=== PATIENT | male | born 1975 | race Caucasian/White ===

== ENCOUNTER 2017-11-02 11:14 | Outpatient (RCR) | payer MEDICAID, SELFPAY ==
[2017-11-02 12:16] VITALS: BP 155/108; PULSE 85; RESP 16; TEMP 35.7; BMI 72.1
--- NOTE | 2017-11-02 17:54 | PCM.WC.HP ---
(1) Super obesity Status: Acute Current Visit: Yes Code(s): E66.9 - Obesity, unspecified (2) Chronic acquired lymphedema Status: Acute Current Visit: Yes Code(s): I89.0 - Lymphedema, not elsewhere classified (3) CHF (congestive heart failure) Status: Acute Current Visit: Yes Code(s): I50.9 - Heart failure, unspecified (4) CAD (coronary artery disease) Status: Acute Current Visit: No Code(s): I25.10 - Atherosclerotic heart disease of [place] coronary artery without angina pectoris (5) Sleep apnea Status: Acute Current Visit: No Code(s): G47.30 - Sleep apnea, unspecified (6) Peripheral arterial disease Status: Acute Current Visit: Yes Code(s): I73.9 - Peripheral vascular disease, unspecified History of Present Illness Date of Service: 11/02/17 Chief Complaint: Chronic severe bilateral lower extremity swelling with ? ulcers. History of Wound: Mr. Bobby is a 42yo with Morbid Obesity and Chronic severe bilateral lymph edema who is here to establish care/transfer care. He previosuly followed up at the wound center in [facility] however, this was recently closed. He reports a history of lymphedema spanning several years and has tried 3m wraps and specialized compression stockings without much improvement. He states that attempts had been made in the past to get a lymphedema pump however, for unclear reasons, this has not been possible. During the course of his lymphedema, he has had several ulcers which have been managed at the wound center. Most recent per patient was a copule of weeks ago and it was managed with aquacel silver. He does not recollect any recent venous or vascular studies done. He denies prior follow up with a vascular or vein specialist. He denies any acute complaints at this time. Past Medical History Allergies/Adverse Reactions: Allergies Penicillins Allergy (Verified 11/02/17 12:45) Unknown Home Medications: Ambulatory Orders Medication Instructions Recorded ALPRAZolam [Xanax] 0.125 mg PO TID PRN PRN 11/02/17 Furosemide [Lasix] mg PO DAILY 11/02/17 Hydrocodone Bitart/Apap 5-325 1 tablet PO Q6H PRN PRN 11/02/17 [[place] 5MG-325MG] Meloxicam [Mobic] mg PO 11/02/17 Omeprazole [Prilosec] 20 mg PO DAILY 11/02/17 Sertraline HCl [Zoloft] mg PO DAILY 11/02/17 Smoking Status: Never smoker Review of Systems Constitutional: Denies: Anorexia, Chills, Fever Eyes: Denies: Blurred vision, Pain, Redness HEENT: Denies: Difficulty Hearing, Difficulty Swallowing Cardiovascular: Denies: Chest Pain, Chest Tightness Respiratory: Denies: Cough, Hemoptysis Gastrointestinal: Denies: Hematemesis, Vomiting Skin: Denies: Jaundice Neurological: Denies: Change in Speech, Difficulty swallowing, Tremor - Physical Exam Vital Signs Temp Pulse Resp BP 96.2 F L 85 16 155/108 H 11/02/17 12:16 11/02/17 12:16 11/02/17 12:16 11/02/17 12:16 General: Alert, Oriented x3, Cooperative HEENT: Atraumatic, Normocephalic Oral: Moist Mucosa Neck: Supple Lungs: Normal air movement Cardiovascular: Regular rate, Regular Rhythm, Normal S1, Normal S2 Abdomen: Non Tender, Obese, - - Umbilical hernia Extremities: No cyanosis, Edema Wound Measurements and Assessment WC - Nurse 1 - General Ulcer Measurement Start: 11/02/17 11:46 Freq: Status: Active Protocol: Activity Type Activity Date Activity User E-Sign Co-Sign Detail Recorded Client Recorded Date Recorded By Document 11/02/17 12:16 [facility] [id number] 11/02/17 12:34 [facility] 11/02/17 12:16 Wound Center Nurse 1 [Ulcer Assessment] #1- BLE LYMPHEDEMA -Combined with other wound No [Edema Assessment] -Lower Limb Edema Present Yes -Right Calf (cm) 80 -Right Ankle (cm) 54.5 -Left Calf (cm) 87 -Left Ankle (cm) 56 Neurological: Cranial nerves II-XII grossly intact Debridement Note No debridement was completed today Assessment/Plan Active Problems Chronic acquired lymphedema (Acute) CHF (congestive heart failure) (Acute) Peripheral arterial disease (Acute) Super obesity (Acute) Assessment: Chronic severe bilateral lymphedema. Supermorbid Obesity. Plan: Mr. Bobby has severe bilateral chronic lyphmedema complicated by his super obesity. He apparently has had recurrent lower extremity ulcers however none was obviously present at this time. Due to his lower extremity anatomy, he may as well have an ulcer however as stated earlier, none apparent. I will order vascular and venous studies as patient states that he has had none recently. Records requested from previous wound center. Will refer to a Vascular/vein specialist. I believe patient might benefit from a lymphedema pump. Bilteral standard 3M wraps for now. Follow up on monday for a nurse visit. Follow up in 1 week with me.
--- NOTE | 2017-11-02 18:05 | HP.PCM_ITS ---
(1) Super obesity Status: Acute Current Visit: Yes Code(s): E66.9 - Obesity, unspecified (2) Chronic acquired lymphedema Status: Acute Current Visit: Yes Code(s): I89.0 - Lymphedema, not elsewhere classified (3) CHF (congestive heart failure) Status: Acute Current Visit: Yes Code(s): I50.9 - Heart failure, unspecified (4) CAD (coronary artery disease) Status: Acute Current Visit: No Code(s): I25.10 - Atherosclerotic heart disease of [place] coronary artery without angina pectoris (5) Sleep apnea Status: Acute Current Visit: No Code(s): G47.30 - Sleep apnea, unspecified (6) Peripheral arterial disease Status: Acute Current Visit: Yes Code(s): I73.9 - Peripheral vascular disease, unspecified History of Present Illness Date of Service: 11/02/17 Chief Complaint: Chronic severe bilateral lower extremity swelling with ? ulcers. History of Wound: Mr. Bobby is a 42yo with Morbid Obesity and Chronic severe bilateral lymph edema who is here to establish care/transfer care. He previosuly followed up at the wound center in [facility] however, this was recently closed. He reports a history of lymphedema spanning several years and has tried 3m wraps and specialized compression stockings without much improvement. He states that attempts had been made in the past to get a lymphedema pump however, for unclear reasons, this has not been possible. During the course of his lymphedema, he has had several ulcers which have been managed at the wound center. Most recent per patient was a copule of weeks ago and it was managed with aquacel silver. He does not recollect any recent venous or vascular studies done. He denies prior follow up with a vascular or vein specialist. He denies any acute complaints at this time. Past Medical History Allergies/Adverse Reactions: Allergies Penicillins Allergy (Verified 11/02/17 12:45) Unknown Home Medications: Ambulatory Orders Medication Instructions Recorded ALPRAZolam [Xanax] 0.125 mg PO TID PRN PRN 11/02/17 Furosemide [Lasix] mg PO DAILY 11/02/17 Hydrocodone Bitart/Apap 5-325 1 tablet PO Q6H PRN PRN 11/02/17 [[place] 5MG-325MG] Meloxicam [Mobic] mg PO 11/02/17 Omeprazole [Prilosec] 20 mg PO DAILY 11/02/17 Sertraline HCl [Zoloft] mg PO DAILY 11/02/17 Smoking Status: Never smoker Review of Systems Constitutional: Denies: Anorexia, Chills, Fever Eyes: Denies: Blurred vision, Pain, Redness HEENT: Denies: Difficulty Hearing, Difficulty Swallowing Cardiovascular: Denies: Chest Pain, Chest Tightness Respiratory: Denies: Cough, Hemoptysis Gastrointestinal: Denies: Hematemesis, Vomiting Skin: Denies: Jaundice Neurological: Denies: Change in Speech, Difficulty swallowing, Tremor - Physical Exam Vital Signs Temp Pulse Resp BP 96.2 F L 85 16 155/108 H 11/02/17 12:16 11/02/17 12:16 11/02/17 12:16 11/02/17 12:16 General: Alert, Oriented x3, Cooperative HEENT: Atraumatic, Normocephalic Oral: Moist Mucosa Neck: Supple Lungs: Normal air movement Cardiovascular: Regular rate, Regular Rhythm, Normal S1, Normal S2 Abdomen: Non Tender, Obese, - - Umbilical hernia Extremities: No cyanosis, Edema Wound Measurements and Assessment WC - Nurse 1 - General Ulcer Measurement Start: 11/02/17 11:46 Freq: Status: Active Protocol: Activity Type Activity Date Activity User E-Sign Co-Sign Detail Recorded Client Recorded Date Recorded By Document 11/02/17 12:16 [facility] [id number] 11/02/17 12:34 [facility] 11/02/17 12:16 Wound Center Nurse 1 [Ulcer Assessment] #1- BLE LYMPHEDEMA -Combined with other wound No [Edema Assessment] -Lower Limb Edema Present Yes -Right Calf (cm) 80 -Right Ankle (cm) 54.5 -Left Calf (cm) 87 -Left Ankle (cm) 56 Neurological: Cranial nerves II-XII grossly intact Debridement Note No debridement was completed today Assessment/Plan Active Problems Chronic acquired lymphedema (Acute) CHF (congestive heart failure) (Acute) Peripheral arterial disease (Acute) Super obesity (Acute) Assessment: Chronic severe bilateral lymphedema. Supermorbid Obesity. Plan: Mr. Bobby has severe bilateral chronic lyphmedema complicated by his super obesity. He apparently has had recurrent lower extremity ulcers however none was obviously present at this time. Due to his lower extremity anatomy, he may as well have an ulcer however as stated earlier, none apparent. I will order vascular and venous studies as patient states that he has had none recently. Records requested from previous wound center. Will refer to a Vascular/vein specialist. I believe patient might benefit from a lymphedema pump. Bilteral standard 3M wraps for now. Follow up on monday for a nurse visit. Follow up in 1 week with me.
== END 2017-11-08 23:59 ==
LOC: WC 11:14
PROVIDERS: Visit Provider Internal Medicine
DX: I73.9 Peripheral vascular disease, unspecified (principal); I89.0 Lymphedema, not elsewhere classified; E66.01 Morbid (severe) obesity due to excess calories; Z68.45 Body mass index [BMI] 70 or greater, adult; Z71.3 Dietary counseling and surveillance; I50.9 Heart failure, unspecified; I25.10 Atherosclerotic heart disease of native coronary artery without angina pectoris; G47.30 Sleep apnea, unspecified; M79.89 Other specified soft tissue disorders; Z79.899 Other long term (current) drug therapy
CPT/HCPCS: 29581; 99204; G0463

== ENCOUNTER 2017-11-16 12:00 | Outpatient (RCR) | payer MEDICAID, SELFPAY ==
[2017-11-09 01:16] VITALS: PULSE 85; RESP 16; TEMP 35.7
[2017-11-09 08:41] VITALS: BP 140/82; PULSE 91; RESP 20; TEMP 36.4
--- NOTE | 2017-11-09 16:40 | PCM.WC.PN ---
(1) Ulcer of left lower extremity Status: Acute Current Visit: Yes Qualifiers: Non-pressure ulcer stage: limited to breakdown of skin Qualified Code(s): L97.921 - Non-pressure chronic ulcer of unspecified part of left lower leg limited to breakdown of skin Code(s): L97.929 - Non-pressure chronic ulcer of unspecified part of left lower leg with unspecified severity (2) Chronic acquired lymphedema Status: Acute Current Visit: No Code(s): I89.0 - Lymphedema, not elsewhere classified (3) Super obesity Status: Acute Current Visit: No Code(s): E66.9 - Obesity, unspecified Type of Wound Date of Service: 11/09/17 Chief Complaint: Chronic severe bilateral lower extremity swelling with ? ulcers. History of Wound: Mr. Bobby is a 42yo with Morbid Obesity and Chronic severe bilateral lymph edema who is here to establish care/transfer care. He previosuly followed up at the wound center in [facility] however, this was recently closed. He reports a history of lymphedema spanning several years and has tried 3m wraps and specialized compression stockings without much improvement. He states that attempts had been made in the past to get a lymphedema pump however, for unclear reasons, this has not been possible. During the course of his lymphedema, he has had several ulcers which have been managed at the wound center. Most recent per patient was a copule of weeks ago and it was managed with aquacel silver. He does not recollect any recent venous or vascular studies done. He denies prior follow up with a vascular or vein specialist. He denies any acute complaints at this time. Progress of Wound: New left lower extremity ulcer noted from previous scabbed area. - Physical Exam Vital Signs Temp Pulse Resp BP 97.5 F L 91 20 H 140/82 H 11/09/17 08:41 11/09/17 08:41 11/09/17 08:41 11/09/17 08:41 General: Alert, Oriented x3, Cooperative, No apparent distress HEENT: Atraumatic, Normocephalic Oral: Moist Mucosa Neck: Supple Lungs: Normal air movement Cardiovascular: Regular rate Abdomen: Obese Extremities: Edema Skin: Ulcer/ Wound Wound Measurements and Assessment WC - Nurse 1 - General Ulcer Measurement Start: 11/09/17 08:41 Freq: Status: Active Protocol: Activity Type Activity Date Activity User E-Sign Co-Sign Detail Recorded Client Recorded Date Recorded By Document 11/09/17 08:41 RB [id number] 11/09/17 08:52 RB 11/09/17 08:41 Wound Center Nurse 1 [Edema Assessment] -Lower Limb Edema Present Yes -Right Calf (cm) 70.5 -Right Ankle (cm) 43.5 -Left Calf (cm) 85.5 -Left Ankle (cm) 54.5 Neurological: Cranial nerves II-XII grossly intact Psych/Mental Status: Normal Affect Debridement Note Wound debrided: Left Lower extremity circumferental ulcer Wound Grade/Stage: Stage I Type of Debridement: Excisional debridement Anesthesia Used: 4% Lidocaine Solution Depth: Down to and including healthy tissue Percentage of wound debrided: 100 Instrument Used: 5mm curette Tissue Removed: Slough and biofilm Severity: Limited To Skin Breakdown Amount of bleeding with debridement: Mild Bleeding Controlled with: Pressure Patient tolerated procedure well Assessment/Plan Active Problems Ulcer of left lower extremity (Acute) Assessment: Chronic severe bilateral lymphedema. Supermorbid Obesity. Left lower extremity ulcer Plan: New opening of a previously scabbed left lower extremity ulcer. Significant foul smelling discharge noted between skin folds of left lower extremity. Cultures taken and debridement done as documented above. Awaiting vascular and venous studies. Also working on referral to a vein/vascular specailist. However, i believe patient also has a component of Lipedema. Aquacel with xeroform covering over ulcerated area. Continue 3M wraps for now. Will initiate process for a lymphedema pump and also referral to a lymphedema clinic. Hygeine discussed. High protein diet/ supplements. Elevate lower extremity when sitted. Follow up in 1 week.
[2017-11-16 12:50] VITALS: BP 162/77; PULSE 85; RESP 18; TEMP 37.2
--- NOTE | 2017-11-16 13:47 | WC ---
instructed per Josselin Henson Rn to help pt with socks and shoes and pt will come back monda y for nurse visit a nd will reschedule vasular studies per self,
--- NOTE | 2017-11-16 15:23 | PCM.WC.PN ---
(1) Ulcer of left lower extremity Status: Acute Current Visit: No Qualifiers: Non-pressure ulcer stage: limited to breakdown of skin Qualified Code(s): L97.921 - Non-pressure chronic ulcer of unspecified part of left lower leg limited to breakdown of skin Code(s): L97.929 - Non-pressure chronic ulcer of unspecified part of left lower leg with unspecified severity (2) Chronic acquired lymphedema Status: Acute Current Visit: Yes Code(s): I89.0 - Lymphedema, not elsewhere classified (3) Super obesity Status: Acute Current Visit: Yes Code(s): E66.9 - Obesity, unspecified Type of Wound Date of Service: 11/16/17 Chief Complaint: Chronic severe bilateral lower extremity swelling with ? ulcers. History of Wound: Mr. Bobby is a 42yo with Morbid Obesity and Chronic severe bilateral lymph edema who is here to establish care/transfer care. He previosuly followed up at the wound center in [facility] however, this was recently closed. He reports a history of lymphedema spanning several years and has tried 3m wraps and specialized compression stockings without much improvement. He states that attempts had been made in the past to get a lymphedema pump however, for unclear reasons, this has not been possible. During the course of his lymphedema, he has had several ulcers which have been managed at the wound center. Most recent per patient was a copule of weeks ago and it was managed with aquacel silver. He does not recollect any recent venous or vascular studies done. He denies prior follow up with a vascular or vein specialist. He denies any acute complaints at this time. Progress of Wound: No significant changes. - Physical Exam Vital Signs Temp Pulse Resp BP 98.9 F 85 18 162/77 H 11/16/17 12:50 11/16/17 12:50 11/16/17 12:50 11/16/17 12:50 General: Alert, Oriented x3, Cooperative, No apparent distress HEENT: Atraumatic, Normocephalic Oral: Moist Mucosa Neck: Supple Lungs: Normal air movement Cardiovascular: Regular rate Extremities: No cyanosis, Edema Wound Measurements and Assessment WC - Nurse 1 - General Ulcer Measurement Start: 11/09/17 08:41 Freq: Status: Active Protocol: Activity Type Activity Date Activity User E-Sign Co-Sign Detail Recorded Client Recorded Date Recorded By Document 11/16/17 12:50 [facility] [id number] 11/16/17 13:03 [facility] 11/16/17 12:50 Wound Center Nurse 1 [Edema Assessment] -Lower Limb Edema Present Yes -Right Calf (cm) 72.3 -Right Ankle (cm) 47.4 -Left Calf (cm) 85.5 -Left Ankle (cm) 52.2 Neurological: Cranial nerves II-XII grossly intact Psych/Mental Status: Normal Affect Debridement Note No debridement was completed today Assessment/Plan Active Problems Chronic acquired lymphedema (Acute) Super obesity (Acute) Assessment: Chronic severe bilateral lymphedema. Supermorbid Obesity. Left lower extremity ulcer Plan: No significant changes in the past week. No ulcers appreciated today however, again this can not be ruled out due to his anatomy. Some reduction in edema size. Most definitely a component of lipedema. Cultures taken at last visit, grew mixed organisms. Will start on ciprofloxacin and flagyl based on sensitivity. Due to his sinificant and chronic lymphedema, i believe patient will be better suited at a lymphedema clinic and a vein spcialist while the [facility] handles any open wounds. Xeroform to skin surface. No 3M wraps available today. Advised to come in for a nurse visit to have his lower extremities wrapped. High protein diet/ supplements. Elevate lower extremity when sitted. Follow up in 1 week.
--- NOTE | 2017-11-16 15:36 | PN.PCM_ITS ---
(1) Ulcer of left lower extremity Status: Acute Current Visit: No Qualifiers: Non-pressure ulcer stage: limited to breakdown of skin Qualified Code(s): L97.921 - Non-pressure chronic ulcer of unspecified part of left lower leg limited to breakdown of skin Code(s): L97.929 - Non-pressure chronic ulcer of unspecified part of left lower leg with unspecified severity (2) Chronic acquired lymphedema Status: Acute Current Visit: Yes Code(s): I89.0 - Lymphedema, not elsewhere classified (3) Super obesity Status: Acute Current Visit: Yes Code(s): E66.9 - Obesity, unspecified Type of Wound Date of Service: 11/16/17 Chief Complaint: Chronic severe bilateral lower extremity swelling with ? ulcers. History of Wound: Mr. Bobby is a 42yo with Morbid Obesity and Chronic severe bilateral lymph edema who is here to establish care/transfer care. He previosuly followed up at the wound center in [facility] however, this was recently closed. He reports a history of lymphedema spanning several years and has tried 3m wraps and specialized compression stockings without much improvement. He states that attempts had been made in the past to get a lymphedema pump however, for unclear reasons, this has not been possible. During the course of his lymphedema, he has had several ulcers which have been managed at the wound center. Most recent per patient was a copule of weeks ago and it was managed with aquacel silver. He does not recollect any recent venous or vascular studies done. He denies prior follow up with a vascular or vein specialist. He denies any acute complaints at this time. Progress of Wound: No significant changes. - Physical Exam Vital Signs Temp Pulse Resp BP 98.9 F 85 18 162/77 H 11/16/17 12:50 11/16/17 12:50 11/16/17 12:50 11/16/17 12:50 General: Alert, Oriented x3, Cooperative, No apparent distress HEENT: Atraumatic, Normocephalic Oral: Moist Mucosa Neck: Supple Lungs: Normal air movement Cardiovascular: Regular rate Extremities: No cyanosis, Edema Wound Measurements and Assessment WC - Nurse 1 - General Ulcer Measurement Start: 11/09/17 08:41 Freq: Status: Active Protocol: Activity Type Activity Date Activity User E-Sign Co-Sign Detail Recorded Client Recorded Date Recorded By Document 11/16/17 12:50 [facility] [id number] 11/16/17 13:03 [facility] 11/16/17 12:50 Wound Center Nurse 1 [Edema Assessment] -Lower Limb Edema Present Yes -Right Calf (cm) 72.3 -Right Ankle (cm) 47.4 -Left Calf (cm) 85.5 -Left Ankle (cm) 52.2 Neurological: Cranial nerves II-XII grossly intact Psych/Mental Status: Normal Affect Debridement Note No debridement was completed today Assessment/Plan Active Problems Chronic acquired lymphedema (Acute) Super obesity (Acute) Assessment: Chronic severe bilateral lymphedema. Supermorbid Obesity. Left lower extremity ulcer Plan: No significant changes in the past week. No ulcers appreciated today however, again this can not be ruled out due to his anatomy. Some reduction in edema size. Most definitely a component of lipedema. Cultures taken at last visit, grew mixed organisms. Will start on ciprofloxacin and flagyl based on sensitivity. Due to his sinificant and chronic lymphedema, i believe patient will be better suited at a lymphedema clinic and a vein spcialist while the [facility] handles any open wounds. Xeroform to skin surface. No 3M wraps available today. Advised to come in for a nurse visit to have his lower extremities wrapped. High protein diet/ supplements. Elevate lower extremity when sitted. Follow up in 1 week.
[2017-11-21 11:35] VITALS: BP 148/103; PULSE 96; RESP 22; TEMP 36.1
== END 2017-12-09 23:59 ==
LOC: WC 12:00
PROVIDERS: Visit Provider Internal Medicine
DX: L97.821 Non-pressure chronic ulcer of other part of left lower leg limited to breakdown of skin (principal); I89.0 Lymphedema, not elsewhere classified; E66.01 Morbid (severe) obesity due to excess calories; Z68.45 Body mass index [BMI] 70 or greater, adult
CPT/HCPCS: 11042; 29581; 87070; 87075; 87077; 87101; 87186; 87205; 99202; 99213; G0463

== ENCOUNTER 2017-12-12 10:22 | Outpatient (RCR) | payer MEDICAID, SELFPAY ==
--- NOTE | 2017-12-14 09:24 | HP.OTEVAL_ITS ---
Patient's Visit Information AYLA JACKSON is a 42 year old M, referred to Occupational Therapy by Brian Johnson MD,, with a diagnosis of LE lymphedema. Date of Evaluation: 12/12/17 Occupational Therapist: Haydee Starks, DEYVIR/Chelsea, CHT - Subjective Subjective: Pt states it has been awhile from when he has had a compression socks- pt states he was seen at the wound center for 3M wraps- pt states he was dx with CHF in his 30s and this is when he started with the lymphedema- pt states he was working with [employer] in the past- but has not had a new set of socks for over a year- pt states at this time he is working. pt states no hx of lymphedema in his family- Pt states his and daughter are RNs and can assist him with wraps to his LE. - Pain left LE 5 Pain Intensity Range: 3, 8 right LE 5 Pain Intensity Range: 1, 3, 8 - Objective Objective/Observation: pt amb with one crutch- demo with pendulum belly- hips externally rotated- with short shuffle steps- pt amb short distance and would stop for a break- - Lymphedema (Circumferential Measure) Ankle: right 50cm left 55cm Lower calf: right 47cm 60cm Largest calf: right 78cm 80cm Below knee: right 76 cm 73cm Above knee: right 100cm 91cm Mid-thigh: right 137 left 127cm - Lower Limb Functional Index Lower Extremity Functional Score: 11 - Rehabilitation General Assessment: Pt demo with multiple large skin folds and masses. Dry thickened skin with pebbly appearence -pitted and darkened- right LE without compression and left with 3M wrap- with appearence of LE size qustioning elephantitis/lymphedema. Pt demo a need for compression 40-50mmHg to assist in mtg of LE limb size- The 3M does not produce enough compression to be effective for pt at this time. pt will need increased compression by alternative compression garments- pt was given compression print out of alternative compression devices - advised to contact his insurance company to see where he needs to order DME from. Pt demo understanding. Pt was advised that it was possible insurance would not cover the garments and it was in his best interest in order to mtg his condition to purchase the garment alternative himself. Pt demo understanding. I expressed to pt that [facility] is not a DME supplier and are not able to bill his insurance or purchase the rec'd compression devices. pt demo understanding that he would need to contact his insurance company. Once pt is able to purchase the compression devices pt to return with family to ensure proper donning/doffing of garments. Due to pts condition he may need skilled facility that would work daily with his lymphedema and use of lymphadema pumps. Rehabilitation Potential: Questionable - Anticipated Interventions Anticipated Interventions: Education re assistive Equipment, Education re Diagnosis, Education re Life-long lymphedema Management, Education re Correct Donning Tech,Care&Wearing Sched Comp Garments, Caregiver Training - Visit Plan General Plan: Pt demo with multiple large skin folds and masses. Dry thickened skin with pebbly appearence -pitted and darkened- right LE without compression and left with 3M wrap- with appearence of LE size qustioning elephantitis/ lymphedema. Pt demo a need for compression 30-40/40-50mmHg to assist in mtg of LE limb size- The 3M does not produce enough compression to be effective for pt at this time. pt will need increased compression by alternative compression garments- pt was given compression print out of alternative compression devices - advised to contact his insurance company to see where he needs to order DME from. Pt demo understanding. Pt was advised that it was possible insurance would not cover the garments and it was in his best interest in order to mtg his condition to purchase the garment alternative himself. Pt demo understanding. I expressed to pt that [facility] is not a DME supplier and are not able to bill his insurance or purchase the rec'd compression devices. pt demo understanding that he would need to contact his insurance company. Once pt is able to purchase the compression devices pt to return with family to ensure proper donning/doffing of garments. TEXT: Thank you for the opportunity to evaluate your patient. For Medicare and Medicare HMO plans, please review the plan of care and approve it. It will need to be FAXED BACK to us at [phone] for Medicare purposes. Please let me know if there are questions or concerns regarding this plan of care. Physician Signature: Date:
--- NOTE | 2018-05-08 09:14 | HP.OT.NRP ---
HP - Discharge Summary - Patient Information AYLA JACKSON was seen in my office for initial evaluation on 12/12/17. The following Plan of Care was established for this patient: - Anticipated Interventions Anticipated Interventions: Education re assistive Equipment, Education re Diagnosis, Education re Life-long lymphedema Management, Education re Correct Donning Tech,Care&Wearing Sched Comp Garments, Caregiver Training This patient was last seen in our office 12/12/17. Pertinent comments regarding their Occupational therapy will appear below: Pt was seen for inital OT eval only- pt did not return for follow up visit and due to time laps in tx pt d/c at this time. At this point I will be discontinuing this patient from occupational therapy. I would be happy to see this patient again in the future if found appropriate by the physician. Thank you! Haydee Starks, OTR/L, CHT
== END 2017-12-12 19:00 | disposition home or self-care (01) ==
LOC: OT 10:22
PROVIDERS: Family Provider Internal Medicine; PCP Internal Medicine; Visit Provider Internal Medicine
DX: I89.0 Lymphedema, not elsewhere classified (principal)
CPT/HCPCS: 97166

== ENCOUNTER 2018-08-09 13:00 | Outpatient (RCR) | payer MEDICAID, SELFPAY ==
[2018-07-12 13:13] VITALS: BP 160/93; PULSE 80; RESP 18; TEMP 37.3; BMI 75.4
--- NOTE | 2018-07-12 17:05 | PCM.WC.HP ---
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 Status: Acute Current Visit: Yes Code(s): L97.922 - Non-pressure chronic ulcer of unspecified part of left lower leg with fat layer exposed (2) Chronic acquired lymphedema Status: Acute Current Visit: Yes Code(s): I89.0 - Lymphedema, not elsewhere classified (3) Chronic diastolic heart failure Status: Chronic Current Visit: No Code(s): I50.32 - Chronic diastolic (congestive) heart failure (4) Super obesity Status: Chronic Current Visit: Yes Code(s): E66.9 - Obesity, unspecified (5) Pulmonary embolism Status: Suspected Current Visit: No Code(s): I26.99 - Other pulmonary embolism without acute cor pulmonale (6) Essential (primary) hypertension Status: Chronic Current Visit: No Code(s): I10 - Essential (primary) hypertension History of Present Illness Date of Service: 07/12/18 Chief Complaint: Chronic severe bilateral lower extremity swelling with two nonhealing ulcers left lower extremity. History of Wound: Mr. Bobby is a 42yo with Morbid Obesity and Chronic severe bilateral lymph edema who who presents to the wound center again for wounds of the left lower extremity. He states that his wounds have been slowly opening on his left lower extremity over the last month or so. He has been using Aquacel silver that he had left over. He states that he was previously seen at the lymphedema clinic and they told him that they could do nothing for him until after he gets his bariatric surgery. Records are not available for review at this time. He is using Desmond wraps and compression wraps to his lower extremities from the knee down for his lymphedema, but due to his anatomy is unable to wrap his thigh lymphedema which is where the ulcers are on the left lower extremity. He does note that he had attempted to have vascular studies in the past, but they are unable to be performed due to his body habitus. He denies any systemic or localized signs of infection at this time. He does state that there is some serous drainage on his dressing changes. The patient otherwise denies any fever, chills, nausea, vomiting, shortness of breath, chest pain or pressure, palpitations, orthopnea, lower extremity edema, syncope or presyncopal episodes. Past Medical History Past Medical History: Chronic Problems (Last Updated 07/10/18 @ 14:27 by Ingrid Hanley) Chronic diastolic heart failure (Chronic) Super obesity (Chronic) Essential (primary) hypertension (Chronic) Allergies/Adverse Reactions: Allergies Penicillins Allergy (Verified 07/05/18 09:03) Unknown Home Medications: Ambulatory Orders Medication Instructions Recorded ALPRAZolam [Xanax] 0.125 mg PO TID PRN PRN 11/02/17 sertraline 100 mg tablet 150 mg PO QDAY #180 tab 02/28/18 furosemide 20 mg tablet 20 mg PO BID #90 tab 05/18/18 lisinopril 20 mg tablet 20 mg PO QDAY #30 tab 05/18/18 omeprazole 20 mg capsule,delayed 20 mg PO DAILY #90 cap 05/18/18 release rivaroxaban 20 mg tablet 20 mg PO DAILY #60 tab 05/18/18 aspirin 81 mg chewable tablet 81 mg PO DAILY 06/15/18 atorvastatin 40 mg tablet 40 mg PO DAILY #90 tab 06/15/18 isosorbide dinitrate 5 mg tablet 5 mg PO BID #60 tab 06/15/18 Smoking Status: Never smoker Review of Systems Constitutional: Denies: Chills, Fever, Weight Change Eyes: Denies: Pain, Vision Change HEENT: Denies: Difficulty Hearing, Difficulty Swallowing, Sinus Congestion Cardiovascular: Reports: Edema - See HPI chronic lymphedema severe. Denies: Chest Pain, Palpitations Respiratory: Denies: Cough, Shortness of Breath Gastrointestinal: Denies: Diarrhea, Nausea, Vomiting Genitourinary: Denies: Dysuria, Hematuria Skin: Reports: Wounds - See HPI Endocrine: Denies: Heat/ Cold Intolerance, Polydipsia, Polyuria Hematologic/ Lymphatic: Denies: Easy Bruising, Easy Bleeding - Physical Exam Vital Signs Temp Pulse Resp BP 99.1 F 80 18 160/93 H 07/12/18 13:13 07/12/18 13:13 07/12/18 13:13 07/12/18 13:13 General: Alert, Oriented x3, Cooperative, No apparent distress HEENT: PERRLA, EOMI Lungs: Clear to auscultation, Normal air movement Cardiovascular: Regular rate, Regular Rhythm Abdomen: Bowel Sounds Present, Soft, Non Tender, Non-Distended, Obese Extremities: Edema - Severe lymphedema present bilateral lower extremities, chronic vascular changes present bilateral Skin: Ulcer/ Wound - Thigh wounds with adherent slough present superimposed upon his severe chronic lymphedema, no signs of infection at this time, mild serous drainage, no purulent drainage or foul smell Wound Measurements and Assessment WC - Nurse 1 - General Ulcer Measurement Start: 07/12/18 13:13 Freq: Status: Active Protocol: Activity Type Activity Date Activity User E-Sign Co-Sign Detail Recorded Client Recorded Date Recorded By Document 07/12/18 13:13 [id number] 07/12/18 13:30 07/12/18 13:13 Wound Center Nurse 1 [Ulcer Assessment] #3 LEFT POST. THIGH -Combined with other wound No -Current Size (cm) - Length 3.5 -Current Size (cm) - Width 3.5 -Current Size (cm) - Depth 0.1 -Total Square Cm 12.25 -Date of Last Picture (Recall this 07/12/18 field) -Photo Taken Yes -Epithelialization None Present -Tunneling No -Undermining/Tunneling No -Circular Undermining No -Exudate Amt Medium (34-66%) -Exudate Type Yellow/Green -Wound Margin Distinct, Outline Attached -Granulation Amt None Present (0 %) -Slough/Fibrin Yes -Necrosis Amt Large (67-100%) -Necrotic Tissue Type Adherent Slough -Structure Exposed None/Limited to Skin Breakdown -Texture (Josephine-wound Skin Appearance) No Abnormality Assessed -Moisture (Josephine-wound Skin Appearance No Abnormality ) Assessed -Color (Josephine-wound Skin Appearance) No Abnormality Assessed -Temperature (Josephine-wound Skin No Abnormality Appearance) (Pt Warm) -Tenderness on Palpation (Josephine-wound No Skin Appearance) -Ulcer Cleansing Rinsed/ Irrigated with Saline -Foul Odor after Cleansing No -Anesthetic Used 4% Lidocaine Solution #2 LEFT MEDIAL THIGH CLUSTER -Combined with other wound No -Current Size (cm) - Length 1.9 -Current Size (cm) - Width 1.9 -Current Size (cm) - Depth 0.1 -Total Square Cm 3.61 -Date of Last Picture (Recall this 07/12/18 field) -Photo Taken Yes -Epithelialization None Present -Tunneling No -Undermining/Tunneling No -Circular Undermining No -Exudate Amt Medium (34-66%) -Exudate Type Serous -Wound Margin Thickened -Granulation Amt Medium (34-66%) -Slough/Fibrin Yes -Necrosis Amt None Present (0 %) -Necrotic Tissue Type Adherent Slough -Texture (Josephine-wound Skin Appearance) No Abnormality Assessed -Moisture (Josephine-wound Skin Appearance Assessed ) Weeping -Color (Josephine-wound Skin Appearance) No Abnormality Assessed -Temperature (Josephine-wound Skin No Abnormality Appearance) (Pt Warm) -Tenderness on Palpation (Josephine-wound No Skin Appearance) -Ulcer Cleansing Rinsed/ Irrigated with Saline -Foul Odor after Cleansing No -Anesthetic Used 4% Lidocaine Solution [Edema Assessment] -Lower Limb Edema Present Yes WC - Nurse 2 - General Ulcer CM Notes Start: 07/12/18 13:13 Freq: Status: Active Protocol: Activity Type Activity Date Activity User E-Sign Co-Sign Detail Recorded Client Recorded Date Recorded By Document 07/12/18 14:12 [id number] 07/12/18 14:38 07/12/18 14:12 Wound Center Nurse 2 [Procedure/Treatment] #3 LEFT POST. THIGH -Time 14:33 -Correct Patient Yes -Correct Side, Site, Position Yes -Correct Procedure Yes -Procedure Performed Yes -Type of Procedure Debridement -Clinical Debridement Subcutaneous -Post Debridement Size (cm) - Length 3.6 -Post Debridement Size (cm) - Width 3.6 -Post Debridement Size (cm) - Depth 0.1 -Total Square Cm 12.96 -Wound/Ulcer Outcome Not Healed -Ulcer Cleansing Rinsed/ Irrigated with Saline -Foul Odor after Cleansing No -Bioengineered Tissue No -Topical Lidocaine (%) 4 -Bleeding Controlled with Pressure -Treatment Response Procedure Tolerated Well #2 LEFT MEDIAL THIGH CLUSTER -Time 14:34 -Correct Patient Yes -Correct Side, Site, Position Yes -Correct Procedure Yes -Procedure Performed Yes -Type of Procedure Debridement -Clinical Debridement Subcutaneous -Post Debridement Size (cm) - Length 2.0 -Post Debridement Size (cm) - Width 2.0 -Post Debridement Size (cm) - Depth 0.1 -Total Square Cm 4.00 -Wound/Ulcer Outcome Not Healed -Ulcer Cleansing Rinsed/ Irrigated with Saline -Foul Odor after Cleansing No -Bioengineered Tissue No -Topical Lidocaine (%) 4 -Bleeding Controlled with Pressure -Treatment Response Procedure Tolerated Well [See Physician Procedure note for Specifics] Pain Scale: 0-10 Numeric [Pain] -Is Patient Pain Free? Yes Musculoskeletal: No Muscle Wasting Neurological: Neuro grossly intact Psych/Mental Status: Normal Affect, Appropriate, Alert and oriented to time, place, person, mood and affect Debridement Note Post-Debridement Measurements/Treatment WC - Nurse 2 - General Ulcer CM Notes Start: 07/12/18 13:13 Freq: Status: Active Protocol: Activity Type Activity Date Activity User E-Sign Co-Sign Detail Recorded Client Recorded Date Recorded By Document 07/12/18 14:12 [id number] 07/12/18 14:38 07/12/18 14:12 Wound Center Nurse 2 #3 LEFT POST. THIGH -Time 14:33 -Correct Patient Yes -Correct Side, Site, Position Yes -Correct Procedure Yes -Procedure Performed Yes -Type of Procedure Debridement -Clinical Debridement Subcutaneous -Post Debridement Size (cm) - Length 3.6 -Post Debridement Size (cm) - Width 3.6 -Post Debridement Size (cm) - Depth 0.1 -Total Square Cm 12.96 -Wound/Ulcer Outcome Not Healed -Ulcer Cleansing Rinsed/ Irrigated with Saline -Foul Odor after Cleansing No -Bioengineered Tissue No -Topical Lidocaine (%) 4 -Bleeding Controlled with Pressure -Treatment Response Procedure Tolerated Well #2 LEFT MEDIAL THIGH CLUSTER -Time 14:34 -Correct Patient Yes -Correct Side, Site, Position Yes -Correct Procedure Yes -Procedure Performed Yes -Type of Procedure Debridement -Clinical Debridement Subcutaneous -Post Debridement Size (cm) - Length 2.0 -Post Debridement Size (cm) - Width 2.0 -Post Debridement Size (cm) - Depth 0.1 -Total Square Cm 4.00 -Wound/Ulcer Outcome Not Healed -Ulcer Cleansing Rinsed/ Irrigated with Saline -Foul Odor after Cleansing No -Bioengineered Tissue No -Topical Lidocaine (%) 4 -Bleeding Controlled with Pressure -Treatment Response Procedure Tolerated Well Pain Scale: 0-10 Numeric Is Patient Pain Free? Yes Wound debrided: Left thigh lymphedema ulcerations Laterality: Left Type of Debridement: Excisional debridement Anesthesia Used: 5% Lidocaine Gel Depth: in the subcutaneous layer Percentage of wound debrided: 100 Instrument Used: 5mm curette Tissue Removed: Slough and devitalized tissue Severity: Fat Layer Exposed Amount of bleeding with debridement: Mild Bleeding Controlled with: Pressure Patient tolerated procedure well Assessment/Plan Active Problems (Last Updated 07/10/18 @ 14:27 by Ingrid Hanley) Nonhealing ulcer of left lower extremity with fat layer exposed (Acute) Chronic acquired lymphedema (Acute) Super obesity (Chronic) Assessment: Chronic severe bilateral lymphedema. Supermorbid Obesity. Left lower extremity ulcer Plan: The patient was seen and examined at the wound center today and was updated on the plan of care. A subcutaneous debridement was performed today. That debridement was very difficult to perform in the wound center due to the patient's body habitus and the limitations of our facility. Wounds were unable to be appropriately visualized and debrided due to this. The patient tolerated the procedure well. The patients wound care will consist of: Aquasol silver dressings daily and as needed. Wound cultures were collected. For compression patient is to continue with compression stockings and Desmond wraps. Baseline bloodwork ordered. Patient educated on the importance of diet on wound healing and instructed to increase protein and vitamin C intake. Patient verbalized understanding. Patient will follow up at wound healing center in one week or sooner if needed. This note was generated with [employer] dictation software. It may contain incorrect words, spelling, and punctuation that were not noted in checking the note before signing. Code Visit Office Visits / Consults: [id number] OV L4 Est [id number]: [id number] Margarita subq tissue 20 sq cm/<
[2018-07-26 13:17] VITALS: BP 157/91; PULSE 84; RESP 20; TEMP 36.6; BMI 75.4
--- NOTE | 2018-07-26 14:13 | PN.PCM_ITS ---
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 Status: Acute Current Visit: Yes Code(s): L97.922 - Non-pressure chronic ulcer of unspecified part of left lower leg with fat layer exposed (2) Chronic acquired lymphedema Status: Acute Current Visit: Yes Code(s): I89.0 - Lymphedema, not elsewhere classified (3) Chronic diastolic heart failure Status: Chronic Current Visit: No Code(s): I50.32 - Chronic diastolic (congestive) heart failure (4) Super obesity Status: Chronic Current Visit: Yes Code(s): E66.9 - Obesity, unspecified (5) Pulmonary embolism Status: Suspected Current Visit: No Code(s): I26.99 - Other pulmonary embolism without acute cor pulmonale (6) Essential (primary) hypertension Status: Chronic Current Visit: No Code(s): I10 - Essential (primary) hypertension Type of Wound Date of Service: 07/26/18 Chief Complaint: Chronic severe bilateral lower extremity swelling with two nonhealing ulcers left lower extremity. History of Wound: Mr. Bobby is a 42yo with Morbid Obesity and Chronic severe bilateral lymph edema who who presents to the wound center again for wounds of the left lower extremity. He states that his wounds have been slowly opening on his left lower extremity over the last month or so. He has been using Aquacel silver that he had left over. He states that he was previously seen at the lymphedema clinic and they told him that they could do nothing for him until after he gets his bariatric surgery. Records are not available for review at this time. He is using Desmond wraps and compression wraps to his lower extremities from the knee down for his lymphedema, but due to his anatomy is unable to wrap his thigh lymphedema which is where the ulcers are on the left lower extremity. He does note that he had attempted to have vascular studies in the past, but they are unable to be performed due to his body habitus. He denies any systemic or localized signs of infection at this time. He does state that there is some serous drainage on his dressing changes. The patient otherwise denies any fever, chills, nausea, vomiting, shortness of breath, chest pain or pressure, palpitations, orthopnea, lower extremity edema, syncope or presyncopal episodes. Progress of Wound: Stable, patient completed course of clindamycin for a wound culture that grew proteus mirabilis and strep algalactae. Pt denies any signs of infection at this time. No increase in pain or drainage. - Physical Exam Vital Signs Temp Pulse Resp BP 97.8 F 84 20 H 157/91 H 07/26/18 13:17 07/26/18 13:17 07/26/18 13:17 07/26/18 13:17 General: Alert, Oriented x3, Cooperative, No apparent distress HEENT: Atraumatic Oral: Moist Mucosa Cardiovascular: Regular rate Abdomen: Obese Extremities: No clubbing, No cyanosis, Diminished Peripheral Pulses, Edema - bilateral lymphedema Skin: Ulcer/ Wound - left medial and posterior thigh ulcerations with adherant slough present, no signs of infection at this time, chronic venous changes present BLLE Wound Measurements and Assessment WC - Nurse 1 - General Ulcer Measurement Start: 07/12/18 13:13 Freq: Status: Active Protocol: Activity Type Activity Date Activity User E-Sign Co-Sign Detail Recorded Client Recorded Date Recorded By Document 07/26/18 13:17 [id number] 07/26/18 13:19 07/26/18 13:17 Wound Center Nurse 1 [Ulcer Assessment] #3 LEFT POST. THIGH -Combined with other wound No -Current Size (cm) - Length 2.1 -Current Size (cm) - Width 1.4 -Current Size (cm) - Depth 0.1 -Total Square Cm 2.94 -Photo Taken No -Epithelialization Small 1-33% -Tunneling No -Undermining/Tunneling No -Circular Undermining No -Exudate Amt None Present (0 %) -Wound Margin Distinct, Outline Attached -Granulation Amt Medium (34-66%) -Granulation Quality Pale Silver Firs -Slough/Fibrin Yes -Necrosis Amt None Present (0 %) -Necrotic Tissue Type Adherent Slough -Structure Exposed None/Limited to Skin Breakdown -Texture (Josephine-wound Skin Appearance) Scarring -Moisture (Josephine-wound Skin Appearance Dry/Scaly ) -Color (Josephine-wound Skin Appearance) No Abnormality Assessed -Temperature (Josephine-wound Skin No Abnormality Appearance) (Pt Warm) -Tenderness on Palpation (Josephine-wound No Skin Appearance) -Ulcer Cleansing Rinsed/ Irrigated with Saline -Foul Odor after Cleansing No -Anesthetic Used 4% Lidocaine Solution #2 LEFT MEDIAL THIGH CLUSTER -Combined with other wound No -Current Size (cm) - Length 1.4 -Current Size (cm) - Width 0.7 -Current Size (cm) - Depth 0.1 -Total Square Cm 0.98 -Photo Taken No -Epithelialization None Present -Tunneling No -Undermining/Tunneling No -Circular Undermining No -Exudate Amt Small (1-33%) -Exudate Type Serosanguineous -Wound Margin Distinct, Outline Attached -Granulation Amt Small (1-33%) -Granulation Quality Pale -Slough/Fibrin No -Necrosis Amt None Present (0 %) -Necrotic Tissue Type Adherent Slough -Structure Exposed None/Limited to Skin Breakdown -Texture (Josephine-wound Skin Appearance) Assessed Scarring -Moisture (Josephine-wound Skin Appearance No Abnormality ) Assessed -Color (Josephine-wound Skin Appearance) No Abnormality Assessed -Temperature (Josephine-wound Skin No Abnormality Appearance) (Pt Warm) -Tenderness on Palpation (Josephine-wound No Skin Appearance) -Ulcer Cleansing Rinsed/ Irrigated with Saline -Foul Odor after Cleansing No -Anesthetic Used 4% Lidocaine Solution [Edema Assessment] -Lower Limb Edema Present Yes WC - Nurse 2 - General Ulcer CM Notes Start: 07/12/18 13:13 Freq: Status: Active Protocol: Activity Type Activity Date Activity User E-Sign Co-Sign Detail Recorded Client Recorded Date Recorded By Document 07/26/18 13:39 [id number] 07/26/18 13:40 07/26/18 13:39 Wound Center Nurse 2 [Procedure/Treatment] #3 LEFT POST. THIGH -Time 13:39 -Correct Patient Yes -Correct Side, Site, Position Yes -Correct Procedure Yes -Procedure Performed Yes -Type of Procedure Debridement -Clinical Debridement Subcutaneous -Post Debridement Size (cm) - Length 2.2 -Post Debridement Size (cm) - Width 1.8 -Post Debridement Size (cm) - Depth 0.7 -Total Square Cm 3.96 -Wound/Ulcer Outcome Not Healed -Ulcer Cleansing Rinsed/ Irrigated with Saline -Foul Odor after Cleansing No -Bioengineered Tissue No -Topical Lidocaine (%) 4 -Bleeding Controlled with Pressure -Treatment Response Procedure Tolerated Well #2 LEFT MEDIAL THIGH CLUSTER -Time 13:39 -Correct Patient Yes -Correct Side, Site, Position Yes -Correct Procedure Yes -Procedure Performed Yes -Type of Procedure Debridement -Clinical Debridement Subcutaneous -Post Debridement Size (cm) - Length 1.6 -Post Debridement Size (cm) - Width 1.0 -Post Debridement Size (cm) - Depth 0.1 -Total Square Cm 1.60 -Wound/Ulcer Outcome Not Healed -Ulcer Cleansing Rinsed/ Irrigated with Saline -Foul Odor after Cleansing No -Bioengineered Tissue No -Topical Lidocaine (%) 4 -Bleeding Controlled with Pressure -Treatment Response Procedure Tolerated Well [See Physician Procedure note for Specifics] Pain Scale: 0-10 Numeric [Pain] -Is Patient Pain Free? Yes Neurological: Neuro grossly intact Psych/Mental Status: Normal Affect, Appropriate, Alert and oriented to time, place, person, mood and affect Debridement Note Post-Debridement Measurements/Treatment WC - Nurse 2 - General Ulcer CM Notes Start: 07/12/18 13:13 Freq: Status: Active Protocol: Activity Type Activity Date Activity User E-Sign Co-Sign Detail Recorded Client Recorded Date Recorded By Document 07/12/18 14:12 [id number] 07/12/18 14:38 TM Document 07/26/18 13:39 [id number] 07/26/18 13:40 TM 07/12/18 07/26/18 14:12 13:39 Wound Center Nurse 2 #3 LEFT POST. THIGH -Time 14:33 13:39 -Correct Patient Yes Yes -Correct Side, Site, Position Yes Yes -Correct Procedure Yes Yes -Procedure Performed Yes Yes -Type of Procedure Debridement Debridement -Clinical Debridement Subcutaneous Subcutaneous -Post Debridement Size (cm) - Length 3.6 2.2 -Post Debridement Size (cm) - Width 3.6 1.8 -Post Debridement Size (cm) - Depth 0.1 0.7 -Total Square Cm 12.96 3.96 -Wound/Ulcer Outcome Not Healed Not Healed -Ulcer Cleansing Rinsed/ Rinsed/ Irrigated with Irrigated with Saline Saline -Foul Odor after Cleansing No No -Bioengineered Tissue No No -Topical Lidocaine (%) 4 4 -Bleeding Controlled with Pressure Pressure -Treatment Response Procedure Procedure Tolerated Well Tolerated Well #2 LEFT MEDIAL THIGH CLUSTER -Time 14:34 13:39 -Correct Patient Yes Yes -Correct Side, Site, Position Yes Yes -Correct Procedure Yes Yes -Procedure Performed Yes Yes -Type of Procedure Debridement Debridement -Clinical Debridement Subcutaneous Subcutaneous -Post Debridement Size (cm) - Length 2.0 1.6 -Post Debridement Size (cm) - Width 2.0 1.0 -Post Debridement Size (cm) - Depth 0.1 0.1 -Total Square Cm 4.00 1.60 -Wound/Ulcer Outcome Not Healed Not Healed -Ulcer Cleansing Rinsed/ Rinsed/ Irrigated with Irrigated with Saline Saline -Foul Odor after Cleansing No No -Bioengineered Tissue No No -Topical Lidocaine (%) 4 4 -Bleeding Controlled with Pressure Pressure -Treatment Response Procedure Procedure Tolerated Well Tolerated Well Pain Scale: 0-10 Numeric Is Patient Pain Free? Yes Yes Wound debrided: left medial and posterior ulcers Laterality: Left Type of Debridement: Excisional debridement Anesthesia Used: 5% Lidocaine Gel Depth: in the subcutaneous layer Percentage of wound debrided: 100 Instrument Used: 7mm curette Tissue Removed: slough and devitalized tissue Severity: Fat Layer Exposed Amount of bleeding with debridement: Mild Bleeding Controlled with: Pressure Patient tolerated procedure well Assessment/Plan Active Problems (Last Updated 07/10/18 @ 14:27 by Ingrid Hanley) Nonhealing ulcer of left lower extremity with fat layer exposed (Acute) Chronic acquired lymphedema (Acute) Super obesity (Chronic) Assessment: Chronic severe bilateral lymphedema. Supermorbid Obesity. Left lower extremity ulcer Plan: The patient was seen and examined at the wound center today and was updated on the plan of care. A subcutaneous debridement was performed today. The patient tolerated the procedure well. The patients wound care will consist of: Aquasol silver dressings daily and as needed, instructed to pack the dressing into the posterior ulcer as it has a depth of .7. Wound cultures were prior and showed proteus and strep and patient completed course of clindamycin, currently denies any signs of infection at this time. For compression patient is to continue with compression stockings and Desmond wraps. Baseline bloodwork ordered. Patient educated on the importance of diet on wound healing and instructed to increase protein and vitamin C intake. Patient verbalized understanding. Patient will follow up at wound healing center in one week or sooner if needed. This note was generated with [email or web address] software. It may contain incorrect words, spelling, and punctuation that were not noted in checking the note before signing. Code Visit 111xxx-113xx: [id number] Margarita subq tissue 20 sq cm/<
[2018-07-26 16:11] LABS: Absolute Lymphocyte Count 1.02 X10^3/ul (0.83-4.51); Absolute Neutrophil Count 5.4 X10^3/uL (2.0-7.7); Basophil# 0.02 X10^3/uL; Basophil% 0.3 % (0-1); Eosinophil# 0.18 X10^3/uL; Eosinophils% 2.6 % (0-5); Hematocrit 38.2 % (40-54); Hemoglobin 11.8 g/dl (13.0-16.5); Lymphocyte # 1.02 X10^3/ul (4.0); Lymphocyte % 14.5 % (19-41); Mean Corp Hgb Conc 30.9 g/gl (32-36); Mean Corpuscular Hgb 23.2 pg (27.0-32.0); Mean Corpuscular Volume 75.2 fL (80-94); Mean Platelet Vol. 9.7 fl (6.2-12.0); Monocyte% 5.7 % (0-10); Neutrophil % 76.6 % (47-70); Platelet Count 283 K/mm3 (150-450); RBC Distribution Width CV 18.7 % (11.6-14.6); RBC Distribution Width SD 50.7 fl (35.1-43.9); Red Blood Count 5.08 M/mm3 (4.6-6.2)
[2018-07-26 16:18] LABS: POSITIVE COUNT NO; POSITIVE DIFFERENTIAL NO; POSITIVE MORPHOLOGY NO
[2018-07-26 16:28] LABS: Erythrocyte Sedimentation Rate 70 mm/hr (0-15)
[2018-07-26 16:41] LABS: ALB/GLOB Ratio 0.6 RATIO (0.9-2.4); AST(SGOT) 25 U/L (15-37); Alanine Aminotransfer ALT/SGPT 40 U/L (16-61); Albumin, Serum 3.4 g/dL (3.2-5.0); Alkaline Phosphatase 127 U/L (45-117); Anion Gap 7 (5-15); BUN 21 mg/dL (7-18); BUN/Creat Ratio 22.9 RATIO (10-20); Calcium,Total 8.6 mg/dL (8.5-10.1); Chloride 103 mmol/L (98-107); Creatinine, Serum 0.92 mg/dL (0.70-1.30); EST Glomerular Filtration Rate 95 mL/min (>60); Est Glom Filt Rate - Afr Amer 115 mL/min (>60); Globulin 5.7 g/dL (2.2-4.2); Glucose 89 mg/dL (74-106); Potassium 4.5 mmol/L (3.5-5.1); Protein, Total 9.1 g/dL (6.4-8.2); Sodium Level 140 mmol/L (136-145)
[2018-07-26 16:44] LABS: Hemoglobin A1c 5.7 % (4.2-6.3)
[2018-07-27 01:47] LABS: Prealbumin 25.7 mg/dL (20.0-40.0)
[2018-08-09 13:15] VITALS: BP 182/107; PULSE 83; RESP 18; TEMP 36.2; BMI 75.4
--- NOTE | 2018-08-09 21:44 | PCM.WC.PN ---
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 Status: Acute Code(s): L97.922 - Non-pressure chronic ulcer of unspecified part of left lower leg with fat layer exposed (2) Chronic acquired lymphedema Status: Acute Code(s): I89.0 - Lymphedema, not elsewhere classified (3) Chronic diastolic heart failure Status: Chronic Code(s): I50.32 - Chronic diastolic (congestive) heart failure (4) Super obesity Status: Chronic Code(s): E66.9 - Obesity, unspecified (5) Pulmonary embolism Status: Suspected Code(s): I26.99 - Other pulmonary embolism without acute cor pulmonale (6) Essential (primary) hypertension Status: Chronic Code(s): I10 - Essential (primary) hypertension Type of Wound Date of Service: 08/09/18 Chief Complaint: Chronic severe bilateral lower extremity swelling with two nonhealing ulcers left lower extremity. History of Wound: Mr. Bobby is a 42yo with Morbid Obesity and Chronic severe bilateral lymph edema who who presents to the wound center again for wounds of the left lower extremity. He states that his wounds have been slowly opening on his left lower extremity over the last month or so. He has been using Aquacel silver that he had left over. He states that he was previously seen at the lymphedema clinic and they told him that they could do nothing for him until after he gets his bariatric surgery. Records are not available for review at this time. He is using Desmond wraps and compression wraps to his lower extremities from the knee down for his lymphedema, but due to his anatomy is unable to wrap his thigh lymphedema which is where the ulcers are on the left lower extremity. He does note that he had attempted to have vascular studies in the past, but they are unable to be performed due to his body habitus. He denies any systemic or localized signs of infection at this time. He does state that there is some serous drainage on his dressing changes. The patient otherwise denies any fever, chills, nausea, vomiting, shortness of breath, chest pain or pressure, palpitations, orthopnea, lower extremity edema, syncope or presyncopal episodes. Progress of Wound: improving, left medial thigh ulcer has almost entirely healed, posterior ulcer improving. Pt denies any signs of infection at this time. No increase in pain or drainage. - Physical Exam Vital Signs Temp Pulse Resp BP 97.1 F L 83 18 182/107 H 08/09/18 13:15 08/09/18 13:15 08/09/18 13:15 08/09/18 13:15 General: Alert, Oriented x3, Cooperative, No apparent distress HEENT: Atraumatic Cardiovascular: Regular rate Abdomen: Obese Extremities: Edema - chronic 2-3+ pitting lymphedema BLLE, DESMOND wraps currently in place Skin: Ulcer/ Wound - Ulceration present left thigh medial almost entirely healed, left posterior thigh ulcer with adherent slough, no signs of infection. Chronic lymphedema present bilateral thighs with chronic skin changes Musculoskeletal: No Tenderness to Palpation of Joints or Extremities, No Muscle Wasting Neurological: Neuro grossly intact Psych/Mental Status: Normal Affect, Appropriate, Alert and oriented to time, place, person, mood and affect Debridement Note Post-Debridement Measurements/Treatment WC - Nurse 2 - General Ulcer CM Notes Start: 07/12/18 13:13 Freq: Status: Active Protocol: Activity Type Activity Date Activity User E-Sign Co-Sign Detail Recorded Client Recorded Date Recorded By Document 07/12/18 14:12 [id number] 07/12/18 14:38 TM Document 07/26/18 13:39 [id number] 07/26/18 13:40 TM Document 08/09/18 13:42 [id number] 08/09/18 13:44 07/12/18 07/26/18 08/09/18 14:12 13:39 13:42 Wound Center Nurse 2 #3 LEFT POST. THIGH -Time 14:33 13:39 13:42 -Correct Patient Yes Yes Yes -Correct Side, Site, Position Yes Yes Yes -Correct Procedure Yes Yes Yes -Procedure Performed Yes Yes Yes -Type of Procedure Debridement Debridement Debridement -Clinical Debridement Subcutaneous Subcutaneous Subcutaneous -Post Debridement Size (cm) - Length 3.6 2.2 1.5 -Post Debridement Size (cm) - Width 3.6 1.8 0.7 -Post Debridement Size (cm) - Depth 0.1 0.7 0.4 -Total Square Cm 12.96 3.96 1.05 -Wound/Ulcer Outcome Not Healed Not Healed Not Healed -Ulcer Cleansing Rinsed/ Rinsed/ Not Cleansed Irrigated with Irrigated with Saline Saline -Foul Odor after Cleansing No No No -Bioengineered Tissue No No No -Topical Lidocaine (%) 4 4 -Bleeding Controlled with Pressure Pressure Pressure -Offloading No -Treatment Response Procedure Procedure Tolerated Well Tolerated Well #2 LEFT MEDIAL THIGH CLUSTER -Time 14:34 13:39 13:42 -Correct Patient Yes Yes No -Correct Side, Site, Position Yes Yes No -Correct Procedure Yes Yes No -Procedure Performed Yes Yes No -Type of Procedure Debridement Debridement -Clinical Debridement Subcutaneous Subcutaneous -Post Debridement Size (cm) - Length 2.0 1.6 0.1 -Post Debridement Size (cm) - Width 2.0 1.0 0.1 -Post Debridement Size (cm) - Depth 0.1 0.1 0.1 -Total Square Cm 4.00 1.60 0.01 -Wound/Ulcer Outcome Not Healed Not Healed Not Healed -Ulcer Cleansing Rinsed/ Rinsed/ Not Cleansed Irrigated with Irrigated with Saline Saline -Foul Odor after Cleansing No No No -Bioengineered Tissue No No -Topical Lidocaine (%) 4 4 -Bleeding Controlled with Pressure Pressure -Treatment Response Procedure Procedure Tolerated Well Tolerated Well Pain Scale: 0-10 Numeric Is Patient Pain Free? Yes Yes Yes Wound debrided: Left posterior thigh ulcer Laterality: Left Type of Debridement: Excisional debridement Anesthesia Used: 5% Lidocaine Gel Depth: in the subcutaneous layer Percentage of wound debrided: 100 Instrument Used: 7mm curette Tissue Removed: Slough and devitalized tissue Severity: Fat Layer Exposed Amount of bleeding with debridement: Mild Bleeding Controlled with: Pressure Patient tolerated procedure well Assessment/Plan Assessment: Chronic severe bilateral lymphedema. Supermorbid Obesity. Left lower extremity ulcer Plan: The patient was seen and examined at the wound center today and was updated on the plan of care. A subcutaneous debridement was performed today. The patient tolerated the procedure well. The patients wound care will consist of: Aquasol silver dressings daily and as needed. Wound cultures were prior and showed proteus and strep and patient completed course of clindamycin, currently denies any signs of infection at this time. For compression patient is to continue with compression stockings and Desmond wraps. Baseline bloodwork ordered. Patient educated on the importance of diet on wound healing and instructed to increase protein and vitamin C intake. Patient verbalized understanding. Patient will follow up at wound healing center in two week or sooner if needed. This note was generated with Dragon dictation software. It may contain incorrect words, spelling, and punctuation that were not noted in checking the note before signing. Code Visit 111xxx-113xx: [id number] Margarita subq tissue 20 sq cm/<
--- NOTE | 2018-08-14 08:49 | PN.PCM_ITS ---
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 Status: Acute Code(s): L97.922 - Non-pressure chronic ulcer of unspecified part of left lower leg with fat layer exposed (2) Chronic acquired lymphedema Status: Acute Code(s): I89.0 - Lymphedema, not elsewhere classified (3) Chronic diastolic heart failure Status: Chronic Code(s): I50.32 - Chronic diastolic (congestive) heart failure (4) Super obesity Status: Chronic Code(s): E66.9 - Obesity, unspecified (5) Pulmonary embolism Status: Suspected Code(s): I26.99 - Other pulmonary embolism without acute cor pulmonale (6) Essential (primary) hypertension Status: Chronic Code(s): I10 - Essential (primary) hypertension Type of Wound Date of Service: 08/09/18 Chief Complaint: Chronic severe bilateral lower extremity swelling with two nonhealing ulcers left lower extremity. History of Wound: Mr. Bobby is a 42yo with Morbid Obesity and Chronic severe bilateral lymph edema who who presents to the wound center again for wounds of the left lower extremity. He states that his wounds have been slowly opening on his left lower extremity over the last month or so. He has been using Aquacel silver that he had left over. He states that he was previously seen at the lymphedema clinic and they told him that they could do nothing for him until after he gets his bariatric surgery. Records are not available for review at this time. He is using Desmond wraps and compression wraps to his lower extremities from the knee down for his lymphedema, but due to his anatomy is unable to wrap his thigh lymphedema which is where the ulcers are on the left lower extremity. He does note that he had attempted to have vascular studies in the past, but they are unable to be performed due to his body habitus. He denies any systemic or localized signs of infection at this time. He does state that there is some serous drainage on his dressing changes. The patient otherwise denies any fever, chills, nausea, vomiting, shortness of breath, chest pain or pressure, palpitations, orthopnea, lower extremity edema, syncope or presyncopal episodes. Progress of Wound: improving, left medial thigh ulcer has almost entirely healed, posterior ulcer improving. Pt denies any signs of infection at this time. No increase in pain or drainage. - Physical Exam Vital Signs Temp Pulse Resp BP 97.1 F L 83 18 182/107 H 08/09/18 13:15 08/09/18 13:15 08/09/18 13:15 08/09/18 13:15 General: Alert, Oriented x3, Cooperative, No apparent distress HEENT: Atraumatic Cardiovascular: Regular rate Abdomen: Obese Extremities: Edema - chronic 2-3+ pitting lymphedema BLLE, DESMOND wraps currently in place Skin: Ulcer/ Wound - Ulceration present left thigh medial almost entirely healed, left posterior thigh ulcer with adherent slough, no signs of infection. Chronic lymphedema present bilateral thighs with chronic skin changes Musculoskeletal: No Tenderness to Palpation of Joints or Extremities, No Muscle Wasting Neurological: Neuro grossly intact Psych/Mental Status: Normal Affect, Appropriate, Alert and oriented to time, place, person, mood and affect Debridement Note Post-Debridement Measurements/Treatment WC - Nurse 2 - General Ulcer CM Notes Start: 07/12/18 13:13 Freq: Status: Active Protocol: Activity Type Activity Date Activity User E-Sign Co-Sign Detail Recorded Client Recorded Date Recorded By Document 07/12/18 14:12 [id number] 07/12/18 14:38 TM Document 07/26/18 13:39 [id number] 07/26/18 13:40 TM Document 08/09/18 13:42 [id number] 08/09/18 13:44 07/12/18 07/26/18 08/09/18 14:12 13:39 13:42 Wound Center Nurse 2 #3 LEFT POST. THIGH -Time 14:33 13:39 13:42 -Correct Patient Yes Yes Yes -Correct Side, Site, Position Yes Yes Yes -Correct Procedure Yes Yes Yes -Procedure Performed Yes Yes Yes -Type of Procedure Debridement Debridement Debridement -Clinical Debridement Subcutaneous Subcutaneous Subcutaneous -Post Debridement Size (cm) - Length 3.6 2.2 1.5 -Post Debridement Size (cm) - Width 3.6 1.8 0.7 -Post Debridement Size (cm) - Depth 0.1 0.7 0.4 -Total Square Cm 12.96 3.96 1.05 -Wound/Ulcer Outcome Not Healed Not Healed Not Healed -Ulcer Cleansing Rinsed/ Rinsed/ Not Cleansed Irrigated with Irrigated with Saline Saline -Foul Odor after Cleansing No No No -Bioengineered Tissue No No No -Topical Lidocaine (%) 4 4 -Bleeding Controlled with Pressure Pressure Pressure -Offloading No -Treatment Response Procedure Procedure Tolerated Well Tolerated Well #2 LEFT MEDIAL THIGH CLUSTER -Time 14:34 13:39 13:42 -Correct Patient Yes Yes No -Correct Side, Site, Position Yes Yes No -Correct Procedure Yes Yes No -Procedure Performed Yes Yes No -Type of Procedure Debridement Debridement -Clinical Debridement Subcutaneous Subcutaneous -Post Debridement Size (cm) - Length 2.0 1.6 0.1 -Post Debridement Size (cm) - Width 2.0 1.0 0.1 -Post Debridement Size (cm) - Depth 0.1 0.1 0.1 -Total Square Cm 4.00 1.60 0.01 -Wound/Ulcer Outcome Not Healed Not Healed Not Healed -Ulcer Cleansing Rinsed/ Rinsed/ Not Cleansed Irrigated with Irrigated with Saline Saline -Foul Odor after Cleansing No No No -Bioengineered Tissue No No -Topical Lidocaine (%) 4 4 -Bleeding Controlled with Pressure Pressure -Treatment Response Procedure Procedure Tolerated Well Tolerated Well Pain Scale: 0-10 Numeric Is Patient Pain Free? Yes Yes Yes Wound debrided: Left posterior thigh ulcer Laterality: Left Type of Debridement: Excisional debridement Anesthesia Used: 5% Lidocaine Gel Depth: in the subcutaneous layer Percentage of wound debrided: 100 Instrument Used: 7mm curette Tissue Removed: Slough and devitalized tissue Severity: Fat Layer Exposed Amount of bleeding with debridement: Mild Bleeding Controlled with: Pressure Patient tolerated procedure well Assessment/Plan Assessment: Chronic severe bilateral lymphedema. Supermorbid Obesity. Left lower extremity ulcer Plan: The patient was seen and examined at the wound center today and was updated on the plan of care. A subcutaneous debridement was performed today. The patient tolerated the procedure well. The patients wound care will consist of: Aquasol silver dressings daily and as needed. Wound cultures were prior and showed proteus and strep and patient completed course of clindamycin, currently denies any signs of infection at this time. For compression patient is to continue with compression stockings and Desmond wraps. Baseline bloodwork ordered. Patient educated on the importance of diet on wound healing and instructed to i ncrease protein and vitamin C intake. Patient verbalized understanding. Patient will follow up at wound healing center in two week or sooner if needed. This note was generated with [employer] software. It may contain incorrect words, spelling, and punctuation that were not noted in checking the note before signing. Code Visit [id number]: [id number] Margarita subq tissue 20 sq cm/<
== END 2018-08-10 23:59 ==
LOC: WC 13:00
PROVIDERS: Family Provider Internal Medicine; PCP Internal Medicine; Visit Provider Nurse Practitioner Family
DX: L97.122 Non-pressure chronic ulcer of left thigh with fat layer exposed (principal); I50.32 Chronic diastolic (congestive) heart failure; I26.99 Other pulmonary embolism without acute cor pulmonale; I11.0 Hypertensive heart disease with heart failure; I89.0 Lymphedema, not elsewhere classified; M79.89 Other specified soft tissue disorders; E66.01 Morbid (severe) obesity due to excess calories; Z71.3 Dietary counseling and surveillance
CPT/HCPCS: 11042; 80053; 83036; 84134; 85025; 85652; 87070; 87077; 87186; 87205; 99213; G0463

== ENCOUNTER 2018-09-06 13:00 | Outpatient (RCR) | payer MEDICAID, SELFPAY ==
[2018-08-11 00:18] VITALS: BP 182/107; PULSE 83; RESP 18; TEMP 36.2
[2018-08-15 15:12] VITALS: BMI 75.9
[2018-08-24 08:39] VITALS: BP 151/90; RESP 28; TEMP 36.1; BMI 75.9
--- NOTE | 2018-08-24 09:48 | PCM.WC.PN ---
(1) Ulcer of left thigh Status: Acute Current Visit: Yes Code(s): L97.129 - Non-pressure chronic ulcer of left thigh with unspecified severity (2) Nonhealing ulcer of left lower extremity with fat layer exposed Status: Acute Current Visit: Yes Code(s): L97.922 - Non-pressure chronic ulcer of unspecified part of left lower leg with fat layer exposed (3) Chronic acquired lymphedema Status: Chronic Current Visit: Yes Code(s): I89.0 - Lymphedema, not elsewhere classified (4) Super obesity Status: Chronic Current Visit: Yes Code(s): E66.9 - Obesity, unspecified (5) Chronic diastolic heart failure Status: Chronic Current Visit: No Code(s): I50.32 - Chronic diastolic (congestive) heart failure Type of Wound Date of Service: 08/24/18 Chief Complaint: Chronic severe bilateral lower extremity swelling with two nonhealing ulcers left lower extremity. History of Wound: Mr. Bobby is a 42yo with Morbid Obesity and Chronic severe bilateral lymph edema who who presents to the wound center again for wounds of the left lower extremity. He states that his wounds have been slowly opening on his left lower extremity over the last month or so. He has been using Aquacel silver that he had left over. He states that he was previously seen at the lymphedema clinic and they told him that they could do nothing for him until after he gets his bariatric surgery. Records are not available for review at this time. He is using Desmond wraps and compression wraps to his lower extremities from the knee down for his lymphedema, but due to his anatomy is unable to wrap his thigh lymphedema which is where the ulcers are on the left lower extremity. He does note that he had attempted to have vascular studies in the past, but they are unable to be performed due to his body habitus. He denies any systemic or localized signs of infection at this time. He does state that there is some serous drainage on his dressing changes. The patient otherwise denies any fever, chills, nausea, vomiting, shortness of breath, chest pain or pressure, palpitations, orthopnea, lower extremity edema, syncope or presyncopal episodes. Progress of Wound: Patient completed course of clindamycin for a wound culture that grew proteus mirabilis and strep algalactae. Patient has three new wounds today. The original wound is stable. - Physical Exam Vital Signs Temp Pulse Resp BP 96.9 F L 83 28 H 151/90 H 08/24/18 08:39 08/11/18 00:18 08/24/18 08:39 08/24/18 08:39 General: Alert, Oriented x3 HEENT: Atraumatic Oral: Moist Mucosa Lungs: Short of Breath - SOB with activity. Cardiovascular: Regular rate Extremities: No Calf Tenderness, Cool, Diminished Peripheral Pulses, Edema - Lower extremities with copious amounts of lymphedema. Skin: Ulcer/ Wound - Left posterior thigh is the original ulcer. New ulcers on left proximal abdomen, left distal abdomen and left lateral abdomen. Wound Measurements and Assessment WC - Nurse 1 - General Ulcer Measurement Start: 08/24/18 08:39 Freq: Status: Active Protocol: Activity Type Activity Date Activity User E-Sign Co-Sign Detail Recorded Client Recorded Date Recorded By Document 08/24/18 08:39 ROLAND [id number] 08/24/18 09:10 ROLAND 08/24/18 08:39 Wound Center Nurse 1 [Ulcer Assessment] #6 LEFT LATERAL ABDOMEN -Current Size (cm) - Length 0.4 -Current Size (cm) - Width 0.3 -Current Size (cm) - Depth 0.2 -Total Square Cm 0.12 -Date of Last Picture (Recall this 08/24/18 field) -Photo Taken Yes -Epithelialization None Present -Tunneling No -Undermining/Tunneling No -Circular Undermining No -Classification - Thickness Full Thickness with Exposed Support Structure -Exudate Amt Medium (34-66%) -Exudate Type Serous -Wound Margin Thickened -Granulation Amt Large (67-100%) -Granulation Quality Red -Slough/Fibrin Yes -Necrosis Amt Small (1-33%) -Necrotic Tissue Type Adherent Slough -Structure Exposed Fat Layer Exposed -Texture (Josephine-wound Skin Appearance) Assessed Localized Edema -Moisture (Josephine-wound Skin Appearance Assessed ) -Color (Josephine-wound Skin Appearance) Assessed -Temperature (Josephine-wound Skin Cool/Cold Appearance) -Tenderness on Palpation (Josephine-wound No Skin Appearance) -Ulcer Cleansing Rinsed/ Irrigated with Saline -Foul Odor after Cleansing Yes -Anesthetic Used 4% Lidocaine Solution #5 LEFT DISTAL ABDOMEN -Current Size (cm) - Length 2.1 -Current Size (cm) - Width 2.3 -Current Size (cm) - Depth 0.1 -Total Square Cm 4.83 -Date of Last Picture (Recall this 08/24/18 field) -Photo Taken Yes -Epithelialization None Present -Tunneling No -Undermining/Tunneling No -Circular Undermining No -Classification - Thickness Full Thickness with Exposed Support Structure -Exudate Amt Medium (34-66%) -Exudate Type Serous -Wound Margin Thickened -Granulation Amt Large (67-100%) -Granulation Quality Red -Slough/Fibrin Yes -Necrosis Amt Small (1-33%) -Necrotic Tissue Type Adherent Slough -Structure Exposed Fat Layer Exposed -Texture (Josephine-wound Skin Appearance) Assessed Localized Edema -Moisture (Josephine-wound Skin Appearance Assessed ) -Color (Josephine-wound Skin Appearance) Assessed -Temperature (Josephine-wound Skin Cool/Cold Appearance) -Tenderness on Palpation (Josephine-wound No Skin Appearance) -Ulcer Cleansing Rinsed/ Irrigated with Saline -Foul Odor after Cleansing Yes -Anesthetic Used 4% Lidocaine Solution #4 LEFT PROXIMAL ABDOMEN -Combined with other wound No -Current Size (cm) - Length 5.3 -Current Size (cm) - Width 2.7 -Current Size (cm) - Depth 1.4 -Total Square Cm 14.31 -Date of Last Picture (Recall this 08/24/18 field) -Photo Taken Yes -Epithelialization None Present -Tunneling No -Undermining/Tunneling No -Circular Undermining No -Classification - Thickness Full Thickness without Exposed Support Structure -Exudate Amt Medium (34-66%) -Exudate Type Serous -Wound Margin Thickened -Granulation Amt Large (67-100%) -Granulation Quality Red -Slough/Fibrin Yes -Necrosis Amt Small (1-33%) -Necrotic Tissue Type Adherent Slough -Structure Exposed Fat Layer Exposed -Texture (Josephine-wound Skin Appearance) Assessed Localized Edema -Moisture (Josephine-wound Skin Appearance Assessed ) -Color (Josephine-wound Skin Appearance) Assessed -Temperature (Josephine-wound Skin Cool/Cold Appearance) -Tenderness on Palpation (Josephine-wound No Skin Appearance) -Ulcer Cleansing Rinsed/ Irrigated with Saline -Foul Odor after Cleansing Yes -Anesthetic Used 4% Lidocaine Solution #3 LEFT POST. THIGH -Current Size (cm) - Length 0.1 -Current Size (cm) - Width 0.1 -Current Size (cm) - Depth 0.1 -Total Square Cm 0.01 -Epithelialization None Present -Classification - Thickness Full Thickness without Exposed Support Structure -Exudate Amt Small (1-33%) -Exudate Type Serous -Wound Margin Fibrotic Scar, Thickened Scar -Granulation Amt Large (67-100%) -Granulation Quality Red -Slough/Fibrin Yes -Necrosis Amt Small (1-33%) -Necrotic Tissue Type Adherent Slough -Structure Exposed N/A -Texture (Josephine-wound Skin Appearance) Localized Edema -Moisture (Josephine-wound Skin Appearance Assessed ) -Color (Josephine-wound Skin Appearance) Assessed -Temperature (Josephine-wound Skin Cool/Cold Appearance) -Tenderness on Palpation (Josephine-wound No Skin Appearance) -Ulcer Cleansing Rinsed/ Irrigated with Saline -Foul Odor after Cleansing No -Anesthetic Used 4% Lidocaine Solution WC - Nurse 2 - General Ulcer CM Notes Start: 08/24/18 08:39 Freq: Status: Active Protocol: Activity Type Activity Date Activity User E-Sign Co-Sign Detail Recorded Client Recorded Date Recorded By Document 08/24/18 09:14 ROLAND [id number] 08/24/18 09:31 ROLAND 08/24/18 09:14 Wound Center Nurse 2 [Procedure/Treatment] #6 LEFT LATERAL ABDOMEN -Time 09:15 -Correct Patient Yes -Correct Side, Site, Position Yes -Correct Procedure Yes -Procedure Performed Yes -Type of Procedure Debridement -Clinical Debridement Subcutaneous -Post Debridement Size (cm) - Length 1.0 -Post Debridement Size (cm) - Width 1.4 -Post Debridement Size (cm) - Depth 0.9 -Total Square Cm 1.40 -Wound/Ulcer Outcome Not Healed -Ulcer Cleansing Rinsed/ Irrigated with Saline -Foul Odor after Cleansing Yes -Bioengineered Tissue No -Topical Lidocaine (%) 4 -Bleeding Controlled with NA -Offloading No -Treatment Response Procedure Tolerated Well #5 LEFT DISTAL ABDOMEN -Time 09:15 -Correct Patient Yes -Correct Side, Site, Position Yes -Correct Procedure Yes -Procedure Performed Yes -Type of Procedure Debridement -Clinical Debridement Subcutaneous -Post Debridement Size (cm) - Length 2.0 -Post Debridement Size (cm) - Width 2.0 -Post Debridement Size (cm) - Depth 2.0 -Total Square Cm 4.00 -Wound/Ulcer Outcome Not Healed -Ulcer Cleansing Rinsed/ Irrigated with Saline -Foul Odor after Cleansing No -Bioengineered Tissue No -Injectable Lidocaine (%) 4 -Bleeding Controlled with Pressure Silver Nitrate -Offloading No -Treatment Response Procedure Tolerated Well #4 LEFT PROXIMAL ABDOMEN -Time 09:16 -Correct Patient Yes -Correct Side, Site, Position Yes -Correct Procedure Yes -Procedure Performed Yes -Type of Procedure Debridement -Clinical Debridement Subcutaneous -Post Debridement Size (cm) - Length 4.0 -Post Debridement Size (cm) - Width 2.5 -Post Debridement Size (cm) - Depth 1.1 -Total Square Cm 10.00 -Wound/Ulcer Outcome Not Healed -Ulcer Cleansing Rinsed/ Irrigated with Saline -Foul Odor after Cleansing Yes -Bioengineered Tissue No -Injectable Lidocaine (%) 4 -Bleeding Controlled with Pressure Silver Nitrate -Offloading No -Treatment Response Procedure Tolerated Well #3 LEFT POST. THIGH -Time 09:14 -Correct Patient Yes -Correct Side, Site, Position Yes -Correct Procedure Yes -Procedure Performed Yes -Type of Procedure Debridement -Clinical Debridement Subcutaneous -Post Debridement Size (cm) - Length 0.2 -Post Debridement Size (cm) - Width 0.2 -Post Debridement Size (cm) - Depth 1.2 -Total Square Cm 0.04 -Wound/Ulcer Outcome Not Healed -Ulcer Cleansing Rinsed/ Irrigated with Saline -Foul Odor after Cleansing No -Bioengineered Tissue No -Topical Lidocaine (%) 4 -Bleeding Controlled with NA -Offloading No -Treatment Response Procedure Tolerated Well [See Physician Procedure note for Specifics] Musculoskeletal: No Tenderness to Palpation of Joints or Extremities Neurological: Neuro grossly intact Psych/Mental Status: Normal Affect, Appropriate Debridement Note Post-Debridement Measurements/Treatment WC - Nurse 2 - General Ulcer CM Notes Start: 08/24/18 08:39 Freq: Status: Active Protocol: Activity Type Activity Date Activity User E-Sign Co-Sign Detail Recorded Client Recorded Date Recorded By Document 08/24/18 09:14 ROLAND [id number] 08/24/18 09:31 ROLAND 08/24/18 09:14 Wound Center Nurse 2 #6 LEFT LATERAL ABDOMEN -Time 09:15 -Correct Patient Yes -Correct Side, Site, Position Yes -Correct Procedure Yes -Procedure Performed Yes -Type of Procedure Debridement -Clinical Debridement Subcutaneous -Post Debridement Size (cm) - Length 1.0 -Post Debridement Size (cm) - Width 1.4 -Post Debridement Size (cm) - Depth 0.9 -Total Square Cm 1.40 -Wound/Ulcer Outcome Not Healed -Ulcer Cleansing Rinsed/ Irrigated with Saline -Foul Odor after Cleansing Yes -Bioengineered Tissue No -Topical Lidocaine (%) 4 -Bleeding Controlled with NA -Offloading No -Treatment Response Procedure Tolerated Well #5 LEFT DISTAL ABDOMEN -Time 09:15 -Correct Patient Yes -Correct Side, Site, Position Yes -Correct Procedure Yes -Procedure Performed Yes -Type of Procedure Debridement -Clinical Debridement Subcutaneous -Post Debridement Size (cm) - Length 2.0 -Post Debridement Size (cm) - Width 2.0 -Post Debridement Size (cm) - Depth 2.0 -Total Square Cm 4.00 -Wound/Ulcer Outcome Not Healed -Ulcer Cleansing Rinsed/ Irrigated with Saline -Foul Odor after Cleansing No -Bioengineered Tissue No -Injectable Lidocaine (%) 4 -Bleeding Controlled with Pressure Silver Nitrate -Offloading No -Treatment Response Procedure Tolerated Well #4 LEFT PROXIMAL ABDOMEN -Time 09:16 -Correct Patient Yes -Correct Side, Site, Position Yes -Correct Procedure Yes -Procedure Performed Yes -Type of Procedure Debridement -Clinical Debridement Subcutaneous -Post Debridement Size (cm) - Length 4.0 -Post Debridement Size (cm) - Width 2.5 -Post Debridement Size (cm) - Depth 1.1 -Total Square Cm 10.00 -Wound/Ulcer Outcome Not Healed -Ulcer Cleansing Rinsed/ Irrigated with Saline -Foul Odor after Cleansing Yes -Bioengineered Tissue No -Injectable Lidocaine (%) 4 -Bleeding Controlled with Pressure Silver Nitrate -Offloading No -Treatment Response Procedure Tolerated Well #3 LEFT POST. THIGH -Time 09:14 -Correct Patient Yes -Correct Side, Site, Position Yes -Correct Procedure Yes -Procedure Performed Yes -Type of Procedure Debridement -Clinical Debridement Subcutaneous -Post Debridement Size (cm) - Length 0.2 -Post Debridement Size (cm) - Width 0.2 -Post Debridement Size (cm) - Depth 1.2 -Total Square Cm 0.04 -Wound/Ulcer Outcome Not Healed -Ulcer Cleansing Rinsed/ Irrigated with Saline -Foul Odor after Cleansing No -Bioengineered Tissue No -Topical Lidocaine (%) 4 -Bleeding Controlled with NA -Offloading No -Treatment Response Procedure Tolerated Well Wound debrided: Left posterior thigh Laterality: Left Type of Debridement: Excisional debridement Anesthesia Used: 4% Lidocaine Solution Depth: Down to and including healthy tissue, in the subcutaneous layer Percentage of wound debrided: 100 Instrument Used: 3mm curette Tissue Removed: Subcutaneous tissue and slough Severity: Fat Layer Exposed Amount of bleeding with debridement: Mild Bleeding Controlled with: Pressure Patient tolerated procedure well - Additional Wound Wound debrided: Left proximal abdomen Laterality: Left Type of Debridement: Excisional debridement Anesthesia Used: 4% Lidocaine Solution Depth: Down to and including healthy tissue, in the subcutaneous layer Percentage of wound debrided: 100 Instrument Used: 3mm curette - Scissors used to remove non viable tissue that was covering the opening. Tissue Removed: Subcutaneous tissue, slough and non viable tissue Severity: Fat Layer Exposed Amount of bleeding with debridement: Moderate Bleeding Controlled with: Pressure, Compression and gauze, Silver Nitrate Patient tolerated procedure: Patient tolerated procedure well - Additional Wound Wound debrided: Left distal abdomen Laterality: Left Type of Debridement: Excisional debridement Anesthesia Used: 4% Lidocaine Solution Depth: Down to and including healthy tissue, in the subcutaneous layer Percentage of wound debrided: 100 Instrument Used: 3mm curette - Scissors were used to deroof the black, non viable tissue Tissue Removed: Subcutaneous tissue, slough and non viable tissue Severity: Fat Layer Exposed Amount of bleeding with debridement: Mild Bleeding Controlled with: Pressure, Compression and gauze Patient tolerated procedure: Patient tolerated procedure well - Additional Wound Wound debrided: Left lateral abdomen Laterality: Left Type of Debridement: Excisional debridement Anesthesia Used: 4% Lidocaine Solution Depth: Down to and including healthy tissue, in the subcutaneous layer Percentage of wound debrided: 100 Instrument Used: 3mm curette Tissue Removed: Subcutaneous tissue and slough Amount of bleeding with debridement: Moderate Bleeding Controlled with: Pressure, Compression and gauze, Silver Nitrate Patient tolerated procedure: Patient tolerated procedure well Assessment/Plan Active Problems (Last Reviewed 08/15/18 @ 15:52 by Selwyn Liu MD) Nonhealing ulcer of left lower extremity with fat layer exposed (Acute) Chronic acquired lymphedema (Chronic) Ulcer of left thigh (Acute) Super obesity (Chronic) Assessment: Chronic severe bilateral lymphedema. Supermorbid Obesity. Left lower extremity ulcer Plan: The patient was seen and examined at the wound center today and was updated on the plan of care. A subcutaneous debridement was performed today. The patient tolerated the procedure well. The patients wound care will consist of: Aquasol silver dressings daily and as needed, instructed to pack the dressing into all of his ulcers. Wound cultures were prior and showed proteus and strep and patient completed course of clindamycin, currently denies any signs of infection at this time. For compression patient is to continue with compression stockings and Desmond wraps. Patient educated on the importance of diet on wound healing and instructed to increase protein and vitamin C intake. Patient verbalized understanding. Patient requesting new custom compression stockings for his lower legs, he states he would like to to talk to who he had measure him for it in the past and then he would have them contact us for the order. Patient will follow up at wound healing center in one week or sooner if needed with Cale Magana DNP, this was a courtesy visit this week. Spoke with patient's after the patient left the wound center and she states he is concerned that he may have an infection. He denies any fevers or chills at this time. No foul smelling odor came from his wounds today. Will discuss this with Ashley Magana and he may want to culture his wounds next week. Instructed the patient's that if his symptoms worsen and he does develop fever, chills, n/v/d then he should notify the wound center or go to the ED for further evaluation. Also her to make sure that he is using DESMOND wraps on his thighs to help with some of his lymphedema and try to elevate his legs and pannis to help decrease some of the edema. Code Visit [id number]: [id number] Margarita subq tissue 20 sq cm/<
[2018-09-06 15:26] VITALS: BP 151/95; PULSE 87; RESP 20; TEMP 36.6; BMI 75.9
--- NOTE | 2018-09-06 15:27 | WC ---
pt states he is not feeling well Pt c/o mild SOB and chills. and will go to [facility] this evening Pt seen my Cale Magana and stated he is going per family to [facility] now.
--- NOTE | 2018-09-06 16:25 | WC ---
at 1530 found pt on floor in front waiting room while pt was exiting wound center. pt alert and denies complaints. 911 called and ambulance attendants came to assist pt off floor to their cot. pt then taken to [facility].
--- OUTSIDE RECORDS SUMMARY | 2018-10-09 19:58 | XMS RPT_ITS ---
:1975 Author Organization OHIP Support Name Relationship Address Phone D Unavailable Unavailable Unavailable KANU, GENNY Unavailable [address] + [place] [address] D Unavailable Unavailable Unavailable KANU, GENNY Unavailable [address] + [place] [address] D Unavailable Unavailable Unavailable KANU, GENNY Unavailable [address] + [place] [address] D Unavailable Unavailable Unavailable KANU, GENNY Unavailable [address] + [place] [address] D Unavailable Unavailable Unavailable KANU, GENNY Unavailable [address] + [place] [address] D Unavailable Unavailable Unavailable KANU, GENNY Unavailable [address] + [place] [address] D Unavailable Unavailable Unavailable KANU, GENNY Unavailable [address] + [place] [address] D Unavailable Unavailable Unavailable KANU, GENNY Unavailable [address] + [place] [address] D Unavailable Unavailable Unavailable KANU, GENNY Unavailable [address] + [place] [address] D Unavailable Unavailable Unavailable KANU, GENNY Unavailable [address] + [place] [address] D Unavailable Unavailable Unavailable KANU, GENNY Unavailable [address] + [place] [address] D Unavailable Unavailable Unavailable KANU, GENNY Unavailable [address] + [place] [address] D Unavailable Unavailable Unavailable KANU, GENNY Unavailable [address] + [place] [address] D Unavailable Unavailable Unavailable KANU, GENNY Unavailable [address] + [place] [address] D Unavailable Unavailable Unavailable KANU, GENNY Unavailable [address] + [place] [address] D Unavailable Unavailable Unavailable KANU, GNENY Unavailable [address] + [place] [address] D Unavailable Unavailable Unavailable KANU, GENNY Unavailable [address] + [place] [address] D Unavailable Unavailable Unavailable KANU, GENNY Unavailable [address] + [place] [address] Reno, Genny Unavailable Unavailable + Kanu Monica Unavailable Unavailable + Kanu, Genny Unavailable Unavailable + Kanu, Monica Unavailable Unavailable + KANU, GENNY Unavailable [address] + [address] [place] [address] KANU, GENNY Unavailable [address] + [address] [place] [address] Reno, Genny Unavailable Unavailable + Reno, Monica Unavailable Unavailable + Reno, Genny Unavailable Unavailable + Kanu, Monica Unavailable Unavailable + Reno, Genny Unavailable Unavailable + Kanu, Monica Unavailable Unavailable + Kanu, Genny Unavailable Unavailable + Reno, Monica Unavailable Unavailable + KANU, GENNY Unavailable [address] + [address] [place] [address] KANU, GENNY Unavailable [address] + [address] [place] [address] Reno, Genny Unavailable Unavailable + Reno, Monica Unavailable Unavailable + Kanu, Genny Unavailable Unavailable + Kanu, Monica Unavailable Unavailable + D Unavailable Unavailable Unavailable KANU, GENNY Unavailable [address] + [place] [address] Kanu, Genny Unavailable Unavailable + Reno, Monica Unavailable Unavailable + Kanu, Genny Unavailable Unavailable + Reno, Monica Unavailable Unavailable + Kanu, Genny Unavailable Unavailable + Kanu, Monica Unavailable Unavailable + Kanu, Genny Unavailable Unavailable + Reno, Monica Unavailable Unavailable + Kanu, Genny Unavailable Unavailable + Kanu, Monica Unavailable Unavailable + KANU, GENNY Unavailable [address] + [address] [place] [address] KANU, GENNY Unavailable [address] + [address] [place] [address] D Unavailable Unavailable Unavailable KANU, GENNY Unavailable [address] + [place] [address] Kanu, Genny Unavailable Unavailable + Reno, Monica Unavailable Unavailable + Kanu, Genny Unavailable Unavailable + Kanu, Monica Unavailable Unavailable + Reno, Genny Unavailable Unavailable + Kanu, Monica Unavailable Unavailable + Reno, Genny Unavailable Unavailable + Kanu, Monica Unavailable Unavailable + Reno, Genny Unavailable Unavailable + Kanu, Monica Unavailable Unavailable + D Unavailable Unavailable Unavailable KANU, GENNY Unavailable [address] + [place] [address] D Unavailable Unavailable Unavailable KANU, GENNY Unavailable [address] + [place] [address] Kanu, Genny Unavailable Unavailable + Kanu, Monica Unavailable Unavailable + D Unavailable Unavailable Unavailable KANU, GENNY Unavailable [address] + [place] [address] Reno, Genny Unavailable Unavailable + Reno, Monica Unavailable Unavailable + Reno, Genny Unavailable Unavailable + Reno, Monica Unavailable Unavailable + D Unavailable Unavailable Unavailable KANU, GENNY Unavailable Unavailable + D Unavailable Unavailable Unavailable KANU, GENNY Unavailable Unavailable + Reno, Genny Unavailable Unavailable + Reno, Monica Unavailable Unavailable + Kanu, Genny Unavailable Unavailable + Kanu, Monica Unavailable Unavailable + D Unavailable Unavailable Unavailable KANU, GENNY Unavailable Unavailable + Reno, Genny Unavailable Unavailable + Kanu, Monica Unavailable Unavailable + Reno, Genny Unavailable Unavailable + Kanu, Monica Unavailable Unavailable + Reno, Genny Unavailable Unavailable + Reno, Monica Unavailable Unavailable + D Unavailable Unavailable Unavailable KANU, GENNY Unavailable Unavailable + D Unavailable Unavailable Unavailable KANU, GENNY Unavailable Unavailable + Kanu, Genny Unavailable Unavailable + Kanu, Monica Unavailable Unavailable + Reno, Genny Unavailable Unavailable + Kanu, Monica Unavailable Unavailable + Kanu, Genny Unavailable Unavailable + Kanu, Monica Unavailable Unavailable + Care Team Providers Name Role Phone Kelsey Greene Attending Unavailable Oleghe, Efewongbe Primary Care Unavailable Cale Magana MAIL 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-C Consulting Unavailable Alicia Kinney Referring Unavailable Oleghe, Efewongbe Primary Care Unavailable Ashelfah, Ghasem Admitting Unavailable Cale Nur Attending Unavailable Oleghe, Efewongbe Attending Unavailable EMILE HINES Referring Unavailable Oleghe, Efewongbe Attending Unavailable EMILE HINES Referring Unavailable Oleghe, Efewongbe Attending Unavailable Oleghe, Efewongbe Referring Unavailable Oleghe, Efewongbe Attending Unavailable Oleghe, Efewongbe Referring Unavailable Oleghe, Efewongbe Attending Unavailable Oleghe, Efewongbe Referring Unavailable Oleghe, Efewongbe Attending Unavailable Oleghe, Efewongbe Referring Unavailable Oleghe, Efewongbe Primary Care Unavailable Oleghe, Efewongbe Attending Unavailable Oleghe, Efewongbe Referring Unavailable Oleghe, Efewongbe Attending Unavailable EMILE HINES Referring Unavailable Primay Care Physicia, No Primary Care Unavailable Oleghe, Efewongbe Attending Unavailable Oleghe, Efewongbe Referring Unavailable Oleghe, Efewongbe Primary Care Unavailable Oleghe, Efewongbe Attending Unavailable Oleghe, Efewongbe Referring Unavailable Oleghe, Efewongbe Primary Care Unavailable Keke Mcintosh Attending Unavailable Ashelfah, Ghasem Admitting Unavailable Ashelfah, Ghasem Attending Unavailable Oleghe, Efewongbe Primary Care Unavailable Ashelfah, Ghasem Consulting Unavailable Ashelfah, Ghasem Admitting Unavailable MaganaCale MAIL 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-C Attending Unavailable Oleghe, Efewongbe Primary Care Unavailable Tereletsky, Cale Consulting Unavailable Ashelfah, Ghasem Admitting Unavailable Tereletsky, Cale Attending Unavailable Oleghe, Efewongbe Primary Care Unavailable Terjoyce, Cale Consulting Unavailable Ashelfah, Ghasem Admitting Unavailable Tereletspete, Cale Attending Unavailable Oleghe, Efewongbe Primary Care Unavailable Terjoyce, Cale Consulting Unavailable MaganaCale MAIL 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-C Attending Unavailable Oleghe, Efewongbe Primary Care Unavailable Oleghe, Efewongbe Attending Unavailable Oleghe, Efewongbe Referring Unavailable Oleghe, Efewongbe Primary Care Unavailable Magana, Cale MAIL 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-C Attending Unavailable Oleghe, Efewongbe Referring Unavailable MaganaCale MAIL 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-C Attending Unavailable Oleghe, Efewongbe Referring Unavailable Ingrid Hanley Attending Unavailable MaganaCale MAIL 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-C Attending Unavailable Oleghe, Efewongbe Primary Care Unavailable MaganaCale MAIL 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-C Attending Unavailable Oleghe, Efewongbe Primary Care Unavailable Cale Magana MAIL 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-C Consulting Unavailable MaganaCale MAIL 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-C Attending Unavailable Oleghe, Efewongbe Primary Care Unavailable Cale Magana MAIL 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-C Consulting Unavailable Cale Magana MAIL 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-C Attending Unavailable Oleghe, Efewongbe Primary Care Unavailable Cale Magana MAIL 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-C Attending Unavailable Oleghe, Efewongbe Primary Care Unavailable MaganaCale MAIL 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-C Consulting Unavailable Selwyn Liu Attending Unavailable Oleghe, Efewongbe Referring Unavailable NONA JOHNSON MD Attending Unavailable NONA JOHNSON MD. Primary Care Unavailable MAITE ACEVEDO, ALICIA R. Attending Unavailable NONA JOHNSON MD. Primary Care Unavailable NONA JOHNSON MD. Primary Care Unavailable RASHEEDA MONTANEZ MD Admitting Unavailable EFREN ACEVEDO, NEHEMIAH Attending Unavailable NONA JOHNSON MD Consulting Unavailable PAMELA ZAMORA MD Consulting Unavailable MICHAEL BOWMAN MD Consulting Unavailable YANICK ANDREWS MD, BA. Consulting Unavailable CUATE ACEVEDO [place] Consulting Unavailable FERNANDA ACEVEDO, ROXANE Consulting Unavailable JACKIE HOLDEN, DR. FELICIANO Consulting Unavailable PROVIDER, UNKNOWN Referring Unavailable Sridhar, Baldo Primary Care Unavailable Moo Luciano Attending Unavailable Mustapha, Moo Attending Unavailable PROVIDER, UNKNOWN Referring Unavailable Sridhar, Baldo Primary Care Unavailable Mustapha, Moo Attending Unavailable PROVIDER, UNKNOWN Referring Unavailable Sridhar, Baldo Primary Care Unavailable Mustapha, Moo Attending Unavailable PROVIDER, UNKNOWN Referring Unavailable Sridhar, Baldo Primary Care Unavailable Mustapha, Moo Attending Unavailable PROVIDER, UNKNOWN Referring Unavailable Sridhar, Baldo Primary Care Unavailable Mustapha, Moo Attending Unavailable PROVIDER, UNKNOWN Referring Unavailable Sridhar, Baldo Primary Care Unavailable Mustapha, Moo Attending Unavailable PROVIDER, UNKNOWN Referring Unavailable Sridhar, Baldo Primary Care Unavailable PROVIDER, UNKNOWN Referring Unavailable Sridhar, Baldo Primary Care Unavailable Kathy Nunez Attending Unavailable Moo Luciano Attending Unavailable PROVIDER, UNKNOWN Referring Unavailable Sridhar, Baldo Primary Care Unavailable Moo Luciano Attending Unavailable PROVIDER, UNKNOWN Referring Unavailable Sridhar, Baldo Primary Care Unavailable PROVIDER, UNKNOWN Referring Unavailable Sridhar, Baldo Primary Care Unavailable Kathy Nunez Attending Unavailable Moo Luciano Attending Unavailable PROVIDER, UNKNOWN Referring Unavailable Sridhar, Baldo Primary Care Unavailable Michaelle Vann Attending Unavailable PROVIDER, UNKNOWN Referring Unavailable Sridhar, Baldo Primary Care Unavailable Michaelle Vann Attending Unavailable PROVIDER, UNKNOWN Referring Unavailable Sridhar, Baldo Primary Care Unavailable Benoit Taylor Attending Unavailable PROVIDER, UNKNOWN Referring Unavailable Sridhar, Baldo Primary Care Unavailable Michaelle Vann Attending Unavailable PROVIDER, UNKNOWN Referring Unavailable Sridhar, Baldo Primary Care Unavailable PROVIDER, UNKNOWN Referring Unavailable Sridhar, Baldo Primary Care Unavailable Benoit Taylor Attending Unavailable PROVIDER, UNKNOWN Referring Unavailable Sridhar, Baldo Primary Care Unavailable Moo Luciano Attending Unavailable PROVIDER, UNKNOWN Referring Unavailable Sridhar, Baldo Primary Care Unavailable Michaelle Vann Attending Unavailable PEDRO BOSTON Attending Unavailable PROVIDER, UNKNOWN Referring Unavailable Sridhar, Baldo Primary Care Unavailable DAVID PANIAGUA Attending Unavailable PROVIDER, UNKNOWN Referring Unavailable Sridhar, Baldo Primary Care Unavailable Benoit Taylor Attending Unavailable PROVIDER, UNKNOWN Referring Unavailable Sridhar, Baldo Primary Care Unavailable Zografakis, Benoit Attending Unavailable PROVIDER, UNKNOWN Referring Unavailable Sridhar, Baldo Primary Care Unavailable PROVIDER, UNKNOWN Referring Unavailable Sridhar, Baldo Primary Care Unavailable BRIDLE, DAVID R. Attending Unavailable PROVIDER, UNKNOWN Referring Unavailable Sridhar, Baldo Primary Care Unavailable BRIDLE, DAVID R. Attending Unavailable PROVIDER, UNKNOWN Referring Unavailable Srihdar, Baldo Primary Care Unavailable Kathy Nunez Attending Unavailable PROVIDER, UNKNOWN Referring Unavailable Sridhar, Baldo Primary Care Unavailable PROVIDER, UNKNOWN Referring Unavailable Sridhar, Baldo Primary Care Unavailable Kathy Nunez Attending Unavailable BRIDLE, DAVID R. Attending Unavailable PROVIDER, UNKNOWN Referring Unavailable Sridhar, Baldo Primary Care Unavailable Al Nemr, Yanick Attending Unavailable Al Nemr, Yanick Attending Unavailable Al Nemr, Yanick Attending Unavailable Al Nemr, Yanick Attending Unavailable PROBLEMS PROBLEMS DATE TYPE CONDITION / CODE ATTENDING STATUS SOURCE 08/15/2018 Unknown E66.9 - Obesity, Noe, [place] Active [facility] unspecified / Community E66.9(ICD-10) Hospital Repository 08/15/2018 Unknown I10 - Essential Noe, [place] Active [facility] (primary) Community hypertension / Hospital I10(ICD-10) Repository 08/15/2018 Unknown I26.99 - Other Noe, [place] Active [facility] pulmonary embolism Community without acute cor Hospital pulmonale / Repository I26.99(ICD-10) 08/15/2018 Unknown I50.32 - Chronic Noe, [place] Active [facility] diastolic Community (congestive) heart Hospital failure / Repository I50.32(ICD-10) 05/15/2018 Admitting Unknown / Al Yanick Monte Active [facility] Medical diagnosis UNK(Unknown) [facility] [place] Repository 04/09/2018 Admitting Essential (primary) Kathy Nunez [facility] Diagnosis hypertension / System I10(ICD-10) Repository 04/09/2018 Admitting Lymphedema, not Perri Nunezasha [facility] Diagnosis elsewhere classified System / I89.0(ICD-10) Repository 03/08/2018 Admitting Body mass index Kathy Nunez [facility] Diagnosis (BMI) 70 or greater, System adult / Repository Z68.45(ICD-10) 02/02/2018 Admitting Obstructive sleep Moo Luciano [facility] Diagnosis apnea (adult) System (pediatric) / Repository G47.33(ICD-10) 02/02/2018 Admitting Morbid (severe) Moo Luciano [facility] Diagnosis obesity due to System excess calories / Repository E66.01(ICD-10) 01/04/2018 Admitting Hyperlipidemia, DAVID PANIAGUA [facility] Diagnosis unspecified / R. System E78.5(ICD-10) Repository 01/04/2018 Admitting Somnolence / DAVID PANIAGUA Active [employer] Diagnosis R40.0(ICD-10) R. System Repository 01/04/2018 Admitting Generalized BRIDLEDAVID [facility] Diagnosis abdominal pain / R. System R10.84(ICD-10) Repository 12/27/2017 Admitting Shortness of breath PEDRO BOSTON [facility] Diagnosis / R06.02(ICD-10) System Repository 12/27/2017 Admitting Major depressv Edwar, [facility] Diagnosis disord, single epsd, [facility] System sev w/o psych Repository features / F32.2(ICD-10) 12/27/2017 Admitting Binge eating Vann [facility] Diagnosis disorder / [facility] System F50.81(ICD-10) Repository 05/08/2018 Unknown I89.0 - Lymphedema, Oleghe, Active [facility] not elsewhere [facility] classified / Hospital I89.0(ICD-10) Repository 12/05/2017 Unknown I73.9 - Peripheral Oleghe, Active [facility] vascular disease, [facility] unspecified / Hospital I73.9(ICD-10) Repository 12/05/2017 Unknown I25.10 - Oleghe, Active [facility] 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 / I25.10(ICD-10) 12/05/2017 Unknown I50.9 - Heart Oleghe, Active [facility] failure, unspecified [facility] / I50.9(ICD-10) Hospital Repository 12/04/2017 Admitting Other fatigue / Kathy Nunez Active [employer] [facility] Diagnosis R53.83(ICD-10) System Repository 11/23/2017 Unknown L97.921 - Oleghe, Active [facility] Non-pressure chronic [facility] ulcer of unspecified Hospital part of left lower Repository leg limited to breakdown of skin / L97.921(ICD-10) 11/09/2017 Admitting Eating disorder, Edwar, Active [facility] Diagnosis unspecified / Michaelle System F50.9(ICD-10) Repository 11/09/2017 Unknown R09.89 - Other Elizabeth Rupali [facility] specified symptoms [facility] and signs involving Hospital the circulatory and Repository respiratory systems / R09.89(ICD-10) PROCEDURES PROCEDURES No Procedure Records FoundRESULTS RESULTS DISCHARGE SUMMARY Observed: 09/09/2018 Status: F Source: [place] 6:56 PM [facility] REPOSITORY [facility] Medical Records Department [address] [place] [address] Discharge Summary 09/09/18 1851 MR#: [id number] Acct: [id number] Name: HOMERO BOBBY Rep #: [id number] : 1975 43 From: Cale Nur DO PCP: Nona Johnson MD Status: DIS IN Y Location: [facility] TN136-3 Discharge Date and Diagnosis Date of Admission: 09/06/18 Date of Discharge: 09/08/18 - Primary Discharge Diagnosis #1 cellulitis of the left leg-methicillin sensitive staph aureus and gram-negative em suspected to be Proteus #2 super morbid obesity #3 Severe lower extremity lymphedema #4 chronic diastolic congestive heart failure #5 essential hypertension #6 suspected recent pulmonary embolism-present on admission #7 suspected noncompliance - Secondary Discharge Diagnosis Chronic Problems (Last Updated 09/06/18 @ 19:32 by Dex Jose MD) Nonhealing ulcer of left lower extremity with fat layer exposed (Chronic) Chronic acquired lymphedema (Chronic) Ulcer of left thigh (Chronic) Chronic diastolic heart failure (Chronic) Super obesity (Chronic) Essential (primary) hypertension (Chronic) Hospital Course and Treatment Consultations 09/06/18 20:11 Consult: 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 Patient had been seen at the wound care center for ongoing care. Wound care center sent the patient to the ER for evaluation and possible admission. Examination in the emergency room included labs which showed a normal white blood cell count on his CBC, hemoglobin was 10.6, chemistry studies were normal. Lactic acid was normal. Blood cultures were obtained. Examination of the patient's legs revealed severe lymphedema bilaterally, there were some draining areas on the patient's left upper and left lower leg. Patient was admitted for left lower extremity cellulitis, he was treated with IV antibiotics, cultures were positive for methicillin sensitive staph aureus and a gram-negative em felt to be Proteus. Patient was seen by the wound care nurse. On 09/08/18, patient was seen and examined: On examination he appeared in good health and spirits. Vital signs as documented. Skin warm and dry and without overt rashes. Neck without JVD. Lungs clear. Heart exam notable for regular rhythm, normal sounds and absence of murmurs, rubs or gallops. Abdomen unremarkable and without evidence of organomegaly, masses, or abdominal aortic enlargement-patient is super obese. Extremities-severe lymphedematous changes are noted over patient's legs, there are 2 open areas on the patient's left thigh and left lower leg which are covered with dressing. Neuro: Cranial nerves II through XII are grossly intact, no focal motor deficits were noted. Psych: Patient was alert and oriented x3, he did not seem depressed or anxious. On 09/08/18, patient was seen and examined felt to be in stable condition for discharge home - Physical Exam Vital Signs Temp Pulse Resp BP Pulse Ox 97.9 F 74 16 152/93 H 95 09/08/18 09:40 09/08/18 09:40 09/08/18 09:40 09/08/18 09:40 09/08/18 09:40 Oxygen Flow Rate (L/min) 3 Oxygen Delivery Method Room Air Weight: 297.103 kg Body Mass Index (BMI) 75.6 Intake and Output for Last 24 Hours Intake Total 1440 / 1440 915 / 915 Output Total 3350 / 3350 1425 / 1425 Balance -1910 / -1910 -510 / -510 Microbiology Past 72 Hours 09/06/18 19:08 Gram Stain - Final Discharge Activity: Return to Normal Activity Weight Bearing Status: Full weight bearing Home Medications: Medications to take at Discharge ALPRAZolam [Xanax] 0.125 mg PO TID PRN PRN 11/02/17 Atorvastatin Calcium [Lipitor] 40 mg PO QHS 09/06/18 Furosemide 40 mg PO DAILY 09/06/18 Lisinopril 20 mg PO DAILY 09/06/18 Omeprazole 20 mg PO DAILY 09/06/18 Rivaroxaban [Xarelto] 20 mg PO DAILY 09/06/18 Sertraline HCl [Zoloft] 150 mg PO DAILY 09/06/18 Acetaminophen [Tylenol Tablet] 650 mg PO Q6H PRN PRN tablet 09/08/18 Cefdinir [Omnicef [equiv]] 300 mg PO BID #28 capsule 09/08/18 Furosemide [Lasix] 40 mg PO DAILY tablet 09/08/18 Nystatin Powder [Mycostatin Powder] 1 applic TOPICAL BID #1 bottle 09/08/18 Rivaroxaban [Xarelto] 20 mg PO DAILYCM tablet 09/08/18 Following Prescrptions Were Given to Patient: Cefdinir [Omnicef [equiv]] 300 mg PO BID #28 capsule Nystatin Powder [Mycostatin Powder] 1 applic TOPICAL BID #1 bottle Primary Care Physician: Nona Johnson MD [Primary Care Provider] - Please follow up with your Primary Care Physician in: in 1- 2 weeks Please Follow Up With: wound center When: within 7-10 days Disposition: Home Minutes spent on discharge:: 32 Patient Condition:: Stable Medical Necessity - Tobacco Use Smoking Status: Former smoker Tobacco Use: Cigarettes, Chew Meaningful Use Info Meaningful Use Diagnoses (Choose all that apply): None applicable Code Visit Inpatient E AND M: 52163 Disch Hosp 09/09/18 1856 <Electronically signed by Cale Nur DO> Date Cale Nur DO Cosigner Signature (if applicable): Date CC: Nona Johnson MD; Cale Nur DO Signed DISCHARGE INSTRUCTION Observed: 09/08/2018 Status: F Source: [facility] 11:48 AM [facility] Medical Records Department [address] [place] [address] Instructions for Home/Discharge Instructions 09/08/18 1146 MR#: [id number] Acct: [id number] Name: HOMERO BOBBY Rep #: [id number] : 1975 43 From: Cale Nur DO PCP: Nona Johnson MD Status: ADM IN - Discharge Diagnoses Current Active Problems: Current Active and Chronic Problems (Last Updated 09/06/18 @ 19:32 by Dex Jose MD) Nonhealing ulcer of left lower extremity with fat layer exposed (Chronic) Chronic acquired lymphedema (Chronic) Ulcer of left thigh (Chronic) Super obesity (Chronic) You will use the following diet at home:: No restrictions Your food should be the consistency of: Regular Your liquids should be the consistency of: Regular/Thin Discharge Activity: Return to Normal Activity Weight Bearing Status: Full weight bearing Additional Instructions: Continue present wound care to both leg wound areas Allergies/Adverse Reactions: Allergies Penicillins Allergy (Verified 08/15/18 15:12) Unknown Medications to take at Discharge ALPRAZolam [Xanax] 0.125 mg PO TID PRN PRN 11/02/17 Atorvastatin Calcium [Lipitor] 40 mg PO QHS 09/06/18 Furosemide 40 mg PO DAILY 09/06/18 Lisinopril 20 mg PO DAILY 09/06/18 Omeprazole 20 mg PO DAILY 09/06/18 Rivaroxaban [Xarelto] 20 mg PO DAILY 09/06/18 Sertraline HCl [Zoloft] 150 mg PO DAILY 09/06/18 Acetaminophen [Tylenol Tablet] 650 mg PO Q6H PRN PRN tablet 09/08/18 Cefdinir [Omnicef [equiv]] 300 mg PO BID #28 capsule 09/08/18 Furosemide [Lasix] 40 mg PO DAILY tablet 09/08/18 Nystatin Powder [Mycostatin Powder] 1 applic TOPICAL BID #1 bottle 09/08/18 Rivaroxaban [Xarelto] 20 mg PO DAILYCM tablet 09/08/18 The following prescriptions were given: Cefdinir [Omnicef [equiv]] 300 mg PO BID #28 capsule Nystatin Powder [Mycostatin Powder] 1 applic TOPICAL BID #1 bottle Primary Care Physician: Nona Johnson MD [Primary Care Provider] - Please follow up with your Primary Care Physician in: in 1- 2 weeks Test Results: Test results from this visit will be discussed in further detail at your follow-up appointment, if applicable. Please Follow Up With: wound center When: within 7-10 days 09/08/18 1148 <Electronically signed by Cale Nur DO> Date Cale Nur DO CC: Nona Johnson MD Signed CBC W/DIFF, AUTOMATED Collected: 09/07/2018 Status: F Source: [place] 5:34 AM [facility] TYPE CODE TESTS RESULT OUT OF RANGE REFERENCE UNITS LAB L100.1000 4.4-11.0 K/mm3 Normal WBC 6.1 LAB L100.1200 4.6-6.2 M/mm3 Low RBC 4.35 LAB L100.1300 13.0-16.5 g/dl Low HGB 10.1 LAB L100.1400 40-54 % Low HCT 32.9 LAB L100.1500 80-94 fL Low MCV 75.6 LAB L100.1600 27.0-32.0 pg Low MCH 23.2 LAB L100.1700 32-36 g/gl Low MCHC 30.7 LAB L100.1810 11.6-14.6 % High RDW CV 18.7 LAB L100.1820 35.1-43.9 fl High RDW SD 52.1 LAB L100.1900 150-450 K/mm3 Normal PLT 217 LAB L100.2000 6.2-12.0 fl Normal MPV 8.8 LAB L100.2100 47-70 % High NEUT% 73.4 LAB L100.2200 19-41 % Low LY% 16.2 LAB L100.2300 0-10 % Normal MONO% 7.2 LAB L100.2400 0-5 % Normal EO% 2.5 LAB L100.2500 0-1 % Normal BASO% 0.5 LAB L100.2550 0.0-0.9 % Normal IM GRAN % 0.200 Result Comment: IG% - Immature Granulocytes (promyelocytes, myelocytes and metamyelocytes) > 1% indicates that a LEFT SHIFT is Present. LAB L100.2620 2.0-7.7 X10 3/uL Normal Absolute Neut 4.5 LAB L100.2720 0.83-4.51 X10 3/ul Normal Absolute Lymph 0.99 Performed By: #### L100.0100 #### [facility] [address] [place], [address] BASIC METABOLIC Collected: 09/07/2018 Status: F Source: [place] PROFILE (BMP) 5:34 AM [facility] [place] TYPE CODE TESTS RESULT OUT OF RANGE REFERENCE UNITS LAB L501.0100 74-106 mg/dL High GLU 112 Result Comment: Fasting Glucose result from 100 to 125 mg/dL suggests IMPAIRED HOMEOSTASIS per A.D.A. criteria. Please note revised GLUCOSE reference range effective 2017. LAB L501.1000 7-18 mg/dL Normal BUN 11 LAB L501.1100 0.70-1.30 mg/dL Normal CREAT,SERUM 0.76 Result Comment: The validity of the calculated GFR AND GFRAA in patients over 70 years has not been determined. Clinical correlation is essential. LAB L501.1110 >60 mL/min Normal EST GFR 118 Result Comment: Non- GFR Calc LAB L501.1115 >60 mL/min Normal EST GFR - AA 143 Result Comment: GFR Calc LAB L501.1255 ml/min Normal Estimated CRCL 160.35 LAB L501.1300 10-20 RATIO BUN/CRE Normal 14.5 LAB L501.2200 8.5-10 mg/dL Low .1 CA 8.1 LAB L501.5300 136-14 mmol/L 5 NA Normal 141 LAB L501.5600 3.5-5. mmol/L 1 K Normal 4.0 LAB L501.5900 98-107 mmol/L CL Normal 105 LAB L501.6100 21.0-3 mmol/L 2.0 CO2 Normal 29.0 LAB L501.6200 5-15 GAP Normal 7 Performed By: #### L500.2500 #### [facility] [address] [place], [address] WRIST MIN 3 VIEWS Observed: 09/07/2018 Status: F Source: [place] 4:55 AM [facility] Imaging [place] [address] Wrist min 3 Views MR#: [id number] Acct: [id number] Name: HOMERO BOBBY Rep #: [id number] : 1975 M 43 From: Emmy Tate MD PCP: Nona Johnson MD Status: ADM MISHA Study: Wrist min 3 Views Date of Exam: 09/07/18 Exam# [id number] Ordering Dr: Reji Trinidad MD STUDY: X-RAY - RIGHT WRIST REASON FOR EXAM: Male, 43 years old. Right-sided wrist pain after falling yesterday. TECHNIQUE: 3 view(s) of the wrist were obtained. COMPARISON: Prior comparison studies are not available for review at this time. FINDINGS: Normal visualized distal radius and ulna. Normal radiocarpal articulation. There is degenerative arthrosis of the distal radioulnar articulation. Normal carpal bones. Normal carpal articulations. Normal carpometacarpal articulation of the thumb. Normal second through fifth carpometacarpal articulations. Normal visualized metacarpal bones. There is moderate soft tissue swelling. There is no demonstrated acute fracture. RAD/Wrist min 3 Views IMPRESSION: 1. Soft tissue swelling and degenerative arthropathy. 2. No definite evidence for acute fracture. If there is still clinical concern for acute fracture, follow-up radiographs in 7-10 days maybe helpful in evaluating a healing radiographically occult fracture. Electronically Signed: Emmy Tate MD at 5:51 EST , Service support , CC: Nona Johnson MD; Reji Trinidad MD Driver/Sales Workers: Signed EMERGENCY DEPARTMENT Observed: 09/06/2018 Status: F Source: [place] SUMMARY 11:36 PM [facility] Medical Records Department [address] [place] [address] Emergency Department Summary 09/06/18 1852 MR#: [id number] Acct: [id number] Name: HOMERO BOBBY Rep #: [id number] : 1975 43 From: Michaelle Garcia MD PCP: Nona Johnson MD Status: ADM MISHA - ER Visit Summary Date of Service: 09/06/18 Chief Complaint: Left thigh infection History of Present Illness: The patient is a 43 M with history of morbid obesity. He has chronic lower extremity wounds and lymphedema. He is been following with the wound center twice a week. He has had increased drainage from 2 separate areas on his left leg over the past couple of days along with generalized weakness and mild chills. He went to the wound center today and was sent to the ER for IV antibiotics. He does normally ambulate with the aid of crutches. When walking out to his car from the wound center he did fall. He denies injury from the fall, just states he feels achy. Physical Examination: Vital signs are unremarkable. He is afebrile at 98.1. Patient is lying in bed no acute distress. Head neck examination is unremarkable. Heart is regular rate and rhythm. Lungs sounds are clear. Abdomen is soft, obese, nontender. Lower extremity examination was chronic lymphedema to the bilateral legs. Skin is so edematous that he has fissures in his skin. There is an area on the left upper leg with erythema and warmth consistent with mild cellulitis along with a focal area of purulent drainage from between the skin fissures. There is purulent oozing from between the skin fissures on the anterior lower leg as well. Test Results: CBC was normal white count with 75% neutrophils. Hemoglobin is 10.6. Chemistry studies normal. Lactate is normal. Blood cultures were sent. Emergency Department Course and Treatment: Patient was given a dose of IV clindamycin here. He has a penicillin allergy. Patient did stand at bedside to urinate while here nursing staff did advise that he was extremely weak. At this point I think he would benefit from overnight hospitalization with IV antibiotics, wound care, and physical therapy evaluation due to his weakness. Treatment Plan: [] Disposition: Admit Impression: 1. Left lower extremely cellulitis 2. Lymphedema with acute on chronic wounds 3. Generalized weakness This note was generated with [employer] dictation software. It may contain incorrect words, spelling, and punctuation that were not noted in review of the chart prior to signing ED Disposition - Plan for ED Patient: Chief Complaint: Lower Extremity Injury Referrals: Nona Johnson MD [Primary Care Provider] - What to do if you have Problems For any increased pain, shortness of breath, bleeding, nausea or vomiting, chest pain, or any unexpected problems, contact your Primary Care Provider. Call [facility] ([phone]) or report to the closest Emergency Room. Call 911 if necessary. 09/06/18 2336 <Electronically signed by Michaelle Garcia MD> Date Michaelle Garcia MD Cosigner Signature (If Indicated): Date CC: Nona Johnson MD MRSA WOUND DNA BY Collected: 09/06/2018 Status: F Source: [place] PCR 8:45 PM [facility] Order Comment: Specimen Source? LLE TYPE CODE TESTS RESULT OUT OF RANGE REFERENCE UNITS LAB L8200.1100 Negative Normal MRSA Negative RESULT LAB L8200.1150 Negative High SA RESULT POSITIVE Performed By: #### L8200.1075 #### [facility] [address] 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 The patient is a 43 year old M with past medical history as mentioned above who had a history of chronic bilateral lower extremity lymphedema, chronic recurrent bilateral leg wounds was sent from the wound care center today to the emergency department for evaluation and probable admission. Patient has been following up with the wound care center for left thigh and left leg infected nonhealing wounds. His mentioned that over the last couple of days, he has been having increased drainage, swelling and erythema of the wound on the left thigh as well as left leg, associated with chills and weakness and without aggravating or relieving factors. Today, when he was walking out of the wound care center to his car, he had a mechanical fall. He denies any significant head or body injury. He denied prodromal symptoms such as dizziness, lightheadedness, syncope or presyncope. He did report that he is feeling weak and tired as well as generalized body aches. He had a history of chronic diastolic CHF and he has been on diuretics and GRACIA inhibitors and has been stable. Recently, he was started on Xarelto for suspected pulmonary embolism and apparently, this treatment started empirically because of high suspicion of PE although no CTA chest or VQ scan done. He had a history of hypertension which has been under control with lisinopril. In the emergency department, he was afebrile, blood pressure and heart rate are stable, pulse ox was maintained on room air. His routine blood work was remarkable for chronic anemia with hemoglobin of 10.6 g/dL, otherwise normal. Lactic acid was normal. He is being admitted for left thigh and left leg nonhealing infected ulcer/wounds with surrounding cellulitis. Past Medical History Past Medical History (Chronic Problems): Chronic Problems (Last Updated 09/06/18 @ 19:32 by Dex Jose MD) Nonhealing ulcer of left lower extremity with fat layer exposed (Chronic) Chronic acquired lymphedema (Chronic) Ulcer of left thigh (Chronic) Chronic diastolic heart failure (Chronic) Super obesity (Chronic) Essential (primary) hypertension (Chronic) Medical History: Medical History (Last Updated 09/06/18 @ 19:32 by Dex Jose MD) Pulmonary embolism (Suspected) I26.99 Chronic diastolic heart failure (Chronic) I50.32 Super obesity (Chronic) E66.9 Essential (primary) hypertension (Chronic) I10 Anxiety and depression F41.9, F32.9 Cellulitis L03.90 Emphysema of lung J43.9 Lymphedema I89.0 Obstructive sleep apnea G47.33 Osteoarthritis M19.90 Peripheral vascular disease I73.9 Allergies Penicillins Allergy (Verified 08/15/18 15:12) Unknown Home Medications: Ambulatory Orders Medication Instructions Recorded Surgical History: - - Surgery for cleft lip and cleft palate long time ago. Psychiatric History: Depression Lives: Spouse/ Significant Other Smoking Status: Former smoker Alcohol: None Drugs: None - *Family History Maternal Family History: Family History (Last Reviewed 08/15/18 @ 15:52 by Selwyn Liu MD) Father Myocardial infarction Hypertension Heart disease Arthritis Cancer History Items: No pertinent history Paternal Family History: Family History (Last Reviewed 08/15/18 @ 15:52 by Selwyn Liu MD) Father Myocardial infarction Hypertension Heart disease Arthritis Cancer History Items: No pertinent history Review of Systems Constitutional: Reports: Chills, Weakness, Fatigue. Denies: Anorexia, Fever Eyes: Denies: Blurred vision, Double vision, Drainage, Redness HEENT: Denies: Difficulty Hearing, Dysphasia, Ear Pain, Eye Pain, Nasal Congestion, Sore Throat Cardiovascular: Reports: Edema. Denies: Chest Pain, Chest Pressure, Chest Tightness, Light Headedness, Palpitations, Syncope Respiratory: Denies: Cough, Pleuritic Pain, Shortness of Breath, Sputum production, Wheezing Gastrointestinal: Denies: Abdominal Pain, Constipation, Diarrhea, Nausea, Vomiting Musculoskeletal: Denies: Arm Pain, Back Pain, Foot Pain Skin: Reports: Skin Changes, Wounds. Denies: Dryness, Rash Neurological: Denies: Balance problems, Blurred vision, Double vision, Change in Speech, Slurred speech, Confusion, Headaches, Incoordination, Numbness Psychiatric: Reports: Depression. Denies: Anxiety Endocrine: Denies: Change in Body Habitus, Polydipsia VTE Information - Inpt Only VTE Present on Admission: No VTE Mechan Device Prophylaxis: None VTE Pharm Prophylaxis ordered?: No - Physical Exam General: Alert, Oriented x3, Cooperative, No apparent distress HEENT: Atraumatic, PERRLA, EOMI, Normocephalic Oral: Moist Mucosa, No Gingival or Mucosal Lesions/ Ulcerations Neck: Supple, No JVD, Negative Carotid Bruits, Trachea Midline, Thyroid Normal Size and Texture Lungs: Clear to auscultation, No rhonchi, No wheeze, No rales, Diminished Cardiovascular: Regular rate, Regular Rhythm, Normal S1, Normal S2, PMI Normal Abdomen: Bowel Sounds Present, Soft, Non Tender, Non-Distended, No Hepato-splenomegaly, Obese Extremities: No clubbing, No cyanosis, Edema, - - He was extensive bilateral lower extremity lymphedema, skin changes. Area of induration surrounding and open wound on the left thigh with drainage. Open wound on the anterior aspect of the left leg with open wound and surrounding erythema. Skin: No rashes, Ulcer/ Wound, Excoriated Lymphatic: No Cervical, Supraclavicular, or Inguinal Adenopathy Neurological: Cranial nerves II-XII grossly intact, Motor Exam 5/5 strength throughout Psych/Mental Status: Normal Affect, Appropriate, Alert and oriented to time, place, person, mood and affect Vital Signs Temp Pulse Resp BP Pulse Ox 98.2 F 79 22 H 149/72 H 96 09/06/18 18:01 09/06/18 18:01 09/06/18 18:01 09/06/18 18:01 09/06/18 18:01 Oxygen Flow Rate (L/min) 4 Oxygen Delivery Method Nasal Cannula Weight: 657 lb Body Mass Index (BMI) 75.9 Laboratory Tests Past 24 Hrs Assessment/Plan This is a 43 years old male patient was referred to ED from the wound care center because of increasing drainage, erythema and swelling on an open wound on the left thigh and left leg and he is being admitted for infected nonhealing wounds on the left thigh and left leg with surrounding cellulitis. #1 infected nonhealing wounds of the left thigh/left leg/surrounding cellulitis: In context of history of extensive bilateral lower extremity lymphedema with history of recurrent nonhealing ulcers and wounds. At this time, no evidence of sepsis or severe sepsis. Vital signs are stable, afebrile, no leukocytosis. Lactic acid is normal. In the past, wound culture revealed Proteus mirabilis, Streptococcus agalactiae, MSSA and Morganella morganii. Plan: Admit to [facility] floor, wound culture, blood culture, start IV cefazolin and clindamycin, MRSA wound screen, wound care nurse consult, repeat CBC and BMP tomorrow morning, PT OT evaluation and treatment. #2 hypertension: Blood pressure stable, continue lisinopril and Lasix. #3 history of suspected pulmonary embolism: Respiratory status stable, pulse ox is maintained. Continue Xarelto. #4 chronic diastolic CHF: Clinically compensated, stable. Continue Lasix, lisinopril. #5 morbid obesity/extensive bilateral lower extremity lymphedema: Wound care nurse consult, PT OT evaluation and treatment. #6 depression: Continue Zoloft. #7 DVT prophylaxis: Continue Xarelto. This note was generated with [employer] dictation software. It may contain incorrect words, spelling, and punctuation that were not noted in checking the note before signing. Code Visit Inpatient E AND M: 08975 Init Hosp L3 09/06/18 193 <Electronically signed by Dex Jsoe MD> Date Dex Jose MD Cosigner Signature: Date (if applicable) CC: Nona Johnson MD; Dex Jose Signed Observed: 09/06/2018 Status: F Source: [place] CULTURE, DEEP WOUND 7:08 PM [facility] Order Date: 09/06/18 Gram Stain Gram Stain 4+ Gram positive cocci 4+ Gram negative rods No White Blood Cells 4+ Gram negative cocco bacillus Wound Culture ORGANISM 1: Staphylococcus aureus Amount Growth 3+ ORGANISM 2: Proteus mirabilis Amount Growth 3+ Staphylococcus aureus: REACTION Benzylpenicillin NF 0.12 R Cefoxitin *NF - Clindamycin $$ <=0.25 R Inducable Clindamycin Resistan + Erythromycin $ >=8 R Gentamicin $ <=0.5 S Levofloxacin $ 0.5 S Linezolid $$$$ 2 S Moxifloxicin *NF <=0.25 S Oxacillin NF <=0.25 S Tigecycline $$$$ <=0.12 S Rifampin $$ <=0.5 S Tetracycline NF <=1 S Trimethoprim/Sulfametho $ <=10 S Vancomycin $ 1 S (NF) indicates non-formulary drug at [facility]. Approval by Infectious Disease Specialist required before non-formulary drugs may be ordered and/or dispensed. * CLSI guidelines does not recommend testing of cephalosporins. This interpretation is deduced from Beta-lactam/penicillin results. Proteus mirabilis: REACTION Amoxacillin/Clavulanic Acid $ <=2 S Ampicillin $ <=2 S Ampicillin/Sulbactam $ <=2 S Cefazolin $ <=4 S Cefepime $ <=1 S Ceftriaxone $ <=1 S Ciprofloxacin $ <=0.25 S Ertapenim $$$ <=0.5 S Gentamicin $ <=1 S Levofloxacin $ <=0.12 S Piperacillin/Tazobactam $$ <=4 S Tobramycin $ <=1 S Trimethoprim/Sulfametho $ <=20 S (NF) indicates non-formulary drug at [facility]. Approval by Infectious Disease Specialist required before non-formulary drugs may be ordered and/or dispensed. Cult, Anaerobic #1 Studies have confirmed that Prevotella, Porphyromonas and Bacteroides species other than B. fragilis group are routinely susceptible to: Ampicillin/Sulbactam, Piperacillin/Tazobactam, Cefoxitin, Tigecycline, Ertapenem, Imipenem, Meropenem and Metronidazole and variable in resistance to: Penicillin/Ampicillin, Clindamycin and Moxifloxacin. #2 Studies have confirmed that Anaerobic Gram Positive Cocci are routinely susceptible to: Penicillin/Ampicillin, Ampicillin/Sulbactam, Piperacillin/Tazobactam, Cefoxatin, Ertapenem, Imipenem, Meropenem and Metronidazole and vary in resistance to: Clindamycin and Moxifloxacin. ORGANISM 1: Prevotella melaninogenica ORGANISM 2: Anaerobic cocci Performed By: #### M100.1500 #### [facility] [place], [address] CBC W/DIFF, AUTOMATED Collected: 09/06/2018 Status: F Source: [place] 4:45 PM [facility] TYPE CODE TESTS RESULT OUT OF RANGE REFERENCE UNITS LAB L100.1000 4.4-11.0 K/mm3 Normal WBC 6.2 LAB L100.1200 4.6-6.2 M/mm3 Low RBC 4.55 LAB L100.1300 13.0-16.5 g/dl Low HGB 10.6 LAB L100.1400 40-54 % Low HCT 33.8 LAB L100.1500 80-94 fL Low MCV 74.3 LAB L100.1600 27.0-32.0 pg Low MCH 23.3 LAB L100.1700 32-36 g/gl Low MCHC 31.4 LAB L100.1810 11.6-14.6 % High RDW CV 18.6 LAB L100.1820 35.1-43.9 fl High RDW SD 50.0 LAB L100.1900 150-450 K/mm3 Normal PLT 236 LAB L100.2000 6.2-12.0 fl Normal MPV 9.0 LAB L100.2100 47-70 % High NEUT% 74.7 LAB L100.2200 19-41 % Low LY% 12.7 LAB L100.2300 0-10 % Normal MONO% 9.6 LAB L100.2400 0-5 % Normal EO% 2.2 LAB L100.2500 0-1 % Normal BASO% 0.3 LAB L100.2550 0.0-0.9 % Normal IM GRAN % 0.500 Result Comment: IG% - Immature Granulocytes (promyelocytes, myelocytes and metamyelocytes) > 1% indicates that a LEFT SHIFT is Present. LAB L100.2620 2.0-7.7 X10 3/uL Normal Absolute Neut 4.7 LAB L100.2720 0.83-4.51 X10 3/ul Low Absolute Lymph 0.79 Performed By: #### L100.0100 #### [facility] [address] [place], [place], [id number] BASIC METABOLIC Collected: 09/06/2018 Status: F Source: [place] PROFILE (BMP) 4:45 PM [facility] TYPE CODE TESTS RESULT OUT OF RANGE REFERENCE UNITS LAB L501.0100 74-106 mg/dL Normal GLU 91 Result Comment: Please note revised GLUCOSE reference range effective 2017. LAB L501.1000 7-18 mg/dL Normal BUN 12 LAB L501.1100 0.70-1.30 mg/dL Normal CREAT,SERUM 0.88 Result Comment: The validity of the calculated GFR AND GFRAA in patients over 70 years has not been determined. Clinical correlation is essential. LAB L501.1110 >60 mL/min Normal EST GFR 100 Result Comment: Non- GFR Calc LAB L501.1115 >60 mL/min Normal EST GFR - AA 121 Result Comment: GFR Calc LAB L501.1255 ml/min Normal Estimated CRCL 138.48 LAB L501.1300 10-20 RATIO BUN/CRE Normal 13.6 LAB L501.2200 8.5-10 mg/dL Low .1 CA 8.3 LAB L501.5300 136-14 mmol/L 5 NA Normal 139 LAB L501.5600 3.5-5. mmol/L 1 K Normal 4.2 LAB L501.5900 98-107 mmol/L CL Normal 104 LAB L501.6100 21.0-3 mmol/L 2.0 CO2 Normal 31.0 LAB L501.6200 5-15 Low GAP 4 Performed By: #### L500.2500 #### [facility] [address] [place], [place], [id number] LACTIC ACID Collected: 09/06/2018 Status: F Source: [place] 4:45 PM [facility] Order Comment: Yes/No query for Sepsis Lactate Rule Y TYPE CODE TESTS RESULT OUT OF RANGE REFERENCE UNITS LAB L503.6005 0.4-2.0 mmol/L Normal LACTIC ACID 1.2 Performed By: #### L503.6005 #### [facility] [address] [place], [address] Observed: 09/06/2018 Status: F Source: [place] CULTURE, BLOOD (WB) 4:45 PM [facility] REPOSITORY BC No growth in 5 days. Performed By: #### M200.1000 #### [facility] [address] [place], [address] Observed: 09/06/2018 Status: F Source: [place] CULTURE, BLOOD (WB) 4:45 PM [facility] RIGHT ANTECUBITAL BC No growth in 5 days. Performed By: #### M200.1000 #### [facility] [address] [place], [address] CARDIOLOGY VISIT Observed: 08/15/2018 Status: F Source: [place] REPORT 3:56 PM [facility] REPOSITORY [facility] [address] [place] [address] OFFICE VISIT Date of Service: 08/15/18 MR#: [id number] Acct: [id number] Name: HOMERO BOBBY Rep #: [id number] : 1975 Provider: Selwyn Liu MD Age/Sex: 43/M Location: [facility] [place] Status: Signed HPI HPI Chief Complaint: Initial visit Details: HOMERO BOBBY, is a 43 M who presents to the office today for an initial visit. He is a gentleman with a history of bilateral lower extremity lymphedema and chronic diastolic heart failure, hypertension, morbid obesity. He was admitted to [facility] in April of this year with shortness of breath. He was started on intravenous Lasix and had an echocardiogram performed which demonstrated an ejection fraction which was noted to be normal. The right ventricle was also noted to be normal. The mitral valve was structurally normal. It was a technically difficult study. He had shortness of breath and was evaluated by the pulmonary team who started him on Xarelto with a high suspicion for pulmonary embolism though a CTA was not done and a VQ scan was not done either. He has had no dizziness or diaphoresis no near syncope or syncope. He still is short of breath with exertion. And still has chronic lymphedema. He has had no neck arm or jaw discomfort suggest angina. His physical exam today demonstrates clear lung machuca regular rate and rhythm. His electrocardiogram demonstrates normal sinus mechanism with a rate of approximately 80 bpm. Intake Vital Signs08/15/18 Height 6 ft 6 in 08/15/18 Weight: 657 lb Intake Visit Reasons: PCP ref'd for CHF at [facility] Allergies Penicillins Allergy (Verified 08/15/18 15:12) Unknown Medications ALPRAZolam [Xanax] 0.125 mg PO TID PRN PRN 11/02/17 [History Confirmed 08/15/18] sertraline 100 mg tablet 150 mg PO QDAY #180 tab 02/28/18 [Rx Confirmed 08/15/18] omeprazole 20 mg capsule,delayed release 20 mg PO DAILY #90 cap 05/18/18 [Rx Confirmed 08/15/18] rivaroxaban 20 mg tablet 20 mg PO DAILY #60 tab 05/18/18 [Rx Confirmed 08/15/18] atorvastatin 40 mg tablet 40 mg PO DAILY #90 tab 06/15/18 [Rx Confirmed 08/15/18] furosemide 40 mg tablet 40 mg PO DAILY #90 tab 08/15/18 [Rx Confirmed 08/15/18] lisinopril 20 mg tablet 20 mg PO QDAY #30 tab 08/15/18 [Rx] [facility] Medical History Pulmonary embolism (Suspected) Chronic diastolic heart failure (Chronic) Super obesity (Chronic) Essential (primary) hypertension (Chronic) Anxiety and depression (Chronic) Cellulitis (Chronic) Emphysema of lung (Chronic) Lymphedema (Chronic) Obstructive sleep apnea (Chronic) Osteoarthritis (Chronic) Peripheral vascular disease (Chronic) Family History Father Myocardial infarction Hypertension Heart disease Arthritis Cancer Leukemia Social History Smoking Status: Never smoker how long ago did patient quit smokin years ago 2006 ROS Const Const: Positive for fatigue and weakness; negative for difficulty sleeping, frequent falls, excessive sweating or headache(s) Eyes Eyes: Negative for loss of peripheral vision, transient loss of vision, blurry vision, tunnel vision or double vision ENT ENT: Negative for headache(s), dizziness, Nosebleed/epistaxis or balance problems Cardio Chest Pain: No Palpitations: No Edema: Bilateral (BLE edema wearing compression stockings) Muscle aches with walking: None Resp Respiratory: Positive for SOB with activity and other (Diminished bases bilatarally); negative for SOB at rest, SOB orthopnea\SOB lying down, paroxysmal nocturnal dyspnea or Cough GI GI: Negative nausea, heartburn, black,tarry stools or vomiting : Negative for hematuria Musc Musc: Negative for balance problems, muscle aches/ myalgia, muscle weakness or joint pain Skin Skin: Negative non-healing lesions, unusual bruising or rash Neuro Neuro: Positive for weakness; negative for frequent falls, headache(s), blurry vision, double vision, dizziness, lightheadedness, orthostatic symptoms, near syncope, syncope or lack of coordination Isacc Hematologic/Lymphatic: Negative for easy bruising or easy bleeding Endo Endo: Positive for fatigue; negative for excessive sweating or increased thirst/drinking Psych Psych: Negative for anxiety or depression Allergy Allergy/Immunology: Negative for hives, Negative for rash Cardiology Exam Const Appearance: cooperative, healthy appearing, well developed, well groomed and no acute distress Nutritional Appearance: well nourished and average body habitus Orientation: alert, awake and oriented x3 Head Head: normal to inspection, normocephalic and atraumatic Ears: hearing grossly normal bilaterally and external ears normal Nose: external nose normal, nasal mucous membranes and turbinates normal, nares normal, septum normal, no nasal discharge Face and Sinus: face symmetric Mouth: oral mucosae normal, tongue normal, oropharynx normal and moist mucous membranes Teeth and gingiva: dentition normal Throat: posterior oropharynx normal, tonsils normal and uvula midline Eyes General: appearance normal, both eyes and all related structures Eyelids: eyelids normal Conjunctivae: conjunctivae normal Pupils: PERRL, normal by confrontation and accommodation normal EOM: EOM intact bilaterally Neck Neck: normal visual inspection, trachea midline and no JVD JVD: +5 Carotids: normal carotid upstroke and bounding pulses Chest Chest inspection: normal inspection of the chest, symmetric chest movement and normal respiratory effort Auscultation: Bilateral: Clear to Auscultation Cardio Palpation: normal PMI Rate: regular rate Rhythm: regular rhythm Heart sounds: S1 normal, S2 normal and normal, physiologic split S2; negative rub, gallop or murmur GI GI: normal to inspection, soft, no hepatosplenomegaly and bowel sounds present Neuro General: alert, awake, oriented x3, no focal sensory deficit, gait normal and moves all extremities Skin Skin: no rashes or lesions noted Extremities Lower Extremity Edema: +3: Bilateral Musculoskel Musculoskeletal: No joint tenderness Psych Psychological: normal affect Assessment AND Plan 1. Essential (primary) hypertension I10 Plan He does have a history of hypertension. He will continue on his lisinopril for the above. In addition I am suggesting that we change his Lasix to 40 mg once a day. His echocardiogram was reassuring. Orders Orders: 2. Chronic diastolic heart failure I50.32 Plan He does have evidence of chronic diastolic heart failure. He was previously on Lasix 20 mg twice a day and I am suggesting that we change her to Lasix 40 mg once a day. Orders Orders: 3. Super obesity E66.9 Plan He does have a history of super morbid obesity. I would recommend that he continue with his current therapy and continue to follow-up with the bariatric surgeons up at [facility]. Orders Orders: 4. Pulmonary embolism I26.99 Plan He had evidence of presumed pulmonary embolism for which she remains on Xarelto. I am suggesting that we discontinue his aspirin to minimize chances for GI bleeding. In addition he has not had any worsening of his shortness of breath. Thank you for allowing me to participate in the care of your patient. Please don't hesitate to call if any issues arise Orders Orders: Plan Detail Other Medications New: Refilled: Discontinued: Follow Up 6 Months (jhr) Coding Level of Care Code Off vis,new,level 4 Diagnoses Essential (primary) hypertension I10 Chronic diastolic heart failure I50.32 Super obesity E66.9 Pulmonary embolism I26.99 Coding Level of Care Code Off vis,new,level 4 Diagnoses Essential (primary) hypertension I10 Chronic diastolic heart failure I50.32 Super obesity E66.9 Pulmonary embolism I26.99 08/15/18 1556 <Electronically signed by Selwyn Liu MD> Date Selwyn Liu MD Cosigner Signature: Date (if applicable) CC: Nona Johnson MD 12 LEAD EKG PERFORMED Observed: 08/15/2018 Status: F Source: [place] [facility] 3:29 PM [facility] [address] [place] [address] 12 Lead EKG performed by [facility] 08/15/18 1528 MR#: [id number] Acct: [id number] Name: HOMERO BOBBY Rep #: [id number] : 1975 43 From: Selwyn Liu MD Attending Dr: Selwyn Liu MD Status: DEP AMB Ordering Dr: Sewlyn Liu MD Date: 08/15/18 Location: [facility] [place] Sex: M C Admitted: [facility]/12 Lead EKG performed by [facility] ECG Report Interpretation Sinus Rhythm -Incomplete right bundle branch block. ABNORMAL Electronically signed on 08/23/2018 at 11:42 by Selwyn Liu [employer] Version [id number] 08/23/18 1145 Date Selwyn Liu MD CC: Nona Johnson MD Date Dictated: 08/15/18 1528 Date Transcribed: 08/15/18 152 Driver/Sales Workers: [place] Signed INTERNAL MEDICINE Observed: 08/08/2018 Status: F Source: [place] OFFICE VISIT 5:06 PM [facility] [address] [place] [address] [place] [address] OFFICE VISIT Date of Service: 05/18/18 MR#: [id number] Acct: [id number] Name: HOMERO BOBBY Rep #: [id number] : 1975 Provider: Nona Johnson MD Age/Sex: 43/M Location: [facility] Status: Signed Intake Vital Signs05/18/18 Height 6 ft 7 in 05/18/18 Blood Pressure 140/75 Intake Visit Reasons: [facility] F/U Chief Complaint: FU - [facility] Is patient in pain?: No Allergies Penicillins Allergy (Verified 05/18/18 10:49) Unknown Medications ALPRAZolam [Xanax] 0.125 mg PO TID PRN PRN 11/02/17 [History Confirmed 05/18/18] sertraline 100 mg tablet 150 mg PO QDAY #180 tab 02/28/18 [Rx Confirmed 05/18/18] furosemide 20 mg tablet 20 mg PO BID #90 tab 05/18/18 [Rx Confirmed 05/18/18] lisinopril 20 mg tablet 20 mg PO QDAY #30 tab 05/18/18 [Rx Confirmed 05/18/18] omeprazole 20 mg capsule,delayed release 20 mg PO DAILY #90 cap 05/18/18 [Rx Confirmed 05/18/18] rivaroxaban 15 mg tablet 15 mg PO BID #28 tab 05/18/18 [Rx Confirmed 05/18/18] rivaroxaban 20 mg tablet 20 mg PO DAILY #60 tab 05/18/18 [Rx Confirmed 05/18/18] PFSH Medical History Osteoarthritis (Chronic) emphysema (Chronic) Arthritis (Chronic) Family History Father Myocardial infarction Hypertension Heart disease Arthritis Cancer Leukemia Social History Smoking Status: Never smoker how long ago did patient quit smokin years ago 2007 HPI HPI Chief Complaint: - [facility] Details: HOMERO BOBBY, is a 43yo M who presents to the office today for follow-up status post recent hospital admission. He was managed as a case of suspected pulmonary embolism, acute on chronic heart failure and systemic infection secondary to lower extremity wounds/ulcers. Discharged on Xarelto and is currently on IV vancomycin. He is yet to follow-up with cardiology. He was referred to the [facility] during his last visit and also recommended to follow-up at his discharge however he is yet to schedule this. He also has not had an echo done. He feels well otherwise and denies shortness of breath or chest tightness. ROS Const Constitutional: No chills, fatigue, fever(s), frequent falls, malaise, weakness, sleep problems or change in appetite Eyes Eyes: No blurry vision, change in vision, double vision, discharge or visual disturbances ENT ENT: No abnormal hearing, ear pain, ear pressure, tinnitus or dizziness/vertigo Resp Respiratory: No cough, shortness of breath or wheezing Cardio Cardiology: No chest pain at rest, chest pain with exertion, shortness of breath, dyspnea on exertion, generalized swelling, irregular heart rhythm, lightheadedness, orthopnea, fast heart rate or palpitations Gastro GI: No abdominal pain, change in bowel habits, constipation, diarrhea, nausea/dyspepsia or vomiting Genitourinary Male: No difficulty urinating, burning urination, painful urination, urinary incontinence, urinary frequency, urinary urgency, urinary hesitancy, urinary retention, blood in urine, Frequent nighttime urination/ nocturia, sexual problems, testicle lump or testicle pain Musc Musculoskeletal: No joint pain, back pain, joint swelling, limited range of motion, numbness or tingling Skin Skin: No change in skin color, itching, rash or wounds Breast Breast: No breast lump or breast pain Neuro Neurology: No frequent falls, weakness, abnormal hearing, numbness, tingling, unsteady gait/balance, dizziness, loss of vision, memory loss or visual disturbances Psych Psychiatric: No memory loss, No anxiety, No change in appetite, No depression, No Thoughts of harming yourself/Others Endo Endocrine: No fatigue, heat intolerance, increased thirst/drinking, increased hunger or increased urination Aller/Imm Allergy/Immunologic: No wheezing, itchy eyes or seasonal allergy symptoms Isacc/Lymp Hematologic/Lymphatic: No easy bleeding, easy bruising or enlarged lymph nodes Exam Const General: no acute distress Nutritional Appearance: obese Orientation: alert, awake, oriented x3 HENMT Head: atraumatic, normocephalic Ears: hearing grossly normal bilaterally Resp Auscultation: Bilateral: Clear to Auscultation Cardio Rate: regular rate Rhythm: regular rhythm Heart Sounds: S1 normal, S2 normal GI Inspection: obesity Other: Non tender. Skin Other: approx 0.8 x 0.6 x 0.2cm Ulcer noted in the left posterior leg. No discharge appreciated. Neuro General: alert, awake, oriented x3, moves all extremities, CN's II-XI intact bilaterally Psych Appearance: grossly normal Affect: sad Speech and Movement: speech and movement normal Attitude: cooperative Thought Process: normal Assessment AND Plan 1. Pulmonary embolism I26.99 Carly Johnson MD Status post recent hospital admission. Currently on Xarelto at 15 mg twice daily. Continue for 2 more weeks and then start 20 mg daily. He is asymptomatic at this time. Follow-up in 1 month. 2. Hypertension I10 Carly - Nona Johnson MD Not optimally controlled. Also noted to be elevated during his hospital stay. Increase lisinopril to 20 mg daily. Lifestyle and dietary modifications encouraged. BMP in 2 weeks. Follow-up in 1 month. Orders Orders: 3. CHF (congestive heart failure) I50.9 Carly Johnson MD Chronic. Recent exacerbation during hospital stay. Advised to follow-up with cardiology as previously recommended. Echo also ordered at that visit, he was advised to get this done. Will get records from [facility]. Lasix 20 mg twice daily. Continue other medications. 4. Super obesity E66.9 Carly - Nona Johnson MD Plan is for bariatric surgery however, patient states that he has not followed up in some time. He was encouraged to. Continue lifestyle and dietary modifications. 5. Ulcer of left lower extremity, limited to breakdown of skin L97.921 Carly - Nona Johnson MD Chronic. Due to significant /severe lymphedema. He states that he was started on IV vancomycin due to ? Systemic infection. Advised to continue follow-up with infectious disease. Monitor BMP closely. This note was generated with [employer] dictation software. It may contain incorrect words, spelling, and punctuation that were not noted in checking the note before signing. Plan Detail Other Medications New: Changed: Refilled: Coding Level of Care Code Off vis,est,level 4 Diagnoses Pulmonary embolism I26.99 Hypertension I10 CHF (congestive heart failure) I50.9 Super obesity E66.9 Ulcer of left lower extremity, limited to breakdown of skin L97.921 Non-pressure ulcer stage: limited to breakdown of skin 05/22/18 1542 <Electronically signed by Nona Johnson MD> Date Nona Johnson MD 08/08/18 1706<Electronically signed by Pavel Mercer DO> Cosigner Signature: Date (if applicable) Pavel Mercer DO CC: CBC W/DIFF, AUTOMATED Collected: 07/26/2018 Status: F Source: [place] 1:51 PM [facility] TYPE CODE TESTS RESULT OUT OF RANGE REFERENCE UNITS LAB L100.1000 4.4-11.0 K/mm3 Normal WBC 7.0 LAB L100.1200 4.6-6.2 M/mm3 Normal RBC 5.08 LAB L100.1300 13.0-16.5 g/dl Low HGB 11.8 LAB L100.1400 40-54 % Low HCT 38.2 LAB L100.1500 80-94 fL Low MCV 75.2 LAB L100.1600 27.0-32.0 pg Low MCH 23.2 LAB L100.1700 32-36 g/gl Low MCHC 30.9 LAB L100.1810 11.6-14.6 % High RDW CV 18.7 LAB L100.1820 35.1-43.9 fl High RDW SD 50.7 LAB L100.1900 150-450 K/mm3 Normal PLT 283 LAB L100.2000 6.2-12.0 fl Normal MPV 9.7 LAB L100.2100 47-70 % High NEUT% 76.6 LAB L100.2200 19-41 % Low LY% 14.5 LAB L100.2300 0-10 % Normal MONO% 5.7 LAB L100.2400 0-5 % Normal EO% 2.6 LAB L100.2500 0-1 % Normal BASO% 0.3 LAB L100.2550 0.0-0.9 % Normal IM GRAN % 0.300 Result Comment: IG% - Immature Granulocytes (promyelocytes, myelocytes and metamyelocytes) > 1% indicates that a LEFT SHIFT is Present. LAB L100.2620 2.0-7.7 X10 3/uL Normal Absolute Neut 5.4 LAB L100.2720 0.83-4.51 X10 3/ul Normal Absolute Lymph 1.02 Performed By: #### L100.0100, L101.9900 #### [facility] [address] [place], [place], [address] ERYTHROCYTE SED RATE Collected: 07/26/2018 Status: F Source: [place] 1:51 PM [facility] TYPE CODE TESTS RESULT OUT OF RANGE REFERENCE UNITS LAB L102.0000 0-15 mm/hr High SED RATE 70 Performed By: #### L100.0100, L101.9900 #### [facility] [address] [place], [address] COMPREHENSIVE METABOLIC Collected: 07/26/2018 Status: F Source: [facility] 1:51 PM [facility] TYPE CODE TESTS RESULT OUT OF RANGE REFERENCE UNITS LAB L501.0100 74-106 mg/dL Normal GLU 89 Result Comment: Please note revised GLUCOSE reference range effective 2017. LAB L501.1000 7-18 mg/dL High BUN 21 LAB L501.1100 0.70-1.30 mg/dL Normal CREAT,SERUM 0.92 Result Comment: The validity of the calculated GFR AND GFRAA in patients over 70 years has not been determined. Clinical correlation is essential. LAB L501.1110 >60 mL/min Normal EST GFR 95 Result Comment: Non- GFR Calc LAB L501.1115 >60 mL/min Normal EST GFR - AA 115 Result Comment: GFR Calc LAB L501.1255 ml/min Normal Estimated CRCL 135.80 LAB L501.1300 10-20 RATIO High BUN/CRE 22.9 LAB L501.1500 6.4-8. g/dL High 2 T PROT 9.1 LAB L501.1800 3.2-5. g/dL 0 ALB Normal 3.4 LAB L501.1950 2.2-4. g/dL High 2 GLOB 5.7 LAB L501.2000 0.9-2. RATIO Low 4 A/G 0.6 LAB L501.2200 8.5-10 mg/dL .1 CA Normal 8.6 LAB L501.4100 15-37 U/L AST Normal 25 LAB L501.4305 45-117 U/L High ALK P 127 LAB L501.4405 16-61 U/L ALT Normal 40 LAB L501.4600 0.20-1 mg/dL .00 T BILI Normal 0.50 LAB L501.5300 136-14 mmol/L 5 NA Normal 140 LAB L501.5600 3.5-5. mmol/L 1 K Normal 4.5 LAB L501.5900 98-107 mmol/L CL Normal 103 LAB L501.6100 21.0-3 mmol/L 2.0 CO2 Normal 30.0 LAB L501.6200 5-15 GAP Normal 7 Performed By: #### L500.4050, L506.0500 #### [facility] [address] [place], [address] PREALBUMIN Collected: 07/26/2018 Status: F Source: [place] 1:51 PM [facility] TYPE CODE TESTS RESULT OUT OF RANGE REFERENCE UNITS LAB L506.0500 20.0-40.0 mg/dL Normal PREALBUMIN 25.7 Performed By: #### L500.4050, L506.0500 #### [facility] [address] HEMOGLOBIN A1C Collected: 07/26/2018 Status: F Source: [place] 1:51 PM [facility] TYPE CODE TESTS RESULT OUT OF RANGE REFERENCE UNITS LAB L501.9985 4.2-6.3 % Normal HGB A1C 5.7 Performed By: #### L501.9985 #### [facility] [address] [facility] [address] WOUND CTR HISTORY Observed: 07/12/2018 Status: F Source: [facility] 5:22 PM [facility] [address] [place] [address] Wound Ctr History AND Physical 07/12/18 1705 MR#: [id number] Acct: [id number] Name: HOMERO BOBBY Rep #: [id number] : 1975 43 From: Cale Magana MAIL 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RodolfoC PCP: Nona Johnson MD Status: REG RCR Y Location: WC 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 Status: Acute Current Visit: Yes Code(s): L97.922 - Non- pressure chronic ulcer of unspecified part of left lower leg with fat layer exposed (2) Chronic acquired lymphedema Status: Acute Current Visit: Yes Code(s): I89.0 - Lymphedema, not elsewhere classified (3) Chronic diastolic heart failure Status: Chronic Current Visit: No Code(s): I50.32 - Chronic diastolic (congestive) heart failure (4) Super obesity Status: Chronic Current Visit: Yes Code(s): E66.9 - Obesity, unspecified (5) Pulmonary embolism Status: Suspected Current Visit: No Code(s): I26.99 - Other pulmonary embolism without acute cor pulmonale (6) Essential (primary) hypertension Status: Chronic Current Visit: No Code(s): I10 - Essential (primary) hypertension History of Present Illness Date of Service: 07/12/18 Chief Complaint: Chronic severe bilateral lower extremity swelling with two nonhealing ulcers left lower extremity. History of Wound: Mr. Bobby is a 42yo with Morbid Obesity and Chronic severe bilateral lymph edema who who presents to the wound center again for wounds of the left lower extremity. He states that his wounds have been slowly opening on his left lower extremity over the last month or so. He has been using Aquacel silver that he had left over. He states that he was previously seen at the lymphedema clinic and they told him that they could do nothing for him until after he gets his bariatric surgery. Records are not available for review at this time. He is using Gracia wraps and compression wraps to his lower extremities from the knee down for his lymphedema, but due to his anatomy is unable to wrap his thigh lymphedema which is where the ulcers are on the left lower extremity. He does note that he had attempted to have vascular studies in the past, but they are unable to be performed due to his body habitus. He denies any systemic or localized signs of infection at this time. He does state that there is some serous drainage on his dressing changes. The patient otherwise denies any fever, chills, nausea, vomiting, shortness of breath, chest pain or pressure, palpitations, orthopnea, lower extremity edema, syncope or presyncopal episodes. Past Medical History Past Medical History: Chronic Problems (Last Updated 07/10/18 @ 14:27 by Ingrid Hanley) Chronic diastolic heart failure (Chronic) Super obesity (Chronic) Essential (primary) hypertension (Chronic) Allergies/Adverse Reactions: Allergies Penicillins Allergy (Verified 07/05/18 09:03) Unknown Home Medications: Ambulatory Orders Medication Instructions Recorded ALPRAZolam [Xanax] 0.125 mg PO TID PRN PRN 11/02/17 sertraline 100 mg tablet 150 mg PO QDAY #180 tab 02/28/18 furosemide 20 mg tablet 20 mg PO BID #90 tab 05/18/18 Smoking Status: Never smoker Review of Systems Constitutional: Denies: Chills, Fever, Weight Change Eyes: Denies: Pain, Vision Change HEENT: Denies: Difficulty Hearing, Difficulty Swallowing, Sinus Congestion Cardiovascular: Reports: Edema - See HPI chronic lymphedema severe. Denies: Chest Pain, Palpitations Respiratory: Denies: Cough, Shortness of Breath Gastrointestinal: Denies: Diarrhea, Nausea, Vomiting Genitourinary: Denies: Dysuria, Hematuria Skin: Reports: Wounds - See HPI Endocrine: Denies: Heat/ Cold Intolerance, Polydipsia, Polyuria Hematologic/ Lymphatic: Denies: Easy Bruising, Easy Bleeding - Physical Exam Vital Signs Temp Pulse Resp BP 99.1 F 80 18 160/93 H 07/12/18 13:13 07/12/18 13:13 07/12/18 13:13 07/12/18 13:13 General: Alert, Oriented x3, Cooperative, No apparent distress HEENT: PERRLA, EOMI Lungs: Clear to auscultation, Normal air movement Cardiovascular: Regular rate, Regular Rhythm Abdomen: Bowel Sounds Present, Soft, Non Tender, Non-Distended, Obese Extremities: Edema - Severe lymphedema present bilateral lower extremities, chronic vascular changes present bilateral Skin: Ulcer/ Wound - Thigh wounds with adherent slough present superimposed upon his severe chronic lymphedema, no signs of infection at this time, mild serous drainage, no purulent drainage or foul smell Wound Measurements and Assessment WC - Nurse 1 - General Ulcer Measurement Start: 07/12/18 13:13 Freq: Status: Active Protocol: Activity Type Activity Date Activity User E-Sign Co-Sign Detail Recorded Client Recorded Date Recorded By Document 07/12/18 13:13 [id number] 07/12/18 13:30 Wound Center Nurse 1 [Ulcer Assessment] #3 LEFT POST. THIGH -Combined with other wound No -Current Size (cm) - Length 3.5 -Current Size (cm) - Width 3.5 WC - Nurse 2 - General Ulcer CM Notes Start: 07/12/18 13:13 Freq: Status: Active Protocol: Activity Type Activity Date Activity User E-Sign Co-Sign Detail Recorded Client Recorded Date Recorded By Document 07/12/18 14:12 [id number] 07/12/18 14:38 TM Wound Center Nurse 2 [Procedure/Treatment] #3 LEFT POST. THIGH -Time 14:33 -Correct Patient Yes Musculoskeletal: No Muscle Wasting Neurological: Neuro grossly intact Psych/Mental Status: Normal Affect, Appropriate, Alert and oriented to time, place, person, mood and affect Debridement Note Post-Debridement Measurements/Treatment WC - Nurse 2 - General Ulcer CM Notes Start: 07/12/18 13:13 Freq: Status: Active Protocol: Activity Type Activity Date Activity User E-Sign Co-Sign Detail Recorded Client Recorded Date Recorded By Document 07/12/18 14:12 [id number] 07/12/18 14:38 TM Wound debrided: Left thigh lymphedema ulcerations Laterality: Left Type of Debridement: Excisional debridement Anesthesia Used: 5% Lidocaine Gel Depth: in the subcutaneous layer Percentage of wound debrided: 100 Instrument Used: 5mm curette Tissue Removed: Slough and devitalized tissue Severity: Fat Layer Exposed Amount of bleeding with debridement: Mild Bleeding Controlled with: Pressure Patient tolerated procedure well Assessment/Plan Active Problems (Last Updated 07/10/18 @ 14:27 by Ingrid Hanley) Nonhealing ulcer of left lower extremity with fat layer exposed (Acute) Chronic acquired lymphedema (Acute) Super obesity (Chronic) Assessment: Chronic severe bilateral lymphedema. Supermorbid Obesity. Left lower extremity ulcer Plan: The patient was seen and examined at the wound center today and was updated on the plan of care. A subcutaneous debridement was performed today. That debridement was very difficult to perform in the wound center due to the patient's body habitus and the limitations of our facility. Wounds were unable to be appropriately visualized and debrided due to this. The patient tolerated the procedure well. The patients wound care will consist of: Aquasol silver dressings daily and as needed. Wound cultures were collected. For compression patient is to continue with compression stockings and Gracia wraps. Baseline bloodwork ordered. Patient educated on the importance of diet on wound healing and instructed to increase protein and vitamin C intake. Patient verbalized understanding. Patient will follow up at wound healing center in one week or sooner if needed. This note was generated with Convertigoation software. It may contain incorrect words, spelling, and punctuation that were not noted in checking the note before signing. Code Visit Office Visits / Consults: 28511 OV L4 Est 111xxx-113xx: [id number] Margarita subq tissue 20 sq cm/< 07/12/18 1722 <Electronically signed by Cale BENNETT> Date Cale BENNETT CC: Signed Observed: 07/12/2018 Status: F Source: [place] CULTURE, WOUND 2:30 PM [facility] Comments: THIGH ULCER Gram Stain Gram Stain 1+ White Blood Cells 1+ Epithelial cells 4+ Gram negative rods Wound Culture ORGANISM 1: Proteus mirabilis Amount Growth 1+ ORGANISM 2: Streptococcus agalactiae (B) Amount Growth 3+ Proteus mirabilis: REACTION Amoxacillin/Clavulanic Acid $ <=2 S Ampicillin $ <=2 S Ampicillin/Sulbactam $ <=2 S Cefazolin $ <=4 S Cefepime $ <=1 S Ceftriaxone $ <=1 S Ciprofloxacin $ <=0.25 S Ertapenim $$$ <=0.5 S Gentamicin $ <=1 S Levofloxacin $ <=0.12 S Piperacillin/Tazobactam $$ <=4 S Tobramycin $ <=1 S Trimethoprim/Sulfametho $ <=20 S (NF) indicates non-formulary drug at [facility]. Approval by Infectious Disease Specialist required before non-formulary drugs may be ordered and/or dispensed. Streptococcus agalactiae (B): REACTION Ampicillin $ <=0.25 S Benzylpenicillin NF 0.12 S Ceftriaxone $ <=0.12 S Clindamycin $$ <=0.25 S Inducable Clindamycin Resistan - Linezolid $$$$ <=2 S Vancomycin $ 0.5 S (NF) indicates non-formulary drug at [facility]. Approval by Infectious Disease Specialist required before non-formulary drugs may be ordered and/or dispensed. * CLSI guidelines does not recommend testing of cephalosporins. This interpretation is deduced from Beta-lactam/penicillin results. Performed By: #### M100.1400 #### [facility] [address] [place], [address] INTERNAL MEDICINE Observed: 07/05/2018 Status: F Source: [place] OFFICE VISIT 11:20 AM [facility] [address] [place] [address] [place] [address] OFFICE VISIT Date of Service: 07/05/18 MR#: [id number] Acct: [id number] Name: HOMERO BOBBY Rep #: [id number] : 1975 Provider: Cale Magana NP Age/Sex: 43/M Location: [facility] Status: Signed Intake Vital Signs07/05/18 Blood Pressure 136/89 H Intake Visit Reasons: check wound Chief Complaint: Check Wound Lt leg Is patient in pain?: Yes (Leg) Pain scale (1-10): 5 Allergies Penicillins Allergy (Verified 07/05/18 09:03) Unknown Medications ALPRAZolam [Xanax] 0.125 mg PO TID PRN PRN 11/02/17 [History Confirmed 07/05/18] sertraline 100 mg tablet 150 mg PO QDAY #180 tab 02/28/18 [Rx Confirmed 07/05/18] furosemide 20 mg tablet 20 mg PO BID #90 tab 05/18/18 [Rx Confirmed 07/05/18] lisinopril 20 mg tablet 20 mg PO QDAY #30 tab 05/18/18 [Rx Confirmed 07/05/18] omeprazole 20 mg capsule,delayed release 20 mg PO DAILY #90 cap 05/18/18 [Rx Confirmed 07/05/18] rivaroxaban 20 mg tablet 20 mg PO DAILY #60 tab 05/18/18 [Rx Confirmed 07/05/18] aspirin 81 mg chewable tablet 81 mg PO DAILY 06/15/18 [History Confirmed 07/05/18] atorvastatin 40 mg tablet 40 mg PO DAILY #90 tab 06/15/18 [Rx Confirmed 07/05/18] isosorbide dinitrate 5 mg tablet 5 mg PO BID #60 tab 06/15/18 [Rx Confirmed 07/05/18] PFSH Medical History Osteoarthritis (Chronic) emphysema (Chronic) Arthritis (Chronic) Family History Father Myocardial infarction Hypertension Heart disease Arthritis Cancer Leukemia Social History Smoking Status: Never smoker how long ago did patient quit smokin years ago 2006 HPI HPI Chief Complaint: Check Wound Lt leg Details: HOMERO BOBBY, is a 43 M who presents to the office today for examination of wounds on left thigh. He has a PMH as listed above. Patient has a 3 cm diameter approximate wound on his left posterior thigh with adherant slough present. He has been applying Aquacell silver dressings to this area daily for over 2 weeks. He denies the area being warm, tender, or having any purulent drainage. This gentleman is super obese and has difficulty getting onto the bed for an accurate assessment of this wound at this time. Denies being any more short of breath than normal denies any fever chills or chest pain. Patient will seek treatment at the wound center for care for this problem. He does have chronic lymphedema, which he has been seen at lymphedema clinic for that complicates his overall plan of care. The patient otherwise denies any fever, chills, nausea, vomiting, shortness of breath, chest pain or pressure, palpitations, orthopnea, lower extremity edema, syncope or presyncopal episodes. ROS Const Constitutional: No chills, fatigue, fever(s), frequent falls, malaise, weakness, sleep problems or change in appetite Eyes Eyes: No blurry vision, change in vision, double vision, discharge or visual disturbances ENT ENT: No abnormal hearing, ear pain, ear pressure, tinnitus or dizziness/vertigo Resp Respiratory: No cough, shortness of breath or wheezing Cardio Cardiology: No chest pain at rest, chest pain with exertion, shortness of breath, dyspnea on exertion, generalized swelling, irregular heart rhythm, lightheadedness, orthopnea, fast heart rate or palpitations Gastro GI: No abdominal pain, change in bowel habits, constipation, diarrhea, nausea/dyspepsia or vomiting Genitourinary Male: No difficulty urinating, burning urination, painful urination, urinary incontinence, urinary frequency, urinary urgency, urinary hesitancy, urinary retention, blood in urine, Frequent nighttime urination/ nocturia, sexual problems, testicle lump or testicle pain Musc Musculoskeletal: No joint pain, back pain, joint swelling, limited range of motion, muscle weakness, numbness or tingling Skin Skin: Positive for wounds (left posterior thigh) and skin ulcer (Left leg); no change in skin color, itching or rash Breast Breast: No breast lump or breast pain Neuro Neurology: No frequent falls, weakness, abnormal hearing, numbness, tingling, unsteady gait/balance, dizziness, loss of vision, memory loss or visual disturbances Psych Psychiatric: No memory loss, No anxiety, No change in appetite, No depression, No Thoughts of harming yourself/Others Endo Endocrine: No fatigue, heat intolerance, increased thirst/drinking, increased hunger or increased urination Aller/Imm Allergy/Immunologic: No wheezing, itchy eyes or seasonal allergy symptoms Isacc/Lymp Hematologic/Lymphatic: No easy bleeding, easy bruising or enlarged lymph nodes Exam Const General: cooperative, comfortable, no acute distress Nutritional Appearance: average body habitus, well nourished Orientation: alert, oriented x3 Limitations: mental status not altered [facility] Head: normal to inspection Ears: hearing grossly normal bilaterally Nose: external nose normal Eyes General: appearance normal, both eyes and all related structures Resp Effort AND Inspection: normal respiratory effort, able to speak in complete sentences, normal respiratory pattern, symmetric chest movement, no audible wheezes, no cough Auscultation: Bilateral: Clear to Auscultation Cardio Palpation: normal PMI Rate: regular rate Heart Sounds: S1 normal, S2 normal, normal S1 and S2, no click, no gallops, no murmurs, no rubs GI Inspection: normal to inspection Auscultation: normal bowel sounds, no hyperactive bowel sounds, no hypoactive bowel sounds Palpation: soft, no hepatosplenomegaly Musc Musculoskeletal: No muscle weakness Skin Other: Chronic bilateral lymphedema with nonhealing wound to the left posterior thigh with adherent slough, wound edges are not erythematous and there are no signs of localized or systemic infection at this time. Neuro General: alert, awake, oriented x3, CN's II-XI intact bilaterally Speech: speech normal Gait: normal gait Motor: muscle tone normal throughout Extrem General: normal to inspection, normal gait, edema, pedal edema Other: Chronic bilateral lymph Psych Appearance: grossly normal Mental Status: mental status grossly normal Affect: normal affect Attitude: cooperative Thought Process: normal Assessment AND Plan Problems 1. Ulcer of left lower extremity, limited to breakdown of skin L97.921 Plan Patient has approximately 3 cm in diameter nonhealing ulcer to left posterior thigh. Site dressed with Faby and will refer to wound center for proper debridement. This patient is morbidly obese and has chronic bilateral lower extremity lymphedema which overall complicates his plan of care. Discussed signs and symptoms of infection that require urgent medical attention. Patient verbalized understanding. He will follow- up next week at wound center for proper assessment and debridement of this wound on his left posterior thigh. Plan Detail Follow Up As scheduled or sooner if needed Coding Level of Care Code Off vis,est,level 3 Diagnoses Ulcer of left lower extremity, limited to breakdown of skin L97.921 Non-pressure ulcer stage: limited to breakdown of skin 07/05/18 1120 <Electronically signed by Cale BENNETT> Date Cale BENNETT Cosigner Signature: Date (if applicable) CC: INTERNAL MEDICINE Observed: 06/15/2018 Status: F Source: [facility] OFFICE VISIT 4:55 PM [facility] [address] [place] [address] [address] [place] [address] OFFICE VISIT Date of Service: 06/15/18 MR#: [id number] Acct: [id number] Name: HOMERO BOBBY Rep #: [id number] : 1975 Provider: Cale Magana NP Age/Sex: 43/M Location: [facility] Status: Signed Intake Vital Signs06/15/18 Height 6 ft 7 in Intake Visit Reasons: 1 MO F/U Chief Complaint: FU of chronic medical conditions- Is patient in pain?: No Allergies Penicillins Allergy (Verified 05/18/18 10:49) Unknown Medications ALPRAZolam [Xanax] 0.125 mg PO TID PRN PRN 11/02/17 [History Confirmed 05/18/18] sertraline 100 mg tablet 150 mg PO QDAY #180 tab 02/28/18 [Rx Confirmed 05/18/18] furosemide 20 mg tablet 20 mg PO BID #90 tab 05/18/18 [Rx Confirmed 05/18/18] lisinopril 20 mg tablet 20 mg PO QDAY #30 tab 05/18/18 [Rx Confirmed 05/18/18] omeprazole 20 mg capsule,delayed release 20 mg PO DAILY #90 cap 05/18/18 [Rx Confirmed 05/18/18] rivaroxaban 15 mg tablet 15 mg PO BID #28 tab 05/18/18 [Rx Confirmed 05/18/18] rivaroxaban 20 mg tablet 20 mg PO DAILY #60 tab 05/18/18 [Rx Confirmed 05/18/18] aspirin 81 mg chewable tablet 81 mg PO DAILY 06/15/18 [History Confirmed 06/15/18] atorvastatin 40 mg tablet 40 mg PO DAILY #90 tab 06/15/18 [Rx Confirmed 06/15/18] isosorbide dinitrate 5 mg tablet 5 mg PO BID #60 tab 06/15/18 [Rx Confirmed 06/15/18] PFSH Medical History Osteoarthritis (Chronic) emphysema (Chronic) Arthritis (Chronic) Family History Father Myocardial infarction Hypertension Heart disease Arthritis Cancer Leukemia Social History Smoking Status: Never smoker how long ago did patient quit smokin years ago 2007 HPI HPI Chief Complaint: FU of chronic medical conditions- Details: HOMERO BOBBY, is a 43 M who presents to the office today for one-month follow-up for hypertension and his other chronic conditions. Patient has a past medical history as listed above. At last OV 1 month ago patient was seen in office for follow- up from a hospital stay at [facility] for acute on chronic CHF and PE. Patient's lisinopril was increased, echo was ordered, lab work was ordered and patient was referred to cardiology. Today patient presents with his and has no complaints or concerns. He did not see cardiology, obtain echo or lab work. He states he is taking Xarelto 20 mg twice a day as he misunderstood prior directions but denies blood in stool, blood in urine or epistaxis. He recently completed his IV antibiotics and had his PICC removed for his cellulitis. Per he still receiving home health that will complete next week and at home health visits patient's average blood pressure is 120/70. He denies signs or symptoms of cellulitis or current open wounds. The patient is concerned that he has a dull headache ever since starting on the isosorbide and wonders if this can be decreased. He does note that he has a follow-up appointment scheduled in the near future with his bariatric surgeon to discuss surgery. The patient otherwise denies any fever, chills, nausea, vomiting, shortness of breath, chest pain or pressure, palpitations, orthopnea, syncope or presyncopal episodes. ROS Const Constitutional: No weight change, body ache, chills, fatigue, sleep problems, fever(s), change in appetite, snoring, weakness, frequent falls, headache(s) or excessive sweating Eyes Eyes: No change in vision, eye pain, light sensitivity or blurry vision ENT ENT: No headache(s), abnormal hearing, ear pain, tinnitus, nasal congestion, sore throat or neck pain Resp Respiratory: No snoring, cough, shortness of breath or wheezing Cardio Cardiology: No excessive sweating, chest pain at rest, chest pain with exertion, shortness of breath, dyspnea on exertion, palpitations, orthopnea or lightheadedness Gastro GI: No abdominal pain, change in bowel habits, constipation, diarrhea, vomiting, nausea/dyspepsia or cramping Genitourinary Male: No painful urination, urinary incontinence, urinary frequency, urinary urgency, blood in urine, testicle pain or other Musc Musculoskeletal: Positive for joint pain, numbness (hands from arthritis) and tingling; no neck pain, abnormal walking, back pain, limited range of motion or muscle weakness Skin Skin: No redness, dry skin, itching, lesions, wounds or rash Neuro Neurology: Positive for numbness (hands from arthritis) and tingling; no weakness, frequent falls, headache(s), abnormal hearing, abnormal walking, abnormal speech, dizziness or memory loss Psych Psychiatric: No change in appetite, No memory loss, No anxiety, No depression, No Thoughts of harming yourself/Others Endo Endocrine: No fatigue, excessive sweating, cold intolerance, increased thirst/drinking, heat intolerance, flushing or increased hunger Aller/Imm Allergy/Immunologic: No wheezing, itchy eyes, hives or seasonal allergy symptoms Isacc/Lymp Hematologic/Lymphatic: No easy bleeding, easy bruising or enlarged lymph nodes Exam Const General: cooperative, comfortable, no acute distress Nutritional Appearance: well nourished, obese morbidly obese Orientation: alert, oriented x3 Limitations: mental status not altered Eyes General: appearance normal, both eyes and all related structures Resp Effort AND Inspection: normal respiratory effort, able to speak in complete sentences, normal respiratory pattern, symmetric chest movement, no audible wheezes, no cough Auscultation: Bilateral: Clear to Auscultation Cardio Palpation: normal PMI Rate: regular rate Heart Sounds: S1 normal, S2 normal, normal S1 and S2, no click, no gallops, no murmurs, no rubs Musc Musculoskeletal: No joint tenderness, decreased ROM or muscle weakness Skin General: no rashes or lesions noted, elasticity normal, turgor normal Lesions: no lesions Rashes: no rashes Neuro General: alert, awake, oriented x3, CN's II-XI intact bilaterally Speech: speech normal Gait: normal gait Motor: muscle tone normal throughout Extrem General: normal to inspection, normal gait, edema, other (Bilateral chronic lymphedema lower extremity) Other: compression stockings in place Psych Appearance: grossly normal Mental Status: mental status grossly normal Affect: normal affect Attitude: cooperative Thought Process: normal Assessment AND Plan 1. HTN (hypertension) I10 Plan Hypertension: Controlled on current medications, will not make any adjustments at this time. Will continue with current medication regimen, risk factor reduction, and lifestyle modifications. Discussed dietary changes that should be considered which include reducing the amount of sodium intake. Pending BMP. 2. CHF (congestive heart failure) I50.9 Plan At hospital stay patient started on isosorbide for chest pain. He complains of headache, isosorbide lowered to 5 mg twice daily. Patient denies any symptoms of CHF exacerbation at this time. Patient to make cardiology appointment as previously suggested, offered office to make appointment refused. Patient to continue with current dose of diuretics. 3. Super obesity E66.9 Plan Patient to follow-up with bariatric surgeon and continue with attempts for weight loss. 4. Pulmonary embolism I26.99 Plan Patient taking 20 mg of Xarelto twice a day inappropriately. Patient educated on correct dose 20 mg daily. Patient denies bleeding. Patient educated on side effects of medication. Patient also educated on signs and symptoms that would warrant emergency medical care. 5. Cellulitis L03.90 Plan Resolved. Patient recently finished IV antibiotics and had PICC removed. Patient has follow-up appointment with infectious disease in July. Patient denies any symptoms of cellulitis or systemic signs of infection at this time. Plan Detail Other Medications New: Follow Up 2 Months Coding Level of Care Code Off vis,est,level 3 Diagnoses HTN (hypertension) I10 CHF (congestive heart failure) I50.9 Super obesity E66.9 Pulmonary embolism I26.99 Cellulitis L03.90 06/15/18 1442 <Electronically signed by Cale BENNETT> Date Cale BENNETT Cosigner Signature: Date (if applicable) CC: CMP Collected: 06/04/2018 Status: F Source: [facility] 8:00 AM [facility] REPOSITORY TYPE CODE TESTS RESULT OUT OF RANGE REFERENCE UNITS LAB L500.91232 136-145 MMOL/L Normal NA 139 LAB L500.15406 3.5-5.1 MMOL/L Normal K 4.2 LAB L500.90165 98-107 MMOL/L Normal CL 101 LAB L500.04216 21-32 MMOL/L Normal CO2 30 LAB L500.04005 5-16 MMOL/L Normal AGAP 8 LAB L500.69756 70-100 MG/DL Normal GLU 96 Result Comment: 70-100- Normal Fasting; 100-125 Impaired Fasting; greater than 126 on more than one result- Diabetes. ADA guidelines. Results may be falsely elevated after the administration of Sulfapyridine. Results may be falsely depressed after the administration of Sulfasalazine. LAB L500.20729 7-26 MG/DL Normal BUN 14 LAB L500.95381 0.670-1.170 MG/DL Normal CREAT 0.793 Result Comment: Patients receiving either N-Acetylcysteine (NAC) or Metamizole prior to venipuncture, may have falsely depressed results. LAB L500.79826 15-24 Normal BUN/CREA 18 LAB L500.26513 6.0-8.5 GM/DL Normal TP 8.1 LAB L500.02392 3.2-5.0 GM/DL Normal ALBUMIN 3.4 LAB L500.38607 2.2-4.2 GM/DL High GLOBULIN 4.7 LAB L500.92114 0.8-2.0 Low A/G RATIO 0.7 LAB L500.03470 8.5-10.1 MG/DL Normal CALCIUM TOTAL 8.5 LAB L500.75791 0.2-1.0 MG/DL Normal BILI TOTAL 0.5 LAB L500.81536 8-34 U/L Normal SGOT (AST) 20 Result Comment: RESULTS MAY BE FALSELY DEPRESSED AFTER THE ADMINISTRATION OF SULFASALAZINE AND/OR SULFAPYRIDINE. LAB L500.73385 13-61 IU/L Normal SGPT (ALT) 38 Result Comment: RESULTS MAY BE FALSELY DEPRESSED AFTER THE ADMINISTRATION OF SULFASALAZINE AND/OR SULFAPYRIDINE. LAB L500.31396 45-117 U/L High ALK PHOS 129 Performed By: #### L500.94417, L500.36717, L520.33002 #### [facility] [place] [address] GFR EST Collected: 06/04/2018 Status: F Source: [facility] 8:00 AM [facility] REPOSITORY TYPE CODE TESTS RESULT OUT OF RANGE REFERENCE UNITS LAB L500.16772 ML/MIN Normal IF non-AFR Greater than AMER 60 LAB L500.12169 ML/MIN Normal IF Greater than AMER 60 Performed By: #### L500.12347, L500.37220, L520.76163 #### [facility] [address] [place] [address] VANC TROUGH Collected: 06/04/2018 Status: F Source: [facility] 8:00 AM [facility] REPOSITORY TYPE CODE TESTS RESULT OUT OF REFERENCE UNITS RANGE LAB L520.93064 15.0-20.0 MCG/ML Low VANC TROUGH 9.4 Performed By: #### L500.37703, L500.14090, L520.59234 #### [facility] [address] [place] [address] CBC W/DIFF Collected: 06/04/2018 Status: F Source: [facility] 8:00 AM [facility] REPOSITORY TYPE CODE TESTS RESULT OUT OF RANGE REFERENCE UNITS LAB L200.87174 4.5-11.0 K/CU MM WBC Normal 6.8 LAB L200.03659 4.50-6.00 M/CU MM RBC Normal 4.82 LAB L200.04726 13.5-17.5 G/DL Low HGB 11.9 LAB L200.35273 41.0-53.0 % Low HCT 36.0 LAB L200.41913 80.0-99.0 fl Low MCV 74.7 LAB L200.39680 32.0-36.0 GM/DL MCHC Normal 33.1 LAB L200.11638 11-14.5 High RDW 19.7 LAB L200.35738 9.4-12.4 MPV Normal 9.7 LAB L200.90090 150-450 K/CU MM PLT Normal 288 LAB L200.27407 45-75 % NEUTROPHILS Normal % 66.6 LAB L200.97543 Less than 2 % IMMATURE Normal GRAN % 0.6 LAB L200.95187 20-40 % Low LYMPH % 14.9 LAB L200.21348 2-10 % High MONOCYTE % 10.9 LAB L200.68644 0-5 % High EOSINOPHIL % 6.6 LAB L200.79940 0-2 % BASOPHIL % Normal 0.4 LAB L200.65920 2.0-8.3 K/CU MM NEUTROPHIL Normal ABS 4.50 LAB L200.68649 Less than 2 K/CU MM IMMATR GRAN Normal ABS 0.00 LAB L200.67167 0.9-4.4 K/CU MM LYMPH ABS Normal 1.00 LAB L200.63855 0.1-1.1 K/CU MM MONO ABS Normal 0.70 LAB L200.18215 0-0.5 K/CU MM EOS ABS Normal 0.50 LAB L200.32860 0-0.2 K/CU MM BASO ABS Normal 0.00 LAB L200.56640 Less than 1 % NRBC Normal 0.0 Performed By: #### L200.06913, L200.29156 #### [facility] [address] [place] [address] WSR/MOD Collected: 06/04/2018 Status: F Source: [facility] 8:00 AM [facility] REPOSITORY TYPE CODE TESTS RESULT OUT OF RANGE REFERENCE UNITS LAB L200.49435 0-15 MM/HR High WSR/MOD 61 Performed By: #### L200.58045, L200.69864 #### [facility] [address] [place], [place] [id number] CMP Collected: 05/28/2018 Status: F Source: [facility] 8:00 PM [facility] REPOSITORY TYPE CODE TESTS RESULT OUT OF RANGE REFERENCE UNITS LAB L500.40567 136-145 MMOL/L Normal NA 139 LAB L500.07268 3.5-5.1 MMOL/L Normal K 3.9 LAB L500.79094 98-107 MMOL/L Normal CL 102 LAB L500.44851 21-32 MMOL/L Normal CO2 32 LAB L500.01331 5-16 MMOL/L Normal AGAP 6 LAB L500.19072 70-100 MG/DL Normal GLU 91 Result Comment: 70-100- Normal Fasting; 100-125 Impaired Fasting; greater than 126 on more than one result- Diabetes. ADA guidelines. Results may be falsely elevated after the administration of Sulfapyridine. Results may be falsely depressed after the administration of Sulfasalazine. LAB L500.07819 7-26 MG/DL Normal BUN 12 LAB L500.94762 0.670-1.170 MG/DL Normal CREAT 0.802 Result Comment: Patients receiving either N-Acetylcysteine (NAC) or Metamizole prior to venipuncture, may have falsely depressed results. LAB L500.13571 15-24 Normal BUN/CREA 15 LAB L500.27339 6.0-8.5 GM/DL Normal TP 7.9 LAB L500.95150 3.2-5.0 GM/DL Normal ALBUMIN 3.4 LAB L500.41016 2.2-4.2 GM/DL High GLOBULIN 4.5 LAB L500.62759 0.8-2.0 Normal A/G RATIO 0.8 LAB L500.14007 8.5-10.1 MG/DL Low CALCIUM TOTAL 8.4 LAB L500.11810 0.2-1.0 MG/DL Normal BILI TOTAL 0.6 LAB L500.83861 8-34 U/L Normal SGOT (AST) 22 Result Comment: RESULTS MAY BE FALSELY DEPRESSED AFTER THE ADMINISTRATION OF SULFASALAZINE AND/OR SULFAPYRIDINE. LAB L500.41501 13-61 IU/L Normal SGPT (ALT) 39 Result Comment: RESULTS MAY BE FALSELY DEPRESSED AFTER THE ADMINISTRATION OF SULFASALAZINE AND/OR SULFAPYRIDINE. LAB L500.80546 45-117 U/L High ALK PHOS 118 Performed By: #### L500.05069, L500.14143, L520.29798 #### [facility] [place] [address] GFR EST Collected: 05/28/2018 Status: F Source: [facility] 8:00 PM [facility] REPOSITORY TYPE CODE TESTS RESULT OUT OF RANGE REFERENCE UNITS LAB L500.14124 ML/MIN Normal IF non-AFR Greater than AMER 60 LAB L500.77732 ML/MIN Normal IF Greater than AMER 60 Performed By: #### L500.66134, L500.19835, L520.69531 #### [facility] [address] [place] [address] VANC TROUGH Collected: 05/28/2018 Status: F Source: [facility] 8:00 PM [facility] REPOSITORY TYPE CODE TESTS RESULT OUT OF REFERENCE UNITS RANGE LAB L520.58814 15.0-20.0 MCG/ML Low VANC TROUGH 10.1 Performed By: #### L500.55065, L500.53740, L520.50147 #### [facility] [address]# [phone] CBC W/DIFF Collected: 05/28/2018 Status: F Source: [facility] 8:00 PM [facility] REPOSITORY TYPE CODE TESTS RESULT OUT OF RANGE REFERENCE UNITS LAB L200.32816 4.5-11.0 K/CU MM WBC Normal 5.4 LAB L200.67024 4.50-6.00 M/CU MM RBC Normal 4.99 LAB L200.52347 13.5-17.5 G/DL Low HGB 11.9 LAB L200.56701 41.0-53.0 % Low HCT 36.9 LAB L200.70411 80.0-99.0 fl Low MCV 73.9 LAB L200.77913 32.0-36.0 GM/DL MCHC Normal 32.2 LAB L200.91654 11-14.5 High RDW 19.5 LAB L200.25550 9.4-12.4 MPV Normal 9.8 LAB L200.07852 150-450 K/CU MM PLT Normal 232 LAB L200.13165 45-75 % NEUTROPHILS Normal % 68.2 LAB L200.11781 Less than 2 % IMMATURE Normal GRAN % 0.4 LAB L200.43292 20-40 % Low LYMPH % 15.5 LAB L200.13210 2-10 % MONOCYTE % Normal 9.8 LAB L200.21153 0-5 % High EOSINOPHIL % 5.7 LAB L200.41207 0-2 % BASOPHIL % Normal 0.4 LAB L200.54557 2.0-8.3 K/CU MM NEUTROPHIL Normal ABS 3.70 LAB L200.16982 Less than 2 K/CU MM IMMATR GRAN Normal ABS 0.00 LAB L200.34404 0.9-4.4 K/CU MM Low LYMPH ABS 0.80 LAB L200.63633 0.1-1.1 K/CU MM MONO ABS Normal 0.50 LAB L200.79655 0-0.5 K/CU MM EOS ABS Normal 0.30 LAB L200.38400 0-0.2 K/CU MM BASO ABS Normal 0.00 LAB L200.05035 Less than 1 % NRBC Normal 0.0 Performed By: #### L200.26327, L200.44849 #### [facility] [address] [place] [address] WSR/MOD Collected: 05/28/2018 Status: F Source: [facility] 8:00 PM [facility] REPOSITORY TYPE CODE TESTS RESULT OUT OF RANGE REFERENCE UNITS LAB L200.39177 0-15 MM/HR High WSR/MOD 45 Performed By: #### L200.93732, L200.07715 #### [facility] [address] [place] [address] CMP Collected: 05/21/2018 Status: F Source: [facility] 7:30 PM [facility] REPOSITORY TYPE CODE TESTS RESULT OUT OF RANGE REFERENCE UNITS LAB L500.88454 136-145 MMOL/L Normal NA 139 LAB L500.79673 3.5-5.1 MMOL/L Normal K 4.2 LAB L500.27282 98-107 MMOL/L Normal CL 101 LAB L500.94164 21-32 MMOL/L Normal CO2 28 LAB L500.09687 5-16 MMOL/L Normal AGAP 10 LAB L500.15822 70-100 MG/DL Low GLU 68 Result Comment: 70-100- Normal Fasting; 100-125 Impaired Fasting; greater than 126 on more than one result- Diabetes. ADA guidelines. Results may be falsely elevated after the administration of Sulfapyridine. Results may be falsely depressed after the administration of Sulfasalazine. LAB L500.38938 7-26 MG/DL Normal BUN 16 LAB L500.54180 0.670-1.170 MG/DL Normal CREAT 0.903 Result Comment: Patients receiving either N-Acetylcysteine (NAC) or Metamizole prior to venipuncture, may have falsely depressed results. LAB L500.58046 15-24 Normal BUN/CREA 18 LAB L500.94060 6.0-8.5 GM/DL Normal TP 8.0 LAB L500.45144 3.2-5.0 GM/DL Normal ALBUMIN 3.3 LAB L500.55088 2.2-4.2 GM/DL High GLOBULIN 4.7 LAB L500.62076 0.8-2.0 Low A/G RATIO 0.7 LAB L500.20110 8.5-10.1 MG/DL Low CALCIUM TOTAL 8.3 LAB L500.46908 0.2-1.0 MG/DL Normal BILI TOTAL 0.5 LAB L500.52992 8-34 U/L Normal SGOT (AST) 29 Result Comment: RESULTS MAY BE FALSELY DEPRESSED AFTER THE ADMINISTRATION OF SULFASALAZINE AND/OR SULFAPYRIDINE. LAB L500.09849 13-61 IU/L Normal SGPT (ALT) 49 Result Comment: RESULTS MAY BE FALSELY DEPRESSED AFTER THE ADMINISTRATION OF SULFASALAZINE AND/OR SULFAPYRIDINE. LAB L500.93800 45-117 U/L Normal ALK PHOS 113 Performed By: #### L500.55910, L500.08134, L520.06817 #### [facility] [address] [place] [address] GFR EST Collected: 05/21/2018 Status: F Source: [facility] 7:30 PM [facility] REPOSITORY TYPE CODE TESTS RESULT OUT OF RANGE REFERENCE UNITS LAB L500.08157 ML/MIN Normal IF non-AFR Greater than AMER 60 LAB L500.75203 ML/MIN Normal IF Greater than AMER 60 Performed By: #### L500.66199, L500.69456, L520.34204 #### [facility] [address] [place] [address] VANC TROUGH Collected: 05/21/2018 Status: F Source: [facility] 7:30 PM [facility] REPOSITORY TYPE CODE TESTS RESULT OUT OF REFERENCE UNITS RANGE LAB L520.57260 15.0-20.0 MCG/ML Low VANC TROUGH 9.6 Performed By: #### L500.29413, L500.55406, L520.17808 #### [facility] [address] [place] [address] CBC Collected: 05/21/2018 Status: F Source: [facility] 7:30 PM [facility] REPOSITORY TYPE CODE TESTS RESULT OUT OF RANGE REFERENCE UNITS LAB L200.32999 4.5-11.0 K/CU MM Normal WBC 5.5 LAB L200.61128 4.50-6.00 M/CU MM Low RBC 4.48 LAB L200.99172 13.5-17.5 G/DL Low HGB 10.6 LAB L200.76540 41.0-53.0 % Low HCT 33.7 LAB L200.68167 80.0-99.0 fl Low MCV 75.2 LAB L200.55821 32.0-36.0 GM/DL Low MCHC 31.5 LAB L200.52602 11-14.5 High RDW 19.6 LAB L200.82411 9.4-12.4 Normal MPV 9.7 LAB L200.58830 150-450 K/CU MM Normal PLT 223 LAB L200.10984 Less than 1 % Normal NRBC 0.0 Performed By: #### L200.15475, L200.89471 #### [facility] [address] [place] [address] WSR/MOD Collected: 05/21/2018 Status: F Source: [facility] 7:30 PM [facility] REPOSITORY TYPE CODE TESTS RESULT OUT OF RANGE REFERENCE UNITS LAB L200.81059 0-15 MM/HR High WSR/MOD 59 Performed By: #### L200.79240, L200.79753 #### [facility] [address] [place] [address] CMP Collected: 05/15/2018 Status: F Source: [facility] 7:45 PM [facility] REPOSITORY TYPE CODE TESTS RESULT OUT OF RANGE REFERENCE UNITS LAB L500.93562 136-145 MMOL/L Normal NA 138 LAB L500.03503 3.5-5.1 MMOL/L Normal K 4.3 LAB L500.85629 98-107 MMOL/L Normal CL 101 LAB L500.57982 21-32 MMOL/L Normal CO2 30 LAB L500.28517 5-16 MMOL/L Normal AGAP 8 LAB L500.21822 70-100 MG/DL Normal GLU 88 Result Comment: 70-100- Normal Fasting; 100-125 Impaired Fasting; greater than 126 on more than one result- Diabetes. ADA guidelines. Results may be falsely elevated after the administration of Sulfapyridine. Results may be falsely depressed after the administration of Sulfasalazine. LAB L500.40236 7-26 MG/DL Normal BUN 18 LAB L500.96098 0.670-1.170 MG/DL Normal CREAT 0.781 Result Comment: Patients receiving either N-Acetylcysteine (NAC) or Metamizole prior to venipuncture, may have falsely depressed results. LAB L500.59964 15-24 Normal BUN/CREA 23 LAB L500.25550 6.0-8.5 GM/DL Normal TP 8.0 LAB L500.61279 3.2-5.0 GM/DL Normal ALBUMIN 3.2 LAB L500.91519 2.2-4.2 GM/DL High GLOBULIN 4.8 LAB L500.95860 0.8-2.0 Low A/G RATIO 0.7 LAB L500.13743 8.5-10.1 MG/DL Low CALCIUM TOTAL 8.2 LAB L500.48095 0.2-1.0 MG/DL Normal BILI TOTAL 0.3 LAB L500.05158 8-34 U/L Normal SGOT (AST) 30 Result Comment: RESULTS MAY BE FALSELY DEPRESSED AFTER THE ADMINISTRATION OF SULFASALAZINE AND/OR SULFAPYRIDINE. LAB L500.08747 13-61 IU/L Normal SGPT (ALT) 56 Result Comment: RESULTS MAY BE FALSELY DEPRESSED AFTER THE ADMINISTRATION OF SULFASALAZINE AND/OR SULFAPYRIDINE. LAB L500.13169 45-117 U/L Normal ALK PHOS 110 Performed By: #### L500.09803, L500.51861, L520.97779 #### [facility] [address] [place] [address] GFR EST Collected: 05/15/2018 Status: F Source: [facility] 7:45 PM [facility] REPOSITORY TYPE CODE TESTS RESULT OUT OF RANGE REFERENCE UNITS LAB L500.27452 ML/MIN Normal IF non-AFR Greater than AMER 60 LAB L500.50878 ML/MIN Normal IF Greater than AMER 60 Performed By: #### L500.64212, L500.48670, L520.42329 #### [facility] [address] [place] [address] VANC TROUGH Collected: 05/15/2018 Status: F Source: [facility] 7:45 PM [facility] REPOSITORY TYPE CODE TESTS RESULT OUT OF REFERENCE UNITS RANGE LAB L520.96517 15.0-20.0 MCG/ML Low VANC TROUGH 10.1 Performed By: #### L500.36066, L500.57171, L520.98744 #### [facility] [place] [address] CBC Collected: 05/15/2018 Status: F Source: [facility] 7:45 PM [facility] REPOSITORY TYPE CODE TESTS RESULT OUT OF RANGE REFERENCE UNITS LAB L200.25009 4.5-11.0 K/CU MM Normal WBC 7.8 LAB L200.42167 4.50-6.00 M/CU MM Normal RBC 4.74 LAB L200.17421 13.5-17.5 G/DL Low HGB 11.3 LAB L200.76813 41.0-53.0 % Low HCT 36.0 LAB L200.52581 80.0-99.0 fl Low MCV 75.9 LAB L200.06112 32.0-36.0 GM/DL Low MCHC 31.4 LAB L200.76955 11-14.5 High RDW 19.2 LAB L200.10374 9.4-12.4 Normal MPV 10.1 LAB L200.58008 150-450 K/CU MM Normal PLT 229 LAB L200.17006 Less than 1 % Normal NRBC 0.0 Performed By: #### L200.31775, L200.03408 #### [facility] [address] [place] [address] WSR/MOD Collected: 05/15/2018 Status: F Source: [facility] 7:45 PM [facility] REPOSITORY TYPE CODE TESTS RESULT OUT OF RANGE REFERENCE UNITS LAB L200.48323 0-15 MM/HR High WSR/MOD 45 Performed By: #### L200.52124, L200.59024 #### [facility] [address] [place] [address] CBC Collected: 05/11/2018 Status: F Source: [facility] 5:10 AM [facility] REPOSITORY TYPE CODE TESTS RESULT OUT OF REFERENCE UNITS RANGE LAB WBC(LOINC) 4.50-10.80 10 3/mcL WBC 6.30 LAB RBCCT(LOINC 4.50-6.00 10 6/mcL ) RBC 4.55 LAB HGB(LOINC) 13.0-17.5 G/dL Low Hgb 10.8 LAB HCT(LOINC) 40.0-52.0 % Low Hct 32.8 LAB MCV(LOINC) 81.0-100.0 fL Low MCV 72.1 LAB MCH(LOINC) 27.0-33.0 pg Low MCH 23.7 LAB MCHC(LOINC) 32.0-36.0 G/dL MCHC 32.9 LAB RDW(LOINC) 11.5-15.5 % High RDW 19.1 LAB PLT(LOINC) 150-450 10 3/mcL Platelet 212 LAB MPV(LOINC) 6.4-10.5 fL MPV 7.6 Performed By: #### CBC, ADALTA, ANEU #### [address] [address] .AUTO DIFF Collected: 05/11/2018 Status: F Source: [facility] 5:10 AM [facility] REPOSITORY TYPE CODE TESTS RESULT OUT OF REFERENCE UNITS RANGE LAB HELDER(LOINC) 50.0-75.0 % Neutrophil % 70.8 LAB LYM(LOINC) 20.0-40.0 % Low Lymphocyte % 15.6 LAB MON(LOINC) 2.0-13.0 % Monocyte % 8.1 LAB EO(LOINC) 0.0-6.0 % Eosinophil % 4.4 LAB BAS(LOINC) 0.0-2.5 % Basophil % 1.1 LAB ABLYM(LOIN 0.90-4.32 10 3/mcL C) Lymphocyte, 1.00 Absolute LAB JONATHAN(LOINC 0.09-1.40 10 3/mcL ) Monocyte, 0.50 Absolute LAB AEOS(LOINC 0.00-0.65 10 3/mcL ) Eosinophil, 0.30 Absolute LAB ABAS(LOINC 0.00-0.27 10 3/mcL ) Basophil, 0.10 Absolute Performed By: #### CBC, ADIFF, ANEU #### [address] [address] .NEUABS Collected: 05/11/2018 Status: F Source: [facility] 5:10 AM [facility] REPOSITORY TYPE CODE TESTS RESULT OUT OF REFERENCE UNITS RANGE LAB ANEU(LOINC) 2.25-8.10 10 3/mcL Neutrophil, 4.50 Absolute Performed By: #### CBC, ADIFF, ANEU #### [place] [address] BMP Collected: 05/11/2018 Status: F Source: [facility] 5:10 AM [facility] REPOSITORY TYPE CODE TESTS RESULT OUT OF REFERENCE UNITS RANGE LAB GLU(LOINC) 70-110 mg/dL Glucose High Level 127 LAB NA(LOINC) 136-145 mEq/L Sodium Level 143 LAB K(LOINC) 3.5-5.0 mEq/L Potassium Level 4.1 LAB CL(LOINC) 98-110 mEq/L Chloride 102 LAB CO2(LOINC) 22-32 mEq/L CO2 High 35 LAB EBAL(LOINC 4.0-15.0 mEq/L ) Electrolyte Balance 6.0 LAB BUN(LOINC) 8.0-22.0 mg/dL BUN 16.0 LAB CRE(LOINC) 0.60-1.40 mg/dL Creatinine Lvl (s) 0.77 LAB BC(LOINC) 10.0-22.0 ratio BUN/Creatinine 20.8 Ratio LAB CA(LOINC) 8.4-10.1 mg/dL Calcium Lvl 8.6 Performed By: #### BMP, GFR #### [place] [address] .GFR Collected: 05/11/2018 Status: F Source: [facility] 5:10 AM [facility] REPOSITORY TYPE CODE TESTS RESULT OUT OF REFERENCE UNITS RANGE LAB GFRAA(LOINC ml/min/1.73 ) sqm GFR >60 Spanish Result Comment: GFR Population mean for , Non- Americans Ages 20-29 = 116 mL/min/1.73 sq.m. Ages 30-39 = 107 mL/min/1.73 sq.m. Ages 40-49 = 99 mL/min/1.73 sq.m. Ages 50-59 = 93 mL/min/1.73 sq.m. Ages 60-69 = 85 mL/min/1.73 sq.m. Ages 70+ = 75 mL/min/1.73 sq.m. Chronic Kidney Disease: Less than 60 mL/min/1.73 square meters End Stage Renal Disease: Less than 15 mL/min/1.73 square meters LAB GFRNO(LOINC) ml/min/1.73sqm GFR Non- >60 Result Comment: GFR Population mean for , Non- Americans Ages 20-29 = 116 mL/min/1.73 sq.m. Ages 30-39 = 107 mL/min/1.73 sq.m. Ages 40-49 = 99 mL/min/1.73 sq.m. Ages 50-59 = 93 mL/min/1.73 sq.m. Ages 60-69 = 85 mL/min/1.73 sq.m. Ages 70+ = 75 mL/min/1.73 sq.m. Chronic Kidney Disease: Less than 60 mL/min/1.73 square meters End Stage Renal Disease: Less than 15 mL/min/1.73 square meters Performed By: #### BMP, GFR #### [address] [address] CBC Collected: 05/10/2018 Status: F Source: [facility] 5:33 AM [facility] REPOSITORY TYPE CODE TESTS RESULT OUT OF REFERENCE UNITS RANGE LAB WBC(LOINC) 4.50-10.80 10 3/mcL WBC 7.10 LAB RBCCT(LOINC 4.50-6.00 10 6/mcL ) Low RBC 4.38 LAB HGB(LOINC) 13.0-17.5 G/dL Low Hgb 10.5 LAB HCT(LOINC) 40.0-52.0 % Low Hct 31.5 LAB MCV(LOINC) 81.0-100.0 fL Low MCV 71.8 LAB MCH(LOINC) 27.0-33.0 pg Low MCH 24.0 LAB MCHC(LOINC) 32.0-36.0 G/dL MCHC 33.5 LAB RDW(LOINC) 11.5-15.5 % High RDW 18.9 LAB PLT(LOINC) 150-450 10 3/mcL Platelet 224 LAB MPV(LOINC) 6.4-10.5 fL MPV 7.6 Performed By: #### CBC, ADIFF, ANEU, BMP, GFR #### [place] [address] .AUTO DIFF Collected: 05/10/2018 Status: F Source: [facility] 5:33 AM [facility] REPOSITORY TYPE CODE TESTS RESULT OUT OF REFERENCE UNITS RANGE LAB HELDER(LOINC) 50.0-75.0 % Neutrophil % 72.8 LAB LYM(LOINC) 20.0-40.0 % Low Lymphocyte % 14.9 LAB MON(LOINC) 2.0-13.0 % Monocyte % 7.8 LAB EO(LOINC) 0.0-6.0 % Eosinophil % 3.5 LAB BAS(LOINC) 0.0-2.5 % Basophil % 1.0 LAB ABLYM(LOIN 0.90-4.32 10 3/mcL C) Lymphocyte, 1.10 Absolute LAB JONATHAN(LOINC 0.09-1.40 10 3/mcL ) Monocyte, 0.60 Absolute LAB AEOS(LOINC 0.00-0.65 10 3/mcL ) Eosinophil, 0.30 Absolute LAB ABAS(LOINC 0.00-0.27 10 3/mcL ) Basophil, 0.10 Absolute Performed By: #### CBC, ADIFF, ANEU, BMP, GFR #### [place] [address] .NEUABS Collected: 05/10/2018 Status: F Source: [facility] 5:33 AM [facility] REPOSITORY TYPE CODE TESTS RESULT OUT OF REFERENCE UNITS RANGE LAB ANEU(LOINC) 2.25-8.10 10 3/mcL Neutrophil, 5.20 Absolute Performed By: #### CBC, ADIFF, ANEU, BMP, GFR #### [place] [address] BMP Collected: 05/10/2018 Status: F Source: [facility] 5:33 AM [facility] REPOSITORY TYPE CODE TESTS RESULT OUT OF REFERENCE UNITS RANGE LAB GLU(LOINC) 70-110 mg/dL Glucose Level 107 LAB NA(LOINC) 136-145 mEq/L Sodium Level 140 LAB K(LOINC) 3.5-5.0 mEq/L Potassium Level 4.3 LAB CL(LOINC) 98-110 mEq/L Chloride 103 LAB CO2(LOINC) 22-32 mEq/L CO2 30 LAB EBAL(LOINC 4.0-15.0 mEq/L ) Electrolyte Balance 7.0 LAB BUN(LOINC) 8.0-22.0 mg/dL BUN 15.0 LAB CRE(LOINC) 0.60-1.40 mg/dL Creatinine Lvl (s) 0.77 LAB BC(LOINC) 10.0-22.0 ratio BUN/Creatinine 19.5 Ratio LAB CA(LOINC) 8.4-10.1 mg/dL Calcium Lvl 8.7 Performed By: #### CBC, ADIFF, ANEU, BMP, GFR #### [place] [address] .GFR Collected: 05/10/2018 Status: F Source: [facility] 5:33 AM [facility] REPOSITORY TYPE CODE TESTS RESULT OUT OF REFERENCE UNITS RANGE LAB GFRAA(LOINC ml/min/1.73 ) sqm GFR >60 Spanish Result Comment: GFR Population mean for , Non- Americans Ages 20-29 = 116 mL/min/1.73 sq.m. Ages 30-39 = 107 mL/min/1.73 sq.m. Ages 40-49 = 99 mL/min/1.73 sq.m. Ages 50-59 = 93 mL/min/1.73 sq.m. Ages 60-69 = 85 mL/min/1.73 sq.m. Ages 70+ = 75 mL/min/1.73 sq.m. Chronic Kidney Disease: Less than 60 mL/min/1.73 square meters End Stage Renal Disease: Less than 15 mL/min/1.73 square meters LAB GFRNO(LOINC) ml/min/1.73sqm GFR Non- >60 Result Comment: GFR Population mean for , Non- Americans Ages 20-29 = 116 mL/min/1.73 sq.m. Ages 30-39 = 107 mL/min/1.73 sq.m. Ages 40-49 = 99 mL/min/1.73 sq.m. Ages 50-59 = 93 mL/min/1.73 sq.m. Ages 60-69 = 85 mL/min/1.73 sq.m. Ages 70+ = 75 mL/min/1.73 sq.m. Chronic Kidney Disease: Less than 60 mL/min/1.73 square meters End Stage Renal Disease: Less than 15 mL/min/1.73 square meters Performed By: #### CBC, ADIFF, ANEU, BMP, GFR #### [address] [address] CBC Collected: 05/09/2018 Status: F Source: [facility] 5:16 AM [facility] REPOSITORY TYPE CODE TESTS RESULT OUT OF REFERENCE UNITS RANGE LAB WBC(LOINC) 4.50-10.80 10 3/mcL WBC 6.90 LAB RBCCT(LOINC 4.50-6.00 10 6/mcL ) Low RBC 4.41 LAB HGB(LOINC) 13.0-17.5 G/dL Low Hgb 10.5 LAB HCT(LOINC) 40.0-52.0 % Low Hct 31.7 LAB MCV(LOINC) 81.0-100.0 fL Low MCV 71.9 LAB MCH(LOINC) 27.0-33.0 pg Low MCH 23.9 LAB MCHC(LOINC) 32.0-36.0 G/dL MCHC 33.2 LAB RDW(LOINC) 11.5-15.5 % High RDW 19.0 LAB PLT(LOINC) 150-450 10 3/mcL Platelet 209 LAB MPV(LOINC) 6.4-10.5 fL MPV 7.8 Performed By: #### CBC, ADALTA, ANEU #### [address] [address] .AUTO DIFF Collected: 05/09/2018 Status: F Source: [facility] 5:16 AM [facility] REPOSITORY TYPE CODE TESTS RESULT OUT OF REFERENCE UNITS RANGE LAB HELDER(LOINC) 50.0-75.0 % Neutrophil % 73.5 LAB LYM(LOINC) 20.0-40.0 % Low Lymphocyte % 14.4 LAB MON(LOINC) 2.0-13.0 % Monocyte % 7.4 LAB EO(LOINC) 0.0-6.0 % Eosinophil % 3.2 LAB BAS(LOINC) 0.0-2.5 % Basophil % 1.5 LAB ABLYM(LOIN 0.90-4.32 10 3/mcL C) Lymphocyte, 1.00 Absolute LAB JONATHAN(LOINC 0.09-1.40 10 3/mcL ) Monocyte, 0.50 Absolute LAB AEOS(LOINC 0.00-0.65 10 3/mcL ) Eosinophil, 0.20 Absolute LAB ABAS(LOINC 0.00-0.27 10 3/mcL ) Basophil, 0.10 Absolute Performed By: #### CBCYARED, ANEU #### [address] [address] .NEUABS Collected: 05/09/2018 Status: F Source: [facility] 5:16 AM [facility] REPOSITORY TYPE CODE TESTS RESULT OUT OF REFERENCE UNITS RANGE LAB ANEU(LOINC) 2.25-8.10 10 3/mcL Neutrophil, 5.00 Absolute Performed By: #### CBCYARED, ANEU #### [address] [address] BMP Collected: 05/09/2018 Status: F Source: [facility] 5:16 AM [facility] REPOSITORY TYPE CODE TESTS RESULT OUT OF REFERENCE UNITS RANGE LAB GLU(LOINC) 70-110 mg/dL Glucose Level 107 LAB NA(LOINC) 136-145 mEq/L Sodium Level 141 LAB K(LOINC) 3.5-5.0 mEq/L Potassium Level 4.1 LAB CL(LOINC) 98-110 mEq/L Chloride 102 LAB CO2(LOINC) 22-32 mEq/L CO2 32 LAB EBAL(LOINC 4.0-15.0 mEq/L ) Electrolyte Balance 7.0 LAB BUN(LOINC) 8.0-22.0 mg/dL BUN 12.0 LAB CRE(LOINC) 0.60-1.40 mg/dL Creatinine Lvl (s) 0.75 LAB BC(LOINC) 10.0-22.0 ratio BUN/Creatinine 16.0 Ratio LAB CA(LOINC) 8.4-10.1 mg/dL Calcium Lvl 8.6 Performed By: #### BMP, GFR #### [address] [address] .GFR Collected: 05/09/2018 Status: F Source: [facility] 5:16 AM [facility] REPOSITORY TYPE CODE TESTS RESULT OUT OF REFERENCE UNITS RANGE LAB GFRAA(LOINC ml/min/1.73 ) sqm GFR >60 Spanish Result Comment: GFR Population mean for , Non- Americans Ages 20-29 = 116 mL/min/1.73 sq.m. Ages 30-39 = 107 mL/min/1.73 sq.m. Ages 40-49 = 99 mL/min/1.73 sq.m. Ages 50-59 = 93 mL/min/1.73 sq.m. Ages 60-69 = 85 mL/min/1.73 sq.m. Ages 70+ = 75 mL/min/1.73 sq.m. Chronic Kidney Disease: Less than 60 mL/min/1.73 square meters End Stage Renal Disease: Less than 15 mL/min/1.73 square meters LAB GFRNO(LOINC) ml/min/1.73sqm GFR Non- >60 Result Comment: GFR Population mean for , Non- Americans Ages 20-29 = 116 mL/min/1.73 sq.m. Ages 30-39 = 107 mL/min/1.73 sq.m. Ages 40-49 = 99 mL/min/1.73 sq.m. Ages 50-59 = 93 mL/min/1.73 sq.m. Ages 60-69 = 85 mL/min/1.73 sq.m. Ages 70+ = 75 mL/min/1.73 sq.m. Chronic Kidney Disease: Less than 60 mL/min/1.73 square meters End Stage Renal Disease: Less than 15 mL/min/1.73 square meters Performed By: #### BMP, GFR #### [place] [address] OT D/C OF NON Observed: 05/08/2018 Status: F Source: [facility] PT 9:22 AM [facility] Occupational Therapy [address] [place], [place] [id number] Fax REHABILITATION SERVICES DISCHARGE SUMMARY MR#: [id number] Acct: [id number] Name: HOMERO BOBBY Rep #: [id number] : 1975 43 From: Haydee ASHRAF/[place], CHT Referring DrMeeta: Nona Johnson MD Status: REG RCR Eval Date: Discharge Date: HP - Discharge Summary - Patient Information HOMERO BOBBY was seen in my office for initial evaluation on 12/12/17. The following Plan of Care was established for this patient: - Anticipated Interventions Anticipated Interventions: Education re assistive Equipment, Education re Diagnosis, Education re Life-long lymphedema Management, Education re Correct Donning Tech,Care AND Wearing Sched Comp Garments, Caregiver Training This patient was last seen in our office 12/12/17. Pertinent comments regarding their Occupational therapy will appear below: Pt was seen for inital OT eval only- pt did not return for follow up visit and due to time laps in tx pt d/c at this time. At this point I will be discontinuing this patient from occupational therapy. I would be happy to see this patient again in the future if found appropriate by the physician. Thank you! Haydee Starks, OTR/L, CHT <Electronically signed by Haydee Starks OTR/L, CHT> 05/08/18 0922 CC: Nona Johnson MD Signed CBC Collected: 05/08/2018 Status: F Source: [facility] 5:54 AM [facility] REPOSITORY TYPE CODE TESTS RESULT OUT OF REFERENCE UNITS RANGE LAB WBC(LOINC) 4.50-10.80 10 3/mcL WBC 6.50 LAB RBCCT(LOINC 4.50-6.00 10 6/mcL ) Low RBC 4.48 LAB HGB(LOINC) 13.0-17.5 G/dL Low Hgb 10.4 LAB HCT(LOINC) 40.0-52.0 % Low Hct 32.0 LAB MCV(LOINC) 81.0-100.0 fL Low MCV 71.3 LAB MCH(LOINC) 27.0-33.0 pg Low MCH 23.3 LAB MCHC(LOINC) 32.0-36.0 G/dL MCHC 32.7 LAB RDW(LOINC) 11.5-15.5 % High RDW 18.8 LAB PLT(LOINC) 150-450 10 3/mcL Platelet 225 LAB MPV(LOINC) 6.4-10.5 fL MPV 7.6 Performed By: #### YARED CONNELLY ANEU #### [place] [address] .AUTO DIFF Collected: 05/08/2018 Status: F Source: [facility] 5:54 AM [facility] REPOSITORY TYPE CODE TESTS RESULT OUT OF REFERENCE UNITS RANGE LAB HELDER(LOINC) 50.0-75.0 % High Neutrophil % 76.5 LAB LYM(LOINC) 20.0-40.0 % Low Lymphocyte % 11.8 LAB MON(LOINC) 2.0-13.0 % Monocyte % 7.8 LAB EO(LOINC) 0.0-6.0 % Eosinophil % 3.1 LAB BAS(LOINC) 0.0-2.5 % Basophil % 0.8 LAB ABLYM(LOIN 0.90-4.32 10 3/mcL C) Low Lymphocyte, 0.80 Absolute LAB JONATHAN(LOINC 0.09-1.40 10 3/mcL ) Monocyte, 0.50 Absolute LAB AEOS(LOINC 0.00-0.65 10 3/mcL ) Eosinophil, 0.20 Absolute LAB ABAS(LOINC 0.00-0.27 10 3/mcL ) Basophil, 0.10 Absolute Performed By: #### CBCYARED, ANEU #### [address] [id number] .NEUABS Collected: 05/08/2018 Status: F Source: [facility] 5:54 AM [facility] REPOSITORY TYPE CODE TESTS RESULT OUT OF REFERENCE UNITS RANGE LAB ANEU(LOINC) 2.25-8.10 10 3/mcL Neutrophil, 5.00 Absolute Performed By: #### CBC, ADIFF, ANEU #### [place] [address] BMP Collected: 05/08/2018 Status: F Source: [facility] 5:54 AM [facility] REPOSITORY TYPE CODE TESTS RESULT OUT OF REFERENCE UNITS RANGE LAB GLU(LOINC) 70-110 mg/dL Glucose Level 105 LAB NA(LOINC) 136-145 mEq/L Sodium Level 142 LAB K(LOINC) 3.5-5.0 mEq/L Potassium Level 4.1 LAB CL(LOINC) 98-110 mEq/L Chloride 102 LAB CO2(LOINC) 22-32 mEq/L CO2 32 LAB EBAL(LOINC 4.0-15.0 mEq/L ) Electrolyte Balance 8.0 LAB BUN(LOINC) 8.0-22.0 mg/dL BUN 11.0 LAB CRE(LOINC) 0.60-1.40 mg/dL Creatinine Lvl (s) 0.73 LAB BC(LOINC) 10.0-22.0 ratio BUN/Creatinine 15.1 Ratio LAB CA(LOINC) 8.4-10.1 mg/dL Calcium Lvl 8.6 Performed By: #### KUNAL, GFR #### [address] [id number] .GFR Collected: 05/08/2018 Status: F Source: [facility] 5:54 AM [facility] REPOSITORY TYPE CODE TESTS RESULT OUT OF REFERENCE UNITS RANGE LAB GFRAA(LOINC ml/min/1.73 ) sqm GFR >60 Spanish Result Comment: GFR Population mean for , Non- Americans Ages 20-29 = 116 mL/min/1.73 sq.m. Ages 30-39 = 107 mL/min/1.73 sq.m. Ages 40-49 = 99 mL/min/1.73 sq.m. Ages 50-59 = 93 mL/min/1.73 sq.m. Ages 60-69 = 85 mL/min/1.73 sq.m. Ages 70+ = 75 mL/min/1.73 sq.m. Chronic Kidney Disease: Less than 60 mL/min/1.73 square meters End Stage Renal Disease: Less than 15 mL/min/1.73 square meters LAB GFRNO(LOINC) ml/min/1.73sqm GFR Non- >60 Result Comment: GFR Population mean for , Non- Americans Ages 20-29 = 116 mL/min/1.73 sq.m. Ages 30-39 = 107 mL/min/1.73 sq.m. Ages 40-49 = 99 mL/min/1.73 sq.m. Ages 50-59 = 93 mL/min/1.73 sq.m. Ages 60-69 = 85 mL/min/1.73 sq.m. Ages 70+ = 75 mL/min/1.73 sq.m. Chronic Kidney Disease: Less than 60 mL/min/1.73 square meters End Stage Renal Disease: Less than 15 mL/min/1.73 square meters Performed By: #### KUNAL, GFR #### [address] [address] CBC Collected: 05/07/2018 Status: F Source: [facility] 4:52 AM [facility] REPOSITORY TYPE CODE TESTS RESULT OUT OF REFERENCE UNITS RANGE LAB WBC(LOINC) 4.50-10.80 10 3/mcL WBC 5.40 LAB RBCCT(LOINC 4.50-6.00 10 6/mcL ) Low RBC 4.31 LAB HGB(LOINC) 13.0-17.5 G/dL Low Hgb 10.2 LAB HCT(LOINC) 40.0-52.0 % Low Hct 30.6 LAB MCV(LOINC) 81.0-100.0 fL Low MCV 70.8 LAB MCH(LOINC) 27.0-33.0 pg Low MCH 23.6 LAB MCHC(LOINC) 32.0-36.0 G/dL MCHC 33.4 LAB RDW(LOINC) 11.5-15.5 % High RDW 19.2 LAB PLT(LOINC) 150-450 10 3/mcL Platelet 212 LAB MPV(LOINC) 6.4-10.5 fL MPV 7.6 Performed By: #### CBC, ADIFF, ANEU, APTT #### [address] [address] .AUTO DIFF Collected: 05/07/2018 Status: F Source: [facility] 4:52 AM [facility] REPOSITORY TYPE CODE TESTS RESULT OUT OF REFERENCE UNITS RANGE LAB HELDER(LOINC) 50.0-75.0 % Neutrophil % 70.2 LAB LYM(LOINC) 20.0-40.0 % Low Lymphocyte % 17.2 LAB MON(LOINC) 2.0-13.0 % Monocyte % 7.6 LAB EO(LOINC) 0.0-6.0 % Eosinophil % 3.8 LAB BAS(LOINC) 0.0-2.5 % Basophil % 1.2 LAB ABLYM(LOIN 0.90-4.32 10 3/mcL C) Lymphocyte, 0.90 Absolute LAB JONATHAN(LOINC 0.09-1.40 10 3/mcL ) Monocyte, 0.40 Absolute LAB AEOS(LOINC 0.00-0.65 10 3/mcL ) Eosinophil, 0.20 Absolute LAB ABAS(LOINC 0.00-0.27 10 3/mcL ) Basophil, 0.10 Absolute Performed By: #### CBC, ADIFF, ANEU, APTT #### [address] [address] .NEUABS Collected: 05/07/2018 Status: F Source: [facility] 4:52 AM [facility] REPOSITORY TYPE CODE TESTS RESULT OUT OF REFERENCE UNITS RANGE LAB ANEU(LOINC) 2.25-8.10 10 3/mcL Neutrophil, 3.80 Absolute Performed By: #### CBC, ADIFF, ANEU, APTT #### [address] [address] APTT Collected: 05/07/2018 Status: F Source: [facility] 4:52 AM [facility] REPOSITORY TYPE CODE TESTS RESULT OUT OF REFERENCE UNITS RANGE LAB PDOSE(LOIN C) Heparin dose Heparin IV (APTT) LAB APTT0(LOIN 25.0-35.0 seconds C) High APTT 64.8 Result Comment: For Heparin anticoagulation therapy, the recommended therapeutic range is: 54-77 seconds (APTT Correlation with Anti-Xa therapeutic range of 0.3-0.7 units/ml). PLEASE REFERENCE THE PHARMACY PROTOCOL FOR DOSING. Performed By: #### CBC, ADIFF, ANEU, APTT #### [place] [address] BMP Collected: 05/07/2018 Status: F Source: [facility] 4:52 AM [facility] REPOSITORY TYPE CODE TESTS RESULT OUT OF REFERENCE UNITS RANGE LAB GLU(LOINC) 70-110 mg/dL Glucose Level 107 LAB NA(LOINC) 136-145 mEq/L Sodium Level 142 LAB K(LOINC) 3.5-5.0 mEq/L Potassium Level 4.0 LAB CL(LOINC) 98-110 mEq/L Chloride 102 LAB CO2(LOINC) 22-32 mEq/L CO2 32 LAB EBAL(LOINC 4.0-15.0 mEq/L ) Electrolyte Balance 8.0 LAB BUN(LOINC) 8.0-22.0 mg/dL BUN 11.0 LAB CRE(LOINC) 0.60-1.40 mg/dL Creatinine Lvl (s) 0.73 LAB BC(LOINC) 10.0-22.0 ratio BUN/Creatinine 15.1 Ratio LAB CA(LOINC) 8.4-10.1 mg/dL Calcium Lvl 8.6 Performed By: #### BMP, GFR #### [address] [address] .GFR Collected: 05/07/2018 Status: F Source: [place] [address]:52 AM [facility] REPOSITORY TYPE CODE TESTS RESULT OUT OF REFERENCE UNITS RANGE LAB GFRAA(LOINC ml/min/1.73 ) sqm GFR >60 Spanish Result Comment: GFR Population mean for , Non- Americans Ages 20-29 = 116 mL/min/1.73 sq.m. Ages 30-39 = 107 mL/min/1.73 sq.m. Ages 40-49 = 99 mL/min/1.73 sq.m. Ages 50-59 = 93 mL/min/1.73 sq.m. Ages 60-69 = 85 mL/min/1.73 sq.m. Ages 70+ = 75 mL/min/1.73 sq.m. Chronic Kidney Disease: Less than 60 mL/min/1.73 square meters End Stage Renal Disease: Less than 15 mL/min/1.73 square meters LAB GFRNO(LOINC) ml/min/1.73sqm GFR Non- >60 Result Comment: GFR Population mean for , Non- Americans Ages 20-29 = 116 mL/min/1.73 sq.m. Ages 30-39 = 107 mL/min/1.73 sq.m. Ages 40-49 = 99 mL/min/1.73 sq.m. Ages 50-59 = 93 mL/min/1.73 sq.m. Ages 60-69 = 85 mL/min/1.73 sq.m. Ages 70+ = 75 mL/min/1.73 sq.m. Chronic Kidney Disease: Less than 60 mL/min/1.73 square meters End Stage Renal Disease: Less than 15 mL/min/1.73 square meters Performed By: #### BMP, GFR #### [place] [address] APTT Collected: 05/06/2018 Status: F Source: [facility] 7:05 PM [facility] REPOSITORY TYPE CODE TESTS RESULT OUT OF REFERENCE UNITS RANGE LAB PDOSE(LOIN C) Heparin dose Heparin IV (APTT) LAB APTT0(LOIN 25.0-35.0 seconds C) High APTT 58.4 Result Comment: For Heparin anticoagulation therapy, the recommended therapeutic range is: 54-77 seconds (APTT Correlation with Anti-Xa therapeutic range of 0.3-0.7 units/ml). PLEASE REFERENCE THE PHARMACY PROTOCOL FOR DOSING. Performed By: #### APTT #### [place] [address] APTT Collected: 05/06/2018 Status: F Source: [facility] 12:18 PM [facility] REPOSITORY TYPE CODE TESTS RESULT OUT OF REFERENCE UNITS RANGE LAB PDOSE(LOIN C) Heparin dose Heparin IV (APTT) LAB APTT0(LOIN 25.0-35.0 seconds C) High APTT 60.2 Result Comment: For Heparin anticoagulation therapy, the recommended therapeutic range is: 54-77 seconds (APTT Correlation with Anti-Xa therapeutic range of 0.3-0.7 units/ml). PLEASE REFERENCE THE PHARMACY PROTOCOL FOR DOSING. Performed By: #### APTT #### [place] [address] BMP Collected: 05/06/2018 Status: F Source: [employer] 4:49 AM [facility] REPOSITORY TYPE CODE TESTS RESULT OUT OF REFERENCE UNITS RANGE LAB GLU(LOINC) 70-110 mg/dL Glucose High Level 119 LAB NA(LOINC) 136-145 mEq/L Sodium Level 140 LAB K(LOINC) 3.5-5.0 mEq/L Potassium Level 3.9 LAB CL(LOINC) 98-110 mEq/L Chloride 103 LAB CO2(LOINC) 22-32 mEq/L CO2 32 LAB EBAL(LOINC 4.0-15.0 mEq/L ) Electrolyte Balance 5.0 LAB BUN(LOINC) 8.0-22.0 mg/dL BUN 11.0 LAB CRE(LOINC) 0.60-1.40 mg/dL Creatinine Lvl (s) 0.82 LAB BC(LOINC) 10.0-22.0 ratio BUN/Creatinine 13.4 Ratio LAB CA(LOINC) 8.4-10.1 mg/dL Low Calcium Lvl 7.9 Performed By: #### BMP, GFR #### [address] [address] .GFR Collected: 05/06/2018 Status: F Source: [facility] 4:49 AM [facility] REPOSITORY TYPE CODE TESTS RESULT OUT OF REFERENCE UNITS RANGE LAB GFRAA(LOINC ml/min/1.73 ) sqm GFR >60 Spanish Result Comment: GFR Population mean for , Non- Americans Ages 20-29 = 116 mL/min/1.73 sq.m. Ages 30-39 = 107 mL/min/1.73 sq.m. Ages 40-49 = 99 mL/min/1.73 sq.m. Ages 50-59 = 93 mL/min/1.73 sq.m. Ages 60-69 = 85 mL/min/1.73 sq.m. Ages 70+ = 75 mL/min/1.73 sq.m. Chronic Kidney Disease: Less than 60 mL/min/1.73 square meters End Stage Renal Disease: Less than 15 mL/min/1.73 square meters LAB GFRNO(LOINC) ml/min/1.73sqm GFR Non- >60 Result Comment: GFR Population mean for , Non- Americans Ages 20-29 = 116 mL/min/1.73 sq.m. Ages 30-39 = 107 mL/min/1.73 sq.m. Ages 40-49 = 99 mL/min/1.73 sq.m. Ages 50-59 = 93 mL/min/1.73 sq.m. Ages 60-69 = 85 mL/min/1.73 sq.m. Ages 70+ = 75 mL/min/1.73 sq.m. Chronic Kidney Disease: Less than 60 mL/min/1.73 square meters End Stage Renal Disease: Less than 15 mL/min/1.73 square meters Performed By: #### BMP, GFR #### [facility] [address] [place] [address] CBC Collected: 05/06/2018 Status: F Source: [facility] 4:49 AM [facility]POSITORY TYPE CODE TESTS RESULT OUT OF REFERENCE UNITS RANGE LAB WBC(LOINC) 4.50-10.80 10 3/mcL WBC 6.90 LAB RBCCT(LOINC 4.50-6.00 10 6/mcL ) Low RBC 4.18 LAB HGB(LOINC) 13.0-17.5 G/dL Low Hgb 10.0 LAB HCT(LOINC) 40.0-52.0 % Low Hct 29.6 LAB MCV(LOINC) 81.0-100.0 fL Low MCV 70.9 LAB MCH(LOINC) 27.0-33.0 pg Low MCH 23.9 LAB MCHC(LOINC) 32.0-36.0 G/dL MCHC 33.8 LAB RDW(LOINC) 11.5-15.5 % High RDW 19.2 LAB PLT(LOINC) 150-450 10 3/mcL Platelet 224 LAB MPV(LOINC) 6.4-10.5 fL MPV 8.6 Performed By: #### YARED CONNELLY ANEU #### [place] [address] .AUTO DIFF Collected: 05/06/2018 Status: F Source: [facility] 4:49 AM [facility] REPOSITORY TYPE CODE TESTS RESULT OUT OF REFERENCE UNITS RANGE LAB HELDER(LOINC) 50.0-75.0 % High Neutrophil % 79.5 LAB LYM(LOINC) 20.0-40.0 % Low Lymphocyte % 11.2 LAB MON(LOINC) 2.0-13.0 % Monocyte % 6.4 LAB EO(LOINC) 0.0-6.0 % Eosinophil % 2.5 LAB BAS(LOINC) 0.0-2.5 % Basophil % 0.4 LAB ABLYM(LOIN 0.90-4.32 10 3/mcL C) Low Lymphocyte, 0.80 Absolute LAB JONATHAN(LOINC 0.09-1.40 10 3/mcL ) Monocyte, 0.40 Absolute LAB AEOS(LOINC 0.00-0.65 10 3/mcL ) Eosinophil, 0.20 Absolute LAB ABAS(LOINC 0.00-0.27 10 3/mcL ) Basophil, 0.00 Absolute Performed By: #### YARED CONNELLY, ANEU #### [place] [address] .NEUABS Collected: 05/06/2018 Status: F Source: [facility] 4:49 AM [facility] REPOSITORY TYPE CODE TESTS RESULT OUT OF REFERENCE UNITS RANGE LAB ANEU(LOINC) 2.25-8.10 10 3/mcL Neutrophil, 5.50 Absolute Performed By: #### YARED CONNELLY, ANEU #### [place] [address] APTT Collected: 05/06/2018 Status: F Source: [facility] 4:49 AM [facility] REPOSITORY TYPE CODE TESTS RESULT OUT OF REFERENCE UNITS RANGE LAB PDOSE(LOIN C) Heparin dose Heparin IV (APTT) LAB APTT0(LOIN 25.0-35.0 seconds C) High APTT 85.4 Result Comment: For Heparin anticoagulation therapy, the recommended therapeutic range is: 54-77 seconds (APTT Correlation with Anti-Xa therapeutic range of 0.3-0.7 units/ml). PLEASE REFERENCE THE PHARMACY PROTOCOL FOR DOSING. Performed By: #### APTT #### [place] [address] BG Collected: 05/05/2018 Status: F Source: [facility] 11:29 AM [facility] REPOSITORY TYPE CODE TESTS RESULT OUT OF REFERENCE UNITS RANGE LAB PH(LOINC) 7.380-7.460 pH 7.405 LAB PCO2(LOINC 32.0-46.0 mmHg ) pCO2 High 50.8 LAB PO2(LOINC) 74.0-108.0 mmHg Low pO2 72.0 LAB HCO3(LOINC 21.0-29.0 mmol/L ) HCO3 High 31.1 LAB TCO2(LOINC 22.0-30.0 mmol/L ) CO2 Totl High 32.7 LAB BE(LOINC) mmol/L Base Excess 5.1 LAB O2SAT(LOIN 92.0-96.0 % C) O2 Sat 94.4 LAB BPRES(LOIN mmHg C) Barometric 736 Pressure Performed By: #### BG #### [place] [address] VANCT Collected: 05/05/2018 Status: F Source: [facility] 10:48 AM [facility] REPOSITORY Order Comment: Timed study for 1130 TYPE CODE TESTS RESULT OUT OF REFERENCE UNITS RANGE LAB LD019(LOIN C) LDose Vancomycin:(trou See eMAR gh) LAB VANT(LOINC 5.0-20.0 mcg/mL ) Vancomycin Tr 13.9 Performed By: #### VANCT #### [place] [address] APTT Collected: 05/05/2018 Status: F Source: [facility] 9:42 AM [facility] REPOSITORY TYPE CODE TESTS RESULT OUT OF REFERENCE UNITS RANGE LAB PDOSE(LOIN C) Heparin dose Heparin IV (APTT) LAB APTT0(LOIN 25.0-35.0 seconds C) High APTT 66.0 Result Comment: For Heparin anticoagulation therapy, the recommended therapeutic range is: 54-77 seconds (APTT Correlation with Anti-Xa therapeutic range of 0.3-0.7 units/ml). PLEASE REFERENCE THE PHARMACY PROTOCOL FOR DOSING. Performed By: #### APTT #### [address] [address] BMP Collected: 05/05/2018 Status: F Source: [facility] 3:21 AM [facility] REPOSITORY TYPE CODE TESTS RESULT OUT OF REFERENCE UNITS RANGE LAB GLU(LOINC) 70-110 mg/dL Glucose High Level 121 LAB NA(LOINC) 136-145 mEq/L Sodium Level 140 LAB K(LOINC) 3.5-5.0 mEq/L Potassium Level 3.9 LAB CL(LOINC) 98-110 mEq/L Chloride 102 LAB CO2(LOINC) 22-32 mEq/L CO2 32 LAB EBAL(LOINC 4.0-15.0 mEq/L ) Electrolyte Balance 6.0 LAB BUN(LOINC) 8.0-22.0 mg/dL BUN 17.0 LAB CRE(LOINC) 0.60-1.40 mg/dL Creatinine Lvl (s) 0.87 LAB BC(LOINC) 10.0-22.0 ratio BUN/Creatinine 19.5 Ratio LAB CA(LOINC) 8.4-10.1 mg/dL Low Calcium Lvl 8.0 Performed By: #### BMP, GFR, APTT, CBC, ADIFF, ANEU, LIPID, A1C #### [address] [address] .GFR Collected: 05/05/2018 Status: F Source: [facility] 3:21 AM [facility] REPOSITORY TYPE CODE TESTS RESULT OUT OF REFERENCE UNITS RANGE LAB GFRAA(LOINC ml/min/1.73 ) sqm GFR >60 Spanish Result Comment: GFR Population mean for , Non- Americans Ages 20-29 = 116 mL/min/1.73 sq.m. Ages 30-39 = 107 mL/min/1.73 sq.m. Ages 40-49 = 99 mL/min/1.73 sq.m. Ages 50-59 = 93 mL/min/1.73 sq.m. Ages 60-69 = 85 mL/min/1.73 sq.m. Ages 70+ = 75 mL/min/1.73 sq.m. Chronic Kidney Disease: Less than 60 mL/min/1.73 square meters End Stage Renal Disease: Less than 15 mL/min/1.73 square meters LAB GFRNO(LOINC) ml/min/1.73sqm GFR Non- >60 Result Comment: GFR Population mean for , Non- Americans Ages 20-29 = 116 mL/min/1.73 sq.m. Ages 30-39 = 107 mL/min/1.73 sq.m. Ages 40-49 = 99 mL/min/1.73 sq.m. Ages 50-59 = 93 mL/min/1.73 sq.m. Ages 60-69 = 85 mL/min/1.73 sq.m. Ages 70+ = 75 mL/min/1.73 sq.m. Chronic Kidney Disease: Less than 60 mL/min/1.73 square meters End Stage Renal Disease: Less than 15 mL/min/1.73 square meters Performed By: #### BMP, GFR, APTT, CBC, ADIFF, ANEU, LIPID, A1C #### [address] [address] APTT Collected: 05/05/2018 Status: F Source: [facility] 3:21 AM [facility] REPOSITORY TYPE CODE TESTS RESULT OUT OF REFERENCE UNITS RANGE LAB PDOSE(LOIN C) Heparin dose Heparin IV (APTT) LAB APTT0(LOIN 25.0-35.0 seconds C) High APTT 55.4 Result Comment: For Heparin anticoagulation therapy, the recommended therapeutic range is: 54-77 seconds (APTT Correlation with Anti-Xa therapeutic range of 0.3-0.7 units/ml). PLEASE REFERENCE THE PHARMACY PROTOCOL FOR DOSING. Performed By: #### BMP, GFR, APTT, CBC, ADIFF, ANEU, LIPID, A1C #### [address] [address] CBC Collected: 05/05/2018 Status: F Source: [facility] 3:21 AM [facility] REPOSITORY TYPE CODE TESTS RESULT OUT OF REFERENCE UNITS RANGE LAB WBC(LOINC) 4.50-10.80 10 3/mcL WBC 10.20 LAB RBCCT(LOINC 4.50-6.00 10 6/mcL ) Low RBC 4.28 LAB HGB(LOINC) 13.0-17.5 G/dL Low Hgb 10.2 LAB HCT(LOINC) 40.0-52.0 % Low Hct 30.4 LAB MCV(LOINC) 81.0-100.0 fL Low MCV 71.0 LAB MCH(LOINC) 27.0-33.0 pg Low MCH 23.7 LAB MCHC(LOINC) 32.0-36.0 G/dL MCHC 33.4 LAB RDW(LOINC) 11.5-15.5 % High RDW 18.9 LAB PLT(LOINC) 150-450 10 3/mcL Platelet 219 LAB MPV(LOINC) 6.4-10.5 fL MPV 7.8 Performed By: #### BMP, GFR, APTT, CBC, ADIFF, ANEU, LIPID, A1C #### [address] [address] .AUTO DIFF Collected: 05/05/2018 Status: F Source: [facility] 3:21 AM [facility] REPOSITORY TYPE CODE TESTS RESULT OUT OF REFERENCE UNITS RANGE LAB HELDER(LOINC) 50.0-75.0 % High Neutrophil % 85.0 LAB LYM(LOINC) 20.0-40.0 % Low Lymphocyte % 6.6 LAB MON(LOINC) 2.0-13.0 % Monocyte % 6.6 LAB EO(LOINC) 0.0-6.0 % Eosinophil % 1.5 LAB BAS(LOINC) 0.0-2.5 % Basophil % 0.3 LAB ABLYM(LOIN 0.90-4.32 10 3/mcL C) Low Lymphocyte, 0.70 Absolute LAB JONATHAN(LOINC 0.09-1.40 10 3/mcL ) Monocyte, 0.70 Absolute LAB AEOS(LOINC 0.00-0.65 10 3/mcL ) Eosinophil, 0.20 Absolute LAB ABAS(LOINC 0.00-0.27 10 3/mcL ) Basophil, 0.00 Absolute Performed By: #### BMP, GFR, APTT, CBC, ADIFF, ANEU, LIPID, A1C #### [address] [address] .NEUABS Collected: 05/05/2018 Status: F Source: [facility] 3:21 AM [facility] REPOSITORY TYPE CODE TESTS RESULT OUT OF REFERENCE UNITS RANGE LAB ANEU(LOINC) 2.25-8.10 10 3/mcL High Neutrophil, 8.70 Absolute Performed By: #### BMP, GFR, APTT, CBC, ADIFF, ANEU, LIPID, A1C #### [facility] [address] [place] [id number] LIPID Collected: 05/05/2018 Status: F Source: [facility] 3:21 AM [facility] REPOSITORY TYPE CODE TESTS RESULT OUT OF REFERENCE UNITS RANGE LAB CHOL(LOINC 50-199 mg/dL ) Cholesterol 147 Result Comment: Cholesterol Reference Interval: Less than 200 Desirable 200-239 Borderline high risk 240 and above High risk LAB TRIG(LOINC) 3-149 mg/dL Triglycerides High 155 Result Comment: Triglyceride Reference Interval: Less than 150 Normal 150-199 Borderline high risk 200-499 High risk 500 or higher Very high risk LAB HD(LOINC) 40-59 mg/dL HDL Low Cholesterol 27 Result Comment: HDL Reference Interval: Less than 40 Low - high risk 60 or above Optimal/lowers risk LAB LDL(LOINC) 0-129 mg/dL LDL Cholesterol 89 Result Comment: LDL is a calculated result and requires a 12-hr fast. LDL Reference Interval: Less than 100 Optimal 100-129 Near or above optimal 130-159 Borderline high risk 160-189 High risk 190 and above Very high risk Performed By: #### BMP, GFR, APTT, CBC, ADIFF, ANEU, LIPID, A1C #### [address] [address] A1C Collected: 05/05/2018 Status: F Source: [employer] [facility] 3:21 AM [facility] REPOSITORY TYPE CODE TESTS RESULT OUT OF RANGE REFERENCE UNITS LAB A1C(LOINC) 4.0-6.0 % Hgb A1c 5.0 Performed By: #### BMP, GFR, APTT, CBC, ADIFF, ANEU, LIPID, A1C #### [place] [id number] [place] [id number] Observed: 05/05/2018 Status: F Source: [employer] [facility] 2:12 AM [facility] REPOSITORY . MICRO - Microbiology PROCEDURE: Clostridium difficile PCR [^1 *1] SOURCE: Stool BODY SITE: COLLECTED DATE/TIME: 05/05/2018 02:12 EDT RECEIVED DATE/TIME: 05/05/2018 07:17 EDT START DATE/TIME: 05/05/2018 07:18 EDT FREE TEXT SOURCE: FINAL REPORTS Final Report [] Verified Date/Time/Personnel: 05/05/2018 12:14 EDT NEGATIVE. No tcdB gene DNA detected. Negative test results may occur from improper collection, handling or storage of specimen, technical error, or number of organisms below the analytical sensitivity of the test. Interpretive Data ^1: Clostridium difficile PCR As with all in vitro diagnostic tests, positive and negative predictive values are highly dependent on prevalence. The Interface21 C. difficile PCR Assay performance may vary depending on the prevalence and population tested. Performing Locations *1: This test was performed at: [facility], [address] [place] [address], [address] [place] [address] Performed By: #### CDPCR #### [place] [address] APTT Collected: 05/04/2018 Status: F Source: [facility] 8:46 [facility] REPOSITORY TYPE CODE TESTS RESULT OUT OF REFERENCE UNITS RANGE LAB PDOSE(LOIN C) Heparin dose Heparin IV (APTT) LAB APTT0(LOIN 25.0-35.0 seconds C) High APTT 52.6 Result Comment: For Heparin anticoagulation therapy, the recommended therapeutic range is: 54-77 seconds (APTT Correlation with Anti-Xa therapeutic range of 0.3-0.7 units/ml). PLEASE REFERENCE THE PHARMACY PROTOCOL FOR DOSING. Performed By: #### APTT #### [place] [address] TROPI Collected: 05/04/2018 Status: F Source: [facility] 8:46 PM [facility] REPOSITORY TYPE CODE TESTS RESULT OUT OF REFERENCE UNITS RANGE LAB TROPI(LOINC 0.000-0.040 ng/mL ) Troponin I <0.015 Result Comment: Troponin I reference ranges (05/19/14): 0.00-0.040 ng/mL Negative and non-diagnostic. >0.040 ng/mL Consistent with cardiac damage, increased clinical risk and possibility of myocardial infarction. Serial measurements, a rise & fall in test results, clinical history, appropriate symptoms and/or ECG changes may help assess possibility of SD. *Other non-acute coronary syndrome conditions such as CHF, myocarditis, pulmonary emboli, sepsis and cardiac surgery could result in myocardial damage and increased troponin levels. Performed By: #### TROPI #### [place] [address] IR PICC LINE PLACEMENT Observed: 05/04/2018 Status: F Source: [facility] 3:00 PM [facility] REPOSITORY ORIGINAL PLACEMENT OF PERIPHERALLY INSERTED CENTRAL CATHETER WITH ULTRASOUND GUIDANCE AND OVERHEAD PORTABLE CHEST X-RAY GUIDANCE : 05/04/2018 Clinical Statement: Patient requires IV access for long-term antibiotic therapy. PROCEDURE: The patient was placed in the supine position. The LEFT upper arm was prepped and draped using maximal barrier sterile technique (cap and mask and sterile gown and sterile gloves and a large sterile sheet and hand hygiene and 2% Chlorhexidine). Using ultrasound guidance, the basilic vein was identified and the area was locally anesthetized with 2% Lidocaine. Using ultrasound guidance, a no ropuncture needle was used to access the basilic vein and a guide wire inserted. A peel-away sheath was advanced into the vein. A 5.0-[place] dual lumen CT PICC was trimmed to 55 cm and advanced to the S VC through the sheath. After successful placement, the catheter was sutured to the skin with 4-0 nylon. The catheter was flushed with heparinized saline. A sterile dry dressing was applied. The patient tolerated the procedure well. The final catheter position was documented with overhead portable chest x-ray. One image was saved. An ultrasound image was recorded to document the venous access site and the needle within the patent vessel lumen. IMPRESSION: Successful placement of a 5.0 citizen of [place] dual lumen CT PICC placed from the LEFT basilic vein into the SVC. The procedure was performed by Kate Velasquez, Physician Music Autographer. I concur with the contents of the report. Interpreted By: Alicia Hoskins MD Preliminary Report By: Kate Velasquez Electronically Signed By: Alicia Hoskins MD Dictated Date: 05/04/2018 5:13:36 PM Prelim Date: 05/04/2018 5:15:09 PM Sign Date: 05/05/2018 1:09:25 PM APTT Collected: 05/04/2018 Status: F Source: [facility] 11:30 AM [facility] REPOSITORY TYPE CODE TESTS RESULT OUT OF REFERENCE UNITS RANGE LAB PDOSE(LOIN C) Heparin dose Heparin IV (APTT) LAB APTT0(LOIN 25.0-35.0 seconds C) High APTT 49.9 Result Comment: For Heparin anticoagulation therapy, the recommended therapeutic range is: 54-77 seconds (APTT Correlation with Anti-Xa therapeutic range of 0.3-0.7 units/ml). PLEASE REFERENCE THE PHARMACY PROTOCOL FOR DOSING. Performed By: #### APTT #### [place] [address] TROPI Collected: 05/04/2018 Status: F Source: [facility] 11:30 AM [facility] REPOSITORY TYPE CODE TESTS RESULT OUT OF REFERENCE UNITS RANGE LAB TROPI(LOINC 0.000-0.040 ng/mL ) Troponin I <0.015 Result Comment: Troponin I reference ranges (05/19/14): 0.00-0.040 ng/mL Negative and non-diagnostic. >0.040 ng/mL Consistent with cardiac damage, increased clinical risk and possibility of myocardial infarction. Serial measurements, a rise & fall in test results, clinical history, appropriate symptoms and/or ECG changes may help assess possibility of SD. *Other non-acute coronary syndrome conditions such as CHF, myocarditis, pulmonary emboli, sepsis and cardiac surgery could result in myocardial damage and increased troponin levels. Performed By: #### TROPI #### [place] [address] TSH Collected: 05/04/2018 Status: F Source: [facility] 11:30 AM [facility] REPOSITORY TYPE CODE TESTS RESULT OUT OF RANGE REFERENCE UNITS LAB TSH(LOINC) 0.360-3.740 mcIU/mL TSH 0.930 Result Comment: Please note as of 03/25/17 new pediatric reference intervals were added for this test. Performed By: #### TSH #### [place] [id number] CBC Collected: 05/04/2018 Status: F Source: [facility] 3:17 AM [facility] REPOSITORY TYPE CODE TESTS RESULT OUT OF REFERENCE UNITS RANGE LAB WBC(LOINC) 4.50-10.80 10 3/mcL High WBC 15.70 LAB RBCCT(LOINC 4.50-6.00 10 6/mcL ) Low RBC 4.46 LAB HGB(LOINC) 13.0-17.5 G/dL Low Hgb 10.5 LAB HCT(LOINC) 40.0-52.0 % Low Hct 32.0 LAB MCV(LOINC) 81.0-100.0 fL Low MCV 71.8 LAB MCH(LOINC) 27.0-33.0 pg Low MCH 23.6 LAB MCHC(LOINC) 32.0-36.0 G/dL MCHC 32.9 LAB RDW(LOINC) 11.5-15.5 % High RDW 19.5 LAB PLT(LOINC) 150-450 10 3/mcL Platelet 222 LAB MPV(LOINC) 6.4-10.5 fL MPV 7.3 Performed By: #### CBCYARED ANEU #### [address] [address] .AUTO DIFF Collected: 05/04/2018 Status: F Source: [facility] [facility] 3:17 AM [facility] REPOSITORY TYPE CODE TESTS RESULT OUT OF REFERENCE UNITS RANGE LAB HELDER(LOINC) 50.0-75.0 % High Neutrophil % 90.1 LAB LYM(LOINC) 20.0-40.0 % Low Lymphocyte % 4.6 LAB MON(LOINC) 2.0-13.0 % Monocyte % 4.8 LAB EO(LOINC) 0.0-6.0 % Eosinophil % 0.1 LAB BAS(LOINC) 0.0-2.5 % Basophil % 0.4 LAB ABLYM(LOIN 0.90-4.32 10 3/mcL C) Low Lymphocyte, 0.70 Absolute LAB JONATHAN(LOINC 0.09-1.40 10 3/mcL ) Monocyte, 0.80 Absolute LAB AEOS(LOINC 0.00-0.65 10 3/mcL ) Eosinophil, 0.00 Absolute LAB ABAS(LOINC 0.00-0.27 10 3/mcL ) Basophil, 0.10 Absolute Performed By: #### CBCYARED, ANEU #### [address] [address] .NEUABS Collected: 05/04/2018 Status: F Source: [facility] 3:17 AM [facility] REPOSITORY TYPE CODE TESTS RESULT OUT OF REFERENCE UNITS RANGE LAB ANEU(LOINC) 2.25-8.10 10 3/mcL High Neutrophil, 14.10 Absolute Performed By: #### CBC, ADIFF, ANEU #### [address] [address] APTT Collected: 05/04/2018 Status: F Source: [facility] 3:17 AM [facility] REPOSITORY TYPE CODE TESTS RESULT OUT OF REFERENCE UNITS RANGE LAB PDOSE(LOIN C) Heparin dose Heparin IV (APTT) LAB APTT0(LOIN 25.0-35.0 seconds C) High APTT 40.8 Result Comment: For Heparin anticoagulation therapy, the recommended therapeutic range is: 54-77 seconds (APTT Correlation with Anti-Xa therapeutic range of 0.3-0.7 units/ml). PLEASE REFERENCE THE PHARMACY PROTOCOL FOR DOSING. Performed By: #### APTT #### [address] [address] DIMER Collected: 05/03/2018 Status: F [facility]10 PM [facility] REPOSITORY TYPE CODE TESTS RESULT OUT OF RANGE REFERENCE UNITS LAB DIMER(LOINC 0-230 ng/mL D-DU ) High D-Dimer 445 Result Comment: Results reported in D- DU ng/ml. Positive for D-dimer. A positive D-dimer may occur in the following: DVT, PE, DIC, Trauma, Cancer, Sepsis, , Rheumatoid arthritis, Myocardial infarction and Cirrhosis. Note: Not affected by Rheumatoid Factor <=1400 IU/mL The result of the D-Dimer test should be evaluated in the context of all the clinical and laboratory data available. In those instances where the laboratory result does not agree with the clinical evaluation, additional tests should be performed accordingly. Performed By: #### DIMER #### [address] [address] CBC Collected: 05/03/2018 Status: F [facility]: [facility] 8:09 PM [facility] REPOSITORY TYPE CODE TESTS RESULT OUT OF REFERENCE UNITS RANGE LAB WBC(LOINC) 4.50-10.80 10 3/mcL High WBC 21.70 LAB RBCCT(LOINC 4.50-6.00 10 6/mcL ) RBC 4.52 LAB HGB(LOINC) 13.0-17.5 G/dL Low Hgb 10.6 LAB HCT(LOINC) 40.0-52.0 % Low Hct 32.2 LAB MCV(LOINC) 81.0-100.0 fL Low MCV 71.1 LAB MCH(LOINC) 27.0-33.0 pg Low MCH 23.5 LAB MCHC(LOINC) 32.0-36.0 G/dL MCHC 33.0 LAB RDW(LOINC) 11.5-15.5 % High RDW 19.2 LAB PLT(LOINC) 150-450 10 3/mcL Platelet 248 LAB MPV(LOINC) 6.4-10.5 fL MPV 7.8 Performed By: #### CBC, APTT, DIFF, MORPH #### [address] [address] APTT Collected: 05/03/2018 Status: F Source: [facility] 8:09 [facility] REPOSITORY TYPE CODE TESTS RESULT OUT OF REFERENCE UNITS RANGE LAB PDOSE(LOIN C) Heparin dose Unknown (APTT) LAB APTT0(LOIN 25.0-35.0 seconds C) APTT 34.8 Result Comment: For Heparin anticoagulation therapy, the recommended therapeutic range is: 54-77 seconds (APTT Correlation with Anti-Xa therapeutic range of 0.3-0.7 units/ml). PLEASE REFERENCE THE PHARMACY PROTOCOL FOR DOSING. Performed By: #### CBC, APTT, DIFF, MORPH #### [address] [address] .MANUAL DIFF Collected: 05/03/2018 Status: F Source: [facility] 8:09 [facility] REPOSITORY TYPE CODE TESTS RESULT OUT OF REFERENCE UNITS RANGE LAB LIMIT(LOIN C) Cells Counted 100 LAB NEUM(LOINC 50.0-75.0 % ) High Neutrophil %, 94.0 Manual LAB LYMM(LOINC 20.0-40.0 % ) Low Lymphocyte %, 3.0 Manual LAB MONM(LOINC 2.0-13.0 % ) Monocyte %, Manual 3.0 LAB EOM(LOINC) 0.0-6.0 % Eosinophil %, 0.0 Manual LAB BASM(LOINC 0.0-2.5 % ) Basophil %, Manual 0.0 LAB ANEUM(LOIN 2.25-8.10 10 3/mcL C) High Neutrophil, Abs 20.40 Manual LAB ABLYMM(VINCE 0.90-4.32 10 3/mcL NC) Low Lymphocyte, Abs 0.65 Manual LAB AMONM(LOIN 0.09-1.40 10 3/mcL C) Monocyte, Abs 0.65 Manual LAB AEOSM(LOIN 0.00-0.65 10 3/mcL C) Eosinophil, Abs 0.00 Manual LAB ABASM(LOIN 0.00-0.27 10 3/mcL C) Basophil, Abs 0.00 Manual Performed By: #### CBC, APTT, DIFF, MORPH #### [place] [address] .MORPH Collected: 05/03/2018 Status: F Source: [facility] 8:09 PM [facility] REPOSITORY TYPE CODE TESTS RESULT OUT OF REFERENCE UNITS RANGE LAB PLTE(LOINC ) Platelet Estimate Normal LAB ANIS(LOINC ) Anisocytosis Slight LAB MICYT(LOIN C) Microcytosis Slight LAB HJB(LOINC) [place] Bodies Few Performed By: #### CBC, APTT, DIFF, MORPH #### [place] [address] LAC Collected: 05/03/2018 Status: F Source: [facility] 5:23 PM [facility] REPOSITORY TYPE CODE TESTS RESULT OUT OF REFERENCE UNITS RANGE LAB LAC(LOINC) 0.2-2.0 mmol/L Lactic Acid 1.4 Lvl Performed By: #### LAC #### [place] [address] CBC Collected: 05/03/2018 Status: C Source: [facility] 5:23 [facility] REPOSITORY TYPE CODE TESTS RESULT OUT OF REFERENCE UNITS RANGE LAB WBC(LOINC) 4.50-10.80 10 3/mcL High WBC 23.50 LAB RBCCT(LOINC 4.50-6.00 10 6/mcL ) RBC 4.67 LAB HGB(LOINC) 13.0-17.5 G/dL Low Hgb 11.0 LAB HCT(LOINC) 40.0-52.0 % Low Hct 33.4 LAB MCV(LOINC) 81.0-100.0 fL Low MCV 71.5 LAB MCH(LOINC) 27.0-33.0 pg Low MCH 23.5 LAB MCHC(LOINC) 32.0-36.0 G/dL MCHC 32.8 LAB RDW(LOINC) 11.5-15.5 % High RDW 19.4 LAB PLT(LOINC) 150-450 10 3/mcL Platelet 262 LAB MPV(LOINC) 6.4-10.5 fL MPV 7.3 Performed By: #### CBC, TROPI, CMP, PBNP, GFR, DIFF, MORPH #### [address] [address] TROPI Collected: 05/03/2018 Status: F Source: [facility] 5:23 [facility] REPOSITORY TYPE CODE TESTS RESULT OUT OF REFERENCE UNITS RANGE LAB TROPI(LOINC 0.000-0.040 ng/mL ) Troponin I 0.018 Result Comment: Troponin I reference ranges (05/19/14): 0.00-0.040 ng/mL Negative and non-diagnostic. >0.040 ng/mL Consistent with cardiac damage, increased clinical risk and possibility of myocardial infarction. Serial measurements, a rise & fall in test results, clinical history, appropriate symptoms and/or ECG changes may help assess possibility of SD. *Other non-acute coronary syndrome conditions such as CHF, myocarditis, pulmonary emboli, sepsis and cardiac surgery could result in myocardial damage and increased troponin levels. Performed By: #### CBC, TROPI, CMP, PBNP, GFR, DIFF, MORPH #### [address] [address] CMP Collected: 05/03/2018 Status: F Source: [facility] 5:23 [facility] REPOSITORY TYPE CODE TESTS RESULT OUT OF REFERENCE UNITS RANGE LAB GLU(LOINC) 70-110 mg/dL Glucose Level 97 LAB NA(LOINC) 136-145 mEq/L Sodium Level 138 LAB K(LOINC) 3.5-5.0 mEq/L Potassium Level 3.9 LAB CL(LOINC) 98-110 mEq/L Chloride 102 LAB CO2(LOINC) 22-32 mEq/L CO2 27 LAB EBAL(LOINC 4.0-15.0 mEq/L ) Electrolyte Balance 9.0 LAB BUN(LOINC) 8.0-22.0 mg/dL BUN 20.0 LAB CRE(LOINC) 0.60-1.40 mg/dL Creatinine Lvl (s) 1.20 LAB BC(LOINC) 10.0-22.0 ratio BUN/Creatinine 16.7 Ratio LAB CA(LOINC) 8.4-10.1 mg/dL Calcium Lvl 8.4 LAB PROT(LOINC 6.0-8.5 G/dL ) Total Protein 8.1 LAB ALB(LOINC) 3.2-4.8 G/dL Low Albumin Level 2.9 LAB GLB(LOINC) 1.5-3.8 G/dL Globulin High 5.2 LAB AG(LOINC) 0.9-1.6 ratio Low A/G Ratio 0.6 LAB BILT(LOINC 0.2-1.2 mg/dL ) Bili Total High 1.3 LAB AP(LOINC) 38-126 U/L Alk Phos 82 LAB AST(LOINC) 8-34 U/L AST/SGOT 15 LAB ALT(LOINC) 12-55 U/L ALT/SGPT 20 Performed By: #### CBC, TROPI, CMP, PBNP, GFR, DIFF, MORPH #### [address] [address] PBNP Collected: 05/03/2018 Status: F Source: [facility] 5:23 [facility] REPOSITORY TYPE CODE TESTS RESULT OUT OF REFERENCE UNITS RANGE LAB PBNP(LOINC) 0-450 pg/mL High N-Terminal 2936 proBNP Result Comment: NT-proBNP results of less than 300 pg/mL effectively rules out acute congestive heart failure with 99% negative predictive value. Performed By: #### CBC, TROPI, CMP, PBNP, GFR, DIFF, MORPH #### [address] [address] .GFR Collected: 05/03/2018 Status: F Source: [facility] 5:23 PM [facility] REPOSITORY TYPE CODE TESTS RESULT OUT OF REFERENCE UNITS RANGE LAB GFRAA(LOINC ml/min/1.73 ) sqm GFR >60 Spanish Result Comment: GFR Population mean for , Non- Americans Ages 20-29 = 116 mL/min/1.73 sq.m. Ages 30-39 = 107 mL/min/1.73 sq.m. Ages 40-49 = 99 mL/min/1.73 sq.m. Ages 50-59 = 93 mL/min/1.73 sq.m. Ages 60-69 = 85 mL/min/1.73 sq.m. Ages 70+ = 75 mL/min/1.73 sq.m. Chronic Kidney Disease: Less than 60 mL/min/1.73 square meters End Stage Renal Disease: Less than 15 mL/min/1.73 square meters LAB GFRNO(LOINC) ml/min/1.73sqm GFR Non- >60 Result Comment: GFR Population mean for , Non- Americans Ages 20-29 = 116 mL/min/1.73 sq.m. Ages 30-39 = 107 mL/min/1.73 sq.m. Ages 40-49 = 99 mL/min/1.73 sq.m. Ages 50-59 = 93 mL/min/1.73 sq.m. Ages 60-69 = 85 mL/min/1.73 sq.m. Ages 70+ = 75 mL/min/1.73 sq.m. Chronic Kidney Disease: Less than 60 mL/min/1.73 square meters End Stage Renal Disease: Less than 15 mL/min/1.73 square meters Performed By: #### CBC, TROPI, CMP, PBNP, GFR, DIFF, MORPH #### [place] [address] .MANUAL DIFF Collected: 05/03/2018 Status: F Source: [facility] 5:23 PM [facility] REPOSITORY TYPE CODE TESTS RESULT OUT OF REFERENCE UNITS RANGE LAB LIMIT(LOIN C) Cells Counted 100 LAB NEUM(LOINC 50.0-75.0 % ) High Neutrophil %, 91.0 Manual LAB LYMM(LOINC 20.0-40.0 % ) Low Lymphocyte %, 4.0 Manual LAB MONM(LOINC 2.0-13.0 % ) Monocyte %, Manual 4.0 LAB EOM(LOINC) 0.0-6.0 % Eosinophil %, 0.0 Manual LAB BASM(LOINC 0.0-2.5 % ) Basophil %, Manual 1.0 LAB ANEUM(LOIN 2.25-8.10 10 3/mcL C) High Neutrophil, Abs 21.57 Manual LAB ABLYMM(VINCE 0.90-4.32 10 3/mcL NC) Lymphocyte, Abs 0.94 Manual LAB AMONM(LOIN 0.09-1.40 10 3/mcL C) Monocyte, Abs 0.94 Manual LAB AEOSM(LOIN 0.00-0.65 10 3/mcL C) Eosinophil, Abs 0.00 Manual LAB ABASM(LOIN 0.00-0.27 10 3/mcL C) Basophil, Abs 0.23 Manual Performed By: #### CBC, TROPI, CMP, PBNP, GFR, DIFF, MORPH #### [address] [address] .MORPH Collected: 05/03/2018 Status: F Source: [facility] 5:23 PM [facility] REPOSITORY TYPE CODE TESTS RESULT OUT OF REFERENCE UNITS RANGE LAB PLTE(LOINC ) Platelet Estimate Normal LAB ANIS(LOINC ) Anisocytosis Slight LAB POIK(LOINC ) Poik Slight LAB MICYT(LOIN C) Microcytosis Moderate LAB OVAL(LOINC ) Ovalocytes Few Performed By: #### CBC, TROPI, CMP, PBNP, GFR, DIFF, MORPH #### [place] [address] Observed: 05/03/2018 Status: F Source: [facility] 5:23 PM [facility] REPOSITORY . MICRO - Microbiology PROCEDURE: Blood Culture (bacterial) [*1] SOURCE: Blood BODY SITE: COLLECTED DATE/TIME: 05/03/2018 17:23 EDT RECEIVED DATE/TIME: 05/03/2018 18:21 EDT START DATE/TIME: 05/03/2018 18:22 EDT FREE TEXT SOURCE: FINAL REPORTS Final Report [] Verified Date/Time/Personnel: 05/08/2018 18:59 EDT Blood Culture: No Growth at 5 days. PRELIMINARY REPORTS Preliminary Report [] Verified Date/Time/Personnel: 05/03/2018 18:59 EDT Culture has been received in lab and is no growth to date. Routine cultures are held for 5 days. Performing Locations *1: This test was performed at: [facility], [address] [place] [address], [facility]- , [facility] Performed By: #### CBL #### [place] [address] XR CHEST 1 VIEW Observed: 05/03/2018 Status: F Source: [facility] 5:15 PM [facility] REPOSITORY ORIGINAL XR CHEST 1 VIEW CLINICAL STATEMENT: chest pain. COMPARISON: None FINDINGS: The study is of suboptimal technical quality given lordotic positioning, low lung volumes, and patient motion. The heart is borderline in size. There is no significant pulmonary vascular congestion.. Th ere is no dense consolidation, large pleural effusion, or appreciable pneumothorax. No displaced fracture. IMPRESSION: Technically suboptimal examination showing no definite acute radiographic abnormality. Borderline cardiomegaly. I have personally reviewed the images of this examination and agree with the resident's findings and interpretation. Interpreted By: Zenaida Dawn MD Preliminary Report By: Neto Sharpe MD Electronically Signed By: Zenaida Dawn MD Dictated Date: 05/03/2018 5:53:20 PM Prelim Date: 05/03/2018 5:55:04 PM Sign Date: 05/03/2018 6:27:19 PM INTERNAL MEDICINE Observed: 02/28/2018 Status: F Source: [facility] [place] OFFICE VISIT 5:02 PM [facility] [address] [place] [address] OFFICE VISIT Date of Service: 02/28/18 MR#: [id number] Acct: [id number] Name: HOMERO BOBBY Rep #: [id number] : 1975 Provider: Nona Johnson MD Age/Sex: 42/M Location: [facility] Status: Signed Intake Vital Signs02/28/18 Height 6 ft 7 in 02/28/18 Blood Pressure 165/89 02/28/18 Blood Pressure Location Rt brachial Intake Visit Reasons: NEW WOUND, REQ YENIFER Chief Complaint: New wound Lower Left leg Is patient in pain?: Yes (legs) Pain scale (1-10): 7 Allergies Penicillins Allergy (Verified 02/28/18 14:20) Unknown Medications ALPRAZolam [Xanax] 0.125 mg PO TID PRN PRN 11/02/17 [History Confirmed 02/28/18] Furosemide [Lasix] mg PO DAILY 11/02/17 [History Confirmed 02/28/18] Hydrocodone Bitart/Apap 5-325 [[place] 5MG-325MG] 1 tab PO Q6H PRN PRN 11/02/17 [History Confirmed 02/28/18] Meloxicam [Mobic] mg PO 11/02/17 [History Confirmed 02/28/18] Omeprazole [Prilosec] 20 mg PO DAILY 11/02/17 [History Confirmed 02/28/18] cholecalciferol (vitamin D3) 50,000 unit capsule 50,000 unit PO QWEEK 02/28/18 [History Confirmed 02/28/18] lisinopril 10 mg tablet 10 mg PO QDAY #30 tab 02/28/18 [Rx Confirmed 02/28/18] sertraline 100 mg tablet 150 mg PO QDAY #180 tab 02/28/18 [Rx Confirmed 02/28/18] Nurse's Note: Would like to have some home care during the day, frequent falls PFSH Medical History Osteoarthritis (Chronic) emphysema (Chronic) Arthritis (Chronic) Family History Father Myocardial infarction Hypertension Heart disease Arthritis Cancer Leukemia Social History Smoking Status: Never smoker how long ago did patient quit smokin years ago 2007 HPI HPI Chief Complaint: New wound Lower Left leg Details: HOMERO BOBBY, is a 42yo M who presents to the office today for follow up and for new left lower extremity wound. He has a history of recurrent lower extremity wounds secondary to chronic venous insufficiency. ROS Const Constitutional: Positive for frequent falls; no chills, fatigue, fever(s), malaise, weakness, sleep problems or change in appetite Eyes Eyes: No blurry vision, change in vision, double vision, discharge or visual disturbances ENT ENT: No abnormal hearing, ear pain, ear pressure, tinnitus or dizziness/vertigo Resp Respiratory: No cough, shortness of breath or wheezing Cardio Cardiology: Positive for dyspnea on exertion; no chest pain at rest, chest pain with exertion, shortness of breath, generalized swelling, irregular heart rhythm, lightheadedness, orthopnea, fast heart rate or palpitations Gastro GI: No abdominal pain, change in bowel habits, constipation, diarrhea, nausea/dyspepsia or vomiting Genitourinary Male: No difficulty urinating, burning urination, painful urination, urinary incontinence, urinary frequency, urinary urgency, urinary hesitancy, urinary retention, blood in urine, Frequent nighttime urination/ nocturia, sexual problems, testicle lump or testicle pain Musc Musculoskeletal: No joint pain, back pain, joint swelling, limited range of motion, numbness or tingling Skin Skin: Positive for wounds (Lower left leg - open); no change in skin color, itching or rash Breast Breast: No breast lump or breast pain Neuro Neurology: Positive for frequent falls and unsteady gait/balance; no weakness, abnormal hearing, numbness, tingling, dizziness, loss of vision, memory loss or visual disturbances Psych Psychiatric: No memory loss, No anxiety, No change in appetite, No depression, No Thoughts of harming yourself/Others Endo Endocrine: No fatigue, heat intolerance, increased thirst/drinking, increased hunger or increased urination Aller/Imm Allergy/Immunologic: No wheezing, itchy eyes or seasonal allergy symptoms Isacc/Lymp Hematologic/Lymphatic: No easy bleeding, easy bruising or enlarged lymph nodes Exam Const General: no acute distress Nutritional Appearance: obese Orientation: alert, awake, oriented x3 HENMT Head: atraumatic, normocephalic Ears: hearing grossly normal bilaterally Resp Auscultation: Bilateral: Clear to Auscultation Cardio Rate: regular rate Rhythm: regular rhythm Heart Sounds: S1 normal, S2 normal GI Inspection: obesity Other: Non tender. Skin Other: approx 0.8 x 0.6 x 0.2cm Ulcer noted in the left posterior leg. No discharge appreciated. Neuro General: alert, awake, oriented x3, moves all extremities, CN's II-XI intact bilaterally Extrem Other: Bilateral lower extremity swelling extending up only to the thighs. Nonpitting. ` Psych Appearance: grossly normal Affect: sad Speech and Movement: speech and movement normal Attitude: cooperative Thought Process: normal Assessment AND Plan 1. Ulcer of left lower extremity, limited to breakdown of skin L97.921 Plan Secondary to chronic venous insufficiency. Following up with the Lymphedema clinic at [place] has his compression however, is awaiting fitting. Apply aquacel extra with adaptic over top. Change every third day. 3M wraps for now. is an PET[employer]GR[employer]HY TE[employer] and says she can do this. Follow up in 3 weeks. 2. Hypertension I10 Plan Poorly controlled. Not using diuretic as recommended. Will start Lisinopril 10mg daily. BMP in 3 weeks. 3. Depression with anxiety F41.8 Plan Still not optimal Increase Zoloft to 150mg daily. 4. Super obesity E66.9 Plan Possible Bariatric surgery in April. Due to significant obesity, patient is not able to carry out his activities of daily living and need home health. Referral given. Continue follow up with Bariatric program Plan Detail Other Orders Referrals: Other Medications New: Changed: Follow Up 3 Weeks Coding Level of Care Code Off vis,est,level 4 Diagnoses Ulcer of left lower extremity, limited to breakdown of skin L97.921 Non-pressure ulcer stage: limited to breakdown of skin Hypertension I10 Depression with anxiety F41.8 Super obesity E66.9 02/28/18 1702 <Electronically signed by Nona Johnson MD> Date Nona Johnson MD Cosigner Signature: Date (if applicable) CC: COMP METABOLIC PANEL Collected: 01/04/2018 Status: F Source: [facility] 1:18 PM SYSTEM REPOSITORY TYPE CODE TESTS RESULT OUT OF REFERENCE UNITS RANGE LAB CA3 8.4-10.2 mg/dL Calcium 9.2 LAB CO23 22-30 mmol/L Carbon Dioxide 26 LAB ANIN3 Anion Gap 15 LAB ALKP3 38-126 U/L Alkaline Phosphatase 119 LAB ALT3 13-69 U/L ALT (SGPT) 35 LAB AST3 15-46 U/L AST (SGOT) 26 LAB NA3 137-145 mmol/L Sodium 142 LAB K3 3.5-5.1 mmol/L Potassium 4.5 LAB CL3 98-107 mmol/L Chloride 101 LAB GLUC3 70-100 mg/dL Glucose 82 LAB BUN3 7-20 mg/dL Urea Nitrogen 14 LAB CRET3 0.52-1.25 mg/dL Creatinine 0.81 LAB GF3BR >60 mL/min eGFR >60.0 LAB GF3WR >60 mL/min eGFR OTHER >60.0 Result Comment: Source- MDRD equation with creatinine calibration to IDMS(NKDEP) eGFR not recommended for drug dose adjustment LAB ALB3 3.5-5.0 g/dL Albumin, Serum 4.2 LAB TP3 6.3-8.2 g/dL Total High Protein 8.6 LAB BILT3 0.2-1.3 mg/dL Bilirubin,Total 0.6 Performed By: #### CMP3, MG3, IRON3, TSH4, FERR3, B12, LIPD2, FOLT3 #### The performing lab is in the report. MAGNESIUM Collected: 01/04/2018 Status: F Source: [facility] 1:18 PM SYSTEM REPOSITORY TYPE CODE TESTS RESULT OUT OF REFERENCE UNITS RANGE LAB MG3 1.6-2.3 mg/dL Magnesium 2.0 Performed By: #### CMP3, MG3, IRON3, TSH4, FERR3, B12, LIPD2, FOLT3 #### The performing lab is in the report. IRON, TOTAL Collected: 01/04/2018 Status: F Source: [facility] 1:18 PM SYSTEM REPOSITORY TYPE CODE TESTS RESULT OUT OF RANGE REFERENCE UNITS LAB IRON3 49-181 ug/dL Iron, 50 Total Performed By: #### CMP3, MG3, IRON3, TSH4, FERR3, B12, LIPD2, FOLT3 #### The performing lab is in the report. THYROID STIM. Collected: 01/04/2018 Status: F Source: [facility] HORMONE 1:18 PM SYSTEM REPOSITORY TYPE CODE TESTS RESULT OUT OF REFERENCE UNITS RANGE LAB TSH4 0.465-4.680 uU/mL Thyroid Stim. 1.600 Hormone Performed By: #### CMP3, MG3, IRON3, TSH4, FERR3, B12, LIPD2, FOLT3 #### The performing lab is in the report. FERRITIN Collected: 01/04/2018 Status: F Source: [facility] 1:18 PM SYSTEM REPOSITORY TYPE CODE TESTS RESULT OUT OF REFERENCE UNITS RANGE LAB 3FERR 18-464 ng/mL Ferritin 98 Performed By: #### CMP3, MG3, IRON3, TSH4, FERR3, B12, LIPD2, FOLT3 #### The performing lab is in the report. VITAMIN B12 Collected: 01/04/2018 Status: F Source: [facility] 1:18 PM SYSTEM REPOSITORY TYPE CODE TESTS RESULT OUT OF REFERENCE UNITS RANGE LAB B12 239-931 pg/mL Vitamin B12 470 Performed By: #### CMP3, MG3, IRON3, TSH4, FERR3, B12, LIPD2, FOLT3 #### The performing lab is in the report. LIPID PANEL Collected: 01/04/2018 Status: F Source: [facility] 1:18 PM SYSTEM REPOSITORY TYPE CODE TESTS RESULT OUT OF RANGE REFERENCE UNITS LAB 3CHOL < 200 mg/dL Cholesterol Abnormal 200 LAB 3TRIG <150 mg/dL Triglyceride 112 LAB HDLC 40-60 mg/dL Low HDL Cholesterol 30 LAB LDL4 <100 mg/dL Low Density Abnormal Lipoprotein 148 LAB CHLHD Chol/HDL 7 Result Comment: Ref Range: < 3 Low Risk for CHD 3-6 Mod Risk for CHD > 6 High Risk for CHD Performed By: #### CMP3, MG3, IRON3, TSH4, FERR3, B12, LIPD2, FOLT3 #### The performing lab is in the report. FOLATE Collected: 01/04/2018 Status: F Source: [facility] 1:18 PM SYSTEM REPOSITORY TYPE CODE TESTS RESULT OUT OF REFERENCE UNITS RANGE LAB 3FOLT 2.8-20.0 ng/mL Folate 8.7 Performed By: #### CMP3, MG3, IRON3, TSH4, FERR3, B12, LIPD2, FOLT3 #### The performing lab is in the report. VITAMIN B1,WHOLE Collected: 01/04/2018 Status: F Source: [facility] BLOOD 1:18 PM SYSTEM REPOSITORY TYPE CODE TESTS RESULT OUT OF REFERENCE UNITS RANGE LAB WBB1R 70-180 nmol/L Vitamin 135 B1,Whole Blood Result Comment: INTERPRETIVE INFORMATION: Vitamin B1, Whole Blood This assay measures the concentration of thiamine diphosphate (TDP), the primary active form of vitamin B1. Approximately 90 percent of vitamin B1 present in whole blood is TDP. Thiamine and thiamine monophosphate, which comprise the remaining 10 percent, are not measured. Test developed and characteristics determined by [facility]. See Compliance Statement B: [facility] Performed by [facility], [address] [place] [id number] [email or web address], Ronald Diego MD - Lab. Director Performed By: #### [id number] #### The performing lab is in the report. PF FULL PFT STUDY Observed: 12/28/2017 Status: F Source: [facility] W/ PRE AND POST 4:25 PM SYSTEM REPOSITORY Patient Name: HOMERO BOBBY Pulmonary Function Exam Date/Time 12/27/2017 13:16:38 EDT Exam PF Full PFT Study w/ Pre and Post Ordering Physician ALEX BOSTON ANGEL M Accession Number [id number] Reason For Exam Shortness of breath Report Diffusion capacity 67 percent predicted. Total lung capacity 195 percent predicted, 18 L. There is evidence of severe air trapping. Vital capacity 3.9 L 58 percent predicted. FEV1 is 3.3 L, 62 percent predicted. FEV1 FVC ratio is 84 percent. Flow volume loop is normal. Impression no evidence of large airways obstruction. Borderline low diffusion capacity Report Dictated on Final Dictated: 12/28/2017 4:25 pm Dictating Physician: MD ULRICH PAUL Signed Date and Time: 12/28/2017 4:30 pm Signed by: MD ULRICH PAUL Transcribed Date and Time: 12/28/2017 4:25 OT GENERAL EVALUATION Observed: 12/15/2017 Status: F Source: [facility] 7:49 AM [facility] [address] [place] [address] Fax REHABILITATION SERVICES INITIAL EVALUATION MR#: [id number] Acct: [id number] Name: HOMERO BOBBY Rep #: [id number] : 1975 42 From: Haydee MONTAÑO [facility] Referring Dr.: Nona Johnson MD Status: REG RCR Insurance: [facility] Eval Date: SELF PAY INSURANCE Patient's Visit Information HOMERO BOBBY is a 42 year old M, referred to Occupational Therapy by Nona Johnson MD,, with a diagnosis of LE lymphedema. Date of Evaluation: 12/12/17 Occupational Therapist: PASCALE Broderick/Chelsea, CHT - Subjective Subjective: Pt states it has been awhile from when he has had a compression socks- pt states he was seen at the wound center for 3M wraps- pt states he was dx with CHF in his 30s and this is when he started with the lymphedema- pt states he was working with [facility] in the past- but has not had a new set of socks for over a year- pt states at this time he is working. pt states no hx of lymphedema in his family- Pt states his and daughter are RNs and can assist him with wraps to his LE. - Pain left LE 5 Pain Intensity Range: 3, 8 right LE 5 Pain Intensity Range: 1, 3, 8 - Objective Objective/Observation: pt amb with one crutch- demo with pendulum belly- hips externally rotated- with short shuffle steps- pt amb short distance and would stop for a break- - Lymphedema (Circumferential Measure) Ankle: right 50cm left 55cm Lower calf: right 47cm 60cm Largest calf: right 78cm 80cm Below knee: right 76 cm 73cm Above knee: right 100cm 91cm Mid-thigh: right 137 left 127cm - Lower Limb Functional Index Lower Extremity Functional Score: 11 - Rehabilitation General Assessment: Pt demo with multiple large skin folds and masses. Dry thickened skin with pebbly appearence -pitted and darkened- right LE without compression and left with 3M wrap- with appearence of LE size qustioning elephantitis/lymphedema. Pt demo a need for compression 40-50mmHg to assist in mtg of LE limb size- The 3M does not produce enough compression to be effective for pt at this time. pt will need increased compression by alternative compression garments- pt was given compression print out of alternative compression devices - advised to contact his insurance company to see where he needs to order DME from. Pt demo understanding. Pt was advised that it was possible insurance would not cover the garments and it was in his best interest in order to mtg his condition to purchase the garment alternative himself. Pt demo understanding. I expressed to pt that [facility] is not a DME supplier and are not able to bill his insurance or purchase the rec'd compression devices. pt demo understanding that he would need to contact his insurance company. Once pt is able to purchase the compression devices pt to return with family to ensure proper donning/doffing of garments. Due to pts condition he may need skilled facility that would work daily with his lymphedema and use of lymphadema pumps. Rehabilitation Potential: Questionable - Anticipated Interventions Anticipated Interventions: Education re assistive Equipment, Education re Diagnosis, Education re Life-long lymphedema Management, Education re Correct Donning Tech,Care AND Wearing Sched Comp Garments, Caregiver Training - Visit Plan General Plan: Pt demo with multiple large skin folds and masses. Dry thickened skin with pebbly appearence -pitted and darkened- right LE without compression and left with 3M wrap- with appearence of LE size qustioning elephantitis/lymphedema. Pt demo a need for compression 30-40/40-50mmHg to assist in mtg of LE limb size- The 3M does not produce enough compression to be effective for pt at this time. pt will need increased compression by alternative compression garments- pt was given compression print out of alternative compression devices - advised to contact his insurance company to see where he needs to order DME from. Pt demo understanding. Pt was advised that it was possible insurance would not cover the garments and it was in his best interest in order to mtg his condition to purchase the garment alternative himself. Pt demo understanding. I expressed to pt that [facility] is not a DME supplier and are not able to bill his insurance or purchase the rec'd compression devices. pt demo understanding that he would need to contact his insurance company. Once pt is able to purchase the compression devices pt to return with family to ensure proper donning/doffing of garments. TEXT: Thank you for the opportunity to evaluate your patient. For Medicare and Medicare HMO plans, please review the plan of care and approve it. It will need to be FAXED BACK to us at [phone] for Medicare purposes. Please let me know if there are questions or concerns regarding this plan of care. Physician Signature: Date: <Electronically signed by Haydee ASHRAF/CARLOS Tran> 12/15/17 0749 CC: Nona Johnson MD ASCENCION Signed For Medicare only, by signing this I certify the plan of care. Physicians Signature Date INTERNAL MEDICINE Observed: 12/06/2017 Status: F Source: [place] OFFICE VISIT 6:14 PM [facility] [address] [place] [address] [place] [address] OFFICE VISIT Date of Service: 12/05/17 MR#: [id number] Acct: [id number] Name: HOMERO BOBBY Rep #: [id number] : 1975 Provider: Nona Johnson MD Age/Sex: 42/M Location: [facility] Status: Signed Intake Vital Signs12/05/17 Height 6 ft 7 in 12/05/17 Weight: 640 lb 12/05/17 Body Mass Index (BMI) 72.1 12/05/17 Blood Pressure 152/79 Intake Visit Reasons: Establish care Chief Complaint: Establish Care Is patient in pain?: Yes (In legs) Pain scale (1-10): 1 Allergies Penicillins Allergy (Verified 12/05/17 15:45) Unknown Medications ALPRAZolam [Xanax] 0.125 mg PO TID PRN PRN 11/02/17 [History Confirmed 12/05/17] Furosemide [Lasix] mg PO DAILY 11/02/17 [History Confirmed 12/05/17] Hydrocodone Bitart/Apap 5-325 [[place] 5MG-325MG] 1 tab PO Q6H PRN PRN 11/02/17 [History Confirmed 12/05/17] Meloxicam [Mobic] mg PO 11/02/17 [History Confirmed 12/05/17] Omeprazole [Prilosec] 20 mg PO DAILY 11/02/17 [History Confirmed 12/05/17] sertraline 100 mg tablet 100 mg PO QDAY #90 tab 12/05/17 [Rx Confirmed 12/05/17] PFSH Medical History Osteoarthritis (Chronic) Heart failure (Chronic) Heart disease (Chronic) emphysema (Chronic) Emotional disorder (Chronic) Arthritis (Chronic) Family History Father Myocardial infarction Hypertension Heart disease Arthritis Cancer Leukemia Social History Smoking Status: Never smoker how long ago did patient quit smokin years ago 2006 HPI HPI Chief Complaint: Establish Care Details: HOMERO BOBBY, is a 42yo M who presents to the office today to establish care. He has a history of Congestive Heart Failure, Coronary artery disease, Peripheral neuropathy, Chronic Lymph edema and depression. He had previously followed up with Dr. Fierro of [facility] and has no acute complaints at this time. He follows up with me at the wound center for his chronic lymphedema. Patient now states that he has had evaluations by vein/vascular specialist in the past and per patient, no intervention was recommended until he has lost a significant amount of weight. He currently follows up with the bariatric program at the [facility]. He has done this for about 3 months and has 4 more months before surgery. Plan per patient this for a sleeve gastrectomy. He reports a history of congestive heart failure dating back several years. He cannot remember the last time he had an echo and believes it was several years ago. Due to his current body habitus, he is not very physically active. He has noted shortness of breath. He is also currently on sertraline 50 mg daily for depression. He however admits that his depression is not well controlled. Denies any suicidal ideations or attempts however he does admit to wanting to leave the house because he believes he is a burden to his family. ROS Const Constitutional: No anorexia, fever(s) or headache(s) Eyes Eyes: No eye pain or blurry vision ENT ENT: No abnormal hearing, dizziness/vertigo, nosebleed/epistaxis or headache(s) Resp Respiratory: No cough or chest congestion Cardio Cardiology: Positive for chest pain with exertion and shortness of breath Gastro GI: No abdominal pain or change in bowel habits Genitourinary Male: Positive for urinary frequency Musc Musculoskeletal: Positive for joint pain Neuro Neurology: No abnormal hearing, confusion or headache(s) Psych Psychiatric: No confusion, Positive for depression, Positive for anxiety Isacc/Lymp Hematologic/Lymphatic: No easy bleeding Exam Const General: no acute distress Nutritional Appearance: obese Orientation: alert, awake, oriented x3 HENMT Head: atraumatic, normocephalic Ears: hearing grossly normal bilaterally Resp Auscultation: Bilateral: Clear to Auscultation Cardio Rate: regular rate Rhythm: regular rhythm Heart Sounds: S1 normal, S2 normal GI Inspection: obesity Other: Non tender. Neuro General: alert, awake, oriented x3, moves all extremities, CN's II-XI intact bilaterally Extrem Other: Bilateral lower extremity swelling extending up only to the thighs. Nonpitting. ` Psych Appearance: grossly normal Affect: sad Speech and Movement: speech and movement normal Attitude: cooperative Thought Process: normal Assessment AND Plan 1. Super obesity E66.9 Plan Currently enrolled in the bariatric program at the [facility]. Patient states that he has lost about 30lbs so far. Plan per patient is for a sleeve gastrectomy in about 4-5 months. A1C ordered. Continue current management. Orders Orders: 2. CHF (congestive heart failure) I50.9 Plan Patient reports a long history of congestive heart failure. He cannot remember his last echo but believes it was several years ago. Currently on isosorbide and Lasix which he reports compliance with. Records requested from prior physician. 2D echo ordered. Referred to cardiology. Orders Orders: Referrals: 3. Depression with anxiety F41.8 Plan Chronic and not optimally controlled. Currently on Zoloft 50 mg daily, will increase to 100 mg daily. Follow-up in 6 weeks. 4. Chronic acquired lymphedema I89.0 Plan Follows up with the wound center. Also a complement of lipidemia. Has had a wrap on for over a week. He has missed his last appointments at the wound center. Patient encouraged to follow-up as recommended. Also encouraged to follow-up with the lymphedema clinic on 12 December. This note was generated with [employer] dictation software. It may contain incorrect words, spelling, and punctuation that were not noted in checking the note before signing. Plan Detail Other Orders Orders: Referrals: Other Medications New: Discontinued: Follow Up 1 Month Coding Level of Care Code Off vis,est,level 4 Diagnoses Super obesity E66.9 CHF (congestive heart failure) I50.9 Depression with anxiety F41.8 Chronic acquired lymphedema I89.0 12/06/174 <Electronically signed by Nona Johnson MD> Date Nona Johnson MD Cosigner Signature: Date (if applicable) CC: Observed: 11/09/2017 Status: F Source: [place] CULTURE, DEEP WOUND 9:30 AM [facility] REPOSITORY Comments: ULCER LLE Gram Stain Gram Stain 4+ Gram positive cocci 4+ Gram positive rods 4+ Gram negative rods No White Blood Cells Wound Culture #3 Gram positive em suggestive of a diptheroid. There are no CLSI standards for interpretation of this Drug/Organism combination. ORGANISM 1: Morganella morganii sp sibonii Amount Growth 3+ ORGANISM 2: Staphylococcus aureus ORGANISM 3: Gram positive em Amount Growth 3+ Morganella morganii sp sibonii: REACTION Amoxacillin/Clavulanic Acid $ >=32 R Ampicillin $ >=32 R Ampicillin/Sulbactam $ >=32 R Cefazolin $ >=64 R Cefepime $ <=1 S Ceftriaxone $ <=1 S Ciprofloxacin $ <=0.25 S Ertapenim $$$ <=0.5 S Gentamicin $ <=1 S Levofloxacin $ <=0.12 S Piperacillin/Tazobactam $$ <=4 S Tobramycin $ <=1 S Trimethoprim/Sulfametho $ <=20 S (NF) indicates non-formulary drug at [facility]. Approval by Infectious Disease Specialist required before non-formulary drugs may be ordered and/or dispensed. Staphylococcus aureus: REACTION Benzylpenicillin NF 0.12 R Cefoxitin *NF - Clindamycin $$ <=0.25 R Inducable Clindamycin Resistan + Erythromycin $ 4 R Gentamicin $ <=0.5 S Levofloxacin $ 0.25 S Linezolid $$$$ 2 S Moxifloxicin *NF <=0.25 S Oxacillin NF 0.5 S Tigecycline $$$$ <=0.12 S Rifampin $$ <=0.5 S Tetracycline NF <=1 S Trimethoprim/Sulfametho $ <=10 S Vancomycin $ 1 S (NF) indicates non-formulary drug at [facility]. Approval by Infectious Disease Specialist required before non-formulary drugs may be ordered and/or dispensed. * CLSI guidelines does not recommend testing of cephalosporins. This interpretation is deduced from Beta-lactam/penicillin results. Cult, Anaerobic Studies have confirmed that Anaerobic Gram Positive Cocci are routinely susceptible to: Penicillin/Ampicillin, Ampicillin/Sulbactam, Piperacillin/Tazobactam, Cefoxatin, Ertapenem, Imipenem, Meropenem and Metronidazole and vary in resistance to: Clindamycin and Moxifloxacin. ORGANISM 1: Anaerobic cocci Performed By: #### M100.1500 #### [facility] [place], [address] Observed: 11/09/2017 Status: F Source: [place] RENE, FUNGUS [id number] 9:30 AM [facility] ,[id number] TESTING PERFORMED AT [facility]. ORIGINAL REPORT ON FILE IN LAB CONTAINS ADDITIONAL TEST SITE INFORMATION. CUF No yeast or mold isolated after 4 weeks. Performed By: #### M600.2000 #### [facility] [address] [place] [address]. [place], [address] WOUND CTR HISTORY Observed: 11/06/2017 Status: F Source: [place] AND PHYSICAL 8:46 AM [facility] [address] [place] [id number] Wound Ctr History AND Physical 11/02/17 1754 MR#: [id number] Acct: [id number] Name: HOMERO BOBBY Rep #: [id number] : 1975 42 From: Nona Johnson MD PCP: NOT, DEFINED Status: REG RCR Y Location: WC (1) Super obesity Status: Acute Current Visit: Yes Code(s): E66.9 - Obesity, unspecified (2) Chronic acquired lymphedema Status: Acute Current Visit: Yes Code(s): I89.0 - Lymphedema, not elsewhere classified (3) CHF (congestive heart failure) Status: Acute Current Visit: Yes Code(s): I50.9 - Heart failure, unspecified (4) CAD (coronary artery disease) Status: Acute Current Visit: No Code(s): I25.10 - Atherosclerotic heart disease of [place] coronary artery without angina pectoris (5) Sleep apnea Status: Acute Current Visit: No Code(s): G47.30 - Sleep apnea, unspecified (6) Peripheral arterial disease Status: Acute Current Visit: Yes Code(s): I73.9 - Peripheral vascular disease, unspecified History of Present Illness Date of Service: 11/02/17 Chief Complaint: Chronic severe bilateral lower extremity swelling with ? ulcers. History of Wound: Mr. Bobby is a 42yo with Morbid Obesity and Chronic severe bilateral lymph edema who is here to establish care/transfer care. He previosuly followed up at the wound center in [facility] however, this was recently closed. He reports a history of lymphedema spanning several years and has tried 3m wraps and specialized compression stockings without much improvement. He states that attempts had been made in the past to get a lymphedema pump however, for unclear reasons, this has not been possible. During the course of his lymphedema, he has had several ulcers which have been managed at the wound center. Most recent per patient was a copule of weeks ago and it was managed with aquacel silver. He does not recollect any recent venous or vascular studies done. He denies prior follow up with a vascular or vein specialist. He denies any acute complaints at this time. Past Medical History Allergies/Adverse Reactions: Allergies Penicillins Allergy (Verified 11/02/17 12:45) Unknown Home Medications: Ambulatory Orders Medication Instructions Recorded ALPRAZolam [Xanax] 0.125 mg PO TID PRN PRN 11/02/17 Furosemide [Lasix] mg PO DAILY 11/02/17 Hydrocodone Bitart/Apap 5-325 1 tablet PO Q6H PRN PRN 11/02/17 Smoking Status: Never smoker Review of Systems Constitutional: Denies: Anorexia, Chills, Fever Eyes: Denies: Blurred vision, Pain, Redness HEENT: Denies: Difficulty Hearing, Difficulty Swallowing Cardiovascular: Denies: Chest Pain, Chest Tightness Respiratory: Denies: Cough, Hemoptysis Gastrointestinal: Denies: Hematemesis, Vomiting Skin: Denies: Jaundice Neurological: Denies: Change in Speech, Difficulty swallowing, Tremor - Physical Exam Vital Signs Temp Pulse Resp BP 96.2 F L 85 16 155/108 H 11/02/17 12:16 11/02/17 12:16 11/02/17 12:16 11/02/17 12:16 General: Alert, Oriented x3, Cooperative HEENT: Atraumatic, Normocephalic Oral: Moist Mucosa Neck: Supple Lungs: Normal air movement Cardiovascular: Regular rate, Regular Rhythm, Normal S1, Normal S2 Abdomen: Non Tender, Obese, - - Umbilical hernia Extremities: No cyanosis, Edema Wound Measurements and Assessment WC - Nurse 1 - General Ulcer Measurement Start: 11/02/17 11:46 Freq: Status: Active Protocol: Activity Type Activity Date Activity User E-Sign Co-Sign Detail Recorded Client Recorded Date Recorded By Document 11/02/17 12:16 [facility] [id number] 11/02/17 12:34 [facility] Wound Center Nurse 1 [Ulcer Assessment] #1- BLE LYMPHEDEMA Neurological: Cranial nerves II-XII grossly intact Debridement Note No debridement was completed today Assessment/Plan Active Problems Chronic acquired lymphedema (Acute) CHF (congestive heart failure) (Acute) Peripheral arterial disease (Acute) Super obesity (Acute) Assessment: Chronic severe bilateral lymphedema. Supermorbid Obesity. Plan: Mr. Bobby has severe bilateral chronic lyphmedema complicated by his super obesity. He apparently has had recurrent lower extremity ulcers however none was obviously present at this time. Due to his lower extremity anatomy, he may as well have an ulcer however as stated earlier, none apparent. I will order vascular and venous studies as patient states that he has had none recently. Records requested from previous wound center. Will refer to a Vascular/vein specialist. I believe patient might benefit from a lymphedema pump. Bilteral standard 3M wraps for now. Follow up on monday for a nurse visit. Follow up in 1 week with me. 11/06/17 0846 <Electronically signed by Nona Johnson MD> Date Nona Johnson MD CC: Signed ALLERGIES ALLERGIES DATE TYPE / CODE NAME / CODE REACTION SEVERITY SOURCE 08/15/2018 Drug Penicillins/ Unknown Unknown [facility] Allergy/4160 [id number]([facility] [address]157(SNOMED XNORM) Repository CT) ENCOUNTERS ENCOUNTERS ADMIT/DISCHARGE ACCOUNT NUMBER ADMITTING ENCOUNTER LOCATION SOURCE CLASS 09/20/2018 [id number] Ambulatory [facility] ding: Repository 09/06/2018/09/08/20 [id number] [facility], Inpatient [place] 18 G[place]em Encounter [facility] ding:[id number] Repository : KI434Dby: 1 09/06/2018 [id number] [facility], Ambulatory BMSBuilding: [place] BMS.[facility] Repository 09/06/2018 [id number] [facility], Ambulatory BMSBuilding: [place] BMS.CF.[facility] Repository 09/06/2018 [id number] [facility], Ambulatory BMSBuilding: [place] BMS.[facility] Repository 09/06/2018 [id number] [facility], Ambulatory BMSBuilding: [place] BMS.[facility] Repository 09/06/2018/09/10/20 [id number] Ambulatory [address] ding: Repository 08/24/2018 [id number] Ambulatory BMSBuilding: [place] BMS.CF.[facility] Repository 08/15/2018/08/15/20 [id number] Ambulatory BMSBuilding: [place] 18 BMS.[facility] Repository 08/09/2018 [id number] Ambulatory BMSBuilding: [place] BMS.CF.[facility] Repository 08/09/2018/08/10/20 [id number] Ambulatory [address] ding: Repository 07/26/2018 [id number] Ambulatory BMSBuilding: [place] BMS.CF.[facility] Repository 07/12/2018 [id number] Ambulatory BMSBuilding: [place] BMS.CF.[facility] Repository 07/10/2018 [id number] Ambulatory BMSBuilding: [place] BMS.[facility] Repository 07/05/2018/07/05/20 [id number] Ambulatory BMSBuilding: [place] 18 BMS.[facility] Repository 06/15/2018/06/15/20 [id number] Ambulatory BMSBuilding: [place] 18 BMS.[facility] Repository 06/04/2018 [id number] [facility] 05/28/2018 [id number] [facility] ng:H[facility] 05/21/2018 [id number] [facility] ng:H.[facility] 05/18/2018/05/18/20 [id number] Ambulatory BMSBuilding: [place] 18 BMS.[facility] Repository 05/15/2018 [id number] [facility] ng:H.[facility] 05/15/2018 [id number] Ambulatory BMSBuilding: [place] BMS.[facility] Repository 05/07/2018 [id number] Ambulatory [facility] Repository 05/04/2018 [id number] Ambulatory [facility] Repository 05/03/2018/05/11/20 [id number] TARIK ACEVEDO, Inpatient ABuilding:BIMAL VANESSA Encounter URoom: Health 0359Bed: A [facility] Repository 04/09/2018 [id number] Ambulatory [facility] Repository 2018 [id number] Ambulatory [facility] Repository 2018 [id number] [facility] Repository 2018 [id number] [facility] Repository 03/29/2018/03/29/20 [id number] Ambulatory [facility] [facility] ding:AZRA [facility] Repository 03/09/2018 [id number] Ambulatory [facility] Repository 03/08/2018 [id number] [facility]ulatory [facility] Repository 02/28/2018/02/29/20 [id number] Ambulatory BMSBuilding: [place] 18 BMS.[facility] Repository 02/26/2018 [id number] Ambulatory [facility] Repository 02/02/2018 [id number] Ambulatory [facility] Repository 01/23/2018 [id number] Ambulatory [facility] Repository 01/17/2018 [id number] Ambulatory [facility] Repository 01/17/2018 [id number] Ambulatory [facility] Repository 01/09/2018 [id number] Ambulatory ABuilding:LY [facility] Repository 01/05/2018 [id number] [facility] Rep[facility] 01/04/2018 [id number] Ambulatory [facility] Repository 01/04/2018 [id number] Ambulatory [facility] Repository 12/27/2017 [id number] Ambulatory [facility] Repository 12/27/2017 [id number] Ambulatory [facility] Repository 12/25/2017 [id number] Ambulatory [facility] Repository 12/20/2017 [id number] [facility] Repository 12/12/2017/12/13/19 [id number] Ambulatory [place] ding:OT Repository 12/07/2017 [id number] [facility] Repository 12/05/2017/12/06/19 [id number] Ambulatory BMSBuilding: [place] [address] [place] [address] Repository 12/04/2017 [id number] [facility] Repository 11/23/2017 [id number] [facility] Repository 11/16/2017/12/10/19 [id number] Ambulatory [place] ding:[place] Repository 11/16/2017 [id number] [facility] 11/10/2017 [id number] Ambulatory [facility] Repository 11/09/2017 [id number] Ambulatory [facility] Repository 11/09/2017 [id number] [facility] 11/08/2017 [id number] Ambulatory [facility] Repository 11/07/2017 [id number] Ambulatory [facility] Repository 11/03/2017 [id number] Ambulatory [facility] Repository 11/02/2017/11/08/19 [id number] Ambulatory Maria Eugenia [place] [facility] ding: Repository 11/02/2017 [id number] Ambulatory BMSBuilding: Maria Eugenia [facility] Repository 10/26/2017 [id number] Ambulatory [facility] Repository 10/12/2017 [id number] Ambulatory [facility] Repository 10/05/2017 [id number] Ambulatory [facility] Repository PAYERS PAYERS ENCOUNTER GUARANTOR PAYER SUBSCRIBER SOURCE 09/20/2018 HOMERO R Primary NOT GIVENUNK Maria Eugenia [id number] Insurance:SELF PAY [place], [place] Number: Effective Repository 935[address]Diu: (330) Date:2018-09-11 [phone] () 09/06/2018 HOMERO R Primary HOMERO Frida [place] [id number] Insurance:BUCKEYE MILLIKENDOB: [facility] [id number] PLANPolicy Number: Repository 76165Hfz: 330 [id number] [phone] (HP) Date:4206-05-42OJ [address] [place] [address] 76757NZ: 09/06/2018 Secondary NOT GIVENUNK Maria Eugenia Insurance:SELF PAY [facility] Number: Effective Repository Date:2018-09-06 09/06/2018 HOMERO R Primary HOMERO R Maria Eugenia [id number] Insurance:BUCKEYE MILLIKENDOB: [facility] [id number], [place] PLANPolicy Number: Repository 11385Mcg: 330 [id number] [phone] () Date:1810-46-97RU [address] [place] [address] 27234WK: 09/06/2018 Secondary NOT GIVENUNK Maria Eugenia Insurance:SELF PAY [facility] Number: Effective Repository Date:2018-09-06 09/06/2018 HOMERO R Primary HOMERO R [place] [id number] Insurance:BUCKEYE MILLIKENDOB: [facility] [id number], [place] PLANPolicy Number: Repository 79914Yog: 330 [id number] [phone] (HP) Date:2906-82-35JM [address] [place] [address] 95211XZ: 09/06/2018 Secondary NOT GIVENUNK Maria Eugenia Insurance:SELF PAY [facility] Hospital Number: Effective Repository Date:2018-09-06 09/06/2018 HOMERO R Primary HOMERO Galicia [place] [id number] Insurance:BUCKEYE MILLIKENDOB: [facility]LINECOMMUNITY HEALTH [id number], [place] PLANPolicy Number: Repository 77041Crq: 330 [id number] [phone] (HP) Date:0061-02-98XK [address] [place] [address] 76310RT: 09/06/2018 Secondary NOT GIVENUNK Maria Eugenia Insurance:SELF PAY [facility] Hospital Number: Effective Repository Date:2018-09-06 09/06/2018 HOMERO R Primary HOMERO R [place] [id number] Insurance:BUCKEYE MILLIKENDOB: [facility] [id number], [place] PLANPolicy Number: Repository 81915Xey: 330 [id number] [phone] (HP) Date:6763-63-57NW [address] [place] [address] 21814UB: 09/06/2018 Secondary NOT GIVENUNK [place] Insurance:SELF PAY [facility] Hospital Number: Effective Repository Date:2018-09-06 09/06/2018 HOMERO R Primary HOMERO R [place] [id number] Insurance:BUCKEYE MILLIKENDOB: [facility] [id number], [place] PLANPolicy Number: Repository 02458Dfi: 330 [id number] [phone] (HP) Date:4141-38-57YA [address] [place] [address] 50937YH: 09/06/2018 Secondary NOT GIVENUNK Maria Eugenia Insurance:SELF PAY [facility] Hospital Number: Effective Repository Date:2018-08-11 08/24/2018 HOMERO R Primary HOMERO Galicia [place] [id number] Insurance:BUCKEYE MILLIKENDOB: [facility] [id number], [place] PLANPolicy Number: Repository 00214Yqm: 330 [id number] [phone] (HP) Date:7312-28-97IX [address] [place] [address] 53929LY: 08/24/2018 Secondary NOT GIVENUNK Maria Eugenia Insurance:SELF PAY [facility] Number: Effective Repository Date:2018-08-24 08/15/2018 HOMERO R Primary HOMERO Galicia [place] [id number] Insurance:BUCKEYE MILLIKENDOB: [facility] [id number], [place] PLANPolicy Number: Repository 88953Bwj: 330 [id number] [phone] (HP) Date:5382-91-05SW [address] [place] [address] 20023ZO: 08/15/2018 Secondary NOT GIVENUNK [place] Insurance:SELF PAY [facility] Number: Effective Repository Date:2018-07-25 08/09/2018 HOMERO R Primary HOMERO [place]icia Maria Eugenia [id number] Insurance:BUCKEYE MILLIKENDOB: [facility] [id number], [place] PLANPolicy Number: Repository 40861Lja: 330 [id number] [phone] (HP) Date:5160-67-16GE [address] [place] [address] 69421BV: 08/09/2018 Secondary NOT GIVENUNK [place] Insurance:SELF PAY [facility] Number: Effective Repository Date:2018-08-09 08/09/2018 HOMERO R Primary HOMERO [place]icia Maria Eugenia [id number] Insurance:BUCKEYE MILLIKENDOB: [facility] [id number], [place] PLANPolicy Number: Repository 45391Enm: 330 [id number] [phone] (HP) Date:4169-73-41WQ [address] [place] [address] 04318QX: 08/09/2018 Secondary NOT GIVENUNK Maria Eugenia Insurance:SELF PAY [facility] Number: Effective Repository Date:2018-07-06 07/26/2018 HOMERO R Primary HOMERO [place]icia Maria Eugenia [id number] Insurance:BUCKEYE MILLIKENDOB: [facility] [id number] Memorial Hospital [facility] Number: Repository 47525Emv: 330 [id number] [phone] () Date:5955-30-17CG [address] [place] [address] 88235PM: 07/26/2018 Secondary NOT GIVENUNK Maria Eugenia Insurance:SELF PAY [facility] Number: Effective Repository Date:2018-07-26 07/12/2018 HOMERO R Primary HOMERO [place] Maria Eugenia [id number] Insurance:BUCKEYE MILLIKENDOB: [facility] [id number] Memorial Hospital and Clinics Number: Repository 82661Til: 330 [id number] [phone] () Date:1793-00-71AM [address] [place] [address] 18476RC: 07/12/2018 Secondary NOT GIVENUNK Maria Eugenia Insurance:SELF PAY [facility] Number: Effective Repository Date:2018-07-12 07/10/2018 HOMERO R Primary HOMERO R Maria Eugenia [id number] Insurance:BUCKEYE MILLIKENDOB: [facility] [id number] Memorial Hospital and Clinics Number: Repository 30935Pqk: 330 [id number] [phone] () Date:5182-91-21GU [address] [place] [address] 11237AS: 07/10/2018 Secondary NOT GIVENUNK Maria Eugenia Insurance:SELF PAY [facility] Hospital Number: Effective Repository Date:2018-07-10 07/05/2018 HOMERO R Primary HOMERO R [place] [id number] Insurance:BUCKEYE MILLIKENDOB: [facility] [id number] Affairs Medical Center-BirminghamPolicy Number: Repository 39650Htu: 330 [id number] [phone] (HP) Date:2496-74-48CY [address] [place] [address] 00166KQ: 07/05/2018 Secondary NOT GIVENUNK Maria Eugenia Insurance:SELF PAY [facility] Hospital Number: Effective Repository Date:2018-07-05 06/15/2018 HOMERO R Primary HOMERO R [place] [id number] Insurance:RASHEED ARAUJONDOB: [facility] [id number] Medical Centericy Number: Repository [id number]: (330 [id number] [phone] (HP) Date:8119-18-02BX [address] [place] [address] 11791HC: 06/15/2018 Secondary NOT GIVENUNK [place] Insurance:SELF PAY [facility] Number: Effective Repository Date:2018-06-15 06/04/2018 HOMERO II Primary HOMERO [facility] [id number] Insurance:[facility]HEED [facility]OBBYFranc[facility] PLANPolic Repository [place], [place] Number: [address]Gwh: 330 [id number] [phone] (HP) Date:2047-83-21FZ [address] [place] [address] 02821YT: 05/28/2018 HOMERO II Primary HOMERO [facility] [id number] Insurance:GENESEE GAYLERooks County Health CenterPolCoffe[place], [place] Number: [address]Mut: 330 [id number] [phone] (HP) Date:2895-03-79NR [address] [place] [address] 58973GX: 05/21/2018 HOMERO II Primary HOMERO [facility] [id number] Insurance:[facility] CENTERSUJEYOakla[facility] PLANPolicy Repository [place], [place] Number: [address]Bsa: 330 [id number] [phone] (HP) Date:1736-97-85TL [address] [place] [address] 88442LC: 05/18/2018 HOMERO R Primary HOMERO R Maria Eugenia [id number] Insurance:BUCKEYE MILLIKENDOB: [facility] [id number], [place] PLANPolicy Number: Repository 13139Vab: 330 [id number] [phone] (HP) Date:4077-39-06PU [address] [place] [address] 36554LH: 05/18/2018 Secondary NOT GIVENUNK Maria Eugenia Insurance:SELF PAY [facility] Number: Effective Repository Date:2018-05-18 05/15/2018 HOMERO II Primary [facility] [id number] Insurance:BUCKE GAYLENFranciscan Health Rensselaer [place]PolicBrune[place] Number: [address]Kvi: 330 [id number] [phone] (HP) Date:4408-25-72MU [address] [address]PP: 05/15/2018 HOMERO R Primary HOMERO R Maria Eugenia [id number] Insurance:BUCKEYE MILLIKENDOB: [facility] [id number], [place] PLANPolicy Number: Repository 66325Pfx: (330 [id number] [phone] (HP) Date:2622-40-03TE [address] [place] [address] 53876EH: 05/15/2018 Secondary NOT GIVENUNK [place] Insurance:SELF PAY [facility] Number: Effective Repository Date:2018-05-15 05/07/2018 Homero R Primary [facility] Insurance:BuckeyePoli MillikenDOB: System [id number] cy Number: Effective [id number] [facility] Date: [place], [place] [address]Btx: (HP) 05/04/2018 Homero Galicia Primary Homero Galicia [facility] MillikenDOB: Insurance:BuckeyePoli MillikenDOB: System cy Number: Effective [id number] Repository [address] Date: [place], [place] [address]Mjb: (HP) 05/03/2018 HOMERO R Primary HOMERO Gal[place] [facility] IIDOB: Insurance:[facility] IIDOB: [facility] HEALTH PLANPolvirginia gay hospital [id number] Number: [address] [place], [place] [id number] [place], [place] [address]Ems: 330) Date:2018-05-03 93107Ryo: (HP) 6623-60-04Nbuc [phone] (HP)Tel: Name:MAC Rahman [address], [place] () [address]HI: 04/09/2018 Homero Galicia Primary Homero [place]icia [facility]: Insurance:BuckeyePoli MillikenDOB: System cy Number: Effective [id number] Repository [address] Date: [place], [place] [address]Bxd: (HP) 2018 Homero R Primary Homero Galicia [facility] MillikenDOB: Insurance:BuckeyePoli MillikenDOB: System cy Number: Effective [id number] Repository [address] Date: [place], [place] [address]Mfa: (HP) 2018 Homero Galicia Primary Homero Galicia [facility] MillikenDOB: Insurance:BuckeyePoli MillikenDOB: System cy Number: Effective [id number] Repository [address] Date: [place], [place] [address]Ljk: (HP) 2018 Homero R Primary Homero Galicia [facility] MillikenDOB: Insurance:BuckeyePoli MillikenDOB: System cy Number: Effective [id number] Repository [address] Date: [place], [place] [address]Hme: (HP) 03/29/2018 HOMERO R Primary HOMERO Gal[place] [facility] IIDOB: Insurance:[facility] IIDOB: [facility]ANSuburban Community Hospital [id number] [address] Number: [address] [place], [place] [id number] [place], [place] [address]Apz: (330) Date:2018-03-29 25876Fpc: (HP) 3621-50-32Oqqr [phone] (HP)Tel: Name:MAC Lacey [address] [place] [address] (MW) [address]RY: 03/08/2018 Homero R Primary Homero Galicia [facility] MillikenDOB: Insurance:BuckeyePoli MillikenDOB: System cy Number: Effective [id number] Repository [address] Date: [place], [place] [address]Aci: (HP) 02/28/2018 HOMERO R Primary HOMERO [place] [id number] Insurance:BUCKEYE MILLIKENDOB: [facility] DARLINECOMMUNITY HEALTH 0725-04-18ZVBMoundview Memorial Hospital and Clinics Number: Repository [address]386Lhn: 330 [id number] [phone] (HP) Date:6838-24-87GB[address] [address]NG: 02/28/2018 Secondary NOT GIVENUNK [place] Insurance:SELF PAY [facility] Number: Effective Repository Date:2018-02-28 02/26/2018 Homero R Primary Homero Galicia [facility] MillikenDOB: Insurance:BuckeyePoli MillikenDOB: System cy Number: Effective [id number] Repository [address] Date: [place], [place] [address]Lln: (HP) 02/02/2018 Homero R Primary Homero [facility]:BuckeyePoli MillikenDOB: System cy Number: Effective [id number] Repository [address] Date: [place], [place] [address]Mzm: (HP) 01/23/2018 Homero R Primary Homero Galicia [facility] MillikenDOB: Insurance:BuckeyePoli MillikenDOB: System cy Number: Effective [id number] Repository [address] Date: [place], [place] [address]Uys: (HP) 01/17/2018 Homero R Primary Homero Galicia [facility] MillikenDOB: Insurance:BuckeyePoli MillikenDOB: System cy Number: Effective [id number] Repository [address] Date: [place], [place] [address]Ywh: (HP) 01/17/2018 Homero R Primary Homero Galicia [facility] MillikenDOB: Insurance:BuckeyePoli MillikenDOB: System cy Number: Effective [id number] Repository [address] Date: [place], [place] [address]Len: (HP) 01/09/2018 HOMERO R Primary HOMERO [place] [facility] IIDOB: Insurance:[facility] IIDOB: [facility] HEALTH PLANPolicy [id number] [address] Number: [address] [place], [place] [id number] [place], [place] [address]Gbk: (330) Date:2018-01-08 28692Fch: (HP) 0981-81-59Slkp [phone] (HP)Tel: Name:DARIANBhavik Rahman [address], [place] () [address]CG: 01/05/2018 HOMERO R Primary HOMERO [place] Maria Eugenia [id number] Insurance:BUCKEYE MILLIKENDOB: [address] [facility] [id number] Affairs Medical Center-BirminghamPolvirginia gay hospital Number: Repository [address]Eqi: (878) [id number] [phone] (HP) Date:5589-88-89CV [address] [place] [address]LI: 01/05/2018 Secondary NOT GIVENUNK [place] Insurance:SELF PAY [facility] Number: Effective Repository Date:2017-12-05 01/04/2018 Homero R Primary Homero Galicia [facility] MillikenDOB: Insurance:BuckeyePoli MillikenDOB: System cy Number: Effective [id number] Repository [address] Date: [place], [place] [address]Uqc: (HP) 01/04/2018 Homero R Primary Homero Galicia [facility] MillikenDOB: Insurance:BuckeyePoli MillikenDOB: System cy Number: Effective [id number] Repository [address] Date: [place], [place] [address]Exr: (HP) 12/27/2017 Homero R Primary Homero Galicia [facility] MillikenDOB: Insurance:BuckeyePoli MillikenDOB: System cy Number: Effective [id number] Repository [address] Date: [place], [place] [address]Wcp: (HP) 12/27/2017 Homero R Primary Homero Galicia [facility] MillikenDOB: Insurance:CenpaticoPo MillikenDOB: System licy Number: [id number] Repository [address] Effective Date: [place], [place] [address]Jcf: (HP) 12/25/2017 Homero R Primary Homero Galicia [facility] MillikenDOB: Insurance:BuckeyePoli MillikenDOB: System cy Number: Effective [id number] Repository [address] Date: [place], [place] [address]Zqc: (HP) 12/20/2017 HOMERO R Primary HOMERO [place] [id number] Insurance:BUCKEYE MILLIKENDOB: [facility] [id number], [place] PLANPolicy Number: Repository [address]Mqy: 330 [id number] [phone] (HP) Date:8876-99-23NQ [address] [place] [address] 59941ST: 12/20/2017 Secondary NOT GIVENUNK [place] Insurance:SELF PAY [facility] Hospital Number: Effective Repository Date:2017-12-10 12/12/2017 HOMERO R Primary HOMERO Galicia [place] [id number] Insurance:BUCKEYE MILLIKENDOB: [facility] [id number], [place] PLANPolicy Number: Repository [address]Ayw: 330 [id number] [phone] (HP) Date:5535-46-75NI [address] [place] [address] 859[address]AF: 12/12/2017 Secondary NOT GIVENUNK [place] Insurance:SELF PAY [facility] Hospital Number: Effective Repository Date:2017-11-23 12/07/2017 Homero R Primary Homero Galicia [facility] MillikenDOB: Insurance:Self MillikenDOB: System PayPolicy Number: [id number] General Hospital Effective Date: [place], [place] [address]Naw: (HP) 12/05/2017 HOMERO R Primary HOMERO [place] Maria Eugenia [id number] Insurance:BUCKEYE MILLIKENDOB: [facility] [id number], [place] PLANPolicy Number: Repository [address]Trq: 330 [id number] [phone] (HP) Date:3552-23-74KZ [address] [place] [address] 730[address]QI: 12/05/2017 Secondary NOT GIVENUNK [place] Insurance:SELF PAY [facility] Hospital Number: Effective Repository Date:2017-11-29 12/04/2017 Homero R Primary Homero [facility] MillikenDOB: Insurance:BuckeyePoli MillikenDOB: System cy Number: Effective [id number] [address] Date: [place], [place] [address]Dhu: (HP) 11/23/2017 Homero Galicia Primary Homero Galicia [facility] MillikenDOB: Insurance:BuckeyePoli MillikenDOB: System cy Number: Effective [id number] Repository [address] Date: [place], [place] [address]Rjx: (HP) 11/16/2017 HOMERO Galicia Primary HOMERO [place] Maria Eugenia [id number] Insurance:BUCKEYE MILLIKENDOB: [facility] [id number] Memorial Hospital and Clinics Number: Repository [address]Yzn: 330 [id number] [phone] (HP) Date:2617-26-23JB[address] [address]LV: 11/16/2017 Secondary NOT GIVENUNK [place] Insurance:SELF PAY [facility] Number: Effective Repository Date:2017-11-09 11/16/2017 HOMERO Galicia Primary HOMERO [place] Maria Eugenia [id number] Insurance:BUCKEYE MILLIKENDOB: [facility] [id number] Memorial Hospital and Clinics Number: Repository [address]Vbu: 330 [id number] [phone] (HP) Date:6249-12-13FK[address] [address]LG: 11/16/2017 Secondary NOT GIVENUNK Maria Eugenia Insurance:SELF PAY [facility] Number: Effective Repository Date:2017-11-16 11/10/2017 Homero Galicia Primary Homero Galicia [facility] MillikenDOB: Insurance:BuckeyePoli MillikenDOB: System cy Number: Effective [id number] [address]ository [address] Date: [place], [place] [address]Jlw: (HP) 11/09/2017 Homero R Primary Homero Galicia [facility] MillikenDOB: Insurance:[employer]atic[employer]Po MillikenDOB: System licy Number: [id number] Repository [address] Effective Date: [place], [place] [address]Zly: (HP) 11/09/2017 HOMERO R Primary HOMERO [place] [id number] Insurance:BUCKEYE MILLIKENDOB: [facility] DARLINECOMMUNITY HEALTH [id number], [place] PLANPolicy Number: Repository [address]Zzo: (264) [id number] [phone] (HP) Date:9875-11-34GE [address] [place] [address] 326[address]NO: 11/09/2017 Secondary NOT GIVENUNK Maria Eugenia Insurance:SELF PAY [facility] Number: Effective Repository Date:2017-11-09 11/08/2017 Homero Galicia Primary Homero Galicia [facility] MillikenDOB: Insurance:BuckeyePoli MillikenDOB: System cy Number: Effective [id number] [address]ository [address] Date: [place], [place] [address]Jut: (HP) 11/07/2017 Homero R Primary Homero Galicia [facility] MillikenDOB: Insurance:Self MillikenDOB: System PayPolicy Number: [id number] Repository [address] Effective Date: [place], [place] [address]Tpl: (HP) 11/03/2017 Homero R Primary Homero Galicia [facility] MillikenDOB: Insurance:[employer]paticoPo MillikenDOB: System licy Number: [id number] Repository [address] Effective Date: [place], [place] [address]Wrh: (HP) 11/02/2017 HOMERO R Primary HOMERO Gal[place] Maria Eugenia [id number] Insurance:BUCKEYE MILLIKENDOB: [facility] DARLINECOMMUNITY HEALTH [id number], [place] PLANPolicy Number: Repository [address]Now: (147) [id number] [phone] (HP) Date:0230-17-88HY [address] [address]ER: 11/02/2017 Secondary NOT GIVENUNK Maria Eugenia Insurance:SELF PAY [facility] Number: Effective Repository Date:2017-11-02 11/02/2017 HOMERO Galicia Primary HOMERO [place] [id number] Insurance:BUCKEYE MILLIKENDOB: [address] [facility] [id number] Memorial Hospital and Clin[facility] Number: Repository [address]Exl: 330 [id number] [phone] (HP) Date:3904-36-64Z[address] [place] [place] [address]QA: 11/02/2017 Secondary NOT GIVENUNK [place] Insurance:SELF PAY [facility] Number: Effective Repository Date:2017-11-02 10/26/2017 Homero R Primary Homero Galicia [facility] MillikenDOB: Insurance:BuckeyePoli MillikenDOB: System cy Number: Effective [id number] [address] Date: [place], [place] [address]Nsg: (HP) 10/12/2017 Homero Galicia Primary Homero Galicia [facility] MillikenDOB: Insurance:CenpaticoPo MillikenDOB: System licy Number: [id number] [address] Effective Date: [place], [place] [address]Kwp: (HP) 10/05/2017 Homero Galicia Primary Homero Galicia [facility] MillikenDOB: Insurance:BuckeyePoli MillikenDOB: System cy Number: Effective [id number] Repository [address] Date: [place], [place] [address]Aii: (HP)
== END 2018-09-10 23:59 ==
LOC: WC 13:00
PROVIDERS: Family Provider Internal Medicine; PCP Internal Medicine; Visit Provider Nurse Practitioner Family
DX: L97.122 Non-pressure chronic ulcer of left thigh with fat layer exposed (principal); I50.32 Chronic diastolic (congestive) heart failure; I89.0 Lymphedema, not elsewhere classified; E66.01 Morbid (severe) obesity due to excess calories; Z71.3 Dietary counseling and surveillance; L98.492 Non-pressure chronic ulcer of skin of other sites with fat layer exposed
CPT/HCPCS: 11042

== ENCOUNTER 2018-09-06 16:24 | Observation (INO) | payer MEDICAID, SELFPAY ==
[2018-09-06 15:26] VITALS: BMI 75.9
[2018-09-06 16:29] VITALS: BP 149/80; PULSE 77; RESP 23; TEMP 36.7; O2SAT 94; BMI 75.9
[2018-09-06 16:33] VITALS: BP 149/80; PULSE 77; RESP 24; O2SAT 92
[2018-09-06 16:39] VITALS: BP 149/80; PULSE 79; RESP 22; TEMP 36.7; O2SAT 94
[2018-09-06 17:07] LABS: Absolute Lymphocyte Count 0.79 X10^3/ul (0.83-4.51); Absolute Neutrophil Count 4.7 X10^3/uL (2.0-7.7); Basophil# 0.02 X10^3/uL; Basophil% 0.3 % (0-1); Eosinophil# 0.14 X10^3/uL; Eosinophils% 2.2 % (0-5); Hematocrit 33.8 % (40-54); Hemoglobin 10.6 g/dl (13.0-16.5); Lymphocyte # 0.79 X10^3/ul (4.0); Lymphocyte % 12.7 % (19-41); Mean Corp Hgb Conc 31.4 g/gl (32-36); Mean Corpuscular Hgb 23.3 pg (27.0-32.0); Mean Corpuscular Volume 74.3 fL (80-94); Monocyte% 9.6 % (0-10); Neutrophil # 4.65 X10^3/uL (2.7-7.7); Neutrophil % 74.7 % (47-70); Platelet Count 236 K/mm3 (150-450); RBC Distribution Width CV 18.6 % (11.6-14.6); Red Blood Count 4.55 M/mm3 (4.6-6.2); White Blood Count 6.2 K/mm3 (4.4-11.0)
[2018-09-06 17:17] LABS: POSITIVE COUNT NO; POSITIVE DIFFERENTIAL NO; POSITIVE MORPHOLOGY NO
[2018-09-06 17:26] LABS: Anion Gap 4 (5-15); BUN 12 mg/dL (7-18); BUN/Creat Ratio 13.6 RATIO (10-20); Calcium,Total 8.3 mg/dL (8.5-10.1); Chloride 104 mmol/L (98-107); Creatinine, Serum 0.88 mg/dL (0.70-1.30); EST Glomerular Filtration Rate 100 mL/min (>60); Est Glom Filt Rate - Afr Amer 121 mL/min (>60); Estimated Creatinine Clearance 138.48 ml/min; Glucose 91 mg/dL (74-106); Potassium 4.2 mmol/L (3.5-5.1); Sodium Level 139 mmol/L (136-145)
[2018-09-06] MEDS: 0.9% Normal Saline 1,000 ML 150 ML IV (17:26)
[2018-09-06 17:30] LABS: Lactic Acid 1.2 mmol/L (0.4-2.0)
[2018-09-06 18:01] VITALS: BP 149/72; PULSE 79; RESP 22; TEMP 36.8; O2SAT 96
--- NOTE | 2018-09-06 18:55 | ED.DCSUM_ITS ---
- ER Visit Summary Date of Service: 09/06/18 Chief Complaint: Left thigh infection History of Present Illness: The patient is a 43 M with history of morbid obesity. He has chronic lower extremity wounds and lymphedema. He is been following with the wound center twice a week. He has had increased drainage from 2 separate areas on his left leg over the past couple of days along with generalized weakness and mild chills. He went to the wound center today and was sent to the ER for IV antibiotics. He does normally ambulate with the aid of crutches. When walking out to his car from the wound center he did fall. He denies injury from the fall, just states he feels achy. Physical Examination: Vital signs are unremarkable. He is afebrile at 98.1. Patient is lying in bed no acute distress. Head neck examination is unremarkable. Heart is regular rate and rhythm. Lungs sounds are clear. Abdomen is soft, obese, nontender. Lower extremity examination was chronic lymphedema to the bilateral legs. Skin is so edematous that he has fissures in his skin. There is an area on the left upper leg with erythema and warmth consistent with mild cellulitis along with a focal area of purulent drainage from between the skin fissures. There is purulent oozing from between the skin fissures on the anterior lower leg as well. Test Results: CBC was normal white count with 75% neutrophils. Hemoglobin is 10.6. Chemistry studies normal. Lactate is normal. Blood cultures were sent. Emergency Department Course and Treatment: Patient was given a dose of IV clindamycin here. He has a penicillin allergy. Patient did stand at bedside to urinate while here nursing staff did advise that he was extremely weak. At this point I think he would benefit from overnight hospitalization with IV antibiotics, wound care, and physical therapy evaluation due to his weakness. Treatment Plan: [] Disposition: Admit Impression: 1. Left lower extremely cellulitis 2. Lymphedema with acute on chronic wounds 3. Generalized weakness This note was generated with [employer] dictation software. It may contain incorrect words, spelling, and punctuation that were not noted in review of the chart prior to signing ED Disposition - Plan for ED Patient: Chief Complaint: Lower Extremity Injury Referrals: Brian Johnson MD [Primary Care Provider] -
--- NOTE | 2018-09-06 19:25 | HP.PCM_ITS ---
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 The patient is a 43 year old M with past medical history as mentioned above who had a history of chronic bilateral lower extremity lymphedema, chronic recurrent bilateral leg wounds was sent from the wound care center today to the emergency department for evaluation and probable admission. Patient has been following up with the wound care center for left thigh and left leg infected nonhealing wounds. His mentioned that over the last couple of days, he has been having increased drainage, swelling and erythema of the wound on the left thigh as well as left leg, associated with chills and weakness and without aggravating or relieving factors. Today, when he was walking out of the wound care center to his car, he had a mechanical fall. He denies any significant head or body injury. He denied prodromal symptoms such as dizziness, lightheadedness, syncope or presyncope. He did report that he is feeling weak and tired as well as generalized body aches. He had a history of chronic diastolic CHF and he has been on diuretics and GRACIA inhibitors and has been stable. Recently, he was started on Xarelto for suspected pulmonary embolism and apparently, this treatment started empirically because of high suspicion of PE although no CTA chest or VQ scan done. He had a history of hypertension which has been under control with lisinopril. In the emergency department, he was afebrile, blood pressure and heart rate are stable, pulse ox was maintained on room air. His routine blood work was remarkable for chronic anemia with hemoglobin of 10.6 g/dL, otherwise normal. Lactic acid was normal. He is being admitted for left thigh and left leg nonhealing infected ulcer/wounds with surrounding cellulitis. Past Medical History Past Medical History (Chronic Problems): Chronic Problems (Last Updated 09/06/18 @ 19:32 by Dex Jose MD) Nonhealing ulcer of left lower extremity with fat layer exposed (Chronic) Chronic acquired lymphedema (Chronic) Ulcer of left thigh (Chronic) Chronic diastolic heart failure (Chronic) Super obesity (Chronic) Essential (primary) hypertension (Chronic) Medical History: Medical History (Last Updated 09/06/18 @ 19:32 by Dex Jose MD) Pulmonary embolism (Suspected) I26.99 Chronic diastolic heart failure (Chronic) I50.32 Super obesity (Chronic) E66.9 Essential (primary) hypertension (Chronic) I10 Anxiety and depression F41.9, F32.9 Cellulitis L03.90 Emphysema of lung J43.9 Lymphedema I89.0 Obstructive sleep apnea G47.33 Osteoarthritis M19.90 Peripheral vascular disease I73.9 Allergies Penicillins Allergy (Verified 08/15/18 15:12) Unknown Home Medications: Ambulatory Orders Medication Instructions Recorded ALPRAZolam [Xanax] 0.125 mg PO TID PRN PRN 11/02/17 omeprazole 20 mg capsule,delayed 20 mg PO DAILY #90 cap 05/18/18 release rivaroxaban 20 mg tablet 20 mg PO DAILY #60 tab 05/18/18 furosemide 40 mg tablet 40 mg PO DAILY #90 tab 08/15/18 Atorvastatin Calcium [Lipitor] 40 mg PO QHS 09/06/18 Lisinopril 20 mg PO DAILY 09/06/18 Sertraline HCl [Zoloft] 150 mg PO DAILY 09/06/18 Surgical History: - - Surgery for cleft lip and cleft palate long time ago. Psychiatric History: Depression Lives: Spouse/ Significant Other Smoking Status: Former smoker Alcohol: None Drugs: None - *Family History Maternal Family History: Family History (Last Reviewed 08/15/18 @ 15:52 by Selwyn Liu MD) Father Myocardial infarction Hypertension Heart disease Arthritis Cancer History Items: No pertinent history Paternal Family History: Family History (Last Reviewed 08/15/18 @ 15:52 by Selwyn Liu MD) Father Myocardial infarction Hypertension Heart disease Arthritis Cancer History Items: No pertinent history Review of Systems Constitutional: Reports: Chills, Weakness, Fatigue. Denies: Anorexia, Fever Eyes: Denies: Blurred vision, Double vision, Drainage, Redness HEENT: Denies: Difficulty Hearing, Dysphasia, Ear Pain, Eye Pain, Nasal Congestion, Sore Throat Cardiovascular: Reports: Edema. Denies: Chest Pain, Chest Pressure, Chest Tightness, Light Headedness, Palpitations, Syncope Respiratory: Denies: Cough, Pleuritic Pain, Shortness of Breath, Sputum production, Wheezing Gastrointestinal: Denies: Abdominal Pain, Constipation, Diarrhea, Nausea, Vomiting Musculoskeletal: Denies: Arm Pain, Back Pain, Foot Pain Skin: Reports: Skin Changes, Wounds. Denies: Dryness, Rash Neurological: Denies: Balance problems, Blurred vision, Double vision, Change in Speech, Slurred speech, Confusion, Headaches, Incoordination, Numbness Psychiatric: Reports: Depression. Denies: Anxiety Endocrine: Denies: Change in Body Habitus, Polydipsia VTE Information - Inpt Only VTE Present on Admission: No VTE Mechan Device Prophylaxis: None VTE Pharm Prophylaxis ordered?: No - Physical Exam General: Alert, Oriented x3, Cooperative, No apparent distress HEENT: Atraumatic, PERRLA, EOMI, Normocephalic Oral: Moist Mucosa, No Gingival or Mucosal Lesions/ Ulcerations Neck: Supple, No JVD, Negative Carotid Bruits, Trachea Midline, Thyroid Normal Size and Texture Lungs: Clear to auscultation, No rhonchi, No wheeze, No rales, Diminished Cardiovascular: Regular rate, Regular Rhythm, Normal S1, Normal S2, PMI Normal Abdomen: Bowel Sounds Present, Soft, Non Tender, Non-Distended, No Hepato- splenomegaly, Obese Extremities: No clubbing, No cyanosis, Edema, - - He was extensive bilateral lower extremity lymphedema, skin changes. Area of induration surrounding and open wound on the left thigh with drainage. Open wound on the anterior aspect of the left leg with open wound and surrounding erythema. Skin: No rashes, Ulcer/ Wound, Excoriated Lymphatic: No Cervical, Supraclavicular, or Inguinal Adenopathy Neurological: Cranial nerves II-XII grossly intact, Motor Exam 5/5 strength throughout Psych/Mental Status: Normal Affect, Appropriate, Alert and oriented to time, place, person, mood and affect Vital Signs Temp Pulse Resp BP Pulse Ox 98.2 F 79 22 H 149/72 H 96 09/06/18 18:01 09/06/18 18:01 09/06/18 18:01 09/06/18 18:01 09/06/18 18:01 Oxygen Flow Rate (L/min) 4 Oxygen Delivery Method Nasal Cannula Weight: 657 lb Body Mass Index (BMI) 75.9 Laboratory Tests Past 24 Hrs 09/06/18 09/06/18 09/06/18 16:45 16:45 16:45 WBC 6.2 RBC 4.55 L Hgb 10.6 L Hct 33.8 L MCV 74.3 L MCH 23.3 L MCHC 31.4 L RDW 18.6 H RDW Differential 50.0 H Plt Count 236 MPV 9.0 Immature Gran % (Auto) 0.500 Neut % (Auto) 74.7 H Lymph % (Auto) 12.7 L Major % (Auto) 9.6 Eos % (Auto) 2.2 Baso % (Auto) 0.3 Absolute Neuts (auto) 4.7 Absolute Lymphs (auto) 0.79 L Total Counted Not Reportable Sodium 139 Potassium 4.2 Chloride 104 Carbon Dioxide 31.0 Anion Gap 4 L BUN 12 Creatinine 0.88 Estim Creat Clear Calc 138.48 Est GFR (MDRD) Af Amer 121 Est GFR (MDRD) Non-Af 100 BUN/Creatinine Ratio 13.6 Glucose 91 Lactic Acid 1.2 Calcium 8.3 L Assessment/Plan This is a 43 years old male patient was referred to ED from the wound care center because of increasing drainage, erythema and swelling on an open wound on the left thigh and left leg and he is being admitted for infected nonhealing wounds on the left thigh and left leg with surrounding cellulitis. #1 infected nonhealing wounds of the left thigh/left leg/surrounding cellulitis: In context of history of extensive bilateral lower extremity lymphedema with history of recurrent nonhealing ulcers and wounds. At this time, no evidence of sepsis or severe sepsis. Vital signs are stable, afebrile, no leukocytosis. Lactic acid is normal. In the past, wound culture revealed Proteus mirabilis, Streptococcus agalactiae, MSSA and Morganella morganii. Plan: Admit to MedSurg floor, wound culture, blood culture, start IV cefazolin and clindamycin, MRSA wound screen, wound care nurse consult, repeat CBC and BMP tomorrow morning, PT OT evaluation and treatment. #2 hypertension: Blood pressure stable, continue lisinopril and Lasix. #3 history of suspected pulmonary embolism: Respiratory status stable, pulse ox is maintained. Continue Xarelto. #4 chronic diastolic CHF: Clinically compensated, stable. Continue Lasix, lisinopril. #5 morbid obesity/extensive bilateral lower extremity lymphedema: Wound care nurse consult, PT OT evaluation and treatment. #6 depression: Continue Zoloft. #7 DVT prophylaxis: Continue Xarelto. This note was generated with [employer] dictation software. It may contain incorrect words, spelling, and punctuation that were not noted in checking the note before signing. Code Visit Inpatient E&M: 62287 Init Hosp L3
[2018-09-06 19:50] VITALS: BMI 75.6; BMI 75.7
[2018-09-06 20:31] VITALS: BP 149/81; PULSE 77; RESP 18; TEMP 36.9; O2SAT 94
--- NOTE | 2018-09-06 22:00 | NURSING ---
Patient reports at home he sleeps on a couch with an ottoman to rest his legs. Please note BMI is over 75.
[2018-09-06 22:12] LABS: M R Staph aureus DNA By PCR Negative (Negative); Probe Check PASS; Specimen Processing Control PASS; Staph aureus DNA By PCR POSITIVE (Negative)
[2018-09-06] MEDS: Atorvastatin Calcium 40 MG Tablet PO (22:14)
[2018-09-06] MEDS: Lisinopril 20 MG Tablet PO (22:14)
[2018-09-06] MEDS: Sertraline 50 MG Tablet 150 MG PO (22:15)
[2018-09-06] MEDS: Pantoprazole Sodium 20 MG Tablet PO (22:15)
[2018-09-06] MEDS: Cefazolin 1 GM/50 ML BAG IV (22:15)
[2018-09-07 02:30] VITALS: BP 142/64; PULSE 81; RESP 18; TEMP 37; O2SAT 95
--- NOTE | 2018-09-07 02:30 | NUR.TO.PHY ---
2L O2 placed at this time. Pt observed to stop breathing while sleeping by this RN, mouth breather. O2 sats in mid 80s while sleeping. Pt reports at home he chooses not to wear a CPAP.
--- NOTE | 2018-09-07 04:53 | RAD_ITS ---
STUDY: X-RAY - RIGHT WRIST REASON FOR EXAM: Male, 43 years old. Right-sided wrist pain after falling yesterday. TECHNIQUE: 3 view(s) of the wrist were obtained. COMPARISON: Prior comparison studies are not available for review at this time. FINDINGS: Normal visualized distal radius and ulna. Normal radiocarpal articulation. There is degenerative arthrosis of the distal radioulnar articulation. Normal carpal bones. Normal carpal articulations. Normal carpometacarpal articulation of the thumb. Normal second through fifth carpometacarpal articulations. Normal visualized metacarpal bones. There is moderate soft tissue swelling. There is no demonstrated acute fracture. RAD/Wrist min 3 Views IMPRESSION: 1. Soft tissue swelling and degenerative arthropathy. 2. No definite evidence for acute fracture. If there is still clinical concern for acute fracture, follow-up radiographs in 7-10 days maybe helpful in evaluating a healing radiographically occult fracture. Electronically Signed: Emmy Tate MD at 5:51 EST , Service support ,
[2018-09-07] MEDS: Acetaminophen 325 MG Tablet 650 MG PO ×2 (05:15→23:07)
[2018-09-07] MEDS: Cefazolin 1 GM/50 ML BAG IV (05:15)
[2018-09-07 05:50] LABS: Absolute Lymphocyte Count 0.99 X10^3/ul (0.83-4.51); Absolute Neutrophil Count 4.5 X10^3/uL (2.0-7.7); Basophil# 0.03 X10^3/uL; Basophil% 0.5 % (0-1); Eosinophil# 0.15 X10^3/uL; Eosinophils% 2.5 % (0-5); Hematocrit 32.9 % (40-54); Hemoglobin 10.1 g/dl (13.0-16.5); Lymphocyte # 0.99 X10^3/ul (4.0); Lymphocyte % 16.2 % (19-41); Mean Corp Hgb Conc 30.7 g/gl (32-36); Mean Corpuscular Hgb 23.2 pg (27.0-32.0); Mean Corpuscular Volume 75.6 fL (80-94); Mean Platelet Vol. 8.8 fl (6.2-12.0); Monocyte# 0.44 X10^3/uL; Monocyte% 7.2 % (0-10); Neutrophil % 73.4 % (47-70); Platelet Count 217 K/mm3 (150-450); RBC Distribution Width CV 18.7 % (11.6-14.6); RBC Distribution Width SD 52.1 fl (35.1-43.9); Red Blood Count 4.35 M/mm3 (4.6-6.2); White Blood Count 6.1 K/mm3 (4.4-11.0)
[2018-09-07 05:51] LABS: POSITIVE COUNT NO; POSITIVE DIFFERENTIAL NO; POSITIVE MORPHOLOGY NO
[2018-09-07 06:08] LABS: Anion Gap 7 (5-15); BUN 11 mg/dL (7-18); BUN/Creat Ratio 14.5 RATIO (10-20); Calcium,Total 8.1 mg/dL (8.5-10.1); Chloride 105 mmol/L (98-107); Creatinine, Serum 0.76 mg/dL (0.70-1.30); EST Glomerular Filtration Rate 118 mL/min (>60); Est Glom Filt Rate - Afr Amer 143 mL/min (>60); Estimated Creatinine Clearance 160.35 ml/min; Glucose 112 mg/dL (74-106); Sodium Level 141 mmol/L (136-145)
--- NOTE | 2018-09-07 08:05 | PCM.WC.PN ---
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 Status: Chronic Current Visit: No Code(s): L97.922 - Non-pressure chronic ulcer of unspecified part of left lower leg with fat layer exposed (2) Chronic acquired lymphedema Status: Chronic Current Visit: No Code(s): I89.0 - Lymphedema, not elsewhere classified (3) Ulcer of left thigh Status: Chronic Current Visit: No Code(s): L97.129 - Non-pressure chronic ulcer of left thigh with unspecified severity (4) Pulmonary embolism Status: Suspected Current Visit: No Code(s): I26.99 - Other pulmonary embolism without acute cor pulmonale (5) Chronic diastolic heart failure Status: Chronic Current Visit: No Code(s): I50.32 - Chronic diastolic (congestive) heart failure (6) Super obesity Status: Chronic Current Visit: No Code(s): E66.9 - Obesity, unspecified (7) Essential (primary) hypertension Status: Chronic Current Visit: No Code(s): I10 - Essential (primary) hypertension Type of Wound Date of Service: 09/06/18 Chief Complaint: Chronic severe bilateral lower extremity swelling with two nonhealing ulcers left lower extremity. History of Wound: Mr. Bobby is a 42yo with Morbid Obesity and Chronic severe bilateral lymph edema who who presents to the wound center again for wounds of the left lower extremity. He states that his wounds have been slowly opening on his left lower extremity over the last month or so. He has been using Aquacel silver that he had left over. He states that he was previously seen at the lymphedema clinic and they told him that they could do nothing for him until after he gets his bariatric surgery. Records are not available for review at this time. He is using Desmond wraps and compression wraps to his lower extremities from the knee down for his lymphedema, but due to his anatomy is unable to wrap his thigh lymphedema which is where the ulcers are on the left lower extremity. He does note that he had attempted to have vascular studies in the past, but they are unable to be performed due to his body habitus. He denies any systemic or localized signs of infection at this time. He does state that there is some serous drainage on his dressing changes. The patient otherwise denies any fever, chills, nausea, vomiting, shortness of breath, chest pain or pressure, palpitations, orthopnea, lower extremity edema, syncope or presyncopal episodes. Progress of Wound: 09/06/18- Patient presents to the wound healing center today stating that he feels like he is going septic. He states that there has been a little bit more drainage from his wounds that are currently wrapped and that over the last couple days he has felt an increase in shortness of breath, subjective fevers, and an increase in weakness and fatigue. He states that he is going to leave and go home and call the squad to have him take him to [facility] ER. Advised patient that his vital signs are clinically stable, however if I were to call the squad he would most likely have to go to [facility] ER. Patient did walk out to the lobby and had a mechanical fall in the lobby of the wound center and the squad was called. Patient was sent to [facility] ER for further evaluation and treatment. - Physical Exam Vital Signs Temp Pulse Resp BP Pulse Ox 98.6 F 81 18 142/64 H 95 09/07/18 02:30 09/07/18 02:30 09/07/18 02:30 09/07/18 02:30 09/07/18 02:30 Assessment/Plan Clinical Impression(s) from Imaging Studies Wrist X-Ray 09/07/18 04:53 IMPRESSION: 1. Soft tissue swelling and degenerative arthropathy. 2. No definite evidence for acute fracture. If there is still clinical concern for acute fracture, follow-up radiographs in 7-10 days maybe helpful in evaluating a healing radiographically occult fracture. Electronically Signed: Emmy Tate MD at 5:51 EST , Service support , Active Problems (Last Updated 09/06/18 @ 19:32 by Dex Jose MD) Nonhealing ulcer of left lower extremity with fat layer exposed (Chronic) Chronic acquired lymphedema (Chronic) Ulcer of left thigh (Chronic) Super obesity (Chronic) Assessment: Chronic severe bilateral lymphedema. Supermorbid Obesity. Left lower extremity ulcer Plan: The patient was seen and examined at the wound center today and was updated on the plan of care.He was sent to ED due to a mechanical fall in the lobby of the wound center. Code Visit no charge, pt fell in lobby and sent to ED
--- NOTE | 2018-09-07 08:13 | PN.PCM_ITS ---
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 Status: Chronic Current Visit: No Code(s): L97.922 - Non-pressure chronic ulcer of unspecified part of left lower leg with fat layer exposed (2) Chronic acquired lymphedema Status: Chronic Current Visit: No Code(s): I89.0 - Lymphedema, not elsewhere classified (3) Ulcer of left thigh Status: Chronic Current Visit: No Code(s): L97.129 - Non-pressure chronic ulcer of left thigh with unspecified severity (4) Pulmonary embolism Status: Suspected Current Visit: No Code(s): I26.99 - Other pulmonary embolism without acute cor pulmonale (5) Chronic diastolic heart failure Status: Chronic Current Visit: No Code(s): I50.32 - Chronic diastolic (c ongestive) heart failure (6) Super obesity Status: Chronic Current Visit: No Code(s): E66.9 - Obesity, unspecified (7) Essential (primary) hypertension Status: Chronic Current Visit: No Code(s): I10 - Essential (primary) hypertension Type of Wound Date of Service: 09/06/18 Chief Complaint: Chronic severe bilateral lower extremity swelling with two nonhealing ulcers left lower extremity. History of Wound: Mr. Bobby is a 42yo with Morbid Obesity and Chronic severe bilateral lymph edema who who presents to the wound center again for wounds of the left lower extremity. He states that his wounds have been slowly opening on his left lower extremity over the last month or so. He has been using Aquacel silver that he had left over. He states that he was previously seen at the lymphedema clinic and they told him that they could do nothing for him until after he gets his bariatric surgery. Records are not available for review at this time. He is using Desmond wraps and compression wraps to his lower extremities from the knee down for his lymphedema, but due to his anatomy is unable to wrap his thigh lymphedema which is where the ulcers are on the left lower extremity. He does note that he had attempted to have vascular studies in the past, but they are unable to be performed due to his body habitus. He denies any systemic or localized signs of infection at this time. He does state that there is some serous drainage on his dressing changes. The patient otherwise denies any fever, chills, nausea, vomiting, shortness of breath, chest pain or pressure, palpitations, orthopnea, lower extremity edema, syncope or presyncopal episodes. Progress of Wound: 09/06/18- Patient presents to the wound healing center today stating that he feels like he is going septic. He states that there has been a little bit more drainage from his wounds that are currently wrapped and that over the last couple days he has felt an increase in shortness of breath, subjective fevers, and an increase in weakness and fatigue. He states that he is going to leave and go home and call the squad to have him take him to [facility] ER. Advised patient that his vital signs are clinically stable, however if I were to call the squad he would most likely have to go to [facility] ER. Patient did walk out to the lobby and had a mechanical fall in the lobby of the wound center and the squad was called. Patient was sent to [facility] ER for further evaluation and treatment. - Physical Exam Vital Signs Temp Pulse Resp BP Pulse Ox 98.6 F 81 18 142/64 H 95 09/07/18 02:30 09/07/18 02:30 09/07/18 02:30 09/07/18 02:30 09/07/18 02:30 Assessment/Plan Clinical Impression(s) from Imaging Studies Wrist X-Ray 09/07/18 04:53 IMPRESSION: 1. Soft tissue swelling and degenerative arthropathy. 2. No definite evidence for acute fracture. If there is still clinical concern for acute fracture, follow-up radiographs in 7-10 days maybe helpful in evaluating a healing radiographically occult fracture. Electronically Signed: Emmy Tate MD at 5:51 EST , Service support , Active Problems (Last Updated 09/06/18 @ 19:32 by Dex Jose MD) Nonhealing ulcer of left lower extremity with fat layer exposed (Chronic) Chronic acquired lymphedema (Chronic) Ulcer of left thigh (Chronic) Super obesity (Chronic) Assessment: Chronic severe bilateral lymphedema. Supermorbid Obesity. Left lower extremity ulcer Plan: The patient was seen and examined at the wound center today and was updated on the plan of care.He was sent to ED due to a mechanical fall in the lobby of the wound center. Code Visit no charge, pt fell in lobby and sent to ED
[2018-09-07 09:23] VITALS: BP 138/83; PULSE 71; RESP 18; TEMP 36.9; O2SAT 93
[2018-09-07 09:27] VITALS: PULSE 80
[2018-09-07] MEDS: Nystatin Powder 15gm Bottle 1 APPLIC TOPICAL ×2 (09:37→22:44)
[2018-09-07] MEDS: Furosemide 40 MG Tablet PO (09:38)
[2018-09-07] MEDS: Lisinopril 20 MG Tablet PO (09:38)
[2018-09-07] MEDS: Pantoprazole Sodium 20 MG Tablet PO (09:38)
--- NOTE | 2018-09-07 09:39 | NURSING ---
wound photo: left ruggiero
[2018-09-07] MEDS: Rivaroxaban 20 MG Tablet PO (09:40)
--- NOTE | 2018-09-07 09:40 | NURSING ---
wound photo: left medial thigh
--- NOTE | 2018-09-07 13:45 | CASEMGMT ---
LASHONDA ALVARADO Face to Face with patient for initial transition planning/care coordination assessment. LASHONDA ALVARADO introduced self and role at [facility]. Patient lying in bed, alert and oriented, family at bedside. Patient willing to participate in assessment and is able to answer all questions appropriately. Care providers, pharmacy, and demographics verified. Patient wishes to discharge home, denies need for home health at this time, inquired if patient would need HHC after discharge and RN CM instructed patient to follow-up with PCP and can assist with HHC. Patient states he has no further needs or concerns at this time. CM to follow for discharge planning needs that may arise. PCP: Elizabeth Specialists: None Preferred Pharmacy: [facility] Insurance: [employer] Prescription Benefit: [employer] Living Will/HPOA: none LNOK: Living Arrangements: Patient lives in 1 story home with no steps to enter home. Patient requires assistance from for bathing and some self care. Transportation: DME/HHC: Patient has bariatric crutches that he uses but need new rubber stoppers. RN CM called [employer] and they have extra rubber stoppers and for to bring crutches over to assist. Disposition Plan: Patient to discharge home with family support and follow-up plans in place. Pao POON, RN, CM
[2018-09-07] MEDS: Cefazolin 2 GM in 0.9% Normal Saline 100 ML IV ×2 (14:16→22:43)
[2018-09-07 15:54] VITALS: BP 137/74; PULSE 75; RESP 18; TEMP 37; O2SAT 96
[2018-09-07 16:00] VITALS: PULSE 60
--- NOTE | 2018-09-07 17:08 | PCM.PROGNOTE ---
Subjective: Patient was seen and examined today, had a in his daughter and who are in the room today. Patient has had a weight problem for quite some time, he states that he is following with a bariatric surgeon in [place] but because of recent illness is not been able to make appointments. Patient has open areas on his left leg, the wound nurse address these wounds today, the drainage grew out staph and gram-negative em. I feel at this time the patient could be managed on Ancef alone, he is afebrile, his white count has been normal. - Physical Exam General: Alert, Oriented x3, Cooperative, No apparent distress, Well developed, - - Massive obesity HEENT: Atraumatic, PERRLA, EOMI, Normocephalic Oral: Moist Mucosa Neck: Supple, Trachea Midline, Thyroid Normal Size and Texture Lungs: Clear to auscultation, Normal air movement, No rhonchi, No wheeze, No rales Cardiovascular: Regular rate, Regular Rhythm, Normal S1, Normal S2, No murmurs, No Ectopic Activity Abdomen: Bowel Sounds Present, Soft, Non Tender, Non-Distended, Obese Extremities: Capillary Refill Less than 3 Seconds, - - Severe lymphedema of both legs, there are open wound areas on the patient's left leg as described by the wound care nurse, this examiner did not unwrap the patient's left leg to examine the infected areas. Skin: Ulcer/ Wound - Open areas over the patient's left leg including left upper and lower legs Neurological: Cranial nerves II-XII grossly intact, Neuro grossly intact, Sensory exam intact to light touch and pain, Coordination normal Psych/Mental Status: Normal Affect, Appropriate, Alert and oriented to time, place, person, mood and affect Vital Signs Temp Pulse Resp BP Pulse Ox 98.6 F 60 18 137/74 H 96 09/07/18 15:54 09/07/18 16:00 09/07/18 15:54 09/07/18 15:54 09/07/18 15:54 Oxygen Flow Rate (L/min) 3 Oxygen Delivery Method Room Air Weight: 297.103 kg Body Mass Index (BMI) 75.6 Intake and Output for Last 24 Hours 09/05/18 09/06/18 09/07/18 23:59 23:59 23:59 Intake Total 1440 / 1440 Output Total 3350 / 3350 Balance -1910 / -1910 Microbiology Past 72 Hours 09/06/18 19:08 Gram Stain - Final Wound Drainage - Leg Wound Culture - Preliminary Gram negative em Staphylococcus aureus Laboratory Tests Past 24 Hrs 09/06/18 09/06/18 09/06/18 16:45 16:45 16:45 WBC 6.2 RBC 4.55 L Hgb 10.6 L Hct 33.8 L MCV 74.3 L MCH 23.3 L MCHC 31.4 L RDW 18.6 H RDW Differential 50.0 H Plt Count 236 MPV 9.0 Immature Gran % (Auto) 0.500 Neut % (Auto) 74.7 H Lymph % (Auto) 12.7 L [place] % (Auto) 9.6 Eos % (Auto) 2.2 Baso % (Auto) 0.3 Absolute Neuts (auto) 4.7 Absolute Lymphs (auto) 0.79 L Total Counted Not Reportable Sodium 139 Potassium 4.2 Chloride 104 Carbon Dioxide 31.0 Anion Gap 4 L BUN 12 Creatinine 0.88 Estim Creat Clear Calc 138.48 Est GFR (MDRD) Af Amer 121 Est GFR (MDRD) Non-Af 100 BUN/Creatinine Ratio 13.6 Glucose 91 Lactic Acid 1.2 Calcium 8.3 L S.aureus Protein A PCR MRSA (PCR) 09/06/18 09/07/18 09/07/18 20:45 05:34 05:34 WBC 6.1 RBC 4.35 L Hgb 10.1 L Hct 32.9 L MCV 75.6 L MCH 23.2 L MCHC 30.7 L RDW 18.7 H RDW Differential 52.1 H Plt Count 217 MPV 8.8 Immature Gran % (Auto) 0.200 Neut % (Auto) 73.4 H Lymph % (Auto) 16.2 L [place] % (Auto) 7.2 Eos % (Auto) 2.5 Baso % (Auto) 0.5 Absolute Neuts (auto) 4.5 Absolute Lymphs (auto) 0.99 Total Counted Not Reportable Sodium 141 Potassium 4.0 Chloride 105 Carbon Dioxide 29.0 Anion Gap 7 BUN 11 Creatinine 0.76 Estim Creat Clear Calc 160.35 Est GFR (MDRD) Af Amer 143 Est GFR (MDRD) Non-Af 118 BUN/Creatinine Ratio 14.5 Glucose 112 H Lactic Acid Calcium 8.1 L S.aureus Protein A PCR POSITIVE H MRSA (PCR) Negative Medical Necessity - Tobacco Use Smoking Status: Former smoker Tobacco Use: Cigarettes, Chew Assessment/Plan #1 cellulitis of the left leg-methicillin sensitive staph aureus and unidentified gram-negative em-I talked to the patient today about his allergy to penicillin, he states this was told to him when he was very young and he does not know any details about this and does not believe he ever had a serious reaction from penicillin. I asked him to talk with his mother about whether he can take penicillin or not. #2 super morbid obesity #3 serious lower extremity lymphedema #4 chronic diastolic congestive heart failure #5 essential hypertension #6 suspected pulmonary embolism-it appears that recently patient was started on Xarelto, because of his body habitus, he could not undergo any testing for pulmonary embolism. Patient will remain on Xarelto for now #7 suspected noncompliance with bariatric surgery [id number] states that he has seen the patient in [place] concerning bariatric surgery but every time he gets ready for an appointment he has a medical problem. I am skeptical that the patient is not following through with his appointments. Code Visit Inpatient E&M: 15308 Subs Hosp L2
[2018-09-07] MEDS: Atorvastatin Calcium 40 MG Tablet PO (22:43)
[2018-09-07 22:50] VITALS: BP 139/59; PULSE 81; RESP 18; TEMP 36.9; O2SAT 94
[2018-09-07] MEDS: oxyCODONE 5 MG Tablet PO (23:07)
[2018-09-08 03:54] VITALS: BP 144/81; PULSE 72; RESP 18; TEMP 36.6; O2SAT 95
[2018-09-08] MEDS: Cefazolin 2 GM in 0.9% Normal Saline 100 ML IV (06:21)
[2018-09-08] MEDS: Rivaroxaban 20 MG Tablet PO (08:15)
[2018-09-08 09:40] VITALS: BP 152/93; PULSE 74; RESP 16; TEMP 36.6; O2SAT 95
[2018-09-08] MEDS: Nystatin Powder 15gm Bottle 1 APPLIC TOPICAL (09:44)
[2018-09-08] MEDS: Lisinopril 20 MG Tablet PO (09:45)
[2018-09-08] MEDS: Sertraline 50 MG Tablet 150 MG PO (09:45)
[2018-09-08] MEDS: Pantoprazole Sodium 20 MG Tablet PO (09:45)
--- NOTE | 2018-09-08 11:48 | DCINST_ITS ---
- Discharge Diagnoses Current Active Problems: Current Active and Chronic Problems (Last Updated 09/06/18 @ 19:32 by Dex Jose MD) Nonhealing ulcer of left lower extremity with fat layer exposed (Chronic) Chronic acquired lymphedema (Chronic) Ulcer of left thigh (Chronic) Super obesity (Chronic) You will use the following diet at home:: No restrictions Your food should be the consistency of: Regular Your liquids should be the consistency of: Regular/Thin Discharge Activity: Return to Normal Activity Weight Bearing Status: Full weight bearing Additional Instructions: Continue present wound care to both leg wound areas Allergies/Adverse Reactions: Allergies Penicillins Allergy (Verified 08/15/18 15:12) Unknown Medications to take at Discharge ALPRAZolam [Xanax] 0.125 mg PO TID PRN PRN 11/02/17 Atorvastatin Calcium [Lipitor] 40 mg PO QHS 09/06/18 Furosemide 40 mg PO DAILY 09/06/18 Lisinopril 20 mg PO DAILY 09/06/18 Omeprazole 20 mg PO DAILY 09/06/18 Rivaroxaban [Xarelto] 20 mg PO DAILY 09/06/18 Sertraline HCl [Zoloft] 150 mg PO DAILY 09/06/18 Acetaminophen [Tylenol Tablet] 650 mg PO Q6H PRN PRN tablet 09/08/18 Cefdinir [Omnicef [equiv]] 300 mg PO BID #28 capsule 09/08/18 Furosemide [Lasix] 40 mg PO DAILY tablet 09/08/18 Nystatin Powder [Mycostatin Powder] 1 applic TOPICAL BID #1 bottle 09/08/18 Rivaroxaban [Xarelto] 20 mg PO DAILYCM tablet 09/08/18 The following prescriptions were given: Cefdinir [Omnicef [equiv]] 300 mg PO BID #28 capsule Nystatin Powder [Mycostatin Powder] 1 applic TOPICAL BID #1 bottle Primary Care Physician: Brian Johnson MD [Primary Care Provider] - Please follow up with your Primary Care Physician in: in 1-2 weeks Test Results: Test results from this visit will be discussed in further detail at your follow- up appointment, if applicable. Please Follow Up With: wound center When: within 7-10 days
--- NOTE | 2018-09-09 18:51 | PCM.DC.SUM ---
Discharge Date and Diagnosis Date of Admission: 09/06/18 Date of Discharge: 09/08/18 - Primary Discharge Diagnosis #1 cellulitis of the left leg-methicillin sensitive staph aureus and gram-negative em suspected to be Proteus #2 super morbid obesity #3 Severe lower extremity lymphedema #4 chronic diastolic congestive heart failure #5 essential hypertension #6 suspected recent pulmonary embolism-present on admission #7 suspected noncompliance - Secondary Discharge Diagnosis Chronic Problems (Last Updated 09/06/18 @ 19:32 by Dex Jose MD) Nonhealing ulcer of left lower extremity with fat layer exposed (Chronic) Chronic acquired lymphedema (Chronic) Ulcer of left thigh (Chronic) Chronic diastolic heart failure (Chronic) Super obesity (Chronic) Essential (primary) hypertension (Chronic) Hospital Course and Treatment Consultations 09/06/18 20:11 Consult: Onc/Wound/[place] seamer Routine Comment: Operations: None Procedures: None Summary of Care Provided: The patient is a 43 year old M who was seen in the emergency room at [facility] with complaints of increased drainage from wound areas on his left leg. Patient had been seen at the wound care center for ongoing care. Wound care center sent the patient to the ER for evaluation and possible admission. Examination in the emergency room included labs which showed a normal white blood cell count on his CBC, hemoglobin was 10.6, chemistry studies were normal. Lactic acid was normal. Blood cultures were obtained. Examination of the patient's legs revealed severe lymphedema bilaterally, there were some draining areas on the patient's left upper and left lower leg. Patient was admitted for left lower extremity cellulitis, he was treated with IV antibiotics, cultures were positive for methicillin sensitive staph aureus and a gram-negative em felt to be Proteus. Patient was seen by the wound care nurse. On 09/08/18, patient was seen and examined: On examination he appeared in good health and spirits. Vital signs as documented. Skin warm and dry and without overt rashes. Neck without JVD. Lungs clear. Heart exam notable for regular rhythm, normal sounds and absence of murmurs, rubs or gallops. Abdomen unremarkable and without evidence of organomegaly, masses, or abdominal aortic enlargement-patient is super obese. Extremities-severe lymphedematous changes are noted over patient's legs, there are 2 open areas on the patient's left thigh and left lower leg which are covered with dressing. Neuro: Cranial nerves II through XII are grossly intact, no focal motor deficits were noted. Psych: Patient was alert and oriented x3, he did not seem depressed or anxious. On 09/08/18, patient was seen and examined felt to be in stable condition for discharge home - Physical Exam Vital Signs Temp Pulse Resp BP Pulse Ox 97.9 F 74 16 152/93 H 95 09/08/18 09:40 09/08/18 09:40 09/08/18 09:40 09/08/18 09:40 09/08/18 09:40 Oxygen Flow Rate (L/min) 3 Oxygen Delivery Method Room Air Weight: 297.103 kg Body Mass Index (BMI) 75.6 Intake and Output for Last 24 Hours 09/07/18 09/08/18 09/09/18 23:59 23:59 23:59 Intake Total 1440 / 1440 915 / 915 Output Total 3350 / 3350 1425 / 1425 Balance -1910 / -1910 -510 / -510 Microbiology Past 72 Hours 09/06/18 19:08 Gram Stain - Final Wound Drainage - Leg Wound Culture - Preliminary Staphylococcus aureus Gram negative em Gram negative em#2 Anaerobic Culture - Preliminary Checking for anaerobes, further studies to follow. 09/06/18 16:45 Blood Culture - Preliminary Blood Culture (Wb) - Left Hand No growth in 48 hours. 09/06/18 16:45 Blood Culture - Preliminary Blood Culture (Wb) - Venous Discharge Activity: Return to Normal Activity Weight Bearing Status: Full weight bearing Home Medications: Medications to take at Discharge ALPRAZolam [Xanax] 0.125 mg PO TID PRN PRN 11/02/17 Atorvastatin Calcium [Lipitor] 40 mg PO QHS 09/06/18 Furosemide 40 mg PO DAILY 09/06/18 Lisinopril 20 mg PO DAILY 09/06/18 Omeprazole 20 mg PO DAILY 09/06/18 Rivaroxaban [Xarelto] 20 mg PO DAILY 09/06/18 Sertraline HCl [Zoloft] 150 mg PO DAILY 09/06/18 Acetaminophen [Tylenol Tablet] 650 mg PO Q6H PRN PRN tablet 09/08/18 Cefdinir [Omnicef [equiv]] 300 mg PO BID #28 capsule 09/08/18 Furosemide [Lasix] 40 mg PO DAILY tablet 09/08/18 Nystatin Powder [Mycostatin Powder] 1 applic TOPICAL BID #1 bottle 09/08/18 Rivaroxaban [Xarelto] 20 mg PO DAILYCM tablet 09/08/18 Following Prescrptions Were Given to Patient: Cefdinir [Omnicef [equiv]] 300 mg PO BID #28 capsule Nystatin Powder [Mycostatin Powder] 1 applic TOPICAL BID #1 bottle Primary Care Physician: Brian Johnson MD [Primary Care Provider] - Please follow up with your Primary Care Physician in: in 1-2 weeks Please Follow Up With: wound center When: within 7-10 days Disposition: Home Minutes spent on discharge:: 32 Patient Condition:: Stable Medical Necessity - Tobacco Use Smoking Status: Former smoker Tobacco Use: Cigarettes, Chew Meaningful Use Info Meaningful Use Diagnoses (Choose all that apply): None applicable Code Visit Inpatient E&M: 75985 Disch Hosp
--- NOTE | 2018-09-09 18:56 | DS.PCM_ITS ---
Discharge Date and Diagnosis Date of Admission: 09/06/18 Date of Discharge: 09/08/18 - Primary Discharge Diagnosis #1 cellulitis of the left leg-methicillin sensitive staph aureus and gram- negative em suspected to be Proteus #2 super morbid obesity #3 Severe lower extremity lymphedema #4 chronic diastolic congestive heart failure #5 essential hypertension #6 suspected recent pulmonary embolism-present on admission #7 suspected noncompliance - Secondary Discharge Diagnosis Chronic Problems (Last Updated 09/06/18 @ 19:32 by Dex Jose MD) Nonhealing ulcer of left lower extremity with fat layer exposed (Chronic) Chronic acquired lymphedema (Chronic) Ulcer of left thigh (Chronic) Chronic diastolic heart failure (Chronic) Super obesity (Chronic) Essential (primary) hypertension (Chronic) Hospital Course and Treatment Consultations 09/06/18 20:11 Consult: Onc/Wound/boat tester Routine Comment: Operations: None Procedures: None Summary of Care Provided: The patient is a 43 year old M who was seen in the emergency room at [facility] with complaints of increased drainage from wound areas on his left leg. Patient had been seen at the wound care center for ongoing care. Wound care center sent the patient to the ER for evaluation and possible admission. Examination in the emergency room included labs which showed a normal white blood cell count on his CBC, hemoglobin was 10.6, chemistry studies were normal. Lactic acid was normal. Blood cultures were obtained. Examinati on of the patient's legs revealed severe lymphedema bilaterally, there were some draining areas on the patient's left upper and left lower leg. Patient was admitted for left lower extremity cellulitis, he was treated with IV antibiotics, cultures were positive for methicillin sensitive staph aureus and a gram-negative em felt to be Proteus. Patient was seen by the wound care nurse. On 09/08/18, patient was seen and examined: On examination he appeared in good health and spirits. Vital signs as documented. Skin warm and dry and without overt rashes. Neck without JVD. Lungs clear. Heart exam notable for regular rhythm, normal sounds and absence of murmurs, rubs or gallops. Abdomen unremarkable and without evidence of organomegaly, masses, or abdominal aortic enlargement-patient is super obese. Extremities-severe lymphedematous changes are noted over patient's legs, there are 2 open areas on the patient's left thigh and left lower leg which are covered with dressing. Neuro: Cranial nerves II through XII are grossly intact, no focal motor deficits were noted. Psych: Patient was alert and oriented x3, he did not seem depressed or anxious. On 09/08/18, patient was seen and examined felt to be in stable condition for discharge home - Physical Exam Vital Signs Temp Pulse Resp BP Pulse Ox 97.9 F 74 16 152/93 H 95 09/08/18 09:40 09/08/18 09:40 09/08/18 09:40 09/08/18 09:40 09/08/18 09:40 Oxygen Flow Rate (L/min) 3 Oxygen Delivery Method Room Air Weight: 297.103 kg Body Mass Index (BMI) 75.6 Intake and Output for Last 24 Hours 09/07/18 09/08/18 09/09/18 23:59 23:59 23:59 Intake Total 1440 / 1440 915 / 915 Output Total 3350 / 3350 1425 / 1425 Balance -1910 / -1910 -510 / -510 Microbiology Past 72 Hours 09/06/18 19:08 Gram Stain - Final Wound Drainage - Leg Wound Culture - Preliminary Staphylococcus aureus Gram negative em Gram negative em#2 Anaerobic Culture - Preliminary Checking for anaerobes, further studies to follow. 09/06/18 16:45 Blood Culture - Preliminary Blood Culture (Wb) - Left Hand No growth in 48 hours. 09/06/18 16:45 Blood Culture - Preliminary Blood Culture (Wb) - Venous Discharge Activity: Return to Normal Activity Weight Bearing Status: Full weight bearing Home Medications: Medications to take at Discharge ALPRAZolam [Xanax] 0.125 mg PO TID PRN PRN 11/02/17 Atorvastatin Calcium [Lipitor] 40 mg PO QHS 09/06/18 Furosemide 40 mg PO DAILY 09/06/18 Lisinopril 20 mg PO DAILY 09/06/18 Omeprazole 20 mg PO DAILY 09/06/18 Rivaroxaban [Xarelto] 20 mg PO DAILY 09/06/18 Sertraline HCl [Zoloft] 150 mg PO DAILY 09/06/18 Acetaminophen [Tylenol Tablet] 650 mg PO Q6H PRN PRN tablet 09/08/18 Cefdinir [Omnicef [equiv]] 300 mg PO BID #28 capsule 09/08/18 Furosemide [Lasix] 40 mg PO DAILY tablet 09/08/18 Nystatin Powder [Mycostatin Powder] 1 applic TOPICAL BID #1 bottle 09/08/18 Rivaroxaban [Xarelto] 20 mg PO DAILYCM tablet 09/08/18 Following Prescrptions Were Given to Patient: Cefdinir [Omnicef [equiv]] 300 mg PO BID #28 capsule Nystatin Powder [Mycostatin Powder] 1 applic TOPICAL BID #1 bottle Primary Care Physician: Brian Johnson MD [Primary Care Provider] - Please follow up with your Primary Care Physician in: in 1-2 weeks Please Follow Up With: wound center When: within 7-10 days Disposition: Home Minutes spent on discharge:: 32 Patient Condition:: Stable Medical Necessity - Tobacco Use Smoking Status: Former smoker Tobacco Use: Cigarettes, Chew Meaningful Use Info Meaningful Use Diagnoses (Choose all that apply): None applicable Code Visit Inpatient E&M: 72433 Disch Hosp
== END 2018-09-08 16:36 | disposition home or self-care (01) | DRG 383 ==
LOC: ED 17:36 → MS3 19:25
PROVIDERS: Admitting Provider Hospitalist; Emergency Provider Emergency Medicine; Family Provider Internal Medicine; PCP Internal Medicine; Visit Provider Internal Medicine
DX: L03.116 Cellulitis of left lower limb (principal); E66.01 Morbid (severe) obesity due to excess calories; Z68.45 Body mass index [BMI] 70 or greater, adult; I89.0 Lymphedema, not elsewhere classified; I50.32 Chronic diastolic (congestive) heart failure; D64.9 Anemia, unspecified; I11.0 Hypertensive heart disease with heart failure; F32.9 Major depressive disorder, single episode, unspecified; B95.61 Methicillin susceptible Staphylococcus aureus infection as the cause of diseases classified elsewhere; B96.4 Proteus (mirabilis) (morganii) as the cause of diseases classified elsewhere; L97.922 Non-pressure chronic ulcer of unspecified part of left lower leg with fat layer exposed; L97.129 Non-pressure chronic ulcer of left thigh with unspecified severity; Z79.01 Long term (current) use of anticoagulants; Z79.899 Other long term (current) drug therapy; Z86.711 Personal history of pulmonary embolism; Z72.0 Tobacco use
CPT/HCPCS: 36415; 73110; 80048; 83605; 85025; 87040; 87070; 87075; 87077; 87186; 87205; 87640; 97162; 97165; 97530; 99218; 99283; J7030; A4216; G0378

== ENCOUNTER 2018-10-04 13:30 | Outpatient (RCR) | payer MEDICAID, SELFPAY ==
[2018-09-11 00:26] VITALS: BP 151/95; PULSE 87; RESP 20; TEMP 36.6; BMI 75.9
[2018-10-04 13:57] VITALS: BP 135/75; PULSE 87; RESP 18; TEMP 36.5; BMI 75.9
--- NOTE | 2018-10-05 16:25 | PN.PCM_ITS ---
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 Status: Chronic Current Visit: Yes Code(s): L97.922 - Non-pressure chronic ulcer of unspecified part of left lower leg with fat layer exposed Comment: left anterior lower leg (3) Chronic acquired lymphedema Status: Chronic Current Visit: Yes Code(s): I89.0 - Lymphedema, not elsewhere classified (4) Chronic diastolic heart failure Status: Chronic Current Visit: Yes Code(s): I50.32 - Chronic diastolic (congestive) heart failure (5) Super obesity Status: Chronic Current Visit: Yes Code(s): E66.9 - Obesity, unspecified Type of Wound Date of Service: 10/04/18 Chief Complaint: Chronic severe bilateral lower extremity swelling with two nonhealing ulcers left lower extremity. History of Wound: Mr. Bobby is a 42yo with Morbid Obesity and Chronic severe bilateral lymph edema who who presents to the wound center again for wounds of the left lower extremity. He states that his wounds have been slowly opening on his left lower extremity over the last month or so. He has been using Aquacel silver that he had left over. He states that he was previously seen at the lymphedema clinic and they told him that they could do nothing for him until after he gets his bariatric surgery. Records are not available for review at this time. He is using Desmond wraps and compression wraps to his lower extremities from the knee down for his lymphedema, but due to his anatomy is unable to wrap his thigh lymphedema which is where the ulcers are on the left lower extremity. He does note that he had attempted to have vascular studies in the past, but they are unable to be performed due to his body habitus. He denies any systemic or localized signs of infection at this time. He does state that there is some serous drainage on his dressing changes. The patient otherwise denies any fever, chills, nausea, vomiting, shortness of breath, chest pain or pressure, palpitations, orthopnea, lower extremity edema, syncope or presyncopal episodes. Progress of Wound: Patient no showed to the last couple of appointments, was recently in the hospital for cellulitus of the left lower extremity from 09/06/18-09/08/18. States he completed his course of antibiotics he was on and denies any signs of infection at this time. Does have superficial wounds to his left anterior and posterior thigh and left anterior lower extremity. - Physical Exam Vital Signs Temp Pulse Resp BP 97.7 F L 87 18 135/75 H 10/04/18 13:57 10/04/18 13:57 10/04/18 13:57 10/04/18 13:57 General: Alert, Oriented x3, Cooperative, No apparent distress HEENT: Atraumatic Lungs: Normal air movement Cardiovascular: Regular rate Abdomen: Soft, Non Tender, Non-Distended, Obese Extremities: No clubbing, No cyanosis, Edema - severe bilateral lymphedema Skin: Ulcer/ Wound - ulcers to left posterior and anterior thigh and anterior lower leg with adherant slough, no signs of infection Wound Measurements and Assessment WC - Nurse 1 - General Ulcer Measurement Start: 10/04/18 13:57 Freq: Status: Active Protocol: Activity Type Activity Date Activity User E-Sign Co-Sign Detail Recorded Client Recorded Date Recorded By Document 10/04/18 13:57 DV [id number] 10/04/18 14:32 DV 10/04/18 13:57 Wound Center Nurse 1 [Ulcer Assessment] #7 Left Lucio Cluster -Combined with other wound No -Current Size (cm) - Length 9.4 -Current Size (cm) - Width 3.2 -Current Size (cm) - Depth 0.1 -Total Square Cm 30.08 -Photo Taken Yes -Epithelialization None Present -Tunneling No -Undermining/Tunneling No -Circular Undermining No -Classification - Thickness Full Thickness without Exposed Support Structure -Exudate Amt Small -Exudate Type Yellow/Green -Wound Margin Indistinct, Non -Visible -Texture (Josephine-wound Skin Appearance) Assessed Localized Edema Scarring Rash -Moisture (Josephine-wound Skin Appearance Assessed ) Weeping -Color (Josephine-wound Skin Appearance) Assessed Erythema Mottled -Temperature (Josephine-wound Skin No Abnormality Appearance) (Pt Warm) -Tenderness on Palpation (Josephine-wound No Skin Appearance) -Ulcer Cleansing Rinsed/ Irrigated with Saline -Foul Odor after Cleansing No -Anesthetic Used 4% Lidocaine Solution #6 LEFT ANT. THIGH -Combined with other wound No -Current Size (cm) - Length 2.4 -Current Size (cm) - Width 2.4 -Current Size (cm) - Depth 0.1 -Total Square Cm 5.76 -Photo Taken No -Epithelialization None Present -Tunneling No -Undermining/Tunneling No -Circular Undermining No -Classification - Thickness Full Thickness without Exposed Support Structure -Exudate Amt None Present -Wound Margin Indistinct, Non -Visible -Granulation Amt None Present (0 %) -Granulation Quality N/A -Slough/Fibrin No -Necrosis Amt Large (67-100%) -Necrotic Tissue Type Adherent Slough -Structure Exposed None/Limited to Skin Breakdown -Texture (Josephine-wound Skin Appearance) Assessed Localized Edema Scarring Rash -Moisture (Josephine-wound Skin Appearance Assessed ) Weeping Dry/Scaly -Color (Josephine-wound Skin Appearance) Assessed Erythema Mottled -Temperature (Josephine-wound Skin No Abnormality Appearance) (Pt Warm) -Tenderness on Palpation (Josephine-wound No Skin Appearance) -Ulcer Cleansing Rinsed/ Irrigated with Saline -Foul Odor after Cleansing No -Anesthetic Used 4% Lidocaine Solution #4 LEFT POST. THIGH -Combined with other wound No -Current Size (cm) - Length 2.8 -Current Size (cm) - Width 0.4 -Current Size (cm) - Depth 0.5 -Total Square Cm 1.12 -Photo Taken No -Epithelialization None Present -Tunneling No -Undermining/Tunneling No -Circular Undermining No -Classification - Thickness Full Thickness without Exposed Support Structure -Exudate Amt Small -Wound Margin Indistinct, Non -Visible -Granulation Amt None Present (0 %) -Granulation Quality N/A -Slough/Fibrin Yes -Necrosis Amt Large (67-100%) -Necrotic Tissue Type Adherent Slough -Structure Exposed None/Limited to Skin Breakdown -Texture (Josephine-wound Skin Appearance) Assessed Scarring -Moisture (Josephine-wound Skin Appearance Assessed ) Weeping Dry/Scaly -Color (Josephine-wound Skin Appearance) No Abnormality Assessed -Temperature (Josephine-wound Skin No Abnormality Appearance) (Pt Warm) -Ulcer Cleansing Rinsed/ Irrigated with Saline -Foul Odor after Cleansing Yes -Anesthetic Used 4% Lidocaine Solution [Edema Assessment] -Lower Limb Edema Present Yes -Left Calf (cm) 84.4 -Left Ankle (cm) 55.7 WC - Nurse 2 - General Ulcer CM Notes Start: 10/04/18 13:57 Freq: Status: Active Protocol: Activity Type Activity Date Activity User E-Sign Co-Sign Detail Recorded Client Recorded Date Recorded By Document 10/04/18 14:38 [id number] 10/04/18 14:48 10/04/18 14:38 Wound Center Nurse 2 [Procedure/Treatment] #7 Left Lucio Cluster -Time 14:39 -Correct Patient Yes -Correct Side, Site, Position Yes -Correct Procedure Yes -Procedure Performed Yes -Type of Procedure Debridement -Clinical Debridement Subcutaneous -Post Debridement Size (cm) - Length 9.4 -Post Debridement Size (cm) - Width 3.2 -Post Debridement Size (cm) - Depth 0.1 -Total Square Cm 30.08 -Wound/Ulcer Outcome Not Healed -Ulcer Cleansing Not Cleansed -Foul Odor after Cleansing No -Bioengineered Tissue No -Bleeding Controlled with NA -Offloading No -Treatment Response Procedure Tolerated Well #6 LEFT ANT. THIGH -Time 14:40 -Correct Patient Yes -Correct Side, Site, Position Yes -Correct Procedure Yes -Procedure Performed Yes -Type of Procedure Debridement -Clinical Debridement Subcutaneous -Post Debridement Size (cm) - Length 2.4 -Post Debridement Size (cm) - Width 2.4 -Post Debridement Size (cm) - Depth 0.1 -Total Square Cm 5.76 -Wound/Ulcer Outcome Not Healed -Ulcer Cleansing Not Cleansed -Foul Odor after Cleansing No -Bioengineered Tissue No -Bleeding Controlled with NA -Offloading No -Treatment Response Procedure Tolerated Well #5 LEFT POST. THIGH -Ulcer Cleansing Not Cleansed -Foul Odor after Cleansing No -Bioengineered Tissue No -Bleeding Controlled with NA -Offloading No -Treatment Response Procedure Tolerated Well [See Physician Procedure note for Specifics] Pain Scale: 0-10 Numeric [Pain] -Is Patient Pain Free? Yes Neurological: Neuro grossly intact Psych/Mental Status: Normal Affect, Appropriate, Alert and oriented to time, pl desmond, person, mood and affect Debridement Note Post-Debridement Measurements/Treatment WC - Nurse 2 - General Ulcer CM Notes Start: 10/04/18 13:57 Freq: Status: Active Protocol: Activity Type Activity Date Activity User E-Sign Co-Sign Detail Recorded Client Recorded Date Recorded By Document 10/04/18 14:38 [id number] 10/04/18 14:48 10/04/18 14:38 Wound Center Nurse 2 #7 Left Lucio Cluster -Time 14:39 -Correct Patient Yes -Correct Side, Site, Position Yes -Correct Procedure Yes -Procedure Performed Yes -Type of Procedure Debridement -Clinical Debridement Subcutaneous -Post Debridement Size (cm) - Length 9.4 -Post Debridement Size (cm) - Width 3.2 -Post Debridement Size (cm) - Depth 0.1 -Total Square Cm 30.08 -Wound/Ulcer Outcome Not Healed -Ulcer Cleansing Not Cleansed -Foul Odor after Cleansing No -Bioengineered Tissue No -Bleeding Controlled with NA -Offloading No -Treatment Response Procedure Tolerated Well #6 LEFT ANT. THIGH -Time 14:40 -Correct Patient Yes -Correct Side, Site, Position Yes -Correct Procedure Yes -Procedure Performed Yes -Type of Procedure Debridement -Clinical Debridement Subcutaneous -Post Debridement Size (cm) - Length 2.4 -Post Debridement Size (cm) - Width 2.4 -Post Debridement Size (cm) - Depth 0.1 -Total Square Cm 5.76 -Wound/Ulcer Outcome Not Healed -Ulcer Cleansing Not Cleansed -Foul Odor after Cleansing No -Bioengineered Tissue No -Bleeding Controlled with NA -Offloading No -Treatment Response Procedure Tolerated Well #5 LEFT POST. THIGH -Ulcer Cleansing Not Cleansed -Foul Odor after Cleansing No -Bioengineered Tissue No -Bleeding Controlled with NA -Offloading No -Treatment Response Procedure Tolerated Well Pain Scale: 0-10 Numeric Is Patient Pain Free? Yes Wound debrided: left anterior and posterior thigh Laterality: Left Type of Debridement: Excisional debridement Anesthesia Used: 5% Lidocaine Gel Depth: in the subcutaneous layer Percentage of wound debrided: 100 Instrument Used: 7mm curette Tissue Removed: slough and devitalized tissue Severity: Fat Layer Exposed Amount of bleeding with debridement: Mild Bleeding Controlled with: Pressure Patient tolerated procedure well - Additional Wound Wound debrided: left anterior lower extremity Laterality: Left Type of Debridement: Excisional debridement Anesthesia Used: 5% Lidocaine Gel Depth: in the subcutaneous layer Percentage of wound debrided: 100 Instrument Used: 7mm curette Tissue Removed: slough and devitalized tissue Severity: Fat Layer Exposed Amount of bleeding with debridement: Mild Bleeding Controlled with: Pressure Patient tolerated procedure: Patient tolerated procedure well Assessment/Plan Active Problems (Last Updated 09/06/18 @ 19:32 by Dex Jose MD) Nonhealing ulcer of left lower extremity with fat layer exposed (Chronic) left anterior lower leg Chronic acquired lymphedema (Chronic) Ulcer of left thigh (Chronic) anterior and posterior thigh Chronic diastolic heart failure (Chronic) Super obesity (Chronic) Assessment: Chronic severe bilateral lymphedema. Supermorbid Obesity. Left lower extremity ulcer Plan: The patient was seen and examined at the wound center today and was updated on the plan of care. A subcutaneous debridement was performed today. The patient tolerated the procedure well. The patients wound care will consist of: Aquacel silver dressings daily left anterior thigh and left anterior lower extremity (will apply for purraply given delayed wound healing), and santyl to the left posterior thigh given the amount of adherant slough. Patient currently denies any signs of infection at this time. For compression patient is to continue with compression stockings and Desmond wraps. Patient educated on the importance of diet on wound healing and instructed to increase protein and vitamin C intake. Patient verbalized understanding. Patient requesting new custom compression stockings for his lower legs, he states he would like to to talk to who he had measure him for it in the past and then he would have them contact us for the order. Discussed the improtance of following up with his bariatric surgeon and the lymphedema clincic. Patient will follow up at wound healing center in one week or sooner if needed. Code Visit [id number]: [id number] Margarita subq tissue 20 sq cm/<
== END 2018-10-11 23:59 ==
LOC: WC 13:30
PROVIDERS: Family Provider Internal Medicine; PCP Internal Medicine; Visit Provider Nurse Practitioner Family
DX: L97.122 Non-pressure chronic ulcer of left thigh with fat layer exposed (principal); I50.32 Chronic diastolic (congestive) heart failure; I89.0 Lymphedema, not elsewhere classified; E66.01 Morbid (severe) obesity due to excess calories; Z71.3 Dietary counseling and surveillance; L98.492 Non-pressure chronic ulcer of skin of other sites with fat layer exposed
CPT/HCPCS: 11042; 11045

== ENCOUNTER 2018-10-25 10:54 | Outpatient (RCR) | payer MEDICAID, SELFPAY ==
[2018-10-12 00:55] VITALS: BP 135/75; PULSE 87; RESP 18; TEMP 36.5
[2018-10-25 13:44] VITALS: BP 148/98; PULSE 89; RESP 18; TEMP 35; BMI 75.9
--- NOTE | 2018-10-30 10:24 | PN.PCM_ITS ---
(1) Ulcer of left thigh Status: Chronic Qualifiers: Non-pressure ulcer stage: with fat layer exposed Qualified Code(s): L97.122 - Non-pressure chronic ulcer of left thigh with fat layer exposed Code(s): L97.129 - Non-pressure chronic ulcer of left thigh with unspecified severity Comment: anterior and posterior thigh (2) Nonhealing ulcer of left lower extremity with fat layer exposed Status: Chronic Code(s): L97.922 - Non-pressure chronic ulcer of unspecified part of left lower leg with fat layer exposed Comment: left anterior lower leg (3) Chronic acquired lymphedema Status: Chronic Code(s): I89.0 - Lymphedema, not elsewhere classified (4) Chronic diastolic heart failure Status: Chronic Code(s): I50.32 - Chronic diastolic (congestive) heart failure (5) Essential (primary) hypertension Status: Chronic Code(s): I10 - Essential (primary) hypertension (6) Super obesity Status: Chronic Code(s): E66.9 - Obesity, unspecified Type of Wound Date of Service: 10/25/18 Chief Complaint: Chronic severe bilateral lower extremity swelling with two nonhealing ulcers left lower extremity. History of Wound: Mr. Bobby is a 42yo with Morbid Obesity and Chronic severe bilateral lymph edema who who presents to the wound center again for wounds of the left lower extremity. He states that his wounds have been slowly opening on his left lower extremity over the last month or so. He has been using Aquacel silver that he had left over. He states that he was previously seen at the lymphedema clinic and they told him that they could do nothing for him until after he gets his bariatric surgery. Records are not available for review at this time. He is using Desmond wraps and compression wraps to his lower extremities from the knee down for his lymphedema, but due to his anatomy is unable to wrap his thigh lymphedema which is where the ulcers are on the left lower extremity. He does note that he had attempted to have vascular studies in the past, but they are unable to be performed due to his body habitus. He denies any systemic or localized signs of infection at this time. He does state that there is some serous drainage on his dressing changes. The patient otherwise denies any fever, chills, nausea, vomiting, shortness of breath, chest pain or pressure, palpitations, orthopnea, lower extremity edema, syncope or presyncopal episodes. Progress of Wound: Does continue to have superficial ulcerations to his left anterior and posterior thigh due to his chronic lymphedema and his left anterior lower extremity ulceration has now healed. Refuses to follow up at lymphedema clinic and states that he has not followed up with his bariatric specialst yet as well. - Physical Exam Vital Signs Temp Pulse Resp BP 95 F L 89 18 148/98 H 10/25/18 13:44 10/25/18 13:44 10/25/18 13:44 10/25/18 13:44 General: Alert, Oriented x3, Cooperative, No apparent distress HEENT: Atraumatic Lungs: Clear to auscultation Cardiovascular: Regular rate Abdomen: Soft, Non Tender, Obese Extremities: No clubbing, No cyanosis, Edema - severe lower extremity lymphedema Skin: Ulcer/ Wound - ulcerations to left anterior and posterior thigh with adherant slough, draining serosanguinous discharge. No signs of infection at this time Neurological: Neuro grossly intact Psych/Mental Status: Normal Affect, Appropriate, Alert and oriented to time, place, person, mood and affect Debridement Note Post-Debridement Measurements/Treatment WC - Nurse 2 - General Ulcer CM Notes Start: 10/25/18 13:44 Freq: Status: Active Protocol: Activity Type Activity Date Activity User E-Sign Co-Sign Detail Recorded Client Recorded Date Recorded By Document 10/25/18 14:36 DV [id number] 10/25/18 14:43 DV 10/25/18 14:36 Wound Center Nurse 2 #7 Left Lucio Cluster -Time 14:37 -Correct Patient Yes -Correct Side, Site, Position Yes -Correct Procedure No -Type of Procedure Debridement -Clinical Debridement Subcutaneous -Post Debridement Size (cm) - Length 0 -Post Debridement Size (cm) - Width 0 -Post Debridement Size (cm) - Depth 0 -Total Square Cm 0 -Wound/Ulcer Outcome Healed- Epithelialized #6 LEFT ANT. THIGH -Time 14:40 -Correct Patient Yes -Correct Side, Site, Position Yes -Correct Procedure Yes -Procedure Performed Yes -Type of Procedure Debridement -Clinical Debridement Subcutaneous -Post Debridement Size (cm) - Length 0.2 -Post Debridement Size (cm) - Width 0.2 -Post Debridement Size (cm) - Depth 0.1 -Total Square Cm 0.04 -Wound/Ulcer Outcome Not Healed -Ulcer Cleansing Rinsed/ Irrigated with Saline -Foul Odor after Cleansing No -Bioengineered Tissue No -Bleeding Controlled with Pressure -Treatment Response Procedure Tolerated Well #4 LEFT POST. THIGH -Time 14:41 -Correct Patient Yes -Correct Side, Site, Position Yes -Correct Procedure Yes -Procedure Performed Yes -Type of Procedure Debridement -Clinical Debridement Subcutaneous -Post Debridement Size (cm) - Length 0.5 -Post Debridement Size (cm) - Width 1.0 -Post Debridement Size (cm) - Depth 0.1 -Total Square Cm 0.50 -Wound/Ulcer Outcome Not Healed -Ulcer Cleansing Rinsed/ Irrigated with Saline -Foul Odor after Cleansing No -Bioengineered Tissue No -Bleeding Controlled with Pressure -Offloading No -Treatment Response Procedure Tolerated Well Pain Scale: 0-10 Numeric Is Patient Pain Free? Yes Wound debrided: left anterior and posterior thigh Laterality: Left Type of Debridement: Excisional debridement Anesthesia Used: 5% Lidocaine Gel Depth: in the subcutaneous layer Percentage of wound debrided: 100 Instrument Used: 5mm curette Tissue Removed: slough and devitalized tissue Severity: Fat Layer Exposed Amount of bleeding with debridement: Mild Bleeding Controlled with: Pressure Patient tolerated procedure well Assessment/Plan Assessment: Chronic severe bilateral lymphedema. Supermorbid Obesity. Left low er extremity ulcer Plan: The patient was seen and examined at the wound center today and was updated on the plan of care. A subcutaneous debridement was performed today. The patient tolerated the procedure well. The patients wound care will consist of: Aquacel silver dressings daily left anterior and posterior thigh and left anterior lower extremity ulcer is now healed.Patient currently denies any signs of infection at this time but does state that he feels fluid overloaded and needs IV lasix, also has some complaints of orthopnea. He is currently in stable condition, but given his complaints referred to ED. For compression patient is to continue with compression stockings and Desmond wraps, discussed again following up with lymphedema clinic and bariatric surgeon. Patient educated on the importance of diet on wound healing and instructed to increase protein and vitamin C intake. Patient verbalized understanding. Patient requesting new custom compression stockings for his lower legs, he states he would like to to talk to who he had measure him for it in the past and then he would have them contact us for the order. Discussed the improtance of following up with his bariatric surgeon and the lymphedema clinic. Patient will follow up at wound healing center in two week or sooner if needed. Code Visit [id number]: [id number] Margarita subq tissue 20 sq cm/<
== END 2018-11-08 23:59 ==
LOC: WC 10:54
PROVIDERS: Family Provider Internal Medicine; PCP Internal Medicine; Visit Provider Nurse Practitioner Family
DX: L97.122 Non-pressure chronic ulcer of left thigh with fat layer exposed (principal); I89.0 Lymphedema, not elsewhere classified; I50.32 Chronic diastolic (congestive) heart failure; E66.01 Morbid (severe) obesity due to excess calories; Z68.45 Body mass index [BMI] 70 or greater, adult; Z71.3 Dietary counseling and surveillance; I11.0 Hypertensive heart disease with heart failure
CPT/HCPCS: 11042

== ENCOUNTER → 2018-11-12 10:36 | Outpatient (CLI) | payer MEDICAID, SELFPAY ==
[2018-11-12 10:10] VITALS: BMI 75.9
[2018-11-12 13:16] LABS: Anion Gap 4 (5-15); BUN 18 mg/dL (7-18); BUN/Creat Ratio 19.1 RATIO (10-20); Calcium,Total 8.6 mg/dL (8.5-10.1); Chloride 105 mmol/L (98-107); Creatinine, Serum 0.94 mg/dL (0.70-1.30); EST Glomerular Filtration Rate 92 mL/min (>60); Est Glom Filt Rate - Afr Amer 112 mL/min (>60); Glucose 107 mg/dL (74-106); Potassium 4.5 mmol/L (3.5-5.1); Sodium Level 137 mmol/L (136-145)
== END ==
PROVIDERS: Family Provider Internal Medicine; PCP Internal Medicine; Visit Provider Internal Medicine
DX: I50.9 Heart failure, unspecified (principal)
CPT/HCPCS: 36415; 80048

== ENCOUNTER 2018-11-29 14:00 | Outpatient (RCR) | payer MEDICAID, SELFPAY ==
[2018-11-09 00:46] VITALS: BP 148/98; PULSE 89; RESP 18; TEMP 35
[2018-11-29 14:13] VITALS: BP 149/84; PULSE 85; RESP 16; TEMP 36.9; BMI 75.9
--- NOTE | 2018-12-05 11:26 | PCM.WC.PN ---
(1) Ulcer of left thigh Status: Chronic Qualifiers: Code(s): L97.129 - Non-pressure chronic ulcer of left thigh with unspecified severity Comment: anterior and posterior thigh (2) Nonhealing ulcer of left lower extremity with fat layer exposed Status: Chronic Code(s): L97.922 - Non-pressure chronic ulcer of unspecified part of left lower leg with fat layer exposed Comment: left anterior lower leg (3) Chronic acquired lymphedema Status: Chronic Code(s): I89.0 - Lymphedema, not elsewhere classified (4) Chronic diastolic heart failure Status: Chronic Code(s): I50.32 - Chronic diastolic (congestive) heart failure (5) Essential (primary) hypertension Status: Chronic Code(s): I10 - Essential (primary) hypertension (6) Super obesity Status: Chronic Code(s): E66.9 - Obesity, unspecified Type of Wound Date of Service: 11/29/18 Chief Complaint: Chronic severe bilateral lower extremity swelling with two nonhealing ulcers left lower extremity. History of Wound: Mr. Bobby is a 42yo with Morbid Obesity and Chronic severe bilateral lymph edema who who presents to the wound center again for wounds of the left lower extremity. He states that his wounds have been slowly opening on his left lower extremity over the last month or so. He has been using Aquacel silver that he had left over. He states that he was previously seen at the lymphedema clinic and they told him that they could do nothing for him until after he gets his bariatric surgery. Records are not available for review at this time. He is using Desmond wraps and compression wraps to his lower extremities from the knee down for his lymphedema, but due to his anatomy is unable to wrap his thigh lymphedema which is where the ulcers are on the left lower extremity. He does note that he had attempted to have vascular studies in the past, but they are unable to be performed due to his body habitus. He denies any systemic or localized signs of infection at this time. He does state that there is some serous drainage on his dressing changes. The patient otherwise denies any fever, chills, nausea, vomiting, shortness of breath, chest pain or pressure, palpitations, orthopnea, lower extremity edema, syncope or presyncopal episodes. Progress of Wound: Patient's ulcerations are very superficial at this time and he has missed the last 4 weeks of appointments at the wound center. Patient states he has difficulty making his appointments. Refuses to follow up at lymphedema clinic and states that he has not followed up with his bariatric specialst yet as well. Denies any signs and symptoms of infection at this time. The patient otherwise denies any fever, chills, nausea, vomiting, shortness of breath, chest pain or pressure, palpitations, orthopnea, lower extremity edema, syncope or presyncopal episodes. - Physical Exam Vital Signs Temp Pulse Resp BP 98.4 F 85 16 149/84 H 11/29/18 14:13 11/29/18 14:13 11/29/18 14:13 11/29/18 14:13 General: Alert, Oriented x3, Cooperative, No apparent distress HEENT: Atraumatic Lungs: Clear to auscultation Cardiovascular: Regular rate Abdomen: Soft, Obese Extremities: Edema - Severe bilateral lower extremity lymphedema Skin: Ulcer/ Wound - Superficial ulcerations to left anterior and posterior thigh, depth only 0.1 no signs of infection at this time Neurological: Neuro grossly intact Psych/Mental Status: Normal Affect, Appropriate Debridement Note Post-Debridement Measurements/Treatment WC - Nurse 2 - General Ulcer CM Notes Start: 11/29/18 14:13 Freq: Status: Active Protocol: Activity Type Activity Date Activity User E-Sign Co-Sign Detail Recorded Client Recorded Date Recorded By Document 11/29/18 15:01 AN [id number] 11/29/18 15:09 AN 11/29/18 15:01 Wound Center Nurse 2 #6 LEFT ANT. THIGH -Time 15:03 -Correct Patient Yes -Correct Side, Site, Position Yes -Correct Procedure Yes -Procedure Performed Yes -Type of Procedure Debridement -Clinical Debridement Subcutaneous -Post Debridement Size (cm) - Length 1.0 -Post Debridement Size (cm) - Width 0.9 -Post Debridement Size (cm) - Depth 0.1 -Total Square Cm 0.90 -Wound/Ulcer Outcome Not Healed -Ulcer Cleansing Rinsed/ Irrigated with Saline -Foul Odor after Cleansing No -Bioengineered Tissue No -Bleeding Controlled with Pressure -Offloading No -Treatment Response Procedure Tolerated Well #4 LEFT POST. THIGH -Time 15:03 -Correct Patient Yes -Correct Side, Site, Position Yes -Correct Procedure Yes -Procedure Performed Yes -Type of Procedure Debridement -Clinical Debridement Subcutaneous -Post Debridement Size (cm) - Length 0.8 -Post Debridement Size (cm) - Width 0.7 -Post Debridement Size (cm) - Depth 0.1 -Total Square Cm 0.56 -Wound/Ulcer Outcome Not Healed -Ulcer Cleansing Rinsed/ Irrigated with Saline -Foul Odor after Cleansing No -Bioengineered Tissue No -Bleeding Controlled with Pressure -Offloading No -Treatment Response Procedure Tolerated Well Pain Scale: 0-10 Numeric Is Patient Pain Free? Yes Wound debrided: Left anterior and posterior superficial thigh ulcerations Laterality: Left Type of Debridement: Excisional debridement Anesthesia Used: 5% Lidocaine Gel Depth: in the subcutaneous layer Percentage of wound debrided: 100 Instrument Used: 5mm curette Tissue Removed: Slough and devitalized tissue Severity: Fat Layer Exposed Amount of bleeding with debridement: Mild Bleeding Controlled with: Pressure Patient tolerated procedure well Assessment/Plan Assessment: Chronic severe bilateral lymphedema. Supermorbid Obesity. Left lower extremity ulcer Plan: The patient was seen and examined at the wound center today and was updated on the plan of care. A subcutaneous debridement was performed today. The patient tolerated the procedure well. The patients wound care will consist of: Aquacel silver dressings daily left anterior and posterior thigh . The patient states that he has had difficulty making his appointments and has missed the last 4 weeks of appointments. His ulcerations are now very superficial and patient will more than likely continue to get new superficial ulcerations given his degree of lymphedema in his super obesity. Patient will be discharged from the wound healing center and will follow up with primary care for his wound care supply orders. Did discuss again the importance of following up with the lymphedema clinic and with his bariatric specialist. Follow-up with the wound center as needed if his superficial ulcerations worsen. Code Visit [id number]: [id number] Margarita subq tissue 20 sq cm/<
== END 2018-12-09 23:59 ==
LOC: WC 14:00
PROVIDERS: Family Provider Internal Medicine; PCP Internal Medicine; Visit Provider Nurse Practitioner Family
DX: L97.122 Non-pressure chronic ulcer of left thigh with fat layer exposed (principal); I89.0 Lymphedema, not elsewhere classified; I11.0 Hypertensive heart disease with heart failure; I50.32 Chronic diastolic (congestive) heart failure; E66.01 Morbid (severe) obesity due to excess calories; Z68.45 Body mass index [BMI] 70 or greater, adult; Z71.3 Dietary counseling and surveillance
CPT/HCPCS: 11042

== ENCOUNTER → 2018-12-12 16:47 | Outpatient (CLI) | payer MEDICAID, SELFPAY ==
[2018-12-12 15:53] VITALS: BMI 76.9
[2018-12-12 17:27] LABS: Absolute Lymphocyte Count 1.16 X10^3/ul (0.83-4.51); Absolute Neutrophil Count 6.9 X10^3/uL (2.0-7.7); Basophil# 0.02 X10^3/uL; Basophil% 0.2 % (0-1); Eosinophils% 2.2 % (0-5); Hematocrit 37.3 % (40-54); Hemoglobin 11.9 g/dl (13.0-16.5); Lymphocyte # 1.16 X10^3/ul (4.0); Mean Corp Hgb Conc 31.9 g/gl (32-36); Mean Corpuscular Hgb 22.8 pg (27.0-32.0); Mean Corpuscular Volume 71.3 fL (80-94); Mean Platelet Vol. 9.6 fl (6.2-12.0); Monocyte% 6.7 % (0-10); Neutrophil % 77.7 % (47-70); Platelet Count 408 K/mm3 (150-450); RBC Distribution Width CV 19.7 % (11.6-14.6); RBC Distribution Width SD 48.8 fl (35.1-43.9); Red Blood Count 5.23 M/mm3 (4.6-6.2); White Blood Count 8.9 K/mm3 (4.4-11.0)
[2018-12-12 17:59] LABS: POSITIVE COUNT NO; POSITIVE DIFFERENTIAL NO; POSITIVE MORPHOLOGY NO
[2018-12-12 18:00] LABS: Anion Gap 7 (5-15); BUN 14 mg/dL (7-18); BUN/Creat Ratio 13.6 RATIO (10-20); Calcium,Total 8.8 mg/dL (8.5-10.1); Chloride 104 mmol/L (98-107); Creatinine, Serum 1.03 mg/dL (0.70-1.30); EST Glomerular Filtration Rate 83 mL/min (>60); Est Glom Filt Rate - Afr Amer 101 mL/min (>60); Glucose 94 mg/dL (74-106); Potassium 4.3 mmol/L (3.5-5.1); Sodium Level 136 mmol/L (136-145)
[2018-12-12 18:05] LABS: BNP,B-Type NATRIURETIC PEPTIDE 62.7 pg/mL (0-100)
== END ==
PROVIDERS: Family Provider Internal Medicine; PCP Internal Medicine; Referring Provider Nurse Practitioner Family; Visit Provider Nurse Practitioner Family
DX: R06.09 Other forms of dyspnea (principal); I11.0 Hypertensive heart disease with heart failure; I50.32 Chronic diastolic (congestive) heart failure
CPT/HCPCS: 36415; 80048; 83880; 85025

== ENCOUNTER 2019-03-19 09:56 | Observation (INO) | payer MEDICAID, SELFPAY ==
[2019-03-05 09:45] VITALS: BMI 76.9
[2019-03-19] VITALS (17 sets, daily range): BP systolic 121–139; BP diastolic 44–66; PULSE 72–79; RESP 16–24; TEMP 36.8–37.1; O2SAT 92–97; BMI 75.9; BMI 76.0
--- NOTE | 2019-03-19 10:00 | NURSING ---
NO OLD EKGS
--- NOTE | 2019-03-19 10:46 | EKG12_ITS ---
Test Reason : CP ADM Blood Pressure : / mmHG Vent. Rate : 076 BPM Atrial Rate : 076 BPM P-R Int : 218 ms QRS Dur : 122 ms QT Int : 426 ms P-R-T Axes : 045 033 029 degrees QTc Int : 479 ms Sinus rhythm with 1st degree A-V block RSR' or QR pattern in V1 suggests right ventricular conduction delay Borderline ECG No previous ECGs available Confirmed by KAVON VASQUEZ ([id number]), legal editor MANJINDER FRANCOIS ([id number]) on 03/21/2019 2:04:24 PM Referred By: ANAHI Confirmed By:KAVON VASQUEZ
--- NOTE | 2019-03-19 11:00 | RAD_ITS ---
STUDY: X-RAY CHEST REASON FOR EXAM: Male, 43 years old. Chest pain and shortness of breath. TECHNIQUE: Single AP portable view of the chest. COMPARISON: None. FINDINGS: EKG electrodes are seen. There is evidence of vascular congestion and mild CHF. There is no demonstrated pleural abnormality. There is borderline cardiomegaly. Normal mediastinum and david. Normal visualized pulmonary arteries. Normal visualized aortic arch and descending thoracic aorta. Normal visualized thoracic spine. Normal visualized ribs, clavicles, and shoulders. There is no demonstrated abnormality of the visualized soft tissue structures of the upper abdomen. RAD/Chest 1 View (Portable) IMPRESSION: Findings in keeping with vascular congestion and mild CHF. Electronically Signed: Louis Carpenter, at 11:22 EDT , Service support ,
[2019-03-19] MEDS: Aspirin 81 MG TAB.CHEW 324 MG PO (11:15)
[2019-03-19 11:16] LABS: Absolute Lymphocyte Count 0.76 X10^3/ul (0.83-4.51); Absolute Neutrophil Count 5.9 X10^3/uL (2.0-7.7); Basophil# 0.02 X10^3/uL; Basophil% 0.3 % (0-1); Eosinophils% 2.7 % (0-5); Hematocrit 31.4 % (40-54); Hemoglobin 9.4 g/dl (13.0-16.5); Lymphocyte # 0.76 X10^3/ul (4.0); Lymphocyte % 10.2 % (19-41); Mean Corp Hgb Conc 29.9 g/gl (32-36); Mean Corpuscular Hgb 21.4 pg (27.0-32.0); Mean Corpuscular Volume 71.4 fL (80-94); Mean Platelet Vol. 9.1 fl (6.2-12.0); Monocyte# 0.58 X10^3/uL; Monocyte% 7.8 % (0-10); Neutrophil # 5.85 X10^3/uL (2.7-7.7); Neutrophil % 78.6 % (47-70); Platelet Count 296 K/mm3 (150-450); RBC Distribution Width CV 20.1 % (11.6-14.6); RBC Distribution Width SD 50.5 fl (35.1-43.9); White Blood Count 7.4 K/mm3 (4.4-11.0)
[2019-03-19] MEDS: Nitroglycerin SL (ED/IMG/CATH) 0.4 MG TABLET SUBLINGUAL ×3 (11:16→11:57)
[2019-03-19 11:17] LABS: Differential Indicated SCAN CRITERIA MET; POSITIVE COUNT NO; POSITIVE DIFFERENTIAL NO; POSITIVE MORPHOLOGY YES
[2019-03-19 11:23] LABS: Anion Gap 3 (5-15); BUN 15 mg/dL (7-18); BUN/Creat Ratio 15.1 RATIO (10-20); Calcium,Total 8.7 mg/dL (8.5-10.1); Chloride 101 mmol/L (98-107); EST Glomerular Filtration Rate 86 mL/min (>60); Est Glom Filt Rate - Afr Amer 105 mL/min (>60); Estimated Creatinine Clearance 121.87 ml/min; Glucose 105 mg/dL (74-106); Potassium 4.2 mmol/L (3.5-5.1); Sodium Level 135 mmol/L (136-145)
[2019-03-19 11:42] LABS: Anisocytosis 2+; Differential Comment SCANNED; Microcytosis 2+
[2019-03-19 11:48] LABS: BNP,B-Type NATRIURETIC PEPTIDE 72.1 pg/mL (0-100)
--- NOTE | 2019-03-19 11:48 | ED.VISSUMM ---
- ER Visit Summary Date of Service: 03/19/19 Chief Complaint: [Chest pain and shortness of breath] History of Present Illness: The patient is a 43 M [presents to the emergency department with complaint of chest discomfort for a week. Patient planes of exertional dyspnea. Patient's been having intermittent chest discomfort with activity and exertion. He denies any nausea or vomiting. Patient is morbidly obese and currently awaiting surgery for gastric bypass. Patient has a history of hypertension, CHF, lymphedema, and morbid obesity. Patient currently being treated with Xarelto for history of DVT.] Physical Examination: [HEENT-PERRLA, EOMI. Cranial nerves II through XII grossly intact. TMs clear. Mucous membranes moist. No adenopathy. Cardiovascular-regular rate and rhythm without murmur or ectopy Lungs-clear to auscultation, chest wall stable without crepitus or subcu emphysema Abdomen-normoactive bowel sounds, soft, nontender, no rebound or rigidity, no peritoneal signs. Patient is morbidly obese. Extremities-intact ?4, normal range of motion, normal pulses, atraumatic. Patient has severe lymphedema both lower extremities.] Test Results: [EKG obtained on arrival shows sinus rhythm with ventricular rate 78 bpm with first-degree AV block and nonspecific intraventricular conduction delay. CBC with differential 7.4, hemoglobin 9.4, hematocrit 31, platelets 296. Chemistries unremarkable. Troponin is less than 0.015. Chest x-ray showed cardiomegaly and mild CHF.] Emergency Department Course and Treatment: [Patient was given nitro glycerin sublingual. Patient had some relief of his symptoms with that. Patient was given Lasix 80 mg's IV.] Treatment Plan: [Admit for further work-up and evaluation of his chest pain and dyspnea] Disposition: [Admit] Impression: [Chest pain CHF] This note was generated with [employer] dictation software. It may contain incorrect words, spelling, and punctuation that were not noted in review of the chart prior to signing ED Disposition - Plan for ED Patient: Referrals: Brian Johnson MD [Primary Care Provider] -
--- NOTE | 2019-03-19 12:03 | NURSING ---
DR CHRISTIAN FOR DR HANNA
[2019-03-19] MEDS: Furosemide 100 MG/10 ML Vial 80 MG IV (12:35)
[2019-03-19] MEDS: Furosemide 40 MG/4 ML Vial IV ×2 (15:45→22:13)
--- NOTE | 2019-03-19 15:55 | EKG12_ITS ---
Test Reason : CP Blood Pressure : / mmHG Vent. Rate : 124 BPM Atrial Rate : 117 BPM P-R Int : 000 ms QRS Dur : 116 ms QT Int : 394 ms P-R-T Axes : 000 090 -01 degrees QTc Int : 566 ms Baseline Artifact Probable Sinus Tavhycardia Right bundle branch block T wave abnormality, consider inferior ischemia Abnormal ECG When compared with ECG of 19-MAR-2019 10:05, MANUAL COMPARISON REQUIRED, DATA IS UNCONFIRMED Confirmed by SHIRLEY ACEVEDO, ZULAY ([id number]), make up editor TRISTIN BATEMAN ([id number]) on 04/01/2019 1:39:20 PM Referred By: JACQUES
--- NOTE | 2019-03-19 16:06 | NURSING ---
wound photo: left anterior ankle
--- NOTE | 2019-03-19 16:07 | NURSING ---
wound photo: left heel
[2019-03-19] MEDS: Pantoprazole Sodium 20 MG Tablet PO (18:31)
[2019-03-19] MEDS: Sertraline 100 MG Tablet PO (18:31)
[2019-03-19] MEDS: Rivaroxaban 20 MG Tablet PO (20:28)
--- NOTE | 2019-03-19 20:36 | HP.PCM_ITS ---
Problem List (1) Shortness of breath Status: Acute (2) Chest pain Status: Acute Qualifiers: Chest pain type: precordial pain Qualified Code(s): R07.2 - Precordial pain History of Present Illness Date of Admission: 03/19/19 Chief Complaint: Shortness of breath, chest pain The patient is a 43 year old M who was seen in the emergency room at [facility] with a chief complaint of increased shortness of breath over the last several days along with intermittent chest pains in the precordial area with some radiation into the left arm. He describes the discomfort as being dull in nature, he denied any diaphoresis or nausea or vomiting. This is been going on for approximately the past week. Patient is morbidly obese, he weighs 655 pounds. Patient has chronic lymphedematous changes of her both legs and uses crutches to ambulate. In examining the patient's medical record, he was at [facility] in December 2018 for similar complaints of chest pain shortness of breath, according to cardiology notes (Dr. Liu) who sees the patient in his office, work-up included an echocardiogram which showed a normal EF but this was a poor study due to the patient's size. Work-up in the emergency room included chest x-ray which was read out as showing vascular congestion and mild CHF, patient's pulse ox at rest was 93% on room air, CBC showed a normal white blood cell count and a low hemoglobin at 9.4, chemistry panel was unremarkable, troponin was normal, beta natruretic peptide was normal at 72.1. EKG showed normal sinus rhythm without evidence of ischemia. Patient was given IV Lasix in the emergency room and 1 sublingual nitroglycerin, he was admitted to PCU for acute diastolic CHF and chest pain. Cardiac enzymes will be cycled, he will be given IV Lasix and monitor. 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 (Chronic) 7 cm vascular cluster lesions x6 left proximal posterior thigh by the gluteal crease Dyspnea on exertion (Chronic) Hyperlipidemia (Chronic) Incomplete right bundle branch block (Chronic) Nonhealing ulcer of left lower extremity with fat layer exposed (Chronic) left anterior lower leg Chronic acquired lymphedema (Chronic) Ulcer of left thigh (Chronic) anterior and posterior thigh Chronic diastolic heart failure (Chronic) Super obesity (Chronic) Essential (primary) hypertension (Chronic) Medical History: Medical History (Last Reviewed 03/05/19 @ 09:44 by Keke Mcinotsh) Hyperlipidemia (Chronic) E78.5 Incomplete right bundle branch block (Chronic) I45.10 Chronic acquired lymphedema (Chronic) I89.0 Pulmonary embolism (Suspected) I26.99 Chronic diastolic heart failure (Chronic) I50.32 Super obesity (Chronic) E66.9 Essential (primary) hypertension (Chronic) I10 Anxiety and depression F41.9, F32.9 Cellulitis L03.90 Emphysema of lung J43.9 Lymphedema I89.0 Obstructive sleep apnea G47.33 Osteoarthritis M19.90 Peripheral vascular disease I73.9 Allergies Penicillins Allergy (Verified 03/05/19 09:44) Unknown Home Medications: Ambulatory Orders Medication Instructions Recorded Atorvastatin Calcium [Lipitor] 40 mg PO QHS 09/06/18 Lisinopril 20 mg PO DAILY 09/06/18 Acetaminophen [Tylenol Tablet] 650 mg PO Q6H PRN PRN tab 09/08/18 furosemide 40 mg tablet 40 mg PO DAILY tab 11/13/18 aspirin 81 mg tablet,delayed 81 mg PO DAILY 12/12/18 release metolazone 5 mg tablet 5 mg PO .once a week #30 tab 12/12/18 nitroglycerin 0.4 mg sublingual 0.4 mg SUBLINGUAL Q5-15M PRN 12/12/18 tablet sertraline 100 mg tablet 100 mg PO DAILY #90 tab 12/12/18 rivaroxaban 20 mg tablet 20 mg PO DAILY #90 tab 01/01/19 alprazolam 0.25 mg tablet 0.125 mg PO DAILY PRN #30 tab 02/05/19 amlodipine 10 mg tablet 10 mg PO DAILY #90 tab 03/05/19 isosorbide mononitrate 10 mg tablet 10 mg PO QDAY #90 tab 03/05/19 metoprolol tartrate 25 mg tablet 25 mg PO BID #180 tab 03/05/19 miconazole nitrate 2 % topical 1 applic TOPICAL BID #71 g 03/05/19 powder omeprazole 20 mg capsule,delayed 20 mg PO DAILY #90 cap 03/05/19 release Surgical History: - - Surgery for cleft lip and cleft palate long time ago. Psychiatric History: Depression Lives: With Family Smoking Status: Former smoker Tobacco Use: Non-smoker Alcohol: None Drugs: None - *Family History Maternal Family History: Family History (Last Reviewed 03/05/19 @ 09:44 by Keke Mcintosh) Father Myocardial infarction Hypertension Heart disease Arthritis Cancer History Items: No pertinent history Paternal Family History: Family History (Last Reviewed 03/05/19 @ 09:44 by Keke Mcintosh) Father Myocardial infarction Hypertension Heart disease Arthritis Cancer History Items: No pertinent history Review of Systems Constitutional: Reports: Fatigue. Denies: Anorexia, Chills, Fever, Night Sweats, Malaise, Weakness, Weight Change Eyes: Denies: Cataracts, Conjunctivae Inflammation, Double vision, Drainage HEENT: Denies: Difficulty Swallowing, Dysphasia, Ear Pain, Eye Pain, Hearing Changes, Nasal bleeding, Nasal Congestion, Post Nasal Drip Cardiovascular: Reports: Chest Pain, Chest Pressure, Heaviness. Denies: Claudication, Chest Tightness, Edema, Light Headedness, Orthopnea, Palpitations, Paroxysmal Noc. Dyspnea Respiratory: Reports: Shortness of Breath, Shortness of breath at rest, Shortness of breath upon exertion. Denies: Cough, Hemoptysis, Pleuritic Pain, Sputum production, Wheezing Gastrointestinal: Denies: Abdominal Pain, Constipation, Diarrhea, Hematemesis, Hematochezia, Nausea, Melena, Vomiting Genitourinary: Denies: Dysuria, Frequency, Hematuria, Hesitancy, Nocturia, Retention, Urgency Musculoskeletal: Denies: Back Pain, Foot Pain, Hand Pain, Joint Pain, Joint stiffness, Joint swelling, Joint Tenderness, Leg Pain Skin: Reports: Skin Changes - History of extensive lymphedema changes over both legs, Wounds - Patient has chronic leg wounds,left anterior ankle,left heel and is seen at the wound care center. Denies: Dryness, Jaundice, Pruritis, Rash Neurological: Denies: Blurred vision, Double vision, Slurred speech, Difficulty swallowing, Focal weakness, Headaches, Numbness, Tingling Psychiatric: Denies: Anxiety, Depression, Homicidal Ideations, Suicidal Ideations Endocrine: Denies: Change in Body Habitus, Heat/ Cold Intolerance, Polydipsia, Polyuria Hematologic/ Lymphatic: Denies: Adenopathy, Anemia, Easy Bruising, Easy Bleeding, Petechiae, Purpura VTE Information - Inpt Only VTE Present on Admission: No VTE Mechan Device Prophylaxis: None VTE Pharm Prophylaxis ordered?: No Reason prophylaxis not ordered:: Treatment Not Indicated - Patient on Xarelto for DVT history Patient Problems: Active and Suspected Problems (Last Reviewed 03/05/19 @ 09:44 by Keke Mcintosh) Shortness of breath (Acute) Chest pain (Acute) - Physical Exam General: Alert, Oriented x3, Cooperative, No apparent distress, Well developed, - - Morbid obesity with poor hygiene HEENT: Atraumatic, PERRLA, EOMI, Normocephalic Oral: Moist Mucosa Neck: Supple, No JVD, Negative Carotid Bruits, No Nuchal Rigidity, Trachea Midline, Thyroid Normal Size and Texture Lungs: Clear to auscultation, No rhonchi, No wheeze, Diminished Cardiovascular: Regular rate, Regular Rhythm, Normal S1, Normal S2, No murmurs, No Ectopic Activity, PMI Normal, No rub noted Abdomen: Bowel Sounds Present, Soft, Non Tender, Non-Distended, Obese Extremities: No clubbing, No cyanosis, Capillary Refill Less than 3 Seconds, - - Severe chronic lymphedematous changes are noted over both legs, there is superficial open areas over both legs, there is thickened skin with superficial open areas over the patient's anterior left ankle area and an eschar over the patient's left heel Skin: Ulcer/ Wound - There are superficial wounds over the patient's lower legs over his areas of lymphedema, there is a superficial wound to the patient's anterior left ankle area, there is a eschar over the patient's left heel Neurological: Cranial nerves II-XII grossly intact, Neuro grossly intact, Sensory exam intact to light touch and pain, Coordination normal Psych/Mental Status: Normal Affect, Appropriate, Alert and oriented to time, place, person, mood and affect Vital Signs Temp Pulse Resp BP Pulse Ox 98.3 F 76 18 135/50 H 94 03/19/19 17:30 03/19/19 18:55 03/19/19 17:30 03/19/19 17:30 03/19/19 17:30 Oxygen Flow Rate (L/min) 2 Oxygen Delivery Method Room Air Weight: 298.1 kg Body Mass Index (BMI) 76.0 Intake and Output for Last 24 Hours 03/17/19 03/18/19 03/19/19 23:59 23:59 23:59 Intake Total 900 / 900 Output Total 86612 / 25848 Balance -65763 / -87411 Laboratory Tests Past 24 Hrs 03/19/19 03/19/19 03/19/19 10:24 10:24 10:24 WBC 7.4 RBC 4.40 L Hgb 9.4 L Hct 31.4 L MCV 71.4 L MCH 21.4 L MCHC 29.9 L RDW 20.1 H RDW Differential 50.5 H Plt Count 296 MPV 9.1 Immature Gran % (Auto) 0.400 Neut % (Auto) 78.6 H Lymph % (Auto) 10.2 L [place] % (Auto) 7.8 Eos % (Auto) 2.7 Baso % (Auto) 0.3 Absolute Neuts (auto) 5.9 Absolute Lymphs (auto) 0.76 L Total Counted Not Reportable Differential Comment SCANNED Anisocytosis 2+ Microcytosis 2+ Sodium 135 L Potassium 4.2 Chloride 101 Carbon Dioxide 31.0 Anion Gap 3 L BUN 15 Creatinine 1.00 Estim Creat Clear Calc 121.87 Est GFR (MDRD) Af Amer 105 Est GFR (MDRD) Non-Af 86 BUN/Creatinine Ratio 15.1 Glucose 105 Calcium 8.7 Troponin I < 0.015 B-Natriuretic Peptide 72.1 03/19/19 03/19/19 14:10 16:55 WBC RBC Hgb Hct MCV MCH MCHC RDW RDW Differential Plt Count MPV Immature Gran % (Auto) Neut % (Auto) Lymph % (Auto) [place] % (Auto) Eos % (Auto) Baso % (Auto) Absolute Neuts (auto) Absolute Lymphs (auto) Total Counted Differential Comment Anisocytosis Microcytosis Sodium Potassium Chloride Carbon Dioxide Anion Gap BUN Creatinine Estim Creat Clear Calc Est GFR (MDRD) Af Amer Est GFR (MDRD) Non-Af BUN/Creatinine Ratio Glucose Calcium Troponin I < 0.015 < 0.015 B-Natriuretic Peptide Assessment/Plan All Active Problems (Last Reviewed 03/05/19 @ 09:44 by Keke Mcintosh) Shortness of breath (Acute) Chest pain (Acute) #1 acute on chronic diastolic congestive heart failure-patient will be admitted to PCU, IV Lasix will be administered, patient will be monitored #2 chest pain-etiology unclear, patient states that his main complaint is shortness of breath and not chest pain. In a patient with his body habitus, confirming that he had coronary artery disease would be impossible, patient will have cardiac enzymes cycled #3 morbid obesity-complicates care and recovery as well as outcome. Patient appears noncompliant with any effort to lose weight #4 chronic lymphedema #5 superficial wounds to the legs secondary to lymphedema-wound care seeing the patient #6 chronic anticoagulation due to past history of DVT-patient is on Xarelto #7 obstructive sleep apnea with noncompliance by patient to BiPAP #8 hypertension #9 generalized debility secondary to morbid obesity-patient will be seen by PT and OT Code Visit Inpatient E&M: 02103 Init Hosp L3
[2019-03-19] MEDS: Metoprolol Tartrate 25 MG Tablet PO (21:19)
[2019-03-19] MEDS: Atorvastatin Calcium 40 MG Tablet PO (21:19)
[2019-03-19] MEDS: Acetaminophen 325 MG Tablet 650 MG PO (21:24)
[2019-03-19] MEDS: 0.9% NaCl Peripheral Flush Adult/Peds IV (22:13)
[2019-03-20] VITALS (17 sets, daily range): BP systolic 76–126; BP diastolic 38–66; PULSE 59–77; RESP 16–24; TEMP 36.4–36.8; O2SAT 92–95
[2019-03-20] MEDS: Acetaminophen 325 MG Tablet 650 MG PO ×2 (03:46→20:51)
[2019-03-20] MEDS: Nystatin Powder 15gm Bottle 1 APPLIC TOPICAL ×3 (06:02→21:44)
[2019-03-20 06:06] LABS: Anion Gap 6 (5-15); BUN 15 mg/dL (7-18); Calcium,Total 8.5 mg/dL (8.5-10.1); Chloride 101 mmol/L (98-107); Creatinine, Serum 0.94 mg/dL (0.70-1.30); EST Glomerular Filtration Rate 92 mL/min (>60); Est Glom Filt Rate - Afr Amer 112 mL/min (>60); Estimated Creatinine Clearance 129.65 ml/min; Glucose 104 mg/dL (74-106); Potassium 4.1 mmol/L (3.5-5.1); Sodium Level 140 mmol/L (136-145)
[2019-03-20] MEDS: 0.9% NaCl Peripheral Flush Adult/Peds IV (06:24)
[2019-03-20] MEDS: Furosemide 40 MG/4 ML Vial IV (06:24)
[2019-03-20] MEDS: Aspirin E.C. 81 MG Tablet PO (09:21)
[2019-03-20] MEDS: Isosorbide Mononitrate 20 MG Tablet 10 MG PO (09:22)
[2019-03-20] MEDS: amLODIPine 10 MG Tablet PO (09:22)
[2019-03-20] MEDS: Lisinopril 20 MG Tablet PO (09:22)
[2019-03-20] MEDS: Metoprolol Tartrate 25 MG Tablet PO ×2 (09:26→21:44)
[2019-03-20] MEDS: Pantoprazole Sodium 20 MG Tablet PO (09:27)
--- NOTE | 2019-03-20 10:45 | NURSING ---
Pt was assisted to the BSC to have BM and tolerated well. Pt pulled tele off saying it was too heavy and he was fine. Encouraged pt to allow us to keep tele on, but pt refused. While on BSC after BM, pt became very diaphoretic and pale. stated he did not feel well. BP checked and was 76/39, HR 77. Additional staff obtained and pt helped back to bed.
--- NOTE | 2019-03-20 11:23 | CASEMGMT ---
LASHONDA ALVARADO assessment: Face to Face with patient for initial transition planning/care coordination assessment. LASHONDA ALVARADO introduced self and role at [facility], pt voices understanding and consents to assessment at this time. Pt is sitting up in bed in no distress at this time. Pt is A/Ox4 at this time and answers all questions appropriately at this time. Care providers, pharmacy, and demographics verified at this time. PCP: Elizabeth Specialists: Pt states no current specialists. Preferred Pharmacy: [facility] Insurance: [employer] Prescription Benefit: [employer] Living Will/HPOA: Pt states has LW/HPOA and is aware that they are not on file at [facility] at this time. Pt states that his , Genny Bobby, is HPOA. LNOK: Genny Bobby, Living Arrangements: Pt states lives with in 1 story home with no stairs and states no concerns at home at this time. Pt states that helps him with all ADL's. Transportation: Pt states drives and states no transportation concerns at this time. DME/HHC: Pt has bariatric crutches and a cpap and states no need for any further DME at this time. Pt states has had [facility] in the past but states that he was told by them that they do not take his insurance any longer. Pt states that he had therapy. Call to [facility] to verify as pt would be interested in having [facility] set up at discharge but according to Mora at [facility], pt was a 'non-admit' and never seen by them. She states nothing is charted about whether they referred to another agency at that time. Pt to be updated. Pt states no hx of SNF in the past. CM will follow for HHC at discharge. Pt states no concerns with going home at time of discharge. Pt states is disabled. Pt states does not smoke and rarely drinks ETOH. CM to follow PT/OT notes and for any further discharge planning/needs. Advised pt to ask for CM if any further questions/concerns/needs arise, voices understanding. Pt Goal: Home Plan: Home w/ HHC, pending PT/OT evlilia. Freedom GALLEGO CM
[2019-03-20] MEDS: Sertraline 100 MG Tablet PO (11:25)
[2019-03-20] MEDS: Rivaroxaban 20 MG Tablet PO (17:10)
--- NOTE | 2019-03-20 17:15 | PN_ITS ---
Patient Problems: Active and Suspected Problems (Last Reviewed 03/05/19 @ 09:44 by Keke Mcintosh) Shortness of breath (Acute) Chest pain (Acute) Subjective: Was seen and examined today, he became hypotensive today and I held his Lasix, I restarted the Lasix at a lower dosage and stopped his Norvasc. Patient has no complaints to this examiner today of shortness of breath or chest pain, patient is currently on room air. - Physical Exam General: Alert, Oriented x3, Cooperative, No apparent distress, Well developed HEENT: Atraumatic, PERRLA, EOMI, Normocephalic Oral: Moist Mucosa Neck: Supple, Trachea Midline, Thyroid Normal Size and Texture Lungs: Clear to auscultation, Normal air movement, No rhonchi, No wheeze, No rales Cardiovascular: Regular rate, Regular Rhythm, Normal S1, Normal S2, No murmurs Abdomen: Bowel Sounds Present, Soft, Non Tender, Non-Distended, Obese Extremities: No clubbing, No cyanosis, Capillary Refill Less than 3 Seconds, - - Severe diffuse lymphedematous changes are noted of the patient's legs Skin: - - Severe lymphedematous changes are noted over both legs, there are scattered superficial abrasions to both legs Musculoskeletal: No Tenderness to Palpation of Joints or Extremities Neurological: Cranial nerves II-XII grossly intact, Neuro grossly intact, Sensory exam intact to light touch and pain Psych/Mental Status: Normal Affect, Appropriate, Alert and oriented to time, p lace, person, mood and affect Vital Signs Temp Pulse Resp BP Pulse Ox 97.7 F L 66 18 108/66 95 03/20/19 16:00 03/20/19 16:00 03/20/19 16:00 03/20/19 16:00 03/20/19 16:00 Oxygen Flow Rate (L/min) 2 Oxygen Delivery Method Room Air Weight: 292.8 kg Body Mass Index (BMI) 76.0 Intake and Output for Last 24 Hours 03/18/19 03/19/19 03/20/19 23:59 23:59 23:59 Intake Total 1257 / 1257 1437 / 1437 Output Total 69128 / 76929 9350 / 9350 Balance -69031 / -91998 -7913 / -7913 Laboratory Tests Past 24 Hrs 03/19/19 03/20/19 16:55 05:15 Sodium 140 Potassium 4.1 Chloride 101 Carbon Dioxide 33.0 H Anion Gap 6 BUN 15 Creatinine 0.94 Estim Creat Clear Calc 129.65 Est GFR (MDRD) Af Amer 112 Est GFR (MDRD) Non-Af 92 BUN/Creatinine Ratio 16.0 Glucose 104 Calcium 8.5 Troponin I < 0.015 Medical Necessity - Tobacco Use Smoking Status: Former smoker Tobacco Use: Non-smoker Assessment/Plan All Active Problems (Last Reviewed 03/05/19 @ 09:44 by Keke Mcintosh) Shortness of breath (Acute) Chest pain (Acute) #1 acute on chronic diastolic congestive heart failure-continue IV Lasix at a lower dose, reassess the patient tomorrow #2 chest pain-etiology unclear, patient's cardiac enzymes were negative #3 morbid obesity-complicates care and recovery as well as outcome. Patient appears noncompliant with any effort to lose weight #4 chronic lymphedema #5 superficial wounds to the legs secondary to lymphedema-wound care seeing the patient #6 chronic anticoagulation due to past history of DVT-patient is on Xarelto #7 obstructive sleep apnea with noncompliance by patient to BiPAP #8 hypertension #9 generalized debility secondary to morbid obesity-patient is being seen by PT and OT Code Visit Inpatient E&M: 02993 Subs Hosp L2
[2019-03-20] MEDS: Furosemide 20 MG/2 ML VIAL IV (21:44)
[2019-03-20] MEDS: Atorvastatin Calcium 40 MG Tablet PO (21:44)
[2019-03-21] VITALS (7 sets, daily range): BP systolic 114–135; BP diastolic 60–69; PULSE 66–81; RESP 18; TEMP 36.4–36.9; O2SAT 92–93
[2019-03-21] MEDS: Furosemide 20 MG/2 ML VIAL IV (05:44)
[2019-03-21] MEDS: Nystatin Powder 15gm Bottle 1 APPLIC TOPICAL ×2 (05:44→14:27)
[2019-03-21] MEDS: 0.9% NaCl Peripheral Flush Adult/Peds IV (05:44)
[2019-03-21] MEDS: Metoprolol Tartrate 25 MG Tablet PO (09:50)
[2019-03-21] MEDS: Isosorbide Mononitrate 20 MG Tablet 10 MG PO (09:50)
[2019-03-21] MEDS: Lisinopril 20 MG Tablet PO (09:51)
[2019-03-21] MEDS: Sertraline 100 MG Tablet PO (09:51)
[2019-03-21] MEDS: Aspirin E.C. 81 MG Tablet PO (09:51)
[2019-03-21] MEDS: Pantoprazole Sodium 20 MG Tablet PO (09:54)
--- NOTE | 2019-03-21 12:41 | CASEMGMT ---
Pt is updated on [facility] info from previous note at this time, voice understanding. Pt's is on the phone with pt at this time and is able to hear this RN CHRISTIANO as well per pt request. Pt states that he does not want any other HHC at this time and is ok with going home later today. SStaten LASHONDA CM
--- NOTE | 2019-03-21 13:45 | CASEMGMT ---
This LASHONDA ALVARADO had received a message from Bridget Morfin, pt's Vic ALVARADO, requesting a call back in regards to discharge plan for pt. Call to Bridget Morfin at this time without success but message left for her at this time and this RN CHRISTIANO's direct call back number left at this time. Contact info: Bridget Morfin [phone]. SStaten LASHONDA ALVARADO
--- NOTE | 2019-03-21 14:46 | PCM.DC ---
- Discharge Diagnoses Current Active Problems: Current Active and Chronic Problems (Last Reviewed 03/05/19 @ 09:44 by Keke Mcintosh) Shortness of breath (Acute) Chest pain (Acute) You will use the following diet at home:: No restrictions Your food should be the consistency of: Regular Your liquids should be the consistency of: Regular/Thin Discharge Activity: Return to Normal Activity Weight Bearing Status: Full weight bearing Allergies/Adverse Reactions: Allergies Penicillins Allergy (Verified 03/05/19 09:44) Unknown Medications to take at Discharge Atorvastatin Calcium [Lipitor] 40 mg PO QHS 09/06/18 Lisinopril 20 mg PO DAILY 09/06/18 Acetaminophen [Tylenol Tablet] 650 mg PO Q6H PRN PRN tab 09/08/18 aspirin 81 mg tablet,delayed release 81 mg PO DAILY 12/12/18 sertraline 100 mg tablet 100 mg PO DAILY #90 tab 12/12/18 rivaroxaban 20 mg tablet 20 mg PO DAILY #90 tab 01/01/19 alprazolam 0.25 mg tablet 0.125 mg PO DAILY PRN #30 tab 02/05/19 isosorbide mononitrate 10 mg tablet 10 mg PO QDAY #90 tab 03/05/19 metoprolol tartrate 25 mg tablet 25 mg PO BID #180 tab 03/05/19 miconazole nitrate 2 % topical powder 1 applic TOPICAL BID #71 g 03/05/19 omeprazole 20 mg capsule,delayed release 20 mg PO DAILY #90 cap 03/05/19 Furosemide 40 mg PO BID #60 tab 03/21/19 Nystatin Powder [Mycostatin Powder] 1 applic TOPICAL TID bottle 03/21/19 The following prescriptions were given: Furosemide 40 mg PO BID #60 tab Transmission Status: Pending to [address] Primary Care Physician: Brian Johnson MD [Primary Care Provider] - Please follow up with your Primary Care Physician in: in 2 weeks Test Results: Test results from this visit will be discussed in further detail at your follow-up appointment, if applicable.
--- NOTE | 2019-03-22 08:23 | PCM.DC.SUM ---
Discharge Date and Diagnosis Date of Admission: 03/19/19 Date of Discharge: 03/21/19 - Primary Discharge Diagnosis #1 acute on chronic diastolic congestive heart failure #2 dyspnea secondary #1 #3 chest pain-etiology unclear #4 morbid obesity #5 severe lymphedema #6 noncompliance with medical regimen #7 obstructive sleep apnea-noncompliant with CPAP/BiPAP #8 superficial wounds to both legs secondary to lymphedema #9 hypertension #10 generalized debility secondary to morbid obesity - Secondary Discharge Diagnosis Chronic Problems (Last Reviewed 03/05/19 @ 09:44 by Keke Mcintosh) Hemangioma of skin and subcutaneous tissue (Chronic) 7 cm vascular cluster lesions x6 left proximal posterior thigh by the gluteal crease 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 (Chronic) 7 cm vascular cluster lesions x6 left proximal posterior thigh by the gluteal crease Dyspnea on exertion (Chronic) Hyperlipidemia (Chronic) Incomplete right bundle branch block (Chronic) Nonhealing ulcer of left lower extremity with fat layer exposed (Chronic) left anterior lower leg Chronic acquired lymphedema (Chronic) Ulcer of left thigh (Chronic) anterior and posterior thigh Chronic diastolic heart failure (Chronic) Super obesity (Chronic) Essential (primary) hypertension (Chronic) Hospital Course and Treatment Operations: None Procedures: None Summary of Care Provided: The patient is a 43 year old M who was seen in the emergency room at [facility] with a chief complaint of shortness of breath, he had been noncompliant with taking medications at home (Lasix and Zaroxolyn), patient has morbid obesity with a body weight of over 655 pounds. Work-up in the emergency room included chest x-ray which showed evidence of vascular congestion, EKG showed no evidence of ischemic changes, patient was admitted to PCU for acute on chronic diastolic congestive heart failure-echocardiogram was not repeated, review of the patient's last cardiology visit in December 2018 indicated the patient had a normal ejection fraction on previous echocardiogram. Patient's cardiac enzymes are cycled and these were normal, patient was seen by PT and OT and placed on IV Lasix with very good results. On 03/21/2019, patient was seen and examined: On examination he appeared in good health and spirits. Vital signs as documented. Skin warm and dry and without overt rashes, chronic lymphedematous changes which are severe are noted over both legs. Neck without JVD. Lungs clear. Heart exam notable for regular rhythm, normal sounds and absence of murmurs, rubs or gallops. Abdomen unremarkable and without evidence of organomegaly, masses, or abdominal aortic enlargement. Patient is morbidly obese. Extremities-chronic severe lymphedematous changes are noted over both legs, there are scattered superficial ulcerations over the patient's legs that do not appear to be infected.. Neuro: Cranial nerves II through XII are grossly intact, no focal motor deficits were noted, sensation to light touch and pinprick intact. Psych: Patient is alert and oriented x3, he does not appear anxious or depressed. On 03/21/2019, patient was seen and examined and felt to be in stable condition for discharge home. It is this examiner's opinion that the patient has a very poor prognosis, he has delayed seeking treatment for gastric bypass. I have encouraged the patient to follow through with this and he said he would. - Physical Exam Vital Signs Temp Pulse Resp BP Pulse Ox 97.9 F 66 18 114/60 93 03/21/19 12:27 03/21/19 12:27 03/21/19 12:27 03/21/19 12:27 03/21/19 12:27 Oxygen Flow Rate (L/min) 2 Oxygen Delivery Method Room Air Weight: 275.2 kg Body Mass Index (BMI) 76.0 Intake and Output for Last 24 Hours 03/20/19 03/21/19 03/22/19 23:59 23:59 23:59 Intake Total 2154 / 2154 1237 / 1237 Output Total 55018 / 34793 7375 / 7375 Balance -18294 / -26814 -6138 / -6138 Discharge Activity: Return to Normal Activity Weight Bearing Status: Full weight bearing Home Medications: Medications to take at Discharge Atorvastatin Calcium [Lipitor] 40 mg PO QHS 09/06/18 Lisinopril 20 mg PO DAILY 09/06/18 Acetaminophen [Tylenol Tablet] 650 mg PO Q6H PRN PRN tab 09/08/18 aspirin 81 mg tablet,delayed release 81 mg PO DAILY 12/12/18 sertraline 100 mg tablet 100 mg PO DAILY #90 tab 12/12/18 rivaroxaban 20 mg tablet 20 mg PO DAILY #90 tab 01/01/19 alprazolam 0.25 mg tablet 0.125 mg PO DAILY PRN #30 tab 02/05/19 isosorbide mononitrate 10 mg tablet 10 mg PO QDAY #90 tab 03/05/19 metoprolol tartrate 25 mg tablet 25 mg PO BID #180 tab 03/05/19 miconazole nitrate 2 % topical powder 1 applic TOPICAL BID #71 g 03/05/19 omeprazole 20 mg capsule,delayed release 20 mg PO DAILY #90 cap 03/05/19 Furosemide 40 mg PO BID #60 tab 03/21/19 Nystatin Powder [Mycostatin Powder] 1 applic TOPICAL TID bottle 03/21/19 Following Prescrptions Were Given to Patient: Furosemide 40 mg PO BID #60 tab Transmission Status: Received by ROMARIO FLAQUITO[address] Primary Care Physician: Brian Johnson MD [Primary Care Provider] - Please follow up with your Primary Care Physician in: in 2 weeks Please Follow Up With: Brian Johnson MD When: soonest available Disposition: Home Minutes spent on discharge:: 32 Patient Condition:: Stable Medical Necessity - Tobacco Use Smoking Status: Former smoker Tobacco Use: Non-smoker Meaningful Use Info Meaningful Use Diagnoses (Choose all that apply): CHF - CHF GRACIA/ARB ordered at discharge?: No Reason GRACIA/ARB not ordered?: Allergy - Not indicated, patient has a normal EF Documented LVEF (%): 50
--- NOTE | 2019-03-22 11:31 | CASEMGMT ---
LASHONDA ALVARADO Discharge F/U Phone Call LACE: 10 Strata: 3 Discharge date: 03/21/19 Call date: 03/22/19 Call time: 1131 Duration: 8 minutes Admission dx: CHF Pt states is doing 'pretty good' and 'not too bad' since discharge. Pt states no questions regarding discharge instructions/medications at this time. Pt states has f/u appt's scheduled. Pt states that he wanted to have some OP lab work drawn after d/c that he has been trying to get done for upcoming bariatric surgery and pt states that his ride did not get here till too late and he missed the OP lab. Pt states that he is going to [facility] today to have bloodwork drawn. Pt states that 'All nurses need to be commended and I appreciate them so much.' Pt voices no further questions/concerns/needs at this time. SStaten LASHONDA ALVARADO
== END 2019-03-21 18:48 | disposition home or self-care (01) ==
LOC: ED 10:52 → PCU 12:52
PROVIDERS: Admitting Provider Internal Medicine; Emergency Provider Emergency Medicine; Family Provider Internal Medicine; PCP Internal Medicine; Visit Provider Internal Medicine
DX: I11.0 Hypertensive heart disease with heart failure (principal); I50.33 Acute on chronic diastolic (congestive) heart failure; E66.01 Morbid (severe) obesity due to excess calories; I89.0 Lymphedema, not elsewhere classified; E78.5 Hyperlipidemia, unspecified; G47.33 Obstructive sleep apnea (adult) (pediatric); I73.9 Peripheral vascular disease, unspecified; M19.90 Unspecified osteoarthritis, unspecified site; F41.9 Anxiety disorder, unspecified; F32.9 Major depressive disorder, single episode, unspecified; Z86.718 Personal history of other venous thrombosis and embolism; Z79.01 Long term (current) use of anticoagulants; Z79.899 Other long term (current) drug therapy; Z79.82 Long term (current) use of aspirin; Z68.45 Body mass index [BMI] 70 or greater, adult; Z71.3 Dietary counseling and surveillance; Z91.19 Patient's noncompliance with other medical treatment and regimen; Z87.891 Personal history of nicotine dependence
CPT/HCPCS: 36415; 71045; 80048; 83880; 84484; 85025; 93005; 96374; 96376; 97162; 97166; 97802; 99218; 99285; 99406; J7050; A4216; G0378; J1940

== ENCOUNTER 2019-06-02 16:39 | Inpatient (IN) | payer MEDICAID, SELFPAY ==
[2019-03-19 13:15] VITALS: BMI 76.0
[2019-06-02] VITALS (10 sets, daily range): BP systolic 108–130; BP diastolic 59–72; PULSE 52–62; RESP 16–18; TEMP 36.4–36.8; O2SAT 93–98; BMI 59.6; BMI 56.9
--- NOTE | 2019-06-02 16:52 | RAD_ITS ---
STUDY: X-RAY CHEST REASON FOR EXAM: Male, 44 years old. Weakness, dizziness and near syncope. One week postop bariatric surgery. TECHNIQUE: Single AP portable view of the chest. COMPARISON: Prior chest exam of March 19, 2019 FINDINGS: The lungs are clear and expanded. There is no demonstrated pleural abnormality. Normal size heart. Normal mediastinum and david. Normal visualized pulmonary arteries. Normal visualized aortic arch and descending thoracic aorta. Normal visualized thoracic spine. Normal visualized ribs, clavicles, and shoulders. There is no demonstrated abnormality of the visualized soft tissue structures of the upper abdomen. RAD/Chest 1 View (Portable) IMPRESSION: Normal x-ray examination of the chest. Electronically Signed: Prudence Sales MD at 17:26 EDT , Service support ,
--- NOTE | 2019-06-02 16:53 | EKG12_ITS ---
Test Reason : Blood Pressure : / mmHG Vent. Rate : 052 BPM Atrial Rate : 052 BPM P-R Int : 292 ms QRS Dur : 118 ms QT Int : 468 ms P-R-T Axes : 035 026 008 degrees QTc Int : 435 ms Sinus bradycardia with 1st degree A-V block Incomplete right bundle branch block Borderline ECG Confirmed by CARSON ACEVEDO, GABINO ([id number]), scientific publications editor ALEX AGUILLON ([id number]) on 06/03/2019 9:12:22 AM Referred By: Ena Amaya Confirmed By:GABINO BYRD MD
[2019-06-02 17:03] LABS: Absolute Lymphocyte Count 1.03 X10^3/uL (0.83-4.51); Absolute Neutrophil Count 7.2 X10^3/uL (2.0-7.7); Basophil# 0.03 X10^3/uL; Basophil% 0.3 % (0-1); Eosinophil# 0.13 X10^3/uL; Eosinophils% 1.4 % (0-5); Hematocrit 41.3 % (40-54); Hemoglobin 12.4 g/dL (13.0-16.5); Lymphocyte # 1.03 X10^3/ul (4.0); Lymphocyte % 11.4 % (19-41); Mean Corpuscular Volume 73.2 fL (80-94); Mean Platelet Vol. 9.9 fl (6.2-12.0); Monocyte# 0.62 X10^3/uL; Monocyte% 6.9 % (0-10); NRBC Flagged by Analyzer 0 % (0-5); Neutrophil # 7.22 X10^3/uL (2.7-7.7); Neutrophil % 79.8 % (47-70); Platelet Count 344 K/mm3 (150-450); RBC Distribution Width SD 50.5 fl (35.1-43.9); Red Blood Count 5.64 M/mm3 (4.6-6.2); White Blood Count 9.1 K/mm3 (4.4-11.0)
[2019-06-02 17:17] LABS: Anion Gap 6 (5-15); BUN 33 mg/dL (7-18); BUN/Creat Ratio 24.3 RATIO (10-20); Calcium,Total 9.2 mg/dL (8.5-10.1); Chloride 101 mmol/L (98-107); Creatinine, Serum 1.36 mg/dL (0.70-1.30); EST Glomerular Filtration Rate 60 mL/min (>60); Est Glom Filt Rate - Afr Amer 73 mL/min (>60); Estimated Creatinine Clearance 88.67 ml/min; Glucose 94 mg/dL (74-106); Potassium 4.3 mmol/L (3.5-5.1); Sodium Level 134 mmol/L (136-145)
[2019-06-02] MEDS: 0.9% Normal Saline 1,000 ML 15 ML IV (17:23)
[2019-06-02 17:33] LABS: BNP,B-Type NATRIURETIC PEPTIDE 11.6 pg/mL (0-100)
--- NOTE | 2019-06-02 18:18 | ED.RN ---
PT WITH INDWELLING VAZQUEZ CATHETER ON ARRIVAL TO ED. HE REPORTS HE HAS HAD IT FOR AWHILE, PRE SURGERY.
--- NOTE | 2019-06-02 18:28 | PCM.HP.STD ---
Problem List (1) Near syncope Status: Acute (2) UTI (urinary tract infection) Status: Acute Qualifiers: Urinary tract infection type: acute cystitis (3) NURYS (acute kidney injury) Status: Acute (4) CRISTINO (obstructive sleep apnea) Status: Chronic (5) COPD (chronic obstructive pulmonary disease) Status: Chronic Qualifiers: COPD type: unspecified COPD Qualified Code(s): J44.9 - Chronic obstructive pulmonary disease, unspecified (6) Former tobacco use Status: Chronic (7) Morbid obesity Status: Chronic (8) Hyperlipidemia Status: Chronic Qualifiers: Hyperlipidemia type: unspecified Qualified Code(s): E78.5 - Hyperlipidemia, unspecified (9) Chronic acquired lymphedema Status: Chronic (10) Pulmonary embolism Status: Chronic Qualifiers: Pulmonary embolism type: unspecified Chronicity: unspecified Acute cor pulmonale presence: without acute cor pulmonale Qualified Code(s): I26.99 - Other pulmonary embolism without acute cor pulmonale (11) Chronic diastolic heart failure Status: Chronic (12) Essential (primary) hypertension Status: Chronic History of Present Illness Date of Admission: 06/02/19 Chief Complaint: Lightheadedness, dizziness, near syncope The patient is a 44 y/o M w/ PMHx: Hx prior PE, Morbid Obesity, Chronic Diastolic CHF, HTN, HLD, Chronic COPD, Anxiety and Depression, CRISTINO, Chronic BL LE Lymphedema who presents to the [facility] ED on 06/02/19 with history of recent gastric bypasson 05/27/19 with onset over the last several days worsening weakness, fatigue, malaise with near syncopal event the evening prior, noted he fell back into the couch upon attempting standing with sensation that he may pass out. He was recently also administered notable diuretics while at his hospitalization. He has an indwelling chronic pena catheter with noted increased sediment but no fevers, chills or turbid appearance per ED report which is new onset per discussion with spouse and she noted at 1 AM when emptying the catheter, denied any foul smell of the urine output. She does state that prior to his recent gastric bypass on the 16 of this month he did have notable weight loss secondary to aggressive diuresis for his chronic lymphedema prior to operative intervention with initial weight 658 pounds and prior to OR 517 pounds over a 2-week period. His recent oral intake has been very specific per discharge bariatric gastric bypass parameters. Work-up in the ED included T 98.2, heart rate 55, BP 108/63, respiratory rate 18, 98% on room air, difficulty with obtaining orthostatic vital signs, CBC with WBC 9.1, heme globin 12.4, MCV 73.2, platelet 344 with minimal left shift, BMP with sodium 134, BUN/creatinine 33/1.36, troponin less than 0.015, BNP 11.6, chest x-ray with no acute cardiopulmonary findings, EKG SB with 1 AVB, UA and UCx requested and pending. In the ED patient administered normal saline. Past Medical History Past Medical History (Chronic Problems): Chronic Problems (Last Reviewed 03/05/19 @ 09:44 by Keke Mcintosh) CRISTINO (obstructive sleep apnea) (Chronic) COPD (chronic obstructive pulmonary disease) (Chronic) Former tobacco use (Chronic) Morbid obesity (Chronic) Hemangioma of skin and subcutaneous tissue (Chronic) 7 cm vascular cluster lesions x6 left proximal posterior thigh by the gluteal crease 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 (Chronic) 7 cm vascular cluster lesions x6 left proximal posterior thigh by the gluteal crease Dyspnea on exertion (Chronic) Hyperlipidemia (Chronic) Incomplete right bundle branch block (Chronic) Nonhealing ulcer of left lower extremity with fat layer exposed (Chronic) left anterior lower leg Chronic acquired lymphedema (Chronic) Ulcer of left thigh (Chronic) anterior and posterior thigh Pulmonary embolism (Chronic) Chronic diastolic heart failure (Chronic) Super obesity (Chronic) Essential (primary) hypertension (Chronic) Medical History: Medical History (Last Reviewed 03/05/19 @ 09:44 by Keke Mcintosh) Hyperlipidemia (Chronic) E78.5 Incomplete right bundle branch block (Chronic) I45.10 Chronic acquired lymphedema (Chronic) I89.0 Pulmonary embolism (Suspected) I26.99 Chronic diastolic heart failure (Chronic) I50.32 Super obesity (Chronic) E66.9 Essential (primary) hypertension (Chronic) I10 Anxiety and depression F41.9, F32.9 Cellulitis L03.90 Emphysema of lung J43.9 Lymphedema I89.0 Obstructive sleep apnea G47.33 Osteoarthritis M19.90 Peripheral vascular disease I73.9 Allergies Penicillins Allergy (Verified 06/02/19 16:50) Unknown Home Medications: Ambulatory Orders Medication Instructions Recorded Atorvastatin Calcium [Lipitor] 40 mg PO QHS 09/06/18 Lisinopril 20 mg PO DAILY 09/06/18 aspirin 81 mg tablet,delayed 81 mg PO DAILY 12/12/18 release sertraline 100 mg tablet 100 mg PO DAILY #90 tab 12/12/18 rivaroxaban 20 mg tablet 20 mg PO DAILY #90 tab 01/01/19 isosorbide mononitrate 10 mg tablet 10 mg PO QDAY #90 tab 03/05/19 metoprolol tartrate 25 mg tablet 25 mg PO BID #180 tab 03/05/19 omeprazole 20 mg capsule,delayed 20 mg PO DAILY #90 cap 03/05/19 release Furosemide 40 mg PO BID #60 tab 03/21/19 Bariatric Crutches #2 ea 05/17/19 Enoxaparin [Lovenox] 60 mg SUBCUT Q12@0600,1800 06/02/19 Ondansetron [Zofran Odt] 4 mg PO Q8H PRN PRN 06/02/19 Oxycodone HCl/Acetaminophen 1 ea PO Q4H PRN 06/02/19 [Oxycodone-Acetaminophen 5-325] Surgical History: - - Surgery for cleft lip and cleft palate, tonsillectomy, bilateral hand and finger surgery, pilonidal cyst surgery, recent gastric bypass with gastric sleeve with umbilical hernia repair. Psychiatric History: Depression Lives: Spouse/ Significant Other Smoking Status: Former smoker - Patient quit cigarette tobacco usage approximately 13 to 14 years prior and notes that following this he did have 2 tobacco usage but quit a proximally 1.5 years prior to current presentation. Tobacco Use: Cigarettes - Prior cigarette tobacco usage., Chew - Prior to chew tobacco usage. Alcohol: None Drugs: None - *Family History Maternal Family History: Family History (Last Reviewed 03/05/19 @ 09:44 by Keke Mcintosh) Father Myocardial infarction Hypertension Heart disease Arthritis Cancer History Items: Hypertension Paternal Family History: Family History (Last Reviewed 03/05/19 @ 09:44 by Keke Mcintosh) Father Myocardial infarction Hypertension Heart disease Arthritis Cancer History Items: Cancer, High Cholesterol, Heart Disease, Hypertension Review of Systems Constitutional: Reports: Malaise, Weakness, Fatigue. Denies: Chills, Fever, Weight Change HEENT: Denies: Head Aches, Sinus Congestion, Sinus Drainage Cardiovascular: Reports: Light Headedness, Syncope. Denies: Chest Pain, Chest Pressure, Chest Tightness, Orthopnea, Palpitations Respiratory: Denies: Cough, Shortness of Breath, Shortness of breath at rest, Shortness of breath upon exertion, Sputum production Gastrointestinal: Denies: Abdominal Pain, Nausea, Vomiting Genitourinary: Denies: Dysuria Musculoskeletal: Reports: Back Pain, Joint Pain. Denies: Joint Tenderness Skin: Reports: Skin Changes. Denies: Rash, Wounds Neurological: Denies: Numbness, Tingling, Focal weakness Psychiatric: Reports: Depression. Denies: Anxiety, Homicidal Ideations, Suicidal Ideations Hematologic/ Lymphatic: Reports: Anemia. Denies: Easy Bruising, Easy Bleeding VTE Information - Inpt Only VTE Present on Admission: No VTE Mechan Device Prophylaxis: SCD's VTE Pharm Prophylaxis ordered?: Yes Patient Problems: Active and Suspected Problems (Last Reviewed 03/05/19 @ 09:44 by Keke Mcintosh) Near syncope (Acute) UTI (urinary tract infection) (Acute) NURYS (acute kidney injury) (Acute) Subjective: Seated upright in the ED bed, fatigued appearance, no acute distress. Objective: Physical Examination: General: awake, alert, oriented x 3 and cooperative, seated upright in the ED bed, no acute distress. Skin: normal color, turgor, no icterus, cyanosis, recent gastric bypass surgery as well as umbilical hernia repair with incisions with Steri-Strips as well as recent umbilical region with specific dressing to remain until follow-up this coming week, no drainage from any of these regions, chronic bilateral lower extremity venous stasis changes and chronic lymphedema. HEENT: AT/NC, EOMI, PERRLA, dry MM, no carotid bruits or JVD noted. Lungs: Distant breath sounds bilaterally, moderate effort, moderate decreased bilateral bases, no rales, ronchi or wheezing. Heart: Mildly bradycardic with regular rhythm; no gallop, rub audible. Abdomen: soft, morbidly obese, status post recent gastric bypass surgery with gastric sleeve with incisions with Steri-Strips and dressings in place, no drainage, no notable NTTP, difficult to assess distention, mildly hypoactive BS, unable to assess HSM secondary to notably morbidly obese status. Extremities: no cyanosis, clubbing, chronic bilateral lower extremity lymphedema, most improved it has been in a while per spouse. Neurological: patient awake, alert, oriented x 3; cognitive function intact; pupils equally reactive to light and accomodation; cranial nerves II-XII grossly normal, moving all 4 extremities, no focal deficits, strength severely global decrease secondary to acute presentation. Psychiatric: affect appears fatigued, no acute evidence of depressive or anxiety feelings. - Physical Exam Vital Signs Temp Pulse Resp BP Pulse Ox 98.2 F 56 L 16 120/67 97 06/02/19 18:01 06/02/19 18:01 06/02/19 18:01 06/02/19 18:01 06/02/19 18:01 Oxygen Delivery Method Room Air Weight: 516 lb 5.161 oz Body Mass Index (BMI) 59.6 Laboratory Tests Past 24 Hrs 06/02/19 06/02/19 06/02/19 16:46 16:46 16:46 WBC 9.1 RBC 5.64 Hgb 12.4 L Hct 41.3 MCV 73.2 L MCH 22.0 L MCHC 30.0 L RDW Std Deviation 50.5 H RDW Coeff of Alee 20.0 H Plt Count 344 MPV 9.9 Immature Gran % (Auto) 0.200 Neut % (Auto) 79.8 H Lymph % (Auto) 11.4 L [place] % (Auto) 6.9 Eos % (Auto) 1.4 Baso % (Auto) 0.3 Absolute Neuts (auto) 7.2 Absolute Lymphs (auto) 1.03 Nucleated RBC % 0 Sodium 134 L Potassium 4.3 Chloride 101 Carbon Dioxide 27.0 Anion Gap 6 BUN 33 H Creatinine 1.36 H Estim Creat Clear Calc 88.67 Est GFR (MDRD) Af Amer 73 Est GFR (MDRD) Non-Af 60 BUN/Creatinine Ratio 24.3 H Glucose 94 Calcium 9.2 Troponin I < 0.015 B-Natriuretic Peptide 11.6 Assessment/Plan All Active Problems (Last Reviewed 03/05/19 @ 09:44 by Keke Mcintosh) Shortness of breath (Acute) Chest pain (Acute) Near syncope (Acute) UTI (urinary tract infection) (Acute) NURYS (acute kidney injury) (Acute) The patient is a 44 y/o M w/ PMHx: Hx prior PE, Morbid Obesity, Chronic Diastolic CHF, HTN, HLD, Chronic COPD, Anxiety and Depression, CRISTINO, Chronic BL LE Lymphedema who presents to the [facility] ED on 06/02/19 with history of recent gastric bypasson 05/27/19 with onset over the last several days worsening weakness, fatigue, malaise with near syncopal event the evening prior, noted he fell back into the couch upon attempting standing with sensation that he may pass out. (1) Lightheadedness, Dizziness, Near Syncopal Event suspected Secondary to Acute Complicated UTI with Indwelling Pena Catheter as well as #2: EKG in ED w/ sinus bradycardia without evidence of acute ischemia, CXR w/ no acute cardiopulmonary findings, initial trop normal, unable to perform appropriate orthostatic vital signs, UA finally obtained and notable appearing with pending UCx, will change pena. To be cautious in case additional etiology, will admit to PCU, place on a monitored bed to assure no acute myocardial infarction with serial cardiac enzymes and EKGs, maintain on fall precautions, continue judicious IVFs, obtain ECHO, PT/OT consultation to ascertain stability and discharge needs, initiate and continue IV Rocephinw/ transition as able pending sensitivities and speciation. (2) Acute kidney injury w/ Hyponatremia, Hypovolemic: Secondary to recent operative intervention, likely poor oral intake and possibly medications. Admission BUN/Cr 33/1.36, prior baseline creatinine noted to be 0.9. Will hydrate, hold nephrotoxic medications and repeat chemistry in AM. If no improvement would plan FeNa and renal ultrasound assessment. (3) Chronic Microcytic anemia: Admission hemoglobin 12.4, MCV 73.2, prior baseline noted 9-10 range, not on supplementations, given recent bariatric surgery will benefit from supplementation, fe panel, ferritin, vitamin B12 and folic acid pending.. (4) Hypertension: Given admission complaints, NURYS will hold lisinopril as well as Lasix, restart once appropriate, continue metoprolol, PRN hydralazine. (5) Hyperlipidemia: Continue home statin regimen. (6) Chronic diastolic CHF: Appears compensated, chest x-ray unremarkable, BMP normal, continue home aspirin, statin, metoprolol regimen, holding lisinopril and Lasix secondary to NURYS with resumption once appropriate. (7) Morbid Obesity w/ Recent Gastric Bypass: Weight loss and lifestyle changes encouraged, nutrition consulted. (8) Chronic bilateral lower extremity lymphedema: Desmond wraps, elevation. (9) History of prior PE: We will continue patient overlapping Lovenox 60 mg twice daily in addition to Xarelto which he was discharged on per his surgeon secondary to history of prior PE and recent gastric bypass. (10) Chronic COPD: ATC duonebs, PRN albuterol, HOB, IS parameters. (11) CRISTINO: Patient is noncompliant with CPAP therapy and declined to trial here. (12) Anxiety and depression: Continue home sertraline regimen. (13) DVT Prophylaxis: SCDS, continue home Lovenox 60 mg twice daily in addition to Xarelto which she was discharged upon per his surgeon. Code Visit Inpatient E&M: 95291 Init Hosp L3
--- NOTE | 2019-06-02 18:39 | ED.VISSUMM ---
- ER Visit Summary Date of Service: 06/02/19 Chief Complaint: [Weakness] History of Present Illness: The patient is a 44 M [presents to the emergency department generalized weakness. Patient states that over the last 2 days he is noticed that he is having a hard time walking and he gets weak with minimal activity. Patient states that he is lost 150 pounds in water weight in the last several weeks as about a week ago he had surgery for gastric sleeve at [facility]. Patient denies any chest pain or shortness of breath. Patient apparently was diuresed prior to his surgery and has had an indwelling Carroll catheter. Patient noticed increased sediment in the catheter for the last 2 days. Yesterday he had an episode where he stood up to try to walk and kind of fell back into the couch and passed out for short time. did not notice any seizure activity. Patient denies any chest pain or shortness of breath. Patient has been eating and drinking. Patient is passing gas and having stools. He denies any abdominal pain.] Physical Examination: [HEENT-PERRLA, EOMI. Cranial nerves II through XII grossly intact. TMs clear. Mucous membranes moist. No adenopathy. Cardiovascular-regular rate and rhythm without murmur or ectopy Lungs-clear to auscultation, chest wall stable without crepitus or subcu emphysema Abdomen-normoactive bowel sounds, soft, nontender, no rebound or rigidity, no peritoneal signs. Extremities-intact ?4, normal range of motion, normal pulses, atraumatic] Test Results: [EKG obtained on arrival showed sinus rhythm with a ventricular rate of 52 bpm with a first-degree AV block and incomplete right bundle branch block. CBC with differential showed a white count 9.1, hemoglobin 12, hematocrit 41, placed 344. Chemistries unremarkable. Troponin is less 0.15. BNP was 11.6. Chest x-ray showed nothing acute. Analysis ordered and pending. Urine culture sent.] Emergency Department Course and Treatment: [Patient was given normal saline.] We attempted to do orthostatic vital signs on the patient but he stated that he felt too weak to stand. Treatment Plan: [Admit] Disposition: [Admit] Impression: [Generalized weakness] This note was generated with [employer] software. It may contain incorrect words, spelling, and punctuation that were not noted in review of the chart prior to signing ED Disposition - Plan for ED Patient: Referrals: Brian Johnson MD [Primary Care Provider] -
[2019-06-02 19:03] LABS: Mucous, Urine 0 SEEN /hpf (<or=2+)
[2019-06-02 19:14] LABS: Color, Urine Yellow (Yellow); Glucose, Dipstick Normal (Normal); Ketone-Dipstick 5 mg/dl (Negative); Leukocyte Esterase-Dipstick 500 /ul (Negative); Nitrite-Dipstick Positive (Negative); Occult Blood-Urine 150 /ul (Negative); Protein-Dipstick 100 mg/dl (Negative); Urine Clarity Sl. Cloudy (Clear); Urine Urobilinogen 4 mg/dl (Normal)
[2019-06-02 19:27] LABS: Urine Bilirubin Dipstick 1 mg/dL (Negative)
[2019-06-02 19:29] LABS: Bacteria 1+ /hpf (None Seen); Red Blood Cells-Urine 0-5 SEEN /hpf (0-5); Squamous Epithelial Cells - UA 0-5 SEEN /hpf (0-5); White Blood Cells 50-100 SEEN /hpf (0-5)
[2019-06-02 20:56] LABS: Ferritin 118 ng/mL (26-388); Iron 44 ug/dL (65-175); Iron Binding Capacity,Total 341 ug/dL (250-450); Magnesium 2.1 mg/dL (1.6-2.6); PERCENT IRON SATURATION 12.9 % (15.0-55.0)
[2019-06-02] MEDS: Enoxaparin 60 MG/0.6 ML Syringe SC (21:06)
[2019-06-02] MEDS: Ceftriaxone 1 GM/50 ML BAG IV (21:06)
[2019-06-02] MEDS: 0.9% Normal Saline 1,000 ML 100 ML IV (21:06)
[2019-06-02] MEDS: Atorvastatin Calcium 40 MG Tablet PO (21:06)
[2019-06-02] MEDS: 0.9% NaCl Peripheral Flush Adult/Peds IV (21:07)
[2019-06-02] MEDS: Metoprolol Tartrate 25 MG Tablet PO (21:08)
[2019-06-02] MEDS: Ipratropium/Albuterol Sulfate 3 ML AMPUL.NEB INHALATION (22:31)
[2019-06-03] VITALS (14 sets, daily range): BP systolic 118–131; BP diastolic 53–75; PULSE 53–75; RESP 16–18; TEMP 36.4–36.7; O2SAT 93–97
--- NOTE | 2019-06-03 01:21 | NURSING ---
Old pena catheter removed and new pena catheter placed per MD orders. Per patient and , catheter to remain in until patient follows up with his surgeon that completed his bariatric sleeve surgery.
[2019-06-03] MEDS: oxyCODONE 5 MG Tablet PO ×3 (02:34→23:43)
[2019-06-03 03:11] LABS: Absolute Lymphocyte Count 1.08 X10^3/uL (0.83-4.51); Absolute Neutrophil Count 4.2 X10^3/uL (2.0-7.7); Basophil# 0.03 X10^3/uL; Basophil% 0.5 % (0-1); Eosinophil# 0.15 X10^3/uL; Eosinophils% 2.5 % (0-5); Hematocrit 35.5 % (40-54); Hemoglobin 10.7 g/dL (13.0-16.5); Lymphocyte # 1.08 X10^3/ul (4.0); Lymphocyte % 17.9 % (19-41); Mean Corp Hgb Conc 30.1 g/dL (32-36); Mean Corpuscular Hgb 21.6 pg (27.0-32.0); Mean Corpuscular Volume 71.6 fL (80-94); Monocyte% 8.3 % (0-10); NRBC Flagged by Analyzer 0 % (0-5); Neutrophil # 4.24 X10^3/uL (2.7-7.7); Neutrophil % 70.5 % (47-70); Platelet Count 228 K/mm3 (150-450); RBC Distribution Width CV 19.8 % (11.6-14.6); RBC Distribution Width SD 49.4 fl (35.1-43.9); Red Blood Count 4.96 M/mm3 (4.6-6.2)
[2019-06-03 05:24] LABS: ALB/GLOB Ratio 0.6 RATIO (0.9-2.4); AST(SGOT) 63 U/L (15-37); Alanine Aminotransfer ALT/SGPT 109 U/L (16-61); Alkaline Phosphatase 152 U/L (45-117); Anion Gap 9 (5-15); BUN 31 mg/dL (7-18); BUN/Creat Ratio 31.3 RATIO (10-20); Calcium,Total 8.7 mg/dL (8.5-10.1); Chloride 104 mmol/L (98-107); Creatinine, Serum 0.99 mg/dL (0.70-1.30); EST Glomerular Filtration Rate 87 mL/min (>60); Est Glom Filt Rate - Afr Amer 105 mL/min (>60); Estimated Creatinine Clearance 121.82 ml/min; Globulin 4.7 g/dL (2.2-4.2); Glucose 91 mg/dL (74-106); Potassium 3.8 mmol/L (3.5-5.1); Protein, Total 7.7 g/dL (6.4-8.2); Sodium Level 138 mmol/L (136-145)
--- NOTE | 2019-06-03 05:55 | ECHOCS_ITS ---
Reason For Study: SYNCOPE/NEAR SYNCOPE Procedure This was a 2D Doppler, Color Flow transthoracic echocardiogram. The study was technically difficult. Due to body habitus. Contrast injection was performed. Exam performed portable in patient room. Left Ventricle Normal LV size. Mild concentric left ventricular hypertrophy. Left ventricular systolic function is normal. The estimated ejection fraction is 55 %. No regional wall motion abnormalities noted. Right Ventricle Normal RV size. Normal systolic function. Tricuspid Valve The tricuspid valve is not well visualized. Aortic Valve The aortic valve is not well visualized. Great Vessels Normal aortic root. The pulmonary artery is normal size. Normal inferior vena cava. Pericardium/Pleural No pericardial effusion. Medication Diluted definity 5.0ml given slow IV push to enhance endocardial definition. MMode/2D Measurements & Calculations LVIDd: 7.5 cm IVSd: 1.3 cm Ao root diam: 3.7 cm LVIDs: 5.2 cm LVPWd: 1.3 cm RVDd: 5.0 cm FS: 31.1 % LAV(MOD-bp): 97.0 ml LA dimension(2D): 5.3 cm LA A4 area: 27.4 cm2 LAV(MOD-bp) Indexed: 29.2 ml/m2 LAV(MOD-sp2): 100.5 ml LAV(MOD-sp4): 90.6 ml RA A4 area: 20.5 cm2 Time Measurements MV dec time: 0.22 sec Doppler Measurements & Calculations MV E max pepito: 62.5 cm/sec Lat Peak E' Pepito: 8.5 cm/sec Med Peak E' Pepito: 9.8 cm/sec MV A max pepito: 46.2 cm/sec E/E' lat: 7.4 E/E' med: 6.4 MV E/A: 1.4 Ao V2 max: 179.6 cm/sec LV V1 max: 92.5 cm/sec PA V2 max: 105.0 cm/sec Ao max P.9 mmHg LV V1 max P.4 mmHg Interpretation Summary Normal LV size. Left ventricular systolic function is normal. The estimated ejection fraction is 55 %. Mild concentric left ventricular hypertrophy. Contrast injection was performed. Ordering Physician: Ena Amaya Referring Physician: Brian Johnson Performed By: Alberta Bateman, KATHY, RVT
[2019-06-03] MEDS: Enoxaparin 60 MG/0.6 ML Syringe SC ×2 (06:05→17:54)
[2019-06-03] MEDS: Ipratropium/Albuterol Sulfate 3 ML AMPUL.NEB INHALATION ×2 (06:40→18:40)
[2019-06-03] MEDS: 0.9% Normal Saline 1,000 ML 100 ML IV ×2 (08:05→20:45)
[2019-06-03] MEDS: Pantoprazole Sodium 20 MG Tablet PO (08:06)
[2019-06-03] MEDS: Aspirin E.C. 81 MG Tablet PO (08:06)
[2019-06-03] MEDS: Metoprolol Tartrate 25 MG Tablet PO ×2 (09:56→21:04)
[2019-06-03] MEDS: Isosorbide Mononitrate 20 MG Tablet 10 MG PO (09:56)
[2019-06-03] MEDS: Sertraline 100 MG Tablet PO (09:56)
[2019-06-03] MEDS: Rivaroxaban 20 MG Tablet PO (11:27)
[2019-06-03 12:27] LABS: Vitamin B12 950 pg/mL (211-911)
--- NOTE | 2019-06-03 13:01 | PN_ITS ---
<Cal Narvaez - Last Filed: 06/03/19 14:27> Patient Problems: Active and Suspected Problems (Last Reviewed 03/05/19 @ 09:44 by Keke Mcintosh) Near syncope (Acute) UTI (urinary tract infection) (Acute) NURYS (acute kidney injury) (Acute) - Physical Exam Vital Signs Temp Pulse Resp BP Pulse Ox 97.7 F L 59 L 16 120/54 L 93 06/03/19 09:53 06/03/19 09:56 06/03/19 09:53 06/03/19 09:53 06/03/19 09:53 Oxygen Delivery Method Room Air Weight: 495 lb 9.586 oz Body Mass Index (BMI) 56.9 Intake and Output for Last 24 Hours 06/01/19 06/02/19 06/03/19 23:59 23:59 23:59 Intake Total 317.58 / 317.58 1611.67 / 1611.67 Output Total 3350 / 3350 Balance 317.58 / 317.58 -1738.33 / -1738.33 Microbiology Past 72 Hours 06/02/19 18:55 Urine Culture - Preliminary Urine Catheter - Catheter Gram negative em Laboratory Tests Past 24 Hrs 06/02/19 06/02/19 06/02/19 16:46 16:46 16:46 WBC 9.1 RBC 5.64 Hgb 12.4 L Hct 41.3 MCV 73.2 L MCH 22.0 L MCHC 30.0 L RDW Std Deviation 50.5 H RDW Coeff of Alee 20.0 H Plt Count 344 MPV 9.9 Immature Gran % (Auto) 0.200 Neut % (Auto) 79.8 H Lymph % (Auto) 11.4 L [place] % (Auto) 6.9 Eos % (Auto) 1.4 Baso % (Auto) 0.3 Absolute Neuts (auto) 7.2 Absolute Lymphs (auto) 1.03 Nucleated RBC % 0 Sodium 134 L Potassium 4.3 Chloride 101 Carbon Dioxide 27.0 Anion Gap 6 BUN 33 H Creatinine 1.36 H Estim Creat Clear Calc 88.67 Est GFR (MDRD) Af Amer 73 Est GFR (MDRD) Non-Af 60 BUN/Creatinine Ratio 24.3 H Glucose 94 Calcium 9.2 Magnesium Iron TIBC Iron Saturation Ferritin Total Bilirubin AST ALT Alkaline Phosphatase Troponin I < 0.015 B-Natriuretic Peptide 11.6 Total Protein Albumin Globulin Albumin/Globulin Ratio Vitamin B12 Folate Urine Color Urine Clarity Urine pH Ur Specific [place] Urine Protein Urine Glucose (UA) Urine Ketones Urine Occult Blood Urine Nitrite Urine Bilirubin Urine Urobilinogen Ur Leukocyte Esterase Urine RBC Urine WBC Ur Squamous Epith Cells Urine Bacteria Urine Mucus 06/02/19 06/02/19 06/02/19 16:46 18:55 19:50 WBC RBC Hgb Hct MCV MCH MCHC RDW Std Deviation RDW Coeff of Alee Plt Count MPV Immature Gran % (Auto) Neut % (Auto) Lymph % (Auto) [place] % (Auto) Eos % (Auto) Baso % (Auto) Absolute Neuts (auto) Absolute Lymphs (auto) Nucleated RBC % Sodium Potassium Chloride Carbon Dioxide Anion Gap BUN Creatinine Estim Creat Clear Calc Est GFR (MDRD) Af Amer Est GFR (MDRD) Non-Af BUN/Creatinine Ratio Glucose Calcium Magnesium 2.1 Iron 44 L TIBC 341 Iron Saturation 12.9 L Ferritin 118 Total Bilirubin AST ALT Alkaline Phosphatase Troponin I B-Natriuretic Peptide Total Protein Albumin Globulin Albumin/Globulin Ratio Vitamin B12 950 H Folate 12.10 Urine Color Yellow Urine Clarity Sl. Cloudy Urine pH 6.0 Ur Specific [place] 1.030 Urine Protein 100 H Urine Glucose (UA) Normal Urine Ketones 5 H Urine Occult Blood 150 H Urine Nitrite Positive H Urine Bilirubin 1 H Urine Urobilinogen 4 H Ur Leukocyte Esterase 500 H Urine RBC 0-5 SEEN Urine WBC 50-100 SEEN Ur Squamous Epith Cells 0-5 SEEN Urine Bacteria 1+ Urine Mucus 0 SEEN 06/02/19 06/02/19 06/03/19 20:40 23:43 02:20 WBC 6.0 RBC 4.96 Hgb 10.7 L Hct 35.5 L MCV 71.6 L MCH 21.6 L MCHC 30.1 L RDW Std Deviation 49.4 H RDW Coeff of Alee 19.8 H Plt Count 228 MPV 10.0 Immature Gran % (Auto) 0.300 Neut % (Auto) 70.5 H Lymph % (Auto) 17.9 L [place] % (Auto) 8.3 Eos % (Auto) 2.5 Baso % (Auto) 0.5 Absolute Neuts (auto) 4.2 Absolute Lymphs (auto) 1.08 Nucleated RBC % 0 Sodium Potassium Chloride Carbon Dioxide Anion Gap BUN Creatinine Estim Creat Clear Calc Est GFR (MDRD) Af Amer Est GFR (MDRD) Non-Af BUN/Creatinine Ratio Glucose Calcium Magnesium Iron TIBC Iron Saturation Ferritin Total Bilirubin AST ALT Alkaline Phosphatase Troponin I < 0.015 < 0.015 B-Natriuretic Peptide Total Protein Albumin Globulin Albumin/Globulin Ratio Vitamin B12 Folate Urine Color Urine Clarity Urine pH Ur Specific [place] Urine Protein Urine Glucose (UA) Urine Ketones Urine Occult Blood Urine Nitrite Urine Bilirubin Urine Urobilinogen Ur Leukocyte Esterase Urine RBC Urine WBC Ur Squamous Epith Cells Urine Bacteria Urine Mucus 06/03/19 06/03/19 02:20 02:20 WBC RBC Hgb Hct MCV MCH MCHC RDW Std Deviation RDW Coeff of Alee Plt Count MPV Immature Gran % (Auto) Neut % (Auto) Lymph % (Auto) [place] % (Auto) Eos % (Auto) Baso % (Auto) Absolute Neuts (auto) Absolute Lymphs (auto) Nucleated RBC % Sodium 138 Potassium 3.8 Chloride 104 Carbon Dioxide 25.0 Anion Gap 9 BUN 31 H Creatinine 0.99 Estim Creat Clear Calc 121.82 Est GFR (MDRD) Af Amer 105 Est GFR (MDRD) Non-Af 87 BUN/Creatinine Ratio 31.3 H Glucose 91 Calcium 8.7 Magnesium Iron TIBC Iron Saturation Ferritin Total Bilirubin 1.00 AST 63 H ALT 109 H Alkaline Phosphatase 152 H Troponin I < 0.015 B-Natriuretic Peptide Total Protein 7.7 Albumin 3.0 L Globulin 4.7 H Albumin/Globulin Ratio 0.6 L Vitamin B12 Folate Urine Color Urine Clarity Urine pH Ur Specific [place] Urine Protein Urine Glucose (UA) Urine Ketones Urine Occult Blood Urine Nitrite Urine Bilirubin Urine Urobilinogen Ur Leukocyte Esterase Urine RBC Urine WBC Ur Squamous Epith Cells Urine Bacteria Urine Mucus Assessment/Plan All Active Problems (Last Reviewed 03/05/19 @ 09:44 by Keke Mcintosh) Shortness of breath (Acute) Chest pain (Acute) Near syncope (Acute) UTI (urinary tract infection) (Acute) NURYS (acute kidney injury) (Acute) Code Visit Addendum: S: Pt seen and examined this AM. No further dizziness/LH. This was occurring with standing at home over the past two days. One episode he stood up, his eyes rolled back and he felt back into a chair, and immediately came to (per ). He has had a pena in place since prior to his gastric bypass ([place]) so that they could have accurate tracking of I/O while they diuresed him. He states prior to this he had no issues urinating on his own, and had no urinary retention. He has no fevers/chills. No abdominal pain. Pena was changed in the ER. He also states his edema is much better. He uses gracia wraps at home daily and follows [facility]. Overall he states that he feels much better today. O: VSS, afebrile. No leukcoytosis. Some microcytic anemia. General: Resting comfortably NAD Psych: A/Ox3 normal affect HEENT: [place] AT OK Neck: Supple NT CV: RRR no m/t/r/g/h Resp: CTA Abd: [id number] Soft NT no guarding or rigidity morbidly obese, surgical sites nonac agdaagux. Ext: lymphedema severe prox and distal LE BL. No open sores or drainage. Skin: W/D normal turgor Lymph/Heme: No active bleeding or adenopathy Neuro: CN2-12 intact A/P: 1. Near syncope 2/2 UTI, catheter associated - cath changed in ER. 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 Orthos are negative and he has no further dizziness. Plan to DC pena tomorrow and check post void. Echo unremarkable. Tele unremarkable. Trop neg x 3. BNP neg, 2. Lymphedema - currently below baseline due to recent heavy diureses for pre surgical optimization. GRACIA wrap daily, follow up with [place] [facility]. 3. Iron def anemia - suspect iron def. 2/2 malapsorption from gastric bipass. Venofer x1. 4. NURYS - resolved. 5. Hx PE - continue xarelto. 6. Morbid obesity - s/p recent gastric bypass at [facility]. 7. Chronic diastolic CHF - no exacberation 8. HTN/HLD - home meds 9. COPD and CRISTINO - breathing stable. Does not use CPAP. PRN aerosols. DVT ppx: xarelto DC planning: likely home 24-48 hours await final cx and voiding trial in AM. This patient was seen by Cal Narvaez PA-C under the supervision of Doctor Celia. <Leslie Yang - Last Filed: 06/03/19 18:17> Subjective: Ceftriaxone day #2 44-year-old male admitted with near syncope. Recently underwent gastric Bypass surgery. Has a chronic Pena. UTI present at admission. Culture is growing a gram-negative em. All events of the past 24 hours of been reviewed. Afebrile since admission Vital signs are stable. Fluid balance since admission is -1738. weight-195 pounds All lab was personally reviewed. White blood cell count is 6.0 with 70% neutrophils. Hemoglobin is 10.7 with an MCV of 71.6 and an elevated RDW standard deviation at 49.4. Platelets are within normal limits. Sodium today is 138, up from 134 to admission. BUN is 31 with a creatinine of 0.99, down from 1.36 at admission. Baseline creatinine ranges from 0.94-1.03 over the past year. Serial cardiac enzymes were negative. LFTs did show an elevated AST at 63, elevated ALT at 109 and a mildly increased alkaline phosphatase at 152. Mild elevations in LFTs are new since July 2018. B12 and folate are within normal limits. Serum iron is low at 44 and the iron saturation is low at 12.9. Ferritin is normal at 118 however the patient recently had surgery and has considerable inflammation so I suspect he is iron deficient. No blood cultures were sent The patient was seen independently and in conjunction with EDNA Bejarano. I have reviewed his progress note and agree with his assessment. Orders have been written. - Physical Exam General: Alert, Oriented x3, Cooperative, No apparent distress HEENT: Atraumatic, PERRLA, EOMI, Normocephalic Oral: Moist Mucosa Neck: Supple, No Nuchal Rigidity, Trachea Midline Lungs: Clear to auscultation, Diminished Cardiovascular: Regular rate, Regular Rhythm, Normal S1, Normal S2, No murmurs, No rub noted, No Gallop, - - Telemetry shows normal sinus rhythm with no ectopy Abdomen: Bowel Sounds Present, Soft, Non Tender, Non-Distended, Obese - with a very large pannus Extremities: - - severe edema of the LE's and the scrotum. Skin: - - stasis dermatitis and stasis hyperpigmentation of the the LE's Neurological: Cranial nerves II-XII grossly intact, Neuro grossly intact Psych/Mental Status: Normal Affect, Appropriate Vital Signs Temp Pulse Resp BP Pulse Ox 97.7 F L 59 L 16 120/54 L 93 06/03/19 09:53 06/03/19 09:56 06/03/19 09:53 06/03/19 09:53 06/03/19 09:53 Oxygen Delivery Method Room Air Weight: 495 lb 9.586 oz Body Mass Index (BMI) 56.9 Intake and Output for Last 24 Hours 06/01/19 06/02/19 06/03/19 23:59 23:59 23:59 Intake Total 317.58 / 317.58 1611.67 / 1611.67 Output Total 3350 / 3350 Balance 317.58 / 317.58 -1738.33 / -1738.33 Microbiology Past 72 Hours 06/02/19 18:55 Urine Culture - Preliminary Urine Catheter - Catheter Gram negative em Laboratory Tests Past 24 Hrs 06/02/19 06/02/19 06/02/19 16:46 16:46 16:46 WBC 9.1 RBC 5.64 Hgb 12.4 L Hct 41.3 MCV 73.2 L MCH 22.0 L MCHC 30.0 L RDW Std Deviation 50.5 H RDW Coeff of Alee 20.0 H Plt Count 344 MPV 9.9 Immature Gran % (Auto) 0.200 Neut % (Auto) 79.8 H Lymph % (Auto) 11.4 L [place] % (Auto) 6.9 Eos % (Auto) 1.4 Baso % (Auto) 0.3 Absolute Neuts (auto) 7.2 Absolute Lymphs (auto) 1.03 Nucleated RBC % 0 Sodium 134 L Potassium 4.3 Chloride 101 Carbon Dioxide 27.0 Anion Gap 6 BUN 33 H Creatinine 1.36 H Estim Creat Clear Calc 88.67 Est GFR (MDRD) Af Amer 73 Est GFR (MDRD) Non-Af 60 BUN/Creatinine Ratio 24.3 H Glucose 94 Calcium 9.2 Magnesium Iron TIBC Iron Saturation Ferritin Total Bilirubin AST ALT Alkaline Phosphatase Troponin I < 0.015 B-Natriuretic Peptide 11.6 Total Protein Albumin Globulin Albumin/Globulin Ratio Vitamin B12 Folate Urine Color Urine Clarity Urine pH Ur Specific [place] Urine Protein Urine Glucose (UA) Urine Ketones Urine Occult Blood Urine Nitrite Urine Bilirubin Urine Urobilinogen Ur Leukocyte Esterase Urine RBC Urine WBC Ur Squamous Epith Cells Urine Bacteria Urine Mucus 06/02/19 06/02/19 06/02/19 16:46 18:55 19:50 WBC RBC Hgb Hct MCV MCH MCHC RDW Std Deviation RDW Coeff of [place]lee Plt Count MPV Immature Gran % (Auto) Neut % (Auto) Lymph % (Auto) [place] % (Auto) Eos % (Auto) Baso % (Auto) Absolute Neuts (auto) Absolute Lymphs (auto) Nucleated RBC % Sodium Potassium Chloride Carbon Dioxide Anion Gap BUN Creatinine Estim Creat Clear Calc Est GFR (MDRD) Af Amer Est GFR (MDRD) Non-Af BUN/Creatinine Ratio Glucose Calcium Magnesium 2.1 Iron 44 L TIBC 341 Iron Saturation 12.9 L Ferritin 118 Total Bilirubin AST ALT Alkaline Phosphatase Troponin I B-Natriuretic Peptide Total Protein Albumin Globulin Albumin/Globulin Ratio Vitamin B12 950 H Folate 12.10 Urine Color Yellow Urine Clarity Sl. Cloudy Urine pH 6.0 Ur Specific [place] 1.030 Urine Protein 100 H Urine Glucose (UA) Normal Urine Ketones 5 H Urine Occult Blood 150 H Urine Nitrite Positive H Urine Bilirubin 1 H Urine Urobilinogen 4 H Ur Leukocyte Esterase 500 H Urine RBC 0-5 SEEN Urine WBC 50-100 SEEN Ur Squamous Epith Cells 0-5 SEEN Urine Bacteria 1+ Urine Mucus 0 SEEN 06/02/19 06/02/19 06/03/19 20:40 23:43 02:20 WBC 6.0 RBC 4.96 Hgb 10.7 L Hct 35.5 L MCV 71.6 L MCH 21.6 L MCHC 30.1 L RDW Std Deviation 49.4 H RDW Coeff of Alee 19.8 H Plt Count 228 MPV 10.0 Immature Gran % (Auto) 0.300 Neut % (Auto) 70.5 H Lymph % (Auto) 17.9 L [place] % (Auto) 8.3 Eos % (Auto) 2.5 Baso % (Auto) 0.5 Absolute Neuts (auto) 4.2 Absolute Lymphs (auto) 1.08 Nucleated RBC % 0 Sodium Potassium Chloride Carbon Dioxide Anion Gap BUN Creatinine Estim Creat Clear Calc Est GFR (MDRD) Af Amer Est GFR (MDRD) Non-Af BUN/Creatinine Ratio Glucose Calcium Magnesium Iron TIBC Iron Saturation Ferritin Total Bilirubin AST ALT Alkaline Phosphatase Troponin I < 0.015 < 0.015 B-Natriuretic Peptide Total Protein Albumin Globulin Albumin/Globulin Ratio Vitamin B12 Folate Urine Color Urine Clarity Urine pH Ur Specific [place] Urine Protein Urine Glucose (UA) Urine Ketones Urine Occult Blood Urine Nitrite Urine Bilirubin Urine Urobilinogen Ur Leukocyte Esterase Urine RBC Urine WBC Ur Squamous Epith Cells Urine Bacteria Urine Mucus 06/03/19 06/03/19 02:20 02:20 WBC RBC Hgb Hct MCV MCH MCHC RDW Std Deviation RDW Coeff of [place]lee Plt Count MPV Immature Gran % (Auto) Neut % (Auto) Lymph % (Auto) [place] % (Auto) Eos % (Auto) Baso % (Auto) Absolute Neuts (auto) Absolute Lymphs (auto) Nucleated RBC % Sodium 138 Potassium 3.8 Chloride 104 Carbon Dioxide 25.0 Anion Gap 9 BUN 31 H Creatinine 0.99 Estim Creat Clear Calc 121.82 Est GFR (MDRD) Af Amer 105 Est GFR (MDRD) Non-Af 87 BUN/Creatinine Ratio 31.3 H Glucose 91 Calcium 8.7 Magnesium Iron TIBC Iron Saturation Ferritin Total Bilirubin 1.00 AST 63 H ALT 109 H Alkaline Phosphatase 152 H Troponin I < 0.015 B-Natriuretic Peptide Total Protein 7.7 Albumin 3.0 L Globulin 4.7 H Albumin/Globulin Ratio 0.6 L Vitamin B12 Folate Urine Color Urine Clarity Urine pH Ur Specific [place] Urine Protein Urine Glucose (UA) Urine Ketones Urine Occult Blood Urine Nitrite Urine Bilirubin Urine Urobilinogen Ur Leukocyte Esterase Urine RBC Urine WBC Ur Squamous Epith Cells Urine Bacteria Urine Mucus Medical Necessity - Tobacco Use Smoking Status: Former smoker Tobacco Use: Cigarettes, Chew Assessment/Plan Impressions 1. Near syncope more likely than not due to IV volume depletion with orthostatic Hypotension. Furosemide is on hold and the patient is currently being hydrated with normal saline at 100 cc/h. 2. Complicated UTI related to pena catheter, present at admission, in a pt with a pena catheter placed for recent Gastric bypass therapy for the purpose of accurate I&O to optimize diuresis prior to surgery 3. Microcytic iron deficiency anemia - iron sucrose given today....will likely need OP IV iron because of Gastric bypass and chronic PPI both of which decrease the absorption of iron. He is also on Xarelto. Check a hemoccult stool 4. Abnormal LFTs of unclear etiology. 5. NURYS - resolved with hydration 6. HX of PE on chronic anticoagulation with Xarelto 7. Chronic diastolic congestive heart failure 8. Mild left ventricular hypertrophy 9. CRISTINO - does not use CPAP 10. HTN/HLD - continue to hold lisinopril in light of orthostatic hypotension. Continue the Metoprolol 11. chronic stasis dermatitis and hyperpigmentation of the LE's due to long standing venous insufficiency 12. suspected pulmonary HTN due to untreated CRISTINO Would need a right heart cath to prove this because ECHO is poor quality due to the patient's body habitus Denies any hx of Cardiac disease and had clearance from Cardiology prior to bypass surgery Await the results of the urine culture prior to discharging home on appropriate antibiotic. Recheck orthostatic vital signs in the a.m. Why is he on both Enoxaparin and Xarelto? Code Visit Inpatient E&M: 63278 Subs Hosp L2
--- NOTE | 2019-06-03 13:25 | CASEMGMT ---
RN CM Assessment Presentation: near Syncope. Acute Cystitis. Recent Bariatric surgery on 05/27/19 Intro role of CM and purpose of RN CM assessment. Demographics, PCP and Pharmacy verified. Pt is awake, alert and able to participate in assessment. Pt states he was in [facility] unit prior to his surgery on 05/27/19. Pt was then dc'd home 05/28/19 with order for [facility]OT. Pt states he only uses crutches for ambulation. PCP: Dr. Johnson Specialists: Surgeon @ [facility] for Bariatric Surgery Preferred Pharmacy: [facility] Insurance: [facility] Prescription Benefit: yes LNOK: Genny Bobby Living Arrangements: Lives in one story home with , no steps into home. 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 Transportation: or mother drive. Pt states his mother would provide transportation as her car was able to accommodate him. With weight loss, pt hopes to be able to travel in regular vehicles soon. DME: crutches, Cpap HHC: [facility]. Call to [facility]. Notified pt is @ [facility]. Per rep, pt had PT/OT orders and they request resumption of care order for PT/OT on dc. PH: FX: [phone] Patient DC goals: Home DC PLAN: Anticipate return home on discharge. PT/OT evaluations are pending. Renuka POON RN AC
--- NOTE | 2019-06-03 13:55 | PT ---
Discussed and demonstrated allowing increased time from supine>sit>stand. Completed at bedside, then after pt went to the bathroom, pt c/o slight light headedness--he then stood to allow symptoms to resolve before amb to recliner.
[2019-06-03] MEDS: Atorvastatin Calcium 40 MG Tablet PO (21:03)
[2019-06-03] MEDS: Ceftriaxone 1 GM/50 ML BAG IV (21:04)
[2019-06-03] MEDS: ALPRAZolam 0.25 MG Tablet PO (22:27)
[2019-06-03] MEDS: 0.9% NaCl Peripheral Flush Adult/Peds IV (23:27)
[2019-06-04] VITALS (9 sets, daily range): BP systolic 121–143; BP diastolic 60–86; PULSE 53–75; RESP 16–18; TEMP 36.4–36.7; O2SAT 94–96
[2019-06-04] MEDS: HYDROcodone Bitartrate/Apap 5/325 Tablet PO (02:58)
[2019-06-04] MEDS: Enoxaparin 60 MG/0.6 ML Syringe SC (05:47)
[2019-06-04] MEDS: oxyCODONE 5 MG Tablet PO (06:03)
[2019-06-04] MEDS: Ipratropium/Albuterol Sulfate 3 ML AMPUL.NEB INHALATION ×2 (06:41→13:01)
[2019-06-04 07:09] LABS: Hematocrit 36.6 % (40-54); Red Blood Count 5.07 M/mm3 (4.6-6.2); White Blood Count 4.7 K/mm3 (4.4-11.0)
[2019-06-04 07:10] LABS: Mean Corp Hgb Conc 30.1 g/dL (32-36); Mean Corpuscular Hgb 21.7 pg (27.0-32.0); Mean Corpuscular Volume 72.2 fL (80-94); Mean Platelet Vol. 10.1 fl (6.2-12.0); Platelet Count 213 K/mm3 (150-450); RBC Distribution Width CV 19.9 % (11.6-14.6); RBC Distribution Width SD 49.7 fl (35.1-43.9)
[2019-06-04] MEDS: Ondansetron 4 MG/2 ML Vial IV (09:06)
[2019-06-04] MEDS: 0.9% Normal Saline 1,000 ML 100 ML IV (09:31)
[2019-06-04 09:41] LABS: Bedside Glucose 108 mg/dL (70-110)
[2019-06-04] MEDS: Pantoprazole Sodium 20 MG Tablet PO (10:02)
[2019-06-04] MEDS: Aspirin E.C. 81 MG Tablet PO (10:02)
[2019-06-04] MEDS: Sertraline 100 MG Tablet PO (10:03)
[2019-06-04] MEDS: 0.9% Normal Saline 1,000 ML 999 ML IV (10:08)
[2019-06-04] MEDS: Isosorbide Mononitrate 20 MG Tablet 10 MG PO (11:19)
[2019-06-04] MEDS: Metoprolol Tartrate 25 MG Tablet PO (11:19)
[2019-06-04] MEDS: Rivaroxaban 20 MG Tablet PO (11:19)
--- NOTE | 2019-06-04 12:23 | PCM.DC ---
- Discharge Diagnoses Current Active Problems: Current Active and Chronic Problems (Last Reviewed 03/05/19 @ 09:44 by Keke Mcintosh) Near syncope (Acute) UTI (urinary tract infection) (Acute) NURYS (acute kidney injury) (Acute) CRISTINO (obstructive sleep apnea) (Chronic) COPD (chronic obstructive pulmonary disease) (Chronic) Former tobacco use (Chronic) Morbid obesity (Chronic) You will use the following diet at home:: Cardiac Your food should be the consistency of: Regular Your liquids should be the consistency of: Regular/Thin Discharge Activity: Return to Normal Activity Allergies/Adverse Reactions: Allergies Penicillins Allergy (Verified 06/02/19 16:50) Unknown Medications to take at Discharge Atorvastatin Calcium [Lipitor] 40 mg PO QHS 09/06/18 Lisinopril 20 mg PO DAILY 09/06/18 aspirin 81 mg tablet,delayed release 81 mg PO DAILY 12/12/18 sertraline 100 mg tablet 100 mg PO DAILY #90 tab 12/12/18 rivaroxaban 20 mg tablet 20 mg PO DAILY #90 tab 01/01/19 isosorbide mononitrate 10 mg tablet 10 mg PO QDAY #90 tab 03/05/19 metoprolol tartrate 25 mg tablet 25 mg PO BID #180 tab 03/05/19 omeprazole 20 mg capsule,delayed release 20 mg PO DAILY #90 cap 03/05/19 Furosemide 40 mg PO BID #60 tab 03/21/19 Bariatric Crutches #2 ea 05/17/19 Enoxaparin [Lovenox] 60 mg SUBCUT Q12H PRN PRN 06/02/19 Ondansetron [Zofran Odt] 4 mg PO Q8H PRN PRN 06/02/19 Oxycodone HCl/Acetaminophen [Oxycodone-Acetaminophen 5-325] 1 ea PO Q4H PRN 06/02/19 ALPRAZolam [Xanax] 0.25 mg PO QHS 06/03/19 Acetaminophen [Tylenol Tablet] 650 mg PO Q6H PRN PRN tablet 06/04/19 Cefadroxil Hydrate [Duricef] 1,000 mg PO DAILY #16 cap 06/04/19 The following prescriptions were given: Cefadroxil Hydrate [Duricef] 1,000 mg PO DAILY #16 cap Transmission Status: Pending to [facility] Primary Care Physician: Brian Johnson MD [Primary Care Provider] - Please follow up with your Primary Care Physician in: 1-2 weeks Test Results: Test results from this visit will be discussed in further detail at your follow-up appointment, if applicable. Please Follow Up With: Bariatric surgeon When: As directed Please Follow Up With: [facility] When: 1-2 weeks Proposed Discharge Date: 06/04/19
--- NOTE | 2019-06-04 12:45 | CASEMGMT ---
Call to [facility] to notify of pt discharge, Galileo voices understanding. SAEED order, H&P, d/c instructions faxed to [facility] at this time. Freedom GALLEGO CM
--- NOTE | 2019-06-04 13:21 | PHA.DC.COU ---
Pharmacy Services has performed discharge medication counseling for this patient. The patient was counseled on the following discharge medications and changes in medications for homegoing review. 1. DURICEF: 1000MG PO DAILY The Reason for Use, instructions for use, and potential side effects were reviewed for all new medications. The patient's questions regarding all of their medications were answered. The patient was able to verbally demonstrate an understanding of their discharge medications.
--- NOTE | 2019-06-04 14:20 | CASEMGMT ---
SW spoke with patient per his request. He asked if he would be able to get transport home. He has no steps to get into his home. [place] [facility] [place] [facility] works with that can do bariatric transport. They did not have any availability. JOHN let patient know and he said he will manage. Tamia ORR
--- NOTE | 2019-06-04 15:03 | DS.PCM_ITS ---
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 Morbid obesity s/p gastric bypass Lymphedema Hx PE Chronic diastolic CHF HTN HLD COPD CRISTINO - Secondary Discharge Diagnosis Chronic Problems (Last Reviewed 03/05/19 @ 09:44 by Keke Mcintosh) CRISTINO (obstructive sleep apnea) (Chronic) COPD (chronic obstructive pulmonary disease) (Chronic) Former tobacco use (Chronic) Morbid obesity (Chronic) Hemangioma of skin and subcutaneous tissue (Chronic) 7 cm vascular cluster lesions x6 left proximal posterior thigh by the gluteal crease 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 (Chronic) 7 cm vascular cluster lesions x6 left proximal posterior thigh by the gluteal crease Dyspnea on exertion (Chronic) Hyperlipidemia (Chronic) Incomplete right bundle branch block (Chronic) Nonhealing ulcer of left lower extremity with fat layer exposed (Chronic) left anterior lower leg Chronic acquired lymphedema (Chronic) Ulcer of left thigh (Chronic) anterior and posterior thigh Pulmonary embolism (Chronic) Chronic diastolic heart failure (Chronic) Super obesity (Chronic) Essential (primary) hypertension (Chronic) Hospital Course and Treatment Imaging Results: RAD/Chest 1 View (Portable) IMPRESSION: Normal x-ray examination of the chest. Echo: Interpretation Summary Normal LV size. Left ventricular systolic function is normal. The estimated ejection fraction is 55 %. Mild concentric left ventricular hypertrophy. Contrast injection was performed. Operations: None Procedures: 2-D Echocardiogram Summary of Care Provided: Hospital Course: The patient is a 44 year old M with past medical history of morbid obesity status post recent gastric bypass surgery, hypertension, hyperlipidemia, who presented to the emergency room with complaints of near syncope. The patient was getting lightheaded and dizzy when he would stand, he had one episode where he had his eyes rolled back as had and he fell into a chair immediately coming to his senses. He was brought to the ER and found to have a urinary tract infection as well as acute kidney injury. The patient had had a Pena catheter in place since prior to his surgery. This was put in place so that he could be adequately diuresed to optimize him for surgery. It was not discontinued after surgery. We replaced his Pena catheter in the emergency room. He was placed on IV Rocephin, and IV fluids for hydration, and admitted to the PCU. He had negative orthostatic vital signs. Urine cultures were sent and demonstrated Proteus mirabilis. He was also found to have mild anemia with significant microcytosis, follow-up iron studies were confirmatory for iron deficiency. The patient does take a PPI and just had gastric bypass surgery so it suspected that he has malabsorption issues leading to his iron deficiency. We gave him 2 doses of IV Venofer while he is here and he will likely need further iron replacement as an outpatient. We also maintained him on telemetry and he had no acute issues. An echocardiogram was obtained with results as above, no acute findings. Patient was discharged home in stable condition and will complete a total of 10 days of antibiotic therapy. We discontinued his Pena catheter and performed a post void residual study prior to discharge. Before his surgery he had no issues emptying his bladder, no history of urinary retention. He was advised to follow-up with his PCP in 1 to 2 weeks, and follow-up with his bariatric surgeon as previously directed. He needs to continue daily GRACIA wraps for his lymphedema and follow up with the [facility] where he was previously seen. This patient was seen by Cal Narvaez PA-C under the supervision of Doctor Celia. [] - Physical Exam Vital Signs Temp Pulse Resp BP Pulse Ox 97.5 F L 75 18 128/82 H 96 06/04/19 14:02 06/04/19 14:02 06/04/19 14:02 06/04/19 14:02 06/04/19 14:02 Oxygen Delivery Method Room Air Weight: 492 lb 15.257 oz Body Mass Index (BMI) 56.9 Orthostatic Vital Signs Start: 06/03/19 14:33 Freq: q24h Status: Active Protocol: Activity Type Activity Date Activity User E-Sign Co-Sign Detail Recorded Client Recorded Date Recorded By Document 06/04/19 14:00 [facility] [id number] 06/04/19 14:02 [facility] 06/04/19 14:00 Orthostatic Vitals Standing -Blood Pressure (90/60-120/80) 128/82 H -Extremity Use Right Arm -Pulse Rate (60-100) 75 Sitting -Blood Pressure (90/60-120/80) 143/86 H -Extremity Use Right Arm -Pulse Rate (60-100) 58 L Lying -Blood Pressure (90/60-120/80) 139/60 H -Extremity Use Right Arm -Pulse Rate (60-100) 55 L Intake and Output for Last 24 Hours 06/02/19 06/03/19 06/04/19 23:59 23:59 23:59 Intake Total 317.58 / 317.58 3370.01 / 3370.01 2208.33 / 2208.33 Output Total 5700 / 5700 1500 / 1500 Balance 317.58 / 317.58 -2329.99 / -2329.99 708.33 / 708.33 Microbiology Past 72 Hours 06/02/19 18:55 Urine Culture - Final Urine Catheter - Catheter Proteus mirabilis Laboratory Tests Past 24 Hrs 06/03/19 06/04/19 06/04/19 02:20 05:39 09:36 WBC 4.7 RBC 5.07 Hgb 11.0 L Hct 36.6 L MCV 72.2 L MCH 21.7 L MCHC 30.1 L RDW Std Deviation 49.7 H RDW Coeff of Alee 19.9 H Plt Count 213 MPV 10.1 Iron Cancelled TIBC Cancelled Iron Saturation Cancelled Ferritin Cancelled Miscellaneous Test Pending POC Glucose 06/04/19 09:21 POC Glucose 108 Discharge Activity: Return to Normal Activity Home Medications: Medications to take at Discharge aspirin 81 mg tablet,delayed release 81 mg PO DAILY 12/12/18 sertraline 100 mg tablet 100 mg PO DAILY #90 tab 12/12/18 rivaroxaban 20 mg tablet 20 mg PO DAILY #90 tab 01/01/19 omeprazole 20 mg capsule,delayed release 20 mg PO DAILY #90 cap 03/05/19 Bariatric Crutches #2 ea 05/17/19 Ondansetron [Zofran Odt] 4 mg PO Q8H PRN PRN 06/02/19 Oxycodone HCl/Acetaminophen [Oxycodone-Acetaminophen 5-325] 1 ea PO Q4H PRN 06/02/19 ALPRAZolam [Xanax] 0.25 mg PO QHS 06/03/19 Acetaminophen [Tylenol Tablet] 650 mg PO Q6H PRN PRN tab 06/04/19 atorvastatin 40 mg tablet 40 mg PO QHS #90 tab 06/12/19 fluticasone propionate 50 mcg/actuation nasal spray,suspension 2 spray INTRANASAL DAILY #15.8 g 06/12/19 lisinopril 10 mg tablet 10 mg PO DAILY #90 tab 06/12/19 metoprolol tartrate 25 mg tablet 12.5 mg PO BID #180 tab 06/12/19 furosemide 40 mg tablet 40 mg PO DAILY #60 tab 06/21/19 Primary Care Physician: Brian Johnson MD [Primary Care Provider] - Please follow up with your Primary Care Physician in: 1-2 weeks Please Follow Up With: Bariatric surgeon When: As directed Please Follow Up With: [facility] When: 1-2 weeks Please Follow Up With: Brian Johnson MD Disposition: Home Minutes spent on discharge:: 35 Patient Condition:: Stable Medical Necessity - Tobacco Use Smoking Status: Former smoker Tobacco Use: Cigarettes, Chew Meaningful Use Info Meaningful Use Diagnoses (Choose all that apply): None applicable <TylernatividadLeslie - Last Filed: 06/25/19 08:31> Discharge Date and Diagnosis - Secondary Discharge Diagnosis Chronic Problems (Last Reviewed 06/21/19 @ 11:40 by EDNA Bell) CRISTINO (obstructive sleep apnea) (Chronic) COPD (chronic obstructive pulmonary disease) (Chronic) Former tobacco use (Chronic) Morbid obesity (Chronic) Hemangioma of skin and subcutaneous tissue (Chronic) 7 cm vascular cluster lesions x6 left proximal posterior thigh by the gluteal crease 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 (Chronic) 7 cm vascular cluster lesions x6 left proximal posterior thigh by the gluteal crease Dyspnea on exertion (Chronic) Hyperlipidemia (Chronic) Incomplete right bundle branch block (Chronic) Nonhealing ulcer of left lower extremity with fat layer exposed (Chronic) left anterior lower leg Chronic acquired lymphedema (Chronic) Ulcer of left thigh (Chronic) anterior and posterior thigh Pulmonary embolism (Chronic) Chronic diastolic heart failure (Chronic) Super obesity (Chronic) Essential (primary) hypertension (Chronic) Hospital Course and Treatment Summary of Care Provided: The patient is a 44 year old M who recently underwent gastric bypass surgery. He was discharged with a pena catheter. He presented to the ED after having a syncopal episode at home. He fell back into a chair and did not injure himself. He was found to have a UTI. Cultures were + for Proteus Mirabilis andhe was treated with appropriate antibiotics. Orthostatics were negative but the BUN and CREAT were elevated and he was hydrated with good improvement.He was found to have iron deficiency and he was treated with Iron sucorse infusions X 2 at DC. He may need to have additional IV iron due to malabsorption in a pt who has had gastric bypass and takes a PPI. Voiding trial prior to /dc had no significant residual and the pena was discontinued.] I agree with he PE as documented by Cal with no exceptions. Impressions 1. UTI due to Proteus Mirablilis - present at admission 2. Clinical dehydration with syncope 3. iron deficiency 4. NURYS due to dehydration and infection - Physical Exam Vital Signs Temp Pulse Resp BP Pulse Ox 97.5 F L 58 L 18 128/82 H 96 06/04/19 14:02 06/04/19 15:00 06/04/19 14:02 06/04/19 14:02 06/04/19 14:02 Oxygen Delivery Method Room Air Weight: 492 lb 15.257 oz Body Mass Index (BMI) 56.9 Code Visit Inpatient E&M: 86969 Disch Hosp
--- NOTE | 2019-06-05 14:02 | CASEMGMT ---
Case Management DC F/u call: DC Date: 06/04/19 DC Diagnosis: Near syncope (Acute), UTI (urinary tract infection) (Acute), NURYS (acute kidney injury) (Acute) DC Disposition: Home with resumption of [facility]/STRATA: 06/13 Called patient cell phone on listed demographics, answered, states that he is doing fine and has his f/u appointments scheduled. Denies any issues, questions or concerns with aftercare, medications, or f/u. States that care at [facility] was very good and that all staff explained everything and were very thorough. Violeta Coburn RNCM
== END 2019-06-04 18:36 | disposition home or self-care (01) | DRG 466 ==
LOC: ED 17:19 → PCU 06-03 06:15
PROVIDERS: Physician Assistant; Admitting Provider Family Medicine; Emergency Provider Emergency Medicine; Family Provider Internal Medicine; PCP Internal Medicine; Referring Provider Family Medicine; Visit Provider Internal Medicine
DX: T83.511A Infection and inflammatory reaction due to indwelling urethral catheter, initial encounter (principal); R55 Syncope and collapse; N17.9 Acute kidney failure, unspecified; N39.0 Urinary tract infection, site not specified; B96.4 Proteus (mirabilis) (morganii) as the cause of diseases classified elsewhere; D50.8 Other iron deficiency anemias; K91.2 Postsurgical malabsorption, not elsewhere classified; I89.0 Lymphedema, not elsewhere classified; I11.0 Hypertensive heart disease with heart failure; I50.32 Chronic diastolic (congestive) heart failure; E78.5 Hyperlipidemia, unspecified; J44.9 Chronic obstructive pulmonary disease, unspecified; G47.33 Obstructive sleep apnea (adult) (pediatric); D18.01 Hemangioma of skin and subcutaneous tissue; I83.92 Asymptomatic varicose veins of left lower extremity; I45.10 Unspecified right bundle-branch block; L97.922 Non-pressure chronic ulcer of unspecified part of left lower leg with fat layer exposed; L97.129 Non-pressure chronic ulcer of left thigh with unspecified severity; F32.9 Major depressive disorder, single episode, unspecified; F41.9 Anxiety disorder, unspecified; E66.01 Morbid (severe) obesity due to excess calories; Y84.6 Urinary catheterization as the cause of abnormal reaction of the patient, or of later complication, without mention of misadventure at the time of the procedure; Z98.84 Bariatric surgery status; Z68.43 Body mass index [BMI] 50.0-59.9, adult; Z86.711 Personal history of pulmonary embolism; Z87.891 Personal history of nicotine dependence; Z91.19 Patient's noncompliance with other medical treatment and regimen; Z79.01 Long term (current) use of anticoagulants; Z79.82 Long term (current) use of aspirin; Z79.899 Other long term (current) drug therapy
CPT/HCPCS: 36415; 71045; 80048; 80053; 81001; 82607; 82728; 82746; 82962; 83540; 83550; 83735; 83880; 84484; 85025; 85027; 87077; 87086; 87088; 87186; 93005; 93306; 94640; 97116; 97162; 97166; 97530; 97802; 99285; J1756; J7030; Q9957; A4216; C8929; J2405

== ENCOUNTER 2019-07-23 20:11 | Emergency (ER) | payer MEDICAID, SELFPAY ==
[2019-06-21 10:59] VITALS: BMI 57.9
[2019-07-23 20:12] VITALS: BP 110/54; PULSE 86; RESP 20; TEMP 36.2; O2SAT 96; BMI 53.6
--- NOTE | 2019-07-23 20:41 | CT_ITS ---
HISTORY: RUQ AND RLQ PAIN. Gastric sleeve and hernia surgery 05/27/2019. ADDITIONAL HISTORY: None provided. TECHNIQUE: CT images were obtained of the abdomen and pelvis with 100 ml of Isovue 300 IV contrast. A radiation dose optimization technique was used for this scan. Number of images including paperwork: [id number] COMPARISON: None FINDINGS: LOWER THORAX: Dependent atelectasis. Cardiomegaly. LIVER: No concerning focal lesion. Enlarged, right lobe 21 cm. Prominent lateral segment left lobe and caudate lobe, a morphology which can be seen with chronic liver disease. Main portal vein appears prominent measuring 21.5 mm. GALLBLADDER: No radiopaque calculi. BILE DUCTS: No significant biliary dilatation. SPLEEN: Enlarged, 15.7 cm craniocaudal. PANCREAS: Unremarkable. ADRENAL GLANDS: Unremarkable. KIDNEYS/URETERS: 5 mm fat density left renal lesion indicative of angiomyolipoma. BOWEL: Sleeve gastrectomy. Colon is located in the left abdomen and duodenum does not cross the midline compatible with congenital intestinal malrotation. No evidence of obstruction at this time. No bowel obstruction. No significant bowel wall thickening. No localized inflammation. APPENDIX: No evidence of appendicitis. FREE FLUID: No significant free fluid. FREE AIR: None. LYMPH NODES: No pathologic appearing adenopathy. PERITONEUM, RETROPERITONEUM AND MESENTERY: Otherwise unremarkable. VASCULATURE: Unremarkable as imaged. PELVIS: Unremarkable bladder. ABDOMINAL WALL: Soft tissue edema/stranding is present in the periumbilical region without soft tissue gas or localized fluid collection. Patulous inguinal canals. OSSEOUS AND SOFT TISSUE STRUCTURES: No acute skeletal findings. Degenerative changes. CT/Abdomen/Pelvis WITH Contrast IMPRESSION: 1. Edema and stranding about the umbilicus without distinct drainable fluid collection. Findings a postoperative in nature. Correlate with clinical findings. 2. Hepatosplenomegaly. Hepatic morphology concerning for possible chronic liver disease. 3. Congenital intestinal malrotation without evidence of obstruction at this time. 4. Additional findings above. Individualized dose optimization techniques were used for this CT. at 2277 Reported and signed by: Rayna Em MD Electronically Signed: Rayna Em MD at 22:57 EST Tel , Service support ,
--- NOTE | 2019-07-23 20:43 | ED.VIS.GI ---
History of Present Illness Chief Complaint: Abd Pain Informant: Patient - Abdominal Pain/Flank Pain Onset: Days - 3 Context: Gradual Onset Timing: Intermittent Quality: Aching Location: RUQ Current Severity: Moderate Maximum Severity: Severe Worsened by: Movement Relieved by: Nothing Narrative: Patient is a 44-year-old male with history of PE, on Xarelto, chronic lymphedema and recent gastric sleeve surgery presenting with abdominal pain. Patient had a laparoscopic gastric sleeve surgery as well as umbilical hernia repair on 05/27/[address] Estrada. He notes that when he woke up around 3 or 4 in the morning to use the bathroom he knows that he is on pain in his right side. Since then he has had waxing and waning abdominal pain. Every once in a while is very sharp and takes breath away. It does seem to be worse by deep inspiration. Patient also notes movement makes it worse. He denies associated nausea, vomiting change in bowel habits. He denies any fever or chills, chest pain or shortness of breath. He denies any other complaints at this time. He denies any changes into his leg swelling. He is missed a dose of Xarelto today and yesterday but is otherwise been compliant with his medication. Past Medical History - Allergies and Home Meds Allergies/Adverse Reactions: Allergies Penicillins Allergy (Verified 06/21/19 11:04) Unknown Primary Care Physician: Brian Johnson MD [Primary Care Provider] - Past Medical History: - - Hypertension, hyperlipidemia, peripheral vascular disease, PE, diastolic heart failure Surgical History: - - Surgery for cleft lip and cleft palate, tonsillectomy, bilateral hand and finger surgery, pilonidal cyst surgery, recent gastric bypass with gastric sleeve with umbilical hernia repair. Lives: With Family Smoking Status: Former smoker - Family History Maternal Family History: Family History (Last Reviewed 06/21/19 @ 11:40 by EDNA Bell) Father Myocardial infarction Hypertension Heart disease Arthritis Cancer Family History: Reports: Hypertension Paternal Family History: Family History (Last Reviewed 06/21/19 @ 11:40 by DENA Bell) Father Myocardial infarction Hypertension Heart disease Arthritis Cancer Family History: Reports: Cancer, High Cholesterol, Heart Disease, Hypertension Review of Systems General: Denies: Chills, Fever, Sweats Eyes: Denies: Visual changes - bilaterally, Diplopia ENT: Denies: Rhinorrhea, Sore throat Cardiovascular: Denies: Chest pain, Palpitations Respiratory: Reports: Dyspnea - Secondary to abdominal pain. Denies: Cough, Dyspnea on exertion Gastrointestinal: Reports: Abdominal pain - Right upper quadrant. Denies: Nausea, Vomiting, Diarrhea, Melena, Hematochezia Genitourinary: Denies: Dysuria, Hematuria, Frequency Musculoskeletal: Reports: Swelling - Chronic lower extremities, unchanged. Denies: Back pain, Extremity Pain Skin: Denies: Rash, Wounds Neurological: Denies: Headache, Weakness, Numbness Physical Exam Vital Signs/Narrative: Vital Signs Temp Pulse Resp BP Pulse Ox 07/23/19 20:12 97.2 F L 86 20 H 110/54 L 96 Inital Vital Signs reviewed: Yes General: Well nourished, Well developed, Obese, No Acute Distress Head: Normocephalic, Atraumatic Eyes: Perrl, EOMI ENT: Moist mucous membranes, No rhinorrhea Neck: Supple, Nontender Cardiovascular: Regular rate, Regular rhythm, No murmurs Respiratory: No distress, CTA bilaterally, Chest nontender Abdomen: Soft, Nondistended, Normal bowel sounds, Tender - Right upper/lateral abdomen is, Hernia reducible - Ventral, - - Healing laparoscopic surgical incisions on abdomen. Negative for: Guarding, Rebound tenderness, Pulsatile mass, Landeros's sign Back: Nontender, Normal Inspection Extremities: Nontender, Edema - Chronic lymphedema of the lower extremities with chronic skin changes Skin: Normal color, No rash Neurological: Alert, Oriented x3, Cranial nerves II-XII grossly intact, Normal Strength, Normal Sensation Psychological: Normal affect, Normal Mood Diagnostic/Tx/Re-eval Clinical Impression(s) from Imaging Studies Abdomen/Pelvis CT 07/23/19 20:41 IMPRESSION: 1. Edema and stranding about the umbilicus without distinct drainable fluid collection. Findings a postoperative in nature. Correlate with clinical findings. 2. Hepatosplenomegaly. Hepatic morphology concerning for possible chronic liver disease. 3. Congenital intestinal malrotation without evidence of obstruction at this time. 4. Additional findings above. Individualized dose optimization techniques were used for this CT. at 2257 Reported and signed by: Rayna Em MD Electronically Signed: Rayna Em MD at 22:57 EST Tel , Service support , Laboratory Data 07/23/19 07/23/19 07/23/19 20:52 20:52 23:15 WBC 8.6 RBC 4.86 Hgb 11.2 L Hct 35.8 L MCV 73.7 L MCH 23.0 L MCHC 31.3 L RDW Std Deviation 56.4 H RDW Coeff of Alee 21.7 H Plt Count 277 MPV 9.4 Immature Gran % (Auto) 0.200 Neut % (Auto) 82.8 H Lymph % (Auto) 9.9 L [place] % (Auto) 6.0 Eos % (Auto) 0.8 Baso % (Auto) 0.3 Absolute Neuts (auto) 7.1 Absolute Lymphs (auto) 0.85 Nucleated RBC % 0 Platelet Estimate ADEQUATE RBC Morphology N CHROM Anisocytosis 1+ Microcytosis 1+ Ovalocytes RARE Sodium 140 Potassium 3.8 Chloride 104 Carbon Dioxide 30.0 Anion Gap 6 BUN 20 H Creatinine 1.01 Estim Creat Clear Calc 119.40 Est GFR (MDRD) Af Amer 103 Est GFR (MDRD) Non-Af 85 BUN/Creatinine Ratio 19.8 Glucose 94 Calcium 8.9 Total Bilirubin 0.70 AST 24 ALT 52 Alkaline Phosphatase 152 H Total Protein 8.2 Albumin 3.3 Globulin 4.9 H Albumin/Globulin Ratio 0.7 L Lipase 126 Urine Color Yellow Urine Clarity Clear Urine pH 6.0 Ur Specific [place] 1.010 Urine Protein 30 H Urine Glucose (UA) Normal Urine Ketones Negative Urine Occult Blood Negative Urine Nitrite Negative Urine Bilirubin Negative Urine Urobilinogen 4 H Ur Leukocyte Esterase Negative - Medical Decision Making Evaluate for 2 to 3 days of worsening right abdominal pain. Is more in his right upper quadrant/flank area. He appears nontoxic and in no acute distress. His vital signs are normal. Patient's pain is not significantly reproducible on exam. He does not have pain over his gallbladder and has a negative Landeros sign. Patient did have a recent intra-abdominal surgery including a gastric sleeve. CT abdomen and pelvis with contrast obtained which does not show any acute intra-abdominal process. Urinalysis does not show signs of infection or stone. CBC largely normal. CMP does show mildly elevated alkaline phosphatase but is otherwise normal. Discussed the case with surgery on-call, Dr. Sanchez, who is comfortable with outpatient follow-up. Patient is well-appearing and tolerating p.o. He is not having any vomiting and is having normal bowel movements. Exact cause of his pain is not clear, could be muscle skeletal but I cannot rule out a more subtle intra-abdominal process. Patient will follow-up outpatient with his surgeon. Patient is counseled on signs and symptoms requiring return to the emergency room. Patient verbalizes agreement and understand this plan. Patient discharged home in stable and improved condition. ED Disposition - Plan for ED Patient: Disposition: Home or Assisted Living Diagnosis: Abdominal pain Instructions: ABDOMINAL PAIN, Unkown Cause, (Male) Referrals: Brian Johnson MD [Primary Care Provider] - Additional Instructions: Please follow-up with Dr. Pena for repeat abdominal exam. The exact cause of your pain was not found today however I feel that you are safe to follow-up with your surgeon. Return to emergency room with worsening symptoms. Take Tylenol as needed for pain. Drink plenty of fluids.
[2019-07-23] MEDS: 0.9% Normal Saline 1,000 ML 1000 ML IV (20:54)
[2019-07-23 21:03] LABS: Absolute Lymphocyte Count 0.85 X10^3/uL (0.83-4.51); Absolute Neutrophil Count 7.1 X10^3/uL (2.0-7.7); Basophil# 0.03 X10^3/uL; Basophil% 0.3 % (0-1); Eosinophil# 0.07 X10^3/uL; Eosinophils% 0.8 % (0-5); Hematocrit 35.8 % (40-54); Hemoglobin 11.2 g/dL (13.0-16.5); Lymphocyte # 0.85 X10^3/ul (4.0); Lymphocyte % 9.9 % (19-41); Mean Corp Hgb Conc 31.3 g/dL (32-36); Mean Corpuscular Volume 73.7 fL (80-94); Mean Platelet Vol. 9.4 fl (6.2-12.0); Monocyte# 0.52 X10^3/uL; NRBC Flagged by Analyzer 0 % (0-5); Neutrophil # 7.11 X10^3/uL (2.7-7.7); Neutrophil % 82.8 % (47-70); POSITIVE MORPHOLOGY YES; Platelet Count 277 K/mm3 (150-450); RBC Distribution Width CV 21.7 % (11.6-14.6); RBC Distribution Width SD 56.4 fl (35.1-43.9); Red Blood Count 4.86 M/mm3 (4.6-6.2); White Blood Count 8.6 K/mm3 (4.4-11.0)
[2019-07-23 21:13] LABS: Differential Indicated SCAN CRITERIA MET
[2019-07-23 21:27] LABS: Platelet Estimate ADEQUATE (ADEQ)
[2019-07-23 21:28] LABS: Anisocytosis 1+; Microcytosis 1+; Ovalocyte RARE; Red Cell Morphology N CHROM NORMAL (NORM C&C)
[2019-07-23 21:44] LABS: ALB/GLOB Ratio 0.7 RATIO (0.9-2.4); AST(SGOT) 24 U/L (15-37); Alanine Aminotransfer ALT/SGPT 52 U/L (16-61); Albumin, Serum 3.3 g/dL (3.2-5.0); Alkaline Phosphatase 152 U/L (45-117); Anion Gap 6 (5-15); BUN 20 mg/dL (7-18); BUN/Creat Ratio 19.8 RATIO (10-20); Calcium,Total 8.9 mg/dL (8.5-10.1); Chloride 104 mmol/L (98-107); Creatinine, Serum 1.01 mg/dL (0.70-1.30); EST Glomerular Filtration Rate 85 mL/min (>60); Est Glom Filt Rate - Afr Amer 103 mL/min (>60); Globulin 4.9 g/dL (2.2-4.2); Glucose 94 mg/dL (74-106); Lipase 126 U/L (73-393); Potassium 3.8 mmol/L (3.5-5.1); Protein, Total 8.2 g/dL (6.4-8.2); Sodium Level 140 mmol/L (136-145)
[2019-07-23 23:23] LABS: Bacteria 0 SEEN /hpf (None Seen); Red Blood Cells-Urine 0 SEEN /hpf (0-5)
[2019-07-23 23:24] LABS: Color, Urine Yellow (Yellow); Glucose, Dipstick Normal (Normal); Ketone-Dipstick Negative (Negative); Leukocyte Esterase-Dipstick Negative /ul (Negative); Nitrite-Dipstick Negative (Negative); Occult Blood-Urine Negative /ul (Negative); Protein-Dipstick 30 mg/dl (Negative); Urine Bilirubin Dipstick Negative (Negative); Urine Clarity Clear (Clear); Urine Urobilinogen 4 mg/dl (Normal)
[2019-07-23 23:30] LABS: Mucous, Urine 1+ /hpf (<or=2+); Squamous Epithelial Cells - UA 0-5 SEEN /hpf (0-5)
[2019-07-23 23:32] LABS: Hyaline Cast 5-10 SEEN /lpf (0-5); White Blood Cells 0-5 SEEN /hpf (0-5)
[2019-07-23 23:33] LABS: Renal Epithelial Cells 0-5 SEEN /hpf (0-5)
[2019-07-23 23:44] VITALS: BP 121/71; PULSE 72; RESP 18; TEMP 37.1; O2SAT 97
== END 2019-07-23 23:45 | disposition home or self-care (01) ==
PROVIDERS: Emergency Provider Emergency Medicine; Family Provider Internal Medicine; PCP Internal Medicine
DX: R10.11 Right upper quadrant pain (principal); I11.0 Hypertensive heart disease with heart failure; I50.30 Unspecified diastolic (congestive) heart failure; I73.9 Peripheral vascular disease, unspecified; I89.0 Lymphedema, not elsewhere classified; E78.5 Hyperlipidemia, unspecified; E66.9 Obesity, unspecified; Z68.43 Body mass index [BMI] 50.0-59.9, adult; Z86.711 Personal history of pulmonary embolism; Z79.01 Long term (current) use of anticoagulants; Z98.84 Bariatric surgery status; Z79.899 Other long term (current) drug therapy; Z87.891 Personal history of nicotine dependence
CPT/HCPCS: 74177; 80053; 81001; 83690; 85025; 96360; 99283; J7030; Q9967; A4216

== ENCOUNTER → 2019-10-02 13:41 | Outpatient (CLI) | payer MEDICAID, SELFPAY ==
[2019-10-02 13:41] VITALS: BMI 50.9
--- NOTE | 2019-10-02 13:42 | RAD_ITS ---
STUDY: X-RAY - RIGHT KNEE REASON FOR EXAM: Pain, no recent injury. TECHNIQUE: 4 view(s) of the knee. COMPARISON: None. FINDINGS: Normal visualized distal femur. Normal visualized proximal tibia and fibula. Normal proximal tibiofibular articulation. There are marginal osteophytes with moderate to severe joint space narrowing of the medial femorotibial compartment. There is a marginal osteophyte of the lateral femoral condyle without joint space narrowing of the lateral femorotibial compartment. There are small marginal osteophytes without joint space narrowing of the patellofemoral articulation. The soft tissue structures are unremarkable. RAD/Knee 4 or More Views IMPRESSION: Arthrosis of the medial femorotibial compartment. Electronically Signed: Hugo Delgado MD at 14:52 EST Tel , Service support ,
--- NOTE | 2019-10-02 13:42 | RAD_ITS ---
STUDY: X-RAY - LEFT KNEE REASON FOR EXAM: Pain, no recent injury. TECHNIQUE: 4 view(s) of the knee. COMPARISON: None. FINDINGS: Normal visualized distal femur. Normal visualized proximal tibia and fibula. Normal proximal tibiofibular articulation. There are marginal osteophytes with moderately severe joint space narrowing of the medial femorotibial compartment. There is a small marginal osteophyte of the lateral tibial plateau without joint space narrowing of the lateral femorotibial compartment. There are small marginal osteophytes without joint space narrowing of the patellofemoral articulation. The soft tissue structures are unremarkable. RAD/Knee 4 or More Views IMPRESSION: Arthrosis of the medial femorotibial compartment. Electronically Signed: Hugo Delgado MD at 14:52 EST Tel , Service support ,
== END ==
PROVIDERS: PCP Internal Medicine; Referring Provider Orthopaedic Surgery; Visit Provider Orthopaedic Surgery
DX: M17.0 Bilateral primary osteoarthritis of knee (principal)
CPT/HCPCS: 73564

== ENCOUNTER → 2019-11-19 14:24 | Outpatient (CLI) | payer MEDICAID, SELFPAY ==
[2019-11-18 08:10] VITALS: BMI 48.7
[2019-11-19 15:28] LABS: Hematocrit 37.7 % (40-54); Hemoglobin 12.4 g/dL (13.0-16.5); Mean Corp Hgb Conc 32.9 g/dL (32-36); Mean Platelet Vol. 9.9 fl (6.2-12.0); Platelet Count 272 K/mm3 (150-450); RBC Distribution Width CV 16.7 % (11.6-14.6); RBC Distribution Width SD 47.5 fl (35.1-43.9); Red Blood Count 4.77 M/mm3 (4.6-6.2)
[2019-11-19 15:54] LABS: ALB/GLOB Ratio 0.8 RATIO (0.9-2.4); AST(SGOT) 25 U/L (15-37); Alanine Aminotransfer ALT/SGPT 45 U/L (16-61); Albumin, Serum 3.5 g/dL (3.2-5.0); Alkaline Phosphatase 111 U/L (45-117); Anion Gap 5 (5-15); BUN 19 mg/dL (7-18); BUN/Creat Ratio 23.9 RATIO (10-20); Calcium,Total 8.6 mg/dL (8.5-10.1); Chloride 104 mmol/L (98-107); Cholesterol 169 mg/dL (200); EST Glomerular Filtration Rate 111 mL/min (>60); Est Glom Filt Rate - Afr Amer 135 mL/min (>60); Globulin 4.4 g/dL (2.2-4.2); Glucose 95 mg/dL (74-106); High Density Lipoprotein 32 mg/dL; Potassium 3.9 mmol/L (3.5-5.1); Protein, Total 7.9 g/dL (6.4-8.2); Sodium Level 138 mmol/L (136-145); Thyroid Stim Hormone (TSH) 0.54 uIU/mL (0.358-3.74); Triglycerides 92 mg/dL; Very Low Density Lipoprotein 18 mg/dL (5-40)
== END ==
PROVIDERS: PCP Internal Medicine; Referring Provider Nurse Practitioner Family; Visit Provider Nurse Practitioner Family
DX: I10 Essential (primary) hypertension (principal); E78.5 Hyperlipidemia, unspecified
CPT/HCPCS: 36415; 80053; 80061; 84443; 85027

== ENCOUNTER → 2020-07-09 09:35 | Outpatient (CLI) | payer MEDICAID, SELFPAY ==
[2020-07-08 13:27] VITALS: BMI 51.2
[2020-07-09 13:04] LABS: ALB/GLOB Ratio 0.9 RATIO (0.9-2.4); AST(SGOT) 26 U/L (15-37); Alanine Aminotransfer ALT/SGPT 50 U/L (16-61); Albumin, Serum 3.5 g/dL (3.2-5.0); Alkaline Phosphatase 79 U/L (45-117); Anion Gap 5 (5-15); BUN 20 mg/dL (7-18); Calcium,Total 8.4 mg/dL (8.5-10.1); Chloride 107 mmol/L (98-107); Cholesterol 103 mg/dL (200); Creatinine, Serum 0.95 mg/dL (0.70-1.30); EST Glomerular Filtration Rate 90 mL/min (>60); Est Glom Filt Rate - Afr Amer 109 mL/min (>60); Globulin 3.8 g/dL (2.2-4.2); Glucose 149 mg/dL (74-106); High Density Lipoprotein 36 mg/dL; PSA,Total - Annual Screen 1.65 ng/mL (0.00-4.00); Potassium 3.9 mmol/L (3.5-5.1); Protein, Total 7.3 g/dL (6.4-8.2); Sodium Level 142 mmol/L (136-145); Triglycerides 105 mg/dL; Very Low Density Lipoprotein 21 mg/dL (5-40)
[2020-07-15 09:07] LABS: Testosterone, Free 7.23 ng/dL (5.00-21.00)
[2020-07-15 09:24] LABS: Testosterone, % Free 2.62 % (1.50-4.20); Testosterone, Total 276 ng/dL (264-916)
== END ==
PROVIDERS: PCP Internal Medicine; Referring Provider Nurse Practitioner Family; Visit Provider Nurse Practitioner Family
DX: R39.11 Hesitancy of micturition (principal); R68.82 Decreased libido; R45.86 Emotional lability
CPT/HCPCS: 36415; 80053; 80061; 84153; 84402; 84403; 84443; G0103

== ENCOUNTER → 2020-08-19 11:11 | Outpatient (CLI) | payer MEDICAID, SELFPAY ==
[2020-08-19 12:23] LABS: Hematocrit 41.2 % (40-54); Mean Corpuscular Volume 82.4 fL (80-94); Mean Platelet Vol. 9.7 fl (6.2-12.0); Platelet Count 227 K/mm3 (150-450); RBC Distribution Width CV 16.4 % (11.6-14.6); RBC Distribution Width SD 48.5 fl (35.1-43.9); White Blood Count 6.6 K/mm3 (4.4-11.0)
[2020-08-19 12:25] LABS: International Normalized Ratio 1.1; Prothrombin Time (Protime)PT. 13.2 SECONDS (11.7-14.9)
[2020-08-19 12:26] LABS: Partial Thromboplast Time 36.4 Seconds (24.1-36.2)
[2020-08-19 12:57] LABS: Vitamin B12 666 pg/mL (211-911); Vitamin D,25 Hydroxy 31.2 ng/mL
[2020-08-19 13:13] LABS: AST(SGOT) 21 U/L (15-37); Alanine Aminotransfer ALT/SGPT 46 U/L (16-61); Albumin, Serum 3.9 g/dL (3.2-5.0); Alkaline Phosphatase 98 U/L (45-117); Anion Gap 7 (5-15); BUN 24 mg/dL (7-18); BUN/Creat Ratio 23.8 RATIO (10-20); Calcium,Total 8.9 mg/dL (8.5-10.1); Chloride 108 mmol/L (98-107); Creatinine, Serum 1.01 mg/dL (0.70-1.30); EST Glomerular Filtration Rate 84 mL/min (>60); Est Glom Filt Rate - Afr Amer 102 mL/min (>60); Ferritin 115 ng/mL (26-388); Globulin 4.1 g/dL (2.2-4.2); Glucose 89 mg/dL (74-106); Potassium 4.2 mmol/L (3.5-5.1); Sodium Level 141 mmol/L (136-145); Uric Acid 6.9 mg/dL (3.5-7.2)
[2020-08-24 07:33] LABS: Vitamin A, Retinol 68.1 ug/dL (20.1-62.0)
== END ==
PROVIDERS: PCP Internal Medicine; Referring Provider Surgery; Visit Provider Surgery
DX: R63.4 Abnormal weight loss (principal); Z98.84 Bariatric surgery status
CPT/HCPCS: 36415; 80053; 82306; 82607; 82728; 82746; 84134; 84550; 84590; 85027; 85610; 85730

== ENCOUNTER 2020-09-22 10:39 | Inpatient (IN) | payer MEDICAID, SELFPAY ==
[2020-07-29 09:58] VITALS: BMI 52.2
[2020-08-28 06:28] VITALS: BP 141/49; PULSE 87; RESP 18; TEMP 38.6; O2SAT 94; BMI 52.8
[2020-08-28] MEDS: Lactated Ringers 1,000 ML 100 ML IV (06:42)
[2020-08-28 07:26] LABS: Absolute Lymphocyte Count 0.76 X10^3/uL (0.83-4.51); Absolute Neutrophil Count 10.6 X10^3/uL (2.0-7.7); Basophil# 0.02 X10^3/uL; Basophil% 0.2 % (0-1); Eosinophil# 0.04 X10^3/uL; Eosinophils% 0.3 % (0-5); Hematocrit 37.8 % (40-54); Hemoglobin 12.6 g/dL (13.0-16.5); Lymphocyte # 0.76 X10^3/ul (4.0); Lymphocyte % 6.1 % (19-41); Mean Corp Hgb Conc 33.3 g/dL (32-36); Mean Corpuscular Hgb 27.6 pg (27.0-32.0); Mean Corpuscular Volume 82.9 fL (80-94); Mean Platelet Vol. 9.7 fl (6.2-12.0); Monocyte# 0.94 X10^3/uL; Monocyte% 7.6 % (0-10); NRBC Flagged by Analyzer 0 % (0-5); Neutrophil # 10.56 X10^3/uL (2.7-7.7); Neutrophil % 85.2 % (47-70); Platelet Count 186 K/mm3 (150-450); RBC Distribution Width CV 15.8 % (11.6-14.6); RBC Distribution Width SD 47.4 fl (35.1-43.9); Red Blood Count 4.56 M/mm3 (4.6-6.2); White Blood Count 12.4 K/mm3 (4.4-11.0)
[2020-08-28 07:50] LABS: ALB/GLOB Ratio 0.9 RATIO (0.9-2.4); AST(SGOT) 16 U/L (15-37); Alanine Aminotransfer ALT/SGPT 33 U/L (16-61); Albumin, Serum 3.6 g/dL (3.2-5.0); Alkaline Phosphatase 97 U/L (45-117); Anion Gap 3 (5-15); BUN 18 mg/dL (7-18); Calcium,Total 8.5 mg/dL (8.5-10.1); Chloride 105 mmol/L (98-107); Creatinine, Serum 1.06 mg/dL (0.70-1.30); EST Glomerular Filtration Rate 80 mL/min (>60); Est Glom Filt Rate - Afr Amer 97 mL/min (>60); Estimated Creatinine Clearance 112.57 ml/min; Globulin 3.9 g/dL (2.2-4.2); Glucose 109 mg/dL (74-106); Potassium 4.2 mmol/L (3.5-5.1); Protein, Total 7.5 g/dL (6.4-8.2); Sodium Level 138 mmol/L (136-145)
[2020-08-28 07:59] LABS: Mucous, Urine 0 SEEN /hpf (<or=2+)
[2020-08-28 08:01] LABS: Color, Urine Yellow (Yellow); Glucose, Dipstick Normal (Normal); Ketone-Dipstick Negative (Negative); Leukocyte Esterase-Dipstick 100 /ul (Negative); Nitrite-Dipstick Positive (Negative); Occult Blood-Urine 25 /ul (Negative); Protein-Dipstick 15 mg/dl (Negative); Specific Gravity, Urine 1.015 (1.002-1.030); Urine Bilirubin Dipstick Negative (Negative); Urine Clarity Sl. Cloudy (Clear); Urine Urobilinogen Normal (Normal)
[2020-08-28 08:14] LABS: Bacteria 4+ /hpf (None Seen); Red Blood Cells-Urine 0-5 SEEN /hpf (0-5); Squamous Epithelial Cells - UA 0-5 SEEN /hpf (0-5); White Blood Cells 10-25 SEEN /hpf (0-5)
--- NOTE | 2020-08-28 08:26 | PCM.PN.BLA ---
Progress Note Patient was scheduled for surgery today for dermolipectomy left medial thigh. He had a temp of 101.5 that has improved to 100.1. WBC was 12.4. He complains of urgency. Urinalysis was done which is positive for UTI, (Nitrite positive, Leukocyte Esterase 100, WBC 10-25, Bacteria 4+). The surgery is elective and will be cancelled today. He will call his PCP and followup. Because of his urinary symptoms and UTI, will write a script for Levaquin. When he is stable medically, will reschedule his surgery. STROKE Vital Signs/Narrative: Vital Signs Temp Pulse Resp BP Pulse Ox 08/28/20 06:28 101.5 F H 87 18 141/49 H 94
--- NOTE | 2020-09-21 21:13 | PCM.HP.BLA ---
History and Physical Date of Admission: 09/22/20 History and Physical Date of Admission: 08/28/20 HISTORY OF PRESENT ILLNESS 45 year old man presents with areas of redundant skin and subcutaneous tissue in his bilateral medial thighs and abdominal panniculus with associated panniculitis. There is abdominal wall skin crease intertrigo and bilateral medial thigh intertrigo for which he uses powders for relief. This excess skin and subcutaneous tissue was the result of bariatric surgery done in [place] in May,. He lost about 250 lbs and his current weight is about 440 lbs. He has a history of lower extremity lymphedema resulting from the extreme body weight and has persistent dependent edema in his medial thighs which aggravates his symptomatology. He denies trauma. He denies fever. Both areas bother him but the medial thighs are his initial priority as he has trouble with ambulating. We have received medical approval from his insurance company for his thigh surgery. He is scheduled for 08/28/20. His left medial thigh is more bothersome than his right medial thigh at this time. Comes in today to discuss his upcoming surgery and to answer any preop questions and to sign the office consent. He will have preop labs drawn today (CBC, CMP, Uric acid, glucose, calcium, ferritin, total protein, albumin/prealbumin, vitamin B12/folate, PT/PTT, fat soluble vitamins). PAST MEDICAL HISTORY Excessive body weight loss Excessive and redundant skin and subcutaneous tissue Intertrigo Panniculitis Abdominal panniculus Chronic diastolic heart failure Essential (primary) hypertension Hyperlipidemia Incomplete right bundle branch block Pulmonary embolism COPD (chronic obstructive pulmonary disease) Morbid obesity Anxiety and depression 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 Cellulitis Emphysema of lung Former tobacco use Hemangioma of skin and subcutaneous tissue Lymphedema Obstructive sleep apnea Osteoarthritis Peripheral vascular disease Nonhealing ulcer of left lower extremity with fat layer exposed PAST SURGICAL HISTORY bariatric surgery corrected cleft lip and palate open reduction and internal fixation (ORIF) procedure tonsillectomy ALLERGIES Penicillins MEDICATIONS Acetaminophen [Tylenol Tablet] Calcium Carbonate [Tums] Cholecalciferol (Vitamin D3) [Vitamin D3] atorvastatin fluticasone propionate 50 nasal spray omeprazole lisinopril miconazole nitrate 2 % topical powder multivitamin,[id number]-[id number]-[id number] hydrocortisone 1 % lotion tacrolimus betamethasone dipropionate sertraline furosemide quetiapine FAMILY HISTORY Father - Myocardial infarction, Hypertension, Heart disease, Arthritis, Leukemia SOCIAL HISTORY Smoking Status: Former smoker how long ago did patient quit smokin years ago alcohol intake: never substance use type: does not use REVIEW OF SYSTEMS General - Denies fever, fatigue. Has weight loss of 250 lbs from bariatric surgery in May,. Eyes - Denies cataracts and glaucoma. ENT - Denies nasal congestion and sore throat. Endocrine - Denies excessive thirst and urination. Skin - Denies suspicious lesions and skin cancer. Has redundant skin and subcutaneous tissue bilateral medial thighs and abdominal panniculus. Has intertrigo. Musculoskeletal - Denies joint pain, joint stiffness, weakness of muscles and joints, back pain, and arthritis. Neuro - Denies headaches. Cardiovascular - Denies chest pain, fatigue, and shortness of breath with exertion. Psych - Denies anxiety and depression. Respiratory - Denies chronic cough and shortness of breath. Gastrointestinal - Denies nausea, vomiting, diarrhea, and constipation. Hematologic - Denies abnormal bruising and bleeding. Genitourinary - Denies hematuria and urinary frequency. PHYSICAL EXAMINATION General - Alert and Oriented. HEENT - PERRL. EOMI. Throat is clear. Neck - Supple and nontender. No cervical adenopathy. Lungs - Clear to auscultation. Heart - Regular rate and rhythm. Abdomen - Soft and nondistended. Has large abdominal panniculus. Has history of abdominal wall skin crease intertrigo. Extremities - Lymphedema in lower extremities. Has redundant skin and subcutaneous tissue bilateral medial thighs with some extension posteriorly. Has history of intertrigo and panniculitis with dependent edema causing discomfort and difficulty with ambulation. No evidence of infection. No evidence of bleeding at this time. Neuro - CN II-XII grossly intact. Psych - Normal mood and affect. ASSESSMENT 1. Redundant skin and subcutaneous tissue bilateral medial thighs. 2. Abdominal panniculus. 3. Panniculitis. 4. Abdominal wall skin crease intertrigo and bilateral medial thigh intertrigo. 5. Excessive body weight loss from bariatric surgery (250 lbs). 6. History of bariatric surgery. 7. Obesity. 8. Lymphedema. 9. Former smoker. PLAN Recommend excision of these areas of redundant skin and subcutaneous tissue bilateral medial thighs and abdominal panniculus. Will address the thighs first as his ambulation and balance are affected. We have received medical approval from his insurance [employer] for his thigh surgery. After the thighs have healed, can then address the abdominal panniculus at that time. Due to the large size of the redundant skin and subcutaneous tissue areas of his bilateral medial thighs with extension posteriorly, will address one thigh at a time. Are also dealing lymphedema history. Will be reluctant to close the wounds initially because of the risk of suboptimal healing. Will leave the wound open and proceed with wound care with the VAC. He states his left medial thigh is more symptomatic at this time and will be done first. After discharge would [facility]up [facility]. If he reaches a plateau in the healing process, will proceed with delayed closure with skin grafting. The skin grafting can be done at the same time as the excision of the other thigh tissue. The other thigh can then be skin grafted at the same time as the abdominal panniculectomy. Surgery would be done under general anesthesia with a surgical observation overnight stay in the hospital. Tissue would be sent to Pathology for analysis. He had some preop questions that were answered personally and to his satisfaction. He signed his office consent. His surgery is scheduled for 08/28/20. He had preoperative labs done today because of nutritional deficiencies that can develop after bariatric surgery. These include CBC, CMP, Uric acid, glucose, calcium, ferritin, total protein, albumin/prealbumin, vitamin B12/folate, PT/PTT, fat soluble vitamins. The lab results were reviewed. The results were ok. The Vitamin A is still pending. Patient was informed of the risks and complications of the procedure including alternatives to surgery. These were discussed with the patient personally. Patient voices understanding and wishes to proceed. Some of the risks and complications were included in a form from the [employer]. He voices understanding that the wounds would be left open initially. We discussed the current risks associated with COVID-19. While it is understood that there is a community spread of COVID-19, the risk of deonte COVID-19 while at [facility] ([facility]) is very low; however, the risk cannot be completely mitigated because of the community spread of the disease. We discussed in detail the risk of exposure to and/or potential harm posed by the COVID-19 virus with having a surgery/procedure at this time versus the risk of delaying the surgery/procedure. It is not possible to know either the risk of delaying the surgery or procedure or chance of getting an infection with perfect accuracy, but a joint decision was made to proceed at this time with the scheduled surgery/procedure as indicated on the consent form. Patient was notified that we will need to comply with any screening or testing [facility] wishes to perform or that surgery may be delayed for any positive results. Discussed with the patient that I was tested for COVID-19 on 03/12/20 which was negative and on 03/26/20 which was negative and on 04/09/20 which was negative and on 04/23/20 which was negative and on 05/07/20 which was negative and on 05/28/20 which was negative and on 06/18/20 which was negative and on 07/23/20 which was negative and on 08/13/20 which was negative. My testing regimen at this time is to be COVID-19 tested every 2 weeks or so. Procedure Criteria Procedure Type: Elective COVID Risk Discussion: The surgeon/proceduralist and patient have discussed in detail the risk of exposure to and/or potential harm posed by the COVID-19 virus with having a surgery/procedure at this time versus the risk of delaying the surgery/procedure. It is not possible to know either the risk of delaying the surgery or procedure or chance of getting an infection with perfect accuracy, but a joint decision was made between the patient and the surgeon/proceduralist to proceed at this time with the scheduled surgery/procedure as indicated on the consent form.
[2020-09-22] VITALS (14 sets, daily range): BP systolic 81–122; BP diastolic 50–92; PULSE 57–98; RESP 14–18; TEMP 36.2–36.9; O2SAT 92–100; BMI 23.3; BMI 51.5
--- NOTE | 2020-09-22 | IMM_PTH ---
PATIENT: AYLA JACKSON II LOC: MS3 U#:[id number] AGE/SX: 45/M ROOM: DC323 RE09/23/[address]: Dr. Xavi Kinney MD : 1975 BED: 1 DIS: 09/24/2020 SPEC #: [id number] RECD: 09/23/20 12:13 STATUS: SOUT REQ #: [id number] WILL: 09/22/20 00:[address]: Xavi Kinney DEPT: IMMUNOHISTOCHEMISTRY RECD BY: Alana Osuna ENTERED: 09/23/20 12:15 SP TYPE: IMMUNO OTHR DR: Dr. Brian Johnson MD Tissues: Thigh, NOS Procedures: CD138 (add) CD20 (add) CD3 (add) CD45 (add) CD5 (add) CD79A (add) KI-67 (add) MACRO (add) Pankeratin (initial) [facility] [address] [address] SPECIMEN INFORMATION: Tissue Source: Skin and soft tissue, left thigh, extensive resection Clinical Info: Redundant skin and subcutaneous tissue, left thigh Specimen Number: [id number] #4 CPT code: 70821, 19675 x8 METHODOLOGY: Deparaffinized sections of prefer/formalin-fixed tissue or PAP/DQ stained slides are incubated with monoclonal/polyclonal antibodies/oligonucleotide probes. Localization is made via biotin free immunoperoxidase method. Appropriate controls are performed and reacted as expected. Results on target cell population are indicated in the following table: RESULTS: ANTIBODY / CLONE RESULT Block 4 AE1-3 (AE1/AE3/PCK26) negative CD3 (PS1) positive CD5 (SP10) positive CD20 (L26) positive CD45 (RP2/18) positive CD79a (11E3) positive CD138 (B-A38) negative Macro (HAM-56) positive Ki-67 (30-9) negative These tests were developed and their performance characteristics determined by [facility]. They may not have been cleared or approved by the U.S. Food and Drug Administration. The FDA has determined that such clearance or approval is not necessary. The above immunohistochemical/dualISH markers are ordered and reviewed by the Pathologist. INTERPRETATION: Skin and soft tissue, left thigh, extensive resection: Benign lymphoid tissue. See comment. AM:yvonne 09/24/2020 Comment: A polytypic staining pattern is seen.
--- NOTE | 2020-09-22 | MISC_PTH ---
PATIENT: AYLA JACKSON II LOC: MS3 U#:[id number] AGE/SX: 45/M [facility] RE09/23/[address]: Dr. Xavi Kinney MD : 1975 BED: 1 DIS: 09/24/2020 SPEC #: [id number] RECD: 09/22/20 11:22 STATUS: GELACIO REBerto #: [id number] WILL: 09/22/20 00:[address]: Xavi Kinney DEPT: SURGICAL PATHOLOGY RECD BY: Aleksey Stiles ENTERED: 09/22/20 11:22 SP TYPE: MISC OTHR DR: Dr. Brian Johnson MD Tissues: Thigh, NOS Procedures: Surgery Specimen Level IV HEADER OPERATION: Surgical preparation medial and posterior thigh PRE-OP DIAGNOSIS: Redundant skin and subcutaneous tissue, bilateral medial thighs TISSUE SUBMITTED: Redundant skin and subcutaneous tissue, left thigh MICROSCOPIC DIAGNOSIS Skin and soft tissue, left thigh, extensive resection: Skin and superficial dermis with changes of hidradenitis. Markedly enlarged lymph nodes with reactive change and banal calcifications. No evidence of malignancy. See comment. AM:yvonne 09/23/2020 COMMENT Immunohistochemistry ([id number]) supports the above diagnosis and reveals a polytypic staining pattern in the lymph node tissue. Clinical correlation is suggested. Case has been reviewed in consultation with Dr. Saldaña who concurs with the above diagnosis. IDC:[email or web address] MICROSCOPIC DESCRIPTION Slides are reviewed. GROSS DESCRIPTION Received fresh labeled with the patient's name is a specimen designated redundant skin and subcutaneous tissue, left thigh. The largest fragment measures 44 x 25 x 8 cm and weighs 3.9 kg. The second largest fragment measures 38 x 30 x 8 cm and weighs 2.9 kg. The two larger fragments contain skin that contain cystic skin lesions ranging in size from 0.5 to 1.2 cm and one exophytic cutaneous lesion measuring 8 mm in greatest dimension. Dissection of the fibrofatty portion of the tissue reveals multiple nodules ranging in size from 1.5 to 12 cm and grossly resembling lymph nodes. Audiology Technician sections are submitted in six cassettes as follows: 1 - exophytic skin lesion, cystic lesion and blood vessel, 2??cystic lesions of skin, 3 - largest nodule resembling lymph node, 4 - second largest nodule resembling lymph node, 5 - third largest nodule resembling lymph node, 6 - smallest largest nodule resembling lymph node. / WILL:yvonne 09/22/20 TC:1 CPT: 48337
[2020-09-22] MEDS: Lactated Ringers 1,000 ML 100 ML IV ×3 (07:02→09:30)
--- NOTE | 2020-09-22 09:59 | PCM.OPRPT ---
Report of Operation Date of Procedure: 09/22/20 Pre-Operative Diagnosis: 1. Redundant skin and subcutaneous tissue bilateral medial and posterior thighs, worse on the left. 2. Bilateral medial thigh intertrigo, worse on the left. 3. Excessive body weight loss from bariatric surgery (250 lbs). 4. History of bariatric surgery. 5. Obesity. 6. Lymphedema. 7. Former smoker. Post-Operative Diagnosis: Same. Surgery/Procedure Performed:: Excision redundant skin and subcutaneous tissue left medial and posterior thigh with dermolipectomy. Description of Surgical Findings:: 45 year old man presents with areas of redundant skin and subcutaneous tissue in his bilateral medial thighs and abdominal panniculus with associated panniculitis. There is abdominal wall skin crease intertrigo and bilateral medial thigh intertrigo for which he uses powders for relief. This excess skin and subcutaneous tissue was the result of bariatric surgery done in [place] in May,. He lost about 250 lbs and his current weight is about 440 lbs. He has a history of lower extremity lymphedema resulting from the extreme body weight and has persistent dependent edema in his medial thighs which aggravates his symptomatology. He denies trauma. He denies fever. Both areas bother him but the medial thighs are his initial priority as he has trouble with ambulating. We have received medical approval from his insurance company for his thigh surgery. His left medial thigh is more bothersome than his right medial thigh at this time. Patient was informed of the risks and complications of the procedure including alternatives to surgery. These were discussed with the patient personally. Patient voices understanding and wishes to proceed. Some of the risks and complications were included in a form from the [employer]. He is aware the wound will be left open and wound care started with the VAC. He voiced understanding. IV Fluids - 2400 ml. Urine Output - 250 ml. Size of wound left medial and posterior thigh - 37 x 42 x 1.5 cm. corporate lawyer: Salvador Mckenzie. Type of Anesthesia:: General Specimen's removed: Redundant skin and subcutaneous tissue left medial and posterior thigh to Pathology. Drains: None. Estimated Blood Loss (mL): 750 ml. Fluids Replaced: 2650 ml (IV Fluids 2400 ml, Urine Output 250 ml). Description of Procedure: Patient was taken to OR in supine position and was placed under general anesthesia. The left thigh was prepped and draped in the usual fashion. SCD's were placed for DVT prophylaxis. Perioperative antibiotics were given intravenously. A pena catheter was placed. For the procedure, I wore an N95 mask and wore proper eyewear protection. I marked out the extent of the dermolipectomy from the left medial thigh extending onto the posterior thigh. Incisions were made on the anteromedial edge of the thigh down to the deep subcutaneous tissue. Several large venous perforators were encountered and ligated with 2-0 Silk tie sutures. I extended the incision down to the distal thigh and then onto the posterior thigh and then up to the crural crease to complete the incision. Extensive lymphedema was present during the dermolipectomy. Some localized inflamed folliculitis was seen and excised with the specimen. Some of the deeper subcutaneous tissue was not excised because of the extent of the bleeding from the large venous perforators. I usually stop when the blood loss gets to around 500 ml since additional excision can be done safely at a later day. Because of the large venous perforators that needed suture ligation, the blood loss got to around 750 ml. So no further deeper subcutaneous excision was done at this time. Remaining hemostasis was obtained with electrocautery. The wound was irrigated with saline. The size of the left medial and posterior thigh wound after the dermolipectomy was 37 x 42 x 1.5 cm or 1554 cm2. The wound was dressed with Mepitel nonadherent dressing followed by Kerlix gauze and Betadine followed by dry Kerlix gauze and ABD pads and a compression jules wrap. Tissue that was removed was sent to Pathology for analysis to rule out carcinoma. Patient tolerated the procedure well and was sent to PACU in satisfactory condition. Patient will be sent upstairs for continued postop care. Tomorrow will try to place the VAC. If there is difficulty with the VAC placement, then can proceed with Kristan's dressing changes. He will be discharged when he is tolerating po analgesia and is steady on his feet with ambulation. Will discuss with him postop whether he wants to go home with the pena or if he wants it removed prior to discharge. Grafts/Implants Used: None. - Complications None. - Admit VTE Documentation VTE Present on Admission: No VTE Mechan Device Prophylaxis: SCD's VTE Pharm Prophylaxis ordered?: Yes Surgery Charges CPT - 50908 ICD-10 - L98.7, L30.4, R63.4, Z98.84, E66.01, I89.0, Z87.891
[2020-09-22] MEDS: Lactated Ringers 1,000 ML 125 ML IV ×2 (12:36→17:23)
[2020-09-22] MEDS: HYDROmorphone 1 MG/ML Syringe IV ×2 (12:40→22:01)
[2020-09-22 13:15] LABS: Absolute Lymphocyte Count 0.75 X10^3/uL (0.83-4.51); Absolute Neutrophil Count 7.8 X10^3/uL (2.0-7.7); Basophil# 0.02 X10^3/uL; Basophil% 0.2 % (0-1); Eosinophil# 0.02 X10^3/uL; Eosinophils% 0.2 % (0-5); Hematocrit 33.7 % (40-54); Hemoglobin 11.3 g/dL (13.0-16.5); Lymphocyte # 0.75 X10^3/ul (4.0); Lymphocyte % 8.4 % (19-41); Mean Corp Hgb Conc 33.5 g/dL (32-36); Mean Corpuscular Hgb 27.6 pg (27.0-32.0); Mean Corpuscular Volume 82.2 fL (80-94); Mean Platelet Vol. 9.3 fl (6.2-12.0); Monocyte# 0.37 X10^3/uL; Monocyte% 4.1 % (0-10); NRBC Flagged by Analyzer 0 % (0-5); Neutrophil # 7.77 X10^3/uL (2.7-7.7); Neutrophil % 86.8 % (47-70); Platelet Count 222 K/mm3 (150-450); RBC Distribution Width CV 16.7 % (11.6-14.6); RBC Distribution Width SD 49.2 fl (35.1-43.9)
--- NOTE | 2020-09-22 14:50 | CASEMGMT ---
LASHONDA ALVARADO NOTE: Plan is for pt to have wound vac placed tomorrow 09/23. LASHONDA ALVARADO to room to talk with pt. He is agreeable to [facility] for wound vac care/dressing changes. Provided w/list of local [facility] agencies w/quality performance measures listed. Pt states he has no preference. Calls place to [facility]/. They are not able to accept pt. Call placed to [facility] and spoke w/[place]. She states they do not service [facility] any longer. LASHONDA ALVARADO to work on fingding accepting [facility] for pt tomorrow. Michelle POON RN CM
[2020-09-22] MEDS: QUEtiapine 25 MG Tablet PO (22:01)
[2020-09-22] MEDS: Atorvastatin Calcium 40 MG Tablet PO (22:01)
[2020-09-23] MEDS: Lactated Ringers 1,000 ML 125 ML IV (02:05)
[2020-09-23 02:30] VITALS: BP 108/65; PULSE 80; RESP 16; TEMP 36.8; O2SAT 96
[2020-09-23] MEDS: oxyCODONE 5 MG Tablet 10 MG PO ×2 (04:59→11:40)
[2020-09-23] MEDS: Enoxaparin 40 MG/0.4 ML Syringe SC (05:01)
[2020-09-23 05:42] LABS: Mean Corp Hgb Conc 33.3 g/dL (32-36); Mean Corpuscular Hgb 27.4 pg (27.0-32.0); Mean Corpuscular Volume 82.2 fL (80-94); Platelet Count 186 K/mm3 (150-450); RBC Distribution Width CV 16.7 % (11.6-14.6); RBC Distribution Width SD 50.6 fl (35.1-43.9); Red Blood Count 3.65 M/mm3 (4.6-6.2); White Blood Count 8.8 K/mm3 (4.4-11.0)
[2020-09-23 06:08] LABS: Anion Gap 5 (5-15); BUN 24 mg/dL (7-18); BUN/Creat Ratio 19.8 RATIO (10-20); Calcium,Total 7.7 mg/dL (8.5-10.1); Chloride 103 mmol/L (98-107); Creatinine, Serum 1.21 mg/dL (0.70-1.30); EST Glomerular Filtration Rate 69 mL/min (>60); Est Glom Filt Rate - Afr Amer 83 mL/min (>60); Estimated Creatinine Clearance 98.62 ml/min; Glucose 141 mg/dL (74-106); Potassium 3.8 mmol/L (3.5-5.1); Prealbumin 22.8 mg/dL (20.0-40.0); Sodium Level 135 mmol/L (136-145)
[2020-09-23 08:30] VITALS: BP 109/65; PULSE 79; RESP 18; TEMP 36.9; O2SAT 98
[2020-09-23] MEDS: HYDROmorphone 1 MG/ML Syringe IV ×2 (09:20→20:41)
[2020-09-23] MEDS: Calcium Carbonate 500 MG Tablet PO (09:23)
[2020-09-23] MEDS: Multivitamins,Therapeutic Tablet 1 TABLET PO (09:23)
[2020-09-23] MEDS: QUEtiapine 25 MG Tablet 12.5 MG PO (09:24)
[2020-09-23] MEDS: Pantoprazole Sodium 20 MG Tablet PO (09:24)
[2020-09-23] MEDS: Furosemide 40 MG Tablet PO (09:24)
[2020-09-23] MEDS: Sertraline 50 MG Tablet PO (09:25)
[2020-09-23] MEDS: Lisinopril 10 MG Tablet PO (09:25)
--- NOTE | 2020-09-23 10:53 | NURSING ---
wound photo: left upper medial/posterior thigh
[2020-09-23 12:00] VITALS: PULSE 65
--- NOTE | 2020-09-23 13:30 | CASEMGMT ---
LASHONDA ALVARADO updated that patient will need [facility] for wound care teaching. Patient was provided with list and has no preferences. RN CHRISTIANO sent referral to [facility] and they are able to accept the patient. LASHONDA ALVARADO to send discharge information when available. LASHONDA ALVARADO updated Dr. Kinney.
[2020-09-23 14:30] VITALS: BP 110/58; PULSE 73; RESP 18; TEMP 36.6; O2SAT 95
--- NOTE | 2020-09-23 17:01 | PCM.PN.SRG ---
Subjective: Postop #1 Resting in bed. States pain is well controlled. - Physical Exam Vitals/I&O's: Vital Signs Temp Pulse Resp BP Pulse Ox 97.9 F 73 18 110/58 L 95 09/23/20 14:30 09/23/20 14:30 09/23/20 14:30 09/23/20 14:30 09/23/20 14:30 Oxygen Delivery Method Room Air Weight: 446 lb 8 oz Body Mass Index (BMI) 51.5 Intake and Output for Last 24 Hours 09/21/20 09/22/20 09/23/20 23:59 23:59 23:59 Intake Total 3521.92 / 3521.92 2608 / 2608 Output Total 450 / 450 1800 / 1800 Balance 3071.92 / 3071.92 808 / 808 General: Alert, Oriented x3, Cooperative HEENT: Atraumatic Oral: Moist Mucosa Lungs: Normal air movement Cardiovascular: Regular rate Abdomen: Obese Extremities: Capillary Refill Less than 3 Seconds, Edema Skin: Ulcer/ Wound - Left thigh wound is stable. No active bleeding. Saline wet to dry dressing reapplied due to the dressing coming off. GRACIA wrap applied for compressiong. Musculoskeletal: No Tenderness to Palpation of Joints or Extremities Neurological: Cranial nerves II-XII grossly intact Psych/Mental Status: Normal Affect, Appropriate Microbiology Past 72 Hours 09/21/20 10:30 Interface Orders SARS-CoV-2 Antigen (Rapid) - Final Laboratory Results 09/23/20 05:30: WBC 8.8, RBC 3.65 L, Hgb 10.0 L, Hct 30.0 L, MCV 82.2, MCH 27.4, MCHC 33.3, RDW Std Deviation 50.6 H, RDW Coeff of Alee 16.7 H, Plt Count 186, MPV 9.0 09/23/20 05:30: Sodium 135 L, Potassium 3.8, Chloride 103, Carbon Dioxide 27.0, Anion Gap 5, BUN 24 H, Creatinine 1.21, Estim Creat Clear Calc 98.62, Est GFR (MDRD) Af Amer 83, Est GFR (MDRD) Non-Af 69, BUN/Creatinine Ratio 19.8, Glucose 141 H, Calcium 7.7 L, Prealbumin 22.8 Current Medications Acetaminophen (Acetaminophen 325 Mg Tablet) 650 mg PO Q6H PRN PRN PRN Reason: PAIN 1-10 Atorvastatin Calcium (Atorvastatin Calcium 40 Mg Tablet) 40 mg PO QHS [facility] Last Admin: 09/22/20 22:01 Dose: 40 mg Documented by: Calcium Carbonate (Calcium Carbonate 500 Mg Tablet) 500 mg PO DAILY@0800 [facility] Last Admin: 09/23/20 09:23 Dose: 500 mg Documented by: Cholecalciferol (Cholecalciferol (Vit D3) 1,000 Unit (25mcg)) 2,000 unit PO DAILY [facility] Last Admin: 09/23/20 09:25 Dose: 2,000 unit Documented by: Diazepam (Diazepam 5 Mg Tablet) 5 mg PO 4X/DAY PRN PRN PRN Reason: SPASMS Docusate Sodium (Docusate Sodium 100 Mg Capsule) 100 mg PO BID [facility] Last Admin: 09/23/20 09:24 Dose: Not Given Documented by: Enoxaparin Sodium (Enoxaparin 40 Mg/0.4 Ml Syringe) 40 mg SC DAILY@0600 [facility] Last Admin: 09/23/20 05:01 Dose: 40 mg Documented by: Fluticasone Propionate (Fluticasone 0.05% 1 [place] Nasal.Sry) 2 spray NASAL DAILY PRN PRN Reason: ALLERGIES Furosemide (Furosemide 40 Mg Tablet) 40 mg PO DAILY [facility] Last Admin: 09/23/20 09:24 Dose: 40 mg Documented by: Hydromorphone HCl (Hydromorphone 1 Mg/Ml Syringe) 1 mg IV Q3H PRN PRN PRN Reason: Pain Score 6-10 Last Admin: 09/23/20 09:20 Dose: 1 mg Documented by: Clindamycin Phosphate 600 mg/ (Dextrose) 54 mls @ 100 mls/hr IV Q8 [facility] Last Infusion: 09/23/20 15:34 Dose: Infused Documented by: Lisinopril (Lisinopril 10 Mg Tablet) 10 mg PO DAILY [facility] Last Admin: 09/23/20 09:25 Dose: 10 mg Documented by: Multivitamins (Multivitamins,Therapeutic Tablet) 1 tablet PO DAILY@0800 [facility] Last Admin: 09/23/20 09:23 Dose: 1 tablet Documented by: Nutritional Formula (Nutritional Supplement (David) Packet) 1 packet PO BIDCM [facility] Last Admin: 09/23/20 09:23 Dose: 1 packet Documented by: Ondansetron HCl (Ondansetron 4 Mg/2 Ml Vial) 4 mg IV Q6H PRN PRN PRN Reason: NAUSEA Oxycodone HCl (Oxycodone 5 Mg Tablet) 10 mg PO Q3H PRN PRN PRN Reason: Pain Score 4-5 Last Admin: 09/23/20 11:40 Dose: 10 mg Documented by: Pantoprazole Sodium (Pantoprazole Sodium 20 Mg Tablet) 20 mg PO DAILY [facility] Last Admin: 09/23/20 09:24 Dose: 20 mg Documented by: Polysaccharide Iron Complex (Iron Polysaccharide Complex 150 Mg Capsule) [facility] Promethazine HCl (Promethazine 25 Mg Tablet) 25 mg PO Q4H PRN PRN PRN Reason: NAUSEA/VOMITING Quetiapine Fumarate (Quetiapine 25 Mg Tablet) 25 mg PO QHS [facility] Last Admin: 09/22/20 22:01 Dose: 25 mg Documented by: Quetiapine Fumarate (Quetiapine 25 Mg Tablet) 12.5 mg PO DAILY [facility] Last Admin: 09/23/20 09:24 Dose: 12.5 mg Documented by: Sertraline HCl (Sertraline 50 Mg Tablet) 50 mg PO DAILY [facility] Last Admin: 09/23/20 09:25 Dose: 50 mg Documented by: Sodium Chloride (0.9% Saline Lock 10 Ml Syringe) 10 - 40 ml IV UD PRN PRN Reason: SALINE FLUSH Sodium Hypochlorite (Dakin's [place] Half Strength (=0.25%)) 1 applic TOPICAL DAILY [facility]; Protocol Medical Necessity - Tobacco Use Smoking Status: Former smoker Tobacco Use: Non-smoker Assessment/Plan All Active Problems (Last Reviewed 08/21/20 @ 20:[address] Xavi Kinney MD) NURYS (acute kidney injury) (Resolved) Chest pain (Resolved) Near syncope (Resolved) Nonhealing ulcer of left lower extremity with fat layer exposed (Resolved) Shortness of breath (Resolved) UTI (urinary tract infection) (Resolved) Ulcer of left thigh (Resolved) 1. Redundant skin and subcutaneous tissue bilateral medial and posterior thighs, worse on the left. 2. Bilateral medial thigh intertrigo, worse on the left. 3. Excessive body weight loss from bariatric surgery (250 lbs). 4. History of bariatric surgery. 5. Obesity. 6. Lymphedema. 7. Former smoker. Left thigh wound is stable. There is no active bleeding. Will plan on doing Dakin's moistened gauze dressing changes 1-2 times per day. Double GRACIA wrap for compression. Encourage ambulation so we can determine if his pain is controlled when he is moving. Will discontinue the Carroll catheter in the morning. Prealbumin 22.8. Encouraged protein supplementation due to the size of the wound.. Hgb 10.0. Will recheck CBC in the morning. Discussed with patient that with a wound this size and his lymphedema, there will be a large amount of drainage. It may required dressing changes a couple times per day. 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 He will have home health to assist with him a couple times per week with the dressing change. He will follow up Monday09/28/20 at [facility] center. Will plan on discharging him tomorrow.
--- NOTE | 2020-09-23 17:33 | NURSING ---
pt assisted up to chair, linen changed on bed,
[2020-09-23 17:34] VITALS: PULSE 60
[2020-09-23 20:32] VITALS: BP 131/63; PULSE 85; RESP 18; TEMP 36.9; O2SAT 100
[2020-09-23] MEDS: 0.9% Saline Lock 10 ML Syringe IV (20:44)
[2020-09-23] MEDS: Docusate Sodium 100 MG Capsule PO (20:57)
[2020-09-23] MEDS: Atorvastatin Calcium 40 MG Tablet PO (20:57)
[2020-09-23] MEDS: QUEtiapine 25 MG Tablet PO (20:57)
--- NOTE | 2020-09-23 23:50 | PCS.PANDOC ---
PANDEMIC DOCUMENTATION INITIATED: Date: 09/23/20 Time: 1919
[2020-09-24 02:45] VITALS: BP 128/65; PULSE 81; RESP 18; TEMP 37.1; O2SAT 95
[2020-09-24] MEDS: HYDROmorphone 1 MG/ML Syringe IV (02:52)
[2020-09-24] MEDS: oxyCODONE 5 MG Tablet 10 MG PO ×2 (04:34→14:01)
[2020-09-24 05:34] LABS: Hematocrit 28.3 % (40-54); Hemoglobin 9.4 g/dL (13.0-16.5); Mean Corp Hgb Conc 33.2 g/dL (32-36); Mean Corpuscular Hgb 27.5 pg (27.0-32.0); Mean Corpuscular Volume 82.7 fL (80-94); Mean Platelet Vol. 9.1 fl (6.2-12.0); Platelet Count 148 K/mm3 (150-450); RBC Distribution Width CV 16.9 % (11.6-14.6); RBC Distribution Width SD 51.3 fl (35.1-43.9); Red Blood Count 3.42 M/mm3 (4.6-6.2); White Blood Count 8.2 K/mm3 (4.4-11.0)
[2020-09-24 05:52] LABS: Anion Gap 2 (5-15); BUN 22 mg/dL (7-18); Chloride 107 mmol/L (98-107); Creatinine, Serum 1.05 mg/dL (0.70-1.30); EST Glomerular Filtration Rate 81 mL/min (>60); Est Glom Filt Rate - Afr Amer 98 mL/min (>60); Estimated Creatinine Clearance 113.65 ml/min; Glucose 133 mg/dL (74-106); Potassium 3.9 mmol/L (3.5-5.1); Sodium Level 138 mmol/L (136-145)
[2020-09-24] MEDS: Enoxaparin 40 MG/0.4 ML Syringe SC (05:58)
[2020-09-24] MEDS: Calcium Carbonate 500 MG Tablet PO (07:47)
[2020-09-24] MEDS: Multivitamins,Therapeutic Tablet 1 TABLET PO (07:47)
[2020-09-24] MEDS: Iron Polysaccharide Complex 150 MG CAPSULE PO (07:55)
[2020-09-24] MEDS: DAKIN'S SOL HALF STRENGTH (=0.25%) 1 APPLIC TOPICAL (07:56)
[2020-09-24] MEDS: Docusate Sodium 100 MG Capsule PO (08:00)
[2020-09-24] MEDS: Sertraline 50 MG Tablet PO (08:01)
[2020-09-24] MEDS: Lisinopril 10 MG Tablet PO (08:01)
[2020-09-24] MEDS: Pantoprazole Sodium 20 MG Tablet PO (08:02)
[2020-09-24] MEDS: Furosemide 40 MG Tablet PO (08:02)
[2020-09-24] MEDS: QUEtiapine 25 MG Tablet 12.5 MG PO (08:02)
[2020-09-24 08:45] VITALS: BP 123/76; PULSE 73; RESP 18; TEMP 36.7; O2SAT 97
--- NOTE | 2020-09-24 09:31 | CASEMGMT ---
Social Work Note SW updated that pt is agreeable to SNF now. SW in to speak with pt. SW introduced self and role at [facility]. Pt is alert and orientated x3. Pt states I am not going to a prison, I am going to a rehab center. SW informed pt that options are limited due to pt's weight. SW explained that most places weight limit is 350. SW explained that [facility] weight's limit is 500 so that could be an option for pt. Pt states I am not going to [facility]. SW again explained options are limited, will be difficult to place pt. Pt asked about [facility] in [place]. SW explained that referral process and that this worker will need to check on beds and insurance. Pt states I know they take my insurance. SW informed pt that this worker still needs to check on rehab side if they take pt's insurance. SW asked pt what his other option are in the event [facility] is not able to accept. Pt states I don't know. SW provided pt with list of SNF that accept pt's insurance with Medicare ratings. JOHN placed a call to [facility] and spoke with Haydee in admissions. Haydee states to fax referral to [phone]. No PT/OT has been ordered. JOHN placed a call to physician, got ok to order PT/OT for pre-cert. PT/OT ordered. JOHN faxed referral to [facility], wrote on fax cover sheet that PT/OT will be faxed when available. Plan: [facility] pending acceptance and pre-cert Pao Gómez LARGE SHEETFED PRESS OPERATOR, PHYSICIST [employer] EARTH
--- NOTE | 2020-09-24 10:43 | CASEMGMT ---
Addendum entered by Pao Gómez 09/24/20 14:14: JOHN received call from Gretel at [facility] stating they are not able to accept pt as pt is too functional. Gretel states per PT/OT pt was stand by/min assist with PT/OT, pt doesn't meet requirement/need of RU level of care. SW in to speak with pt. SW updated pt that per [facility], pt is too functional. SW informed pt that there may be a SNF in [place] that would be able to accommodate pt. Pt states he will need to speak with his . SW informed pt that to let staff know or let this worker know what he decides. Pt states understanding. Addendum entered by Pao Gómez 09/24/20 12:57: JOHN faxed PT/OT to [facility]. Addendum entered by Pao Gómez 09/24/20 11:52: SW spoke with physician. Pt's IV pain medications will be discontinued. Physician also states pt will not need to follow up at wound center while he is at [facility], pt will just need follow up appointments once he is discharged from rehab. JOHN placed a call to Gretel at [facility] and updated her. Gretel asked for updated labs and vitals and PT/OT. SW updated pt that this worker is still waiting for answer from [facility]. Pt confirms [facility] is at the hospital in [place], where pt was before for surgery. Original Note: Social Work Note JOHN received message from Gretel at [facility] requesting call back ([phone]). JOHN placed a call to Gretel. Gretel states pt would need to be IV pain medication free for 24 hours before they would be able to accept pt. Pt does have IV dilaudid ordered, received it this morning at 2:52am. Pt won't be able to admit to [facility] until pt is 24 hours free if IV pain medication. Pt also needs to be 24 hours free of blood pressure medication. Gretel also asked about follow up appointments. JOHN explained that per the PTA notes yesterday, pt has a follow up appointment Monday [facility]. Gretel states they prefer to not ship pt out, asked if follow up appointment could be changed. Gretel states they have wound nurse and wound doctor to see pt while pt is at rehab. Gretel also states she will need PT/OT to be faxed once available. SW to speak with physician regarding IV pain medication and follow up appointments. SW will fax PT/OT once available. Pao Gómez ENGINEERING TECHNOLOGY INSTRUCTOR, GUIDANCE AND CONTROL SYSTEM ENGINEER
--- NOTE | 2020-09-24 14:44 | CASEMGMT ---
Social Work Note Pt requested to speak to this worker. Pt states he will be discharging home now. Pt states he will need to go to [facility] as many days as he can. Pt states he will need HHC to come out as many days as they can, and two nurses will need to be available as it takes two nurses to do dressing changes. Pt states I will also need my wound supplies. Pt states he will need to have all of this arranged before he can discharge home. Pt states he understands why [facility] was not able to accept him. SW informed pt that this worker will update RN CHRISTIANO who will arrange home going needs now. JOHN informed pt that this worker cannot guarantee how many days he will be able to get into [facility] or how many days HHC will be available, it just depends on schedule and insurance. Pt states understanding. JOHN updated RN CHRISTIANO. Pao Gómez DATA MIGRATION CONSULTANT, NETWORK ARCHITECT MANAGER
[2020-09-24 14:45] VITALS: BP 131/59; PULSE 86; RESP 18; TEMP 37.1; O2SAT 95
--- NOTE | 2020-09-24 14:48 | CASEMGMT ---
Addendum entered by Lianna Masters 09/24/20 15:50: Script for dsg supplies obtained from Dr Kinney and given to pt at this time. He was made aware he can get these from drug store. He states he also uses [facility] and has supplies shipped. He was made aware [facility] can assist with getting supplies as well. Pt was made aware if he is d/c'd this PM, [facility] will do start of care tomorrow. He was provided w/their contact info. Pt denies having any other discharge needs/concerns/questions and voices appreciation for assistance. Addendum entered by Lianna Masters 09/24/20 14:55: Pt would like therapy w/[facility] now. Order placed for same and faxed to [facility]. Call placed to [facility] and message left re: same Original Note: LASHONDA ALVARADO: Discharge plan is now for pt to go home w/C. Dr Kinney made aware. Call placed to [facility]. She was made aware plan is for pt to discharge home today. She states start of care will be tomorrow. Discharge instructions and summary to be faxed to [facility] when they are available. Green sheet on chart w/instructions. Pt will need script for dressing change supplies. Awaiting script from Dr Kinney. Michelle POON RN, CM
--- NOTE | 2020-09-24 16:18 | PCM.PN.SRG ---
Subjective: Post op #2. Sitting up in chair. - Physical Exam Vitals/I&O's: Vital Signs Temp Pulse Resp BP Pulse Ox 98.7 F 86 18 131/59 H 95 09/24/20 14:45 09/24/20 14:45 09/24/20 14:45 09/24/20 14:45 09/24/20 14:45 Oxygen Delivery Method Room Air Weight: 446 lb 8 oz Body Mass Index (BMI) 51.5 Intake and Output for Last 24 Hours 09/22/20 09/23/20 09/24/20 23:59 23:59 23:59 Intake Total 3521.92 / 3521.92 5262 / 5262 458 / 458 Output Total 450 / 450 2800 / 2800 1500 / 1500 Balance 3071.92 / 3071.92 2462 / 2462 -1042 / -1042 General: Alert, Oriented x3 HEENT: Atraumatic Oral: Moist Mucosa Lungs: Normal air movement Cardiovascular: Regular rate Abdomen: Obese Extremities: Capillary Refill Less than 3 Seconds, Edema Skin: Ulcer/ Wound - Left medial thigh wound is stable. No active bleeding. Dakins moistened gauze dressing covered by ABDs is in place with GRACIA wrap for compression. Musculoskeletal: No Tenderness to Palpation of Joints or Extremities Neurological: Cranial nerves II-XII grossly intact Psych/Mental Status: Normal Affect, Appropriate Microbiology Past 72 Hours 09/21/20 10:30 Interface Orders SARS-CoV-2 Antigen (Rapid) - Final Laboratory Results 09/24/20 05:20: WBC 8.2, RBC 3.42 L, Hgb 9.4 L, Hct 28.3 L, MCV 82.7, MCH 27.5, MCHC 33.2, RDW Std Deviation 51.3 H, RDW Coeff of Alee 16.9 H, Plt Count 148 L, MPV 9.1 09/24/20 05:20: Sodium 138, Potassium 3.9, Chloride 107, Carbon Dioxide 29.0, Anion Gap 2 L, BUN 22 H, Creatinine 1.05, Estim Creat Clear Calc 113.65, Est GFR (MDRD) Af Amer 98, Est GFR (MDRD) Non-Af 81, BUN/Creatinine Ratio 21.0 H, Glucose 133 H, Calcium 8.0 L Current Medications Acetaminophen (Acetaminophen 325 Mg Tablet) 650 mg PO Q6H PRN PRN PRN Reason: PAIN 1-10 Atorvastatin Calcium (Atorvastatin Calcium 40 Mg Tablet) 40 mg PO QHS [facility] Last Admin: 09/23/20 20:57 Dose: 40 mg Documented by: Calcium Carbonate (Calcium Carbonate 500 Mg Tablet) 500 mg PO DAILY@0800 [facility] Last Admin: 09/24/20 07:47 Dose: 500 mg Documented by: Cholecalciferol (Cholecalciferol (Vit D3) 1,000 Unit (25mcg)) 2,000 unit PO DAILY [facility] Last Admin: 09/24/20 08:01 Dose: 2,000 unit Documented by: Diazepam (Diazepam 5 Mg Tablet) 5 mg PO 4X/DAY PRN PRN PRN Reason: SPASMS Docusate Sodium (Docusate Sodium 100 Mg Capsule) 100 mg PO BID [facility] Last Admin: 09/24/20 08:00 Dose: 100 mg Documented by: Enoxaparin Sodium (Enoxaparin 40 Mg/0.4 Ml Syringe) 40 mg SC DAILY@0600 [facility] Last Admin: 09/24/20 05:58 Dose: 40 mg Documented by: Fluticasone Propionate (Fluticasone 0.05% 1 [place] Nasal.Sry) 2 spray NASAL DAILY PRN PRN Reason: ALLERGIES Furosemide (Furosemide 40 Mg Tablet) 40 mg PO DAILY [facility] Last Admin: 09/24/20 08:02 Dose: 40 mg Documented by: Clindamycin Phosphate 600 mg/ (Dextrose) 54 mls @ 100 mls/hr IV Q8 [facility] Last Infusion: 09/24/20 14:32 Dose: Infused Documented by: Lisinopril (Lisinopril 10 Mg Tablet) 10 mg PO DAILY [facility] Last Admin: 09/24/20 08:01 Dose: 10 mg Documented by: Multivitamins (Multivitamins,Therapeutic Tablet) 1 tablet PO DAILY@0800 [facility] Last Admin: 09/24/20 07:47 Dose: 1 tablet Documented by: Nutritional Formula (Nutritional Supplement (David) Packet) 1 packet PO BIDCM [facility] Last Admin: 09/24/20 07:46 Dose: 1 packet Documented by: Ondansetron HCl (Ondansetron 4 Mg/2 Ml Vial) 4 mg IV Q6H PRN PRN PRN Reason: NAUSEA Oxycodone HCl (Oxycodone 5 Mg Tablet) 10 mg PO Q3H PRN PRN PRN Reason: Pain Score 4-5 Last Admin: 09/24/20 14:01 Dose: 10 mg Documented by: Pantoprazole Sodium (Pantoprazole Sodium 20 Mg Tablet) 20 mg PO DAILY [facility] Last Admin: 09/24/20 08:02 Dose: 20 mg Documented by: Polysaccharide Iron Complex (Iron Polysaccharide Complex 150 Mg Capsule) 150 mg PO DAILYCM [facility] Last Admin: 09/24/20 07:55 Dose: 150 mg Documented by: Promethazine HCl (Promethazine 25 Mg Tablet) 25 mg PO Q4H PRN PRN PRN Reason: NAUSEA/VOMITING Quetiapine Fumarate (Quetiapine 25 Mg Tablet) 25 mg PO QHS [facility] Last Admin: 09/23/20 20:57 Dose: 25 mg Documented by: Quetiapine Fumarate (Quetiapine 25 Mg Tablet) 12.5 mg PO DAILY [facility] Last Admin: 09/24/20 08:02 Dose: 12.5 mg Documented by: Sertraline HCl (Sertraline 50 Mg Tablet) 50 mg PO DAILY [facility] Last Admin: 09/24/20 08:01 Dose: 50 mg Documented by: Sodium Chloride (0.9% Saline Lock 10 Ml Syringe) 10 - 40 ml IV UD PRN PRN Reason: SALINE FLUSH Last Admin: 09/23/20 20:44 Dose: 10 ml Documented by: Sodium Hypochlorite ([place]akin's [place] Half Strength (=0.25%)) 1 applic TOPICAL DAILY [facility]; Protocol Last Admin: 09/24/20 07:56 Dose: 1 applic Documented by: Medical Necessity - Tobacco Use Smoking Status: Former smoker Tobacco Use: Non-smoker Assessment/Plan All Active Problems (Last Reviewed 08/21/20 @ 20:[address] Xavi Kinney MD) Acute postoperative anemia due to expected blood loss (Acute) NURYS (acute kidney injury) (Resolved) Chest pain (Resolved) Near syncope (Resolved) Nonhealing ulcer of left lower extremity with fat layer exposed (Resolved) Shortness of breath (Resolved) UTI (urinary tract infection) (Resolved) Ulcer of left thigh (Resolved) 1. Redundant skin and subcutaneous tissue bilateral medial and posterior thighs, worse on the left. 2. Bilateral medial thigh intertrigo, worse on the left. 3. Excessive body weight loss from bariatric surgery (250 lbs). 4. History of bariatric surgery. 5. Obesity. 6. Lymphedema. 7. Former smoker. Left thigh wound is stable. There is no active bleeding. Will plan on doing Dakin's moistened gauze dressing changes 1-2 times per day. Double GRACIA wrap for compression. He will be discharged on Clindamycin x 10 days, orally upon discharge. Carroll will be discontinued today. Prealbumin 22.8. Encouraged protein supplementation due to the size of the wound. Hgb 9.3 today, down from 10.0. Will start him on iron. He has acute postoperative anemia from expected blood loss. Will recheck his hemoglobin as an outpatient at the wound center. Discussed with patient that with a wound this size and his lymphedema, there will be a large amount of drainage. It may required dressing changes a couple times per day. 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 He will have home health to assist with him a couple times per week with the dressing change. He will follow up Monday09/28/20 at the wound center. He was denied to go to a rehab so he will be going home today. Percocet (40 tabs) have been ordered for pain. Valium (30 tabs) has been ordered for muscle spasms.
--- NOTE | 2020-09-24 17:21 | PCM.DC ---
You will use the following diet at home:: No restrictions, Other - encourage nutritional supplementation with protein to help the healing process Discharge Activity: May Not Drive, May Shower - at the time of the dressing change., - - elevate left leg when sitting. May shower in (days): 1 May resume sexual activity in: 10-14 days Weight Bearing Status: Weight bearing as tolerated Keep extremity elevated above heart level: Left Leg Call your doctor if your incision/area has: Continuous Slow Oozing, Sudden Increased Bleeding, Increased Pain/ Swelling, Increased Redness, Foul Smelling Discharge, Swelling at the incision site Call your doctor if you observe: Fever of 101 or Higher, Coldness, Increased Pain, Shortness of breath, Chest pain, Calf discomfort, Uncontrolled pain Suture Line Care: - - daily dressing changes with Dakin's dampened kerlix gauze followed by dry kerlix gauze and abd pads and compression jules wrap. Cleanse incision/area with: Soap & Water - cleanse the wound with soap and water at the time of the Dakin's dressing change., - - may shower at the time of the dressing change. Additional Dressing/Incision Instructions:: Home Health to assist with wound dressing changes to left thigh 3 times per week with Dakin's and dampened kerlix gauze followed by dry kerlix gauze and abd pads and a compression jules wrap. Allergies/Adverse Reactions: Allergies Penicillins Allergy (Verified 08/21/20 08:36) Unknown dx as a child and does not know what his reaction was Medications to take at Discharge Acetaminophen [Tylenol Tablet] 650 mg PO Q6H PRN PRN tab 06/04/19 Calcium Carbonate [Tums] 500 mg PO DAILY@0800 07/23/19 Cholecalciferol (Vitamin D3) [Vitamin D3] 2,000 unit PO DAILY 07/23/19 atorvastatin 40 mg tablet 40 mg PO QHS #90 tab 11/19/19 fluticasone propionate 50 mcg/actuation nasal spray,suspension 2 spray INTRANASAL DAILY PRN #54.6 ml 01/29/20 omeprazole 20 mg capsule,delayed release See Rx Instructions .ROUTE .COMPLEX #90 cap 01/30/20 lisinopril 10 mg tablet 10 mg PO DAILY #90 tab 04/29/20 miconazole nitrate 2 % topical powder 1 applic TOPICAL BID #4 unit 04/29/20 multivitamin,[id number]-[id number]-[id number] 1 tab PO DAILY 04/29/20 hydrocortisone 1 % lotion 1 applic TOPICAL BID PRN #120 ml 05/01/20 tacrolimus 0.03 % topical ointment 1 applic TOPICAL BID #30 g 05/19/20 betamethasone dipropionate 0.05 % topical cream 1 applic TOPICAL DAILY PRN #45 g 05/22/20 sertraline 50 mg tablet See Rx Instructions .ROUTE .COMPLEX #90 tab 07/08/20 quetiapine 25 mg tablet 25 mg PO QHS #180 tab 07/29/20 levoFLOXacin tablet [Levaquin tablet] 500 mg PO DAILY #7 tab 08/28/20 furosemide 40 mg tablet See Rx Instructions .ROUTE .COMPLEX #60 tab 09/08/20 Clindamycin HCl [Cleocin] 300 mg PO TID #30 cap 09/24/20 Diazepam [Valium] 5 mg PO 4X/DAY PRN PRN #30 tablet 09/24/20 Iron Polysaccharide Complex [Ferrex 150] 150 mg PO DAILYCM #30 cap 09/24/20 Oxycodone HCl/Acetaminophen [Percocet 5/325] 1 tablet PO Q4H PRN PRN 7 Days #40 tablet 09/24/20 Sodium Hypochlorite [Dakins Solution 0.25% (1/2 Strength)] 1 applic TOPICAL DAILY #3 bottle 09/24/20 The following prescriptions were given: Clindamycin HCl [Cleocin] 300 mg PO TID #30 cap Transmission Status: Pending to [address] Sodium Hypochlorite [Dakins Solution 0.25% (1/2 Strength)] 1 applic TOPICAL DAILY #3 bottle Transmission Status: Pending to [address] Iron Polysaccharide Complex [Ferrex 150] 150 mg PO DAILYCM #30 cap Transmission Status: Pending to [address] levoFLOXacin tablet [Levaquin tablet] 500 mg PO DAILY #7 tab Transmission Status: Received by [address] Oxycodone HCl/Acetaminophen [Percocet 5/325] 1 tablet PO Q4H PRN PRN 7 Days #40 tablet PRN Reason: Pain Score 6-10 Transmission Status: Received by [address] Diazepam [Valium] 5 mg PO 4X/DAY PRN PRN #30 tablet PRN Reason: Spasms Transmission Status: Received by [id number] Orders to be completed after discharge: CBC-Complete Blood Cnt No Diff Time Frame: 1 Week, Facility: [facility], [facility] Primary Care Physician: Brian Johnson MD [Primary Care Provider] - Test Results: Test results from this visit will be discussed in further detail at your follow-up appointment, if applicable. Please Follow Up With: Xavi Kinney MD - call [phone] for appt. When: monday09/28/20 at wound center. Proposed Discharge Date: 09/24/20
[2020-09-24 19:43] VITALS: BP 106/58; PULSE 97; RESP 18; TEMP 37.8; O2SAT 98
[2020-09-24] MEDS: Acetaminophen 325 MG Tablet 650 MG PO (19:47)
== END 2020-09-24 20:33 | disposition home or self-care (01) | DRG 364 ==
LOC: SDC 13:06 → MS3 13:06
PROVIDERS: Anesthesiology; Nurse Practitioner Family; Admitting Provider Surgery; PCP Internal Medicine; Referring Provider Surgery; Visit Provider Surgery
PROC: 0JB80ZZ Excision of Abdomen Subcutaneous Tissue and Fascia, Open Approach (ICD-10-PCS; CPT 15830; principal; 2020-09-22 07:15)
DX: L98.7 Excessive and redundant skin and subcutaneous tissue (principal); L30.4 Erythema intertrigo; L73.2 Hidradenitis suppurativa; R63.4 Abnormal weight loss; E66.01 Morbid (severe) obesity due to excess calories; Z68.23 Body mass index [BMI] 23.0-23.9, adult; I89.0 Lymphedema, not elsewhere classified; E78.5 Hyperlipidemia, unspecified; J43.9 Emphysema, unspecified; I11.0 Hypertensive heart disease with heart failure; I50.32 Chronic diastolic (congestive) heart failure; I73.9 Peripheral vascular disease, unspecified; M79.3 Panniculitis, unspecified; M19.90 Unspecified osteoarthritis, unspecified site; D62 Acute posthemorrhagic anemia; Z98.84 Bariatric surgery status; Z86.711 Personal history of pulmonary embolism; Z79.899 Other long term (current) drug therapy; Z87.891 Personal history of nicotine dependence; Z20.822 Contact with and (suspected) exposure to COVID-19
CPT/HCPCS: 36415; 80048; 80053; 81001; 84134; 85025; 85027; 87426; 88305; 88341; 88342; 97162; 97166; 99251; C9803; J7120; A4216; G0463; J2405

== ENCOUNTER 2020-09-27 20:17 | Emergency (ER) | payer MEDICAID, SELFPAY ==
[2020-09-22 12:16] VITALS: BMI 51.5
[2020-09-27 20:18] VITALS: BP 124/88; PULSE 87; RESP 15; TEMP 37.3; O2SAT 98; BMI 52.0
--- NOTE | 2020-09-27 20:44 | ED.VISSUMM ---
- ER Visit Summary Date of Service: 09/27/20 Chief Complaint: Possible wound infection History of Present Illness: The patient is a 45 M who presents with possible wound infection to his left inguinal area. Patient states he had recent surgery to his left inguinal area by Dr. Kinney. Patient states he had a fluid pocket opened and drained. Patient states that today he noted some foul-smelling drainage. Patient states it appeared to be purulent. Patient states nothing makes it better or worse. Patient admits to chills but denies any fevers. Patient states he was having some intermittent shortness of breath and chest pain prior to arrival but states this has resolved. Patient denies any cough. Physical Examination: Vital signs are stable. Patient is afebrile. Patient is in no acute distress. Skin is warm dry. There is an open wound in the left inguinal and left thigh area. There is some mild erythema over the proximal part of the wound. The dressing is in place. Pedal pulses are equal bilaterally. There is no calf tenderness. Sensation was intact to light touch bilaterally lower extremities. Test Results: CBC shows a mild anemia with a hemoglobin of 8.9 and hematocrit 26.6. These are consistent with prior results. White blood cell count is normal. Basic metabolic profile is within normal limits. Wound culture was obtained and is pending. Emergency Department Course and Treatment: Patient was given a dose of clindamycin here. Patient was given a prescription for clindamycin. Patient was instructed to follow-up with his surgeon in 3 to 5 days. Patient was instructed return if worse in any way. Patient understood and was agreeable with the plan. All questions were answered. Disposition: Discharge home Impression: Cellulitis left thigh This note was generated with [employer] dictation software. It may contain incorrect words, spelling, and punctuation that were not noted in review of the chart prior to signing ED Disposition - Plan for ED Patient: Disposition: Home or Assisted Living Diagnosis: Cellulitis of left thigh Instructions: ED Cellulitis Prescriptions: Clindamycin HCl [Cleocin] 300 mg PO Q6H #40 cap Transmission Status: Pending to [facility] Referrals: Brian Johnson MD [Primary Care Provider] - 5-7 Days Xaiv Kinney MD [STAFF PHYSICIAN] - 3-5 Days
[2020-09-27 21:23] LABS: Absolute Lymphocyte Count 0.86 X10^3/uL (0.83-4.51); Absolute Neutrophil Count 4.9 X10^3/uL (2.0-7.7); Basophil# 0.02 X10^3/uL; Basophil% 0.3 % (0-1); Eosinophil# 0.25 X10^3/uL; Eosinophils% 3.6 % (0-5); Hematocrit 26.6 % (40-54); Hemoglobin 8.9 g/dL (13.0-16.5); Lymphocyte # 0.86 X10^3/ul (4.0); Lymphocyte % 12.2 % (19-41); Mean Corp Hgb Conc 33.5 g/dL (32-36); Mean Corpuscular Hgb 27.5 pg (27.0-32.0); Mean Corpuscular Volume 82.1 fL (80-94); Mean Platelet Vol. 9.5 fl (6.2-12.0); Monocyte# 0.99 X10^3/uL; Monocyte% 14.1 % (0-10); NRBC Flagged by Analyzer 0 % (0-5); Neutrophil # 4.88 X10^3/uL (2.7-7.7); Neutrophil % 69.4 % (47-70); Platelet Count 228 K/mm3 (150-450); RBC Distribution Width CV 16.1 % (11.6-14.6); RBC Distribution Width SD 48.8 fl (35.1-43.9); Red Blood Count 3.24 M/mm3 (4.6-6.2)
[2020-09-27 21:25] VITALS: BP 117/97; PULSE 82; RESP 20; TEMP 36.8
[2020-09-27 21:42] LABS: Anion Gap 5 (5-15); BUN 20 mg/dL (7-18); BUN/Creat Ratio 20.9 RATIO (10-20); Calcium,Total 7.7 mg/dL (8.5-10.1); Chloride 107 mmol/L (98-107); Creatinine, Serum 0.96 mg/dL (0.70-1.30); EST Glomerular Filtration Rate 90 mL/min (>60); Est Glom Filt Rate - Afr Amer 109 mL/min (>60); Glucose 110 mg/dL (74-106); Sodium Level 138 mmol/L (136-145)
[2020-09-27] MEDS: Clindamycin HCl 150 MG Capsule 300 MG PO (22:05)
== END 2020-09-27 22:16 | disposition home or self-care (01) ==
PROVIDERS: Emergency Provider Emergency Medicine; PCP Internal Medicine
DX: L03.116 Cellulitis of left lower limb (principal); E66.9 Obesity, unspecified; Z68.43 Body mass index [BMI] 50.0-59.9, adult
CPT/HCPCS: 80048; 85025; 87070; 87077; 87186; 87205; 99283; A4216

== ENCOUNTER 2020-09-28 13:11 | Outpatient (RCR) | payer MEDICAID, SELFPAY ==
[2020-09-22 12:16] VITALS: BMI 51.5
[2020-09-27 20:18] VITALS: BMI 52.0
[2020-09-28 13:27] VITALS: BP 128/76; PULSE 78; TEMP 36.1; BMI 52.0
--- NOTE | 2020-09-28 16:46 | PCM.WC.HP ---
(1) Open wound of left thigh Status: Acute Code(s): S71.102A - Unspecified open wound, left thigh, initial encounter (2) Acute postoperative anemia due to expected blood loss Status: Acute Code(s): D62 - Acute posthemorrhagic anemia (3) Excessive and redundant skin and subcutaneous tissue Status: Chronic Code(s): L98.7 - Excessive and redundant skin and subcutaneous tissue Comment: bilateral medial thighs (4) Intertrigo Status: Chronic Code(s): L30.4 - Erythema intertrigo Comment: abdominal wall skin crease intertrigo and bilateral thigh intertrigo (5) Excessive body weight loss Status: Chronic Code(s): R63.4 - Abnormal weight loss Comment: from weight loss surgery (about 250 lbs) (6) Panniculitis Status: Chronic Code(s): M79.3 - Panniculitis, unspecified (7) Abdominal panniculus Status: Chronic Code(s): E65 - Localized adiposity (8) Chronic acquired lymphedema Status: Chronic Code(s): I89.0 - Lymphedema, not elsewhere classified (9) Morbid obesity Status: Chronic Code(s): E66.01 - Morbid (severe) obesity due to excess calories History of Present Illness Date of Service: 09/28/20 Chief Complaint: Left medial thigh wound after surgery on 09/22/20 for Excision redundant skin and subcutaneous tissue left medial and posterior thigh with dermolipectomy. History of Wound: 45 year old man presents with areas of redundant skin and subcutaneous tissue in his bilateral medial thighs and abdominal panniculus with associated panniculitis. There is abdominal wall skin crease intertrigo and bilateral medial thigh intertrigo for which he uses powders for relief. This excess skin and subcutaneous tissue was the result of bariatric surgery done in [place] in May,. He lost about 250 lbs and his current weight is about 440 lbs. He has a history of lower extremity lymphedema resulting from the extreme body weight and has persistent dependent edema in his medial thighs which aggravates his symptomatology. He denies trauma. He denies fever. Both areas bother him but the medial thighs are his initial priority as he has trouble with ambulating. We have received medical approval from his insurance company for his thigh surgery. Surgery 09/22/20 - Excision redundant skin and subcutaneous tissue left medial and posterior thigh with dermolipectomy. After surgery attmepted to use a wound VAC but the size of the wound is too large and would not be able to keep a seal in the left groin by the scrotum. Wound care - Dakin's moistened gauze twice daily topped by ABDs and a double GRACIA wrap for compression. Encouraged patient to go to an ECF while he was hospitalized for wound management but he refused because he did not want to go to the facility that case management found to accept him. He stated his is a nurse and she will be able to help with his dressing changes. Patient discharged home with home health. He comes in today stating that they are going through a lot of wound supplies. They still have not received any dressings that home health said they ordered. His clothes are soaked after 4-5 hours after the dressing change due to the amount of drainage he is having. He states his is overwhelmed by caring for him and this large wound. His has found [facility] in [place] to accept him when they have a bed available in a few days if we will order a referral to them. Today he denies fever and chills and states his appetite is good and he is drinking a lot of fluids. Past Medical History Past Medical History: Chronic Problems (Last Reviewed 08/21/20 @ 20:[address] Xavi iKnney MD) Former smoker (Chronic) History of bariatric surgery (Chronic) gastric sleeve in May, in [place] Excessive body weight loss (Chronic) from weight loss surgery (about 250 lbs) Excessive and redundant skin and subcutaneous tissue (Chronic) bilateral medial thighs Intertrigo (Chronic) abdominal wall skin crease intertrigo and bilateral thigh intertrigo Panniculitis (Chronic) Abdominal panniculus (Chronic) Dyspnea on exertion (Chronic) Chronic diastolic heart failure (Chronic) Essential (primary) hypertension (Chronic) Hyperlipidemia (Chronic) Incomplete right bundle branch block (Chronic) CRISTINO (obstructive sleep apnea) (Chronic) Pulmonary embolism (Chronic) COPD (chronic obstructive pulmonary disease) (Chronic) Chronic acquired lymphedema (Chronic) Morbid obesity (Chronic) Surgical History: - Allergies/Adverse Reactions: Allergies Penicillins Allergy (Verified 09/27/20 20:26) Unknown dx as a child and does not know what his reaction was Home Medications: Ambulatory Orders Medication Instructions Recorded Acetaminophen [Tylenol Tablet] 650 mg PO Q6H PRN PRN tab 06/04/19 Calcium Carbonate [Tums] 500 mg PO DAILY@0800 07/23/19 Cholecalciferol (Vitamin D3) 2,000 unit PO DAILY 07/23/19 [Vitamin D3] atorvastatin 40 mg tablet 40 mg PO QHS #90 tab 11/19/19 fluticasone propionate 50 2 spray INTRANASAL DAILY PRN #54.6 01/29/20 mcg/actuation nasal ml spray,suspension omeprazole 20 mg capsule,delayed See Rx Instructions .ROUTE 01/30/20 release .COMPLEX #90 cap lisinopril 10 mg tablet 10 mg PO DAILY #90 tab 04/29/20 miconazole nitrate 2 % topical 1 applic TOPICAL BID #4 unit 04/29/20 powder multivitamin,[id number]-pjrt-[id number] 1 tab PO DAILY 04/29/20 hydrocortisone 1 % lotion 1 applic TOPICAL BID PRN #120 ml 05/01/20 tacrolimus 0.03 % topical ointment 1 applic TOPICAL BID #30 g 05/19/20 betamethasone dipropionate 0.05 % 1 applic TOPICAL DAILY PRN #45 g 05/22/20 topical cream sertraline 50 mg tablet See Rx Instructions .ROUTE 07/08/20 .COMPLEX #90 tab quetiapine 25 mg tablet 25 mg PO QHS #180 tab 07/29/20 furosemide 40 mg tablet See Rx Instructions .ROUTE 09/08/20 .COMPLEX #60 tab Clindamycin HCl [Cleocin] 300 mg PO TID #30 cap 09/24/20 Diazepam [Valium] 5 mg PO 4X/DAY PRN PRN #30 tab 09/24/20 Iron Polysaccharide Complex 150 mg PO DAILYCM #30 cap 09/24/20 [Ferrex 150] Oxycodone HCl/Acetaminophen 1 tab PO Q4H PRN PRN 7 Days #40 tab 09/24/20 [Percocet 5/325] Sodium Hypochlorite [Dakins 1 applic TOPICAL DAILY #3 bottle 09/24/20 Solution 0.25% (1/2 Strength)] Clindamycin HCl [Cleocin] 300 mg PO Q6H #40 cap 09/27/20 - Family History Maternal Family History: Family History (Last Reviewed 08/21/20 @ 20:[address] Xavi Kinney MD) Father Myocardial infarction Hypertension Heart disease Arthritis Cancer Hypertension Paternal Family History: Family History (Last Reviewed 08/21/20 @ 20:[address] Xavi Kinney MD) Father Myocardial infarction Hypertension Heart disease Arthritis Cancer Cancer, High Cholesterol, Heart Disease, Hypertension Review of Systems Constitutional: Denies: Chills, Fever Eyes: Denies: Pain, Vision Change HEENT: Denies: Difficulty Hearing, Difficulty Swallowing, Sinus Congestion Cardiovascular: Denies: Chest Pain, Chest Pressure Respiratory: Denies: Cough, Shortness of Breath Gastrointestinal: Denies: Abdominal Pain, Diarrhea Genitourinary: Denies: Incontinence Musculoskeletal: Reports: Leg Pain - Left thigh pain from his recent surgery. Skin: Reports: Wounds - Left medial and posterior thigh wound. Neurological: Denies: Balance problems Psychiatric: Denies: Anxiety Hematologic/ Lymphatic: Denies: Adenopathy - Physical Exam Vital Signs Temp Pulse BP 97.0 F L 78 128/76 H 09/28/20 13:27 09/28/20 13:27 09/28/20 13:27 General: Alert, Oriented x3, Cooperative HEENT: Atraumatic Oral: Moist Mucosa Lungs: Normal air movement Cardiovascular: Regular rate Abdomen: Obese Extremities: Capillary Refill Less than 3 Seconds Skin: Ulcer/ Wound - Left medial and posterior thigh wound is beefy pink, draining a large amount of clear/serosanguineous drainage. Josephine wound is stable. Wound Measurements and Assessment WC - Nurse 1 - General Ulcer Measurement Start: 09/28/20 13:26 Freq: Status: Active Protocol: Activity Type Activity Date Activity User E-Sign Co-Sign Detail Recorded Client Recorded Date Recorded By Document 09/28/20 13:27 DL [id number] 09/28/20 13:51 DL 09/28/20 13:27 Wound Center Nurse 1 [Ulcer Assessment] #8 Left Medial Thigh/Groin -Current Size (cm) - Length 41.3 -Current Size (cm) - Width 24 -Current Size (cm) - Depth 3.8 -Total Square Cm 991.2 -Exudate Amt Large -Exudate Type Serosanguineous -Wound Margin Distinct, Outline Attached -Granulation Amt Large (67-100%) -Granulation Quality Red -Necrosis Amt Large (67-100%) -Necrotic Tissue Type Adherent Slough -Structure Exposed Fat Layer Exposed -Texture (Josephine-wound Skin Appearance) Assessed, Scarring -Moisture (Josephine-wound Skin Appearance No Abnormality, ) Assessed -Color (Josephine-wound Skin Appearance) No Abnormality, Assessed -Temperature (Josephine-wound Skin No Abnormality Appearance) (Pt Warm) -Tenderness on Palpation (Josephine-wound No Skin Appearance) -Ulcer Cleansing soap and water -Foul Odor after Cleansing No -Anesthetic Used 4% Lidocaine Solution WC - Nurse 2 - General Ulcer CM Notes Start: 09/28/20 13:26 Freq: Status: Active Protocol: Activity Type Activity Date Activity User E-Sign Co-Sign Detail Recorded Client Recorded Date Recorded By Document 09/28/20 14:14 [id number] 09/28/20 14:29 09/28/20 14:14 Wound Center Nurse 2 [Procedure/Treatment] -Correct Patient No -Correct Side, Site, Position No -Correct Procedure No -Procedure Performed No -Wound/Ulcer Outcome Not Healed [See Physician Procedure note for Specifics] Pain Scale: 0-10 Numeric [Pain] -Is Patient Pain Free? Yes - Nurse 3 - General Ulcer D/C NN Start: 09/28/20 13:26 Freq: Status: Active Protocol: Activity Type Activity Date Activity User E-Sign Co-Sign Detail Recorded Client Recorded Date Recorded By Document 09/28/20 14:31 [id number] 09/28/20 14:31 09/28/20 14:31 Wound Care Nurse 3 [Wound Dressing] #8 Left Medial Thigh/Groin -Ulcer Cleansing Rinsed/ Irrigated with Saline -Negative Pressure Wound Therapy N/A -Primary Dressing Covered/Secured Dry Gauze & with Roll Gauze, Secured with Tape Pain Scale: 0-10 Numeric [Pain] -Is Patient Pain Free? Yes - Visit Discharge [Visit Discharge Information] -Discharge Condition Stable -Ambulatory Status Ambulatory -Transportation Private Auto -Medication Reconcilliation completed Yes & provided to patient/care provider -Clinical Summary of Care Provided Yes Musculoskeletal: Tenderness Neurological: Cranial nerves II-XII grossly intact Psych/Mental Status: Normal Affect, Appropriate Debridement Note Post-Debridement Measurements/Treatment ACOSTA - Nurse 2 - General Ulcer CM Notes Start: 09/28/20 13:26 Freq: Status: Active Protocol: Activity Type Activity Date Activity User E-Sign Co-Sign Detail Recorded Client Recorded Date Recorded By Document 09/28/20 14:14 [id number] 09/28/20 14:29 09/28/20 14:14 Wound Center Nurse 2 #8 Left Medial Thigh/Groin -Correct Patient No -Correct Side, Site, Position No -Correct Procedure No -Procedure Performed No -Wound/Ulcer Outcome Not Healed Pain Scale: 0-10 Numeric Is Patient Pain Free? Yes - Nurse 3 - General Ulcer D/C NN Start: 09/28/20 13:26 Freq: Status: Active Protocol: Activity Type Activity Date Activity User E-Sign Co-Sign Detail Recorded Client Recorded Date Recorded By Document 09/28/20 14:31 [id number] 09/28/20 14:31 09/28/20 14:31 Wound Care Nurse 3 #8 Left Medial Thigh/Groin -Ulcer Cleansing Rinsed/ Irrigated with Saline -Negative Pressure Wound Therapy N/A -Primary Dressing Covered/Secured with Dry Gauze & Roll Gauze, Secured with Tape Pain Scale: 0-10 Numeric Is Patient Pain Free? Yes WC - Visit Discharge Discharge Condition Stable Ambulatory Status Ambulatory Transportation Private Auto Medication Reconcilliation completed & Yes provided to patient/care provider Clinical Summary of Care Provided Yes Wound debrided: medial and posterior thigh wound Laterality: Left No debridement was completed today Assessment/Plan Active Problems (Last Reviewed 08/21/20 @ 20:[address] Xavi Kinney MD) Open wound of left thigh (Acute) Acute postoperative anemia due to expected blood loss (Acute) Excessive body weight loss (Chronic) from weight loss surgery (about 250 lbs) Excessive and redundant skin and subcutaneous tissue (Chronic) bilateral medial thighs Intertrigo (Chronic) abdominal wall skin crease intertrigo and bilateral thigh intertrigo Panniculitis (Chronic) Abdominal panniculus (Chronic) Chronic acquired lymphedema (Chronic) Morbid obesity (Chronic) Assessment: 1. Redundant skin and subcutaneous tissue bilateral medial and posterior thighs, worse on the left. 2. Bilateral medial thigh intertrigo, worse on the left. 3. Excessive body weight loss from bariatric surgery (250 lbs). 4. History of bariatric surgery. 5. Obesity. 6. Lymphedema. 7. Former smoker. Plan: Patient was seen and evaluated in the wound healing center today. A wound debridement was not performed today due to him just having had surgery last week. Wound is beefy pink and stable. He is have a large amount of drainage. Wound care - Dakin's moistened gauze covered by ABDs BID and prn and double GRACIA wrap for compression. Patient's has spoken to someone at [facility] in [place] who states they think he would be an appropriate patient, once they get insurance approval and an available bed. Will fax a referral to them with appropriate notes. If he does not get placed before next week, he will follow up in one week here. Encouraged increase protein and fluid intake due to the size and the amount of drainage from his wound. [id number]: [id number] Global Visit
== END 2020-10-11 23:59 ==
LOC: WC 13:11
PROVIDERS: PCP Internal Medicine; Referring Provider Internal Medicine; Visit Provider Surgery
DX: L98.7 Excessive and redundant skin and subcutaneous tissue (principal); L30.4 Erythema intertrigo; Z98.84 Bariatric surgery status; Z87.891 Personal history of nicotine dependence; I89.0 Lymphedema, not elsewhere classified; E66.01 Morbid (severe) obesity due to excess calories; Z79.899 Other long term (current) drug therapy; J44.9 Chronic obstructive pulmonary disease, unspecified; G47.33 Obstructive sleep apnea (adult) (pediatric); I50.32 Chronic diastolic (congestive) heart failure; I11.0 Hypertensive heart disease with heart failure; E78.5 Hyperlipidemia, unspecified
CPT/HCPCS: 99214; G0463

== ENCOUNTER 2020-11-02 13:20 | Outpatient (RCR) | payer MEDICAID, SELFPAY ==
[2020-10-12 00:39] VITALS: BP 128/76; PULSE 78; TEMP 36.1
[2020-10-28 11:26] VITALS: BMI 52.0
[2020-11-02 13:27] VITALS: BP 135/82; PULSE 61; RESP 20; TEMP 36.4; BMI 52.0
--- NOTE | 2020-11-02 15:11 | PCM.WC.PN ---
(1) Chronic ulcer of left thigh with fat layer exposed Status: Chronic Code(s): L97.122 - Non-pressure chronic ulcer of left thigh with fat layer exposed (2) Excessive and redundant skin and subcutaneous tissue Status: Chronic Code(s): L98.7 - Excessive and redundant skin and subcutaneous tissue Comment: bilateral medial thighs (3) History of bariatric surgery Status: Chronic Code(s): Z98.84 - Bariatric surgery status Comment: gastric sleeve in May, in [place] (4) Excessive body weight loss Status: Chronic Code(s): R63.4 - Abnormal weight loss Comment: from weight loss surgery (about 250 lbs) (5) Intertrigo Status: Chronic Code(s): L30.4 - Erythema intertrigo Comment: abdominal wall skin crease intertrigo and bilateral thigh intertrigo (6) Panniculitis Status: Chronic Code(s): M79.3 - Panniculitis, unspecified Type of Wound Date of Service: 11/02/20 Chief Complaint: Left medial thigh wound after surgery on 09/22/20 for Excision redundant skin and subcutaneous tissue left medial and posterior thigh with dermolipectomy. History of Wound: 45 year old man presents with areas of redundant skin and subcutaneous tissue in his bilateral medial thighs and abdominal panniculus with associated panniculitis. There is abdominal wall skin crease intertrigo and bilateral medial thigh intertrigo for which he uses powders for relief. This excess skin and subcutaneous tissue was the result of bariatric surgery done in [place] in May,. He lost about 250 lbs and his current weight is about 440 lbs. He has a history of lower extremity lymphedema resulting from the extreme body weight and has persistent dependent edema in his medial thighs which aggravates his symptomatology. He denies trauma. He denies fever. Both areas bother him but the medial thighs are his initial priority as he has trouble with ambulating. We have received medical approval from his insurance company for his thigh surgery. Surgery 09/22/20 - Excision redundant skin and subcutaneous tissue left medial and posterior thigh with dermolipectomy. After surgery attempted to use a wound VAC but the size of the wound is too large and would not be able to keep a seal in the left groin by the scrotum. Wound care - Dakin's moistened gauze twice daily topped by ABDs and a double GRACIA wrap for compression. He was using saline moistened gauze while at [facility]. He came home from [facility] last week. Today he denies fever and chills and states his appetite is good. Progress of Wound: Stable. - Physical Exam Vital Signs Temp Pulse Resp BP 97.5 F L 61 20 H 135/82 H 11/02/20 13:27 11/02/20 13:27 11/02/20 13:27 11/02/20 13:27 General: Alert, Oriented x3, Cooperative HEENT: Atraumatic Oral: Moist Mucosa Lungs: Normal air movement Cardiovascular: Regular rate Abdomen: Obese Extremities: Edema - bilateral leg edema/lymphadema Skin: Ulcer/ Wound - Left medial thigh ulcer. Sutures that were placed intermittently were removed without difficulty. Has increased slough due to not being debrided recently. Wound Measurements and Assessment WC - Nurse 1 - General Ulcer Measurement Start: 11/02/20 13:27 Freq: Status: Active Protocol: Activity Type Activity Date Activity User E-Sign Co-Sign Detail Recorded Client Recorded Date Recorded By Document 11/02/20 13:27 [facility] [id number] 11/02/20 13:38 [facility] 11/02/20 13:27 Wound Center Nurse 1 [Ulcer Assessment] #8 Left Medial Thigh/Groin -Combined with other wound No -Current Size (cm) - Length 28.3 -Current Size (cm) - Width 24 -Current Size (cm) - Depth 0.1 -Total Square Cm 679.2 -Photo Taken No -Epithelialization Small 1-33% -Tunneling No -Undermining/Tunneling No -Circular Undermining No -Exudate Amt Large -Exudate Type Serosanguineous -Wound Margin Distinct, Outline Attached -Granulation Amt Medium (34-66%) -Granulation Quality [place] -Slough/Fibrin Yes -Necrosis Amt Large (67-100%) -Necrotic Tissue Type Adherent Slough -Texture (Josephine-wound Skin Appearance) Assessed, Scarring -Moisture (Josephine-wound Skin Appearance Assessed ) -Color (Josephine-wound Skin Appearance) Assessed -Temperature (Josephine-wound Skin No Abnormality Appearance) (Pt Warm) -Tenderness on Palpation (Josephine-wound No Skin Appearance) -Ulcer Cleansing soapy water -Foul Odor after Cleansing No -Anesthetic Used Cetacaine WC - Nurse 2 - General Ulcer CM Notes Start: 11/02/20 13:27 Freq: Status: Active Protocol: Activity Type Activity Date Activity User E-Sign Co-Sign Detail Recorded Client Recorded Date Recorded By Document 11/02/20 13:49 JOHN [id number] 11/02/20 14:04 JOHN 11/02/20 13:49 Wound Center Nurse 2 [Procedure/Treatment] -Time 13:50 -Correct Patient Yes -Correct Side, Site, Position Yes -Correct Procedure Yes -Procedure Performed Yes -Type of Procedure Debridement -Clinical Debridement Subcutaneous -Tissue Removed Subcutaneous -Post Debridement (cm) - Length 30 -Post Debridement (cm) - Width 23 -Post Debridement (cm) - Depth 0.3 -Total Square (Post) (cm) 690 -Area of Debridement (cm) - Length 30 -Area of Debridement (cm) - Width 23 -Total Square (Area) (cm) 690 -Tunneling No -Undermining/Tunneling No -Circular Undermining No -Wound/Ulcer Outcome Not Healed -Ulcer Cleansing Rinsed/ Irrigated with Saline -Foul Odor after Cleansing No -Bioengineered Tissue No -Bleeding Controlled with Pressure -Offloading No -Treatment Response Procedure Tolerated Well -Debridement - Subq, 1st 20sq cm Yes -Debridement, SubQ, ea addt'l 20sq cm 11 or part thereof [See Physician Procedure note for Specifics] Pain Scale: 0-10 Numeric [Pain] -Is Patient Pain Free? Yes - Nurse 3 - General Ulcer D/C NN Start: 11/02/20 13:27 Freq: Status: Active Protocol: Activity Type Activity Date Activity User E-Sign Co-Sign Detail Recorded Client Recorded Date Recorded By Document 11/02/20 14:10 CHAVEZ [id number] 11/02/20 14:11 DL 11/02/20 14:10 Wound Care Nurse 3 [Wound Dressing] #8 Left Medial Thigh/Groin -Ulcer Cleansing Wound Cleanser -Foul Odor after Cleansing No -Other Dressing moist gauze -Primary Dressing Covered/Secured Dry Gauze, with Secured with Tape [Post Procedure Tolerated] -Treatment Response Procedure Tolerated Well Pain Scale: 0-10 Numeric [Pain] -Is Patient Pain Free? Yes - Visit Discharge [Visit Discharge Information] -Discharge Condition Stable -Ambulatory Status Ambulatory -Transportation Private Auto -Notes: Pt to resume Dakins at home. Musculoskeletal: No Tenderness to Palpation of Joints or Extremities Neurological: Cranial nerves II-XII grossly intact Psych/Mental Status: Normal Affect, Appropriate Debridement Note Post-Debridement Measurements/Treatment WC - Nurse 2 - General Ulcer CM Notes Start: 11/02/20 13:27 Freq: Status: Active Protocol: Activity Type Activity Date Activity User E-Sign Co-Sign Detail Recorded Client Recorded Date Recorded By Document 11/02/20 13:49 [id number] 11/02/20 14:04 11/02/20 13:49 Wound Center Nurse 2 #8 Left Medial Thigh/Groin -Time 13:50 -Correct Patient Yes -Correct Side, Site, Position Yes -Correct Procedure Yes -Procedure Performed Yes -Type of Procedure Debridement -Clinical Debridement Subcutaneous -Tissue Removed Subcutaneous -Post Debridement (cm) - Length 30 -Post Debridement (cm) - Width 23 -Post Debridement (cm) - Depth 0.3 -Total Square (Post) (cm) 690 -Area of Debridement (cm) - Length 30 -Area of Debridement (cm) - Width 23 -Total Square (Area) (cm) 690 -Tunneling No -Undermining/Tunneling No -Circular Undermining No -Wound/Ulcer Outcome Not Healed -Ulcer Cleansing Rinsed/ Irrigated with Saline -Foul Odor after Cleansing No -Bioengineered Tissue No -Bleeding Controlled with Pressure -Offloading No -Treatment Response Procedure Tolerated Well -Debridement - Subq, 1st 20sq cm Yes -Debridement, SubQ, ea addt'l 20sq cm 11 or part thereof Pain Scale: 0-10 Numeric Is Patient Pain Free? Yes - Nurse 3 - General Ulcer D/C NN Start: 11/02/20 13:27 Freq: Status: Active Protocol: Activity Type Activity Date Activity User E-Sign Co-Sign Detail Recorded Client Recorded Date Recorded By Document 11/02/20 14:10 DL [id number] 11/02/20 14:11 DL 11/02/20 14:10 Wound Care Nurse 3 #8 Left Medial Thigh/Groin -Ulcer Cleansing Wound Cleanser -Foul Odor after Cleansing No -Other Dressing moist gauze -Primary Dressing Covered/Secured with Dry Gauze, Secured with Tape Treatment Response Procedure Tolerated Well Pain Scale: 0-10 Numeric Is Patient Pain Free? Yes WC - Visit Discharge Discharge Condition Stable Ambulatory Status Ambulatory Transportation Private Auto Notes: Pt to resume Dakins at home. Wound debrided: medial thigh ulcer Laterality: Left Type of Debridement: Excisional debridement Anesthesia Used: 4% Lidocaine Solution Depth: Down to and including healthy tissue, in the subcutaneous layer Percentage of wound debrided: 100 Instrument Used: 7mm curette Tissue Removed: Subcutaneous tissue and slough Severity: Fat Layer Exposed Amount of bleeding with debridement: Moderate Bleeding Controlled with: Pressure, Compression and gauze Patient tolerated procedure well Assessment/Plan Assessment: 1. Redundant skin and subcutaneous tissue bilateral medial and posterior thighs, worse on the left. 2. Bilateral medial thigh intertrigo, worse on the left. 3. Excessive body weight loss from bariatric surgery (250 lbs). 4. History of bariatric surgery. 5. Obesity. 6. Lymphedema. 7. Former smoker. Plan: Wound care - Dakin's moistened Kerlix covered by ABDs daily. GRACIA wrap for compression. Stop the moistened saline dressing changes that he was doing at the SNF. Sutures removed without difficulty. Encouraged increase protein and fluid intake due to the size and the amount of drainage from his wound. Follow up in one week. [id number]: [id number] Global Visit
== END 2020-11-08 23:59 ==
LOC: WC 13:20
PROVIDERS: PCP Internal Medicine; Referring Provider Internal Medicine; Visit Provider Surgery
DX: L97.122 Non-pressure chronic ulcer of left thigh with fat layer exposed (principal); L98.7 Excessive and redundant skin and subcutaneous tissue; Z98.84 Bariatric surgery status; L30.4 Erythema intertrigo; M79.3 Panniculitis, unspecified; I89.0 Lymphedema, not elsewhere classified; Z87.891 Personal history of nicotine dependence; E66.9 Obesity, unspecified
CPT/HCPCS: 11042; 11045; 99213; G0463

== ENCOUNTER 2020-12-07 13:30 | Outpatient (RCR) | payer MEDICAID, SELFPAY ==
[2020-11-09 00:33] VITALS: BP 135/82; PULSE 61; RESP 20; TEMP 36.4
[2020-11-09 13:28] VITALS: BP 145/83; PULSE 67; RESP 18; TEMP 36.5; BMI 52.0
--- NOTE | 2020-11-09 14:47 | PN.PCM_ITS ---
(1) Chronic ulcer of left thigh with fat layer exposed Status: Chronic Code(s): L97.122 - Non-pressure chronic ulcer of left thigh with fat layer exposed (2) Acute postoperative anemia due to expected blood loss Status: Acute Code(s): D62 - Acute posthemorrhagic anemia (3) Excessive and redundant skin and subcutaneous tissue Status: Chronic Code(s): L98.7 - Excessive and redundant skin and subcutaneous tissue Comment: bilateral medial thighs (4) Chronic acquired lymphedema Status: Chronic Code(s): I89.0 - Lymphedema, not elsewhere classified (5) Morbid obesity Status: Chronic Code(s): E66.01 - Morbid (severe) obesity due to excess calories (6) History of bariatric surgery Status: Chronic Code(s): Z98.84 - Bariatric surgery status Comment: gastric sleeve in May, in [place] (7) Former smoker Status: Chronic Code(s): Z87.891 - Personal history of nicotine dependence Type of Wound Date of Service: 11/09/20 Chief Complaint: Left medial thigh wound after surgery on 09/22/20 for Excision redundant skin and subcutaneous tissue left medial and posterior thigh with dermolipectomy. History of Wound: 45 year old man presents with areas of redundant skin and subcutaneous tissue in his bilateral medial thighs and abdominal panniculus with associated panniculitis. There is abdominal wall skin crease intertrigo and bilateral medial thigh intertrigo for which he uses powders for relief. This excess skin and subcutaneous tissue was the result of bariatric surgery done in [place] in May,. He lost about 250 lbs and his current weight is about 440 lbs. He has a history of lower extremity lymphedema resulting from the extreme body weight and has persistent dependent edema in his medial thighs which aggravates his symptomatology. He denies trauma. He denies fever. Both areas bother him but the medial thighs are his initial priority as he has trouble with ambulating. We have received medical approval from his insurance company for his thigh surgery. Surgery 09/22/20 - Excision redundant skin and subcutaneous tissue left medial and posterior thigh with dermolipectomy. After surgery attempted to use a wound VAC but the size of the wound is too large and would not be able to keep a seal in the left groin by the scrotum. Wound care - Dakin's moistened gauze twice daily topped by ABDs and a double GRACIA wrap for compression. He was using saline moistened gauze while at [facility]. He came home from [facility] last week. Today he denies fever and chills and states his appetite is good. Progress of Wound: Improved. - Physical Exam Vital Signs Temp Pulse Resp BP 97.7 F L 67 18 145/83 H 11/09/20 13:28 11/09/20 13:28 11/09/20 13:28 11/09/20 13:28 General: Alert, Oriented x3, Cooperative HEENT: Atraumatic Oral: Moist Mucosa Lungs: Normal air movement Cardiovascular: Regular rate Abdomen: Obese Extremities: Capillary Refill Less than 3 Seconds, Edema Skin: Ulcer/ Wound - Left medial leg ulcer is beefy pink. Wound Measurements and Assessment WC - Nurse 1 - General Ulcer Measurement Start: 11/09/20 13:28 Freq: Status: Active Protocol: Activity Type Activity Date Activity User E-Sign Co-Sign Detail Recorded Client Recorded Date Recorded By Document 11/09/20 13:28 [facility] [id number] 11/09/20 13:37 [facility] 11/09/20 13:28 Wound Center Nurse 1 [Ulcer Assessment] #9 left medial groin/thigh -Combined with other wound No -Current Size (cm) - Length 27.5 -Current Size (cm) - Width 16.5 -Current Size (cm) - Depth 0.1 -Total Square Cm 453.75 -Photo Taken No -Epithelialization Small 1-33% -Tunneling No -Undermining/Tunneling No -Circular Undermining No -Exudate Amt Large -Exudate Type Serosanguineous -Wound Margin Distinct, Outline Attached -Granulation Amt Medium (34-66%) -Granulation Quality Red -Slough/Fibrin Yes -Necrosis Amt Medium (34-66%) -Necrotic Tissue Type Adherent Slough -Texture (Josephine-wound Skin Appearance) Assessed, Scarring -Moisture (Josephine-wound Skin Appearance Assessed ) -Color (Josephine-wound Skin Appearance) Assessed -Temperature (Josephine-wound Skin No Abnormality Appearance) (Pt Warm) -Tenderness on Palpation (Josephine-wound No Skin Appearance) -Ulcer Cleansing soapy water -Foul Odor after Cleansing No -Anesthetic Used 4% Lidocaine Solution WC - Nurse 2 - General Ulcer CM Notes Start: 11/09/20 13:28 Freq: Status: Active Protocol: Activity Type Activity Date Activity User E-Sign Co-Sign Detail Recorded Client Recorded Date Recorded By Document 11/09/20 13:50 [id number] 11/09/20 14:01 JF 11/09/20 13:50 Wound Center Nurse 2 [Procedure/Treatment] -Time 13:50 -Correct Patient Yes -Correct Side, Site, Position Yes -Correct Procedure Yes -Procedure Performed Yes -Type of Procedure Debridement -Clinical Debridement Subcutaneous -Tissue Removed Subcutaneous -Post Debridement (cm) - Length 29 -Post Debridement (cm) - Width 20 -Post Debridement (cm) - Depth 0.3 -Total Square (Post) (cm) 580 -Area of Debridement (cm) - Length 29 -Area of Debridement (cm) - Width 20 -Total Square (Area) (cm) 580 -Tunneling No -Undermining/Tunneling No -Circular Undermining No -Wound/Ulcer Outcome Not Healed -Ulcer Cleansing Rinsed/ Irrigated with Saline -Foul Odor after Cleansing No -Bioengineered Tissue No -Bleeding Controlled with Pressure -Offloading No -Treatment Response Procedure Tolerated Well -Debridement - Subq, 1st 20sq cm Yes -Debridement, SubQ, ea addt'l 20sq cm 28 or part thereof [See Physician Procedure note for Specifics] Pain Scale: 0-10 Numeric [Pain] -Is Patient Pain Free? Yes - Nurse 3 - General Ulcer D/C NN Start: 11/09/20 13:28 Freq: Status: Active Protocol: Activity Type Activity Date Activity User E-Sign Co-Sign Detail Recorded Client Recorded Date Recorded By Document 11/09/20 14:05 OK [id number] 11/09/20 14:06 MS 11/09/20 14:05 Wound Care Nurse 3 [Wound Dressing] #9 left medial groin/thigh -Ulcer Cleansing soap and water -Foul Odor after Cleansing No -Other Dressing wet to dry,abd -Primary Dressing Covered/Secured Dry Gauze, with Secured with Tape WC - Visit Discharge [Visit Discharge Information] -Discharge Condition Stable -Ambulatory Status Ambulatory -Medication Reconcilliation completed No & provided to patient/care provider -Clinical Summary of Care Provided Yes Musculoskeletal: No Tenderness to Palpation of Joints or Extremities Neurological: Cranial nerves II-XII grossly intact Psych/Mental Status: Normal Affect, Appropriate Debridement Note Post-Debridement Measurements/Treatment - Nurse 2 - General Ulcer CM Notes Start: 11/09/20 13:28 Freq: Status: Active Protocol: Activity Type Activity Date Activity User E-Sign Co-Sign Detail Recorded Client Recorded Date Recorded By Document 11/09/20 13:50 [id number] 11/09/20 14:01 JOHN 11/09/20 13:50 Wound Center Nurse 2 #9 left medial groin/thigh -Time 13:50 -Correct Patient Yes -Correct Side, Site, Position Yes -Correct Procedure Yes -Procedure Performed Yes -Type of Procedure Debridement -Clinical Debridement Subcutaneous -Tissue Removed Subcutaneous -Post Debridement (cm) - Length 29 -Post Debridement (cm) - Width 20 -Post Debridement (cm) - Depth 0.3 -Total Square (Post) (cm) 580 -Area of Debridement (cm) - Length 29 -Area of Debridement (cm) - Width 20 -Total Square (Area) (cm) 580 -Tunneling No -Undermining/Tunneling No -Circular Undermining No -Wound/Ulcer Outcome Not Healed -Ulcer Cleansing Rinsed/ Irrigated with Saline -Foul Odor after Cleansing No -Bioengineered Tissue No -Bleeding Controlled with Pressure -Offloading No -Treatment Response Procedure Tolerated Well -Debridement - Subq, 1st 20sq cm Yes -Debridement, SubQ, ea addt'l 20sq cm 28 or part thereof Pain Scale: 0-10 Numeric Is Patient Pain Free? Yes - Nurse 3 - General Ulcer D/C NN Start: 11/09/20 13:28 Freq: Status: Active Protocol: Activity Type Activity Date Activity User E-Sign Co-Sign Detail Recorded Client Recorded Date Recorded By Document 11/09/20 14:05 OK [id number] 11/09/20 14:06 MS 11/09/20 14:05 Wound Care Nurse 3 #9 left medial groin/thigh -Ulcer Cleansing soap and water -Foul Odor after Cleansing No -Other Dressing wet to dry,abd -Primary Dressing Covered/Secured with Dry Gauze, Secured with Tape WC - Visit Discharge Discharge Condition Stable Ambulatory Status Ambulatory Medication Reconcilliation completed & No provided to patient/care provider Clinical Summary of Care Provided Yes Wound debrided: medial leg ulcer Laterality: Left Type of Debridement: Excisional debridement Anesthesia Used: 5% Lidocaine Gel Depth: Down to and including healthy tissue, in the subcutaneous layer Percentage of wound debrided: 100 Instrument Used: 7mm curette Tissue Removed: Subcutaneous tissue and slough Severity: Fat Layer Exposed Amount of bleeding with debridement: Moderate Bleeding Controlled with: Pressure, Compression and gauze Patient tolerated procedure well Assessment/Plan Active Problems (Last Reviewed 08/21/20 @ 20:[address] Xavi Kinney MD) Chronic ulcer of left thigh with fat layer exposed (Chronic) Acute postoperative anemia due to expected blood loss (Acute) Former smoker (Chronic) History of bariatric surgery (Chronic) gastric sleeve in May, in [place] Excessive and redundant skin and subcutaneous tissue (Chronic) bilateral medial thighs Chronic acquired lymphedema (Chronic) Morbid obesity (Chronic) Assessment: 1. Redundant skin and subcutaneous tissue bilateral medial and posterior thighs, worse on the left. 2. Bilateral medial thigh intertrigo, worse on the left. 3. Excessive body weight loss from bariatric surgery (250 lbs). 4. History of bariatric surgery. 5. Obesity. 6. Lymphedema. 7. Former smoker. Plan: Wound care - Dakin's moistened Kerlix covered by ABDs daily. GRACIA wrap for compression. Encouraged increase protein and fluid intake due to the size and the amount of drainage from his wound. Follow up in one week. [id number]: [id number] Global Visit
[2020-11-16 13:44] VITALS: BP 158/75; PULSE 59; RESP 18; TEMP 36.4; BMI 52.0
--- NOTE | 2020-11-16 15:25 | PN.PCM_ITS ---
(1) Chronic ulcer of left thigh with fat layer exposed Status: Chronic Code(s): L97.122 - Non-pressure chronic ulcer of left thigh with fat layer exposed (2) Acute postoperative anemia due to expected blood loss Status: Acute Code(s): D62 - Acute posthemorrhagic anemia (3) Excessive and redundant skin and subcutaneous tissue Status: Chronic Code(s): L98.7 - Excessive and redundant skin and subcutaneous tissue Comment: bilateral medial thighs (4) Chronic acquired lymphedema Status: Chronic Code(s): I89.0 - Lymphedema, not elsewhere classified (5) Morbid obesity Status: Chronic Code(s): E66.01 - Morbid (severe) obesity due to excess calories (6) History of bariatric surgery Status: Chronic Code(s): Z98.84 - Bariatric surgery status Comment: gastric sleeve in May, in [place] (7) Former smoker Status: Chronic Code(s): Z87.891 - Personal history of nicotine dependence Type of Wound Date of Service: 11/16/20 Chief Complaint: Left medial thigh wound after surgery on 09/22/20 for Excision redundant skin and subcutaneous tissue left medial and posterior thigh with dermolipectomy. History of Wound: 45 year old man presents with areas of redundant skin and subcutaneous tissue in his bilateral medial thighs and abdominal panniculus with associated panniculitis. There is abdominal wall skin crease intertrigo and bilateral medial thigh intertrigo for which he uses powders for relief. This excess skin and subcutaneous tissue was the result of bariatric surgery done in [place] in May,. He lost about 250 lbs and his current weight is about 440 lbs. He has a history of lower extremity lymphedema resulting from the extreme body weight and has persistent dependent edema in his medial thighs which aggravates his symptomatology. He denies trauma. He denies fever. Both areas bother him but the medial thighs are his initial priority as he has trouble with ambulating. We have received medical approval from his insurance company for his thigh surgery. Surgery 09/22/20 - Excision redundant skin and subcutaneous tissue left medial and posterior thigh with dermolipectomy. After surgery attempted to use a wound VAC but the size of the wound is too large and would not be able to keep a seal in the left groin by the scrotum. Wound care - Dakin's moistened gauze twice daily topped by ABDs and a double DESMOND wrap for compression. He was using saline moistened gauze while at [facility]. He came home from [facility] a few weeks ago. Today he denies fever and chills and states his appetite is good. Progress of Wound: Improved. - Physical Exam Vital Signs Temp Pulse Resp BP 97.6 F L 59 L 18 158/75 H 11/16/20 13:44 11/16/20 13:44 11/16/20 13:44 11/16/20 13:44 General: Alert, Oriented x3, Cooperative HEENT: Atraumatic Oral: Moist Mucosa Lungs: Normal air movement Cardiovascular: Regular rate Abdomen: Obese Extremities: Capillary Refill Less than 3 Seconds, Edema Skin: Ulcer/ Wound - Left medial thigh ulcer is beefy pink. There is much less biofilm present this week. Wound Measurements and Assessment WC - Nurse 1 - General Ulcer Measurement Start: 11/09/20 13:28 Freq: Status: Active Protocol: Activity Type Activity Date Activity User E-Sign Co-Sign Detail Recorded Client Recorded Date Recorded By Document 11/16/20 13:44 [facility] [id number] 11/16/20 13:53 [facility] 11/16/20 13:44 Wound Center Nurse 1 [Ulcer Assessment] #9 left medial groin/thigh -Combined with other wound No -Current Size (cm) - Length 28.5 -Current Size (cm) - Width 15.3 -Current Size (cm) - Depth 0.1 -Total Square Cm 436.05 -Photo Taken No -Epithelialization Small 1-33% -Tunneling No -Undermining/Tunneling No -Circular Undermining No -Exudate Amt Large -Exudate Type Serosanguineous -Wound Margin Distinct, Outline Attached -Granulation Amt Medium (34-66%) -Granulation Quality Red -Slough/Fibrin Yes -Necrosis Amt Medium (34-66%) -Necrotic Tissue Type Adherent Slough -Texture (Josephine-wound Skin Appearance) Assessed, Scarring -Moisture (Josephine-wound Skin Appearance Assessed ) -Color (Josephine-wound Skin Appearance) Assessed -Temperature (Josehpine-wound Skin No Abnormality Appearance) (Pt Warm) -Tenderness on Palpation (Josephine-wound No Skin Appearance) -Ulcer Cleansing soapy water -Foul Odor after Cleansing No -Anesthetic Used 4% Lidocaine Solution WC - Nurse 2 - General Ulcer CM Notes Start: 11/09/20 13:28 Freq: Status: Active Protocol: Activity Type Activity Date Activity User E-Sign Co-Sign Detail Recorded Client Recorded Date Recorded By Document 11/16/20 14:05 [id number] 11/16/20 14:26 JOHN 11/16/20 14:05 Wound Center Nurse 2 [Procedure/Treatment] -Time 14:05 -Correct Patient Yes -Correct Side, Site, Position Yes -Correct Procedure Yes -Procedure Performed Yes -Type of Procedure Debridement -Clinical Debridement Subcutaneous -Tissue Removed Subcutaneous -Post Debridement (cm) - Length 30 -Post Debridement (cm) - Width 20 -Post Debridement (cm) - Depth 0.1 -Total Square (Post) (cm) 600 -Area of Debridement (cm) - Length 30 -Area of Debridement (cm) - Width 20 -Total Square (Area) (cm) 600 -Tunneling No -Undermining/Tunneling No -Circular Undermining No -Wound/Ulcer Outcome Not Healed -Ulcer Cleansing Rinsed/ Irrigated with Saline -Foul Odor after Cleansing No -Bioengineered Tissue No -Bleeding Controlled with Pressure -Offloading No -Treatment Response Procedure Tolerated Well -Debridement - Subq, 1st 20sq cm Yes -Debridement, SubQ, ea addt'l 20sq cm 11 or part thereof [See Physician Procedure note for Specifics] Pain Scale: 0-10 Numeric [Pain] -Is Patient Pain Free? Yes - Nurse 3 - General Ulcer D/C NN Start: 11/09/20 13:28 Freq: Status: Active Protocol: Activity Type Activity Date Activity User E-Sign Co-Sign Detail Recorded Client Recorded Date Recorded By Document 11/16/20 14:33 [facility] [id number] 11/16/20 14:34 [facility] 11/16/20 14:33 Wound Care Nurse 3 [Wound Dressing] #9 left medial groin/thigh -Ulcer Cleansing water -Foul Odor after Cleansing No -Other Dressing moist to dry drsg -Primary Dressing Covered/Secured Secured with with Tape,Other -Other Covering abd [Compression Applied] Left -Compression Wrap Desmond Wrap [Post Procedure Tolerated] -Treatment Response Procedure Tolerated Well Pain Scale: 0-10 Numeric [Pain] -Is Patient Pain Free? Yes - Visit Discharge [Visit Discharge Information] -Discharge Condition Stable -Ambulatory Status Ambulatory -Transportation Private Auto Musculoskeletal: No Tenderness to Palpation of Joints or Extremities Neurological: Cranial nerves II-XII grossly intact Psych/Mental Status: Normal Affect, Appropriate Debridement Note Post-Debridement Measurements/Treatment - Nurse 2 - General Ulcer CM Notes Start: 11/09/20 13:28 Freq: Status: Active Protocol: Activity Type Activity Date Activity User E-Sign Co-Sign Detail Recorded Client Recorded Date Recorded By Document 11/09/20 13:50 [id number] 11/09/20 14:01 Document 11/16/20 14:05 [id number] 11/16/20 14:26 11/09/20 11/16/20 13:50 14:05 Wound Center Nurse 2 #9 left medial groin/thigh -Time 13:50 14:05 -Correct Patient Yes Yes -Correct Side, Site, Position Yes Yes -Correct Procedure Yes Yes -Procedure Performed Yes Yes -Type of Procedure Debridement Debridement -Clinical Debridement Subcutaneous Subcutaneous -Tissue Removed Subcutaneous Subcutaneous -Post Debridement (cm) - Length 29 30 -Post Debridement (cm) - Width 20 20 -Post Debridement (cm) - Depth 0.3 0.1 -Total Square (Post) (cm) 580 600 -Area of Debridement (cm) - Length 29 30 -Area of Debridement (cm) - Width 20 20 -Total Square (Area) (cm) 580 600 -Tunneling No No -Undermining/Tunneling No No -Circular Undermining No No -Wound/Ulcer Outcome Not Healed Not Healed -Ulcer Cleansing Rinsed/ Rinsed/ Irrigated with Irrigated with Saline Saline -Foul Odor after Cleansing No No -Bioengineered Tissue No No -Bleeding Controlled with Pressure Pressure -Offloading No No -Treatment Response Procedure Procedure Tolerated Well Tolerated Well -Debridement - Subq, 1st 20sq cm Yes Yes -Debridement, SubQ, ea addt'l 20sq cm 28 11 or part thereof Pain Scale: 0-10 Numeric Is Patient Pain Free? Yes Yes - Nurse 3 - General Ulcer D/C NN Start: 11/09/20 13:28 Freq: Status: Active Protocol: Activity Type Activity Date Activity User E-Sign Co-Sign Detail Recorded Client Recorded Date Recorded By Document 11/09/20 14:05 SC [id number] 11/09/20 14:06 MS Document 11/16/20 14:33 [facility] [id number] 11/16/20 14:34 BMF 11/09/20 11/16/20 14:05 14:33 Wound Care Nurse 3 #9 left medial groin/thigh -Ulcer Cleansing soap and water water -Foul Odor after Cleansing No No -Other Dressing wet to dry,abd moist to dry drsg -Primary Dressing Covered/Secured with Dry Gauze, Secured with Secured with Tape,Other Tape -Other Covering abd Left -Compression Wrap Desmond Wrap Treatment Response Procedure Tolerated Well Pain Scale: 0-10 Numeric Is Patient Pain Free? Yes WC - Visit Discharge Discharge Condition Stable Stable Ambulatory Status Ambulatory Ambulatory Transportation Private Auto Medication Reconcilliation completed & No provided to patient/care provider Clinical Summary of Care Provided Yes Wound debrided: Medial thigh ulcer Laterality: Left Type of Debridement: Excisional debridement Anesthesia Used: 4% Lidocaine Solution, 5% Lidocaine Gel, Cetacaine Depth: Down to and including healthy tissue, in the subcutaneous layer Percentage of wound debrided: 100 Instrument Used: 7mm curette Tissue Removed: Subcutaneous tissue and slough Severity: Fat Layer Exposed Amount of bleeding with debridement: Moderate Bleeding Controlled with: Pressure, Compression and gauze Patient tolerated procedure well Assessment/Plan Active Problems (Last Reviewed 08/21/20 @ 20:[address] Xavi Kinney MD) Chronic ulcer of left thigh with fat layer exposed (Chronic) Acute postoperative anemia due to expected blood loss (Acute) Former smoker (Chronic) History of bariatric surgery (Chronic) gastric sleeve in May, in [place] Excessive and redundant skin and subcutaneous tissue (Chronic) bilateral medial thighs Chronic acquired lymphedema (Chronic) Morbid obesity (Chronic) Assessment: 1. Redundant skin and subcutaneous tissue bilateral medial and p osterior thighs, worse on the left. 2. Bilateral medial thigh intertrigo, worse on the left. 3. Excessive body weight loss from bariatric surgery (250 lbs). 4. History of bariatric surgery. 5. Obesity. 6. Lymphedema. 7. Former smoker. Plan: Wound care - Dakin's moistened Kerlix covered by ABDs daily. DESMOND wrap for compression. Encouraged increase protein and fluid intake due to the size and the amount of drainage from his wound. Patient requesting that we cancel home health. He states he is able to change his dressing himself. Follow up in one week. [id number]: [id number] Global Visit
[2020-11-23 13:38] VITALS: BP 138/72; PULSE 66; RESP 18; TEMP 36.1; BMI 52.0
--- NOTE | 2020-11-23 14:46 | PCM.WC.PN ---
(1) Chronic ulcer of left thigh with fat layer exposed Status: Chronic Code(s): L97.122 - Non-pressure chronic ulcer of left thigh with fat layer exposed (2) Acute postoperative anemia due to expected blood loss Status: Acute Code(s): D62 - Acute posthemorrhagic anemia (3) Excessive and redundant skin and subcutaneous tissue Status: Chronic Code(s): L98.7 - Excessive and redundant skin and subcutaneous tissue Comment: bilateral medial thighs (4) Chronic acquired lymphedema Status: Chronic Code(s): I89.0 - Lymphedema, not elsewhere classified (5) Morbid obesity Status: Chronic Code(s): E66.01 - Morbid (severe) obesity due to excess calories (6) History of bariatric surgery Status: Chronic Code(s): Z98.84 - Bariatric surgery status Comment: gastric sleeve in May, in [place] (7) Former smoker Status: Chronic Code(s): Z87.891 - Personal history of nicotine dependence Type of Wound Date of Service: 11/23/20 Chief Complaint: Left medial thigh wound after surgery on 09/22/20 for Excision redundant skin and subcutaneous tissue left medial and posterior thigh with dermolipectomy. History of Wound: 45 year old man presents with areas of redundant skin and subcutaneous tissue in his bilateral medial thighs and abdominal panniculus with associated panniculitis. There is abdominal wall skin crease intertrigo and bilateral medial thigh intertrigo for which he uses powders for relief. This excess skin and subcutaneous tissue was the result of bariatric surgery done in [place] in May,. He lost about 250 lbs and his current weight is about 440 lbs. He has a history of lower extremity lymphedema resulting from the extreme body weight and has persistent dependent edema in his medial thighs which aggravates his symptomatology. He denies trauma. He denies fever. Both areas bother him but the medial thighs are his initial priority as he has trouble with ambulating. We have received medical approval from his insurance company for his thigh surgery. Surgery 09/22/20 - Excision redundant skin and subcutaneous tissue left medial and posterior thigh with dermolipectomy. After surgery attempted to use a wound VAC but the size of the wound is too large and would not be able to keep a seal in the left groin by the scrotum. Wound care - Dakin's moistened gauze twice daily topped by ABDs and a double DESMOND wrap for compression. He came home from [facility] a few weeks ago. Today he denies fever and chills and states his appetite is good. Progress of Wound: Improved. - Physical Exam Vital Signs Temp Pulse Resp BP 96.9 F L 66 18 138/72 H 11/23/20 13:38 11/23/20 13:38 11/23/20 13:38 11/23/20 13:38 General: Alert, Oriented x3, Cooperative HEENT: Atraumatic Oral: Moist Mucosa Lungs: Normal air movement Cardiovascular: Regular rate Extremities: Capillary Refill Less than 3 Seconds, Edema - Bilateral lower extremity edema with lymphadema which is worse on the left than the right lower extremity. Skin: Ulcer/ Wound - Left medial thigh ulcer is beefy pink. He is a decrease in biofilm since using the Dakin's on a daily basis. Wound Measurements and Assessment WC - Nurse 1 - General Ulcer Measurement Start: 11/09/20 13:28 Freq: Status: Active Protocol: Activity Type Activity Date Activity User E-Sign Co-Sign Detail Recorded Client Recorded Date Recorded By Document 11/23/20 13:38 RB [id number] 11/23/20 13:49 RB 11/23/20 13:38 Wound Center Nurse 1 [Ulcer Assessment] #9 left medial groin/thigh -Combined with other wound No -Current Size (cm) - Length 30.2 -Current Size (cm) - Width 20.5 -Current Size (cm) - Depth 0.1 -Total Square Cm 619.10 -Tunneling No -Undermining/Tunneling No -Circular Undermining No -Exudate Amt Large -Exudate Type Serosanguineous -Wound Margin Distinct, Outline Attached -Granulation Amt Large (67-100%) -Granulation Quality Hyper- granulation, [place],Red -Slough/Fibrin Yes -Necrosis Amt Small (1-33%) -Necrotic Tissue Type Adherent Slough -Structure Exposed N/A -Texture (Josephine-wound Skin Appearance) Assessed, Scarring -Moisture (Josephine-wound Skin Appearance Assessed ) -Color (Josephine-wound Skin Appearance) Assessed -Temperature (Joesphine-wound Skin No Abnormality Appearance) (Pt Warm) -Tenderness on Palpation (Josephine-wound No Skin Appearance) -Ulcer Cleansing Wound Cleanser -Foul Odor after Cleansing No -Anesthetic Used 4% Lidocaine Solution - Nurse 2 - General Ulcer CM Notes Start: 11/09/20 13:28 Freq: Status: Active Protocol: Activity Type Activity Date Activity User E-Sign Co-Sign Detail Recorded Client Recorded Date Recorded By Document 11/23/20 13:57 JOHN [id number] 11/23/20 14:04 JOHN 11/23/20 13:57 Wound Center Nurse 2 [Procedure/Treatment] -Time 13:58 -Correct Patient Yes -Correct Side, Site, Position Yes -Correct Procedure Yes -Procedure Performed Yes -Type of Procedure Debridement -Clinical Debridement Subcutaneous -Tissue Removed Subcutaneous -Post Debridement (cm) - Length 28.7 -Post Debridement (cm) - Width 16 -Post Debridement (cm) - Depth 0.1 -Total Square (Post) (cm) 459.2 -Area of Debridement (cm) - Length 28.7 -Area of Debridement (cm) - Width 16 -Total Square (Area) (cm) 459.2 -Tunneling No -Undermining/Tunneling No -Circular Undermining No -Wound/Ulcer Outcome Not Healed -Ulcer Cleansing Rinsed/ Irrigated with Saline -Foul Odor after Cleansing No -Bioengineered Tissue No -Bleeding Controlled with Pressure -Offloading No -Treatment Response Procedure Tolerated Well -Debridement - Subq, 1st 20sq cm Yes -Debridement, SubQ, ea addt'l 20sq cm 11 or part thereof [See Physician Procedure note for Specifics] Pain Scale: 0-10 Numeric [Pain] -Is Patient Pain Free? Yes - Nurse 3 - General Ulcer D/C NN Start: 11/09/20 13:28 Freq: Status: Active Protocol: Activity Type Activity Date Activity User E-Sign Co-Sign Detail Recorded Client Recorded Date Recorded By Document 11/23/20 14:17 RB [id number] 11/23/20 14:18 RB 11/23/20 14:17 Wound Care Nurse 3 [Wound Dressing] #9 left medial groin/thigh -Other Dressing DAKINS MOISTENED GAUZE , ABD'S SECURED WITH DESMOND Pain Scale: 0-10 Numeric [Pain] -Is Patient Pain Free? Yes - Visit Discharge [Visit Discharge Information] -Discharge Condition Stable -Ambulatory Status Ambulatory -Transportation Private Auto -Medication Reconcilliation completed No & provided to patient/care provider -Clinical Summary of Care Provided Yes Musculoskeletal: No Tenderness to Palpation of Joints or Extremities Neurological: Cranial nerves II-XII grossly intact Psych/Mental Status: Normal Affect, Appropriate Debridement Note Post-Debridement Measurements/Treatment - Nurse 2 - General Ulcer CM Notes Start: 11/09/20 13:28 Freq: Status: Active Protocol: Activity Type Activity Date Activity User E-Sign Co-Sign Detail Recorded Client Recorded Date Recorded By Document 11/09/20 13:50 [id number] 11/09/20 14:01 Document 11/16/20 14:05 [id number] 11/16/20 14:26 Document 11/23/20 13:57 [id number] 11/23/20 14:04 11/09/20 11/16/20 11/23/20 13:50 14:05 13:57 Wound Center Nurse 2 #9 left medial groin/thigh -Time 13:50 14:05 13:58 -Correct Patient Yes Yes Yes -Correct Side, Site, Position Yes Yes Yes -Correct Procedure Yes Yes Yes -Procedure Performed Yes Yes Yes -Type of Procedure Debridement Debridement Debridement -Clinical Debridement Subcutaneous Subcutaneous Subcutaneous -Tissue Removed Subcutaneous Subcutaneous Subcutaneous -Post Debridement (cm) - Length 29 30 28.7 -Post Debridement (cm) - Width 20 20 16 -Post Debridement (cm) - Depth 0.3 0.1 0.1 -Total Square (Post) (cm) 580 600 459.2 -Area of Debridement (cm) - Length 29 30 28.7 -Area of Debridement (cm) - Width 20 20 16 -Total Square (Area) (cm) 580 600 459.2 -Tunneling No No No -Undermining/Tunneling No No No -Circular Undermining No No No -Wound/Ulcer Outcome Not Healed Not Healed Not Healed -Ulcer Cleansing Rinsed/ Rinsed/ Rinsed/ Irrigated with Irrigated with Irrigated with Saline Saline Saline -Foul Odor after Cleansing No No No -Bioengineered Tissue No No No -Bleeding Controlled with Pressure Pressure Pressure -Offloading No No No -Treatment Response Procedure Procedure Procedure Tolerated Well Tolerated Well Tolerated Well -Debridement - Subq, 1st 20sq cm Yes Yes Yes -Debridement, SubQ, ea addt'l 20sq cm 28 11 11 or part thereof Pain Scale: 0-10 Numeric Is Patient Pain Free? Yes Yes Yes ACOSTA - Nurse 3 - General Ulcer D/C NN Start: 11/09/20 13:28 Freq: Status: Active Protocol: Activity Type Activity Date Activity User E-Sign Co-Sign Detail Recorded Client Recorded Date Recorded By Document 11/09/20 14:05 MS [id number] 11/09/20 14:06 MS Document 11/16/20 14:33 [facility] [id number] 11/16/20 14:34 BM Document 11/23/20 14:17 RB [id number] 11/23/20 14:18 RB 11/09/20 11/16/20 11/23/20 14:05 14:33 14:17 Wound Care Nurse 3 #9 left medial groin/thigh -Ulcer Cleansing soap and water water -Foul Odor after Cleansing No No -Other Dressing wet to dry,abd moist to dry DAKINS drsg MOISTENED GAUZE , ABD'S SECURED WITH DESMOND -Primary Dressing Covered/Secured with Dry Gauze, Secured with Secured with Tape,Other Tape -Other Covering abd Left -Compression Wrap Desmond Wrap Treatment Response Procedure Tolerated Well Pain Scale: 0-10 Numeric Is Patient Pain Free? Yes Yes WC - Visit Discharge Discharge Condition Stable Stable Stable Ambulatory Status Ambulatory Ambulatory Ambulatory Transportation Private Auto Private Auto Medication Reconcilliation completed & No No provided to patient/care provider Clinical Summary of Care Provided Yes Yes Wound debrided: Medial thigh ulcer Laterality: Left Type of Debridement: Excisional debridement Anesthesia Used: 5% Lidocaine Gel Depth: in the subcutaneous layer Percentage of wound debrided: 100 Instrument Used: 7mm curette Tissue Removed: Subcutaneous tissue and slough Severity: Fat Layer Exposed Amount of bleeding with debridement: Moderate Bleeding Controlled with: Pressure, Compression and gauze Patient tolerated procedure well Assessment/Plan Active Problems (Last Reviewed 08/21/20 @ 20:[address] Xavi Kinney MD) Chronic ulcer of left thigh with fat layer exposed (Chronic) Acute postoperative anemia due to expected blood loss (Acute) Former smoker (Chronic) History of bariatric surgery (Chronic) gastric sleeve in May, in [place] Excessive and redundant skin and subcutaneous tissue (Chronic) bilateral medial thighs Chronic acquired lymphedema (Chronic) Morbid obesity (Chronic) Assessment: 1. Redundant skin and subcutaneous tissue bilateral medial and posterior thighs, worse on the left. 2. Bilateral medial thigh intertrigo, worse on the left. 3. Excessive body weight loss from bariatric surgery (250 lbs). 4. History of bariatric surgery. 5. Obesity. 6. Lymphedema. 7. Former smoker. Plan: Wound care - Dakin's moistened Kerlix covered by ABDs daily. DESMOND wrap for compression. Encouraged increase protein and fluid intake due to the size and the amount of drainage from his wound. Patient requesting that we cancel home health. He states he is able to change his dressing himself. Follow up in one week. [id number]: [id number] Global Visit
[2020-11-30 13:57] VITALS: RESP 16; TEMP 36.4; BMI 52.0
--- NOTE | 2020-11-30 15:42 | PN.PCM_ITS ---
(1) Chronic ulcer of left thigh with fat layer exposed Status: Chronic Code(s): L97.122 - Non-pressure chronic ulcer of left thigh with fat layer exposed (2) Acute postoperative anemia due to expected blood loss Status: Acute Code(s): D62 - Acute posthemorrhagic anemia (3) Excessive and redundant skin and subcutaneous tissue Status: Chronic Code(s): L98.7 - Excessive and redundant skin and subcutaneous tissue Comment: bilateral medial thighs (4) Chronic acquired lymphedema Status: Chronic Code(s): I89.0 - Lymphedema, not elsewhere classified (5) Morbid obesity Status: Chronic Code(s): E66.01 - Morbid (severe) obesity due to excess calories (6) History of bariatric surgery Status: Chronic Code(s): Z98.84 - Bariatric surgery status Comment: gastric sleeve in May, in [place] (7) Former smoker Status: Chronic Code(s): Z87.891 - Personal history of nicotine dependence Type of Wound Date of Service: 11/30/20 Chief Complaint: Left medial thigh wound after surgery on 09/22/20 for Excision redundant skin and subcutaneous tissue left medial and posterior thigh with dermolipectomy. History of Wound: 45 year old man presents with areas of redundant skin and subcutaneous tissue in his bilateral medial thighs and abdominal panniculus with associated panniculitis. There is abdominal wall skin crease intertrigo and bilateral medial thigh intertrigo for which he uses powders for relief. This excess skin and subcutaneous tissue was the result of bariatric surgery done in [place] in May,. He lost about 250 lbs and his current weight is about 440 lbs. He has a history of lower extremity lymphedema resulting from the extreme body weight and has persistent dependent edema in his medial thighs which aggravates his symptomatology. He denies trauma. He denies fever. Both areas bother him but the medial thighs are his initial priority as he has trouble with ambulating. We have received medical approval from his insurance company for his thigh surgery. Surgery 09/22/20 - Excision redundant skin and subcutaneous tissue left medial and posterior thigh with dermolipectomy. After surgery attempted to use a wound VAC but the size of the wound is too large and would not be able to keep a seal in the left groin by the scrotum. Wound care - Dakin's moistened gauze twice daily topped by ABDs and a double DESMOND wrap for compression. He came home from [facility] a few weeks ago. Today he denies fever and chills and states his appetite is good. Progress of Wound: Improved. - Physical Exam Vital Signs Temp Pulse Resp BP 97.5 F L 66 16 138/72 H 11/30/20 13:57 11/23/20 13:38 11/30/20 13:57 11/23/20 13:38 General: Alert, Oriented x3, Cooperative HEENT: Atraumatic, Normocephalic Oral: Moist Mucosa Lungs: Normal air movement Cardiovascular: Regular rate Abdomen: Obese Extremities: Capillary Refill Less than 3 Seconds, Edema - Bilateral leg edema/lymphedema worse on the left leg than the right Skin: Ulcer/ Wound - Left medial thigh ulcer beefy pink. Decreasing in size. Wound Measurements and Assessment WC - Nurse 1 - General Ulcer Measurement Start: 11/09/20 13:28 Freq: Status: Active Protocol: Activity Type Activity Date Activity User E-Sign Co-Sign Detail Recorded Client Recorded Date Recorded By Document 11/30/20 13:57 [facility] [id number] 11/30/20 14:01 [facility] 11/30/20 13:57 Wound Center Nurse 1 [Ulcer Assessment] #9 left medial groin/thigh -Combined with other wound No -Current Size (cm) - Length 27.5 -Current Size (cm) - Width 18.5 -Current Size (cm) - Depth 0.1 -Total Square Cm 508.75 -Photo Taken No -Epithelialization Small 1-33% -Tunneling No -Undermining/Tunneling No -Circular Undermining No -Exudate Amt Large -Exudate Type Serosanguineous -Wound Margin Distinct, Outline Attached -Granulation Amt Large (67-100%) -Granulation Quality Red -Slough/Fibrin Yes -Necrosis Amt Small (1-33%) -Necrotic Tissue Type Adherent Slough -Texture (Josephine-wound Skin Appearance) Assessed, Scarring -Moisture (Josephine-wound Skin Appearance Assessed ) -Color (Josephine-wound Skin Appearance) Assessed -Temperature (Josephine-wound Skin No Abnormality Appearance) (Pt Warm) -Tenderness on Palpation (Josephine-wound No Skin Appearance) -Ulcer Cleansing soapy water -Foul Odor after Cleansing No -Anesthetic Used 4% Lidocaine Solution WC - Nurse 2 - General Ulcer CM Notes Start: 11/09/20 13:28 Freq: Status: Active Protocol: Activity Type Activity Date Activity User E-Sign Co-Sign Detail Recorded Client Recorded Date Recorded By Document 11/30/20 14:26 [id number] 11/30/20 14:33 11/30/20 14:26 Wound Center Nurse 2 [Procedure/Treatment] -Time 14:27 -Correct Patient Yes -Correct Side, Site, Position Yes -Correct Procedure Yes -Procedure Performed Yes -Type of Procedure Debridement -Clinical Debridement Subcutaneous -Tissue Removed Subcutaneous -Post Debridement (cm) - Length 27 -Post Debridement (cm) - Width 15 -Post Debridement (cm) - Depth 0.1 -Total Square (Post) (cm) 405 -Area of Debridement (cm) - Length 27 -Area of Debridement (cm) - Width 15 -Total Square (Area) (cm) 405 -Tunneling No -Undermining/Tunneling No -Circular Undermining No -Wound/Ulcer Outcome Not Healed -Ulcer Cleansing Rinsed/ Irrigated with Saline -Foul Odor after Cleansing No -Bioengineered Tissue No -Bleeding Controlled with Pressure -Offloading No -Treatment Response Procedure Tolerated Well -Debridement - Subq, 1st 20sq cm Yes -Debridement, SubQ, ea addt'l 20sq cm 11 or part thereof [See Physician Procedure note for Specifics] Pain Scale: 0-10 Numeric [Pain] -Is Patient Pain Free? Yes - Nurse 3 - General Ulcer D/C NN Start: 11/09/20 13:28 Freq: Status: Active Protocol: Activity Type Activity Date Activity User E-Sign Co-Sign Detail Recorded Client Recorded Date Recorded By Document 11/30/20 14:50 [facility] [id number] 11/30/20 14:51 [facility] 11/30/20 14:50 Wound Care Nurse 3 [Wound Dressing] #9 left medial groin/thigh -Ulcer Cleansing Rinsed/ Irrigated with Saline -Foul Odor after Cleansing No -Primary Dressing Applied Other -Other Dressing moist to dry -Primary Dressing Covered/Secured Secured with with Tape,Other -Other Covering abd [Compression Applied] Left -Compression Wrap Desmond Wrap [Post Procedure Tolerated] -Treatment Response Procedure Tolerated Well Pain Scale: 0-10 Numeric [Pain] -Is Patient Pain Free? Yes - Visit Discharge [Visit Discharge Information] -Discharge Condition Stable -Ambulatory Status Ambulatory -Transportation Private Auto Musculoskeletal: No Tenderness to Palpation of Joints or Extremities Neurological: Cranial nerves II-XII grossly intact Psych/Mental Status: Normal Affect, Appropriate Debridement Note Post-Debridement Measurements/Treatment WC - Nurse 2 - General Ulcer CM Notes Start: 11/09/20 13:28 Freq: Status: Active Protocol: Activity Type Activity Date Activity User E-Sign Co-Sign Detail Recorded Client Recorded Date Recorded By Document 11/09/20 13:50 [id number] 11/09/20 14:01 Document 11/16/20 14:05 [id number] 11/16/20 14:26 Document 11/23/20 13:57 [id number] 11/23/20 14:04 Document 11/30/20 14:26 [id number] 11/30/20 14:33 11/09/20 11/16/20 11/23/20 13:50 14:05 13:57 Wound Center Nurse 2 #9 left medial groin/thigh -Time 13:50 14:05 13:58 -Correct Patient Yes Yes Yes -Correct Side, Site, Position Yes Yes Yes -Correct Procedure Yes Yes Yes -Procedure Performed Yes Yes Yes -Type of Procedure Debridement Debridement Debridement -Clinical Debridement Subcutaneous Subcutaneous Subcutaneous -Tissue Removed Subcutaneous Subcutaneous Subcutaneous -Post Debridement (cm) - Length 29 30 28.7 -Post Debridement (cm) - Width 20 20 16 -Post Debridement (cm) - Depth 0.3 0.1 0.1 -Total Square (Post) (cm) 580 600 459.2 -Area of Debridement (cm) - Length 29 30 28.7 -Area of Debridement (cm) - Width 20 20 16 -Total Square (Area) (cm) 580 600 459.2 -Tunneling No No No -Undermining/Tunneling No No No -Circular Undermining No No No -Wound/Ulcer Outcome Not Healed Not Healed Not Healed -Ulcer Cleansing Rinsed/ Rinsed/ Rinsed/ Irrigated with Irrigated with Irrigated with Saline Saline Saline -Foul Odor after Cleansing No No No -Bioengineered Tissue No No No -Bleeding Controlled with Pressure Pressure Pressure -Offloading No No No -Treatment Response Procedure Procedure Procedure Tolerated Well Tolerated Well Tolerated Well -Debridement - Subq, 1st 20sq cm Yes Yes Yes -Debridement, SubQ, ea addt'l 20sq cm 28 11 11 or part thereof Pain Scale: 0-10 Numeric Is Patient Pain Free? Yes Yes Yes 11/30/20 14:26 Wound Center Nurse 2 #9 left medial groin/thigh -Time 14:27 -Correct Patient Yes -Correct Side, Site, Position Yes -Correct Procedure Yes -Procedure Performed Yes -Type of Procedure Debridement -Clinical Debridement Subcutaneous -Tissue Removed Subcutaneous -Post Debridement (cm) - Length 27 -Post Debridement (cm) - Width 15 -Post Debridement (cm) - Depth 0.1 -Total Square (Post) (cm) 405 -Area of Debridement (cm) - Length 27 -Area of Debridement (cm) - Width 15 -Total Square (Area) (cm) 405 -Tunneling No -Undermining/Tunneling No -Circular Undermining No -Wound/Ulcer Outcome Not Healed -Ulcer Cleansing Rinsed/ Irrigated with Saline -Foul Odor after Cleansing No -Bioengineered Tissue No -Bleeding Controlled with Pressure -Offloading No -Treatment Response Procedure Tolerated Well -Debridement - Subq, 1st 20sq cm Yes -Debridement, SubQ, ea addt'l 20sq cm 11 or part thereof Pain Scale: 0-10 Numeric Is Patient Pain Free? Yes WC - Nurse 3 - General Ulcer D/C NN Start: 11/09/20 13:28 Freq: Status: Active Protocol: Activity Type Activity Date Activity User E-Sign Co-Sign Detail Recorded Client Recorded Date Recorded By Document 11/09/20 14:05 PA [id number] 11/09/20 14:06 MS Document 11/16/20 14:33 [facility] [id number] 11/16/20 14:34 [facility] Document 11/23/20 14:17 RB [id number] 11/23/20 14:18 RB Document 11/30/20 14:50 [facility] [id number] 11/30/20 14:51 [facility] 11/09/20 11/16/20 11/23/20 14:05 14:33 14:17 Wound Care Nurse 3 #9 left medial groin/thigh -Ulcer Cleansing soap and water water -Foul Odor after Cleansing No No -Primary Dressing Applied -Other Dressing wet to dry,abd moist to dry DAKINS drsg MOISTENED GAUZE , ABD'S SECURED WITH DESMOND -Primary Dressing Covered/Secured with Dry Gauze, Secured with Secured with Tape,Other Tape -Other Covering abd Left -Compression Wrap Desmond Wrap Treatment Response Procedure Tolerated Well Pain Scale: 0-10 Numeric Is Patient Pain Free? Yes Yes WC - Visit Discharge Discharge Condition Stable Stable Stable Ambulatory Status Ambulatory Ambulatory Ambulatory Transportation Private Auto Private Auto Medication Reconcilliation completed & No No provided to patient/care provider Clinical Summary of Care Provided Yes Yes 11/30/20 14:50 Wound Care Nurse 3 #9 left medial groin/thigh -Ulcer Cleansing Rinsed/ Irrigated with Saline -Foul Odor after Cleansing No -Primary Dressing Applied Other -Other Dressing moist to dry -Primary Dressing Covered/Secured with Secured with Tape,Other -Other Covering abd Left -Compression Wrap Desmond Wrap Treatment Response Procedure Tolerated Well Pain Scale: 0-10 Numeric Is Patient Pain Free? Yes WC - Visit Discharge Discharge Condition Stable Ambulatory Status Ambulatory Transportation Private Auto Medication Reconcilliation completed & provided to patient/care provider Clinical Summary of Care Provided Wound debrided: Medial thigh ulcer Laterality: Left Type of Debridement: Excisional debridement Anesthesia Used: 4% Lidocaine Solution, 5% Lidocaine Gel Depth: Down to and including healthy tissue, in the subcutaneous layer Percentage of wound debrided: 100 Instrument Used: 7mm curette Tissue Removed: Subcutaneous tissue and slough Severity: Fat Layer Exposed Amount of bleeding with debridement: Moderate Bleeding Controlled with: Pressure, Compression and gauze Patient tolerated procedure well Assessment/Plan Active Problems (Last Reviewed 08/21/20 @ 20:[address] Xavi Kinney MD) Chronic ulcer of left thigh with fat layer exposed (Chronic) Acute postoperative anemia due to expected blood loss (Acute) Former smoker (Chronic) History of bariatric surgery (Chronic) gastric sleeve in May, in [place] Excessive and redundant skin and subcutaneous tissue (Chronic) bilateral medial thighs Chronic acquired lymphedema (Chronic) Morbid obesity (Chronic) Assessment: 1. Redundant skin and subcutaneous tissue bilateral medial and posterior thighs, worse on the left. 2. Bilateral medial thigh intertrigo, worse on the left. 3. Excessive body weight loss from bariatric surgery (250 lbs). 4. History of bariatric surgery. 5. Obesity. 6. Lymphedema. 7. Former smoker. Plan: Wound care - Dakin's moistened Kerlix covered by ABDs daily. DESMOND wrap for compression. Will order a CBC to see about his postoperative anemia. He states he is taking iron still. Encouraged increase protein and fluid intake due to the size and the amount of drainage from his wound. Patient requesting that we cancel home health. He states he is able to change his dressing himself. Follow up in one week. [id number]: [id number] Global Visit
[2020-12-07 13:31] VITALS: BP 142/82; PULSE 67; RESP 16; TEMP 37.1; BMI 52.0
--- NOTE | 2020-12-07 14:04 | PN.PCM_ITS ---
(1) Chronic ulcer of left thigh with fat layer exposed Status: Chronic Code(s): L97.122 - Non-pressure chronic ulcer of left thigh with fat layer exposed (2) Acute postoperative anemia due to expected blood loss Status: Chronic Code(s): D62 - Acute posthemorrhagic anemia (3) Excessive and redundant skin and subcutaneous tissue Status: Chronic Code(s): L98.7 - Excessive and redundant skin and subcutaneous tissue Comment: bilateral medial thighs (4) Chronic acquired lymphedema Status: Chronic Code(s): I89.0 - Lymphedema, not elsewhere classified (5) Morbid obesity Status: Chronic Code(s): E66.01 - Morbid (severe) obesity due to excess calories (6) History of bariatric surgery Status: Chronic Code(s): Z98.84 - Bariatric surgery status Comment: gastric sleeve in May, in [place] [employer] (7) Former smoker Status: Chronic Code(s): Z87.891 - Personal history of nicotine dependence Type of Wound Date of Service: 12/07/20 Chief Complaint: Left medial thigh wound after surgery on 09/22/20 for Excision redundant skin and subcutaneous tissue left medial and posterior thigh with dermolipectomy. History of Wound: 45 year old man presents with areas of redundant skin and subcutaneous tissue in his bilateral medial thighs and abdominal panniculus with associated panniculitis. There is abdominal wall skin crease intertrigo and bilateral medial thigh intertrigo for which he uses powders for relief. This excess skin and subcutaneous tissue was the result of bariatric surgery done in [place] in May,. He lost about 250 lbs and his current weight is about 440 lbs. He has a history of lower extremity lymphedema resulting from the extreme body weight and has persistent dependent edema in his medial thighs which aggravates his symptomatology. He denies trauma. He denies fever. Both areas bother him but the medial thighs are his initial priority as he has trouble with ambulating. We have received medical approval from his insurance company for his thigh surgery. Surgery 09/22/20 - Excision redundant skin and subcutaneous tissue left medial and posterior thigh with dermolipectomy. After surgery attempted to use a wound VAC but the size of the wound is too large and would not be able to keep a seal in the left groin by the scrotum. Wound care - Dakin's moistened gauze daily topped by Roxane and a double DESMOND wrap for compression. He came home from SNF and is doing well at home. Today he denies fever and chills and states his appetite is good. Progress of Wound: Improved. - Physical Exam Vital Signs Temp Pulse Resp BP 98.7 F 67 16 142/82 H 12/07/20 13:31 12/07/20 13:31 12/07/20 13:31 12/07/20 13:31 General: Alert, Oriented x3, Cooperative HEENT: Atraumatic Oral: Moist Mucosa Lungs: Normal air movement Cardiovascular: Regular rate Abdomen: Obese Extremities: No edema, Capillary Refill Less than 3 Seconds Skin: Ulcer/ Wound - Left medial thigh ulcer. Beefy pink in color. Wound Measurements and Assessment WC - Nurse 1 - General Ulcer Measurement Start: 11/09/20 13:28 Freq: Status: Active Protocol: Activity Type Activity Date Activity User E-Sign Co-Sign Detail Recorded Client Recorded Date Recorded By Document 12/07/20 13:31 [facility] [id number] 12/07/20 13:37 [facility] 12/07/20 13:31 Wound Center Nurse 1 [Ulcer Assessment] #9 left medial groin/thigh -Combined with other wound No -Current Size (cm) - Length 26.8 -Current Size (cm) - Width 11.9 -Current Size (cm) - Depth 0.1 -Total Square Cm 318.92 -Photo Taken No -Epithelialization Small 1-33% -Tunneling No -Undermining/Tunneling No -Circular Undermining No -Exudate Amt Large -Exudate Type Serosanguineous -Wound Margin Distinct, Outline Attached -Granulation Amt Large (67-100%) -Granulation Quality Pale,Red -Slough/Fibrin Yes -Necrosis Amt Small (1-33%) -Necrotic Tissue Type Adherent Slough -Texture (Josephine-wound Skin Appearance) Assessed, Scarring -Moisture (Josephine-wound Skin Appearance Assessed ) -Color (Josephine-wound Skin Appearance) Assessed -Temperature (Josephine-wound Skin No Abnormality Appearance) (Pt Warm) -Tenderness on Palpation (Josephine-wound No Skin Appearance) -Ulcer Cleansing soapy water -Foul Odor after Cleansing No -Anesthetic Used 4% Lidocaine Solution WC - Nurse 2 - General Ulcer CM Notes Start: 11/09/20 13:28 Freq: Status: Active Protocol: Activity Type Activity Date Activity User E-Sign Co-Sign Detail Recorded Client Recorded Date Recorded By Document 12/07/20 13:47 JOHN [id number] 12/07/20 13:53 JOHN 12/07/20 13:47 Wound Center Nurse 2 [Procedure/Treatment] -Time 13:50 -Correct Patient Yes -Correct Side, Site, Position Yes -Correct Procedure Yes -Procedure Performed Yes -Type of Procedure Debridement -Clinical Debridement Subcutaneous -Tissue Removed Subcutaneous -Post Debridement (cm) - Length 25.7 -Post Debridement (cm) - Width 15 -Post Debridement (cm) - Depth 0.1 -Total Square (Post) (cm) 385.5 -Area of Debridement (cm) - Length 25.7 -Area of Debridement (cm) - Width 15 -Total Square (Area) (cm) 385.5 -Tunneling No -Undermining/Tunneling No -Circular Undermining No -Wound/Ulcer Outcome Not Healed -Ulcer Cleansing Rinsed/ Irrigated with Saline -Foul Odor after Cleansing No -Bioengineered Tissue No -Bleeding Controlled with Pressure -Offloading No -Treatment Response Procedure Tolerated Well -Debridement - Subq, 1st 20sq cm Yes -Debridement, SubQ, ea addt'l 20sq cm 11 or part thereof [See Physician Procedure note for Specifics] Pain Scale: 0-10 Numeric [Pain] -Is Patient Pain Free? Yes - Nurse 3 - General Ulcer D/C NN Start: 11/09/20 13:28 Freq: Status: Active Protocol: Activity Type Activity Date Activity User E-Sign Co-Sign Detail Recorded Client Recorded Date Recorded By Document 12/07/20 14:00 CHAVEZ [id number] 12/07/20 14:02 DL 12/07/20 14:00 Wound Care Nurse 3 [Wound Dressing] #9 left medial groin/thigh -Ulcer Cleansing Wound Cleanser -Foul Odor after Cleansing No -Other Dressing moist gauze -Primary Dressing Covered/Secured Dry Gauze, with Secured with Tape [Compression Applied] Left -Other desmond [Post Procedure Tolerated] -Treatment Response Procedure Tolerated Well Pain Scale: 0-10 Numeric [Pain] -Is Patient Pain Free? Yes - Visit Discharge [Visit Discharge Information] -Discharge Condition Stable -Ambulatory Status Ambulatory -Transportation Private Auto Musculoskeletal: No Tenderness to Palpation of Joints or Extremities Neurological: Cranial nerves II-XII grossly intact Psych/Mental Status: Normal Affect, Appropriate Debridement Note Post-Debridement Measurements/Treatment WC - Nurse 2 - General Ulcer CM Notes Start: 11/09/20 13:28 Freq: Status: Active Protocol: Activity Type Activity Date Activity User E-Sign Co-Sign Detail Recorded Client Recorded Date Recorded By Document 11/09/20 13:50 [id number] 11/09/20 14:01 Document 11/16/20 14:05 [id number] 11/16/20 14:26 Document 11/23/20 13:57 [id number] 11/23/20 14:04 Document 11/30/20 14:26 [id number] 11/30/20 14:33 Document 12/07/20 13:47 [id number] 12/07/20 13:53 11/09/20 11/16/20 11/23/20 13:50 14:05 13:57 Wound Center Nurse 2 #9 left medial groin/thigh -Time 13:50 14:05 13:58 -Correct Patient Yes Yes Yes -Correct Side, Site, Position Yes Yes Yes -Correct Procedure Yes Yes Yes -Procedure Performed Yes Yes Yes -Type of Procedure Debridement Debridement Debridement -Clinical Debridement Subcutaneous Subcutaneous Subcutaneous -Tissue Removed Subcutaneous Subcutaneous Subcutaneous -Post Debridement (cm) - Length 29 30 28.7 -Post Debridement (cm) - Width 20 20 16 -Post Debridement (cm) - Depth 0.3 0.1 0.1 -Total Square (Post) (cm) 580 600 459.2 -Area of Debridement (cm) - Length 29 30 28.7 -Area of Debridement (cm) - Width 20 20 16 -Total Square (Area) (cm) 580 600 459.2 -Tunneling No No No -Undermining/Tunneling No No No -Circular Undermining No No No -Wound/Ulcer Outcome Not Healed Not Healed Not Healed -Ulcer Cleansing Rinsed/ Rinsed/ Rinsed/ Irrigated with Irrigated with Irrigated with Saline Saline Saline -Foul Odor after Cleansing No No No -Bioengineered Tissue No No No -Bleeding Controlled with Pressure Pressure Pressure -Offloading No No No -Treatment Response Procedure Procedure Procedure Tolerated Well Tolerated Well Tolerated Well -Debridement - Subq, 1st 20sq cm Yes Yes Yes -Debridement, SubQ, ea addt'l 20sq cm 28 11 11 or part thereof Pain Scale: 0-10 Numeric Is Patient Pain Free? Yes Yes Yes 11/30/20 12/07/20 14:26 13:47 Wound Center Nurse 2 #9 left medial groin/thigh -Time 14:27 13:50 -Correct Patient Yes Yes -Correct Side, Site, Position Yes Yes -Correct Procedure Yes Yes -Procedure Performed Yes Yes -Type of Procedure Debridement Debridement -Clinical Debridement Subcutaneous Subcutaneous -Tissue Removed Subcutaneous Subcutaneous -Post Debridement (cm) - Length 27 25.7 -Post Debridement (cm) - Width 15 15 -Post Debridement (cm) - Depth 0.1 0.1 -Total Square (Post) (cm) 405 385.5 -Area of Debridement (cm) - Length 27 25.7 -Area of Debridement (cm) - Width 15 15 -Total Square (Area) (cm) 405 385.5 -Tunneling No No -Undermining/Tunneling No No -Circular Undermining No No -Wound/Ulcer Outcome Not Healed Not Healed -Ulcer Cleansing Rinsed/ Rinsed/ Irrigated with Irrigated with Saline Saline -Foul Odor after Cleansing No No -Bioengineered Tissue No No -Bleeding Controlled with Pressure Pressure -Offloading No No -Treatment Response Procedure Procedure Tolerated Well Tolerated Well -Debridement - Subq, 1st 20sq cm Yes Yes -Debridement, SubQ, ea addt'l 20sq cm 11 11 or part thereof Pain Scale: 0-10 Numeric Is Patient Pain Free? Yes Yes - Nurse 3 - General Ulcer D/C NN Start: 11/09/20 13:28 Freq: Status: Active Protocol: Activity Type Activity Date Activity User E-Sign Co-Sign Detail Recorded Client Recorded Date Recorded By Document 11/09/20 14:05 MS [id number] 11/09/20 14:06 MS Document 11/16/20 14:33 BMF [id number] 11/16/20 14:34 BMF Document 11/23/20 14:17 RB [id number] 11/23/20 14:18 RB Document 11/30/20 14:50 BMF [id number] 11/30/20 14:51 BMF Document 12/07/20 14:00 DL [id number] 12/07/20 14:02 DL 11/09/20 11/16/20 11/23/20 14:05 14:33 14:17 Wound Care Nurse 3 #9 left medial groin/thigh -Ulcer Cleansing soap and water water -Foul Odor after Cleansing No No -Primary Dressing Applied -Other Dressing wet to dry,abd moist to dry DAKINS drsg MOISTENED GAUZE , ABD'S SECURED WITH DESMOND -Primary Dressing Covered/Secured with Dry Gauze, Secured with Secured with Tape,Other Tape -Other Covering abd Left -Compression Wrap Desmond Wrap -Other Treatment Response Procedure Tolerated Well Pain Scale: 0-10 Numeric Is Patient Pain Free? Yes Yes WC - Visit Discharge Discharge Condition Stable Stable Stable Ambulatory Status Ambulatory Ambulatory Ambulatory Transportation Private [email or web address] Medication Reconcilliation completed & No No provided to patient/care provider Clinical Summary of Care Provided Yes Yes 11/30/20 12/07/20 14:50 14:00 Wound Care Nurse 3 #9 left medial groin/thigh -Ulcer Cleansing Rinsed/ Wound Cleanser Irrigated with Saline -Foul Odor after Cleansing No No -Primary Dressing Applied Other -Other Dressing moist to dry moist gauze -Primary Dressing Covered/Secured with Secured with Dry Gauze, Tape,Other Secured with Tape -Other Covering abd Left -Compression Wrap Desmond Wrap -Other desmond Treatment Response Procedure Procedure Tolerated Well Tolerated Well Pain Scale: 0-10 Numeric Is Patient Pain Free? Yes Yes WC - Visit Discharge Discharge Condition Stable Stable Ambulatory Status Ambulatory Ambulatory Transportation Private [email or web address] Medication Reconcilliation completed & provided to patient/care provider Clinical Summary of Care Provided Wound debrided: Medial thigh ulcer Laterality: Left Type of Debridement: Excisional debridement Anesthesia Used: 5% Lidocaine Gel Depth: Down to and including healthy tissue, in the subcutaneous layer Percentage of wound debrided: 100 Instrument Used: 7mm curette Tissue Removed: Subcutaneous tissue and slough Severity: Fat Layer Exposed Amount of bleeding with debridement: Moderate Bleeding Controlled with: Pressure, Compression and gauze Patient tolerated procedure well Assessment/Plan Active Problems (Last Reviewed 08/21/20 @ 20:[address] Xavi Kinney MD) Chronic ulcer of left thigh with fat layer exposed (Chronic) Acute postoperative anemia due to expected blood loss (Chronic) Former smoker (Chronic) History of bariatric surgery (Chronic) gastric sleeve in May, in [place] Excessive and redundant skin and subcutaneous tissue (Chronic) bilateral medial thighs Chronic acquired lymphedema (Chronic) Morbid obesity (Chronic) Assessment: 1. Redundant skin and subcutaneous tissue bilateral medial and posterior thighs, worse on the left. 2. Bilateral medial thigh intertrigo, worse on the left. 3. Excessive body weight loss from bariatric surgery (250 lbs). 4. History of bariatric surgery. 5. Obesity. 6. Lymphedema. 7. Former smoker. Plan: Wound care - Dakin's moistened Kerlix covered by ABDs daily. DESMOND wrap for compression. Ordered a CBC to recheck his hemoglobin due to his postoperative anemia. He states he is taking iron still. He is not going to get his lab work done. Encouraged increase protein and fluid intake due to the size and the amount of drainage from his wound. Follow up in one week. [id number]: [id number] Global Visit
[2020-12-07 16:29] LABS: Hematocrit 37.3 % (40-54); Hemoglobin 11.6 g/dL (13.0-16.5); Mean Corp Hgb Conc 31.1 g/dL (32-36); Mean Corpuscular Hgb 23.9 pg (27.0-32.0); Mean Corpuscular Volume 76.7 fL (80-94); Mean Platelet Vol. 9.8 fl (6.2-12.0); Platelet Count 314 K/mm3 (150-450); RBC Distribution Width CV 15.9 % (11.6-14.6); RBC Distribution Width SD 44.6 fl (35.1-43.9); Red Blood Count 4.86 M/mm3 (4.6-6.2); White Blood Count 7.5 K/mm3 (4.4-11.0)
== END 2020-12-09 23:59 ==
LOC: WC 13:30
PROVIDERS: PCP Internal Medicine; Referring Provider Internal Medicine; Visit Provider Surgery
DX: L97.122 Non-pressure chronic ulcer of left thigh with fat layer exposed (principal); L98.7 Excessive and redundant skin and subcutaneous tissue; I89.0 Lymphedema, not elsewhere classified; E66.01 Morbid (severe) obesity due to excess calories; Z98.84 Bariatric surgery status; Z87.891 Personal history of nicotine dependence; M79.3 Panniculitis, unspecified; L30.4 Erythema intertrigo
CPT/HCPCS: 11042; 11045; 36415; 85027

== ENCOUNTER 2020-12-28 13:15 | Outpatient (RCR) | payer MEDICAID, SELFPAY ==
[2020-12-10 00:41] VITALS: BP 142/82; PULSE 67; RESP 16; TEMP 37.1
[2020-12-14 13:20] VITALS: RESP 22; TEMP 36.4; BMI 52.0
--- NOTE | 2020-12-14 14:24 | PCM.WC.PN ---
(1) Chronic ulcer of left thigh with fat layer exposed Status: Chronic Code(s): L97.122 - Non-pressure chronic ulcer of left thigh with fat layer exposed (2) Acute postoperative anemia due to expected blood loss Status: Chronic Code(s): D62 - Acute posthemorrhagic anemia (3) History of bariatric surgery Status: Chronic Code(s): Z98.84 - Bariatric surgery status Comment: gastric sleeve in May, in [place] (4) Excessive body weight loss Status: Chronic Code(s): R63.4 - Abnormal weight loss Comment: from weight loss surgery (about 250 lbs) (5) Excessive and redundant skin and subcutaneous tissue Status: Chronic Code(s): L98.7 - Excessive and redundant skin and subcutaneous tissue Comment: bilateral medial thighs (6) Intertrigo Status: Chronic Code(s): L30.4 - Erythema intertrigo Comment: abdominal wall skin crease intertrigo and bilateral thigh intertrigo Type of Wound Date of Service: 12/14/20 Chief Complaint: Left medial thigh wound after surgery on 09/22/20 for Excision redundant skin and subcutaneous tissue left medial and posterior thigh with dermolipectomy. History of Wound: 45 year old man presents with areas of redundant skin and subcutaneous tissue in his bilateral medial thighs and abdominal panniculus with associated panniculitis. There is abdominal wall skin crease intertrigo and bilateral medial thigh intertrigo for which he uses powders for relief. This excess skin and subcutaneous tissue was the result of bariatric surgery done in [place] in May,. He lost about 250 lbs and his current weight is about 440 lbs. He has a history of lower extremity lymphedema resulting from the extreme body weight and has persistent dependent edema in his medial thighs which aggravates his symptomatology. He denies trauma. He denies fever. Both areas bother him but the medial thighs are his initial priority as he has trouble with ambulating. We have received medical approval from his insurance company for his thigh surgery. Surgery 09/22/20 - Excision redundant skin and subcutaneous tissue left medial and posterior thigh with dermolipectomy. After surgery attempted to use a wound VAC but the size of the wound is too large and would not be able to keep a seal in the left groin by the scrotum. Wound care - Dakin's moistened gauze daily topped by ABDs and a double GRACIA wrap for compression. He came home from [facility] and is doing well at home. Today he denies fever and chills and states his appetite is good. Progress of Wound: Improved. - Physical Exam Vital Signs Temp Pulse Resp BP 97.5 F L 67 22 H 142/82 H 12/14/20 13:20 12/10/20 00:41 12/14/20 13:20 12/10/20 00:41 General: Alert, Oriented x3, Cooperative HEENT: Atraumatic Oral: Moist Mucosa Lungs: Normal air movement Cardiovascular: Regular rate Abdomen: Obese Extremities: Capillary Refill Less than 3 Seconds, Edema - Bilateral lower extremity edema. The edema is chronic and may be lymphedema. Skin: Ulcer/ Wound - Left medial thigh ulcer that is beefy pink. Is decreasing in size. Wound Measurements and Assessment WC - Nurse 1 - General Ulcer Measurement Start: 12/14/20 13:19 Freq: Status: Active Protocol: Activity Type Activity Date Activity User E-Sign Co-Sign Detail Recorded Client Recorded Date Recorded By Document 12/14/20 13:20 DL [id number] 12/14/20 13:28 DL 12/14/20 13:20 Wound Center Nurse 1 [Ulcer Assessment] #9 left medial groin/thigh -Current Size (cm) - Length 24 -Current Size (cm) - Width 16 -Current Size (cm) - Depth 0.1 -Total Square Cm 384 -Photo Taken No -Exudate Amt Large -Exudate Type Serosanguineous -Wound Margin Distinct, Outline Attached -Granulation Amt Medium (34-66%) -Granulation Quality Red -Necrosis Amt Medium (34-66%) -Necrotic Tissue Type Adherent Slough -Structure Exposed N/A -Texture (Josephine-wound Skin Appearance) Scarring -Moisture (Josephine-wound Skin Appearance No Abnormality ) -Color (Josephine-wound Skin Appearance) No Abnormality -Temperature (Josephine-wound Skin No Abnormality Appearance) (Pt Warm) -Tenderness on Palpation (Josephine-wound No Skin Appearance) -Ulcer Cleansing Wound Cleanser -Foul Odor after Cleansing No -Anesthetic Used 4% Lidocaine Solution [Edema Assessment] -Left Ankle (cm) 70.5 -Left Foot (cm) 43.6 WC - Nurse 2 - General Ulcer CM Notes Start: 12/14/20 13:19 Freq: Status: Active Protocol: Activity Type Activity Date Activity User E-Sign Co-Sign Detail Recorded Client Recorded Date Recorded By Document 12/14/20 13:40 JOHN [id number] 12/14/20 13:48 JOHN 12/14/20 13:40 Wound Center Nurse 2 [Procedure/Treatment] #9 left medial groin/thigh -Time 13:41 -Correct Patient Yes -Correct Side, Site, Position Yes -Correct Procedure Yes -Procedure Performed Yes -Type of Procedure Debridement -Clinical Debridement Subcutaneous -Tissue Removed Subcutaneous -Post Debridement (cm) - Length 13 -Post Debridement (cm) - Width 25 -Post Debridement (cm) - Depth 0.1 -Total Square (Post) (cm) 325 -Area of Debridement (cm) - Length 13 -Area of Debridement (cm) - Width 25 -Total Square (Area) (cm) 325 -Tunneling No -Undermining/Tunneling No -Circular Undermining No -Wound/Ulcer Outcome Not Healed -Ulcer Cleansing Rinsed/ Irrigated with Saline -Foul Odor after Cleansing No -Bioengineered Tissue No -Bleeding Controlled with Pressure -Offloading No -Treatment Response Procedure Tolerated Well -Debridement - Subq, 1st 20sq cm Yes -Debridement, SubQ, ea addt'l 20sq cm 11 or part thereof [See Physician Procedure note for Specifics] Pain Scale: 0-10 Numeric [Pain] -Is Patient Pain Free? Yes - Nurse 3 - General Ulcer D/C NN Start: 12/14/20 13:19 Freq: Status: Active Protocol: Activity Type Activity Date Activity User E-Sign Co-Sign Detail Recorded Client Recorded Date Recorded By Document 12/14/20 14:02 CHAVEZ [id number] 12/14/20 14:03 DL 12/14/20 14:02 Wound Care Nurse 3 [Wound Dressing] #9 left medial groin/thigh -Ulcer Cleansing Wound Cleanser -Foul Odor after Cleansing No -Other Dressing Moist gauze today -Primary Dressing Covered/Secured Dry Gauze,Dry with Gauze & Roll Gauze,Secured with Tape [Post Procedure Tolerated] -Treatment Response Procedure Tolerated Well Pain Scale: 0-10 Numeric [Pain] -Is Patient Pain Free? Yes - Visit Discharge [Visit Discharge Information] -Discharge Condition Stable -Ambulatory Status Ambulatory -Transportation Private Auto -Notes: Pt to resume Dakins at home. Musculoskeletal: No Tenderness to Palpation of Joints or Extremities Neurological: Cranial nerves II-XII grossly intact Psych/Mental Status: Normal Affect, Appropriate Debridement Note Post-Debridement Measurements/Treatment - Nurse 2 - General Ulcer CM Notes Start: 12/14/20 13:19 Freq: Status: Active Protocol: Activity Type Activity Date Activity User E-Sign Co-Sign Detail Recorded Client Recorded Date Recorded By Document 12/14/20 13:40 JOHN [id number] 12/14/20 13:48 JOHN 12/14/20 13:40 Wound Center Nurse 2 #9 left medial groin/thigh -Time 13:41 -Correct Patient Yes -Correct Side, Site, Position Yes -Correct Procedure Yes -Procedure Performed Yes -Type of Procedure Debridement -Clinical Debridement Subcutaneous -Tissue Removed Subcutaneous -Post Debridement (cm) - Length 13 -Post Debridement (cm) - Width 25 -Post Debridement (cm) - Depth 0.1 -Total Square (Post) (cm) 325 -Area of Debridement (cm) - Length 13 -Area of Debridement (cm) - Width 25 -Total Square (Area) (cm) 325 -Tunneling No -Undermining/Tunneling No -Circular Undermining No -Wound/Ulcer Outcome Not Healed -Ulcer Cleansing Rinsed/ Irrigated with Saline -Foul Odor after Cleansing No -Bioengineered Tissue No -Bleeding Controlled with Pressure -Offloading No -Treatment Response Procedure Tolerated Well -Debridement - Subq, 1st 20sq cm Yes -Debridement, SubQ, ea addt'l 20sq cm 11 or part thereof Pain Scale: 0-10 Numeric Is Patient Pain Free? Yes - Nurse 3 - General Ulcer D/C NN Start: 12/14/20 13:19 Freq: Status: Active Protocol: Activity Type Activity Date Activity User E-Sign Co-Sign Detail Recorded Client Recorded Date Recorded By Document 12/14/20 14:02 CHAVEZ [id number] 12/14/20 14:03 DL 12/14/20 14:02 Wound Care Nurse 3 #9 left medial groin/thigh -Ulcer Cleansing Wound Cleanser -Foul Odor after Cleansing No -Other Dressing Moist gauze today -Primary Dressing Covered/Secured with Dry Gauze,Dry Gauze & Roll Gauze,Secured with Tape Treatment Response Procedure Tolerated Well Pain Scale: 0-10 Numeric Is Patient Pain Free? Yes WC - Visit Discharge Discharge Condition Stable Ambulatory Status Ambulatory Transportation Private Auto Notes: Pt to resume Dakins at home. Wound debrided: Medial thigh ulcer Laterality: Left Type of Debridement: Excisional debridement Anesthesia Used: 5% Lidocaine Gel Depth: Down to and including healthy tissue, in the subcutaneous layer Percentage of wound debrided: 100 Instrument Used: 7mm curette Tissue Removed: Subcutaneous tissue and slough Severity: Fat Layer Exposed Amount of bleeding with debridement: Moderate Bleeding Controlled with: Pressure, Compression and gauze Patient tolerated procedure well Assessment/Plan Assessment: 1. Redundant skin and subcutaneous tissue bilateral medial and posterior thighs, worse on the left. 2. Bilateral medial thigh intertrigo, worse on the left. 3. Excessive body weight loss from bariatric surgery (250 lbs). 4. History of bariatric surgery. 5. Obesity. 6. Lymphedema. 7. Former smoker. Plan: Wound care - Dakin's moistened Kerlix covered by ABDs daily. GRACIA wrap for compression. We will do arterial and venous studies so we can obtain the appropriate amount of compression. He is also interested in lymphedema pumps after he is done with the surgery on both thighs. In the past he has never been able to have pumps that would fit him due to the redundant skin. Hemaglobin 11.6/HCT 37.3 from 12/07/20. He states he is taking iron still. Encouraged increase protein and fluid intake due to the size and the amount of drainage from his wound. Follow up in one week. [id number]: [id number] Global Visit
[2020-12-21 13:06] VITALS: BP 145/56; PULSE 63; TEMP 36.4; BMI 52.0
--- NOTE | 2020-12-21 13:45 | PCM.WC.PN ---
(1) Chronic ulcer of left thigh with fat layer exposed Status: Chronic Code(s): L97.122 - Non-pressure chronic ulcer of left thigh with fat layer exposed (2) Acute postoperative anemia due to expected blood loss Status: Chronic Code(s): D62 - Acute posthemorrhagic anemia (3) History of bariatric surgery Status: Chronic Code(s): Z98.84 - Bariatric surgery status Comment: gastric sleeve in May, in [place] (4) Excessive body weight loss Status: Chronic Code(s): R63.4 - Abnormal weight loss Comment: from weight loss surgery (about 250 lbs) (5) Excessive and redundant skin and subcutaneous tissue Status: Chronic Code(s): L98.7 - Excessive and redundant skin and subcutaneous tissue Comment: bilateral medial thighs (6) Intertrigo Status: Chronic Code(s): L30.4 - Erythema intertrigo Comment: abdominal wall skin crease intertrigo and bilateral thigh intertrigo Type of Wound Date of Service: 12/21/20 Chief Complaint: Left medial thigh wound after surgery on 09/22/20 for Excision redundant skin and subcutaneous tissue left medial and posterior thigh with dermolipectomy. History of Wound: 45 year old man presents with areas of redundant skin and subcutaneous tissue in his bilateral medial thighs and abdominal panniculus with associated panniculitis. There is abdominal wall skin crease intertrigo and bilateral medial thigh intertrigo for which he uses powders for relief. This excess skin and subcutaneous tissue was the result of bariatric surgery done in [place] in May,. He lost about 250 lbs and his current weight is about 440 lbs. He has a history of lower extremity lymphedema resulting from the extreme body weight and has persistent dependent edema in his medial thighs which aggravates his symptomatology. He denies trauma. He denies fever. Both areas bother him but the medial thighs are his initial priority as he has trouble with ambulating. We have received medical approval from his insurance company for his thigh surgery. Surgery 09/22/20 - Excision redundant skin and subcutaneous tissue left medial and posterior thigh with dermolipectomy. After surgery attempted to use a wound VAC but the size of the wound is too large and would not be able to keep a seal in the left groin by the scrotum. Wound care - Dakin's moistened gauze daily topped by ABDs and a double DESMOND wrap for compression. He came home from SNF and is doing well at home. Today he denies fever and chills and states his appetite is good. Progress of Wound: Improved. - Physical Exam Vital Signs Temp Pulse Resp BP 97.6 F L 63 22 H 145/56 H 12/21/20 13:06 12/21/20 13:06 12/14/20 13:20 12/21/20 13:06 General: Alert, Oriented x3, Cooperative HEENT: Atraumatic Oral: Moist Mucosa Cardiovascular: Regular rate Abdomen: Obese Extremities: Capillary Refill Less than 3 Seconds, Edema - Bilateral lower extremity edema/lymphadema. Skin: Ulcer/ Wound - Left medial thigh ulcer is beefy pink and decreasing in size Wound Measurements and Assessment WC - Nurse 1 - General Ulcer Measurement Start: 12/14/20 13:19 Freq: Status: Active Protocol: Activity Type Activity Date Activity User E-Sign Co-Sign Detail Recorded Client Recorded Date Recorded By Document 12/21/20 13:06 DREAD [id number] 12/21/20 13:14 DREAD 12/21/20 13:06 Wound Center Nurse 1 [Ulcer Assessment] #9 left medial groin/thigh -Current Size (cm) - Length 22.3 -Current Size (cm) - Width 11 -Current Size (cm) - Depth 0.1 -Total Square Cm 245.3 -Exudate Amt Large -Exudate Type Serosanguineous -Wound Margin Distinct, Outline Attached -Granulation Amt Large (67-100%) -Granulation Quality Red -Necrosis Amt None Present (0 %) -Texture (Josephine-wound Skin Appearance) Assessed, Scarring -Moisture (Josephine-wound Skin Appearance Assessed ) -Color (Josephine-wound Skin Appearance) No Abnormality, Assessed -Temperature (Josephine-wound Skin No Abnormality Appearance) (Pt Warm) -Tenderness on Palpation (Josephine-wound No Skin Appearance) -Ulcer Cleansing soap and water -Foul Odor after Cleansing No -Anesthetic Used 4% Lidocaine Solution WC - Nurse 2 - General Ulcer CM Notes Start: 12/14/20 13:19 Freq: Status: Active Protocol: Activity Type Activity Date Activity User E-Sign Co-Sign Detail Recorded Client Recorded Date Recorded By Document 12/21/20 13:26 JOHN [id number] 12/21/20 13:29 JF 12/21/20 13:26 Wound Center Nurse 2 [Procedure/Treatment] -Time 13:26 -Correct Patient Yes -Correct Side, Site, Position Yes -Correct Procedure Yes -Procedure Performed Yes -Type of Procedure Debridement -Clinical Debridement Subcutaneous -Tissue Removed Subcutaneous -Post Debridement (cm) - Length 13.8 -Post Debridement (cm) - Width 22.3 -Post Debridement (cm) - Depth 0.1 -Total Square (Post) (cm) 307.74 -Area of Debridement (cm) - Length 13.8 -Area of Debridement (cm) - Width 22.3 -Total Square (Area) (cm) 307.74 -Tunneling No -Undermining/Tunneling No -Circular Undermining No -Wound/Ulcer Outcome Not Healed -Ulcer Cleansing Rinsed/ Irrigated with Saline -Foul Odor after Cleansing No -Bioengineered Tissue No -Bleeding Controlled with Pressure -Offloading No -Treatment Response Procedure Tolerated Well -Debridement - Subq, 1st 20sq cm Yes -Debridement, SubQ, ea addt'l 20sq cm 11 or part thereof [See Physician Procedure note for Specifics] Pain Scale: 0-10 Numeric [Pain] -Is Patient Pain Free? Yes - Nurse 3 - General Ulcer D/C NN Start: 12/14/20 13:19 Freq: Status: Active Protocol: Activity Type Activity Date Activity User E-Sign Co-Sign Detail Recorded Client Recorded Date Recorded By Document 12/21/20 13:35 [facility] [id number] 12/21/20 13:38 [facility] 12/21/20 13:35 Wound Care Nurse 3 [Wound Dressing] #9 left medial groin/thigh -Ulcer Cleansing Rinsed/ Irrigated with Saline -Foul Odor after Cleansing No -Primary Dressing Applied Other -Other Dressing moist to dry -Primary Dressing Covered/Secured Secured with with Tape,Other -Other Covering abd, super absorber drsg, desmond to secure [Compression Applied] Left -Compression Wrap Desmond Wrap [Post Procedure Tolerated] -Treatment Response Procedure Tolerated Well - Visit Discharge [Visit Discharge Information] -Discharge Condition Stable -Ambulatory Status Ambulatory -Transportation Private Auto Musculoskeletal: No Tenderness to Palpation of Joints or Extremities Neurological: Cranial nerves II-XII grossly intact Psych/Mental Status: Normal Affect, Appropriate Debridement Note Post-Debridement Measurements/Treatment - Nurse 2 - General Ulcer CM Notes Start: 12/14/20 13:19 Freq: Status: Active Protocol: Activity Type Activity Date Activity User E-Sign Co-Sign Detail Recorded Client Recorded Date Recorded By Document 12/14/20 13:40 [id number] 12/14/20 13:48 JF Document 12/21/20 13:26 [id number] 12/21/20 13:29 JF 12/14/20 12/21/20 13:40 13:26 Wound Center Nurse 2 #9 left medial groin/thigh -Time 13:41 13:26 -Correct Patient Yes Yes -Correct Side, Site, Position Yes Yes -Correct Procedure Yes Yes -Procedure Performed Yes Yes -Type of Procedure Debridement Debridement -Clinical Debridement Subcutaneous Subcutaneous -Tissue Removed Subcutaneous Subcutaneous -Post Debridement (cm) - Length 13 13.8 -Post Debridement (cm) - Width 25 22.3 -Post Debridement (cm) - Depth 0.1 0.1 -Total Square (Post) (cm) 325 307.74 -Area of Debridement (cm) - Length 13 13.8 -Area of Debridement (cm) - Width 25 22.3 -Total Square (Area) (cm) 325 307.74 -Tunneling No No -Undermining/Tunneling No No -Circular Undermining No No -Wound/Ulcer Outcome Not Healed Not Healed -Ulcer Cleansing Rinsed/ Rinsed/ Irrigated with Irrigated with Saline Saline -Foul Odor after Cleansing No No -Bioengineered Tissue No No -Bleeding Controlled with Pressure Pressure -Offloading No No -Treatment Response Procedure Procedure Tolerated Well Tolerated Well -Debridement - Subq, 1st 20sq cm Yes Yes -Debridement, SubQ, ea addt'l 20sq cm 11 11 or part thereof Pain Scale: 0-10 Numeric Is Patient Pain Free? Yes Yes WC - Nurse 3 - General Ulcer D/C NN Start: 12/14/20 13:19 Freq: Status: Active Protocol: Activity Type Activity Date Activity User E-Sign Co-Sign Detail Recorded Client Recorded Date Recorded By Document 12/14/20 14:02 DL [id number] 12/14/20 14:03 DL Document 12/21/20 13:35 [facility] [id number] 12/21/20 13:38 [facility] 12/14/20 12/21/20 14:02 13:35 Wound Care Nurse 3 #9 left medial groin/thigh -Ulcer Cleansing Wound Cleanser Rinsed/ Irrigated with Saline -Foul Odor after Cleansing No No -Primary Dressing Applied Other -Other Dressing Moist gauze moist to dry today -Primary Dressing Covered/Secured with Dry Gauze,Dry Secured with Gauze & Roll Tape,Other Gauze,Secured with Tape -Other Covering abd, super absorber drsg, desmond to secure Left -Compression Wrap Desmond Wrap Treatment Response Procedure Procedure Tolerated Well Tolerated Well Pain Scale: 0-10 Numeric Is Patient Pain Free? Yes WC - Visit Discharge Discharge Condition Stable Stable Ambulatory Status Ambulatory Ambulatory Transportation Private Auto Private Auto Notes: Pt to resume Dakins at home. Wound debrided: Medial leg ulcer Laterality: Left Type of Debridement: Excisional debridement Depth: Down to and including healthy tissue, in the subcutaneous layer Percentage of wound debrided: 100 Instrument Used: 7mm curette Tissue Removed: Subcutaneous tissue and slough Severity: Fat Layer Exposed Amount of bleeding with debridement: Moderate Bleeding Controlled with: Pressure, Compression and gauze Patient tolerated procedure well Assessment/Plan Active Problems (Last Reviewed 08/21/20 @ 20:[address] Xavi Kinney MD) Chronic ulcer of left thigh with fat layer exposed (Chronic) Acute postoperative anemia due to expected blood loss (Chronic) History of bariatric surgery (Chronic) gastric sleeve in May, in [place] Excessive body weight loss (Chronic) from weight loss surgery (about 250 lbs) Excessive and redundant skin and subcutaneous tissue (Chronic) bilateral medial thighs Intertrigo (Chronic) abdominal wall skin crease intertrigo and bilateral thigh intertrigo Assessment: 1. Redundant skin and subcutaneous tissue bilateral medial and posterior thighs, worse on the left. 2. Bilateral medial thigh intertrigo, worse on the left. 3. Excessive body weight loss from bariatric surgery (250 lbs). 4. History of bariatric surgery. 5. Obesity. 6. Lymphedema. 7. Former smoker. Plan: Wound care - Dakin's moistened Kerlix covered by ABDs daily. DESMOND wrap for compression. We will do arterial and venous studies so we can obtain the appropriate amount of compression. They are scheduled for this week. He is also interested in lymphedema pumps after he is done with the surgery on both thighs. In the past he has never been able to have pumps that would fit him due to the redundant skin. Hemaglobin 11.6/HCT 37.3 from 12/07/20. He states he is taking iron still. Encouraged increase protein and fluid intake due to the size and the amount of drainage from his wound. Follow up in one week. [id number]: [id number] Global Visit
[2020-12-28 13:19] VITALS: BP 149/85; PULSE 75; RESP 20; TEMP 36.6; BMI 52.0
--- NOTE | 2020-12-28 23:46 | PCM.WC.PN ---
Type of Wound Date of Service: 12/28/20 Chief Complaint: Nonhealing ulcer left medial thigh. History of Wound: 45 year old man presents with areas of redundant skin and subcutaneous tissue in his bilateral medial thighs and abdominal panniculus with associated panniculitis. There is abdominal wall skin crease intertrigo and bilateral medial thigh intertrigo for which he uses powders for relief. This excess skin and subcutaneous tissue was the result of bariatric surgery done in [place] in May,. He lost about 250 lbs and his current weight is about 440 lbs. He has a history of lower extremity lymphedema resulting from the extreme body weight and has persistent dependent edema in his medial thighs which aggravates his symptomatology. He denies trauma. He denies fever. Both areas bother him but the medial thighs are his initial priority as he has trouble with ambulating. We have received medical approval from his insurance company for his thigh surgery. Surgery 09/22/20 - Excision redundant skin and subcutaneous tissue left medial and posterior thigh with dermolipectomy. Wound care - Dakin's moistened gauze daily topped by ABDs and a double DESMOND wrap for compression. Today he denies fever and chills and states his appetite is good. Progress of Wound: Improved. - Physical Exam Vital Signs Temp Pulse Resp BP 98 F 75 20 H 149/85 H 12/28/20 13:19 12/28/20 13:19 12/28/20 13:19 12/28/20 13:19 Wound Measurements and Assessment WC - Nurse 1 - General Ulcer Measurement Start: 12/14/20 13:19 Freq: Status: Active Protocol: Activity Type Activity Date Activity User E-Sign Co-Sign Detail Recorded Client Recorded Date Recorded By Document 12/28/20 13:19 [facility] [id number] 12/28/20 13:28 [facility] 12/28/20 13:19 Wound Center Nurse 1 [Ulcer Assessment] #9 left medial groin/thigh -Current Size (cm) - Length 20.1 -Current Size (cm) - Width 11.5 -Current Size (cm) - Depth 0.1 -Total Square Cm 231.15 -Photo Taken No -Exudate Amt Medium -Exudate Type Serosanguineous -Wound Margin Distinct, Outline Attached -Granulation Amt Medium (34-66%) -Granulation Quality Red -Necrosis Amt Medium (34-66%) -Necrotic Tissue Type Adherent Slough -Structure Exposed N/A -Texture (Josephine-wound Skin Appearance) Scarring -Moisture (Josephine-wound Skin Appearance No Abnormality ) -Color (Josephine-wound Skin Appearance) Rubor -Temperature (Josephine-wound Skin No Abnormality Appearance) (Pt Warm) -Tenderness on Palpation (Josephine-wound No Skin Appearance) -Ulcer Cleansing Wound Cleanser -Foul Odor after Cleansing No -Anesthetic Used 4% Lidocaine Solution ACOSTA - Nurse 2 - General Ulcer CM Notes Start: 12/14/20 13:19 Freq: Status: Active Protocol: Activity Type Activity Date Activity User E-Sign Co-Sign Detail Recorded Client Recorded Date Recorded By Document 12/28/20 13:40 [id number] 12/28/20 13:46 12/28/20 13:40 Wound Center Nurse 2 [Procedure/Treatment] -Time 13:40 -Correct Patient Yes -Correct Side, Site, Position Yes -Correct Procedure Yes -Procedure Performed Yes -Type of Procedure Debridement -Clinical Debridement Subcutaneous -Tissue Removed Subcutaneous -Post Debridement (cm) - Length 8.8 -Post Debridement (cm) - Width 19.5 -Post Debridement (cm) - Depth 0.1 -Total Square (Post) (cm) 171.60 -Area of Debridement (cm) - Length 8.8 -Area of Debridement (cm) - Width 19.5 -Total Square (Area) (cm) 171.60 -Tunneling No -Undermining/Tunneling No -Circular Undermining No -Wound/Ulcer Outcome Not Healed -Ulcer Cleansing Rinsed/ Irrigated with Saline -Foul Odor after Cleansing No -Bioengineered Tissue No -Bleeding Controlled with Pressure -Offloading No -Treatment Response Procedure Tolerated Well -Debridement - Subq, 1st 20sq cm Yes -Debridement, SubQ, ea addt'l 20sq cm 8 or part thereof [See Physician Procedure note for Specifics] Pain Scale: 0-10 Numeric [Pain] -Is Patient Pain Free? Yes ACOSTA - Nurse 3 - General Ulcer D/C NN Start: 12/14/20 13:19 Freq: Status: Active Protocol: Activity Type Activity Date Activity User E-Sign Co-Sign Detail Recorded Client Recorded Date Recorded By Document 12/28/20 13:55 [facility] [id number] 12/28/20 13:56 [facility] 12/28/20 13:55 Wound Care Nurse 3 [Wound Dressing] #9 left medial groin/thigh -Ulcer Cleansing Rinsed/ Irrigated with Saline -Foul Odor after Cleansing No -Primary Dressing Applied Other -Other Dressing saline moistened gauze -Primary Dressing Covered/Secured Secured with with Tape,Other -Other Covering abd, drsg per d paulino plaster form maker [Compression Applied] Left -Compression Wrap Desmond Wrap -Other desmond to secure wound and x2 to LE [Post Procedure Tolerated] -Treatment Response Procedure Tolerated Well Pain Scale: 0-10 Numeric [Pain] -Is Patient Pain Free? Yes WC - Visit Discharge [Visit Discharge Information] -Discharge Condition Stable -Ambulatory Status Ambulatory -Transportation Private Auto Debridement Note Post-Debridement Measurements/Treatment WC - Nurse 2 - General Ulcer CM Notes Start: 12/14/20 13:19 Freq: Status: Active Protocol: Activity Type Activity Date Activity User E-Sign Co-Sign Detail Recorded Client Recorded Date Recorded By Document 12/14/20 13:40 [id number] 12/14/20 13:48 Document 12/21/20 13:26 [id number] 12/21/20 13:29 Document 12/28/20 13:40 [id number] 12/28/20 13:46 12/14/20 12/21/20 12/28/20 13:40 13:26 13:40 Wound Center Nurse 2 #9 left medial groin/thigh -Time 13:41 13:26 13:40 -Correct Patient Yes Yes Yes -Correct Side, Site, Position Yes Yes Yes -Correct Procedure Yes Yes Yes -Procedure Performed Yes Yes Yes -Type of Procedure Debridement Debridement Debridement -Clinical Debridement Subcutaneous Subcutaneous Subcutaneous -Tissue Removed Subcutaneous Subcutaneous Subcutaneous -Post Debridement (cm) - Length 13 13.8 8.8 -Post Debridement (cm) - Width 25 22.3 19.5 -Post Debridement (cm) - Depth 0.1 0.1 0.1 -Total Square (Post) (cm) 325 307.74 171.60 -Area of Debridement (cm) - Length 13 13.8 8.8 -Area of Debridement (cm) - Width 25 22.3 19.5 -Total Square (Area) (cm) 325 307.74 171.60 -Tunneling No No No -Undermining/Tunneling No No No -Circular Undermining No No No -Wound/Ulcer Outcome Not Healed Not Healed Not Healed -Ulcer Cleansing Rinsed/ Rinsed/ Rinsed/ Irrigated with Irrigated with Irrigated with Saline Saline Saline -Foul Odor after Cleansing No No No -Bioengineered Tissue No No No -Bleeding Controlled with Pressure Pressure Pressure -Offloading No No No -Treatment Response Procedure Procedure Procedure Tolerated Well Tolerated Well Tolerated Well -Debridement - Subq, 1st 20sq cm Yes Yes Yes -Debridement, SubQ, ea addt'l 20sq cm 11 11 8 or part thereof Pain Scale: 0-10 Numeric Is Patient Pain Free? Yes Yes Yes - Nurse 3 - General Ulcer D/C NN Start: 12/14/20 13:19 Freq: Status: Active Protocol: Activity Type Activity Date Activity User E-Sign Co-Sign Detail Recorded Client Recorded Date Recorded By Document 12/14/20 14:02 DL [id number] 12/14/20 14:03 DL Document 12/21/20 13:35 [facility] [id number] 12/21/20 13:38 [facility] Document 12/28/20 13:55 [facility] [id number] 12/28/20 13:56 [facility] 12/14/20 12/21/20 12/28/20 14:02 13:35 13:55 Wound Care Nurse 3 #9 left medial groin/thigh -Ulcer Cleansing Wound Cleanser Rinsed/ Rinsed/ Irrigated with Irrigated with Saline Saline -Foul Odor after Cleansing No No No -Primary Dressing Applied Other Other -Other Dressing Moist gauze moist to dry saline today moistened gauze -Primary Dressing Covered/Secured with Dry Gauze,Dry Secured with Secured with Gauze & Roll Tape,Other Tape,Other Gauze,Secured with Tape -Other Covering abd, super abd, drsg per d absorber drsg, paulino plaster form maker desmond to secure Left -Compression Wrap Desmond Wrap Desmond Wrap -Other desmond to secure wound and x2 to LE Treatment Response Procedure Procedure Procedure Tolerated Well Tolerated Well Tolerated Well Pain Scale: 0-10 Numeric Is Patient Pain Free? Yes Yes - Visit Discharge Discharge Condition Stable Stable Stable Ambulatory Status Ambulatory Ambulatory Ambulatory Transportation Private Auto Private Auto Private Auto Notes: Pt to resume Dakins at home. Wound debrided: #9 Left medial thigh. Laterality: Left Wound Grade/Stage: 2. Type of Debridement: Excisional debridement Anesthesia Used: 4% Lidocaine Solution Depth: Down to and including healthy tissue, in the subcutaneous layer Percentage of wound debrided: 100 Instrument Used: 7mm curette Tissue Removed: subcutaneous tissue. Severity: Fat Layer Exposed Amount of bleeding with debridement: Mild Bleeding Controlled with: Pressure Patient tolerated procedure well Assessment/Plan Active Problems (Last Reviewed 08/21/20 @ 20:[address] Xavi Kinney MD) Chronic ulcer of left thigh with fat layer exposed (Chronic) Acute postoperative anemia due to expected blood loss (Chronic) History of bariatric surgery (Chronic) gastric sleeve in May, in [place] Excessive body weight loss (Chronic) from weight loss surgery (about 250 lbs) Excessive and redundant skin and subcutaneous tissue (Chronic) bilateral medial thighs Intertrigo (Chronic) abdominal wall skin crease intertrigo and bilateral thigh intertrigo Assessment: 1. Nonhealing ulcer left medial thigh. 2. Redundant skin and subcutaneous tissue bilateral medial and posterior thighs, worse on the left. 3. Bilateral medial thigh intertrigo, worse on the left. 4. Excessive body weight loss from bariatric surgery (250 lbs). 5. History of bariatric surgery. 6. Obesity. 7. Lymphedema. 8. Former smoker. Plan: Continue Dakin's moistened Kerlix covered by ABDs daily. DESMOND wrap for compression. We will do arterial and venous studies so we can obtain the appropriate amount of compression. Awaiting results. He is also interested in lymphedema pumps after he is done with the surgery on both thighs. In the past he has never been able to have pumps that would fit him due to the redundant skin. Encouraged increase protein and fluid intake due to the size and the amount of drainage from his wound. Follow up in one week. The left medial thigh ulcer is stable. He is ready to proceed with the dermolipectomy right medial thigh at this time. Will schedule the surgery under general anesthesia with a surgical observation overnight stay. The left medial thigh ulcer is ready for operative debridement and skin grafting. At the time of the dermolipectomy on the right, will obtain wound culture on the left and treat with antibiotics if positive. After the right medial thigh wound has stabilized postop, can then discuss. delayed closure with skin grafting for bilateral thigh ulcers. Patient was in agreement. Patient was informed of the risks and complications of the procedure including alternatives to surgery. These were discussed with him personally. He voices understanding and wishes to proceed. [id number]: [id number] Margarita subq tissue 20 sq cm/< - ICD-10 - L97.122, L98.7, R63.4, L30.4, Z98.84, E66.01, I89.0, Z87.891 Add On Codes: [id number] Margarita subq tissue add-on - X 8 Units ICD-10 - L97.122, L98.7, R63.4, L30.4, Z98.84, E66.01, I89.0, Z87.891
== END 2021-01-08 23:59 ==
LOC: WC 13:15
PROVIDERS: PCP Internal Medicine; Referring Provider Internal Medicine; Visit Provider Surgery
DX: L97.122 Non-pressure chronic ulcer of left thigh with fat layer exposed (principal); Z98.84 Bariatric surgery status; L30.4 Erythema intertrigo; M79.3 Panniculitis, unspecified; I89.0 Lymphedema, not elsewhere classified; Z87.891 Personal history of nicotine dependence; E66.9 Obesity, unspecified; L98.7 Excessive and redundant skin and subcutaneous tissue
CPT/HCPCS: 11042; 11045

== ENCOUNTER → 2021-01-05 09:32 | Outpatient (CLI) | payer MEDICAID, SELFPAY ==
[2020-12-28 13:19] VITALS: BMI 52.0
[2021-01-05 13:10] LABS: Anion Gap 5 (5-15); BUN 24 mg/dL (7-18); BUN/Creat Ratio 27.1 RATIO (10-20); Calcium,Total 8.5 mg/dL (8.5-10.1); Chloride 103 mmol/L (98-107); Creatinine, Serum 0.89 mg/dL (0.70-1.30); EST Glomerular Filtration Rate 98 mL/min (>60); Est Glom Filt Rate - Afr Amer 118 mL/min (>60); Glucose 100 mg/dL (74-106); Potassium 4.3 mmol/L (3.5-5.1); Sodium Level 139 mmol/L (136-145)
== END ==
PROVIDERS: PCP Internal Medicine; Referring Provider Internal Medicine; Visit Provider Internal Medicine
DX: I50.32 Chronic diastolic (congestive) heart failure (principal)
CPT/HCPCS: 36415; 80048

== ENCOUNTER 2021-02-01 13:15 | Outpatient (RCR) | payer MEDICAID, SELFPAY ==
[2021-01-09 00:40] VITALS: BP 149/85; PULSE 75; RESP 20; TEMP 36.6
[2021-01-11 14:27] VITALS: BP 165/96; PULSE 56; TEMP 37.2; BMI 52.0
--- NOTE | 2021-01-11 15:36 | PCM.WC.PN ---
History of Present Illness Date of Service: 01/11/21 Chief Complaint: Nonhealing ulcer left medial thigh. History of Wound: 45 year old man presents with areas of redundant skin and subcutaneous tissue in his bilateral medial thighs and abdominal panniculus with associated panniculitis. There is abdominal wall skin crease intertrigo and bilateral medial thigh intertrigo for which he uses powders for relief. This excess skin and subcutaneous tissue was the result of bariatric surgery done in [place] in May,. He lost about 250 lbs and his current weight is about 440 lbs. He has a history of lower extremity lymphedema resulting from the extreme body weight and has persistent dependent edema in his medial thighs which aggravates his symptomatology. He denies trauma. He denies fever. Both areas bother him but the medial thighs are his initial priority as he has trouble with ambulating. We have received medical approval from his insurance company for his thigh surgery. Surgery 09/22/20 - Excision redundant skin and subcutaneous tissue left medial and posterior thigh with dermolipectomy. Wound care - Dakin's moistened gauze daily topped by ABDs and a double GRACIA wrap for compression. Today he denies fever and chills and states his appetite is good. Progress of Wound: Improved. 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: Status: Chronic Code(s): L97.122 - Non-pressure chronic ulcer of left thigh with fat layer exposed (3) Edema of both lower extremities: Status: Acute Code(s): R60.0 - Localized edema (4) History of bariatric surgery: Status: Chronic Code(s): Z98.84 - Bariatric surgery status (5) Excessive body weight loss: Status: Chronic Code(s): R63.4 - Abnormal weight loss (6) Excessive and redundant skin and subcutaneous tissue: Status: Chronic Code(s): L98.7 - Excessive and redundant skin and subcutaneous tissue (7) Intertrigo: Status: Chronic Code(s): L30.4 - Erythema intertrigo (8) Former smoker: Status: Chronic Code(s): Z87.891 - Personal history of nicotine dependence Plan: Continue Dakin's moistened Kerlix covered by ABDs daily. GRACIA wrap for compression.? We will do arterial and venous studies so we can obtain the appropriate amount of compression. Awaiting results. ? He is also interested in lymphedema pumps after he is done with the surgery on both thighs.? In the past he has never been able to have pumps that would fit him due to the redundant skin.? Encouraged increase protein and fluid intake due to the size and the amount of drainage from his wound.? Follow up in one week.? The left medial thigh ulcer is stable.? He is ready to proceed with the dermolipectomy right medial thigh at this time.? Will schedule the surgery under general anesthesia with a surgical observation overnight stay.? The left medial thigh ulcer is ready for operative debridement and skin grafting.? At the time of the dermolipectomy on the right, will obtain wound culture on the left and treat with antibiotics if positive.? After the right medial thigh wound has stabilized postop, can then discuss delayed closure with skin grafting for bilateral thigh ulcers.? Patient was in agreement.? Patient was informed of the risks and complications of the procedure including alternatives to surgery.? These were discussed with him personally.? He voices understanding and wishes to proceed. Charges/Coding Procedures Integumentary [id number]: [id number] Margarita subq tissue 20 sq cm/< Add On Codes: [id number] Margarita subq tissue add-on (x6) Physical Exam Const alert and oriented x3 General Appearance: cooperative HEENT normocephalic Head and Scalp: atraumatic Eyes PERRL Resp normal respiratory effort Effort and Inspection: able to speak in complete sentences Cardio regular rate GI GI Narrative: Obese Extremity Extremity Narrative: Bilateral lower extremity edema and lymphedema. Skin Wound Narrative: Left medial thigh ulcer is beefy pink. Bleeds well. Decreasing in size. Showing improvement. Neuro CN's II-XII intact bilaterally Psych Appearance: grossly normal Debridement Note Debridement Note Post-Debridement Measurements and Additional Note: Post-Debridement Measurements/Treatment WC - Nurse 2 - General Ulcer CM Notes Start: 01/11/21 14:27 Freq: Status: Active Protocol: Activity Type Activity Date Activity User E-Sign Co-Sign Detail Recorded Client Recorded Date Recorded By Document 01/11/21 14:38 JOHN [id number] 01/11/21 14:40 JOHN 01/11/21 14:38 Wound Center Nurse 2 #9 left medial groin/thigh -Time 14:38 -Correct Patient Yes -Correct Side, Site, Position Yes -Correct Procedure Yes -Procedure Performed Yes -Type of Procedure Debridement -Clinical Debridement Subcutaneous -Tissue Removed Subcutaneous -Post Debridement (cm) - Length 8 -Post Debridement (cm) - Width 17 -Post Debridement (cm) - Depth 0.1 -Total Square (Post) (cm) 136 -Area of Debridement (cm) - Length 8 -Area of Debridement (cm) - Width 17 -Total Square (Area) (cm) 136 -Tunneling No -Undermining/Tunneling No -Circular Undermining No -Wound/Ulcer Outcome Not Healed -Ulcer Cleansing Rinsed/ Irrigated with Saline -Foul Odor after Cleansing No -Bioengineered Tissue No -Bleeding Controlled with Pressure -Offloading No -Treatment Response Procedure Tolerated Well -Debridement - Subq, 1st 20sq cm Yes -Debridement, SubQ, ea addt'l 20sq cm 6 or part thereof Pain Scale: 0-10 Numeric Is Patient Pain Free? Yes - Nurse 3 - General Ulcer D/C NN Start: 01/11/21 14:27 Freq: Status: Active Protocol: Activity Type Activity Date Activity User E-Sign Co-Sign Detail Recorded Client Recorded Date Recorded By Document 01/11/21 14:45 DREAD [id number] 01/11/21 14:45 DREAD 01/11/21 14:45 Wound Care Nurse 3 #9 left medial groin/thigh -Ulcer Cleansing Rinsed/ Irrigated with Saline -Primary Dressing Covered/Secured with Dry Gauze, Secured with Tape Pain Scale: 0-10 Numeric Is Patient Pain Free? Yes - Visit Discharge Discharge Condition Stable Ambulatory Status Ambulatory Transportation Private Auto Wound debrided: Left medial thigh ulcer Laterality: Left Type of Debridement: Excisional debridement Anesthesia Used: 5% Lidocaine Gel Depth: Down to and including healthy tissue and in the subcutaneous layer Percentage of wound debrided: 100 Instrument Used: 7mm curette Tissue Removed: Subcutaneous tissue and slough Severity: Fat Layer Exposed Amount of bleeding with debridement: Moderate Bleeding Controlled with: Pressure and Compression and gauze Patient tolerated procedure: Patient tolerated procedure well
[2021-01-26 14:31] VITALS: BP 142/71; PULSE 62; RESP 20; TEMP 36.9; BMI 52.0
--- NOTE | 2021-01-26 17:00 | PN.PCM_ITS ---
History of Present Illness Date of Service: 01/26/21 Chief Complaint: Nonhealing ulcer left medial thigh. History of Wound: 45 year old man presents with areas of redundant skin and subcutaneous tissue in his bilateral medial thighs and abdominal panniculus with associated panniculitis. There is abdominal wall skin crease intertrigo and bilateral medial thigh intertrigo for which he uses powders for relief. This excess skin and subcutaneous tissue was the result of bariatric surgery done in [place] in May,. He lost about 250 lbs and his current weight is about 440 lbs. He has a history of lower extremity lymphedema resulting from the extreme body weight and has persistent dependent edema in his medial thighs which aggravates his symptomatology. He denies trauma. He denies fever. Both areas bother him but the medial thighs are his initial priority as he has trouble with ambulating. We have received medical approval from his insurance company for his thigh surgery. Surgery 09/22/20 - Excision redundant skin and subcutaneous tissue left medial and posterior thigh with dermolipectomy. Wound care - Dakin's moistened gauze daily topped by ABDs and a double JULES wrap for compression. Today he denies fever and chills and states his appetite is good. Progress of Wound: Improved. Objective Data Objective Data Vital Signs: Vital Signs Temp Pulse Resp BP 98.4 F 62 20 H 142/71 H 01/26/21 14:31 01/26/21 14:31 01/26/21 14:31 01/26/21 14:31 Oxygen Delivery Method Room Air Body Mass Index (BMI) 52.0 Physical Exam Const alert and oriented x3 HEENT normocephalic Head and Scalp: atraumatic Eyes PERRL Resp normal respiratory effort Cardio regular rate GI GI Narrative: Obese abdomen Extremity Extremity Narrative: Wearing walking boot on right foot General Extremity: edema bilateral lower extremity Details: moderate Skin Wound Narrative: Left medial thigh ulcer is beefy pink, decreased in size. Neuro CN's II-XII intact bilaterally Psych Appearance: grossly normal Debridement Note Debridement Note Post-Debridement Measurements and Additional Note: Post-Debridement Measurements/Treatment WC - Nurse 1 - General Ulcer Assessment Start: 01/11/21 14:27 Freq: Status: Active Protocol: WILLIAM Activity Type Activity Date Activity User E-Sign Co-Sign Detail Recorded Client Recorded Date Recorded By Document 01/11/21 14:27 KR [id number] 01/11/21 14:30 KR Document 01/26/21 14:31 MW [id number] 01/26/21 14:36 MW 01/11/21 01/26/21 14:27 14:31 - Today's Visit Information Type of service Follow-up Visit 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/FISH HATCHERY SPECIALIST (Physician/FISH HATCHERY SPECIALIST ) ) Arrival Mode Ambulatory Ambulatory Transfer Assistance None Accompanied by son Patient Identification Verified (Name & Yes Yes ) Patient Requires Transmission-Based No Precautions Height and Weight Body Mass Index (BMI) 52.0 52.0 BMI Classification Obese Obese Vital Signs Temperature (97.8 F-99.1 F) 99.0 F 98.4 F Temperature Source Temporal Temporal Pulse Rate (60-100) 56 L 62 Pulse Location Monitor Monitor Respiratory Rate (12-18) 20 H Respiratory rate source Observation Oxygen Delivery Method Room Air Blood Pressure (90/60-120/80) 165/96 H 142/71 H Blood Pressure Mean (mm Hg) 119 94 Source Monitor Monitor Position Sitting Sitting Blood Pressure Location Right Arm Right Arm History Since Last Visit- (Skip if this is Patient's initial visit) Have you changed medications since your No No last visit? Any new allergies or adverse reactions No No Had a fall/change in ADL's that may No No increase risk of falls Signs or symptoms of abuse and/or No No neglect since last visit Have you been in the hospital since your No No last visit? Has dressing in place as prescribed Yes Yes Has compression in place as prescribed Yes Yes Has offloadiing in place as prescribed N/A N/A Experienced any changes in pain level or No No management Left Footwear Regular Shoe Regular Shoe Right Footwear Regular Shoe Regular Shoe Pain Scale: 0-10 Numeric Is Patient Pain Free? Yes Yes - Nurse 1 - General Ulcer Measurement Start: 01/11/21 14:27 Freq: Status: Active Protocol: Activity Type Activity Date Activity User E-Sign Co-Sign Detail Recorded Client Recorded Date Recorded By Document 01/11/21 14:27 KR [id number] 01/11/21 14:30 KR Document 01/26/21 14:31 MW [id number] 01/26/21 14:36 MW 01/11/21 01/26/21 14:27 14:31 Wound Center Nurse 1 #9 left medial groin/thigh -Combined with other wound No -Current Size (cm) - Length 17.8 13.8 -Current Size (cm) - Width 7.5 7.0 -Current Size (cm) - Depth 0.1 0.1 -Total Square Cm 133.50 96.60 -Photo Taken No -Epithelialization None Present -Tunneling No -Undermining/Tunneling No -Circular Undermining No -Exudate Amt Large Large -Exudate Type Serosanguineous Serosanguineous -Wound Margin Distinct, Flat & Intact Outline Attached -Granulation Amt Large (67-100%) Medium (34-66%) -Granulation Quality Red Red -Slough/Fibrin Yes -Necrosis Amt None Present (0 Medium (34-66%) %) -Necrotic Tissue Type Eschar -Structure Exposed N/A -Texture (Josephine-wound Skin Appearance) Assessed, Assessed, Scarring Localized Edema ,Scarring -Moisture (Josephine-wound Skin Appearance) No Abnormality, Assessed,Dry/ Assessed Scaly -Color (Josephine-wound Skin Appearance) No Abnormality, No Abnormality, Assessed Assessed -Temperature (Josephine-wound Skin No Abnormality No Abnormality Appearance) (Pt Warm) (Pt Warm) -Tenderness on Palpation (Josephine-wound No Yes Skin Appearance) -Ulcer Cleansing soap and water Rinsed/ Irrigated with Saline -Foul Odor after Cleansing No No -Anesthetic Used 4% Lidocaine 4% Lidocaine Solution Solution Lower Limb Edema Present No WC - Nurse 2 - General Ulcer CM Notes Start: 01/11/21 14:27 Freq: Status: Active Protocol: Activity Type Activity Date Activity User E-Sign Co-Sign Detail Recorded Client Recorded Date Recorded By Document 01/11/21 14:38 [id number] 01/11/21 14:40 Document 01/26/21 14:42 [id number] 01/26/21 14:47 01/11/21 01/26/21 14:38 14:42 Wound Center Nurse 2 #9 left medial groin/thigh -Time 14:38 14:43 -Correct Patient Yes Yes -Correct Side, Site, Position Yes Yes -Correct Procedure Yes Yes -Procedure Performed Yes Yes -Type of Procedure Debridement Debridement -Clinical Debridement Subcutaneous Subcutaneous -Tissue Removed Subcutaneous Subcutaneous -Post Debridement (cm) - Length 8 15 -Post Debridement (cm) - Width 17 8 -Post Debridement (cm) - Depth 0.1 0.1 -Total Square (Post) (cm) 136 120 -Area of Debridement (cm) - Length 8 15 -Area of Debridement (cm) - Width 17 8 -Total Square (Area) (cm) 136 120 -Tunneling No No -Undermining/Tunneling No No -Circular Undermining No No -Wound/Ulcer Outcome Not Healed Not Healed -Ulcer Cleansing Rinsed/ Rinsed/ Irrigated with Irrigated with Saline Saline -Foul Odor after Cleansing No No -Bioengineered Tissue No No -Bleeding Controlled with Pressure Pressure -Offloading No No -Treatment Response Procedure Procedure Tolerated Well Tolerated Well -Debridement - Subq, 1st 20sq cm Yes Yes -Debridement, SubQ, ea addt'l 20sq cm 6 5 or part thereof Pain Scale: 0-10 Numeric Is Patient Pain Free? Yes Yes - Nurse 3 - General Ulcer D/C NN Start: 01/11/21 14:27 Freq: Status: Active Protocol: Activity Type Activity Date Activity User E-Sign Co-Sign Detail Recorded Client Recorded Date Recorded By Document 01/11/21 14:45 KR [id number] 01/11/21 14:45 KR Document 01/26/21 15:02 DL [id number] 01/26/21 15:04 DL 01/11/21 01/26/21 14:45 15:02 Wound Care Nurse 3 #9 left medial groin/thigh -Ulcer Cleansing Rinsed/ Wound Cleanser Irrigated with Saline -Negative Pressure Wound Therapy Discontinue -Other Dressing moist gauze -Primary Dressing Covered/Secured with Dry Gauze, Dry Gauze, Secured with Secured with Tape Tape -Other Covering jules Treatment Response Procedure Tolerated Well Pain Scale: 0-10 Numeric Is Patient Pain Free? Yes Yes - Visit Discharge Discharge Condition Stable Stable Ambulatory Status Ambulatory Ambulatory Transportation Private Auto Private Auto Wound debrided: Medial thigh Laterality: Left Type of Debridement: Excisional debridement Anesthesia Used: 5% Lidocaine Gel Depth: Down to and including healthy tissue and in the subcutaneous layer Percentage of wound debrided: 100 Instrument Used: 7mm curette Tissue Removed: Subcutaneous tissue and slough Severity: Fat Layer Exposed Amount of bleeding with debridement: Moderate Bleeding Controlled with: Pressure and Compression and gauze Patient tolerated procedure: Patient tolerated procedure well
[2021-02-01 13:24] VITALS: BP 145/69; PULSE 59; RESP 18; TEMP 37.3; BMI 52.0
--- NOTE | 2021-02-01 14:33 | PN.PCM_ITS ---
History of Present Illness Date of Service: 02/01/21 Chief Complaint: Nonhealing ulcer left medial thigh. History of Wound: 45 year old man presents with areas of redundant skin and subcutaneous tissue in his bilateral medial thighs and abdominal panniculus with associated panniculitis. There is abdominal wall skin crease intertrigo and bilateral medial thigh intertrigo for which he uses powders for relief. This excess skin and subcutaneous tissue was the result of bariatric surgery done in [place] in May,. He lost about 250 lbs and his current weight is about 440 lbs. He has a history of lower extremity lymphedema resulting from the extreme body weight and has persistent dependent edema in his medial thighs which aggravates his symptomatology. He denies trauma. He denies fever. Both areas bother him but the medial thighs are his initial priority as he has trouble with ambulating. We have received medical approval from his insurance company for his thigh surgery. Surgery 09/22/20 - Excision redundant skin and subcutaneous tissue left medial and posterior thigh with dermolipectomy. Wound care - Dakin's moistened gauze daily topped by ABDs and a double DESMOND wrap for compression. He has recently broken his right foot and is in a boot. Today he denies fever and chills and states his appetite is good. Progress of Wound: Improved. Objective Data Objective Data Vital Signs: Vital Signs Temp Pulse Resp BP 99.1 F 59 L 18 145/69 H 02/01/21 13:24 02/01/21 13:24 02/01/21 13:24 02/01/21 13:24 Oxygen Delivery Method Room Air Body Mass Index (BMI) 52.0 Charges/Coding Procedures Integumentary 111xxx-113xx: 99994 Margarita subq tissue 20 sq cm/< Add On Codes: 08566 Margarita subq tissue add-on (x4) Physical Exam Const alert and oriented x3 General Appearance: cooperative HEENT normocephalic Head and Scalp: atraumatic Eyes PERRL Lymph Lymphatic: Negative for no lymphedema noted Resp normal respiratory effort Cardio regular rate GI GI Narrative: Obese abdomen Extremity normal capillary refill Skin Wound Narrative: Left medial thigh ulcer is beefy pink and decreasing in size. Neuro CN's II-XII intact bilaterally Psych Thought Process: normal thought process Debridement Note Debridement Note Post-Debridement Measurements and Additional Note: Post-Debridement Measurements/Treatment WC - Nurse 1 - General Ulcer Assessment Start: 01/11/21 14:27 Freq: Status: Active Protocol: WILLIAM Activity Type Activity Date Activity User E-Sign Co-Sign Detail Recorded Client Recorded Date Recorded By Document 01/11/21 14:27 KR [id number] 01/11/21 14:30 KR Document 01/26/21 14:31 MW [id number] 01/26/21 14:36 MW Document 02/01/21 13:24 BMF [id number] 02/01/21 13:27 BMF 01/11/21 01/26/21 02/01/21 14:27 14:31 13:24 WC - Today's Visit Information Type of service Follow-up Visit Follow-up Visit 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/INSOLE ROUNDER (Physician/INSOLE ROUNDER (Physician/INSOLE ROUNDER ) ) ) Arrival Mode Ambulatory Ambulatory Ambulatory Transfer Assistance None Accompanied by son Patient Identification Verified (Name & Yes Yes Yes ) Patient Requires Transmission-Based No No Precautions Height and Weight Body Mass Index (BMI) 52.0 52.0 52.0 BMI Classification Obese Obese Obese Vital Signs Temperature (97.8 F-99.1 F) 99.0 F 98.4 F 99.1 F Temperature Source Temporal Temporal Temporal Pulse Rate (60-100) 56 L 62 59 L Pulse Location Monitor Monitor Monitor Respiratory Rate (12-18) 20 H 18 Respiratory rate source Observation Observation Oxygen Delivery Method Room Air Room Air Blood Pressure (90/60-120/80) 165/96 H 142/71 H 145/69 H Blood Pressure Mean (mm Hg) 119 94 94 Source Monitor Monitor Monitor Position Sitting Sitting Sitting Blood Pressure Location Right Arm Right Arm Left Arm History Since Last Visit- (Skip if this is Patient's initial visit) Have you changed medications since your No No No last visit? Any new allergies or adverse reactions No No No Had a fall/change in ADL's that may No No No increase risk of falls Signs or symptoms of abuse and/or No No No neglect since last visit Have you been in the hospital since your No No No last visit? Has dressing in place as prescribed Yes Yes Yes Has compression in place as prescribed Yes Yes N/A Has offloadiing in place as prescribed N/A N/A N/A Experienced any changes in pain level or No No No management Left Footwear Regular Shoe Regular Shoe Regular Shoe Right Footwear Regular Shoe Regular Shoe Regular Shoe Pain Scale: 0-10 Numeric Is Patient Pain Free? Yes Yes Yes WC - Nurse 1 - General Ulcer Measurement Start: 01/11/21 14:27 Freq: Status: Active Protocol: Activity Type Activity Date Activity User E-Sign Co-Sign Detail Recorded Client Recorded Date Recorded By Document 01/11/21 14:27 KR [id number] 01/11/21 14:30 KR Document 01/26/21 14:31 MW [id number] 01/26/21 14:36 MW Document 02/01/21 13:24 BMF [id number] 02/01/21 13:27 BMF 01/11/21 01/26/21 02/01/21 14:27 14:31 13:24 Wound Center Nurse 1 #9 left medial groin/thigh -Combined with other wound No No -Current Size (cm) - Length 17.8 13.8 12.7 -Current Size (cm) - Width 7.5 7.0 6.1 -Current Size (cm) - Depth 0.1 0.1 0.1 -Total Square Cm 133.50 96.60 77.47 -Photo Taken No No -Epithelialization None Present Small 1-33% -Tunneling No No -Undermining/Tunneling No No -Circular Undermining No No -Exudate Amt Large Large Large -Exudate Type Serosanguineous Serosanguineous Serosanguineous -Wound Margin Distinct, Flat & Intact Distinct, Outline Outline Attached Attached -Granulation Amt Large (67-100%) Medium (34-66%) Large (67-100%) -Granulation Quality Red Red Red -Slough/Fibrin Yes Yes -Necrosis Amt None Present (0 Medium (34-66%) Small (1-33%) %) -Necrotic Tissue Type Eschar Adherent Slough -Structure Exposed N/A -Texture (Josephine-wound Skin Appearance) Assessed, Assessed, Assessed, Scarring Localized Edema Scarring ,Scarring -Moisture (Josephine-wound Skin Appearance) No Abnormality, Assessed,Dry/ Assessed Assessed Scaly -Color (Josephine-wound Skin Appearance) No Abnormality, No Abnormality, Assessed Assessed Assessed -Temperature (Josephine-wound Skin No Abnormality No Abnormality No Abnormality Appearance) (Pt Warm) (Pt Warm) (Pt Warm) -Tenderness on Palpation (Josephine-wound No Yes No Skin Appearance) -Ulcer Cleansing soap and water Rinsed/ soapy water Irrigated with Saline -Foul Odor after Cleansing No No No -Anesthetic Used 4% Lidocaine 4% Lidocaine 4% Lidocaine Solution Solution Solution Lower Limb Edema Present No - Nurse 2 - General Ulcer CM Notes Start: 01/11/21 14:27 Freq: Status: Active Protocol: Activity Type Activity Date Activity User E-Sign Co-Sign Detail Recorded Client Recorded Date Recorded By Document 01/11/21 14:38 [id number] 01/11/21 14:40 Document 01/26/21 14:42 [id number] 01/26/21 14:47 Document 02/01/21 13:45 [id number] 02/01/21 13:49 01/11/21 01/26/21 02/01/21 14:38 14:42 13:45 Wound Center Nurse 2 #9 left medial groin/thigh -Time 14:38 14:43 13:45 -Correct Patient Yes Yes Yes -Correct Side, Site, Position Yes Yes Yes -Correct Procedure Yes Yes Yes -Procedure Performed Yes Yes Yes -Type of Procedure Debridement Debridement Debridement -Clinical Debridement Subcutaneous Subcutaneous Subcutaneous -Tissue Removed Subcutaneous Subcutaneous Subcutaneous -Post Debridement (cm) - Length 8 15 6 -Post Debridement (cm) - Width 17 8 13.8 -Post Debridement (cm) - Depth 0.1 0.1 0.1 -Total Square (Post) (cm) 136 120 82.8 -Area of Debridement (cm) - Length 8 15 6 -Area of Debridement (cm) - Width 17 8 13.8 -Total Square (Area) (cm) 136 120 82.8 -Tunneling No No No -Undermining/Tunneling No No No -Circular Undermining No No No -Wound/Ulcer Outcome Not Healed Not Healed Not Healed -Ulcer Cleansing Rinsed/ Rinsed/ Irrigated with Irrigated with Saline Saline -Foul Odor after Cleansing No No -Bioengineered Tissue No No No -Bleeding Controlled with Pressure Pressure Pressure -Offloading No No No -Treatment Response Procedure Procedure Procedure Tolerated Well Tolerated Well Tolerated Well -Debridement - Subq, 1st 20sq cm Yes Yes Yes -Debridement, SubQ, ea addt'l 20sq cm 6 5 4 or part thereof Pain Scale: 0-10 Numeric Is Patient Pain Free? Yes Yes Yes WC - Nurse 3 - General Ulcer D/C NN Start: 01/11/21 14:27 Freq: Status: Active Protocol: Activity Type Activity Date Activity User E-Sign Co-Sign Detail Recorded Client Recorded Date Recorded By Document 01/11/21 14:45 KR [id number] 01/11/21 14:45 KR Document 01/26/21 15:02 DL [id number] 01/26/21 15:04 DL Document 02/01/21 14:11 [facility] [id number] 02/01/21 14:13 [facility] 01/11/21 01/26/21 02/01/21 14:45 15:02 14:11 Wound Care Nurse 3 #9 left medial groin/thigh -Ulcer Cleansing Rinsed/ Wound Cleanser Rinsed/ Irrigated with Irrigated with Saline Saline -Foul Odor after Cleansing No -Negative Pressure Wound Therapy Discontinue -Primary Dressing Applied Other -Other Dressing moist gauze moist to dry -Primary Dressing Covered/Secured with Dry Gauze, Dry Gauze, Secured with Secured with Secured with Tape,Other Tape Tape -Other Covering desmond abd Left -Compression Wrap Desmond Wrap Treatment Response Procedure Procedure Tolerated Well Tolerated Well Pain Scale: 0-10 Numeric Is Patient Pain Free? Yes Yes Yes WC - Visit Discharge Discharge Condition Stable Stable Stable Ambulatory Status Ambulatory Ambulatory Ambulatory Transportation Private Auto Private Auto Private Auto Wound debrided: Left medial thigh ulcer Laterality: Left Type of Debridement: Excisional debridement Anesthesia Used: 5% Lidocaine Gel Depth: Down to and including healthy tissue and in the subcutaneous layer Percentage of wound debrided: 100 Instrument Used: 7mm curette Tissue Removed: Subcutaneous tissue and slough Severity: Fat Layer Exposed Amount of bleeding with debridement: Moderate Bleeding Controlled with: Pressure Patient tolerated procedure: Patient tolerated procedure well Assessment/Plan Assessment/Plan (1) Chronic ulcer of left thigh with fat layer exposed: CODE(S): L97.122 - Non-pressure chronic ulcer of left thigh with fat layer exposed (2) Edema of both lower extremities: CODE(S): R60.0 - Localized edema (3) Lymphedema: CODE(S): I89.0 - Lymphedema, not elsewhere classified (4) History of bariatric surgery: CODE(S): Z98.84 - Bariatric surgery status (5) Excessive body weight loss: CODE(S): R63.4 - Abnormal weight loss (6) Excessive and redundant skin and subcutaneous tissue: CODE(S): L98.7 - Excessive and redundant skin and subcutaneous tissue (7) Intertrigo: CODE(S): L30.4 - Erythema intertrigo (8) Former smoker: CODE(S): Z87.891 - Personal history of nicotine dependence (9) Panniculitis: CODE(S): M79.3 - Panniculitis, unspecified PLAN: Continue 0.25% Dakin's moistened Kerlix covered by ABDs daily. DESMOND wrap for compression.? Ordered arterial and venous studies so we can obtain the appropriate amount of compression, but he has not had them done, now that he has broken his right foot, we may need to wait to have them done.? ?He is also interested in lymphedema pumps after he is done with the surgery on both thighs.? In the past he has never been able to have pumps that would fit him due to the redundant skin.? Encouraged increase protein and fluid intake due to the size and the amount of drainage from his wound.? Follow up in one week.? The left medial thigh ulcer is stable.? He is ready to proceed with the dermolipectomy right medial thigh at this time.? Will schedule the surgery under general anesthesia with a surgical observation overnight stay.? The left medial thigh ulcer is ready for operative debridement and skin grafting.? At the time of the dermolipectomy on the right, will obtain wound culture on the left and treat with antibiotics if positive.? After the right medial thigh wound has stabilized postop, can then discuss delayed closure with skin grafting for bilateral thigh ulcers.? Patient was in agreement.? Patient was informed of the risks and complications of the procedure including alternatives to surgery.? These were discussed with him personally.? He voices understanding and wishes to proceed.? Due to his fractured right foot, we will wait until his foot is better before proceeding with surgery. Follow up in 2 weeks, due to holiday next week.
== END 2021-02-08 23:59 ==
LOC: WC 13:15
PROVIDERS: PCP Internal Medicine; Referring Provider Internal Medicine; Visit Provider Surgery
DX: L97.122 Non-pressure chronic ulcer of left thigh with fat layer exposed (principal); L98.7 Excessive and redundant skin and subcutaneous tissue; Z98.84 Bariatric surgery status; M79.3 Panniculitis, unspecified; L30.4 Erythema intertrigo; I89.0 Lymphedema, not elsewhere classified; Z68.43 Body mass index [BMI] 50.0-59.9, adult; E66.01 Morbid (severe) obesity due to excess calories; R60.0 Localized edema; Z87.891 Personal history of nicotine dependence
CPT/HCPCS: 11042; 11045

== ENCOUNTER 2021-03-01 14:00 | Outpatient (RCR) | payer MEDICAID, SELFPAY ==
[2021-02-09 00:26] VITALS: BP 145/69; PULSE 59; RESP 18; TEMP 37.3
[2021-02-22 13:23] VITALS: BP 159/99; PULSE 73; TEMP 36.9; BMI 52.0
--- NOTE | 2021-02-22 15:53 | PN.PCM_ITS ---
History of Present Illness Date of Service: 02/22/21 Chief Complaint: Nonhealing ulcer left medial thigh. History of Wound: 45 year old man presents with areas of redundant skin and subcutaneous tissue in his bilateral medial thighs and abdominal panniculus with associated panniculitis. There is abdominal wall skin crease intertrigo and bilateral medial thigh intertrigo for which he uses powders for relief. This excess skin and subcutaneous tissue was the result of bariatric surgery done in [place] in May,. He lost about 250 lbs and his current weight is about 440 lbs. He has a history of lower extremity lymphedema resulting from the extreme body weight and has persistent dependent edema in his medial thighs which aggravates his symptomatology. He denies trauma. He denies fever. Both areas bother him but the medial thighs are his initial priority as he has trouble with ambulating. We have received medical approval from his insurance company for his thigh surgery. Surgery 09/22/20 - Excision redundant skin and subcutaneous tissue left medial and posterior thigh with dermolipectomy. Wound care - Dakin's moistened gauze daily topped by ABDs and a double DESMOND wrap for compression. He has recently broken his right foot and is in a boot. Today he denies fever and chills and states his appetite is good. Progress of Wound: Improved. Objective Data Objective Data Vital Signs: Vital Signs Temp Pulse Resp BP 98.5 F 73 18 159/99 H 02/22/21 13:23 02/22/21 13:23 02/09/21 00:26 02/22/21 13:23 Body Mass Index (BMI) 52.0 Charges/Coding Procedures Integumentary 111xxx-113xx: 85167 Margarita subq tissue 20 sq cm/< Add On Codes: [id number] Margarita subq tissue add-on (x4) Physical Exam Const alert and oriented x3 General Appearance: cooperative HEENT normocephalic Head and Scalp: atraumatic Eyes PERRL Lymph Lymphatic: Negative for no lymphedema noted Lymphatic Narrative: Bilateral lower extremity edema and lymphedema. Resp normal respiratory effort Cardio regular rate GI GI Narrative: Obese abdomen Extremity normal capillary refill General Extremity: edema Skin Wound Narrative: Left medial thigh ulcer is beefy pink. Overall size is decreasing. Neuro CN's II-XII intact bilaterally Psych Appearance: grossly normal Debridement Note Debridement Note Post-Debridement Measurements and Additional Note: Post-Debridement Measurements/Treatment [facility] - Nurse 1 - General Ulcer Assessment Start: 02/22/21 13:23 Freq: Status: Active Protocol: WILLIAM Activity Type Activity Date Activity User E-Sign Co-Sign Detail Recorded Client Recorded Date Recorded By Document 02/22/21 13:23 [facility] [id number] 02/22/21 13:25 [facility] 02/22/21 13:23 WC - Today's Visit Information Type of service 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/BINDER STRIPPER HAND ) Arrival Mode Ambulatory Patient Identification Verified (Name & Yes ) Height and Weight Body Mass Index (BMI) 52.0 BMI Classification Obese Vital Signs Temperature (97.8 F-99.1 F) 98.5 F Temperature Source Temporal Pulse Rate (60-100) 73 Pulse Location Monitor Blood Pressure (90/60-120/80) 159/99 H Blood Pressure Mean (mm Hg) 119 Source Monitor Position Sitting Blood Pressure Location Right Arm History Since Last Visit- (Skip if this is Patient's initial visit) Have you changed medications since your No last visit? Any new allergies or adverse reactions No Had a fall/change in ADL's that may No increase risk of falls Signs or symptoms of abuse and/or No neglect since last visit Have you been in the hospital since your No last visit? Has dressing in place as prescribed Yes Has compression in place as prescribed N/A Has offloadiing in place as prescribed N/A Experienced any changes in pain level or No management Left Footwear Regular Shoe Right Footwear Regular Shoe Pain Scale: 0-10 Numeric Is Patient Pain Free? Yes [facility] - Nurse 1 - General Ulcer Measurement Start: 02/22/21 13:23 Freq: Status: Active Protocol: Activity Type Activity Date Activity User E-Sign Co-Sign Detail Recorded Client Recorded Date Recorded By Document 02/22/21 13:23 [facility] [id number] 02/22/21 13:25 [facility] 02/22/21 13:23 Wound Center Nurse 1 #9 left medial groin/thigh -Current Size (cm) - Length 14.3 -Current Size (cm) - Width 6.6 -Current Size (cm) - Depth 0.1 -Total Square Cm 94.38 -Exudate Amt Medium -Exudate Type Serosanguineous -Wound Margin Distinct, Outline Attached -Granulation Amt Large (67-100%) -Granulation Quality Red -Necrosis Amt None Present (0 %) -Texture (Josephine-wound Skin Appearance) Assessed, Scarring -Moisture (Josephine-wound Skin Appearance) No Abnormality, Assessed -Color (Josephine-wound Skin Appearance) No Abnormality, Assessed -Temperature (Josephine-wound Skin No Abnormality Appearance) (Pt Warm) -Tenderness on Palpation (Josephine-wound No Skin Appearance) -Ulcer Cleansing Rinsed/ Irrigated with Saline -Foul Odor after Cleansing No -Anesthetic Used 4% Lidocaine Solution WC - Nurse 2 - General Ulcer CM Notes Start: 02/22/21 13:23 Freq: Status: Active Protocol: Activity Type Activity Date Activity User E-Sign Co-Sign Detail Recorded Client Recorded Date Recorded By Document 02/22/21 14:20 PL [id number] 02/22/21 14:22 PL 02/22/21 14:20 Wound Center Nurse 2 -Time 13:45 -Correct Patient Yes -Correct Side, Site, Position Yes -Correct Procedure Yes -Procedure Performed Yes -Type of Procedure Debridement -Clinical Debridement Subcutaneous -Tissue Removed Subcutaneous -Post Debridement (cm) - Length 7 -Post Debridement (cm) - Width 14.3 -Post Debridement (cm) - Depth 0.1 -Total Square (Post) (cm) 100.1 -Area of Debridement (cm) - Length 7 -Area of Debridement (cm) - Width 14.3 -Total Square (Area) (cm) 100.1 -Tunneling No -Undermining/Tunneling No -Circular Undermining No -Wound/Ulcer Outcome Not Healed -Ulcer Cleansing Rinsed/ Irrigated with Saline -Foul Odor after Cleansing No -Bioengineered Tissue No -Bleeding Controlled with Pressure -Treatment Response Procedure Tolerated Well -Debridement - Subq, 1st 20sq cm Yes -Debridement, SubQ, ea addt'l 20sq cm 5 or part thereof Pain Scale: 0-10 Numeric Is Patient Pain Free? Yes [facility] - Nurse 3 - General Ulcer D/C NN Start: 02/22/21 13:23 Freq: Status: Active Protocol: Activity Type Activity Date Activity User E-Sign Co-Sign Detail Recorded Client Recorded Date Recorded By Document 02/22/21 13:57 [facility] [id number] 02/22/21 13:58 [facility] 02/22/21 13:57 Wound Care Nurse 3 #9 left medial groin/thigh -Ulcer Cleansing Rinsed/ Irrigated with Saline -Foul Odor after Cleansing No -Primary Dressing Applied Other -Other Dressing moist to dry drsg per d paulino auto camp attendant -Primary Dressing Covered/Secured with Secured with Tape Left -Compression Wrap Desmond Wrap Treatment Response Procedure Tolerated Well Pain Scale: 0-10 Numeric Is Patient Pain Free? Yes WC - Visit Discharge Discharge Condition Stable Ambulatory Status Ambulatory Transportation Private Auto Wound debrided: Left medial thigh ulcer Type of Debridement: Excisional debridement Anesthesia Used: 5% Lidocaine Gel Depth: Down to and including healthy tissue and in the subcutaneous layer Percentage of wound debrided: 100 Instrument Used: 7mm curette Tissue Removed: Subcutaneous tissue and slough Severity: Fat Layer Exposed Amount of bleeding with debridement: Moderate Bleeding Controlled with: Pressure and Compression and gauze Patient tolerated procedure: Patient tolerated procedure well Assessment/Plan Assessment/Plan (1) Chronic ulcer of left thigh with fat layer exposed: CODE(S): L97.122 - Non-pressure chronic ulcer of left thigh with fat layer exposed (2) Edema of both lower extremities: CODE(S): R60.0 - Localized edema (3) Lymphedema: CODE(S): I89.0 - Lymphedema, not elsewhere classified (4) History of bariatric surgery: CODE(S): Z98.84 - Bariatric surgery status (5) Excessive body weight loss: CODE(S): R63.4 - Abnormal weight loss (6) Excessive and redundant skin and subcutaneous tissue: CODE(S): L98.7 - Excessive and redundant skin and subcutaneous tissue (7) Intertrigo: CODE(S): L30.4 - Erythema intertrigo (8) Former smoker: CODE(S): Z87.891 - Personal history of nicotine dependence (9) Panniculitis: CODE(S): M79.3 - Panniculitis, unspecified PLAN: Continue 0.25% Dakin's moistened Kerlix covered by ABDs daily. DESMOND wrap for compression. Ordered arterial and venous studies so we can obtain the appropriate amount of compression, but he has not had them done, now that he has broken his right foot, we may need to wait to have them done. He is also interested in lymphedema pumps after he is done with the surgery on both thighs. In the past he has never been able to have pumps that would fit him due to the redundant skin. Encouraged increase protein and fluid intake due to the size and the amount of drainage from his wound. Follow up in one week. The left medial thigh ulcer is stable. He is ready to proceed with the dermolipectomy right medial thigh at this time. Will schedule the surgery under general anesthesia with a surgical observation overnight stay. The left medial thigh ulcer is ready for operative debridement and skin grafting. At the time of the dermolipectomy on the right, will obtain wound culture on the left and treat with antibiotics if positive. After the right medial thigh wound has stabilized postop, can then discuss delayed closure with skin grafting for bilateral thigh ulcers. Patient was in agreement. Patient was informed of the risks and complications of the procedure including alternatives to surgery. These were discussed with him personally. He voices understanding and wishes to proceed. Due to his fractured right foot, we will wait until his foot is better before proceeding with surgery. Follow up in 1 weeks.
[2021-03-01 13:47] VITALS: BP 127/77; PULSE 63; RESP 20; TEMP 36.6; BMI 52.0
--- NOTE | 2021-03-01 14:44 | PN.PCM_ITS ---
History of Present Illness Date of Service: 03/01/21 Chief Complaint: Nonhealing ulcer left medial thigh. History of Wound: 45 year old man presents with areas of redundant skin and subcutaneous tissue in his bilateral medial thighs and abdominal panniculus with associated panniculitis. There is abdominal wall skin crease intertrigo and bilateral medial thigh intertrigo for which he uses powders for relief. This excess skin and subcutaneous tissue was the result of bariatric surgery done in [place] in May,. He lost about 250 lbs and his current weight is about 440 lbs. He has a history of lower extremity lymphedema resulting from the extreme body weight and has persistent dependent edema in his medial thighs which aggravates his symptomatology. He denies trauma. He denies fever. Both areas bother him but the medial thighs are his initial priority as he has trouble with ambulating. We have received medical approval from his insurance company for his thigh surgery. Surgery 09/22/20 - Excision redundant skin and subcutaneous tissue left medial and posterior thigh with dermolipectomy. Wound care - Dakin's moistened gauze daily topped by ABDs and a double DESMOND wrap for compression. He has recently broken his right foot and is in a boot. Today he denies fever and chills and states his appetite is good. Progress of Wound: Improved. Objective Data Objective Data Vital Signs: Vital Signs Temp Pulse Resp BP 98 F 63 20 H 127/77 H 03/01/21 13:47 03/01/21 13:47 03/01/21 13:47 03/01/21 13:47 Body Mass Index (BMI) 52.0 Charges/Coding Procedures Integumentary 111xxx-113xx: 03998 Margarita subq tissue 20 sq cm/< Add On Codes: 07009 Margarita subq tissue add-on (x4) Physical Exam Const alert and oriented x3 General Appearance: cooperative HEENT normocephalic Head and Scalp: atraumatic Eyes PERRL Lymph Lymphatic: no lymphedema noted Resp normal respiratory effort Cardio regular rate GI Palpation: soft Extremity normal capillary refill General Extremity: edema Skin Wound Narrative: Left medial thigh ulcer is beefy pink. Decreasing in size. Neuro CN's II-XII intact bilaterally Psych Appearance: grossly normal Debridement Note Debridement Note Post-Debridement Measurements and Additional Note: Post-Debridement Measurements/Treatment WC - Nurse 1 - General Ulcer Assessment Start: 02/22/21 13:23 Freq: Status: Active Protocol: WILLIAM Activity Type Activity Date Activity User E-Sign Co-Sign Detail Recorded Client Recorded Date Recorded By Document 02/22/21 13:23 BM [id number] 02/22/21 13:25 BM Document 03/01/21 13:47 DL [id number] 03/01/21 13:55 DL 02/22/21 03/01/21 13:23 13:47 - Today's Visit Information Type of service Follow-up Visit 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/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 (Physician/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 REPAIRER ) ) Arrival Mode Ambulatory Ambulatory Transfer Assistance None Patient Identification Verified (Name & Yes Yes ) Patient Requires Transmission-Based No Precautions Height and Weight Body Mass Index (BMI) 52.0 52.0 BMI Classification Obese Obese Vital Signs Temperature (97.8 F-99.1 F) 98.5 F 98 F Temperature Source Temporal Temporal Pulse Rate (60-100) 73 63 Pulse Location Monitor Monitor Respiratory Rate (12-18) 20 H Respiratory rate source Observation Blood Pressure (90/60-120/80) 159/99 H 127/77 H Blood Pressure Mean (mm Hg) 119 93 Source Monitor Monitor Position Sitting Blood Pressure Location Right Arm History Since Last Visit- (Skip if this is Patient's initial visit) Have you changed medications since your No No last visit? Any new allergies or adverse reactions No No Had a fall/change in ADL's that may No No increase risk of falls Signs or symptoms of abuse and/or No No neglect since last visit Have you been in the hospital since your No No last visit? Has dressing in place as prescribed Yes Yes Has compression in place as prescribed N/A N/A Has offloadiing in place as prescribed N/A Yes Experienced any changes in pain level or No No management Left Footwear Regular Shoe Right Footwear Regular Shoe Pain Scale: 0-10 Numeric Is Patient Pain Free? Yes Yes - Nurse 1 - General Ulcer Measurement Start: 02/22/21 13:23 Freq: Status: Active Protocol: Activity Type Activity Date Activity User E-Sign Co-Sign Detail Recorded Client Recorded Date Recorded By Document 02/22/21 13:23 BM [id number] 02/22/21 13:25 [facility] Document 03/01/21 13:47 DL [id number] 03/01/21 13:55 DL 02/22/21 03/01/21 13:23 13:47 Wound Center Nurse 1 #9 left medial groin/thigh -Current Size (cm) - Length 14.3 13.5 -Current Size (cm) - Width 6.6 6.1 -Current Size (cm) - Depth 0.1 0.1 -Total Square Cm 94.38 82.35 -Photo Taken No -Exudate Amt Medium Medium -Exudate Type Serosanguineous Serosanguineous -Wound Margin Distinct, Distinct, Outline Outline Attached Attached -Granulation Amt Large (67-100%) Large (67-100%) -Granulation Quality Red Red -Necrosis Amt None Present (0 Medium (34-66%) %) -Necrotic Tissue Type Adherent Slough -Structure Exposed N/A -Texture (Josephine-wound Skin Appearance) Assessed, Scarring Scarring -Moisture (Josephine-wound Skin Appearance) No Abnormality, No Abnormality Assessed -Color (Josephine-wound Skin Appearance) No Abnormality, No Abnormality Assessed -Temperature (Josephine-wound Skin No Abnormality No Abnormality Appearance) (Pt Warm) (Pt Warm) -Tenderness on Palpation (Josephine-wound No No Skin Appearance) -Ulcer Cleansing Rinsed/ Wound Cleanser Irrigated with Saline -Foul Odor after Cleansing No No -Anesthetic Used 4% Lidocaine 4% Lidocaine Solution Solution WC - Nurse 2 - General Ulcer CM Notes Start: 02/22/21 13:23 Freq: Status: Active Protocol: Activity Type Activity Date Activity User E-Sign Co-Sign Detail Recorded Client Recorded Date Recorded By Document 02/22/21 14:20 REJI [id number] 02/22/21 14:22 PL Document 03/01/21 14:08 [id number] 03/01/21 14:17 02/22/21 03/01/21 14:20 14:08 Wound Center Nurse 2 #9 left medial groin/thigh -Time 13:45 14:09 -Correct Patient Yes Yes -Correct Side, Site, Position Yes Yes -Correct Procedure Yes Yes -Procedure Performed Yes Yes -Type of Procedure Debridement Debridement -Clinical Debridement Subcutaneous Subcutaneous -Tissue Removed Subcutaneous Subcutaneous -Post Debridement (cm) - Length 7 14 -Post Debridement (cm) - Width 14.3 6 -Post Debridement (cm) - Depth 0.1 0.1 -Total Square (Post) (cm) 100.1 84 -Area of Debridement (cm) - Length 7 14 -Area of Debridement (cm) - Width 14.3 6 -Total Square (Area) (cm) 100.1 84 -Tunneling No No -Undermining/Tunneling No No -Circular Undermining No No -Wound/Ulcer Outcome Not Healed Not Healed -Ulcer Cleansing Rinsed/ Rinsed/ Irrigated with Irrigated with Saline Saline -Foul Odor after Cleansing No No -Bioengineered Tissue No No -Bleeding Controlled with Pressure Pressure -Offloading No -Treatment Response Procedure Procedure Tolerated Well Tolerated Well -Debridement - Subq, 1st 20sq cm Yes Yes -Debridement, SubQ, ea addt'l 20sq cm 5 4 or part thereof Pain Scale: 0-10 Numeric Is Patient Pain Free? Yes Yes - Nurse 3 - General Ulcer D/C NN Start: 02/22/21 13:23 Freq: Status: Active Protocol: Activity Type Activity Date Activity User E-Sign Co-Sign Detail Recorded Client Recorded Date Recorded By Document 02/22/21 13:57 [facility] [id number] 02/22/21 13:58 [facility] Document 03/01/21 14:24 [id number] 03/01/21 14:26 DL 02/22/21 03/01/21 13:57 14:24 Wound Care Nurse 3 #9 left medial groin/thigh -Ulcer Cleansing Rinsed/ Rinsed/ Irrigated with Irrigated with Saline Saline -Foul Odor after Cleansing No No -Primary Dressing Applied Other -Other Dressing moist to dry moist gauze drsg 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 Yes Yes - Visit Discharge Discharge Condition Stable Stable Ambulatory Status Ambulatory Ambulatory Transportation Private Auto Private Auto Notes: Pt to resume Dakins at home Wound debrided: medial thigh ulcer Laterality: Left Type of Debridement: Excisional debridement Anesthesia Used: 5% Lidocaine Gel Depth: Down to and including healthy tissue and in the subcutaneous layer Percentage of wound debrided: 100 Instrument Used: 7mm curette Tissue Removed: Subcutaneous tissue and slough Severity: Fat Layer Exposed Amount of bleeding with debridement: Moderate Bleeding Controlled with: Pressure and Compression and gauze Patient tolerated procedure: Patient tolerated procedure well Assessment/Plan Assessment/Plan (1) Chronic ulcer of left thigh with fat layer exposed: CODE(S): L97.122 - Non-pressure chronic ulcer of left thigh with fat layer exposed (2) Edema of both lower extremities: CODE(S): R60.0 - Localized edema (3) Lymphedema: CODE(S): I89.0 - Lymphedema, not elsewhere classified (4) History of bariatric surgery: CODE(S): Z98.84 - Bariatric surgery status (5) Excessive body weight loss: CODE(S): R63.4 - Abnormal weight loss (6) Excessive and redundant skin and subcutaneous tissue: CODE(S): L98.7 - Excessive and redundant skin and subcutaneous tissue (7) Intertrigo: CODE(S): L30.4 - Erythema intertrigo (8) Former smoker: CODE(S): Z87.891 - Personal history of nicotine dependence (9) Panniculitis: CODE(S): M79.3 - Panniculitis, unspecified PLAN: Continue 0.25% Dakin's moistened Kerlix covered by ABDs daily. DESMOND wrap for compression. Ordered arterial and venous studies so we can obtain the appropriate amount of compression, but he has not had them done, now that he has broken his right foot, we may need to wait to have them done. He is also interested in lymphedema pumps after he is done with the surgery on both thighs. In the past he has never been able to have pumps that would fit him due to the redundant skin. Encouraged increase protein and fluid intake due to the size and the amount of drainage from his wound. Follow up in one week. The left medial thigh ulcer is stable. He is ready to proceed with the dermolipectomy right medial thigh at this time. Will schedule the surgery under general anesthesia with a surgical observation overnight stay. The left medial thigh ulcer is ready for operative debridement and skin grafting. At the time of the dermolipectomy on the right, will obtain wound culture on the left and treat with antibiotics if positive. After the right medial thigh wound has stabilized postop, can then discuss delayed closure with skin grafting for bilateral thigh ulcers. Patient was in agreement. Patient was informed of the risks and complications of the procedure including alternatives to surgery. These were discussed with him personally. He voices understanding and wishes to proceed. Due to his fractured right foot, we will wait until his foot is better before proceeding with surgery. Follow up in 3 weeks due to my vacation day next week and the March 14 holiday the following week.
== END 2021-03-10 23:59 ==
LOC: WC 14:00
PROVIDERS: PCP Internal Medicine; Referring Provider Internal Medicine; Visit Provider Surgery
DX: L97.122 Non-pressure chronic ulcer of left thigh with fat layer exposed (principal); L98.7 Excessive and redundant skin and subcutaneous tissue; L30.4 Erythema intertrigo; Z98.84 Bariatric surgery status; I89.0 Lymphedema, not elsewhere classified; R60.0 Localized edema; Z87.891 Personal history of nicotine dependence; M79.3 Panniculitis, unspecified
CPT/HCPCS: 11042; 11045

== ENCOUNTER 2021-03-29 13:04 | Outpatient (RCR) | payer MEDICAID, SELFPAY ==
[2021-03-11 00:21] VITALS: BP 127/77; PULSE 63; RESP 20; TEMP 36.6
[2021-03-25 11:24] VITALS: BMI 54.5
[2021-03-29 13:15] VITALS: BP 155/91; PULSE 58; TEMP 36.8; BMI 54.5
--- NOTE | 2021-03-29 14:18 | PCM.WC.PN ---
History of Present Illness Date of Service: 03/29/21 Chief Complaint: Nonhealing ulcer left medial thigh. History of Wound: 45 year old man presents with areas of redundant skin and subcutaneous tissue in his bilateral medial thighs and abdominal panniculus with associated panniculitis. There is abdominal wall skin crease intertrigo and bilateral medial thigh intertrigo for which he uses powders for relief. This excess skin and subcutaneous tissue was the result of bariatric surgery done in [place] in May,. He lost about 250 lbs and his current weight is about 440 lbs. He has a history of lower extremity lymphedema resulting from the extreme body weight and has persistent dependent edema in his medial thighs which aggravates his symptomatology. He denies trauma. He denies fever. Both areas bother him but the medial thighs are his initial priority as he has trouble with ambulating. We have received medical approval from his insurance company for his thigh surgery. Surgery 09/22/20 - Excision redundant skin and subcutaneous tissue left medial and posterior thigh with dermolipectomy. Wound care - Stop Dakin's moistened gauze and start Fibracol plus daily topped by ABD and a GRACIA wrap for compression. He has recently broken his right foot and is in a boot. Today he denies fever and chills and states his appetite is good. Progress of Wound: Improved Objective Data Objective Data Vital Signs: Vital Signs Temp Pulse Resp BP 98.2 F 58 L 20 H 155/91 H 03/29/21 13:15 03/29/21 13:15 03/11/21 00:21 03/29/21 13:15 Body Mass Index (BMI) 54.5 Charges/Coding Procedures Integumentary 111xxx-113xx: 70631 Margarita subq tissue 20 sq cm/< Add On Codes: 88356 Margarita subq tissue add-on (x4) Physical Exam Const alert and oriented x3 General Appearance: cooperative HEENT normocephalic Eyes PERRL Lymph Lymphatic: no lymphedema noted Lymphatic Narrative: Bilateral lower extremity lymphedema Resp normal respiratory effort Cardio regular rate GI non-tender Palpation: soft Extremity normal capillary refill General Extremity: edema Skin Wound Narrative: Left medial thigh ulcer with increased slough around the edges. Wound bed with granulation tissue present. 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 Any new allergies or adverse reactions No Had a fall/change in ADL's that may No increase risk of falls Signs or symptoms of abuse and/or No neglect since last visit Have you been in the hospital since your No last visit? Has dressing in place as prescribed Yes Has compression in place as prescribed N/A Has offloadiing in place as prescribed N/A Experienced any changes in pain level or No management Left Footwear Regular Shoe Right Footwear Regular Shoe Pain Scale: 0-10 Numeric Is Patient Pain Free? Yes - Nurse 1 - General Ulcer Measurement Start: 03/29/21 13:14 Freq: Status: Active Protocol: Activity Type Activity Date Activity User E-Sign Co-Sign Detail Recorded Client Recorded Date Recorded By Document 03/29/21 13:15 KR [id number] 03/29/21 13:21 DREAD 03/29/21 13:15 Wound Center Nurse 1 #9 left medial groin/thigh -Current Size (cm) - Length 13.8 -Current Size (cm) - Width 4.3 -Current Size (cm) - Depth 0.1 -Total Square Cm 59.34 -Exudate Amt Small -Exudate Type Serosanguineous -Wound Margin Distinct, Outline Attached -Granulation Amt Large (67-100%) -Granulation Quality Red -Necrosis Amt None Present (0 %) -Texture (Josephine-wound Skin Appearance) Assessed, Scarring -Moisture (Josephine-wound Skin Appearance) No Abnormality, Assessed -Color (Josephine-wound Skin Appearance) No Abnormality, Assessed -Temperature (Josephine-wound Skin No Abnormality Appearance) (Pt Warm) -Tenderness on Palpation (Josephine-wound No Skin Appearance) -Ulcer Cleansing Rinsed/ Irrigated with Saline -Foul Odor after Cleansing No -Anesthetic Used 4% Lidocaine Solution WC - Nurse 2 - General Ulcer CM Notes Start: 03/29/21 13:14 Freq: Status: Active Protocol: Activity Type Activity Date Activity User E-Sign Co-Sign Detail Recorded Client Recorded Date Recorded By Document 03/29/21 13:28 JOHN [id number] 03/29/21 13:34 JOHN 03/29/21 13:28 Wound Center Nurse 2 -Time 13:29 -Correct Patient Yes -Correct Side, Site, Position Yes -Correct Procedure Yes -Procedure Performed Yes -Type of Procedure Debridement -Clinical Debridement Subcutaneous -Tissue Removed Subcutaneous -Post Debridement (cm) - Length 12.8 -Post Debridement (cm) - Width 6.8 -Post Debridement (cm) - Depth 0.2 -Total Square (Post) (cm) 87.04 -Area of Debridement (cm) - Length 12.8 -Area of Debridement (cm) - Width 6.8 -Total Square (Area) (cm) 87.04 -Tunneling No -Undermining/Tunneling No -Circular Undermining No -Wound/Ulcer Outcome Not Healed -Ulcer Cleansing Rinsed/ Irrigated with Saline -Foul Odor after Cleansing No -Bioengineered Tissue No -Bleeding Controlled with Pressure -Offloading No -Treatment Response Procedure Tolerated Well -Debridement - Subq, 1st 20sq cm Yes -Debridement, SubQ, ea addt'l 20sq cm 4 or part thereof Pain Scale: 0-10 Numeric Is Patient Pain Free? Yes ACOSTA - Nurse 3 - General Ulcer D/C NN Start: 03/29/21 13:14 Freq: Status: Active Protocol: Activity Type Activity Date Activity User E-Sign Co-Sign Detail Recorded Client Recorded Date Recorded By Document 03/29/21 13:40 DREAD [id number] 03/29/21 13:41 DREAD 03/29/21 13:40 Wound Care Nurse 3 #9 left medial groin/thigh -Ulcer Cleansing Rinsed/ Irrigated with Saline -Primary Dressing Applied Fibracol Plus 4x4 -Primary Dressing Covered/Secured with Dry Gauze, Secured with Tape -Fibracol Plus 4x4 1 Pain Scale: 0-10 Numeric Is Patient Pain Free? Yes WC - Visit Discharge Discharge Condition Stable Ambulatory Status Ambulatory Transportation Private Auto Accompanied by self Wound debrided: Medial thigh ulcer Laterality: Left Type of Debridement: Excisional debridement Anesthesia Used: 5% Lidocaine Gel Depth: Down to and including healthy tissue and in the subcutaneous layer Percentage of wound debrided: 100 Instrument Used: 7mm curette Tissue Removed: Subcutaneous tissue and slough Severity: Fat Layer Exposed Amount of bleeding with debridement: Moderate Bleeding Controlled with: Pressure and Compression and gauze Patient tolerated procedure: Patient tolerated procedure well Assessment/Plan Assessment/Plan (1) Chronic ulcer of left thigh with fat layer exposed: CODE(S): L97.122 - Non-pressure chronic ulcer of left thigh with fat layer exposed (2) Excessive body weight loss: CODE(S): R63.4 - Abnormal weight loss (3) Edema of both lower extremities: CODE(S): R60.0 - Localized edema (4) Excessive and redundant skin and subcutaneous tissue: CODE(S): L98.7 - Excessive and redundant skin and subcutaneous tissue (5) Intertrigo: CODE(S): L30.4 - Erythema intertrigo (6) Panniculitis: CODE(S): M79.3 - Panniculitis, unspecified (7) Abdominal panniculus: CODE(S): E65 - Localized adiposity (8) Former smoker: CODE(S): Z87.891 - Personal history of nicotine dependence PLAN: Stop 0.25% Dakin's moistened Kerlix and start Fibracol plus covered by ABDs daily. GRACIA wrap for compression. Ordered arterial and venous studies so we can obtain the appropriate amount of compression, but he has not had them done, now that he has broken his right foot, we may need to wait to have them done. He is also interested in lymphedema pumps after he is done with the surgery on both thighs. In the past he has never been able to have pumps that would fit him due to the redundant skin. Encouraged increase protein and fluid intake due to the size and the amount of drainage from his wound. The left medial thigh ulcer is stable. He is ready to proceed with the dermolipectomy right medial thigh at this time. Will schedule the surgery under general anesthesia with a surgical observation overnight stay. The left medial thigh ulcer is ready for operative debridement and skin grafting. At the time of the dermolipectomy on the right, will obtain wound culture on the left and treat with antibiotics if positive. After the right medial thigh wound has stabilized postop, can then discuss delayed closure with skin grafting for bilateral thigh ulcers. Patient was in agreement. Patient was informed of the risks and complications of the procedure including alternatives to surgery. These were discussed with him personally. He voices understanding and wishes to proceed. Due to his fractured right foot, we will wait until his foot is better before proceeding with surgery. Follow up in 2 weeks.
== END 2021-04-10 23:59 ==
LOC: WC 13:04
PROVIDERS: PCP Internal Medicine; Referring Provider Internal Medicine; Visit Provider Nurse Practitioner Family
DX: L97.122 Non-pressure chronic ulcer of left thigh with fat layer exposed (principal); R60.0 Localized edema; L98.7 Excessive and redundant skin and subcutaneous tissue; L30.4 Erythema intertrigo; M79.3 Panniculitis, unspecified; E65 Localized adiposity; Z87.891 Personal history of nicotine dependence
CPT/HCPCS: 11042; 11045

== ENCOUNTER → 2021-04-21 11:46 | Outpatient (CLI) | payer MEDICAID, SELFPAY ==
[2021-04-21 11:15] VITALS: BMI 54.5
[2021-04-21 15:19] LABS: Absolute Neutrophil Count 4.5 X10^3/uL (2.0-7.7); Basophil# 0.03 X10^3/uL; Basophil% 0.5 % (0-1); Eosinophil# 0.11 X10^3/uL; Eosinophils% 1.8 % (0-5); Hematocrit 39.7 % (40-54); Hemoglobin 12.7 g/dL (13.0-16.5); Lymphocyte % 17.7 % (19-41); Mean Corpuscular Hgb 24.2 pg (27.0-32.0); Mean Corpuscular Volume 75.6 fL (80-94); Mean Platelet Vol. 10.4 fl (6.2-12.0); Monocyte# 0.49 X10^3/uL; Monocyte% 7.9 % (0-10); NRBC Flagged by Analyzer 0 % (0-5); Neutrophil # 4.47 X10^3/uL (2.7-7.7); Neutrophil % 71.6 % (47-70); Platelet Count 250 K/mm3 (150-450); RBC Distribution Width CV 18.2 % (11.6-14.6); RBC Distribution Width SD 48.3 fl (35.1-43.9); Red Blood Count 5.25 M/mm3 (4.6-6.2); White Blood Count 6.2 K/mm3 (4.4-11.0)
[2021-04-21 15:47] LABS: ALB/GLOB Ratio 0.9 RATIO (0.9-2.4); AST(SGOT) 17 U/L (15-37); Alanine Aminotransfer ALT/SGPT 26 U/L (16-61); Albumin, Serum 3.7 g/dL (3.2-5.0); Alkaline Phosphatase 90 U/L (45-117); Anion Gap 6 (5-15); BUN 18 mg/dL (7-18); BUN/Creat Ratio 18.3 RATIO (10-20); Chloride 104 mmol/L (98-107); Cholesterol 156 mg/dL (200); Creatinine, Serum 0.98 mg/dL (0.70-1.30); EST Glomerular Filtration Rate 87 mL/min (>60); Est Glom Filt Rate - Afr Amer 105 mL/min (>60); Globulin 4.3 g/dL (2.2-4.2); Glucose 93 mg/dL (74-106); High Density Lipoprotein 39 mg/dL; Potassium 4.4 mmol/L (3.5-5.1); Sodium Level 138 mmol/L (136-145); Triglycerides 94 mg/dL; Very Low Density Lipoprotein 19 mg/dL (5-40)
== END ==
PROVIDERS: PCP Internal Medicine; Referring Provider Nurse Practitioner Family; Visit Provider Nurse Practitioner Family
DX: E78.5 Hyperlipidemia, unspecified (principal); E65 Localized adiposity; E66.01 Morbid (severe) obesity due to excess calories; I10 Essential (primary) hypertension
CPT/HCPCS: 36415; 80053; 80061; 84443; 85025

== ENCOUNTER 2021-04-26 13:15 | Outpatient (RCR) | payer MEDICAID, SELFPAY ==
[2021-04-11 00:25] VITALS: BP 155/91; PULSE 58; RESP 20; TEMP 36.8
[2021-04-12 13:21] VITALS: BP 126/84; PULSE 62; RESP 22; TEMP 37; BMI 54.5
--- NOTE | 2021-04-12 15:09 | PN.PCM_ITS ---
History of Present Illness Date of Service: 04/12/21 Chief Complaint: Nonhealing ulcer left medial thigh. History of Wound: 45 year old man presents with areas of redundant skin and subcutaneous tissue in his bilateral medial thighs and abdominal panniculus with associated panniculitis. There is abdominal wall skin crease intertrigo and bilateral medial thigh intertrigo for which he uses powders for relief. This excess skin and subcutaneous tissue was the result of bariatric surgery done in [place] in May,. He lost about 250 lbs and his current weight is about 440 lbs. He has a history of lower extremity lymphedema resulting from the extreme body weight and has persistent dependent edema in his medial thighs which aggravates his symptomatology. He denies trauma. He denies fever. Both areas bother him but the medial thighs are his initial priority as he has trouble with ambulating. We have received medical approval from his insurance company for his thigh surgery. Surgery 09/22/20 - Excision redundant skin and subcutaneous tissue left medial and posterior thigh with dermolipectomy. Wound care - Fibracol plus is on back order. We will start Aquacel?AG daily topped by ABD and a GRACIA wrap for compression. He has recently broken his right foot and is in a boot. Today he denies fever and chills and states his appetite is good. Progress of Wound: Improved Objective Data Objective Data Vital Signs: Vital Signs Temp Pulse Resp BP 98.6 F 62 22 H 126/84 H 04/12/21 13:21 04/12/21 13:21 04/12/21 13:21 04/12/21 13:21 Body Mass Index (BMI) 54.5 Charges/Coding Procedures Integumentary 111xxx-113xx: 27384 Margarita subq tissue 20 sq cm/< Add On Codes: [id number] Margarita subq tissue add-on (x4) Physical Exam Const alert and oriented x3 General Appearance: cooperative HEENT normocephalic Head and Scalp: atraumatic Eyes PERRL Lymph Lymphatic: Negative for no lymphedema noted Lymphatic Narrative: Bilateral lower extremity lymphedema Resp normal respiratory effort Cardio regular rate GI non-tender Extremity normal capillary refill Skin Wound Narrative: Left medial thigh ulcer is beefy pink, decreasing in size. 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 Any new allergies or adverse reactions No Had a fall/change in ADL's that may No increase risk of falls Signs or symptoms of abuse and/or No neglect since last visit Have you been in the hospital since your No last visit? Has dressing in place as prescribed Yes Has compression in place as prescribed Yes Has offloadiing in place as prescribed N/A Experienced any changes in pain level or No management Pain Scale: 0-10 Numeric Is Patient Pain Free? Yes - Nurse 1 - General Ulcer Measurement Start: 04/12/21 13:21 Freq: Status: Active Protocol: Activity Type Activity Date Activity User E-Sign Co-Sign Detail Recorded Client Recorded Date Recorded By Document 04/12/21 13:21 DL [id number] 04/12/21 13:24 DL 04/12/21 13:21 Wound Center Nurse 1 #9 left medial groin/thigh -Current Size (cm) - Length 11.3 -Current Size (cm) - Width 6.8 -Current Size (cm) - Depth 0.1 -Total Square Cm 76.84 -Photo Taken No -Exudate Amt Medium -Exudate Type Serosanguineous -Wound Margin Distinct, Outline Attached -Granulation Amt Large (67-100%) -Necrosis Amt Medium (34-66%) -Necrotic Tissue Type Adherent Slough -Structure Exposed N/A -Texture (Josephine-wound Skin Appearance) Scarring -Moisture (Josephine-wound Skin Appearance) Dry/Scaly -Color (Josephine-wound Skin Appearance) No Abnormality -Temperature (Josephine-wound Skin No Abnormality Appearance) (Pt Warm) -Tenderness on Palpation (Josephine-wound No Skin Appearance) -Foul Odor after Cleansing No -Anesthetic Used 4% Lidocaine Solution WC - Nurse 2 - General Ulcer CM Notes Start: 04/12/21 13:21 Freq: Status: Active Protocol: Activity Type Activity Date Activity User E-Sign Co-Sign Detail Recorded Client Recorded Date Recorded By Document 04/12/21 13:38 JOHN [id number] 04/12/21 13:42 JOHN 04/12/21 13:38 Wound Center Nurse 2 -Time 13:39 -Correct Patient Yes -Correct Side, Site, Position Yes -Correct Procedure Yes -Procedure Performed Yes -Type of Procedure Debridement -Clinical Debridement Subcutaneous -Tissue Removed Subcutaneous -Post Debridement (cm) - Length 7 -Post Debridement (cm) - Width 12 -Post Debridement (cm) - Depth 0.2 -Total Square (Post) (cm) 84 -Area of Debridement (cm) - Length 7 -Area of Debridement (cm) - Width 12 -Total Square (Area) (cm) 84 -Tunneling No -Undermining/Tunneling No -Circular Undermining No -Wound/Ulcer Outcome Not Healed -Ulcer Cleansing Rinsed/ Irrigated with Saline -Foul Odor after Cleansing No -Bioengineered Tissue No -Bleeding Controlled with Pressure -Offloading No -Treatment Response Procedure Tolerated Well -Debridement - Subq, 1st 20sq cm Yes -Debridement, SubQ, ea addt'l 20sq cm 4 or part thereof Pain Scale: 0-10 Numeric Is Patient Pain Free? Yes - Nurse 3 - General Ulcer D/C NN Start: 04/12/21 13:21 Freq: Status: Active Protocol: Activity Type Activity Date Activity User E-Sign Co-Sign Detail Recorded Client Recorded Date Recorded By Document 04/12/21 13:48 DL [id number] 04/12/21 13:57 DL 04/12/21 13:48 Wound Care Nurse 3 #9 left medial groin/thigh -Ulcer Cleansing Wound Cleanser -Foul Odor after Cleansing No -Primary Dressing Applied Silvercel -Primary Dressing Covered/Secured with Dry Gauze, Secured with Tape -Silvercel 1 Treatment Response Procedure Tolerated Well Pain Scale: 0-10 Numeric Is Patient Pain Free? Yes WC - Visit Discharge Discharge Condition Stable Ambulatory Status Ambulatory Transportation Private Auto Wound debrided: Medial thigh Laterality: Left Type of Debridement: Excisional debridement Anesthesia Used: 5% Lidocaine Gel Depth: Down to and including healthy tissue and in the subcutaneous layer Percentage of wound debrided: 100 Instrument Used: 7mm curette Tissue Removed: Subcutaneous tissue and slough Severity: Fat Layer Exposed Amount of bleeding with debridement: Mild Bleeding Controlled with: Pressure and Compression and gauze Patient tolerated procedure: Patient tolerated procedure well Assessment/Plan Assessment/Plan (1) Chronic ulcer of left thigh with fat layer exposed: CODE(S): L97.122 - Non-pressure chronic ulcer of left thigh with fat layer exposed (2) Excessive body weight loss: CODE(S): R63.4 - Abnormal weight loss (3) Edema of both lower extremities: CODE(S): R60.0 - Localized edema (4) Excessive and redundant skin and subcutaneous tissue: CODE(S): L98.7 - Excessive and redundant skin and subcutaneous tissue (5) Intertrigo: CODE(S): L30.4 - Erythema intertrigo (6) Panniculitis: CODE(S): M79.3 - Panniculitis, unspecified (7) Abdominal panniculus: CODE(S): E65 - Localized adiposity (8) Former smoker: CODE(S): Z87.891 - Personal history of nicotine dependence PLAN: Wound care - Fibracol plus is on back order. We will start Aquacel?AG daily topped by ABD and a GRACIA wrap for compression. GRACIA wrap for compression. Ordered arterial and venous studies so we can obtain the appropriate amount of compression, but he has not had them done, now that he has broken his right foot, we may need to wait to have them done. He is also interested in lymphedema pumps after he is done with the surgery on both thighs. In the past he has never been able to have pumps that would fit him due to the redundant skin. Encouraged increase protein and fluid intake due to the size and the amount of drainage from his wound. The left medial thigh ulcer is stable. He is ready to proceed with the dermolipectomy right medial thigh at this time. Will schedule the surgery under general anesthesia with a surgical observation overnight stay. The left medial thigh ulcer is ready for operative debridement and skin grafting. At the time of the dermolipectomy on the right, will obtain wound culture on the left and treat with antibiotics if positive. After the right medial thigh wound has stabilized postop, can then discuss delayed closure with skin grafting for bilateral thigh ulcers. Patient was in agreement. Patient was informed of the risks and complications of the procedure including alternatives to surgery. These were discussed with him personally. He voices understanding and wishes to proceed. Due to his fractured right foot, we will wait until his foot is better before proceeding with surgery. Follow up in 2 weeks.
[2021-04-26 13:17] VITALS: BP 139/81; PULSE 65; RESP 22; TEMP 36.2; BMI 54.5
--- NOTE | 2021-04-26 13:59 | PN.PCM_ITS ---
History of Present Illness Date of Service: 04/26/21 Chief Complaint: Nonhealing ulcer left medial thigh. History of Wound: 45 year old man presents with areas of redundant skin and subcutaneous tissue in his bilateral medial thighs and abdominal panniculus with associated panniculitis. There is abdominal wall skin crease intertrigo and bilateral medial thigh intertrigo for which he uses powders for relief. This excess skin and subcutaneous tissue was the result of bariatric surgery done in [place] in May,. He lost about 250 lbs and his current weight is about 440 lbs. He has a history of lower extremity lymphedema resulting from the extreme body weight and has persistent dependent edema in his medial thighs which aggravates his symptomatology. He denies trauma. He denies fever. Both areas bother him but the medial thighs are his initial priority as he has trouble with ambulating. We have received medical approval from his insurance company for his thigh surgery. Surgery 09/22/20 - Excision redundant skin and subcutaneous tissue left medial and posterior thigh with dermolipectomy. Wound care - Fibracol plus daily covered by gauze/ABD. DESMOND wrap for compression. He has recently broken his right foot and is in a boot. Today he denies fever and chills and states his appetite is good. Progress of Wound: Improved Objective Data Objective Data Vital Signs: Vital Signs Temp Pulse Resp BP 97.2 F L 65 22 H 139/81 H 04/26/21 13:17 04/26/21 13:17 04/26/21 13:17 04/26/21 13:17 Body Mass Index (BMI) 54.5 Charges/Coding Procedures Integumentary 111xxx-113xx: 50260 Margarita subq tissue 20 sq cm/< Add On Codes: [id number] Margarita subq tissue add-on (x3) Physical Exam Const alert and oriented x3 HEENT normocephalic Head and Scalp: atraumatic Eyes PERRL Lymph Lymphatic: Negative for no lymphedema noted Resp normal respiratory effort Cardio regular rate GI normal to inspection, nondistended, normoactive bowel sounds Extremity no calf tenderness General Extremity: edema Skin Wound Narrative: Left medial thigh ulcer is pink, and becoming smaller in size. Neuro CN's II-XII intact bilaterally Psych Appearance: grossly normal Debridement Note Debridement Note Post-Debridement Measurements and Additional Note: Post-Debridement Measurements/Treatment WC - Nurse 1 - General Ulcer Assessment Start: 04/12/21 13:21 Freq: Status: Active Protocol: WILLIAM Activity Type Activity Date Activity User E-Sign Co-Sign Detail Recorded Client Recorded Date Recorded By Document 04/12/21 13:21 DL [id number] 04/12/21 13:24 DL Document 04/26/21 13:17 KR [id number] 04/26/21 13:19 KR 04/12/21 04/26/21 13:21 13:17 WC - Today's Visit Information Type of service Follow-up Visit 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/INSPECTOR EYEGLASS FRAMES (Physician/INSPECTOR EYEGLASS FRAMES ) ) Arrival Mode Ambulatory Ambulatory Transfer Assistance None None Patient Identification Verified (Name & Yes ) Patient Requires Transmission-Based No No Precautions Height and Weight Body Mass Index (BMI) 54.5 54.5 BMI Classification Obese Obese Vital Signs Temperature (97.8 F-99.1 F) 98.6 F 97.2 F L Temperature Source Temporal Temporal Pulse Rate (60-100) 62 65 Pulse Location Monitor Monitor Respiratory Rate (12-18) 22 H 22 H Respiratory rate source Observation Observation Blood Pressure (90/60-120/80) 126/84 H 139/81 H Blood Pressure Mean (mm Hg) 98 100 Source Monitor Monitor History Since Last Visit- (Skip if this is Patient's initial visit) Have you changed medications since your No No last visit? Any new allergies or adverse reactions No No Had a fall/change in ADL's that may No No increase risk of falls Signs or symptoms of abuse and/or No No neglect since last visit Have you been in the hospital since your No No last visit? Has dressing in place as prescribed Yes Yes Has compression in place as prescribed Yes Yes Has offloadiing in place as prescribed N/A N/A Experienced any changes in pain level or No No management Pain Scale: 0-10 Numeric Is Patient Pain Free? Yes - Nurse 1 - General Ulcer Measurement Start: 04/12/21 13:21 Freq: Status: Active Protocol: Activity Type Activity Date Activity User E-Sign Co-Sign Detail Recorded Client Recorded Date Recorded By Document 04/12/21 13:21 DL [id number] 04/12/21 13:24 DL Document 04/26/21 13:17 KR [id number] 04/26/21 13:19 KR 04/12/21 04/26/21 13:21 13:17 Wound Center Nurse 1 #9 left medial groin/thigh -Current Size (cm) - Length 11.3 10.4 -Current Size (cm) - Width 6.8 7.1 -Current Size (cm) - Depth 0.1 0.1 -Total Square Cm 76.84 73.84 -Photo Taken No Yes -Exudate Amt Medium Medium -Exudate Type Serosanguineous Serosanguineous -Wound Margin Distinct, Distinct, Outline Outline Attached Attached -Granulation Amt Large (67-100%) Medium (34-66%) -Necrosis Amt Medium (34-66%) Medium (34-66%) -Necrotic Tissue Type Adherent Slough Adherent Slough -Structure Exposed N/A None/Limited to Skin Breakdown -Texture (Josephine-wound Skin Appearance) Scarring Scarring -Moisture (Josephine-wound Skin Appearance) Dry/Scaly No Abnormality -Color (Josephine-wound Skin Appearance) No Abnormality No Abnormality -Temperature (Josephine-wound Skin No Abnormality No Abnormality Appearance) (Pt Warm) (Pt Warm) -Tenderness on Palpation (Josephine-wound No No Skin Appearance) -Ulcer Cleansing Wound Cleanser -Foul Odor after Cleansing No No -Anesthetic Used 4% Lidocaine 4% Lidocaine Solution Solution WC - Nurse 2 - General Ulcer CM Notes Start: 04/12/21 13:21 Freq: Status: Active Protocol: Activity Type Activity Date Activity User E-Sign Co-Sign Detail Recorded Client Recorded Date Recorded By Document 04/12/21 13:38 JF [id number] 04/12/21 13:42 Document 04/26/21 13:34 [id number] 04/26/21 13:39 04/12/21 04/26/21 13:38 13:34 Wound Center Nurse 2 #9 left medial groin/thigh -Time 13:39 13:35 -Correct Patient Yes Yes -Correct Side, Site, Position Yes Yes -Correct Procedure Yes Yes -Procedure Performed Yes Yes -Type of Procedure Debridement Debridement -Clinical Debridement Subcutaneous Subcutaneous -Tissue Removed Subcutaneous Subcutaneous -Post Debridement (cm) - Length 7 6.8 -Post Debridement (cm) - Width 12 11.2 -Post Debridement (cm) - Depth 0.2 0.2 -Total Square (Post) (cm) 84 76.16 -Area of Debridement (cm) - Length 7 6.8 -Area of Debridement (cm) - Width 12 11.2 -Total Square (Area) (cm) 84 76.16 -Tunneling No No -Undermining/Tunneling No No -Circular Undermining No No -Wound/Ulcer Outcome Not Healed Not Healed -Ulcer Cleansing Rinsed/ Rinsed/ Irrigated with Irrigated with Saline Saline -Foul Odor after Cleansing No No -Bioengineered Tissue No No -Bleeding Controlled with Pressure Pressure -Offloading No No -Treatment Response Procedure Procedure Tolerated Well Tolerated Well -Debridement - Subq, 1st 20sq cm Yes Yes -Debridement, SubQ, ea addt'l 20sq cm 4 3 or part thereof Pain Scale: 0-10 Numeric Is Patient Pain Free? Yes Yes - Nurse 3 - General Ulcer D/C NN Start: 04/12/21 13:21 Freq: Status: Active Protocol: Activity Type Activity Date Activity User E-Sign Co-Sign Detail Recorded Client Recorded Date Recorded By Document 04/12/21 13:48 DL [id number] 04/12/21 13:57 DL Document 04/26/21 13:47 AK [id number] 04/26/21 13:49 AK Document 04/26/21 13:53 AK [id number] 04/26/21 13:54 AK 04/12/21 04/26/21 04/26/21 13:48 13:47 13:53 Wound Care Nurse 3 #9 left medial groin/thigh -Ulcer Cleansing Wound Cleanser Rinsed/ Irrigated with Saline -Foul Odor after Cleansing No -Primary Dressing Applied Silvercel Fibracol Plus 4x4 -Primary Dressing Covered/Secured with Dry Gauze, Secured with Secured with Tape Tape -Other Covering ABD pad -Fibracol Plus 4x4 1 -Silvercel 1 Left -Lotion applied to leg before No compression wrap -Compression Wrap Desmond Wrap -Other desmond wrap x3 lg Treatment Response Procedure Tolerated Well Pain Scale: 0-10 Numeric Is Patient Pain Free? Yes - Visit Discharge Discharge Condition Stable Stable Ambulatory Status Ambulatory Transportation Private Auto Private Auto Clinical Summary of Care Provided Yes Wound debrided: medial thigh ulcer Laterality: Left Type of Debridement: Excisional debridement Anesthesia Used: 5% Lidocaine Gel Depth: Down to and including healthy tissue and in the subcutaneous layer Percentage of wound debrided: 100 Instrument Used: 7mm curette Tissue Removed: Subcutaneous tissue and slough Severity: Fat Layer Exposed Amount of bleeding with debridement: Moderate Bleeding Controlled with: Pressure and Compression and gauze Patient tolerated procedure: Patient tolerated procedure well Assessment/Plan Assessment/Plan (1) Chronic ulcer of left thigh with fat layer exposed: CODE(S): L97.122 - Non-pressure chronic ulcer of left thigh with fat layer exposed (2) Edema of both lower extremities: CODE(S): R60.0 - Localized edema (3) Excessive body weight loss: CODE(S): R63.4 - Abnormal weight loss (4) Excessive and redundant skin and subcutaneous tissue: CODE(S): L98.7 - Excessive and redundant skin and subcutaneous tissue (5) Intertrigo: CODE(S): L30.4 - Erythema intertrigo (6) Former smoker: CODE(S): Z87.891 - Personal history of nicotine dependence PLAN: Wound care - Fibracol plus daily topped by ABD and a DESMOND wrap for compression. Ordered arterial and venous studies so we can obtain the appropriate amount of compression, but he has not had them done, now that he has broken his right foot, we may need to wait to have them done. He is also inter ested in lymphedema pumps after he is done with the surgery on both thighs. In the past he has never been able to have pumps that would fit him due to the redundant skin. Encouraged increase protein and fluid intake due to the size and the amount of drainage from his wound. The left medial thigh ulcer is stable. 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 Will schedule the surgery under general anesthesia with a surgical observation overnight stay. The left medial thigh ulcer is ready for operative debridement and skin grafting. At the time of the dermolipectomy on the right, will obtain wound culture on the left and treat with antibiotics if positive. After the right medial thigh wound has stabilized postop, can then discuss delayed closure with skin grafting for bilateral thigh ulcers. Patient was in agreement. Patient was informed of the risks and complications of the procedure including alternatives to surgery. These were discussed with him personally. He voices understanding and wishes to proceed. Patient is having issues with his knees and would like to have steroid injections. If it is ok with the physician giving the injections, it is ok for him to receive them from my viewpoint. His ulcer is stable at this time. Follow up in 2 weeks.
== END 2021-05-11 23:59 ==
LOC: WC 13:15
PROVIDERS: PCP Internal Medicine; Referring Provider Internal Medicine; Visit Provider Nurse Practitioner Family
DX: L98.7 Excessive and redundant skin and subcutaneous tissue (principal); M79.3 Panniculitis, unspecified; L30.4 Erythema intertrigo; Z98.84 Bariatric surgery status; L97.122 Non-pressure chronic ulcer of left thigh with fat layer exposed; R60.0 Localized edema; Z87.891 Personal history of nicotine dependence; E65 Localized adiposity; E66.9 Obesity, unspecified; Z68.43 Body mass index [BMI] 50.0-59.9, adult
CPT/HCPCS: 11042; 11045

== ENCOUNTER → 2021-06-11 14:09 | Outpatient (CLI) | payer MEDICAID, SELFPAY ==
--- NOTE | 2021-06-11 14:11 | CT_ITS ---
STUDY: CT ABDOMEN AND PELVIS WITH CONTRAST REASON FOR EXAM: Male, 46 years old. Abdominal pain. History of prior gastric sleeve surgery with weight loss. RADIATION DOSAGE (If Supplied By Facility): CTDIvol = ( 24.56 ) mGy, DLP = ( 1441.16 ) mGycm TECHNIQUE: Transaxial images were obtained from the dome of the diaphragm to the symphysis pubis with oral contrast. Oral and amp; IV Readi-CAT and amp; 100mL Isovue-370 was administered. Sagittal and coronal images were reconstructed. Individualized dose optimization techniques were used for this CT. COMPARISON: None. FINDINGS: The visualized lung bases are unremarkable. Coronary calcification. Mild hepatic enlargement. Normal gallbladder and extrahepatic biliary system. There is mild splenomegaly. Normal pancreas. Normal bilateral adrenal glands. Normal right kidney. Normal left kidney. Evidence of prior subtotal gastrectomy. Normal small intestine. Normal colon. Once again, the colon is located in the left-sided abdomen and of the duodenum does not cross the midline suggestive of congenital intestinal malrotation. The appendix is visualized and appears normal. Normal abdominal aorta. Normal inferior vena cava. Normal retroperitoneum. Small capacity urinary bladder. The previously seen fluid collection in the umbilical region has cleared. 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 CT/Abdomen/Pelvis WITH Contrast IMPRESSION: Prior subtotal gastrectomy. 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 Prior umbilical hernia repair. Postoperative changes are seen. Electronically Signed: Louis Carpenter MD at 15:14 EDT , Service support ,
[2021-06-11 14:25] LABS: CREATININE FINGERSTICK 0.9 mg/dL (0.70-1.30); EGFR FINGERSTICK > 60.0000 mL/min (>60)
== END ==
PROVIDERS: PCP Internal Medicine; Referring Provider Surgery; Visit Provider Surgery
DX: K43.9 Ventral hernia without obstruction or gangrene (principal); R10.9 Unspecified abdominal pain; R11.10 Vomiting, unspecified
CPT/HCPCS: 74177; Q9967

== ENCOUNTER 2021-06-28 13:15 | Outpatient (RCR) | payer MEDICAID, SELFPAY ==
[2021-05-12 00:30] VITALS: BP 139/81; PULSE 65; RESP 22; TEMP 36.2; BMI 54.5
[2021-06-14 10:58] VITALS: BP 164/109; PULSE 60; TEMP 36.3; BMI 54.5
--- NOTE | 2021-06-14 12:58 | PCM.WC.PN ---
History of Present Illness Date of Service: 06/14/21 Chief Complaint: Nonhealing ulcer left medial thigh. History of Wound: 46 year old man presents with areas of redundant skin and subcutaneous tissue in his bilateral medial thighs and abdominal panniculus with associated panniculitis. There is abdominal wall skin crease intertrigo and bilateral medial thigh intertrigo for which he uses powders for relief. This excess skin and subcutaneous tissue was the result of bariatric surgery done in [place] in May,. He lost about 250 lbs and his current weight is about 440 lbs. He has a history of lower extremity lymphedema resulting from the extreme body weight and has persistent dependent edema in his medial thighs which aggravates his symptomatology. He denies trauma. He denies fever. Both areas bother him but the medial thighs are his initial priority as he has trouble with ambulating. We have received medical approval from his insurance company for his thigh surgery. Surgery 09/22/20 - Excision redundant skin and subcutaneous tissue left medial and posterior thigh with dermolipectomy. Wound care - Fibracol plus daily covered by gauze/ABD. DESMOND wrap for compression. He has recently broken his right foot and is in a boot. Today he denies fever and chills and states his appetite is good. Progress of Wound: Improved. Objective Data Objective Data Vital Signs: Vital Signs Temp Pulse Resp BP 97.3 F L 60 22 H 164/109 H 06/14/21 10:58 06/14/21 10:58 05/12/21 00:30 06/14/21 10:58 Body Mass Index (BMI) 54.5 Charges/Coding Procedures Integumentary 111xxx-113xx: 59293 Margarita subq tissue 20 sq cm/< Add On Codes: [id number] Margarita subq tissue add-on (x3) Physical Exam Const alert and oriented x3 General Appearance: cooperative HEENT normocephalic Resp normal respiratory effort Cardio regular rate GI non-tender Extremity normal capillary refill General Extremity: edema Skin Wound Narrative: Left medial thigh ulcer is beefy pink and improving. Neuro CN's II-XII intact bilaterally Psych Appearance: grossly normal Debridement Note Debridement Note Wound debrided: Medial thigh ulcer Laterality: Left Type of Debridement: Excisional debridement Anesthesia Used: 5% Lidocaine Gel Depth: Down to and including healthy tissue and in the subcutaneous layer Percentage of wound debrided: 100 Instrument Used: 7mm curette Tissue Removed: Subcutaneous tissue and slough Severity: Fat Layer Exposed Amount of bleeding with debridement: Mild Bleeding Controlled with: Pressure and Compression and gauze Patient tolerated procedure: Patient tolerated procedure well Post-Debridement Measurements and Additional Note: Post-Debridement Measurements/Treatment - Nurse 1 - General Ulcer Assessment Start: 06/14/21 10:57 Freq: Status: Active Protocol: WILLIAM Activity Type Activity Date Activity User E-Sign Co-Sign Detail Recorded Client Recorded Date Recorded By Document 06/14/21 10:58 [facility] [id number] 06/14/21 11:02 [facility] 06/14/21 10:58 - Today's Visit Information Type of service 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/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 Any new allergies or adverse reactions No Had a fall/change in ADL's that may No increase risk of falls Signs or symptoms of abuse and/or No neglect since last visit Have you been in the hospital since your No last visit? Has dressing in place as prescribed Yes Has compression in place as prescribed N/A Has offloadiing in place as prescribed N/A Experienced any changes in pain level or No management Left Footwear Regular Shoe Right Footwear Regular Shoe Pain Scale: 0-10 Numeric Is Patient Pain Free? Yes - Nurse 1 - General Ulcer Measurement Start: 06/14/21 10:57 Freq: Status: Active Protocol: Activity Type Activity Date Activity User E-Sign Co-Sign Detail Recorded Client Recorded Date Recorded By Document 06/14/21 10:58 [facility] [id number] 06/14/21 11:02 [facility] 06/14/21 10:58 Wound Center Nurse 1 #9 left medial groin/thigh -Current Size (cm) - Length 13.5 -Current Size (cm) - Width 7.1 -Current Size (cm) - Depth 0.2 -Total Square Cm 95.85 -Exudate Amt Medium -Exudate Type Serosanguineous -Wound Margin Distinct, Outline Attached -Granulation Amt Medium (34-66%) -Granulation Quality Red -Necrosis Amt Medium (34-66%) -Necrotic Tissue Type Adherent Slough -Texture (Josephine-wound Skin Appearance) Assessed, Scarring -Moisture (Josephine-wound Skin Appearance) No Abnormality, Assessed -Color (Josephine-wound Skin Appearance) No Abnormality, Assessed -Temperature (Josephine-wound Skin No Abnormality Appearance) (Pt Warm) -Tenderness on Palpation (Josephine-wound No Skin Appearance) -Ulcer Cleansing Soap and Water -Foul Odor after Cleansing No -Anesthetic Used 4% Lidocaine Solution ACOSTA - Nurse 2 - General Ulcer CM Notes Start: 06/14/21 10:57 Freq: Status: Active Protocol: Activity Type Activity Date Activity User E-Sign Co-Sign Detail Recorded Client Recorded Date Recorded By Document 06/14/21 11:21 JOHN [id number] 06/14/21 11:26 JOHN 06/14/21 11:21 Wound Center Nurse 2 -Time 11:22 -Correct Patient Yes -Correct Side, Site, Position Yes -Correct Procedure Yes -Procedure Performed Yes -Type of Procedure Debridement -Clinical Debridement Subcutaneous -Tissue Removed Subcutaneous -Post Debridement (cm) - Length 9.8 -Post Debridement (cm) - Width 7 -Post Debridement (cm) - Depth 0.2 -Total Square (Post) (cm) 68.6 -Area of Debridement (cm) - Length 9.8 -Area of Debridement (cm) - Width 7 -Total Square (Area) (cm) 68.6 -Tunneling No -Undermining/Tunneling No -Circular Undermining No -Wound/Ulcer Outcome Not Healed -Ulcer Cleansing Rinsed/ Irrigated with Saline -Foul Odor after Cleansing No -Bioengineered Tissue No -Bleeding Controlled with Pressure -Offloading No -Treatment Response Procedure Tolerated Well -Debridement - Subq, 1st 20sq cm Yes -Debridement, SubQ, ea addt'l 20sq cm 3 or part thereof Pain Scale: 0-10 Numeric Is Patient Pain Free? Yes ACOSTA - Nurse 3 - General Ulcer D/C NN Start: 06/14/21 10:57 Freq: Status: Active Protocol: Activity Type Activity Date Activity User E-Sign Co-Sign Detail Recorded Client Recorded Date Recorded By Document 06/14/21 11:36 GAGANDEEP [id number] 06/14/21 11:38 GAGANDEEP 06/14/21 11:36 Wound Care Nurse 3 #9 left medial groin/thigh -Ulcer Cleansing Rinsed/ Irrigated with Saline -Foul Odor after Cleansing No -Negative Pressure Wound Therapy N/A -Primary Dressing Applied Fibracol Plus 4x4 -Other Dressing ABD -Primary Dressing Covered/Secured with Secured with Tape -Fibracol Plus 4x4 1 Left -Compression Wrap Desmond Wrap -Other 3 large desmond wraps WC - Visit Discharge Discharge Condition Stable Ambulatory Status Ambulatory Transportation Private Auto Medication Reconcilliation completed & No provided to patient/care provider Clinical Summary of Care Provided Yes Assessment/Plan Assessment/Plan (1) Chronic ulcer of left thigh with fat layer exposed: CODE(S): L97.122 - Non-pressure chronic ulcer of left thigh with fat layer exposed (2) Edema of both lower extremities: CODE(S): R60.0 - Localized edema (3) Excessive and redundant skin and subcutaneous tissue: CODE(S): L98.7 - Excessive and redundant skin and subcutaneous tissue (4) Excessive body weight loss: CODE(S): R63.4 - Abnormal weight loss (5) Intertrigo: CODE(S): L30.4 - Erythema intertrigo (6) Former smoker: CODE(S): Z87.891 - Personal history of nicotine dependence (7) Chronic acquired lymphedema: CODE(S): I89.0 - Lymphedema, not elsewhere classified (8) Morbid obesity: CODE(S): E66.01 - Morbid (severe) obesity due to excess calories PLAN: Wound care - Fibracol plus daily topped by ABD and a DESMOND wrap for compression. Ordered arterial and venous studies so we can obtain the appropriate amount of compression, but he has not had them done, now that he has broken his right foot, we may need to wait to have them done. He is also interested in lymphedema pumps after he is done with the surgery on both thighs. In the past he has never been able to have pumps that would fit him due to the redundant skin. Encouraged increase protein and fluid intake due to the size and the amount of drainage from his wound. The left medial thigh ulcer is stable. 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 Will schedule the surgery under general anesthesia with a surgical observation overnight stay. The left medial thigh ulcer is ready for operative debridement and skin grafting. At the time of the dermolipectomy on the right, will obtain wound culture on the left and treat with antibiotics if positive. After the right medial thigh wound has stabilized postop, can then discuss delayed closure with skin grafting for bilateral thigh ulcers. Patient was in agreement. Patient was informed of the risks and complications of the procedure including alternatives to surgery. These were discussed with him personally. He voices understanding and wishes to proceed. Patient is having issues with his knees and would like to have steroid injections. If it is ok with the physician giving the injections, it is ok for him to receive them from my viewpoint. His ulcer is stable at this time. Follow up in 2 weeks
[2021-06-28 13:25] VITALS: BP 155/74; PULSE 61; RESP 20; TEMP 36; BMI 54.5
--- NOTE | 2021-06-28 16:25 | PCM.WC.PN ---
History of Present Illness Date of Service: 06/28/21 Chief Complaint: Nonhealing ulcer left medial thigh. History of Wound: 46 year old man presents with areas of redundant skin and subcutaneous tissue in his bilateral medial thighs and abdominal panniculus with associated panniculitis. There is abdominal wall skin crease intertrigo and bilateral medial thigh intertrigo for which he uses powders for relief. This excess skin and subcutaneous tissue was the result of bariatric surgery done in [place] in May,. He lost about 250 lbs and his current weight is about 440 lbs. He has a history of lower extremity lymphedema resulting from the extreme body weight and has persistent dependent edema in his medial thighs which aggravates his symptomatology. He denies trauma. He denies fever. Both areas bother him but the medial thighs are his initial priority as he has trouble with ambulating. We have received medical approval from his insurance company for his thigh surgery. Surgery 09/22/20 - Excision redundant skin and subcutaneous tissue left medial and posterior thigh with dermolipectomy. Wound care - Fibracol plus daily covered by gauze/ABD. DESMOND wrap for compression. He has recently broken his right foot and is in a boot. Today he denies fever and chills and states his appetite is good. Progress of Wound: Improved. Objective Data Objective Data Vital Signs: Vital Signs Temp Pulse Resp BP 96.8 F L 61 20 H 155/74 H 06/28/21 13:25 06/28/21 13:25 06/28/21 13:25 06/28/21 13:25 Body Mass Index (BMI) 54.5 Charges/Coding Procedures Integumentary 111xxx-113xx: 23198 Margarita subq tissue 20 sq cm/< Add On Codes: [id number] Margarita subq tissue add-on (x2) Physical Exam Const alert and oriented x3 General Appearance: cooperative HEENT normocephalic Resp normal respiratory effort Cardio regular rate GI Palpation: soft Extremity normal capillary refill Skin Wound Narrative: Left medial thigh ulcer is smaller in size with granulation tissue present. Neuro CN's II-XII intact bilaterally Psych Appearance: grossly normal Debridement Note Debridement Note Wound debrided: medial thigh ulcer Laterality: Left Type of Debridement: Excisional debridement Anesthesia Used: 4% Lidocaine Solution Depth: Down to and including healthy tissue and in the subcutaneous layer Percentage of wound debrided: 100 Instrument Used: 5mm curette Tissue Removed: Subcutaneous tissue and slough Severity: Fat Layer Exposed Bleeding Controlled with: Pressure and Compression and gauze Patient tolerated procedure: Patient tolerated procedure well Post-Debridement Measurements and Additional Note: Post-Debridement Measurements/Treatment - Nurse 1 - General Ulcer Assessment Start: 06/14/21 10:57 Freq: Status: Active Protocol: WILLIAM Activity Type Activity Date Activity User E-Sign Co-Sign Detail Recorded Client Recorded Date Recorded By Document 06/14/21 10:58 BM [id number] 06/14/21 11:02 BMF Document 06/28/21 13:25 DL [id number] 06/28/21 13:29 DL 06/14/21 06/28/21 10:58 13:25 WC - Today's Visit Information Type of service Follow-up Visit 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/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 TEACHER (Physician/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 EDUCATION TEACHER ) ) Arrival Mode Ambulatory Ambulatory Transfer Assistance None Patient Identification Verified (Name & Yes Yes ) Patient Requires Transmission-Based No Precautions Height and Weight Body Mass Index (BMI) 54.5 54.5 BMI Classification Obese Obese Vital Signs Temperature (97.8 F-99.1 F) 97.3 F L 96.8 F L Temperature Source Temporal Temporal Pulse Rate (60-100) 60 61 Pulse Location Monitor Monitor Respiratory Rate (12-18) 20 H Respiratory rate source Observation Blood Pressure (90/60-120/80) 164/109 H 155/74 H Blood Pressure Mean (mm Hg) 127 101 Source Monitor Monitor Position Sitting Blood Pressure Location Right Arm History Since Last Visit- (Skip if this is Patient's initial visit) Have you changed medications since your No No last visit? Any new allergies or adverse reactions No No Had a fall/change in ADL's that may No No increase risk of falls Signs or symptoms of abuse and/or No No neglect since last visit Have you been in the hospital since your No No last visit? Has dressing in place as prescribed Yes Yes Has compression in place as prescribed N/A N/A Has offloadiing in place as prescribed N/A Yes Experienced any changes in pain level or No No management Left Footwear Regular Shoe Right Footwear Regular Shoe Pain Scale: 0-10 Numeric Is Patient Pain Free? Yes Yes ACOSTA Reynolds Nurse 1 - General Ulcer Measurement Start: 06/14/21 10:57 Freq: Status: Active Protocol: Activity Type Activity Date Activity User E-Sign Co-Sign Detail Recorded Client Recorded Date Recorded By Document 06/14/21 10:58 [facility] [id number] 06/14/21 11:02 [facility] Document 06/28/21 13:25 DL [id number] 06/28/21 13:29 DL 06/14/21 06/28/21 10:58 13:25 Wound Center Nurse 1 #9 left medial groin/thigh -Current Size (cm) - Length 13.5 8.8 -Current Size (cm) - Width 7.1 2 -Current Size (cm) - Depth 0.2 0.1 -Total Square Cm 95.85 17.6 -Photo Taken No -Exudate Amt Medium Medium -Exudate Type Serosanguineous Serosanguineous -Wound Margin Distinct, Distinct, Outline Outline Attached Attached -Granulation Amt Medium (34-66%) Medium (34-66%) -Granulation Quality Red Draper,Red -Necrosis Amt Medium (34-66%) Medium (34-66%) -Necrotic Tissue Type Adherent Slough Adherent Slough -Structure Exposed N/A -Texture (Josephine-wound Skin Appearance) Assessed, Scarring Scarring -Moisture (Josephine-wound Skin Appearance) No Abnormality, No Abnormality Assessed -Color (Josephine-wound Skin Appearance) No Abnormality, No Abnormality Assessed -Temperature (Josephine-wound Skin No Abnormality No Abnormality Appearance) (Pt Warm) (Pt Warm) -Tenderness on Palpation (Josephine-wound No No Skin Appearance) -Ulcer Cleansing Soap and Water Wound Cleanser -Foul Odor after Cleansing No Yes, Due to Product Use -Anesthetic Used 4% Lidocaine 4% Lidocaine Solution Solution WC - Nurse 2 - General Ulcer CM Notes Start: 06/14/21 10:57 Freq: Status: Active Protocol: Activity Type Activity Date Activity User E-Sign Co-Sign Detail Recorded Client Recorded Date Recorded By Document 06/14/21 11:21 [id number] 06/14/21 11:26 Document 06/28/21 13:41 [id number] 06/28/21 13:46 JF 06/14/21 06/28/21 11:21 13:41 Wound Center Nurse 2 #9 left medial groin/thigh -Time 11:22 13:42 -Correct Patient Yes Yes -Correct Side, Site, Position Yes Yes -Correct Procedure Yes Yes -Procedure Performed Yes Yes -Type of Procedure Debridement Debridement -Clinical Debridement Subcutaneous Subcutaneous -Tissue Removed Subcutaneous Subcutaneous -Post Debridement (cm) - Length 9.8 9.7 -Post Debridement (cm) - Width 7 5 -Post Debridement (cm) - Depth 0.2 0.2 -Total Square (Post) (cm) 68.6 48.5 -Area of Debridement (cm) - Length 9.8 9.7 -Area of Debridement (cm) - Width 7 5 -Total Square (Area) (cm) 68.6 48.5 -Tunneling No No -Undermining/Tunneling No No -Circular Undermining No No -Wound/Ulcer Outcome Not Healed Not Healed -Ulcer Cleansing Rinsed/ Rinsed/ Irrigated with Irrigated with Saline Saline -Foul Odor after Cleansing No No -Bioengineered Tissue No No -Bleeding Controlled with Pressure Pressure -Offloading No No -Treatment Response Procedure Procedure Tolerated Well Tolerated Well -Debridement - Subq, 1st 20sq cm Yes Yes -Debridement, SubQ, ea addt'l 20sq cm 3 2 or part thereof Pain Scale: 0-10 Numeric Is Patient Pain Free? Yes Yes - Nurse 3 - General Ulcer D/C NN Start: 06/14/21 10:57 Freq: Status: Active Protocol: Activity Type Activity Date Activity User E-Sign Co-Sign Detail Recorded Client Recorded Date Recorded By Document 06/14/21 11:36 AK [id number] 06/14/21 11:38 AK Document 06/28/21 13:52 ML [id number] 06/28/21 13:53 ML 06/14/21 06/28/21 11:36 13:52 Wound Care Nurse 3 #9 left medial groin/thigh -Ulcer Cleansing Rinsed/ Rinsed/ Irrigated with Irrigated with Saline Saline -Foul Odor after Cleansing No No -Negative Pressure Wound Therapy N/A -Primary Dressing Applied Fibracol Plus Fibracol Plus 4x4 4x4 -Other Dressing ABD abd -Primary Dressing Covered/Secured with Secured with Dry Gauze, Tape Secured with Tape -Fibracol Plus 4x4 1 1 Left -Compression Wrap Desmond Wrap -Other 3 large desmond wraps Pain Scale: 0-10 Numeric Is Patient Pain Free? Yes WC - Visit Discharge Discharge Condition Stable Stable Ambulatory Status Ambulatory Ambulatory Transportation Private Auto Private Auto Medication Reconcilliation completed & No No provided to patient/care provider Clinical Summary of Care Provided Yes Yes Assessment/Plan Assessment/Plan (1) Chronic ulcer of left thigh with fat layer exposed: CODE(S): L97.122 - Non-pressure chronic ulcer of left thigh with fat layer exposed (2) Edema of both lower extremities: CODE(S): R60.0 - Localized edema (3) Excessive and redundant skin and subcutaneous tissue: CODE(S): L98.7 - Excessive and redundant skin and subcutaneous tissue (4) Excessive body weight loss: CODE(S): R63.4 - Abnormal weight loss (5) Intertrigo: CODE(S): L30.4 - Erythema intertrigo (6) Chronic acquired lymphedema: CODE(S): I89.0 - Lymphedema, not elsewhere classified (7) Morbid obesity: CODE(S): E66.01 - Morbid (severe) obesity due to excess calories PLAN: Wound care - Fibracol plus daily topped by ABD and a DESMOND wrap for compression. Ordered arterial and venous studies so we can obtain the appropriate amount of compression, but he has not had them done, now that he has broken his right foot, we may need to wait to have them done. He is also interested in lymphedema pumps after he is done with the surgery on both thighs. In the past he has never been able to have pumps that would fit him due to the redundant skin. Encouraged increase protein and fluid intake due to the size and the amount of drainage from his wound. The left medial thigh ulcer is stable. 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 Will schedule the surgery under general anesthesia with a surgical observation overnight stay. The left medial thigh ulcer is ready for operative debridement and skin grafting. At the time of the dermolipectomy on the right, will obtain wound culture on the left and treat with antibiotics if positive. After the right medial thigh wound has stabilized postop, can then discuss delayed closure with skin grafting for bilateral thigh ulcers. Patient was in agreement. Patient was informed of the risks and complications of the procedure including alternatives to surgery. These were discussed with him personally. He voices understanding and wishes to proceed. Patient is having issues with his knees and would like to have steroid injections. If it is ok with the physician giving the injections, it is ok for him to receive them from my viewpoint. His ulcer is stable at this time. Follow up in 2 weeks
== END 2021-07-11 23:59 ==
LOC: WC 13:15
PROVIDERS: PCP Internal Medicine; Referring Provider Internal Medicine; Visit Provider Nurse Practitioner Family
DX: L98.7 Excessive and redundant skin and subcutaneous tissue (principal); M79.3 Panniculitis, unspecified; L30.4 Erythema intertrigo; L97.122 Non-pressure chronic ulcer of left thigh with fat layer exposed; Z98.84 Bariatric surgery status; E66.01 Morbid (severe) obesity due to excess calories; Z68.43 Body mass index [BMI] 50.0-59.9, adult; I89.0 Lymphedema, not elsewhere classified; Z87.891 Personal history of nicotine dependence; R60.0 Localized edema
CPT/HCPCS: 11042; 11045

== ENCOUNTER 2021-08-02 13:15 | Outpatient (RCR) | payer MEDICAID, SELFPAY ==
[2021-07-12 00:04] VITALS: BP 155/74; PULSE 61; RESP 20; TEMP 36; BMI 54.5
[2021-07-19 13:09] VITALS: BP 155/81; PULSE 61; RESP 18; TEMP 36.4; BMI 54.5
--- NOTE | 2021-07-19 14:39 | PCM.WC.PN ---
History of Present Illness Date of Service: 07/19/21 Chief Complaint: Nonhealing ulcer left medial thigh. History of Wound: 46 year old man presents with areas of redundant skin and subcutaneous tissue in his bilateral medial thighs and abdominal panniculus with associated panniculitis. There is abdominal wall skin crease intertrigo and bilateral medial thigh intertrigo for which he uses powders for relief. This excess skin and subcutaneous tissue was the result of bariatric surgery done in [place] in May,. He lost about 250 lbs and his current weight is about 440 lbs. He has a history of lower extremity lymphedema resulting from the extreme body weight and has persistent dependent edema in his medial thighs which aggravates his symptomatology. He denies trauma. He denies fever. Both areas bother him but the medial thighs are his initial priority as he has trouble with ambulating. We have received medical approval from his insurance company for his thigh surgery. Surgery 09/22/20 - Excision redundant skin and subcutaneous tissue left medial and posterior thigh with dermolipectomy. Wound care - Fibracol plus daily covered by gauze/ABD. GRACIA wrap for compression. He has recently broken his right foot and is in a boot. Today he denies fever and chills and states his appetite is good. Progress of Wound: Ulcer is improving in size, although the measurements do not appear to be changing, but the ulcer is shaped strangely so the measurements are showing the improvement in the ulcer. Objective Data Objective Data Vital Signs: Vital Signs Temp Pulse Resp BP 97.5 F L 61 18 155/81 H 07/19/21 13:09 07/19/21 13:09 07/19/21 13:09 07/19/21 13:09 Oxygen Delivery Method Room Air Body Mass Index (BMI) 54.5 Charges/Coding Procedures Integumentary 111xxx-113xx: 47500 Margarita subq tissue 20 sq cm/< Add On Codes: 77114 Margarita subq tissue add-on (x2) Physical Exam Const alert and oriented x3 General Appearance: cooperative HEENT normocephalic Eyes PERRL Lymph Lymphatic Narrative: Lower leg edema Resp normal respiratory effort Cardio regular rate GI non-tender Extremity normal capillary refill Skin Wound Narrative: Left medial thigh ulcer is showing improvement and is thinner, it is beefy pink. The shape of it causes the measurements not to show improvement, although there is. Neuro CN's II-XII intact bilaterally Psych Appearance: grossly normal Debridement Note Debridement Note Wound debrided: medial thigh ulcer Laterality: Left Type of Debridement: Excisional debridement Anesthesia Used: 5% Lidocaine Gel Depth: Down to and including healthy tissue and in the subcutaneous layer Percentage of wound debrided: 100 Instrument Used: 5mm curette Tissue Removed: Subcutaneous tissue and slough with increased scabbing surrounding the ulde Severity: Fat Layer Exposed Amount of bleeding with debridement: Mild Bleeding Controlled with: Pressure and Compression and gauze Patient tolerated procedure: Patient tolerated procedure well Post-Debridement Measurements and Additional Note: Post-Debridement Measurements/Treatment - Nurse 1 - General Ulcer Assessment Start: 07/19/21 13:08 Freq: Status: Active Protocol: WILLIAM Activity Type Activity Date Activity User E-Sign Co-Sign Detail Recorded Client Recorded Date Recorded By Document 07/19/21 13:09 [facility] [id number] 07/19/21 13:16 [facility] 07/19/21 13:09 - Today's Visit Information Type of service 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/APPLICATION DEVELOPMENT DIRECTOR ) Arrival Mode Ambulatory Transfer Assistance None Patient Identification Verified (Name & Yes ) Patient Requires Transmission-Based No Precautions Height and Weight Body Mass Index (BMI) 54.5 BMI Classification Obese Vital Signs Temperature (97.8 F-99.1 F) 97.5 F L Temperature Source Temporal Pulse Rate (60-100) 61 Pulse Location Monitor Respiratory Rate (12-18) 18 Respiratory rate source Observation Oxygen Delivery Method Room Air Blood Pressure (90/60-120/80) 155/81 H Blood Pressure Mean (mm Hg) 105 Source Monitor Position Sitting Blood Pressure Location Left Arm History Since Last Visit- (Skip if this is Patient's initial visit) Have you changed medications since your No last visit? Any new allergies or adverse reactions No Had a fall/change in ADL's that may No increase risk of falls Signs or symptoms of abuse and/or No neglect since last visit Have you been in the hospital since your No last visit? Has dressing in place as prescribed Yes Has compression in place as prescribed Yes Has offloadiing in place as prescribed N/A Experienced any changes in pain level or No management Left Footwear Regular Shoe Right Footwear Regular Shoe Pain Scale: 0-10 Numeric Is Patient Pain Free? Yes - Nurse 1 - General Ulcer Measurement Start: 07/19/21 13:08 Freq: Status: Active Protocol: Activity Type Activity Date Activity User E-Sign Co-Sign Detail Recorded Client Recorded Date Recorded By Document 07/19/21 13:09 [facility] [id number] 07/19/21 13:16 [facility] 07/19/21 13:09 Wound Center Nurse 1 #9 left medial groin/thigh -Combined with other wound No -Current Size (cm) - Length 7.5 -Current Size (cm) - Width 4 -Current Size (cm) - Depth 0.1 -Total Square Cm 30.0 -Photo Taken No -Epithelialization Small 1-33% -Tunneling No -Undermining/Tunneling No -Circular Undermining No -Exudate Amt Medium -Exudate Type Serosanguineous -Wound Margin Distinct, Outline Attached -Granulation Amt Medium (34-66%) -Granulation Quality [place] -Slough/Fibrin Yes -Necrosis Amt Medium (34-66%) -Necrotic Tissue Type Adherent Slough -Texture (Josephine-wound Skin Appearance) Assessed, Scarring -Moisture (Josephine-wound Skin Appearance) Assessed,Dry/ Scaly -Color (Josephine-wound Skin Appearance) Assessed -Temperature (Josephine-wound Skin No Abnormality Appearance) (Pt Warm) -Tenderness on Palpation (Josephine-wound No Skin Appearance) -Ulcer Cleansing Rinsed/ Irrigated with Saline -Foul Odor after Cleansing No -Anesthetic Used 4% Lidocaine Solution WC - Nurse 2 - General Ulcer CM Notes Start: 07/19/21 13:08 Freq: Status: Active Protocol: Activity Type Activity Date Activity User E-Sign Co-Sign Detail Recorded Client Recorded Date Recorded By Document 07/19/21 13:49 [id number] 07/19/21 13:55 07/19/21 13:49 Wound Center Nurse 2 -Time 13:50 -Correct Patient Yes -Correct Side, Site, Position Yes -Correct Procedure Yes -Procedure Performed Yes -Type of Procedure Debridement -Clinical Debridement Subcutaneous -Tissue Removed Subcutaneous -Post Debridement (cm) - Length 9 -Post Debridement (cm) - Width 5 -Post Debridement (cm) - Depth 0.1 -Total Square (Post) (cm) 45 -Area of Debridement (cm) - Length 9 -Area of Debridement (cm) - Width 5 -Total Square (Area) (cm) 45 -Tunneling No -Undermining/Tunneling No -Circular Undermining No -Wound/Ulcer Outcome Not Healed -Ulcer Cleansing Rinsed/ Irrigated with Saline -Foul Odor after Cleansing No -Bioengineered Tissue No -Bleeding Controlled with Pressure -Offloading No -Treatment Response Procedure Tolerated Well -Debridement - Subq, 1st 20sq cm Yes -Debridement, SubQ, ea addt'l 20sq cm 2 or part thereof Pain Scale: 0-10 Numeric Is Patient Pain Free? Yes WC - Nurse 3 - General Ulcer D/C NN Start: 07/19/21 13:08 Freq: Status: Active Protocol: Activity Type Activity Date Activity User E-Sign Co-Sign Detail Recorded Client Recorded Date Recorded By Document 07/19/21 14:09 DL [id number] 07/19/21 14:10 DL 07/19/21 14:09 Wound Care Nurse 3 #9 left medial groin/thigh -Ulcer Cleansing Rinsed/ Irrigated with Saline -Foul Odor after Cleansing No -Primary Dressing Applied Fibracol Plus 4x4 -Primary Dressing Covered/Secured with Dry Gauze, Secured with Tape -Other Covering gracia -Fibracol Plus 4x4 1 Treatment Response Procedure Tolerated Well Pain Scale: 0-10 Numeric Is Patient Pain Free? Yes WC - Visit Discharge Discharge Condition Stable Ambulatory Status Ambulatory Transportation Private Auto Assessment/Plan Assessment/Plan (1) Chronic ulcer of left thigh with fat layer exposed: CODE(S): L97.122 - Non-pressure chronic ulcer of left thigh with fat layer exposed (2) Edema of both lower extremities: CODE(S): R60.0 - Localized edema (3) Excessive and redundant skin and subcutaneous tissue: CODE(S): L98.7 - Excessive and redundant skin and subcutaneous tissue (4) Excessive body weight loss: CODE(S): R63.4 - Abnormal weight loss (5) Intertrigo: CODE(S): L30.4 - Erythema intertrigo (6) Chronic acquired lymphedema: CODE(S): I89.0 - Lymphedema, not elsewhere classified (7) Morbid obesity: CODE(S): E66.01 - Morbid (severe) obesity due to excess calories (8) Abdominal panniculus: CODE(S): E65 - Localized adiposity (9) Former smoker: CODE(S): Z87.891 - Personal history of nicotine dependence PLAN: Wound care - Fibracol plus daily topped by ABD and a GRACIA wrap for compression. Ordered arterial and venous studies so we can obtain the appropriate amount of compression, but he has not had them done. He is also interested in lymphedema pumps after he is done with the surgery on both thighs. In the past he has never been able to have pumps that would fit him due to the redundant skin. Encouraged increase protein and fluid intake due to the size and the amount of drainage from his wound. The left medial thigh ulcer is improving, although the measurements are not showing that because of the shape of the ulcer. 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 Will schedule the surgery under general anesthesia with a surgical observation overnight stay. The left medial thigh ulcer is ready for operative debridement and skin grafting. At the time of the dermolipectomy on the right, will obtain wound culture on the left and treat with antibiotics if positive. After the right medial thigh wound has stabilized postop, can then discuss delayed closure with skin grafting for bilateral thigh ulcers. Patient was in agreement. Patient was informed of the risks and complications of the procedure including alternatives to surgery. These were discussed with him personally. He voices understanding and wishes to proceed. Follow up in 2 weeks
[2021-08-02 13:18] VITALS: BP 126/90; PULSE 79; RESP 16; TEMP 35.8; BMI 54.5
--- NOTE | 2021-08-02 14:21 | PN.PCM_ITS ---
History of Present Illness Date of Service: 08/02/21 Chief Complaint: Nonhealing ulcer left medial thigh. History of Wound: 46 year old man presents with areas of redundant skin and subcutaneous tissue in his bilateral medial thighs and abdominal panniculus with associated panniculitis. There is abdominal wall skin crease intertrigo and bilateral medial thigh intertrigo for which he uses powders for relief. This excess skin and subcutaneous tissue was the result of bariatric surgery done in [place] in May,. He lost about 250 lbs and his current weight is about 440 lbs. He has a history of lower extremity lymphedema resulting from the extreme body weight and has persistent dependent edema in his medial thighs which aggravates his symptomatology. He denies trauma. He denies fever. Both areas bother him but the medial thighs are his initial priority as he has trouble with ambulating. We have received medical approval from his insurance company for his thigh surgery. Surgery 09/22/20 - Excision redundant skin and subcutaneous tissue left medial and posterior thigh with dermolipectomy. Wound care - Start collagen hydrogel covered with adpatic, covered with ABD. GRACIA wrap for compression. He has recently broken his right foot and is in a boot. Today he denies fever and chills and states his appetite is good. Progress of Wound: Ulcer is very dry around the edges. The size is stable. Objective Data Objective Data Vital Signs: Vital Signs Temp Pulse Resp BP 96.5 F L 79 16 126/90 H 08/02/21 13:18 08/02/21 13:18 08/02/21 13:18 08/02/21 13:18 Oxygen Delivery Method Room Air Body Mass Index (BMI) 54.5 Charges/Coding Procedures Integumentary 111xxx-113xx: 86923 Margarita subq tissue 20 sq cm/< Add On Codes: 22793 Margarita subq tissue add-on (x2) Physical Exam Const alert and oriented x3 General Appearance: cooperative HEENT normocephalic Lymph Lymphatic Narrative: Bilateral lower leg lymphedema Resp normal respiratory effort Cardio regular rate GI non-tender Extremity normal capillary refill Skin Wound Narrative: Left medial thigh ulcer is very dry with increased scabbing. Neuro CN's II-XII intact bilaterally Psych Appearance: grossly normal Debridement Note Debridement Note Wound debrided: medial thigh ulcer Laterality: Left Type of Debridement: Excisional debridement Anesthesia Used: 4% Lidocaine Solution Depth: Down to and including healthy tissue and in the subcutaneous layer Percentage of wound debrided: 100 Instrument Used: 5mm curette Tissue Removed: Subcutaneous tissue and slough with increased dry scabbing around ulcer Severity: Fat Layer Exposed Amount of bleeding with debridement: Moderate Bleeding Controlled with: Pressure and Compression and gauze Patient tolerated procedure: Patient tolerated procedure well Debridement Free Text: Ulcer bleeds well with the debridement. Removed the dry, scabby non viable tissue surrounding the ulcer. The edges are very dry. Post-Debridement Measurements and Additional Note: Post-Debridement Measurements/Treatment - Nurse 1 - General Ulcer Assessment Start: 07/19/21 13:08 Freq: Status: Active Protocol: .MARILUZ Activity Type Activity Date Activity User E-Sign Co-Sign Detail Recorded Client Recorded Date Recorded By Document 07/19/21 13:09 [facility] [id number] 07/19/21 13:16 [facility] Document 08/02/21 13:18 [facility] [id number] 08/02/21 13:23 [facility] 07/19/21 08/02/21 13:09 13:18 - Today's Visit Information Type of service Follow-up Visit 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/BEATER ROOM SUPERVISOR (Physician/BEATER ROOM SUPERVISOR ) ) Arrival Mode Ambulatory Ambulatory Transfer Assistance None None Patient Identification Verified (Name & Yes Yes ) Patient Requires Transmission-Based No No Precautions Height and Weight Body Mass Index (BMI) 54.5 54.5 BMI Classification Obese Obese Vital Signs Temperature (97.8 F-99.1 F) 97.5 F L 96.5 F L Temperature Source Temporal Temporal Pulse Rate (60-100) 61 79 Pulse Location Monitor Monitor Respiratory Rate (12-18) 18 16 Respiratory rate source Observation Observation Oxygen Delivery Method Room Air Room Air Blood Pressure (90/60-120/80) 155/81 H 126/90 H Blood Pressure Mean (mm Hg) 105 102 Source Monitor Monitor Position Sitting Sitting Blood Pressure Location Left Arm Left Arm History Since Last Visit- (Skip if this is Patient's initial visit) Have you changed medications since your No No last visit? Any new allergies or adverse reactions No No Had a fall/change in ADL's that may No No increase risk of falls Signs or symptoms of abuse and/or No No neglect since last visit Have you been in the hospital since your No No last visit? Has dressing in place as prescribed Yes Yes Has compression in place as prescribed Yes N/A Has offloadiing in place as prescribed N/A N/A Experienced any changes in pain level or No No management Left Footwear Regular Shoe Regular Shoe Right Footwear Regular Shoe Regular Shoe Pain Scale: 0-10 Numeric Is Patient Pain Free? Yes Yes WC - Nurse 1 - General Ulcer Measurement Start: 07/19/21 13:08 Freq: Status: Active Protocol: Activity Type Activity Date Activity User E-Sign Co-Sign Detail Recorded Client Recorded Date Recorded By Document 07/19/21 13:09 [facility] [id number] 07/19/21 13:16 [facility] Document 08/02/21 13:18 [facility] [id number] 08/02/21 13:23 BM 07/19/21 08/02/21 13:09 13:18 Wound Center Nurse 1 #9 left medial groin/thigh -Combined with other wound No No -Current Size (cm) - Length 7.5 7.5 -Current Size (cm) - Width 4 4.5 -Current Size (cm) - Depth 0.1 0.2 -Total Square Cm 30.0 33.75 -Photo Taken No No -Epithelialization Small 1-33% Small 1-33% -Tunneling No No -Undermining/Tunneling No No -Circular Undermining No No -Exudate Amt Medium Medium -Exudate Type Serosanguineous Serosanguineous -Wound Margin Distinct, Distinct, Outline Outline Attached Attached -Granulation Amt Medium (34-66%) Medium (34-66%) -Granulation Quality [place] Red -Slough/Fibrin Yes Yes -Necrosis Amt Medium (34-66%) Medium (34-66%) -Necrotic Tissue Type Adherent Slough Adherent Slough -Texture (Josephine-wound Skin Appearance) Assessed, Assessed, Scarring Scarring -Moisture (Josephine-wound Skin Appearance) Assessed,Dry/ Assessed,Dry/ Scaly Scaly -Color (Josephine-wound Skin Appearance) Assessed Assessed -Temperature (Josephine-wound Skin No Abnormality No Abnormality Appearance) (Pt Warm) (Pt Warm) -Tenderness on Palpation (Josephine-wound No No Skin Appearance) -Ulcer Cleansing Rinsed/ Rinsed/ Irrigated with Irrigated with Saline Saline -Foul Odor after Cleansing No No -Anesthetic Used 4% Lidocaine 4% Lidocaine Solution Solution WC - Nurse 2 - General Ulcer CM Notes Start: 07/19/21 13:08 Freq: Status: Active Protocol: Activity Type Activity Date Activity User E-Sign Co-Sign Detail Recorded Client Recorded Date Recorded By Document 07/19/21 13:49 JF [id number] 07/19/21 13:55 JF Document 08/02/21 13:27 [id number] 08/02/21 13:32 JF 07/19/21 08/02/21 13:49 13:27 Wound Center Nurse 2 #9 left medial groin/thigh -Time 13:50 13:28 -Correct Patient Yes Yes -Correct Side, Site, Position Yes Yes -Correct Procedure Yes Yes -Procedure Performed Yes Yes -Type of Procedure Debridement Debridement -Clinical Debridement Subcutaneous Subcutaneous -Tissue Removed Subcutaneous Subcutaneous -Post Debridement (cm) - Length 9 8.7 -Post Debridement (cm) - Width 5 5.3 -Post Debridement (cm) - Depth 0.1 0.2 -Total Square (Post) (cm) 45 46.11 -Area of Debridement (cm) - Length 9 8.7 -Area of Debridement (cm) - Width 5 5.3 -Total Square (Area) (cm) 45 46.11 -Tunneling No No -Undermining/Tunneling No No -Circular Undermining No No -Wound/Ulcer Outcome Not Healed Not Healed -Ulcer Cleansing Rinsed/ Rinsed/ Irrigated with Irrigated with Saline Saline -Foul Odor after Cleansing No No -Bioengineered Tissue No No -Bleeding Controlled with Pressure Pressure -Offloading No No -Treatment Response Procedure Procedure Tolerated Well Tolerated Well -Debridement - Subq, 1st 20sq cm Yes Yes -Debridement, SubQ, ea addt'l 20sq cm 2 2 or part thereof Pain Scale: 0-10 Numeric Is Patient Pain Free? Yes Yes WC - Nurse 3 - General Ulcer D/C NN Start: 07/19/21 13:08 Freq: Status: Active Protocol: Activity Type Activity Date Activity User E-Sign Co-Sign Detail Recorded Client Recorded Date Recorded By Document 07/19/21 14:09 DL [id number] 07/19/21 14:10 DL Document 08/02/21 13:49 AK [id number] 08/02/21 13:50 AK 07/19/21 08/02/21 14:09 13:49 Wound Care Nurse 3 #9 left medial groin/thigh -Ulcer Cleansing Rinsed/ Rinsed/ Irrigated with Irrigated with Saline Saline -Foul Odor after Cleansing No No -Negative Pressure Wound Therapy N/A -Primary Dressing Applied Fibracol Plus NonAdherent 4x4 Contact Layer -Other Dressing ABD and hydrogel -Primary Dressing Covered/Secured with Dry Gauze, Secured with Secured with Tape Tape -Other Covering gracia -Fibracol Plus 4x4 1 Treatment Response Procedure Tolerated Well Pain Scale: 0-10 Numeric Is Patient Pain Free? Yes WC - Visit Discharge Discharge Condition Stable Stable Ambulatory Status Ambulatory Transportation Private Auto Private Auto Medication Reconcilliation completed & No provided to patient/care provider Clinical Summary of Care Provided Yes Assessment/Plan Assessment/Plan (1) Chronic ulcer of left thigh with fat layer exposed: CODE(S): L97.122 - Non-pressure chronic ulcer of left thigh with fat layer exposed (2) Excessive body weight loss: CODE(S): R63.4 - Abnormal weight loss (3) Excessive and redundant skin and subcutaneous tissue: CODE(S): L98.7 - Excessive and redundant skin and subcutaneous tissue (4) Intertrigo: CODE(S): L30.4 - Erythema intertrigo (5) Edema of both lower extremities: CODE(S): R60.0 - Localized edema (6) Former smoker: CODE(S): Z87.891 - Personal history of nicotine dependence (7) Morbid obesity: CODE(S): E66.01 - Morbid (severe) obesity due to excess calories (8) Chronic acquired lymphedema: CODE(S): I89.0 - Lymphedema, not elsewhere classified PLAN: Wound care - Stop Fibracol plus and start Collagen hydrogel covered with adaptic daily topped by ABD and a GRACIA wrap for compression. Ordered arterial and venous studies so we can obtain the appropriate amount of compression, but he has not had them done. He is also interested in lymphedema pumps after he is done with the surgery on both thighs. In the past he has never been able to have pumps that would fit him due to the redundant skin. Encouraged increase protein and fluid intake due to the size and the amount of drainage from his wound. The left medial thigh ulcer is improving, although the measurements are not showing that because of the shape of the ulcer. He is ready to proceed with the dermolipectomy right medial thigh after the first of the year. Will schedule the surgery under general anesthesia with a surgical observation overnight stay. The left medial thigh ulcer is ready for operative debridement and skin grafting. At the time of the dermolipectomy on the right, will obtain wound culture on the left and treat with antibiotics if positive. After the right medial thigh wound has stabilized postop, can then discuss delayed closure with skin grafting for bilateral thigh ulcers. Patient was in agreement. Patient was informed of the risks and complications of the procedure including alternatives to surgery. These were discussed with him personally. He voices understanding and wishes to proceed. Follow up in 2 weeks
== END 2021-08-10 23:59 ==
LOC: WC 13:15
PROVIDERS: PCP Internal Medicine; Referring Provider Internal Medicine; Visit Provider Nurse Practitioner Family
DX: L98.7 Excessive and redundant skin and subcutaneous tissue (principal); L30.4 Erythema intertrigo; M79.3 Panniculitis, unspecified; I89.0 Lymphedema, not elsewhere classified; Z98.84 Bariatric surgery status; L97.122 Non-pressure chronic ulcer of left thigh with fat layer exposed; E66.01 Morbid (severe) obesity due to excess calories; R60.0 Localized edema; Z87.891 Personal history of nicotine dependence; Z68.43 Body mass index [BMI] 50.0-59.9, adult
CPT/HCPCS: 11042; 11045

== ENCOUNTER 2021-08-23 13:00 | Outpatient (RCR) | payer MEDICAID, SELFPAY ==
[2021-08-11 00:12] VITALS: BP 126/90; PULSE 79; RESP 16; TEMP 35.8; BMI 54.5
[2021-08-23 13:04] VITALS: BP 156/103; RESP 18; TEMP 29.4; BMI 54.5
--- NOTE | 2021-08-23 15:26 | PN.PCM_ITS ---
History of Present Illness Date of Service: 08/23/21 Chief Complaint: Nonhealing ulcer left medial thigh. History of Wound: 46 year old man presents with areas of redundant skin and subcutaneous tissue in his bilateral medial thighs and abdominal panniculus with associated panniculitis. There is abdominal wall skin crease intertrigo and bilateral medial thigh intertrigo for which he uses powders for relief. This excess skin and subcutaneous tissue was the result of bariatric surgery done in [place] in May,. He lost about 250 lbs and his current weight is about 440 lbs. He has a history of lower extremity lymphedema resulting from the extreme body weight and has persistent dependent edema in his medial thighs which aggravates his symptomatology. He denies trauma. He denies fever. Both areas bother him but the medial thighs are his initial priority as he has trouble with ambulating. We have received medical approval from his insurance company for his thigh surgery. Surgery 09/22/20 - Excision redundant skin and subcutaneous tissue left medial and posterior thigh with dermolipectomy. Wound care - Collagen hydrogel covered with adpatic, covered with ABD. GRACIA wrap for compression. Will reorder vascular studies. Today he denies fever and chills and states his appetite is good. Progress of Wound: Left medial thigh ulcer is improved. Objective Data Objective Data Vital Signs: Vital Signs Temp Pulse Resp BP 85 F L 79 18 156/103 H 08/23/21 13:04 08/11/21 00:12 08/23/21 13:04 08/23/21 13:04 Oxygen Delivery Method Room Air Body Mass Index (BMI) 54.5 Charges/Coding Procedures Integumentary 111xxx-113xx: 44847 Margarita subq tissue 20 sq cm/< Physical Exam Const alert and oriented x3 General Appearance: cooperative HEENT normocephalic Head and Scalp: atraumatic Resp normal respiratory effort Cardio regular rate GI non-tender Palpation: soft Extremity normal capillary refill Skin Wound Narrative: Left medial leg ulcer is pink, decreasing in size, there is some dry scabbing present on the superior aspect of the scarring that has healed. Neuro CN's II-XII intact bilaterally Psych Appearance: grossly normal Debridement Note Debridement Note Wound debrided: medial thigh ulcer Laterality: Left Type of Debridement: Excisional debridement Anesthesia Used: 4% Lidocaine Solution Depth: Down to and including healthy tissue and in the subcutaneous layer Percentage of wound debrided: 100 Instrument Used: 5mm curette Tissue Removed: Subcutaneous tissue and slough Severity: Fat Layer Exposed Amount of bleeding with debridement: Mild Bleeding Controlled with: Pressure, Compression and gauze and Silver Nitrate (At 2 o'clock) Patient tolerated procedure: Patient tolerated procedure well Post-Debridement Measurements and Additional Note: Post-Debridement Measure ments/Treatment - Nurse 1 - General Ulcer Assessment Start: 08/23/21 13:03 Freq: Status: Active Protocol: WILLIAM Activity Type Activity Date Activity User E-Sign Co-Sign Detail Recorded Client Recorded Date Recorded By Document 08/23/21 13:04 [facility] [id number] 08/23/21 13:10 [facility] 08/23/21 13:04 WC - Today's Visit Information Type of service 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 ) Arrival Mode Ambulatory Transfer Assistance None Patient Identification Verified (Name & Yes ) Patient Requires Transmission-Based No Precautions Height and Weight Body Mass Index (BMI) 54.5 BMI Classification Obese Vital Signs Temperature (97.8 F-99.1 F) 85 F L Temperature Source Temporal Pulse Location Monitor Respiratory Rate (12-18) 18 Respiratory rate source Observation Oxygen Delivery Method Room Air Blood Pressure (90/60-120/80) 156/103 H Blood Pressure Mean (mm Hg) 120 Source Monitor Position Sitting Blood Pressure Location Left Forearm History Since Last Visit- (Skip if this is Patient's initial visit) Have you changed medications since your No last visit? Any new allergies or adverse reactions No Had a fall/change in ADL's that may No increase risk of falls Signs or symptoms of abuse and/or No neglect since last visit Have you been in the hospital since your No last visit? Has dressing in place as prescribed Yes Has compression in place as prescribed Yes Has offloadiing in place as prescribed N/A Experienced any changes in pain level or No management Left Footwear Regular Shoe Right Footwear Regular Shoe Pain Scale: 0-10 Numeric Is Patient Pain Free? Yes - Nurse 1 - General Ulcer Measurement Start: 08/23/21 13:03 Freq: Status: Active Protocol: Activity Type Activity Date Activity User E-Sign Co-Sign Detail Recorded Client Recorded Date Recorded By Document 08/23/21 13:04 [facility] [id number] 08/23/21 13:10 [facility] 08/23/21 13:04 Wound Center Nurse 1 #9 left medial groin/thigh -Combined with other wound No -Current Size (cm) - Length 9.9 -Current Size (cm) - Width 7 -Current Size (cm) - Depth 0.1 -Total Square Cm 69.3 -Photo Taken No -Epithelialization None Present -Tunneling No -Undermining/Tunneling No -Circular Undermining No -Exudate Amt Medium -Exudate Type Serosanguineous -Wound Margin Distinct, Outline Attached -Granulation Amt Small (1-33%) -Granulation Quality Red -Slough/Fibrin Yes -Necrosis Amt Large (67-100%) -Necrotic Tissue Type Adherent Slough -Texture (Josephine-wound Skin Appearance) Assessed, Scarring -Moisture (Josephine-wound Skin Appearance) Assessed,Dry/ Scaly -Color (Josephine-wound Skin Appearance) Assessed -Temperature (Josephine-wound Skin No Abnormality Appearance) (Pt Warm) -Tenderness on Palpation (Josephine-wound No Skin Appearance) -Ulcer Cleansing Rinsed/ Irrigated with Saline -Foul Odor after Cleansing No -Anesthetic Used 4% Lidocaine Solution WC - Nurse 2 - General Ulcer CM Notes Start: 08/23/21 13:03 Freq: Status: Active Protocol: Activity Type Activity Date Activity User E-Sign Co-Sign Detail Recorded Client Recorded Date Recorded By Document 08/23/21 13:28 MW [id number] 08/23/21 13:40 MW 08/23/21 13:28 Wound Center Nurse 2 -Time 13:28 -Correct Patient Yes -Correct Side, Site, Position Yes -Correct Procedure Yes -Procedure Performed Yes -Type of Procedure Debridement -Clinical Debridement Subcutaneous -Tissue Removed Subcutaneous -Post Debridement (cm) - Length 4.3 -Post Debridement (cm) - Width 8.0 -Post Debridement (cm) - Depth 0.2 -Total Square (Post) (cm) 34.40 -Area of Debridement (cm) - Length 4.3 -Area of Debridement (cm) - Width 8.0 -Total Square (Area) (cm) 34.40 -Tunneling No -Undermining/Tunneling No -Circular Undermining No -Wound/Ulcer Outcome Not Healed -Ulcer Cleansing Rinsed/ Irrigated with Saline -Foul Odor after Cleansing No -Bioengineered Tissue No -Bleeding Controlled with Pressure -Offloading No -Treatment Response Procedure Tolerated Well -Debridement - Subq, 1st 20sq cm Yes -Debridement, SubQ, ea addt'l 20sq cm 1 or part thereof Pain Scale: 0-10 Numeric Is Patient Pain Free? Yes - Nurse 3 - General Ulcer D/C NN Start: 08/23/21 13:03 Freq: Status: Active Protocol: Activity Type Activity Date Activity User E-Sign Co-Sign Detail Recorded Client Recorded Date Recorded By Document 08/23/21 13:57 DL [id number] 08/23/21 13:58 DL 08/23/21 13:57 Wound Care Nurse 3 #9 left medial groin/thigh -Ulcer Cleansing Soap and Water -Foul Odor after Cleansing No -Primary Dressing Applied C Hydrogel ($), NonAdherent Contact Layer -Primary Dressing Covered/Secured with Dry Gauze, Secured with Tape -Other Covering ABD Treatment Response Procedure Tolerated Well Pain Scale: 0-10 Numeric Is Patient Pain Free? Yes - Visit Discharge Discharge Condition Stable Ambulatory Status Ambulatory Transportation Private Auto Assessment/Plan Assessment/Plan (1) Chronic ulcer of left thigh with fat layer exposed: CODE(S): L97.122 - Non-pressure chronic ulcer of left thigh with fat layer exposed (2) Excessive body weight loss: CODE(S): R63.4 - Abnormal weight loss (3) Edema of both lower extremities: CODE(S): R60.0 - Localized edema (4) Excessive and redundant skin and subcutaneous tissue: CODE(S): L98.7 - Excessive and redundant skin and subcutaneous tissue (5) Intertrigo: CODE(S): L30.4 - Erythema intertrigo (6) Former smoker: CODE(S): Z87.891 - Personal history of nicotine dependence (7) Chronic acquired lymphedema: CODE(S): I89.0 - Lymphedema, not elsewhere classified PLAN: Wound care - Collagen hydrogel covered with adaptic daily topped by ABD and a GRACIA wrap for compression. Re-ordered arterial and venous studies so we can obtain the appropriate amount of compression. He is also interested in lymphedema pumps after he is done with the surgery on both thighs. In the past he has never been able to have pumps that would fit him due to the redundant skin. Encouraged increase protein and fluid intake to help with wound healing. He is ready to proceed with the dermolipectomy right medial thigh after the first of the year. Dr. Kinney came in and discussed surgery with him. Will schedule the surgery under general anesthesia with a surgical observation overnight stay. The left medial thigh ulcer is ready for operative debridement and skin grafting. At the time of the dermolipectomy on the right, will obtain wound culture on the left and treat with antibiotics if positive. After the right medial thigh wound has stabilized postop, can then discuss delayed closure with skin grafting for bilateral thigh ulcers. Patient was in agreement. Patient was informed of the risks and complications of the procedure including alternatives to surgery. These were discussed with him personally. He voices understanding and wishes to proceed. Follow up in 2 weeks
== END 2021-09-10 23:59 ==
LOC: WC 13:00
PROVIDERS: PCP Internal Medicine; Referring Provider Internal Medicine; Visit Provider Nurse Practitioner Family
DX: L98.7 Excessive and redundant skin and subcutaneous tissue (principal); L30.4 Erythema intertrigo; M79.3 Panniculitis, unspecified; R60.0 Localized edema; I89.0 Lymphedema, not elsewhere classified; L97.122 Non-pressure chronic ulcer of left thigh with fat layer exposed; Z87.891 Personal history of nicotine dependence; Z98.84 Bariatric surgery status
CPT/HCPCS: 11042; 11045

== ENCOUNTER 2021-09-28 14:08 | Outpatient (CLI) | payer MEDICAID, SELFPAY | END 2021-09-28 23:59 | disposition short-term general hospital (02) | LOC: LABSPEC 14:10 | PROVIDERS: PCP Internal Medicine; Referring Provider Physician Assistant Surgical; Visit Provider Physician Assistant Surgical | DX: Z11.52 Encounter for screening for COVID-19 (principal) | CPT/HCPCS: 87635; U0003; U0005 ==

== ENCOUNTER 2021-10-11 13:45 | Outpatient (RCR) | payer MEDICAID, SELFPAY ==
[2021-09-11 00:13] VITALS: BP 156/103; PULSE 79; RESP 18; TEMP 29.4; BMI 54.5
[2021-09-20 12:59] VITALS: BP 155/88; PULSE 53; RESP 18; BMI 54.5
--- NOTE | 2021-09-20 14:00 | PN.PCM_ITS ---
History of Present Illness Date of Service: 09/20/21 Chief Complaint: Nonhealing ulcer left medial thigh. History of Wound: 46 year old man presents with areas of redundant skin and subcutaneous tissue in his bilateral medial thighs and abdominal panniculus with associated panniculitis. There is abdominal wall skin crease intertrigo and bilateral medial thigh intertrigo for which he uses powders for relief. This excess skin and subcutaneous tissue was the result of bariatric surgery done in [place] in May,. He lost about 250 lbs and his current weight is about 440 lbs. He has a history of lower extremity lymphedema resulting from the extreme body weight and has persistent dependent edema in his medial thighs which aggravates his symptomatology. He denies trauma. He denies fever. Both areas bother him but the medial thighs are his initial priority as he has trouble with ambulating. We have received medical approval from his insurance company for his thigh surgery. Surgery 09/22/20 - Excision redundant skin and subcutaneous tissue left medial and posterior thigh with dermolipectomy. Wound care - Collagen hydrogel covered with adpatic, covered with ABD. GRACIA wrap for compression. Will reorder vascular studies. Today he denies fever and chills and states his appetite is good. Progress of Wound: Improved. Objective Data Objective Data Vital Signs: Vital Signs Temp Pulse Resp BP 85 F L 53 L 18 155/88 H 09/11/21 00:13 09/20/21 12:59 09/20/21 12:59 09/20/21 12:59 Oxygen Delivery Method Room Air Body Mass Index (BMI) 54.5 Charges/Coding Procedures Integumentary 111xxx-113xx: 78163 Margarita subq tissue 20 sq cm/< Add On Codes: 15322 Margarita subq tissue add-on Physical Exam Const alert and oriented x3 General Appearance: cooperative HEENT normocephalic Head and Scalp: atraumatic Resp normal respiratory effort Cardio regular rate GI non-tender Palpation: soft Extremity normal capillary refill General Extremity: edema Skin Wound Narrative: Left medial leg ulcer is improved, beefy pink. Neuro CN's II-XII intact bilaterally Psych Appearance: grossly normal Thought Process: normal thought process Debridement Note Debridement Note Wound debrided: medial leg ulcer. Laterality: Left Type of Debridement: Excisional debridement Anesthesia Used: 4% Lidocaine Solution Depth: Down to and including healthy tissue and in the subcutaneous layer Percentage of wound debrided: 100 Instrument Used: 5mm curette Tissue Removed: Subcutaneous tissue and slough Severity: Limited To Skin Breakdown Amount of bleeding with debridement: Mild Bleeding Controlled with: Compression and gauze Patient tolerated procedure: Patient tolerated procedure well Post-Debridement Measurements and Additional Note: Post-Debridement Measurements/Treatment - Nurse 1 - General Ulcer Assessment Start: 09/20/21 12:59 Freq: Status: Active Protocol: WILLIAM Activity Type Activity Date Activity User E-Sign Co-Sign Detail Recorded Client Recorded Date Recorded By Document 09/20/21 12:59 [facility] [id number] 09/20/21 13:05 [facility] 09/20/21 12:59 WC - Today's Visit Information Type of service 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/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 ) Arrival Mode Ambulatory Transfer Assistance None Patient Identification Verified (Name & Yes ) Patient Requires Transmission-Based No Precautions Height and Weight Body Mass Index (BMI) 54.5 BMI Classification Obese Vital Signs Pulse Rate (60-100) 53 L Pulse Location Monitor Respiratory Rate (12-18) 18 Respiratory rate source Observation Oxygen Delivery Method Room Air Blood Pressure (90/60-120/80) 155/88 H Blood Pressure Mean (mm Hg) 110 Source Monitor Position Sitting Blood Pressure Location Right Arm History Since Last Visit- (Skip if this is Patient's initial visit) Have you changed medications since your No last visit? Any new allergies or adverse reactions No Had a fall/change in ADL's that may No increase risk of falls Signs or symptoms of abuse and/or No neglect since last visit Have you been in the hospital since your No last visit? Has dressing in place as prescribed Yes Has compression in place as prescribed Yes Has offloadiing in place as prescribed N/A Experienced any changes in pain level or No management Left Footwear Regular Shoe Right Footwear Regular Shoe Pain Scale: 0-10 Numeric Is Patient Pain Free? Yes [facility] Nurse 1 - General Ulcer Measurement Start: 09/20/21 12:59 Freq: Status: Active Protocol: Activity Type Activity Date Activity User E-Sign Co-Sign Detail Recorded Client Recorded Date Recorded By Document 09/20/21 12:59 [facility] [id number] 09/20/21 13:05 [facility] 09/20/21 12:59 Wound Center Nurse 1 #9 left medial groin/thigh -Combined with other wound No -Current Size (cm) - Length 8 -Current Size (cm) - Width 4.6 -Current Size (cm) - Depth 0.1 -Total Square Cm 36.8 -Photo Taken No -Epithelialization Small 1-33% -Tunneling No -Undermining/Tunneling No -Circular Undermining No -Exudate Amt Medium -Exudate Type Serosanguineous -Wound Margin Distinct, Outline Attached -Granulation Amt Medium (34-66%) -Granulation Quality Red -Slough/Fibrin Yes -Necrosis Amt Medium (34-66%) -Necrotic Tissue Type Adherent Slough -Texture (Josephine-wound Skin Appearance) Assessed, Scarring -Moisture (Josephine-wound Skin Appearance) Assessed,Dry/ Scaly -Color (Josephine-wound Skin Appearance) Assessed -Temperature (Josephine-wound Skin No Abnormality Appearance) (Pt Warm) -Tenderness on Palpation (Josephine-wound No Skin Appearance) -Ulcer Cleansing Rinsed/ Irrigated with Saline -Foul Odor after Cleansing No -Anesthetic Used 4% Lidocaine Solution WC - Nurse 2 - General Ulcer CM Notes Start: 09/20/21 12:59 Freq: Status: Active Protocol: Activity Type Activity Date Activity User E-Sign Co-Sign Detail Recorded Client Recorded Date Recorded By Document 09/20/21 13:15 JOHN [id number] 09/20/21 13:18 JOHN 09/20/21 13:15 Wound Center Nurse 2 -Time 13:15 -Correct Patient Yes -Correct Side, Site, Position Yes -Correct Procedure Yes -Procedure Performed Yes -Type of Procedure Debridement -Clinical Debridement Subcutaneous -Tissue Removed Subcutaneous -Post Debridement (cm) - Length 4.0 -Post Debridement (cm) - Width 7.0 -Post Debridement (cm) - Depth 0.1 -Total Square (Post) (cm) 28.00 -Area of Debridement (cm) - Length 4 -Area of Debridement (cm) - Width 7 -Total Square (Area) (cm) 28 -Tunneling No -Undermining/Tunneling No -Circular Undermining No -Wound/Ulcer Outcome Not Healed -Ulcer Cleansing Rinsed/ Irrigated with Saline -Foul Odor after Cleansing No -Bioengineered Tissue No -Bleeding Controlled with Pressure -Offloading No -Treatment Response Procedure Tolerated Well -Debridement - Subq, 1st 20sq cm Yes -Debridement, SubQ, ea addt'l 20sq cm 1 or part thereof Pain Scale: 0-10 Numeric Is Patient Pain Free? Yes - Nurse 3 - General Ulcer D/C NN Start: 09/20/21 12:59 Freq: Status: Active Protocol: Activity Type Activity Date Activity User E-Sign Co-Sign Detail Recorded Client Recorded Date Recorded By Document 09/20/21 13:26 DL [id number] 09/20/21 13:28 DL 09/20/21 13:26 Wound Care Nurse 3 #9 left medial groin/thigh -Ulcer Cleansing Rinsed/ Irrigated with Saline -Foul Odor after Cleansing No -Primary Dressing Applied C Hydrogel ($), NonAdherent Contact Layer -Primary Dressing Covered/Secured with Dry Gauze, Secured with Tape Treatment Response Procedure Tolerated Well Pain Scale: 0-10 Numeric Is Patient Pain Free? Yes WC - Visit Discharge Discharge Condition Stable Ambulatory Status Ambulatory Transportation Private Auto Assessment/Plan Assessment/Plan (1) Chronic ulcer of left thigh with fat layer exposed: CODE(S): L97.122 - Non-pressure chronic ulcer of left thigh with fat layer exposed (2) Excessive body weight loss: CODE(S): R63.4 - Abnormal weight loss (3) Edema of both lower extremities: CODE(S): R60.0 - Localized edema (4) Excessive and redundant skin and subcutaneous tissue: CODE(S): L98.7 - Excessive and redundant skin and subcutaneous tissue (5) Intertrigo: CODE(S): L30.4 - Erythema intertrigo (6) Former smoker: CODE(S): Z87.891 - Personal history of nicotine dependence (7) Chronic acquired lymphedema: CODE(S): I89.0 - Lymphedema, not elsewhere classified PLAN: Wound care - Collagen hydrogel covered with adaptic daily topped by ABD and a GRACIA wrap for compression. Re-ordered arterial and venous studies so we can obtain the appropriate amount of compression. He is also interested in lymphedema pumps after he is done with the surgery on both thighs. In the past he has never been able to have pumps that would fit him due to the redundant skin. Encouraged increase protein and fluid intake to help with wound healing. He is ready to proceed with the dermolipectomy right medial thigh after the first of the year. Dr. Kinney came in and discussed surgery with him. Will schedule the surgery under general anesthesia with a surgical observation overnight stay. The left medial thigh ulcer is ready for operative debridement and skin grafting. At the time of the dermolipectomy on the right, will obtain wound culture on the left and treat with antibiotics if positive. After the right medial thigh wound has stabilized postop, can then discuss delayed closure with skin grafting for bilateral thigh ulcers. Patient was in agreement. Patient was informed of the risks and complications of the procedure including alternatives to surgery. These were discussed with him personally. He voices understanding and wishes to proceed. Follow up in 2 weeks
[2021-10-11 13:55] VITALS: BP 143/73; PULSE 77; TEMP 36.1; BMI 54.5
--- NOTE | 2021-10-11 18:19 | PCM.WC.PN ---
History of Present Illness Date of Service: 10/11/21 Chief Complaint: Nonhealing ulcer left medial thigh. History of Wound: 46 year old man presents with areas of redundant skin and subcutaneous tissue in his bilateral medial thighs and abdominal panniculus with associated panniculitis. There is abdominal wall skin crease intertrigo and bilateral medial thigh intertrigo for which he uses powders for relief. This excess skin and subcutaneous tissue was the result of bariatric surgery done in [place] in May,. He lost about 250 lbs and his current weight is about 440 lbs. He has a history of lower extremity lymphedema resulting from the extreme body weight and has persistent dependent edema in his medial thighs which aggravates his symptomatology. He denies trauma. He denies fever. Both areas bother him but the medial thighs are his initial priority as he has trouble with ambulating. We have received medical approval from his insurance company for his thigh surgery. Surgery 09/22/20 - Excision redundant skin and subcutaneous tissue left medial and posterior thigh with dermolipectomy. Wound care - Collagen hydrogel covered with adpatic, covered with ABD. DESMOND wrap for compression. Will reorder vascular studies. Today he denies fever and chills and states his appetite is good. Progress of Wound: Left thigh ulcer is smaller in size. Melony is some thick, dried, scabbing on the edges of the ulcer that is difficult to remove without removing the new, fragile epithelial tissue. Objective Data Objective Data Vital Signs: Vital Signs Temp Pulse Resp BP 96.9 F L 77 18 143/73 H 10/11/21 13:55 10/11/21 13:55 09/20/21 12:59 10/11/21 13:55 Oxygen Delivery Method Room Air Body Mass Index (BMI) 54.5 Charges/Coding Procedures Integumentary 111xxx-113xx: 87322 Margarita subq tissue 20 sq cm/< Physical Exam Const alert and oriented x3 General Appearance: cooperative HEENT normocephalic Resp normal respiratory effort Cardio regular rate Extremity normal capillary refill General Extremity: edema Skin Wound Narrative: Left medial leg ulcer is pink in the center with thick, dry scabby tissue surrounding the ulcer. Neuro CN's II-XII intact bilaterally Psych Appearance: grossly normal Debridement Note Debridement Note Wound debrided: medial leg ulcer Laterality: Left Type of Debridement: Excisional debridement Anesthesia Used: 5% Lidocaine Gel Depth: Down to and including healthy tissue and in the subcutaneous layer Percentage of wound debrided: 100 Instrument Used: 5mm curette Tissue Removed: Subcutaneous tissue and slough Severity: Fat Layer Exposed Amount of bleeding with debridement: Mild Bleeding Controlled with: Pressure and Compression and gauze Patient tolerated procedure: Patient tolerated procedure well Post-Debridement Measurements and Additional Note: Post-Debridement Measurements/Treatment [facility]COSTA - Nurse 1 - General Ulcer Assessment Start: 09/20/21 12:59 Freq: Status: Active Protocol: WILLIAM Activity Type Activity Date Activity User E-Sign Co-Sign Detail Recorded Client Recorded Date Recorded By Document 09/20/21 12:59 [facility] [id number] 09/20/21 13:05 [facility] Document 10/11/21 13:55 [place] [id number] 10/11/21 13:58 [place] 09/20/21 10/11/21 12:59 13:55 - Today's Visit Information Type of service Follow-up Visit 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/FOOD SERVICE UTILITY 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 (Physician/FOOD SERVICE UTILITY WORKER ) ) Arrival Mode Ambulatory Ambulatory Transfer Assistance None Patient Identification Verified (Name & Yes Yes ) Patient Requires Transmission-Based No No Precautions Safety Precautions NA Height and Weight Body Mass Index (BMI) 54.5 54.5 BMI Classification Obese Obese Temperature (97.8 F-99.1 F) 96.9 F L Temperature Source Temporal Vital Signs Pulse Rate (60-100) 53 L 77 Pulse Location Monitor Monitor Respiratory Rate (12-18) 18 Respiratory rate source Observation Oxygen Delivery Method Room Air Blood Pressure (90/60-120/80) 155/88 H 143/73 H Blood Pressure Mean (mm Hg) 110 96 Source Monitor Monitor Position Sitting Blood Pressure Location Right Arm History Since Last Visit- (Skip if this is Patient's initial visit) Have you changed medications since your No No last visit? Any new allergies or adverse reactions No No Had a fall/change in ADL's that may No No increase risk of falls Signs or symptoms of abuse and/or No No neglect since last visit Have you been in the hospital since your No No last visit? Has dressing in place as prescribed Yes Yes Has compression in place as prescribed Yes N/A Has offloadiing in place as prescribed N/A N/A Experienced any changes in pain level or No No management Left Footwear Regular Shoe Regular Shoe Right Footwear Regular Shoe Regular Shoe Pain Scale: 0-10 Numeric Is Patient Pain Free? Yes Yes - Nurse 1 - General Ulcer Measurement Start: 09/20/21 12:59 Freq: Status: Active Protocol: Activity Type Activity Date Activity User E-Sign Co-Sign Detail Recorded Client Recorded Date Recorded By Document 09/20/21 12:59 [facility] [id number] 09/20/21 13:05 [facility] Document 10/11/21 13:55 [place] [id number] 10/11/21 13:58 [place] 09/20/21 10/11/21 12:59 13:55 Wound Center Nurse 1 #9 left medial groin/thigh -Combined with other wound No No -Current Size (cm) - Length 8 8.6 -Current Size (cm) - Width 4.6 2 -Current Size (cm) - Depth 0.1 0.1 -Total Square Cm 36.8 17.2 -Photo Taken No No -Epithelialization Small 1-33% -Tunneling No No -Undermining/Tunneling No No -Circular Undermining No No -Change in Wound Grade/Stage No -Exudate Amt Medium Small -Exudate Type Serosanguineous Serosanguineous -Wound Margin Distinct, Distinct, Outline Outline Attached Attached -Granulation Amt Medium (34-66%) Medium (34-66%) -Granulation Quality Red Arial -Slough/Fibrin Yes Yes -Necrosis Amt Medium (34-66%) Medium (34-66%) -Necrotic Tissue Type Adherent Slough Adherent Slough -Structure Exposed N/A -Texture (Josephine-wound Skin Appearance) Assessed, Assessed, Scarring Scarring -Moisture (Josephine-wound Skin Appearance) Assessed,Dry/ No Abnormality, Scaly Assessed -Color (Josephine-wound Skin Appearance) Assessed No Abnormality, Assessed -Temperature (Josephine-wound Skin No Abnormality No Abnormality Appearance) (Pt Warm) (Pt Warm) -Tenderness on Palpation (Josephine-wound No No Skin Appearance) -Ulcer Cleansing Rinsed/ Soap and Water Irrigated with Saline -Foul Odor after Cleansing No No -Anesthetic Used 4% Lidocaine 4% Lidocaine Solution Solution [facility]STA - Nurse 2 - General Ulcer CM Notes Start: 09/20/21 12:59 Freq: Status: Active Protocol: Activity Type Activity Date Activity User E-Sign Co-Sign Detail Recorded Client Recorded Date Recorded By Document 09/20/21 13:15 [id number] 09/20/21 13:18 Document 10/11/21 14:09 [id number] 10/11/21 14:11 09/20/21 10/11/21 13:15 14:09 Wound Center Nurse 2 #9 left medial groin/thigh -Time 13:15 14:11 -Correct Patient Yes Yes -Correct Side, Site, Position Yes Yes -Correct Procedure Yes Yes -Procedure Performed Yes Yes -Type of Procedure Debridement Debridement -Clinical Debridement Subcutaneous Subcutaneous -Tissue Removed Subcutaneous Subcutaneous -Post Debridement (cm) - Length 4.0 2.5 -Post Debridement (cm) - Width 7.0 6.5 -Post Debridement (cm) - Depth 0.1 0.1 -Total Square (Post) (cm) 28.00 16.25 -Area of Debridement (cm) - Length 4 2.5 -Area of Debridement (cm) - Width 7 6.5 -Total Square (Area) (cm) 28 16.25 -Tunneling No No -Undermining/Tunneling No No -Circular Undermining No No -Wound/Ulcer Outcome Not Healed Not Healed -Ulcer Cleansing Rinsed/ Rinsed/ Irrigated with Irrigated with Saline Saline -Foul Odor after Cleansing No No -Bioengineered Tissue No No -Bleeding Controlled with Pressure Pressure -Offloading No No -Treatment Response Procedure Procedure Tolerated Well Tolerated Well -Debridement - Subq, 1st 20sq cm Yes Yes -Debridement, SubQ, ea addt'l 20sq cm 1 or part thereof Pain Scale: 0-10 Numeric Is Patient Pain Free? Yes Yes - Nurse 3 - General Ulcer D/C NN Start: 09/20/21 12:59 Freq: Status: Active Protocol: Activity Type Activity Date Activity User E-Sign Co-Sign Detail Recorded Client Recorded Date Recorded By Document 09/20/21 13:26 [id number] 09/20/21 13:28 Document 10/11/21 14:29 [facility] [id number] 10/11/21 14:30 [facility] 09/20/21 10/11/21 13:26 14:29 Wound Care Nurse 3 #9 left medial groin/thigh -Ulcer Cleansing Rinsed/ Rinsed/ Irrigated with Irrigated with Saline Saline -Foul Odor after Cleansing No No -Primary Dressing Applied C Hydrogel ($), Mepilex Border, NonAdherent NonAdherent Contact Layer Contact Layer, Other -Other Dressing hydrogel -Primary Dressing Covered/Secured with Dry Gauze, Secured with Tape -Mepilex Border 2 Left -Compression Wrap Desmond Wrap Treatment Response Procedure Procedure Tolerated Well Tolerated Well Pain Scale: 0-10 Numeric Is Patient Pain Free? Yes Yes WC - Visit Discharge Discharge Condition Stable Stable Ambulatory Status Ambulatory Ambulatory Transportation Private Auto Private Auto Assessment/Plan Assessment/Plan (1) Chronic ulcer of left thigh with fat layer exposed: CODE(S): L97.122 - Non-pressure chronic ulcer of left thigh with fat layer exposed (2) Excessive body weight loss: CODE(S): R63.4 - Abnormal weight loss (3) Excessive and redundant skin and subcutaneous tissue: CODE(S): L98.7 - Excessive and redundant skin and subcutaneous tissue (4) Intertrigo: CODE(S): L30.4 - Erythema intertrigo (5) Edema of both lower extremities: CODE(S): R60.0 - Localized edema (6) Chronic acquired lymphedema: CODE(S): I89.0 - Lymphedema, not elsewhere classified (7) Former smoker: CODE(S): Z87.891 - Personal history of nicotine dependence PLAN: Wound care - Collagen hydrogel covered with adaptic daily topped by Keramax super absorber or ABD and a DESMOND wrap for compression. Re-ordered arterial and venous studies so we can obtain the appropriate amount of compression. He is also interested in lymphedema pumps after he is done with the surgery on both thighs. In the past he has never been able to have pumps that would fit him due to the redundant skin. Encouraged increase protein and fluid intake to help with wound healing. He is ready to proceed with the dermolipectomy right medial thigh after the first of the year. Dr. Kinney came in and discussed surgery with him. Will schedule the surgery under general anesthesia with a surgical observation overnight stay. The left medial thigh ulcer is ready for operative debridement and skin grafting. At the time of the dermolipectomy on the right, will obtain wound culture on the left and treat with antibiotics if positive. After the right medial thigh wound has stabilized postop, can then discuss delayed closure with skin grafting for bilateral thigh ulcers. Patient was in agreement. Patient was informed of the risks and complications of the procedure including alternatives to surgery. These were discussed with him personally. He voices understanding and wishes to proceed. Follow up in 2 weeks
== END 2021-10-11 23:59 ==
LOC: WC 13:45
PROVIDERS: PCP Internal Medicine; Referring Provider Internal Medicine; Visit Provider Nurse Practitioner Family
DX: L97.122 Non-pressure chronic ulcer of left thigh with fat layer exposed (principal); L98.7 Excessive and redundant skin and subcutaneous tissue; R60.0 Localized edema; I89.0 Lymphedema, not elsewhere classified; Z87.891 Personal history of nicotine dependence; L30.4 Erythema intertrigo; Z98.84 Bariatric surgery status; M79.3 Panniculitis, unspecified
CPT/HCPCS: 11042; 11045

== ENCOUNTER 2021-10-20 14:55 | Outpatient (CLI) | payer MEDICAID, SELFPAY ==
[2021-10-20 16:55] LABS: Absolute Lymphocyte Count 1.45 X10^3/uL (0.83-4.51); Absolute Neutrophil Count 7.1 X10^3/uL (2.0-7.7); Basophil# 0.04 X10^3/uL; Basophil% 0.4 % (0-1); Eosinophil# 0.13 X10^3/uL; Eosinophils% 1.4 % (0-5); Hematocrit 39.7 % (40-54); Hemoglobin 13.8 g/dL (13.0-16.5); Lymphocyte # 1.45 X10^3/ul (0.83-4.51); Lymphocyte % 15.3 % (19-41); Mean Corp Hgb Conc 34.8 g/dL (32-36); Mean Corpuscular Hgb 27.3 pg (27.0-32.0); Mean Corpuscular Volume 78.6 fL (80-94); Mean Platelet Vol. 9.9 fl (6.2-12.0); Monocyte% 7.4 % (0-10); NRBC Flagged by Analyzer 0 % (0-5); Neutrophil # 7.11 X10^3/uL (2.7-7.7); Neutrophil % 75.1 % (47-70); Platelet Count 282 K/mm3 (150-450); RBC Distribution Width SD 47.5 fl (35.1-43.9); Red Blood Count 5.05 M/mm3 (4.6-6.2); White Blood Count 9.5 K/mm3 (4.4-11.0)
[2021-10-20 17:19] LABS: ALB/GLOB Ratio 0.8 RATIO (0.9-2.4); AST(SGOT) 16 U/L (15-37); Alanine Aminotransfer ALT/SGPT 31 U/L (16-61); Albumin, Serum 3.8 g/dL (3.2-5.0); Alkaline Phosphatase 110 U/L (45-117); Anion Gap 7 (5-15); BUN 22 mg/dL (7-18); BUN/Creat Ratio 20.4 RATIO (10-20); Calcium,Total 8.9 mg/dL (8.5-10.1); Chloride 105 mmol/L (98-107); Cholesterol 138 mg/dL (200); Creatinine, Serum 1.08 mg/dL (0.70-1.30); EST Glomerular Filtration Rate 78 mL/min (>60); Est Glom Filt Rate - Afr Amer 94 mL/min (>60); Globulin 4.6 g/dL (2.2-4.2); Glucose 95 mg/dL (74-106); High Density Lipoprotein 39 mg/dL; Potassium 3.9 mmol/L (3.5-5.1); Protein, Total 8.4 g/dL (6.4-8.2); Sodium Level 138 mmol/L (136-145); Thyroid Stim Hormone (TSH) 0.76 uIU/mL (0.358-3.74); Triglycerides 116 mg/dL; Very Low Density Lipoprotein 23 mg/dL (5-40)
== END 2021-10-20 23:59 | disposition home or self-care (01) ==
LOC: BIMLAB 14:56
PROVIDERS: PCP Internal Medicine; Referring Provider Nurse Practitioner Family; Visit Provider Nurse Practitioner Family
DX: I10 Essential (primary) hypertension (principal); E66.01 Morbid (severe) obesity due to excess calories; E78.5 Hyperlipidemia, unspecified
CPT/HCPCS: 36415; 80053; 80061; 84443; 85025

== ENCOUNTER 2021-11-08 13:15 | Outpatient (RCR) | payer MEDICAID, SELFPAY ==
[2021-10-12 00:19] VITALS: BP 143/73; PULSE 77; RESP 18; TEMP 36.1; BMI 54.5
[2021-10-25 13:46] VITALS: BP 152/83; PULSE 70; RESP 18; TEMP 36; BMI 54.5
--- NOTE | 2021-10-25 15:08 | PN.PCM_ITS ---
History of Present Illness Date of Service: 10/25/21 Chief Complaint: Nonhealing ulcer left medial thigh. History of Wound: 46 year old man presents with areas of redundant skin and subcutaneous tissue in his bilateral medial thighs and abdominal panniculus with associated panniculitis. There is abdominal wall skin crease intertrigo and bilateral medial thigh intertrigo for which he uses powders for relief. This excess skin and subcutaneous tissue was the result of bariatric surgery done in [place] in May,. He lost about 250 lbs and his current weight is about 440 lbs. He has a history of lower extremity lymphedema resulting from the extreme body weight and has persistent dependent edema in his medial thighs which aggravates his symptomatology. He denies trauma. He denies fever. Both areas bother him but the medial thighs are his initial priority as he has trouble with ambulating. We have received medical approval from his insurance company for his thigh surgery. Surgery 09/22/20 - Excision redundant skin and subcutaneous tissue left medial and posterior thigh with dermolipectomy. Wound care - Collagen hydrogel covered with adpatic, covered with ABD. DESMOND wrap for compression. Today he denies fever and chills and states his appetite is good. Progress of Wound: Left medial leg ulcer is a cluster and is much improved. There is dry scabbing surrounding the ulcer. The ulcer is now pink and superficial. Objective Data Objective Data Vital Signs: Vital Signs Temp Pulse Resp BP 96.8 F L 70 18 152/83 H 10/25/21 13:46 10/25/21 13:46 10/25/21 13:46 10/25/21 13:46 Oxygen Delivery Method Room Air Body Mass Index (BMI) 54.5 Charges/Coding Procedures Integumentary 111xxx-113xx: 76363 Margarita subq tissue 20 sq cm/< Physical Exam Const alert and oriented x3 General Appearance: cooperative HEENT normocephalic Head and Scalp: atraumatic Lymph Lymphatic Narrative: Bilateral lower extremity lymphedema. He is wearing compression Desmond wraps. Resp normal respiratory effort Cardio regular rate Extremity normal capillary refill General Extremity: edema Skin Wound Narrative: Left medial leg ulcer is a cluster and is much improved. There is dry scabbing surrounding the ulcer. The ulcer is now pink and superficial Neuro CN's II-XII intact bilaterally Psych Appearance: grossly normal Debridement Note Debridement Note Wound debrided: Medial leg ulcer cluster Laterality: Left Type of Debridement: Excisional debridement Anesthesia Used: 5% Lidocaine Gel Depth: Down to and including healthy tissue and in the subcutaneous layer Percentage of wound debrided: 100 Instrument Used: 3mm curette Tissue Removed: Slough and nonviable tissue Severity: Fat Layer Exposed Amount of bleeding with debridement: Mild Bleeding Controlled with: Pressure Patient tolerated procedure: Patient tolerated procedure well Post-Debridement Measurements and Additional Note: Post-Debridement Measurements/Treatment - Nurse 1 - General Ulcer Assessment Start: 10/25/21 13:45 Freq: Status: Active Protocol: WILLIAM Activity Type Activity Date Activity User E-Sign Co-Sign Detail Recorded Client Recorded Date Recorded By Document 10/25/21 13:46 [facility] [id number] 10/25/21 13:53 [facility] 10/25/21 13:46 WC - Today's Visit Information Type of service 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/TABLE MAKER ) Arrival Mode Ambulatory Transfer Assistance None Patient Identification Verified (Name & Yes ) Patient Requires Transmission-Based No Precautions Height and Weight Body Mass Index (BMI) 54.5 BMI Classification Obese Vital Signs Temperature (97.8 F-99.1 F) 96.8 F L Temperature Source Temporal Pulse Rate (60-100) 70 Pulse Location Monitor Respiratory Rate (12-18) 18 Respiratory rate source Observation Oxygen Delivery Method Room Air Blood Pressure (90/60-120/80) 152/83 H Blood Pressure Mean (mm Hg) 106 Source Monitor Position Sitting Blood Pressure Location Left Arm History Since Last Visit- (Skip if this is Patient's initial visit) Have you changed medications since your No last visit? Any new allergies or adverse reactions No Had a fall/change in ADL's that may No increase risk of falls Signs or symptoms of abuse and/or No neglect since last visit Have you been in the hospital since your No last visit? Has dressing in place as prescribed Yes Has compression in place as prescribed N/A Has offloadiing in place as prescribed N/A Experienced any changes in pain level or No management Left Footwear Regular Shoe Right Footwear Regular Shoe Pain Scale: 0-10 Numeric Is Patient Pain Free? Yes [facility] - Nurse 1 - General Ulcer Measurement Start: 10/25/21 13:45 Freq: Status: Active Protocol: Activity Type Activity Date Activity User E-Sign Co-Sign Detail Recorded Client Recorded Date Recorded By Document 10/25/21 13:46 [facility] [id number] 10/25/21 13:53 [facility] 10/25/21 13:46 Wound Center Nurse 1 #9 left medial groin/thigh -Combined with other wound No -Current Size (cm) - Length 6 -Current Size (cm) - Width 2 -Current Size (cm) - Depth 0.1 -Total Square Cm 12 -Date of Last Picture (Recall this 10/25/21 field) -Photo Taken Yes -Epithelialization Small 1-33% -Tunneling No -Undermining/Tunneling No -Circular Undermining No -Exudate Amt Medium -Exudate Type Serosanguineous -Wound Margin Distinct, Outline Attached -Granulation Amt Small (1-33%) -Granulation Quality [place] -Slough/Fibrin Yes -Necrosis Amt Large (67-100%) -Necrotic Tissue Type Adherent Slough -Texture (Josephine-wound Skin Appearance) Assessed, Scarring -Moisture (Josephine-wound Skin Appearance) Assessed,Dry/ Scaly -Color (Josephine-wound Skin Appearance) Assessed -Temperature (Josephine-wound Skin No Abnormality Appearance) (Pt Warm) -Tenderness on Palpation (Josephine-wound No Skin Appearance) -Ulcer Cleansing Rinsed/ Irrigated with Saline -Foul Odor after Cleansing No -Anesthetic Used 5% Lidocaine Gel WC - Nurse 2 - General Ulcer CM Notes Start: 10/25/21 13:45 Freq: Status: Active Protocol: Activity Type Activity Date Activity User E-Sign Co-Sign Detail Recorded Client Recorded Date Recorded By Document 10/25/21 14:10 [id number] 10/25/21 14:12 10/25/21 14:10 Wound Center Nurse 2 -Time 14:10 -Correct Patient Yes -Correct Side, Site, Position Yes -Correct Procedure Yes -Procedure Performed Yes -Type of Procedure Debridement -Clinical Debridement Subcutaneous -Tissue Removed Subcutaneous -Post Debridement (cm) - Length 5.0 -Post Debridement (cm) - Width 1.0 -Post Debridement (cm) - Depth 0.1 -Total Square (Post) (cm) 5.00 -Area of Debridement (cm) - Length 5.0 -Area of Debridement (cm) - Width 1.0 -Total Square (Area) (cm) 5.00 -Tunneling No -Undermining/Tunneling No -Circular Undermining No -Wound/Ulcer Outcome Not Healed -Ulcer Cleansing Rinsed/ Irrigated with Saline -Foul Odor after Cleansing No -Bioengineered Tissue No -Bleeding Controlled with Pressure -Offloading No -Treatment Response Procedure Tolerated Well -Debridement - Subq, 1st 20sq cm Yes Pain Scale: 0-10 Numeric Is Patient Pain Free? Yes - Nurse 3 - General Ulcer D/C NN Start: 10/25/21 13:45 Freq: Status: Active Protocol: Activity Type Activity Date Activity User E-Sign Co-Sign Detail Recorded Client Recorded Date Recorded By Document 10/25/21 14:26 [facility] [id number] 10/25/21 14:27 [facility] 10/25/21 14:26 Wound Care Nurse 3 #9 left medial groin/thigh -Ulcer Cleansing Rinsed/ Irrigated with Saline -Foul Odor after Cleansing No -Primary Dressing Applied Mepilex Border, NonAdherent Contact Layer, Other -Other Dressing hydrogel -Mepilex Border 1 Treatment Response Procedure Tolerated Well Pain Scale: 0-10 Numeric Is Patient Pain Free? Yes - Visit Discharge Discharge Condition Stable Ambulatory Status Ambulatory Transportation Private Auto Assessment/Plan Assessment/Plan (1) Chronic ulcer of left thigh with fat layer exposed: CODE(S): L97.122 - Non-pressure chronic ulcer of left thigh with fat layer exposed (2) Excessive body weight loss: CODE(S): R63.4 - Abnormal weight loss (3) Edema of both lower extremities: CODE(S): R60.0 - Localized edema (4) Excessive and redundant skin and subcutaneous tissue: CODE(S): L98.7 - Excessive and redundant skin and subcutaneous tissue (5) Intertrigo: CODE(S): L30.4 - Erythema intertrigo (6) Panniculitis: CODE(S): M79.3 - Panniculitis, unspecified (7) Abdominal panniculus: CODE(S): E65 - Localized adiposity (8) Former smoker: CODE(S): Z87.891 - Personal history of nicotine dependence (9) Chronic acquired lymphedema: CODE(S): I89.0 - Lymphedema, not elsewhere classified PLAN: Wound care - Collagen hydrogel covered with adaptic daily topped by Keramax super absorber or ABD and a DESMOND wrap for compression. Re-ordered arterial and venous studies so we can obtain the appropriate amount of compression. He is also interested in lymphedema pumps after he is done with the surgery on both thighs. In the past he has never been able to have pumps that would fit him due to the redundant skin. He is ready to proceed with the dermolipectomy right medial thigh after the first of the year. Dr. Kinney came in and discussed surgery with him. Will schedule the surgery under general anesthesia with a surgical observation overnight stay. The left medial thigh ulcer is ready for operative debridement and skin grafting. At the time of the dermolipectomy on the right, will obtain wound culture on the left and treat with antibiotics if positive. After the right medial thigh wound has stabilized postop, can then discuss delayed closure with skin grafting for bilateral thigh ulcers. Patient was in agreement. Patient was informed of the risks and complications of the procedure including alternatives to surgery. These were discussed with him personally. He voices understanding and wishes to proceed. Follow up in 2 weeks
[2021-11-08 13:15] VITALS: BP 172/85; PULSE 61; RESP 20; TEMP 36.1; BMI 54.5
--- NOTE | 2021-11-08 13:43 | PN.PCM_ITS ---
History of Present Illness Date of Service: 11/08/21 Chief Complaint: Nonhealing ulcer left medial thigh. History of Wound: 46 year old man presents with areas of redundant skin and subcutaneous tissue in his bilateral medial thighs and abdominal panniculus with associated panniculitis. There is abdominal wall skin crease intertrigo and bilateral medial thigh intertrigo for which he uses powders for relief. This excess skin and subcutaneous tissue was the result of bariatric surgery done in [place] in May,. He lost about 250 lbs and his current weight is about 440 lbs. He has a history of lower extremity lymphedema resulting from the extreme body weight and has persistent dependent edema in his medial thighs which aggravates his symptomatology. He denies trauma. He denies fever. Both areas bother him but the medial thighs are his initial priority as he has trouble with ambulating. We have received medical approval from his insurance company for his thigh surgery. Surgery 09/22/20 - Excision redundant skin and subcutaneous tissue left medial and posterior thigh with dermolipectomy. Wound care - Collagen hydrogel covered with adpatic, covered with ABD. GRACIA wrap for compression. Today he denies fever and chills and states his appetite is good. Progress of Wound: Left medial leg ulcer has improved. There is dry scabbing surrounding the ulcer. The ulcer is now pink and superficial. Objective Data Objective Data Vital Signs: Vital Signs Temp Pulse Resp BP 97 F L 61 20 H 172/85 H 11/08/21 13:15 11/08/21 13:15 11/08/21 13:15 11/08/21 13:15 Oxygen Delivery Method Room Air Body Mass Index (BMI) 54.5 Charges/Coding Procedures Integumentary 111xxx-113xx: 64238 Margarita subq tissue 20 sq cm/< Physical Exam Const alert and oriented x3 General Appearance: cooperative HEENT normocephalic Head and Scalp: atraumatic Resp normal respiratory effort Cardio regular rate Extremity normal capillary refill General Extremity: edema Skin Wound Narrative: Left medial leg ulcer is pink with healed scar tissue surrounding the ulcer Neuro CN's II-XII intact bilaterally Psych Appearance: grossly normal Debridement Note Debridement Note Laterality: Left Type of Debridement: Excisional debridement Anesthesia Used: 5% Lidocaine Gel Depth: Down to and including healthy tissue and in the subcutaneous layer Percentage of wound debrided: 100 Instrument Used: 3mm curette Tissue Removed: Subcutaneous tissue and slough Severity: Fat Layer Exposed Amount of bleeding with debridement: Mild Bleeding Controlled with: Pressure Patient tolerated procedure: Patient tolerated procedure well Post-Debridement Measurements and Additional Note: Post-Debridement Measurements/Treatment - Nurse 1 - General Ulcer Assessment Start: 10/25/21 13:45 Freq: Status: Active Protocol: WILLIAM Activity Type Activity Date Activity User E-Sign Co-Sign Detail Recorded Client Recorded Date Recorded By Document 10/25/21 13:46 BMF [id number] 10/25/21 13:53 BMF Document 11/08/21 13:15 DL [id number] 11/08/21 13:21 DL 10/25/21 11/08/21 13:46 13:15 WC - Today's Visit Information Type of service 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 ) Arrival Mode Ambulatory Transfer Assistance None Patient Identification Verified (Name & Yes ) Patient Requires Transmission-Based No Precautions Height and Weight Body Mass Index (BMI) 54.5 54.5 BMI Classification Obese Obese Vital Signs Temperature (97.8 F-99.1 F) 96.8 F L 97 F L Temperature Source Temporal Temporal Pulse Rate (60-100) 70 61 Pulse Location Monitor Monitor Respiratory Rate (12-18) 18 20 H Respiratory rate source Observation Observation Oxygen Delivery Method Room Air Blood Pressure (90/60-120/80) 152/83 H 172/85 H Blood Pressure Mean (mm Hg) 106 114 Source Monitor Monitor Position Sitting Blood Pressure Location Left Arm History Since Last Visit- (Skip if this is Patient's initial visit) Have you changed medications since your No last visit? Any new allergies or adverse reactions No Had a fall/change in ADL's that may No increase risk of falls Signs or symptoms of abuse and/or No neglect since last visit Have you been in the hospital since your No last visit? Has dressing in place as prescribed Yes Has compression in place as prescribed N/A Has offloadiing in place as prescribed N/A Experienced any changes in pain level or No management Left Footwear Regular Shoe Right Footwear Regular Shoe Pain Scale: 0-10 Numeric Is Patient Pain Free? Yes Yes ACOSTA - Nurse 1 - General Ulcer Measurement Start: 10/25/21 13:45 Freq: Status: Active Protocol: Activity Type Activity Date Activity User E-Sign Co-Sign Detail Recorded Client Recorded Date Recorded By Document 10/25/21 13:46 [facility] [id number] 10/25/21 13:53 [facility] Document 11/08/21 13:15 DL [id number] 11/08/21 13:21 DL 10/25/21 11/08/21 13:46 13:15 Wound Center Nurse 1 #9 left medial groin/thigh -Combined with other wound No -Current Size (cm) - Length 6 0.7 -Current Size (cm) - Width 2 0.5 -Current Size (cm) - Depth 0.1 0.1 -Total Square Cm 12 0.35 -Date of Last Picture (Recall this 10/25/21 field) -Photo Taken Yes No -Epithelialization Small 1-33% -Tunneling No No -Undermining/Tunneling No -Circular Undermining No -Exudate Amt Medium Small -Exudate Type Serosanguineous Serosanguineous -Wound Margin Distinct, Thickened Outline Attached -Granulation Amt Small (1-33%) Small (1-33%) -Granulation Quality [place] -Slough/Fibrin Yes -Necrosis Amt Large (67-100%) None Present (0 %) -Necrotic Tissue Type Adherent Slough -Structure Exposed N/A -Texture (Josephine-wound Skin Appearance) Assessed, Scarring Scarring -Moisture (Josephine-wound Skin Appearance) Assessed,Dry/ No Abnormality Scaly -Color (Josephine-wound Skin Appearance) Assessed Not Assessed -Temperature (Josephine-wound Skin No Abnormality No Abnormality Appearance) (Pt Warm) (Pt Warm) -Tenderness on Palpation (Josephine-wound No Skin Appearance) -Ulcer Cleansing Rinsed/ Soap and Water Irrigated with Saline -Foul Odor after Cleansing No No -Anesthetic Used 5% Lidocaine 4% Lidocaine Gel Solution WC - Nurse 2 - General Ulcer CM Notes Start: 10/25/21 13:45 Freq: Status: Active Protocol: Activity Type Activity Date Activity User E-Sign Co-Sign Detail Recorded Client Recorded Date Recorded By Document 10/25/21 14:10 [id number] 10/25/21 14:12 Document 11/08/21 13:29 [id number] 11/08/21 13:33 10/25/21 11/08/21 14:10 13:29 Wound Center Nurse 2 #9 left medial groin/thigh -Time 14:10 13:30 -Correct Patient Yes Yes -Correct Side, Site, Position Yes Yes -Correct Procedure Yes Yes -Procedure Performed Yes Yes -Type of Procedure Debridement Debridement -Clinical Debridement Subcutaneous Subcutaneous -Tissue Removed Subcutaneous Subcutaneous -Post Debridement (cm) - Length 5.0 5.0 -Post Debridement (cm) - Width 1.0 1.7 -Post Debridement (cm) - Depth 0.1 0.2 -Total Square (Post) (cm) 5.00 8.50 -Area of Debridement (cm) - Length 5.0 5.0 -Area of Debridement (cm) - Width 1.0 1.7 -Total Square (Area) (cm) 5.00 8.50 -Tunneling No No -Undermining/Tunneling No No -Circular Undermining No No -Wound/Ulcer Outcome Not Healed Not Healed -Ulcer Cleansing Rinsed/ Rinsed/ Irrigated with Irrigated with Saline Saline -Foul Odor after Cleansing No No -Bioengineered Tissue No No -Bleeding Controlled with Pressure Pressure -Offloading No No -Treatment Response Procedure Procedure Tolerated Well Tolerated Well -Debridement - Subq, 1st 20sq cm Yes Yes Pain Scale: 0-10 Numeric Is Patient Pain Free? Yes Yes - Nurse 3 - General Ulcer D/C NN Start: 10/25/21 13:45 Freq: Status: Active Protocol: Activity Type Activity Date Activity User E-Sign Co-Sign Detail Recorded Client Recorded Date Recorded By Document 10/25/21 14:26 [facility] [id number] 10/25/21 14:27 [facility] 10/25/21 14:26 Wound Care Nurse 3 #9 left medial groin/thigh -Ulcer Cleansing Rinsed/ Irrigated with Saline -Foul Odor after Cleansing No -Primary Dressing Applied Mepilex Border, NonAdherent Contact Layer, Other -Other Dressing hydrogel -Mepilex Border 1 Treatment Response Procedure Tolerated Well Pain Scale: 0-10 Numeric Is Patient Pain Free? Yes - Visit Discharge Discharge Condition Stable Ambulatory Status Ambulatory Transportation Private Auto Assessment/Plan Assessment/Plan (1) Chronic ulcer of left thigh with fat layer exposed: CODE(S): L97.122 - Non-pressure chronic ulcer of left thigh with fat layer exposed (2) Excessive body weight loss: CODE(S): R63.4 - Abnormal weight loss (3) Excessive and redundant skin and subcutaneous tissue: CODE(S): L98.7 - Excessive and redundant skin and subcutaneous tissue (4) Intertrigo: CODE(S): L30.4 - Erythema intertrigo (5) Edema of both lower extremities: CODE(S): R60.0 - Localized edema (6) Former smoker: CODE(S): Z87.891 - Personal history of nicotine dependence (7) Abdominal panniculus: CODE(S): E65 - Localized adiposity (8) Chronic acquired lymphedema: CODE(S): I89.0 - Lymphedema, not elsewhere classified PLAN: Wound care - Collagen hydrogel covered with adaptic every other day topped by an adhesive border dressing. He wears GRACIA wraps for compression. He is ready to proceed with the dermolipectomy right medial thigh after the first of the year. Dr. Kinney came in and discussed surgery with him. Will schedule the surgery under general anesthesia with a surgical observation overnight stay. The left medial thigh ulcer is ready for operative debridement and skin grafting. At the time of the dermolipectomy on the right, will obtain wound culture on the left and treat with antibiotics if positive. After the right medial thigh wound has stabilized postop, can then discuss delayed closure with skin grafting for bilateral thigh ulcers. Patient was in agreement. Patient was informed of the risks and complications of the procedure including alternatives to surgery. These were discussed with him personally. He voices understanding and wishes to proceed. Follow up in 2 weeks
== END 2021-11-08 23:59 ==
LOC: WC 13:15
PROVIDERS: PCP Internal Medicine; Referring Provider Internal Medicine; Visit Provider Nurse Practitioner Family
DX: L97.122 Non-pressure chronic ulcer of left thigh with fat layer exposed (principal); R60.0 Localized edema; Z87.891 Personal history of nicotine dependence; I89.0 Lymphedema, not elsewhere classified; L98.7 Excessive and redundant skin and subcutaneous tissue; M79.3 Panniculitis, unspecified; E65 Localized adiposity; L30.4 Erythema intertrigo; Z98.84 Bariatric surgery status
CPT/HCPCS: 11042

== ENCOUNTER 2021-12-06 13:45 | Outpatient (RCR) | payer MEDICAID, SELFPAY ==
[2021-11-09 00:21] VITALS: BP 172/85; PULSE 61; RESP 20; TEMP 36.1; BMI 54.5
[2021-11-22 13:22] VITALS: BP 144/93; PULSE 65; RESP 22; TEMP 36.6; BMI 54.5
--- NOTE | 2021-11-22 14:03 | PCM.WC.PN ---
History of Present Illness Date of Service: 11/22/21 Chief Complaint: Nonhealing ulcer left medial thigh. History of Wound: 46 year old man presents with areas of redundant skin and subcutaneous tissue in his bilateral medial thighs and abdominal panniculus with associated panniculitis. There is abdominal wall skin crease intertrigo and bilateral medial thigh intertrigo for which he uses powders for relief. This excess skin and subcutaneous tissue was the result of bariatric surgery done in [place] in May,. He lost about 250 lbs and his current weight is about 440 lbs. He has a history of lower extremity lymphedema resulting from the extreme body weight and has persistent dependent edema in his medial thighs which aggravates his symptomatology. He denies trauma. He denies fever. Both areas bother him but the medial thighs are his initial priority as he has trouble with ambulating. We have received medical approval from his insurance company for his thigh surgery. Surgery 09/22/20 - Excision redundant skin and subcutaneous tissue left medial and posterior thigh with dermolipectomy. Wound care - Collagen hydrogel covered with adpatic, covered with ABD. GRACIA wrap for compression. Today he denies fever and chills and states his appetite is good. Progress of Wound: Left medial leg ulcer is smaller in size. Objective Data Objective Data Vital Signs: Vital Signs Temp Pulse Resp BP 97.8 F 65 22 H 144/93 H 11/22/21 13:22 11/22/21 13:22 11/22/21 13:22 11/22/21 13:22 Body Mass Index (BMI) 54.5 Charges/Coding Procedures Integumentary 111xxx-113xx: 65712 Margarita subq tissue 20 sq cm/< Physical Exam Const alert and oriented x3 General Appearance: cooperative HEENT normocephalic Head and Scalp: atraumatic Resp normal respiratory effort Cardio regular rate Extremity normal capillary refill General Extremity: edema Skin Wound Narrative: Left medial thigh ulcer base is pink. Increase scabbing surrounding the ulcer that was removed with debridement. Neuro CN's II-XII intact bilaterally Psych Appearance: grossly normal Debridement Note Debridement Note Wound debrided: Medial thigh ulcer Laterality: Left Type of Debridement: Excisional debridement Depth: Down to and including healthy tissue and in the subcutaneous layer Percentage of wound debrided: 100 Instrument Used: 3mm curette Tissue Removed: Subcutaneous tissue and slough Severity: Fat Layer Exposed Amount of bleeding with debridement: Mild Bleeding Controlled with: Pressure Patient tolerated procedure: Patient tolerated procedure well Post-Debridement Measurements and Additional Note: Post-Debridement Measurements/Treatment - Nurse 1 - General Ulcer Assessment Start: 11/22/21 13:22 Freq: Status: Active Protocol: WILLIAM Activity Type Activity Date Activity User E-Sign Co-Sign Detail Recorded Client Recorded Date Recorded By Document 11/22/21 13:22 DL [id number] 11/22/21 13:30 DL 11/22/21 13:22 WC - Today's Visit Information 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 of service 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 ) Arrival Mode Ambulatory Transfer Assistance None Patient Identification Verified (Name & Yes ) Patient Requires Transmission-Based No Precautions Height and Weight Body Mass Index (BMI) 54.5 BMI Classification Obese Vital Signs Temperature (97.8 F-99.1 F) 97.8 F Temperature Source Temporal Pulse Rate (60-100) 65 Pulse Location Monitor Respiratory Rate (12-18) 22 H Respiratory rate source Observation Blood Pressure (90/60-120/80) 144/93 H Blood Pressure Mean (mm Hg) 110 Source Monitor History Since Last Visit- (Skip if this is Patient's initial visit) Have you changed medications since your No last visit? Any new allergies or adverse reactions No Had a fall/change in ADL's that may No increase risk of falls Signs or symptoms of abuse and/or No neglect since last visit Have you been in the hospital since your No last visit? Has dressing in place as prescribed Yes Has compression in place as prescribed Yes Has offloadiing in place as prescribed Yes Experienced any changes in pain level or No management Pain Scale: 0-10 Numeric Is Patient Pain Free? Yes - Nurse 1 - General Ulcer Measurement Start: 11/22/21 13:22 Freq: Status: Active Protocol: Activity Type Activity Date Activity User E-Sign Co-Sign Detail Recorded Client Recorded Date Recorded By Document 11/22/21 13:22 DL [id number] 11/22/21 13:30 DL 11/22/21 13:22 Wound Center Nurse 1 #9 left medial groin/thigh -Current Size (cm) - Length 5 -Current Size (cm) - Width 1.7 -Current Size (cm) - Depth 0.2 -Total Square Cm 8.5 -Photo Taken No -Exudate Amt Small -Exudate Type Serosanguineous -Wound Margin Thickened -Granulation Amt Small (1-33%) -Granulation Quality [place] -Necrosis Amt Large (67-100%) -Necrotic Tissue Type Adherent Slough -Structure Exposed N/A -Texture (Josephine-wound Skin Appearance) Scarring -Moisture (Josephine-wound Skin Appearance) No Abnormality -Color (Josephine-wound Skin Appearance) No Abnormality -Temperature (Josephine-wound Skin No Abnormality Appearance) (Pt Warm) -Tenderness on Palpation (Josephine-wound No Skin Appearance) -Ulcer Cleansing Soap and Water -Foul Odor after Cleansing No -Anesthetic Used 5% Lidocaine Gel WC - Nurse 3 - General Ulcer D/C NN Start: 11/22/21 13:22 Freq: Status: Active Protocol: Activity Type Activity Date Activity User E-Sign Co-Sign Detail Recorded Client Recorded Date Recorded By Document 11/22/21 14:01 DL [id number] 11/22/21 14:02 DL 11/22/21 14:01 Wound Care Nurse 3 -Ulcer Cleansing Rinsed/ Irrigated with Saline -Foul Odor after Cleansing No -Primary Dressing Applied Mepilex Border, NonAdherent Contact Layer -Other Dressing hydrogel -Mepilex Border 1 Treatment Response Procedure Tolerated Well Pain Scale: 0-10 Numeric Is Patient Pain Free? Yes WC - Visit Discharge Discharge Condition Stable Ambulatory Status Ambulatory Transportation Private Auto Assessment/Plan Assessment/Plan (1) Chronic ulcer of left thigh with fat layer exposed: CODE(S): L97.122 - Non-pressure chronic ulcer of left thigh with fat layer exposed (2) Chronic acquired lymphedema: CODE(S): I89.0 - Lymphedema, not elsewhere classified (3) Edema of both lower extremities: CODE(S): R60.0 - Localized edema (4) Excessive body weight loss: CODE(S): R63.4 - Abnormal weight loss (5) Excessive and redundant skin and subcutaneous tissue: CODE(S): L98.7 - Excessive and redundant skin and subcutaneous tissue (6) Intertrigo: CODE(S): L30.4 - Erythema intertrigo (7) Former smoker: CODE(S): Z87.891 - Personal history of nicotine dependence (8) Abdominal panniculus: CODE(S): E65 - Localized adiposity PLAN: Wound care - Collagen hydrogel covered with adaptic every other day topped by an adhesive border dressing. He wears GRACIA wraps for compression. He is ready to proceed with the dermolipectomy right medial thigh after the first of the year. Dr. Kinney came in and discussed surgery with him. Will schedule the surgery under general anesthesia with a surgical observation overnight stay. The left medial thigh ulcer is ready for operative debridement and skin grafting. At the time of the dermolipectomy on the right, will obtain wound culture on the left and treat with antibiotics if positive. After the right medial thigh wound has stabilized postop, can then discuss delayed closure with skin grafting for bilateral thigh ulcers. Patient was in agreement. Patient was informed of the risks and complications of the procedure including alternatives to surgery. These were discussed with him personally. He voices understanding and wishes to proceed. Follow up in 2 weeks
[2021-12-06 13:49] VITALS: BP 167/89; PULSE 54; RESP 22; TEMP 37; BMI 54.5
--- NOTE | 2021-12-06 15:21 | PCM.WC.PN ---
History of Present Illness Date of Service: 12/06/21 Chief Complaint: Nonhealing ulcer left medial thigh. History of Wound: 46 year old man presents with areas of redundant skin and subcutaneous tissue in his bilateral medial thighs and abdominal panniculus with associated panniculitis. There is abdominal wall skin crease intertrigo and bilateral medial thigh intertrigo for which he uses powders for relief. This excess skin and subcutaneous tissue was the result of bariatric surgery done in [place] in May,. He lost about 250 lbs and his current weight is about 440 lbs. He has a history of lower extremity lymphedema resulting from the extreme body weight and has persistent dependent edema in his medial thighs which aggravates his symptomatology. He denies trauma. He denies fever. Both areas bother him but the medial thighs are his initial priority as he has trouble with ambulating. We have received medical approval from his insurance company for his thigh surgery. Surgery 09/22/20 - Excision redundant skin and subcutaneous tissue left medial and posterior thigh with dermolipectomy. Wound care - Collagen hydrogel covered with adpatic, covered with ABD. GRACIA wrap for compression. Today he denies fever and chills and states his appetite is good. Progress of Wound: Left medial leg ulcer is smaller in size. The base does have some fibrous scar tissue but it is pink and does bleed well with debridement. Objective Data Objective Data Vital Signs: Vital Signs Temp Pulse Resp BP 98.6 F 54 L 22 H 167/89 H 12/06/21 13:49 12/06/21 13:49 12/06/21 13:49 12/06/21 13:49 Body Mass Index (BMI) 54.5 Charges/Coding Procedures Integumentary 111xxx-113xx: 41740 Margarita subq tissue 20 sq cm/< Physical Exam Const alert and oriented x3 General Appearance: cooperative HEENT normocephalic Resp normal respiratory effort Cardio regular rate Extremity Extremity Narrative: Bilateral lower extremity and lymphedema. Skin Wound Narrative: Left medial thigh ulcer is smaller in size, with a fibrous base but is pink and bleeds well with debridement. Neuro CN's II-XII intact bilaterally Psych Appearance: grossly normal Debridement Note Debridement Note Wound debrided: medial thigh ulcer Laterality: Left Type of Debridement: Excisional debridement Anesthesia Used: 5% Lidocaine Gel Depth: Down to and including healthy tissue and in the subcutaneous layer Percentage of wound debrided: 100 Instrument Used: 5mm curette Tissue Removed: Subcutaneous tissue and slough Severity: Fat Layer Exposed Amount of bleeding with debridement: Mild Bleeding Controlled with: Pressure Patient tolerated procedure: Patient tolerated procedure well Post-Debridement Measurements and Additional Note: Post-Debridement Measurements/Treatment - Nurse 1 - General Ulcer Assessment Start: 11/22/21 13:22 Freq: Status: Active Protocol: WILLIAM Activity Type Activity Date Activity User E-Sign Co-Sign Detail Recorded Client Recorded Date Recorded By Document 11/22/21 13:22 DL [id number] 11/22/21 13:30 DL Document 12/06/21 13:49 DL [id number] 12/06/21 13:54 DL 11/22/21 12/06/21 13:22 13:49 WC - Today's Visit Information Type of service Follow-up Visit 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/WIRE 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 (Physician/WIRE WRAPPER 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 ) ) Arrival Mode Ambulatory Ambulatory Transfer Assistance None None Patient Identification Verified (Name & Yes Yes ) Patient Requires Transmission-Based No No Precautions Height and Weight Body Mass Index (BMI) 54.5 54.5 BMI Classification Obese Obese Vital Signs Temperature (97.8 F-99.1 F) 97.8 F 98.6 F Temperature Source Temporal Temporal Pulse Rate (60-100) 65 54 L Pulse Location Monitor Monitor Respiratory Rate (12-18) 22 H 22 H Respiratory rate source Observation Observation Blood Pressure (90/60-120/80) 144/93 H 167/89 H Blood Pressure Mean (mm Hg) 110 115 Source Monitor Monitor History Since Last Visit- (Skip if this is Patient's initial visit) Have you changed medications since your No No last visit? Any new allergies or adverse reactions No No Had a fall/change in ADL's that may No No increase risk of falls Signs or symptoms of abuse and/or No No neglect since last visit Have you been in the hospital since your No No last visit? Has dressing in place as prescribed Yes Yes Has compression in place as prescribed Yes Yes Has offloadiing in place as prescribed Yes N/A Experienced any changes in pain level or No No management Pain Scale: 0-10 Numeric Is Patient Pain Free? Yes Yes - Nurse 1 - General Ulcer Measurement Start: 11/22/21 13:22 Freq: Status: Active Protocol: Activity Type Activity Date Activity User E-Sign Co-Sign Detail Recorded Client Recorded Date Recorded By Document 11/22/21 13:22 DL [id number] 11/22/21 13:30 DL Document 12/06/21 13:49 DL [id number] 12/06/21 13:54 DL 11/22/21 12/06/21 13:22 13:49 Wound Center Nurse 1 #9 left medial groin/thigh -Current Size (cm) - Length 5 1.5 -Current Size (cm) - Width 1.7 1.6 -Current Size (cm) - Depth 0.2 0.2 -Total Square Cm 8.5 2.40 -Photo Taken No No -Exudate Amt Small Small -Exudate Type Serosanguineous Serosanguineous -Wound Margin Thickened Distinct, Outline Attached -Granulation Amt Small (1-33%) Large (67-100%) -Granulation Quality [place] -Necrosis Amt Large (67-100%) Small (1-33%) -Necrotic Tissue Type Adherent Slough Adherent Slough -Structure Exposed N/A -Texture (Josephine-wound Skin Appearance) Scarring Crepitus, Scarring -Moisture (Josephine-wound Skin Appearance) No Abnormality No Abnormality -Color (Josephine-wound Skin Appearance) No Abnormality No Abnormality -Temperature (Josephine-wound Skin No Abnormality No Abnormality Appearance) (Pt Warm) (Pt Warm) -Tenderness on Palpation (Josephine-wound No No Skin Appearance) -Ulcer Cleansing Soap and Water Wound Cleanser -Foul Odor after Cleansing No No -Anesthetic Used 5% Lidocaine 4% Lidocaine Gel Solution WC - Nurse 2 - General Ulcer CM Notes Start: 11/22/21 13:22 Freq: Status: Active Protocol: Activity Type Activity Date Activity User E-Sign Co-Sign Detail Recorded Client Recorded Date Recorded By Document 11/22/21 14:12 PL [id number] 11/22/21 14:22 PL Document 12/06/21 14:14 [id number] 12/06/21 14:17 JF 11/22/21 12/06/21 14:12 14:14 Wound Center Nurse 2 #9 left medial groin/thigh -Time 13:47 14:15 -Correct Patient Yes Yes -Correct Side, Site, Position Yes Yes -Correct Procedure Yes Yes -Procedure Performed Yes Yes -Type of Procedure Debridement Debridement -Clinical Debridement Subcutaneous Subcutaneous -Tissue Removed Subcutaneous Subcutaneous -Post Debridement (cm) - Length 2.0 2.0 -Post Debridement (cm) - Width 2.0 1.9 -Post Debridement (cm) - Depth 0.2 0.2 -Total Square (Post) (cm) 4.00 3.80 -Area of Debridement (cm) - Length 2.0 2.0 -Area of Debridement (cm) - Width 2.0 1.9 -Total Square (Area) (cm) 4.00 3.80 -Tunneling No No -Undermining/Tunneling No No -Circular Undermining No No -Wound/Ulcer Outcome Not Healed Not Healed -Ulcer Cleansing Rinsed/ Irrigated with Saline -Foul Odor after Cleansing No -Bioengineered Tissue No No -Bleeding Controlled with Pressure Pressure -Treatment Response Procedure Procedure Tolerated Well Tolerated Well -Offloading No -Debridement - Subq, 1st 20sq cm Yes Yes Pain Scale: 0-10 Numeric Is Patient Pain Free? Yes Yes - Nurse 3 - General Ulcer D/C NN Start: 11/22/21 13:22 Freq: Status: Active Protocol: Activity Type Activity Date Activity User E-Sign Co-Sign Detail Recorded Client Recorded Date Recorded By Document 11/22/21 14:01 [id number] 11/22/21 14:02 Document 12/06/21 14:20 [id number] 12/06/21 14:21 11/22/21 12/06/21 14:01 14:20 Wound Care Nurse 3 #9 left medial groin/thigh -Ulcer Cleansing Rinsed/ Rinsed/ Irrigated with Irrigated with Saline Saline -Foul Odor after Cleansing No No -Primary Dressing Applied Mepilex Border, C Hydrogel ($), NonAdherent Mepilex Border, Contact Layer NonAdherent Contact Layer -Other Dressing hydrogel -Mepilex Border 1 1 Treatment Response Procedure Tolerated Well Pain Scale: 0-10 Numeric Is Patient Pain Free? Yes Yes - Visit Discharge Discharge Condition Stable Stable Ambulatory Status Ambulatory Ambulatory Transportation Private Auto Private Auto Medication Reconcilliation completed & Yes provided to patient/care provider Clinical Summary of Care Provided Yes Assessment/Plan Assessment/Plan (1) Chronic ulcer of left thigh with fat layer exposed: CODE(S): L97.122 - Non-pressure chronic ulcer of left thigh with fat layer exposed (2) Edema of both lower extremities: CODE(S): R60.0 - Localized edema (3) Excessive body weight loss: CODE(S): R63.4 - Abnormal weight loss (4) Excessive and redundant skin and subcutaneous tissue: CODE(S): L98.7 - Excessive and redundant skin and subcutaneous tissue (5) Intertrigo: CODE(S): L30.4 - Erythema intertrigo (6) Former smoker: CODE(S): Z87.891 - Personal history of nicotine dependence (7) Chronic acquired lymphedema: CODE(S): I89.0 - Lymphedema, not elsewhere classified PLAN: Wound care - Collagen hydrogel covered with adaptic and topped with gauze daily. He wears GRACIA wraps for compression. He is ready to proceed with the dermolipectomy right medial thigh after the first of the year. Dr. Kinney came in and discussed surgery with him. Will schedule the surgery under general anesthesia with a surgical observation overnight stay. The left medial thigh ulcer is ready for operative debridement and skin grafting. At the time of the dermolipectomy on the right, will obtain wound culture on the left and treat with antibiotics if positive. After the right medial thigh wound has stabilized postop, can then discuss delayed closure with skin grafting for bilateral thigh ulcers. Patient was in agreement. Patient was informed of the risks and complications of the procedure including alternatives to surgery. These were discussed with him personally. He voices understanding and wishes to proceed. Follow up in 2 weeks
== END 2021-12-09 23:59 | disposition home or self-care (01) ==
LOC: WC 13:45
PROVIDERS: PCP Internal Medicine; Referring Provider Internal Medicine; Visit Provider Nurse Practitioner Family
DX: L97.122 Non-pressure chronic ulcer of left thigh with fat layer exposed (principal); R60.0 Localized edema; R63.4 Abnormal weight loss; L90.5 Scar conditions and fibrosis of skin; I89.0 Lymphedema, not elsewhere classified; Z87.891 Personal history of nicotine dependence; L30.4 Erythema intertrigo; E65 Localized adiposity; Z98.84 Bariatric surgery status
CPT/HCPCS: 11042

== ENCOUNTER 2022-01-03 13:30 | Outpatient (RCR) | payer MEDICAID, SELFPAY ==
[2021-12-10 00:22] VITALS: BP 167/89; PULSE 54; RESP 22; TEMP 37; BMI 54.5
[2021-12-20 13:05] VITALS: BP 163/95; PULSE 62; RESP 16; TEMP 35.8; BMI 54.5
--- NOTE | 2021-12-20 14:36 | PCM.WC.PN ---
History of Present Illness Date of Service: 12/20/21 Chief Complaint: Nonhealing ulcer left medial thigh. History of Wound: 46 year old man presents with areas of redundant skin and subcutaneous tissue in his bilateral medial thighs and abdominal panniculus with associated panniculitis. There is abdominal wall skin crease intertrigo and bilateral medial thigh intertrigo for which he uses powders for relief. This excess skin and subcutaneous tissue was the result of bariatric surgery done in [place] in May,. He lost about 250 lbs and his current weight is about 440 lbs. He has a history of lower extremity lymphedema resulting from the extreme body weight and has persistent dependent edema in his medial thighs which aggravates his symptomatology. He denies trauma. He denies fever. Both areas bother him but the medial thighs are his initial priority as he has trouble with ambulating. We have received medical approval from his insurance company for his thigh surgery. Surgery 09/22/20 - Excision redundant skin and subcutaneous tissue left medial and posterior thigh with dermolipectomy. Wound care - Collagen hydrogel covered with adpatic, covered with mepilex every other day. DESMOND wrap for compression. Today he denies fever and chills and states his appetite is good. Progress of Wound: Left medial thigh ulcer is stable. There is fibrous scar tissue in the base of the ulcer. Objective Data Objective Data Vital Signs: Vital Signs Temp Pulse Resp BP 96.5 F L 62 16 163/95 H 12/20/21 13:05 12/20/21 13:05 12/20/21 13:05 12/20/21 13:05 Oxygen Delivery Method Room Air Body Mass Index (BMI) 54.5 Charges/Coding Procedures Integumentary 111xxx-113xx: 06236 Margarita subq tissue 20 sq cm/< Physical Exam Const alert and oriented x3 General Appearance: cooperative HEENT normocephalic Resp normal respiratory effort Cardio regular rate Extremity normal capillary refill Extremity Narrative: Bilateral lower extremity edema with lymphedema Skin Skin Narrative: Right medial thigh with redundant skin and subcutaneous tissue from his significant weight loss. He does have areas of intertrigo. With his edema and lymphedema it makes it difficult for him to ambulate. Wound Narrative: Left medial leg ulcer is beefy pink, bleeds well with debridement. The base is fibrous from the scar tissue Neuro CN's II-XII intact bilaterally Psych Appearance: grossly normal Debridement Note Debridement Note Wound debrided: Medial thigh ulcer Laterality: Left Type of Debridement: Excisional debridement Anesthesia Used: 5% Lidocaine Gel Depth: Down to and including healthy tissue and in the subcutaneous layer Percentage of wound debrided: 100 Instrument Used: 3mm curette Tissue Removed: Nonviable tissue and slough Severity: Fat Layer Exposed Amount of bleeding with debridement: Mild Bleeding Controlled with: Pressure and Compression and gauze Patient tolerated procedure: Patient tolerated procedure well Post-Debridement Measurements and Additional Note: Post-Debridement Measurements/Treatment WC - Nurse 1 - General Ulcer Assessment Start: 12/20/21 13:05 Freq: Status: Active Protocol: WILLIAM Activity Type Activity Date Activity User E-Sign Co-Sign Detail Recorded Client Recorded Date Recorded By Document 12/20/21 13:05 [facility] [id number] 12/20/21 13:14 [facility] 12/20/21 13:05 WC - Today's Visit Information Type of service 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/SUPERVISOR REFINING ) Arrival Mode Ambulatory Transfer Assistance None Patient Identification Verified (Name & Yes ) Patient Requires Transmission-Based No Precautions Height and Weight Body Mass Index (BMI) 54.5 BMI Classification Obese Vital Signs Temperature (97.8 F-99.1 F) 96.5 F L Temperature Source Temporal Pulse Rate (60-100) 62 Pulse Location Monitor Respiratory Rate (12-18) 16 Respiratory rate source Observation Oxygen Delivery Method Room Air Blood Pressure (90/60-120/80) 163/95 H Blood Pressure Mean (mm Hg) 117 Source Monitor Position Sitting Blood Pressure Location Left Arm History Since Last Visit- (Skip if this is Patient's initial visit) Have you changed medications since your No last visit? Any new allergies or adverse reactions No Had a fall/change in ADL's that may No increase risk of falls Signs or symptoms of abuse and/or No neglect since last visit Have you been in the hospital since your No last visit? Has dressing in place as prescribed Yes Has compression in place as prescribed Yes Has offloadiing in place as prescribed N/A Experienced any changes in pain level or No management Left Footwear Regular Shoe Right Footwear Regular Shoe Pain Scale: 0-10 Numeric Is Patient Pain Free? No WC - Nurse 1 - General Ulcer Measurement Start: 12/20/21 13:05 Freq: Status: Active Protocol: Activity Type Activity Date Activity User E-Sign Co-Sign Detail Recorded Client Recorded Date Recorded By Document 12/20/21 13:05 [facility] [id number] 12/20/21 13:14 [facility] 12/20/21 13:05 Wound Center Nurse 1 #9 left medial groin/thigh -Combined with other wound No -Current Size (cm) - Length 3 -Current Size (cm) - Width 2 -Current Size (cm) - Depth 0.1 -Total Square Cm 6 -Date of Last Picture (Recall this 12/20/21 field) -Photo Taken Yes -Epithelialization Small 1-33% -Tunneling No -Undermining/Tunneling No -Circular Undermining No -Exudate Amt Small -Exudate Type Serous -Wound Margin Distinct, Outline Attached -Granulation Amt Small (1-33%) -Granulation Quality [place] -Slough/Fibrin Yes -Necrosis Amt Large (67-100%) -Necrotic Tissue Type Adherent Slough -Texture (Josephine-wound Skin Appearance) Assessed, Scarring -Moisture (Josephine-wound Skin Appearance) Assessed -Color (Josephine-wound Skin Appearance) Assessed,Palor -Temperature (Josephine-wound Skin No Abnormality Appearance) (Pt Warm) -Tenderness on Palpation (Josephine-wound No Skin Appearance) -Ulcer Cleansing Soap and Water -Foul Odor after Cleansing No -Anesthetic Used 4% Lidocaine Solution WC - Nurse 2 - General Ulcer CM Notes Start: 12/20/21 13:05 Freq: Status: Active Protocol: Activity Type Activity Date Activity User E-Sign Co-Sign Detail Recorded Client Recorded Date Recorded By Document 12/20/21 13:20 [id number] 12/20/21 13:25 12/20/21 13:20 Wound Center Nurse 2 -Time 13:21 -Correct Patient Yes -Correct Side, Site, Position Yes -Correct Procedure Yes -Procedure Performed Yes -Type of Procedure Debridement -Clinical Debridement Subcutaneous -Tissue Removed Subcutaneous -Post Debridement (cm) - Length 2.3 -Post Debridement (cm) - Width 2.2 -Post Debridement (cm) - Depth 0.2 -Total Square (Post) (cm) 5.06 -Area of Debridement (cm) - Length 2.3 -Area of Debridement (cm) - Width 2.2 -Total Square (Area) (cm) 5.06 -Tunneling No -Undermining/Tunneling No -Circular Undermining No -Wound/Ulcer Outcome Not Healed -Ulcer Cleansing Rinsed/ Irrigated with Saline -Foul Odor after Cleansing No -Bioengineered Tissue No -Bleeding Controlled with Pressure -Treatment Response Procedure Tolerated Well -Debridement - Subq, 1st 20sq cm Yes Pain Scale: 0-10 Numeric Is Patient Pain Free? Yes WC - Nurse 3 - General Ulcer D/C NN Start: 12/20/21 13:05 Freq: Status: Active Protocol: Activity Type Activity Date Activity User E-Sign Co-Sign Detail Recorded Client Recorded Date Recorded By Document 12/20/21 13:40 JOHN [id number] 12/20/21 13:41 JOHN 12/20/21 13:40 Wound Care Nurse 3 #9 left medial groin/thigh -Ulcer Cleansing Rinsed/ Irrigated with Saline -Foul Odor after Cleansing No -Primary Dressing Applied C Hydrogel ($), Mepilex Border, NonAdherent Contact Layer -Mepilex Border 1 Left -Compression Wrap [place] Wrap Pain Scale: 0-10 Numeric Is Patient Pain Free? Yes WC - Visit Discharge Discharge Condition Stable Ambulatory Status Ambulatory Transportation Private Auto Medication Reconcilliation completed & Yes provided to patient/care provider Clinical Summary of Care Provided Yes Assessment/Plan Assessment/Plan (1) Chronic ulcer of left thigh with fat layer exposed: CODE(S): L97.122 - Non-pressure chronic ulcer of left thigh with fat layer exposed (2) Edema of both lower extremities: CODE(S): R60.0 - Localized edema (3) Chronic acquired lymphedema: CODE(S): I89.0 - Lymphedema, not elsewhere classified (4) Excessive body weight loss: CODE(S): R63.4 - Abnormal weight loss (5) Excessive and redundant skin and subcutaneous tissue: CODE(S): L98.7 - Excessive and redundant skin and subcutaneous tissue (6) History of bariatric surgery: CODE(S): Z98.84 - Bariatric surgery status PLAN: Patient was evaluated of the wound center today. He tolerated the subcutaneous debridement well. Wound care - Collagen hydrogel covered with adaptic and topped with Mepilex dressing changed every other day. If he uses gauze he can change it daily. He wears DESMOND wraps for compression. He is ready to proceed with the dermolipectomy right medial thigh. This unfortunately is not able to be done at [facility] at this time. The patient does not want to wait any longer. We will refer him to a plastic surgeon to be evaluated to have his right medial thigh dermolipectomy. Due to his insurance, we will try to refer him to [place] [facility]. I discussed with the patient about seeing if they would be able to skin graft or secondarily close his left medial thigh ulcer when his next surgery is completed. If they have any questions or concerns, they may call the [facility] or [facility] for more information. He will follow up in two weeks to see me at the wound center.
[2022-01-03 13:29] VITALS: BMI 54.5
--- NOTE | 2022-01-03 14:19 | PCM.WC.PN ---
History of Present Illness Date of Service: 01/03/22 Chief Complaint: Nonhealing ulcer left medial thigh. History of Wound: 46 year old man presents with areas of redundant skin and subcutaneous tissue in his bilateral medial thighs and abdominal panniculus with associated panniculitis. There is abdominal wall skin crease intertrigo and bilateral medial thigh intertrigo for which he uses powders for relief. This excess skin and subcutaneous tissue was the result of bariatric surgery done in [place] in May,. He lost about 250 lbs and his current weight is about 440 lbs. He has a history of lower extremity lymphedema resulting from the extreme body weight and has persistent dependent edema in his medial thighs which aggravates his symptomatology. He denies trauma. He denies fever. Both areas bother him but the medial thighs are his initial priority as he has trouble with ambulating. We have received medical approval from his insurance company for his thigh surgery. Surgery 09/22/20 - Excision redundant skin and subcutaneous tissue left medial and posterior thigh with dermolipectomy. Wound care - Collagen hydrogel covered with adpatic, covered with mepilex every other day. DESMOND wrap for compression. Today he denies fever and chills and states his appetite is good. Progress of Wound: Left medial thigh ulcer is stable. There is fibrous scar tissue in the base of the ulcer. Objective Data Objective Data Vital Signs: Vital Signs Temp Pulse Resp BP 96.5 F L 62 16 163/95 H 12/20/21 13:05 12/20/21 13:05 12/20/21 13:05 12/20/21 13:05 Oxygen Delivery Method Room Air Body Mass Index (BMI) 54.5 Charges/Coding Procedures Integumentary 111xxx-113xx: 53816 Margarita subq tissue 20 sq cm/< Physical Exam Const alert and oriented x3 General Appearance: cooperative HEENT normocephalic Resp normal respiratory effort Cardio regular rate Extremity Extremity Narrative: Bilateral lower extremity edema and lymphedema. Skin Wound Narrative: Left medial thigh ulcer is beefy pink, there is some fibrous scar tissue in the base of the ulcer, but it bleeds well with debridement Neuro CN's II-XII intact bilaterally Psych Appearance: grossly normal Debridement Note Debridement Note Wound debrided: medial thigh ulcer Laterality: Left Type of Debridement: Excisional debridement Anesthesia Used: 5% Lidocaine Gel Depth: Down to and including healthy tissue and in the subcutaneous layer Percentage of wound debrided: 100 Instrument Used: 5mm curette Tissue Removed: Non viable tissue and slough Severity: Fat Layer Exposed Amount of bleeding with debridement: Mild Bleeding Controlled with: Pressure Patient tolerated procedure: Patient tolerated procedure well Debridement Free Text: Ulcer bleeds well after debridement Post-Debridement Measurements and Additional Note: Post-Debridement Measurements/Treatment WC - Nurse 1 - General Ulcer Assessment Start: 12/20/21 13:05 Freq: Status: Active Protocol: WILLIAM Activity Type Activity Date Activity User E-Sign Co-Sign Detail Recorded Client Recorded Date Recorded By Document 12/20/21 13:05 [facility] [id number] 12/20/21 13:14 BM Document 01/03/22 13:29 KR [id number] 01/03/22 13:35 KR 12/20/21 01/03/22 13:05 13:29 - Today's Visit Information Type of service Follow-up Visit 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/PROGRAM PROPOSALS COORDINATOR (Physician/PROGRAM PROPOSALS COORDINATOR ) ) Arrival Mode Ambulatory Ambulatory Transfer Assistance None Patient Identification Verified (Name & Yes Yes ) Patient Requires Transmission-Based No Precautions Height and Weight Body Mass Index (BMI) 54.5 54.5 BMI Classification Obese Obese Vital Signs Temperature (97.8 F-99.1 F) 96.5 F L Temperature Source Temporal Temporal Pulse Rate (60-100) 62 Pulse Location Monitor Monitor Respiratory Rate (12-18) 16 Respiratory rate source Observation Oxygen Delivery Method Room Air Blood Pressure (90/60-120/80) 163/95 H Blood Pressure Mean (mm Hg) 117 Source Monitor Monitor Position Sitting Semi-Fowlers Blood Pressure Location Left Arm Left Arm History Since Last Visit- (Skip if this is Patient's initial visit) Have you changed medications since your No No last visit? Any new allergies or adverse reactions No No Had a fall/change in ADL's that may No No increase risk of falls Signs or symptoms of abuse and/or No No neglect since last visit Have you been in the hospital since your No No last visit? Has dressing in place as prescribed Yes Yes Has compression in place as prescribed Yes N/A Has offloadiing in place as prescribed N/A N/A Experienced any changes in pain level or No No management Left Footwear Regular Shoe Regular Shoe Right Footwear Regular Shoe Regular Shoe Pain Scale: 0-10 Numeric Is Patient Pain Free? No Yes WC - Nurse 1 - General Ulcer Measurement Start: 12/20/21 13:05 Freq: Status: Active Protocol: Activity Type Activity Date Activity User E-Sign Co-Sign Detail Recorded Client Recorded Date Recorded By Document 12/20/21 13:05 [facility] [id number] 12/20/21 13:14 BM Document 01/03/22 13:29 KR [id number] 01/03/22 13:35 KR 12/20/21 01/03/22 13:05 13:29 Wound Center Nurse 1 #9 left medial groin/thigh -Combined with other wound No -Current Size (cm) - Length 3 1 -Current Size (cm) - Width 2 1.5 -Current Size (cm) - Depth 0.1 0.1 -Total Square Cm 6 1.5 -Date of Last Picture (Recall this 12/20/21 field) -Photo Taken Yes -Epithelialization Small 1-33% -Tunneling No -Undermining/Tunneling No -Circular Undermining No -Exudate Amt Small Small -Exudate Type Serous Serosanguineous -Wound Margin Distinct, Distinct, Outline Outline Attached Attached -Granulation Amt Small (1-33%) Small (1-33%) -Granulation Quality [place] -Slough/Fibrin Yes -Necrosis Amt Large (67-100%) None Present (0 %) -Necrotic Tissue Type Adherent Slough -Texture (Josephine-wound Skin Appearance) Assessed, Assessed, Scarring Scarring -Moisture (Josephine-wound Skin Appearance) Assessed No Abnormality, Assessed -Color (Josephine-wound Skin Appearance) Assessed,Palor No Abnormality, Assessed -Temperature (Josephine-wound Skin No Abnormality No Abnormality Appearance) (Pt Warm) (Pt Warm) -Tenderness on Palpation (Josephine-wound No No Skin Appearance) -Ulcer Cleansing Soap and Water Rinsed/ Irrigated with Saline -Foul Odor after Cleansing No No -Anesthetic Used 4% Lidocaine 4% Lidocaine Solution Solution WC - Nurse 2 - General Ulcer CM Notes Start: 12/20/21 13:05 Freq: Status: Active Protocol: Activity Type Activity Date Activity User E-Sign Co-Sign Detail Recorded Client Recorded Date Recorded By Document 12/20/21 13:20 [id number] 12/20/21 13:25 Document 01/03/22 14:01 [id number] 01/03/22 14:02 12/20/21 01/03/22 13:20 14:01 Wound Center Nurse 2 #9 left medial groin/thigh -Time 13:21 14:01 -Correct Patient Yes Yes -Correct Side, Site, Position Yes Yes -Correct Procedure Yes Yes -Procedure Performed Yes Yes -Type of Procedure Debridement Debridement -Clinical Debridement Subcutaneous Subcutaneous -Tissue Removed Subcutaneous Subcutaneous -Post Debridement (cm) - Length 2.3 1.5 -Post Debridement (cm) - Width 2.2 1.6 -Post Debridement (cm) - Depth 0.2 0.2 -Total Square (Post) (cm) 5.06 2.40 -Area of Debridement (cm) - Length 2.3 1.5 -Area of Debridement (cm) - Width 2.2 1.6 -Total Square (Area) (cm) 5.06 2.40 -Tunneling No No -Undermining/Tunneling No No -Circular Undermining No No -Wound/Ulcer Outcome Not Healed Not Healed -Ulcer Cleansing Rinsed/ Rinsed/ Irrigated with Irrigated with Saline Saline -Foul Odor after Cleansing No No -Bioengineered Tissue No No -Bleeding Controlled with Pressure Pressure -Treatment Response Procedure Procedure Not Tolerated Well Tolerated Well -Offloading No -Debridement - Subq, 1st 20sq cm Yes Yes Pain Scale: 0-10 Numeric Is Patient Pain Free? Yes Yes WC - Nurse 3 - General Ulcer D/C NN Start: 12/20/21 13:05 Freq: Status: Active Protocol: Activity Type Activity Date Activity User E-Sign Co-Sign Detail Recorded Client Recorded Date Recorded By Document 12/20/21 13:40 [id number] 12/20/21 13:41 Document 01/03/22 14:11 [facility] [id number] 01/03/22 14:12 [facility] 12/20/21 01/03/22 13:40 14:11 Wound Care Nurse 3 #9 left medial groin/thigh -Ulcer Cleansing Rinsed/ Rinsed/ Irrigated with Irrigated with Saline Saline -Foul Odor after Cleansing No No -Primary Dressing Applied C Hydrogel ($), Mepilex Border, Mepilex Border, NonAdherent NonAdherent Contact Layer, Contact Layer Other -Other Dressing hydrogel -Mepilex Border 1 1 Left -Compression Wrap Desmond Wrap -Other pt already had desmond wraps on lle Treatment Response Procedure Tolerated Well Pain Scale: 0-10 Numeric Is Patient Pain Free? Yes Yes WC - Visit Discharge Discharge Condition Stable Stable Ambulatory Status Ambulatory Ambulatory Transportation Private Auto Private Auto Medication Reconcilliation completed & Yes provided to patient/care provider Clinical Summary of Care Provided Yes Assessment/Plan Assessment/Plan (1) Chronic ulcer of left thigh with fat layer exposed: CODE(S): L97.122 - Non-pressure chronic ulcer of left thigh with fat layer exposed (2) Edema of both lower extremities: CODE(S): R60.0 - Localized edema (3) Chronic acquired lymphedema: CODE(S): I89.0 - Lymphedema, not elsewhere classified (4) Excessive and redundant skin and subcutaneous tissue: CODE(S): L98.7 - Excessive and redundant skin and subcutaneous tissue (5) Excessive body weight loss: CODE(S): R63.4 - Abnormal weight loss (6) History of bariatric surgery: CODE(S): Z98.84 - Bariatric surgery status (7) Former smoker: CODE(S): Z87.891 - Personal history of nicotine dependence PLAN: Patient was evaluated of the wound center today. He tolerated the subcutaneous debridement well. Wound care - Collagen hydrogel covered with adaptic and topped with adaptic and covered with gauze daily. If he covers it with Mepilex then he will change it every other day. He wears DESMOND wraps for compression. He can massage the healed scar with an emollient lotion or an ointment to help soften the scarring. He is ready to proceed with the dermolipectomy right medial thigh. This unfortunately is not able to be done at [facility] at this time. The patient does not want to wait any longer. We will refer him to a plastic surgeon to be evaluated to have his right medial thigh dermolipectomy. Due to his insurance, we will try to refer him to [facility], Dr. Blakely. He has not set up his appointment to see them yet. He states he needs to return their call. I discussed with the patient about seeing if they would be able to skin graft or secondarily close his left medial thigh ulcer when his next surgery is completed. If they have any questions or concerns, they may call the [facility] or [facility] for more information. He will follow up in two weeks to see me at the wound center.
== END 2022-01-08 23:59 | disposition home or self-care (01) ==
LOC: WC 13:30
PROVIDERS: PCP Internal Medicine; Referring Provider Internal Medicine; Visit Provider Nurse Practitioner Family
DX: L97.122 Non-pressure chronic ulcer of left thigh with fat layer exposed (principal); R60.0 Localized edema; Z87.891 Personal history of nicotine dependence; L90.5 Scar conditions and fibrosis of skin; R63.4 Abnormal weight loss; I89.0 Lymphedema, not elsewhere classified; L98.7 Excessive and redundant skin and subcutaneous tissue; M79.3 Panniculitis, unspecified; Z98.84 Bariatric surgery status
CPT/HCPCS: 11042

== ENCOUNTER 2022-01-31 14:00 | Outpatient (RCR) | payer MEDICAID, SELFPAY ==
[2022-01-09 00:22] VITALS: BP 163/95; PULSE 62; RESP 16; TEMP 35.8; BMI 54.5
[2022-01-31 13:55] VITALS: BP 151/89; PULSE 64; TEMP 36.1; BMI 54.5
--- NOTE | 2022-01-31 15:11 | PCM.WC.PN ---
History of Present Illness Date of Service: 01/31/22 Chief Complaint: Nonhealing ulcer left medial thigh. History of Wound: 46 year old man presents with areas of redundant skin and subcutaneous tissue in his bilateral medial thighs and abdominal panniculus with associated panniculitis. There is abdominal wall skin crease intertrigo and bilateral medial thigh intertrigo for which he uses powders for relief. This excess skin and subcutaneous tissue was the result of bariatric surgery done in [place] in May,. He lost about 250 lbs and his current weight is about 440 lbs. He has a history of lower extremity lymphedema resulting from the extreme body weight and has persistent dependent edema in his medial thighs which aggravates his symptomatology. He denies trauma. He denies fever. Both areas bother him but the medial thighs are his initial priority as he has trouble with ambulating. We have received medical approval from his insurance company for his thigh surgery. Surgery 09/22/20 - Excision redundant skin and subcutaneous tissue left medial and posterior thigh with dermolipectomy. Wound care - Collagen hydrogel covered with adpatic, covered with mepilex every other day. DESMOND wrap for compression. Today he denies fever and chills and states his appetite is good. Progress of Wound: Left medial thigh ulcer is stable, there is some dryness on the healed scarring. Objective Data Objective Data Vital Signs: Vital Signs Temp Pulse Resp BP 96.9 F L 64 16 151/89 H 01/31/22 13:55 01/31/22 13:55 01/09/22 00:22 01/31/22 13:55 Body Mass Index (BMI) 54.5 Charges/Coding Procedures Integumentary 111xxx-113xx: 23788 Margarita subq tissue 20 sq cm/< Physical Exam Const alert and oriented x3 General Appearance: cooperative HEENT normocephalic Resp normal respiratory effort Cardio regular rate Extremity Extremity Narrative: Bilateral lower extremity edema and lymphedema. Skin Wound Narrative: Left medial thigh ulcer is stable, there is some dryness on the healed scarring Neuro CN's II-XII intact bilaterally Psych Appearance: grossly normal Debridement Note Debridement Note Wound debrided: medial thigh ulcer Laterality: Left Type of Debridement: Excisional debridement Anesthesia Used: 5% Lidocaine Gel Depth: Down to and including healthy tissue and in the subcutaneous layer Percentage of wound debrided: 100 Instrument Used: 3mm curette Tissue Removed: Non viable tissue and slough Severity: Fat Layer Exposed Amount of bleeding with debridement: Mild Bleeding Controlled with: Pressure Patient tolerated procedure: Patient tolerated procedure well Post-Debridement Measurements and Additional Note: Post-Debridement Measurements/Treatment - Nurse 1 - General Ulcer Assessment Start: 01/31/22 13:55 Freq: Status: Active Protocol: WILLIAM Activity Type Activity Date Activity User E-Sign Co-Sign Detail Recorded Client Recorded Date Recorded By Document 01/31/22 13:55 GAGANDEEP [id number] 01/31/22 14:00 CT 01/31/22 13:55 - Today's Visit Information Type of service 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/DISTRIBUTOR ADVERTISING MATERIAL ) Arrival Mode Ambulatory Patient Identification Verified (Name & No ) Patient Requires Transmission-Based No Precautions Safety Precautions NA Height and Weight Body Mass Index (BMI) 54.5 BMI Classification Obese Vital Signs Temperature (97.8 F-99.1 F) 96.9 F L Temperature Source Temporal Pulse Rate (60-100) 64 Pulse Location Monitor Blood Pressure (90/60-120/80) 151/89 H Blood Pressure Mean (mm Hg) 109 Source Monitor History Since Last Visit- (Skip if this is Patient's initial visit) Have you changed medications since your No last visit? Any new allergies or adverse reactions No Had a fall/change in ADL's that may No increase risk of falls Signs or symptoms of abuse and/or No neglect since last visit Have you been in the hospital since your No last visit? Has dressing in place as prescribed Yes Has compression in place as prescribed Yes Has offloadiing in place as prescribed N/A Experienced any changes in pain level or No management Left Footwear Regular Shoe Right Footwear Regular Shoe Pain Scale: 0-10 Numeric Is Patient Pain Free? Yes - Nurse 1 - General Ulcer Measurement Start: 01/31/22 13:55 Freq: Status: Active Protocol: Activity Type Activity Date Activity User E-Sign Co-Sign Detail Recorded Client Recorded Date Recorded By Document 01/31/22 13:55 GAGNADEEP [id number] 01/31/22 14:00 CT 01/31/22 13:55 Wound Center Nurse 1 #9 left medial groin/thigh -Combined with other wound No -Current Size (cm) - Length 1.9 -Current Size (cm) - Width 1.9 -Current Size (cm) - Depth 0.1 -Total Square Cm 3.61 -Date of Last Picture (Recall this 01/31/22 field) -Photo Taken Yes -Epithelialization None Present -Tunneling No -Undermining/Tunneling No -Circular Undermining No -Change in Wound Grade/Stage No -Exudate Amt Small -Exudate Type Serosanguineous -Wound Margin Distinct, Outline Attached -Granulation Amt Small (1-33%) -Granulation Quality N/A -Slough/Fibrin No -Necrosis Amt Medium (34-66%) -Necrotic Tissue Type Adherent Slough -Structure Exposed N/A -Texture (Josephine-wound Skin Appearance) Assessed, Scarring -Moisture (Josephine-wound Skin Appearance) Assessed -Color (Josephine-wound Skin Appearance) No Abnormality, Assessed -Temperature (Josephine-wound Skin No Abnormality Appearance) (Pt Warm) -Tenderness on Palpation (Josephine-wound No Skin Appearance) -Ulcer Cleansing Rinsed/ Irrigated with Saline -Foul Odor after Cleansing No -Anesthetic Used 4% Lidocaine Solution WC - Nurse 2 - General Ulcer CM Notes Start: 01/31/22 13:55 Freq: Status: Active Protocol: Activity Type Activity Date Activity User E-Sign Co-Sign Detail Recorded Client Recorded Date Recorded By Document 01/31/22 14:37 [id number] 01/31/22 14:38 JOHN 01/31/22 14:37 Wound Center Nurse 2 -Time 14:37 -Correct Patient Yes -Correct Side, Site, Position Yes -Correct Procedure Yes -Procedure Performed Yes -Type of Procedure Debridement -Clinical Debridement Subcutaneous -Tissue Removed Subcutaneous -Post Debridement (cm) - Length 1.2 -Post Debridement (cm) - Width 1.2 -Post Debridement (cm) - Depth 0.1 -Total Square (Post) (cm) 1.44 -Area of Debridement (cm) - Length 1.2 -Area of Debridement (cm) - Width 1.2 -Total Square (Area) (cm) 1.44 -Tunneling No -Undermining/Tunneling No -Circular Undermining No -Wound/Ulcer Outcome Not Healed -Ulcer Cleansing Rinsed/ Irrigated with Saline -Foul Odor after Cleansing No -Bioengineered Tissue No -Bleeding Controlled with Pressure -Treatment Response Procedure Tolerated Well -Offloading No -Debridement - Subq, 1st 20sq cm Yes Pain Scale: 0-10 Numeric Is Patient Pain Free? Yes WC - Nurse 3 - General Ulcer D/C NN Start: 01/31/22 13:55 Freq: Status: Active Protocol: Activity Type Activity Date Activity User E-Sign Co-Sign Detail Recorded Client Recorded Date Recorded By Document 01/31/22 14:49 GAGANDEEP [id number] 01/31/22 14:51 GAGANDEEP 01/31/22 14:49 Wound Care Nurse 3 #9 left medial groin/thigh -Ulcer Cleansing Rinsed/ Irrigated with Saline -Foul Odor after Cleansing No -Negative Pressure Wound Therapy N/A -Primary Dressing Applied C Hydrogel ($), Mepilex Border -Mepilex Border 1 Left -Compression Wrap Desmond Wrap Pain Scale: 0-10 Numeric Is Patient Pain Free? Yes WC - Visit Discharge Discharge Condition Stable Ambulatory Status Ambulatory Transportation Private Auto Medication Reconcilliation completed & Yes provided to patient/care provider Clinical Summary of Care Provided Yes Assessment/Plan Assessment/Plan (1) Chronic ulcer of left thigh with fat layer exposed: CODE(S): L97.122 - Non-pressure chronic ulcer of left thigh with fat layer exposed (2) Edema of both lower extremities: CODE(S): R60.0 - Localized edema (3) Chronic acquired lymphedema: CODE(S): I89.0 - Lymphedema, not elsewhere classified (4) Excessive and redundant skin and subcutaneous tissue: CODE(S): L98.7 - Excessive and redundant skin and subcutaneous tissue (5) Excessive body weight loss: CODE(S): R63.4 - Abnormal weight loss (6) History of bariatric surgery: CODE(S): Z98.84 - Bariatric surgery status (7) Former smoker: CODE(S): Z87.891 - Personal history of nicotine dependence PLAN: Patient was evaluated of the wound center today. He tolerated the subcutaneous debridement well. Wound care - Collagen hydrogel covered with adaptic and topped with adaptic and covered with gauze daily. If he covers it with Mepilex then he will change it every other day. He wears DESMOND wraps for compression. Will order [place] wraps for compression. He can massage the healed scar with an emollient lotion or an ointment to help soften the scarring. He is ready to proceed with the dermolipectomy right medial thigh. This unfortunately is not able to be done at [facility] at this time. The patient does not want to wait any longer. He is going to see Dr. Mederos at [place] for further evaluation. He will follow up in 4 weeks due to the holiday and vacation.
== END 2022-02-08 23:59 | disposition home or self-care (01) ==
LOC: WC 14:00
PROVIDERS: PCP Internal Medicine; Referring Provider Internal Medicine; Visit Provider Nurse Practitioner Family
DX: L97.122 Non-pressure chronic ulcer of left thigh with fat layer exposed (principal); R60.0 Localized edema; I89.0 Lymphedema, not elsewhere classified; Z87.891 Personal history of nicotine dependence; R63.4 Abnormal weight loss; L90.5 Scar conditions and fibrosis of skin; Z98.84 Bariatric surgery status; M79.3 Panniculitis, unspecified
CPT/HCPCS: 11042

== ENCOUNTER 2022-02-28 13:15 | Outpatient (RCR) | payer MEDICAID, SELFPAY ==
[2022-02-09 00:37] VITALS: BP 151/89; PULSE 64; RESP 16; TEMP 36.1; BMI 54.5
[2022-02-28 13:16] VITALS: BP 148/94; PULSE 73; RESP 20; TEMP 36.2; BMI 54.5
--- NOTE | 2022-02-28 16:33 | PN.PCM_ITS ---
History of Present Illness Date of Service: 02/28/22 Chief Complaint: Nonhealing ulcer left medial thigh. History of Wound: 46 year old man presents with areas of redundant skin and subcutaneous tissue in his bilateral medial thighs and abdominal panniculus with associated panniculitis. There is abdominal wall skin crease intertrigo and bilateral medial thigh intertrigo for which he uses powders for relief. This excess skin and subcutaneous tissue was the result of bariatric surgery done in [place] in May,. He lost about 250 lbs and his current weight is about 440 lbs. He has a history of lower extremity lymphedema resulting from the extreme body weight and has persistent dependent edema in his medial thighs which aggravates his symptomatology. He denies trauma. He denies fever. Both areas bother him but the medial thighs are his initial priority as he has trouble with ambulating. We received medical approval from his insurance company for his thigh surgery. Surgery 09/22/20 - Excision redundant skin and subcutaneous tissue left medial and posterior thigh with dermolipectomy. Wound care - Collagen hydrogel covered with adpatic, covered with mepilex every other day. DESMOND wrap for compression. Today he denies fever and chills and states his appetite is good. Progress of Wound: Left medial thigh ulcer is stable, there is some dryness on the healed scarring. Objective Data Objective Data Vital Signs: Vital Signs Temp Pulse Resp BP 97.2 F L 73 20 H 148/94 H 02/28/22 13:16 02/28/22 13:16 02/28/22 13:16 02/28/22 13:16 Body Mass Index (BMI) 54.5 Charges/Coding Procedures Integumentary 111xxx-113xx: 40953 Margarita subq tissue 20 sq cm/< Physical Exam Const alert and oriented x3 General Appearance: cooperative HEENT normocephalic Resp normal respiratory effort Cardio regular rate Extremity Extremity Narrative: Bilateral lower extremity edema and lymphedema. Skin Wound Narrative: Left medial thigh ulcer is stable, there is some dryness on the healed scarring Neuro CN's II-XII intact bilaterally Psych Appearance: grossly normal Debridement Note Debridement Note Wound debrided: medial thigh ulcer Laterality: Left Type of Debridement: Excisional debridement Anesthesia Used: 5% Lidocaine Gel Depth: Down to and including healthy tissue and in the subcutaneous layer Percentage of wound debrided: 100 Instrument Used: 3mm curette Tissue Removed: Non viable tissue and slough, especially on the edges of the ulcer Severity: Fat Layer Exposed Amount of bleeding with debridement: Mild Bleeding Controlled with: Pressure Patient tolerated procedure: Patient tolerated procedure well Post-Debridement Measurements and Additional Note: Post-Debridement Measurements/Treatment - Nurse 1 - General Ulcer Assessment Start: 02/28/22 13:16 Freq: Status: Active Protocol: WILLIAM Activity Type Activity Date Activity User E-sign Co-sign Detail Recorded Client Recorded Date Recorded By Document 02/28/22 13:16 DL [id number] 02/28/22 13:22 DL 02/28/22 13:16 WC - Today's Visit Information Type of service 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/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 Any new allergies or adverse reactions No Had a fall/change in ADL's that may No increase risk of falls Signs or symptoms of abuse and/or No neglect since last visit Have you been in the hospital since your No last visit? Has dressing in place as prescribed Yes Has compression in place as prescribed Yes Has offloadiing in place as prescribed N/A Experienced any changes in pain level or Yes management Pain Scale: 0-10 Numeric Is Patient Pain Free? Yes - Nurse 1 - General Ulcer Measurement Start: 02/28/22 13:16 Freq: Status: Active Protocol: Activity Type Activity Date Activity User E-sign Co-sign Detail Recorded Client Recorded Date Recorded By Document 02/28/22 13:16 DL [id number] 02/28/22 13:22 DL 02/28/22 13:16 Wound Center Nurse 1 #9 left medial groin/thigh -Current Size (cm) - Length 0.1 -Current Size (cm) - Width 0.1 -Current Size (cm) - Depth 0.1 -Total Square Cm 0.01 -Photo Taken Yes -Exudate Amt None Present -Wound Margin Thickened -Granulation Amt Large (67-100%) -Granulation Quality Pale -Necrosis Amt None Present (0 %) -Structure Exposed N/A -Texture (Josephine-wound Skin Appearance) Scarring -Moisture (Josephine-wound Skin Appearance) No Abnormality -Color (Josephine-wound Skin Appearance) No Abnormality -Temperature (Josephine-wound Skin No Abnormality Appearance) (Pt Warm) -Tenderness on Palpation (Josephine-wound No Skin Appearance) -Ulcer Cleansing Rinsed/ Irrigated with Saline -Foul Odor after Cleansing No -Anesthetic Used 5% Lidocaine Gel WC - Nurse 2 - General Ulcer CM Notes Start: 02/28/22 13:16 Freq: Status: Active Protocol: Activity Type Activity Date Activity User E-sign Co-sign Detail Recorded Client Recorded Date Recorded By Document 02/28/22 13:43 JOHN [id number] 02/28/22 13:46 JOHN 02/28/22 13:43 Wound Center Nurse 2 -Time 13:43 -Correct Patient Yes -Correct Side, Site, Position Yes -Correct Procedure Yes -Procedure Performed Yes -Type of Procedure Debridement -Clinical Debridement Subcutaneous -Tissue Removed Subcutaneous -Post Debridement (cm) - Length 1.3 -Post Debridement (cm) - Width 1.8 -Post Debridement (cm) - Depth 0.2 -Total Square (Post) (cm) 2.34 -Area of Debridement (cm) - Length 1.3 -Area of Debridement (cm) - Width 1.8 -Total Square (Area) (cm) 2.34 -Tunneling No -Undermining/Tunneling No -Circular Undermining No -Wound/Ulcer Outcome Not Healed -Ulcer Cleansing Rinsed/ Irrigated with Saline -Foul Odor after Cleansing No -Bioengineered Tissue No -Bleeding Controlled with Pressure -Treatment Response Procedure Tolerated Well -Offloading No -Debridement - Subq, 1st 20sq cm Yes Pain Scale: 0-10 Numeric Is Patient Pain Free? Yes WC - Nurse 3 - General Ulcer D/C NN Start: 02/28/22 13:16 Freq: Status: Active Protocol: Activity Type Activity Date Activity User E-sign Co-sign Detail Recorded Client Recorded Date Recorded By Document 02/28/22 13:54 DREAD [id number] 02/28/22 13:54 KR 02/28/22 13:54 Wound Care Nurse 3 #9 left medial groin/thigh -Primary Dressing Applied C Hydrogel ($) -Primary Dressing Covered/Secured with Dry Gauze, Secured with Tape Left -Compression Wrap [place] Wrap Pain Scale: 0-10 Numeric Is Patient Pain Free? Yes WC - Visit Discharge Discharge Condition Stable Ambulatory Status Ambulatory Transportation Private Auto Assessment/Plan Assessment/Plan (1) Chronic ulcer of left thigh with fat layer exposed: CODE(S): L97.122 - Non-pressure chronic ulcer of left thigh with fat layer exposed (2) Edema of both lower extremities: CODE(S): R60.0 - Localized edema (3) Chronic acquired lymphedema: CODE(S): I89.0 - Lymphedema, not elsewhere classified (4) Excessive and redundant skin and subcutaneous tissue: CODE(S): L98.7 - Excessive and redundant skin and subcutaneous tissue (5) Excessive body weight loss: CODE(S): R63.4 - Abnormal weight loss (6) History of bariatric surgery: CODE(S): Z98.84 - Bariatric surgery status (7) Former smoker: CODE(S): Z87.891 - Personal history of nicotine dependence PLAN: Plan Patient was evaluated of the wound center today. He tolerated the subcutaneous debridement well. Wound care - Collagen hydrogel covered with adaptic and topped with adaptic and covered with gauze or excel SAP dressing daily. He wears DESMOND wraps for compression. Will order [place] wraps for compression. He can massage the healed scar with an emollient lotion or an ointment to help soften the scarring. He is ready to proceed with the dermolipectomy right medial thigh. This unfortunately is not able to be done at [facility] at this time. The patient does not want to wait any longer. He saw someone at [facility] but they stated he is too heavy for their OR table, so we will refer him [facility] plastic surgery. He changed his mind about going to [facility]. He will follow up in 4 weeks due to the holiday and vacation.
== END 2022-03-10 23:59 | disposition home or self-care (01) ==
LOC: WC 13:15
PROVIDERS: PCP Internal Medicine; Referring Provider Internal Medicine; Visit Provider Nurse Practitioner Family
DX: L97.122 Non-pressure chronic ulcer of left thigh with fat layer exposed (principal); R60.0 Localized edema; I89.0 Lymphedema, not elsewhere classified; R63.4 Abnormal weight loss; L90.5 Scar conditions and fibrosis of skin; Z87.891 Personal history of nicotine dependence; Z98.84 Bariatric surgery status
CPT/HCPCS: 11042

== ENCOUNTER → 2022-03-04 | Outpatient (CLI) | payer MEDICAID, SELFPAY ==
[2022-03-04 12:35] LABS: Absolute Lymphocyte Count 1.26 X10^3/uL (0.83-4.51); Absolute Neutrophil Count 5.2 X10^3/uL (2.0-7.7); Basophil# 0.04 X10^3/uL; Basophil% 0.6 % (0-1); Eosinophil# 0.12 X10^3/uL; Eosinophils% 1.7 % (0-5); Hematocrit 39.6 % (40-54); Hemoglobin 12.6 g/dL (13.0-16.5); Lymphocyte # 1.26 X10^3/ul (0.83-4.51); Lymphocyte % 17.5 % (19-41); Mean Corp Hgb Conc 31.8 g/dL (32-36); Mean Corpuscular Hgb 25.9 pg (27.0-32.0); Mean Corpuscular Volume 81.5 fL (80-94); Mean Platelet Vol. 9.7 fl (6.2-12.0); Monocyte# 0.55 X10^3/uL; Monocyte% 7.6 % (0-10); NRBC Flagged by Analyzer 0 % (0-5); Neutrophil # 5.19 X10^3/uL (2.7-7.7); Neutrophil % 72.2 % (47-70); Platelet Count 235 K/mm3 (150-450); RBC Distribution Width CV 16.6 % (11.6-14.6); RBC Distribution Width SD 49.1 fl (35.1-43.9); Red Blood Count 4.86 M/mm3 (4.6-6.2); White Blood Count 7.2 K/mm3 (4.4-11.0)
[2022-03-04 12:43] LABS: Vitamin D,25 Hydroxy 34.4 ng/mL
[2022-03-04 12:47] LABS: Anion Gap 2 (5-15); BUN 21 mg/dL (7-18); BUN/Creat Ratio 21.2 RATIO (10-20); Calcium,Total 8.7 mg/dL (8.5-10.1); Chloride 106 mmol/L (98-107); Creatinine, Serum 0.99 mg/dL (0.70-1.30); EST Glomerular Filtration Rate 86 mL/min (>60); Est Glom Filt Rate - Afr Amer 104 mL/min (>60); Glucose 99 mg/dL (74-106); Potassium 3.9 mmol/L (3.5-5.1); Sodium Level 140 mmol/L (136-145); Thyroid Stim Hormone (TSH) 0.73 uIU/mL (0.358-3.74)
== END | disposition home or self-care (01) ==
LOC: BIMLAB 08:01
PROVIDERS: PCP Internal Medicine; Referring Provider Nurse Practitioner Family; Visit Provider Nurse Practitioner Family
DX: R41.89 Other symptoms and signs involving cognitive functions and awareness (principal); J44.9 Chronic obstructive pulmonary disease, unspecified; G47.33 Obstructive sleep apnea (adult) (pediatric); E55.9 Vitamin D deficiency, unspecified
CPT/HCPCS: 36415; 80048; 82306; 84443; 85025

== ENCOUNTER 2022-03-28 13:16 | Outpatient (RCR) | payer MEDICAID, SELFPAY ==
[2022-03-11 00:24] VITALS: BP 148/94; PULSE 73; RESP 20; TEMP 36.2; BMI 54.5
[2022-03-28 13:26] VITALS: BP 152/97; PULSE 62; RESP 20; TEMP 36.8; BMI 54.5
--- NOTE | 2022-03-28 14:35 | PN.PCM_ITS ---
History of Present Illness Date of Service: 03/28/22 Chief Complaint: Nonhealing ulcer left medial thigh. History of Wound: 46 year old man presents with areas of redundant skin and subcutaneous tissue in his bilateral medial thighs and abdominal panniculus with associated panniculitis. There is abdominal wall skin crease intertrigo and bilateral medial thigh intertrigo for which he uses powders for relief. This excess skin and subcutaneous tissue was the result of bariatric surgery done in [place] in May,. He lost about 250 lbs and his current weight is about 440 lbs. He has a history of lower extremity lymphedema resulting from the extreme body weight and has persistent dependent edema in his medial thighs which aggravates his symptomatology. He denies trauma. He denies fever. Both areas bother him but the medial thighs are his initial priority as he has trouble with ambulating. We received medical approval from his insurance company for his thigh surgery. Surgery 09/22/20 - Excision redundant skin and subcutaneous tissue left medial and posterior thigh with dermolipectomy. Wound care - Collagen hydrogel covered with adpatic, covered with [place] SAP daily or every other day. GRACIA wrap for compression. Today he denies fever and chills and states his appetite is good. Progress of Wound: Left medial thigh ulcer is smaller. There is dried, thick scabbing that was removed. Once removed, the ulcer is beefy pink and bleeds well. He states that he is having pulling on the upper portion of the healed scar. Objective Data Objective Data Vital Signs: Vital Signs Temp Pulse Resp BP 98.3 F 62 20 H 152/97 H 03/28/22 13:26 03/28/22 13:26 03/28/22 13:26 03/28/22 13:26 Body Mass Index (BMI) 54.5 Charges/Coding Procedures Integumentary 111xxx-113xx: 22047 Margarita subq tissue 20 sq cm/< Physical Exam Const alert and oriented x3 General Appearance: cooperative HEENT normocephalic Resp normal respiratory effort Cardio regular rate Extremity Extremity Narrative: Bilateral lower extremity edema and lymphedema. Skin Wound Narrative: Left medial thigh ulcer had some dried scabbing on the ulcer. The ulcer bed is beefy pink. The upper portion of the healed scarring has some skin pulling. The scar is stable. No signs of infection, no redness or erythema. Neuro Speech: speech normal Psych affect normal Appearance: grossly normal Debridement Note Debridement Note Wound debrided: medial thigh ulcer Laterality: Left Type of Debridement: Excisional debridement Anesthesia Used: 5% Lidocaine Gel Depth: Down to and including healthy tissue and in the subcutaneous layer Percentage of wound debrided: 100 Instrument Used: 3mm curette Tissue Removed: Non viable tissue and slough, especially on the edges of the ulcer Severity: Fat Layer Exposed Amount of bleeding with debridement: Mild Bleeding Controlled with: Pressure and Compression and gauze Patient tolerated procedure: Patient tolerated procedure well Post-Debridement Measurements and Additional Note: Post-Debridement Measurements/Treatment - Nurse 1 - General Ulcer Assessment Start: 03/28/22 13:25 Freq: Status: Active Protocol: WILLIAM Activity Type Activity Date Activity User E-sign Co-sign Detail Recorded Client Recorded Date Recorded By Document 03/28/22 13:26 DL [id number] 03/28/22 13:32 DL 03/28/22 13:26 WC - Today's Visit Information Type of service 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/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 ) Arrival Mode Ambulatory Transfer Assistance None Patient Identification Verified (Name & Yes ) Patient Requires Transmission-Based No Precautions Height and Weight Body Mass Index (BMI) 54.5 BMI Classification Obese Vital Signs Temperature (97.8 F-99.1 F) 98.3 F Temperature Source Temporal Pulse Rate (60-100) 62 Pulse Location Monitor Respiratory Rate (12-18) 20 H Respiratory rate source Observation Blood Pressure (90/60-120/80) 152/97 H Blood Pressure Mean (mm Hg) 115 Source Monitor Position Semi-Fowlers Blood Pressure Location Right Arm History Since Last Visit- (Skip if this is Patient's initial visit) Have you changed medications since your No last visit? Any new allergies or adverse reactions No Had a fall/change in ADL's that may No increase risk of falls Signs or symptoms of abuse and/or No neglect since last visit Have you been in the hospital since your No last visit? Has dressing in place as prescribed Yes Has compression in place as prescribed N/A Has offloadiing in place as prescribed N/A Experienced any changes in pain level or No management Left Footwear Regular Shoe Right Footwear Regular Shoe Pain Scale: 0-10 Numeric Is Patient Pain Free? Yes - Nurse 1 - General Ulcer Measurement Start: 03/28/22 13:25 Freq: Status: Active Protocol: Activity Type Activity Date Activity User E-sign Co-sign Detail Recorded Client Recorded Date Recorded By Document 03/28/22 13:26 DL [id number] 03/28/22 13:32 DL 03/28/22 13:26 Wound Center Nurse 1 #9 left medial groin/thigh -Current Size (cm) - Length 0.6 -Current Size (cm) - Width 1 -Current Size (cm) - Depth 0.1 -Total Square Cm 0.6 -Photo Taken No -Exudate Amt Small -Exudate Type Serosanguineous -Wound Margin Distinct, Outline Attached -Granulation Amt Large (67-100%) -Granulation Quality [place] -Necrosis Amt Small (1-33%) -Necrotic Tissue Type Adherent Slough -Texture (Josephine-wound Skin Appearance) Assessed, Scarring -Moisture (Josephine-wound Skin Appearance) Assessed -Color (Josephine-wound Skin Appearance) No Abnormality, Assessed -Temperature (Josephine-wound Skin No Abnormality Appearance) (Pt Warm) -Tenderness on Palpation (Josephine-wound No Skin Appearance) -Ulcer Cleansing Rinsed/ Irrigated with Saline -Foul Odor after Cleansing No -Anesthetic Used 5% Lidocaine Gel WC - Nurse 2 - General Ulcer CM Notes Start: 03/28/22 13:25 Freq: Status: Active Protocol: Activity Type Activity Date Activity User E-sign Co-sign Detail Recorded Client Recorded Date Recorded By Document 03/28/22 13:53 [id number] 03/28/22 13:55 03/28/22 13:53 Wound Center Nurse 2 -Time 13:53 -Correct Patient Yes -Correct Side, Site, Position Yes -Correct Procedure Yes -Procedure Performed Yes -Type of Procedure Debridement -Clinical Debridement Subcutaneous -Tissue Removed Subcutaneous -Post Debridement (cm) - Length 1.4 -Post Debridement (cm) - Width 1.5 -Post Debridement (cm) - Depth 0.2 -Total Square (Post) (cm) 2.10 -Area of Debridement (cm) - Length 1.4 -Area of Debridement (cm) - Width 1.5 -Total Square (Area) (cm) 2.10 -Tunneling No -Undermining/Tunneling No -Circular Undermining No -Wound/Ulcer Outcome Not Healed -Ulcer Cleansing Rinsed/ Irrigated with Saline -Foul Odor after Cleansing No -Bioengineered Tissue No -Bleeding Controlled with Pressure -Treatment Response Procedure Tolerated Well -Offloading No -Debridement - Subq, 1st 20sq cm Yes Pain Scale: 0-10 Numeric Is Patient Pain Free? Yes - Nurse 3 - General Ulcer D/C NN Start: 03/28/22 13:25 Freq: Status: Active Protocol: Activity Type Activity Date Activity User E-sign Co-sign Detail Recorded Client Recorded Date Recorded By Document 03/28/22 14:03 GAGANDEEP [id number] 03/28/22 14:03 GAGANDEEP 03/28/22 14:03 Wound Care Nurse 3 #9 left medial groin/thigh -Ulcer Cleansing Rinsed/ Irrigated with Saline -Foul Odor after Cleansing No -Negative Pressure Wound Therapy N/A -Primary Dressing Applied C Hydrogel ($), Mepilex Border -Mepilex Border 1 Pain Scale: 0-10 Numeric Is Patient Pain Free? Yes WC - Visit Discharge Discharge Condition Stable Ambulatory Status Ambulatory Transportation Private Auto Medication Reconcilliation completed & Yes provided to patient/care provider Clinical Summary of Care Provided Yes Assessment/Plan Assessment/Plan (1) Chronic ulcer of left thigh with fat layer exposed: CODE(S): L97.122 - Non-pressure chronic ulcer of left thigh with fat layer exposed (2) Edema of both lower extremities: CODE(S): R60.0 - Localized edema (3) Chronic acquired lymphedema: CODE(S): I89.0 - Lymphedema, not elsewhere classified (4) Excessive and redundant skin and subcutaneous tissue: CODE(S): L98.7 - Excessive and redundant skin and subcutaneous tissue (5) Excessive body weight loss: CODE(S): R63.4 - Abnormal weight loss (6) History of bariatric surgery: CODE(S): Z98.84 - Bariatric surgery status (7) Former smoker: CODE(S): Z87.891 - Personal history of nicotine dependence PLAN: Plan Patient was evaluated of the wound center today. He tolerated the subcutaneous debridement well. Wound care - Collagen hydrogel covered with adaptic and topped with adaptic and covered with gauze or excel SAP dressing daily. He wears GRACIA wraps for compression. Will order [place] wraps for compression. He can massage the healed scar with an emollient lotion or an ointment to help soften the scarring. Instructed to focus on massaging the proximal portion of the scarring where the pulling is occuring to help soften the scarring and help with the pulling. He is ready to proceed with the dermolipectomy right medial thigh. The patient has decided to wait until the surgery can be done in [place]. He will follow up in 3 weeks.
== END 2022-04-10 23:59 | disposition home or self-care (01) ==
LOC: WC 13:16
PROVIDERS: PCP Internal Medicine; Referring Provider Internal Medicine; Visit Provider Nurse Practitioner Family
DX: L97.122 Non-pressure chronic ulcer of left thigh with fat layer exposed (principal); Z87.891 Personal history of nicotine dependence; L90.5 Scar conditions and fibrosis of skin; R60.0 Localized edema; R63.4 Abnormal weight loss; I89.0 Lymphedema, not elsewhere classified
CPT/HCPCS: 11042

== ENCOUNTER 2022-05-09 13:15 | Outpatient (RCR) | payer MEDICAID, SELFPAY ==
[2022-04-11 00:20] VITALS: BP 152/97; PULSE 62; RESP 20; TEMP 36.8; BMI 54.5
[2022-04-18 13:17] VITALS: BP 132/74; PULSE 78; TEMP 36.6; BMI 54.5
--- NOTE | 2022-04-18 14:27 | PCM.WC.PN ---
History of Present Illness Date of Service: 04/18/22 Chief Complaint: Nonhealing ulcer left medial thigh. History of Wound: 46 year old man presents with areas of redundant skin and subcutaneous tissue in his bilateral medial thighs and abdominal panniculus with associated panniculitis. There is abdominal wall skin crease intertrigo and bilateral medial thigh intertrigo for which he uses powders for relief. This excess skin and subcutaneous tissue was the result of bariatric surgery done in [place] in May,. He lost about 250 lbs and his current weight is about 440 lbs. He has a history of lower extremity lymphedema resulting from the extreme body weight and has persistent dependent edema in his medial thighs which aggravates his symptomatology. He denies trauma. He denies fever. Both areas bother him but the medial thighs are his initial priority as he has trouble with ambulating. We received medical approval from his insurance company for his thigh surgery. Surgery 09/22/20 - Excision redundant skin and subcutaneous tissue left medial and posterior thigh with dermolipectomy. Wound care - Collagen hydrogel covered with adpatic, covered with [place] SAP daily or every other day. GRACIA wrap for compression. Today he denies fever and chills and states his appetite is good. Progress of Wound: Left medial thigh ulcer is smaller in size. He continues to get thick, scab like tissue, surrounding the edges of the ulcer. Objective Data Objective Data Vital Signs: Vital Signs Temp Pulse Resp BP 97.8 F 78 20 H 132/74 H 04/18/22 13:17 04/18/22 13:17 04/11/22 00:20 04/18/22 13:17 Body Mass Index (BMI) 54.5 Charges/Coding Procedures Integumentary 111xxx-113xx: 14303 Margarita subq tissue 20 sq cm/< Physical Exam Const alert and oriented x3 General Appearance: cooperative HEENT normocephalic Resp normal respiratory effort Cardio regular rate Extremity Extremity Narrative: Bilateral lower extremity edema and lymphedema. Skin Wound Narrative: Left medial thigh ulcer had some dried scabbing on the ulcer. The ulcer bed is beefy pink. The upper portion of the healed scarring has some skin pulling. The scar is stable. No signs of infection, no redness or erythema. Neuro oriented x3 and moves all extremities Psych affect normal Appearance: grossly normal Debridement Note Debridement Note Wound debrided: medial thigh ulcer Laterality: Left Type of Debridement: Excisional debridement Anesthesia Used: 5% Lidocaine Gel Depth: Down to and including healthy tissue and in the subcutaneous layer Percentage of wound debrided: 100 Instrument Used: 3mm curette Tissue Removed: Non viable tissue and slough, especially on the edges of the ulcer Severity: Fat Layer Exposed Amount of bleeding with debridement: Mild Bleeding Controlled with: Pressure and Compression and gauze Patient tolerated procedure: Patient tolerated procedure well Post-Debridement Measurements and Additional Note: Post-Debridement Measurements/Treatment - Nurse 1 - General Ulcer Assessment Start: 04/18/22 13:17 Freq: Status: Active Protocol: WILLIAM Activity Type Activity Date Activity User E-sign Co-sign Detail Recorded Client Recorded Date Recorded By Document 04/18/22 13:17 DREAD [id number] 04/18/22 13:18 DREAD 04/18/22 13:17 ACOSTA - Today's Visit Information Type of service 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/[employer]ET[employer] ) Arrival Mode Ambulatory Patient Identification Verified (Name & Yes ) Height and Weight Body Mass Index (BMI) 54.5 BMI Classification Obese Vital Signs Temperature (97.8 F-99.1 F) 97.8 F Temperature Source Temporal Pulse Rate (60-100) 78 Pulse Location Monitor Blood Pressure (90/60-120/80) 132/74 H Blood Pressure Mean (mm Hg) 93 Source Monitor Position Sitting Blood Pressure Location Left Arm History Since Last Visit- (Skip if this is Patient's initial visit) Have you changed medications since your No last visit? Any new allergies or adverse reactions No Had a fall/change in ADL's that may No increase risk of falls Signs or symptoms of abuse and/or No neglect since last visit Have you been in the hospital since your No last visit? Has dressing in place as prescribed Yes Has compression in place as prescribed N/A Has offloadiing in place as prescribed N/A Experienced any changes in pain level or No management Left Footwear Regular Shoe Right Footwear Regular Shoe Pain Scale: 0-10 Numeric Is Patient Pain Free? Yes Rodolfo Nurse 1 - General Ulcer Measurement Start: 04/18/22 13:17 Freq: Status: Active Protocol: Activity Type Activity Date Activity User E-sign Co-sign Detail Recorded Client Recorded Date Recorded By Document 04/18/22 13:17 DREAD [id number] 04/18/22 13:18 KR 04/18/22 13:17 Wound Center Nurse 1 #9 left medial groin/thigh -Current Size (cm) - Length 1.3 -Current Size (cm) - Width 1.4 -Current Size (cm) - Depth 0.2 -Total Square Cm 1.82 -Exudate Amt Small -Exudate Type Serosanguineous -Wound Margin Distinct, Outline Attached -Granulation Amt Small (1-33%) -Granulation Quality [place] -Necrosis Amt Medium (34-66%) -Necrotic Tissue Type Adherent Slough -Texture (Josephine-wound Skin Appearance) Assessed, Scarring -Moisture (Josephine-wound Skin Appearance) No Abnormality, Assessed -Color (Josephine-wound Skin Appearance) No Abnormality, Assessed -Temperature (Josephine-wound Skin No Abnormality Appearance) (Pt Warm) -Tenderness on Palpation (Josephine-wound No Skin Appearance) -Ulcer Cleansing Rinsed/ Irrigated with Saline -Foul Odor after Cleansing No -Anesthetic Used 5% Lidocaine Gel WC - Nurse 2 - General Ulcer CM Notes Start: 04/18/22 13:17 Freq: Status: Active Protocol: Activity Type Activity Date Activity User E-sign Co-sign Detail Recorded Client Recorded Date Recorded By Document 04/18/22 13:42 [id number] 04/18/22 13:43 JOHN 04/18/22 13:42 Wound Center Nurse 2 -Time 13:42 -Correct Patient Yes -Correct Side, Site, Position Yes -Correct Procedure Yes -Procedure Performed Yes -Type of Procedure Debridement -Clinical Debridement Subcutaneous -Tissue Removed Subcutaneous -Post Debridement (cm) - Length 1.0 -Post Debridement (cm) - Width 0.5 -Post Debridement (cm) - Depth 0.2 -Total Square (Post) (cm) 0.50 -Area of Debridement (cm) - Length 1.0 -Area of Debridement (cm) - Width 0.5 -Total Square (Area) (cm) 0.50 -Tunneling No -Undermining/Tunneling No -Circular Undermining No -Wound/Ulcer Outcome Not Healed -Ulcer Cleansing Rinsed/ Irrigated with Saline -Foul Odor after Cleansing No -Bioengineered Tissue No -Bleeding Controlled with Pressure -Treatment Response Procedure Tolerated Well -Offloading No -Debridement - Subq, 1st 20sq cm Yes Pain Scale: 0-10 Numeric Is Patient Pain Free? Yes WC - Nurse 3 - General Ulcer D/C NN Start: 04/18/22 13:17 Freq: Status: Active Protocol: Activity Type Activity Date Activity User E-sign Co-sign Detail Recorded Client Recorded Date Recorded By Document 04/18/22 13:53 DL [id number] 04/18/22 13:55 DL 04/18/22 13:53 Wound Care Nurse 3 #9 left medial groin/thigh -Ulcer Cleansing Rinsed/ Irrigated with Saline -Foul Odor after Cleansing No -Primary Dressing Applied Mepilex Border, NonAdherent Contact Layer -Other Dressing hydrogel/ mepilex -Mepilex Border 1 Treatment Response Procedure Tolerated Well Pain Scale: 0-10 Numeric Is Patient Pain Free? Yes WC - Visit Discharge Discharge Condition Stable Ambulatory Status Ambulatory Transportation Private [facility] Facility Type Home Health Orders Sent Yes Assessment/Plan Assessment/Plan (1) Chronic ulcer of left thigh with fat layer exposed: CODE(S): L97.122 - Non-pressure chronic ulcer of left thigh with fat layer exposed (2) Edema of both lower extremities: CODE(S): R60.0 - Localized edema (3) Chronic acquired lymphedema: CODE(S): I89.0 - Lymphedema, not elsewhere classified (4) Excessive and redundant skin and subcutaneous tissue: CODE(S): L98.7 - Excessive and redundant skin and subcutaneous tissue (5) Excessive body weight loss: CODE(S): R63.4 - Abnormal weight loss (6) History of bariatric surgery: CODE(S): Z98.84 - Bariatric surgery status (7) Former smoker: CODE(S): Z87.891 - Personal history of nicotine dependence PLAN: Plan Patient was evaluated of the wound center today. He tolerated the subcutaneous debridement well. Wound care - Collagen hydrogel covered with adaptic and topped with adaptic and covered with gauze or excel SAP dressing daily. He wears GRACIA wraps for compression. Will order [place] wraps for compression. He can massage the healed scar with an emollient lotion or an ointment to help soften the scarring. Instructed to focus on massaging the proximal portion of the scarring where the pulling is occuring to help soften the scarring and help with the pulling. He is ready to proceed with the dermolipectomy right medial thigh. The patient has decided to wait until the surgery can be done in [place]. He will follow up in 3 weeks.
[2022-05-09 13:17] VITALS: BP 152/101; PULSE 80; RESP 18; TEMP 36.2; BMI 54.5
--- NOTE | 2022-05-09 14:04 | PCM.WC.PN ---
History of Present Illness Date of Service: 05/09/22 Chief Complaint: Nonhealing ulcer left medial thigh. History of Wound: 46 year old man presents with areas of redundant skin and subcutaneous tissue in his bilateral medial thighs and abdominal panniculus with associated panniculitis. There is abdominal wall skin crease intertrigo and bilateral medial thigh intertrigo for which he uses powders for relief. This excess skin and subcutaneous tissue was the result of bariatric surgery done in [place] in May,. He lost about 250 lbs and his current weight is about 440 lbs. He has a history of lower extremity lymphedema resulting from the extreme body weight and has persistent dependent edema in his medial thighs which aggravates his symptomatology. He denies trauma. He denies fever. Both areas bother him but the medial thighs are his initial priority as he has trouble with ambulating. We received medical approval from his insurance company for his thigh surgery. Surgery 09/22/20 - Excision redundant skin and subcutaneous tissue left medial and posterior thigh with dermolipectomy. Wound care - Collagen hydrogel covered with adpatic, covered with [place] SAP daily or every other day. GRACIA wrap for compression. Today he denies fever and chills and states his appetite is good. Progress of Wound: Left medial thigh ulcer is smaller in size. He continues to get thick, scab like tissue, surrounding the edges of the ulcer. Objective Data Objective Data Vital Signs: Vital Signs Temp Pulse Resp BP 97.2 F L 80 18 152/101 H 05/09/22 13:17 05/09/22 13:17 05/09/22 13:17 05/09/22 13:17 Body Mass Index (BMI) 54.5 Charges/Coding Procedures Integumentary 111xxx-113xx: 98735 Margarita subq tissue 20 sq cm/< Physical Exam Const alert and oriented x3 General Appearance: cooperative HEENT normocephalic Resp normal respiratory effort Cardio regular rate Extremity Extremity Narrative: Bilateral lower extremity edema and lymphedema. He is good about wearing compression bilaterally. Skin Wound Narrative: Left medial thigh ulcer had some dried scabbing on the ulcer. The ulcer is smaller and the ulcer bed is beefy pink. The upper portion of the healed scarring has some skin pulling. The scar is stable. No signs of infection, no redness or erythema. Neuro oriented x3 and moves all extremities Psych affect normal Appearance: grossly normal Debridement Note Debridement Note Wound debrided: medial thigh ulcer Laterality: Left Type of Debridement: Excisional debridement Anesthesia Used: 5% Lidocaine Gel Depth: Down to and including healthy tissue and in the subcutaneous layer Percentage of wound debrided: 100 Instrument Used: 3mm curette Tissue Removed: Non viable tissue and slough, especially on the edges of the ulcer Severity: Fat Layer Exposed Amount of bleeding with debridement: Mild Bleeding Controlled with: Pressure and Compression and gauze Patient tolerated procedure: Patient tolerated procedure well Post-Debridement Measurements and Additional Note: Post-Debridement Measurements/Treatment - Nurse 1 - General Ulcer Assessment Start: 04/18/22 13:17 Freq: Status: Active Protocol: WILLIAM Activity Type Activity Date Activity User E-sign Co-sign Detail Recorded Client Recorded Date Recorded By Document 04/18/22 13:17 KR [id number] 04/18/22 13:18 KR Document 05/09/22 13:17 PL [id number] 05/09/22 13:24 PL 04/18/22 05/09/22 13:17 13:17 - Today's Visit Information Type of service Follow-up Visit 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/[employer] MANAGER (Physician/[employer] MANAGER ) ) Arrival Mode Ambulatory Ambulatory Transfer Assistance None Patient Identification Verified (Name & Yes Yes ) Patient Requires Transmission-Based No Precautions Safety Precautions NA Height and Weight Body Mass Index (BMI) 54.5 54.5 BMI Classification Obese Obese Vital Signs Temperature (97.8 F-99.1 F) 97.8 F 97.2 F L Temperature Source Temporal Temporal Pulse Rate (60-100) 78 80 Pulse Location Monitor Respiratory Rate (12-18) 18 Blood Pressure (90/60-120/80) 132/74 H 152/101 H Blood Pressure Mean (mm Hg) 93 118 Source Monitor Position Sitting Blood Pressure Location Left Arm History Since Last Visit- (Skip if this is Patient's initial visit) Have you changed medications since your No No last visit? Any new allergies or adverse reactions No No Had a fall/change in ADL's that may No No increase risk of falls Signs or symptoms of abuse and/or No No neglect since last visit Have you been in the hospital since your No No last visit? Has dressing in place as prescribed Yes Yes Has compression in place as prescribed N/A Yes Has offloadiing in place as prescribed N/A N/A Experienced any changes in pain level or No No management Left Footwear Regular Shoe Right Footwear Regular Shoe Pain Scale: 0-10 Numeric Is Patient Pain Free? Yes Yes WC - Nurse 1 - General Ulcer Measurement Start: 04/18/22 13:17 Freq: Status: Active Protocol: Activity Type Activity Date Activity User E-sign Co-sign Detail Recorded Client Recorded Date Recorded By Document 04/18/22 13:17 KR [id number] 04/18/22 13:18 KR Document 05/09/22 13:17 PL [id number] 05/09/22 13:24 PL 04/18/22 05/09/22 13:17 13:17 Wound Center Nurse 1 #9 left medial groin/thigh -Combined with other wound No -Current Size (cm) - Length 1.3 0.5 -Current Size (cm) - Width 1.4 0.5 -Current Size (cm) - Depth 0.2 0.5 -Total Square Cm 1.82 0.25 -Tunneling No -Undermining/Tunneling No -Circular Undermining No -Classification - Thickness Partial Thickness -Exudate Amt Small Medium -Exudate Type Serosanguineous Serosanguineous -Wound Margin Distinct, Outline Attached -Granulation Amt Small (1-33%) Large (67-100%) -Granulation Quality [place] -Slough/Fibrin Yes -Necrosis Amt Medium (34-66%) Small (1-33%) -Necrotic Tissue Type Adherent Slough Adherent Slough -Texture (Josephine-wound Skin Appearance) Assessed, Scarring -Moisture (Josephine-wound Skin Appearance) No Abnormality, Assessed -Color (Josephine-wound Skin Appearance) No Abnormality, Assessed -Temperature (Josephine-wound Skin No Abnormality Appearance) (Pt Warm) -Tenderness on Palpation (Josephine-wound No Skin Appearance) -Ulcer Cleansing Rinsed/ Irrigated with Saline -Foul Odor after Cleansing No -Anesthetic Used 5% Lidocaine Gel WC - Nurse 2 - General Ulcer CM Notes Start: 04/18/22 13:17 Freq: Status: Active Protocol: Activity Type Activity Date Activity User E-sign Co-sign Detail Recorded Client Recorded Date Recorded By Document 04/18/22 13:42 [id number] 04/18/22 13:43 Document 05/09/22 13:44 [id number] 05/09/22 13:48 04/18/22 05/09/22 13:42 13:44 Wound Center Nurse 2 #9 left medial groin/thigh -Time 13:42 13:45 -Correct Patient Yes Yes -Correct Side, Site, Position Yes Yes -Correct Procedure Yes Yes -Procedure Performed Yes Yes -Type of Procedure Debridement Debridement -Clinical Debridement Subcutaneous Subcutaneous -Tissue Removed Subcutaneous Subcutaneous -Post Debridement (cm) - Length 1.0 0.2 -Post Debridement (cm) - Width 0.5 0.2 -Post Debridement (cm) - Depth 0.2 0.1 -Total Square (Post) (cm) 0.50 0.04 -Area of Debridement (cm) - Length 1.0 0.2 -Area of Debridement (cm) - Width 0.5 0.2 -Total Square (Area) (cm) 0.50 0.04 -Tunneling No No -Undermining/Tunneling No No -Circular Undermining No No -Wound/Ulcer Outcome Not Healed Not Healed -Ulcer Cleansing Rinsed/ Rinsed/ Irrigated with Irrigated with Saline Saline -Foul Odor after Cleansing No No -Bioengineered Tissue No No -Bleeding Controlled with Pressure Pressure -Treatment Response Procedure Procedure Not Tolerated Well Tolerated Well -Offloading No No -Debridement - Subq, 1st 20sq cm Yes Yes Pain Scale: 0-10 Numeric Is Patient Pain Free? Yes Yes WC - Nurse 3 - General Ulcer D/C NN Start: 04/18/22 13:17 Freq: Status: Active Protocol: Activity Type Activity Date Activity User E-sign Co-sign Detail Recorded Client Recorded Date Recorded By Document 04/18/22 13:53 DL [id number] 04/18/22 13:55 DL Document 05/09/22 13:57 PL [id number] 05/09/22 13:58 PL 04/18/22 05/09/22 13:53 13:57 Wound Care Nurse 3 #9 left medial groin/thigh -Ulcer Cleansing Rinsed/ Rinsed/ Irrigated with Irrigated with Saline Saline -Foul Odor after Cleansing No No -Primary Dressing Applied Mepilex Border, Mepilex Border NonAdherent Contact Layer -Other Dressing hydrogel/ Hydrogel, mepilex Adaptec, Mepilex boader -Mepilex Border 1 1 Treatment Response Procedure Tolerated Well Pain Scale: 0-10 Numeric Is Patient Pain Free? Yes Yes WC - Visit Discharge Discharge Condition Stable Stable Ambulatory Status Ambulatory Ambulatory Transportation Private Auto Private Auto Facility Type Home Health Orders Sent Yes Assessment/Plan Assessment/Plan (1) Chronic ulcer of left thigh with fat layer exposed: CODE(S): L97.122 - Non-pressure chronic ulcer of left thigh with fat layer exposed (2) Edema of both lower extremities: CODE(S): R60.0 - Localized edema (3) Chronic acquired lymphedema: CODE(S): I89.0 - Lymphedema, not elsewhere classified (4) Excessive and redundant skin and subcutaneous tissue: CODE(S): L98.7 - Excessive and redundant skin and subcutaneous tissue (5) Excessive body weight loss: CODE(S): R63.4 - Abnormal weight loss (6) History of bariatric surgery: CODE(S): Z98.84 - Bariatric surgery status (7) Former smoker: CODE(S): Z87.891 - Personal history of nicotine dependence PLAN: Plan Patient was evaluated of the wound center today. He tolerated the subcutaneous debridement well. Wound care - Collagen hydrogel covered with adaptic and topped [place] SAP dressing daily. He wears GRACIA wraps for compression. Will order [place] wraps for compression. He can massage the healed scar with an emollient lotion or an ointment to help soften the scarring. Instructed to focus on massaging the proximal portion of the scarring where the pulling is occuring to help soften the scarring and help with the pulling. He is ready to proceed with the dermolipectomy right medial thigh. The patient has decided to wait until the surgery can be done in [place]. He will follow up in 3 weeks.
== END 2022-05-11 23:59 | disposition home or self-care (01) ==
LOC: WC 13:15
PROVIDERS: PCP Internal Medicine; Referring Provider Internal Medicine; Visit Provider Nurse Practitioner Family
DX: L97.122 Non-pressure chronic ulcer of left thigh with fat layer exposed (principal); I89.0 Lymphedema, not elsewhere classified; R60.0 Localized edema; Z87.891 Personal history of nicotine dependence; L30.4 Erythema intertrigo; L98.7 Excessive and redundant skin and subcutaneous tissue; Z98.84 Bariatric surgery status
CPT/HCPCS: 11042

== ENCOUNTER 2022-05-23 13:58 | Outpatient (RCR) | payer MEDICAID, SELFPAY ==
[2022-05-12 00:24] VITALS: BP 152/101; PULSE 80; RESP 18; TEMP 36.2; BMI 54.5
[2022-05-23 14:00] VITALS: BP 132/78; PULSE 81; TEMP 36.1; BMI 54.5
--- NOTE | 2022-05-23 14:27 | PCM.WC.PN ---
History of Present Illness Date of Service: 05/23/22 Chief Complaint: Nonhealing ulcer left medial thigh. History of Wound: 46 year old man presents with areas of redundant skin and subcutaneous tissue in his bilateral medial thighs and abdominal panniculus with associated panniculitis. There is abdominal wall skin crease intertrigo and bilateral medial thigh intertrigo for which he uses powders for relief. This excess skin and subcutaneous tissue was the result of bariatric surgery done in [place] in May,. He lost about 250 lbs and his current weight is about 440 lbs. He has a history of lower extremity lymphedema resulting from the extreme body weight and has persistent dependent edema in his medial thighs which aggravates his symptomatology. He denies trauma. He denies fever. Both areas bother him but the medial thighs are his initial priority as he has trouble with ambulating. We received medical approval from his insurance company for his thigh surgery. Surgery 09/22/20 - Excision redundant skin and subcutaneous tissue left medial and posterior thigh with dermolipectomy. Wound care - Collagen hydrogel covered with adpatic, covered with [place] SAP daily or every other day. GRACIA wrap for compression. Today he denies fever and chills and states his appetite is good. Progress of Wound: Left medial thigh ulcer is smaller in size and overall is improving. Objective Data Objective Data Vital Signs: Vital Signs Temp Pulse Resp BP 97.0 F L 81 18 132/78 H 05/23/22 14:00 05/23/22 14:00 05/12/22 00:24 05/23/22 14:00 Body Mass Index (BMI) 54.5 Charges/Coding Procedures Integumentary 111xxx-113xx: 50978 Margarita subq tissue 20 sq cm/< Physical Exam Const alert and oriented x3 General Appearance: cooperative HEENT normocephalic Resp normal respiratory effort Cardio regular rate Extremity Extremity Narrative: Bilateral lower extremity edema and lymphedema. He is good about wearing compression bilaterally. Skin Wound Narrative: Left medial thigh ulcer had some dried scabbing on the ulcer. The ulcer is smaller and the ulcer bed is beefy pink. The scar is stable. No signs of infection, no redness or erythema. Neuro oriented x3 and moves all extremities Psych affect normal Appearance: grossly normal Debridement Note Debridement Note Wound debrided: medial thigh ulcer Laterality: Left Type of Debridement: Excisional debridement Anesthesia Used: 5% Lidocaine Gel Depth: Down to and including healthy tissue and in the subcutaneous layer Percentage of wound debrided: 100 Instrument Used: 3mm curette Tissue Removed: Non viable tissue and slough, especially on the edges of the ulcer Severity: Fat Layer Exposed Amount of bleeding with debridement: Mild Bleeding Controlled with: Pressure and Compression and gauze Patient tolerated procedure: Patient tolerated procedure well Post-Debridement Measurements and Additional Note: Post-Debridement Measurements/Treatment ACOSTA - Nurse 1 - General Ulcer Assessment Start: 05/23/22 14:00 Freq: Status: Active Protocol: WILLIAM Activity Type Activity Date Activity User E-sign Co-sign Detail Recorded Client Recorded Date Recorded By Document 05/23/22 14:00 DREAD [id number] 05/23/22 14:02 DREAD 05/23/22 14:00 ACOSTA - Today's Visit Information Type of service 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 Any new allergies or adverse reactions No Had a fall/change in ADL's that may No increase risk of falls Signs or symptoms of abuse and/or No neglect since last visit Have you been in the hospital since your No last visit? Has dressing in place as prescribed Yes Has compression in place as prescribed N/A Has offloadiing in place as prescribed N/A Experienced any changes in pain level or No management Left Footwear Regular Shoe Right Footwear Regular Shoe Pain Scale: 0-10 Numeric Is Patient Pain Free? Yes - Nurse 1 - General Ulcer Measurement Start: 05/23/22 14:00 Freq: Status: Active Protocol: Activity Type Activity Date Activity User E-sign Co-sign Detail Recorded Client Recorded Date Recorded By Document 05/23/22 14:00 DREAD [id number] 05/23/22 14:02 DREAD 05/23/22 14:00 Wound Center Nurse 1 #9 left medial groin/thigh -Current Size (cm) - Length 1.6 -Current Size (cm) - Width 0.6 -Current Size (cm) - Depth 0.1 -Total Square Cm 0.96 -Exudate Amt None Present -Wound Margin Distinct, Outline Attached -Granulation Amt None Present (0 %) -Necrosis Amt Small (1-33%) -Necrotic Tissue Type Adherent Slough -Texture (Josephine-wound Skin Appearance) Assessed, Scarring -Moisture (Josephine-wound Skin Appearance) No Abnormality, Assessed -Color (Josephine-wound Skin Appearance) No Abnormality, Assessed -Temperature (Josephine-wound Skin No Abnormality Appearance) (Pt Warm) -Tenderness on Palpation (Josephine-wound No Skin Appearance) -Ulcer Cleansing Rinsed/ Irrigated with Saline -Foul Odor after Cleansing No -Anesthetic Used 5% Lidocaine Gel WC - Nurse 2 - General Ulcer CM Notes Start: 05/23/22 14:00 Freq: Status: Active Protocol: Activity Type Activity Date Activity User E-sign Co-sign Detail Recorded Client Recorded Date Recorded By Document 05/23/22 14:17 [id number] 05/23/22 14:21 05/23/22 14:17 Wound Center Nurse 2 -Time 14:17 -Correct Patient Yes -Correct Side, Site, Position Yes -Correct Procedure Yes -Procedure Performed Yes -Type of Procedure Debridement -Clinical Debridement Subcutaneous -Tissue Removed Subcutaneous -Post Debridement (cm) - Length 1.5 -Post Debridement (cm) - Width 0.6 -Post Debridement (cm) - Depth 0.2 -Total Square (Post) (cm) 0.90 -Area of Debridement (cm) - Length 1.5 -Area of Debridement (cm) - Width 0.6 -Total Square (Area) (cm) 0.90 -Tunneling No -Undermining/Tunneling No -Circular Undermining No -Wound/Ulcer Outcome Not Healed -Ulcer Cleansing Rinsed/ Irrigated with Saline -Foul Odor after Cleansing No -Bioengineered Tissue No -Bleeding Controlled with Pressure -Treatment Response Procedure Tolerated Well -Offloading No -Debridement - Subq, 1st 20sq cm Yes Pain Scale: 0-10 Numeric Is Patient Pain Free? Yes ACOSTA - Nurse 3 - General Ulcer D/C NN Start: 05/23/22 14:00 Freq: Status: Active Protocol: Activity Type Activity Date Activity User E-sign Co-sign Detail Recorded Client Recorded Date Recorded By Document 05/23/22 14:21 JOHN [id number] 05/23/22 14:22 JOHN 05/23/22 14:21 Wound Care Nurse 3 #9 left medial groin/thigh -Ulcer Cleansing Rinsed/ Irrigated with Saline -Foul Odor after Cleansing No -Primary Dressing Applied Mepilex Border -Other Covering adaptic -Mepilex Border 1 Pain Scale: 0-10 Numeric Is Patient Pain Free? Yes WC - Visit Discharge Discharge Condition Stable Ambulatory Status Ambulatory Transportation Private Auto Medication Reconcilliation completed & Yes provided to patient/care provider Clinical Summary of Care Provided Yes Assessment/Plan Assessment/Plan (1) Chronic ulcer of left thigh with fat layer exposed: CODE(S): L97.122 - Non-pressure chronic ulcer of left thigh with fat layer exposed (2) Edema of both lower extremities: CODE(S): R60.0 - Localized edema (3) Chronic acquired lymphedema: CODE(S): I89.0 - Lymphedema, not elsewhere classified (4) Excessive and redundant skin and subcutaneous tissue: CODE(S): L98.7 - Excessive and redundant skin and subcutaneous tissue (5) Excessive body weight loss: CODE(S): R63.4 - Abnormal weight loss (6) History of bariatric surgery: CODE(S): Z98.84 - Bariatric surgery status (7) Former smoker: CODE(S): Z87.891 - Personal history of nicotine dependence PLAN: Plan Patient was evaluated of the wound center today. He tolerated the subcutaneous debridement well. Wound care - Collagen hydrogel covered with adaptic and topped [place] SAP dressing daily. He wears GRACIA wraps for compression. He can massage the healed scar with an emollient lotion or an ointment to help soften the scarring. Instructed to focus on massaging the proximal portion of the scarring where the pulling is occurring to help soften the scarring and help with the pulling. He is ready to proceed with the dermolipectomy right medial thigh. The patient has decided to wait until the surgery can be done in [place]. He will follow up in 3 weeks.
== END 2022-06-10 23:59 | disposition home or self-care (01) ==
LOC: WC 13:58
PROVIDERS: PCP Internal Medicine; Referring Provider Internal Medicine; Visit Provider Nurse Practitioner Family
DX: L97.122 Non-pressure chronic ulcer of left thigh with fat layer exposed (principal); Z87.891 Personal history of nicotine dependence; I89.0 Lymphedema, not elsewhere classified; R60.0 Localized edema; Z98.84 Bariatric surgery status; L98.7 Excessive and redundant skin and subcutaneous tissue
CPT/HCPCS: 11042

== ENCOUNTER 2022-07-04 13:30 | Outpatient (RCR) | payer MEDICAID, SELFPAY ==
[2022-06-11 01:03] VITALS: BP 132/78; PULSE 81; RESP 18; TEMP 36.1; BMI 54.5
[2022-06-13 13:38] VITALS: BP 158/84; PULSE 72; TEMP 35.7; BMI 54.5
--- NOTE | 2022-06-13 15:25 | PCM.WC.PN ---
History of Present Illness Date of Service: 06/13/22 Chief Complaint: Nonhealing ulcer left medial thigh. History of Wound: 47 year old man presents with areas of redundant skin and subcutaneous tissue in his bilateral medial thighs and abdominal panniculus with associated panniculitis. There is abdominal wall skin crease intertrigo and bilateral medial thigh intertrigo for which he uses powders for relief. This excess skin and subcutaneous tissue was the result of bariatric surgery done in [place] in May,. He lost about 250 lbs and his current weight is about 440 lbs. He has a history of lower extremity lymphedema resulting from the extreme body weight and has persistent dependent edema in his medial thighs which aggravates his symptomatology. He denies trauma. He denies fever. Both areas bother him but the medial thighs are his initial priority as he has trouble with ambulating. We received medical approval from his insurance company for his thigh surgery. Surgery 09/22/20 - Excision redundant skin and subcutaneous tissue left medial and posterior thigh with dermolipectomy. Wound care - Collagen hydrogel covered with adpatic, covered with [place] SAP daily or every other day. GRACIA wrap for compression. Today he denies fever and chills and states his appetite is good. Progress of Wound: Left medial thigh ulcer is much smaller and almost healed. There is thickened scar tissue present that is making it difficult for the ulcer to completely heal. Objective Data Objective Data Vital Signs: Vital Signs Temp Pulse Resp BP 96.2 F L 72 18 158/84 H 06/13/22 13:38 06/13/22 13:38 06/11/22 01:03 06/13/22 13:38 Body Mass Index (BMI) 54.5 Charges/Coding Procedures Integumentary 111xxx-113xx: 29106 Margarita subq tissue 20 sq cm/< Physical Exam Const alert and oriented x3 General Appearance: cooperative HEENT normocephalic Resp normal respiratory effort Cardio regular rate Extremity Extremity Narrative: Bilateral lower extremity edema and lymphedema. He is good about wearing compression bilaterally. Skin Wound Narrative: Left medial thigh ulcer is smaller with thickened scar tissue present that is very dry and scabbing. 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 Any new allergies or adverse reactions No Had a fall/change in ADL's that may No increase risk of falls Signs or symptoms of abuse and/or No neglect since last visit Have you been in the hospital since your No last visit? Has dressing in place as prescribed Yes Has compression in place as prescribed N/A Has offloadiing in place as prescribed N/A Experienced any changes in pain level or No management Left Footwear Regular Shoe Right Footwear Regular Shoe Pain Scale: 0-10 Numeric Is Patient Pain Free? Yes - Nurse 1 - General Ulcer Measurement Start: 06/13/22 13:38 Freq: Status: Active Protocol: Activity Type Activity Date Activity User E-sign Co-sign Detail Recorded Client Recorded Date Recorded By Document 06/13/22 13:38 NV [id number] 06/13/22 13:40 NV 06/13/22 13:38 Wound Center Nurse 1 #9 left medial groin/thigh -Combined with other wound No -Current Size (cm) - Length 0.1 -Current Size (cm) - Width 0.1 -Current Size (cm) - Depth 0.1 -Total Square Cm 0.01 -Photo Taken No -Tunneling No -Undermining/Tunneling No -Circular Undermining No -Change in Wound Grade/Stage No -Exudate Amt None Present -Wound Margin Distinct, Outline Attached -Granulation Amt None Present (0 %) -Granulation Quality N/A -Slough/Fibrin No -Necrosis Amt None Present (0 %) -Structure Exposed N/A -Texture (Josephine-wound Skin Appearance) Assessed, Scarring -Moisture (Josephine-wound Skin Appearance) No Abnormality, Assessed -Color (Josephine-wound Skin Appearance) No Abnormality, Assessed -Temperature (Josephine-wound Skin No Abnormality Appearance) (Pt Warm) -Tenderness on Palpation (Josephine-wound No Skin Appearance) -Ulcer Cleansing Rinsed/ Irrigated with Saline -Foul Odor after Cleansing No -Anesthetic Used 5% Lidocaine Gel WC - Nurse 2 - General Ulcer CM Notes Start: 06/13/22 13:38 Freq: Status: Active Protocol: Activity Type Activity Date Activity User E-sign Co-sign Detail Recorded Client Recorded Date Recorded By Document 06/13/22 13:40 JOHN [id number] 06/13/22 13:44 JOHN 06/13/22 13:40 Wound Center Nurse 2 -Time 13:41 -Correct Patient Yes -Correct Side, Site, Position Yes -Correct Procedure Yes -Procedure Performed Yes -Type of Procedure Debridement -Clinical Debridement Subcutaneous -Tissue Removed Subcutaneous -Post Debridement (cm) - Length 0.4 -Post Debridement (cm) - Width 0.5 -Post Debridement (cm) - Depth 0.1 -Total Square (Post) (cm) 0.20 -Area of Debridement (cm) - Length 0.4 -Area of Debridement (cm) - Width 0.5 -Total Square (Area) (cm) 0.20 -Tunneling No -Undermining/Tunneling No -Circular Undermining No -Wound/Ulcer Outcome Not Healed -Ulcer Cleansing Rinsed/ Irrigated with Saline -Foul Odor after Cleansing No -Bioengineered Tissue No -Bleeding Controlled with Pressure -Treatment Response Procedure Tolerated Well -Offloading No -Debridement - Subq, 1st 20sq cm Yes Pain Scale: 0-10 Numeric Is Patient Pain Free? Yes Assessment/Plan Assessment/Plan (1) Chronic ulcer of left thigh with fat layer exposed: CODE(S): L97.122 - Non-pressure chronic ulcer of left thigh with fat layer exposed (2) Edema of both lower extremities: CODE(S): R60.0 - Localized edema (3) Chronic acquired lymphedema: CODE(S): I89.0 - Lymphedema, not elsewhere classified (4) Excessive and redundant skin and subcutaneous tissue: CODE(S): L98.7 - Excessive and redundant skin and subcutaneous tissue (5) Excessive body weight loss: CODE(S): R63.4 - Abnormal weight loss (6) History of bariatric surgery: CODE(S): Z98.84 - Bariatric surgery status (7) Former smoker: CODE(S): Z87.891 - Personal history of nicotine dependence PLAN: Plan Patient was evaluated of the wound center today. He tolerated the subcutaneous debridement well. Wound care - Collagen hydrogel covered with adaptic and topped [place] SAP dressing daily. He wears GRACIA wraps for compression. He can massage the healed scar with an emollient lotion or an ointment to help soften the scarring. Instructed to focus on massaging the proximal portion of the scarring where the pulling is occurring to help soften the scarring and help with the pulling. He is ready to proceed with the dermolipectomy right medial thigh. The patient has decided to wait until the surgery can be done in [place]. He will follow up in 3 weeks.
[2022-07-04 13:35] VITALS: BP 148/105; PULSE 74; RESP 24; TEMP 35.9; BMI 54.5
--- NOTE | 2022-07-04 14:34 | PCM.WC.PN ---
History of Present Illness Date of Service: 07/04/22 Chief Complaint: Nonhealing ulcer left medial thigh. History of Wound: 47 year old man presents with areas of redundant skin and subcutaneous tissue in his bilateral medial thighs and abdominal panniculus with associated panniculitis. There is abdominal wall skin crease intertrigo and bilateral medial thigh intertrigo for which he uses powders for relief. This excess skin and subcutaneous tissue was the result of bariatric surgery done in [place] in May,. He lost about 250 lbs and his current weight is about 440 lbs. He has a history of lower extremity lymphedema resulting from the extreme body weight and has persistent dependent edema in his medial thighs which aggravates his symptomatology. He denies trauma. He denies fever. Both areas bother him but the medial thighs are his initial priority as he has trouble with ambulating. We received medical approval from his insurance company for his thigh surgery. Surgery 09/22/20 - Excision redundant skin and subcutaneous tissue left medial and posterior thigh with dermolipectomy. Wound care - Collagen hydrogel covered with adpatic, covered with [place] SAP daily or every other day. GRACIA wrap for compression. Today he denies fever and chills and states his appetite is good. Progress of Wound: Left medial thigh ulcer is healed today. There is thickened dry scabbing present that was removed. Objective Data Objective Data Vital Signs: Vital Signs Temp Pulse Resp BP 96.6 F L 74 24 H 148/105 H 07/04/22 13:35 07/04/22 13:35 07/04/22 13:35 07/04/22 13:35 Body Mass Index (BMI) 54.5 Charges/Coding Visit Charges Office Visits / Consults: 61181 OV L3 Est Physical Exam Const alert and oriented x3 General Appearance: cooperative HEENT normocephalic Resp normal respiratory effort and clear to auscultation bilaterally Cardio regular rate and regular rhythm Extremity Extremity Narrative: Bilateral lower extremity edema and lymphedema. He is good about wearing compression bilaterally. Skin Wound Narrative: Left medial thigh ulcer is healed, there is very dry and scabbing that was removed. Neuro oriented x3 and moves all extremities Psych affect normal Appearance: grossly normal Debridement Note Debridement Note No debridement was completed: No debridement was completed today Post-Debridement Measurements and Additional Note: Post-Debridement Measurements/Treatment WC - Nurse 1 - General Ulcer Assessment Start: 06/13/22 13:38 Freq: Status: Active Protocol: WILLIAM Activity Type Activity Date Activity User E-sign Co-sign Detail Recorded Client Recorded Date Recorded By Document 06/13/22 13:38 AK [id number] 06/13/22 13:40 AK Document 07/04/22 13:35 DL [id number] 07/04/22 13:38 DL 06/13/22 07/04/22 13:38 13:35 - Today's Visit Information Type of service Follow-up Visit 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/DIRECTOR OF ARCHITECTURE (Physician/DIRECTOR OF ARCHITECTURE ) ) Arrival Mode Ambulatory Ambulatory Transfer Assistance None Patient Identification Verified (Name & Yes Yes ) Patient Requires Transmission-Based No No Precautions Safety Precautions NA Height and Weight Body Mass Index (BMI) 54.5 54.5 BMI Classification Obese Obese Vital Signs Temperature (97.8 F-99.1 F) 96.2 F L 96.6 F L Temperature Source Temporal Temporal Pulse Rate (60-100) 72 74 Pulse Location Monitor Monitor Respiratory Rate (12-18) 24 H Respiratory rate source Observation Blood Pressure (90/60-120/80) 158/84 H 148/105 H Blood Pressure Mean (mm Hg) 108 119 Source Monitor Monitor History Since Last Visit- (Skip if this is Patient's initial visit) Have you changed medications since your No No last visit? Any new allergies or adverse reactions No No Had a fall/change in ADL's that may No No increase risk of falls Signs or symptoms of abuse and/or No No neglect since last visit Have you been in the hospital since your No No last visit? Has dressing in place as prescribed Yes Yes Has compression in place as prescribed N/A Yes Has offloadiing in place as prescribed N/A N/A Experienced any changes in pain level or No No management Left Footwear Regular Shoe Right Footwear Regular Shoe Pain Scale: 0-10 Numeric Is Patient Pain Free? Yes Yes - Nurse 1 - General Ulcer Measurement Start: 06/13/22 13:38 Freq: Status: Active Protocol: Activity Type Activity Date Activity User E-sign Co-sign Detail Recorded Client Recorded Date Recorded By Document 06/13/22 13:38 AK [id number] 06/13/22 13:40 AK Document 07/04/22 13:35 DL [id number] 07/04/22 13:38 DL 06/13/22 07/04/22 13:38 13:35 Wound Center Nurse 1 #9 left medial groin/thigh -Combined with other wound No -Current Size (cm) - Length 0.1 0.1 -Current Size (cm) - Width 0.1 0.1 -Current Size (cm) - Depth 0.1 0.1 -Total Square Cm 0.01 0.01 -Photo Taken No Yes -Tunneling No -Undermining/Tunneling No -Circular Undermining No -Change in Wound Grade/Stage No -Exudate Amt None Present None Present -Wound Margin Distinct, Thickened Outline Attached -Granulation Amt None Present (0 Large (67-100%) %) -Granulation Quality N/A [place] -Slough/Fibrin No -Necrosis Amt None Present (0 Small (1-33%) %) -Necrotic Tissue Type Adherent Slough -Structure Exposed N/A N/A -Texture (Josephine-wound Skin Appearance) Assessed, Scarring Scarring -Moisture (Josephine-wound Skin Appearance) No Abnormality, No Abnormality Assessed -Color (Josephine-wound Skin Appearance) No Abnormality, No Abnormality Assessed -Temperature (Josephine-wound Skin No Abnormality No Abnormality Appearance) (Pt Warm) (Pt Warm) -Tenderness on Palpation (Josephine-wound No No Skin Appearance) -Ulcer Cleansing Rinsed/ Rinsed/ Irrigated with Irrigated with Saline Saline -Foul Odor after Cleansing No No -Anesthetic Used 5% Lidocaine 5% Lidocaine Gel Gel WC - Nurse 2 - General Ulcer CM Notes Start: 06/13/22 13:38 Freq: Status: Active Protocol: Activity Type Activity Date Activity User E-sign Co-sign Detail Recorded Client Recorded Date Recorded By Document 06/13/22 13:40 [id number] 06/13/22 13:44 Document 07/04/22 14:04 [id number] 07/04/22 14:08 06/13/22 07/04/22 13:40 14:04 Wound Center Nurse 2 #9 left medial groin/thigh -Time 13:41 14:06 -Correct Patient Yes No -Correct Side, Site, Position Yes No -Correct Procedure Yes No -Procedure Performed Yes No -Type of Procedure Debridement -Clinical Debridement Subcutaneous -Tissue Removed Subcutaneous -Post Debridement (cm) - Length 0.4 0 -Post Debridement (cm) - Width 0.5 0 -Post Debridement (cm) - Depth 0.1 0 -Total Square (Post) (cm) 0.20 0 -Area of Debridement (cm) - Length 0.4 0 -Area of Debridement (cm) - Width 0.5 0 -Total Square (Area) (cm) 0.20 0 -Tunneling No No -Undermining/Tunneling No No -Circular Undermining No No -Wound/Ulcer Outcome Not Healed Healed- Epithelialized -Ulcer Cleansing Rinsed/ Rinsed/ Irrigated with Irrigated with Saline Saline -Foul Odor after Cleansing No No -Bioengineered Tissue No No -Bleeding Controlled with Pressure Pressure -Treatment Response Procedure Procedure Tolerated Well Tolerated Well -Offloading No No -Debridement - Subq, 1st 20sq cm Yes No Pain Scale: 0-10 Numeric Is Patient Pain Free? Yes Yes - Nurse 3 - General Ulcer D/C NN Start: 06/13/22 13:38 Freq: Status: Active Protocol: Activity Type Activity Date Activity User E-sign Co-sign Detail Recorded Client Recorded Date Recorded By Document 07/04/22 14:08 [id number] 07/04/22 14:09 07/04/22 14:08 Is Patient Pain Free? Yes - Visit Discharge Discharge Condition Stable Ambulatory Status Ambulatory Transportation Private Auto Medication Reconcilliation completed & Yes provided to patient/care provider Clinical Summary of Care Provided Yes Assessment/Plan Assessment/Plan (1) Chronic ulcer of left thigh with fat layer exposed: CODE(S): L97.122 - Non-pressure chronic ulcer of left thigh with fat layer exposed (2) Edema of both lower extremities: CODE(S): R60.0 - Localized edema (3) Chronic acquired lymphedema: CODE(S): I89.0 - Lymphedema, not elsewhere classified (4) Excessive and redundant skin and subcutaneous tissue: CODE(S): L98.7 - Excessive and redundant skin and subcutaneous tissue (5) Excessive body weight loss: CODE(S): R63.4 - Abnormal weight loss (6) History of bariatric surgery: CODE(S): Z98.84 - Bariatric surgery status (7) Former smoker: CODE(S): Z87.891 - Personal history of nicotine dependence PLAN: Plan Patient was evaluated of the wound center today. His left thigh ulcer is healed. Able to remove some dry scabbing. Encourage him to moisturize the area with a thick emollient lotion or Aquaphor or Vaseline. Instructed to focus on massaging the proximal portion of the scarring where the pulling is occurring to help soften the scarring and help with the pulling. He is ready to proceed with the dermolipectomy right medial thigh. Will have him follow up at [facility] for further evaluation. He will follow up as needed.
== END 2022-07-11 23:59 | disposition home or self-care (01) ==
LOC: WC 13:30
PROVIDERS: PCP Internal Medicine; Referring Provider Internal Medicine; Visit Provider Nurse Practitioner Family
DX: L97.122 Non-pressure chronic ulcer of left thigh with fat layer exposed (principal); R60.0 Localized edema; I89.0 Lymphedema, not elsewhere classified; Z87.891 Personal history of nicotine dependence; Z98.84 Bariatric surgery status
CPT/HCPCS: 11042; 99213; G0463

== ENCOUNTER → 2022-09-29 | Outpatient (CLI) | payer MEDICAID, SELFPAY ==
[2022-09-29 17:07] LABS: Hematocrit 39.6 % (40-54); Hemoglobin 12.9 g/dL (13.0-16.5); Mean Corp Hgb Conc 32.6 g/dL (32-36); Mean Corpuscular Hgb 26.1 pg (27.0-32.0); Mean Platelet Vol. 9.7 fl (6.2-12.0); Platelet Count 252 K/mm3 (150-450); RBC Distribution Width CV 16.7 % (11.6-14.6); Red Blood Count 4.95 M/mm3 (4.6-6.2); White Blood Count 6.9 K/mm3 (4.4-11.0)
[2022-09-29 17:20] LABS: Vitamin B12 572 pg/mL (211-911); Vitamin D,25 Hydroxy 16.4 ng/mL
[2022-09-29 17:25] LABS: International Normalized Ratio 1.1; Prothrombin Time (Protime)PT. 13.4 SECONDS (11.7-14.9)
[2022-09-29 17:26] LABS: Partial Thromboplast Time 36.3 Seconds (24.1-36.2)
[2022-09-29 17:39] LABS: ALB/GLOB Ratio 0.8 RATIO (0.9-2.4); AST(SGOT) 13 U/L (15-37); Alanine Aminotransfer ALT/SGPT 28 U/L (16-61); Albumin, Serum 3.4 g/dL (3.2-5.0); Alkaline Phosphatase 81 U/L (45-117); Anion Gap 7 (5-15); BUN 18 mg/dL (7-18); BUN/Creat Ratio 19.2 RATIO (10-20); Calcium,Total 8.7 mg/dL (8.5-10.1); Chloride 106 mmol/L (98-107); Creatinine, Serum 0.94 mg/dL (0.70-1.30); EST Glomerular Filtration Rate 91 mL/min (>60); Est Glom Filt Rate - Afr Amer 110 mL/min (>60); Ferritin 48 ng/mL (26-388); Glucose 104 mg/dL (74-106); Prealbumin 26.1 mg/dL (20.0-40.0); Protein, Total 7.4 g/dL (6.4-8.2); Sodium Level 140 mmol/L (136-145); Thyroid Stim Hormone (TSH) 0.59 uIU/mL (0.358-3.74); Uric Acid 6.4 mg/dL (3.5-7.2)
[2022-09-29 18:40] LABS: Hemoglobin A1c 4.8 % (3.8-5.6)
== END | disposition home or self-care (01) ==
LOC: BIMLAB 16:01
PROVIDERS: PCP Internal Medicine; Visit Provider Surgery
DX: E66.01 Morbid (severe) obesity due to excess calories (principal); L98.7 Excessive and redundant skin and subcutaneous tissue; L30.4 Erythema intertrigo; I89.0 Lymphedema, not elsewhere classified; Z98.84 Bariatric surgery status
CPT/HCPCS: 36415; 80053; 82306; 82607; 82728; 82746; 83036; 84134; 84156; 84443; 84550; 84590; 85027; 85610; 85730

== ENCOUNTER 2022-10-05 11:24 | Observation (INO) | payer MEDICAID, SELFPAY ==
--- NOTE | 2022-10-04 20:16 | HP.PCM_ITS ---
History and Physical Date of Admission: 10/05/22 HISTORY OF PRESENT ILLNESS 47 year old man presented in August, with areas of redundant skin and subcutaneous tissue in his bilateral medial thighs and abdominal panniculus with associated panniculitis.? There is abdominal wall skin crease intertrigo and bilateral medial thigh intertrigo for which he uses powders for relief.? This excess skin and subcutaneous tissue was the result of bariatric surgery done in [place] in May,.? He lost about 250 lbs and his current weight is about 440 lbs.? He has a history of lower extremity lymphedema resulting from the extreme body weight and has persistent dependent edema in his medial thighs which aggravates his symptomatology.? ? He denies trauma.? He denies fever. Both areas bother him but the medial thighs are his initial priority as he has trouble with ambulating.? We have received medical approval from his insurance company for his thigh surgery.? On September 22, he underwent excision redundant skin and subcutaneous tissue left medial and posterior thigh with dermolipectomy.? The left thigh wound healed slowly. ? He comes in today to discuss surgery on his right thigh and to answer any preop questions and to sign the office consent.? He had preop labs drawn on 09/29/22. Hgb was 12.9. Potassium was 4.0. BUN/Creatinine was 18/0.94. Total Bilirubin was 0.7. AST was 13. ALT was 28. Alkaline Phosphatase was 81. Uric Acid was 6.4. Glucose was 104. HgbA1c was 4.8. Calcium was 8.7. Ferritin was 4.8. Total protein was 7.4. Albumin was 3.4. Prealbumin was 26.1. Vitamin B12 was 572. Folate was7.60. PT was 13.4 (INR was 1.1). PTT was 36.3. Vitamin A is pending. Vitamin D was 16.4. PAST MEDICAL HISTORY Abdominal panniculus Acute postoperative anemia due to expected blood loss Allergic rhinitis Anxiety and depression 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 Brain fog Cellulitis Chronic acquired lymphedema Chronic diastolic heart failure COPD (chronic obstructive pulmonary disease) Edema of both lower extremities Emphysema of lung Essential (primary) hypertension Excessive and redundant skin and subcutaneous tissue Excessive body weight loss Former tobacco use Hemangioma of skin and subcutaneous tissue Hyperlipidemia Incomplete right bundle branch block Intertrigo Morbid obesity Nonhealing ulcer of left lower extremity with fat layer exposed CRISTINO (obstructive sleep apnea) Osteoarthritis Panniculitis Peripheral vascular disease Pulmonary embolism Ventral hernia PAST SURGICAL HISTORY History of bariatric surgery History of bariatric surgery History of corrected cleft lip and palate History of excision of mass History of open reduction and internal fixation (ORIF) procedure History of tonsillectomy ALLERGIES Penicillins MEDICATIONS acetaminophen calcium carbonate cholecalciferol (vitamin D3) multivitamin,[id number] (Complete Multivitamin tablet) polysaccharide iron complex betamethasone dipropionate topical cream lisinopril atorvastatin fluticasone propionate/actuation nasal spray levocetirizine (Xyzal) omeprazole sertraline miconazole nitrate topical powder (Miconazorb AF) furosemide quetiapine (Seroquel) FAMILY HISTORY Father - Myocardial infarction, Hypertension, Heart disease, Arthritis, Leukemia SOCIAL HISTORY how long ago did patient quit smoking:? 12 years ago alcohol intake:? never REVIEW OF SYSTEMS General - Denies fever, fatigue.? Has weight loss of 250 lbs from bariatric surgery in May,. Eyes - Denies cataracts and glaucoma. ENT - Denies nasal congestion and sore throat. Endocrine - Denies excessive thirst and urination. Skin - Denies suspicious lesions and skin cancer.? Has redundant skin and subcutaneous tissue right medial thigh and abdominal panniculus.? Had dermolipectomy left medial and posterior thigh in September,.? Has intertrigo. Musculoskeletal - Denies joint pain, joint stiffness, weakness of muscles and joints, back pain, and arthritis. Neuro - Denies headaches. Cardiovascular - Denies chest pain, fatigue, and shortness of breath with exertion. Psych - Denies anxiety and depression. Respiratory - Denies chronic cough and shortness of breath. Gastrointestinal - Denies nausea, vomiting, diarrhea, and constipation. Hematologic - Denies abnormal bruising and bleeding. Genitourinary - Denies hematuria and urinary frequency. PHYSICAL EXAMINATION General - Alert and Oriented. HEENT - PERRL. EOMI.? Throat is clear. Neck - Supple and nontender.? No cervical adenopathy. Lungs - Clear to auscultation. Heart - Regular rate and rhythm. Abdomen - Soft and nondistended.? Has large abdominal panniculus.? Has history of abdominal wall skin crease intertrigo. Extremities - Lymphedema in lower extremities.? Has redundant skin and subcutaneous tissue right medial thigh.? He has scar left medial thigh that is healed from dermolipectomy on 09/22/20.? Has history of intertrigo and panniculitis with dependent edema causing discomfort and difficulty with ambulation. No evidence of infection.? No evidence of bleeding at this time. Neuro - CN II-XII grossly intact. Psych - Normal mood and affect. ASSESSMENT 1.? Redundant skin and subcutaneous tissue right medial thigh. 2.? Abdominal panniculus. 3.? Panniculitis. 4.? Abdominal wall skin crease intertrigo and bilateral medial thigh intertrigo. 5.? Excessive body weight loss from bariatric surgery (250 lbs). 6.? History of bariatric surgery. 7.? Obesity. 8.? Lymphedema. 9.? Former smoker. 10.? Status dermolipectomy left medial and posterior thigh. PLAN Recommend excision of these areas of redundant skin and subcutaneous tissue bilateral medial thighs and abdominal panniculus.? Will address the thighs first as his ambulation and balance are affected.? We have received medical approval from his insurance company for his thigh surgery.? After the thighs have healed, can then address the abdominal panniculus at that time. Due to the large size of the redundant skin and subcutaneous tissue areas of his bilateral medial thighs with extension posteriorly, will address one thigh at a time.? Are also dealing lymphedema history.? Will be reluctant to close the wounds initially because of the risk of suboptimal healing.? Will leave the wou nd open and proceed with wound care with the VAC.? He states his left medial thigh was more symptomatic and that side was done first on 09/22/20 where he underwent excision redundant skin and subcutaneous tissue left medial and posterior thigh with dermolipectomy.? His left thigh wound healed slowly.? He is now ready to proceed with the right thigh. Surgery will be done under general anesthesia with a surgical observation overnight stay in the hospital.? Tissue that is removed will be sent to Pathology for analysis to rule out carcinoma.? Will leave the wound open again just like the left side and proceed with wound care with the VAC. ? After discharge would followup at the Wound Center.? If he reaches a plateau in the healing process, will proceed with delayed closure with skin grafting.? The skin grafting can be done at the same time as the abdominal panniculectomy. He had some preop questions that were answered personally and to his satisfaction.? He signed his office consent.? He wants to wait on the surgery until after the holidays in September.? He had preoperative labs done before the surgery on 09/29/22 because of nutritional deficiencies that can develop after bariatric surgery. Hgb was 12.9. Potassium was 4.0. BUN/Creatinine was 18/0.94. Total Bilirubin was 0.7. AST was 13. ALT was 28. Alkaline Phosphatase was 81. Uric Acid was 6.4. Glucose was 104. HgbA1c was 4.8. Calcium was 8.7. Ferritin was 4.8. Total protein was 7.4. Albumin was 3.4. Prealbumin was 26.1. Vitamin B12 was 572. Folate was7.60. PT was 13.4 (INR was 1.1). PTT was 36.3. Vitamin A is pending. Vitamin D was 16.4. Patient was informed of the risks and complications of the procedure including alternatives to surgery.? These were discussed with the patient personally.? Patient voices understanding and wishes to proceed. Some of the risks and complications were included in a form from the [employer]. Potential risks and complications included but not inclusive of bleeding, infection, hematoma, bruising, swelling, loss of sensation to skin, delayed wound healing, poor scarring, poor aesthetic outcome, intra operative cardiac or neurologic events, DVT, PE, and reaction to anesthesia. He voices understanding that the wounds would be left open initially.
[2022-10-05] VITALS (13 sets, daily range): BP systolic 105–140; BP diastolic 59–87; PULSE 61–78; RESP 16–20; TEMP 36–36.9; O2SAT 93–100; BMI 59.1
--- NOTE | 2022-10-05 | IMM_PTH ---
PATIENT: AYLA JACKSON II LOC: MS3 U#:[id number] AGE/SX: 47/M ROOM: TX316 RE10/05/[address]: Dr. Xavi Kinney MD : 1975 BED: 1 DIS: 10/10/2022 SPEC #: [id number] RECD: 10/06/22 12:18 STATUS: SOUT REQ #: [id number] WILL: 10/05/22 00:[address]: Xavi Kinney DEPT: IMMUNOHISTOCHEMISTRY RECD BY: Alana Osuna ENTERED: 10/06/22 12:20 SP TYPE: IMMUNO OTHR DR: Dr. Brian Johnson MD Tissues: Right thigh Procedures: BCL-2 (add) BCL-6 (add) CD10 (add) CD138 (add) CD15 (add) CD20 (add) CD3 (add) CD30 (add) CD43 (add) CD45 (add) CD5 (add) CD79A (add) KI-67 (add) Pankeratin (initial) PHYSICIAN & [address] [address] SPECIMEN INFORMATION: Tissue Source: Right medial thigh tissue Clinical Info: Redundant skin and subcutaneous tissue right medial thigh Specimen Number: [id number] #3 CPT code: 02558, 72906 x13 METHODOLOGY: Deparaffinized sections of prefer/formalin-fixed tissue or PAP/DQ stained slides are incubated with monoclonal/polyclonal antibodies/oligonucleotide probes. Localization is made via biotin free immunoperoxidase method. Appropriate controls are performed and reacted as expected. Results on target cell population are indicated in the following table: RESULTS: ANTIBODY / CLONE RESULT Block 3 AE1-3 (AE1/AE3/PCK26) negative CD3 (PS1) positive CD5 (SP10) positive CD10 (56C6) negative CD15 (MMA) negative CD20 (L26) positive CD30 (Dhaval-H2) negative CD43 (L60) positive CD45 (RP2/18) positive CD79a (11E3) positive CD138 (B-A38) negative BCL-2 (bcl-2/100/D5) negative BCL-6 (KI547E/A8) negative Ki-67 (30-9) negative These tests were developed and their performance characteristics determined by [facility]. They may not have been cleared or approved by the U.S. Food and Drug Administration. The FDA has determined that such clearance or approval is not necessary. The above immunohistochemical/dualISH markers are ordered and reviewed by the Pathologist. INTERPRETATION: Skin and tissue of right medial thigh region, excision: Benign lymphoid tissue. AM:yvonne 10/07/2022
[2022-10-05] MEDS: Lactated Ringers 1,000 ML 15 ML IV ×2 (06:41→11:33)
--- NOTE | 2022-10-05 07:30 | TISS_PTH ---
PATIENT: AYLA JACKSON II LOC: MS3 U#:[id number] AGE/SX: 47/M ROOM: WV316 RE10/05/[address]: Dr. Xavi Kinney MD : 1975 BED: 1 DIS: 10/10/2022 SPEC #: [id number] RECD: 10/05/22 12:09 STATUS: GELACIO EMELI #: [id number] WILL: 10/05/22 07:[address]: Xavi Kinney DEPT: SURGICAL PATHOLOGY RECD BY: Kirsty Rubio ENTERED: 10/05/22 12:11 SP TYPE: Tissue Bx YAJAIRA DR: Dr. Brian Johnson MD Tissues: TISSUE SURGICALLY REMOVED Procedures: Surgery Specimen Level IV HEADER OPERATION: Dermolipectomy medial thigh PRE-OP DIAGNOSIS: Redundant skin and subcutaneous tissue right medial thigh TISSUE SUBMITTED: Right medial thigh tissue MICROSCOPIC DIAGNOSIS Skin and tissue of right medial thigh region, excision: Skin with benign fibroepithelial polyp. Mature adipose tissue with no significant pathologic change. Benign lymphoid tissue with dystrophic microcalcifications. See comment. AM:yvonne 10/06/2022 COMMENT Immunohistochemistry ([id number]) supports the above diagnosis. MICROSCOPIC DESCRIPTION Slides are reviewed. GROSS DESCRIPTION Received without fixative is one container labeled with the patient's name and designated right medial thigh tissue. The specimen consists of three large pieces of skin with underlying tissue and two pieces of soft tissue weighing in aggregate 6000 gm and measuring in aggregate 43 x 45 x 11 cm. A small lesion (skin tag) is noted measuring 1.5 x 1 x 0.5 cm. No mass lesion is identified. Deeper area shows focal area of skeletal muscle tissue. Sections reveal edematous cut surfaces. [place] sections are submitted in six cassettes. Cassette 1 contains the skin tag and cassette 5 contains the possible skeletal muscle tissue. / SJ:yvonne 10/05/2022 TC: 5 CPT: 39168
[2022-10-05] MEDS: Clindamycin 900 MG/50 ML BAG 75 MG IV (07:37)
[2022-10-05] MEDS: Lidocaine 1% /Epi 1:100 (20ml) 20 ML Vial (10:30)
--- NOTE | 2022-10-05 10:52 | OP.PCM_ITS ---
Problems Associated Problem List Diagnoses (1) Excessive and redundant skin and subcutaneous tissue: (2) Intertrigo: (3) Excessive body weight loss: (4) History of bariatric surgery: (5) Morbid obesity: (6) Chronic acquired lymphedema: (7) Former smoker: Report of Operation Date of Procedure: 10/05/22 Pre-Operative Diagnosis: 1. Redundant skin and subcutaneous tissue right medial thigh. 2. Bilateral medial thigh intertrigo. 3. Excessive body weight loss from bariatric surgery (250 lbs). 4. History of bariatric surgery. 5. Obesity. 6. Lymphedema. 7. Former smoker. 8. Status dermolipectomy left medial and posterior thigh. Post-Operative Diagnosis: 1. Redundant skin and subcutaneous tissue right medial and posterior thigh. 2. Bilateral medial thigh intertrigo. 3. Excessive body weight loss from bariatric surgery (250 lbs). 4. History of bariatric surgery. 5. Obesity. 6. Lymphedema. 7. Former smoker. 8. Status dermolipectomy left medial and posterior thigh. Surgery/Procedure Performed:: Surgical preparation right medial and posterior thigh with excision redundant skin and subcutaneous tissue with radical dermolipectomy. Description of Surgical Findings:: 47 year old man presented in August, with areas of redundant skin and subcutaneous tissue in his bilateral medial thighs and abdominal panniculus with associated panniculitis.? There is abdominal wall skin crease intertrigo and bilateral medial thigh intertrigo for which he uses powders for relief.? This excess skin and subcutaneous tissue was the result of bariatric surgery done in [place] in May,.? He lost about 250 lbs and his current weight is about 500 lbs.? He has a history of lower extremity lymphedema resulting from the extreme body weight and has persistent dependent edema in his medial thighs which aggravates his symptomatology.? ? He denies trauma.? He denies fever. Both areas bother him but the medial thighs are his initial priority as he has trouble with ambulating.? We have received medical approval from his insurance company for his thigh surgery.? On September 22, he underwent excision redundant skin and subcutaneous tissue left medial and posterior thigh with dermolipectomy.? The left thigh wound healed slowly. ? He comes in today to discuss surgery on his right thigh and to answer any preop questions and to sign the office consent.? He had preop labs drawn on 09/29/22.? Hgb was 12.9.? Potassium was 4.0.? BUN/Creatinine was 18/0.94. Total Bilirubin was 0.7.? AST was 13.? ALT was 28.? Alkaline Phosphatase was 81.? Uric Acid was 6.4.? Glucose was 104.? HgbA1c was 4.8.? Calcium was 8.7.? Ferritin was 4.8.? Total protein was 7.4.? Albumin was 3.4.? Prealbumin was 26.1.? Vitamin B12 was 572.? Folate was7.60.? PT was? 13.4 (INR was 1.1).? PTT was 36.3.? Vitamin A is pending.? Vitamin D was 16.4. Patient was informed of the risks and complications of the procedure including alternatives to surgery. These were discussed with the patient personally. Patient voices understanding and wishes to proceed. Some of the risks and complications were included in a form from the [place] [employer]. Potential risks and complications included but not inclusive of bleeding, infection, hematoma, bruising, swelling, loss of sensation to skin, poor scarring, poor aesthetic outcome, intra operative cardiac or neurologic events, DVT, PE, and reaction to anesthesia. IV Fluids - 2500 ml. Urine Output - 300 ml. Size of wound right medial thigh - 31 x 24 x 3 cm. Surgeon: Xavi Kinney MD etl developer: Sumi Hairston MD Type of Anesthesia: General Anesthesiologist: Boo Bradley MD and Singh Fernandez MD and Layne Ortiz CRNA Specimen's removed: Excessive and redundant skin and subcutaneous tissue right medial and posterior thigh to Pathology. Drains: None. Estimated Blood Loss (mL): 850. Fluids Replaced: 2800 ml (IV Fluids 2500 ml, Urine Output 300 ml). Description of Procedure: Patient was taken to OR in supine position and was placed under general anesthesia.? The right thigh was prepped and draped in the usual fashion.? SCD was placed on left leg for DVT prophylaxis.? Perioperative antibiotics were given intravenously.? A pena catheter was placed.?? I brought the scrotum out of the surgical field and sutured it to the opposite lower abdominal area with 2-0 Silk. This made it easier to summer out the medial crural aspect of the thigh for the incision. I marked out the extent of the dermolipectomy from the right medial thigh extending onto the posterior thigh.? Incisions were made on the anteromedial edge of the thigh down to the deep subcutaneous tissue.? Several large venous perforators were encountered and ligated with 2-0 Silk tie payan tures.? I extended the incision down to the distal thigh and then onto the posterior thigh and then up to the crural crease to complete the incision.? Extensive lymphedema was present during the dermolipectomy.? Some localized inflamed folliculitis was seen and excised with the specimen.? Some of the deeper subcutaneous tissue was not excised because of the extent of the bleeding from the large venous perforators. I usually stop when the blood loss gets to around 500 ml since additional excision can be done safely at a later day.? Because of the large venous perforators that needed suture ligation, the blood loss got to around 850 ml.? So no further deeper subcutaneous excision was done at this time.? Remaining hemostasis was obtained with electrocautery.? The wound was irrigated with saline.? The size of the right medial and posterior thigh wound after the radical dermolipectomy was 31 x 24 x 3 cm or 744 cm2.? The wound was dressed with Mepitel nonadherent dressing followed by Kerlix gauze soaked in Betadine followed by dry Kerlix gauze and ABD pads and a compression jules wrap.? Tissue that was removed was sent to Pathology for analysis to rule out carcinoma. Patient tolerated the procedure well and was sent to PACU in satisfactory condition.? Patient will be sent upstairs for continued postop care. Tomorrow will try to place the VAC.? If there is difficulty with the VAC placem ent, then can proceed with Stevein's dressing changes.? He will be evaluated for a short term stay at an ECF or LTAC. Will check a Hgb postoperatively because of the operative blood loss. Will Type and Screen in case PRBC needs to be given during his hospital stay. Grafts/Implants Used: None. Procedure Start Time: 08:16 Procedure Stop Time: 10:35 Complications None. Admit VTE Documentation VTE Present on Admission: No VTE Mechan Device Prophylaxis: SCD's VTE Pharm Prophylaxis ordered?: Yes Addendum Addendum: Surgery Charges CPT - 45157 ICD-10 - L98.7, L30.4, R63.4, Z98.84, E66.01, I89.0, Z87.891
[2022-10-05 12:05] LABS: Hematocrit 34.4 % (40-54); Hemoglobin 11.6 g/dL (13.0-16.5); Mean Corp Hgb Conc 33.7 g/dL (32-36); Mean Corpuscular Volume 80.2 fL (80-94); Mean Platelet Vol. 9.2 fl (6.2-12.0); Platelet Count 270 K/mm3 (150-450); RBC Distribution Width CV 17.2 % (11.6-14.6); RBC Distribution Width SD 49.8 fl (35.1-43.9); Red Blood Count 4.29 M/mm3 (4.6-6.2); White Blood Count 11.7 K/mm3 (4.4-11.0)
--- NOTE | 2022-10-05 18:33 | NURSING ---
scd's applied in ac/or maintained
[2022-10-05] MEDS: Clindamycin 600 MG/50 ML BAG 100 MG IV (21:01)
[2022-10-05] MEDS: Enoxaparin 40 MG/0.4 ML Syringe SC (21:01)
[2022-10-05] MEDS: Atorvastatin Calcium 40 MG Tablet PO (21:01)
[2022-10-05] MEDS: QUEtiapine 25 MG Tablet PO (21:01)
[2022-10-06 02:15] VITALS: BP 143/79; PULSE 72; RESP 16; TEMP 36.8; O2SAT 96
[2022-10-06] MEDS: oxyCODONE 5 MG Tablet 10 MG PO ×4 (02:30→21:37)
[2022-10-06] MEDS: Clindamycin 600 MG/50 ML BAG 100 MG IV ×3 (05:32→21:37)
[2022-10-06 06:12] VITALS: BP 139/73; PULSE 62; RESP 16; TEMP 36.8; O2SAT 97
[2022-10-06 06:55] LABS: Hematocrit 31.3 % (40-54); Mean Corp Hgb Conc 31.9 g/dL (32-36); Mean Corpuscular Hgb 26.3 pg (27.0-32.0); Mean Corpuscular Volume 82.4 fL (80-94); Mean Platelet Vol. 9.3 fl (6.2-12.0); Platelet Count 202 K/mm3 (150-450); RBC Distribution Width CV 17.3 % (11.6-14.6); RBC Distribution Width SD 51.4 fl (35.1-43.9); White Blood Count 9.9 K/mm3 (4.4-11.0)
[2022-10-06 07:29] LABS: Anion Gap 6 (5-15); BUN 18 mg/dL (7-18); Calcium,Total 8.1 mg/dL (8.5-10.1); Chloride 106 mmol/L (98-107); Creatinine, Serum 1.06 mg/dL (0.70-1.30); EST Glomerular Filtration Rate 79 mL/min (>60); Est Glom Filt Rate - Afr Amer 96 mL/min (>60); Estimated Creatinine Clearance 110.18 ml/min; Glucose 123 mg/dL (74-106); Potassium 4.1 mmol/L (3.5-5.1); Prealbumin 21.9 mg/dL (20.0-40.0); Sodium Level 142 mmol/L (136-145)
[2022-10-06 08:38] VITALS: BP 136/80; PULSE 67; RESP 18; TEMP 36.4; O2SAT 97
[2022-10-06] MEDS: Multivitamins,Ther W-Minerals Tablet 1 TABLET PO (08:41)
[2022-10-06] MEDS: Juven (unflavored) Packet 1 PACKET PO ×2 (08:41→18:30)
[2022-10-06] MEDS: Iron Polysaccharide Complex 150 MG CAPSULE PO (08:42)
[2022-10-06] MEDS: Calcium Carbonate 500 MG Tablet PO (08:42)
--- NOTE | 2022-10-06 09:10 | CASEMGMT ---
LASHONDA ALVARADO Assessment: Face to Face with pt for initial transition planning/care coordination assessment. RN CM introduced self and role at [facility], pt voices understanding and consents to assessment. Pt is A/O x4 and answers all questions appropriately at this time. Wound nurse and aide present in room, pt agreeable to complete assessment. Care providers, pharmacy, and demographics verified/updated. Admitting Dx: dermalipectomy R medial thigh PCP:Elizabeth Specialists:Gregoria, surgeon; joey Srinivasan [facility]erred Pharmacy: [facility] Insurance: [employer] [facility] Prescription Benefit: yes LNOK: Genny Bobby, Living Arrangements: Pt lives with , dtr and son in a single story home with no steps to enter. Pt reports he is I in ADL's and denies concerns at home. Transportation: Pt drives self and denies concerns with transportation. DME/HHC/SNF: Pt has a cane and bariatric crutches but does not use. Pt reports he has had N HHC in the past and denies SNF stays. Pt reports last time the surgery was completed on his left side, he went home with [facility]. He states he was not able to manage the wound at home and he was admitted to [facility] in [place]. Pt states he wants to skip the [facility] and go directly to [facility]. Pt denies need for a list of other options. Pt states no further concerns/needs. CM to follow. Advised pt to ask CM if any further question/concerns/needs arise, voices understanding. Pt Goal: [facility] Plan: Referral to [facility] TC to Genny at [facility], explained situation to her and that pt was there in the past for the same surgery. Referral completed in [facility] and sent.
--- NOTE | 2022-10-06 09:28 | WOUNDNOTE ---
wound photo: right medial thigh
[2022-10-06] MEDS: Sertraline 50 MG Tablet PO (10:39)
[2022-10-06] MEDS: Pantoprazole Sodium 20 MG Tablet PO (10:40)
[2022-10-06] MEDS: Cholecalciferol (VIT D3) 25 MCG TABLET (1,000 UNITS) 50 MCG PO (10:40)
[2022-10-06] MEDS: Furosemide 40 MG Tablet PO (10:40)
[2022-10-06] MEDS: Enoxaparin 40 MG/0.4 ML Syringe SC ×2 (10:40→21:38)
[2022-10-06] MEDS: Lisinopril 10 MG Tablet PO (10:40)
[2022-10-06] MEDS: 0.9% Saline Lock 10 ML Syringe IV (10:46)
--- NOTE | 2022-10-06 11:27 | PCM.PN.SRG ---
Subjective Subjective Postop #1 Patient states his pain is controlled. Objective Data Objective Data Vital Signs: Vital Signs Temp Pulse Resp BP Pulse Ox O2 Del Method O2 Flow Rate 97.6 F L 67 18 136/80 H 97 Room Air 2 10/06/22 08:38 10/06/22 08:38 10/06/22 08:38 10/06/22 08:38 10/06/22 08:38 10/06/22 08:38 10/05/22 12:40 Oxygen Flow Rate (L/min) 2 Oxygen Delivery Method Room Air Weight: 511 lb 7.559 oz Body Mass Index (BMI) 59.1 Intake & Output: Intake and Output for Last 24 Hours 10/04/22 10/05/22 10/06/22 23:59 23:59 23:59 Intake Total 3084.25 / 3084.25 50 / 50 Output Total 835 / 1585 1200 / 1200 Balance 2249.25 / 1499.25 -1150 / -1150 Lab / Micro Data Result Diagrams: 10/06/22 06:25 10/06/22 06:25 Labs: Laboratory Results - last 24 hr 10/05/22 11:52: Blood Type O POSITIVE, Antibody Screen NEGATIVE 10/05/22 11:52: WBC 11.7 H, RBC 4.29 L, Hgb 11.6 L, Hct 34.4 L, MCV 80.2, MCH 27.0, MCHC 33.7, RDW Std Deviation 49.8 H, RDW Coeff of Alee 17.2 H, Plt Count 270, MPV 9.2 10/06/22 06:25: WBC 9.9, RBC 3.80 L, Hgb 10.0 L, Hct 31.3 L, MCV 82.4, MCH 26.3 L, MCHC 31.9 L D, RDW Std Deviation 51.4 H, RDW Coeff of Alee 17.3 H, Plt Count 202, MPV 9.3 10/06/22 06:25: Sodium 142, Potassium 4.1, Chloride 106, Carbon Dioxide 30.0, Anion Gap 6, BUN 18, Creatinine 1.06, Estim Creat Clear Calc 110.18, Est GFR (MDRD) Af Amer 96, Est GFR (MDRD) Non-Af 79, BUN/Creatinine Ratio 17.0, Glucose 123 H, Calcium 8.1 L, Prealbumin 21.9 Physical Exam Const alert and oriented x3 General Appearance: cooperative HEENT normocephalic Eyes General Eye: normal appearance of both eyes Resp normal respiratory effort and normal air movement Back/Spine normal ROM Extremity normal capillary refill Skin Wound Narrative: Right medial thigh wound is stable with no active bleeding. Wound bed is pink. Having serous drainage from wound. Neuro oriented x3 Psych mental status grossly normal and thought process normal Assessment & Plan Assessment/Plan (1) Excessive and redundant skin and subcutaneous tissue: (2) Intertrigo: (3) Excessive body weight loss: (4) History of bariatric surgery: (5) Morbid obesity: (6) Chronic acquired lymphedema: (7) Former smoker: (8) Acute postoperative anemia due to expected blood loss: PLAN: Plan Pain is well controlled on oral pain medication. Wound is stable with no active bleeding. Will do Dakins 0.25% moistened gauze dressing changes daily and as needed. Eventually would like to place a wound VAC at 150 mmHg but due to the location of the wound it may be difficult to keep a good seal at this time. Keep GRACIA wrap for compression. Continue Clindamycin IV antibiotic. Hgb 10.0 today which was down from 11.6 yesterday due to 850 ml blood loss from surgery along with IV fluid dilution. He is currently on iron supplementation and will recheck CBC tomorrow. BUN 18/creatinine 1.06 today. He has concerns about going home and managing this ulcer and the large amount of drainage. He states he experienced large amount of drainage from his last ulcer and it was too much to manage at home. Case management is looking into placement solutions to help with his wound care. Charges/Coding Procedures Integumentary 111xxx-113xx: 83124 Global Visit
--- NOTE | 2022-10-06 14:17 | CASEMGMT ---
Addendum entered by Garima Kyle 10/06/22 15:19: Uploaded surgery progress note and sent via careport. TC to Genny at [facility], she states precert will be started today. Pt aware. Original Note: Received tc from Tamiko at [facility] requesting op note and progress note from today. Once submitted, precert will be started. Uploaded op report and will await progress note to be signed and will send as well.
[2022-10-06 14:39] VITALS: BP 143/75; PULSE 77; RESP 18; TEMP 36.5; O2SAT 99
[2022-10-06 18:38] VITALS: BP 136/74; PULSE 74; RESP 18; TEMP 36.8; O2SAT 97
[2022-10-06 21:00] VITALS: BP 140/97; PULSE 78; RESP 16; TEMP 37.1; O2SAT 99
[2022-10-06] MEDS: QUEtiapine 25 MG Tablet PO (21:38)
[2022-10-06] MEDS: Atorvastatin Calcium 40 MG Tablet PO (21:38)
[2022-10-07 02:41] VITALS: BP 124/65; PULSE 83; RESP 18; TEMP 37.2; O2SAT 94
[2022-10-07] MEDS: Clindamycin 600 MG/50 ML BAG 100 MG IV ×3 (05:52→21:55)
[2022-10-07] MEDS: oxyCODONE 5 MG Tablet 10 MG PO ×3 (05:52→20:34)
[2022-10-07 08:00] VITALS: BP 128/63; PULSE 84; RESP 16; TEMP 36.6; O2SAT 99
[2022-10-07] MEDS: Multivitamins,Ther W-Minerals Tablet 1 TABLET PO (08:04)
[2022-10-07] MEDS: Iron Polysaccharide Complex 150 MG CAPSULE PO (08:04)
[2022-10-07] MEDS: Juven (unflavored) Packet 1 PACKET PO ×2 (08:04→17:21)
[2022-10-07] MEDS: Calcium Carbonate 500 MG Tablet PO (08:05)
[2022-10-07] MEDS: HYDROmorphone 1 MG/ML Syringe IV (08:10)
[2022-10-07] MEDS: 0.9% Saline Lock 10 ML Syringe IV (08:11)
[2022-10-07 10:00] VITALS: BP 128/63; PULSE 84; RESP 18; TEMP 36.6; O2SAT 99
[2022-10-07] MEDS: Enoxaparin 40 MG/0.4 ML Syringe SC ×2 (10:56→20:35)
[2022-10-07] MEDS: Docusate Sodium 100 MG Capsule PO (10:56)
[2022-10-07] MEDS: Cholecalciferol (VIT D3) 25 MCG TABLET (1,000 UNITS) 50 MCG PO (10:56)
[2022-10-07] MEDS: Furosemide 40 MG Tablet PO (10:56)
[2022-10-07] MEDS: Pantoprazole Sodium 20 MG Tablet PO (10:56)
[2022-10-07] MEDS: Lisinopril 10 MG Tablet PO (10:57)
[2022-10-07] MEDS: Sertraline 50 MG Tablet PO (10:57)
[2022-10-07] MEDS: DAKIN'S SOL HALF STRENGTH (=0.25%) 1 APPLIC TOPICAL (11:59)
[2022-10-07] MEDS: diazePAM 5 MG Tablet PO ×2 (12:08→20:34)
--- NOTE | 2022-10-07 13:02 | PCM.PN.SRG ---
Subjective Subjective Postop #2 Patient states he his experiencing more pain today than yesterday. He states his appetite has been good. He is complaining of itchiness under his pannus and states it is red. Objective Data Objective Data Vital Signs: Vital Signs Temp Pulse Resp BP Pulse Ox O2 Del Method O2 Flow Rate 97.9 F 84 16 128/63 H 99 Room Air 2 10/07/22 08:00 10/07/22 08:00 10/07/22 08:00 10/07/22 08:00 10/07/22 08:00 10/07/22 08:00 10/05/22 12:40 Oxygen Flow Rate (L/min) 2 Oxygen Delivery Method Room Air Weight: 511 lb 7.559 oz Body Mass Index (BMI) 59.1 Intake & Output: Intake and Output for Last 24 Hours 10/05/22 10/06/22 10/07/22 23:59 23:59 23:59 Intake Total 3084.25 / 3084.25 1750 / 1750 50 / 50 Output Total 835 / 1585 2500 / 2500 350 / 350 Balance 2249.25 / 1499.25 -750 / -750 -300 / -300 Lab / Micro Data Result Diagrams: 10/06/22 06:25 10/06/22 06:25 Physical Exam Const alert and oriented x3 General Appearance: cooperative HEENT normocephalic Eyes General Eye: normal appearance of both eyes Lymph Lymphatic: lymphedema moderate and non-pitting Resp normal respiratory effort and normal air movement Cardio regular rate Back/Spine normal ROM Extremity normal capillary refill General Extremity: edema bilateral lower extremity Details: moderate Skin Skin Narrative: He has a slight erythema under his pannus that he is complaining about being itchy. Wound Narrative: Right medial thigh wound is stable with no active bleeding. Wound bed is pink. Having large amounts of serous drainage. Dressing changed placing Dakins 0.25% moistene kerlix, topped with kerlix and ABD pads. Neuro oriented x3 Psych mental status grossly normal and thought process normal Assessment & Plan Assessment/Plan (1) Excessive and redundant skin and subcutaneous tissue: (2) Intertrigo: (3) Excessive body weight loss: (4) History of bariatric surgery: (5) Morbid obesity: (6) Chronic acquired lymphedema: (7) Former smoker: (8) Acute postoperative anemia due to expected blood loss: PLAN: Plan Pain is not as controlled today, he is receiving IV Dilaudid. Wound is stable with no active bleeding. Having significant amount of serosanguineous drainage. Dakins 0.25% moistened gauze dressing changes daily and as needed. He did well with his dressing change today. Eventually would like to place a wound VAC at 150 mmHg but due to the location of the wound it may be difficult to keep a good seal at this time. Keep GRACIA wrap for compression. Continue Clindamycin IV antibiotic. Hgb 10.0 yesterday which was down from 11.6 on 10/05/22 due to 850 ml blood loss from surgery along with IV fluid dilution. He is currently on iron supplementation. Will recheck CBC today. Prealbumin 21.9. Encourage increase in protein intake and fluid intake. He is complaining of itching under his pannus. He has a little erythema in the area. Will order Nystatin powder twice daily to the area. He has concerns about going home and managing this ulcer and the large amount of drainage. He has been approved to go to [facility] in [place]. Waiting for a bed. Charges/Coding Procedures Integumentary 111xxx-113xx: [id number] Global Visit
[2022-10-07 13:58] LABS: Hemoglobin 9.4 g/dL (13.0-16.5); Mean Corp Hgb Conc 32.4 g/dL (32-36); Mean Corpuscular Hgb 26.6 pg (27.0-32.0); Mean Corpuscular Volume 82.2 fL (80-94); Mean Platelet Vol. 9.5 fl (6.2-12.0); Platelet Count 212 K/mm3 (150-450); RBC Distribution Width CV 17.5 % (11.6-14.6); Red Blood Count 3.53 M/mm3 (4.6-6.2); White Blood Count 12.1 K/mm3 (4.4-11.0)
--- NOTE | 2022-10-07 14:11 | CASEMGMT ---
Progress note and updated clinicals sent via [facility]port to [facility].
[2022-10-07 16:00] VITALS: BP 138/78; PULSE 88; RESP 18; TEMP 36.4; O2SAT 97
[2022-10-07 17:33] VITALS: BP 138/78; PULSE 88; RESP 18; TEMP 37.2; O2SAT 98
[2022-10-07 20:21] VITALS: BP 142/75; PULSE 80; RESP 18; TEMP 37.6; O2SAT 97
[2022-10-07] MEDS: Atorvastatin Calcium 40 MG Tablet PO (20:35)
[2022-10-07] MEDS: QUEtiapine 25 MG Tablet PO (20:35)
[2022-10-07] MEDS: Nystatin Powder 15gm Bottle 1 APPLIC TOPICAL (21:56)
[2022-10-08 03:01] VITALS: BP 137/68; PULSE 84; RESP 18; TEMP 37.1; O2SAT 95
[2022-10-08] MEDS: Clindamycin 600 MG/50 ML BAG 100 MG IV ×3 (05:53→21:27)
[2022-10-08] MEDS: Cholecalciferol (VIT D3) 25 MCG TABLET (1,000 UNITS) 50 MCG PO (07:46)
[2022-10-08] MEDS: Furosemide 40 MG Tablet PO (07:46)
[2022-10-08] MEDS: Enoxaparin 40 MG/0.4 ML Syringe SC ×2 (07:47→21:25)
[2022-10-08] MEDS: Calcium Carbonate 500 MG Tablet PO (07:47)
[2022-10-08] MEDS: Juven (unflavored) Packet 1 PACKET PO ×2 (07:47→16:58)
[2022-10-08] MEDS: Docusate Sodium 100 MG Capsule PO ×2 (07:47→21:25)
[2022-10-08] MEDS: Multivitamins,Ther W-Minerals Tablet 1 TABLET PO (07:47)
[2022-10-08] MEDS: Lisinopril 10 MG Tablet PO (07:47)
[2022-10-08] MEDS: Sertraline 50 MG Tablet PO (07:47)
[2022-10-08] MEDS: Pantoprazole Sodium 20 MG Tablet PO (07:48)
[2022-10-08] MEDS: Iron Polysaccharide Complex 150 MG CAPSULE PO (07:48)
[2022-10-08] MEDS: oxyCODONE 5 MG Tablet 10 MG PO ×3 (07:52→21:26)
[2022-10-08 08:23] VITALS: BP 131/74; PULSE 89; RESP 16; TEMP 37.1; O2SAT 96
[2022-10-08 12:38] VITALS: BP 116/68; PULSE 88; RESP 16; TEMP 36.9; O2SAT 95
[2022-10-08] MEDS: Nystatin Powder 15gm Bottle 1 APPLIC TOPICAL ×2 (13:36→21:25)
[2022-10-08] MEDS: DAKIN'S SOL HALF STRENGTH (=0.25%) 1 APPLIC TOPICAL (13:38)
[2022-10-08] MEDS: diazePAM 5 MG Tablet PO ×2 (13:41→21:26)
[2022-10-08 16:27] VITALS: BP 134/73; PULSE 78; RESP 16; TEMP 36.8; O2SAT 96
--- NOTE | 2022-10-08 20:31 | PN.SURG_ITS ---
Subjective Subjective Postop #3 Patient is resting comfortably. Tolerating the Dakin's dressing changes. Objective Data Objective Data Vital Signs: Vital Signs Temp Pulse Resp BP Pulse Ox O2 Del Method O2 Flow Rate 98.2 F 78 16 134/73 H 96 Room Air 2 10/08/22 16:27 10/08/22 16:27 10/08/22 16:27 10/08/22 16:27 10/08/22 16:27 10/08/22 16:27 10/05/22 12:40 Oxygen Flow Rate (L/min) 2 Oxygen Delivery Method Room Air Weight: 511 lb 7.559 oz Body Mass Index (BMI) 59.1 Intake & Output: Intake and Output for Last 24 Hours 10/06/22 10/07/22 10/08/22 23:59 23:59 23:59 Intake Total 1750 / 1750 2200 / 2700 2250 / 2250 Output Total 2500 / 2500 1700 / 2300 2024 / 2024 Balance -750 / -750 500 / 400 225 / 225 Lab / Micro Data Attestation: I reviewed the patient's lab results. Result Diagrams: 10/07/22 13:42 10/06/22 06:25 Physical Exam Narrative General - Alert and Oriented HEENT - PERRL. EOMI. Neck - Supple and nontender. Abdomen - Soft and nondistended. Extremities - Right thigh wound stable. No active bleeding. Tolerated Dakin's dressing change. Neuro - CN II-XII grossly intact. Psych - Normal mood and affect. Assessment & Plan Assessment/Plan (1) Excessive and redundant skin and subcutaneous tissue: (2) Intertrigo: (3) Excessive body weight loss: (4) History of bariatric surgery: (5) Acute postoperative anemia due to expected blood loss: (6) Morbid obesity: (7) Chronic acquired lymphedema: (8) Former smoker: PLAN: Plan Wound is stable. No active bleeding. Tolerating Dakin's dressing changes. Continue Clindamycin. Hgb 9.4. Has anemia due to expected blood loss. Had operative blood loss of 850 ml. Also has IV fluid dilution with I's/O's positive 2 liters. Will recheck Hgb. On Iron supplementation. Prealbumin 21.9. Encourage nutritional supplementation with protein to help the healing process. Has been approved to go to [facility] in [place]. Awaiting final disposition. Anticipate Monday.
[2022-10-08 21:12] VITALS: BP 153/75; PULSE 89; RESP 16; TEMP 37.4; O2SAT 96
[2022-10-08] MEDS: QUEtiapine 25 MG Tablet PO (21:25)
[2022-10-08] MEDS: Atorvastatin Calcium 40 MG Tablet PO (21:25)
[2022-10-09 03:18] VITALS: BP 127/70; PULSE 75; RESP 18; TEMP 36.8; O2SAT 99
[2022-10-09] MEDS: Clindamycin 600 MG/50 ML BAG 100 MG IV ×3 (06:10→20:00)
[2022-10-09] MEDS: Multivitamins,Ther W-Minerals Tablet 1 TABLET PO (07:39)
[2022-10-09] MEDS: Lisinopril 10 MG Tablet PO (07:39)
[2022-10-09] MEDS: Cholecalciferol (VIT D3) 25 MCG TABLET (1,000 UNITS) 50 MCG PO (07:40)
[2022-10-09] MEDS: Pantoprazole Sodium 20 MG Tablet PO (07:40)
[2022-10-09] MEDS: Docusate Sodium 100 MG Capsule PO ×2 (07:40→21:55)
[2022-10-09] MEDS: Furosemide 40 MG Tablet PO (07:41)
[2022-10-09] MEDS: Calcium Carbonate 500 MG Tablet PO (07:41)
[2022-10-09] MEDS: Enoxaparin 40 MG/0.4 ML Syringe SC ×2 (07:41→21:56)
[2022-10-09] MEDS: Iron Polysaccharide Complex 150 MG CAPSULE PO (07:41)
[2022-10-09] MEDS: Juven (unflavored) Packet 1 PACKET PO ×2 (07:41→16:21)
[2022-10-09] MEDS: Sertraline 50 MG Tablet PO (07:42)
[2022-10-09 09:00] VITALS: BP 131/71; PULSE 73; RESP 16; TEMP 36.8; O2SAT 97
[2022-10-09 11:19] VITALS: BP 142/82; PULSE 74; RESP 16; TEMP 37.1; O2SAT 95
[2022-10-09] MEDS: HYDROmorphone 1 MG/ML Syringe IV (12:10)
[2022-10-09] MEDS: 0.9% Saline Lock 10 ML Syringe IV ×2 (12:10→13:41)
[2022-10-09] MEDS: Nystatin Powder 15gm Bottle 1 APPLIC TOPICAL ×2 (12:41→21:56)
[2022-10-09] MEDS: DAKIN'S SOL HALF STRENGTH (=0.25%) 1 APPLIC TOPICAL (12:41)
[2022-10-09] MEDS: oxyCODONE 5 MG Tablet 10 MG PO ×2 (15:10→21:55)
[2022-10-09] MEDS: diazePAM 5 MG Tablet PO (15:15)
[2022-10-09] MEDS: Acetaminophen 325 MG Tablet 650 MG PO (15:17)
[2022-10-09 15:48] VITALS: BP 126/67; PULSE 74; RESP 16; TEMP 37.4; O2SAT 99
--- NOTE | 2022-10-09 20:59 | PCM.PN.SRG ---
Subjective Subjective Postop #4 Patient is resting comfortably. Tolerating the Dakin's dressing changes. Objective Data Objective Data Vital Signs: Vital Signs Temp Pulse Resp BP Pulse Ox O2 Del Method O2 Flow Rate 99.3 F H 74 16 126/67 H 99 Room Air 2 10/09/22 15:48 10/09/22 15:48 10/09/22 15:48 10/09/22 15:48 10/09/22 15:48 10/09/22 15:48 10/05/22 12:40 Oxygen Flow Rate (L/min) 2 Oxygen Delivery Method Room Air Weight: 511 lb 7.559 oz Body Mass Index (BMI) 59.1 Intake & Output: Intake and Output for Last 24 Hours 10/07/22 10/08/22 10/09/22 23:59 23:59 23:59 Intake Total 2200 / 2700 2300 / 2300 2350 / 2350 Output Total 1700 / 2300 2025 / 2025 2525 / 2525 Balance 500 / 400 275 / 275 -175 / -175 Lab / Micro Data Attestation: I reviewed the patient's lab results. Result Diagrams: 10/10/22 07:08 10/10/22 07:08 Physical Exam Narrative General - Alert and Oriented HEENT - PERRL. EOMI. Neck - Supple and nontender. Abdomen - Soft and nondistended. Extremities - Right thigh wound stable. No active bleeding. Tolerated Dakin's dressing change. Neuro - CN II-XII grossly intact. Psych - Normal mood and affect. Assessment & Plan Assessment/Plan (1) Excessive and redundant skin and subcutaneous tissue: (2) Intertrigo: (3) Excessive body weight loss: (4) History of bariatric surgery: (5) Acute postoperative anemia due to expected blood loss: (6) Morbid obesity: (7) Chronic acquired lymphedema: (8) Former smoker: PLAN: Plan Wound is stable.? No active bleeding.? Tolerating Dakin's dressing changes. Continue Clindamycin. Hgb 9.4.? Has anemia due to expected blood loss.? Had operative blood loss of 850 ml.? Also has IV fluid dilution with I's/O's positive 2.1 liters. On Iron supplementation. Will recheck Hgb in the morning. Prealbumin 21.9.? Encourage nutritional supplementation with protein to help the healing process. Has been approved to go to [facility] in [place].? Awaiting final disposition.? Anticipate Monday.
[2022-10-09 21:40] VITALS: BP 114/53; PULSE 79; RESP 18; TEMP 37.1; O2SAT 95
[2022-10-09] MEDS: QUEtiapine 25 MG Tablet PO (21:56)
[2022-10-09] MEDS: Atorvastatin Calcium 40 MG Tablet PO (21:56)
[2022-10-10 03:40] VITALS: BP 134/73; PULSE 74; RESP 16; TEMP 36.7; O2SAT 96
[2022-10-10] MEDS: Clindamycin 600 MG/50 ML BAG 100 MG IV ×2 (05:14→13:50)
[2022-10-10 07:28] LABS: Hematocrit 26.6 % (40-54); Hemoglobin 8.7 g/dL (13.0-16.5); Mean Corp Hgb Conc 32.7 g/dL (32-36); Mean Corpuscular Hgb 26.3 pg (27.0-32.0); Mean Corpuscular Volume 80.4 fL (80-94); Mean Platelet Vol. 9.6 fl (6.2-12.0); Platelet Count 255 K/mm3 (150-450); RBC Distribution Width CV 17.1 % (11.6-14.6); RBC Distribution Width SD 49.8 fl (35.1-43.9); Red Blood Count 3.31 M/mm3 (4.6-6.2); White Blood Count 10.4 K/mm3 (4.4-11.0)
[2022-10-10] MEDS: Juven (unflavored) Packet 1 PACKET PO (07:40)
[2022-10-10] MEDS: Multivitamins,Ther W-Minerals Tablet 1 TABLET PO (07:40)
[2022-10-10] MEDS: Iron Polysaccharide Complex 150 MG CAPSULE PO (07:40)
[2022-10-10] MEDS: Calcium Carbonate 500 MG Tablet PO (07:41)
[2022-10-10 07:52] LABS: Anion Gap 8 (5-15); BUN 18 mg/dL (7-18); BUN/Creat Ratio 18.8 RATIO (10-20); Calcium,Total 8.2 mg/dL (8.5-10.1); Chloride 102 mmol/L (98-107); Creatinine, Serum 0.96 mg/dL (0.70-1.30); EST Glomerular Filtration Rate 89 mL/min (>60); Est Glom Filt Rate - Afr Amer 108 mL/min (>60); Estimated Creatinine Clearance 121.66 ml/min; Glucose 118 mg/dL (74-106); Potassium 3.7 mmol/L (3.5-5.1); Sodium Level 138 mmol/L (136-145)
[2022-10-10 09:31] VITALS: BP 112/59; PULSE 76; RESP 16; TEMP 36.6; O2SAT 97
[2022-10-10] MEDS: oxyCODONE 5 MG Tablet 10 MG PO (09:46)
[2022-10-10] MEDS: Docusate Sodium 100 MG Capsule PO (09:48)
[2022-10-10] MEDS: Furosemide 40 MG Tablet PO (09:48)
[2022-10-10] MEDS: Nystatin Powder 15gm Bottle 1 APPLIC TOPICAL (09:48)
[2022-10-10] MEDS: Enoxaparin 40 MG/0.4 ML Syringe SC (09:48)
[2022-10-10] MEDS: Sertraline 50 MG Tablet PO (09:49)
[2022-10-10] MEDS: Lisinopril 10 MG Tablet PO (09:49)
[2022-10-10] MEDS: Pantoprazole Sodium 20 MG Tablet PO (09:49)
[2022-10-10] MEDS: Cholecalciferol (VIT D3) 25 MCG TABLET (1,000 UNITS) 50 MCG PO (09:49)
[2022-10-10] MEDS: HYDROmorphone 1 MG/ML Syringe IV (10:13)
[2022-10-10] MEDS: 0.9% Saline Lock 10 ML Syringe IV (10:14)
[2022-10-10] MEDS: DAKIN'S SOL HALF STRENGTH (=0.25%) 1 APPLIC TOPICAL (10:14)
--- NOTE | 2022-10-10 10:47 | WOUNDNOTE ---
wound photo: right medial thigh
--- NOTE | 2022-10-10 10:49 | WOUNDNOTE ---
wound photo: right medial thigh
--- NOTE | 2022-10-10 11:10 | CASEMGMT ---
Addendum entered by Garima Kyle 10/10/22 13:25: Faxed signed med list, narcotic rx and transfer summary to [facility] at this time, copies placed in chart. Addendum entered by Garima Kyle 10/10/22 11:26: Transportation set up for 3pm. Notified Genny at [facility]. LASHONDA ALVARADO in to pt room, pt is aware of transportation time and acceptance. Updated pt nurse to give report approx 2 hours ahead of time. Original Note: LASHONDA ALVARADO received confirmation that precert was obtained for pt. Genny liaison request transportation at 2pm. LASHONDA ALVARADO completed ambulance transport form and gave to press secretary with request for 2pm. Received phone and fax for report and dc instructions. , . Updated and SUKUMAR Cole that pt was approved and forms needed.
--- NOTE | 2022-10-10 11:13 | PCA ---
[facility] to transport patient, to [facility]. Scheduled milk pickup driver for 1500 via cot
--- NOTE | 2022-10-10 12:53 | PCM.TXEXTCAR ---
Diet Diet Order/Speech Therapy: 10/05/22 11:27 Diet: Regular - General Routine Orders/Code Status Carroll Catheter Size: 16 Change Carroll Catheter: Discontinue as needed Routine Lab Work: CBC and BMP Code Status: Full Code Wound(s) right medial thigh: Wound Type: Open Surgical Wound Dressing Change: Dakins moistened gauze Therapies Weight Bearing: Full weight bearing Extremity Affected:: Right Lower Problem/Diagnosis (1) Excessive and redundant skin and subcutaneous tissue: Status: Chronic Code(s): L98.7 - Excessive and redundant skin and subcutaneous tissue Comment: bilateral medial thighs (2) Intertrigo: Status: Chronic Code(s): L30.4 - Erythema intertrigo Comment: abdominal wall skin crease intertrigo and bilateral thigh intertrigo (3) Excessive body weight loss: Status: Chronic Code(s): R63.4 - Abnormal weight loss Comment: from weight loss surgery (about 250 lbs) (4) History of bariatric surgery: Status: Resolved Code(s): Z98.84 - Bariatric surgery status Comment: Bariatric Sleeve 05/27/19 (5) Acute postoperative anemia due to expected blood loss: Status: Acute Code(s): D62 - Acute posthemorrhagic anemia (6) Morbid obesity: Status: Chronic Code(s): E66.01 - Morbid (severe) obesity due to excess calories (7) Chronic acquired lymphedema: Status: Chronic Code(s): I89.0 - Lymphedema, not elsewhere classified (8) Former smoker: Status: Chronic Code(s): Z87.891 - Personal history of nicotine dependence Plan Pain is controlled. Wound is stable with no active bleeding. Having significant amount of serosanguineous drainage. Dakins 0.25% moistened gauze dressing changes daily and as needed. He did well with his dressing change today. Keep GRACIA wrap for compression. Will stop IV Clindamycin. Hgb 8.7 today. It initially was 11.6 on 10/05/22 but due to 850 ml blood loss from surgery along with IV fluid dilution. He is currently on iron supplementation. Continue to monitor labs. Prealbumin 21.9. Encourage increase in protein intake and fluid intake. He is complaining of itching under his pannus. He has a little erythema in the area. Will order Nystatin powder twice daily to the area. He is being transferred to [facility] today for management of his right thigh wound. He will [facility] up at [facility] after he is discharged from [facility]. Allergies/Procedures Done in Hospital Allergies Penicillins Allergy (Verified 10/05/22 06:25) Rxn as child, unknown dx as a child and does not know what his reaction was Type of Care/Length of Stay Estimated LOS: More Than 30 Days Type of Care Needed: LTAC Rehab Potential: Good Prognosis: Good Additional Orders/Day of Discharge Day of Discharge: 10/10/22 Follow Up Care Please Follow Up With: Kelsey Greene ELECTRICAL MECHANIC, ELECTRICAL MECHANIC-C When: at the wound healing center after discharge from [facility] Discharge Plan Admission Admit Date/Time: 10/05/22 11:24 Attending Provider: Xavi Kinney Primary Care Provider: Brian Johnson Discharge Orders/Prescriptions Prescriptions: New docusate sodium 100 mg Capsule 100 mg PO BID 30 Days Qty: 60 0RF David (with collagen) 7-7-1.5 gram Powder In Packet 1 packet PO BIDCM 30 Days Qty: 60 0RF HySept 0.25 % Solution 1 applic topical DAILY 30 Days Qty: 473 0RF Protocol: *Topical Application Instructions APPLICATION INSTRUCTIONS: to right medial thigh wound nystatin 100,000 unit/gram powder 1 applic topical BID Qty: 1 0RF oxycodone-acetaminophen [Percocet] 5-325 mg tablet 1 tab PO Q6H PRN (Reason: pain (scale score 7-10)) 7 Days Qty: 28 0RF Continued multivitamin,ep-iwgo-xfwbkwbq tablet 1 tab PO DAILY betamethasone dipropionate 0.05 % cream 1 applic TOPICAL DAILY PRN (Reason: skin irritation) Qty: 45 1RF hydrocortisone 2.5 % cream 1 applic topical BID PRN (Reason: rash) Qty: 454 1RF fluticasone propionate 50 mcg/actuation spray,suspension 2 spray INTRANASAL DAILY PRN (Reason: Allergies) Qty: 54.6 2RF Rx Instructions: administer into each nostril sertraline 50 mg tablet 50 mg PO DAILY Qty: 90 3RF acetaminophen 325 MG tablet 650 mg PO Q6H PRN PRN (Reason: Non-cardiac pain (mod-severe)) 0RF calcium carbonate 500 MG tablet 500 mg PO DAILY@0800 cholecalciferol (vitamin D3) 2,000 UNIT capsule 2,000 unit PO DAILY polysaccharide iron complex 150 MG capsule 150 mg PO DAILYCM Qty: 30 6RF hydrocortisone [Cortisone (hydrocortisone)] 1 % lotion 1 applic TOPICAL BID PRN (Reason: skin irritation) Qty: 120 1RF lisinopril 10 mg tablet 10 mg PO DAILY Qty: 90 3RF atorvastatin 40 mg tablet 40 mg PO QHS Qty: 90 1RF omeprazole 20 mg capsule,delayed release(DR/EC) See Rx Instructions .ROUTE .COMPLEX Qty: 90 3RF Dose Instruction: take 1 capsule by mouth once daily Rx Instructions: take 1 capsule by mouth once daily furosemide 40 mg tablet 40 mg PO DAILY Qty: 90 0RF quetiapine [Seroquel] 25 mg tablet 25 mg PO QHS Qty: 90 1RF Discontinued miconazole nitrate [Miconazorb AF] 2 % powder See Rx Instructions .ROUTE .COMPLEX Qty: 71 0RF Dose Instruction: apply topically to affected area twice a day Rx Instructions: apply topically to affected area twice a day Referrals / Follow Up: Brian Johnson MD [Primary Care Provider] -
[2022-10-10 13:54] VITALS: BP 124/63; PULSE 76; RESP 16; TEMP 36.8; O2SAT 96
--- NOTE | 2022-10-10 16:49 | DS.PCM_ITS ---
Providers Date of Admission: 10/05/22 Date of Discharge: 10/10/22 Primary Care Physician: Dr. 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: Chronic Code(s): L98.7 - Excessive and redundant skin and subcutaneous tissue (2) Intertrigo: Status: Chronic Code(s): L30.4 - Erythema intertrigo (3) Excessive body weight loss: Status: Chronic Code(s): R63.4 - Abnormal weight loss (4) History of bariatric surgery: Status: Resolved Code(s): Z98.84 - Bariatric surgery status (5) Acute postoperative anemia due to expected blood loss: Status: Acute Code(s): D62 - Acute posthemorrhagic anemia (6) Morbid obesity: Status: Chronic Code(s): E66.01 - Morbid (severe) obesity due to excess calories (7) Chronic acquired lymphedema: Status: Chronic Code(s): I89.0 - Lymphedema, not elsewhere classified (8) Former smoker: Status: Chronic Code(s): Z87.891 - Personal history of nicotine dependence Medications at Discharge Home Medications acetaminophen 325 mg tablet 650 mg PO Q6H PRN PRN Non-cardiac pain (mod-severe) 06/04/19 calcium carbonate 200 mg calcium (500 mg) chewable tablet 500 mg PO DAILY@0800 07/23/19 cholecalciferol (vitamin D3) 50 mcg (2,000 unit) capsule 2,000 unit PO DAILY 07/23/19 multivitamin,yk-ghpi-ivyfooge (Complete Multivitamin tablet) 1 tab PO DAILY 04/29/20 polysaccharide iron complex 150 mg iron capsule 150 mg PO DAILYCM #30 caps 09/24/20 betamethasone dipropionate 0.05 % topical cream 1 applic topical DAILY PRN skin irritation #45 grams 04/21/21 hydrocortisone 1 % lotion (Cortisone (hydrocortisone)) 1 applic topical BID PRN skin irritation #120 mL 04/23/21 hydrocortisone 2.5 % topical cream 1 applic topical BID PRN rash #454 grams 05/27/21 lisinopril 10 mg tablet 10 mg PO DAILY blood pressure #90 tabs 08/23/21 atorvastatin 40 mg tablet 40 mg PO QHS cholesterol lowering #90 tabs 11/17/21 fluticasone propionate 50 mcg/actuation nasal spray,suspension 2 spray intranasal DAILY PRN Allergies #54.6 mL 02/16/22 omeprazole 20 mg capsule,delayed release See Rx Instructions .Route .COMPLEX #90 caps 02/24/22 sertraline 50 mg tablet 50 mg PO DAILY #90 tabs 03/04/22 furosemide 40 mg tablet 40 mg PO DAILY #90 tabs 07/04/22 quetiapine 25 mg tablet (Seroquel) 25 mg PO QHS #90 tabs 08/18/22 arginine 7 gram-glutam 7 gram-CaHMB 1.5 yudb-vkxpe-lz-min oral pwd pkt (David (with collagen)) 1 packet PO BIDCM 30 days #60 ea 10/10/22 docusate sodium 100 mg capsule 100 mg PO BID 30 days #60 caps 10/10/22 nystatin 100,000 unit/gram topical powder 1 applic topical BID #1 BOTTLE 10/10/22 oxycodone-acetaminophen 5 mg-325 mg tablet (Percocet) 1 tab PO Q6H PRN pain (scale score 7-10) 7 days #28 tabs 10/10/22 sodium hypochlorite 0.25 % solution (HySept) 1 applic topical DAILY 30 days #473 mL 10/10/22 Hospital Course Operations - (10/05/22 - ) Procedures None Summary of Care Provided Minutes Spent on Discharge: 35 Hospital Course: 47 year old man presented in August, with areas of redundant skin and subcutaneous tissue in his bilateral medial thighs and abdominal panniculus with associated panniculitis.? There is abdominal wall skin crease intertrigo and bilateral medial thigh intertrigo for which he uses powders for relief.? This excess skin and subcutaneous tissue was the result of bariatric surgery done in [place] in May,.? He lost about 250 lbs and his current weight is about 440 lbs.? He has a history of lower extremity lymphedema resulting from the extreme body weight and has persistent dependent edema in his medial thighs which aggravates his symptomatology.? ? He denies trauma.? He denies fever. Both areas bother him but the medial thighs are his initial priority as he has trouble with ambulating.? We have received medical approval from his insurance company for his thigh surgery.? On September 22, he underwent excision redundant skin and subcutaneous tissue left medial and posterior thigh with dermolipectomy.? The left thigh wound healed slowly. ? He comes in today to dis cuss surgery on his right thigh and to answer any preop questions and to sign the office consent.? He had preop labs drawn on 09/29/22.? Hgb was 12.9.? Potassium was 4.0.? BUN/Creatinine was 18/0.94. Total Bilirubin was 0.7.? AST was 13.? ALT was 28.? Alkaline Phosphatase was 81.? Uric Acid was 6.4.? Glucose was 104.? HgbA1c was 4.8.? Calcium was 8.7.? Ferritin was 4.8.? Total protein was 7.4.? Albumin was 3.4.? Prealbumin was 26.1.? Vitamin B12 was 572.? Folate was7.60.? PT was? 13.4 (INR was 1.1).? PTT was 36.3.? Vitamin A is pending.? Vitamin D was 16.4. He was taken to the operating room on 10/05/22 where he underwent surgical preparation right medial and posterior thigh with excision redundant skin and subcutaneous tissue with radical dermolipectomy. He tolerated the procedure well. He tolerated Dakin's dressing changes daily. After some healing has occurred, then we can try to use the VAC. Initially there is too much drainage for the canisters as they would need to be changed several times per day. He was afebrile during his hospital stay. He was treated perioperatively with Clindamycin. His Hgb started at 11.6 and drifted down to 8.7 at discharge. He had anemia due to expected blood loss. There was 850 ml operative blood loss. There was also IV fluid dilution as the I's/O's were positive about 2.1 liters. He was started on Iron supplementation. Will recheck a Hgb after discharge in a week. Anticipate increased metabolic demands from the size of the wound. Prealbumin was 21.9. Encouraged nutritional supplementation with protein to help the healing process. He was evaluated for placement after discharge. He was approved to go to [facility] in [place]. On the 5th postoperative day, the logistics were in order and the patient was discharged to the LTAC in satisfactory condition. He will also followup at the Wound Center. Physical Exam Narrative General - Alert and Oriented HEENT - PERRL. EOMI. Neck - Supple and nontender. Abdomen - Soft and nondistended. Extremities - Right thigh wound is stable. No active bleeding noted. Tolerated Dakin's dressing change. Neuro - CN II-XII grossly intact. Psych - Normal mood and affect. Weight / BMI Weight Weight: 511 lb 7.559 oz Body Mass Index (BMI) 59.1 ABG / Lab / Microbiology Data Attestation: I reviewed the patient's lab results. Results Narrative: Hgb is 8.7. Combination of operative blood loss (850 ml) and IV fluid dilution. He is taking Iron supplementation. Will repeat a Hgb after discharge in a we ek. Result Diagrams: 10/10/22 07:08 10/10/22 07:08 Laboratory: Laboratory Results - last 24 hr 10/10/22 07:08: WBC 10.4, RBC 3.31 L, Hgb 8.7 L, Hct 26.6 L, MCV 80.4, MCH 26.3 L, MCHC 32.7, RDW Std Deviation 49.8 H, RDW Coeff of Alee 17.1 H, Plt Count 255, MPV 9.6 10/10/22 07:08: Sodium 138, Potassium 3.7, Chloride 102, Carbon Dioxide 28.0, Anion Gap 8, BUN 18, Creatinine 0.96, Estim Creat Clear Calc 121.66, Est GFR (MDRD) Af Amer 108, Est GFR (MDRD) Non-Af 89, BUN/Creatinine Ratio 18.8, Glucose 118 H, Calcium 8.2 L Microbiology: Microbiology 10/10/22 13:00 Nasal Secretion SARS-CoV-2 Antigen (Rapid) - Final D/C Instructions Discharge Diet: No restrictions and - (encourage nutritional supplementation with protein to help the healing process.) Discharge Activity: Return to Normal Activity and May Shower (at the time of the Dakin's dressing change.) May shower in (days): 1 (may shower at the time of the Dakin's dressing change.) May resume sexual activity in: No Restrictions Weight Bearing Status: Weight bearing as tolerated Keep extremity elevated above heart level: Right Leg Call your doctor if your incision/area has: Continuous Slow Oozing, Sudden Incr eased Bleeding, Increased Pain/ Swelling, Increased Redness, Foul Smelling Discharge and Swelling at the incision site Call your doctor if you observe: Fever of 101 or Higher, Coldness, Increased Pain, Shortness of breath, Chest pain, Calf discomfort and Uncontrolled pain Change Dressing in: 1 day (Dakin's dressing changes daily.) Cleanse incision/area with: Soap & Water (may cleanse the wound with soap and water at the time of the Dakin's dressing change.) Catheter: Carroll to leg bag (may discontinue at discharge from [facility].) Pending Tests Upon Discharge: Will recheck a CBC after discharge in a week. Please Follow Up With: Kelsey Greene BENDING ROLL OPERATOR, BENDING ROLL OPERATOR-C When: Wound Center in one week. Call [phone] for appt. Meaningful Use Info Meaningful Use Diagnoses (Choose all that apply): None applicable Discharge Plan Admission Admit Date/Time: 10/05/22 11:24 Primary Reason for Your Visit: radical dermolipectomy right medial thigh Attending Provider: Xavi Kinney Primary Care Provider: Brian Johnson Discharge Orders/Prescriptions Prescriptions: New docusate sodium 100 mg Capsule 100 mg PO BID 30 Days Qty: 60 0RF David (with collagen) 7-7-1.5 gram Powder In Packet 1 packet PO BIDCM 30 Days Qty: 60 0RF HySept 0.25 % Solution 1 applic topical DAILY 30 Days Qty: 473 0RF Protocol: *Topical Application Instructions APPLICATION INSTRUCTIONS: to right medial thigh wound nystatin 100,000 unit/gram powder 1 applic topical BID Qty: 1 0RF oxycodone-acetaminophen [Percocet] 5-325 mg tablet 1 tab PO Q6H PRN (Reason: pain (scale score 7-10)) 7 Days Qty: 28 0RF Continued multivitamin,jw-nwld-qpovsmid tablet 1 tab PO DAILY betamethasone dipropionate 0.05 % cream 1 applic TOPICAL DAILY PRN (Reason: skin irritation) Qty: 45 1RF hydrocortisone 2.5 % cream 1 applic topical BID PRN (Reason: rash) Qty: 454 1RF fluticasone propionate 50 mcg/actuation spray,suspension 2 spray INTRANASAL DAILY PRN (Reason: Allergies) Qty: 54.6 2RF Rx Instructions: administer into each nostril sertraline 50 mg tablet 50 mg PO DAILY Qty: 90 3RF acetaminophen 325 MG tablet 650 mg PO Q6H PRN PRN (Reason: Non-cardiac pain (mod-severe)) 0RF calcium carbonate 500 MG tablet 500 mg PO DAILY@0800 cholecalciferol (vitamin D3) 2,000 UNIT capsule 2,000 unit PO DAILY polysaccharide iron complex 150 MG capsule 150 mg PO DAILYCM Qty: 30 6RF hydrocortisone [Cortisone (hydrocortisone)] 1 % lotion 1 applic TOPICAL BID PRN (Reason: skin irritation) Qty: 120 1RF lisinopril 10 mg tablet 10 mg PO DAILY Qty: 90 3RF atorvastatin 40 mg tablet 40 mg PO QHS Qty: 90 1RF omeprazole 20 mg capsule,delayed release(DR/EC) See Rx Instructions .ROUTE .COMPLEX Qty: 90 3RF Dose Instruction: take 1 capsule by mouth once daily Rx Instructions: take 1 capsule by mouth once daily furosemide 40 mg tablet 40 mg PO DAILY Qty: 90 0RF quetiapine [Seroquel] 25 mg tablet 25 mg PO QHS Qty: 90 1RF Discontinued miconazole nitrate [Miconazorb AF] 2 % powder See Rx Instructions .ROUTE .COMPLEX Qty: 71 0RF Dose Instruction: apply topically to affected area twice a day Rx Instructions: apply topically to affected area twice a day Referrals / Follow Up: Brian Johnson MD [Primary Care Provider] - Xavi Kinney MD [Med Staff - Active Staff] - (followup at wound center in one week to see DONALD Yeboah. Call [phone] for appt.) Disposition Disposition (needs filled in before D/C Order can be placed): [facility]
== END 2022-10-10 16:45 | disposition short-term general hospital (02) ==
LOC: SDC 17:02 → MS3 17:02
PROVIDERS: Nurse Practitioner Family; Admitting Provider Surgery; PCP Internal Medicine; Referring Provider Surgery; Visit Provider Surgery
PROC: (CPT 15832; principal; 2022-10-05 07:15)
DX: L98.7 Excessive and redundant skin and subcutaneous tissue (principal); J43.9 Emphysema, unspecified; I50.32 Chronic diastolic (congestive) heart failure; I11.0 Hypertensive heart disease with heart failure; I73.9 Peripheral vascular disease, unspecified; E66.01 Morbid (severe) obesity due to excess calories; Z68.43 Body mass index [BMI] 50.0-59.9, adult; Z87.891 Personal history of nicotine dependence; I89.0 Lymphedema, not elsewhere classified; E78.5 Hyperlipidemia, unspecified; Z98.84 Bariatric surgery status; Z79.899 Other long term (current) drug therapy; F41.8 Other specified anxiety disorders; Z86.711 Personal history of pulmonary embolism; E65 Localized adiposity; L30.4 Erythema intertrigo; G47.33 Obstructive sleep apnea (adult) (pediatric)
CPT/HCPCS: 15832; 00400; J7120; 36415; 80048; 84134; 85027; 86850; 86900; 86901; 87426; 88305; 88341; 88342; 94668; 96365; 96366; 96372; 96375; 96376; 99221; J7040; A4216; G0378; J2405

== ENCOUNTER 2022-11-07 10:30 | Outpatient (RCR) | payer MEDICAID, SELFPAY ==
[2022-07-12 00:22] VITALS: BP 148/105; PULSE 74; RESP 24; TEMP 35.9; BMI 54.5
[2022-11-02 09:53] VITALS: BP 143/87; PULSE 104; RESP 18; TEMP 36.6; BMI 57.7
--- NOTE | 2022-11-02 11:22 | PN.PCM_ITS ---
History of Present Illness Date of Service: 11/02/22 Chief Complaint: Nonhealing ulcer left medial thigh. History of Wound: 47 year old man presents with areas of redundant skin and subcutaneous tissue in his bilateral medial thighs and abdominal panniculus with associated panniculitis. There is abdominal wall skin crease intertrigo and bilateral medial thigh intertrigo for which he uses powders for relief. This excess skin and subcutaneous tissue was the result of bariatric surgery done in [place] in May,. He lost about 250 lbs and his current weight is about 440 lbs. He has a history of lower extremity lymphedema resulting from the extreme body weight and has persistent dependent edema in his medial thighs which aggravates his symptomatology. He denies trauma. He denies fever. Both areas bother him but the medial thighs are his initial priority as he has trouble with ambulating. We received medical approval from his insurance company for his thigh surgery. Surgery 09/22/20 - Excision redundant skin and subcutaneous tissue left medial and posterior thigh with dermolipectomy. Surgery 10/05/22 - Surgical preparation right medial and posterior thigh with excision redundant skin and subcutaneous tissue with radical dermolipectomy. He went to [facility] for almost a month, he had a wound VAC while he was at [facility]. Hgb 8.7 on . Repeat Hgb 8.8 on 10/25/22 at [facility]. On iron supplementation but with his history of gastric bypass, that may impact his abso rption of the iron. Will continue to monitor. Wound care - Silver alginate covered with ABDs daily and as needed. Today he denies fever and chills and states his appetite is good. Progress of Wound: Right medial leg ulcer is pink. Increased slough since there has not been any debridement since his surgery. Pain is controlled with pain meds. He is glad to be home from [facility], he was discharged 2 days ago. Objective Data Objective Data Vital Signs: Vital Signs Temp Pulse Resp BP 97.8 F 104 H 18 143/87 H 11/02/22 09:53 11/02/22 09:53 11/02/22 09:53 11/02/22 09:53 Weight: 500 lb Body Mass Index (BMI) 57.7 Charges/Coding Procedures Integumentary 111xxx-113xx: 20583 Global Visit Debridement Note Debridement Note Wound debrided: Right medial thigh ulcer Laterality: Right Type of Debridement: Excisional debridement Anesthesia Used: 5% Lidocaine Gel Depth: Down to and including healthy tissue and in the subcutaneous layer Percentage of wound debrided: 100 Instrument Used: 7mm curette Tissue Removed: Devitalized tissue and slough Severity: Fat Layer Exposed Amount of bleeding with debridement: Moderate Bleeding Controlled with: Pressure and Compression and gauze Patient tolerated procedure: Patient tolerated procedure well Post-Debridement Measurements and Additional Note: Post-Debridement Measurements/Treatment - Nurse 1 - General Ulcer Assessment Start: 11/02/22 09:53 Freq: Status: Active Protocol: ACOSTA.NomikuRYANT Activity Type Activity Date Activity User E-sign Co-sign Detail Recorded Client Recorded Date Recorded By Document 11/02/22 09:53 RB [id number] 11/02/22 10:05 RB Edit Result 11/02/22 09:53 RB (1) [id number] 11/02/22 10:06 RB (1) Pulse Rate (60-100) => 104 H Blood Pressure (90/60-120/80) => 143/87 H Blood Pressure Mean (mm Hg) => 105 11/02/22 09:53 - Today's Visit Information Type of service Initial Visit Arrival Mode Ambulatory Transfer Assistance None Patient Identification Verified (Name & Yes ) Patient Requires Transmission-Based No Precautions Height and Weight Height 6 ft 6 in Weight 500 lb Weight in Pounds 500.0 lbs Body Mass Index (BMI) 57.7 BMI Classification Obese BSA - Varghese 3.33 Vital Signs Temperature (97.8 F-99.1 F) 97.8 F Temperature Source Temporal Pulse Rate (60-100) 104 H Pulse Location Monitor Respiratory Rate (12-18) 18 Respiratory rate source Observation Blood Pressure (90/60-120/80) 143/87 H Blood Pressure Mean (mm Hg) 105 Source Monitor Position Sitting Blood Pressure Location Left Arm History Since Last Visit- (Skip if this is Patient's initial visit) Have you changed medications since your No last visit? Any new allergies or adverse reactions No Had a fall/change in ADL's that may No increase risk of falls Signs or symptoms of abuse and/or No neglect since last visit Have you been in the hospital since your No last visit? Has dressing in place as prescribed Yes Has compression in place as prescribed No Has offloadiing in place as prescribed No Experienced any changes in pain level or No management Pain Scale: 0-10 Numeric Is Patient Pain Free? Yes R leg -Description Sharp -Intensity 7 -Duration (hours) Acute -Pain Behavior Guarding -Pain Aggravating Factors ADL's,Exercise/ Activity -Alleviating Factors/Interventions Medication -Effectiveness of Alleviating Factor/ Moderately Intervention effective WC - Nurse 1 - General Ulcer Measurement Start: 11/02/22 09:53 Freq: Status: Active Protocol: Activity Type Activity Date Activity User E-sign Co-sign Detail Recorded Client Recorded Date Recorded By Document 11/02/22 09:53 RB [id number] 11/02/22 10:05 RB 11/02/22 09:53 Wound Center Nurse 1 10. R medial thigh -Combined with other wound No -Current Size (cm) - Length 28 -Current Size (cm) - Width 21.5 -Current Size (cm) - Depth 1 -Total Square Cm 602.0 -Photo Taken Yes -Tunneling No -Undermining/Tunneling No -Circular Undermining No -Exudate Amt Large -Exudate Type Serosanguineous -Wound Margin Thickened & Rolled Under -Granulation Amt Medium (34-66%) -Granulation Quality [place],Red -Slough/Fibrin Yes -Necrosis Amt Medium (34-66%) -Necrotic Tissue Type Adherent Slough -Structure Exposed N/A -Texture (Josephine-wound Skin Appearance) Assessed, Scarring -Moisture (Josephine-wound Skin Appearance) Assessed -Color (Josephine-wound Skin Appearance) Assessed -Temperature (Josephine-wound Skin No Abnormality Appearance) (Pt Warm) -Tenderness on Palpation (Josephine-wound No Skin Appearance) -Ulcer Cleansing Wound Cleanser -Foul Odor after Cleansing No -Anesthetic Used 4% Lidocaine Solution WC - Nurse 2 - General Ulcer CM Notes Start: 11/02/22 09:53 Freq: Status: Active Protocol: Activity Type Activity Date Activity User E-sign Co-sign Detail Recorded Client Recorded Date Recorded By Document 11/02/22 10:23 JOHN [id number] 11/02/22 10:30 JOHN 11/02/22 10:23 Wound Center Nurse 2 -Time 10:28 -Correct Patient Yes -Correct Side, Site, Position Yes -Correct Procedure Yes -Procedure Performed Yes -Type of Procedure Debridement -Clinical Debridement Muscle / Fascia -Tissue Removed Muscle,Fascia -Post Debridement (cm) - Length 21.0 -Post Debridement (cm) - Width 25.5 -Post Debridement (cm) - Depth 1.0 -Total Square (Post) (cm) 535.50 -Area of Debridement (cm) - Length 21.0 -Area of Debridement (cm) - Width 25.5 -Total Square (Area) (cm) 535.50 -Tunneling No -Undermining/Tunneling No -Circular Undermining No -Wound/Ulcer Outcome Not Healed -Foul Odor after Cleansing No -Bioengineered Tissue No -Bleeding Controlled with Pressure -Treatment Response Procedure Tolerated Well -Offloading No -Debridement - Muscle / Fascia, 1st Yes 20sq cm -Debridement, Muscle/Fascia, ea addt'l 26 20sq cm or part thereof Pain Scale: 0-10 Numeric Is Patient Pain Free? Yes Assessment/Plan Assessment/Plan (1) Nonhealing ulcer of right lower extremity with fat layer exposed: CODE(S): L97.912 - Non-pressure chronic ulcer of unspecified part of right lower leg with fat layer exposed (2) Acute postoperative anemia due to expected blood loss: CODE(S): D62 - Acute posthemorrhagic anemia (3) Edema of both lower extremities: CODE(S): R60.0 - Localized edema (4) Chronic acquired lymphedema: CODE(S): I89.0 - Lymphedema, not elsewhere classified (5) Excessive and redundant skin and subcutaneous tissue: CODE(S): L98.7 - Excessive and redundant skin and subcutaneous tissue (6) Intertrigo: CODE(S): L30.4 - Erythema intertrigo (7) Morbid obesity: CODE(S): E66.01 - Morbid (severe) obesity due to excess calories (8) Excessive body weight loss: CODE(S): R63.4 - Abnormal weight loss (9) History of bariatric surgery: CODE(S): Z98.84 - Bariatric surgery status (10) History of excision of mass: CODE(S): Z98.890 - Other specified postprocedural states (11) Former smoker: CODE(S): Z87.891 - Personal history of nicotine dependence (12) Other acute postprocedural pain: CODE(S): G89.18 - Other acute postprocedural pain PLAN: Plan Patient evaluated at the wound healing center today. Wound care - Right medial leg ulcer sliver alginate topped with ABDs daily and as needed after washing ulcer and josephine wound with soap and water. He wears an GRACIA wrap or abdominal binder around his right thigh for compression. Hgb 8.8 on 10/25/22 Will recheck in 1-2 weeks. He is on iron supplementation. Encouraged increase in protein intake to help with wound healing. Follow up 1 week.
[2022-11-07 10:26] VITALS: BP 156/108; PULSE 108; RESP 22; TEMP 35.8; BMI 57.7
--- NOTE | 2022-11-07 14:28 | PCM.WC.PN ---
History of Present Illness Date of Service: 11/07/22 Chief Complaint: Nonhealing ulcer left medial thigh. History of Wound: 47 year old man presents with areas of redundant skin and subcutaneous tissue in his bilateral medial thighs and abdominal panniculus with associated panniculitis. There is abdominal wall skin crease intertrigo and bilateral medial thigh intertrigo for which he uses powders for relief. This excess skin and subcutaneous tissue was the result of bariatric surgery done in [place] in May,. He lost about 250 lbs and his current weight is about 440 lbs. He has a history of lower extremity lymphedema resulting from the extreme body weight and has persistent dependent edema in his medial thighs which aggravates his symptomatology. He denies trauma. He denies fever. Both areas bother him but the medial thighs are his initial priority as he has trouble with ambulating. We received medical approval from his insurance company for his thigh surgery. Surgery 09/22/20 - Excision redundant skin and subcutaneous tissue left medial and posterior thigh with dermolipectomy. Surgery 10/05/22 - Surgical preparation right medial and posterior thigh with excision redundant skin and subcutaneous tissue with radical dermolipectomy. He went to [facility] for almost a month, he had a wound VAC while he was at [facility]. He came home 10/31/22. Hgb 8.7 on . Repeat Hgb 8.8 on 10/25/22 at [facility]. On iron supplementation but with his history of gastric bypass, that may impact his absorption of the iron. Will continue to monitor. Wound care - Silver alginate covered with ABDs daily and as needed. Today he denies fever and chills and states his appetite is good. Progress of Wound: Right medial leg ulcer is pink. Pain is controlled with pain meds. Patient is frustrated because he has increased swelling of his right leg, knee and distal thigh. He has a history of lymphedema and it is much worse over the past several days. Objective Data Objective Data Vital Signs: Vital Signs Temp Pulse Resp BP 96.4 F L 108 H 22 H 156/108 H 11/07/22 10:26 11/07/22 10:26 11/07/22 10:26 11/07/22 10:26 Weight: 500 lb Body Mass Index (BMI) 57.7 Charges/Coding Procedures Integumentary 111xxx-113xx: 84977 Global Visit Debridement Note Debridement Note Wound debrided: Right medial thigh ulcer Laterality: Right Type of Debridement: Excisional debridement Anesthesia Used: 5% Lidocaine Gel Depth: Down to and including healthy tissue and in the subcutaneous layer Percentage of wound debrided: 100 Instrument Used: 7mm curette Tissue Removed: Devitalized tissue and slough Severity: Fat Layer Exposed Amount of bleeding with debridement: Moderate Bleeding Controlled with: Pressure and Compression and gauze Patient tolerated procedure: Patient tolerated procedure well Post-Debridement Measurements and Additional Note: Post-Debridement Measurements/Treatment - Nurse 1 - General Ulcer Assessment Start: 11/02/22 09:53 Freq: Status: Active Protocol: ACOSTA.[facility] News[facility]ISCILLA Activity Type Activity Date Activity User E-sign Co-sign Detail Recorded Client Recorded Date Recorded By Document 11/02/22 09:53 RB [id number] 11/02/22 10:05 RB Edit Result 11/02/22 09:53 RB (1) [id number] 11/02/22 10:06 RB Document 11/07/22 10:26 DL [id number] 11/07/22 10:41 DL (1) Pulse Rate (60-100) => 104 H Blood Pressure (90/60-120/80) => 143/87 H Blood Pressure Mean (mm Hg) => 105 11/02/22 11/07/22 09:53 10:26 - Today's Visit Information Type of service Initial Visit 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/LEAD SCIENTIST ) Arrival Mode Ambulatory Ambulatory Transfer Assistance None None Patient Identification Verified (Name & Yes Yes ) Patient Requires Transmission-Based No Precautions Height and Weight Height 6 ft 6 in Weight 500 lb Weight in Pounds 500.0 lbs Body Mass Index (BMI) 57.7 57.7 BMI Classification Obese Obese BSA - Varghese 3.33 Vital Signs Temperature (97.8 F-99.1 F) 97.8 F 96.4 F L Temperature Source Temporal Temporal Pulse Rate (60-100) 104 H 108 H Pulse Location Monitor Monitor Respiratory Rate (12-18) 18 22 H Respiratory rate source Observation Observation Blood Pressure (90/60-120/80) 143/87 H 156/108 H Blood Pressure Mean (mm Hg) 105 124 Source Monitor Monitor Position Sitting Blood Pressure Location Left Arm History Since Last Visit- (Skip if this is Patient's initial visit) Have you changed medications since your No No last visit? Any new allergies or adverse reactions No No Had a fall/change in ADL's that may No No increase risk of falls Signs or symptoms of abuse and/or No No neglect since last visit Have you been in the hospital since your No No last visit? Has dressing in place as prescribed Yes Yes Has compression in place as prescribed No Yes Has offloadiing in place as prescribed No N/A Experienced any changes in pain level or No No management Pain Scale: 0-10 Numeric Is Patient Pain Free? Yes Yes R leg -Description Sharp -Intensity 7 -Duration (hours) Acute -Pain Behavior Guarding -Pain Aggravating Factors ADL's,Exercise/ Activity -Alleviating Factors/Interventions Medication -Effectiveness of Alleviating Factor/ Moderately Intervention effective WC - Nurse 1 - General Ulcer Measurement Start: 11/02/22 09:53 Freq: Status: Active Protocol: Activity Type Activity Date Activity User E-sign Co-sign Detail Recorded Client Recorded Date Recorded By Document 11/02/22 09:53 RB [id number] 11/02/22 10:05 RB Document 11/07/22 10:26 DL [id number] 11/07/22 10:41 DL 11/02/22 11/07/22 09:53 10:26 Wound Center Nurse 1 10. R medial thigh -Combined with other wound No -Current Size (cm) - Length 28 20.5 -Current Size (cm) - Width 21.5 25 -Current Size (cm) - Depth 1 1 -Total Square Cm 602.0 512.5 -Photo Taken Yes Yes -Tunneling No -Undermining/Tunneling No -Circular Undermining No -Exudate Amt Large Large -Exudate Type Serosanguineous Serosanguineous -Wound Margin Thickened & Distinct, Rolled Under Outline Attached -Granulation Amt Medium (34-66%) Small (1-33%) -Granulation Quality [place],Red [place] -Slough/Fibrin Yes -Necrosis Amt Medium (34-66%) Large (67-100%) -Necrotic Tissue Type Adherent Slough Adherent Slough -Structure Exposed N/A N/A -Texture (Josephine-wound Skin Appearance) Assessed, Scarring Scarring -Moisture (Josephine-wound Skin Appearance) Assessed No Abnormality -Color (Josephine-wound Skin Appearance) Assessed No Abnormality -Temperature (Josephine-wound Skin No Abnormality No Abnormality Appearance) (Pt Warm) (Pt Warm) -Tenderness on Palpation (Josephine-wound No Yes Skin Appearance) -Ulcer Cleansing Wound Cleanser Not Cleansed -Foul Odor after Cleansing No No -Anesthetic Used 4% Lidocaine 4% Lidocaine Solution Solution ACOSTA - Nurse 2 - General Ulcer CM Notes Start: 11/02/22 09:53 Freq: Status: Active Protocol: Activity Type Activity Date Activity User E-sign Co-sign Detail Recorded Client Recorded Date Recorded By Document 11/02/22 10:23 [id number] 11/02/22 10:30 Document 11/07/22 11:25 [id number] 11/07/22 11:29 11/02/22 11/07/22 10:23 11:25 Wound Center Nurse 2 10. R medial thigh -Time 10:28 11:25 -Correct Patient Yes Yes -Correct Side, Site, Position Yes Yes -Correct Procedure Yes Yes -Procedure Performed Yes Yes -Type of Procedure Debridement Debridement -Clinical Debridement Muscle / Fascia Muscle / Fascia -Tissue Removed Muscle,Fascia Muscle,Fascia -Post Debridement (cm) - Length 21.0 19 -Post Debridement (cm) - Width 25.5 23.5 -Post Debridement (cm) - Depth 1.0 1.0 -Total Square (Post) (cm) 535.50 446.5 -Area of Debridement (cm) - Length 21.0 19 -Area of Debridement (cm) - Width 25.5 23.5 -Total Square (Area) (cm) 535.50 446.5 -Tunneling No No -Undermining/Tunneling No No -Circular Undermining No No -Wound/Ulcer Outcome Not Healed Not Healed -Ulcer Cleansing Rinsed/ Irrigated with Saline -Foul Odor after Cleansing No No -Bioengineered Tissue No No -Bleeding Controlled with Pressure Pressure -Treatment Response Procedure Procedure Tolerated Well Tolerated Well -Offloading No No -Debridement - Muscle / Fascia, 1st Yes Yes 20sq cm -Debridement, Muscle/Fascia, ea addt'l 26 22 20sq cm or part thereof Pain Scale: 0-10 Numeric Is Patient Pain Free? Yes Yes ACOSTA - Nurse 3 - General Ulcer D/C NN Start: 02/22/23 09:53 Freq: Status: Active Protocol: Activity Type Activity Date Activity User E-sign Co-sign Detail Recorded Client Recorded Date Recorded By Document 11/02/22 12:16 DL [id number] 11/02/22 12:17 DL Document 11/07/22 11:[address] [facility] [id number] 11/07/22 11:[address] [facility] 11/02/22 11/07/22 12:16 11:39 Wound Care Center Nurse 3 10. R medial thigh -Ulcer Cleansing Soap and Water Rinsed/ Irrigated with Saline -Foul Odor after Cleansing No No -Primary Dressing Applied Silvercel Silvercel -Other Dressing kerlix, abd -Primary Dressing Covered/Secured with Dry Gauze & Secured with Roll Gauze, Tape Secured with Tape -Other Covering gracia drsg per ak non destructive evaluation manager -Silvercel 3 3 Treatment Response Procedure Procedure Tolerated Well Tolerated Well Pain Scale: 0-10 Numeric Is Patient Pain Free? Yes Yes WC - Visit Discharge Discharge Condition Stable Stable Ambulatory Status Ambulatory Ambulatory Transportation Private Auto Private Auto Assessment/Plan Assessment/Plan (1) Nonhealing ulcer of right lower extremity with fat layer exposed: CODE(S): L97.912 - Non-pressure chronic ulcer of unspecified part of right lower leg with fat layer exposed (2) Acute postoperative anemia due to expected blood loss: CODE(S): D62 - Acute posthemorrhagic anemia (3) Edema of both lower extremities: CODE(S): R60.0 - Localized edema (4) Chronic acquired lymphedema: CODE(S): I89.0 - Lymphedema, not elsewhere classified (5) Excessive and redundant skin and subcutaneous tissue: CODE(S): L98.7 - Excessive and redundant skin and subcutaneous tissue (6) Intertrigo: CODE(S): L30.4 - Erythema intertrigo (7) Morbid obesity: CODE(S): E66.01 - Morbid (severe) obesity due to excess calories (8) Excessive body weight loss: CODE(S): R63.4 - Abnormal weight loss (9) History of bariatric surgery: CODE(S): Z98.84 - Bariatric surgery status (10) History of excision of mass: CODE(S): Z98.890 - Other specified postprocedural states (11) Former smoker: CODE(S): Z87.891 - Personal history of nicotine dependence (12) Other acute postprocedural pain: CODE(S): G89.18 - Other acute postprocedural pain PLAN: Plan Patient evaluated at the wound healing center today. Wound care - Right medial leg ulcer sliver alginate topped with ABDs daily and as needed after washing ulcer and josephine wound with soap and water. He wears an GRACIA wrap or abdominal binder around his right thigh for compression. Will place new GRACIA wraps on right lower leg and thigh for better compression. He would benefit from home compression pumps for his lymphedema but he needs to have vascular studies which have been ordered in the past but he has never obtained. Hgb 8.8 on 10/25/22 Will recheck in 1-2 weeks. He is on iron supplementation. Prealbumin 21.9 on 10/06/22. Encouraged increase in protein intake to help with wound healing. Renewed his Percocet 7.5 mg (28 tabs). Follow up 1 week.
== END 2022-11-08 23:59 | disposition home or self-care (01) ==
LOC: WC 10:30
PROVIDERS: PCP Internal Medicine; Referring Provider Internal Medicine; Visit Provider Nurse Practitioner Family
DX: L97.112 Non-pressure chronic ulcer of right thigh with fat layer exposed (principal); E66.01 Morbid (severe) obesity due to excess calories; Z68.43 Body mass index [BMI] 50.0-59.9, adult; D62 Acute posthemorrhagic anemia; G89.18 Other acute postprocedural pain; R63.4 Abnormal weight loss; I89.0 Lymphedema, not elsewhere classified; R60.0 Localized edema; L98.7 Excessive and redundant skin and subcutaneous tissue; L30.4 Erythema intertrigo; Z98.84 Bariatric surgery status; Z98.890 Other specified postprocedural states; Z87.891 Personal history of nicotine dependence
CPT/HCPCS: 11043; 11046; 99214; G0463

== ENCOUNTER → 2022-11-11 | Outpatient (CLI) | payer MEDICAID, SELFPAY ==
[2022-11-11 10:18] LABS: Bacteria 0 SEEN /hpf (None Seen); Mucous, Urine 0 SEEN /hpf (<or=2+); Squamous Epithelial Cells - UA 0 SEEN /hpf (0-5)
[2022-11-11 10:22] LABS: Color, Urine Yellow (Yellow); Glucose, Dipstick Normal (Normal); Ketone-Dipstick Negative (Negative); Leukocyte Esterase-Dipstick 500 /ul (Negative); Nitrite-Dipstick Negative (Negative); Occult Blood-Urine 25 /ul (Negative); Protein-Dipstick 15 mg/dl (Negative); Specific Gravity, Urine 1.005 (1.002-1.030); Urine Bilirubin Dipstick Negative (Negative); Urine Clarity Clear (Clear); Urine Urobilinogen Normal (Normal)
[2022-11-11 10:41] LABS: Red Blood Cells-Urine 0-5 SEEN /hpf (0-5); White Blood Cells 25-50 SEEN /hpf (0-5)
== END | disposition home or self-care (01) ==
LOC: LABSPEC 10:06
PROVIDERS: PCP Internal Medicine; Visit Provider Physician Assistant
DX: R30.0 Dysuria (principal)
CPT/HCPCS: 81001; 87077; 87086; 87088; 87186

== ENCOUNTER 2022-11-28 09:30 | Outpatient (RCR) | payer MEDICAID, SELFPAY ==
[2022-11-09 00:05] VITALS: BP 156/108; PULSE 108; RESP 22; TEMP 35.8; BMI 57.7
[2022-11-14 10:42] VITALS: BP 159/71; PULSE 91; RESP 22; TEMP 36.1; BMI 57.7
--- NOTE | 2022-11-14 11:27 | PCM.WC.PN ---
History of Present Illness Date of Service: 11/14/22 Chief Complaint: Nonhealing ulcer left medial thigh. History of Wound: 47 year old man presents with areas of redundant skin and subcutaneous tissue in his bilateral medial thighs and abdominal panniculus with associated panniculitis. There is abdominal wall skin crease intertrigo and bilateral medial thigh intertrigo for which he uses powders for relief. This excess skin and subcutaneous tissue was the result of bariatric surgery done in [place] in May,. He lost about 250 lbs and his current weight is about 440 lbs. He has a history of lower extremity lymphedema resulting from the extreme body weight and has persistent dependent edema in his medial thighs which aggravates his symptomatology. He denies trauma. He denies fever. Both areas bother him but the medial thighs are his initial priority as he has trouble with ambulating. We received medical approval from his insurance company for his thigh surgery. Surgery 09/22/20 - Excision redundant skin and subcutaneous tissue left medial and posterior thigh with dermolipectomy. Surgery 10/05/22 - Surgical preparation right medial and posterior thigh with excision redundant skin and subcutaneous tissue with radical dermolipectomy. He went to [facility] for almost a month, he had a wound VAC while he was at [facility]. Hgb 8.7 on . Repeat Hgb 8.8 on 10/25/22 at [facility]. On iron supplementation but with his history of gastric bypass, that may impact his absorption of the iron. Will continue to monitor. Wound care - Silver alginate covered with ABDs daily and as needed. Today he denies fever and chills and states his appetite is good. Progress of Wound: Right medial leg ulcer is pink. Pain is controlled with pain meds. He continues to have increased swelling of his right leg, knee and distal thigh. He has a history of lymphedema and it is much worse over the past couple weeks. Objective Data Objective Data Vital Signs: Vital Signs Temp Pulse Resp BP 96.9 F L 91 22 H 159/71 H 11/14/22 10:42 11/14/22 10:42 11/14/22 10:42 11/14/22 10:42 Weight: 500 lb Body Mass Index (BMI) 57.7 Charges/Coding Procedures Integumentary 111xxx-113xx: 96156 Global Visit Debridement Note Debridement Note Wound debrided: Right medial thigh ulcer Laterality: Right Wound Grade/Stage: Stage IV Type of Debridement: Excisional debridement Anesthesia Used: 5% Lidocaine Gel Depth: Down to and including healthy tissue, in the subcutaneous layer and to muscle Percentage of wound debrided: 100 Instrument Used: 7mm curette Tissue Removed: Devitalized tissue and slough into muscle. Severity: Fat Layer Exposed Amount of bleeding with debridement: Moderate Bleeding Controlled with: Pressure and Compression and gauze Patient tolerated procedure: Patient tolerated procedure well Post-Debridement Measurements and Additional Note: Post-Debridement Measurements/Treatment - Nurse 1 - General Ulcer Assessment Start: 11/14/22 10:41 Freq: Status: Active Protocol: WILLIAM Activity Type Activity Date Activity User E-sign Co-sign Detail Recorded Client Recorded Date Recorded By Document 11/14/22 10:42 DL [id number] 11/14/22 10:55 DL 11/14/22 10:42 WC - Today's Visit Information Type of service 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/[employer] ) Arrival Mode Ambulatory Transfer Assistance None Patient Identification Verified (Name & Yes ) Patient Requires Transmission-Based No Precautions Height and Weight Body Mass Index (BMI) 57.7 BMI Classification Obese Vital Signs Temperature (97.8 F-99.1 F) 96.9 F L Temperature Source Temporal Pulse Rate (60-100) 91 Pulse Location Monitor Respiratory Rate (12-18) 22 H Respiratory rate source Observation Blood Pressure (90/60-120/80) 159/71 H Blood Pressure Mean (mm Hg) 100 Source Monitor History Since Last Visit- (Skip if this is Patient's initial visit) Have you changed medications since your No last visit? Any new allergies or adverse reactions No Had a fall/change in ADL's that may No increase risk of falls Signs or symptoms of abuse and/or No neglect since last visit Have you been in the hospital since your No last visit? Has dressing in place as prescribed Yes Has compression in place as prescribed Yes Has offloadiing in place as prescribed N/A Experienced any changes in pain level or No management Pain Scale: 0-10 Numeric Is Patient Pain Free? Yes ACOSTA Reynolds Nurse 1 - General Ulcer Measurement Start: 11/14/22 10:41 Freq: Status: Active Protocol: Activity Type Activity Date Activity User E-sign Co-sign Detail Recorded Client Recorded Date Recorded By Document 11/14/22 10:42 DL [id number] 11/14/22 10:55 DL 11/14/22 10:42 Wound Center Nurse 1 10. R medial thigh -Current Size (cm) - Length 24.5 -Current Size (cm) - Width 19 -Current Size (cm) - Depth 1 -Total Square Cm 465.5 -Photo Taken Yes -Exudate Amt Large -Exudate Type Serosanguineous -Wound Margin Distinct, Outline Attached -Granulation Amt Medium (34-66%) -Granulation Quality Pale,[place] -Necrosis Amt Medium (34-66%) -Necrotic Tissue Type Adherent Slough -Structure Exposed N/A -Texture (Josephine-wound Skin Appearance) Scarring -Moisture (Josephine-wound Skin Appearance) No Abnormality -Color (Josephine-wound Skin Appearance) No Abnormality -Temperature (Josephine-wound Skin No Abnormality Appearance) (Pt Warm) -Tenderness on Palpation (Josephine-wound Yes Skin Appearance) -Ulcer Cleansing Soap and Water -Foul Odor after Cleansing No -Anesthetic Used 4% Lidocaine Solution WC - Nurse 2 - General Ulcer CM Notes Start: 11/14/22 10:41 Freq: Status: Active Protocol: Activity Type Activity Date Activity User E-sign Co-sign Detail Recorded Client Recorded Date Recorded By Document 11/14/22 11:12 JOHN [id number] 11/14/22 11:20 JF Edit Result 11/14/22 11:12 JOHN (1) [id number] 11/14/22 11:20 JOHN (1) 10. R medial thigh - Debridement, Muscle/Fascia, ea addt'l => 18 20sq cm or part thereof 11/14/22 11:12 Wound Center Nurse 2 -Time 11:12 -Correct Patient Yes -Correct Side, Site, Position Yes -Correct Procedure Yes -Procedure Performed Yes -Type of Procedure Debridement -Clinical Debridement Muscle / Fascia -Tissue Removed Muscle,Fascia -Post Debridement (cm) - Length 19 -Post Debridement (cm) - Width 19 -Post Debridement (cm) - Depth 1.0 -Total Square (Post) (cm) 361 -Area of Debridement (cm) - Length 19 -Area of Debridement (cm) - Width 19 -Total Square (Area) (cm) 361 -Tunneling No -Undermining/Tunneling No -Circular Undermining No -Wound/Ulcer Outcome Not Healed -Ulcer Cleansing Rinsed/ Irrigated with Saline -Foul Odor after Cleansing No -Bioengineered Tissue No -Bleeding Controlled with Pressure -Treatment Response Procedure Tolerated Well -Offloading No -Debridement - Muscle / Fascia, 1st Yes 20sq cm -Debridement, Muscle/Fascia, ea addt'l 18 20sq cm or part thereof Pain Scale: 0-10 Numeric Is Patient Pain Free? Yes Assessment/Plan Assessment/Plan (1) Nonhealing ulcer of right lower extremity with fat layer exposed: CODE(S): L97.912 - Non-pressure chronic ulcer of unspecified part of right lower leg with fat layer exposed (2) Acute postoperative anemia due to expected blood loss: CODE(S): D62 - Acute posthemorrhagic anemia (3) Edema of both lower extremities: CODE(S): R60.0 - Localized edema (4) Chronic acquired lymphedema: CODE(S): I89.0 - Lymphedema, not elsewhere classified (5) Excessive and redundant skin and subcutaneous tissue: CODE(S): L98.7 - Excessive and redundant skin and subcutaneous tissue (6) Intertrigo: CODE(S): L30.4 - Erythema intertrigo (7) Morbid obesity: CODE(S): E66.01 - Morbid (severe) obesity due to excess calories (8) Excessive body weight loss: CODE(S): R63.4 - Abnormal weight loss (9) History of bariatric surgery: CODE(S): Z98.84 - Bariatric surgery status (10) History of excision of mass: CODE(S): Z98.890 - Other specified postprocedural states (11) Former smoker: CODE(S): Z87.891 - Personal history of nicotine dependence (12) Other acute postprocedural pain: CODE(S): G89.18 - Other acute postprocedural pain PLAN: Plan Patient evaluated at the wound healing center today. Wound care - Right medial leg ulcer sliver alginate topped with ABDs daily and as needed after washing ulcer and josephine wound with soap and water. He wears an GRACIA wrap or abdominal binder around his right thigh for compression. Will place Sure press wraps on right lower leg and thigh for better compression to see if this will help his lymphedema. He would benefit from home compression pumps for his lymphedema but he needs to have vascular studies which have been ordered in the past but he has never obtained. Hgb 8.8 on 10/25/22 Ordered a recheck CBC. He is on iron supplementation. Prealbumin 21.9 on 10/06/22. Encouraged increase in protein intake to help with wound healing. Follow up 1 week.
[2022-11-21 10:45] VITALS: BP 140/82; PULSE 64; RESP 16; TEMP 36.2; BMI 57.7
--- NOTE | 2022-11-21 13:01 | PN.PCM_ITS ---
History of Present Illness Date of Service: 11/21/22 Chief Complaint: Nonhealing ulcer left medial thigh. History of Wound: 47 year old man presents with areas of redundant skin and subcutaneous tissue in his bilateral medial thighs and abdominal panniculus with associated panniculitis. There is abdominal wall skin crease intertrigo and bilateral medial thigh intertrigo for which he uses powders for relief. This excess skin and subcutaneous tissue was the result of bariatric surgery done in [place] in May,. He lost about 250 lbs and his current weight is about 440 lbs. He has a history of lower extremity lymphedema resulting from the extreme body weight and has persistent dependent edema in his medial thighs which aggravates his symptomatology. He denies trauma. He denies fever. Both areas bother him but the medial thighs are his initial priority as he has trouble with ambulating. We received medical approval from his insurance company for his thigh surgery. Surgery 09/22/20 - Excision redundant skin and subcutaneous tissue left medial and posterior thigh with dermolipectomy. Surgery 10/05/22 - Surgical preparation right medial and posterior thigh with excision redundant skin and subcutaneous tissue with radical dermolipectomy. He went to [facility] for almost a month, he had a wound VAC while he was at [facility]. Hgb 8.7 on . Repeat Hgb 8.8 on 10/25/22 at [facility]. On iron supplementation but with his history of gastric bypass, that may impact his abso rption of the iron. Will continue to monitor. Wound care - Silver alginate covered with ABDs daily and as needed. Today he denies fever and chills and states his appetite is good. Progress of Wound: Right medial leg ulcer is pink, it is getting smaller. He continues to have increased swelling of his right leg around the proximal lower leg and knee area. Objective Data Objective Data Vital Signs: Vital Signs Temp Pulse Resp BP O2 Del Method 97.2 F L 64 16 140/82 H Room Air 11/21/22 10:45 11/21/22 10:45 11/21/22 10:45 11/21/22 10:45 11/21/22 10:45 Oxygen Delivery Method Room Air Weight: 500 lb Body Mass Index (BMI) 57.7 Charges/Coding Procedures Integumentary 111xxx-113xx: 16431 Global Visit Debridement Note Debridement Note Wound debrided: Right medial thigh ulcer Laterality: Right Wound Grade/Stage: Stage IV Type of Debridement: Excisional debridement Anesthesia Used: 5% Lidocaine Gel Depth: Down to and including healthy tissue, in the subcutaneous layer and to muscle Percentage of wound debrided: 100 Instrument Used: 7mm curette Tissue Removed: Devitalized tissue and slough into muscle. Severity: Fat Layer Exposed Amount of bleeding with debridement: Moderate Bleeding Controlled with: Pressure and Compression and gauze Patient tolerated procedure: Patient tolerated procedure well Post-Debridement Measurements and Additional Note: Post-Debridement Measurements/Treatment - Nurse 1 - General Ulcer Assessment Start: 11/14/22 10:41 Freq: Status: Active Protocol: ACOSTA.AptelaCristina Activity Type Activity Date Activity User E-sign Co-sign Detail Recorded Client Recorded Date Recorded By Document 11/14/22 10:42 DL [id number] 11/14/22 10:55 DL Document 11/21/22 10:45 [facility] [id number] 11/21/22 10:51 [facility] 11/14/22 11/21/22 10:42 10:45 - Today's Visit Information Type of service Follow-up Visit 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/[employer] (Physician/[employer] ) ) Arrival Mode Ambulatory Ambulatory Transfer Assistance None None Patient Identification Verified (Name & Yes Yes ) Patient Requires Transmission-Based No No Precautions Height and Weight Body Mass Index (BMI) 57.7 57.7 BMI Classification Obese Obese Vital Signs Temperature (97.8 F-99.1 F) 96.9 F L 97.2 F L Temperature Source Temporal Temporal Pulse Rate (60-100) 91 64 Pulse Location Monitor Monitor Respiratory Rate (12-18) 22 H 16 Respiratory rate source Observation Observation Oxygen Delivery Method Room Air Blood Pressure (90/60-120/80) 159/71 H 140/82 H Blood Pressure Mean (mm Hg) 100 101 Source Monitor Monitor Position Sitting Blood Pressure Location Left Arm History Since Last Visit- (Skip if this is Patient's initial visit) Have you changed medications since your No No last visit? Any new allergies or adverse reactions No No Had a fall/change in ADL's that may No No increase risk of falls Signs or symptoms of abuse and/or No No neglect since last visit Have you been in the hospital since your No No last visit? Has dressing in place as prescribed Yes Yes Has compression in place as prescribed Yes N/A Has offloadiing in place as prescribed N/A N/A Experienced any changes in pain level or No No management Left Footwear Regular Shoe Right Footwear Regular Shoe Pain Scale: 0-10 Numeric Is Patient Pain Free? Yes Yes - Nurse 1 - General Ulcer Measurement Start: 11/14/22 10:41 Freq: Status: Active Protocol: Activity Type Activity Date Activity User E-sign Co-sign Detail Recorded Client Recorded Date Recorded By Document 11/14/22 10:42 DL [id number] 11/14/22 10:55 DL Document 11/21/22 10:45 BM [id number] 11/21/22 10:51 BMF 11/14/22 11/21/22 10:42 10:45 Wound Center Nurse 1 10. R medial thigh -Combined with other wound No -Current Size (cm) - Length 24.5 20 -Current Size (cm) - Width 19 22 -Current Size (cm) - Depth 1 0.1 -Total Square Cm 465.5 440 -Date of Last Picture (Recall this 11/21/22 field) -Photo Taken Yes Yes -Epithelialization Small 1-33% -Tunneling No -Undermining/Tunneling No -Circular Undermining No -Exudate Amt Large Large -Exudate Type Serosanguineous Serosanguineous -Wound Margin Distinct, Distinct, Outline Outline Attached Attached -Granulation Amt Medium (34-66%) Medium (34-66%) -Granulation Quality Pale,[place] -Slough/Fibrin Yes -Necrosis Amt Medium (34-66%) Medium (34-66%) -Necrotic Tissue Type Adherent Slough Adherent Slough -Structure Exposed N/A -Texture (Josephine-wound Skin Appearance) Scarring Assessed, Scarring -Moisture (Josephine-wound Skin Appearance) No Abnormality Assessed,Dry/ Scaly -Color (Josephine-wound Skin Appearance) No Abnormality Assessed -Temperature (Josephine-wound Skin No Abnormality No Abnormality Appearance) (Pt Warm) (Pt Warm) -Tenderness on Palpation (Josephine-wound Yes No Skin Appearance) -Ulcer Cleansing Soap and Water Soap and Water -Foul Odor after Cleansing No No -Anesthetic Used 4% Lidocaine 4% Lidocaine Solution Solution ACOSTA - Nurse 2 - General Ulcer CM Notes Start: 11/14/22 10:41 Freq: Status: Active Protocol: Activity Type Activity Date Activity User E-sign Co-sign Detail Recorded Client Recorded Date Recorded By Document 11/14/22 11:12 [id number] 11/14/22 11:20 Edit Result 11/14/22 11:12 (1) [id number] 11/14/22 11:20 JF Document 11/21/22 11:22 [id number] 11/21/22 11:27 (1) 10. R medial thigh - Debridement, Muscle/Fascia, ea addt'l => 18 20sq cm or part thereof 11/14/22 11/21/22 11:12 11:22 Wound Center Nurse 2 10. R medial thigh -Time 11:12 11:23 -Correct Patient Yes Yes -Correct Side, Site, Position Yes Yes -Correct Procedure Yes Yes -Procedure Performed Yes Yes -Type of Procedure Debridement Debridement -Clinical Debridement Muscle / Fascia Subcutaneous -Tissue Removed Muscle,Fascia Subcutaneous -Post Debridement (cm) - Length 19 18 -Post Debridement (cm) - Width 19 20 -Post Debridement (cm) - Depth 1.0 1.0 -Total Square (Post) (cm) 361 360 -Area of Debridement (cm) - Length 19 18 -Area of Debridement (cm) - Width 19 20 -Total Square (Area) (cm) 361 360 -Tunneling No No -Undermining/Tunneling No No -Circular Undermining No No -Wound/Ulcer Outcome Not Healed Not Healed -Ulcer Cleansing Rinsed/ Rinsed/ Irrigated with Irrigated with Saline Saline -Foul Odor after Cleansing No No -Bioengineered Tissue No No -Bleeding Controlled with Pressure Pressure -Treatment Response Procedure Procedure Tolerated Well Tolerated Well -Offloading No No -Debridement - Subq, 1st 20sq cm Yes -Debridement, SubQ, ea addt'l 20sq cm 17 or part thereof -Debridement - Muscle / Fascia, 1st Yes 20sq cm -Debridement, Muscle/Fascia, ea addt'l 18 20sq cm or part thereof Pain Scale: 0-10 Numeric Is Patient Pain Free? Yes Yes WC - Nurse 3 - General Ulcer D/C NN Start: 11/14/22 10:41 Freq: Status: Active Protocol: Activity Type Activity Date Activity User E-sign Co-sign Detail Recorded Client Recorded Date Recorded By Document 11/14/22 11:27 DL [id number] 11/14/22 11:29 DL Document 11/21/22 11:34 [facility] [id number] 11/21/22 11:35 [facility] 11/14/22 11/21/22 11:27 11:34 Wound Care Center Nurse 3 10. R medial thigh -Ulcer Cleansing Soap and Water Soap and Water -Foul Odor after Cleansing No No -Primary Dressing Applied Aquacel AG 4x4, Silvercel Silvercel -Other Dressing silver Alginate abd -Primary Dressing Covered/Secured with Dry Gauze, Dry Gauze & Secured with Roll Gauze, Tape Secured with Tape -Other Covering ABDs drsg per dl solution consultant -Aquacel AG 4x4 2 -Silvercel 1 3 Right -Compression Wrap Surepress ($) [place]mond Wrap Treatment Response Procedure Procedure Tolerated Well Tolerated Well Pain Scale: 0-10 Numeric Is Patient Pain Free? Yes Yes WC - Visit Discharge Discharge Condition Stable Stable Ambulatory Status Ambulatory Ambulatory Transportation Private Auto Private Auto Assessment/Plan Assessment/Plan (1) Nonhealing ulcer of right lower extremity with fat layer exposed: CODE(S): L97.912 - Non-pressure chronic ulcer of unspecified part of right lower leg with fat layer exposed (2) Acute postoperative anemia due to expected blood loss: CODE(S): D62 - Acute posthemorrhagic anemia (3) Edema of both lower extremities: CODE(S): R60.0 - Localized edema (4) Chronic acquired lymphedema: CODE(S): I89.0 - Lymphedema, not elsewhere classified (5) Excessive and redundant skin and subcutaneous tissue: CODE(S): L98.7 - Excessive and redundant skin and subcutaneous tissue (6) Intertrigo: CODE(S): L30.4 - Erythema intertrigo (7) Morbid obesity: CODE(S): E66.01 - Morbid (severe) obesity due to excess calories (8) Excessive body weight loss: CODE(S): R63.4 - Abnormal weight loss (9) History of bariatric surgery: CODE(S): Z98.84 - Bariatric surgery status (10) History of excision of mass: CODE(S): Z98.890 - Other specified postprocedural states (11) Former smoker: CODE(S): Z87.891 - Personal history of nicotine dependence (12) Other acute postprocedural pain: CODE(S): G89.18 - Other acute postprocedural pain PLAN: Plan Patient evaluated at the wound healing center today. Wound care - Right medial leg ulcer sliver alginate topped with ABDs daily and as needed after washing ulcer and josephine wound with soap and water. He wears an DESMOND wrap or abdominal binder around his right thigh for compression. Will place Sure press wraps on right lower leg and thigh for better compression to see if this will help his lymphedema. He would benefit from home compression pumps for his lymphedema but he needs to have vascular studies which have been ordered in the past but he has never obtained. Hgb 8.8 on 10/25/22 Ordered a recheck CBC. He is on iron supplementation. Stressed to him that he needs to get this done this week. Prealbumin 21.9 on 10/06/22. Encouraged increase in protein intake to help with wound healing. Renewed Percocet 7.5 mg TID PRN pain (21 tabs). PDMP reviewed. Follow up 1 week.
[2022-11-28 09:32] VITALS: BP 173/85; PULSE 65; TEMP 36.3; BMI 57.7
--- NOTE | 2022-11-28 12:27 | PN.PCM_ITS ---
History of Present Illness Date of Service: 11/28/22 Chief Complaint: Nonhealing ulcer left medial thigh. History of Wound: 47 year old man presents with areas of redundant skin and subcutaneous tissue in his bilateral medial thighs and abdominal panniculus with associated panniculitis. There is abdominal wall skin crease intertrigo and bilateral medial thigh intertrigo for which he uses powders for relief. This excess skin and subcutaneous tissue was the result of bariatric surgery done in [place] in May,. He lost about 250 lbs and his current weight is about 440 lbs. He has a history of lower extremity lymphedema resulting from the extreme body weight and has persistent dependent edema in his medial thighs which aggravates his symptomatology. He denies trauma. He denies fever. Both areas bother him but the medial thighs are his initial priority as he has trouble with ambulating. We received medical approval from his insurance company for his thigh surgery. Surgery 09/22/20 - Excision redundant skin and subcutaneous tissue left medial and posterior thigh with dermolipectomy. Surgery 10/05/22 - Surgical preparation right medial and posterior thigh with excision redundant skin and subcutaneous tissue with radical dermolipectomy. He went to [facility] for almost a month, he had a wound VAC while he was at [facility]. Hgb 8.7 on . Repeat Hgb 8.8 on 10/25/22 at [facility]. On iron supplementation but with his history of gastric bypass, that may impact his abso rption of the iron. Will continue to monitor. Wound care - Silver alginate covered with ABDs daily and as needed. Today he denies fever and chills and states his appetite is good. Progress of Wound: Right medial leg ulcer is pink, it is getting smaller. He continues to have swelling of his right leg around the proximal lower leg and knee area. Objective Data Objective Data Vital Signs: Vital Signs Temp Pulse Resp BP O2 Del Method 97.3 F L 65 16 173/85 H Room Air 11/28/22 09:32 11/28/22 09:32 11/21/22 10:45 11/28/22 09:32 11/21/22 10:45 Oxygen Delivery Method Room Air Weight: 500 lb Body Mass Index (BMI) 57.7 Charges/Coding Procedures Integumentary 111xxx-113xx: 95021 Global Visit Debridement Note Debridement Note Wound debrided: Right medial thigh ulcer Laterality: Right Wound Grade/Stage: Stage IV Type of Debridement: Excisional debridement Anesthesia Used: 5% Lidocaine Gel Depth: Down to and including healthy tissue and in the subcutaneous layer Percentage of wound debrided: 100 Instrument Used: 7mm curette Tissue Removed: Devitalized tissue and slough Severity: Fat Layer Exposed Amount of bleeding with debridement: Moderate Bleeding Controlled with: Pressure and Compression and gauze Patient tolerated procedure: Patient tolerated procedure well Post-Debridement Measurements and Additional Note: Post-Debridement Measurements/Treatment - Nurse 1 - General Ulcer Assessment Start: 11/14/22 10:41 Freq: Status: Active Protocol: ACOSTAiCADCristina Activity Type Activity Date Activity User E-sign Co-sign Detail Recorded Client Recorded Date Recorded By Document 11/14/22 10:42 DL [id number] 11/14/22 10:55 DL Document 11/21/22 10:[address] [facility] [id number] 11/21/22 10:[address] [facility] Document 11/28/22 09:32 AK [id number] 11/28/22 09:41 AK 11/14/22 11/21/22 11/28/22 10:42 10:45 09:32 - Today's Visit Information Type of service Follow-up Visit Follow-up Visit 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/CUSTOMER TRAINING SPECIALIST (Physician/CUSTOMER TRAINING SPECIALIST (Physician/CUSTOMER TRAINING SPECIALIST ) ) ) Arrival Mode Ambulatory Ambulatory Ambulatory Transfer Assistance None None Patient Identification Verified (Name & Yes Yes Yes ) Patient Requires Transmission-Based No No No Precautions Height and Weight Body Mass Index (BMI) 57.7 57.7 57.7 BMI Classification Obese Obese Obese Vital Signs Temperature (97.8 F-99.1 F) 96.9 F L 97.2 F L 97.3 F L Temperature Source Temporal Temporal Temporal Pulse Rate (60-100) 91 64 65 Pulse Location Monitor Monitor Monitor Respiratory Rate (12-18) 22 H 16 Respiratory rate source Observation Observation Oxygen Delivery Method Room Air Blood Pressure (90/60-120/80) 159/71 H 140/82 H 173/85 H Blood Pressure Mean (mm Hg) 100 101 114 Source Monitor Monitor Monitor Position Sitting Blood Pressure Location Left Arm History Since Last Visit- (Skip if this is Patient's initial visit) Have you changed medications since your No No No last visit? Any new allergies or adverse reactions No No No Had a fall/change in ADL's that may No No No increase risk of falls Signs or symptoms of abuse and/or No No No neglect since last visit Have you been in the hospital since your No No No last visit? Has dressing in place as prescribed Yes Yes Yes Has compression in place as prescribed Yes N/A N/A Has offloadiing in place as prescribed N/A N/A N/A Experienced any changes in pain level or No No No management Left Footwear Regular Shoe Regular Shoe Right Footwear Regular Shoe Regular Shoe Pain Scale: 0-10 Numeric Is Patient Pain Free? Yes Yes No WC - Nurse 1 - General Ulcer Measurement Start: 11/14/22 10:41 Freq: Status: Active Protocol: Activity Type Activity Date Activity User E-sign Co-sign Detail Recorded Client Recorded Date Recorded By Document 11/14/22 10:42 DL [id number] 11/14/22 10:55 DL Document 11/21/22 10:[address] [facility] [id number] 11/21/22 10:51 [facility] Document 11/28/22 09:32 AK [id number] 11/28/22 09:41 AK 11/14/22 11/21/22 11/28/22 10:42 10:45 09:32 Wound Center Nurse 1 10. R medial thigh -Combined with other wound No No -Current Size (cm) - Length 24.5 20 21 -Current Size (cm) - Width 19 22 17 -Current Size (cm) - Depth 1 0.1 0.1 -Total Square Cm 465.5 440 357 -Date of Last Picture (Recall this 11/21/22 field) -Photo Taken Yes Yes No -Epithelialization Small 1-33% -Tunneling No No -Undermining/Tunneling No No -Circular Undermining No No -Change in Wound Grade/Stage No -Exudate Amt Large Large Large -Exudate Type Serosanguineous Serosanguineous Serosanguineous -Wound Margin Distinct, Distinct, Distinct, Outline Outline Outline Attached Attached Attached -Granulation Amt Medium (34-66%) Medium (34-66%) Large (67-100%) -Granulation Quality Pale,[place] Red Red -Slough/Fibrin Yes Yes -Necrosis Amt Medium (34-66%) Medium (34-66%) Small (1-33%) -Necrotic Tissue Type Adherent Slough Adherent Slough Adherent Slough -Structure Exposed N/A N/A -Texture (Josephine-wound Skin Appearance) Scarring Assessed, Assessed, Scarring Scarring -Moisture (Josephine-wound Skin Appearance) No Abnormality Assessed,Dry/ No Abnormality, Scaly Assessed -Color (Josephine-wound Skin Appearance) No Abnormality Assessed No Abnormality, Assessed -Temperature (Josephine-wound Skin No Abnormality No Abnormality No Abnormality Appearance) (Pt Warm) (Pt Warm) (Pt Warm) -Tenderness on Palpation (Josephine-wound Yes No No Skin Appearance) -Ulcer Cleansing Soap and Water Soap and Water Soap and Water -Foul Odor after Cleansing No No No -Anesthetic Used 4% Lidocaine 4% Lidocaine 4% Lidocaine Solution Solution Solution WC - Nurse 2 - General Ulcer CM Notes Start: 11/14/22 10:41 Freq: Status: Active Protocol: Activity Type Activity Date Activity User E-sign Co-sign Detail Recorded Client Recorded Date Recorded By Document 11/14/22 11:12 [id number] 11/14/22 11:20 Edit Result 11/14/22 11:12 (1) [id number] 11/14/22 11:20 Document 11/21/22 11:22 [id number] 11/21/22 11:27 Document 11/28/22 10:12 [id number] 11/28/22 10:20 (1) 10. R medial thigh - Debridement, Muscle/Fascia, ea addt'l => 18 20sq cm or part thereof 11/14/22 11/21/22 11/28/22 11:12 11:22 10:12 Wound Center Nurse 2 10. R medial thigh -Time 11:12 11:23 10:12 -Correct Patient Yes Yes Yes -Correct Side, Site, Position Yes Yes Yes -Correct Procedure Yes Yes Yes -Procedure Performed Yes Yes Yes -Type of Procedure Debridement Debridement Debridement -Clinical Debridement Muscle / Fascia Subcutaneous Subcutaneous -Tissue Removed Muscle,Fascia Subcutaneous Subcutaneous -Post Debridement (cm) - Length 19 18 18.2 -Post Debridement (cm) - Width 19 20 22 -Post Debridement (cm) - Depth 1.0 1.0 0.4 -Total Square (Post) (cm) 361 360 400.4 -Area of Debridement (cm) - Length 19 18 18.2 -Area of Debridement (cm) - Width 19 20 22 -Total Square (Area) (cm) 361 360 400.4 -Tunneling No No No -Undermining/Tunneling No No No -Circular Undermining No No No -Wound/Ulcer Outcome Not Healed Not Healed Not Healed -Ulcer Cleansing Rinsed/ Rinsed/ Rinsed/ Irrigated with Irrigated with Irrigated with Saline Saline Saline -Foul Odor after Cleansing No No No -Bioengineered Tissue No No No -Bleeding Controlled with Pressure Pressure Pressure -Treatment Response Procedure Procedure Tolerated Well Tolerated Well -Offloading No No No -Debridement - Subq, 1st 20sq cm Yes Yes -Debridement, SubQ, ea addt'l 20sq cm 17 20 or part thereof -Debridement - Muscle / Fascia, 1st Yes 20sq cm -Debridement, Muscle/Fascia, ea addt'l 18 20sq cm or part thereof Pain Scale: 0-10 Numeric Is Patient Pain Free? Yes Yes Yes - Nurse 3 - General Ulcer D/C NN Start: 11/14/22 10:41 Freq: Status: Active Protocol: Activity Type Activity Date Activity User E-sign Co-sign Detail Recorded Client Recorded Date Recorded By Document 11/14/22 11:27 [id number] 11/14/22 11:29 DL Document 11/21/22 11:[address] [facility] [id number] 11/21/22 11:[address] [facility] Document 11/28/22 10:27 [place] [id number] 11/28/22 10:28 AK 11/14/22 11/21/22 11/28/22 11:27 11:34 10:27 Wound Care Center Nurse 3 10. R medial thigh -Ulcer Cleansing Soap and Water Soap and Water Soap and Water -Foul Odor after Cleansing No No No -Negative Pressure Wound Therapy N/A -Primary Dressing Applied Aquacel AG 4x4, Silvercel Silvercel Silvercel -Other Dressing silver Alginate abd -Primary Dressing Covered/Secured with Dry Gauze, Dry Gauze & Dry Gauze & Secured with Roll Gauze, Roll Gauze, Tape Secured with Secured with Tape Tape -Other Covering ABDs drsg per dl sonography technologist -Aquacel AG 4x4 2 -Silvercel 1 3 2 Right -Lotion applied to leg before No compression wrap -Compression Wrap Surepress ($) Desmond Wrap Desmond Wrap Treatment Response Procedure Procedure Tolerated Well Tolerated Well Pain Scale: 0-10 Numeric Is Patient Pain Free? Yes Yes No WC - Visit Discharge Discharge Condition Stable Stable Stable Ambulatory Status Ambulatory Ambulatory Ambulatory Transportation Private Auto Private Auto Private Auto Medication Reconcilliation completed & Yes provided to patient/care provider Clinical Summary of Care Provided Yes Assessment/Plan Assessment/Plan (1) Nonhealing ulcer of right lower extremity with fat layer exposed: CODE(S): L97.912 - Non-pressure chronic ulcer of unspecified part of right lower leg with fat layer exposed (2) Acute postoperative anemia due to expected blood loss: CODE(S): D62 - Acute posthemorrhagic anemia (3) Edema of both lower extremities: CODE(S): R60.0 - Localized edema (4) Chronic acquired lymphedema: CODE(S): I89.0 - Lymphedema, not elsewhere classified (5) Excessive and redundant skin and subcutaneous tissue: CODE(S): L98.7 - Excessive and redundant skin and subcutaneous tissue (6) Intertrigo: CODE(S): L30.4 - Erythema intertrigo (7) Morbid obesity: CODE(S): E66.01 - Morbid (severe) obesity due to excess calories (8) Excessive body weight loss: CODE(S): R63.4 - Abnormal weight loss (9) History of bariatric surgery: CODE(S): Z98.84 - Bariatric surgery status (10) History of excision of mass: CODE(S): Z98.890 - Other specified postprocedural states (11) Former smoker: CODE(S): Z87.891 - Personal history of nicotine dependence (12) Other acute postprocedural pain: CODE(S): G89.18 - Other acute postprocedural pain PLAN: Plan Patient evaluated at the wound healing center today. Wound care - Right medial leg ulcer sliver alginate topped with ABDs daily and as needed after washing ulcer and josephine wound with soap and water. He wears an DESMOND wrap or abdominal binder around his right thigh for compression. The Sure press wraps on right lower leg and thigh did not help with his edema. He would benefit from home compression pumps for his lymphedema but he needs to have vascular studies which have been ordered in the past but he has never obtained. Hgb 8.8 on 10/25/22 Ordered a recheck CBC. He is on iron supplementation. Stressed to him that he needs to get this done this week. Prealbumin 21.9 on 10/06/22. Encouraged increase in protein intake to help with wound healing. Renewed Percocet 5 mg (decreased from 7.5 mg) TID PRN pain (21 tabs). PDMP reviewed. Follow up 2 weeks, I am out of town next week.
== END 2022-12-09 23:59 | disposition home or self-care (01) ==
LOC: WC 09:30
PROVIDERS: PCP Internal Medicine; Referring Provider Internal Medicine; Visit Provider Nurse Practitioner Family
DX: L97.112 Non-pressure chronic ulcer of right thigh with fat layer exposed (principal); E66.01 Morbid (severe) obesity due to excess calories; Z68.43 Body mass index [BMI] 50.0-59.9, adult; Z87.891 Personal history of nicotine dependence; I89.0 Lymphedema, not elsewhere classified; R60.0 Localized edema; L30.4 Erythema intertrigo; L98.7 Excessive and redundant skin and subcutaneous tissue; Z98.84 Bariatric surgery status
CPT/HCPCS: 11042; 11043; 11045; 11046

== ENCOUNTER 2023-01-02 11:15 | Outpatient (RCR) | payer MEDICAID, SELFPAY ==
[2022-12-10 00:49] VITALS: BP 173/85; PULSE 65; RESP 16; TEMP 36.3; BMI 57.7
[2022-12-12 10:29] VITALS: BP 171/97; PULSE 79; RESP 22; TEMP 36.3; BMI 57.7
[2022-12-12 12:13] LABS: Hematocrit 35.3 % (40-54); Hemoglobin 10.5 g/dL (13.0-16.5); Mean Corp Hgb Conc 29.7 g/dL (32-36); Mean Corpuscular Hgb 22.5 pg (27.0-32.0); Mean Corpuscular Volume 75.6 fL (80-94); Mean Platelet Vol. 9.2 fl (6.2-12.0); Platelet Count 330 K/mm3 (150-450); RBC Distribution Width SD 43.7 fl (35.1-43.9); Red Blood Count 4.67 M/mm3 (4.6-6.2); White Blood Count 7.9 K/mm3 (4.4-11.0)
--- NOTE | 2022-12-12 12:30 | PN.PCM_ITS ---
History of Present Illness Date of Service: 12/12/22 Chief Complaint: Nonhealing ulcer left medial thigh. History of Wound: 47 year old man presents with areas of redundant skin and subcutaneous tissue in his bilateral medial thighs and abdominal panniculus with associated panniculitis. There is abdominal wall skin crease intertrigo and bilateral medial thigh intertrigo for which he uses powders for relief. This excess skin and subcutaneous tissue was the result of bariatric surgery done in [place] in May,. He lost about 250 lbs and his current weight is about 440 lbs. He has a history of lower extremity lymphedema resulting from the extreme body weight and has persistent dependent edema in his medial thighs which aggravates his symptomatology. He denies trauma. He denies fever. Both areas bother him but the medial thighs are his initial priority as he has trouble with ambulating. We received medical approval from his insurance company for his thigh surgery. Surgery 09/22/20 - Excision redundant skin and subcutaneous tissue left medial and posterior thigh with dermolipectomy. Surgery 10/05/22 - Surgical preparation right medial and posterior thigh with excision redundant skin and subcutaneous tissue with radical dermolipectomy. He went to [facility] for almost a month, he had a wound VAC while he was at [facility]. Hgb 8.7 on . Repeat Hgb 8.8 on 10/25/22 at [facility]. On iron supplementation but with his history of gastric bypass, that may impact his abso rption of the iron. Will continue to monitor. Wound care - Silver alginate covered with ABDs daily and as needed. Today he denies fever and chills and states his appetite is good. Progress of Wound: Right medial leg ulcer is pink, it is getting smaller. He continues to have swelling of his right leg around the proximal lower leg and knee area. Objective Data Objective Data Vital Signs: Vital Signs Temp Pulse Resp BP 97.4 F L 79 22 H 171/97 H 12/12/22 10:29 12/12/22 10:29 12/12/22 10:29 12/12/22 10:29 Weight: 500 lb Body Mass Index (BMI) 57.7 Lab / Micro Data Result Diagrams: 12/12/22 11:35 Labs: Laboratory Results - last 24 hr 12/12/22 11:35: WBC 7.9, RBC 4.67, Hgb 10.5 L, Hct 35.3 L, MCV 75.6 L, MCH 22.5 L, MCHC 29.7 L, RDW Std Deviation 43.7, RDW Coeff of Alee 16.0 H, Plt Count 330, MPV 9.2 Charges/Coding Procedures Integumentary 111xxx-113xx: 46969 Global Visit Debridement Note Debridement Note Wound debrided: Right medial thigh ulcer Laterality: Right Wound Grade/Stage: Stage IV Type of Debridement: Excisional debridement Anesthesia Used: 5% Lidocaine Gel Depth: Down to and including healthy tissue and in the subcutaneous layer Percentage of wound debrided: 100 Instrument Used: 7mm curette Tissue Removed: Devitalized tissue and slough Severity: Fat Layer Exposed Amount of bleeding with debridement: Mild Bleeding Controlled with: Pressure and Compression and gauze Patient tolerated procedure: Patient tolerated procedure well Post-Debridement Measurements and Additional Note: Post-Debridement Measurements/Treatment - Nurse 1 - General Ulcer Assessment Start: 12/12/22 10:28 Freq: Status: Active Protocol: WILLIAM Activity Type Activity Date Activity User E-sign Co-sign Detail Recorded Client Recorded Date Recorded By Document 12/12/22 10:29 DL [id number] 12/12/22 10:40 DL 12/12/22 10:29 - Today's Visit Information Type of service 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/SAFETY COMPANION ) Arrival Mode Ambulatory Transfer Assistance None Patient Identification Verified (Name & Yes ) Patient Requires Transmission-Based No Precautions Height and Weight Body Mass Index (BMI) 57.7 BMI Classification Obese Vital Signs Temperature (97.8 F-99.1 F) 97.4 F L Temperature Source Temporal Pulse Rate (60-100) 79 Pulse Location Monitor Respiratory Rate (12-18) 22 H Respiratory rate source Observation Blood Pressure (90/60-120/80) 171/97 H Blood Pressure Mean (mm Hg) 121 Source Monitor History Since Last Visit- (Skip if this is Patient's initial visit) Have you changed medications since your No last visit? Any new allergies or adverse reactions No Had a fall/change in ADL's that may No increase risk of falls Signs or symptoms of abuse and/or No neglect since last visit Have you been in the hospital since your No last visit? Has dressing in place as prescribed Yes Has compression in place as prescribed N/A Experienced any changes in pain level or No management Pain Scale: 0-10 Numeric Is Patient Pain Free? Yes WC - Nurse 1 - General Ulcer Measurement Start: 12/12/22 10:28 Freq: Status: Active Protocol: Activity Type Activity Date Activity User E-sign Co-sign Detail Recorded Client Recorded Date Recorded By Document 12/12/22 10:29 DL [id number] 12/12/22 10:40 DL 12/12/22 10:29 Wound Center Nurse 1 10. R medial thigh -Current Size (cm) - Length 19.2 -Current Size (cm) - Width 14 -Current Size (cm) - Depth 0.1 -Total Square Cm 268.8 -Photo Taken Yes -Exudate Amt Large -Exudate Type Yellow/Green -Wound Margin Distinct, Outline Attached -Granulation Amt Large (67-100%) -Granulation Quality Red -Necrosis Amt Small (1-33%) -Necrotic Tissue Type Adherent Slough -Structure Exposed N/A -Texture (Josephine-wound Skin Appearance) Scarring -Moisture (Josephine-wound Skin Appearance) No Abnormality -Color (Josephine-wound Skin Appearance) No Abnormality -Temperature (Josephine-wound Skin No Abnormality Appearance) (Pt Warm) -Tenderness on Palpation (Josephine-wound No Skin Appearance) -Ulcer Cleansing Soap and Water -Foul Odor after Cleansing No -Anesthetic Used 4% Lidocaine Solution - Nurse 2 - General Ulcer CM Notes Start: 12/12/22 10:28 Freq: Status: Active Protocol: Activity Type Activity Date Activity User E-sign Co-sign Detail Recorded Client Recorded Date Recorded By Document 12/12/22 10:58 JOHN [id number] 12/12/22 11:04 JOHN 12/12/22 10:58 Wound Center Nurse 2 -Time 10:58 -Correct Patient Yes -Correct Side, Site, Position Yes -Correct Procedure Yes -Procedure Performed Yes -Type of Procedure Debridement -Clinical Debridement Subcutaneous -Tissue Removed Subcutaneous -Post Debridement (cm) - Length 15.5 -Post Debridement (cm) - Width 15.2 -Post Debridement (cm) - Depth 0.3 -Total Square (Post) (cm) 235.60 -Area of Debridement (cm) - Length 15.5 -Area of Debridement (cm) - Width 15.2 -Total Square (Area) (cm) 235.60 -Tunneling No -Undermining/Tunneling No -Circular Undermining No -Wound/Ulcer Outcome Not Healed -Ulcer Cleansing Rinsed/ Irrigated with Saline -Foul Odor after Cleansing No -Bioengineered Tissue No -Bleeding Controlled with Pressure -Treatment Response Procedure Tolerated Well -Offloading No -Debridement - Subq, 1st 20sq cm Yes -Debridement, SubQ, ea addt'l 20sq cm 11 or part thereof Pain Scale: 0-10 Numeric Is Patient Pain Free? Yes WC - Nurse 3 - General Ulcer D/C NN Start: 12/12/22 10:28 Freq: Status: Active Protocol: Activity Type Activity Date Activity User E-sign Co-sign Detail Recorded Client Recorded Date Recorded By Document 12/12/22 11:14 DL [id number] 12/12/22 11:16 DL 12/12/22 11:14 Wound Care Center Nurse 3 10. R medial thigh -Ulcer Cleansing Soap and Water -Foul Odor after Cleansing No -Primary Dressing Applied Silvercel -Primary Dressing Covered/Secured with Dry Gauze, Secured with Tape -Silvercel 1 Treatment Response Procedure Tolerated Well Pain Scale: 0-10 Numeric Is Patient Pain Free? Yes WC - Visit Discharge Discharge Condition Stable Transportation Private Auto Medication Reconcilliation completed & Yes provided to patient/care provider Assessment/Plan Assessment/Plan (1) Nonhealing ulcer of right lower extremity with fat layer exposed: CODE(S): L97.912 - Non-pressure chronic ulcer of unspecified part of right lower leg with fat layer exposed (2) Acute postoperative anemia due to expected blood loss: CODE(S): D62 - Acute posthemorrhagic anemia (3) Edema of both lower extremities: CODE(S): R60.0 - Localized edema (4) Chronic acquired lymphedema: CODE(S): I89.0 - Lymphedema, not elsewhere classified (5) Excessive and redundant skin and subcutaneous tissue: CODE(S): L98.7 - Excessive and redundant skin and subcutaneous tissue (6) Intertrigo: CODE(S): L30.4 - Erythema intertrigo (7) Morbid obesity: CODE(S): E66.01 - Morbid (severe) obesity due to excess calories (8) Excessive body weight loss: CODE(S): R63.4 - Abnormal weight loss (9) History of bariatric surgery: CODE(S): Z98.84 - Bariatric surgery status (10) History of excision of mass: CODE(S): Z98.890 - Other specified postprocedural states (11) Former smoker: CODE(S): Z87.891 - Personal history of nicotine dependence (12) Other acute postprocedural pain: CODE(S): G89.18 - Other acute postprocedural pain PLAN: Plan Patient evaluated at the wound healing center today. Wound care - Right medial leg ulcer sliver alginate topped with ABD or silicone boarder foam dressing daily and as needed after washing ulcer and josephine wound with soap and water. He wears an GRACIA wrap or abdominal binder around his right thigh for compression. He would benefit from home compression pumps for his lymphedema but he needs to have vascular studies which have been ordered in the past but he has never obtained. Hgb 8.8 on 10/25/22 He finally obtained the CBC recheck today, 12/12/22, Hgb 10.5. He is to continue the iron supplementation. Prealbumin 21.9 on 10/06/22. Encouraged increase in protein intake to help with wound healing. Follow up 1 week.
[2022-12-19 10:54] VITALS: BP 156/100; PULSE 70; RESP 16; TEMP 35.9; BMI 57.7
--- NOTE | 2022-12-19 11:34 | PCM.WC.PN ---
History of Present Illness Date of Service: 12/19/22 Chief Complaint: Nonhealing ulcer left medial thigh. History of Wound: 47 year old man presents with areas of redundant skin and subcutaneous tissue in his bilateral medial thighs and abdominal panniculus with associated panniculitis. There is abdominal wall skin crease intertrigo and bilateral medial thigh intertrigo for which he uses powders for relief. This excess skin and subcutaneous tissue was the result of bariatric surgery done in [place] in May,. He lost about 250 lbs and his current weight is about 440 lbs. He has a history of lower extremity lymphedema resulting from the extreme body weight and has persistent dependent edema in his medial thighs which aggravates his symptomatology. He denies trauma. He denies fever. Both areas bother him but the medial thighs are his initial priority as he has trouble with ambulating. We received medical approval from his insurance company for his thigh surgery. Surgery 09/22/20 - Excision redundant skin and subcutaneous tissue left medial and posterior thigh with dermolipectomy. Surgery 10/05/22 - Surgical preparation right medial and posterior thigh with excision redundant skin and subcutaneous tissue with radical dermolipectomy. He went to [facility] for almost a month, he had a wound VAC while he was at [facility]. Hgb 8.7 on . Repeat Hgb 8.8 on 10/25/22 at [facility]. On iron supplementation but with his history of gastric bypass, that may impact his absorption of the iron. Will continue to monitor. Wound care - Silver alginate covered with ABDs daily and as needed. Today he denies fever and chills and states his appetite is good. Progress of Wound: Right medial leg ulcer is beefy pink, it is getting smaller. He continues to have swelling of his right leg around the proximal lower leg and knee area. He is having discomfort with hemorrhoids today and is very uncomfortable. Objective Data Objective Data Vital Signs: Vital Signs Temp Pulse Resp BP O2 Del Method 96.7 F L 70 16 156/100 H Room Air 12/19/22 10:54 12/19/22 10:54 12/19/22 10:54 12/19/22 10:54 12/19/22 10:54 Oxygen Delivery Method Room Air Weight: 500 lb Body Mass Index (BMI) 57.7 Lab / Micro Data Result Diagrams: 12/12/22 11:35 Charges/Coding Procedures Integumentary 111xxx-113xx: 45331 Global Visit Debridement Note Debridement Note Wound debrided: Right medial thigh ulcer Laterality: Right Wound Grade/Stage: Stage IV Type of Debridement: Excisional debridement Anesthesia Used: 5% Lidocaine Gel Depth: Down to and including healthy tissue and in the subcutaneous layer Percentage of wound debrided: 100 Instrument Used: 7mm curette Tissue Removed: Devitalized tissue and slough Severity: Fat Layer Exposed Amount of bleeding with debridement: Moderate Bleeding Controlled with: Pressure and Compression and gauze Patient tolerated procedure: Patient tolerated procedure well Post-Debridement Measurements and Additional Note: Post-Debridement Measurements/Treatment - Nurse 1 - General Ulcer Assessment Start: 12/12/22 10:28 Freq: Status: Active Protocol: WILLIAM Activity Type Activity Date Activity User E-sign Co-sign Detail Recorded Client Recorded Date Recorded By Document 12/12/22 10:29 DL [id number] 12/12/22 10:40 DL Document 12/19/22 10:54 [facility] [id number] 12/19/22 11:03 [facility] 12/12/22 12/19/22 10:29 10:54 - Today's Visit Information Type of service Follow-up Visit 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/OUTBOARD MOTOR INSPECTOR (Physician/OUTBOARD MOTOR INSPECTOR ) ) Arrival Mode Ambulatory Ambulatory Transfer Assistance None None Patient Identification Verified (Name & Yes Yes ) Patient Requires Transmission-Based No No Precautions Height and Weight Body Mass Index (BMI) 57.7 57.7 BMI Classification Obese Obese Vital Signs Temperature (97.8 F-99.1 F) 97.4 F L 96.7 F L Temperature Source Temporal Temporal Pulse Rate (60-100) 79 70 Pulse Location Monitor Monitor Respiratory Rate (12-18) 22 H 16 Respiratory rate source Observation Observation Oxygen Delivery Method Room Air Blood Pressure (90/60-120/80) 171/97 H 156/100 H Blood Pressure Mean (mm Hg) 121 118 Source Monitor Monitor Position Sitting Blood Pressure Location Left Arm History Since Last Visit- (Skip if this is Patient's initial visit) Have you changed medications since your No No last visit? Any new allergies or adverse reactions No No Had a fall/change in ADL's that may No No increase risk of falls Signs or symptoms of abuse and/or No No neglect since last visit Have you been in the hospital since your No No last visit? Has dressing in place as prescribed Yes Yes Has compression in place as prescribed N/A Yes Has offloadiing in place as prescribed N/A Experienced any changes in pain level or No No management Left Footwear Regular Shoe Right Footwear Regular Shoe Pain Scale: 0-10 Numeric Is Patient Pain Free? Yes No hemorrhoid -Description Throbbing, Burning -Intensity 10 -Duration (hours) Acute -Pain Behavior Facial Grimacing -Pain Aggravating Factors Sitting -Alleviating Factors/Interventions Turning/ Repositioning, Distraction, Will continue to monitor, Patient denies need for intervention, Emotional Support WC - Nurse 1 - General Ulcer Measurement Start: 12/12/22 10:28 Freq: Status: Active Protocol: Activity Type Activity Date Activity User E-sign Co-sign Detail Recorded Client Recorded Date Recorded By Document 12/12/22 10:29 DL [id number] 12/12/22 10:40 DL Document 12/19/22 10:54 [facility] [id number] 12/19/22 11:03 BMF 12/12/22 12/19/22 10:29 10:54 Wound Center Nurse 1 10. R medial thigh -Combined with other wound No -Current Size (cm) - Length 19.2 22.4 -Current Size (cm) - Width 14 12.5 -Current Size (cm) - Depth 0.1 0.1 -Total Square Cm 268.8 280.00 -Date of Last Picture (Recall this 12/19/22 field) -Photo Taken Yes Yes -Epithelialization Small 1-33% -Tunneling No -Undermining/Tunneling No -Circular Undermining No -Exudate Amt Large Large -Exudate Type Yellow/Green Serosanguineous -Wound Margin Distinct, Distinct, Outline Outline Attached Attached -Granulation Amt Large (67-100%) Large (67-100%) -Granulation Quality Red Red -Slough/Fibrin Yes -Necrosis Amt Small (1-33%) Small (1-33%) -Necrotic Tissue Type Adherent Slough Adherent Slough -Structure Exposed N/A -Texture (Josephine-wound Skin Appearance) Scarring Assessed, Scarring -Moisture (Josephine-wound Skin Appearance) No Abnormality Assessed -Color (Josephine-wound Skin Appearance) No Abnormality Assessed -Temperature (Josephine-wound Skin No Abnormality No Abnormality Appearance) (Pt Warm) (Pt Warm) -Tenderness on Palpation (Josephine-wound No No Skin Appearance) -Ulcer Cleansing Soap and Water Soap and Water -Foul Odor after Cleansing No No -Anesthetic Used 4% Lidocaine 4% Lidocaine Solution Solution ACOSTA - Nurse 2 - General Ulcer CM Notes Start: 12/12/22 10:28 Freq: Status: Active Protocol: Activity Type Activity Date Activity User E-sign Co-sign Detail Recorded Client Recorded Date Recorded By Document 12/12/22 10:58 [id number] 12/12/22 11:04 Document 12/19/22 11:12 [id number] 12/19/22 11:28 12/12/22 12/19/22 10:58 11:12 Wound Center Nurse 2 10. R medial thigh -Time 10:58 11:12 -Correct Patient Yes Yes -Correct Side, Site, Position Yes Yes -Correct Procedure Yes Yes -Procedure Performed Yes Yes -Type of Procedure Debridement Debridement -Clinical Debridement Subcutaneous Subcutaneous -Tissue Removed Subcutaneous Subcutaneous -Post Debridement (cm) - Length 15.5 13.5 -Post Debridement (cm) - Width 15.2 18.5 -Post Debridement (cm) - Depth 0.3 0.1 -Total Square (Post) (cm) 235.60 249.75 -Area of Debridement (cm) - Length 15.5 13.5 -Area of Debridement (cm) - Width 15.2 18.5 -Total Square (Area) (cm) 235.60 249.75 -Tunneling No Yes -Undermining/Tunneling No Yes -Circular Undermining No No -Wound/Ulcer Outcome Not Healed Not Healed -Ulcer Cleansing Rinsed/ Rinsed/ Irrigated with Irrigated with Saline Saline -Foul Odor after Cleansing No No -Bioengineered Tissue No No -Bleeding Controlled with Pressure Pressure -Treatment Response Procedure Procedure Tolerated Well Tolerated Well -Offloading No No -Debridement - Subq, 1st 20sq cm Yes Yes -Debridement, SubQ, ea addt'l 20sq cm 11 12 or part thereof Pain Scale: 0-10 Numeric Is Patient Pain Free? Yes Yes ACOSTA - Nurse 3 - General Ulcer D/C NN Start: 12/12/22 10:28 Freq: Status: Active Protocol: Activity Type Activity Date Activity User E-sign Co-sign Detail Recorded Client Recorded Date Recorded By Document 12/12/22 11:14 DL [id number] 12/12/22 11:16 DL 12/12/22 11:14 Wound Care Center Nurse 3 10. R medial thigh -Ulcer Cleansing Soap and Water -Foul Odor after Cleansing No -Primary Dressing Applied Silvercel -Primary Dressing Covered/Secured with Dry Gauze, Secured with Tape -Silvercel 1 Treatment Response Procedure Tolerated Well Pain Scale: 0-10 Numeric Is Patient Pain Free? Yes WC - Visit Discharge Discharge Condition Stable Transportation Private Auto Medication Reconcilliation completed & Yes provided to patient/care provider Assessment/Plan Assessment/Plan (1) Nonhealing ulcer of right lower extremity with fat layer exposed: CODE(S): L97.912 - Non-pressure chronic ulcer of unspecified part of right lower leg with fat layer exposed (2) Acute postoperative anemia due to expected blood loss: CODE(S): D62 - Acute posthemorrhagic anemia (3) Edema of both lower extremities: CODE(S): R60.0 - Localized edema (4) Chronic acquired lymphedema: CODE(S): I89.0 - Lymphedema, not elsewhere classified (5) Excessive and redundant skin and subcutaneous tissue: CODE(S): L98.7 - Excessive and redundant skin and subcutaneous tissue (6) Intertrigo: CODE(S): L30.4 - Erythema intertrigo (7) Morbid obesity: CODE(S): E66.01 - Morbid (severe) obesity due to excess calories (8) Excessive body weight loss: CODE(S): R63.4 - Abnormal weight loss (9) History of bariatric surgery: CODE(S): Z98.84 - Bariatric surgery status (10) History of excision of mass: CODE(S): Z98.890 - Other specified postprocedural states (11) Former smoker: CODE(S): Z87.891 - Personal history of nicotine dependence (12) Other acute postprocedural pain: CODE(S): G89.18 - Other acute postprocedural pain PLAN: Plan Patient evaluated at the wound healing center today. Wound care - Right medial leg ulcer sliver alginate topped with ABD or silicone boarder foam dressing daily and as needed after washing ulcer and josephine wound with soap and water. He wears an GRACIA wrap or abdominal binder around his right thigh for compression. He would benefit from home compression pumps for his lymphedema but he needs to have vascular studies which have been ordered in the past but he has never obtained. Hgb 8.8 on 10/25/22 He finally obtained the CBC recheck on 12/12/22, Hgb 10.5. He is to continue the iron supplementation. Prealbumin 21.9 on 10/06/22. Encouraged increase in protein intake to help with wound healing. For his discomfort from his hemorrhoids, encouraged increase water and fiber intake. Sitz bath with a portable one that sits on the Toilet, may use wipes or witch segundo pads. If symptoms do not improve, follow up with PCP for further evaluation. Follow up 1 week.
[2022-12-26 10:52] VITALS: BP 136/87; PULSE 75; RESP 22; TEMP 35.7; BMI 57.7
--- NOTE | 2022-12-26 12:08 | PN.PCM_ITS ---
History of Present Illness Date of Service: 12/26/22 Chief Complaint: Nonhealing ulcer left medial thigh. History of Wound: 47 year old man presents with areas of redundant skin and subcutaneous tissue in his bilateral medial thighs and abdominal panniculus with associated panniculitis. There is abdominal wall skin crease intertrigo and bilateral medial thigh intertrigo for which he uses powders for relief. This excess skin and subcutaneous tissue was the result of bariatric surgery done in [place] in May,. He lost about 250 lbs and his current weight is about 440 lbs. He has a history of lower extremity lymphedema resulting from the extreme body weight and has persistent dependent edema in his medial thighs which aggravates his symptomatology. He denies trauma. He denies fever. Both areas bother him but the medial thighs are his initial priority as he has trouble with ambulating. We received medical approval from his insurance company for his thigh surgery. Surgery 09/22/20 - Excision redundant skin and subcutaneous tissue left medial and posterior thigh with dermolipectomy. Surgery 10/05/22 - Surgical preparation right medial and posterior thigh with excision redundant skin and subcutaneous tissue with radical dermolipectomy. He went to [facility] for almost a month, he had a wound VAC while he was at [facility]. Hgb 8.7 on . Repeat Hgb 8.8 on 10/25/22 at [facility]. On iron supplementation but with his history of gastric bypass, that may impact his abso rption of the iron. Rechecked on 12/12/22 Hgb 10.5. Wound care - Silver alginate covered with ABDs daily and as needed. Today he denies fever and chills and states his appetite is good. Progress of Wound: Right medial leg ulcer is beefy pink, it is getting smaller. He continues to have swelling of his right leg around the proximal lower leg and knee area. He discomfort he was experiencing last week from hemorrhoids has resolved. Objective Data Objective Data Vital Signs: Vital Signs Temp Pulse Resp BP O2 Del Method 96.3 F L 75 22 H 136/87 H Room Air 12/26/22 10:52 12/26/22 10:52 12/26/22 10:52 12/26/22 10:52 12/19/22 10:54 Oxygen Delivery Method Room Air Weight: 500 lb Body Mass Index (BMI) 57.7 Lab / Micro Data Result Diagrams: 12/12/22 11:35 Charges/Coding Procedures Integumentary 111xxx-113xx: 99855 Global Visit Debridement Note Debridement Note Wound debrided: Right medial thigh ulcer Laterality: Right Wound Grade/Stage: Stage IV Type of Debridement: Excisional debridement Anesthesia Used: 5% Lidocaine Gel Depth: Down to and including healthy tissue and in the subcutaneous layer Percentage of wound debrided: 100 Instrument Used: 7mm curette Tissue Removed: Devitalized tissue and slough Severity: Fat Layer Exposed Amount of bleeding with debridement: Moderate Bleeding Controlled with: Pressure and Compression and gauze Patient tolerated procedure: Patient tolerated procedure well Post-Debridement Measurements and Additional Note: Post-Debridement Measurements/Treatment - Nurse 1 - General Ulcer Assessment Start: 12/12/22 10:28 Freq: Status: Active Protocol: WILLIAM Activity Type Activity Date Activity User E-sign Co-sign Detail Recorded Client Recorded Date Recorded By Document 12/12/22 10:29 DL [id number] 12/12/22 10:40 DL Document 12/19/22 10:54 [facility] [id number] 12/19/22 11:03 BMF Document 12/26/22 10:52 DL [id number] 12/26/22 11:04 DL 12/12/22 12/19/22 12/26/22 10:29 10:54 10:52 - Today's Visit Information Type of service Follow-up Visit Follow-up Visit 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/CERTIFIED MASSAGE THERAPIST (Physician/CERTIFIED MASSAGE THERAPIST (Physician/CERTIFIED MASSAGE THERAPIST ) ) ) Arrival Mode Ambulatory Ambulatory Ambulatory Transfer Assistance None None None Patient Identification Verified (Name & Yes Yes Yes ) Patient Requires Transmission-Based No No No Precautions Height and Weight Body Mass Index (BMI) 57.7 57.7 57.7 BMI Classification Obese Obese Obese Vital Signs Temperature (97.8 F-99.1 F) 97.4 F L 96.7 F L 96.3 F L Temperature Source Temporal Temporal Temporal Pulse Rate (60-100) 79 70 75 Pulse Location Monitor Monitor Monitor Respiratory Rate (12-18) 22 H 16 22 H Respiratory rate source Observation Observation Observation Oxygen Delivery Method Room Air Blood Pressure (90/60-120/80) 171/97 H 156/100 H 136/87 H Blood Pressure Mean (mm Hg) 121 118 103 Source Monitor Monitor Monitor Position Sitting Blood Pressure Location Left Arm History Since Last Visit- (Skip if this is Patient's initial visit) Have you changed medications since your No No No last visit? Any new allergies or adverse reactions No No No Had a fall/change in ADL's that may No No No increase risk of falls Signs or symptoms of abuse and/or No No No neglect since last visit Have you been in the hospital since your No No No last visit? Has dressing in place as prescribed Yes Yes Yes Has compression in place as prescribed N/A Yes Yes Has offloadiing in place as prescribed N/A N/A Experienced any changes in pain level or No No No management Left Footwear Regular Shoe Right Footwear Regular Shoe Pain Scale: 0-10 Numeric Is Patient Pain Free? Yes No Yes hemorrhoid -Description Throbbing, Burning -Intensity 10 -Duration (hours) Acute -Pain Behavior Facial Grimacing -Pain Aggravating Factors Sitting -Alleviating Factors/Interventions Turning/ Repositioning, Distraction, Will continue to monitor, Patient denies need for intervention, Emotional Support WC - Nurse 1 - General Ulcer Measurement Start: 12/12/22 10:28 Freq: Status: Active Protocol: Activity Type Activity Date Activity User E-sign Co-sign Detail Recorded Client Recorded Date Recorded By Document 12/12/22 10:29 [id number] 12/12/22 10:40 Document 12/19/22 10:54 [facility] [id number] 12/19/22 11:03 [facility] Document 12/26/22 10:52 DL [id number] 12/26/22 11:04 DL 12/12/22 12/19/22 12/26/22 10:29 10:54 10:52 Wound Center Nurse 1 10. R medial thigh -Combined with other wound No -Current Size (cm) - Length 19.2 22.4 18.4 -Current Size (cm) - Width 14 12.5 11 -Current Size (cm) - Depth 0.1 0.1 0.1 -Total Square Cm 268.8 280.00 202.4 -Date of Last Picture (Recall this 12/19/22 field) -Photo Taken Yes Yes Yes -Epithelialization Small 1-33% -Tunneling No -Undermining/Tunneling No -Circular Undermining No -Exudate Amt Large Large Medium -Exudate Type Yellow/Green Serosanguineous Serosanguineous -Wound Margin Distinct, Distinct, Thickened & Outline Outline Rolled Under Attached Attached -Granulation Amt Large (67-100%) Large (67-100%) Large (67-100%) -Granulation Quality Red Red Red -Slough/Fibrin Yes -Necrosis Amt Small (1-33%) Small (1-33%) Small (1-33%) -Necrotic Tissue Type Adherent Slough Adherent Slough Adherent Slough -Structure Exposed N/A N/A -Texture (Josephine-wound Skin Appearance) Scarring Assessed, Scarring Scarring -Moisture (Josephine-wound Skin Appearance) No Abnormality Assessed No Abnormality -Color (Josephine-wound Skin Appearance) No Abnormality Assessed No Abnormality -Temperature (Josephine-wound Skin No Abnormality No Abnormality No Abnormality Appearance) (Pt Warm) (Pt Warm) (Pt Warm) -Tenderness on Palpation (Josephine-wound No No No Skin Appearance) -Ulcer Cleansing Soap and Water Soap and Water Soap and Water -Foul Odor after Cleansing No No No -Anesthetic Used 4% Lidocaine 4% Lidocaine 5% Lidocaine Solution Solution Gel WC - Nurse 2 - General Ulcer CM Notes Start: 12/12/22 10:28 Freq: Status: Active Protocol: Activity Type Activity Date Activity User E-sign Co-sign Detail Recorded Client Recorded Date Recorded By Document 12/12/22 10:58 [id number] 12/12/22 11:04 Document 12/19/22 11:12 [id number] 12/19/22 11:28 Document 12/26/22 11:20 [id number] 12/26/22 11:24 12/12/22 12/19/22 12/26/22 10:58 11:12 11:20 Wound Center Nurse 2 10. R medial thigh -Time 10:58 11:12 11:21 -Correct Patient Yes Yes Yes -Correct Side, Site, Position Yes Yes Yes -Correct Procedure Yes Yes Yes -Procedure Performed Yes Yes Yes -Type of Procedure Debridement Debridement Debridement -Clinical Debridement Subcutaneous Subcutaneous Subcutaneous -Tissue Removed Subcutaneous Subcutaneous Subcutaneous -Post Debridement (cm) - Length 15.5 13.5 14.2 -Post Debridement (cm) - Width 15.2 18.5 14.7 -Post Debridement (cm) - Depth 0.3 0.1 0.2 -Total Square (Post) (cm) 235.60 249.75 208.74 -Area of Debridement (cm) - Length 15.5 13.5 14.2 -Area of Debridement (cm) - Width 15.2 18.5 14.7 -Total Square (Area) (cm) 235.60 249.75 208.74 -Tunneling No Yes No -Undermining/Tunneling No Yes No -Circular Undermining No No No -Wound/Ulcer Outcome Not Healed Not Healed Not Healed -Ulcer Cleansing Rinsed/ Rinsed/ Rinsed/ Irrigated with Irrigated with Irrigated with Saline Saline Saline -Foul Odor after Cleansing No No No -Bioengineered Tissue No No No -Bleeding Controlled with Pressure Pressure Pressure -Treatment Response Procedure Procedure Procedure Tolerated Well Tolerated Well Tolerated Well -Offloading No No No -Debridement - Subq, 1st 20sq cm Yes Yes Yes -Debridement, SubQ, ea addt'l 20sq cm 11 12 10 or part thereof Pain Scale: 0-10 Numeric Is Patient Pain Free? Yes Yes Yes - Nurse 3 - General Ulcer D/C NN Start: 12/12/22 10:28 Freq: Status: Active Protocol: Activity Type Activity Date Activity User E-sign Co-sign Detail Recorded Client Recorded Date Recorded By Document 12/12/22 11:14 DL [id number] 12/12/22 11:16 DL Document 12/19/22 11:35 RB [id number] 12/19/22 11:36 RB Document 12/26/22 11:41 [facility] [id number] 12/26/22 11:43 [facility] 12/12/22 12/19/22 12/26/22 11:14 11:35 11:41 Wound Care Center Nurse 3 10. R medial thigh -Ulcer Cleansing Soap and Water Rinsed/ Rinsed/ Irrigated with Irrigated with Saline Saline -Foul Odor after Cleansing No No -Primary Dressing Applied Silvercel Silvercel, Aquacel AG 4x4, Mepilex Border Mepilex Border -Other Dressing abd and desmond ABD X2 -Primary Dressing Covered/Secured with Dry Gauze, Dry Gauze, Secured with Secured with Secured with Tape Tape Tape -Aquacel AG 4x4 1 -Mepilex Border 1 1 -Silvercel 1 2 Right -Compression Wrap Desmond Wrap Treatment Response Procedure Procedure Tolerated Well Tolerated Well Pain Scale: 0-10 Numeric Is Patient Pain Free? Yes Yes Yes WC - Visit Discharge Discharge Condition Stable Stable Stable Ambulatory Status Ambulatory Ambulatory Transportation Private Auto Private Auto Private Auto Medication Reconcilliation completed & Yes No provided to patient/care provider Clinical Summary of Care Provided Yes Assessment/Plan Assessment/Plan (1) Nonhealing ulcer of right lower extremity with fat layer exposed: CODE(S): L97.912 - Non-pressure chronic ulcer of unspecified part of right lower leg with fat layer exposed (2) Acute postoperative anemia due to expected blood loss: CODE(S): D62 - Acute posthemorrhagic anemia (3) Edema of both lower extremities: CODE(S): R60.0 - Localized edema (4) Chronic acquired lymphedema: CODE(S): I89.0 - Lymphedema, not elsewhere classified (5) Excessive and redundant skin and subcutaneous tissue: CODE(S): L98.7 - Excessive and redundant skin and subcutaneous tissue (6) Intertrigo: CODE(S): L30.4 - Erythema intertrigo (7) Morbid obesity: CODE(S): E66.01 - Morbid (severe) obesity due to excess calories (8) Excessive body weight loss: CODE(S): R63.4 - Abnormal weight loss (9) History of bariatric surgery: CODE(S): Z98.84 - Bariatric surgery status (10) History of excision of mass: CODE(S): Z98.890 - Other specified postprocedural states (11) Former smoker: CODE(S): Z87.891 - Personal history of nicotine dependence (12) Other acute postprocedural pain: CODE(S): G89.18 - Other acute postprocedural pain PLAN: Plan Patient evaluated at the wound healing center today. Wound care - Right medial leg ulcer sliver alginate topped with ABD or silicone boarder foam dressing daily and as needed after washing ulcer and josephine wound with soap and water. He wears an DESMOND wrap or abdominal binder around his right thigh for compression. He would benefit from home compression pumps for his lymphedema but he needs to have vascular studies which have been ordered in the past but he has never obtained. Encouraged him to have the studies done and he states he will think about it. Hgb 8.8 on 10/25/22 He finally obtained the CBC recheck on 12/12/22, Hgb 10.5. He is to continue the iron supplementation. Prealbumin 21.9 on 10/06/22. Encouraged increase in protein intake to help with wound healing. Follow up 1 week.
[2023-01-02 11:34] VITALS: BP 144/96; PULSE 75; RESP 18; TEMP 36.2; BMI 57.7
--- NOTE | 2023-01-02 12:27 | PCM.WC.PN ---
History of Present Illness Date of Service: 01/02/23 Chief Complaint: Nonhealing ulcer left medial thigh. History of Wound: 47 year old man presents with areas of redundant skin and subcutaneous tissue in his bilateral medial thighs and abdominal panniculus with associated panniculitis. There is abdominal wall skin crease intertrigo and bilateral medial thigh intertrigo for which he uses powders for relief. This excess skin and subcutaneous tissue was the result of bariatric surgery done in [place] in May,. He lost about 250 lbs and his current weight is about 440 lbs. He has a history of lower extremity lymphedema resulting from the extreme body weight and has persistent dependent edema in his medial thighs which aggravates his symptomatology. He denies trauma. He denies fever. Both areas bother him but the medial thighs are his initial priority as he has trouble with ambulating. We received medical approval from his insurance company for his thigh surgery. Surgery 09/22/20 - Excision redundant skin and subcutaneous tissue left medial and posterior thigh with dermolipectomy. Surgery 10/05/22 - Surgical preparation right medial and posterior thigh with excision redundant skin and subcutaneous tissue with radical dermolipectomy. He went to [facility] for almost a month, he had a wound VAC while he was at [facility]. Hgb 8.7 on . Repeat Hgb 8.8 on 10/25/22 at [facility]. On iron supplementation but with his history of gastric bypass, that may impact his absorption of the iron. Rechecked on 12/12/22 Hgb 10.5. Wound care - Silver alginate covered with ABDs daily and as needed. Today he denies fever and chills and states his appetite is good. Progress of Wound: Right medial leg ulcer is beefy pink, it is getting smaller. He continues to have swelling of his right leg around the proximal lower leg and knee area. Objective Data Objective Data Vital Signs: Vital Signs Temp Pulse Resp BP O2 Del Method 97.2 F L 75 18 144/96 H Room Air 01/02/23 11:34 01/02/23 11:34 01/02/23 11:34 01/02/23 11:34 01/02/23 11:34 Oxygen Delivery Method Room Air Weight: 500 lb Body Mass Index (BMI) 57.7 Lab / Micro Data Result Diagrams: 12/12/22 11:35 Charges/Coding Procedures Integumentary [id number]: [id number] Global Visit Debridement Note Debridement Note Wound debrided: Right medial thigh ulcer Laterality: Right Wound Grade/Stage: Stage IV Type of Debridement: Excisional debridement Anesthesia Used: 5% Lidocaine Gel Depth: Down to and including healthy tissue and in the subcutaneous layer Percentage of wound debrided: 100 Instrument Used: 7mm curette Tissue Removed: Devitalized tissue and slough Severity: Fat Layer Exposed Amount of bleeding with debridement: Moderate Bleeding Controlled with: Pressure and Compression and gauze Patient tolerated procedure: Patient tolerated procedure well Post-Debridement Measurements and Additional Note: Post-Debridement Measurements/Treatment - Nurse 1 - General Ulcer Assessment Start: 12/12/22 10:28 Freq: Status: Active Protocol: WILLIAM Activity Type Activity Date Activity User E-sign Co-sign Detail Recorded Client Recorded Date Recorded By Document 12/12/22 10:29 DL [id number] 12/12/22 10:40 DL Document 12/19/22 10:54 [facility] [id number] 12/19/22 11:03 BMF Document 12/26/22 10:52 DL [id number] 12/26/22 11:04 DL Document 01/02/23 11:34 [facility] [id number] 01/02/23 11:43 BMF 12/12/22 12/19/22 12/26/22 10:29 10:54 10:52 - Today's Visit Information Type of service Follow-up Visit Follow-up Visit 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/DEEP SUBMERGENCE [employer] CREWMEMBER (Physician/DEEP SUBMERGENCE VEHICLE CREWMEMBER (Physician/DEEP SUBMERGENCE [employer]HICLE CREWMEMBER ) ) ) Arrival Mode Ambulatory Ambulatory Ambulatory Transfer Assistance None None None Patient Identification Verified (Name & Yes Yes Yes ) Patient Requires Transmission-Based No No No Precautions Height and Weight Body Mass Index (BMI) 57.7 57.7 57.7 BMI Classification Obese Obese Obese Vital Signs Temperature (97.8 F-99.1 F) 97.4 F L 96.7 F L 96.3 F L Temperature Source Temporal Temporal Temporal Pulse Rate (60-100) 79 70 75 Pulse Location Monitor Monitor Monitor Respiratory Rate (12-18) 22 H 16 22 H Respiratory rate source Observation Observation Observation Oxygen Delivery Method Room Air Blood Pressure (90/60-120/80) 171/97 H 156/100 H 136/87 H Blood Pressure Mean (mm Hg) 121 118 103 Source Monitor Monitor Monitor Position Sitting Blood Pressure Location Left Arm History Since Last Visit- (Skip if this is Patient's initial visit) Have you changed medications since your No No No last visit? Any new allergies or adverse reactions No No No Had a fall/change in ADL's that may No No No increase risk of falls Signs or symptoms of abuse and/or No No No neglect since last visit Have you been in the hospital since your No No No last visit? Has dressing in place as prescribed Yes Yes Yes Has compression in place as prescribed N/A Yes Yes Has offloadiing in place as prescribed N/A N/A Experienced any changes in pain level or No No No management Left Footwear Regular Shoe Right Footwear Regular Shoe Pain Scale: 0-10 Numeric Is Patient Pain Free? Yes No Yes hemorrhoid -Description Throbbing, Burning -Intensity 10 -Duration (hours) Acute -Pain Behavior Facial Grimacing -Pain Aggravating Factors Sitting -Alleviating Factors/Interventions Turning/ Repositioning, Distraction, Will continue to monitor, Patient denies need for intervention, Emotional Support 01/02/23 11:34 WC - Today's Visit Information Type of service 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/DEEP SUBMERGENCE [employer]BER ) Arrival Mode Ambulatory Transfer Assistance None Patient Identification Verified (Name & Yes ) Patient Requires Transmission-Based No Precautions Height and Weight Body Mass Index (BMI) 57.7 BMI Classification Obese Vital Signs Temperature (97.8 F-99.1 F) 97.2 F L Temperature Source Temporal Pulse Rate (60-100) 75 Pulse Location Monitor Respiratory Rate (12-18) 18 Respiratory rate source Observation Oxygen Delivery Method Room Air Blood Pressure (90/60-120/80) 144/96 H Blood Pressure Mean (mm Hg) 112 Source Monitor Position Sitting Blood Pressure Location Left Arm History Since Last Visit- (Skip if this is Patient's initial visit) Have you changed medications since your No last visit? Any new allergies or adverse reactions No Had a fall/change in ADL's that may No increase risk of falls Signs or symptoms of abuse and/or No neglect since last visit Have you been in the hospital since your No last visit? Has dressing in place as prescribed Yes Has compression in place as prescribed Yes Has offloadiing in place as prescribed N/A Experienced any changes in pain level or No management Left Footwear Regular Shoe Right Footwear Regular Shoe Pain Scale: 0-10 Numeric Is Patient Pain Free? Yes hemorrhoid -Description -Intensity -Duration (hours) -Pain Behavior -Pain Aggravating Factors -Alleviating Factors/Interventions WC - Nurse 1 - General Ulcer Measurement Start: 12/12/22 10:28 Freq: Status: Active Protocol: Activity Type Activity Date Activity User E-sign Co-sign Detail Recorded Client Recorded Date Recorded By Document 12/12/22 10:29 DL [id number] 12/12/22 10:40 DL Document 12/19/22 10:54 BMF [id number] 12/19/22 11:03 BMF Document 12/26/22 10:52 DL [id number] 12/26/22 11:04 DL Document 01/02/23 11:34 BMF [id number] 01/02/23 11:43 BMF 12/12/22 12/19/22 12/26/22 10:29 10:54 10:52 Wound Center Nurse 1 10. R medial thigh -Combined with other wound No -Current Size (cm) - Length 19.2 22.4 18.4 -Current Size (cm) - Width 14 12.5 11 -Current Size (cm) - Depth 0.1 0.1 0.1 -Total Square Cm 268.8 280.00 202.4 -Date of Last Picture (Recall this 12/19/22 field) -Photo Taken Yes Yes Yes -Epithelialization Small 1-33% -Tunneling No -Undermining/Tunneling No -Circular Undermining No -Exudate Amt Large Large Medium -Exudate Type Yellow/Green Serosanguineous Serosanguineous -Wound Margin Distinct, Distinct, Thickened & Outline Outline Rolled Under Attached Attached -Granulation Amt Large (67-100%) Large (67-100%) Large (67-100%) -Granulation Quality Red Red Red -Slough/Fibrin Yes -Necrosis Amt Small (1-33%) Small (1-33%) Small (1-33%) -Necrotic Tissue Type Adherent Slough Adherent Slough Adherent Slough -Structure Exposed N/A N/A -Texture (Josephine-wound Skin Appearance) Scarring Assessed, Scarring Scarring -Moisture (Josephine-wound Skin Appearance) No Abnormality Assessed No Abnormality -Color (Josephine-wound Skin Appearance) No Abnormality Assessed No Abnormality -Temperature (Josephine-wound Skin No Abnormality No Abnormality No Abnormality Appearance) (Pt Warm) (Pt Warm) (Pt Warm) -Tenderness on Palpation (Josephine-wound No No No Skin Appearance) -Ulcer Cleansing Soap and Water Soap and Water Soap and Water -Foul Odor after Cleansing No No No -Anesthetic Used 4% Lidocaine 4% Lidocaine 5% Lidocaine Solution Solution Gel 01/02/23 11:34 Wound Center Nurse 1 10. R medial thigh -Combined with other wound No -Current Size (cm) - Length 20 -Current Size (cm) - Width 11.8 -Current Size (cm) - Depth 0.1 -Total Square Cm 236.0 -Date of Last Picture (Recall this 01/02/23 field) -Photo Taken Yes -Epithelialization None Present -Tunneling No -Undermining/Tunneling No -Circular Undermining No -Exudate Amt Large -Exudate Type Serosanguineous -Wound Margin Distinct, Outline Attached -Granulation Amt Medium (34-66%) -Granulation Quality Red -Slough/Fibrin Yes -Necrosis Amt Medium (34-66%) -Necrotic Tissue Type Adherent Slough -Structure Exposed -Texture (Josephine-wound Skin Appearance) Assessed, Scarring -Moisture (Josephine-wound Skin Appearance) Assessed -Color (Josephine-wound Skin Appearance) Assessed -Temperature (Josephine-wound Skin No Abnormality Appearance) (Pt Warm) -Tenderness on Palpation (Josephine-wound No Skin Appearance) -Ulcer Cleansing Soap and Water -Foul Odor after Cleansing No -Anesthetic Used 4% Lidocaine Solution WC - Nurse 2 - General Ulcer CM Notes Start: 12/12/22 10:28 Freq: Status: Active Protocol: Activity Type Activity Date Activity User E-sign Co-sign Detail Recorded Client Recorded Date Recorded By Document 12/12/22 10:58 JOHN [id number] 12/12/22 11:04 Document 12/19/22 11:12 JF [id number] 12/19/22 11:28 Document 12/26/22 11:20 [id number] 12/26/22 11:24 Document 01/02/23 12:00 [id number] 01/02/23 12:05 JF 12/12/22 12/19/22 12/26/22 10:58 11:12 11:20 Wound Center Nurse 2 10. R medial thigh -Time 10:58 11:12 11:21 -Correct Patient Yes Yes Yes -Correct Side, Site, Position Yes Yes Yes -Correct Procedure Yes Yes Yes -Procedure Performed Yes Yes Yes -Type of Procedure Debridement Debridement Debridement -Clinical Debridement Subcutaneous Subcutaneous Subcutaneous -Tissue Removed Subcutaneous Subcutaneous Subcutaneous -Post Debridement (cm) - Length 15.5 13.5 14.2 -Post Debridement (cm) - Width 15.2 18.5 14.7 -Post Debridement (cm) - Depth 0.3 0.1 0.2 -Total Square (Post) (cm) 235.60 249.75 208.74 -Area of Debridement (cm) - Length 15.5 13.5 14.2 -Area of Debridement (cm) - Width 15.2 18.5 14.7 -Total Square (Area) (cm) 235.60 249.75 208.74 -Tunneling No Yes No -Undermining/Tunneling No Yes No -Circular Undermining No No No -Wound/Ulcer Outcome Not Healed Not Healed Not Healed -Ulcer Cleansing Rinsed/ Rinsed/ Rinsed/ Irrigated with Irrigated with Irrigated with Saline Saline Saline -Foul Odor after Cleansing No No No -Bioengineered Tissue No No No -Bleeding Controlled with Pressure Pressure Pressure -Treatment Response Procedure Procedure Procedure Tolerated Well Tolerated Well Tolerated Well -Offloading No No No -Debridement - Subq, 1st 20sq cm Yes Yes Yes -Debridement, SubQ, ea addt'l 20sq cm 11 12 10 or part thereof Pain Scale: 0-10 Numeric Is Patient Pain Free? Yes Yes Yes 01/02/23 12:00 Wound Center Nurse 2 10. R medial thigh -Time 12:01 -Correct Patient Yes -Correct Side, Site, Position Yes -Correct Procedure Yes -Procedure Performed Yes -Type of Procedure Debridement -Clinical Debridement Subcutaneous -Tissue Removed Subcutaneous -Post Debridement (cm) - Length 12.4 -Post Debridement (cm) - Width 17 -Post Debridement (cm) - Depth 0.1 -Total Square (Post) (cm) 210.8 -Area of Debridement (cm) - Length 12.4 -Area of Debridement (cm) - Width 17 -Total Square (Area) (cm) 210.8 -Tunneling No -Undermining/Tunneling No -Circular Undermining No -Wound/Ulcer Outcome Not Healed -Ulcer Cleansing Rinsed/ Irrigated with Saline -Foul Odor after Cleansing No -Bioengineered Tissue No -Bleeding Controlled with Pressure -Treatment Response Procedure Tolerated Well -Offloading No -Debridement - Subq, 1st 20sq cm Yes -Debridement, SubQ, ea addt'l 20sq cm 10 or part thereof Pain Scale: 0-10 Numeric Is Patient Pain Free? Yes - Nurse 3 - General Ulcer D/C NN Start: 12/12/22 10:28 Freq: Status: Active Protocol: Activity Type Activity Date Activity User E-sign Co-sign Detail Recorded Client Recorded Date Recorded By Document 12/12/22 11:14 DL [id number] 12/12/22 11:16 DL Document 12/19/22 11:35 RB [id number] 12/19/22 11:36 RB Document 12/26/22 11:41 [facility] [id number] 12/26/22 11:43 BMF Document 01/02/23 12:18 BM [id number] 01/02/23 12:18 BMF 12/12/22 12/19/22 12/26/22 11:14 11:35 11:41 Wound Care Center Nurse 3 10. R medial thigh -Ulcer Cleansing Soap and Water Rinsed/ Rinsed/ Irrigated with Irrigated with Saline Saline -Foul Odor after Cleansing No No -Primary Dressing Applied Silvercel Silvercel, Aquacel AG 4x4, Mepilex Border Mepilex Border -Other Dressing abd and desmond ABD X2 -Primary Dressing Covered/Secured with Dry Gauze, Dry Gauze, Secured with Secured with Secured with Tape Tape Tape -Aquacel AG 4x4 1 -Mepilex Border 1 1 -Silvercel 1 2 Right -Compression Wrap Desmond Wrap Treatment Response Procedure Procedure Tolerated Well Tolerated Well Pain Scale: 0-10 Numeric Is Patient Pain Free? Yes Yes Yes - Visit Discharge Discharge Condition Stable Stable Stable Ambulatory Status Ambulatory Ambulatory Transportation Private Auto Private Auto Private Auto Medication Reconcilliation completed & Yes No provided to patient/care provider Clinical Summary of Care Provided Yes 01/02/23 12:18 Wound Care Center Nurse 3 10. R medial thigh -Ulcer Cleansing Rinsed/ Irrigated with Saline -Foul Odor after Cleansing No -Primary Dressing Applied Silvercel -Other Dressing ABD PADS -Primary Dressing Covered/Secured with Secured with Tape -Aquacel AG 4x4 -Mepilex Border -Silvercel 2 Right -Compression Wrap Desmond Wrap Treatment Response Procedure Tolerated Well Pain Scale: 0-10 Numeric Is Patient Pain Free? Yes WC - Visit Discharge Discharge Condition Stable Ambulatory Status Ambulatory Transportation Private Auto Medication Reconcilliation completed & provided to patient/care provider Clinical Summary of Care Provided Assessment/Plan Assessment/Plan (1) Nonhealing ulcer of right lower extremity with fat layer exposed: CODE(S): L97.912 - Non-pressure chronic ulcer of unspecified part of right lower leg with fat layer exposed (2) Acute postoperative anemia due to expected blood loss: CODE(S): D62 - Acute posthemorrhagic anemia (3) Edema of both lower extremities: CODE(S): R60.0 - Localized edema (4) Chronic acquired lymphedema: CODE(S): I89.0 - Lymphedema, not elsewhere classified (5) Excessive and redundant skin and subcutaneous tissue: CODE(S): L98.7 - Excessive and redundant skin and subcutaneous tissue (6) Intertrigo: CODE(S): L30.4 - Erythema intertrigo (7) Morbid obesity: CODE(S): E66.01 - Morbid (severe) obesity due to excess calories (8) Excessive body weight loss: CODE(S): R63.4 - Abnormal weight loss (9) History of bariatric surgery: CODE(S): Z98.84 - Bariatric surgery status (10) History of excision of mass: CODE(S): Z98.890 - Other specified postprocedural states (11) Former smoker: CODE(S): Z87.891 - Personal history of nicotine dependence (12) Other acute postprocedural pain: CODE(S): G89.18 - Other acute postprocedural pain PLAN: Plan Patient evaluated at the wound healing center today. Wound care - Right medial leg ulcer sliver alginate topped with ABD or silicone boarder foam dressing daily and as needed after washing ulcer and josephine wound with soap and water. He wears an DESMOND wrap or abdominal binder around his right thigh for compression. He would benefit from home compression pumps for his lymphedema but he needs to have vascular studies which have been ordered in the past but he has never obtained. Encouraged him to have the studies done and he states he will think about it. Hgb 8.8 on 10/25/22 He finally obtained the CBC recheck on 12/12/22, Hgb 10.5. He is to continue the iron supplementation. Prealbumin 21.9 on 10/06/22. Encouraged increase in protein intake to help with wound healing. Follow up 1 week.
== END 2023-01-08 23:59 | disposition home or self-care (01) ==
LOC: WC 11:15
PROVIDERS: PCP Internal Medicine; Referring Provider Internal Medicine; Visit Provider Nurse Practitioner Family
DX: L97.112 Non-pressure chronic ulcer of right thigh with fat layer exposed (principal); E66.01 Morbid (severe) obesity due to excess calories; Z68.43 Body mass index [BMI] 50.0-59.9, adult; M79.89 Other specified soft tissue disorders; R60.0 Localized edema; I89.0 Lymphedema, not elsewhere classified; L30.4 Erythema intertrigo; Z98.84 Bariatric surgery status; Z87.891 Personal history of nicotine dependence
CPT/HCPCS: 11042; 11045; 36415; 85027

== ENCOUNTER 2023-01-30 10:45 | Outpatient (RCR) | payer MEDICAID, SELFPAY ==
[2023-01-09 00:18] VITALS: BP 144/96; PULSE 75; RESP 18; TEMP 36.2; BMI 57.7
[2023-01-09 10:44] VITALS: BP 148/64; PULSE 96; RESP 20; TEMP 36.8; BMI 57.7
--- NOTE | 2023-01-09 12:30 | PN.PCM_ITS ---
History of Present Illness Date of Service: 01/09/23 Chief Complaint: Nonhealing ulcer left medial thigh. History of Wound: 47 year old man presents with areas of redundant skin and subcutaneous tissue in his bilateral medial thighs and abdominal panniculus with associated panniculitis. There is abdominal wall skin crease intertrigo and bilateral medial thigh intertrigo for which he uses powders for relief. This excess skin and subcutaneous tissue was the result of bariatric surgery done in [place] in May,. He lost about 250 lbs and his current weight is about 440 lbs. He has a history of lower extremity lymphedema resulting from the extreme body weight and has persistent dependent edema in his medial thighs which aggravates his symptomatology. He denies trauma. He denies fever. Both areas bother him but the medial thighs are his initial priority as he has trouble with ambulating. We received medical approval from his insurance company for his thigh surgery. Surgery 09/22/20 - Excision redundant skin and subcutaneous tissue left medial and posterior thigh with dermolipectomy. Surgery 10/05/22 - Surgical preparation right medial and posterior thigh with excision redundant skin and subcutaneous tissue with radical dermolipectomy. He went to [facility] for almost a month, he had a wound VAC while he was at [facility]. Hgb 8.7 on . Repeat Hgb 8.8 on 10/25/22 at [facility]. On iron supplementation but with his history of gastric bypass, that may impact his abso rption of the iron. Rechecked on 12/12/22 Hgb 10.5. Wound care - Silver alginate covered with ABDs daily and as needed. Today he denies fever and chills and states his appetite is good. Progress of Wound: Right medial leg ulcer is beefy pink, it is getting smaller. He continues to have swelling of his right leg around the proximal lower leg and knee area. Objective Data Objective Data Vital Signs: Vital Signs Temp Pulse Resp BP 98.3 F 96 20 H 148/64 H 01/09/23 10:44 01/09/23 10:44 01/09/23 10:44 01/09/23 10:44 Weight: 500 lb Body Mass Index (BMI) 57.7 Charges/Coding Procedures Integumentary 111xxx-113xx: 75808 Margarita subq tissue 20 sq cm/< Add On Codes: 18073 Margarita subq tissue add-on (x5) Debridement Note Debridement Note Wound debrided: Right medial thigh ulcer Laterality: Right Wound Grade/Stage: Stage IV Type of Debridement: Excisional debridement Anesthesia Used: 5% Lidocaine Gel Depth: Down to and including healthy tissue and in the subcutaneous layer Percentage of wound debrided: 100 Instrument Used: 7mm curette Tissue Removed: Devitalized tissue and slough Severity: Fat Layer Exposed Amount of bleeding with debridement: Moderate Bleeding Controlled with: Pressure and Compression and gauze Patient tolerated procedure: Patient tolerated procedure well Post-Debridement Measurements and Additional Note: Post-Debridement Measurements/Treatment WC - Nurse 1 - General Ulcer Assessment Start: 01/09/23 10:42 Freq: Status: Active Protocol: WILLIAM Activity Type Activity Date Activity User E-sign Co-sign Detail Recorded Client Recorded Date Recorded By Document 01/09/23 10:44 DL [id number] 01/09/23 10:51 DL 01/09/23 10:44 WC - Today's Visit Information Type of service 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/HOME CARE ADMINISTRATOR ) Arrival Mode Ambulatory Transfer Assistance None Patient Identification Verified (Name & Yes ) Patient Requires Transmission-Based No Precautions Height and Weight Body Mass Index (BMI) 57.7 BMI Classification Obese Vital Signs Temperature (97.8 F-99.1 F) 98.3 F Temperature Source Temporal Pulse Rate (60-100) 96 Pulse Location Monitor Respiratory Rate (12-18) 20 H Respiratory rate source Observation Blood Pressure (90/60-120/80) 148/64 H Blood Pressure Mean (mm Hg) 92 History Since Last Visit- (Skip if this is Patient's initial visit) Have you changed medications since your No last visit? Any new allergies or adverse reactions No Had a fall/change in ADL's that may No increase risk of falls Signs or symptoms of abuse and/or No neglect since last visit Have you been in the hospital since your No last visit? Has dressing in place as prescribed No Has compression in place as prescribed Yes Has offloadiing in place as prescribed N/A Experienced any changes in pain level or No management Pain Scale: 0-10 Numeric Is Patient Pain Free? Yes Rodolfo Nurse 1 - General Ulcer Measurement Start: 01/09/23 10:42 Freq: Status: Active Protocol: Activity Type Activity Date Activity User E-sign Co-sign Detail Recorded Client Recorded Date Recorded By Document 01/09/23 10:44 CHAVEZ [id number] 01/09/23 10:51 DL 01/09/23 10:44 Wound Center Nurse 1 10. R medial thigh -Current Size (cm) - Length 15.5 -Current Size (cm) - Width 10 -Current Size (cm) - Depth 0.1 -Total Square Cm 155.0 -Photo Taken No -Exudate Amt Large -Exudate Type Yellow/Green -Wound Margin Distinct, Outline Attached -Granulation Amt Medium (34-66%) -Granulation Quality Red -Necrosis Amt Medium (34-66%) -Necrotic Tissue Type Adherent Slough -Structure Exposed N/A -Texture (Josephine-wound Skin Appearance) Scarring -Moisture (Josephine-wound Skin Appearance) No Abnormality -Color (Josephine-wound Skin Appearance) No Abnormality -Temperature (Josephine-wound Skin No Abnormality Appearance) (Pt Warm) -Tenderness on Palpation (Josephine-wound No Skin Appearance) -Ulcer Cleansing Soap and Water -Foul Odor after Cleansing No -Anesthetic Used 4% Lidocaine Solution WC - Nurse 2 - General Ulcer CM Notes Start: 01/09/23 10:42 Freq: Status: Active Protocol: Activity Type Activity Date Activity User E-sign Co-sign Detail Recorded Client Recorded Date Recorded By Document 01/09/23 11:16 [id number] 01/09/23 11:23 01/09/23 11:16 Wound Center Nurse 2 -Time 11:17 -Correct Patient Yes -Correct Side, Site, Position Yes -Correct Procedure Yes -Procedure Performed Yes -Type of Procedure Debridement -Clinical Debridement Subcutaneous -Tissue Removed Subcutaneous -Post Debridement (cm) - Length 10.0 -Post Debridement (cm) - Width 16.3 -Post Debridement (cm) - Depth 0.1 -Total Square (Post) (cm) 163.00 -Area of Debridement (cm) - Length 10.0 -Area of Debridement (cm) - Width 16.3 -Total Square (Area) (cm) 163.00 -Tunneling No -Undermining/Tunneling No -Circular Undermining No -Wound/Ulcer Outcome Not Healed -Ulcer Cleansing Rinsed/ Irrigated with Saline -Foul Odor after Cleansing No -Bioengineered Tissue No -Bleeding Controlled with Pressure -Treatment Response Procedure Tolerated Well -Offloading No -Debridement - Subq, 1st 20sq cm Yes -Debridement, SubQ, ea addt'l 20sq cm 8 or part thereof Pain Scale: 0-10 Numeric Is Patient Pain Free? Yes - Nurse 3 - General Ulcer D/C NN Start: 01/09/23 10:42 Freq: Status: Active Protocol: Activity Type Activity Date Activity User E-sign Co-sign Detail Recorded Client Recorded Date Recorded By Document 01/09/23 11:39 PL [id number] 01/09/23 11:41 PL 01/09/23 11:39 Wound Care Center Nurse 3 10. R medial thigh -Ulcer Cleansing Rinsed/ Irrigated with Saline -Foul Odor after Cleansing No -Negative Pressure Wound Therapy N/A -Primary Dressing Applied Silvercel -Other Dressing ABD -Primary Dressing Covered/Secured with Secured with Tape -Silvercel 2 Right -Compression Wrap Desmond Wrap Pain Scale: 0-10 Numeric Is Patient Pain Free? Yes WC - Visit Discharge Discharge Condition Stable Ambulatory Status Ambulatory Assessment/Plan Assessment/Plan (1) Nonhealing ulcer of right lower extremity with fat layer exposed: CODE(S): L97.912 - Non-pressure chronic ulcer of unspecified part of right lower leg with fat layer exposed (2) Acute postoperative anemia due to expected blood loss: CODE(S): D62 - Acute posthemorrhagic anemia (3) Edema of both lower extremities: CODE(S): R60.0 - Localized edema (4) Chronic acquired lymphedema: CODE(S): I89.0 - Lymphedema, not elsewhere classified (5) Excessive and redundant skin and subcutaneous tissue: CODE(S): L98.7 - Excessive and redundant skin and subcutaneous tissue (6) Intertrigo: CODE(S): L30.4 - Erythema intertrigo (7) Morbid obesity: CODE(S): E66.01 - Morbid (severe) obesity due to excess calories (8) Excessive body weight loss: CODE(S): R63.4 - Abnormal weight loss (9) History of bariatric surgery: CODE(S): Z98.84 - Bariatric surgery status (10) History of excision of mass: CODE(S): Z98.890 - Other specified postprocedural states (11) Former smoker: CODE(S): Z87.891 - Personal history of nicotine dependence PLAN: Plan Patient evaluated at the wound healing center today. Wound care - Right medial leg ulcer sliver alginate topped with ABD or silicone boarder foam dressing daily and as needed after washing ulcer and josephine wound with soap and water. He wears an DESMOND wrap or abdominal binder around his right thigh for compression. He would benefit from home compression pumps for his lymphedema but he needs to have vascular studies which have been ordered in the past but he has never obtained. Encouraged him to have the studies done and he states he will think about it. Hgb 8.8 on 10/25/22 Rechecked CBC on 12/12/22, Hgb 10.5. He is to continue the iron supplementation. Prealbumin 21.9 on 10/06/22. Encouraged increase in protein intake to help with wound healing. Follow up 2 weeks.
[2023-01-23 10:35] VITALS: BP 175/98; PULSE 64; RESP 20; TEMP 36.4; BMI 57.7
--- NOTE | 2023-01-23 12:04 | PCM.WC.PN ---
History of Present Illness Date of Service: 01/23/23 Chief Complaint: Nonhealing ulcer left medial thigh. History of Wound: 47 year old man presents with areas of redundant skin and subcutaneous tissue in his bilateral medial thighs and abdominal panniculus with associated panniculitis. There is abdominal wall skin crease intertrigo and bilateral medial thigh intertrigo for which he uses powders for relief. This excess skin and subcutaneous tissue was the result of bariatric surgery done in [place] in May,. He lost about 250 lbs and his current weight is about 440 lbs. He has a history of lower extremity lymphedema resulting from the extreme body weight and has persistent dependent edema in his medial thighs which aggravates his symptomatology. He denies trauma. He denies fever. Both areas bother him but the medial thighs are his initial priority as he has trouble with ambulating. We received medical approval from his insurance company for his thigh surgery. Surgery 09/22/20 - Excision redundant skin and subcutaneous tissue left medial and posterior thigh with dermolipectomy. Surgery 10/05/22 - Surgical preparation right medial and posterior thigh with excision redundant skin and subcutaneous tissue with radical dermolipectomy. He went to [facility] for almost a month, he had a wound VAC while he was at [facility]. Hgb 8.7 on . Repeat Hgb 8.8 on 10/25/22 at [facility]. On iron supplementation but with his history of gastric bypass, that may impact his absorption of the iron. Rechecked on 12/12/22 Hgb 10.5. Wound care - Silver alginate covered with ABDs daily and as needed. Today he denies fever and chills and states his appetite is good. Progress of Wound: Right medial leg ulcer is beefy pink, it is getting smaller. He continues to have swelling of his right leg around the proximal lower leg and knee area. Objective Data Objective Data Vital Signs: Vital Signs Temp Pulse Resp BP 97.5 F L 64 20 H 175/98 H 01/23/23 10:35 01/23/23 10:35 01/23/23 10:35 01/23/23 10:35 Weight: 500 lb Body Mass Index (BMI) 57.7 Charges/Coding Procedures Integumentary 111xxx-113xx: 68286 Margarita subq tissue 20 sq cm/< Add On Codes: [id number] Margarita subq tissue add-on (x6) Debridement Note Debridement Note Wound debrided: Right medial thigh ulcer Laterality: Right Wound Grade/Stage: Stage IV Type of Debridement: Excisional debridement Anesthesia Used: 5% Lidocaine Gel Depth: Down to and including healthy tissue and in the subcutaneous layer Percentage of wound debrided: 100 Instrument Used: 7mm curette Tissue Removed: Devitalized tissue and slough Severity: Fat Layer Exposed Amount of bleeding with debridement: Moderate Bleeding Controlled with: Pressure and Compression and gauze Patient tolerated procedure: Patient tolerated procedure well Post-Debridement Measurements and Additional Note: Post-Debridement Measurements/Treatment - Nurse 1 - General Ulcer Assessment Start: 01/09/23 10:42 Freq: Status: Active Protocol: WILLIAM Activity Type Activity Date Activity User E-sign Co-sign Detail Recorded Client Recorded Date Recorded By Document 01/09/23 10:44 DL [id number] 01/09/23 10:51 DL Document 01/23/23 10:35 DL [id number] 01/23/23 10:45 DL 01/09/23 01/23/23 10:44 10:35 - Today's Visit Information Type of service Follow-up Visit 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/ASSET COORDINATOR (Physician/ASSET COORDINATOR ) ) Arrival Mode Ambulatory Ambulatory Transfer Assistance None None Patient Identification Verified (Name & Yes Yes ) Patient Requires Transmission-Based No No Precautions Height and Weight Body Mass Index (BMI) 57.7 57.7 BMI Classification Obese Obese Vital Signs Temperature (97.8 F-99.1 F) 98.3 F 97.5 F L Temperature Source Temporal Temporal Pulse Rate (60-100) 96 64 Pulse Location Monitor Monitor Respiratory Rate (12-18) 20 H 20 H Respiratory rate source Observation Observation Blood Pressure (90/60-120/80) 148/64 H 175/98 H Blood Pressure Mean (mm Hg) 92 123 Source Monitor History Since Last Visit- (Skip if this is Patient's initial visit) Have you changed medications since your No No last visit? Any new allergies or adverse reactions No No Had a fall/change in ADL's that may No No increase risk of falls Signs or symptoms of abuse and/or No No neglect since last visit Have you been in the hospital since your No No last visit? Has dressing in place as prescribed No Yes Has compression in place as prescribed Yes N/A Has offloadiing in place as prescribed N/A Yes Experienced any changes in pain level or No No management Pain Scale: 0-10 Numeric Is Patient Pain Free? Yes Yes ACOSTA - Nurse 1 - General Ulcer Measurement Start: 01/09/23 10:42 Freq: Status: Active Protocol: Activity Type Activity Date Activity User E-sign Co-sign Detail Recorded Client Recorded Date Recorded By Document 01/09/23 10:44 DL [id number] 01/09/23 10:51 DL Document 01/23/23 10:35 [id number] 01/23/23 10:45 DL 01/09/23 01/23/23 10:44 10:35 Wound Center Nurse 1 10. R medial thigh -Current Size (cm) - Length 15.5 14 -Current Size (cm) - Width 10 9 -Current Size (cm) - Depth 0.1 0.1 -Total Square Cm 155.0 126 -Photo Taken No No -Exudate Amt Large Medium -Exudate Type Yellow/Green Yellow/Green -Wound Margin Distinct, Thickened Outline Attached -Granulation Amt Medium (34-66%) Medium (34-66%) -Granulation Quality Red Red -Necrosis Amt Medium (34-66%) Medium (34-66%) -Necrotic Tissue Type Adherent Slough Adherent Slough -Structure Exposed N/A N/A -Texture (Josephine-wound Skin Appearance) Scarring Scarring -Moisture (Josephine-wound Skin Appearance) No Abnormality No Abnormality -Color (Josephine-wound Skin Appearance) No Abnormality No Abnormality -Temperature (Josephine-wound Skin No Abnormality No Abnormality Appearance) (Pt Warm) (Pt Warm) -Tenderness on Palpation (Josephine-wound No No Skin Appearance) -Ulcer Cleansing Soap and Water Soap and Water -Foul Odor after Cleansing No No -Anesthetic Used 4% Lidocaine 4% Lidocaine Solution Solution ACOSTA - Nurse 2 - General Ulcer CM Notes Start: 01/09/23 10:42 Freq: Status: Active Protocol: Activity Type Activity Date Activity User E-sign Co-sign Detail Recorded Client Recorded Date Recorded By Document 01/09/23 11:16 [id number] 01/09/23 11:23 Document 01/23/23 11:05 [id number] 01/23/23 11:09 JF 01/09/23 01/23/23 11:16 11:05 Wound Center Nurse 2 10. R medial thigh -Time 11:17 11:06 -Correct Patient Yes Yes -Correct Side, Site, Position Yes Yes -Correct Procedure Yes Yes -Procedure Performed Yes Yes -Type of Procedure Debridement Debridement -Clinical Debridement Subcutaneous Subcutaneous -Tissue Removed Subcutaneous Subcutaneous -Post Debridement (cm) - Length 10.0 10.0 -Post Debridement (cm) - Width 16.3 13.5 -Post Debridement (cm) - Depth 0.1 0.2 -Total Square (Post) (cm) 163.00 135.00 -Area of Debridement (cm) - Length 10.0 10 -Area of Debridement (cm) - Width 16.3 13.5 -Total Square (Area) (cm) 163.00 135.0 -Tunneling No No -Undermining/Tunneling No No -Circular Undermining No No -Wound/Ulcer Outcome Not Healed Not Healed -Ulcer Cleansing Rinsed/ Rinsed/ Irrigated with Irrigated with Saline Saline -Foul Odor after Cleansing No No -Bioengineered Tissue No No -Bleeding Controlled with Pressure Pressure -Treatment Response Procedure Procedure Tolerated Well Tolerated Well -Offloading No No -Debridement - Subq, 1st 20sq cm Yes Yes -Debridement, SubQ, ea addt'l 20sq cm 8 6 or part thereof Pain Scale: 0-10 Numeric Is Patient Pain Free? Yes Yes WC - Nurse 3 - General Ulcer D/C NN Start: 01/09/23 10:42 Freq: Status: Active Protocol: Activity Type Activity Date Activity User E-sign Co-sign Detail Recorded Client Recorded Date Recorded By Document 01/09/23 11:39 PL [id number] 01/09/23 11:41 PL Document 01/23/23 11:21 DL [id number] 01/23/23 11:26 DL 01/09/23 01/23/23 11:39 11:21 Wound Care Center Nurse 3 10. R medial thigh -Ulcer Cleansing Rinsed/ Soap and Water Irrigated with Saline -Foul Odor after Cleansing No No -Negative Pressure Wound Therapy N/A -Primary Dressing Applied Silvercel Silvercel -Other Dressing ABD -Primary Dressing Covered/Secured with Secured with Dry Gauze, Tape Secured with Tape -Silvercel 2 1 Right -Compression Wrap Desmond Wrap Desmond Wrap Treatment Response Procedure Tolerated Well Pain Scale: 0-10 Numeric Is Patient Pain Free? Yes Yes WC - Visit Discharge Discharge Condition Stable Stable Ambulatory Status Ambulatory Ambulatory Transportation Private Auto Assessment/Plan Assessment/Plan (1) Nonhealing ulcer of right lower extremity with fat layer exposed: CODE(S): L97.912 - Non-pressure chronic ulcer of unspecified part of right lower leg with fat layer exposed (2) Acute postoperative anemia due to expected blood loss: CODE(S): D62 - Acute posthemorrhagic anemia (3) Edema of both lower extremities: CODE(S): R60.0 - Localized edema (4) Chronic acquired lymphedema: CODE(S): I89.0 - Lymphedema, not elsewhere classified (5) Excessive and redundant skin and subcutaneous tissue: CODE(S): L98.7 - Excessive and redundant skin and subcutaneous tissue (6) Intertrigo: CODE(S): L30.4 - Erythema intertrigo (7) Morbid obesity: CODE(S): E66.01 - Morbid (severe) obesity due to excess calories (8) Excessive body weight loss: CODE(S): R63.4 - Abnormal weight loss (9) History of bariatric surgery: CODE(S): Z98.84 - Bariatric surgery status (10) History of excision of mass: CODE(S): Z98.890 - Other specified postprocedural states (11) Former smoker: CODE(S): Z87.891 - Personal history of nicotine dependence PLAN: Plan Patient evaluated at the wound healing center today. Wound care - Right medial leg ulcer sliver alginate topped with ABD or silicone boarder foam dressing daily and as needed after washing ulcer and josephine wound with soap and water. He wears an DESMOND wrap or abdominal binder around his right thigh for compression. He would benefit from home compression pumps for his lymphedema but he needs to have vascular studies which have been ordered in the past but he has never obtained. Encouraged him to have the studies done and he states he will think about it. Hgb 8.8 on 10/25/22 Rechecked CBC on 12/12/22, Hgb 10.5. He is to continue the iron supplementation. Prealbumin 21.9 on 10/06/22. Encouraged increase in protein intake to help with wound healing. Follow up 1 week.
[2023-01-30 10:50] VITALS: BP 168/72; PULSE 59; TEMP 35.9; BMI 57.7
--- NOTE | 2023-01-30 11:33 | PN.PCM_ITS ---
History of Present Illness Date of Service: 01/30/23 Chief Complaint: Nonhealing ulcer left medial thigh. History of Wound: 47 year old man presents with areas of redundant skin and subcutaneous tissue in his bilateral medial thighs and abdominal panniculus with associated panniculitis. There is abdominal wall skin crease intertrigo and bilateral medial thigh intertrigo for which he uses powders for relief. This excess skin and subcutaneous tissue was the result of bariatric surgery done in [place] in May,. He lost about 250 lbs and his current weight is about 440 lbs. He has a history of lower extremity lymphedema resulting from the extreme body weight and has persistent dependent edema in his medial thighs which aggravates his symptomatology. He denies trauma. He denies fever. Both areas bother him but the medial thighs are his initial priority as he has trouble with ambulating. We received medical approval from his insurance company for his thigh surgery. Surgery 09/22/20 - Excision redundant skin and subcutaneous tissue left medial and posterior thigh with dermolipectomy. Surgery 10/05/22 - Surgical preparation right medial and posterior thigh with excision redundant skin and subcutaneous tissue with radical dermolipectomy. He went to [facility] for almost a month, he had a wound VAC while he was at [facility]. Hgb 8.7 on . Repeat Hgb 8.8 on 10/25/22 at [facility]. On iron supplementation but with his history of gastric bypass, that may impact his abso rption of the iron. Rechecked on 12/12/22 Hgb 10.5. Wound care - Silver alginate covered with ABDs daily and as needed. Today he denies fever and chills and states his appetite is good. Progress of Wound: Right medial leg ulcer is beefy pink, it is getting smaller. He continues to have swelling of his right leg around the proximal lower leg and knee area. Objective Data Objective Data Vital Signs: Vital Signs Temp Pulse Resp BP 96.7 F L 59 L 20 H 168/72 H 01/30/23 10:50 01/30/23 10:50 01/23/23 10:35 01/30/23 10:50 Weight: 500 lb Body Mass Index (BMI) 57.7 Charges/Coding Procedures Integumentary 111xxx-113xx: 33143 Margarita subq tissue 20 sq cm/< Add On Codes: [id number] Margarita subq tissue add-on (x5) Debridement Note Debridement Note Wound debrided: Right medial thigh ulcer Laterality: Right Wound Grade/Stage: Stage IV Type of Debridement: Excisional debridement Anesthesia Used: 5% Lidocaine Gel Depth: Down to and including healthy tissue and in the subcutaneous layer Percentage of wound debrided: 100 Instrument Used: 5mm curette Tissue Removed: Devitalized tissue and slough Severity: Fat Layer Exposed Amount of bleeding with debridement: Moderate Bleeding Controlled with: Pressure and Compression and gauze Patient tolerated procedure: Patient tolerated procedure well Post-Debridement Measurements and Additional Note: Post-Debridement Measurements/Treatment - Nurse 1 - General Ulcer Assessment Start: 01/09/23 10:42 Freq: Status: Active Protocol: WILLIAM Activity Type Activity Date Activity User E-sign Co-sign Detail Recorded Client Recorded Date Recorded By Document 01/09/23 10:44 DL [id number] 01/09/23 10:51 DL Document 01/23/23 10:35 DL [id number] 01/23/23 10:45 DL Document 01/30/23 10:50 AK [id number] 01/30/23 10:54 AK 01/09/23 01/23/23 01/30/23 10:44 10:35 10:50 - Today's Visit Information Type of service Follow-up Visit Follow-up Visit 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/GLOBAL LEAD (Physician/GLOBAL LEAD (Physician/GLOBAL LEAD ) ) ) Arrival Mode Ambulatory Ambulatory Ambulatory Transfer Assistance None None Patient Identification Verified (Name & Yes Yes Yes ) Patient Requires Transmission-Based No No No Precautions Safety Precautions NA Height and Weight Body Mass Index (BMI) 57.7 57.7 57.7 BMI Classification Obese Obese Obese Vital Signs Temperature (97.8 F-99.1 F) 98.3 F 97.5 F L 96.7 F L Temperature Source Temporal Temporal Temporal Pulse Rate (60-100) 96 64 59 L Pulse Location Monitor Monitor Monitor Respiratory Rate (12-18) 20 H 20 H Respiratory rate source Observation Observation Blood Pressure (90/60-120/80) 148/64 H 175/98 H 168/72 H Blood Pressure Mean (mm Hg) 92 123 104 Source Monitor Monitor History Since Last Visit- (Skip if this is Patient's initial visit) Have you changed medications since your No No No last visit? Any new allergies or adverse reactions No No No Had a fall/change in ADL's that may No No No increase risk of falls Signs or symptoms of abuse and/or No No No neglect since last visit Have you been in the hospital since your No No No last visit? Has dressing in place as prescribed No Yes Yes Has compression in place as prescribed Yes N/A N/A Has offloadiing in place as prescribed N/A Yes N/A Experienced any changes in pain level or No No No management Left Footwear Regular Shoe Right Footwear Regular Shoe Pain Scale: 0-10 Numeric Is Patient Pain Free? Yes Yes Yes WC - Nurse 1 - General Ulcer Measurement Start: 01/09/23 10:42 Freq: Status: Active Protocol: Activity Type Activity Date Activity User E-sign Co-sign Detail Recorded Client Recorded Date Recorded By Document 01/09/23 10:44 DL [id number] 01/09/23 10:51 DL Document 01/23/23 10:35 DL [id number] 01/23/23 10:45 DL Document 01/30/23 10:50 AK [id number] 01/30/23 10:54 AK 01/09/23 01/23/23 01/30/23 10:44 10:35 10:50 Wound Center Nurse 1 10. R medial thigh -Combined with other wound No -Current Size (cm) - Length 15.5 14 8.6 -Current Size (cm) - Width 10 9 11.5 -Current Size (cm) - Depth 0.1 0.1 0.1 -Total Square Cm 155.0 126 98.90 -Photo Taken No No Yes -Tunneling No -Undermining/Tunneling No -Circular Undermining No -Change in Wound Grade/Stage No -Exudate Amt Large Medium Large -Exudate Type Yellow/Green Yellow/Green Serosanguineous -Wound Margin Distinct, Thickened Distinct, Outline Outline Attached Attached -Granulation Amt Medium (34-66%) Medium (34-66%) Large (67-100%) -Granulation Quality Red Red Red -Slough/Fibrin Yes -Necrosis Amt Medium (34-66%) Medium (34-66%) Small (1-33%) -Necrotic Tissue Type Adherent Slough Adherent Slough Adherent Slough -Structure Exposed N/A N/A N/A -Texture (Josephine-wound Skin Appearance) Scarring Scarring Assessed, Scarring -Moisture (Josephine-wound Skin Appearance) No Abnormality No Abnormality Assessed, Weeping -Color (Josephine-wound Skin Appearance) No Abnormality No Abnormality No Abnormality, Assessed -Temperature (Josephine-wound Skin No Abnormality No Abnormality No Abnormality Appearance) (Pt Warm) (Pt Warm) (Pt Warm) -Tenderness on Palpation (Josephine-wound No No No Skin Appearance) -Ulcer Cleansing Soap and Water Soap and Water Soap and Water -Foul Odor after Cleansing No No No -Anesthetic Used 4% Lidocaine 4% Lidocaine 5% Lidocaine Solution Solution Gel WC - Nurse 2 - General Ulcer CM Notes Start: 01/09/23 10:42 Freq: Status: Active Protocol: Activity Type Activity Date Activity User E-sign Co-sign Detail Recorded Client Recorded Date Recorded By Document 01/09/23 11:16 [id number] 01/09/23 11:23 Document 01/23/23 11:05 [id number] 01/23/23 11:09 Document 01/30/23 11:05 [id number] 01/30/23 11:08 01/09/23 01/23/23 01/30/23 11:16 11:05 11:05 Wound Center Nurse 2 10. R medial thigh -Time 11:17 11:06 11:06 -Correct Patient Yes Yes Yes -Correct Side, Site, Position Yes Yes Yes -Correct Procedure Yes Yes Yes -Procedure Performed Yes Yes Yes -Type of Procedure Debridement Debridement Debridement -Clinical Debridement Subcutaneous Subcutaneous Subcutaneous -Tissue Removed Subcutaneous Subcutaneous Subcutaneous -Post Debridement (cm) - Length 10.0 10.0 10 -Post Debridement (cm) - Width 16.3 13.5 11 -Post Debridement (cm) - Depth 0.1 0.2 0.1 -Total Square (Post) (cm) 163.00 135.00 110 -Area of Debridement (cm) - Length 10.0 10 10 -Area of Debridement (cm) - Width 16.3 13.5 11 -Total Square (Area) (cm) 163.00 135.0 110 -Tunneling No No No -Undermining/Tunneling No No No -Circular Undermining No No No -Wound/Ulcer Outcome Not Healed Not Healed Not Healed -Ulcer Cleansing Rinsed/ Rinsed/ Rinsed/ Irrigated with Irrigated with Irrigated with Saline Saline Saline -Foul Odor after Cleansing No No No -Bioengineered Tissue No No No -Bleeding Controlled with Pressure Pressure Pressure -Treatment Response Procedure Procedure Procedure Tolerated Well Tolerated Well Tolerated Well -Offloading No No No -Debridement - Subq, 1st 20sq cm Yes Yes Yes -Debridement, SubQ, ea addt'l 20sq cm 8 6 5 or part thereof Pain Scale: 0-10 Numeric Is Patient Pain Free? Yes Yes Yes - Nurse 3 - General Ulcer D/C NN Start: 01/09/23 10:42 Freq: Status: Active Protocol: Activity Type Activity Date Activity User E-sign Co-sign Detail Recorded Client Recorded Date Recorded By Document 01/09/23 11:39 PL [id number] 01/09/23 11:41 PL Document 01/23/23 11:21 DL [id number] 01/23/23 11:26 DL Document 01/30/23 11:16 [facility] [id number] 01/30/23 11:16 BMF 01/09/23 01/23/23 01/30/23 11:39 11:21 11:16 Wound Care Center Nurse 3 10. R medial thigh -Ulcer Cleansing Rinsed/ Soap and Water Rinsed/ Irrigated with Irrigated with Saline Saline -Foul Odor after Cleansing No No No -Negative Pressure Wound Therapy N/A -Primary Dressing Applied Silvercel Silvercel Silvercel -Other Dressing ABD abd; per ak mobile device developer -Primary Dressing Covered/Secured with Secured with Dry Gauze, Secured with Tape Secured with Tape Tape -Silvercel 2 1 1 Right -Compression Wrap Desmond Wrap Desmond Wrap Desmond Wrap Treatment Response Procedure Procedure Tolerated Well Tolerated Well Pain Scale: 0-10 Numeric Is Patient Pain Free? Yes Yes Yes - Visit Discharge Discharge Condition Stable Stable Stable Ambulatory Status Ambulatory Ambulatory Ambulatory Transportation Private Auto Private Auto Assessment/Plan Assessment/Plan (1) Nonhealing ulcer of right lower extremity with fat layer exposed: CODE(S): L97.912 - Non-pressure chronic ulcer of unspecified part of right lower leg with fat layer exposed (2) Acute postoperative anemia due to expected blood loss: CODE(S): D62 - Acute posthemorrhagic anemia (3) Edema of both lower extremities: CODE(S): R60.0 - Localized edema (4) Chronic acquired lymphedema: CODE(S): I89.0 - Lymphedema, not elsewhere classified (5) Excessive and redundant skin and subcutaneous tissue: CODE(S): L98.7 - Excessive and redundant skin and subcutaneous tissue (6) Intertrigo: CODE(S): L30.4 - Erythema intertrigo (7) Morbid obesity: CODE(S): E66.01 - Morbid (severe) obesity due to excess calories (8) Excessive body weight loss: CODE(S): R63.4 - Abnormal weight loss (9) History of bariatric surgery: CODE(S): Z98.84 - Bariatric surgery status (10) History of excision of mass: CODE(S): Z98.890 - Other specified postprocedural states (11) Former smoker: CODE(S): Z87.891 - Personal history of nicotine dependence PLAN: Plan Patient evaluated at the wound healing center today. Wound care - Right medial leg ulcer sliver alginate topped with ABD or silicone boarder foam dressing daily and as needed after washing ulcer and josephine wound with soap and water. He wears an DESMOND wrap or abdominal binder around his right thigh for compression. He would benefit from home compression pumps for his lymphedema but he needs to have vascular studies which have been ordered in the past but he has never obtained. Encouraged him to have the studies done and he states he is willing to have it done. Will re order the vascular studies. Hgb 8.8 on 10/25/22 Rechecked CBC on 12/12/22, Hgb 10.5. He is to continue the iron supplementation. Prealbumin 21.9 on 10/06/22. Encouraged increase in protein intake to help with wound healing. Follow up 2 weeks.
== END 2023-02-08 23:59 | disposition home or self-care (01) ==
LOC: WC 10:45
PROVIDERS: PCP Internal Medicine; Referring Provider Internal Medicine; Visit Provider Nurse Practitioner Family
DX: L97.122 Non-pressure chronic ulcer of left thigh with fat layer exposed (principal); L97.112 Non-pressure chronic ulcer of right thigh with fat layer exposed; E66.01 Morbid (severe) obesity due to excess calories; M79.89 Other specified soft tissue disorders; D62 Acute posthemorrhagic anemia; R60.0 Localized edema; I89.0 Lymphedema, not elsewhere classified; L98.7 Excessive and redundant skin and subcutaneous tissue; L30.4 Erythema intertrigo; Z98.84 Bariatric surgery status; Z98.890 Other specified postprocedural states; Z87.891 Personal history of nicotine dependence; R63.4 Abnormal weight loss
CPT/HCPCS: 11042; 11045

== ENCOUNTER 2023-02-13 10:39 | Outpatient (RCR) | payer MEDICAID, SELFPAY ==
[2023-02-09 00:18] VITALS: BP 168/72; PULSE 59; RESP 20; TEMP 35.9; BMI 57.7
[2023-02-13 10:46] VITALS: TEMP 36.2; BMI 57.7
--- NOTE | 2023-02-13 13:12 | PN.PCM_ITS ---
History of Present Illness Date of Service: 02/13/23 Chief Complaint: Nonhealing ulcer left medial thigh. History of Wound: 47 year old man presents with areas of redundant skin and subcutaneous tissue in his bilateral medial thighs and abdominal panniculus with associated panniculitis. There is abdominal wall skin crease intertrigo and bilateral medial thigh intertrigo for which he uses powders for relief. This excess skin and subcutaneous tissue was the result of bariatric surgery done in [place] in May,. He lost about 250 lbs and his current weight is about 440 lbs. He has a history of lower extremity lymphedema resulting from the extreme body weight and has persistent dependent edema in his medial thighs which aggravates his symptomatology. He denies trauma. He denies fever. Both areas bother him but the medial thighs are his initial priority as he has trouble with ambulating. We received medical approval from his insurance company for his thigh surgery. Surgery 09/22/20 - Excision redundant skin and subcutaneous tissue left medial and posterior thigh with dermolipectomy. Surgery 10/05/22 - Surgical preparation right medial and posterior thigh with excision redundant skin and subcutaneous tissue with radical dermolipectomy. He went to [facility] for almost a month, he had a wound VAC while he was at [facility]. Hgb 8.7 on . Repeat Hgb 8.8 on 10/25/22 at [facility]. On iron supplementation but with his history of gastric bypass, that may impact his abso rption of the iron. Rechecked on 12/12/22 Hgb 10.5. Wound care - Silver alginate covered with ABDs daily and as needed. Today he denies fever and chills and states his appetite is good. Progress of Wound: Right medial leg ulcer is beefy pink, it is getting smaller. He continues to have swelling of his right leg around the proximal lower leg and knee area. He forgot about his vascular studies, so they need to be rescheduled. Objective Data Objective Data Vital Signs: Vital Signs Temp Pulse Resp BP 97.1 F L 59 L 20 H 168/72 H 02/13/23 10:46 02/09/23 00:18 02/09/23 00:18 02/09/23 00:18 Weight: 500 lb Body Mass Index (BMI) 57.7 Charges/Coding Procedures Integumentary 111xxx-113xx: 29083 Margartia subq tissue 20 sq cm/< Add On Codes: [id number] Margarita subq tissue add-on (x5) Debridement Note Debridement Note Wound debrided: Right medial thigh ulcer Laterality: Right Wound Grade/Stage: Stage IV Type of Debridement: Excisional debridement Anesthesia Used: 5% Lidocaine Gel Depth: Down to and including healthy tissue and in the subcutaneous layer Percentage of wound debrided: 100 Instrument Used: 7mm curette Tissue Removed: Devitalized tissue and slough Severity: Fat Layer Exposed Amount of bleeding with debridement: Moderate Bleeding Controlled with: Pressure, Compression and gauze and Silver Nitrate Patient tolerated procedure: Patient tolerated procedure well Post-Debridement Measurements and Additional Note: Post-Debridement Measurements/Treatment - Nurse 1 - General Ulcer Assessment Start: 02/13/23 10:44 Freq: Status: Active Protocol: WILLIAM Activity Type Activity Date Activity User E-sign Co-sign Detail Recorded Client Recorded Date Recorded By Document 02/13/23 10:46 GAGANDEEP [id number] 02/13/23 10:52 GAGANDEEP 02/13/23 10:46 - Today's Visit Information Type of service 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 Any new allergies or adverse reactions No Had a fall/change in ADL's that may No increase risk of falls Signs or symptoms of abuse and/or No neglect since last visit Have you been in the hospital since your No last visit? Has dressing in place as prescribed Yes Has compression in place as prescribed Yes Has offloadiing in place as prescribed N/A Experienced any changes in pain level or No management Left Footwear Regular Shoe Right Footwear Regular Shoe Pain Scale: 0-10 Numeric Is Patient Pain Free? Yes [facility] Nurse 1 - General Ulcer Measurement Start: 02/13/23 10:44 Freq: Status: Active Protocol: Activity Type Activity Date Activity User E-sign Co-sign Detail Recorded Client Recorded Date Recorded By Document 02/13/23 10:46 DE [id number] 02/13/23 10:52 AK 02/13/23 10:46 Wound Center Nurse 1 10. R medial thigh -Combined with other wound No -Current Size (cm) - Length 7 -Current Size (cm) - Width 9.5 -Current Size (cm) - Depth 0.1 -Total Square Cm 66.5 -Date of Last Picture (Recall this 02/13/23 field) -Photo Taken Yes -Tunneling No -Undermining/Tunneling No -Circular Undermining No -Change in Wound Grade/Stage No -Exudate Amt Large -Exudate Type Serosanguineous -Wound Margin Distinct, Outline Attached -Granulation Amt Large (67-100%) -Granulation Quality Red -Slough/Fibrin Yes -Necrosis Amt Small (1-33%) -Necrotic Tissue Type Adherent Slough -Structure Exposed N/A -Texture (Josephine-wound Skin Appearance) Assessed, Scarring -Moisture (Josephine-wound Skin Appearance) No Abnormality, Assessed -Color (Josephine-wound Skin Appearance) No Abnormality, Assessed -Temperature (Josephine-wound Skin No Abnormality Appearance) (Pt Warm) -Tenderness on Palpation (Josephine-wound No Skin Appearance) -Ulcer Cleansing Soap and Water -Foul Odor after Cleansing No -Anesthetic Used 4% Lidocaine Solution WC - Nurse 2 - General Ulcer CM Notes Start: 02/13/23 10:44 Freq: Status: Active Protocol: Activity Type Activity Date Activity User E-sign Co-sign Detail Recorded Client Recorded Date Recorded By Document 02/13/23 11:13 JOHN [id number] 02/13/23 11:21 JOHN 02/13/23 11:13 Wound Center Nurse 2 -Time 11:13 -Correct Patient Yes -Correct Side, Site, Position Yes -Correct Procedure Yes -Procedure Performed Yes -Type of Procedure Debridement -Clinical Debridement Subcutaneous -Tissue Removed Subcutaneous -Post Debridement (cm) - Length 7.5 -Post Debridement (cm) - Width 15.0 -Post Debridement (cm) - Depth 0.1 -Total Square (Post) (cm) 112.50 -Area of Debridement (cm) - Length 7.5 -Area of Debridement (cm) - Width 15.0 -Total Square (Area) (cm) 112.50 -Tunneling No -Undermining/Tunneling No -Circular Undermining No -Wound/Ulcer Outcome Not Healed -Ulcer Cleansing Rinsed/ Irrigated with Saline -Foul Odor after Cleansing No -Bioengineered Tissue No -Bleeding Controlled with Pressure -Treatment Response Procedure Tolerated Well -Offloading No -Debridement - Subq, 1st 20sq cm Yes -Debridement, SubQ, ea addt'l 20sq cm 5 or part thereof Pain Scale: 0-10 Numeric Is Patient Pain Free? Yes Assessment/Plan Assessment/Plan (1) Nonhealing ulcer of right lower extremity with fat layer exposed: CODE(S): L97.912 - Non-pressure chronic ulcer of unspecified part of right lower leg with fat layer exposed (2) Acute postoperative anemia due to expected blood loss: CODE(S): D62 - Acute posthemorrhagic anemia (3) Edema of both lower extremities: CODE(S): R60.0 - Localized edema (4) Chronic acquired lymphedema: CODE(S): I89.0 - Lymphedema, not elsewhere classified (5) Excessive and redundant skin and subcutaneous tissue: CODE(S): L98.7 - Excessive and redundant skin and subcutaneous tissue (6) Intertrigo: CODE(S): L30.4 - Erythema intertrigo (7) Morbid obesity: CODE(S): E66.01 - Morbid (severe) obesity due to excess calories (8) Excessive body weight loss: CODE(S): R63.4 - Abnormal weight loss (9) History of bariatric surgery: CODE(S): Z98.84 - Bariatric surgery status (10) History of excision of mass: CODE(S): Z98.890 - Other specified postprocedural states (11) Former smoker: CODE(S): Z87.891 - Personal history of nicotine dependence PLAN: Plan Patient evaluated at the wound healing center today. Wound care - Right medial leg ulcer sliver alginate topped with ABD or silicone boarder foam dressing daily and as needed after washing ulcer and josephine wound with soap and water. He wears an GRACIA wrap or abdominal binder around his right thigh for compression. He would benefit from home compression pumps for his lymphedema but he needs to have vascular studies which have been ordered in the past but he has never obtained. Encouraged him to have the studies done and he states he is willing to have it done. Will re order the vascular studies since he missed his appointm ent last week. Hgb 8.8 on 10/25/22 Rechecked CBC on 12/12/22, Hgb 10.5. He is to continue the iron supplementation. Prealbumin 21.9 on 10/06/22. Encouraged increase in protein intake to help with wound healing. Follow up 2 weeks.
== END 2023-03-10 23:59 | disposition home or self-care (01) ==
LOC: WC 10:39
PROVIDERS: PCP Internal Medicine; Referring Provider Internal Medicine; Visit Provider Nurse Practitioner Family
DX: L97.122 Non-pressure chronic ulcer of left thigh with fat layer exposed (principal); L97.112 Non-pressure chronic ulcer of right thigh with fat layer exposed; E66.01 Morbid (severe) obesity due to excess calories; Z68.43 Body mass index [BMI] 50.0-59.9, adult; Z87.891 Personal history of nicotine dependence; R60.0 Localized edema; I89.0 Lymphedema, not elsewhere classified; Z98.84 Bariatric surgery status; L30.4 Erythema intertrigo; L98.7 Excessive and redundant skin and subcutaneous tissue
CPT/HCPCS: 11042; 11045

== ENCOUNTER 2023-04-10 10:45 | Outpatient (RCR) | payer MEDICAID, SELFPAY ==
[2023-03-11 00:43] VITALS: BP 168/72; PULSE 59; RESP 20; TEMP 36.2; BMI 57.7
[2023-03-13 10:17] VITALS: BP 168/96; PULSE 63; RESP 18; TEMP 36.6; BMI 57.7
--- NOTE | 2023-03-13 12:05 | PCM.WC.PN ---
History of Present Illness Date of Service: 03/13/23 Chief Complaint: Nonhealing ulcer left medial thigh. History of Wound: 47 year old man presents with areas of redundant skin and subcutaneous tissue in his bilateral medial thighs and abdominal panniculus with associated panniculitis. There is abdominal wall skin crease intertrigo and bilateral medial thigh intertrigo for which he uses powders for relief. This excess skin and subcutaneous tissue was the result of bariatric surgery done in [place] in May,. He lost about 250 lbs and his current weight is about 440 lbs. He has a history of lower extremity lymphedema resulting from the extreme body weight and has persistent dependent edema in his medial thighs which aggravates his symptomatology. He denies trauma. He denies fever. Both areas bother him but the medial thighs are his initial priority as he has trouble with ambulating. We received medical approval from his insurance company for his thigh surgery. Surgery 09/22/20 - Excision redundant skin and subcutaneous tissue left medial and posterior thigh with dermolipectomy. Surgery 10/05/22 - Surgical preparation right medial and posterior thigh with excision redundant skin and subcutaneous tissue with radical dermolipectomy. He went to [facility] for almost a month, he had a wound VAC while he was at [facility]. Hgb 8.7 on . Repeat Hgb 8.8 on 10/25/22 at [facility]. On iron supplementation but with his history of gastric bypass, that may impact his absorption of the iron. Rechecked on 12/12/22 Hgb 10.5. Wound care - Silver alginate covered with ABDs daily and as needed. Today he denies fever and chills and states his appetite is good. Progress of Wound: Right medial leg ulcer is beefy pink, it is getting smaller. There is some scabbing/thick dry skin surrounding the ulcer. He continues to have swelling of his right leg around the proximal lower leg and knee area. He still has not obtained his vascular studies. I had an extensive conversation with him discussing how he would benefit from compression pumps for his lymphedema, but vascular studies need to be done first. Objective Data Objective Data Vital Signs: Vital Signs Temp Pulse Resp BP O2 Del Method 98 F 63 18 168/96 H Room Air 03/13/23 10:03/13/23 10:03/13/23 10:03/13/23 10:17 03/13/23 10:17 Oxygen Delivery Method Room Air Weight: 500 lb Body Mass Index (BMI) 57.7 Charges/Coding Procedures Integumentary 111xxx-113xx: [id number] Margarita subq tissue 20 sq cm/< Add On Codes: 65761 Margarita subq tissue add-on (x2) Debridement Note Debridement Note Wound debrided: Right medial thigh ulcer Laterality: Right Wound Grade/Stage: Stage IV Type of Debridement: Excisional debridement Anesthesia Used: 5% Lidocaine Gel Depth: Down to and including healthy tissue and in the subcutaneous layer Percentage of wound debrided: 100 Instrument Used: 5mm curette Tissue Removed: Devitalized tissue and slough Severity: Fat Layer Exposed Amount of bleeding with debridement: Moderate Bleeding Controlled with: Pressure, Compression and gauze and Silver Nitrate Patient tolerated procedure: Patient tolerated procedure well Post-Debridement Measurements and Additional Note: Post-Debridement Measurements/Treatment - Nurse 1 - General Ulcer Assessment Start: 03/13/23 10:17 Freq: Status: Active Protocol: WILLIAM Activity Type Activity Date Activity User E-sign Co-sign Detail Recorded Client Recorded Date Recorded By Document 03/13/23 10:17 [facility] [id number] 03/13/23 10:24 [facility] 03/13/23 10:17 - Today's Visit Information Type of service 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/[facility] ) Arrival Mode Ambulatory Transfer Assistance None Patient Identification Verified (Name & Yes ) Patient Requires Transmission-Based No Precautions Height and Weight Body Mass Index (BMI) 57.7 BMI Classification Obese Vital Signs Temperature (97.8 F-99.1 F) 98 F Temperature Source Temporal Pulse Rate (60-100) 63 Pulse Location Monitor Respiratory Rate (12-18) 18 Respiratory rate source Observation Oxygen Delivery Method Room Air Blood Pressure (90/60-120/80) 168/96 H Blood Pressure Mean (mm Hg) 120 Source Monitor Position Sitting Blood Pressure Location Right Arm History Since Last Visit- (Skip if this is Patient's initial visit) Have you changed medications since your No last visit? Any new allergies or adverse reactions No Had a fall/change in ADL's that may No increase risk of falls Signs or symptoms of abuse and/or No neglect since last visit Have you been in the hospital since your No last visit? Has dressing in place as prescribed Yes Has compression in place as prescribed Yes Has offloadiing in place as prescribed N/A Experienced any changes in pain level or No management Left Footwear Regular Shoe Right Footwear Regular Shoe Pain Scale: 0-10 Numeric Is Patient Pain Free? Yes - Nurse 1 - General Ulcer Measurement Start: 03/13/23 10:17 Freq: Status: Active Protocol: Activity Type Activity Date Activity User E-sign Co-sign Detail Recorded Client Recorded Date Recorded By Document 03/13/23 10:17 [facility] [id number] 03/13/23 10:24 [facility] 03/13/23 10:17 Wound Center Nurse 1 10. R medial thigh -Combined with other wound No -Current Size (cm) - Length 9.3 -Current Size (cm) - Width 6.3 -Current Size (cm) - Depth 0.1 -Total Square Cm 58.59 -Date of Last Picture (Recall this 03/13/23 field) -Photo Taken Yes -Epithelialization Small 1-33% -Tunneling No -Undermining/Tunneling No -Circular Undermining No -Exudate Amt Large -Exudate Type Sanguineous -Wound Margin Distinct, Outline Attached -Granulation Amt Large (67-100%) -Granulation Quality Red -Slough/Fibrin Yes -Necrosis Amt Small (1-33%) -Necrotic Tissue Type Adherent Slough -Texture (Josephine-wound Skin Appearance) Assessed, Scarring -Moisture (Josephine-wound Skin Appearance) Assessed -Color (Josephine-wound Skin Appearance) Assessed -Temperature (Josephine-wound Skin No Abnormality Appearance) (Pt Warm) -Tenderness on Palpation (Josephine-wound No Skin Appearance) -Ulcer Cleansing Soap and Water -Foul Odor after Cleansing No -Anesthetic Used 4% Lidocaine Solution - Nurse 2 - General Ulcer CM Notes Start: 03/13/23 10:17 Freq: Status: Active Protocol: Activity Type Activity Date Activity User E-sign Co-sign Detail Recorded Client Recorded Date Recorded By Document 03/13/23 10:39 [id number] 03/13/23 10:43 JOHN 03/13/23 10:39 Wound Center Nurse 2 -Time 10:39 -Correct Patient Yes -Correct Side, Site, Position Yes -Correct Procedure Yes -Procedure Performed Yes -Type of Procedure Debridement -Clinical Debridement Subcutaneous -Tissue Removed Subcutaneous -Post Debridement (cm) - Length 9.0 -Post Debridement (cm) - Width 5.0 -Post Debridement (cm) - Depth 0.1 -Total Square (Post) (cm) 45.00 -Area of Debridement (cm) - Length 9 -Area of Debridement (cm) - Width 5.0 -Total Square (Area) (cm) 45.0 -Tunneling No -Undermining/Tunneling No -Circular Undermining No -Wound/Ulcer Outcome Not Healed -Ulcer Cleansing Rinsed/ Irrigated with Saline -Foul Odor after Cleansing No -Bioengineered Tissue No -Bleeding Controlled with Pressure -Treatment Response Procedure Tolerated Well -Offloading No -Debridement - Subq, 1st 20sq cm Yes -Debridement, SubQ, ea addt'l 20sq cm 2 or part thereof Pain Scale: 0-10 Numeric Is Patient Pain Free? Yes - Nurse 3 - General Ulcer D/C NN Start: 03/13/23 10:17 Freq: Status: Active Protocol: Activity Type Activity Date Activity User E-sign Co-sign Detail Recorded Client Recorded Date Recorded By Document 03/13/23 10:58 MW [id number] 03/13/23 11:00 MW 03/13/23 10:58 Wound Care Center Nurse 3 10. R medial thigh -Ulcer Cleansing Rinsed/ Irrigated with Saline -Foul Odor after Cleansing No -Negative Pressure Wound Therapy N/A -Primary Dressing Applied Silvercel -Primary Dressing Covered/Secured with Secured with Tape -Other Covering ABD PAD -Silvercel 1 Right -Lotion applied to leg before No compression wrap -Compression Wrap Desmond Wrap Treatment Response Procedure Tolerated Well Pain Scale: 0-10 Numeric Is Patient Pain Free? Yes Teaching: Wound Center Dressing Your Wound -Person Taught Patient -Teaching Method Discussion, Demonstration -Response to teaching Verbalize understanding WC - Visit Discharge Discharge Condition Stable Ambulatory Status Ambulatory Transportation Private Auto Accompanied by SELF Medication Reconcilliation completed & No provided to patient/care provider Clinical Summary of Care Provided Yes Assessment/Plan Assessment/Plan (1) Nonhealing ulcer of right lower extremity with fat layer exposed: CODE(S): L97.912 - Non-pressure chronic ulcer of unspecified part of right lower leg with fat layer exposed (2) Acute postoperative anemia due to expected blood loss: CODE(S): D62 - Acute posthemorrhagic anemia (3) Edema of both lower extremities: CODE(S): R60.0 - Localized edema (4) Chronic acquired lymphedema: CODE(S): I89.0 - Lymphedema, not elsewhere classified (5) Excessive and redundant skin and subcutaneous tissue: CODE(S): L98.7 - Excessive and redundant skin and subcutaneous tissue (6) Intertrigo: CODE(S): L30.4 - Erythema intertrigo (7) Morbid obesity: CODE(S): E66.01 - Morbid (severe) obesity due to excess calories (8) Excessive body weight loss: CODE(S): R63.4 - Abnormal weight loss (9) History of bariatric surgery: CODE(S): Z98.84 - Bariatric surgery status (10) History of excision of mass: CODE(S): Z98.890 - Other specified postprocedural states (11) Former smoker: CODE(S): Z87.891 - Personal history of nicotine dependence PLAN: Plan Patient evaluated at the wound healing center today. Wound care - Right medial leg ulcer sliver alginate topped with ABD or silicone boarder foam dressing daily and as needed after washing ulcer and josephine wound with soap and water. He wears an DESMOND wrap or abdominal binder around his right thigh for compression. He would benefit from home compression pumps for his lymphedema but he needs to have vascular studies which have been ordered in the past but he has never obtained. Encouraged him to have the studies done and he states he is willing to have it done. Will re order the vascular studies. Stressed the importance of obtaining these studies because he would really benefit from the compression stockings. Hgb 8.8 on 10/25/22 Rechecked CBC on 12/12/22, Hgb 10.5. He is to continue the iron supplementation. Prealbumin 21.9 on 10/06/22. Encouraged increase in protein intake to help with wound healing. Follow up 2 weeks.
--- NOTE | 2023-03-23 09:58 | VDLE_ITS ---
Reason For Study: Edema RIGHT LEFT CFV is compressible, spontaneous, phasic, CFV is compressible, spontaneous, phasic, competent and demonstrates normal competent, and demonstrates normal augmentation. augmentation. FV is compressible, spontaneous, phasic, FV is compressible, spontaneous, phasic, competent and demonstrates normal competent and demonstrates normal augmentation. augmentation. POP V is compressible, spontaneous, phasic, POP V is compressible, spontaneous, phasic, competent and demonstrates normal competent and demonstrates normal augmentation. augmentation. T/P Trunk is compressible. T/P Trunk is compressible. PTV is compressible. PTV is compressible. RT PerV is compressible. LT PerV is compressible. SFJ is INCOMPETENT and measures 1.04 x 1.29 SFJ is INCOMPETENT and measures 0.77 x 0.74 cm. cm. GSV proximal thigh measures 0.70 x 1.00 cm. GSV proximal thigh measures 0.47 x 0.54 cm. GSV at knee measures 0.82 x 0.82 cm. GSV at knee measures 0.40 x 0.45 cm. GSV below knee is INCOMPETENT for greater GSV INCOMPETENT throughout for greater than than 0.5 seconds. 0.5 seconds. GSV above knee is NONCOMPRESSIBLE with mixed GSV above knee is NONCOMPRESSIBLE with bright echogenicity noted within, consistent with intraluminal echoes consistent with chronic acute on chronic SVT. SVT. INCOMPETENT hydraulic miner is noted 10 cm above INCOMPETENT hydraulic miner is noted 12 cm above medial malleolus. medial malleolus. ASV proximal calf is INCOMPETENT for greater ASV at knee is INCOMPETENT for greater than than 0.5 seconds and measures 0.45 x 0.46 cm. 0.5 seconds and measures 0.35 x 0.36 cm. ASV mid calf is INCOMPETENT for greater than ASV proximal calf is INCOMPETENT for greater 0.5 seconds and measures 0.43 x 0.41 cm. than 0.5 seconds and measures 0.39 x 0.40 cm. SSV proximal calf is INCOMPETENT for greater ASV mid calf is INCOMPETENT for greater than than 0.5 seconds and measures 0.34 x 0.32 cm. 0.5 seconds and measures 0.46 x 0.50 cm. Procedure SSV proximal calf is INCOMPETENT for greater This is a venous duplex using B-mode, color than 0.5 seconds and measures 0.25 x 0.31 cm. flow and spectral Doppler. Exam performed in department. Large area of mid thigh with open wound and bandages not assessed. Technically difficult due to patient body habitus. A preliminary report was called and/or faxed to [facility]. VL/Venous Duplex US - Zechariah Extrem Interpretation Summary Deep veins of the lower extremities are bilaterally patent and compressible seg mentally. There is no evidence of deep vein thrombosis on either side. Valvular competence appears in tact within the proximal deep venous systems bilaterally. Sapheno-femoral junctions are bilater ally incompetent . Acute and chronic superficial thrombophlebitis is noted in the right great saph enous vein above the knee. Chronic venous changes are noted in the left great saphenous vein above t he knee. The right great saphenous vein appears incompetent below the knee. The left great sapheno us vein appears segmentally incompetent. Small saphenous veins are patent and incompetent bilat erally. Accessory saphenous veins in the right proximal and mid-calf are incompetent. Accessory s aphenous veins at the left knee, proximal calf, and mid-calf are incompetent. An incompetent perforat or vein is noted in the right calf, located 10 centimeters proximal to the right medial malleolus. An incompetent hydraulic miner vein is noted in the left calf, located 12 centimeters proximal to t he left medial malleolus. Ordering Physician: Kelsey Greene Referring Physician: Brian Johnson Performed By: Pao Live RVT
--- NOTE | 2023-03-23 09:58 | ART_ITS ---
Reason For Study: Leg ulcer Procedure A bilateral lower extremity continuous wave Doppler with analog waveform analysis,segmental pressures,and ankle brachial indexes without exercise. Left Segmental Pressures Left brachial= 153mmHg. Left posterior tibial artery = 205mmHg. Left dorsalis pedis artery = 206mmHg. Left digit = 191 mmHg. The left dorsalis pedis waveforms are triphasic. The left posterior tibial artery waveforms are triphasic. Right Segmental Pressures Right brachial= 161mmHg. Right posterior tibial artery = 205mmHg. Right dorsalis pedis artery = 200mmHg. Right digit = 177 mmHg. The right dorsalis pedis waveforms are triphasic. The right posterior tibial artery waveforms are triphasic. Indices The right ankle brachial index by the dorsalis pedis is 1.24. The right ankle brachial index by the posterior tibial artery is 1.27. The right digital-brachial index is 1.10. The left ankle brachial index by the dorsalis pedis is 1.28. The left ankle brachial index by the posterior tibial artery is 1.27. The left digital-brachial index is 1.19. VL/Lower Ext Art Exam w/o Exercis Interpretation Summary Triphasic Doppler waveforms are noted at ankle level bilaterally. Pulse-volume recordings appear satisfactory at calf, ankle, and digital levels bilaterally. Resting ankle-brac hial indices are normal bilaterally. Digital-brachial indices are normal bilaterally. There is no evidence of significant arterial occlusive disease in the lower ext remities bilaterally. Ordering Physician: Kelsey Greene Referring Physician: Brian Johnson Performed By: Pao Live RVT
[2023-03-27 10:33] VITALS: BP 151/76; PULSE 69; RESP 18; TEMP 36.2; BMI 57.7
--- NOTE | 2023-03-27 11:18 | PN.PCM_ITS ---
History of Present Illness Date of Service: 03/27/23 Chief Complaint: Nonhealing ulcer left medial thigh. History of Wound: 47 year old man presents with areas of redundant skin and subcutaneous tissue in his bilateral medial thighs and abdominal panniculus with associated panniculitis. There is abdominal wall skin crease intertrigo and bilateral medial thigh intertrigo for which he uses powders for relief. This excess skin and subcutaneous tissue was the result of bariatric surgery done in [place] in May,. He lost about 250 lbs and his current weight is about 440 lbs. He has a history of lower extremity lymphedema resulting from the extreme body weight and has persistent dependent edema in his medial thighs which aggravates his symptomatology. He denies trauma. He denies fever. Both areas bother him but the medial thighs are his initial priority as he has trouble with ambulating. We received medical approval from his insurance company for his thigh surgery. Surgery 09/22/20 - Excision redundant skin and subcutaneous tissue left medial and posterior thigh with dermolipectomy. Surgery 10/05/22 - Surgical preparation right medial and posterior thigh with excision redundant skin and subcutaneous tissue with radical dermolipectomy. He went to [facility] for almost a month, he had a wound VAC while he was at [facility]. Hgb 8.7 on . Repeat Hgb 8.8 on 10/25/22 at [facility]. On iron supplementation but with his history of gastric bypass, that may impact his abso rption of the iron. Rechecked on 12/12/22 Hgb 10.5. Arterial studies done on 03/23/23 which have triphasic Doppler waveforms are noted at ankle level bilaterally. Pulse-volume recordings appear satisfactory at calf, ankle, and digital levels bilaterally. Right EDDY= 1.27, Left EDDY= 1.28 There is no evidence of significant arterial occlusive disease in the lower extremities bilaterally. Vascular studies done on 03/23/23 show sapheno-femoral junctions are bilaterally incompetent . Acute and chronic superficial thrombophlebitis is noted in the right great saphenous vein above the knee. Chronic venous changes are noted in the left great saphenous vein above the knee. The right great saphenous vein appears incompetent below the knee. The left great saphenous vein appears segmentally incompetent. Small saphenous veins are patent and incompetent bilaterally. Accessory saphenous veins in the right proximal and mid-calf are incompetent. Accessory saphenous veins at the left knee, proximal calf, and mid-calf are incompetent. An incompetent occupational therapy supervisor vein is noted in the right calf, located 10 centimeters proximal to the right medial malleolus. An incompetent occupational therapy supervisor vein is noted in the left calf, located 12 centimeters proximal to the left medial malleolus. Wound care - Silver alginate covered with ABDs daily and as needed. Wound culture obtained today due to increase size of ulcer. Depending on the results of the culture, it may necessitate the need for treatment with antibiotics. Today he denies fever and chills and states his appetite is good. Progress of Wound: Right medial leg ulcer is beefy pink, but is larger this week. Will culture his wound this week. He finally obtained his vascular studies. Objective Data Objective Data Vital Signs: Vital Signs Temp Pulse Resp BP O2 Del Method 97.1 F L 69 18 151/76 H Room Air 03/27/23 10:33 03/27/23 10:33 03/27/23 10:33 03/27/23 10:33 03/27/23 10:33 Oxygen Delivery Method Room Air Weight: 500 lb Body Mass Index (BMI) 57.7 Charges/Coding Procedures Integumentary 111xxx-113xx: [id number] Margarita subq tissue 20 sq cm/< Debridement Note Debridement Note Wound debrided: Right medial thigh ulcer Laterality: Right Wound Grade/Stage: Stage IV Type of Debridement: Excisional debridement Anesthesia Used: 5% Lidocaine Gel Depth: Down to and including healthy tissue and in the subcutaneous layer Percentage of wound debrided: 100 Instrument Used: 5mm curette Tissue Removed: Devitalized tissue and slough Severity: Fat Layer Exposed Amount of bleeding with debridement: Moderate Bleeding Controlled with: Pressure, Compression and gauze and Silver Nitrate Patient tolerated procedure: Patient tolerated procedure well Post-Debridement Measurements and Additional Note: Post-Debridement Measurements/Treatment - Nurse 1 - General Ulcer Assessment Start: 03/13/23 10:17 Freq: Status: Active Protocol: WILLIAM Activity Type Activity Date Activity User E-sign Co-sign Detail Recorded Client Recorded Date Recorded By Document 03/13/23 10:17 [facility] [id number] 03/13/23 10:24 [facility] Document 03/27/23 10:33 [facility] [id number] 03/27/23 10:41 [facility] 03/13/23 03/27/23 10:17 10:33 - Today's Visit Information Type of service Follow-up Visit 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/TACK DRILLER (Physician/TACK DRILLER ) ) Arrival Mode Ambulatory Ambulatory Transfer Assistance None None Patient Identification Verified (Name & Yes Yes ) Patient Requires Transmission-Based No No Precautions Height and Weight Body Mass Index (BMI) 57.7 57.7 BMI Classification Obese Obese Vital Signs Temperature (97.8 F-99.1 F) 98 F 97.1 F L Temperature Source Temporal Temporal Pulse Rate (60-100) 63 69 Pulse Location Monitor Monitor Respiratory Rate (12-18) 18 18 Respiratory rate source Observation Observation Oxygen Delivery Method Room Air Room Air Blood Pressure (90/60-120/80) 168/96 H 151/76 H Blood Pressure Mean (mm Hg) 120 101 Source Monitor Monitor Position Sitting Sitting Blood Pressure Location Right Arm Right Arm History Since Last Visit- (Skip if this is Patient's initial visit) Have you changed medications since your No No last visit? Any new allergies or adverse reactions No No Had a fall/change in ADL's that may No No increase risk of falls Signs or symptoms of abuse and/or No No neglect since last visit Have you been in the hospital since your No No last visit? Has dressing in place as prescribed Yes Yes Has compression in place as prescribed Yes N/A Has offloadiing in place as prescribed N/A N/A Experienced any changes in pain level or No No management Left Footwear Regular Shoe Regular Shoe Right Footwear Regular Shoe Regular Shoe Pain Scale: 0-10 Numeric Is Patient Pain Free? Yes Yes - Nurse 1 - General Ulcer Measurement Start: 03/13/23 10:17 Freq: Status: Active Protocol: Activity Type Activity Date Activity User E-sign Co-sign Detail Recorded Client Recorded Date Recorded By Document 03/13/23 10:17 [facility] [id number] 03/13/23 10:24 [facility] Document 03/27/23 10:33 [facility] [id number] 03/27/23 10:41 [facility] 03/13/23 03/27/23 10:17 10:33 Wound Center Nurse 1 10. R medial thigh -Combined with other wound No No -Current Size (cm) - Length 9.3 -Current Size (cm) - Width 6.3 -Current Size (cm) - Depth 0.1 -Total Square Cm 58.59 -Date of Last Picture (Recall this 03/13/23 03/27/23 field) -Photo Taken Yes Yes -Epithelialization Small 1-33% Small 1-33% -Tunneling No No -Undermining/Tunneling No No -Circular Undermining No No -Exudate Amt Large Large -Exudate Type Sanguineous Serosanguineous -Wound Margin Distinct, Distinct, Outline Outline Attached Attached -Granulation Amt Large (67-100%) Large (67-100%) -Granulation Quality Red Red -Slough/Fibrin Yes Yes -Necrosis Amt Small (1-33%) Small (1-33%) -Necrotic Tissue Type Adherent Slough Adherent Slough -Texture (Josephine-wound Skin Appearance) Assessed, Assessed, Scarring Scarring -Moisture (Josephine-wound Skin Appearance) Assessed Assessed -Color (Josephine-wound Skin Appearance) Assessed Assessed -Temperature (Josephine-wound Skin No Abnormality No Abnormality Appearance) (Pt Warm) (Pt Warm) -Tenderness on Palpation (Josephine-wound No No Skin Appearance) -Ulcer Cleansing Soap and Water Rinsed/ Irrigated with Saline -Foul Odor after Cleansing No Yes, Due to Product Use -Anesthetic Used 4% Lidocaine 4% Lidocaine Solution Solution WC - Nurse 2 - General Ulcer CM Notes Start: 03/13/23 10:17 Freq: Status: Active Protocol: Activity Type Activity Date Activity User E-sign Co-sign Detail Recorded Client Recorded Date Recorded By Document 03/13/23 10:39 [id number] 03/13/23 10:43 Document 03/27/23 10:56 [id number] 03/27/23 11:01 03/13/23 03/27/23 10:39 10:56 Wound Center Nurse 2 10. R medial thigh -Time 10:39 10:56 -Correct Patient Yes Yes -Correct Side, Site, Position Yes Yes -Correct Procedure Yes Yes -Procedure Performed Yes Yes -Type of Procedure Debridement Debridement -Clinical Debridement Subcutaneous Subcutaneous -Tissue Removed Subcutaneous Subcutaneous -Post Debridement (cm) - Length 9.0 7.4 -Post Debridement (cm) - Width 5.0 9 -Post Debridement (cm) - Depth 0.1 0.1 -Total Square (Post) (cm) 45.00 66.6 -Area of Debridement (cm) - Length 9 7.4 -Area of Debridement (cm) - Width 5.0 9 -Total Square (Area) (cm) 45.0 66.6 -Tunneling No No -Undermining/Tunneling No No -Circular Undermining No No -Wound/Ulcer Outcome Not Healed Not Healed -Ulcer Cleansing Rinsed/ Rinsed/ Irrigated with Irrigated with Saline Saline -Foul Odor after Cleansing No No -Bioengineered Tissue No No -Bleeding Controlled with Pressure Pressure -Treatment Response Procedure Procedure Tolerated Well Tolerated Well -Offloading No No -Debridement - Subq, 1st 20sq cm Yes Yes -Debridement, SubQ, ea addt'l 20sq cm 2 3 or part thereof Pain Scale: 0-10 Numeric Is Patient Pain Free? Yes Yes - Nurse 3 - General Ulcer D/C NN Start: 03/13/23 10:17 Freq: Status: Active Protocol: Activity Type Activity Date Activity User E-sign Co-sign Detail Recorded Client Recorded Date Recorded By Document 03/13/23 10:58 MW [id number] 03/13/23 11:00 MW 03/13/23 10:58 Wound Care Center Nurse 3 10. R medial thigh -Ulcer Cleansing Rinsed/ Irrigated with Saline -Foul Odor after Cleansing No -Negative Pressure Wound Therapy N/A -Primary Dressing Applied Silvercel -Primary Dressing Covered/Secured with Secured with Tape -Other Covering ABD PAD -Silvercel 1 Right -Lotion applied to leg before No compression wrap -Compression Wrap Desmond Wrap Treatment Response Procedure Tolerated Well Pain Scale: 0-10 Numeric Is Patient Pain Free? Yes Teaching: Wound Center Dressing Your Wound -Person Taught Patient -Teaching Method Discussion, Demonstration -Response to teaching Verbalize understanding WC - Visit Discharge Discharge Condition Stable Ambulatory Status Ambulatory Transportation Private Auto Accompanied by SELF Medication Reconcilliation completed & No provided to patient/care provider Clinical Summary of Care Provided Yes Assessment/Plan Assessment/Plan (1) Nonhealing ulcer of right lower extremity with fat layer exposed: CODE(S): L97.912 - Non-pressure chronic ulcer of unspecified part of right lower leg with fat layer exposed (2) Acute postoperative anemia due to expected blood loss: CODE(S): D62 - Acute posthemorrhagic anemia (3) Edema of both lower extremities: CODE(S): R60.0 - Localized edema (4) Chronic acquired lymphedema: CODE(S): I89.0 - Lymphedema, not elsewhere classified (5) Excessive and redundant skin and subcutaneous tissue: CODE(S): L98.7 - Excessive and redundant skin and subcutaneous tissue (6) Intertrigo: CODE(S): L30.4 - Erythema intertrigo (7) Morbid obesity: CODE(S): E66.01 - Morbid (severe) obesity due to excess calories (8) Excessive body weight loss: CODE(S): R63.4 - Abnormal weight loss (9) History of bariatric surgery: CODE(S): Z98.84 - Bariatric surgery status (10) History of excision of mass: CODE(S): Z98.890 - Other specified postprocedural states (11) Former smoker: CODE(S): Z87.891 - Personal history of nicotine dependence PLAN: Plan Patient evaluated at the wound healing center today. Wound care - Right medial leg ulcer sliver alginate topped with ABD or silicone boarder foam dressing daily and as needed after washing ulcer and josephine wound with soap and water. He wears an DESMOND wrap or abdominal binder around his right thigh for compression. A wound culture was obtained today.? A positive culture will necessitate antibiotic therapy. Now that he has had his vascular studies, [facility] Will wait until he sees Dr. Herrera before ordering compression pumps for his lymphedema. Hgb 8.8 on 10/25/22 Rechecked CBC on 12/12/22, Hgb 10.5. He is to continue the iron supplementation. Prealbumin 21.9 on 10/06/22. Encouraged increase in protein intake to help with wound healing. Follow up 2 weeks.
[2023-04-10 11:10] VITALS: BP 128/95; PULSE 64; RESP 20; TEMP 36.5; BMI 57.7
--- NOTE | 2023-04-10 13:14 | PCM.WC.PN ---
History of Present Illness Date of Service: 04/10/23 Chief Complaint: Nonhealing ulcer left medial thigh. History of Wound: 48 year old man presents with areas of redundant skin and subcutaneous tissue in his bilateral medial thighs and abdominal panniculus with associated panniculitis. There is abdominal wall skin crease intertrigo and bilateral medial thigh intertrigo for which he uses powders for relief. This excess skin and subcutaneous tissue was the result of bariatric surgery done in [place] in May,. He lost about 250 lbs and his current weight is about 440 lbs. He has a history of lower extremity lymphedema resulting from the extreme body weight and has persistent dependent edema in his medial thighs which aggravates his symptomatology. He denies trauma. He denies fever. Both areas bother him but the medial thighs are his initial priority as he has trouble with ambulating. We received medical approval from his insurance company for his thigh surgery. Surgery 09/22/20 - Excision redundant skin and subcutaneous tissue left medial and posterior thigh with dermolipectomy. Surgery 10/05/22 - Surgical preparation right medial and posterior thigh with excision redundant skin and subcutaneous tissue with radical dermolipectomy. He went to [facility] for almost a month, he had a wound VAC while he was at [facility]. Hgb 8.7 on . Repeat Hgb 8.8 on 10/25/22 at [facility]. On iron supplementation but with his history of gastric bypass, that may impact his absorption of the iron. Rechecked on 12/12/22 Hgb 10.5. Arterial studies done on 03/23/23 which have triphasic Doppler waveforms are noted at ankle level bilaterally. Pulse-volume recordings appear satisfactory at calf, ankle, and digital levels bilaterally. Right EDDY= 1.27, Left EDDY= 1.28 There is no evidence of significant arterial occlusive disease in the lower extremities bilaterally. Vascular studies done on 03/23/23 show sapheno-femoral junctions are bilaterally incompetent . Acute and chronic superficial thrombophlebitis is noted in the right great saphenous vein above the knee. Chronic venous changes are noted in the left great saphenous vein above the knee. The right great saphenous vein appears incompetent below the knee. The left great saphenous vein appears segmentally incompetent. Small saphenous veins are patent and incompetent bilaterally. Accessory saphenous veins in the right proximal and mid-calf are incompetent. Accessory saphenous veins at the left knee, proximal calf, and mid-calf are incompetent. An incompetent can feeder vein is noted in the right calf, located 10 centimeters proximal to the right medial malleolus. An incompetent can feeder vein is noted in the left calf, located 12 centimeters proximal to the left medial malleolus. Wound care - Silver alginate covered with ABDs daily and as needed. Wound culture obtained today due to increase size of ulcer. Depending on the results of the culture, it may necessitate the need for treatment with antibiotics. Today he denies fever and chills and states his appetite is good. Progress of Wound: Right medial leg ulcer is beefy pink but has increased slough around the edges. He continues to take Bactrim. He would benefit from compression pumps with the severity of his edema/lymphedema. Objective Data Objective Data Vital Signs: Vital Signs Temp Pulse Resp BP O2 Del Method 97.7 F L 64 20 H 128/95 H Room Air 04/10/23 11:10 04/10/23 11:10 04/10/23 11:10 04/10/23 11:10 03/27/23 10:33 Oxygen Delivery Method Room Air Weight: 500 lb Body Mass Index (BMI) 57.7 Lab / Micro Data Micro: Microbiology 03/27/23 11:04 Wound Abcess - Groin Gram Stain - Final 03/27/23 11:04 Wound Abcess - Groin Wound Culture - Final Proteus mirabilis Staphylococcus aureus 03/27/23 11:04 Wound Abcess - Groin Anaerobic Culture - Final No anaerobic bacteria isolated. Charges/Coding Procedures Integumentary 111xxx-113xx: [id number] Margarita subq tissue 20 sq cm/< Add On Codes: [id number] Margarita subq tissue add-on (x2) Debridement Note Debridement Note Wound debrided: Right medial thigh ulcer Laterality: Right Wound Grade/Stage: Stage IV Type of Debridement: Excisional debridement Anesthesia Used: 5% Lidocaine Gel Depth: Down to and including healthy tissue and in the subcutaneous layer Percentage of wound debrided: 100 Instrument Used: 7mm curette Tissue Removed: Devitalized tissue and slough Severity: Fat Layer Exposed Amount of bleeding with debridement: Moderate Bleeding Controlled with: Pressure and Compression and gauze Patient tolerated procedure: Patient tolerated procedure well Post-Debridement Measurements and Additional Note: Post-Debridement Measurements/Treatment WC - Nurse 1 - General Ulcer Assessment Start: 03/13/23 10:17 Freq: Status: Active Protocol: WILLIAM Activity Type Activity Date Activity User E-sign Co-sign Detail Recorded Client Recorded Date Recorded By Document 03/13/23 10:17 [facility] [id number] 03/13/23 10:24 BMF Document 03/27/23 10:33 BMF [id number] 03/27/23 10:41 BMF Document 04/10/23 11:10 DL [id number] 04/10/23 11:19 DL 03/13/23 03/27/23 04/10/23 10:17 10:33 11:10 WC - Today's Visit Information Type of service Follow-up Visit Follow-up Visit 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/ACCOUNT SERVICE ASSOCIATE (Physician/ACCOUNT SERVICE ASSOCIATE (Physician/ACCOUNT SERVICE ASSOCIATE ) ) ) Arrival Mode Ambulatory Ambulatory Ambulatory Transfer Assistance None None None Patient Identification Verified (Name & Yes Yes Yes ) Patient Requires Transmission-Based No No No Precautions Height and Weight Body Mass Index (BMI) 57.7 57.7 57.7 BMI Classification Obese Obese Obese Vital Signs Temperature (97.8 F-99.1 F) 98 F 97.1 F L 97.7 F L Temperature Source Temporal Temporal Temporal Pulse Rate (60-100) 63 69 64 Pulse Location Monitor Monitor Monitor Respiratory Rate (12-18) 18 18 20 H Respiratory rate source Observation Observation Observation Oxygen Delivery Method Room Air Room Air Blood Pressure (90/60-120/80) 168/96 H 151/76 H 128/95 H Blood Pressure Mean (mm Hg) 120 101 106 Source Monitor Monitor Monitor Position Sitting Sitting Blood Pressure Location Right Arm Right Arm History Since Last Visit- (Skip if this is Patient's initial visit) Have you changed medications since your No No No last visit? Any new allergies or adverse reactions No No No Had a fall/change in ADL's that may No No No increase risk of falls Signs or symptoms of abuse and/or No No No neglect since last visit Have you been in the hospital since your No No No last visit? Has dressing in place as prescribed Yes Yes Yes Has compression in place as prescribed Yes N/A Has offloadiing in place as prescribed N/A N/A N/A Experienced any changes in pain level or No No No management Left Footwear Regular Shoe Regular Shoe Right Footwear Regular Shoe Regular Shoe Pain Scale: 0-10 Numeric Is Patient Pain Free? Yes Yes Yes WC - Nurse 1 - General Ulcer Measurement Start: 03/13/23 10:17 Freq: Status: Active Protocol: Activity Type Activity Date Activity User E-sign Co-sign Detail Recorded Client Recorded Date Recorded By Document 03/13/23 10:17 [facility] [id number] 03/13/23 10:24 BM Document 03/27/23 10:33 BMF [id number] 03/27/23 10:41 BMF Document 04/10/23 11:10 DL [id number] 04/10/23 11:19 DL 03/13/23 03/27/23 04/10/23 10:17 10:33 11:10 Wound Center Nurse 1 10. R medial thigh -Combined with other wound No No -Current Size (cm) - Length 9.3 9.8 -Current Size (cm) - Width 6.3 6.2 -Current Size (cm) - Depth 0.1 0.1 -Total Square Cm 58.59 60.76 -Date of Last Picture (Recall this 03/13/23 03/27/23 field) -Photo Taken Yes Yes Yes -Epithelialization Small 1-33% Small 1-33% -Tunneling No No -Undermining/Tunneling No No -Circular Undermining No No -Exudate Amt Large Large Medium -Exudate Type Sanguineous Serosanguineous Serosanguineous -Wound Margin Distinct, Distinct, Thickened Outline Outline Attached Attached -Granulation Amt Large (67-100%) Large (67-100%) Medium (34-66%) -Granulation Quality Red Red [place] -Slough/Fibrin Yes Yes -Necrosis Amt Small (1-33%) Small (1-33%) Medium (34-66%) -Necrotic Tissue Type Adherent Slough Adherent Slough Adherent Slough -Texture (Josephine-wound Skin Appearance) Assessed, Assessed, Scarring Scarring Scarring -Moisture (Josephine-wound Skin Appearance) Assessed Assessed Maceration -Color (Josephine-wound Skin Appearance) Assessed Assessed No Abnormality -Temperature (Josephine-wound Skin No Abnormality No Abnormality No Abnormality Appearance) (Pt Warm) (Pt Warm) (Pt Warm) -Tenderness on Palpation (Josephine-wound No No No Skin Appearance) -Ulcer Cleansing Soap and Water Rinsed/ Soap and Water Irrigated with Saline -Foul Odor after Cleansing No Yes, Due to No Product Use -Anesthetic Used 4% Lidocaine 4% Lidocaine 5% Lidocaine Solution Solution Gel WC - Nurse 2 - General Ulcer CM Notes Start: 03/13/23 10:17 Freq: Status: Active Protocol: Activity Type Activity Date Activity User E-sign Co-sign Detail Recorded Client Recorded Date Recorded By Document 03/13/23 10:39 [id number] 03/13/23 10:43 Document 03/27/23 10:56 [id number] 03/27/23 11:01 Document 04/10/23 11:26 [id number] 04/10/23 11:32 03/13/23 03/27/23 04/10/23 10:39 10:56 11:26 Wound Center Nurse 2 10. R medial thigh -Time 10:39 10:56 11:26 -Correct Patient Yes Yes Yes -Correct Side, Site, Position Yes Yes Yes -Correct Procedure Yes Yes Yes -Procedure Performed Yes Yes Yes -Type of Procedure Debridement Debridement Debridement -Clinical Debridement Subcutaneous Subcutaneous Subcutaneous -Tissue Removed Subcutaneous Subcutaneous Subcutaneous -Post Debridement (cm) - Length 9.0 7.4 6 -Post Debridement (cm) - Width 5.0 9 10 -Post Debridement (cm) - Depth 0.1 0.1 0.1 -Total Square (Post) (cm) 45.00 66.6 60 -Area of Debridement (cm) - Length 9 7.4 6 -Area of Debridement (cm) - Width 5.0 9 10 -Total Square (Area) (cm) 45.0 66.6 60 -Tunneling No No No -Undermining/Tunneling No No No -Circular Undermining No No No -Wound/Ulcer Outcome Not Healed Not Healed Not Healed -Ulcer Cleansing Rinsed/ Rinsed/ Rinsed/ Irrigated with Irrigated with Irrigated with Saline Saline Saline -Foul Odor after Cleansing No No No -Bioengineered Tissue No No No -Bleeding Controlled with Pressure Pressure Pressure -Treatment Response Procedure Procedure Procedure Tolerated Well Tolerated Well Tolerated Well -Offloading No No No -Debridement - Subq, 1st 20sq cm Yes Yes Yes -Debridement, SubQ, ea addt'l 20sq cm 2 3 2 or part thereof Pain Scale: 0-10 Numeric Is Patient Pain Free? Yes Yes Yes - Nurse 3 - General Ulcer D/C NN Start: 03/13/23 10:17 Freq: Status: Active Protocol: Activity Type Activity Date Activity User E-sign Co-sign Detail Recorded Client Recorded Date Recorded By Document 03/13/23 10:58 MW [id number] 03/13/23 11:00 MW Document 03/27/23 11:19 BMF [id number] 03/27/23 11:20 BMF Document 04/10/23 11:49 BM [id number] 04/10/23 11:50 BMF 03/13/23 03/27/23 04/10/23 10:58 11:19 11:49 Wound Care Center Nurse 3 10. R medial thigh -Ulcer Cleansing Rinsed/ Soap and Water Rinsed/ Irrigated with Irrigated with Saline Saline -Foul Odor after Cleansing No No No -Negative Pressure Wound Therapy N/A -Primary Dressing Applied Silvercel Silvercel Silvercel -Other Dressing abd ABD -Primary Dressing Covered/Secured with Secured with Secured with Secured with Tape Tape Tape -Other Covering ABD PAD -Silvercel 1 1 1 Right -Lotion applied to leg before No compression wrap -Compression Wrap Desmond Wrap Desmond Wrap Desmond Wrap Treatment Response Procedure Procedure Procedure Tolerated Well Tolerated Well Tolerated Well Pain Scale: 0-10 Numeric Is Patient Pain Free? Yes Yes Yes Teaching: Wound Center Dressing Your Wound -Person Taught Patient -Teaching Method Discussion, Demonstration -Response to teaching Verbalize understanding - Visit Discharge Discharge Condition Stable Stable Stable Ambulatory Status Ambulatory Ambulatory Ambulatory Transportation Private Auto Private Auto Private Auto Accompanied by SELF Medication Reconcilliation completed & No provided to patient/care provider Clinical Summary of Care Provided Yes Assessment/Plan Assessment/Plan (1) Nonhealing ulcer of right lower extremity with fat layer exposed: CODE(S): L97.912 - Non-pressure chronic ulcer of unspecified part of right lower leg with fat layer exposed (2) Acute postoperative anemia due to expected blood loss: CODE(S): D62 - Acute posthemorrhagic anemia (3) Edema of both lower extremities: CODE(S): R60.0 - Localized edema (4) Chronic acquired lymphedema: CODE(S): I89.0 - Lymphedema, not elsewhere classified (5) Excessive and redundant skin and subcutaneous tissue: CODE(S): L98.7 - Excessive and redundant skin and subcutaneous tissue (6) Intertrigo: CODE(S): L30.4 - Erythema intertrigo (7) Morbid obesity: CODE(S): E66.01 - Morbid (severe) obesity due to excess calories (8) Excessive body weight loss: CODE(S): R63.4 - Abnormal weight loss (9) History of bariatric surgery: CODE(S): Z98.84 - Bariatric surgery status (10) History of excision of mass: CODE(S): Z98.890 - Other specified postprocedural states (11) Former smoker: CODE(S): Z87.891 - Personal history of nicotine dependence PLAN: Plan Patient evaluated at the wound healing center today. Wound care - Right medial leg ulcer, rinse with Dakin's 0.25% solutions, rinse with water then apply sliver alginate topped with ABD or silicone boarder foam dressing daily and as needed after washing ulcer and josephine wound with soap and water. He wears an DESMOND wrap around his right thigh for compression. A wound culture was obtained 03/27/23 positive Proteus mirabilis, Staphylococcus aureus and he is on Bactrim. Now that he has had his vascular studies, will refer him to Dr. Herrera for further evaluation. Will wait until he sees Dr. Herrera Ordered lymphedema compression pumps to use at home to help control his lymphedema/edema. Hgb 8.8 on 10/25/22 Rechecked CBC on 12/12/22, Hgb 10.5. He is to continue the iron supplementation. Prealbumin 21.9 on 10/06/22. Encouraged increase in protein intake to help with wound healing. Follow up 2 weeks.
== END 2023-04-10 23:59 | disposition home or self-care (01) ==
LOC: WC 10:45
PROVIDERS: PCP Internal Medicine; Referring Provider Internal Medicine; Visit Provider Nurse Practitioner Family
DX: L97.112 Non-pressure chronic ulcer of right thigh with fat layer exposed (principal); L97.122 Non-pressure chronic ulcer of left thigh with fat layer exposed; E66.01 Morbid (severe) obesity due to excess calories; Z68.43 Body mass index [BMI] 50.0-59.9, adult; I89.0 Lymphedema, not elsewhere classified; I80.01 Phlebitis and thrombophlebitis of superficial vessels of right lower extremity; L30.4 Erythema intertrigo; Z98.84 Bariatric surgery status; Z87.891 Personal history of nicotine dependence; L98.7 Excessive and redundant skin and subcutaneous tissue; R60.0 Localized edema
CPT/HCPCS: 11042; 11045; 87070; 87075; 87077; 87186; 87205; 93923; 93970

== ENCOUNTER 2023-04-24 10:39 | Outpatient (RCR) | payer MEDICAID, SELFPAY ==
[2023-04-11 00:30] VITALS: BP 128/95; PULSE 64; RESP 20; TEMP 36.5; BMI 57.7
[2023-04-24 10:47] VITALS: BP 181/107; PULSE 56; RESP 20; TEMP 36.9; BMI 57.7
--- NOTE | 2023-04-24 12:36 | PN.PCM_ITS ---
History of Present Illness Date of Service: 04/24/23 Chief Complaint: Nonhealing ulcer left medial thigh. History of Wound: 47 year old man presents with areas of redundant skin and subcutaneous tissue in his bilateral medial thighs and abdominal panniculus with associated panniculitis. There is abdominal wall skin crease intertrigo and bilateral medial thigh intertrigo for which he uses powders for relief. This excess skin and subcutaneous tissue was the result of bariatric surgery done in [place] in May,. He lost about 250 lbs and his current weight is about 440 lbs. He has a history of lower extremity lymphedema resulting from the extreme body weight and has persistent dependent edema in his medial thighs which aggravates his symptomatology. He denies trauma. He denies fever. Both areas bother him but the medial thighs are his initial priority as he has trouble with ambulating. We received medical approval from his insurance company for his thigh surgery. Surgery 09/22/20 - Excision redundant skin and subcutaneous tissue left medial and posterior thigh with dermolipectomy. Surgery 10/05/22 - Surgical preparation right medial and posterior thigh with excision redundant skin and subcutaneous tissue with radical dermolipectomy. He went to [facility] for almost a month, he had a wound VAC while he was at [facility]. Hgb 8.7 on . Repeat Hgb 8.8 on 10/25/22 at [facility]. On iron supplementation but with his history of gastric bypass, that may impact his abso rption of the iron. Rechecked on 12/12/22 Hgb 10.5. Arterial studies done on 03/23/23 which have triphasic Doppler waveforms are noted at ankle level bilaterally. Pulse-volume recordings appear satisfactory at calf, ankle, and digital levels bilaterally. Right EDDY= 1.27, Left EDDY= 1.28 There is no evidence of significant arterial occlusive disease in the lower extremities bilaterally. Vascular studies done on 03/23/23 show sapheno-femoral junctions are bilaterally incompetent . Acute and chronic superficial thrombophlebitis is noted in the right great saphenous vein above the knee. Chronic venous changes are noted in the left great saphenous vein above the knee. The right great saphenous vein appears incompetent below the knee. The left great saphenous vein appears segmentally incompetent. Small saphenous veins are patent and incompetent bilaterally. Accessory saphenous veins in the right proximal and mid-calf are incompetent. Accessory saphenous veins at the left knee, proximal calf, and mid-calf are incompetent. An incompetent supervisor curing room vein is noted in the right calf, located 10 centimeters proximal to the right medial malleolus. An incompetent supervisor curing room vein is noted in the left calf, located 12 centimeters proximal to the left medial malleolus. Wound care - Silver alginate covered with ABDs daily and as needed. A wound culture was obtained 03/27/23 positive Proteus mirabilis, Staphylococcus aureus and he is on Bactrim. Today he denies fever and chills and states his appetite is good. Progress of Wound: Right medial leg ulcer is beefy pink and smaller in size this week. He would benefit from compression pumps with the severity of his edema/lymphedema. Objective Data Objective Data Vital Signs: Vital Signs Temp Pulse Resp BP 98.5 F 56 L 20 H 181/107 H 04/24/23 10:47 04/24/23 10:47 04/24/23 10:47 04/24/23 10:47 Weight: 500 lb Body Mass Index (BMI) 57.7 Charges/Coding Procedures Integumentary 111xxx-113xx: 11448 Margarita subq tissue 20 sq cm/< Add On Codes: [id number] Margarita subq tissue add-on (x2) Debridement Note Debridement Note Wound debrided: Right medial thigh ulcer Laterality: Right Wound Grade/Stage: Stage IV Type of Debridement: Excisional debridement Anesthesia Used: 5% Lidocaine Gel Depth: Down to and including healthy tissue and in the subcutaneous layer Percentage of wound debrided: 100 Instrument Used: 7mm curette Tissue Removed: Devitalized tissue and slough Severity: Fat Layer Exposed Amount of bleeding with debridement: Moderate Bleeding Controlled with: Pressure and Compression and gauze Patient tolerated procedure: Patient tolerated procedure well Post-Debridement Measurements and Additional Note: Post-Debridement Measurements/Treatment [facility]COSTA - Nurse 1 - General Ulcer Assessment Start: 04/24/23 10:47 Freq: Status: Active Protocol: WILLIAM Activity Type Activity Date Activity User E-sign Co-sign Detail Recorded Client Recorded Date Recorded By Document 04/24/23 10:47 [id number] [id number] 04/24/23 10:50 PL 04/24/23 10:47 [facility]COSTA - Today's Visit Information Type of service 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/LIQUOR STORE MANAGER ) Arrival Mode Ambulatory Transfer Assistance None Patient Identification Verified (Name & Yes ) Patient Requires Transmission-Based No Precautions Safety Precautions NA Height and Weight Body Mass Index (BMI) 57.7 BMI Classification Obese Vital Signs Temperature (97.8 F-99.1 F) 98.5 F Temperature Source Temporal Pulse Rate (60-100) 56 L Respiratory Rate (12-18) 20 H Blood Pressure (90/60-120/80) 181/107 H Blood Pressure Mean (mm Hg) 131 History Since Last Visit- (Skip if this is Patient's initial visit) Have you changed medications since your No last visit? Any new allergies or adverse reactions No Had a fall/change in ADL's that may No increase risk of falls Signs or symptoms of abuse and/or No neglect since last visit Have you been in the hospital since your No last visit? Has dressing in place as prescribed Yes Has compression in place as prescribed N/A Has offloadiing in place as prescribed N/A Pain Scale: 0-10 Numeric Is Patient Pain Free? Yes WC - Nurse 2 - General Ulcer CM Notes Start: 04/24/23 10:47 Freq: Status: Active Protocol: Activity Type Activity Date Activity User E-sign Co-sign Detail Recorded Client Recorded Date Recorded By Document 04/24/23 11:19 [id number] 04/24/23 11:21 04/24/23 11:19 Wound Center Nurse 2 10. R medial thigh -Time 11:19 -Correct Patient Yes -Correct Side, Site, Position Yes -Correct Procedure Yes -Procedure Performed Yes -Type of Procedure Debridement -Clinical Debridement Subcutaneous -Tissue Removed Subcutaneous -Post Debridement (cm) - Length 5.6 -Post Debridement (cm) - Width 9.0 -Post Debridement (cm) - Depth 0.1 -Total Square (Post) (cm) 50.40 -Area of Debridement (cm) - Length 5.6 -Area of Debridement (cm) - Width 9.0 -Total Square (Area) (cm) 50.40 -Tunneling No -Undermining/Tunneling No -Circular Undermining No -Wound/Ulcer Outcome Not Healed -Ulcer Cleansing Rinsed/ Irrigated with Saline -Foul Odor after Cleansing No -Bioengineered Tissue No -Bleeding Controlled with Pressure -Treatment Response Procedure Tolerated Well -Offloading No -Debridement - Subq, 1st 20sq cm Yes -Debridement, SubQ, ea addt'l 20sq cm 2 or part thereof Pain Scale: 0-10 Numeric Is Patient Pain Free? Yes WC - Nurse 3 - General Ulcer D/C NN Start: 04/24/23 10:47 Freq: Status: Active Protocol: Activity Type Activity Date Activity User E-sign Co-sign Detail Recorded Client Recorded Date Recorded By Document 04/24/23 11:37 PL [id number] 04/24/23 11:39 PL 04/24/23 11:37 Wound Care Center Nurse 3 10. R medial thigh -Ulcer Cleansing Rinsed/ Irrigated with Saline -Foul Odor after Cleansing No -Primary Dressing Applied Silvercel -Other Dressing ABD -Primary Dressing Covered/Secured with Secured with Tape -Silvercel 1 Right -Other 6 gracia wrap Pain Scale: 0-10 Numeric Is Patient Pain Free? Yes WC - Visit Discharge Discharge Condition Stable Ambulatory Status Ambulatory Transportation Private Auto Assessment/Plan Assessment/Plan (1) Nonhealing ulcer of right lower extremity with fat layer exposed: CODE(S): L97.912 - Non-pressure chronic ulcer of unspecified part of right lower leg with fat layer exposed (2) Acute postoperative anemia due to expected blood loss: CODE(S): D62 - Acute posthemorrhagic anemia (3) Edema of both lower extremities: CODE(S): R60.0 - Localized edema (4) Chronic acquired lymphedema: CODE(S): I89.0 - Lymphedema, not elsewhere classified (5) Excessive and redundant skin and subcutaneous tissue: CODE(S): L98.7 - Excessive and redundant skin and subcutaneous tissue (6) Intertrigo: CODE(S): L30.4 - Erythema intertrigo (7) Morbid obesity: CODE(S): E66.01 - Morbid (severe) obesity due to excess calories (8) Excessive body weight loss: CODE(S): R63.4 - Abnormal weight loss (9) History of bariatric surgery: CODE(S): Z98.84 - Bariatric surgery status (10) History of excision of mass: CODE(S): Z98.890 - Other specified postprocedural states (11) Former smoker: CODE(S): Z87.891 - Personal history of nicotine dependence PLAN: Plan Patient evaluated at the wound healing center today. Wound care - Right medial leg ulcer, rinse with Dakin's 0.25% solutions, rinse with water then apply sliver alginate topped with ABD or silicone boarder foam dressing daily and as needed after washing ulcer and stan wound with soap and water. He wears an GRACIA wrap around his right thigh for compression. A wound culture was obtained 03/27/23 positive Proteus mirabilis, Staphylococcus aureus and he completed Bactrim. Now that he has had his vascular studies, he saw Dr. Herrera who agrees with compression and lymphedema pumps. Ordered lymphedema compression pumps to use at home to help control his lymphedema/edema. Hgb 8.8 on 10/25/22 Rechecked CBC on 12/12/22, Hgb 10.5. He is to continue the iron supplementation. Prealbumin 21.9 on 10/06/22. Encouraged increase in protein intake to help with wound healing. Follow up 2 weeks.
== END 2023-05-11 23:59 | disposition home or self-care (01) ==
LOC: WC 10:39
PROVIDERS: PCP Internal Medicine; Referring Provider Internal Medicine; Visit Provider Nurse Practitioner Family
DX: L97.112 Non-pressure chronic ulcer of right thigh with fat layer exposed (principal); L97.122 Non-pressure chronic ulcer of left thigh with fat layer exposed; E66.01 Morbid (severe) obesity due to excess calories; Z68.43 Body mass index [BMI] 50.0-59.9, adult; I89.0 Lymphedema, not elsewhere classified; I80.01 Phlebitis and thrombophlebitis of superficial vessels of right lower extremity; L30.4 Erythema intertrigo; Z98.84 Bariatric surgery status; Z87.891 Personal history of nicotine dependence; L98.7 Excessive and redundant skin and subcutaneous tissue; R60.0 Localized edema
CPT/HCPCS: 11042; 11045

== ENCOUNTER 2023-05-22 11:23 | Outpatient (RCR) | payer MEDICAID, SELFPAY ==
[2023-05-12 00:34] VITALS: BP 181/107; PULSE 56; RESP 20; TEMP 36.9; BMI 57.7
[2023-05-22 11:38] VITALS: BP 161/91; PULSE 54; RESP 20; TEMP 36.6; BMI 57.7
--- NOTE | 2023-05-22 12:49 | PN.PCM_ITS ---
History of Present Illness Date of Service: 05/22/23 Chief Complaint: Nonhealing ulcer left medial thigh. History of Wound: 48 year old man presents with areas of redundant skin and subcutaneous tissue in his bilateral medial thighs and abdominal panniculus with associated panniculitis. There is abdominal wall skin crease intertrigo and bilateral medial thigh intertrigo for which he uses powders for relief. This excess skin and subcutaneous tissue was the result of bariatric surgery done in [place] in May,. He lost about 250 lbs and his current weight is about 440 lbs. He has a history of lower extremity lymphedema resulting from the extreme body weight and has persistent dependent edema in his medial thighs which aggravates his symptomatology. He denies trauma. He denies fever. Both areas bother him but the medial thighs are his initial priority as he has trouble with ambulating. We received medical approval from his insurance company for his thigh surgery. Surgery 09/22/20 - Excision redundant skin and subcutaneous tissue left medial and posterior thigh with dermolipectomy. Surgery 10/05/22 - Surgical preparation right medial and posterior thigh with excision redundant skin and subcutaneous tissue with radical dermolipectomy. He went to [facility] for almost a month, he had a wound VAC while he was at [facility]. Hgb 8.7 on . Repeat Hgb 8.8 on 10/25/22 at [facility]. On iron supplementation but with his history of gastric bypass, that may impact his abso rption of the iron. Rechecked on 12/12/22 Hgb 10.5. Arterial studies done on 03/23/23 which have triphasic Doppler waveforms are noted at ankle level bilaterally. Pulse-volume recordings appear satisfactory at calf, ankle, and digital levels bilaterally. Right EDDY= 1.27, Left EDDY= 1.28 There is no evidence of significant arterial occlusive disease in the lower extremities bilaterally. Vascular studies done on 03/23/23 show sapheno-femoral junctions are bilaterally incompetent . Acute and chronic superficial thrombophlebitis is noted in the right great saphenous vein above the knee. Chronic venous changes are noted in the left great saphenous vein above the knee. The right great saphenous vein appears incompetent below the knee. The left great saphenous vein appears segmentally incompetent. Small saphenous veins are patent and incompetent bilaterally. Accessory saphenous veins in the right proximal and mid-calf are incompetent. Accessory saphenous veins at the left knee, proximal calf, and mid-calf are incompetent. An incompetent vamp liner vein is noted in the right calf, located 10 centimeters proximal to the right medial malleolus. An incompetent vamp liner vein is noted in the left calf, located 12 centimeters proximal to the left medial malleolus. Wound care - Silver alginate covered with ABDs daily and as needed. A wound culture was obtained 03/27/23 positive Proteus mirabilis, Staphylococcus aureus and he is on Bactrim. Today he denies fever and chills and states his appetite is good. Progress of Wound: Right medial leg ulcer is beefy pink and smaller in size. He has been approved for compression pumps and has received them, he is waiting to be trained how to use them. Objective Data Objective Data Vital Signs: Vital Signs Temp Pulse Resp BP 97.8 F 54 L 20 H 161/91 H 05/22/23 11:38 05/22/23 11:38 05/22/23 11:38 05/22/23 11:38 Weight: 500 lb Body Mass Index (BMI) 57.7 Charges/Coding Procedures Integumentary 111xxx-113xx: 72963 Margarita subq tissue 20 sq cm/< Add On Codes: 84144 Margarita subq tissue add-on Debridement Note Debridement Note Wound debrided: Right medial thigh ulcer Laterality: Right Wound Grade/Stage: Stage IV Type of Debridement: Excisional debridement Anesthesia Used: 5% Lidocaine Gel Depth: Down to and including healthy tissue and in the subcutaneous layer Percentage of wound debrided: 100 Instrument Used: 7mm curette Tissue Removed: Devitalized tissue and slough Severity: Fat Layer Exposed Amount of bleeding with debridement: Moderate Bleeding Controlled with: Pressure and Compression and gauze Patient tolerated procedure: Patient tolerated procedure well Post-Debridement Measurements and Additional Note: Post-Debridement Measurements/Treatment ACOSTA - Nurse 1 - General Ulcer Assessment Start: 05/22/23 11:36 Freq: Status: Active Protocol: WILLIAM Activity Type Activity Date Activity User E-sign Co-sign Detail Recorded Client Recorded Date Recorded By Document 05/22/23 11:38 CHAVEZ [id number] 05/22/23 11:43 DL 05/22/23 11:38 ACOSTA - Today's Visit Information Type of service 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/GAGE DESIGNER ) Arrival Mode Ambulatory Transfer Assistance None Patient Identification Verified (Name & Yes ) Patient Requires Transmission-Based No Precautions Height and Weight Body Mass Index (BMI) 57.7 BMI Classification Obese Vital Signs Temperature (97.8 F-99.1 F) 97.8 F Temperature Source Temporal Pulse Rate (60-100) 54 L Pulse Location Monitor Respiratory Rate (12-18) 20 H Respiratory rate source Observation Blood Pressure (90/60-120/80) 161/91 H Blood Pressure Mean (mm Hg) 114 Source Monitor History Since Last Visit- (Skip if this is Patient's initial visit) Have you changed medications since your No last visit? Any new allergies or adverse reactions No Had a fall/change in ADL's that may No increase risk of falls Signs or symptoms of abuse and/or No neglect since last visit Have you been in the hospital since your No last visit? Has dressing in place as prescribed Yes Has compression in place as prescribed Yes Has offloadiing in place as prescribed N/A Experienced any changes in pain level or No management Pain Scale: 0-10 Numeric Is Patient Pain Free? Yes WC - Nurse 1 - General Ulcer Measurement Start: 05/22/23 11:36 Freq: Status: Active Protocol: Activity Type Activity Date Activity User E-sign Co-sign Detail Recorded Client Recorded Date Recorded By Document 05/22/23 11:38 DL [id number] 05/22/23 11:43 DL 05/22/23 11:38 Wound Center Nurse 1 10. R medial thigh -Current Size (cm) - Length 6.2 -Current Size (cm) - Width 5.5 -Current Size (cm) - Depth 0.1 -Total Square Cm 34.10 -Exudate Amt Medium -Exudate Type Sanguineous -Wound Margin Thickened -Granulation Amt Large (67-100%) -Granulation Quality Red -Necrosis Amt Small (1-33%) -Necrotic Tissue Type Adherent Slough -Structure Exposed N/A -Texture (Josephine-wound Skin Appearance) Scarring -Moisture (Josephine-wound Skin Appearance) Dry/Scaly -Color (Josephine-wound Skin Appearance) No Abnormality -Temperature (Josephine-wound Skin No Abnormality Appearance) (Pt Warm) -Tenderness on Palpation (Josephine-wound No Skin Appearance) -Ulcer Cleansing Soap and Water -Anesthetic Used 5% Lidocaine Gel,Cetacaine - Nurse 2 - General Ulcer CM Notes Start: 05/22/23 11:36 Freq: Status: Active Protocol: Activity Type Activity Date Activity User E-sign Co-sign Detail Recorded Client Recorded Date Recorded By Document 05/22/23 12:04 JOHN [id number] 05/22/23 12:06 JOHN 05/22/23 12:04 Wound Center Nurse 2 -Time 12:04 -Correct Patient Yes -Correct Side, Site, Position Yes -Correct Procedure Yes -Procedure Performed Yes -Type of Procedure Debridement -Clinical Debridement Subcutaneous -Tissue Removed Subcutaneous -Post Debridement (cm) - Length 4.2 -Post Debridement (cm) - Width 6.6 -Post Debridement (cm) - Depth 0.1 -Total Square (Post) (cm) 27.72 -Area of Debridement (cm) - Length 4.2 -Area of Debridement (cm) - Width 6.6 -Total Square (Area) (cm) 27.72 -Tunneling No -Undermining/Tunneling No -Circular Undermining No -Wound/Ulcer Outcome Not Healed -Ulcer Cleansing Rinsed/ Irrigated with Saline -Foul Odor after Cleansing No -Bioengineered Tissue No -Bleeding Controlled with Pressure -Treatment Response Procedure Tolerated Well -Offloading No -Debridement - Subq, 1st 20sq cm Yes -Debridement, SubQ, ea addt'l 20sq cm 1 or part thereof Pain Scale: 0-10 Numeric Is Patient Pain Free? Yes - Nurse 3 - General Ulcer D/C NN Start: 05/22/23 11:36 Freq: Status: Active Protocol: Activity Type Activity Date Activity User E-sign Co-sign Detail Recorded Client Recorded Date Recorded By Document 05/22/23 12:20 [id number] 05/22/23 12:21 DL 05/22/23 12:20 Wound Care Center Nurse 3 10. R medial thigh -Ulcer Cleansing Soap and Water -Foul Odor after Cleansing No -Primary Dressing Applied Silvercel -Primary Dressing Covered/Secured with Dry Gauze & Roll Gauze, Secured with Tape -Other Covering abd/gracia -Silvercel 1 Treatment Response Procedure Tolerated Well Pain Scale: 0-10 Numeric Is Patient Pain Free? Yes - Visit Discharge Discharge Condition Stable Ambulatory Status Ambulatory Transportation Private Auto Assessment/Plan Assessment/Plan (1) Nonhealing ulcer of right lower extremity with fat layer exposed: CODE(S): L97.912 - Non-pressure chronic ulcer of unspecified part of right lower leg with fat layer exposed (2) Acute postoperative anemia due to expected blood loss: CODE(S): D62 - Acute posthemorrhagic anemia (3) Edema of both lower extremities: CODE(S): R60.0 - Localized edema (4) Chronic acquired lymphedema: CODE(S): I89.0 - Lymphedema, not elsewhere classified (5) Excessive and redundant skin and subcutaneous tissue: CODE(S): L98.7 - Excessive and redundant skin and subcutaneous tissue (6) Intertrigo: CODE(S): L30.4 - Erythema intertrigo (7) Morbid obesity: CODE(S): E66.01 - Morbid (severe) obesity due to excess calories (8) Excessive body weight loss: CODE(S): R63.4 - Abnormal weight loss (9) History of bariatric surgery: CODE(S): Z98.84 - Bariatric surgery status (10) History of excision of mass: CODE(S): Z98.890 - Other specified postprocedural states (11) Former smoker: CODE(S): Z87.891 - Personal history of nicotine dependence PLAN: Plan Patient evaluated at the wound healing center today. Wound care - Right medial leg ulcer, rinse with Dakin's 0.25% solutions, rinse with water then apply sliver alginate topped with ABD or silicone boarder foam dressing daily and as needed after washing ulcer and josephine wound with soap and water. He wears an GRACIA wrap around his right thigh for compression. A wound culture was obtained 03/27/23 positive Proteus mirabilis, Staphylococcus aureus and he completed Bactrim. Now that he has had his vascular studies, he saw Dr. Herrera who agrees with compression and lymphedema pumps. Ordered lymphedema compression pumps to use at home to help control his lymphedema/edema. He has received them and is waiting to be trained how to use them from the company. Hgb 8.8 on 10/25/22 Rechecked CBC on 12/12/22, Hgb 10.5. He is to continue the iron supplementation. Prealbumin 21.9 on 10/06/22. Encouraged increase in protein intake to help with wound healing. Follow up 4 weeks.
== END 2023-06-10 23:59 | disposition home or self-care (01) ==
LOC: WC 11:23
PROVIDERS: PCP Internal Medicine; Referring Provider Internal Medicine; Visit Provider Nurse Practitioner Family
DX: L97.122 Non-pressure chronic ulcer of left thigh with fat layer exposed (principal); L97.112 Non-pressure chronic ulcer of right thigh with fat layer exposed; E66.01 Morbid (severe) obesity due to excess calories; Z68.43 Body mass index [BMI] 50.0-59.9, adult; I80.01 Phlebitis and thrombophlebitis of superficial vessels of right lower extremity; R60.0 Localized edema; L98.7 Excessive and redundant skin and subcutaneous tissue; Z87.891 Personal history of nicotine dependence; Z98.84 Bariatric surgery status; L30.4 Erythema intertrigo; I89.0 Lymphedema, not elsewhere classified
CPT/HCPCS: 11042; 11045

== ENCOUNTER 2023-07-10 10:45 | Outpatient (RCR) | payer MEDICAID, SELFPAY ==
[2023-06-11 00:43] VITALS: BP 161/91; PULSE 54; RESP 20; TEMP 36.6; BMI 57.7
[2023-06-19 10:38] VITALS: BP 154/100; PULSE 49; RESP 20; TEMP 35.8; BMI 57.7
--- NOTE | 2023-06-19 12:15 | PN.PCM_ITS ---
History of Present Illness Date of Service: 06/19/23 Chief Complaint: Nonhealing ulcer left medial thigh. History of Wound: 48 year old man presents with areas of redundant skin and subcutaneous tissue in his bilateral medial thighs and abdominal panniculus with associated panniculitis. There is abdominal wall skin crease intertrigo and bilateral medial thigh intertrigo for which he uses powders for relief. This excess skin and subcutaneous tissue was the result of bariatric surgery done in [place] in May,. He lost about 250 lbs and his current weight is about 440 lbs. He has a history of lower extremity lymphedema resulting from the extreme body weight and has persistent dependent edema in his medial thighs which aggravates his symptomatology. He denies trauma. He denies fever. Both areas bother him but the medial thighs are his initial priority as he has trouble with ambulating. We received medical approval from his insurance company for his thigh surgery. Surgery 09/22/20 - Excision redundant skin and subcutaneous tissue left medial and posterior thigh with dermolipectomy. Surgery 10/05/22 - Surgical preparation right medial and posterior thigh with excision redundant skin and subcutaneous tissue with radical dermolipectomy. He went to [facility] for almost a month, he had a wound VAC while he was at [facility] Hgb 8.7 on . Repeat Hgb 8.8 on 10/25/22 at [facility] On iron supplementation but with his history of gastric bypass, that may impact his abso rption of the iron. Rechecked on 12/12/22 Hgb 10.5. Arterial studies done on 03/23/23 which have triphasic Doppler waveforms are noted at ankle level bilaterally. Pulse-volume recordings appear satisfactory at calf, ankle, and digital levels bilaterally. Right EDDY= 1.27, Left EDDY= 1.28 There is no evidence of significant arterial occlusive disease in the lower extremities bilaterally. Vascular studies done on 03/23/23 show sapheno-femoral junctions are bilaterally incompetent . Acute and chronic superficial thrombophlebitis is noted in the right great saphenous vein above the knee. Chronic venous changes are noted in the left great saphenous vein above the knee. The right great saphenous vein appears incompetent below the knee. The left great saphenous vein appears segmentally incompetent. Small saphenous veins are patent and incompetent bilaterally. Accessory saphenous veins in the right proximal and mid-calf are incompetent. Accessory saphenous veins at the left knee, proximal calf, and mid-calf are incompetent. An incompetent manufacturing engineering director vein is noted in the right calf, located 10 centimeters proximal to the right medial malleolus. An incompetent manufacturing engineering director vein is noted in the left calf, located 12 centimeters proximal to the left medial malleolus. Wound care - Silver alginate covered with ABDs daily and as needed. A wound culture was obtained 03/27/23 positive Proteus mirabilis, Staphylococcus aureus and he is on Bactrim. Today he denies fever and chills and states his appetite is good. Progress of Wound: Right medial leg ulcer is beefy pink and stable in size. He has been approved for compression pumps and has received them, he is waiting to be trained how to use them. He states that the medical management trainer still has not come out to teach him how to use the pumps. Objective Data Objective Data Vital Signs: Vital Signs Temp Pulse Resp BP 96.4 F L 49 L 20 H 154/100 H 06/19/23 10:38 06/19/23 10:38 06/19/23 10:38 06/19/23 10:38 Weight: 500 lb Body Mass Index (BMI) 57.7 Charges/Coding Procedures Integumentary 111xxx-113xx: 02110 Margarita subq tissue 20 sq cm/< Add On Codes: 17601 Margarita subq tissue add-on (x2) Debridement Note Debridement Note Wound debrided: Right medial thigh ulcer Laterality: Right Wound Grade/Stage: Stage IV Type of Debridement: Excisional debridement Anesthesia Used: 5% Lidocaine Gel Depth: Down to and including healthy tissue and in the subcutaneous layer Percentage of wound debrided: 100 Instrument Used: 5mm curette Tissue Removed: Devitalized tissue and slough Severity: Fat Layer Exposed Amount of bleeding with debridement: Moderate Bleeding Controlled with: Pressure and Compression and gauze Patient tolerated procedure: Patient tolerated procedure well Post-Debridement Measurements and Additional Note: Post-Debridement Measurements/Treatment WC - Nurse 1 - General Ulcer Assessment Start: 06/19/23 10:38 Freq: Status: Active Protocol: WILLIAM Activity Type Activity Date Activity User E-sign Co-sign Detail Recorded Client Recorded Date Recorded By Document 06/19/23 10:38 DL Desktop 06/19/23 10:46 DL 06/19/23 10:38 - Today's Visit Information Type of service 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/PROFESSOR OF NURSING ) Arrival Mode Ambulatory Transfer Assistance None Patient Identification Verified (Name & Yes ) Patient Requires Transmission-Based No Precautions Height and Weight Body Mass Index (BMI) 57.7 BMI Classification Obese Vital Signs Temperature (97.8 F-99.1 F) 96.4 F L Temperature Source Temporal Pulse Rate (60-100) 49 L Pulse Location Monitor Respiratory Rate (12-18) 20 H Respiratory rate source Observation Blood Pressure (90/60-120/80) 154/100 H Blood Pressure Mean (mm Hg) 118 Source Monitor History Since Last Visit- (Skip if this is Patient's initial visit) Have you changed medications since your No last visit? Any new allergies or adverse reactions No Had a fall/change in ADL's that may No increase risk of falls Signs or symptoms of abuse and/or No neglect since last visit Have you been in the hospital since your Yes last visit? Has dressing in place as prescribed Yes Has compression in place as prescribed N/A Has offloadiing in place as prescribed Yes Experienced any changes in pain level or No management Pain Scale: 0-10 Numeric Is Patient Pain Free? Yes - Nurse 1 - General Ulcer Measurement Start: 06/19/23 10:38 Freq: Status: Active Protocol: Activity Type Activity Date Activity User E-sign Co-sign Detail Recorded Client Recorded Date Recorded By Document 06/19/23 10:38 DL Desktop 06/19/23 10:46 DL 06/19/23 10:38 Wound Center Nurse 1 10. R medial thigh -Current Size (cm) - Length 7.4 -Current Size (cm) - Width 4.7 -Current Size (cm) - Depth 0.1 -Total Square Cm 34.78 -Photo Taken No -Epithelialization Small 1-33% -Tunneling No -Undermining/Tunneling No -Circular Undermining No -Exudate Amt Medium -Exudate Type Serosanguineous -Wound Margin Distinct, Outline Attached -Granulation Amt Medium (34-66%) -Slough/Fibrin Yes -Necrosis Amt Medium (34-66%) -Structure Exposed N/A -Texture (Josephine-wound Skin Appearance) Assessed, Scarring -Moisture (Josephine-wound Skin Appearance) Assessed -Color (Josephine-wound Skin Appearance) Assessed WC - Nurse 2 - General Ulcer CM Notes Start: 06/19/23 10:38 Freq: Status: Active Protocol: Activity Type Activity Date Activity User E-sign Co-sign Detail Recorded Client Recorded Date Recorded By Document 06/19/23 11:00 Laptop 06/19/23 11:03 06/19/23 11:00 Wound Center Nurse 2 -Time 11:01 -Correct Patient Yes -Correct Side, Site, Position Yes -Correct Procedure Yes -Procedure Performed Yes -Type of Procedure Debridement -Clinical Debridement Subcutaneous -Tissue Removed Subcutaneous -Post Debridement (cm) - Length 5.5 -Post Debridement (cm) - Width 8 -Post Debridement (cm) - Depth 0.1 -Total Square (Post) (cm) 44.0 -Area of Debridement (cm) - Length 5.5 -Area of Debridement (cm) - Width 8 -Total Square (Area) (cm) 44.0 -Tunneling No -Undermining/Tunneling No -Circular Undermining No -Wound/Ulcer Outcome Not Healed -Ulcer Cleansing Rinsed/ Irrigated with Saline -Foul Odor after Cleansing No -Bioengineered Tissue No -Bleeding Controlled with Pressure -Treatment Response Procedure Tolerated Well -Offloading No -Debridement - Subq, 1st 20sq cm Yes -Debridement, SubQ, ea addt'l 20sq cm 2 or part thereof Pain Scale: 0-10 Numeric Is Patient Pain Free? Yes - Nurse 3 - General Ulcer D/C NN Start: 06/19/23 10:38 Freq: Status: Active Protocol: Activity Type Activity Date Activity User E-sign Co-sign Detail Recorded Client Recorded Date Recorded By Document 06/19/23 11:20 [facility] Desktop 06/19/23 11:21 [facility] 06/19/23 11:20 Wound Care Center Nurse 3 10. R medial thigh -Ulcer Cleansing Rinsed/ Irrigated with Saline -Foul Odor after Cleansing No -Primary Dressing Applied Fibracol Plus 4x4 -Other Dressing abd -Primary Dressing Covered/Secured with Secured with Tape -Fibracol Plus 4x4 1 Right -Compression Wrap Desmond Wrap Treatment Response Procedure Tolerated Well Pain Scale: 0-10 Numeric Is Patient Pain Free? Yes - Visit Discharge Discharge Condition Stable Ambulatory Status Ambulatory Transportation Private Auto Assessment/Plan Assessment/Plan (1) Nonhealing ulcer of right lower extremity with fat layer exposed: CODE(S): L97.912 - Non-pressure chronic ulcer of unspecified part of right lower leg with fat layer exposed (2) Acute postoperative anemia due to expected blood loss: CODE(S): D62 - Acute posthemorrhagic anemia (3) Edema of both lower extremities: CODE(S): R60.0 - Localized edema (4) Chronic acquired lymphedema: CODE(S): I89.0 - Lymphedema, not elsewhere classified (5) Excessive and redundant skin and subcutaneous tissue: CODE(S): L98.7 - Excessive and redundant skin and subcutaneous tissue (6) Intertrigo: CODE(S): L30.4 - Erythema intertrigo (7) Morbid obesity: CODE(S): E66.01 - Morbid (severe) obesity due to excess calories (8) Excessive body weight loss: CODE(S): R63.4 - Abnormal weight loss (9) History of bariatric surgery: CODE(S): Z98.84 - Bariatric surgery status (10) History of excision of mass: CODE(S): Z98.890 - Other specified postprocedural states (11) Former smoker: CODE(S): Z87.891 - Personal history of nicotine dependence PLAN: Plan Patient evaluated at the wound healing center today. Wound care - Right medial leg ulcer, Fibracol + topped with gauze/ABD dressing daily and as needed after washing ulcer and josephine wound with soap and water. He wears an DESMOND wrap around his right thigh for compression. A wound culture was obtained 03/27/23 positive Proteus mirabilis, Staphylococcus aureus and he completed Bactrim. Now that he has had his vascular studies, he saw Dr. Herrera who agrees with compression and lymphedema pumps. Ordered lymphedema compression pumps to use at home to help control his lymphedema/edema. He has received them and is waiting to be trained how to use them from the company. Stressed importance of starting the compression pumps, this may help heal his ulcer. Prealbumin 21.9 on 10/06/22. Encouraged increase in protein intake to help with wound healing. Follow up 3 weeks.
[2023-07-10 10:42] VITALS: PULSE 55; RESP 18; TEMP 35.7; BMI 57.7
--- NOTE | 2023-07-10 12:42 | PCM.WC.PN ---
History of Present Illness Date of Service: 07/10/23 Chief Complaint: Nonhealing ulcer left medial thigh. History of Wound: 48 year old man presents with areas of redundant skin and subcutaneous tissue in his bilateral medial thighs and abdominal panniculus with associated panniculitis. There is abdominal wall skin crease intertrigo and bilateral medial thigh intertrigo for which he uses powders for relief. This excess skin and subcutaneous tissue was the result of bariatric surgery done in [place] in May,. He lost about 250 lbs and his current weight is about 440 lbs. He has a history of lower extremity lymphedema resulting from the extreme body weight and has persistent dependent edema in his medial thighs which aggravates his symptomatology. He denies trauma. He denies fever. Both areas bother him but the medial thighs are his initial priority as he has trouble with ambulating. We received medical approval from his insurance company for his thigh surgery. Surgery 09/22/20 - Excision redundant skin and subcutaneous tissue left medial and posterior thigh with dermolipectomy. Surgery 10/05/22 - Surgical preparation right medial and posterior thigh with excision redundant skin and subcutaneous tissue with radical dermolipectomy. He went to [facility] for almost a month, he had a wound VAC while he was at [facility]. Hgb 8.7 on . Repeat Hgb 8.8 on 10/25/22 at [facility]. On iron supplementation but with his history of gastric bypass, that may impact his absorption of the iron. Rechecked on 12/12/22 Hgb 10.5. Arterial studies done on 03/23/23 which have triphasic Doppler waveforms are noted at ankle level bilaterally. Pulse-volume recordings appear satisfactory at calf, ankle, and digital levels bilaterally. Right EDDY= 1.27, Left EDDY= 1.28 There is no evidence of significant arterial occlusive disease in the lower extremities bilaterally. Vascular studies done on 03/23/23 show sapheno-femoral junctions are bilaterally incompetent . Acute and chronic superficial thrombophlebitis is noted in the right great saphenous vein above the knee. Chronic venous changes are noted in the left great saphenous vein above the knee. The right great saphenous vein appears incompetent below the knee. The left great saphenous vein appears segmentally incompetent. Small saphenous veins are patent and incompetent bilaterally. Accessory saphenous veins in the right proximal and mid-calf are incompetent. Accessory saphenous veins at the left knee, proximal calf, and mid-calf are incompetent. An incompetent tree tapping laborer vein is noted in the right calf, located 10 centimeters proximal to the right medial malleolus. An incompetent tree tapping laborer vein is noted in the left calf, located 12 centimeters proximal to the left medial malleolus. Wound care - Silver alginate covered with ABDs daily and as needed. A wound culture was obtained 03/27/23 positive Proteus mirabilis, Staphylococcus aureus and he is on Bactrim. Today he denies fever and chills and states his appetite is good. Progress of Wound: Right medial leg ulcer is beefy pink, it is smaller in size. He has been approved for compression pumps and has received them, he is still waiting to be trained how to use them. He states that the vocational trainer still has not come out to teach him how to use the pumps. Objective Data Objective Data Vital Signs: Vital Signs Temp Pulse Resp BP O2 Del Method 96.3 F L 55 L 18 154/100 H Room Air 07/10/23 10:42 07/10/23 10:42 07/10/23 10:42 06/19/23 10:38 07/10/23 10:42 Oxygen Delivery Method Room Air Weight: 500 lb Body Mass Index (BMI) 57.7 Charges/Coding Procedures Integumentary [id number]: [id number] Margarita subq tissue 20 sq cm/< Add On Codes: 30712 Margarita subq tissue add-on Debridement Note Debridement Note Wound debrided: Right medial thigh ulcer Laterality: Right Wound Grade/Stage: Stage IV Type of Debridement: Excisional debridement Anesthesia Used: 5% Lidocaine Gel Depth: Down to and including healthy tissue and in the subcutaneous layer Percentage of wound debrided: 100 Instrument Used: 5mm curette Tissue Removed: Devitalized tissue and slough Severity: Fat Layer Exposed Amount of bleeding with debridement: Moderate Bleeding Controlled with: Pressure and Compression and gauze Patient tolerated procedure: Patient tolerated procedure well Post-Debridement Measurements and Additional Note: Post-Debridement Measurements/Treatment ACOSTA - Nurse 1 - General Ulcer Assessment Start: 06/19/23 10:38 Freq: Status: Active Protocol: WILLIAM Activity Type Activity Date Activity User E-sign Co-sign Detail Recorded Client Recorded Date Recorded By Document 06/19/23 10:38 DL Desktop 06/19/23 10:46 DL Document 07/10/23 10:42 [facility] Desktop 07/10/23 10:53 BMF 06/19/23 07/10/23 10:38 10:42 - Today's Visit Information Type of service Follow-up Visit 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/EVENT DECORATOR AND DESIGNER (Physician/EVENT DECORATOR AND DESIGNER ) ) Arrival Mode Ambulatory Ambulatory Transfer Assistance None None Patient Identification Verified (Name & Yes Yes ) Patient Requires Transmission-Based No No Precautions Height and Weight Body Mass Index (BMI) 57.7 57.7 BMI Classification Obese Obese Vital Signs Temperature (97.8 F-99.1 F) 96.4 F L 96.3 F L Temperature Source Temporal Temporal Pulse Rate (60-100) 49 L 55 L Pulse Location Monitor Monitor Respiratory Rate (12-18) 20 H 18 Respiratory rate source Observation Observation Oxygen Delivery Method Room Air Blood Pressure (90/60-120/80) 154/100 H Blood Pressure Mean (mm Hg) 118 Source Monitor History Since Last Visit- (Skip if this is Patient's initial visit) Have you changed medications since your No No last visit? Any new allergies or adverse reactions No No Had a fall/change in ADL's that may No No increase risk of falls Signs or symptoms of abuse and/or No No neglect since last visit Have you been in the hospital since your Yes No last visit? Has dressing in place as prescribed Yes Yes Has compression in place as prescribed N/A N/A Has offloadiing in place as prescribed Yes N/A Experienced any changes in pain level or No No management Left Footwear Regular Shoe Right Footwear Regular Shoe Pain Scale: 0-10 Numeric Is Patient Pain Free? Yes Yes - Nurse 1 - General Ulcer Measurement Start: 06/19/23 10:38 Freq: Status: Active Protocol: Activity Type Activity Date Activity User E-sign Co-sign Detail Recorded Client Recorded Date Recorded By Document 06/19/23 10:38 DL Desktop 06/19/23 10:46 DL Document 07/10/23 10:42 [facility] Desktop 07/10/23 10:53 BMF 06/19/23 07/10/23 10:38 10:42 Wound Center Nurse 1 10. R medial thigh -Combined with other wound No -Current Size (cm) - Length 7.4 5.6 -Current Size (cm) - Width 4.7 5 -Current Size (cm) - Depth 0.1 0.1 -Total Square Cm 34.78 28.0 -Photo Taken No No -Epithelialization Small 1-33% None Present -Tunneling No No -Undermining/Tunneling No No -Circular Undermining No No -Exudate Amt Medium Large -Exudate Type Serosanguineous Serosanguineous -Wound Margin Distinct, Distinct, Outline Outline Attached Attached -Granulation Amt Medium (34-66%) Large (67-100%) -Granulation Quality Red -Slough/Fibrin Yes No -Necrosis Amt Medium (34-66%) None Present (0 %) -Structure Exposed N/A -Texture (Josephine-wound Skin Appearance) Assessed, Assessed, Scarring Scarring -Moisture (Josephine-wound Skin Appearance) Assessed Assessed -Color (Josephine-wound Skin Appearance) Assessed Assessed -Temperature (Josephine-wound Skin No Abnormality Appearance) (Pt Warm) -Tenderness on Palpation (Josephine-wound No Skin Appearance) -Ulcer Cleansing Rinsed/ Irrigated with Saline -Foul Odor after Cleansing No -Anesthetic Used 5% Lidocaine Gel WC - Nurse 2 - General Ulcer CM Notes Start: 06/19/23 10:38 Freq: Status: Active Protocol: Activity Type Activity Date Activity User E-sign Co-sign Detail Recorded Client Recorded Date Recorded By Document 06/19/23 11:00 Laptop 06/19/23 11:03 Document 07/10/23 11:09 Laptop 07/10/23 11:11 06/19/23 07/10/23 11:00 11:09 Wound Center Nurse 2 10. R medial thigh -Time 11:01 11:09 -Correct Patient Yes Yes -Correct Side, Site, Position Yes Yes -Correct Procedure Yes Yes -Procedure Performed Yes Yes -Type of Procedure Debridement Debridement -Clinical Debridement Subcutaneous Subcutaneous -Tissue Removed Subcutaneous Subcutaneous -Post Debridement (cm) - Length 5.5 4.3 -Post Debridement (cm) - Width 8 5.5 -Post Debridement (cm) - Depth 0.1 0.1 -Total Square (Post) (cm) 44.0 23.65 -Area of Debridement (cm) - Length 5.5 4.3 -Area of Debridement (cm) - Width 8 5.5 -Total Square (Area) (cm) 44.0 23.65 -Tunneling No No -Undermining/Tunneling No No -Circular Undermining No No -Wound/Ulcer Outcome Not Healed Not Healed -Ulcer Cleansing Rinsed/ Rinsed/ Irrigated with Irrigated with Saline Saline -Foul Odor after Cleansing No No -Bioengineered Tissue No No -Bleeding Controlled with Pressure Pressure -Treatment Response Procedure Procedure Tolerated Well Tolerated Well -Offloading No No -Debridement - Subq, 1st 20sq cm Yes Yes -Debridement, SubQ, ea addt'l 20sq cm 2 1 or part thereof Pain Scale: 0-10 Numeric Is Patient Pain Free? Yes Yes - Nurse 3 - General Ulcer D/C NN Start: 06/19/23 10:38 Freq: Status: Active Protocol: Activity Type Activity Date Activity User E-sign Co-sign Detail Recorded Client Recorded Date Recorded By Document 06/19/23 11:20 [facility] Desktop 06/19/23 11:21 [employer] Document 07/10/23 11:25 [facility] Desktop 07/10/23 11:26 [facility] 06/19/23 07/10/23 11:20 11:25 Wound Care Center Nurse 3 10. R medial thigh -Ulcer Cleansing Rinsed/ Rinsed/ Irrigated with Irrigated with Saline Saline -Foul Odor after Cleansing No No -Primary Dressing Applied Fibracol Plus Fibracol Plus 4x4 4x4 -Other Dressing abd abd -Primary Dressing Covered/Secured with Secured with Secured with Tape Tape -Fibracol Plus 4x4 1 1 Right -Compression Wrap Desmond Wrap Desmond Wrap Treatment Response Procedure Procedure Tolerated Well Tolerated Well Pain Scale: 0-10 Numeric Is Patient Pain Free? Yes Yes - Visit Discharge Discharge Condition Stable Stable Ambulatory Status Ambulatory Ambulatory Transportation Private Auto Private Auto Assessment/Plan Assessment/Plan (1) Nonhealing ulcer of right lower extremity with fat layer exposed: CODE(S): L97.912 - Non-pressure chronic ulcer of unspecified part of right lower leg with fat layer exposed (2) Acute postoperative anemia due to expected blood loss: CODE(S): D62 - Acute posthemorrhagic anemia (3) Edema of both lower extremities: CODE(S): R60.0 - Localized edema (4) Chronic acquired lymphedema: CODE(S): I89.0 - Lymphedema, not elsewhere classified (5) Excessive and redundant skin and subcutaneous tissue: CODE(S): L98.7 - Excessive and redundant skin and subcutaneous tissue (6) Intertrigo: CODE(S): L30.4 - Erythema intertrigo (7) Morbid obesity: CODE(S): E66.01 - Morbid (severe) obesity due to excess calories (8) Excessive body weight loss: CODE(S): R63.4 - Abnormal weight loss (9) History of bariatric surgery: CODE(S): Z98.84 - Bariatric surgery status (10) History of excision of mass: CODE(S): Z98.890 - Other specified postprocedural states (11) Former smoker: CODE(S): Z87.891 - Personal history of nicotine dependence PLAN: Plan Patient evaluated at the wound healing center today. Wound care - Right medial leg ulcer, Fibracol + topped with gauze/ABD dressing daily and as needed after washing ulcer and josephine wound with soap and water. He wears an DESMOND wrap around his right thigh for compression. A wound culture was obtained 03/27/23 positive Proteus mirabilis, Staphylococcus aureus and he completed Bactrim. Now that he has had his vascular studies, he saw Dr. Herrera who agrees with compression and lymphedema pumps. Ordered lymphedema compression pumps to use at home to help control his lymphedema/edema. He has received them and is waiting to be trained how to use them from the company. Stressed importance of starting the compression pumps, this may help heal his ulcer. Prealbumin 21.9 on 10/06/22. Encouraged increase in protein intake to help with wound healing. Follow up 3 weeks.
== END 2023-07-11 23:59 | disposition home or self-care (01) ==
LOC: WC 10:45
PROVIDERS: PCP Internal Medicine; Referring Provider Internal Medicine; Visit Provider Nurse Practitioner Family
DX: L97.112 Non-pressure chronic ulcer of right thigh with fat layer exposed (principal); L97.122 Non-pressure chronic ulcer of left thigh with fat layer exposed; E66.01 Morbid (severe) obesity due to excess calories; Z68.43 Body mass index [BMI] 50.0-59.9, adult; I80.01 Phlebitis and thrombophlebitis of superficial vessels of right lower extremity; R60.0 Localized edema; L98.7 Excessive and redundant skin and subcutaneous tissue; Z98.84 Bariatric surgery status; L30.4 Erythema intertrigo; I89.0 Lymphedema, not elsewhere classified; Z87.891 Personal history of nicotine dependence
CPT/HCPCS: 11042; 11045

== ENCOUNTER 2023-07-13 14:53 | Emergency (ER) | payer MEDICAID, SELFPAY ==
[2023-07-13 14:54] VITALS: BP 198/98; PULSE 83; RESP 14; TEMP 36.6; O2SAT 100
[2023-07-13 15:12] VITALS: BMI 51.0
--- NOTE | 2023-07-13 15:32 | EX.ED.DYSGE1 ---
HPI History of Present Illness Chief Complaint: Wound Informant: patient Narrative Narrative: 48-year-old male presenting to the emergency department chief complaint of facial wound. Patient states on Monday he noticed a pimple the bridge of his nose. He states that he squeezed it and got a serosanguineous drainage. Monday he was seen in urgent care and was placed on Bactrim. He saw another provider on Monday was placed on Keflex. He returns today with continued swelling and redness. No reported fever. Patient denies any visual changes. PFSH PFS Medical History Abdominal panniculus Acute postoperative anemia due to expected blood loss Allergic rhinitis Anxiety and depression 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 Brain fog Cardiology follow-up encounter Cellulitis Chronic acquired lymphedema Chronic diastolic heart failure Constipation COPD (chronic obstructive pulmonary disease) Edema of both lower extremities Emphysema of lung Essential (primary) hypertension Excessive and redundant skin and subcutaneous tissue Excessive body weight loss Former tobacco use Hemangioma of skin and subcutaneous tissue Hyperlipidemia Incomplete right bundle branch block Intertrigo Morbid obesity Nonhealing ulcer of left lower extremity with fat layer exposed Obstructive sleep apnea Open wound of left thigh CRISTINO (obstructive sleep apnea) CRISTINO (obstructive sleep apnea) Osteoarthritis Panniculitis Peripheral vascular disease Pulmonary embolism Ventral hernia Home Medications acetaminophen 325 mg tablet 650 mg (2 x 325 mg) PO Q6H PRN PRN Non-cardiac pain (mod-severe) 06/04/19 [Rx Last Taken 10/04/22] calcium carbonate 200 mg calcium (500 mg) chewable tablet 500 mg PO DAILY@0800 07/23/19 [History Last Taken 10/04/22] cholecalciferol (vitamin D3) 50 mcg (2,000 unit) capsule 2,000 unit PO DAILY 07/23/19 [History Last Taken 10/04/22] multivitamin,[id number]-[id number] (Complete Multivitamin tablet) 1 tab PO DAILY 04/29/20 [History Last Taken 10/04/22] hydrocortisone 1 % lotion (Cortisone (hydrocortisone)) 1 applic topical BID PRN skin irritation #120 mL 04/23/21 [Rx Last Taken 10/04/22] hydrocortisone 2.5 % topical cream 1 applic topical BID PRN rash #454 grams 05/27/21 [Rx Last Taken 10/04/22] lisinopril 10 mg tablet 10 mg PO DAILY blood pressure #90 tabs 08/23/21 [Rx Last Taken 10/04/22] nystatin 100,000 unit/gram topical powder 1 applic topical BID #1 BOTTLE 10/10/22 [Rx Last Taken Unknown] atorvastatin 40 mg tablet 40 mg PO QHS cholesterol lowering #90 tabs 01/27/23 [Rx Last Taken Unknown] betamethasone dipropionate 0.05 % topical cream 1 applic topical DAILY PRN skin irritation #45 grams 01/27/23 [Rx Last Taken Unknown] fluticasone propionate 50 mcg/actuation nasal spray,suspension 2 spray intranasal DAILY PRN Allergies #54.6 mL 01/27/23 [Rx Last Taken Unknown] ketoconazole 2 % shampoo 1 applic topical 2XW 4 weeks #120 mL 01/27/23 [Rx Last Taken Unknown] quetiapine 25 mg tablet (Seroquel) 25 mg PO QHS #90 tabs 01/27/23 [Rx Last Taken Unknown] sertraline 50 mg tablet 50 mg PO DAILY #90 tabs 01/27/23 [Rx Last Taken Unknown] sildenafil 25 mg tablet 25 mg PO DAILY PRN sexual activity #30 tabs 01/27/23 [Rx Last Taken Unknown] furosemide 40 mg tablet See Rx Instructions .Route .COMPLEX #90 tabs 04/04/23 [Rx Last Taken Unknown] omeprazole 20 mg capsule,delayed release See Rx Instructions .Route .COMPLEX #90 caps 04/04/23 [Rx Last Taken Unknown] Allergy/AdvReac Type Severity Reaction Status Date / Time Penicillins Allergy Rxn as Verified 07/13/23 14:54 child, unknown Family History Father Myocardial infarction Hypertension Heart disease Arthritis Cancer Leukemia Surgical History History of bariatric surgery History of bariatric surgery History of corrected cleft lip and palate History of excision of mass History of open reduction and internal fixation (ORIF) procedure History of tonsillectomy Social History Smoking Status: Former smoker how long ago did patient quit smokin years ago alcohol intake: never substance use type: does not use caffeine: No ROS ROS ED Constitutional Constitutional ED: Denies chills or weight loss Eyes Eyes: Denies change in vision or diplopia ENT ENT ED: Reports other Details: See history of present illness ; Denies ear pain, rhinorrhea or sore throat Cardiovascular Cardiovascular: Denies chest pain, orthopnea, palpitations or racing heartbeat Respiratory/Chest Respiratory/Chest: Denies cough, dyspnea or orthopnea Gastrointestinal Gastrointestinal: Denies abdominal pain, diarrhea, nausea or vomiting Genitourinary Genitourinary ED: Denies dysuria, hematuria or urinary frequency Musculoskeletal Musculoskeletal: Denies arthralgias or myalgias Integumentary Reports abscess and other; Denies rash Neurologic Neurologic: Denies headache(s) or weakness Psychiatric Psychiatric: Denies anxiety, depression, suicidal ideation or suicidal thoughts Endocrine Endocrinology: Denies polydipsia, polyphagia or polyuria Allergic/Immunologic Allergic/Immunologic ED: Denies mouth swelling, tongue swelling or urticaria EXAM Physical Exam Const Vital Signs: 07/13/23 14:54 Temperature 98 F Temperature Source Temporal Pulse Rate 83 Respiratory Rate 14 Blood Pressure 198/98 H Blood Pressure Mean 131 Pulse Ox 100 Oxygen Delivery Method Room Air Positive well nourished, well developed and obese General Appearance ED: well developed Nutritional Appearance: obese HEENT Reports normocephalic, head/scalp atraumatic and moist mucous membranes HEENT Narrative: There is some erythema and induration in the bridge of the nose. There is a central area that has a scab. There is no fluctuance. There is no significant erythema notated in the periorbital region. Eyes PERRL and EOMs intact bilaterally Neck no lymphadenopathy, supple and no JVD Resp normal respiratory effort and clear to auscultation bilaterally Cardio regular rate, regular rhythm and no murmurs GI normal to inspection, nondistended, normoactive bowel sounds and non-tender Palpation: soft Back/Spine no CVA tenderness and normal ROM Extremity normal to inspection General Extremety ED: Negative for edema General Extremity: Negative for edema Neuro oriented x3 and CN's II-XII intact bilaterally Sensorium / Orientation: alert Motor Exam: strength 5/5 throughout Psych mental status grossly normal Mood & Affect: Negative for depressed or tearful Skin no rashes or lesions noted and no wounds MDM MDM MDM Narrative Medical decision making narrative: The scalp was deroofed and a small amount of pus was expressed. Culture was taken and will be sent for analysis. Bedside ultrasound does not demonstrate any fluid collection that would be amendable to incision and drainage. I recommend the patient use warm moist heat. He should continue the Keflex and the Bactrim. He was given return instructions on worsening symptoms. Not seeing any evidence of deep infection or periorbital cellulitis. He is afebrile and otherwise appears well. Discharge Plan Triage Chief Complaint: Wound ED Provider: Ash Melo Dx/Rx/DC Orders Clinical Impression: Abscess Instructions: ED Abscess Antibiotic Treatment Only Prescriptions: No Action multivitamin,fg-jsom-dyfalivj tablet 1 tab PO DAILY hydrocortisone 2.5 % cream 1 applic topical BID PRN (Reason: rash) Qty: 454 1RF atorvastatin 40 mg tablet 40 mg PO QHS Qty: 90 1RF betamethasone dipropionate 0.05 % cream 1 applic TOPICAL DAILY PRN (Reason: skin irritation) Qty: 45 1RF fluticasone propionate 50 mcg/actuation spray,suspension 2 spray INTRANASAL DAILY PRN (Reason: Allergies) Qty: 54.6 2RF Rx Instructions: administer into each nostril quetiapine [Seroquel] 25 mg tablet 25 mg PO QHS Qty: 90 1RF sertraline 50 mg tablet 50 mg PO DAILY Qty: 90 3RF ketoconazole 2 % shampoo 1 applic TOPICAL 2XW 28 Days Qty: 120 4RF sildenafil 25 mg tablet 25 mg PO DAILY PRN (Reason: sexual activity) Qty: 30 3RF Rx Instructions: administer 30 minutes to 4 hours before activity acetaminophen 325 MG tablet 650 mg PO Q6H PRN PRN (Reason: Non-cardiac pain (mod-severe)) 0RF calcium carbonate 500 MG tablet 500 mg PO DAILY@0800 cholecalciferol (vitamin D3) 2,000 UNIT capsule 2,000 unit PO DAILY nystatin 100,000 unit/gram powder 1 applic topical BID Qty: 1 0RF hydrocortisone [Cortisone (hydrocortisone)] 1 % lotion 1 applic TOPICAL BID PRN (Reason: skin irritation) Qty: 120 1RF lisinopril 10 mg tablet 10 mg PO DAILY Qty: 90 3RF Hold Instructions: Order Changed furosemide 40 mg tablet See Rx Instructions .ROUTE .COMPLEX Qty: 90 0RF Dose Instruction: take 1 tablet by mouth once daily Rx Instructions: take 1 tablet by mouth once daily omeprazole 20 mg capsule,delayed release(DR/EC) See Rx Instructions .ROUTE .COMPLEX Qty: 90 0RF Dose Instruction: take 1 capsule by mouth once daily Rx Instructions: take 1 capsule by mouth once daily Primary Care Provider: Brian Johnson Referrals: Brian Johnson MD [Primary Care Provider] - As Needed Activity Restrictions/Additional Instructions: If worsening redness of the face, fever, or other concerns occur please return to the emergency department for repeat examination. Continue the Bactrim and the Keflex. A culture from the wound was taken today. This generally takes 24 to 48 hours to return. You will receive a phone call if antibiotics need to be changed Disposition Disposition: Home, Self Care
== END 2023-07-13 15:52 | disposition home or self-care (01) ==
PROVIDERS: Emergency Provider Emergency Medicine; Visit Provider Emergency Medicine
DX: J34.0 Abscess, furuncle and carbuncle of nose (principal); I11.0 Hypertensive heart disease with heart failure; I50.32 Chronic diastolic (congestive) heart failure; E78.5 Hyperlipidemia, unspecified; G47.33 Obstructive sleep apnea (adult) (pediatric); E66.9 Obesity, unspecified; Z87.891 Personal history of nicotine dependence; Z79.899 Other long term (current) drug therapy; Z86.711 Personal history of pulmonary embolism
CPT/HCPCS: 87070; 87077; 87186; 87205; 99282

== ENCOUNTER 2023-07-31 13:08 | Outpatient (RCR) | payer MEDICAID, SELFPAY ==
[2023-07-12 00:50] VITALS: BP 154/100; PULSE 55; RESP 18; TEMP 35.7; BMI 57.7
[2023-07-31 13:13] VITALS: BP 144/90; PULSE 55; TEMP 35.9; BMI 57.7
--- NOTE | 2023-07-31 16:32 | PCM.WC.PN ---
History of Present Illness Date of Service: 07/31/23 Chief Complaint: Nonhealing ulcer left medial thigh. History of Wound: 48 year old man presents with areas of redundant skin and subcutaneous tissue in his bilateral medial thighs and abdominal panniculus with associated panniculitis. There is abdominal wall skin crease intertrigo and bilateral medial thigh intertrigo for which he uses powders for relief. This excess skin and subcutaneous tissue was the result of bariatric surgery done in [place] in May,. He lost about 250 lbs and his current weight is about 440 lbs. He has a history of lower extremity lymphedema resulting from the extreme body weight and has persistent dependent edema in his medial thighs which aggravates his symptomatology. He denies trauma. He denies fever. Both areas bother him but the medial thighs are his initial priority as he has trouble with ambulating. We received medical approval from his insurance company for his thigh surgery. Surgery 09/22/20 - Excision redundant skin and subcutaneous tissue left medial and posterior thigh with dermolipectomy. Surgery 10/05/22 - Surgical preparation right medial and posterior thigh with excision redundant skin and subcutaneous tissue with radical dermolipectomy. He went to [facility] for almost a month, he had a wound VAC while he was at [facility]. Hgb 8.7 on . Repeat Hgb 8.8 on 10/25/22 at [facility]. On iron supplementation but with his history of gastric bypass, that may impact his absorption of the iron. Rechecked on 12/12/22 Hgb 10.5. Arterial studies done on 03/23/23 which have triphasic Doppler waveforms are noted at ankle level bilaterally. Pulse-volume recordings appear satisfactory at calf, ankle, and digital levels bilaterally. Right EDDY= 1.27, Left EDDY= 1.28 There is no evidence of significant arterial occlusive disease in the lower extremities bilaterally. Vascular studies done on 03/23/23 show sapheno-femoral junctions are bilaterally incompetent . Acute and chronic superficial thrombophlebitis is noted in the right great saphenous vein above the knee. Chronic venous changes are noted in the left great saphenous vein above the knee. The right great saphenous vein appears incompetent below the knee. The left great saphenous vein appears segmentally incompetent. Small saphenous veins are patent and incompetent bilaterally. Accessory saphenous veins in the right proximal and mid-calf are incompetent. Accessory saphenous veins at the left knee, proximal calf, and mid-calf are incompetent. An incompetent pipe maker vein is noted in the right calf, located 10 centimeters proximal to the right medial malleolus. An incompetent pipe maker vein is noted in the left calf, located 12 centimeters proximal to the left medial malleolus. Wound care - Fibrocol + covered with ABDs daily and as needed. A wound culture was obtained 03/27/23 positive Proteus mirabilis, Staphylococcus aureus and he is on Bactrim. Today he denies fever and chills and states his appetite is good. Progress of Wound: Right medial leg ulcer is smaller in size, there is hypergranulation tissue present. He has been approved for compression pumps and has received them, he still has not been trained how to use them. I stressed the importance of scheduling the training so he can start to use the pumps so it will improve his lymphedema. Objective Data Objective Data Vital Signs: Vital Signs Temp Pulse Resp BP O2 Del Method 96.6 F L 55 L 18 144/90 H Room Air 07/31/23 13:13 07/31/23 13:13 07/12/23 00:50 07/31/23 13:13 07/31/23 13:13 Oxygen Delivery Method Room Air Weight: 500 lb Body Mass Index (BMI) 57.7 Charges/Coding Procedures Integumentary 111xxx-113xx: 32062 Margarita subq tissue 20 sq cm/< Add On Codes: 19503 Margarita subq tissue add-on Debridement Note Debridement Note Wound debrided: Right medial thigh ulcer Laterality: Right Wound Grade/Stage: Stage IV Type of Debridement: Excisional debridement Anesthesia Used: 5% Lidocaine Gel Depth: Down to and including healthy tissue and in the subcutaneous layer Percentage of wound debrided: 100 Instrument Used: 7mm curette Tissue Removed: Devitalized tissue and slough and hypergranulation tissue Severity: Fat Layer Exposed Amount of bleeding with debridement: Moderate Bleeding Controlled with: Pressure, Compression and gauze and Silver Nitrate Patient tolerated procedure: Patient tolerated procedure well Post-Debridement Measurements and Additional Note: Post-Debridement Measurements/Treatment ACOSTA - Nurse 1 - General Ulcer Assessment Start: 07/31/23 13:11 Freq: Status: Active Protocol: WILLIAM Activity Type Activity Date Activity User E-sign Co-sign Detail Recorded Client Recorded Date Recorded By Document 07/31/23 13:13 Desktop 07/31/23 13:21 07/31/23 13:13 WC - Today's Visit Information Type of service 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/COMPENSATION SPECIALIST ) Arrival Mode Ambulatory Transfer Assistance None Patient Identification Verified (Name & Yes ) Patient Requires Transmission-Based No Precautions Safety Precautions NA Height and Weight Body Mass Index (BMI) 57.7 BMI Classification Obese Vital Signs Temperature (97.8 F-99.1 F) 96.6 F L Temperature Source Temporal Pulse Rate (60-100) 55 L Pulse Location Monitor Oxygen Delivery Method Room Air Blood Pressure (90/60-120/80) 144/90 H Blood Pressure Mean (mm Hg) 108 Source Monitor Position Sitting Blood Pressure Location Right Arm Pain Scale: 0-10 Numeric Is Patient Pain Free? Yes WC - Nurse 1 - General Ulcer Measurement Start: 07/31/23 13:11 Freq: Status: Active Protocol: Activity Type Activity Date Activity User E-sign Co-sign Detail Recorded Client Recorded Date Recorded By Document 07/31/23 13:13 [employer] 07/31/23 13:21 07/31/23 13:13 Wound Center Nurse 1 10. R medial thigh -Current Size (cm) - Length 4.5 -Current Size (cm) - Width 4.0 -Current Size (cm) - Depth 0.1 -Total Square Cm 18.00 -Photo Taken No -Epithelialization Small 1-33% -Tunneling No -Undermining/Tunneling No -Circular Undermining No -Exudate Amt Medium -Exudate Type Serous -Wound Margin Fibrotic Scar, Thickened Scar -Granulation Amt Large (67-100%) -Granulation Quality Hyper- granulation -Necrosis Amt None Present (0 %) -Structure Exposed N/A -Texture (Josephine-wound Skin Appearance) Assessed, Scarring -Moisture (Josephine-wound Skin Appearance) Assessed -Color (Josephine-wound Skin Appearance) Assessed -Temperature (Josephine-wound Skin No Abnormality Appearance) (Pt Warm) -Ulcer Cleansing Soap and Water -Foul Odor after Cleansing No -Anesthetic Used 5% Lidocaine Gel WC - Nurse 2 - General Ulcer CM Notes Start: 07/31/23 13:11 Freq: Status: Active Protocol: Activity Type Activity Date Activity User E-sign Co-sign Detail Recorded Client Recorded Date Recorded By Document 07/31/23 13:34 Desktop 07/31/23 13:41 07/31/23 13:34 Wound Center Nurse 2 -Time 13:34 -Correct Patient Yes -Correct Side, Site, Position Yes -Correct Procedure Yes -Procedure Performed Yes -Type of Procedure Debridement -Clinical Debridement Subcutaneous -Tissue Removed Subcutaneous -Post Debridement (cm) - Length 4.8 -Post Debridement (cm) - Width 4.8 -Post Debridement (cm) - Depth 0.1 -Total Square (Post) (cm) 23.04 -Area of Debridement (cm) - Length 4.8 -Area of Debridement (cm) - Width 4.8 -Total Square (Area) (cm) 23.04 -Tunneling No -Undermining/Tunneling No -Circular Undermining No -Wound/Ulcer Outcome Not Healed -Ulcer Cleansing Not Cleansed -Foul Odor after Cleansing No -Bioengineered Tissue No -Bleeding Controlled with Pressure,Silver Nitrate -Treatment Response Procedure Tolerated Well -Debridement - Subq, 1st 20sq cm Yes -Debridement, SubQ, ea addt'l 20sq cm 1 or part thereof Pain Scale: 0-10 Numeric Is Patient Pain Free? Yes - Nurse 3 - General Ulcer D/C NN Start: 07/31/23 13:11 Freq: Status: Active Protocol: Activity Type Activity Date Activity User E-sign Co-sign Detail Recorded Client Recorded Date Recorded By Document 07/31/23 13:41 Desktop 07/31/23 13:46 07/31/23 13:41 Wound Care Center Nurse 3 10. R medial thigh -Ulcer Cleansing Rinsed/ Irrigated with Saline -Foul Odor after Cleansing No -Primary Dressing Applied Fibracol Plus 4x4 -Other Dressing abd -Primary Dressing Covered/Secured with Secured with Tape -Fibracol Plus 4x4 1 Treatment Response Procedure Tolerated Well Pain Scale: 0-10 Numeric Is Patient Pain Free? Yes - Visit Discharge Discharge Condition Stable Ambulatory Status Ambulatory Transportation Private Auto Assessment/Plan Assessment/Plan (1) Nonhealing ulcer of right lower extremity with fat layer exposed: CODE(S): L97.912 - Non-pressure chronic ulcer of unspecified part of right lower leg with fat layer exposed (2) Acute postoperative anemia due to expected blood loss: CODE(S): D62 - Acute posthemorrhagic anemia (3) Edema of both lower extremities: CODE(S): R60.0 - Localized edema (4) Chronic acquired lymphedema: CODE(S): I89.0 - Lymphedema, not elsewhere classified (5) Excessive and redundant skin and subcutaneous tissue: CODE(S): L98.7 - Excessive and redundant skin and subcutaneous tissue (6) Intertrigo: CODE(S): L30.4 - Erythema intertrigo (7) Morbid obesity: CODE(S): E66.01 - Morbid (severe) obesity due to excess calories (8) Excessive body weight loss: CODE(S): R63.4 - Abnormal weight loss (9) History of bariatric surgery: CODE(S): Z98.84 - Bariatric surgery status (10) History of excision of mass: CODE(S): Z98.890 - Other specified postprocedural states (11) Former smoker: CODE(S): Z87.891 - Personal history of nicotine dependence PLAN: Plan Patient evaluated at the wound healing center today. Silver nitrate used due to the amount of post debridement bleeding due to the hypergranulation tissue that was present. Hopefully using the silver nitrate, it should help prevent hypergranulation tissue from forming. Wound care - Right medial leg ulcer, Fibracol + topped with gauze/ABD dressing daily and as needed after washing ulcer and josephine wound with soap and water. He wears an GRACIA wrap around his right thigh for compression. A wound culture was obtained 03/27/23 positive Proteus mirabilis, Staphylococcus aureus and he completed Bactrim. Now that he has had his vascular studies, he saw Dr. Herrera who agrees with compression and lymphedema pumps. Ordered lymphedema compression pumps to use at home to help control his lymphedema/edema. He has received them and is waiting to be trained how to use them from the company. Stressed importance of scheduling the appointment to be trained to use them to help control his lymphedema. Reinforced that he actually needs to use the pumps to help improve his lymphedema. Prealbumin 21.9 on 10/06/22. Encouraged increase in protein intake to help with wound healing. Follow up 3 weeks.
== END 2023-08-10 23:59 | disposition home or self-care (01) ==
LOC: WC 13:08
PROVIDERS: Referring Provider Internal Medicine; Visit Provider Nurse Practitioner Family
DX: L97.112 Non-pressure chronic ulcer of right thigh with fat layer exposed (principal); E66.01 Morbid (severe) obesity due to excess calories; Z68.43 Body mass index [BMI] 50.0-59.9, adult; I80.01 Phlebitis and thrombophlebitis of superficial vessels of right lower extremity; I89.0 Lymphedema, not elsewhere classified; R60.0 Localized edema; L98.7 Excessive and redundant skin and subcutaneous tissue; L30.4 Erythema intertrigo; Z98.84 Bariatric surgery status; Z98.890 Other specified postprocedural states; Z87.891 Personal history of nicotine dependence
CPT/HCPCS: 11042; 11045

== ENCOUNTER 2023-08-28 10:46 | Outpatient (RCR) | payer MEDICAID, SELFPAY ==
[2023-08-11 00:21] VITALS: BP 144/90; PULSE 55; RESP 18; TEMP 35.9; BMI 57.7
[2023-08-28 10:54] VITALS: BP 160/93; PULSE 61; RESP 18; TEMP 36.1; BMI 57.7
--- NOTE | 2023-08-28 11:52 | PCM.WC.PN ---
History of Present Illness Date of Service: 08/28/23 Chief Complaint: Nonhealing ulcer left medial thigh. History of Wound: 48 year old man presents with areas of redundant skin and subcutaneous tissue in his bilateral medial thighs and abdominal panniculus with associated panniculitis. There is abdominal wall skin crease intertrigo and bilateral medial thigh intertrigo for which he uses powders for relief. This excess skin and subcutaneous tissue was the result of bariatric surgery done in [place] in May,. He lost about 250 lbs and his current weight is about 440 lbs. He has a history of lower extremity lymphedema resulting from the extreme body weight and has persistent dependent edema in his medial thighs which aggravates his symptomatology. He denies trauma. He denies fever. Both areas bother him but the medial thighs are his initial priority as he has trouble with ambulating. We received medical approval from his insurance company for his thigh surgery. Surgery 09/22/20 - Excision redundant skin and subcutaneous tissue left medial and posterior thigh with dermolipectomy. Surgery 10/05/22 - Surgical preparation right medial and posterior thigh with excision redundant skin and subcutaneous tissue with radical dermolipectomy. He went to [facility] for almost a month, he had a wound VAC while he was at [facility]. Hgb 8.7 on . Repeat Hgb 8.8 on 10/25/22 at [facility]. On iron supplementation but with his history of gastric bypass, that may impact his absorption of the iron. Rechecked on 12/12/22 Hgb 10.5. Arterial studies done on 03/23/23 which have triphasic Doppler waveforms are noted at ankle level bilaterally. Pulse-volume recordings appear satisfactory at calf, ankle, and digital levels bilaterally. Right EDDY= 1.27, Left EDDY= 1.28 There is no evidence of significant arterial occlusive disease in the lower extremities bilaterally. Vascular studies done on 03/23/23 show sapheno-femoral junctions are bilaterally incompetent . Acute and chronic superficial thrombophlebitis is noted in the right great saphenous vein above the knee. Chronic venous changes are noted in the left great saphenous vein above the knee. The right great saphenous vein appears incompetent below the knee. The left great saphenous vein appears segmentally incompetent. Small saphenous veins are patent and incompetent bilaterally. Accessory saphenous veins in the right proximal and mid-calf are incompetent. Accessory saphenous veins at the left knee, proximal calf, and mid-calf are incompetent. An incompetent air control/anti air warfare officer vein is noted in the right calf, located 10 centimeters proximal to the right medial malleolus. An incompetent air control/anti air warfare officer vein is noted in the left calf, located 12 centimeters proximal to the left medial malleolus. Wound care - Fibrocol + covered with ABDs daily and as needed. A wound culture was obtained 03/27/23 positive Proteus mirabilis, Staphylococcus aureus and he is on Bactrim. Today he denies fever and chills and states his appetite is good. Progress of Wound: Right medial leg ulcer is stable. He has been approved for compression pumps and has received them, he is not consistently using them. Objective Data Objective Data Vital Signs: Vital Signs Temp Pulse Resp BP O2 Del Method 97 F L 61 18 160/93 H Room Air 08/28/23 10:54 08/28/23 10:54 08/28/23 10:54 08/28/23 10:54 08/28/23 10:54 Oxygen Delivery Method Room Air Weight: 500 lb Body Mass Index (BMI) 57.7 Charges/Coding Procedures Integumentary 111xxx-113xx: 95859 Margarita subq tissue 20 sq cm/< Debridement Note Debridement Note Wound debrided: Right medial thigh ulcer Laterality: Right Wound Grade/Stage: Stage IV Type of Debridement: Excisional debridement Anesthesia Used: 5% Lidocaine Gel Depth: Down to and including healthy tissue and in the subcutaneous layer Percentage of wound debrided: 100 Instrument Used: 7mm curette Tissue Removed: Devitalized tissue and slough and hypergranulation tissue Severity: Fat Layer Exposed Amount of bleeding with debridement: Moderate Bleeding Controlled with: Pressure and Compression and gauze Patient tolerated procedure: Patient tolerated procedure well Post-Debridement Measurements and Additional Note: Post-Debridement Measurements/Treatment [facility]STA - Nurse 1 - General Ulcer Assessment Start: 08/28/23 10:54 Freq: Status: Active Protocol: WILLIAM Activity Type Activity Date Activity User E-sign Co-sign Detail Recorded Client Recorded Date Recorded By Document 08/28/23 10:54 [facility] Desktop 08/28/23 11:00 [facility] 08/28/23 10:54 - Today's Visit Information Type of service 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/ENTERTAINMENT REPORTER ) Arrival Mode Ambulatory Transfer Assistance None Patient Identification Verified (Name & Yes ) Patient Requires Transmission-Based No Precautions Height and Weight Body Mass Index (BMI) 57.7 BMI Classification Obese Vital Signs Temperature (97.8 F-99.1 F) 97 F L Temperature Source Temporal Pulse Rate (60-100) 61 Pulse Location Monitor Respiratory Rate (12-18) 18 Respiratory rate source Observation Oxygen Delivery Method Room Air Blood Pressure (90/60-120/80) 160/93 H Blood Pressure Mean (mm Hg) 115 Source Monitor Position Sitting Blood Pressure Location Left Arm History Since Last Visit- (Skip if this is Patient's initial visit) Have you changed medications since your No last visit? Any new allergies or adverse reactions No Had a fall/change in ADL's that may No increase risk of falls Signs or symptoms of abuse and/or No neglect since last visit Have you been in the hospital since your No last visit? Has dressing in place as prescribed Yes Has compression in place as prescribed N/A Has offloadiing in place as prescribed N/A Experienced any changes in pain level or No management Left Footwear Regular Shoe Right Footwear Regular Shoe Pain Scale: 0-10 Numeric Is Patient Pain Free? Yes WC - Nurse 1 - General Ulcer Measurement Start: 08/28/23 10:54 Freq: Status: Active Protocol: Activity Type Activity Date Activity User E-sign Co-sign Detail Recorded Client Recorded Date Recorded By Document 08/28/23 10:54 [facility] Desktop 08/28/23 11:00 [facility] 08/28/23 10:54 Wound Center Nurse 1 10. R medial thigh -Combined with other wound No -Current Size (cm) - Length 4.7 -Current Size (cm) - Width 5.4 -Current Size (cm) - Depth 0.1 -Total Square Cm 25.38 -Date of Last Picture (Recall this 08/28/23 field) -Photo Taken Yes -Epithelialization Small 1-33% -Tunneling No -Undermining/Tunneling No -Circular Undermining No -Exudate Amt Medium -Exudate Type Serosanguineous -Wound Margin Distinct, Outline Attached -Granulation Amt Large (67-100%) -Granulation Quality Red -Slough/Fibrin Yes -Necrosis Amt Small (1-33%) -Necrotic Tissue Type Adherent Slough -Texture (Josephine-wound Skin Appearance) Assessed, Scarring -Moisture (Josephine-wound Skin Appearance) Assessed,Dry/ Scaly -Color (Josephine-wound Skin Appearance) Assessed -Temperature (Josephine-wound Skin No Abnormality Appearance) (Pt Warm) -Tenderness on Palpation (Josephine-wound No Skin Appearance) -Ulcer Cleansing Rinsed/ Irrigated with Saline -Foul Odor after Cleansing No -Anesthetic Used 5% Lidocaine Gel WC - Nurse 2 - General Ulcer CM Notes Start: 08/28/23 10:54 Freq: Status: Active Protocol: Activity Type Activity Date Activity User E-sign Co-sign Detail Recorded Client Recorded Date Recorded By Document 08/28/23 11:19 Laptop 08/28/23 11:22 08/28/23 11:19 Wound Center Nurse 2 -Time 11:20 -Correct Patient Yes -Correct Side, Site, Position Yes -Correct Procedure Yes -Procedure Performed Yes -Type of Procedure Debridement -Clinical Debridement Subcutaneous -Tissue Removed Subcutaneous -Post Debridement (cm) - Length 5.2 -Post Debridement (cm) - Width 3.7 -Post Debridement (cm) - Depth 0.2 -Total Square (Post) (cm) 19.24 -Area of Debridement (cm) - Length 5.2 -Area of Debridement (cm) - Width 3.7 -Total Square (Area) (cm) 19.24 -Tunneling No -Undermining/Tunneling No -Circular Undermining No -Wound/Ulcer Outcome Not Healed -Ulcer Cleansing Rinsed/ Irrigated with Saline -Foul Odor after Cleansing No -Bioengineered Tissue No -Bleeding Controlled with Pressure -Treatment Response Procedure Tolerated Well -Offloading No -Debridement - Subq, 1st 20sq cm Yes Pain Scale: 0-10 Numeric Is Patient Pain Free? Yes - Nurse 3 - General Ulcer D/C NN Start: 08/28/23 10:54 Freq: Status: Active Protocol: Activity Type Activity Date Activity User E-sign Co-sign Detail Recorded Client Recorded Date Recorded By Document 08/28/23 11:28 KW Desktop 08/28/23 11:28 KW 08/28/23 11:28 Wound Care Center Nurse 3 10. R medial thigh -Ulcer Cleansing Rinsed/ Irrigated with Saline -Primary Dressing Applied Promogran Faby Matter -Primary Dressing Covered/Secured with Dry Gauze -Promogran Faby Matter 1 Pain Scale: 0-10 Numeric Is Patient Pain Free? Yes WC - Visit Discharge Discharge Condition Stable Ambulatory Status Ambulatory Transportation Private Auto Medication Reconcilliation completed & No provided to patient/care provider Clinical Summary of Care Provided Yes Assessment/Plan Assessment/Plan (1) Nonhealing ulcer of right lower extremity with fat layer exposed: CODE(S): L97.912 - Non-pressure chronic ulcer of unspecified part of right lower leg with fat layer exposed (2) Acute postoperative anemia due to expected blood loss: CODE(S): D62 - Acute posthemorrhagic anemia (3) Edema of both lower extremities: CODE(S): R60.0 - Localized edema (4) Chronic acquired lymphedema: CODE(S): I89.0 - Lymphedema, not elsewhere classified (5) Excessive and redundant skin and subcutaneous tissue: CODE(S): L98.7 - Excessive and redundant skin and subcutaneous tissue (6) Intertrigo: CODE(S): L30.4 - Erythema intertrigo (7) Morbid obesity: CODE(S): E66.01 - Morbid (severe) obesity due to excess calories (8) Excessive body weight loss: CODE(S): R63.4 - Abnormal weight loss (9) History of bariatric surgery: CODE(S): Z98.84 - Bariatric surgery status (10) History of excision of mass: CODE(S): Z98.890 - Other specified postprocedural states (11) Former smoker: CODE(S): Z87.891 - Personal history of nicotine dependence PLAN: Plan Patient evaluated at the wound healing center today. Wound care - Right medial leg ulcer stop Fibracol + and start Faby topped with gauze/ABD dressing daily and as needed after washing ulcer and josephine wound with soap and water. He wears an GRACIA wrap around his right thigh for compression. A wound culture was obtained 03/27/23 positive Proteus mirabilis, Staphylococcus aureus and he completed Bactrim. Now that he has had his vascular studies, he saw Dr. Herrera who agrees with compression and lymphedema pumps. Ordered lymphedema compression pumps to use at home to help control his lymphedema/edema. He has not been consistently wearing them. Reinforced that he actually needs to use the pumps to help improve his lymphedema. Prealbumin 21.9 on 10/06/22. Encouraged increase in protein intake to help with wound healing. Follow up 3 weeks.
== END 2023-09-10 23:59 | disposition home or self-care (01) ==
LOC: WC 10:46
PROVIDERS: Referring Provider Internal Medicine; Visit Provider Nurse Practitioner Family
DX: L97.112 Non-pressure chronic ulcer of right thigh with fat layer exposed (principal); E66.01 Morbid (severe) obesity due to excess calories; Z68.43 Body mass index [BMI] 50.0-59.9, adult; Z98.84 Bariatric surgery status; L30.4 Erythema intertrigo; L98.7 Excessive and redundant skin and subcutaneous tissue; R60.0 Localized edema; I89.0 Lymphedema, not elsewhere classified; M79.3 Panniculitis, unspecified; Z87.891 Personal history of nicotine dependence
CPT/HCPCS: 11042

== ENCOUNTER 2023-09-18 11:17 | Outpatient (RCR) | payer MEDICAID, SELFPAY ==
[2023-09-11 00:36] VITALS: BP 160/93; PULSE 61; RESP 18; TEMP 36.1; BMI 57.7
[2023-09-18 11:23] VITALS: PULSE 60; RESP 18; TEMP 35.4; BMI 57.7
--- NOTE | 2023-09-18 11:59 | PN.PCM_ITS ---
History of Present Illness Date of Service: 09/18/23 Chief Complaint: Nonhealing ulcer left medial thigh. History of Wound: 48 year old man presents with areas of redundant skin and subcutaneous tissue in his bilateral medial thighs and abdominal panniculus with associated panniculitis. There is abdominal wall skin crease intertrigo and bilateral medial thigh intertrigo for which he uses powders for relief. This excess skin and subcutaneous tissue was the result of bariatric surgery done in [place] in May,. He lost about 250 lbs and his current weight is about 440 lbs. He has a history of lower extremity lymphedema resulting from the extreme body weight and has persistent dependent edema in his medial thighs which aggravates his symptomatology. He denies trauma. He denies fever. Both areas bother him but the medial thighs are his initial priority as he has trouble with ambulating. We received medical approval from his insurance company for his thigh surgery. Surgery 09/22/20 - Excision redundant skin and subcutaneous tissue left medial and posterior thigh with dermolipectomy. Surgery 10/05/22 - Surgical preparation right medial and posterior thigh with excision redundant skin and subcutaneous tissue with radical dermolipectomy. He went to [facility] for almost a month, he had a wound VAC while he was at [facility]. Hgb 8.7 on . Repeat Hgb 8.8 on 10/25/22 at [facility]. On iron supplementation but with his history of gastric bypass, that may impact his abso rption of the iron. Rechecked on 12/12/22 Hgb 10.5. Arterial studies done on 03/23/23 which have triphasic Doppler waveforms are noted at ankle level bilaterally. Pulse-volume recordings appear satisfactory at calf, ankle, and digital levels bilaterally. Right EDDY= 1.27, Left EDDY= 1.28 There is no evidence of significant arterial occlusive disease in the lower extremities bilaterally. Vascular studies done on 03/23/23 show sapheno-femoral junctions are bilaterally incompetent . Acute and chronic superficial thrombophlebitis is noted in the right great saphenous vein above the knee. Chronic venous changes are noted in the left great saphenous vein above the knee. The right great saphenous vein appears incompetent below the knee. The left great saphenous vein appears segmentally incompetent. Small saphenous veins are patent and incompetent bilaterally. Accessory saphenous veins in the right proximal and mid-calf are incompetent. Accessory saphenous veins at the left knee, proximal calf, and mid-calf are incompetent. An incompetent assistant account manager vein is noted in the right calf, located 10 centimeters proximal to the right medial malleolus. An incompetent assistant account manager vein is noted in the left calf, located 12 centimeters proximal to the left medial malleolus. Wound care - Fibrocol + covered with ABDs daily and as needed. A wound culture was obtained 03/27/23 positive Proteus mirabilis, Staphylococcus aureus and he is on Bactrim. Today he denies fever and chills and states his appetite is good. Progress of Wound: Right medial leg ulcer has improved and is smaller even though it is not measuring smaller (the shape has changed). He has some hypergranulation tissue present. Objective Data Objective Data Vital Signs: Vital Signs Temp Pulse Resp BP 95.7 F L 60 18 160/93 H 09/18/23 11:23 09/18/23 11:23 09/18/23 11:23 09/11/23 00:36 Weight: 500 lb Body Mass Index (BMI) 57.7 Charges/Coding Procedures Integumentary 111xxx-113xx: 86324 Margarita subq tissue 20 sq cm/< Debridement Note Debridement Note Wound debrided: Right medial thigh ulcer Laterality: Right Wound Grade/Stage: Stage IV Type of Debridement: Excisional debridement Anesthesia Used: 5% Lidocaine Gel Depth: Down to and including healthy tissue and in the subcutaneous layer Percentage of wound debrided: 100 Instrument Used: 7mm curette Tissue Removed: Devitalized tissue and slough and hypergranulation tissue Severity: Fat Layer Exposed Amount of bleeding with debridement: Mild Bleeding Controlled with: Pressure, Compression and gauze and Silver Nitrate Patient tolerated procedure: Patient tolerated procedure well Post-Debridement Measurements and Additional Note: Post-Debridement Measurements/Treatment - Nurse 1 - General Ulcer Assessment Start: 09/18/23 11:23 Freq: Status: Active Protocol: WILLIAM Activity Type Activity Date Activity User E-sign Co-sign Detail Recorded Client Recorded Date Recorded By Document 09/18/23 11:23 Laptop 09/18/23 11:26 09/18/23 11:23 - Today's Visit Information Type of service 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/PERFORMING [address] MANAGER ) Arrival Mode Ambulatory Patient Identification Verified (Name & Yes ) Patient Requires Transmission-Based No Precautions Height and Weight Body Mass Index (BMI) 57.7 BMI Classification Obese Vital Signs Temperature (97.8 F-99.1 F) 95.7 F L Temperature Source Temporal Pulse Rate (60-100) 60 Pulse Location Monitor Respiratory Rate (12-18) 18 Respiratory rate source Observation History Since Last Visit- (Skip if this is Patient's initial visit) Have you changed medications since your No last visit? Any new allergies or adverse reactions No Had a fall/change in ADL's that may No increase risk of falls Signs or symptoms of abuse and/or No neglect since last visit Have you been in the hospital since your No last visit? Has dressing in place as prescribed Yes Has compression in place as prescribed N/A Has offloadiing in place as prescribed N/A Experienced any changes in pain level or No management Left Footwear Regular Shoe Right Footwear Regular Shoe Pain Scale: 0-10 Numeric Is Patient Pain Free? Yes ACOSTA - Nurse 1 - General Ulcer Measurement Start: 09/18/23 11:23 Freq: Status: Active Protocol: Activity Type Activity Date Activity User E-sign Co-sign Detail Recorded Client Recorded Date Recorded By Document 09/18/23 11:23 Laptop 09/18/23 11:26 09/18/23 11:23 Wound Center Nurse 1 10. R medial thigh -Current Size (cm) - Length 3.7 -Current Size (cm) - Width 4 -Current Size (cm) - Depth 0.1 -Total Square Cm 14.8 -Photo Taken Yes -Exudate Amt Medium -Exudate Type Serosanguineous -Wound Margin Distinct, Outline Attached -Granulation Amt Large (67-100%) -Granulation Quality Red -Necrosis Amt None Present (0 %) -Structure Exposed N/A -Texture (Josephine-wound Skin Appearance) Scarring -Moisture (Josephine-wound Skin Appearance) Dry/Scaly -Color (Josephine-wound Skin Appearance) No Abnormality -Temperature (Josephine-wound Skin No Abnormality Appearance) (Pt Warm) -Tenderness on Palpation (Josephine-wound No Skin Appearance) -Ulcer Cleansing Soap and Water -Foul Odor after Cleansing No -Anesthetic Used 4% Lidocaine Solution ACOSTA - Nurse 2 - General Ulcer CM Notes Start: 09/18/23 11:23 Freq: Status: Active Protocol: Activity Type Activity Date Activity User E-sign Co-sign Detail Recorded Client Recorded Date Recorded By Document 09/18/23 11:34 Laptop 09/18/23 11:43 09/18/23 11:34 Wound Center Nurse 2 -Time 11:35 -Correct Patient Yes -Correct Side, Site, Position Yes -Correct Procedure Yes -Procedure Performed Yes -Type of Procedure Debridement -Clinical Debridement Subcutaneous -Tissue Removed Subcutaneous -Post Debridement (cm) - Length 4.2 -Post Debridement (cm) - Width 4.3 -Post Debridement (cm) - Depth 0.1 -Total Square (Post) (cm) 18.06 -Area of Debridement (cm) - Length 4.2 -Area of Debridement (cm) - Width 4.3 -Total Square (Area) (cm) 18.06 -Tunneling No -Undermining/Tunneling No -Circular Undermining No -Wound/Ulcer Outcome Not Healed -Ulcer Cleansing Rinsed/ Irrigated with Saline -Foul Odor after Cleansing No -Bioengineered Tissue No -Bleeding Controlled with Pressure -Treatment Response Procedure Tolerated Well -Offloading No -Debridement - Subq, 1st 20sq cm Yes Pain Scale: 0-10 Numeric Is Patient Pain Free? Yes WC - Nurse 3 - General Ulcer D/C NN Start: 09/18/23 11:23 Freq: Status: Active Protocol: Activity Type Activity Date Activity User E-sign Co-sign Detail Recorded Client Recorded Date Recorded By Document 09/18/23 11:51 KW Desktop 09/18/23 11:52 KW 09/18/23 11:51 Wound Care Center Nurse 3 10. R medial thigh -Primary Dressing Applied Promogran Faby Matter -Primary Dressing Covered/Secured with Dry Gauze, Secured with Tape -Promogran Faby Matter 1 Pain Scale: 0-10 Numeric Is Patient Pain Free? Yes WC - Visit Discharge Discharge Condition Stable Ambulatory Status Ambulatory Transportation Private Auto Medication Reconcilliation completed & No provided to patient/care provider Clinical Summary of Care Provided Yes Assessment/Plan Assessment/Plan (1) Nonhealing ulcer of right lower extremity with fat layer exposed: CODE(S): L97.912 - Non-pressure chronic ulcer of unspecified part of right lower leg with fat layer exposed (2) Acute postoperative anemia due to expected blood loss: CODE(S): D62 - Acute posthemorrhagic anemia (3) Edema of both lower extremities: CODE(S): R60.0 - Localized edema (4) Chronic acquired lymphedema: CODE(S): I89.0 - Lymphedema, not elsewhere classified (5) Excessive and redundant skin and subcutaneous tissue: CODE(S): L98.7 - Excessive and redundant skin and subcutaneous tissue (6) Intertrigo: CODE(S): L30.4 - Erythema intertrigo (7) Morbid obesity: CODE(S): E66.01 - Morbid (severe) obesity due to excess calories (8) Excessive body weight loss: CODE(S): R63.4 - Abnormal weight loss (9) History of bariatric surgery: CODE(S): Z98.84 - Bariatric surgery status (10) History of excision of mass: CODE(S): Z98.890 - Other specified postprocedural states (11) Former smoker: CODE(S): Z87.891 - Personal history of nicotine dependence PLAN: Plan Patient evaluated at the wound healing center today. Silver nitrate used on ulcer due to his hypergranulation tissue that was present. Wound care - Right medial leg ulcer Faby topped with gauze/ABD dressing daily and as needed after washing ulcer and josephine wound with soap and water. He wears an GRACIA wrap around his right thigh for compression. A wound culture was obtained 03/27/23 positive Proteus mirabilis, Staphylococcus aureus and he completed Bactrim. Now that he has had his vascular studies, he saw Dr. Herrera who agrees with compression and lymphedema pumps. Ordered lymphedema compression pumps to use at home to help control his lymphedema/edema. He has not been wearing them. Reinforced that he actually needs to use the pumps to help improve his lymphedema. Prealbumin 21.9 on 10/06/22. Encouraged increase in protein intake to help with wound healing. Follow up 2 weeks.
== END 2023-10-11 23:59 | disposition home or self-care (01) ==
LOC: WC 11:17
PROVIDERS: Referring Provider Internal Medicine; Visit Provider Nurse Practitioner Family
DX: L97.112 Non-pressure chronic ulcer of right thigh with fat layer exposed (principal); L98.7 Excessive and redundant skin and subcutaneous tissue; I89.0 Lymphedema, not elsewhere classified; L30.4 Erythema intertrigo; R60.0 Localized edema; I80.01 Phlebitis and thrombophlebitis of superficial vessels of right lower extremity; Z98.84 Bariatric surgery status; Z87.891 Personal history of nicotine dependence
CPT/HCPCS: 11042

== ENCOUNTER 2023-11-07 13:06 | Outpatient (RCR) | payer MEDICAID, SELFPAY ==
[2023-10-12 00:52] VITALS: BP 160/93; PULSE 60; RESP 18; TEMP 35.4; BMI 57.7
[2023-11-07 13:20] VITALS: BP 162/99; PULSE 58; RESP 18; TEMP 36.4; BMI 57.7
--- NOTE | 2023-11-07 13:57 | PN.PCM_ITS ---
History of Present Illness Date of Service: 11/07/23 Chief Complaint: Nonhealing ulcer left medial thigh. History of Wound: 48 year old man presents with areas of redundant skin and subcutaneous tissue in his bilateral medial thighs and abdominal panniculus with associated panniculitis. There is abdominal wall skin crease intertrigo and bilateral medial thigh intertrigo for which he uses powders for relief. This excess skin and subcutaneous tissue was the result of bariatric surgery done in [place] in May,. He lost about 250 lbs and his current weight is about 440 lbs. He has a history of lower extremity lymphedema resulting from the extreme body weight and has persistent dependent edema in his medial thighs which aggravates his symptomatology. He denies trauma. He denies fever. Both areas bother him but the medial thighs are his initial priority as he has trouble with ambulating. We received medical approval from his insurance company for his thigh surgery. Surgery 09/22/20 - Excision redundant skin and subcutaneous tissue left medial and posterior thigh with dermolipectomy. Surgery 10/05/22 - Surgical preparation right medial and posterior thigh with excision redundant skin and subcutaneous tissue with radical dermolipectomy. He went to [facility] for almost a month, he had a wound VAC while he was at [facility] Hgb 8.7 on . Repeat Hgb 8.8 on 10/25/22 at [facility] On iron supplementation but with his history of gastric bypass, that may impact his abso rption of the iron. Rechecked on 12/12/22 Hgb 10.5. Arterial studies done on 03/23/23 which have triphasic Doppler waveforms are noted at ankle level bilaterally. Pulse-volume recordings appear satisfactory at calf, ankle, and digital levels bilaterally. Right EDDY= 1.27, Left EDDY= 1.28 There is no evidence of significant arterial occlusive disease in the lower extremities bilaterally. Vascular studies done on 03/23/23 show sapheno-femoral junctions are bilaterally incompetent . Acute and chronic superficial thrombophlebitis is noted in the right great saphenous vein above the knee. Chronic venous changes are noted in the left great saphenous vein above the knee. The right great saphenous vein appears incompetent below the knee. The left great saphenous vein appears segmentally incompetent. Small saphenous veins are patent and incompetent bilaterally. Accessory saphenous veins in the right proximal and mid-calf are incompetent. Accessory saphenous veins at the left knee, proximal calf, and mid-calf are incompetent. An incompetent continuous loft operator vein is noted in the right calf, located 10 centimeters proximal to the right medial malleolus. An incompetent continuous loft operator vein is noted in the left calf, located 12 centimeters proximal to the left medial malleolus. Wound care - Fibrocol + covered with ABDs daily and as needed. A wound culture was obtained 03/27/23 positive Proteus mirabilis, Staphylococcus aureus and he is on Bactrim. Today he denies fever and chills and states his appetite is good. Progress of Wound: Right medial leg ulcer has improved. It keeps changing shape as it heals. Wound bed is beefy pink. No clinical signs of infection. He states he has not been wearing his compression pumps as frequently as recommended. Objective Data Objective Data Vital Signs: Vital Signs Temp Pulse Resp BP 97.5 F L 58 L 18 162/99 H 11/07/23 13:20 11/07/23 13:20 11/07/23 13:20 11/07/23 13:20 Weight: 500 lb Body Mass Index (BMI) 57.7 Charges/Coding Procedures Integumentary 111xxx-113xx: 11503 Margarita subq tissue 20 sq cm/< Debridement Note Debridement Note Wound debrided: Right medial thigh ulcer Laterality: Right Wound Grade/Stage: 3 Type of Debridement: Excisional debridement Anesthesia Used: 5% Lidocaine Gel Depth: Down to and including healthy tissue and in the subcutaneous layer Percentage of wound debrided: 100 Instrument Used: 7mm curette Tissue Removed: Devitalized tissue and slough and hypergranulation tissue Severity: Fat Layer Exposed Amount of bleeding with debridement: Mild Bleeding Controlled with: Pressure and Compression and gauze Patient tolerated procedure: Patient tolerated procedure well Post-Debridement Measurements and Additional Note: Post-Debridement Measurements/Treatment WC - Nurse 1 - General Ulcer Assessment Start: 11/07/23 13:20 Freq: Status: Active Protocol: ACOSTA.LOWEXT Activity Type Activity Date Activity User E-sign Co-sign Detail Recorded Client Recorded Date Recorded By Document 11/07/23 13:20 KW Desktop 11/07/23 13:23 KW Edit Result 11/07/23 13:20 KW (1) [id number] 11/07/23 13:27 RB (1) Pulse Rate (60-100) => 58 L Pulse Location => Monitor Respiratory Rate (12-18) => 18 Respiratory rate source => Observation Blood Pressure (90/60-120/80) => 162/99 H Blood Pressure Mean (mm Hg) => 120 Source => Monitor Position => Sitting Blood Pressure Location => Left Forearm 11/07/23 13:20 - Today's Visit Information Type of service 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/WAITER/[employer] ) Arrival Mode Ambulatory Patient Identification Verified (Name & Yes ) Height and Weight Body Mass Index (BMI) 57.7 BMI Classification Obese Vital Signs Temperature (97.8 F-99.1 F) 97.5 F L Temperature Source Temporal Pulse Rate (60-100) 58 L Pulse Location Monitor Respiratory Rate (12-18) 18 Respiratory rate source Observation Blood Pressure (90/60-120/80) 162/99 H Blood Pressure Mean (mm Hg) 120 Source Monitor Position Sitting Blood Pressure Location Left Forearm History Since Last Visit- (Skip if this is Patient's initial visit) Have you changed medications since your No last visit? Any new allergies or adverse reactions No Had a fall/change in ADL's that may No increase risk of falls Signs or symptoms of abuse and/or No neglect since last visit Have you been in the hospital since your No last visit? Has dressing in place as prescribed No Has compression in place as prescribed N/A Has offloadiing in place as prescribed N/A Experienced any changes in pain level or No management Left Footwear Regular Shoe Right Footwear Regular Shoe Pain Scale: 0-10 Numeric Is Patient Pain Free? Yes - Nurse 1 - General Ulcer Measurement Start: 11/07/23 13:20 Freq: Status: Active Protocol: Activity Type Activity Date Activity User E-sign Co-sign Detail Recorded Client Recorded Date Recorded By Document 11/07/23 13:20 KW Desktop 11/07/23 13:23 KW 11/07/23 13:20 Wound Center Nurse 1 10. R medial thigh -Current Size (cm) - Length 5.2 -Current Size (cm) - Width 2.3 -Current Size (cm) - Depth 0.1 -Total Square Cm 11.96 -Exudate Amt Medium -Exudate Type Serosanguineous -Wound Margin Distinct, Outline Attached -Granulation Amt Medium (34-66%) -Granulation Quality Red -Necrosis Amt Medium (34-66%) -Necrotic Tissue Type Adherent Slough -Texture (Josephine-wound Skin Appearance) Assessed -Moisture (Josephine-wound Skin Appearance) Assessed -Color (Josephine-wound Skin Appearance) Assessed -Temperature (Josephine-wound Skin No Abnormality Appearance) (Pt Warm) -Ulcer Cleansing Rinsed/ Irrigated with Saline -Anesthetic Used 4% Lidocaine Solution - Nurse 2 - General Ulcer CM Notes Start: 11/07/23 13:20 Freq: Status: Active Protocol: Activity Type Activity Date Activity User E-sign Co-sign Detail Recorded Client Recorded Date Recorded By Document 11/07/23 13:35 Laptop 11/07/23 13:43 11/07/23 13:35 Wound Center Nurse 2 -Time 13:35 -Correct Patient Yes -Correct Side, Site, Position Yes -Correct Procedure Yes -Procedure Performed Yes -Type of Procedure Debridement -Clinical Debridement Subcutaneous -Tissue Removed Subcutaneous -Post Debridement (cm) - Length 2.2 -Post Debridement (cm) - Width 5.5 -Post Debridement (cm) - Depth 0.2 -Total Square (Post) (cm) 12.10 -Area of Debridement (cm) - Length 2.2 -Area of Debridement (cm) - Width 5.5 -Total Square (Area) (cm) 12.10 -Tunneling No -Undermining/Tunneling No -Circular Undermining No -Wound/Ulcer Outcome Not Healed -Ulcer Cleansing Rinsed/ Irrigated with Saline -Foul Odor after Cleansing No -Bleeding Controlled with Pressure -Treatment Response Procedure Tolerated Well -Offloading No -Debridement - Subq, 1st 20sq cm Yes Pain Scale: 0-10 Numeric Is Patient Pain Free? Yes - Nurse 3 - General Ulcer D/C NN Start: 11/07/23 13:20 Freq: Status: Active Protocol: Activity Type Activity Date Activity User E-sign Co-sign Detail Recorded Client Recorded Date Recorded By Document 11/07/23 13:43 Laptop 11/07/23 13:44 11/07/23 13:43 Wound Care Center Nurse 3 10. R medial thigh -Ulcer Cleansing Rinsed/ Irrigated with Saline -Foul Odor after Cleansing No -Primary Dressing Applied Mepilex Border, Promogran Faby Matter -Mepilex Border 1 -Promogran Faby Matter 1 Pain Scale: 0-10 Numeric Is Patient Pain Free? Yes WC - Visit Discharge Discharge Condition Stable Ambulatory Status Ambulatory Transportation Private Auto Medication Reconcilliation completed & Yes provided to patient/care provider Clinical Summary of Care Provided Yes Assessment/Plan Assessment/Plan (1) Nonhealing ulcer of right lower extremity with fat layer exposed: CODE(S): L97.912 - Non-pressure chronic ulcer of unspecified part of right lower leg with fat layer exposed (2) Acute postoperative anemia due to expected blood loss: CODE(S): D62 - Acute posthemorrhagic anemia (3) Edema of both lower extremities: CODE(S): R60.0 - Localized edema (4) Chronic acquired lymphedema: CODE(S): I89.0 - Lymphedema, not elsewhere classified (5) Excessive and redundant skin and subcutaneous tissue: CODE(S): L98.7 - Excessive and redundant skin and subcutaneous tissue (6) Intertrigo: CODE(S): L30.4 - Erythema intertrigo (7) Morbid obesity: CODE(S): E66.01 - Morbid (severe) obesity due to excess calories (8) Excessive body weight loss: CODE(S): R63.4 - Abnormal weight loss (9) History of bariatric surgery: CODE(S): Z98.84 - Bariatric surgery status (10) History of excision of mass: CODE(S): Z98.890 - Other specified postprocedural states (11) Former smoker: CODE(S): Z87.891 - Personal history of nicotine dependence PLAN: Plan Patient evaluated at the wound healing center today. Wound care - Right medial leg ulcer Faby topped with gauze/ABD dressing daily and as needed after washing ulcer and josephine wound with soap and water. He wears an GRACIA wrap around his right thigh for compression. A wound culture was obtained 03/27/23 positive Proteus mirabilis, Staphylococcus aureus and he completed Bactrim. Now that he has had his vascular studies, he saw Dr. Herrera who agrees with compression and lymphedema pumps. Ordered lymphedema compression pumps to use at home to help control his lymphedema/edema. He has not been wearing them. Reinforced that he actually needs to use the pumps to help improve his lymphedema. Prealbumin 21.9 on 10/06/22. Encouraged increase in protein intake to help with wound healing. Follow up 2 weeks.
== END 2023-11-09 23:59 | disposition home or self-care (01) ==
LOC: WC 13:06
PROVIDERS: Referring Provider Internal Medicine; Visit Provider Nurse Practitioner Family
DX: L97.112 Non-pressure chronic ulcer of right thigh with fat layer exposed (principal); I80.01 Phlebitis and thrombophlebitis of superficial vessels of right lower extremity; L98.7 Excessive and redundant skin and subcutaneous tissue; I89.0 Lymphedema, not elsewhere classified; L30.4 Erythema intertrigo; R60.0 Localized edema; Z98.84 Bariatric surgery status; Z87.891 Personal history of nicotine dependence; M79.3 Panniculitis, unspecified
CPT/HCPCS: 11042

== ENCOUNTER 2023-11-21 14:29 | Outpatient (RCR) | payer MEDICAID, SELFPAY ==
[2023-11-10 00:36] VITALS: BP 162/99; PULSE 58; RESP 18; TEMP 36.4; BMI 57.7
[2023-11-21 15:33] VITALS: BP 147/96; PULSE 64; RESP 16; TEMP 35.8; BMI 57.7
--- NOTE | 2023-11-21 16:07 | PCM.WC.PN ---
History of Present Illness Date of Service: 11/21/23 Chief Complaint: Nonhealing ulcer left medial thigh. History of Wound: 48 year old man presents with areas of redundant skin and subcutaneous tissue in his bilateral medial thighs and abdominal panniculus with associated panniculitis. There is abdominal wall skin crease intertrigo and bilateral medial thigh intertrigo for which he uses powders for relief. This excess skin and subcutaneous tissue was the result of bariatric surgery done in [place] in May,. He lost about 250 lbs and his current weight is about 440 lbs. He has a history of lower extremity lymphedema resulting from the extreme body weight and has persistent dependent edema in his medial thighs which aggravates his symptomatology. He denies trauma. He denies fever. Both areas bother him but the medial thighs are his initial priority as he has trouble with ambulating. We received medical approval from his insurance company for his thigh surgery. Surgery 09/22/20 - Excision redundant skin and subcutaneous tissue left medial and posterior thigh with dermolipectomy. Surgery 10/05/22 - Surgical preparation right medial and posterior thigh with excision redundant skin and subcutaneous tissue with radical dermolipectomy. He went to [facility] for almost a month, he had a wound VAC while he was at [facility]. Hgb 8.7 on . Repeat Hgb 8.8 on 10/25/22 at [facility]. On iron supplementation but with his history of gastric bypass, that may impact his absorption of the iron. Rechecked on 12/12/22 Hgb 10.5. Arterial studies done on 03/23/23 which have triphasic Doppler waveforms are noted at ankle level bilaterally. Pulse-volume recordings appear satisfactory at calf, ankle, and digital levels bilaterally. Right EDDY= 1.27, Left EDDY= 1.28 There is no evidence of significant arterial occlusive disease in the lower extremities bilaterally. Vascular studies done on 03/23/23 show sapheno-femoral junctions are bilaterally incompetent . Acute and chronic superficial thrombophlebitis is noted in the right great saphenous vein above the knee. Chronic venous changes are noted in the left great saphenous vein above the knee. The right great saphenous vein appears incompetent below the knee. The left great saphenous vein appears segmentally incompetent. Small saphenous veins are patent and incompetent bilaterally. Accessory saphenous veins in the right proximal and mid-calf are incompetent. Accessory saphenous veins at the left knee, proximal calf, and mid-calf are incompetent. An incompetent um specialist vein is noted in the right calf, located 10 centimeters proximal to the right medial malleolus. An incompetent um specialist vein is noted in the left calf, located 12 centimeters proximal to the left medial malleolus. Wound care - Faby covered with ABDs daily and as needed. A wound culture was obtained 03/27/23 positive Proteus mirabilis, Staphylococcus aureus and he is on Bactrim. Today he denies fever and chills and states his appetite is good. Progress of Wound: Right medial leg ulcer is visibly smaller this week. Wound bed is beefy pink. Small amount of hypergranulation tissue present. No clinical signs of infection. He states he has not been wearing his compression pumps regularly. Objective Data Objective Data Vital Signs: Vital Signs Temp Pulse Resp BP 96.5 F L 64 16 147/96 H 11/21/23 15:33 11/21/23 15:33 11/21/23 15:33 11/21/23 15:33 Weight: 500 lb Body Mass Index (BMI) 57.7 Charges/Coding Procedures Integumentary 111xxx-113xx: [id number] Margarita subq tissue 20 sq cm/< Debridement Note Debridement Note Wound debrided: Right medial thigh ulcer Laterality: Right Wound Grade/Stage: 3 Type of Debridement: Excisional debridement Anesthesia Used: 5% Lidocaine Gel Depth: Down to and including healthy tissue and in the subcutaneous layer Percentage of wound debrided: 100 Instrument Used: 5mm curette Tissue Removed: Devitalized tissue and slough and hypergranulation tissue Severity: Fat Layer Exposed Amount of bleeding with debridement: Mild Bleeding Controlled with: Pressure and Compression and gauze Patient tolerated procedure: Patient tolerated procedure well Post-Debridement Measurements and Additional Note: Post-Debridement Measurements/Treatment ACOSTA - Nurse 1 - General Ulcer Assessment Start: 11/21/23 15:32 Freq: Status: Active Protocol: WILLIAM Activity Type Activity Date Activity User E-sign Co-sign Detail Recorded Client Recorded Date Recorded By Document 11/21/23 15:33 JOHN [id number] 11/21/23 15:37 JOHN 11/21/23 15:33 ACOSTA - Today's Visit Information Type of service 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/[employer] ) Arrival Mode Ambulatory Patient Identification Verified (Name & Yes ) Patient Requires Transmission-Based No Precautions Height and Weight Body Mass Index (BMI) 57.7 BMI Classification Obese Vital Signs Temperature (97.8 F-99.1 F) 96.5 F L Temperature Source Temporal Pulse Rate (60-100) 64 Pulse Location Monitor Respiratory Rate (12-18) 16 Respiratory rate source Observation Blood Pressure (90/60-120/80) 147/96 H Blood Pressure Mean (mm Hg) 113 Source Monitor Position Sitting Blood Pressure Location Right Arm History Since Last Visit- (Skip if this is Patient's initial visit) Have you changed medications since your No last visit? Any new allergies or adverse reactions No Had a fall/change in ADL's that may No increase risk of falls Signs or symptoms of abuse and/or No neglect since last visit Have you been in the hospital since your No last visit? Has dressing in place as prescribed Yes Has compression in place as prescribed Yes Has offloadiing in place as prescribed Yes Experienced any changes in pain level or No management Left Footwear Regular Shoe Right Footwear Regular Shoe Pain Scale: 0-10 Numeric Is Patient Pain Free? Yes WC - Nurse 1 - General Ulcer Measurement Start: 11/21/23 15:32 Freq: Status: Active Protocol: Activity Type Activity Date Activity User E-sign Co-sign Detail Recorded Client Recorded Date Recorded By Document 11/21/23 15:33 JOHN [id number] 11/21/23 15:37 JOHN 11/21/23 15:33 Wound Center Nurse 1 10. R medial thigh -Combined with other wound No -Current Size (cm) - Length 1.7 -Current Size (cm) - Width 5 -Current Size (cm) - Depth 0.1 -Total Square Cm 8.5 -Photo Taken No -Epithelialization Medium 34-66% -Tunneling No -Undermining/Tunneling No -Circular Undermining No -Exudate Amt Medium -Exudate Type Serosanguineous -Wound Margin Flat & Intact -Granulation Amt Large (67-100%) -Granulation Quality Red -Slough/Fibrin Yes -Necrosis Amt Small (1-33%) -Necrotic Tissue Type Adherent Slough -Structure Exposed N/A -Texture (Josephine-wound Skin Appearance) Assessed, Localized Edema -Moisture (Josephine-wound Skin Appearance) Assessed,Dry/ Scaly -Color (Josephine-wound Skin Appearance) Assessed -Temperature (Josephine-wound Skin No Abnormality Appearance) (Pt Warm) -Tenderness on Palpation (Josephine-wound No Skin Appearance) -Ulcer Cleansing Wound Cleanser -Foul Odor after Cleansing No -Anesthetic Used 4% Lidocaine Solution Lower Limb Edema Present NA WC - Nurse 2 - General Ulcer CM Notes Start: 11/21/23 15:32 Freq: Status: Active Protocol: Activity Type Activity Date Activity User E-sign Co-sign Detail Recorded Client Recorded Date Recorded By Document 11/21/23 15:33 JF [id number] 11/21/23 15:37 11/21/23 15:33 Pain Scale: 0-10 Numeric Is Patient Pain Free? Yes Wound Center Nurse 2 10. R medial thigh -Time 15:35 -Correct Patient Yes -Correct Side, Site, Position Yes -Correct Procedure Yes -Procedure Performed Yes -Type of Procedure Debridement -Clinical Debridement Subcutaneous -Tissue Removed Subcutaneous -Post Debridement (cm) - Length 1.8 -Post Debridement (cm) - Width 5 -Post Debridement (cm) - Depth 0.1 -Total Square (Post) (cm) 9.0 -Area of Debridement (cm) - Length 1.8 -Area of Debridement (cm) - Width 5.0 -Total Square (Area) (cm) 9.00 -Tunneling No -Undermining/Tunneling No -Circular Undermining No -Wound/Ulcer Outcome Not Healed -Ulcer Cleansing Rinsed/ Irrigated with Saline -Foul Odor after Cleansing No -Bioengineered Tissue No -Bleeding Controlled with Pressure -Treatment Response Procedure Tolerated Well -Offloading No -Debridement - Subq, 1st 20sq cm Yes WC - Nurse 3 - General Ulcer D/C NN Start: 11/21/23 15:32 Freq: Status: Active Protocol: Activity Type Activity Date Activity User E-sign Co-sign Detail Recorded Client Recorded Date Recorded By Document 11/21/23 15:33 JF [id number] 11/21/23 15:37 11/21/23 15:33 Vital Signs Temperature (97.8 F-99.1 F) 96.5 F L Temperature Source Temporal Pulse Rate (60-100) 64 Pulse Location Monitor Respiratory Rate (12-18) 16 Respiratory rate source Observation Blood Pressure (90/60-120/80) 147/96 H Blood Pressure Mean (mm Hg) 113 Source Monitor Position Sitting Blood Pressure Location Right Arm Pain Scale: 0-10 Numeric Is Patient Pain Free? Yes Wound Care Center Nurse 3 10. R medial thigh -Ulcer Cleansing Rinsed/ Irrigated with Saline -Foul Odor after Cleansing No -Primary Dressing Applied Mepilex Border, Promogran Faby Matter -Mepilex Border 1 -Promogran Faby Matter 1 WC - Visit Discharge Discharge Condition Stable Ambulatory Status Ambulatory Transportation Private Auto Medication Reconcilliation completed & Yes provided to patient/care provider Clinical Summary of Care Provided Yes Assessment/Plan Assessment/Plan (1) Nonhealing ulcer of right lower extremity with fat layer exposed: CODE(S): L97.912 - Non-pressure chronic ulcer of unspecified part of right lower leg with fat layer exposed (2) Acute postoperative anemia due to expected blood loss: CODE(S): D62 - Acute posthemorrhagic anemia (3) Edema of both lower extremities: CODE(S): R60.0 - Localized edema (4) Chronic acquired lymphedema: CODE(S): I89.0 - Lymphedema, not elsewhere classified (5) Excessive and redundant skin and subcutaneous tissue: CODE(S): L98.7 - Excessive and redundant skin and subcutaneous tissue (6) Intertrigo: CODE(S): L30.4 - Erythema intertrigo (7) Morbid obesity: CODE(S): E66.01 - Morbid (severe) obesity due to excess calories (8) Excessive body weight loss: CODE(S): R63.4 - Abnormal weight loss (9) History of bariatric surgery: CODE(S): Z98.84 - Bariatric surgery status (10) History of excision of mass: CODE(S): Z98.890 - Other specified postprocedural states (11) Former smoker: CODE(S): Z87.891 - Personal history of nicotine dependence PLAN: Plan Patient evaluated at the wound healing center today. Wound care - Right medial leg ulcer Faby topped with [place] SAP or gauze/ABD dressing daily and as needed after washing ulcer and josephine wound with soap and water. He wears an GRACIA wrap around his right thigh for compression. A wound culture was obtained 03/27/23 positive Proteus mirabilis, Staphylococcus aureus and he completed Bactrim. Now that he has had his vascular studies, he saw Dr. Herrera who agrees with compression and lymphedema pumps. Ordered lymphedema compression pumps to use at home to help control his lymphedema/edema. He has not been wearing them. Reinforced that he actually needs to use the pumps to help improve his lymphedema. He verbalized understanding. Prealbumin 21.9 on 10/06/22. Encouraged increase in protein intake to help with wound healing. Follow up 3 weeks, due to me being out of town.
== END 2023-12-10 23:59 | disposition home or self-care (01) ==
LOC: WC 14:29
PROVIDERS: Referring Provider Internal Medicine; Visit Provider Nurse Practitioner Family
DX: L97.112 Non-pressure chronic ulcer of right thigh with fat layer exposed (principal); I80.01 Phlebitis and thrombophlebitis of superficial vessels of right lower extremity; M79.3 Panniculitis, unspecified; L98.7 Excessive and redundant skin and subcutaneous tissue; I89.0 Lymphedema, not elsewhere classified; L30.4 Erythema intertrigo; R60.0 Localized edema; Z87.891 Personal history of nicotine dependence; Z98.84 Bariatric surgery status
CPT/HCPCS: 11042

== ENCOUNTER 2024-01-01 10:45 | Outpatient (RCR) | payer MEDICAID, SELFPAY ==
[2023-12-11 00:46] VITALS: BP 147/96; PULSE 64; RESP 16; TEMP 35.8; BMI 57.7
[2023-12-12 13:19] VITALS: BP 154/67; PULSE 56; RESP 18; TEMP 36.2; BMI 57.7
--- NOTE | 2023-12-12 16:19 | PCM.WC.PN ---
History of Present Illness Date of Service: 12/12/23 Chief Complaint: Nonhealing ulcer left medial thigh. History of Wound: 48 year old man presents with areas of redundant skin and subcutaneous tissue in his bilateral medial thighs and abdominal panniculus with associated panniculitis. There is abdominal wall skin crease intertrigo and bilateral medial thigh intertrigo for which he uses powders for relief. This excess skin and subcutaneous tissue was the result of bariatric surgery done in [place] in May,. He lost about 250 lbs and his current weight is about 440 lbs. He has a history of lower extremity lymphedema resulting from the extreme body weight and has persistent dependent edema in his medial thighs which aggravates his symptomatology. He denies trauma. He denies fever. Both areas bother him but the medial thighs are his initial priority as he has trouble with ambulating. We received medical approval from his insurance company for his thigh surgery. Surgery 09/22/20 - Excision redundant skin and subcutaneous tissue left medial and posterior thigh with dermolipectomy. Surgery 10/05/22 - Surgical preparation right medial and posterior thigh with excision redundant skin and subcutaneous tissue with radical dermolipectomy. He went to [facility] for almost a month, he had a wound VAC while he was at [facility]. Hgb 8.7 on . Repeat Hgb 8.8 on 10/25/22 at [facility]. On iron supplementation but with his history of gastric bypass, that may impact his absorption of the iron. Rechecked on 12/12/22 Hgb 10.5. Arterial studies done on 03/23/23 which have triphasic Doppler waveforms are noted at ankle level bilaterally. Pulse-volume recordings appear satisfactory at calf, ankle, and digital levels bilaterally. Right EDDY= 1.27, Left EDDY= 1.28 There is no evidence of significant arterial occlusive disease in the lower extremities bilaterally. Vascular studies done on 03/23/23 show sapheno-femoral junctions are bilaterally incompetent . Acute and chronic superficial thrombophlebitis is noted in the right great saphenous vein above the knee. Chronic venous changes are noted in the left great saphenous vein above the knee. The right great saphenous vein appears incompetent below the knee. The left great saphenous vein appears segmentally incompetent. Small saphenous veins are patent and incompetent bilaterally. Accessory saphenous veins in the right proximal and mid-calf are incompetent. Accessory saphenous veins at the left knee, proximal calf, and mid-calf are incompetent. An incompetent business excellence manager vein is noted in the right calf, located 10 centimeters proximal to the right medial malleolus. An incompetent business excellence manager vein is noted in the left calf, located 12 centimeters proximal to the left medial malleolus. Wound care - Faby covered with ABDs daily and as needed. A wound culture was obtained 03/27/23 positive Proteus mirabilis, Staphylococcus aureus and he is on Bactrim. Today he denies fever and chills and states his appetite is good. Progress of Wound: Right medial leg ulcer is visibly smaller this week, but he has a skin tear perpendicular to the ulcer, so it is measuring larger. Wound bed is beefy pink. Objective Data Objective Data Vital Signs: Vital Signs Temp Pulse Resp BP O2 Del Method 97.1 F L 56 L 18 154/67 H Room Air 12/12/23 13:19 12/12/23 13:19 12/12/23 13:19 12/12/23 13:19 12/12/23 13:19 Oxygen Delivery Method Room Air Weight: 500 lb Body Mass Index (BMI) 57.7 Charges/Coding Procedures Integumentary 111xxx-113xx: [id number] Margarita subq tissue 20 sq cm/< Debridement Note Debridement Note Wound debrided: Right medial thigh ulcer Laterality: Right Wound Grade/Stage: 3 Type of Debridement: Excisional debridement Anesthesia Used: 5% Lidocaine Gel Depth: Down to and including healthy tissue and in the subcutaneous layer Percentage of wound debrided: 100 Instrument Used: 5mm curette Tissue Removed: Devitalized tissue and slough Severity: Fat Layer Exposed Amount of bleeding with debridement: Mild Bleeding Controlled with: Pressure and Compression and gauze Patient tolerated procedure: Patient tolerated procedure well Post-Debridement Measurements and Additional Note: Post-Debridement Measurements/Treatment [facility]COSTA - Nurse 1 - General Ulcer Assessment Start: 12/12/23 13:19 Freq: Status: Active Protocol: WILLIAM Activity Type Activity Date Activity User E-sign Co-sign Detail Recorded Client Recorded Date Recorded By Document 12/12/23 13:19 KW Desktop 12/12/23 13:24 KW 12/12/23 13:19 ACOSTA - Today's Visit Information Type of service 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 ) Arrival Mode Ambulatory Patient Identification Verified (Name & Yes ) Height and Weight Body Mass Index (BMI) 57.7 BMI Classification Obese Vital Signs Temperature (97.8 F-99.1 F) 97.1 F L Temperature Source Temporal Pulse Rate (60-100) 56 L Pulse Location Monitor Respiratory Rate (12-18) 18 Respiratory rate source Observation Oxygen Delivery Method Room Air Blood Pressure (90/60-120/80) 154/67 H Blood Pressure Mean (mm Hg) 96 Source Monitor Position Sitting Blood Pressure Location Right Forearm History Since Last Visit- (Skip if this is Patient's initial visit) Have you changed medications since your No last visit? Any new allergies or adverse reactions No Had a fall/change in ADL's that may No increase risk of falls Signs or symptoms of abuse and/or No neglect since last visit Have you been in the hospital since your No last visit? Has dressing in place as prescribed Yes Has compression in place as prescribed N/A Has offloadiing in place as prescribed N/A Experienced any changes in pain level or No management Left Footwear Regular Shoe Right Footwear Regular Shoe Pain Scale: 0-10 Numeric Is Patient Pain Free? Yes WC - Nurse 1 - General Ulcer Measurement Start: 12/12/23 13:19 Freq: Status: Active Protocol: Activity Type Activity Date Activity User E-sign Co-sign Detail Recorded Client Recorded Date Recorded By Document 12/12/23 13:19 KW Desktop 12/12/23 13:24 KW 12/12/23 13:19 Wound Center Nurse 1 10. R medial thigh -Current Size (cm) - Length 4.4 -Current Size (cm) - Width 6 -Current Size (cm) - Depth 0.1 -Total Square Cm 26.4 -Exudate Amt Small -Exudate Type Serosanguineous -Wound Margin Distinct, Outline Attached -Granulation Amt Large (67-100%) -Granulation Quality [place],Red -Texture (Josephine-wound Skin Appearance) Assessed, Scarring -Moisture (Josephine-wound Skin Appearance) Assessed -Color (Josephine-wound Skin Appearance) Assessed -Temperature (Josephine-wound Skin No Abnormality Appearance) (Pt Warm) -Ulcer Cleansing Rinsed/ Irrigated with Saline -Foul Odor after Cleansing No -Anesthetic Used 5% Lidocaine Gel WC - Nurse 2 - General Ulcer CM Notes Start: 12/12/23 13:19 Freq: Status: Active Protocol: Activity Type Activity Date Activity User E-sign Co-sign Detail Recorded Client Recorded Date Recorded By Document 12/12/23 13:37 CP Desktop 12/12/23 13:43 CP 12/12/23 13:37 Wound Center Nurse 2 -Time 13:40 -Correct Patient Yes -Correct Side, Site, Position Yes -Correct Procedure Yes -Procedure Performed Yes -Type of Procedure Debridement -Clinical Debridement Subcutaneous -Tissue Removed Subcutaneous -Post Debridement (cm) - Length 3.8 -Post Debridement (cm) - Width 5 -Post Debridement (cm) - Depth 0.1 -Total Square (Post) (cm) 19.0 -Tunneling No -Undermining/Tunneling No -Circular Undermining No -Wound/Ulcer Outcome Not Healed -Ulcer Cleansing Rinsed/ Irrigated with Saline -Foul Odor after Cleansing No -Bioengineered Tissue No -Bleeding Controlled with Pressure -Treatment Response Procedure Tolerated Well -Offloading No -Debridement - Subq, 1st 20sq cm Yes Pain Scale: 0-10 Numeric Is Patient Pain Free? Yes - Nurse 3 - General Ulcer D/C NN Start: 12/12/23 13:19 Freq: Status: Active Protocol: Activity Type Activity Date Activity User E-sign Co-sign Detail Recorded Client Recorded Date Recorded By Document 12/12/23 13:47 KW Desktop 12/12/23 13:48 KW 12/12/23 13:47 Wound Care Center Nurse 3 10. R medial thigh -Ulcer Cleansing Rinsed/ Irrigated with Saline -Primary Dressing Applied Mepilex Border, Promogran Faby Matter -Mepilex Border 1 -Promogran Faby Matter 1 Pain Scale: 0-10 Numeric Is Patient Pain Free? Yes - Visit Discharge Discharge Condition Stable Ambulatory Status Ambulatory Transportation Private Auto Medication Reconcilliation completed & No provided to patient/care provider Clinical Summary of Care Provided Yes Assessment/Plan Assessment/Plan (1) Nonhealing ulcer of right lower extremity with fat layer exposed: CODE(S): L97.912 - Non-pressure chronic ulcer of unspecified part of right lower leg with fat layer exposed (2) Acute postoperative anemia due to expected blood loss: CODE(S): D62 - Acute posthemorrhagic anemia (3) Edema of both lower extremities: CODE(S): R60.0 - Localized edema (4) Chronic acquired lymphedema: CODE(S): I89.0 - Lymphedema, not elsewhere classified (5) Excessive and redundant skin and subcutaneous tissue: CODE(S): L98.7 - Excessive and redundant skin and subcutaneous tissue (6) Intertrigo: CODE(S): L30.4 - Erythema intertrigo (7) Morbid obesity: CODE(S): E66.01 - Morbid (severe) obesity due to excess calories (8) Excessive body weight loss: CODE(S): R63.4 - Abnormal weight loss (9) History of bariatric surgery: CODE(S): Z98.84 - Bariatric surgery status (10) History of excision of mass: CODE(S): Z98.890 - Other specified postprocedural states (11) Former smoker: CODE(S): Z87.891 - Personal history of nicotine dependence PLAN: Plan Patient evaluated at the wound healing center today. Wound care - Right medial leg ulcer Faby topped with [place] SAP or gauze/ABD dressing daily and as needed after washing ulcer and josephine wound with soap and water. He wears an GRACIA wrap around his right thigh for compression. A wound culture was obtained 03/27/23 positive Proteus mirabilis, Staphylococcus aureus and he completed Bactrim. Now that he has had his vascular studies, he saw Dr. Herrera who agrees with compression and lymphedema pumps. Ordered lymphedema compression pumps to use at home to help control his lymphedema/edema. He has not been wearing them. Reinforced that he actually needs to use the pumps to help improve his lymphedema. He verbalized understanding. Prealbumin 21.9 on 10/06/22. Encouraged increase in protein intake to help with wound healing. Follow up 2 weeks.
[2024-01-01 10:50] VITALS: RESP 18; TEMP 36; BMI 57.7
--- NOTE | 2024-01-01 11:39 | PCM.WC.PN ---
History of Present Illness Date of Service: 01/01/24 Chief Complaint: Nonhealing ulcer left medial thigh. History of Wound: 48 year old man presents with areas of redundant skin and subcutaneous tissue in his bilateral medial thighs and abdominal panniculus with associated panniculitis. There is abdominal wall skin crease intertrigo and bilateral medial thigh intertrigo for which he uses powders for relief. This excess skin and subcutaneous tissue was the result of bariatric surgery done in [place] in May,. He lost about 250 lbs and his current weight is about 440 lbs. He has a history of lower extremity lymphedema resulting from the extreme body weight and has persistent dependent edema in his medial thighs which aggravates his symptomatology. He denies trauma. He denies fever. Both areas bother him but the medial thighs are his initial priority as he has trouble with ambulating. We received medical approval from his insurance company for his thigh surgery. Surgery 09/22/20 - Excision redundant skin and subcutaneous tissue left medial and posterior thigh with dermolipectomy. Surgery 10/05/22 - Surgical preparation right medial and posterior thigh with excision redundant skin and subcutaneous tissue with radical dermolipectomy. He went to [facility] for almost a month, he had a wound VAC while he was at [facility]. Hgb 8.7 on . Repeat Hgb 8.8 on 10/25/22 at [facility]. On iron supplementation but with his history of gastric bypass, that may impact his absorption of the iron. Rechecked on 12/12/22 Hgb 10.5. Arterial studies done on 03/23/23 which have triphasic Doppler waveforms are noted at ankle level bilaterally. Pulse-volume recordings appear satisfactory at calf, ankle, and digital levels bilaterally. Right EDDY= 1.27, Left EDDY= 1.28 There is no evidence of significant arterial occlusive disease in the lower extremities bilaterally. Vascular studies done on 03/23/23 show sapheno-femoral junctions are bilaterally incompetent . Acute and chronic superficial thrombophlebitis is noted in the right great saphenous vein above the knee. Chronic venous changes are noted in the left great saphenous vein above the knee. The right great saphenous vein appears incompetent below the knee. The left great saphenous vein appears segmentally incompetent. Small saphenous veins are patent and incompetent bilaterally. Accessory saphenous veins in the right proximal and mid-calf are incompetent. Accessory saphenous veins at the left knee, proximal calf, and mid-calf are incompetent. An incompetent vamp presser vein is noted in the right calf, located 10 centimeters proximal to the right medial malleolus. An incompetent vamp presser vein is noted in the left calf, located 12 centimeters proximal to the left medial malleolus. Wound care - Faby covered with ABDs daily and as needed. A wound culture was obtained 03/27/23 positive Proteus mirabilis, Staphylococcus aureus and he is on Bactrim. Today he denies fever and chills and states his appetite is good. Progress of Wound: Right medial leg ulcer is much smaller in size. He states that he finally decided to use his compression pumps and they do not fit his legs. He tried calling the company but has not received a call back. Will provide him with our contact for the [employer]. Objective Data Objective Data Vital Signs: Vital Signs Temp Pulse Resp BP O2 Del Method 96.8 F L 56 L 18 154/67 H Room Air 01/01/24 10:50 12/12/23 13:19 01/01/24 10:50 12/12/23 13:19 01/01/24 10:50 Oxygen Delivery Method Room Air Weight: 500 lb Body Mass Index (BMI) 57.7 Charges/Coding Procedures Integumentary [id number]: [id number] Margarita subq tissue 20 sq cm/< Debridement Note Debridement Note Wound debrided: Right medial thigh ulcer Laterality: Right Wound Grade/Stage: 3 Type of Debridement: Excisional debridement Anesthesia Used: 5% Lidocaine Gel Depth: Down to and including healthy tissue and in the subcutaneous layer Percentage of wound debrided: 100 Instrument Used: 5mm curette Tissue Removed: Devitalized tissue and slough Severity: Fat Layer Exposed Amount of bleeding with debridement: Mild Bleeding Controlled with: Pressure and Compression and gauze Patient tolerated procedure: Patient tolerated procedure well Post-Debridement Measurements and Additional Note: Post-Debridement Measurements/Treatment WC - Nurse 1 - General Ulcer Assessment Start: 12/12/23 13:19 Freq: Status: Active Protocol: ACOSTA.LOWEXT Activity Type Activity Date Activity User E-sign Co-sign Detail Recorded Client Recorded Date Recorded By Document 12/12/23 13:19 KW Desktop 12/12/23 13:24 KW Document 01/01/24 10:50 BMF Desktop 01/01/24 10:56 [facility] 12/12/23 01/01/24 13:19 10:50 - Today's Visit Information Type of service Follow-up Visit 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/RADIOLOGIST CHIEF OF BREAST IMAGING (Physician/RADIOLOGIST CHIEF OF BREAST IMAGING ) ) Arrival Mode Ambulatory Ambulatory Transfer Assistance None Patient Identification Verified (Name & Yes Yes ) Patient Requires Transmission-Based No Precautions Height and Weight Body Mass Index (BMI) 57.7 57.7 BMI Classification Obese Obese Vital Signs Temperature (97.8 F-99.1 F) 97.1 F L 96.8 F L Temperature Source Temporal Temporal Pulse Rate (60-100) 56 L Pulse Location Monitor Respiratory Rate (12-18) 18 18 Respiratory rate source Observation Observation Oxygen Delivery Method Room Air Room Air Blood Pressure (90/60-120/80) 154/67 H Blood Pressure Mean (mm Hg) 96 Source Monitor Position Sitting Blood Pressure Location Right Forearm Comment pt refused bp. too painful on his arm. History Since Last Visit- (Skip if this is Patient's initial visit) Have you changed medications since your No No last visit? Any new allergies or adverse reactions No No Had a fall/change in ADL's that may No No increase risk of falls Signs or symptoms of abuse and/or No No neglect since last visit Have you been in the hospital since your No No last visit? Has dressing in place as prescribed Yes Yes Has compression in place as prescribed N/A Yes Has offloadiing in place as prescribed N/A N/A Experienced any changes in pain level or No No management Left Footwear Regular Shoe Regular Shoe Right Footwear Regular Shoe Regular Shoe Pain Scale: 0-10 Numeric Is Patient Pain Free? Yes Yes - Nurse 1 - General Ulcer Measurement Start: 12/12/23 13:19 Freq: Status: Active Protocol: Activity Type Activity Date Activity User E-sign Co-sign Detail Recorded Client Recorded Date Recorded By Document 12/12/23 13:19 KW Desktop 12/12/23 13:24 KW Document 01/01/24 10:50 [facility] [employer] 01/01/24 10:56 [facility] 12/12/23 01/01/24 13:19 10:50 Wound Center Nurse 1 10. R medial thigh -Combined with other wound No -Current Size (cm) - Length 4.4 2.3 -Current Size (cm) - Width 6 0.6 -Current Size (cm) - Depth 0.1 0.1 -Total Square Cm 26.4 1.38 -Date of Last Picture (Recall this 01/01/24 field) -Photo Taken Yes -Exudate Amt Small Small -Exudate Type Serosanguineous Serosanguineous -Wound Margin Distinct, Distinct, Outline Outline Attached Attached -Granulation Amt Large (67-100%) Small (1-33%) -Granulation Quality Mosses,Red Mosses,Red -Structure Exposed N/A -Texture (Josephine-wound Skin Appearance) Assessed, Assessed, Scarring Scarring -Moisture (Josephine-wound Skin Appearance) Assessed Assessed,Dry/ Scaly -Color (Josephine-wound Skin Appearance) Assessed Assessed -Temperature (Josephine-wound Skin No Abnormality No Abnormality Appearance) (Pt Warm) (Pt Warm) -Tenderness on Palpation (Josephine-wound No Skin Appearance) -Ulcer Cleansing Rinsed/ Rinsed/ Irrigated with Irrigated with Saline Saline -Foul Odor after Cleansing No No -Anesthetic Used 5% Lidocaine 5% Lidocaine Gel Gel Lower Limb Edema Present Yes - Nurse 2 - General Ulcer CM Notes Start: 12/12/23 13:19 Freq: Status: Active Protocol: Activity Type Activity Date Activity User E-sign Co-sign Detail Recorded Client Recorded Date Recorded By Document 12/12/23 13:37 Desktop 12/12/23 13:43 Document 01/01/24 11:23 Laptop 01/01/24 11:28 12/12/23 01/01/24 13:37 11:23 Wound Center Nurse 2 10. R medial thigh -Time 13:40 11:23 -Correct Patient Yes Yes -Correct Side, Site, Position Yes Yes -Correct Procedure Yes Yes -Procedure Performed Yes Yes -Type of Procedure Debridement Debridement -Clinical Debridement Subcutaneous Subcutaneous -Tissue Removed Subcutaneous Subcutaneous -Post Debridement (cm) - Length 3.8 1.5 -Post Debridement (cm) - Width 5 3.5 -Post Debridement (cm) - Depth 0.1 0.1 -Total Square (Post) (cm) 19.0 5.25 -Area of Debridement (cm) - Length 1.5 -Area of Debridement (cm) - Width 3.5 -Total Square (Area) (cm) 5.25 -Tunneling No No -Undermining/Tunneling No No -Circular Undermining No No -Wound/Ulcer Outcome Not Healed Not Healed -Ulcer Cleansing Rinsed/ Rinsed/ Irrigated with Irrigated with Saline Saline -Foul Odor after Cleansing No No -Bioengineered Tissue No No -Bleeding Controlled with Pressure Pressure -Treatment Response Procedure Procedure Tolerated Well Tolerated Well -Offloading No No -Debridement - Subq, 1st 20sq cm Yes Yes Pain Scale: 0-10 Numeric Is Patient Pain Free? Yes Yes - Nurse 3 - General Ulcer D/C NN Start: 12/12/23 13:19 Freq: Status: Active Protocol: Activity Type Activity Date Activity User E-sign Co-sign Detail Recorded Client Recorded Date Recorded By Document 12/12/23 13:47 KW Desktop 12/12/23 13:48 KW Document 01/01/24 11:35 DL Laptop 01/01/24 11:35 DL 12/12/23 01/01/24 13:47 11:35 Wound Care Center Nurse 3 10. R medial thigh -Ulcer Cleansing Rinsed/ Rinsed/ Irrigated with Irrigated with Saline Saline -Foul Odor after Cleansing No -Primary Dressing Applied Mepilex Border, Mepilex Border, Promogran Promogran Faby Matter Faby Matter -Other Covering GRACIA -Mepilex Border 1 1 -Promogran Faby Matter 1 1 Treatment Response Procedure Tolerated Well Pain Scale: 0-10 Numeric Is Patient Pain Free? Yes Yes - Visit Discharge Discharge Condition Stable Stable Ambulatory Status Ambulatory Ambulatory Transportation Private Auto Private Auto Medication Reconcilliation completed & No provided to patient/care provider Clinical Summary of Care Provided Yes Assessment/Plan Assessment/Plan (1) Nonhealing ulcer of right lower extremity with fat layer exposed: CODE(S): L97.912 - Non-pressure chronic ulcer of unspecified part of right lower leg with fat layer exposed (2) Acute postoperative anemia due to expected blood loss: CODE(S): D62 - Acute posthemorrhagic anemia (3) Edema of both lower extremities: CODE(S): R60.0 - Localized edema (4) Chronic acquired lymphedema: CODE(S): I89.0 - Lymphedema, not elsewhere classified (5) Excessive and redundant skin and subcutaneous tissue: CODE(S): L98.7 - Excessive and redundant skin and subcutaneous tissue (6) Intertrigo: CODE(S): L30.4 - Erythema intertrigo (7) Morbid obesity: CODE(S): E66.01 - Morbid (severe) obesity due to excess calories (8) Excessive body weight loss: CODE(S): R63.4 - Abnormal weight loss (9) History of bariatric surgery: CODE(S): Z98.84 - Bariatric surgery status (10) History of excision of mass: CODE(S): Z98.890 - Other specified postprocedural states (11) Former smoker: CODE(S): Z87.891 - Personal history of nicotine dependence PLAN: Plan Patient evaluated at the wound healing center today. Wound care - Right medial leg ulcer moistened Faby topped with Delia SAP or gauze/ABD dressing daily and as needed after washing ulcer and josephine wound with soap and water. He wears an GRACIA wrap around his right thigh for compression. A wound culture was obtained 03/27/23 positive Proteus mirabilis, Staphylococcus aureus and he completed Bactrim. Now that he has had his vascular studies, he saw Dr. Herrera who agrees with compression and lymphedema pumps. Ordered lymphedema compression pumps to use at home to help control his lymphedema/edema. He states that he finally decided to use his compression pumps and they do not fit his legs. He tried calling the company but has not received a call back. Will provide him with our contact for the [employer]. Prealbumin 21.9 on 10/06/22. Encouraged increase in protein intake to help with wound healing. Follow up 3 weeks.
--- NOTE | 2024-01-02 13:34 | WC ---
01/01/24 RIGHT MEDIAL THIGH
== END 2024-01-09 23:59 | disposition home or self-care (01) ==
LOC: WC 10:45
PROVIDERS: Referring Provider Internal Medicine; Visit Provider Nurse Practitioner Family
DX: L97.122 Non-pressure chronic ulcer of left thigh with fat layer exposed (principal); E66.01 Morbid (severe) obesity due to excess calories; Z68.43 Body mass index [BMI] 50.0-59.9, adult; L98.7 Excessive and redundant skin and subcutaneous tissue; E65 Localized adiposity; Z98.84 Bariatric surgery status; I89.0 Lymphedema, not elsewhere classified; R60.0 Localized edema; L30.4 Erythema intertrigo; Z87.891 Personal history of nicotine dependence
CPT/HCPCS: 11042

== ENCOUNTER 2024-01-29 13:15 | Outpatient (RCR) | payer MEDICAID, SELFPAY ==
[2024-01-10 00:27] VITALS: BP 154/67; PULSE 56; RESP 18; TEMP 36; BMI 57.7
[2024-01-22 10:42] VITALS: BP 149/95; PULSE 69; RESP 16; TEMP 36; BMI 57.7
--- NOTE | 2024-01-22 11:49 | PCM.WC.PN ---
History of Present Illness Date of Service: 01/22/24 Chief Complaint: Nonhealing ulcer left medial thigh. History of Wound: 48 year old man presents with areas of redundant skin and subcutaneous tissue in his bilateral medial thighs and abdominal panniculus with associated panniculitis. There is abdominal wall skin crease intertrigo and bilateral medial thigh intertrigo for which he uses powders for relief. This excess skin and subcutaneous tissue was the result of bariatric surgery done in [place] in May,. He lost about 250 lbs and his current weight is about 440 lbs. He has a history of lower extremity lymphedema resulting from the extreme body weight and has persistent dependent edema in his medial thighs which aggravates his symptomatology. He denies trauma. He denies fever. Both areas bother him but the medial thighs are his initial priority as he has trouble with ambulating. We received medical approval from his insurance company for his thigh surgery. Surgery 09/22/20 - Excision redundant skin and subcutaneous tissue left medial and posterior thigh with dermolipectomy. Surgery 10/05/22 - Surgical preparation right medial and posterior thigh with excision redundant skin and subcutaneous tissue with radical dermolipectomy. He went to [facility] for almost a month, he had a wound VAC while he was at [facility]. Hgb 8.7 on . Repeat Hgb 8.8 on 10/25/22 at [facility]. On iron supplementation but with his history of gastric bypass, that may impact his absorption of the iron. Rechecked on 12/12/22 Hgb 10.5. Arterial studies done on 03/23/23 which have triphasic Doppler waveforms are noted at ankle level bilaterally. Pulse-volume recordings appear satisfactory at calf, ankle, and digital levels bilaterally. Right EDDY= 1.27, Left EDDY= 1.28 There is no evidence of significant arterial occlusive disease in the lower extremities bilaterally. Vascular studies done on 03/23/23 show sapheno-femoral junctions are bilaterally incompetent . Acute and chronic superficial thrombophlebitis is noted in the right great saphenous vein above the knee. Chronic venous changes are noted in the left great saphenous vein above the knee. The right great saphenous vein appears incompetent below the knee. The left great saphenous vein appears segmentally incompetent. Small saphenous veins are patent and incompetent bilaterally. Accessory saphenous veins in the right proximal and mid-calf are incompetent. Accessory saphenous veins at the left knee, proximal calf, and mid-calf are incompetent. An incompetent rda vein is noted in the right calf, located 10 centimeters proximal to the right medial malleolus. An incompetent rda vein is noted in the left calf, located 12 centimeters proximal to the left medial malleolus. Wound care - Faby covered with ABDs daily and as needed. A wound culture was obtained 03/27/23 positive Proteus mirabilis, Staphylococcus aureus and he is on Bactrim. Today he denies fever and chills and states his appetite is good. Progress of Wound: Right medial leg ulcer is significantly larger today, it has a purple/bruised appearance. No odor. He said there is an increase in drainage. He denies any trauma to the area. He denies increase in pain. He is having more edema issues. He still has not been able to get in contact with the compression pump company. He consistently wears compression on his lower legs. A wound culture was obtained today, due to the change in the size of his ulcer.? A positive culture will necessitate antibiotic therapy. Objective Data Objective Data Vital Signs: Vital Signs Temp Pulse Resp BP O2 Del Method 96.8 F L 69 16 149/95 H Room Air 01/22/24 10:42 01/22/24 10:42 01/22/24 10:42 01/22/24 10:42 01/22/24 10:42 Oxygen Delivery Method Room Air Weight: 500 lb Body Mass Index (BMI) 57.7 Lab / Micro Data Micro: Microbiology 01/22/24 11:30 Wound - Leg, Right Gram Stain - Final 01/22/24 11:30 Wound - Leg, Right Wound Culture - Preliminary Gram negative em Charges/Coding Procedures Integumentary [id number]: [id number] Margarita subq tissue 20 sq cm/< Add On Codes: 38861 Margarita subq tissue add-on Debridement Note Debridement Note Wound debrided: Right medial thigh ulcer Laterality: Right Wound Grade/Stage: 3 Type of Debridement: Excisional debridement Anesthesia Used: 5% Lidocaine Gel Depth: Down to and including healthy tissue and in the subcutaneous layer Percentage of wound debrided: 100 Instrument Used: 5mm curette Tissue Removed: Devitalized tissue and slough Severity: Fat Layer Exposed Amount of bleeding with debridement: Mild Bleeding Controlled with: Pressure and Compression and gauze Patient tolerated procedure: Patient tolerated procedure well Post-Debridement Measurements and Additional Note: Post-Debridement Measurements/Treatment - Nurse 1 - General Ulcer Assessment Start: 01/22/24 10:42 Freq: Status: Active Protocol: WILLIAM Activity Type Activity Date Activity User E-sign Co-sign Detail Recorded Client Recorded Date Recorded By Document 01/22/24 10:42 [facility] Desktop 01/22/24 10:46 [facility] 01/22/24 10:42 WC - Today's Visit Information Type of service 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/[facility] ) Arrival Mode Ambulatory Transfer Assistance None Patient Identification Verified (Name & Yes ) Patient Requires Transmission-Based No Precautions Height and Weight Body Mass Index (BMI) 57.7 BMI Classification Obese Vital Signs Temperature (97.8 F-99.1 F) 96.8 F L Temperature Source Temporal Pulse Rate (60-100) 69 Pulse Location Monitor Respiratory Rate (12-18) 16 Respiratory rate source Observation Oxygen Delivery Method Room Air Blood Pressure (90/60-120/80) 149/95 H Blood Pressure Mean (mm Hg) 113 Source Monitor Position Sitting Blood Pressure Location Right Forearm History Since Last Visit- (Skip if this is Patient's initial visit) Have you changed medications since your No last visit? Any new allergies or adverse reactions No Had a fall/change in ADL's that may No increase risk of falls Signs or symptoms of abuse and/or No neglect since last visit Have you been in the hospital since your No last visit? Has dressing in place as prescribed Yes Has compression in place as prescribed Yes Has offloadiing in place as prescribed N/A Experienced any changes in pain level or No management Left Footwear Regular Shoe Right Footwear Regular Shoe Pain Scale: 0-10 Numeric Is Patient Pain Free? Yes - Nurse 1 - General Ulcer Measurement Start: 01/22/24 10:42 Freq: Status: Active Protocol: Activity Type Activity Date Activity User E-sign Co-sign Detail Recorded Client Recorded Date Recorded By Document 01/22/24 10:42 [facility] [email or web address] 01/22/24 10:46 [facility] 01/22/24 10:42 Wound Center Nurse 1 10. R medial thigh -Combined with other wound No -Current Size (cm) - Length 6.2 -Current Size (cm) - Width 4.5 -Current Size (cm) - Depth 0.1 -Total Square Cm 27.90 -Date of Last Picture (Recall this 01/22/24 field) -Photo Taken Yes -Epithelialization None Present -Tunneling No -Undermining/Tunneling No -Circular Undermining No -Exudate Amt Medium -Exudate Type Serosanguineous -Wound Margin Flat & Intact -Granulation Amt Medium (34-66%) -Granulation Quality Red -Slough/Fibrin Yes -Necrosis Amt Medium (34-66%) -Necrotic Tissue Type Adherent Slough -Texture (Josephine-wound Skin Appearance) Assessed -Moisture (Josephine-wound Skin Appearance) Assessed,Dry/ Scaly -Color (Josephine-wound Skin Appearance) Assessed, Ecchymosis, Erythema -Temperature (Josephine-wound Skin No Abnormality Appearance) (Pt Warm) -Tenderness on Palpation (Josephine-wound No Skin Appearance) -Ulcer Cleansing Rinsed/ Irrigated with Saline -Foul Odor after Cleansing No -Anesthetic Used 5% Lidocaine Gel WC - Nurse 2 - General Ulcer CM Notes Start: 01/22/24 10:42 Freq: Status: Active Protocol: Activity Type Activity Date Activity User E-sign Co-sign Detail Recorded Client Recorded Date Recorded By Document 01/22/24 11:32 DS Desktop 01/22/24 11:40 DS 01/22/24 11:32 Wound Center Nurse 2 -Time 11:33 -Correct Patient Yes -Correct Side, Site, Position Yes -Correct Procedure Yes -Procedure Performed Yes -Type of Procedure Debridement -Clinical Debridement Subcutaneous -Tissue Removed Subcutaneous -Post Debridement (cm) - Length 5.7 -Post Debridement (cm) - Width 6.5 -Post Debridement (cm) - Depth 0.1 -Total Square (Post) (cm) 37.05 -Area of Debridement (cm) - Length 5.7 -Area of Debridement (cm) - Width 6.5 -Total Square (Area) (cm) 37.05 -Tunneling No -Undermining/Tunneling No -Circular Undermining No -Wound/Ulcer Outcome Not Healed -Ulcer Cleansing Rinsed/ Irrigated with Saline -Bleeding Controlled with Pressure -Treatment Response Procedure Tolerated Well -Debridement - Subq, 1st 20sq cm Yes -Debridement, SubQ, ea addt'l 20sq cm 1 or part thereof Pain Scale: 0-10 Numeric Is Patient Pain Free? Yes WC - Nurse 3 - General Ulcer D/C NN Start: 01/22/24 10:42 Freq: Status: Active Protocol: Activity Type Activity Date Activity User E-sign Co-sign Detail Recorded Client Recorded Date Recorded By Document 01/22/24 11:44 DL Desktop 01/22/24 11:45 DL 01/22/24 11:44 Wound Care Center Nurse 3 10. R medial thigh -Ulcer Cleansing Rinsed/ Irrigated with Saline -Foul Odor after Cleansing No -Primary Dressing Applied Promogran Faby Matter -Other Dressing abd -Primary Dressing Covered/Secured with Secured with Tape -Promogran Faby Matter 1 Right -Compression Wrap Desmond Wrap Treatment Response Procedure Tolerated Well Pain Scale: 0-10 Numeric Is Patient Pain Free? Yes WC - Visit Discharge Discharge Condition Stable Ambulatory Status Ambulatory Transportation Private Auto Assessment/Plan Assessment/Plan (1) Nonhealing ulcer of right lower extremity with fat layer exposed: CODE(S): L97.912 - Non-pressure chronic ulcer of unspecified part of right lower leg with fat layer exposed (2) Acute postoperative anemia due to expected blood loss: CODE(S): D62 - Acute posthemorrhagic anemia (3) Edema of both lower extremities: CODE(S): R60.0 - Localized edema (4) Chronic acquired lymphedema: CODE(S): I89.0 - Lymphedema, not elsewhere classified (5) Excessive and redundant skin and subcutaneous tissue: CODE(S): L98.7 - Excessive and redundant skin and subcutaneous tissue (6) Intertrigo: CODE(S): L30.4 - Erythema intertrigo (7) Morbid obesity: CODE(S): E66.01 - Morbid (severe) obesity due to excess calories (8) Excessive body weight loss: CODE(S): R63.4 - Abnormal weight loss (9) History of bariatric surgery: CODE(S): Z98.84 - Bariatric surgery status (10) History of excision of mass: CODE(S): Z98.890 - Other specified postprocedural states (11) Former smoker: CODE(S): Z87.891 - Personal history of nicotine dependence PLAN: Plan Patient evaluated at the wound healing center today. Wound care - Right medial leg ulcer moistened Faby topped with ABD dressing daily and as needed after washing ulcer and josephine wound with soap and water. He wears an DESMOND wrap around his right thigh for compression. A wound culture was obtained 03/27/23 positive Proteus mirabilis, Staphylococcus aureus and he completed Bactrim. Now that he has had his vascular studies, he saw Dr. Herrera who agrees with compression and lymphedema pumps. Ordered lymphedema compression pumps to use at home to help control his lymphedema/edema. He states that he finally decided to use his compression pumps and they do not fit his legs. He still has not gotten through to the [employer] about this. Prealbumin 21.9 on 10/06/22. Encouraged increase in protein intake to help with wound healing. A wound culture was obtained today due to the significant change in his ulcer.? A positive culture will necessitate antibiotic therapy. Follow up 1 week.
--- NOTE | 2024-01-23 08:32 | WC ---
01/22/2024 RIGHT MEDIAL THIGH
[2024-01-29 13:20] VITALS: BP 174/79; PULSE 63; RESP 18; TEMP 36.4; BMI 57.7
--- NOTE | 2024-01-29 15:45 | PN.PCM_ITS ---
History of Present Illness Date of Service: 01/29/24 Chief Complaint: Nonhealing ulcer left medial thigh. History of Wound: 48 year old man presents with areas of redundant skin and subcutaneous tissue in his bilateral medial thighs and abdominal panniculus with associated panniculitis. There is abdominal wall skin crease intertrigo and bilateral medial thigh intertrigo for which he uses powders for relief. This excess skin and subcutaneous tissue was the result of bariatric surgery done in [place] in May,. He lost about 250 lbs and his current weight is about 440 lbs. He has a history of lower extremity lymphedema resulting from the extreme body weight and has persistent dependent edema in his medial thighs which aggravates his symptomatology. He denies trauma. He denies fever. Both areas bother him but the medial thighs are his initial priority as he has trouble with ambulating. We received medical approval from his insurance company for his thigh surgery. Surgery 09/22/20 - Excision redundant skin and subcutaneous tissue left medial and posterior thigh with dermolipectomy. Surgery 10/05/22 - Surgical preparation right medial and posterior thigh with excision redundant skin and subcutaneous tissue with radical dermolipectomy. He went to [facility] for almost a month, he had a wound VAC while he was at [facility]. Hgb 8.7 on . Repeat Hgb 8.8 on 10/25/22 at [facility]. On iron supplementation but with his history of gastric bypass, that may impact his abso rption of the iron. Rechecked on 12/12/22 Hgb 10.5. Arterial studies done on 03/23/23 which have triphasic Doppler waveforms are noted at ankle level bilaterally. Pulse-volume recordings appear satisfactory at calf, ankle, and digital levels bilaterally. Right EDDY= 1.27, Left EDDY= 1.28 There is no evidence of significant arterial occlusive disease in the lower extremities bilaterally. Vascular studies done on 03/23/23 show sapheno-femoral junctions are bilaterally incompetent . Acute and chronic superficial thrombophlebitis is noted in the right great saphenous vein above the knee. Chronic venous changes are noted in the left great saphenous vein above the knee. The right great saphenous vein appears incompetent below the knee. The left great saphenous vein appears segmentally incompetent. Small saphenous veins are patent and incompetent bilaterally. Accessory saphenous veins in the right proximal and mid-calf are incompetent. Accessory saphenous veins at the left knee, proximal calf, and mid-calf are incompetent. An incompetent lead medical technologist vein is noted in the right calf, located 10 centimeters proximal to the right medial malleolus. An incompetent lead medical technologist vein is noted in the left calf, located 12 centimeters proximal to the left medial malleolus. Wound care - Faby covered with ABDs daily and as needed. A wound culture was obtained 03/27/23 positive Proteus mirabilis, Staphylococcus aureus and he is on Bactrim. Wound culture obtained on 01/22/24 positive for Proteus mirabilis and Anaerobes. He was treated with Bactrim and Flagyl. Today he denies fever and chills and states his appetite is good. Progress of Wound: Right medial leg ulcer has improved and is smaller since he was started on Bactim and Flagyl for his positive wound cultures. Objective Data Objective Data Vital Signs: Vital Signs Temp Pulse Resp BP O2 Del Method 97.6 F L 63 18 174/79 H Room Air 01/29/24 13:20 01/29/24 13:20 01/29/24 13:20 01/29/24 13:20 01/29/24 13:20 Oxygen Delivery Method Room Air Weight: 500 lb Body Mass Index (BMI) 57.7 Lab / Micro Data Micro: Microbiology 01/22/24 11:30 Wound - Leg, Right Gram Stain - Final 01/22/24 11:30 Wound - Leg, Right Wound Culture - Final Proteus mirabilis 01/22/24 11:30 Wound - Leg, Right Anaerobic Culture - Final Anaerobic cocci Charges/Coding Procedures Integumentary [id number]: [id number] Margarita subq tissue 20 sq cm/< Add On Codes: 49723 Margarita subq tissue add-on Debridement Note Debridement Note Wound debrided: Right medial thigh ulcer Laterality: Right Wound Grade/Stage: 3 Type of Debridement: Excisional debridement Anesthesia Used: 5% Lidocaine Gel Depth: Down to and including healthy tissue and in the subcutaneous layer Percentage of wound debrided: 100 Instrument Used: 5mm curette Tissue Removed: Devitalized tissue and slough Severity: Fat Layer Exposed Amount of bleeding with debridement: Mild Bleeding Controlled with: Pressure and Compression and gauze Patient tolerated procedure: Patient tolerated procedure well Post-Debridement Measurements and Additional Note: Post-Debridement Measurements/Treatment WC - Nurse 1 - General Ulcer Assessment Start: 01/22/24 10:42 Freq: Status: Active Protocol: WILLIAM Activity Type Activity Date Activity User E-sign Co-sign Detail Recorded Client Recorded Date Recorded By Document 01/22/24 10:42 [facility] Desktop 01/22/24 10:46 F Document 01/29/24 13:20 KW wound center 01/29/24 13:25 KW 01/22/24 01/29/24 10:42 13:20 WC - Today's Visit Information Type of service Follow-up Visit 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/CHALK EXTRUDING 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 (Physician/CHALK EXTRUDING 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 ) ) Arrival Mode Ambulatory Ambulatory Transfer Assistance None Patient Identification Verified (Name & Yes Yes ) Patient Requires Transmission-Based No Precautions Height and Weight Body Mass Index (BMI) 57.7 57.7 BMI Classification Obese Obese Vital Signs Temperature (97.8 F-99.1 F) 96.8 F L 97.6 F L Temperature Source Temporal Temporal Pulse Rate (60-100) 69 63 Pulse Location Monitor Monitor Respiratory Rate (12-18) 16 18 Respiratory rate source Observation Observation Oxygen Delivery Method Room Air Room Air Blood Pressure (90/60-120/80) 149/95 H 174/79 H Blood Pressure Mean (mm Hg) 113 110 Source Monitor Monitor Position Sitting Sitting Blood Pressure Location Right Forearm Left Forearm History Since Last Visit- (Skip if this is Patient's initial visit) Have you changed medications since your No No last visit? Any new allergies or adverse reactions No No Had a fall/change in ADL's that may No No increase risk of falls Signs or symptoms of abuse and/or No No neglect since last visit Have you been in the hospital since your No No last visit? Has dressing in place as prescribed Yes Yes Has compression in place as prescribed Yes N/A Has offloadiing in place as prescribed N/A N/A Experienced any changes in pain level or No No management Left Footwear Regular Shoe Regular Shoe Right Footwear Regular Shoe Regular Shoe Pain Scale: 0-10 Numeric Is Patient Pain Free? Yes Yes - Nurse 1 - General Ulcer Measurement Start: 01/22/24 10:42 Freq: Status: Active Protocol: Activity Type Activity Date Activity User E-sign Co-sign Detail Recorded Client Recorded Date Recorded By Document 01/22/24 10:42 [facility] Desktop 05/13/24 10:46 [facility] Document 01/29/24 13:20 KW wound center 01/29/24 13:25 KW 01/22/24 01/29/24 10:42 13:20 Wound Center Nurse 1 10. R medial thigh -Combined with other wound No -Current Size (cm) - Length 6.2 5.3 -Current Size (cm) - Width 4.5 3.8 -Current Size (cm) - Depth 0.1 0.1 -Total Square Cm 27.90 20.14 -Date of Last Picture (Recall this 01/22/24 field) -Photo Taken Yes -Epithelialization None Present -Tunneling No -Undermining/Tunneling No -Circular Undermining No -Exudate Amt Medium Large -Exudate Type Serosanguineous Serosanguineous -Wound Margin Flat & Intact Distinct, Outline Attached -Granulation Amt Medium (34-66%) Large (67-100%) -Granulation Quality [place] -Slough/Fibrin Yes -Necrosis Amt Medium (34-66%) Small (1-33%) -Necrotic Tissue Type Adherent Slough Adherent Slough -Texture (Josephine-wound Skin Appearance) Assessed Assessed -Moisture (Josephine-wound Skin Appearance) Assessed,Dry/ Assessed Scaly -Color (Josephine-wound Skin Appearance) Assessed, Assessed Ecchymosis, Erythema -Temperature (Josephine-wound Skin No Abnormality No Abnormality Appearance) (Pt Warm) (Pt Warm) -Tenderness on Palpation (Josephine-wound No No Skin Appearance) -Ulcer Cleansing Rinsed/ Rinsed/ Irrigated with Irrigated with Saline Saline -Foul Odor after Cleansing No No -Anesthetic Used 5% Lidocaine 5% Lidocaine Gel Gel WC - Nurse 2 - General Ulcer CM Notes Start: 01/22/24 10:42 Freq: Status: Active Protocol: Activity Type Activity Date Activity User E-sign Co-sign Detail Recorded Client Recorded Date Recorded By Document 01/22/24 11:32 DS Desktop 01/22/24 11:40 DS Document 01/29/24 13:46 [place] [id number] 01/29/24 13:50 DS 01/22/24 01/29/24 11:32 13:46 Wound Center Nurse 2 10. R medial thigh -Time 11:33 13:46 -Correct Patient Yes Yes -Correct Side, Site, Position Yes Yes -Correct Procedure Yes Yes -Procedure Performed Yes Yes -Type of Procedure Debridement Debridement -Clinical Debridement Subcutaneous Subcutaneous -Tissue Removed Subcutaneous Subcutaneous -Post Debridement (cm) - Length 5.7 4.3 -Post Debridement (cm) - Width 6.5 5.2 -Post Debridement (cm) - Depth 0.1 0.1 -Total Square (Post) (cm) 37.05 22.36 -Area of Debridement (cm) - Length 5.7 4.3 -Area of Debridement (cm) - Width 6.5 5.2 -Total Square (Area) (cm) 37.05 22.36 -Tunneling No No -Undermining/Tunneling No No -Circular Undermining No No -Wound/Ulcer Outcome Not Healed Not Healed -Ulcer Cleansing Rinsed/ Rinsed/ Irrigated with Irrigated with Saline Saline -Bleeding Controlled with Pressure Pressure -Treatment Response Procedure Procedure Tolerated Well Tolerated Well -Debridement - Subq, 1st 20sq cm Yes Yes -Debridement, SubQ, ea addt'l 20sq cm 1 1 or part thereof Pain Scale: 0-10 Numeric Is Patient Pain Free? Yes Yes - Nurse 3 - General Ulcer D/C NN Start: 01/22/24 10:42 Freq: Status: Active Protocol: Activity Type Activity Date Activity User E-sign Co-sign Detail Recorded Client Recorded Date Recorded By Document 01/22/24 11:44 DL Desktop 01/22/24 11:45 DL Document 01/29/24 13:58 [id number] 01/29/24 13:58 01/22/24 01/29/24 11:44 13:58 Wound Care Center Nurse 3 10. R medial thigh -Ulcer Cleansing Rinsed/ Rinsed/ Irrigated with Irrigated with Saline Saline -Foul Odor after Cleansing No No -Primary Dressing Applied Promogran Promogran Faby Matter Faby Matter -Other Dressing abd -Primary Dressing Covered/Secured with Secured with Secured with Tape Tape -Other Covering abd pad -Promogran Faby Matter 1 1 Right -Compression Wrap Desmond Wrap Desmond Wrap Treatment Response Procedure Tolerated Well Pain Scale: 0-10 Numeric Is Patient Pain Free? Yes Yes - Visit Discharge Discharge Condition Stable Stable Ambulatory Status Ambulatory Ambulatory Transportation Private Auto Private Auto Medication Reconcilliation completed & Yes provided to patient/care provider Clinical Summary of Care Provided Yes Assessment/Plan Assessment/Plan (1) Nonhealing ulcer of right lower extremity with fat layer exposed: CODE(S): L97.912 - Non-pressure chronic ulcer of unspecified part of right lower leg with fat layer exposed (2) Acute postoperative anemia due to expected blood loss: CODE(S): D62 - Acute posthemorrhagic anemia (3) Edema of both lower extremities: CODE(S): R60.0 - Localized edema (4) Chronic acquired lymphedema: CODE(S): I89.0 - Lymphedema, not elsewhere classified (5) Excessive and redundant skin and subcutaneous tissue: CODE(S): L98.7 - Excessive and redundant skin and subcutaneous tissue (6) Intertrigo: CODE(S): L30.4 - Erythema intertrigo (7) Morbid obesity: CODE(S): E66.01 - Morbid (severe) obesity due to excess calories (8) Excessive body weight loss: CODE(S): R63.4 - Abnormal weight loss (9) History of bariatric surgery: CODE(S): Z98.84 - Bariatric surgery status (10) History of excision of mass: CODE(S): Z98.890 - Other specified postprocedural states (11) Former smoker: CODE(S): Z87.891 - Personal history of nicotine dependence PLAN: Plan Patient evaluated at the wound healing center today. Wound care - Right medial leg ulcer moistened Faby topped with ABD dressing daily and as needed after washing ulcer and josephine wound with soap and water. He wears an DESMOND wraps for compression. We will order Farrow wraps for him. A wound culture was obtained 03/27/23 positive Proteus mirabilis, Staphylococcus aureus and he completed Bactrim. Wound culture obtained on 01/22/24 positive for Proteus mirabilis and Anaerobes. He was treated with Bactrim and Flagyl. Now that he has had his vascular studies, he saw Dr. Herrera who agrees with compression and lymphedema pumps. Ordered lymphedema compression pumps to use at home to help control his lymphedema/edema. He states that he finally decided to use his compression pumps and they do not fit his legs. He still has not gotten through to the company about this. Prealbumin 21.9 on 10/06/22. Encouraged increase in protein intake to help with wound healing. Follow up 3 weeks.
== END 2024-02-09 23:59 | disposition home or self-care (01) ==
LOC: WC 13:15
PROVIDERS: Referring Provider Internal Medicine; Visit Provider Nurse Practitioner Family
DX: L97.112 Non-pressure chronic ulcer of right thigh with fat layer exposed (principal); E66.01 Morbid (severe) obesity due to excess calories; Z68.43 Body mass index [BMI] 50.0-59.9, adult; L98.7 Excessive and redundant skin and subcutaneous tissue; M79.3 Panniculitis, unspecified; L30.4 Erythema intertrigo; Z98.84 Bariatric surgery status; I89.0 Lymphedema, not elsewhere classified; R60.0 Localized edema; Z87.891 Personal history of nicotine dependence
CPT/HCPCS: 11042; 11045; 87070; 87075; 87077; 87186; 87205

== ENCOUNTER 2024-03-06 14:30 | Outpatient (RCR) | payer MEDICAID, SELFPAY ==
[2024-02-10 01:55] VITALS: BP 154/67; PULSE 56; RESP 18; TEMP 36; BMI 57.7
[2024-02-19 13:16] VITALS: BP 167/86; PULSE 71; RESP 18; TEMP 36.6; BMI 57.7
--- NOTE | 2024-02-19 15:58 | PN.PCM_ITS ---
History of Present Illness Date of Service: 02/19/24 Chief Complaint: Nonhealing ulcer left medial thigh. History of Wound: 48 year old man presents with areas of redundant skin and subcutaneous tissue in his bilateral medial thighs and abdominal panniculus with associated panniculitis. There is abdominal wall skin crease intertrigo and bilateral medial thigh intertrigo for which he uses powders for relief. This excess skin and subcutaneous tissue was the result of bariatric surgery done in [place] in May,. He lost about 250 lbs and his current weight is about 440 lbs. He has a history of lower extremity lymphedema resulting from the extreme body weight and has persistent dependent edema in his medial thighs which aggravates his symptomatology. He denies trauma. He denies fever. Both areas bother him but the medial thighs are his initial priority as he has trouble with ambulating. We received medical approval from his insurance company for his thigh surgery. Surgery 09/22/20 - Excision redundant skin and subcutaneous tissue left medial and posterior thigh with dermolipectomy. Surgery 10/05/22 - Surgical preparation right medial and posterior thigh with excision redundant skin and subcutaneous tissue with radical dermolipectomy. He went to [facility] for almost a month, he had a wound VAC while he was at [facility]. Hgb 8.7 on . Repeat Hgb 8.8 on 10/25/[address] [facility]. On iron supplementation but with his history of gastric bypass, that may impact his abso rption of the iron. Rechecked on 12/12/22 Hgb 10.5. Arterial studies done on 03/23/23 which have triphasic Doppler waveforms are noted at ankle level bilaterally. Pulse-volume recordings appear satisfactory at calf, ankle, and digital levels bilaterally. Right EDDY= 1.27, Left EDDY= 1.28 There is no evidence of significant arterial occlusive disease in the lower extremities bilaterally. Vascular studies done on 03/23/23 show sapheno-femoral junctions are bilaterally incompetent . Acute and chronic superficial thrombophlebitis is noted in the right great saphenous vein above the knee. Chronic venous changes are noted in the left great saphenous vein above the knee. The right great saphenous vein appears incompetent below the knee. The left great saphenous vein appears segmentally incompetent. Small saphenous veins are patent and incompetent bilaterally. Accessory saphenous veins in the right proximal and mid-calf are incompetent. Accessory saphenous veins at the left knee, proximal calf, and mid-calf are incompetent. An incompetent physical therapy teacher vein is noted in the right calf, located 10 centimeters proximal to the right medial malleolus. An incompetent physical therapy teacher vein is noted in the left calf, located 12 centimeters proximal to the left medial malleolus. A wound culture was obtained 03/27/23 positive Proteus mirabilis, Staphylococcus aureus and he is on Bactrim. Today he denies fever and chills and states his appetite is good. Progress of Wound: Right medial leg ulcer is larger this visit. There is hypergranulation tissue present. He states he still is taking his antibiotics because he doesn't remember to take them 3 times per day. Objective Data Objective Data Vital Signs: Vital Signs Temp Pulse Resp BP O2 Del Method 97.9 F 71 18 167/86 H Room Air 02/19/24 13:16 02/19/24 13:16 02/19/24 13:16 02/19/24 13:16 02/19/24 13:16 Oxygen Delivery Method Room Air Weight: 500 lb Body Mass Index (BMI) 57.7 Charges/Coding Procedures Integumentary 111xxx-113xx: 11772 Margarita subq tissue 20 sq cm/< Add On Codes: 39337 Margarita subq tissue add-on Debridement Note Debridement Note Wound debrided: Right medial thigh ulcer Laterality: Right Wound Grade/Stage: 3 Type of Debridement: Excisional debridement Anesthesia Used: 5% Lidocaine Gel Depth: Down to and including healthy tissue and in the subcutaneous layer Percentage of wound debrided: 100 Instrument Used: 7mm curette Tissue Removed: Devitalized tissue and slough Severity: Fat Layer Exposed Amount of bleeding with debridement: Mild Bleeding Controlled with: Pressure, Compression and gauze and Silver Nitrate (Used due to hypergranulation tissue ) Patient tolerated procedure: Patient tolerated procedure well Post-Debridement Measurements and Additional Note: Post-Debridement Measurements/Treatment - Nurse 1 - General Ulcer Assessment Start: 02/19/24 13:16 Freq: Status: Active Protocol: LOWEXCristina Activity Type Activity Date Activity User E-sign Co-sign Detail Recorded Client Recorded Date Recorded By Document 02/19/24 13:16 KW wound center 02/19/24 13:21 KW 02/19/24 13:16 - Today's Visit Information Type of service 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/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 CYBER 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 ) Arrival Mode Ambulatory Patient Identification Verified (Name & Yes ) Height and Weight Body Mass Index (BMI) 57.7 BMI Classification Obese Vital Signs Temperature (97.8 F-99.1 F) 97.9 F Temperature Source Temporal Pulse Rate (60-100) 71 Pulse Location Monitor Respiratory Rate (12-18) 18 Respiratory rate source Observation Oxygen Delivery Method Room Air Blood Pressure (90/60-120/80) 167/86 H Blood Pressure Mean (mm Hg) 113 Source Monitor Position Semi-Fowlers Blood Pressure Location Left Forearm History Since Last Visit- (Skip if this is Patient's initial visit) Have you changed medications since your No last visit? Any new allergies or adverse reactions No Had a fall/change in ADL's that may No increase risk of falls Signs or symptoms of abuse and/or No neglect since last visit Have you been in the hospital since your No last visit? Has dressing in place as prescribed Yes Has compression in place as prescribed N/A Has offloadiing in place as prescribed N/A Experienced any changes in pain level or No management Left Footwear Regular Shoe Right Footwear Regular Shoe Pain Scale: 0-10 Numeric Is Patient Pain Free? Yes - Nurse 1 - General Ulcer Measurement Start: 02/19/24 13:16 Freq: Status: Active Protocol: Activity Type Activity Date Activity User E-sign Co-sign Detail Recorded Client Recorded Date Recorded By Document 02/19/24 13:16 KW wound center 02/19/24 13:21 KW 02/19/24 13:16 Wound Center Nurse 1 10. R medial thigh -Current Size (cm) - Length 6 -Current Size (cm) - Width 6 -Current Size (cm) - Depth 0.4 -Total Square Cm 36 -Exudate Amt Large -Exudate Type Serosanguineous -Wound Margin Distinct, Outline Attached -Granulation Amt Medium (34-66%) -Granulation Quality Red -Necrosis Amt Medium (34-66%) -Necrotic Tissue Type Adherent Slough -Texture (Josephine-wound Skin Appearance) Scarring -Moisture (Josephine-wound Skin Appearance) Assessed -Color (Josephine-wound Skin Appearance) Assessed -Temperature (Josephine-wound Skin No Abnormality Appearance) (Pt Warm) -Tenderness on Palpation (Josephine-wound No Skin Appearance) -Ulcer Cleansing Rinsed/ Irrigated with Saline -Foul Odor after Cleansing No -Anesthetic Used 5% Lidocaine Gel - Nurse 2 - General Ulcer CM Notes Start: 02/19/24 13:16 Freq: Status: Active Protocol: Activity Type Activity Date Activity User E-sign Co-sign Detail Recorded Client Recorded Date Recorded By Document 02/19/24 13:29 [facility] [id number] 02/19/24 13:44 [facility] 02/19/24 13:29 Wound Center Nurse 2 -Time 13:29 -Correct Patient Yes -Correct Side, Site, Position Yes -Correct Procedure Yes -Procedure Performed Yes -Type of Procedure Debridement -Clinical Debridement Subcutaneous -Tissue Removed Subcutaneous -Post Debridement (cm) - Length 5.4 -Post Debridement (cm) - Width 6.8 -Post Debridement (cm) - Depth 0.2 -Total Square (Post) (cm) 36.72 -Area of Debridement (cm) - Length 5.4 -Area of Debridement (cm) - Width 6.8 -Total Square (Area) (cm) 36.72 -Tunneling No -Undermining/Tunneling No -Circular Undermining No -Wound/Ulcer Outcome Not Healed -Ulcer Cleansing Rinsed/ Irrigated with Saline -Foul Odor after Cleansing No -Bioengineered Tissue No -Bleeding Controlled with Silver Nitrate -Treatment Response Procedure Tolerated Well -Debridement - Subq, 1st 20sq cm Yes -Debridement, SubQ, ea addt'l 20sq cm 1 or part thereof Pain Scale: 0-10 Numeric Is Patient Pain Free? Yes - Nurse 3 - General Ulcer D/C NN Start: 02/19/24 13:16 Freq: Status: Active Protocol: Activity Type Activity Date Activity User E-sign Co-sign Detail Recorded Client Recorded Date Recorded By Document 02/19/24 13:57 wound center 02/19/24 14:00 KW 02/19/24 13:57 Wound Care Center Nurse 3 10. R medial thigh -Primary Dressing Applied Aquacel AG 4x4 -Primary Dressing Covered/Secured with Dry Gauze, Secured with Tape -Aquacel AG 4x4 2 Right -Compression Wrap Desmond Wrap Pain Scale: 0-10 Numeric Is Patient Pain Free? Yes - Visit Discharge Discharge Condition Stable Ambulatory Status Ambulatory Transportation Private Auto Medication Reconcilliation completed & No provided to patient/care provider Clinical Summary of Care Provided Yes Assessment/Plan Assessment/Plan (1) Nonhealing ulcer of right lower extremity with fat layer exposed: CODE(S): L97.912 - Non-pressure chronic ulcer of unspecified part of right lower leg with fat layer exposed (2) Acute postoperative anemia due to expected blood loss: CODE(S): D62 - Acute posthemorrhagic anemia (3) Edema of both lower extremities: CODE(S): R60.0 - Localized edema (4) Chronic acquired lymphedema: CODE(S): I89.0 - Lymphedema, not elsewhere classified (5) Excessive and redundant skin and subcutaneous tissue: CODE(S): L98.7 - Excessive and redundant skin and subcutaneous tissue (6) Intertrigo: CODE(S): L30.4 - Erythema intertrigo (7) Morbid obesity: CODE(S): E66.01 - Morbid (severe) obesity due to excess calories (8) Excessive body weight loss: CODE(S): R63.4 - Abnormal weight loss (9) History of bariatric surgery: CODE(S): Z98.84 - Bariatric surgery status (10) History of excision of mass: CODE(S): Z98.890 - Other specified postprocedural states (11) Former smoker: CODE(S): Z87.891 - Personal history of nicotine dependence PLAN: Plan Patient evaluated at the wound healing center today. Wound care - Right medial leg ulcer stop moistened Faby and start Aquacel-Ag topped with ABD dressing daily and as needed after washing ulcer and josephine wound with soap and water. He wears an DESMOND wraps for compression. We ordered Farrow wraps for him, which he states he has not received yet. A wound culture was obtained 03/27/23 positive Proteus mirabilis, Staphylococcus aureus and he completed Bactrim. Wound culture obtained on 01/22/24 positive for Proteus mirabilis and Anaerobes. He was treated with Bactrim and Flagyl. Stressed importance of completing antibiotics. Now that he has had his vascular studies, he saw Dr. Herrera who agrees with compression and lymphedema pumps. Ordered lymphedema compression pumps to use at home to help control his lymphedema/edema. He states that he finally decided to use his compression pumps and they do not fit his legs. He still has not gotten through to the [employer] about this. Prealbumin 21.9 on 10/06/22. Encouraged increase in protein intake to help with wound healing. Follow up 2 weeks.
[2024-03-06 14:59] VITALS: RESP 18; BMI 57.7
--- NOTE | 2024-03-06 16:13 | PCM.WC.PN ---
History of Present Illness Date of Service: 03/06/24 Chief Complaint: Nonhealing ulcer left medial thigh. History of Wound: 48 year old man presents with areas of redundant skin and subcutaneous tissue in his bilateral medial thighs and abdominal panniculus with associated panniculitis. There is abdominal wall skin crease intertrigo and bilateral medial thigh intertrigo for which he uses powders for relief. This excess skin and subcutaneous tissue was the result of bariatric surgery done in [place] in May,. He lost about 250 lbs and his current weight is about 440 lbs. He has a history of lower extremity lymphedema resulting from the extreme body weight and has persistent dependent edema in his medial thighs which aggravates his symptomatology. He denies trauma. He denies fever. Both areas bother him but the medial thighs are his initial priority as he has trouble with ambulating. We received medical approval from his insurance company for his thigh surgery. Surgery 09/22/20 - Excision redundant skin and subcutaneous tissue left medial and posterior thigh with dermolipectomy. Surgery 10/05/22 - Surgical preparation right medial and posterior thigh with excision redundant skin and subcutaneous tissue with radical dermolipectomy. He went to [facility] for almost a month, he had a wound VAC while he was at [facility]. Hgb 8.7 on . Repeat Hgb 8.8 on 10/25/22 at [facility]. On iron supplementation but with his history of gastric bypass, that may impact his absorption of the iron. Rechecked on 12/12/22 Hgb 10.5. Arterial studies done on 03/23/23 which have triphasic Doppler waveforms are noted at ankle level bilaterally. Pulse-volume recordings appear satisfactory at calf, ankle, and digital levels bilaterally. Right EDDY= 1.27, Left EDDY= 1.28 There is no evidence of significant arterial occlusive disease in the lower extremities bilaterally. Vascular studies done on 03/23/23 show sapheno-femoral junctions are bilaterally incompetent . Acute and chronic superficial thrombophlebitis is noted in the right great saphenous vein above the knee. Chronic venous changes are noted in the left great saphenous vein above the knee. The right great saphenous vein appears incompetent below the knee. The left great saphenous vein appears segmentally incompetent. Small saphenous veins are patent and incompetent bilaterally. Accessory saphenous veins in the right proximal and mid-calf are incompetent. Accessory saphenous veins at the left knee, proximal calf, and mid-calf are incompetent. 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 An incompetent chemical plant technical director vein is noted in the left calf, located 12 centimeters proximal to the left medial malleolus. A wound culture was obtained 03/27/23 positive Proteus mirabilis, Staphylococcus aureus and he is on Bactrim. Today he denies fever and chills and states his appetite is good. Progress of Wound: Right medial leg ulcer is slightly smaller. There is hypergranulation tissue present. Objective Data Objective Data Vital Signs: Vital Signs Temp Pulse Resp BP O2 Del Method 97.9 F 71 18 167/86 H Room Air 02/19/24 13:16 02/19/24 13:16 03/06/24 14:59 02/19/24 13:16 03/06/24 14:59 Oxygen Delivery Method Room Air Weight: 500 lb Body Mass Index (BMI) 57.7 Charges/Coding Procedures Integumentary 111xxx-113xx: [id number] Margarita subq tissue 20 sq cm/< Add On Codes: 39397 Margarita subq tissue add-on Debridement Note Debridement Note Wound debrided: Right medial thigh ulcer Laterality: Right Wound Grade/Stage: 3 Type of Debridement: Excisional debridement Anesthesia Used: 5% Lidocaine Gel Depth: Down to and including healthy tissue and in the subcutaneous layer Percentage of wound debrided: 100 Instrument Used: 7mm curette Tissue Removed: Devitalized tissue and slough Severity: Fat Layer Exposed Amount of bleeding with debridement: Moderate Bleeding Controlled with: Pressure, Compression and gauze and Silver Nitrate (Used due to hypergranulation tissue ) Patient tolerated procedure: Patient tolerated procedure well Post-Debridement Measurements and Additional Note: Post-Debridement Measurements/Treatment ACOSTA - Nurse 1 - General Ulcer Assessment Start: 02/19/24 13:16 Freq: Status: Active Protocol: WILLIAM Activity Type Activity Date Activity User E-sign Co-sign Detail Recorded Client Recorded Date Recorded By Document 02/19/24 13:16 K[facility] wound center 02/19/24 13:21 KW Document 03/06/24 14:59 BMF 10.10.25.7 03/06/24 15:06 BMF 02/19/24 03/06/24 13:16 14:59 - Today's Visit Information Type of service Follow-up Visit 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/TRAVEL CONSULTANT (Physician/TRAVEL CONSULTANT ) ) Arrival Mode Ambulatory Ambulatory Transfer Assistance None Patient Identification Verified (Name & Yes Yes ) Patient Requires Transmission-Based No Precautions Height and Weight Body Mass Index (BMI) 57.7 57.7 BMI Classification Obese Obese Vital Signs Temperature (97.8 F-99.1 F) 97.9 F Temperature Source Temporal Temporal Pulse Rate (60-100) 71 Pulse Location Monitor Respiratory Rate (12-18) 18 18 Respiratory rate source Observation Observation Oxygen Delivery Method Room Air Room Air Blood Pressure (90/60-120/80) 167/86 H Blood Pressure Mean (mm Hg) 113 Source Monitor Position Semi-Fowlers Blood Pressure Location Left Forearm History Since Last Visit- (Skip if this is Patient's initial visit) Have you changed medications since your No No last visit? Any new allergies or adverse reactions No No Had a fall/change in ADL's that may No No increase risk of falls Signs or symptoms of abuse and/or No No neglect since last visit Have you been in the hospital since your No No last visit? Has dressing in place as prescribed Yes Yes Has compression in place as prescribed N/A N/A Has offloadiing in place as prescribed N/A N/A Experienced any changes in pain level or No No management Left Footwear Regular Shoe Regular Shoe Right Footwear Regular Shoe Regular Shoe Pain Scale: 0-10 Numeric Is Patient Pain Free? Yes Yes - Nurse 1 - General Ulcer Measurement Start: 02/19/24 13:16 Freq: Status: Active Protocol: Activity Type Activity Date Activity User E-sign Co-sign Detail Recorded Client Recorded Date Recorded By Document 02/19/24 13:16 KW wound center 02/19/24 13:21 KW Document 03/06/24 14:59 BM 10.10.25.7 03/06/24 15:06 [facility] 02/19/24 03/06/24 13:16 14:59 Wound Center Nurse 1 10. R medial thigh -Combined with other wound No -Current Size (cm) - Length 6 5.2 -Current Size (cm) - Width 6 4.5 -Current Size (cm) - Depth 0.4 0.1 -Total Square Cm 36 23.40 -Date of Last Picture (Recall this 03/06/24 field) -Photo Taken Yes -Epithelialization Small 1-33% -Tunneling No -Undermining/Tunneling No -Circular Undermining No -Exudate Amt Large Large -Exudate Type Serosanguineous Yellow/Green -Wound Margin Distinct, Distinct, Outline Outline Attached Attached -Granulation Amt Medium (34-66%) Large (67-100%) -Granulation Quality Red Red -Slough/Fibrin Yes -Necrosis Amt Medium (34-66%) Small (1-33%) -Necrotic Tissue Type Adherent Slough Adherent Slough -Texture (Josephine-wound Skin Appearance) Scarring Assessed, Scarring -Moisture (Josephine-wound Skin Appearance) Assessed Assessed,Dry/ Scaly -Color (Josephine-wound Skin Appearance) Assessed Assessed -Temperature (Josephine-wound Skin No Abnormality No Abnormality Appearance) (Pt Warm) (Pt Warm) -Tenderness on Palpation (Josephine-wound No No Skin Appearance) -Ulcer Cleansing Rinsed/ Rinsed/ Irrigated with Irrigated with Saline Saline -Foul Odor after Cleansing No No -Anesthetic Used 5% Lidocaine 5% Lidocaine Gel Gel - Nurse 2 - General Ulcer CM Notes Start: 02/19/24 13:16 Freq: Status: Active Protocol: Activity Type Activity Date Activity User E-sign Co-sign Detail Recorded Client Recorded Date Recorded By Document 02/19/24 13:29 [facility] [id number] 02/19/24 13:44 [facility] Document 03/06/24 15:20 [facility] 03/06/24 15:27 02/19/24 03/06/24 13:29 15:20 Wound Center Nurse 2 10. R medial thigh -Time 13:29 15:20 -Correct Patient Yes Yes -Correct Side, Site, Position Yes Yes -Correct Procedure Yes Yes -Procedure Performed Yes Yes -Type of Procedure Debridement Debridement -Clinical Debridement Subcutaneous Subcutaneous -Tissue Removed Subcutaneous Subcutaneous -Post Debridement (cm) - Length 5.4 4.5 -Post Debridement (cm) - Width 6.8 5.0 -Post Debridement (cm) - Depth 0.2 0.1 -Total Square (Post) (cm) 36.72 22.50 -Area of Debridement (cm) - Length 5.4 4.5 -Area of Debridement (cm) - Width 6.8 5.0 -Total Square (Area) (cm) 36.72 22.50 -Tunneling No No -Undermining/Tunneling No No -Circular Undermining No No -Wound/Ulcer Outcome Not Healed Not Healed -Ulcer Cleansing Rinsed/ Rinsed/ Irrigated with Irrigated with Saline Saline -Foul Odor after Cleansing No No -Bioengineered Tissue No No -Bleeding Controlled with Silver Nitrate Pressure,Silver Nitrate -Treatment Response Procedure Procedure Tolerated Well Tolerated Well -Debridement - Subq, 1st 20sq cm Yes Yes -Debridement, SubQ, ea addt'l 20sq cm 1 1 or part thereof Pain Scale: 0-10 Numeric Is Patient Pain Free? Yes Yes - Nurse 3 - General Ulcer D/C NN Start: 02/19/24 13:16 Freq: Status: Active Protocol: Activity Type Activity Date Activity User E-sign Co-sign Detail Recorded Client Recorded Date Recorded By Document 02/19/24 13:57 KW wound center 02/19/24 14:00 KW Document 03/06/24 15:36 RB wound 03/06/24 15:38 RB 02/19/24 03/06/24 13:57 15:36 Wound Care Center Nurse 3 10. R medial thigh -Primary Dressing Applied Aquacel AG 4x4 Aquacel AG 4x4 -Other Dressing ABD/tape/ DESMOND -Primary Dressing Covered/Secured with Dry Gauze, Dry Gauze Secured with Tape -Aquacel AG 4x4 2 1 Right -Compression Wrap Desmond Wrap Treatment Response Procedure Tolerated Well Pain Scale: 0-10 Numeric Is Patient Pain Free? Yes Yes - Visit Discharge Discharge Condition Stable Stable Ambulatory Status Ambulatory Ambulatory Transportation Private Auto Private Auto Medication Reconcilliation completed & No No provided to patient/care provider Clinical Summary of Care Provided Yes Yes Assessment/Plan Assessment/Plan (1) Nonhealing ulcer of right lower extremity with fat layer exposed: CODE(S): L97.912 - Non-pressure chronic ulcer of unspecified part of right lower leg with fat layer exposed (2) Acute postoperative anemia due to expected blood loss: CODE(S): D62 - Acute posthemorrhagic anemia (3) Edema of both lower extremities: CODE(S): R60.0 - Localized edema (4) Chronic acquired lymphedema: CODE(S): I89.0 - Lymphedema, not elsewhere classified (5) Excessive and redundant skin and subcutaneous tissue: CODE(S): L98.7 - Excessive and redundant skin and subcutaneous tissue (6) Intertrigo: CODE(S): L30.4 - Erythema intertrigo (7) Morbid obesity: CODE(S): E66.01 - Morbid (severe) obesity due to excess calories (8) Excessive body weight loss: CODE(S): R63.4 - Abnormal weight loss (9) History of bariatric surgery: CODE(S): Z98.84 - Bariatric surgery status (10) History of excision of mass: CODE(S): Z98.890 - Other specified postprocedural states (11) Former smoker: CODE(S): Z87.891 - Personal history of nicotine dependence PLAN: Plan Patient evaluated at the wound healing center today. Wound care - Right medial leg ulcer Aquacel-Ag topped with ABD dressing daily and as needed after washing ulcer and josephine wound with soap and water. He wears an DESMOND wraps for compression. We ordered Farrow wraps for him, which he states he has not received yet. A wound culture was obtained 03/27/23 positive Proteus mirabilis, Staphylococcus aureus and he completed Bactrim. Wound culture obtained on 01/22/24 positive for Proteus mirabilis and Anaerobes. He was treated with Bactrim and Flagyl. Stressed importance of completing antibiotics. Now that he has had his vascular studies, he saw Dr. Herrera who agrees with compression and lymphedema pumps. Ordered lymphedema compression pumps to use at home to help control his lymphedema/edema. He states that he finally decided to use his compression pumps and they do not fit his legs. He still has not gotten through to the company about this. Prealbumin 21.9 on 10/06/22. Encouraged increase in protein intake to help with wound healing. Follow up 2 weeks.
--- NOTE | 2024-03-13 10:17 | WC ---
PHOTO RIGHT MEDIAL THIGH
== END 2024-03-10 23:59 | disposition home or self-care (01) ==
LOC: WC 14:30
PROVIDERS: Referring Provider Internal Medicine; Visit Provider Nurse Practitioner Family
DX: L97.112 Non-pressure chronic ulcer of right thigh with fat layer exposed (principal); E66.01 Morbid (severe) obesity due to excess calories; Z68.43 Body mass index [BMI] 50.0-59.9, adult; M79.3 Panniculitis, unspecified; I89.0 Lymphedema, not elsewhere classified; Z98.84 Bariatric surgery status; L30.4 Erythema intertrigo; Z87.891 Personal history of nicotine dependence; L98.7 Excessive and redundant skin and subcutaneous tissue
CPT/HCPCS: 11042; 11045

== ENCOUNTER → 2024-04-03 | Outpatient (CLI) | payer MEDICAID, SELFPAY ==
[2024-04-03 12:54] LABS: Absolute Neutrophil Count 3.9 X10^3/uL (2.0-7.7); Basophil# 0.03 X10^3/uL; Basophil% 0.5 % (0-1); Eosinophil# 0.11 X10^3/uL; Eosinophils% 1.9 % (0-5); Hematocrit 38.3 % (40-54); Hemoglobin 12.4 g/dL (13.0-16.5); Lymphocyte % 19.4 % (19-41); Mean Corp Hgb Conc 32.4 g/dL (32-36); Mean Corpuscular Hgb 24.3 pg (27.0-32.0); Mean Corpuscular Volume 75.1 fL (80-94); Mean Platelet Vol. 9.5 fl (6.2-12.0); Monocyte% 8.8 % (0-10); NRBC Flagged by Analyzer 0 % (0-5); Neutrophil # 3.91 X10^3/uL (2.7-7.7); Platelet Count 216 K/mm3 (150-450); RBC Distribution Width CV 17.9 % (11.6-14.6); RBC Distribution Width SD 47.6 fl (35.1-43.9); White Blood Count 5.7 K/mm3 (4.4-11.0)
[2024-04-03 13:03] LABS: Vitamin B12 349 pg/mL (211-911); Vitamin D,25 Hydroxy 28.2 ng/mL
[2024-04-03 13:18] LABS: ALB/GLOB Ratio 0.9 RATIO (0.9-2.4); AST(SGOT) 16 U/L (15-37); Alanine Aminotransfer ALT/SGPT 26 U/L (16-61); Albumin, Serum 3.6 g/dL (3.2-5.0); Alkaline Phosphatase 83 U/L (45-117); Anion Gap 7 (5-15); BUN 17 mg/dL (7-18); BUN/Creat Ratio 15.7 RATIO (10-20); Calcium,Total 9.1 mg/dL (8.5-10.1); Chloride 107 mmol/L (98-107); Cholesterol 204 mg/dL (200); Creatinine, Serum 1.08 mg/dL (0.70-1.30); EST Glomerular Filtration Rate 77 mL/min (>60); Est Glom Filt Rate - Afr Amer 93 mL/min (>60); Globulin 3.9 g/dL (2.2-4.2); Glucose 97 mg/dL (74-106); High Density Lipoprotein 39 mg/dL; Potassium 3.8 mmol/L (3.5-5.1); Protein, Total 7.5 g/dL (6.4-8.2); Sodium Level 140 mmol/L (136-145); Thyroid Stim Hormone (TSH) 0.46 uIU/mL (0.358-3.74); Triglycerides 132 mg/dL; Very Low Density Lipoprotein 26 mg/dL (5-40)
[2024-04-03 13:44] LABS: Hemoglobin A1c 4.9 % (3.8-5.6)
== END | disposition home or self-care (01) ==
PROVIDERS: PCP Nurse Practitioner Family; Visit Provider Nurse Practitioner Family
DX: I10 Essential (primary) hypertension (principal); E56.9 Vitamin deficiency, unspecified; E78.5 Hyperlipidemia, unspecified
CPT/HCPCS: 36415; 80053; 80061; 82306; 82607; 83036; 84443; 85025

== ENCOUNTER 2024-04-13 16:18 | Inpatient (IN) | payer MEDICAID, SELFPAY ==
[2024-04-13] VITALS (10 sets, daily range): BP systolic 110–137; BP diastolic 49–64; PULSE 90–108; RESP 18–31; TEMP 36.6–39.4; O2SAT 88–96; BMI 53.8; BMI 52.5
--- NOTE | 2024-04-13 16:32 | EKG12_ITS ---
Test Reason : CP Blood Pressure : / mmHG Vent. Rate : 107 BPM Atrial Rate : 107 BPM P-R Int : 242 ms QRS Dur : 106 ms QT Int : 340 ms P-R-T Axes : 036 031 029 degrees QTc Int : 453 ms Sinus tachycardia with 1st degree A-V block Incomplete right bundle branch block Borderline ECG Confirmed by Topher Marrero ([id number]), editor department VIRAL DUENAS ([id number]) on 04/15/2024 2:19:42 PM Referred By: JACQUES/DEMI Confirmed By:Topher Marrero
--- NOTE | 2024-04-13 16:32 | CT_ITS ---
STUDY: CTA CHEST REASON FOR EXAM: Male, 49 years old. right pleuritic pain RADIATION DOSAGE (If Supplied By Facility): CTDIvol = ( 15.04 ) mGy, DLP = ( 569.54 ) mGycm TECHNIQUE: The examination was performed with the intravenous administration of IV 100mL Isovue-370. Post-processing of the angiographic images was performed, with multiplanar reformation and 3D reconstruction. Individualized dose optimization techniques were used for this CT. The protocol utilizes one or more of the following dose reduction techniques: automated exposure control, adjustment of mA and/or kV according to patient size,and/or use of iterative reconstruction technique. COMPARISON: Chest x-ray June 02, 2019. FINDINGS: Normal enhancement of the main pulmonary artery and right and left pulmonary arteries. There is limited enhancement of the bilateral peripheral pulmonary arteries. There is no demonstrated major central pulmonary embolism. Smaller peripheral emboli cannot be excluded. Normal thoracic aorta and visualized great vessels. There is no demonstrated aortic dissection. Cardiomegaly and calcific coronary artery disease. Normal mediastinum. Normal hilar regions. Normal visualized trachea and bronchi. The lungs are well expanded. Bibasilar subsegmental atelectasis. Normal pleura. Normal chest wall structures. Normal osseous structures. Normal visualized upper abdomen. CT/CTA Chest W/WO Contrast IMPRESSION: No acute disease. Coronary artery disease and cardiomegaly. No major central pulmonary emboli but smaller emboli cannot be excluded due to technique. Electronically Signed: Jay Schwartz MD at 18:32 EDT ,
--- NOTE | 2024-04-13 16:33 | ED.VIS.CHEST ---
HPI History of Present Illness Chief Complaint: Chest Pain Detail of Chief Complaint: Chest pain Informant: patient Narrative Narrative: Patient presents to the emergency department with complaint of chest pain that started approximately 3:25 PM today. Patient states that he had taken out the dog for a walk and about half an hour later developed sudden onset of right-sided chest pain that was sharp and dull at times pressure-like. He developed some chills and was nauseated and vomited. Patient states he felt similarly last time he had a blood clot in his lung. He denies recent travel or surgery. He is currently not anticoagulated. Does have history of CHF and history of COPD. Patient denies any recent illness leading up to today however his temperature on arrival was 100.4. [facility] Medical History Abdominal panniculus Acute postoperative anemia due to expected blood loss Allergic rhinitis Anxiety and depression 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 Brain fog Cardiology follow-up encounter Cellulitis Chronic acquired lymphedema Chronic diastolic heart failure Constipation COPD (chronic obstructive pulmonary disease) Edema of both lower extremities Emphysema of lung Essential (primary) hypertension Excessive and redundant skin and subcutaneous tissue Excessive body weight loss Former tobacco use Hemangioma of skin and subcutaneous tissue Hyperlipidemia Incomplete right bundle branch block Intertrigo Morbid obesity Nonhealing ulcer of left lower extremity with fat layer exposed Obstructive sleep apnea Open wound of left thigh CRISTINO (obstructive sleep apnea) CRISTINO (obstructive sleep apnea) Osteoarthritis Panniculitis Peripheral vascular disease Pulmonary embolism Ventral hernia Home Medications ?Medication ?Instructions ?Recorded ?Last Taken ?Type acetaminophen 325 mg tablet 650 mg (2 x 325 mg) PO Q6H PRN PRN 06/04/19 10/04/22 Rx Non-cardiac pain (mod-severe) calcium carbonate 500 mg PO DAILY@0800 07/23/19 10/04/22 History cholecalciferol (vitamin D3) 50 2,000 unit PO DAILY 07/23/19 10/04/22 History mcg (2,000 unit) capsule multivitamin,[id number] 1 tab PO DAILY 04/29/20 10/04/22 History (Complete Multivitamin tablet) hydrocortisone 1 % lotion 1 applic topical BID PRN skin 04/23/21 10/04/22 Rx (Cortisone (hydrocortisone)) irritation #120 mL hydrocortisone 2.5 % topical cream 1 applic topical BID PRN rash #454 05/27/21 10/04/22 Rx grams lisinopril 10 mg tablet 10 mg PO DAILY blood pressure #90 08/23/21 10/04/22 Rx tabs nystatin 100,000 unit/gram topical 1 applic topical BID #1 BOTTLE 10/10/22 Unknown Rx powder atorvastatin 40 mg tablet 40 mg PO QHS cholesterol lowering 01/27/23 Unknown Rx #90 tabs betamethasone dipropionate 0.05 % 1 applic topical DAILY PRN skin 01/27/23 Unknown Rx topical cream irritation #45 grams fluticasone propionate 50 2 spray intranasal DAILY PRN 01/27/23 Unknown Rx mcg/actuation nasal Allergies #54.6 mL spray,suspension ketoconazole 2 % shampoo 1 applic topical 2XW 4 weeks #120 01/27/23 Unknown Rx mL quetiapine 25 mg tablet (Seroquel) 25 mg PO QHS #90 tabs 01/27/23 Unknown Rx sertraline 50 mg tablet 50 mg PO DAILY #90 tabs 01/27/23 Unknown Rx sildenafil 25 mg tablet 25 mg PO DAILY PRN sexual activity 01/27/23 Unknown Rx #30 tabs furosemide 40 mg tablet See Rx Instructions .Route 04/04/23 Unknown Rx .COMPLEX #90 tabs omeprazole 20 mg capsule,delayed See Rx Instructions .Route 04/04/23 Unknown Rx release .COMPLEX #90 caps Allergy/AdvReac Type Severity Reaction Status Date / Time Penicillins Allergy Rxn as Verified 07/13/23 14:54 child, unknown Family History Father Myocardial infarction Hypertension Heart disease Arthritis Cancer Leukemia Surgical History History of bariatric surgery History of bariatric surgery History of corrected cleft lip and palate History of excision of mass History of open reduction and internal fixation (ORIF) procedure History of tonsillectomy Social History Smoking Status: Current every day smoker tobacco type: smokeless tobacco how long ago did patient quit smokin years ago alcohol intake: never substance use type: does not use caffeine: No ROS ROS ED Review of Systems ROS Unobtainable: other Constitutional Constitutional ED: Reports lethargy; Denies chills, fever(s), sweats or weight loss Eyes Eyes: Denies blurry vision, change in vision or diplopia ENT ENT ED: Denies rhinorrhea or sore throat Cardiovascular Cardiovascular: Reports chest pain and racing heartbeat; Denies orthopnea Respiratory/Chest Respiratory/Chest: Denies cough, dyspnea, dyspnea on exertion, orthopnea or sputum Gastrointestinal Gastrointestinal: Denies abdominal pain, diarrhea, nausea or vomiting Genitourinary Genitourinary ED: Denies dysuria, hematuria or urinary frequency Musculoskeletal Musculoskeletal: Denies arthralgias, back pain, myalgias or neck pain Integumentary Denies abscess, Abrasions or rash Neurologic Neurologic: Denies headache(s) or weakness Psychiatric Psychiatric: Denies anxiety, depression or suicidal thoughts Endocrine Endocrinology: Denies polydipsia, polyphagia or polyuria Hematologic/Lymphatic Hematologic/Lymphatic: Denies easy bleeding, easy bruising or lymphadenopathy Allergic/Immunologic Allergic/Immunologic ED: Denies mouth swelling, tongue swelling or urticaria EXAM Physical Exam Const Vital Signs: 04/13/24 16:20 04/13/24 16:26 04/13/24 16:26 Temperature 100.4 F H Temperature Source Oral Pulse Rate 108 H Respiratory Rate 18 Blood Pressure 137/64 H Blood Pressure Mean 88 Pulse Ox 93 88 92 Oxygen Delivery Method Room Air Room Air Nasal Cannula Oxygen Flow Rate (L/min) 3 04/13/24 16:32 04/13/24 17:19 04/13/24 17:22 Temperature 102.9 F H Temperature Source Oral Pulse Rate 103 H 106 H Respiratory Rate 26 H 26 H Blood Pressure 110/49 L 110/49 L Blood Pressure Mean 69 69 Pulse Ox 93 92 92 Oxygen Delivery Method Nasal Cannula Nasal Cannula Nasal Cannula Oxygen Flow Rate (L/min) 3 3 04/13/24 18:00 04/13/24 19:00 Temperature 102.8 F H 101.1 F H Temperature Source Oral Oral Pulse Rate 95 98 Respiratory Rate 28 H 31 H Blood Pressure 111/53 L 114/49 L Blood Pressure Mean 72 70 Pulse Ox 95 96 Oxygen Delivery Method Nasal Cannula Room Air Oxygen Flow Rate (L/min) 2 Positive well nourished and well developed General Appearance ED: well developed and NAD HEENT Reports TM's clear and moist mucous membranes normocephalic and atraumatic; Negative for trauma or tenderness Tympanic Membrane ED: Yes TM's clear Eyes PERRL and EOMs intact bilaterally General Eye ED: Negative for pale conjunctiva or scleral icterus Neck no lymphadenopathy, supple and no JVD General: Negative for tenderness Chest Wall inspection of chest normal and palpation of chest normal Chest: Negative for tenderness Resp normal respiratory effort and clear to auscultation bilaterally Effort and Inspection: Negative for respiratory distress or pain with movement Auscultation: Negative for rhonchi, wheezes or diminished lung sounds Cardio regular rhythm, S1 normal heart sound, S2 normal heart sound and no murmurs; Negative for regular rate Rate: tachycardic Peripheral Pulses: pulses 2+ throughout GI normal to inspection, nondistended, normoactive bowel sounds, soft to palpation, non-tender, non-distended and no masses Back/Spine no CVA tenderness and no thoracic nor lumbar tenderness Extremity normal to inspection General Extremety ED: Negative for edema General Extremity: Negative for edema Neuro oriented x3, CN's II-XII intact bilaterally, no sensory deficits noted and gait normal Sensorium / Orientation: awake, alert, oriented to person, oriented to place and oriented to time Motor Exam: strength 5/5 throughout and strength abnormal Psych mental status grossly normal Skin no rashes or lesions noted and no wounds MDM MDM MDM Narrative Medical decision making narrative: Patient presents with chills and sudden onset of right-sided chest pain that he thought might be related to a PE as this is how he felt when he had his last blood clot years ago. He is currently not anticoagulated. He denied any rashes or wounds to me. He was noted to be febrile on arrival. IV line established. CBC with differential obtained showed a white count of 9.7 with hemoglobin 12.8 and platelet count of 246. Chemistries unremarkable. Lactate normal at 1.1. Troponin was normal at 7. Delta troponin was normal at 15. Urinalysis was normal. CTA of the chest showed no evidence of PE. COVID flu and RSV testing was negative. Urinalysis was normal. Patient was hypoxic in the department and was placed initially on 2 L nasal cannula O2. On repeat evaluation again I asked about rashes and he had tights on that we then removed and the states that he does have a chronic wound on his right upper thigh for which she sees the wound center for. He has not had any issues with it. On completely disrobing the patient is noted that he does have a wound to the right thigh with foul odor and surrounding cellulitic changes. At this point I suspect this is the source of the infection. Patient continues to be tachypneic and hypoxemic. I did order blood cultures and started patient on clindamycin given that he is pen allergic. Will discuss case with hospitalist to evaluate patient for admission. I also ordered wound culture. Lab Data Attestation: I reviewed the patient's lab results. Labs: Laboratory Results - last 24 hr 04/13/24 04/13/24 04/13/24 16:46 18:42 18:50 WBC 9.7 RBC 5.13 Hgb 12.8 L Hct 38.6 L MCV 75.2 L MCH 25.0 L MCHC 33.2 RDW Std Deviation 46.8 H RDW Coeff of Alee 17.3 H Plt Count 246 MPV 9.5 Immature Gran % (Auto) 0.300 Neut % (Auto) 89.9 H Lymph % (Auto) 5.1 L [place] % (Auto) 3.9 Eos % (Auto) 0.7 Baso % (Auto) 0.1 Absolute Neuts (auto) 8.7 H Absolute Lymphs (auto) 0.49 L Nucleated RBC % 0 Differential Comment SEE COMMENT Platelet Estimate ADEQUATE RBC Morphology N CHROM Anisocytosis 1+ Microcytosis 1+ Sodium 141 Potassium 4.0 Chloride 108 H Carbon Dioxide 27.0 Anion Gap 6 BUN 18 Creatinine 1.19 Estim Creat Clear Calc 146.47 Est GFR (MDRD) Af Amer 83 Est GFR (MDRD) Non-Af 69 BUN/Creatinine Ratio 15.1 Glucose 113 H Lactic Acid 1.1 Calcium 8.7 Troponin I High Sens 7 15 Urine Color Urine Clarity Urine pH Ur Specific [place] Urine Protein Urine Glucose (UA) Urine Ketones Urine Occult Blood Urine Nitrite Urine Bilirubin Urine Urobilinogen Ur Leukocyte Esterase Urine RBC Urine WBC Ur Squamous Epith Cells Urine Bacteria Urine Mucus 04/13/24 19:00 WBC RBC Hgb Hct MCV MCH MCHC RDW Std Deviation RDW Coeff of Alee Plt Count MPV Immature Gran % (Auto) Neut % (Auto) Lymph % (Auto) [place] % (Auto) Eos % (Auto) Baso % (Auto) Absolute Neuts (auto) Absolute Lymphs (auto) Nucleated RBC % Differential Comment Platelet Estimate RBC Morphology Anisocytosis Microcytosis Sodium Potassium Chloride Carbon Dioxide Anion Gap BUN Creatinine Estim Creat Clear Calc Est GFR (MDRD) Af Amer Est GFR (MDRD) Non-Af BUN/Creatinine Ratio Glucose Lactic Acid Calcium Troponin I High Sens Urine Color Yellow Urine Clarity Sl. Cloudy Urine pH 5.0 Ur Specific [place] 1.020 Urine Protein 15 H Urine Glucose (UA) Normal Urine Ketones Negative Urine Occult Blood Negative Urine Nitrite Negative Urine Bilirubin Negative Urine Urobilinogen 1 H Ur Leukocyte Esterase 25 H Urine RBC 0 SEEN Urine WBC 0 SEEN Ur Squamous Epith Cells 0 SEEN Urine Bacteria 0 SEEN Urine Mucus 0 SEEN Radiography Diagnostic Testing: Clinical Impression(s) from Imaging Studies Chest CTA 04/13/24 16:32 IMPRESSION: No acute disease. Coronary artery disease and cardiomegaly. No major central pulmonary emboli but smaller emboli cannot be excluded due to technique. Electronically Signed: Jay Schwartz MD at 18:32 EDT Reading Location ID and State: [facility] / [place] Tel , Service support , EKG Initial EKG: Attestation: I personally reviewed and interpreted this EKG as follows: Comments: Sinus tachycardia with ventricular rate of 107 bpm with first-degree AV block and incomplete right bundle branch block Discharge Plan Dx/Rx/DC Orders Clinical Impression: Chest pain, Hypoxemia, Cellulitis of right leg Disposition Disposition: Acute Care [facility]
[2024-04-13] MEDS: Aspirin 81 MG TAB.CHEW 324 MG PO (16:42)
[2024-04-13] MEDS: Ondansetron 4 MG/2 ML Vial IV (16:42)
[2024-04-13] MEDS: Morphine 4 MG/ML Syringe IV (16:43)
[2024-04-13] MEDS: 0.9% Normal Saline (1000mL) 1,000 ML 150 ML IV (16:45)
[2024-04-13 17:05] LABS: Absolute Lymphocyte Count 0.49 X10^3/uL (0.83-4.51); Absolute Neutrophil Count 8.7 X10^3/uL (2.0-7.7); Basophil# 0.01 X10^3/uL; Basophil% 0.1 % (0-1); Eosinophil# 0.07 X10^3/uL; Eosinophils% 0.7 % (0-5); Hematocrit 38.6 % (40-54); Hemoglobin 12.8 g/dL (13.0-16.5); Lymphocyte # 0.49 X10^3/ul (0.83-4.51); Lymphocyte % 5.1 % (19-41); Mean Corp Hgb Conc 33.2 g/dL (32-36); Mean Corpuscular Volume 75.2 fL (80-94); Mean Platelet Vol. 9.5 fl (6.2-12.0); Monocyte# 0.38 X10^3/uL; Monocyte% 3.9 % (0-10); NRBC Flagged by Analyzer 0 % (0-5); Neutrophil # 8.67 X10^3/uL (2.7-7.7); Neutrophil % 89.9 % (47-70); POSITIVE DIFFERENTIAL YES; Platelet Count 246 K/mm3 (150-450); RBC Distribution Width CV 17.3 % (11.6-14.6); RBC Distribution Width SD 46.8 fl (35.1-43.9); Red Blood Count 5.13 M/mm3 (4.6-6.2); White Blood Count 9.7 K/mm3 (4.4-11.0)
[2024-04-13 17:06] LABS: Differential Indicated SCAN CRITERIA MET
[2024-04-13 17:24] LABS: Anion Gap 6 (5-15); BUN 18 mg/dL (7-18); BUN/Creat Ratio 15.1 RATIO (10-20); Calcium,Total 8.7 mg/dL (8.5-10.1); Chloride 108 mmol/L (98-107); Creatinine, Serum 1.19 mg/dL (0.70-1.30); EST Glomerular Filtration Rate 69 mL/min (>60); Est Glom Filt Rate - Afr Amer 83 mL/min (>60); Estimated Creatinine Clearance 146.47 ml/min; Glucose 113 mg/dL (74-106); Sodium Level 141 mmol/L (136-145); Troponin-I HS (w/2H Reflex) 7 pg/mL (3.0-78.0)
[2024-04-13 17:36] LABS: Platelet Estimate ADEQUATE (ADEQ); Red Cell Morphology N CHROM NORMAL (NORM C&C)
[2024-04-13 17:37] LABS: Anisocytosis 1+; Microcytosis 1+
[2024-04-13] MEDS: Acetaminophen 500 MG Tablet 1000 MG PO (18:46)
[2024-04-13 19:00] LABS: Reflex Troponin-HS? (from REC) Y
[2024-04-13 19:08] LABS: Bacteria 0 SEEN /hpf (None Seen); Mucous, Urine 0 SEEN /hpf (<or=2+); Red Blood Cells-Urine 0 SEEN /hpf (0-5); Squamous Epithelial Cells - UA 0 SEEN /hpf (0-5); White Blood Cells 0 SEEN /hpf (0-5)
[2024-04-13 19:12] LABS: Color, Urine Yellow (Yellow); Glucose, Dipstick Normal (Normal); Ketone-Dipstick Negative (Negative); Leukocyte Esterase-Dipstick 25 /ul (Negative); Nitrite-Dipstick Negative (Negative); Occult Blood-Urine Negative /ul (Negative); Protein-Dipstick 15 mg/dl (Negative); Urine Bilirubin Dipstick Negative (Negative); Urine Clarity Sl. Cloudy (Clear); Urine Urobilinogen 1 mg/dl (Normal)
[2024-04-13 19:18] LABS: Lactic Acid 1.1 mmol/L (0.4-1.9)
[2024-04-13 19:22] LABS: Troponin-I HS 15 pg/mL (3.0-78.0)
[2024-04-13] MEDS: Clindamycin 900 MG/50 ML BAG 75 MG IV (20:02)
--- NOTE | 2024-04-13 21:44 | HP.PCM.HOS_ITS ---
HPI - General General Date of Admission: 04/13/24 Date of Service: 04/13/24 Chief Complaint: chest pain HPI Narrative AYLA JACKSON, is a 49 M who presents with complaints of right-sided chest pain. He stated that it felt similar to when he had a history of pulmonary emboli in the past. He presented to the emergency room, underwent a CT of the chest that was negative. Troponins are negative. Patient started developing fever while he was there and he endorsed that he had a right leg wound after a lipoma resection that has not properly healed. Surgery was about a year ago. His leg was notably red. Patient received clindamycin in the emergency room. With his ongoing infection, the hospital service was contacted for admission. [facility] Medical History Constipation Cardiology follow-up encounter Brain fog CRISTINO (obstructive sleep apnea) Allergic rhinitis Ventral hernia Edema of both lower extremities Open wound of left thigh Acute postoperative anemia due to expected blood loss Excessive body weight loss Excessive and redundant skin and subcutaneous tissue Intertrigo Panniculitis Abdominal panniculus Morbid obesity Former tobacco use COPD (chronic obstructive pulmonary disease) CRISTINO (obstructive sleep apnea) Hemangioma of skin and subcutaneous tissue 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 Hyperlipidemia Incomplete right bundle branch block Chronic acquired lymphedema Nonhealing ulcer of left lower extremity with fat layer exposed Cellulitis Pulmonary embolism Chronic diastolic heart failure Emphysema of lung Peripheral vascular disease Obstructive sleep apnea Osteoarthritis Anxiety and depression Essential (primary) hypertension Home Medications ?Medication ?Instructions ?Recorded ?Last Taken ?Type acetaminophen 325 mg tablet 650 mg (2 x 325 mg) PO Q6H PRN PRN 06/04/19 10/04/22 Rx Non-cardiac pain (mod-severe) multivitamin,[id number] 1 tab PO DAILY 04/29/20 10/04/22 History (Complete Multivitamin tablet) lisinopril 10 mg tablet 10 mg PO DAILY blood pressure #90 08/23/21 10/04/22 Rx tabs atorvastatin 40 mg tablet 40 mg PO QHS cholesterol lowering 01/27/23 Unknown Rx #90 tabs furosemide 40 mg tablet See Rx Instructions .Route 04/04/23 Unknown Rx .COMPLEX #90 tabs omeprazole 20 mg capsule,delayed See Rx Instructions .Route 04/04/23 Unknown Rx release .COMPLEX #90 caps Allergy/AdvReac Type Severity Reaction Status Date / Time Penicillins Allergy Rxn as Verified 07/13/23 14:54 child, unknown Family History Father Myocardial infarction Hypertension Heart disease Arthritis Cancer Leukemia Surgical History History of excision of mass History of bariatric surgery History of tonsillectomy History of open reduction and internal fixation (ORIF) procedure History of corrected cleft lip and palate History of bariatric surgery Social History Smoking Status: Current every day smoker tobacco type: smokeless tobacco how long ago did patient quit smokin years ago alcohol intake: never substance use type: does not use caffeine: No ROS ROS Narrative No further chest pain. All review of systems were negative except as mentioned above in the history of present illness and the other review of systems. Vital Signs Vital Signs Vital Signs: 04/13/24 16:20 04/13/24 16:26 04/13/24 16:26 Temperature 38.0 C H Temperature Source Oral Pulse Rate 108 H Respiratory Rate 18 Blood Pressure 137/64 H Blood Pressure Mean 88 Pulse Ox 93 88 92 Oxygen Delivery Method Room Air Room Air Nasal Cannula Oxygen Flow Rate (L/min) 3 04/13/24 16:32 04/13/24 17:19 04/13/24 17:22 Temperature 39.4 C H Temperature Source Oral Pulse Rate 103 H 106 H Respiratory Rate 26 H 26 H Blood Pressure 110/49 L 110/49 L Blood Pressure Mean 69 69 Pulse Ox 93 92 92 Oxygen Delivery Method Nasal Cannula Nasal Cannula Nasal Cannula Oxygen Flow Rate (L/min) 3 3 04/13/24 18:00 04/13/24 19:00 04/13/24 20:00 Temperature 39.3 C H 38.4 C H 37.6 C H Temperature Source Oral Oral Oral Pulse Rate 95 98 92 Respiratory Rate 28 H 31 H 24 H Blood Pressure 111/53 L 114/49 L 110/49 L Blood Pressure Mean 72 70 69 Pulse Ox 95 96 93 Oxygen Delivery Method Nasal Cannula Room Air Room Air Oxygen Flow Rate (L/min) 2 04/13/24 20:05 Temperature 37.6 C H Temperature Source Pulse Rate 90 Respiratory Rate 24 H Blood Pressure 110/49 L Blood Pressure Mean 69 Pulse Ox 93 Oxygen Delivery Method Oxygen Flow Rate (L/min) Weight Weight: 211.5 kg Body Mass Index (BMI) 53.8 Physical Exam Narrative - Physical Exam General: Alert, Oriented x3, Cooperative. Obese. Appears older than stated age HEENT: Atraumatic, PERRLA, EOMI, Normocephalic Oral: Moist Mucosa, No Gingival or Mucosal Lesions/ Ulcerations Neck: Supple, No JVD, Negative Carotid Bruits Lungs: Clear to auscultation, Normal air movement Cardiovascular: Regular rate, Normal S1, Normal S2, No murmurs Abdomen: Bowel Sounds Present, Soft, Non Tender, Non-Distended, No Hepato- splenomegaly Extremities: Patient has surgical changes of his right medial thigh but also marked erythema extending from and around his wound up until his inguinal region on the right. Skin: Erythema on medial right thigh. Musculoskeletal: No Tenderness to Palpation of Joints or Extremities Neurological: Neuro grossly intact Psych/Mental Status: Normal Affect, Appropriate Results Lab / Micro Data Attestation: I reviewed the patient's lab results. 04/13/24 16:46 04/13/24 16:46 Labs: Laboratory Results - last 24 hr 04/13/24 16:46: WBC 9.7, RBC 5.13, Hgb 12.8 L, Hct 38.6 L, MCV 75.2 L, MCH 25.0 L, MCHC 33.2, RDW Std Deviation 46.8 H, RDW Coeff of Alee 17.3 H, Plt Count 246, MPV 9.5, Immature Gran % (Auto) 0.300, Neut % (Auto) 89.9 H, Lymph % (Auto) 5.1 L, [place] % (Auto) 3.9, Eos % (Auto) 0.7, Baso % (Auto) 0.1, Absolute Neuts (auto) 8.7 H, Absolute Lymphs (auto) 0.49 L, Nucleated RBC % 0, Differential Comment SEE COMMENT, Platelet Estimate ADEQUATE, RBC Morphology N CHROM, Anisocytosis 1+, Microcytosis 1+, Sodium 141, Potassium 4.0, Chloride 108 H, Carbon Dioxide 27.0, Anion Gap 6, BUN 18, Creatinine 1.19, Estim Creat Clear Calc 146.47, Est GFR (MDRD) Af Amer 83, Est GFR (MDRD) Non-Af 69, BUN/Creatinine Ratio 15.1, G lucose 113 H, Calcium 8.7, Troponin I High Sens 7 04/13/24 18:42: Lactic Acid 1.1 04/13/24 18:50: Troponin I High Sens 15 04/13/24 19:00: Urine Color Yellow, Urine Clarity Sl. Cloudy, Urine pH 5.0, Ur Specific [place] 1.020, Urine Protein 15 H, Urine Glucose (UA) Normal, Urine Ketones Negative, Urine Occult Blood Negative, Urine Nitrite Negative, Urine Bilirubin Negative, Urine Urobilinogen 1 H, Ur Leukocyte Esterase 25 H, Urine RBC 0 SEEN, Urine WBC 0 SEEN, Ur Squamous Epith Cells 0 SEEN, Urine Bacteria 0 SEEN, Urine Mucus 0 SEEN Micro: Microbiology 04/13/24 17:57 Mucosa - Nasopharyngeal SARS-CoV-2, Influenza & RSV (PCR) - Final EKG Initial EKG: Attestation: I personally reviewed and interpreted this EKG as follows: Prior EKG tracings: available for review EKG Rhythm Intrepretation: Sinus Rhythm (Incomplete right bundle branch block) Imaging Radiology Impression Chest CTA 04/13/24 16:32 IMPRESSION: No acute disease. Coronary artery disease and cardiomegaly. No major central pulmonary emboli but smaller emboli cannot be excluded due to technique. Electronically Signed: Jay Schwartz MD at 18:32 EDT Reading Location ID and State: [facility] / [place] Tel , Service support , Assessment & Plan Assessment/Plan (1) Cellulitis of right leg: PLAN: Right leg cellulitis secondary to chronic wound on right medial thigh. Patient had wound that was postsurgical after lipoma resection has not completely filled out. Plan: Continue with antibiotics. Patient received clindamycin emergency room. He will be on antibiotics with vancomycin and cefazolin (patient has a penicillin allergy). Check CT of the legs he was any developing abscess. Wound care management. Culture of the wound. (2) Chest pain: PLAN: Atypical and right-sided. CTA, troponins, EKG were negative for any acute process. Likely precipitated by his underlying infection. No additional workup at this time. (3) Hypoxemia: PLAN: Transient. Currently on room air. Likely due to obesity hypoventilation and likely untreated and probably undiagnosed sleep apnea. Patient benefit from weight loss obviously would also involve pulmonary to have a CRISTINO evaluation. PLAN: Plan Chronic conditions * Morbid obesity class III: Complicates care and recovery * Chronic right leg wound secondary to lipoma excision: Wound care. * Hypertension: Continue lisinopril * Hyperlipidemia: Continue statin VTE prophylaxis with enoxaparin CODE STATUS: Full. Charges/Coding Visit Charges Inpatient E&M: 31980 Init Hosp L2
[2024-04-14] VITALS (8 sets, daily range): BP systolic 114–131; BP diastolic 66–89; PULSE 63–85; RESP 16–18; TEMP 37.1–37.6; O2SAT 94–99
[2024-04-14] MEDS: Cefazolin 2 GM in 0.9% Normal Saline (100mL Bag) 100 ML IV ×2 (00:31→06:16)
[2024-04-14] MEDS: 0.9% Normal Saline (1000mL) 1,000 ML 150 ML IV ×4 (00:31→19:41)
[2024-04-14] MEDS: 0.9% Saline Lock 10 ML Syringe IV (00:32)
[2024-04-14] MEDS: Atorvastatin Calcium 40 MG Tablet PO ×2 (00:35→22:59)
[2024-04-14] MEDS: Vancomycin HCl 2,000 MG in 0.9% Normal Saline (500mL Bag) 500 ML 250 MG IV (01:43)
--- NOTE | 2024-04-14 02:00 | PCM.RX.CS ---
Consult Antibiotic Management Pharmacy has been consulted to manage selected antibiotic: Vancomycin Type of Intervention Type of Consult: New start Suspected Infection Suspected Infection: Skin/Soft tissue Labs Labs: Sodium 141 mmol/L (136-145) 04/13/24 16:46 Potassium 4.0 mmol/L (3.5-5.1) 04/13/24 16:46 Chloride 108 mmol/L (98-107) H 04/13/24 16:46 Carbon Dioxide 27.0 mmol/L (21.0-32.0) 04/13/24 16:46 Anion Gap 6 (5-15) 04/13/24 16:46 BUN 18 mg/dL (7-18) 04/13/24 16:46 Creatinine 1.19 mg/dL (0.70-1.30) 04/13/24 16:46 Est GFR (MDRD) Af Amer 83 mL/min (>60) 04/13/24 16:46 Est GFR (MDRD) Non-Af 69 mL/min (>60) 04/13/24 16:46 BUN/Creatinine Ratio 15.1 RATIO (10-20) 04/13/24 16:46 Glucose 113 mg/dL (74-106) H 04/13/24 16:46 Microbiology Microbiology: Microbiology 04/13/24 17:57 Mucosa - Nasopharyngeal SARS-CoV-2, Influenza & RSV (PCR) - Final Dosing Weight Weight used for dosin kg Estimated Creatinine Clearance Estimated Creatinine Clearance: 146 Goal Trough Goal Trough: 10-15 mcg/mL Pharmacy Plan for Drug Dosing Pharmacy Plan for Drug Dosing: Pharmacy Service will continue to monitor and adjust dosing as required. Follow-Up Labs Follow-Up Labs: Trough: Vancomycin Date/Time Labs Ordered Labs to be done on [date and time ordered]: 04/15/24 @1300
[2024-04-14 06:52] LABS: Absolute Lymphocyte Count 0.35 X10^3/uL (0.83-4.51); Absolute Neutrophil Count 14.1 X10^3/uL (2.0-7.7); Basophil# 0.04 X10^3/uL; Basophil% 0.3 % (0-1); Hematocrit 36.2 % (40-54); Hemoglobin 11.8 g/dL (13.0-16.5); Lymphocyte # 0.35 X10^3/ul (0.83-4.51); Lymphocyte % 2.4 % (19-41); Mean Corp Hgb Conc 32.6 g/dL (32-36); Mean Corpuscular Hgb 24.8 pg (27.0-32.0); Mean Corpuscular Volume 76.2 fL (80-94); Mean Platelet Vol. 9.8 fl (6.2-12.0); Monocyte# 0.29 X10^3/uL; Monocyte% 1.9 % (0-10); NRBC Flagged by Analyzer 0 % (0-5); Neutrophil # 14.13 X10^3/uL (2.7-7.7); Neutrophil % 94.9 % (47-70); POSITIVE DIFFERENTIAL YES; Platelet Count 209 K/mm3 (150-450); RBC Distribution Width CV 17.5 % (11.6-14.6); RBC Distribution Width SD 47.9 fl (35.1-43.9); Red Blood Count 4.75 M/mm3 (4.6-6.2); White Blood Count 14.9 K/mm3 (4.4-11.0)
[2024-04-14 07:10] LABS: Anion Gap 5 (5-15); BUN 17 mg/dL (7-18); BUN/Creat Ratio 13.6 RATIO (10-20); Calcium,Total 8.2 mg/dL (8.5-10.1); Chloride 107 mmol/L (98-107); Creatinine, Serum 1.25 mg/dL (0.70-1.30); EST Glomerular Filtration Rate 65 mL/min (>60); Est Glom Filt Rate - Afr Amer 79 mL/min (>60); Estimated Creatinine Clearance 137.32 ml/min; Glucose 109 mg/dL (74-106); Potassium 4.1 mmol/L (3.5-5.1); Sodium Level 137 mmol/L (136-145)
--- NOTE | 2024-04-14 07:56 | PN.HOSP_ITS ---
Reason for Visit Reason for Visit: Diagnoses Cellulitis of right lower limb (04/13/24) Chest pain, unspecified (04/13/24) Hypoxemia (04/13/24) Objective Data Objective Data Vital Signs: Vital Signs Temp Pulse Resp BP Pulse Ox O2 Del Method O2 Flow Rate 99.6 F H 85 16 131/72 H 98 Room Air 2 04/14/24 04:25 04/14/24 04:25 04/14/24 04:25 04/14/24 04:25 04/14/24 04:25 04/14/24 04:25 04/13/24 18:00 Oxygen Flow Rate (L/min) 2 Oxygen Delivery Method Room Air Weight: 454 lb 9.491 oz Body Mass Index (BMI) 52.5 Intake & Output: Intake and Output for Last 24 Hours 04/12/24 04/13/24 04/14/24 23:59 23:59 23:59 Intake Total 1050 / 1050 1622.5 / 1622.5 Output Total 700 / 700 Balance 1050 / 550 922.5 / 922.5 Lab / Micro Data 04/14/24 06:04 04/14/24 06:04 Labs: Laboratory Results - last 24 hr 04/13/24 16:46: WBC 9.7, RBC 5.13, Hgb 12.8 L, Hct 38.6 L, MCV 75.2 L, MCH 25.0 L, MCHC 33.2, RDW Std Deviation 46.8 H, RDW Coeff of Alee 17.3 H, Plt Count 246, MPV 9.5, Immature Gran % (Auto) 0.300, Neut % (Auto) 89.9 H, Lymph % (Auto) 5.1 L, [place] % (Auto) 3.9, Eos % (Auto) 0.7, Baso % (Auto) 0.1, Absolute Neuts (auto) 8.7 H, Absolute Lymphs (auto) 0.49 L, Nucleated RBC % 0, Differential Comment SEE COMMENT, Platelet Estimate ADEQUATE, RBC Morphology N CHROM, Anisocytosis 1+, Microcytosis 1+, Sodium 141, Potassium 4.0, Chloride 108 H, Carbon Dioxide 27.0, Anion Gap 6, BUN 18, Creatinine 1.19, Estim Creat Clear Calc 146.47, Est GFR (MDRD) Af Amer 83, Est GFR (MDRD) Non-Af 69, BUN/Creatinine Ratio 15.1, G lucose 113 H, Calcium 8.7, Troponin I High Sens 7 04/13/24 18:42: Lactic Acid 1.1 04/13/24 18:50: Troponin I High Sens 15 04/13/24 19:00: Urine Color Yellow, Urine Clarity Sl. Cloudy, Urine pH 5.0, Ur Specific [place] 1.020, Urine Protein 15 H, Urine Glucose (UA) Normal, Urine Ketones Negative, Urine Occult Blood Negative, Urine Nitrite Negative, Urine Bilirubin Negative, Urine Urobilinogen 1 H, Ur Leukocyte Esterase 25 H, Urine RBC 0 SEEN, Urine WBC 0 SEEN, Ur Squamous Epith Cells 0 SEEN, Urine Bacteria 0 SEEN, Urine Mucus 0 SEEN 04/14/24 06:04: WBC 14.9 H, RBC 4.75, Hgb 11.8 L, Hct 36.2 L, MCV 76.2 L, MCH 24.8 L, MCHC 32.6, RDW Std Deviation 47.9 H, RDW Coeff of Alee 17.5 H, Plt Count 209, MPV 9.8, Immature Gran % (Auto) 0.500, Neut % (Auto) 94.9 H, Lymph % (Auto) 2.4 L, [place] % (Auto) 1.9, Eos % (Auto) 0.0, Baso % (Auto) 0.3, Absolute Neuts (auto) 14.1 H, Absolute Lymphs (auto) 0.35 L, Nucleated RBC % 0, Sodium 137, Potassium 4.1, Chloride 107, Carbon Dioxide 25.0, Anion Gap 5, BUN 17, Creatinine 1.25, Estim Creat Clear Calc 137.32, Est GFR (MDRD) Af Amer 79, Est GFR (MDRD) Non-Af 65, BUN/Creatinine Ratio 13.6, Glucose 109 H, Calcium 8.2 L Micro: Microbiology 04/13/24 17:57 Mucosa - Nasopharyngeal SARS-CoV-2, Influenza & RSV (PCR) - Final Radiography Diagnostic Testing: Radiology Impression Chest CTA 04/13/24 16:32 IMPRESSION: No acute disease. Coronary artery disease and cardiomegaly. No major central pulmonary emboli but smaller emboli cannot be excluded due to technique. Electronically Signed: Jay Schwartz MD at 18:32 EDT , Lower Extremity CT 04/14/24 22:06 IMPRESSION: * Large wound/ulcer medial thigh with skin thickening and subcutaneous fat stranding compatible with cellulitis. * No drainable collection or evidence of abscess formation. * No evidence of necrotizing fasciitis. * No evidence of osteomyelitis. Electronically Signed: Jarvis Terry MD at 1:00 EDT , Physical Exam Narrative Seen and examined. Patient was admitted with right shortness of lightest. Febrile. Patient denies that he has right-sided chest pain although mentioned in the ED note and patient had CTA chest which will be continued. Troponins negative. Denies history of coronary artery disease or [place]. Physical exam General: Alert, Oriented x3, Cooperative. Morbid obesity BMI 52.5 kg/m? HEENT: Atraumatic, PERRLA, EOMI, Normocephalic Oral: No Gingival or Mucosal Lesions/ Ulcerations Neck: Supple, No JVD, Negative Carotid Bruits Chest wall/Lungs: Air entry diminished in bilateral lung bases. No crepitation/rhonchi Cardiovascular: Regular rate, Regular Rhythm, Normal S1, Normal S2, No M/G/R Abdomen: Bowel Sounds Present, Soft, Non Tender, Non-Distended : No dysuria. No renal angle tenderness. No suprapubic tenderness. Extremities: Skin: HealingRedness, tenderness and induration around right medial region. Erythema extending to right inguinal region./granulation wound/ulcer over right medial thigh. Scar tissue present. Lymphocele present distal right medial thigh ulcer Musculoskeletal: Scar tissue in right medial thigh. ROM restricted over knees and hip joints. Neurological: Cranial nerves II-XII grossly intact, DTR 2+/4. No acute focal neurological deficit. Psych/Mental Status: Normal Affect, Appropriate. Assessment & Plan Assessment/Plan (1) Cellulitis of right leg: PLAN: 49-year-old gentleman admitted with fever chills, temperature 100.4 Fahrenheit and sudden onset of right-sided chest pain which was sharp and dull, pressure-like. He was also nauseous and vomited. CT angiogram was done and was negative for PE. History of CHF and COPD Right leg cellulitis secondary to chronic wound on right medial thigh. Patient had wound that was postsurgical after lipoma resection has not completely healed. CT of the leg did not show any collection or abscess. It was evaluated by plastic surgery. Hydrogel dressing. Continue IV antibiotic vancomycin and ceftriaxone. (2) Chest pain: PLAN: Atypical and right-sided. CTA, troponins, EKG were negative for any acute process. Likely precipitated by his underlying infection. No additional workup at this time. (3) Hypoxemia: PLAN: Transient. Currently on room air. Likely due to obesity hypoventilation and likely untreated and probably undiagnosed sleep apnea. Patient benefit from weight loss obviously would also involve pulmonary to have a CRISTINO evaluation. PLAN: Plan Chronic conditions * Morbid obesity class III: Complicates care and recovery * Chronic right leg wound secondary to lipoma excision: Wound care. * Hypertension: Continue lisinopril * Hyperlipidemia: Continue statin VTE prophylaxis with enoxaparin CODE STATUS: Full. Charges/Coding Visit Charges Inpatient E&M: 31972 Subs Hosp L2
--- NOTE | 2024-04-14 09:27 | CON.PCM.SX_ITS ---
Assessment & Plan Assessment/Plan (1) Cellulitis of right leg: PLAN: Plan Homero Jackson II is a 49 yo male with right medial thigh cellulitis and a post-surgical wound on the medial thigh that is healing well/granulating. Continue hydrogel twice daily to the wound bed with a wrap. Plastics will continue to follow Agree with IV antibiotics for cellulitis (no fluid collections on exam or on the CT scan from last night) HPI Consult Data Date of Consult: 04/14/24 HPI Narrative Reason for Consultation: Right medial thigh cellulitis HPI Narrative: HOMERO JACKSON, is a 49 M with morbid obesity, CHF, and COPD who presents for right medial thigh cellulitis and chest pain. He was admitted overnight with fevers (to 103)/chills, N/V. A plastic surgery who was in our group was managing his right medial thigh wound (from excision of excess tissue and management of a lymphocele) and he was most recently seen a the wound care center on 19 February 2024 by our [employer] REPLACER, Kelsey Greene. I was consulted this morning by the medicine team for the wound in the setting of right medial thigh cellulitis that was diagnosed in the ED last night. CT scan demonstrated cellulitis but no fluid collections. Reports that he's been compliant with wound care. [facility] Medical History Constipation Cardiology follow-up encounter Brain fog CRISTINO (obstructive sleep apnea) Allergic rhinitis Ventral hernia Edema of both lower extremities Open wound of left thigh Acute postoperative anemia due to expected blood loss Excessive body weight loss Excessive and redundant skin and subcutaneous tissue Intertrigo Panniculitis Abdominal panniculus Morbid obesity Former tobacco use COPD (chronic obstructive pulmonary disease) CRISTINO (obstructive sleep apnea) Hemangioma of skin and subcutaneous tissue 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 Hyperlipidemia Incomplete right bundle branch block Chronic acquired lymphedema Nonhealing ulcer of left lower extremity with fat layer exposed Cellulitis Pulmonary embolism Chronic diastolic heart failure Emphysema of lung Peripheral vascular disease Obstructive sleep apnea Osteoarthritis Anxiety and depression Essential (primary) hypertension Home Medications ?Medication ?Instructions ?Recorded ?Last Taken ?Type acetaminophen 325 mg tablet 650 mg (2 x 325 mg) PO Q6H PRN PRN 06/04/19 10/04/22 Rx Non-cardiac pain (mod-severe) multivitamin,[id number] 1 tab PO DAILY 04/29/20 10/04/22 History (Complete Multivitamin tablet) lisinopril 10 mg tablet 10 mg PO DAILY blood pressure #90 08/23/21 10/04/22 Rx tabs atorvastatin 40 mg tablet 40 mg PO QHS cholesterol lowering 01/27/23 Unknown Rx #90 tabs furosemide 40 mg tablet See Rx Instructions .Route 04/04/23 Unknown Rx .COMPLEX #90 tabs omeprazole 20 mg capsule,delayed See Rx Instructions .Route 04/04/23 Unknown Rx release .COMPLEX #90 caps Allergy/AdvReac Type Severity Reaction Status Date / Time Penicillins Allergy Rxn as Verified 07/13/23 14:54 child, unknown Family History Father Myocardial infarction Hypertension Heart disease Arthritis Cancer Leukemia Surgical History History of excision of mass History of bariatric surgery History of tonsillectomy History of open reduction and internal fixation (ORIF) procedure History of corrected cleft lip and palate History of bariatric surgery Social History Smoking Status: Current every day smoker tobacco type: smokeless tobacco how long ago did patient quit smokin years ago alcohol intake: never substance use type: does not use caffeine: No Physical Exam Narrative Right medial thigh: Small, granulating wound (7 x 3 cm). No fluid collections. Induration on right medial thigh pannus that is warm and red. TTP in this region Pulses: 2+ dorsalis pedis pulses bilaterally Const oriented x3; Negative for alert, no apparent distress, healthy appearing or well nourished HEENT HEENT Narrative: Scar from unilateral cleft lip Lymph Lymphatic Narrative: lymphedema in the bilateral lower extremities Medical Records Data Attestation: I reviewed the patient's medical records Lab / Micro Data 04/14/24 06:04 04/14/24 06:04 Labs: Laboratory Results - last 24 hr 04/13/24 16:46: WBC 9.7, RBC 5.13, Hgb 12.8 L, Hct 38.6 L, MCV 75.2 L, MCH 25.0 L, MCHC 33.2, RDW Std Deviation 46.8 H, RDW Coeff of Alee 17.3 H, Plt Count 246, MPV 9.5, Immature Gran % (Auto) 0.300, Neut % (Auto) 89.9 H, Lymph % (Auto) 5.1 L, [place] % (Auto) 3.9, Eos % (Auto) 0.7, Baso % (Auto) 0.1, Absolute Neuts (auto) 8.7 H, Absolute Lymphs (auto) 0.49 L, Nucleated RBC % 0, Differential Comment SEE COMMENT, Platelet Estimate ADEQUATE, RBC Morphology N CHROM, Anisocytosis 1+, Microcytosis 1+, Sodium 141, Potassium 4.0, Chloride 108 H, Carbon Dioxide 27.0, Anion Gap 6, BUN 18, Creatinine 1.19, Estim Creat Clear Calc 146.47, Est GFR (MDRD) Af Amer 83, Est GFR (MDRD) Non-Af 69, BUN/Creatinine Ratio 15.1, G lucose 113 H, Calcium 8.7, Troponin I High Sens 7 04/13/24 18:42: Lactic Acid 1.1 04/13/24 18:50: Troponin I High Sens 15 04/13/24 19:00: Urine Color Yellow, Urine Clarity Sl. Cloudy, Urine pH 5.0, Ur Specific [place] 1.020, Urine Protein 15 H, Urine Glucose (UA) Normal, Urine Ketones Negative, Urine Occult Blood Negative, Urine Nitrite Negative, Urine Bilirubin Negative, Urine Urobilinogen 1 H, Ur Leukocyte Esterase 25 H, Urine RBC 0 SEEN, Urine WBC 0 SEEN, Ur Squamous Epith Cells 0 SEEN, Urine Bacteria 0 SEEN, Urine Mucus 0 SEEN 04/14/24 06:04: WBC 14.9 H, RBC 4.75, Hgb 11.8 L, Hct 36.2 L, MCV 76.2 L, MCH 24.8 L, MCHC 32.6, RDW Std Deviation 47.9 H, RDW Coeff of Alee 17.5 H, Plt Count 209, MPV 9.8, Immature Gran % (Auto) 0.500, Neut % (Auto) 94.9 H, Lymph % (Auto) 2.4 L, [place] % (Auto) 1.9, Eos % (Auto) 0.0, Baso % (Auto) 0.3, Absolute Neuts (auto) 14.1 H, Absolute Lymphs (auto) 0.35 L, Nucleated RBC % 0, Sodium 137, Potassium 4.1, Chloride 107, Carbon Dioxide 25.0, Anion Gap 5, BUN 17, Creatinine 1.25, Estim Creat Clear Calc 137.32, Est GFR (MDRD) Af Amer 79, Est GFR (MDRD) Non-Af 65, BUN/Creatinine Ratio 13.6, Glucose 109 H, Calcium 8.2 L Micro: Microbiology 04/13/24 19:50 Skin - Other Wound Culture - Preliminary Gram negative em Staphylococcus species 04/13/24 17:57 Mucosa - Nasopharyngeal SARS-CoV-2, Influenza & RSV (PCR) - Final Imaging Radiology Impression Chest CTA 04/13/24 16:32 IMPRESSION: No acute disease. Coronary artery disease and cardiomegaly. No major central pulmonary emboli but smaller emboli cannot be excluded due to technique. Electronically Signed: Jay Schwartz MD at 18:32 EDT Reading Location ID and State: [address] [place] [address] Tel , Service support , Lower Extremity CT 04/14/24 22:06 IMPRESSION: * Large wound/ulcer medial thigh with skin thickening and subcutaneous fat stranding compatible with cellulitis. * No drainable collection or evidence of abscess formation. * No evidence of necrotizing fasciitis. * No evidence of osteomyelitis. Electronically Signed: Jarvis Terry MD at 1:00 EDT Reading Location ID and State: [address] [place] [address] Tel , Service support , Charges/Coding Visit Charges Office Visits / Consults: 90797 IP Consult L3 (I spent 45 minutes reviewing PMHx, examining the patient personally, and reviewing imaging. ) Vital Signs Temperature Temperature: 99.3 F Pulse Pulse Rate: 80 Respirations Respiratory Rate: 18 Pulse Oximetry: 94 Oxygen Delivery Method: Room Air O2 L/MIN: 2 Blood Pressure Blood Pressure: 124/66 Blood Pressure Mean: 85
[2024-04-14] MEDS: Pantoprazole Sodium 20 MG Tablet PO (10:14)
[2024-04-14] MEDS: Enoxaparin 40 MG/0.4 ML Syringe SC (10:14)
[2024-04-14] MEDS: Ceftriaxone 1 GM/50 ML BAG IV (10:14)
[2024-04-14] MEDS: Lisinopril 10 MG Tablet PO (10:14)
[2024-04-14] MEDS: Multivitamins,Ther W-Minerals Tablet 1 TABLET PO (10:14)
[2024-04-14] MEDS: Vancomycin HCl 1,750 MG in 0.9% Normal Saline (500mL Bag) 500 ML 250 MG IV (13:00)
[2024-04-14] MEDS: Acetaminophen 325 MG Tablet 650 MG PO ×2 (14:32→22:59)
[2024-04-14] MEDS: oxyCODONE 5 MG Tablet PO ×2 (14:33→23:00)
--- NOTE | 2024-04-14 22:06 | CT_ITS ---
CT RIGHT LOWER EXTREMITY WITH CONTRAST CLINICAL INDICATION: right medial thigh wound and cellulitis TECHNIQUE: Axial CT images of the RIGHT lower extremity was performed with IV contrast material. Coronal and sagittal reformats were provided. The protocol utilizes one or more of the following dose reduction techniques: automated exposure control, adjustment of mA and/or kV according to patient size,and/or use of iterative reconstruction technique. CONTRAST: 100 mL Isovue-370 RADIATION DOSAGE (If Supplied By Facility): CTDIvol = ( 62.50 ) mGy, DLP = ( 4361.94 ) mGycm COMPARISON: No relevant prior comparison study available FINDINGS: Bones: Osseous structures are normal without evidence of fracture or dislocation. No periosteal reaction or cortical destruction. No lytic or blastic osseous masses. Mild to moderate right hip joint space narrowing. Prominent tricompartmental marginal osteophytes of the right knee joint with near full-thickness loss of the medial tibiofemoral compartment joint space thickness. Soft Tissues: There is diffuse skin thickening along the medial right thigh with subcutaneous fat stranding which is coalescent along the mid thigh level, extending to the underlying muscular fascia of the sartorius. Presumably, there is a large open wound/ulcer in this area. No drainable collection. No evidence of extension of this process deep to the fascia investing the thigh musculature. No soft tissue gas. No foreign bodies. Reactive right inguinal lymph nodes present. CT/Extremity Lower WITH Contrast IMPRESSION: * Large wound/ulcer medial thigh with skin thickening and subcutaneous fat stranding compatible with cellulitis. * No drainable collection or evidence of abscess formation. * No evidence of necrotizing fasciitis. * No evidence of osteomyelitis. Electronically Signed: Jarvis Terry MD at 1:00 EDT ,
[2024-04-15] MEDS: 0.9% Normal Saline (1000mL) 1,000 ML 150 ML IV ×2 (02:04→08:53)
[2024-04-15] MEDS: Vancomycin HCl 1,750 MG in 0.9% Normal Saline (500mL Bag) 500 ML 250 MG IV (02:06)
[2024-04-15 03:34] VITALS: BP 120/71; PULSE 63; RESP 16; TEMP 36.6; O2SAT 99
--- NOTE | 2024-04-15 07:46 | PCM.PN.SRG ---
Subjective Subjective Doing well today. Says his medial thigh feels good, no pain. Objective Data Objective Data Right medial thigh: Right medial thigh: Small, granulating wound (7 x 3 cm). No fluid collections. Wound is stable. Induration on right medial thigh pannus is improving, less warmth/redness today. No ttp. Vital Signs: Vital Signs Temp Pulse Resp BP Pulse Ox O2 Del Method O2 Flow Rate 97.8 F 63 16 120/71 99 Room Air 2 04/15/24 03:34 04/15/24 03:34 04/15/24 03:34 04/15/24 03:34 04/15/24 03:34 04/15/24 03:34 04/14/24 09:41 Oxygen Flow Rate (L/min) 2 Oxygen Delivery Method Room Air Weight: 454 lb 9.491 oz Body Mass Index (BMI) 52.5 Intake & Output: Intake and Output for Last 24 Hours 04/13/24 04/14/24 04/15/24 23:59 23:59 23:59 Intake Total 1050 / 1050 6207.5 / 6207.5 1492.5 / 1492.5 Output Total 1250 / 2450 2200 / 2200 Balance 1050 / 550 4957.5 / 3757.5 -707.5 / -707.5 Lab / Micro Data 04/14/24 06:04 04/14/24 06:04 Micro: Microbiology 04/13/24 19:50 Skin - Other Gram Stain - Final 04/13/24 19:50 Skin - Other Wound Culture - Preliminary Gram negative em Staphylococcus species 04/13/24 17:57 Mucosa - Nasopharyngeal SARS-CoV-2, Influenza & RSV (PCR) - Final Assessment & Plan Assessment/Plan (1) Cellulitis of right leg: PLAN: Plan for 1 week f/u in the wound care center for the wound Continue hydrogel twice daily to the right medial thigh. Charges/Coding Visit Charges Inpatient E&M: 93565 Subs Hosp L1
[2024-04-15] MEDS: Ensure Plus High Protein 120 ML LIQUID PO (08:53)
[2024-04-15] MEDS: Multivitamins,Ther W-Minerals Tablet 1 TABLET PO (08:53)
[2024-04-15] MEDS: Enoxaparin 40 MG/0.4 ML Syringe SC (08:53)
[2024-04-15] MEDS: Pantoprazole Sodium 20 MG Tablet PO (08:54)
[2024-04-15] MEDS: Lisinopril 10 MG Tablet PO (08:54)
[2024-04-15] MEDS: oxyCODONE 5 MG Tablet PO ×2 (08:58→14:27)
[2024-04-15] MEDS: Acetaminophen 325 MG Tablet 650 MG PO ×2 (08:59→14:27)
[2024-04-15 09:00] VITALS: PULSE 69
[2024-04-15 09:15] VITALS: BP 138/87; PULSE 69; RESP 18; TEMP 36.6; O2SAT 98
[2024-04-15] MEDS: Ceftriaxone 1 GM/50 ML BAG IV (10:53)
--- NOTE | 2024-04-15 11:24 | CASEMGMT ---
LASHONDA ALVARADO Assessment Face to Face with patient for initial transition planning/care coordination assessment. LASHONDA ALVARADO introduced self and role at [facility], pt voices understanding. Pt is A&Ox4 and is resting comfortably in bed and is calm. Care providers, pharmacy, and demographics verified. Admitting dx: Cellulitis LACE Strata: 2 PCP: Cale Magana Specialists: Denies Preferred [facility]acy: [facility] Insurance: [employer]/ [employer] Prescription Benefit: Yes LNOK: Genny Bobby (W) Living Arrangements: Pt lives with his and 25 y/o daughter in a single story home with a flat entrance ADLs/IADLs: Ind Transportation: Self, . Denies concerns DME: BP Monitor. Pt denies further needs. HHC/SNF: Hx with [facility]. Hx at [facility] in [place] Pt?s goal: Home Plan: Home with family support. 6-Click is 24. Pt denies the need for HHC, OP Tx, or SNF. Pt states that he is able to care for his wound at home between himself, his , and his daughter who is an RN. Pt denies further concerns at this time. Pt states that he feels safe with this plan moving forward and denies further questions. Kd Tate RN, CM
--- NOTE | 2024-04-15 12:10 | DCINST_ITS ---
Discharge Instructions Diet Discharge Diet: Low fat / Low cholesterol and 2000 mg Sodium Diet Activity Discharge Activity: Return to Normal Activity Weight Bearing Status: Weight bearing as tolerated Dressing / Incision Call your doctor if you observe: Fever of 101 or Higher, Coldness, Increased Pain, Numbness or Tingling, Change in Color, Inability to urinate, Inability to have a bowel movement, Shortness of breath, Dizziness, Fainting spells, Swelling in the ankles, Chest pain, Prolonged hiccupping, Increased palpitations (irregular heartbeat) and Calf discomfort Follow Up Care When: IN 2 WEEKS Test Results: Test results from this visit will be discussed in further detail at your follow- up appointment, if applicable. Discharge Plan Admission Admit Date/Time: 04/13/24 20:05 Primary Reason for Your Visit: Right thigh cellulitis Attending Provider: Jian Dumont Primary Care Provider: Cale Magana Consulting Providers: Boo Acevedo; Kalia Freed Discharge Orders/Prescriptions Prescriptions: New sulfamethoxazole-trimethoprim [Bactrim DS] 800-160 mg tablet 1 tab PO BID 7 Days Qty: 14 0RF Continued Complete Multivitamin Tablet 1 tab PO DAILY atorvastatin 40 mg tablet 40 mg PO QHS Qty: 90 1RF acetaminophen 325 MG tablet 650 mg PO Q6H PRN PRN (Reason: Non-cardiac pain (mod-severe)) 0RF furosemide 40 mg tablet See Rx Instructions .ROUTE .COMPLEX Qty: 90 0RF Dose Instruction: take 1 tablet by mouth once daily Rx Instructions: take 1 tablet by mouth once daily omeprazole 20 mg capsule,delayed release(DR/EC) See Rx Instructions .ROUTE .COMPLEX Qty: 90 0RF Dose Instruction: take 1 capsule by mouth once daily Rx Instructions: take 1 capsule by mouth once daily Held lisinopril 10 mg tablet 10 mg PO DAILY Qty: 90 3RF Hold Instructions: Hold lisinopril for 1 week while patient is on Bactrim DS. Referrals / Follow Up: Kalia Landeros MD [Med Staff - Active Staff] - Within 1 Month (Right thigh wound) Kalia Freed MD [Med Staff - Active Staff] - In 1 Week (Follow-up in wound center.) Cale Magana, CRIB CLERK-C [Primary Care Provider] - Within 2 Weeks Disposition Disposition (needs filled in before D/C Order can be placed): Home, Self Care
[2024-04-15 12:21] VITALS: BP 133/85; PULSE 69; RESP 18; TEMP 36.7; O2SAT 98
--- NOTE | 2024-04-15 12:22 | DS.PCM_ITS ---
Providers Date of Admission: 04/13/24 Date of Discharge: 04/15/24 Primary Care Physician: DONALD Whitmore Consultations 04/13/24 22:06 Consult: Onc/Wound/public affairs director Routine Comment: 04/14/24 08:57 Consult: Plastic Surgery Routine Consulting Provider: Kalia Freed Reason for Consult: right thigh chronic ulcer, lymphedema EMERGENT Consult: No MD Notified: Yes Date Notified: 04/14/24 Time Notified: 08:58 Method of Notification: Verbal Reason For Visit: CELLULITIS Diagnosis Discharge Diagnosis (1) Cellulitis of right leg: Status: Acute Code(s): L03.115 - Cellulitis of right lower limb Plan: 49-year-old gentleman admitted with fever chills, temperature 100.4 Fahrenheit and sudden onset of right-sided chest pain which was sharp and dull, pressure- like. He was also nauseous and vomited. CT angiogram was done and was negative for PE. History of CHF and COPD Right leg cellulitis secondary to chronic wound on right medial thigh. Patient had wound that was postsurgical after lipoma resection has not completely healed. CT of the leg did not show any collection or abscess. It was evaluated by plastic surgery. Hydrogel dressing. Continue IV antibiotic vancomycin and ceftriaxone. 04/15: Patient had excision of redundant skin and subcutaneous tissue and radical dermal lipectomy of right thigh in September 2022 and on the left thigh in September 2020. The right thigh is still healing. Preliminary wound culture shows 3+ GPC, 1+ GNR in 2+ WBC growing Proteus mirabilis 3+ Staph aureus 2+. Full sensitivities pending. Discharge antibiotic discussed with ID consulted Dr. Kalia Landeros and agreed on Bactrim DS 1 tablet twice daily for 7 days to cover both above organisms. Advised to follow-up in wound clinic in 1 week with plastic surgery SUKUMAR Tamez and Dr. Kalia Freed. Follow-up in ID clinic in 1 month as needed. Patient agreeable with plan and VerSys thigh-high stockings for lymphocele. 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 * Hypertension: Continue lisinopril * Hyperlipidemia: Continue statin VTE prophylaxis with enoxaparin CODE STATUS: Full. Medications at Discharge Home Medications acetaminophen 325 mg tablet 650 mg (2 x 325 mg) PO Q6H PRN PRN Non-cardiac pain (mod-severe) 06/04/19 multivitamin,[id number]-[id number] (Complete Multivitamin tablet) 1 tab PO DAILY 04/29/20 lisinopril 10 mg tablet 10 mg PO DAILY blood pressure #90 tabs 08/23/21 atorvastatin 40 mg tablet 40 mg PO QHS cholesterol lowering #90 tabs 01/27/23 furosemide 40 mg tablet See Rx Instructions .Route .COMPLEX #90 tabs 04/04/23 omeprazole 20 mg capsule,delayed release See Rx Instructions .Route .COMPLEX #90 caps 04/04/23 sulfamethoxazole 800 mg-trimethoprim 160 mg tablet (Bactrim DS) 1 tab PO BID 1 week #14 tabs 04/15/24 Physical Exam Narrative Seen and examined. Patient was admitted with right thigh redness, swelling and pain consistent with cellulitis. No fever in last 24 hours. Patient denies that he has right-sided chest pain although mentioned in the ED note and patient had CTA chest which will be continued. Troponins negative. Denies history of coronary artery disease or [place]. Physical exam General: Alert, Oriented x3, Cooperative. Morbid obesity BMI 52.5 kg/m? HEENT: Atraumatic, PERRLA, EOMI, Normocephalic Oral: No Gingival or Mucosal Lesions/ Ulcerations Neck: Supple, No JVD, Negative Carotid Bruits Chest wall/Lungs: Air entry diminished in bilateral lung bases. No crepitation/rhonchi Cardiovascular: Regular rate, Regular Rhythm, Normal S1, Normal S2, No M/G/R Abdomen: Bowel Sounds Present, Soft, Non Tender, Non-Distended : No dysuria. No renal angle tenderness. No suprapubic tenderness. Extremities: Skin: Significant/almost resolution cellulitis. It was redness, tenderness and induration around right medial region. Erythema extending to right inguinal region./granulation wound/ulcer over right medial thigh. Scar tissue present. Lymphocele present distal right medial thigh ulcer Musculoskeletal: Scar tissue in right medial thigh. ROM restricted over knees and hip joints. Neurological: Cranial nerves II-XII grossly intact, DTR 2+/4. No acute focal neurological deficit. Psych/Mental Status: Normal Affect, Appropriate. Weight / BMI Weight Weight: 454 lb 9.491 oz Body Mass Index (BMI) 52.5 ABG / Lab / Microbiology Data 04/14/24 06:04 04/14/24 06:04 Microbiology: Microbiology 04/13/24 19:50 Skin - Other Gram Stain - Final 04/13/24 19:50 Skin - Other Wound Culture - Preliminary Proteus mirabilis Staphylococcus aureus 04/13/24 17:57 Mucosa - Nasopharyngeal SARS-CoV-2, Influenza & RSV (PCR) - Final D/C Instructions Discharge Diet: Low fat / Low cholesterol and 2000 mg Sodium Diet Weight Bearing Status: Weight bearing as tolerated Call your doctor if you observe: Fever of 101 or Higher, Coldness, Increased Pain, Numbness or Tingling, Change in Color, Inability to urinate, Inability to have a bowel movement, Shortness of breath, Dizziness, Fainting spells, Swelling in the ankles, Chest pain, Prolonged hiccupping, Increased palpitations (irregular heartbeat) and Calf discomfort When: IN 2 WEEKS Meaningful Use Info Meaningful Use Meaningful Use Diagnoses (Choose all that apply): None applicable Ischemic Stroke Statin Dosing Therapy Reference: STATIN DOSE THERAPY REFERENCE: * Patients > 75 years receive moderate or high dose statin therapy. * Patients 75 years or YOUNGER should receive HIGH intensity statin dose unless contraindicated. You will be required to document reason for non-treatment if statin daily dose does not meet guidelines. HIGH DOSE STATIN THERAPY DAILY Atorvastatin > than or = to 40 mg Rosuvastatin > than or = to 20 mg Amlodipine + Atorvastatin > than or = to 2.5/40 mg Ezetimibe + Simvastatin 10/80 mg Simvastatin 80mg Discharge Plan Admission Admit Date/Time: 04/13/24 20:05 Primary Reason for Your Visit: Right thigh cellulitis Attending Provider: Jian Dumont Primary Care Provider: Cale Magana [facility] Consulting Providers: Boo Acevedo; Kalia Freed Discharge Orders/Prescriptions Prescriptions: New sulfamethoxazole-trimethoprim [Bactrim DS] 800-160 mg tablet 1 tab PO BID 7 Days Qty: 14 0RF Continued Complete Multivitamin Tablet 1 tab PO DAILY atorvastatin 40 mg tablet 40 mg PO QHS Qty: 90 1RF acetaminophen 325 MG tablet 650 mg PO Q6H PRN PRN (Reason: Non-cardiac pain (mod-severe)) 0RF furosemide 40 mg tablet See Rx Instructions .ROUTE .COMPLEX Qty: 90 0RF Dose Instruction: take 1 tablet by mouth once daily Rx Instructions: take 1 tablet by mouth once daily omeprazole 20 mg capsule,delayed release(DR/EC) See Rx Instructions .ROUTE .COMPLEX Qty: 90 0RF Dose Instruction: take 1 capsule by mouth once daily Rx Instructions: take 1 capsule by mouth once daily Held lisinopril 10 mg tablet 10 mg PO DAILY Qty: 90 3RF Hold Instructions: Hold lisinopril for 1 week while patient is on Bactrim DS. Referrals / Follow Up: aKlia Landeros MD [Med Staff - Active Staff] - Within 1 Month (Right thigh wound) Kalia Freed MD [Med Staff - Active Staff] - In 1 Week (Follow-up in wound center.) Cale Magana [place], ACUTE CARE OCCUPATIONAL THERAPIST-C [Primary Care Provider] - Within 2 Weeks Disposition Disposition (needs filled in before D/C Order can be placed): Home, Self Care Charges/Coding Visit Charges Inpatient E&M: 07640 Disch Hosp >30min
[2024-04-15 13:41] LABS: Vancomycin, Trough Level 10.9 ug/mL (5.0-15.0)
--- NOTE | 2024-04-15 15:02 | PHA.DC.MC.R ---
Pharmacy [facility] has performed discharge medication reconciliation and counseling for this patient. 1. BACTRIM DS 1T PO BID X 7 DAYS 2. HOLD LISINOPRIL WHILE TAKING BACTRIM The patient's discharge medication list was reviewed for discrepancies and discrepancies were resolved. The patient was counseled on the following discharge medications and changes in medications for homegoing were reviewed. The Reason for Use, instructions for use, and potential side effects were reviewed for all new medications. The patient's questions regarding all of their medications were answered. The patient was able to verbally demonstrate an understanding of their discharge medications. Medications at Discharge Home Medications acetaminophen 325 mg tablet 650 mg (2 x 325 mg) PO Q6H PRN PRN Non-cardiac pain (mod-severe) 06/04/19 multivitamin,ao-iybn-awmwwvhv (Complete Multivitamin tablet) 1 tab PO DAILY 04/29/20 lisinopril 10 mg tablet 10 mg PO DAILY blood pressure #90 tabs 08/23/21 atorvastatin 40 mg tablet 40 mg PO QHS cholesterol lowering #90 tabs 01/27/23 furosemide 40 mg tablet See Rx Instructions .Route .COMPLEX #90 tabs 04/04/23 omeprazole 20 mg capsule,delayed release See Rx Instructions .Route .COMPLEX #90 caps 04/04/23 sulfamethoxazole 800 mg-trimethoprim 160 mg tablet (Bactrim DS) 1 tab PO BID 1 week #14 tabs 04/15/24
== END 2024-04-15 15:00 | disposition home or self-care (01) | DRG 383 ==
LOC: ED 19:47 → PCU 20:23 → MS3 20:43
PROVIDERS: Emergency Provider Emergency Medicine; PCP Nurse Practitioner Family; Visit Provider Internal Medicine
DX: L03.115 Cellulitis of right lower limb (principal); Z68.43 Body mass index [BMI] 50.0-59.9, adult; J44.9 Chronic obstructive pulmonary disease, unspecified; I10 Essential (primary) hypertension; E66.01 Morbid (severe) obesity due to excess calories; E78.5 Hyperlipidemia, unspecified; G47.33 Obstructive sleep apnea (adult) (pediatric); F17.200 Nicotine dependence, unspecified, uncomplicated; R09.02 Hypoxemia; R07.89 Other chest pain; Z86.711 Personal history of pulmonary embolism; Z98.84 Bariatric surgery status
CPT/HCPCS: 36415; 71275; 73701; 80048; 80202; 81001; 83605; 84484; 85025; 87040; 87070; 87077; 87186; 87205; 87631; 93005; 97802; 99284; J7030; J7040; Q9967; A4216; J2405

== ENCOUNTER 2024-04-29 09:45 | Outpatient (RCR) | payer MEDICAID, SELFPAY ==
[2024-03-11 00:22] VITALS: BP 154/67; PULSE 56; RESP 18; TEMP 36; BMI 57.7
[2024-04-17 15:33] VITALS: BP 171/87; PULSE 61; TEMP 36.5; BMI 57.7
--- NOTE | 2024-04-17 16:27 | PCM.WC.PN ---
History of Present Illness Date of Service: 04/17/24 Chief Complaint: Nonhealing ulcer left medial thigh. History of Wound: 48 year old man presents with areas of redundant skin and subcutaneous tissue in his bilateral medial thighs and abdominal panniculus with associated panniculitis. There is abdominal wall skin crease intertrigo and bilateral medial thigh intertrigo for which he uses powders for relief. This excess skin and subcutaneous tissue was the result of bariatric surgery done in [place] in May,. He lost about 250 lbs and his current weight is about 440 lbs. He has a history of lower extremity lymphedema resulting from the extreme body weight and has persistent dependent edema in his medial thighs which aggravates his symptomatology. He denies trauma. He denies fever. Both areas bother him but the medial thighs are his initial priority as he has trouble with ambulating. We received medical approval from his insurance company for his thigh surgery. Surgery 09/22/20 - Excision redundant skin and subcutaneous tissue left medial and posterior thigh with dermolipectomy. Surgery 10/05/22 - Surgical preparation right medial and posterior thigh with excision redundant skin and subcutaneous tissue with radical dermolipectomy. He went to [facility] for almost a month, he had a wound VAC while he was at [facility]. Hgb 8.7 on . Repeat Hgb 8.8 on 10/25/22 at [facility]. On iron supplementation but with his history of gastric bypass, that may impact his absorption of the iron. Rechecked on 12/12/22 Hgb 10.5. Arterial studies done on 03/23/23 which have triphasic Doppler waveforms are noted at ankle level bilaterally. Pulse-volume recordings appear satisfactory at calf, ankle, and digital levels bilaterally. Right EDDY= 1.27, Left EDDY= 1.28 There is no evidence of significant arterial occlusive disease in the lower extremities bilaterally. Vascular studies done on 03/23/23 show sapheno-femoral junctions are bilaterally incompetent . Acute and chronic superficial thrombophlebitis is noted in the right great saphenous vein above the knee. Chronic venous changes are noted in the left great saphenous vein above the knee. The right great saphenous vein appears incompetent below the knee. The left great saphenous vein appears segmentally incompetent. Small saphenous veins are patent and incompetent bilaterally. Accessory saphenous veins in the right proximal and mid-calf are incompetent. Accessory saphenous veins at the left knee, proximal calf, and mid-calf are incompetent. An incompetent computer operations supervisor vein is noted in the right calf, located 10 centimeters proximal to the right medial malleolus. An incompetent computer operations supervisor vein is noted in the left calf, located 12 centimeters proximal to the left medial malleolus. A wound culture was obtained 03/27/23 positive Proteus mirabilis, Staphylococcus aureus and he is on Bactrim. Today he denies fever and chills and states his appetite is good. Progress of Wound: Right medial leg ulcer is slightly smaller. Base of the ulcer is beefy pink. He was hospitalized over the weekend for cellulitis on his right medial leg. He was given IV antibiotics and was sent home on bactrim. He states he is feeling better today. Objective Data Objective Data Vital Signs: Vital Signs Temp Pulse Resp BP 97.7 F L 61 18 171/87 H 04/17/24 15:33 04/17/24 15:33 03/11/24 00:22 04/17/24 15:33 Weight: 500 lb Body Mass Index (BMI) 57.7 Charges/Coding Procedures Integumentary [id number]: [id number] Margarita subq tissue 20 sq cm/< Debridement Note Debridement Note Wound debrided: Right medial thigh ulcer Laterality: Right Wound Grade/Stage: 3 Type of Debridement: Excisional debridement Anesthesia Used: 5% Lidocaine Gel Depth: Down to and including healthy tissue and in the subcutaneous layer Percentage of wound debrided: 100 Instrument Used: 5mm curette Tissue Removed: Devitalized tissue and slough Severity: Fat Layer Exposed Amount of bleeding with debridement: Moderate Bleeding Controlled with: Pressure and Compression and gauze Patient tolerated procedure: Patient tolerated procedure well Post-Debridement Measurements and Additional Note: Post-Debridement Measurements/Treatment - Nurse 1 - General Ulcer Assessment Start: 04/17/24 15:33 Freq: Status: Active Protocol: WILLIAM Activity Type Activity Date Activity User E-sign Co-sign Detail Recorded Client Recorded Date Recorded By Document 04/17/24 15:33 GM 04/17/24 15:37 GM 04/17/24 15:33 - Today's Visit Information Type of service 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/PERSONNEL DIRECTOR ) Arrival Mode Ambulatory Patient Identification Verified (Name & Yes ) Height and Weight Body Mass Index (BMI) 57.7 BMI Classification Obese Vital Signs Temperature (97.8 F-99.1 F) 97.7 F L Temperature Source Temporal Pulse Rate (60-100) 61 Pulse Location Monitor Blood Pressure (90/60-120/80) 171/87 H Blood Pressure Mean (mm Hg) 115 Source Monitor Position Sitting Blood Pressure Location Left Arm History Since Last Visit- (Skip if this is Patient's initial visit) Have you changed medications since your No last visit? Any new allergies or adverse reactions No Had a fall/change in ADL's that may No increase risk of falls Signs or symptoms of abuse and/or No neglect since last visit Have you been in the hospital since your No last visit? Has dressing in place as prescribed Yes Has compression in place as prescribed Yes Has offloadiing in place as prescribed N/A Experienced any changes in pain level or No management Pain Scale: 0-10 Numeric Is Patient Pain Free? Yes - Nurse 1 - General Ulcer Measurement Start: 04/17/24 15:33 Freq: Status: Active Protocol: Activity Type Activity Date Activity User E-sign Co-sign Detail Recorded Client Recorded Date Recorded By Document 04/17/24 15:33 GM 04/17/24 15:37 04/17/24 15:33 Wound Center Nurse 1 10. R medial thigh -Current Size (cm) - Length 0.1 -Current Size (cm) - Width 0.1 -Current Size (cm) - Depth 0.1 -Total Square Cm 0.01 -Photo Taken No -Epithelialization Medium 34-66% -Tunneling No -Undermining/Tunneling No -Circular Undermining No -Exudate Amt Small -Exudate Type Serous -Wound Margin Distinct, Outline Attached -Granulation Amt Medium (34-66%) -Texture (Josephine-wound Skin Appearance) Assessed -Moisture (Josephine-wound Skin Appearance) Assessed -Color (Josephine-wound Skin Appearance) Assessed -Ulcer Cleansing Rinsed/ Irrigated with Saline -Foul Odor after Cleansing No -Anesthetic Used Cetacaine WC - Nurse 2 - General Ulcer CM Notes Start: 04/17/24 15:33 Freq: Status: Active Protocol: Activity Type Activity Date Activity User E-sign Co-sign Detail Recorded Client Recorded Date Recorded By Document 04/17/24 15:40 GM 04/17/24 15:49 GM 04/17/24 15:40 Wound Center Nurse 2 -Time 15:40 -Correct Patient Yes -Correct Side, Site, Position Yes -Correct Procedure Yes -Procedure Performed Yes -Type of Procedure Debridement -Clinical Debridement Subcutaneous -Tissue Removed Subcutaneous -Post Debridement (cm) - Length 1.7 -Post Debridement (cm) - Width 2.0 -Post Debridement (cm) - Depth 0.1 -Total Square (Post) (cm) 3.40 -Area of Debridement (cm) - Length 1.7 -Area of Debridement (cm) - Width 2.0 -Total Square (Area) (cm) 3.40 -Tunneling No -Undermining/Tunneling No -Circular Undermining No -Wound/Ulcer Outcome Not Healed -Ulcer Cleansing Rinsed/ Irrigated with Saline -Foul Odor after Cleansing No -Bioengineered Tissue No -Bleeding Controlled with Pressure -Treatment Response Procedure Tolerated Well -Debridement - Subq, 1st 20sq cm Yes Pain Scale: 0-10 Numeric Is Patient Pain Free? Yes - Nurse 3 - General Ulcer D/C NN Start: 04/17/24 15:33 Freq: Status: Active Protocol: Activity Type Activity Date Activity User E-sign Co-sign Detail Recorded Client Recorded Date Recorded By Document 04/17/24 15:56 RB wound 04/17/24 15:57 RB 04/17/24 15:56 Wound Care Center Nurse 3 10. R medial thigh -Ulcer Cleansing Rinsed/ Irrigated with Saline -Primary Dressing Applied C Hydrogel ($) -Other Dressing ABD -Primary Dressing Covered/Secured with Dry Gauze, Secured with Tape Right -Other gracia righht thigh Treatment Response Procedure Tolerated Well Pain Scale: 0-10 Numeric Is Patient Pain Free? Yes - Visit Discharge Discharge Condition Stable Ambulatory Status Ambulatory Transportation Private Auto Medication Reconcilliation completed & No provided to patient/care provider Clinical Summary of Care Provided Yes Assessment/Plan Assessment/Plan (1) Nonhealing ulcer of right lower extremity with fat layer exposed: CODE(S): L97.912 - Non-pressure chronic ulcer of unspecified part of right lower leg with fat layer exposed (2) Acute postoperative anemia due to expected blood loss: CODE(S): D62 - Acute posthemorrhagic anemia (3) Edema of both lower extremities: CODE(S): R60.0 - Localized edema (4) Chronic acquired lymphedema: CODE(S): I89.0 - Lymphedema, not elsewhere classified (5) Excessive and redundant skin and subcutaneous tissue: CODE(S): L98.7 - Excessive and redundant skin and subcutaneous tissue (6) Intertrigo: CODE(S): L30.4 - Erythema intertrigo (7) Morbid obesity: CODE(S): E66.01 - Morbid (severe) obesity due to excess calories (8) Excessive body weight loss: CODE(S): R63.4 - Abnormal weight loss (9) History of bariatric surgery: CODE(S): Z98.84 - Bariatric surgery status (10) History of excision of mass: CODE(S): Z98.890 - Other specified postprocedural states (11) Former smoker: CODE(S): Z87.891 - Personal history of nicotine dependence PLAN: Plan Patient evaluated at the wound healing center today. Wound care - Right medial leg ulcer Collagen hydrogel covered with gauze daily and as needed after washing ulcer and josephine wound with soap and water. He wears an GRACIA wraps for compression. We ordered [place] wraps for him, which he states he has not received yet. A wound culture was obtained 03/27/23 positive Proteus mirabilis, Staphylococcus aureus and he completed Bactrim. Wound culture obtained on 01/22/24 positive for Proteus mirabilis and Anaerobes. He was treated with Bactrim and Flagyl. Stressed importance of completing antibiotics. Now that he has had his vascular studies, he saw Dr. Herrera who agrees with compression and lymphedema pumps. Ordered lymphedema compression pumps to use at home to help control his lymphedema/edema. He states that he finally decided to use his compression pumps and they do not fit his legs. He still has not gotten through to the company about this. Prealbumin 21.9 on 10/06/22. Encouraged increase in protein intake to help with wound healing. Instructed him to compete the Bactrim that he was prescribed upon discharge from his recent hospitalization. Follow up 2 weeks.
[2024-04-29 09:59] VITALS: RESP 18; BMI 57.7
--- NOTE | 2024-04-29 12:54 | PCM.WC.PN ---
History of Present Illness Date of Service: 04/29/24 Chief Complaint: Nonhealing ulcer left medial thigh. History of Wound: 48 year old man presents with areas of redundant skin and subcutaneous tissue in his bilateral medial thighs and abdominal panniculus with associated panniculitis. There is abdominal wall skin crease intertrigo and bilateral medial thigh intertrigo for which he uses powders for relief. This excess skin and subcutaneous tissue was the result of bariatric surgery done in [place] in May,. He lost about 250 lbs and his current weight is about 440 lbs. He has a history of lower extremity lymphedema resulting from the extreme body weight and has persistent dependent edema in his medial thighs which aggravates his symptomatology. He denies trauma. He denies fever. Both areas bother him but the medial thighs are his initial priority as he has trouble with ambulating. We received medical approval from his insurance company for his thigh surgery. Surgery 09/22/20 - Excision redundant skin and subcutaneous tissue left medial and posterior thigh with dermolipectomy. Surgery 10/05/22 - Surgical preparation right medial and posterior thigh with excision redundant skin and subcutaneous tissue with radical dermolipectomy. He went to [facility] for almost a month, he had a wound VAC while he was at [facility]. Hgb 8.7 on . Repeat Hgb 8.8 on 10/25/[address] [facility]. On iron supplementation but with his history of gastric bypass, that may impact his absorption of the iron. Rechecked on 12/12/22 Hgb 10.5. Arterial studies done on 03/23/23 which have triphasic Doppler waveforms are noted at ankle level bilaterally. Pulse-volume recordings appear satisfactory at calf, ankle, and digital levels bilaterally. Right EDDY= 1.27, Left EDDY= 1.28 There is no evidence of significant arterial occlusive disease in the lower extremities bilaterally. Vascular studies done on 03/23/23 show sapheno-femoral junctions are bilaterally incompetent . Acute and chronic superficial thrombophlebitis is noted in the right great saphenous vein above the knee. Chronic venous changes are noted in the left great saphenous vein above the knee. The right great saphenous vein appears incompetent below the knee. The left great saphenous vein appears segmentally incompetent. Small saphenous veins are patent and incompetent bilaterally. Accessory saphenous veins in the right proximal and mid-calf are incompetent. Accessory saphenous veins at the left knee, proximal calf, and mid-calf are incompetent. An incompetent cyber transport systems specialist vein is noted in the right calf, located 10 centimeters proximal to the right medial malleolus. An incompetent cyber transport systems specialist vein is noted in the left calf, located 12 centimeters proximal to the left medial malleolus. A wound culture was obtained 03/27/23 positive Proteus mirabilis, Staphylococcus aureus and he is on Bactrim. Today he denies fever and chills and states his appetite is good. Progress of Wound: Right medial leg ulcer is slightly smaller. There is hypergranulation tissue present. Base of the ulcer is beefy pink. Objective Data Objective Data Vital Signs: Vital Signs Temp Pulse Resp BP 97.7 F L 61 18 171/87 H 04/17/24 15:33 04/17/24 15:33 04/29/24 09:59 04/17/24 15:33 Weight: 500 lb Body Mass Index (BMI) 57.7 Charges/Coding Procedures Integumentary [id number]: [id number] Margarita subq tissue 20 sq cm/< Debridement Note Debridement Note Wound debrided: Right medial thigh ulcer Laterality: Right Wound Grade/Stage: 3 Type of Debridement: Excisional debridement Anesthesia Used: 5% Lidocaine Gel Depth: Down to and including healthy tissue and in the subcutaneous layer Percentage of wound debrided: 100 Instrument Used: 5mm curette Tissue Removed: Devitalized tissue and slough Severity: Fat Layer Exposed Amount of bleeding with debridement: Moderate Bleeding Controlled with: Pressure, Compression and gauze and Silver Nitrate (To help decrease bleeding and hypergranulation tissue. ) Patient tolerated procedure: Patient tolerated procedure well Post-Debridement Measurements and Additional Note: Post-Debridement Measurements/Treatment - Nurse 1 - General Ulcer Assessment Start: 04/17/24 15:33 Freq: Status: Active Protocol: WILLIAM Activity Type Activity Date Activity User E-sign Co-sign Detail Recorded Client Recorded Date Recorded By Document 04/17/24 15:33 [facility] 04/17/24 15:37 Document 04/29/24 09:59 [id number] 04/29/24 10:05 04/17/24 04/29/24 15:33 09:59 - Today's Visit Information Type of service Follow-up Visit 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/WATER ATTENDANT (Physician/WATER ATTENDANT ) ) Arrival Mode Ambulatory Ambulatory Patient Identification Verified (Name & Yes Yes ) Height and Weight Body Mass Index (BMI) 57.7 57.7 BMI Classification Obese Obese Vital Signs Temperature (97.8 F-99.1 F) 97.7 F L Temperature Source Temporal Pulse Rate (60-100) 61 Pulse Location Monitor Respiratory Rate (12-18) 18 Respiratory rate source Observation Blood Pressure (90/60-120/80) 171/87 H Blood Pressure Mean (mm Hg) 115 Source Monitor Position Sitting Blood Pressure Location Left Arm History Since Last Visit- (Skip if this is Patient's initial visit) Have you changed medications since your No No last visit? Any new allergies or adverse reactions No No Had a fall/change in ADL's that may No No increase risk of falls Signs or symptoms of abuse and/or No No neglect since last visit Have you been in the hospital since your No No last visit? Has dressing in place as prescribed Yes Yes Has compression in place as prescribed Yes Yes Has offloadiing in place as prescribed N/A N/A Experienced any changes in pain level or No No management Left Footwear Regular Shoe Right Footwear Regular Shoe Pain Scale: 0-10 Numeric Is Patient Pain Free? Yes Yes - Nurse 1 - General Ulcer Measurement Start: 04/17/24 15:33 Freq: Status: Active Protocol: Activity Type Activity Date Activity User E-sign Co-sign Detail Recorded Client Recorded Date Recorded By Document 04/17/24 15:33 GM 04/17/24 15:37 Document 04/29/24 09:59 [id number] 04/29/24 10:05 04/17/24 04/29/24 15:33 09:59 Wound Center Nurse 1 10. R medial thigh -Current Size (cm) - Length 0.1 3 -Current Size (cm) - Width 0.1 2.7 -Current Size (cm) - Depth 0.1 0.1 -Total Square Cm 0.01 8.1 -Date of Last Picture (Recall this 04/29/24 field) -Photo Taken No -Epithelialization Medium 34-66% -Tunneling No -Undermining/Tunneling No -Circular Undermining No -Exudate Amt Small -Exudate Type Serous Sanguineous -Wound Margin Distinct, Distinct, Outline Outline Attached Attached -Granulation Amt Medium (34-66%) Large (67-100%) -Granulation Quality Red -Necrosis Amt Small (1-33%) -Necrotic Tissue Type Adherent Slough -Texture (Josephine-wound Skin Appearance) Assessed Assessed -Moisture (Josephine-wound Skin Appearance) Assessed Assessed -Color (Josephine-wound Skin Appearance) Assessed Assessed -Temperature (Josephine-wound Skin No Abnormality Appearance) (Pt Warm) -Tenderness on Palpation (Josephine-wound No Skin Appearance) -Ulcer Cleansing Rinsed/ Soap and Water Irrigated with Saline -Foul Odor after Cleansing No -Anesthetic Used Cetacaine 5% Lidocaine Gel - Nurse 2 - General Ulcer CM Notes Start: 04/17/24 15:33 Freq: Status: Active Protocol: Activity Type Activity Date Activity User E-sign Co-sign Detail Recorded Client Recorded Date Recorded By Document 04/17/24 15:40 GM 04/17/24 15:49 GM Document 04/29/24 10:12 [id number] 04/29/24 10:15 04/17/24 04/29/24 15:40 10:12 Wound Center Nurse 2 10. R medial thigh -Time 15:40 10:12 -Correct Patient Yes Yes -Correct Side, Site, Position Yes Yes -Correct Procedure Yes Yes -Procedure Performed Yes Yes -Type of Procedure Debridement Debridement -Clinical Debridement Subcutaneous Subcutaneous -Tissue Removed Subcutaneous Subcutaneous -Post Debridement (cm) - Length 1.7 3.0 -Post Debridement (cm) - Width 2.0 5.5 -Post Debridement (cm) - Depth 0.1 0.1 -Total Square (Post) (cm) 3.40 16.50 -Area of Debridement (cm) - Length 1.7 3.0 -Area of Debridement (cm) - Width 2.0 5.5 -Total Square (Area) (cm) 3.40 16.50 -Tunneling No No -Undermining/Tunneling No No -Circular Undermining No No -Wound/Ulcer Outcome Not Healed Not Healed -Ulcer Cleansing Rinsed/ Rinsed/ Irrigated with Irrigated with Saline Saline -Foul Odor after Cleansing No No -Bioengineered Tissue No No -Bleeding Controlled with Pressure Pressure -Treatment Response Procedure Procedure Tolerated Well Tolerated Well -Offloading No -Debridement - Subq, 1st 20sq cm Yes Yes Pain Scale: 0-10 Numeric Is Patient Pain Free? Yes Yes - Nurse 3 - General Ulcer D/C NN Start: 04/17/24 15:33 Freq: Status: Active Protocol: Activity Type Activity Date Activity User E-sign Co-sign Detail Recorded Client Recorded Date Recorded By Document 04/17/24 15:56 RB wound 04/17/24 15:57 RB Document 04/29/24 10:33 KW [id number] 04/29/24 10:34 KW 04/17/24 04/29/24 15:56 10:33 Wound Care Center Nurse 3 10. R medial thigh -Ulcer Cleansing Rinsed/ Irrigated with Saline -Primary Dressing Applied C Hydrogel ($) -Other Dressing ABD hydrogel -Primary Dressing Covered/Secured with Dry Gauze, Dry Gauze, Secured with Secured with Tape Tape Right -Compression Wrap Desmond Wrap -Other desmond righht thigh Treatment Response Procedure Tolerated Well Pain Scale: 0-10 Numeric Is Patient Pain Free? Yes Yes WC - Visit Discharge Discharge Condition Stable Stable Ambulatory Status Ambulatory Ambulatory Transportation Private Auto Private Auto Medication Reconcilliation completed & No No provided to patient/care provider Clinical Summary of Care Provided Yes Yes Assessment/Plan Assessment/Plan (1) Nonhealing ulcer of right lower extremity with fat layer exposed: CODE(S): L97.912 - Non-pressure chronic ulcer of unspecified part of right lower leg with fat layer exposed (2) Acute postoperative anemia due to expected blood loss: CODE(S): D62 - Acute posthemorrhagic anemia (3) Edema of both lower extremities: CODE(S): R60.0 - Localized edema (4) Chronic acquired lymphedema: CODE(S): I89.0 - Lymphedema, not elsewhere classified (5) Excessive and redundant skin and subcutaneous tissue: CODE(S): L98.7 - Excessive and redundant skin and subcutaneous tissue (6) Intertrigo: CODE(S): L30.4 - Erythema intertrigo (7) Morbid obesity: CODE(S): E66.01 - Morbid (severe) obesity due to excess calories (8) Excessive body weight loss: CODE(S): R63.4 - Abnormal weight loss (9) History of bariatric surgery: CODE(S): Z98.84 - Bariatric surgery status (10) History of excision of mass: CODE(S): Z98.890 - Other specified postprocedural states (11) Former smoker: CODE(S): Z87.891 - Personal history of nicotine dependence PLAN: Plan Patient evaluated at the wound healing center today. Wound care - Right medial leg ulcer Collagen hydrogel covered with gauze daily and as needed after washing ulcer and josephine wound with soap and water. He wears an DESMOND wraps for compression. We ordered Farrow wraps for him, which he states he has not received yet. A wound culture was obtained 03/27/23 positive Proteus mirabilis, Staphylococcus aureus and he completed Bactrim. Wound culture obtained on 01/22/24 positive for Proteus mirabilis and Anaerobes. He was treated with Bactrim and Flagyl. Stressed importance of completing antibiotics. Now that he has had his vascular studies, he saw Dr. Herrera who agrees with compression and lymphedema pumps. Ordered lymphedema compression pumps to use at home to help control his lymphedema/edema. He states that he finally decided to use his compression pumps and they do not fit his legs. He still has not gotten through to the [facility] about this. Prealbumin 21.9 on 10/06/22. Encouraged increase in protein intake to help with wound healing. Follow up 3 weeks.
--- NOTE | 2024-05-02 09:18 | WC ---
PHOTO 04/29/24 RIGHT [facility]
== END 2024-05-11 23:59 | disposition home or self-care (01) ==
LOC: WC 09:45
PROVIDERS: Referring Provider Internal Medicine; Visit Provider Nurse Practitioner Family
DX: L97.112 Non-pressure chronic ulcer of right thigh with fat layer exposed (principal); E66.01 Morbid (severe) obesity due to excess calories; Z68.43 Body mass index [BMI] 50.0-59.9, adult; L03.115 Cellulitis of right lower limb; I80.01 Phlebitis and thrombophlebitis of superficial vessels of right lower extremity; Z87.891 Personal history of nicotine dependence; Z98.84 Bariatric surgery status; L30.4 Erythema intertrigo; R60.0 Localized edema; L98.7 Excessive and redundant skin and subcutaneous tissue; M79.3 Panniculitis, unspecified
CPT/HCPCS: 11042

== ENCOUNTER 2024-06-10 10:00 | Outpatient (RCR) | payer MEDICAID, SELFPAY ==
[2024-05-12 00:08] VITALS: BP 154/67; PULSE 56; RESP 18; TEMP 36; BMI 57.7
[2024-05-20 10:16] VITALS: BP 155/94; PULSE 67; RESP 18; TEMP 36.6; BMI 57.7
[2024-06-10 10:24] VITALS: BP 154/100; PULSE 64; RESP 18; TEMP 36.4; BMI 57.7
== END 2024-06-10 23:59 | disposition home or self-care (01) ==
LOC: WC 10:00
PROVIDERS: Referring Provider Internal Medicine; Visit Provider Nurse Practitioner Family
DX: L97.112 Non-pressure chronic ulcer of right thigh with fat layer exposed (principal); E66.01 Morbid (severe) obesity due to excess calories; Z68.43 Body mass index [BMI] 50.0-59.9, adult; I83.93 Asymptomatic varicose veins of bilateral lower extremities; I80.01 Phlebitis and thrombophlebitis of superficial vessels of right lower extremity; L98.7 Excessive and redundant skin and subcutaneous tissue; M79.3 Panniculitis, unspecified; L30.4 Erythema intertrigo; I89.0 Lymphedema, not elsewhere classified; Z98.84 Bariatric surgery status; R60.0 Localized edema; Z79.899 Other long term (current) drug therapy; Z87.891 Personal history of nicotine dependence
CPT/HCPCS: 11042

== ENCOUNTER 2024-07-01 10:23 | Outpatient (RCR) | payer MEDICAID, SELFPAY ==
[2024-06-11 00:08] VITALS: BP 154/67; PULSE 56; RESP 18; TEMP 36; BMI 57.7
[2024-07-01 10:27] VITALS: RESP 18; TEMP 35.9; BMI 57.7
== END 2024-07-11 23:59 | disposition home or self-care (01) ==
LOC: WC 10:23
PROVIDERS: Referring Provider Internal Medicine; Visit Provider Nurse Practitioner Family
DX: L97.112 Non-pressure chronic ulcer of right thigh with fat layer exposed (principal); E66.01 Morbid (severe) obesity due to excess calories; Z68.43 Body mass index [BMI] 50.0-59.9, adult; I83.93 Asymptomatic varicose veins of bilateral lower extremities; I89.0 Lymphedema, not elsewhere classified; R60.0 Localized edema; L98.7 Excessive and redundant skin and subcutaneous tissue; M79.3 Panniculitis, unspecified; Z98.84 Bariatric surgery status; Z79.899 Other long term (current) drug therapy; Z87.891 Personal history of nicotine dependence
CPT/HCPCS: 11042

== ENCOUNTER → 2024-07-10 | Outpatient (CLI) | payer MEDICAID, SELFPAY | END | disposition home or self-care (01) | LOC: LABSPEC 12:32 | PROVIDERS: Referring Provider Physician Assistant; Visit Provider Physician Assistant | DX: L97.912 Non-pressure chronic ulcer of unspecified part of right lower leg with fat layer exposed (principal) | CPT/HCPCS: 87070; 87075; 87077; 87186; 87205 ==

== ENCOUNTER 2024-08-05 13:00 | Outpatient (RCR) | payer MEDICAID, SELFPAY ==
[2024-07-12 00:08] VITALS: BP 154/67; PULSE 56; RESP 18; TEMP 36; BMI 57.7
[2024-07-15 10:30] VITALS: RESP 18; TEMP 36.4; BMI 57.7
[2024-07-22 10:03] VITALS: BP 138/90; PULSE 64; RESP 16; TEMP 36.4; BMI 57.7
[2024-08-05 13:13] VITALS: BP 150/94; PULSE 63; RESP 20; BMI 57.7
== END 2024-08-10 23:59 | disposition home or self-care (01) ==
LOC: WC 13:00
PROVIDERS: Referring Provider Internal Medicine; Visit Provider Nurse Practitioner Family
DX: L97.112 Non-pressure chronic ulcer of right thigh with fat layer exposed (principal); I11.0 Hypertensive heart disease with heart failure; I50.32 Chronic diastolic (congestive) heart failure; J43.9 Emphysema, unspecified; Z68.43 Body mass index [BMI] 50.0-59.9, adult; E66.01 Morbid (severe) obesity due to excess calories; I83.93 Asymptomatic varicose veins of bilateral lower extremities; B95.62 Methicillin resistant Staphylococcus aureus infection as the cause of diseases classified elsewhere; E78.5 Hyperlipidemia, unspecified; R60.0 Localized edema; I80.01 Phlebitis and thrombophlebitis of superficial vessels of right lower extremity; L98.7 Excessive and redundant skin and subcutaneous tissue; I89.0 Lymphedema, not elsewhere classified; L30.4 Erythema intertrigo; Z98.84 Bariatric surgery status
CPT/HCPCS: 11042; 11104; 88304; 88312

== ENCOUNTER → 2024-08-22 | Outpatient (CLI) | payer MEDICAID, SELFPAY | END | disposition home or self-care (01) | PROVIDERS: PCP Nurse Practitioner Family; Referring Provider Physician Assistant Surgical; Visit Provider Physician Assistant Surgical | DX: R30.0 Dysuria (principal) | CPT/HCPCS: 87086 ==

== ENCOUNTER 2024-09-02 10:30 | Outpatient (RCR) | payer MEDICAID, SELFPAY ==
[2024-08-11 00:12] VITALS: BP 154/67; PULSE 56; RESP 18; TEMP 36; BMI 57.7
[2024-08-19 13:13] VITALS: BP 162/109; PULSE 77; RESP 18; TEMP 36.6; BMI 57.7
--- NOTE | 2024-08-19 14:09 | PCM.WC.PN ---
History of Present Illness Date of Service: 08/19/24 Chief Complaint: Nonhealing ulcer left medial thigh. History of Wound: 48 year old man presents with areas of redundant skin and subcutaneous tissue in his bilateral medial thighs and abdominal panniculus with associated panniculitis. There is abdominal wall skin crease intertrigo and bilateral medial thigh intertrigo for which he uses powders for relief. This excess skin and subcutaneous tissue was the result of bariatric surgery done in [place] in May,. He lost about 250 lbs and his current weight is about 440 lbs. He has a history of lower extremity lymphedema resulting from the extreme body weight and has persistent dependent edema in his medial thighs which aggravates his symptomatology. He denies trauma. He denies fever. Both areas bother him but the medial thighs are his initial priority as he has trouble with ambulating. We received medical approval from his insurance company for his thigh surgery. Surgery 09/22/20 - Excision redundant skin and subcutaneous tissue left medial and posterior thigh with dermolipectomy. Surgery 10/05/22 - Surgical preparation right medial and posterior thigh with excision redundant skin and subcutaneous tissue with radical dermolipectomy. He went to [facility] for almost a month, he had a wound VAC while he was at [facility]. Hgb 8.7 on . Repeat Hgb 8.8 on 10/25/22 at [facility]. On iron supplementation but with his history of gastric bypass, that may impact his absorption of the iron. Rechecked on 12/12/22 Hgb 10.5. Arterial studies done on 03/23/23 which have triphasic Doppler waveforms are noted at ankle level bilaterally. Pulse-volume recordings appear satisfactory at calf, ankle, and digital levels bilaterally. Right EDDY= 1.27, Left EDDY= 1.28 There is no evidence of significant arterial occlusive disease in the lower extremities bilaterally. Vascular studies done on 03/23/23 show sapheno-femoral junctions are bilaterally incompetent . Acute and chronic superficial thrombophlebitis is noted in the right great saphenous vein above the knee. Chronic venous changes are noted in the left great saphenous vein above the knee. The right great saphenous vein appears incompetent below the knee. The left great saphenous vein appears segmentally incompetent. Small saphenous veins are patent and incompetent bilaterally. Accessory saphenous veins in the right proximal and mid-calf are incompetent. Accessory saphenous veins at the left knee, proximal calf, and mid-calf are incompetent. An incompetent digital court reporter vein is noted in the right calf, located 10 centimeters proximal to the right medial malleolus. An incompetent digital court reporter vein is noted in the left calf, located 12 centimeters proximal to the left medial malleolus. Wound culture obtained at [facility] on 07/11/24 which was positive for MRSA and Proteus mirabilis. He was treated with Doxycycline and Levaquin. A wound culture was obtained 03/27/23 positive Proteus mirabilis, Staphylococcus aureus. Today he denies fever and chills and states his appetite is good. Subjective Subjective Doing well today. Says his medial thigh feels good, no pain. Discussed benign findings on biopsy. Wound has gotten smaller. Objective Data Objective Data Vital Signs: Vital Signs Temp Pulse Resp BP O2 Del Method 98 F 77 18 162/109 H Room Air 08/19/24 13:13 08/19/24 13:13 08/19/24 13:13 08/19/24 13:13 08/19/24 13:13 Oxygen Delivery Method Room Air Weight: 500 lb Body Mass Index (BMI) 57.7 Charges/Coding Procedures Integumentary 111xxx-113xx: [id number] Margarita subq tissue 20 sq cm/< Physical Exam Narrative RIGHT MEDIAL THIGH Persistent and painful 0.5 x 1.4 cm and 0.1 cm deep wound with exposed subQ tissue. No induration. No signs of fluid collections. No right groin lymphadenopathy Const alert and oriented x3 HEENT HEENT Narrative: S/p left cleft lip repair, straight line repair (Stevens?) Eyes EOMs intact bilaterally Lymph Lymphatic: no lymphadenopathy noted Resp normal respiratory effort Cardio regular rate Debridement Note Debridement Note Wound debrided: Right medial thigh Laterality: Right Type of Debridement: Excisional debridement Anesthesia Used: 4% Lidocaine Solution Depth: Down to and including healthy tissue and in the subcutaneous layer Percentage of wound debrided: 100 Instrument Used: 5mm curette Severity: Fat Layer Exposed Amount of bleeding with debridement: Mild Bleeding Controlled with: Pressure Patient tolerated procedure: Patient tolerated procedure well Post-Debridement Measurements and Additional Note: Post-Debridement Measurements/Treatment ACOSTA - Nurse 1 - General Ulcer Assessment Start: 08/19/24 13:13 Freq: Status: Active Protocol: WC.LOWEXT Activity Type Activity Date Activity User E-sign Co-sign Detail Recorded Client Recorded Date Recorded By Document 08/19/24 13:13 BM [id number] 08/19/24 13:15 BM Edit Result 08/19/24 13:13 BM (1) [id number] 08/19/24 13:16 BM (1) Temperature (97.8 F-99.1 F) => 98 F Temperature Source => Temporal Pulse Rate (60-100) => 77 Pulse Location => Monitor Respiratory Rate (12-18) => 18 Respiratory rate source => Observation Oxygen Delivery Method => Room Air Blood Pressure (90/60-120/80) => 162/109 H Blood Pressure Mean (mm Hg) => 126 Source => Monitor Position => Sitting Blood Pressure Location => Right Forearm 08/19/24 13:13 - Today's Visit Information Type of service 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/CENTRAL SERVICE TECHNICIAN ) Arrival Mode Ambulatory Patient Identification Verified (Name & Yes ) Height and Weight Body Mass Index (BMI) 57.7 BMI Classification Obese Vital Signs Temperature (97.8 F-99.1 F) 98 F Temperature Source Temporal Pulse Rate (60-100) 77 Pulse Location Monitor Respiratory Rate (12-18) 18 Respiratory rate source Observation Oxygen Delivery Method Room Air Blood Pressure (90/60-120/80) 162/109 H Blood Pressure Mean (mm Hg) 126 Source Monitor Position Sitting Blood Pressure Location Right Forearm History Since Last Visit- (Skip if this is Patient's initial visit) Have you changed medications since your No last visit? Any new allergies or adverse reactions No Had a fall/change in ADL's that may No increase risk of falls Signs or symptoms of abuse and/or No neglect since last visit Have you been in the hospital since your No last visit? Has dressing in place as prescribed Yes Has compression in place as prescribed Yes Has offloadiing in place as prescribed N/A Experienced any changes in pain level or No management Left Footwear Regular Shoe Right Footwear Regular Shoe Pain Scale: 0-10 Numeric Is Patient Pain Free? Yes - Nurse 1 - General Ulcer Measurement Start: 08/19/24 13:13 Freq: Status: Active Protocol: Activity Type Activity Date Activity User E-sign Co-sign Detail Recorded Client Recorded Date Recorded By Document 08/19/24 13:13 [facility] [id number] 08/19/24 13:15 [facility] 08/19/24 13:13 Wound Center Nurse 1 10. R medial thigh -Current Size (cm) - Length 0.8 -Current Size (cm) - Width 1.5 -Current Size (cm) - Depth 0.1 -Total Square Cm 1.20 -Date of Last Picture (Recall this 08/19/24 field) -Exudate Amt Small -Exudate Type Serosanguineous -Wound Margin Distinct, Outline Attached -Granulation Amt Large (67-100%) -Granulation Quality [place] -Texture (Josephine-wound Skin Appearance) Assessed, Scarring -Moisture (Josephine-wound Skin Appearance) Assessed -Color (Josephine-wound Skin Appearance) Assessed -Temperature (Josephine-wound Skin No Abnormality Appearance) (Pt Warm) -Tenderness on Palpation (Josephine-wound No Skin Appearance) -Ulcer Cleansing Rinsed/ Irrigated with Saline -Foul Odor after Cleansing No -Anesthetic Used 5% Lidocaine Gel WC - Nurse 2 - General Ulcer CM Notes Start: 08/19/24 13:13 Freq: Status: Active Protocol: Activity Type Activity Date Activity User E-sign Co-sign Detail Recorded Client Recorded Date Recorded By Document 08/19/24 13:40 [id number] 08/19/24 13:41 08/19/24 13:40 Wound Center Nurse 2 -Time 13:41 -Correct Patient Yes -Correct Side, Site, Position Yes -Correct Procedure Yes -Procedure Performed Yes -Type of Procedure Debridement -Clinical Debridement Subcutaneous -Tissue Removed Subcutaneous -Post Debridement (cm) - Length 0.5 -Post Debridement (cm) - Width 1.4 -Post Debridement (cm) - Depth 0.1 -Total Square (Post) (cm) 0.70 -Area of Debridement (cm) - Length 0.5 -Area of Debridement (cm) - Width 1.4 -Total Square (Area) (cm) 0.70 -Tunneling No -Undermining/Tunneling No -Circular Undermining No -Wound/Ulcer Outcome Not Healed -Ulcer Cleansing Rinsed/ Irrigated with Saline -Foul Odor after Cleansing No -Bioengineered Tissue No -Bleeding Controlled with Pressure -Treatment Response Procedure Tolerated Well -Offloading No -Debridement - Subq, 1st 20sq cm Yes Pain Scale: 0-10 Numeric Is Patient Pain Free? Yes WC - Nurse 3 - General Ulcer D/C NN Start: 08/19/24 13:13 Freq: Status: Active Protocol: Activity Type Activity Date Activity User E-sign Co-sign Detail Recorded Client Recorded Date Recorded By Document 08/19/24 13:45 [facility] [id number] 08/19/24 13:45 [facility] 08/19/24 13:45 Wound Care Center Nurse 3 10. R medial thigh -Ulcer Cleansing Rinsed/ Irrigated with Saline -Foul Odor after Cleansing No -Primary Dressing Applied Mepilex Border, Promogran Faby Matter -Mepilex Border 1 -Promogran Faby Matter 1 Right -Other own compression stockings applied Treatment Response Procedure Tolerated Well Pain Scale: 0-10 Numeric Is Patient Pain Free? Yes WC - Visit Discharge Discharge Condition Stable Ambulatory Status Ambulatory Transportation Private Auto Assessment/Plan Assessment/Plan (1) Nonhealing ulcer of right lower extremity with fat layer exposed: CODE(S): L97.912 - Non-pressure chronic ulcer of unspecified part of right lower leg with fat layer exposed PLAN: Discussed concerns about non-healing wound and need for biopsy to rule out malignancy forming around scar/tissue that is turning over rapidly. Risks, benefits, and alternatives discussed, and the patient gave verbal consent PROCEDURE (CPT 16641 for wound biopsy) Right medial thigh wound 11 o'clock area anesthetized with 2 cc of 1% lidocaine with epinephrine. A 5mm punch was taken, with care taken to get normal skin and also ulcer (transitional tissue) at the edge of the wound. Patient tolerated the procedure well. Wound was left open. Minimal bleeding as epinephrine was given time to take effect. PLAN: F/u biopsy results. Continue current wound care regimen. F/u in 1-2 weeks to check progress and review pathology. If negative for malignancy, could consider small skin graft to speed up wound healing. Plan from 19 Aug 2024: Wound getting very small. Will heal, I think. No need for skin grafting. Biopsy benign. F/u in 3 weeks
--- NOTE | 2024-08-20 14:50 | WC ---
PHOTO RIGHT MEDIAL THIGH 08/19/24
--- NOTE | 2024-08-20 14:54 | WC ---
PHOTO RIGHT MEDIAL THIGH 08/19/24
[2024-09-02 10:44] VITALS: BP 166/97; PULSE 71; RESP 18; TEMP 36.2; BMI 57.7
--- NOTE | 2024-09-02 12:25 | PCM.WC.PN ---
History of Present Illness Date of Service: 09/02/24 Chief Complaint: Nonhealing ulcer left medial thigh. History of Wound: 48 year old man presents with areas of redundant skin and subcutaneous tissue in his bilateral medial thighs and abdominal panniculus with associated panniculitis. There is abdominal wall skin crease intertrigo and bilateral medial thigh intertrigo for which he uses powders for relief. This excess skin and subcutaneous tissue was the result of bariatric surgery done in [place] in May,. He lost about 250 lbs and his current weight is about 440 lbs. He has a history of lower extremity lymphedema resulting from the extreme body weight and has persistent dependent edema in his medial thighs which aggravates his symptomatology. He denies trauma. He denies fever. Both areas bother him but the medial thighs are his initial priority as he has trouble with ambulating. We received medical approval from his insurance company for his thigh surgery. Surgery 09/22/20 - Excision redundant skin and subcutaneous tissue left medial and posterior thigh with dermolipectomy. Surgery 10/05/22 - Surgical preparation right medial and posterior thigh with excision redundant skin and subcutaneous tissue with radical dermolipectomy. He went to [facility] for almost a month, he had a wound VAC while he was at [facility]. Hgb 8.7 on . Repeat Hgb 8.8 on 10/25/22 at [facility]. On iron supplementation but with his history of gastric bypass, that may impact his absorption of the iron. Rechecked on 12/12/22 Hgb 10.5. Arterial studies done on 03/23/23 which have triphasic Doppler waveforms are noted at ankle level bilaterally. Pulse-volume recordings appear satisfactory at calf, ankle, and digital levels bilaterally. Right EDDY= 1.27, Left EDDY= 1.28 There is no evidence of significant arterial occlusive disease in the lower extremities bilaterally. Vascular studies done on 03/23/23 show sapheno-femoral junctions are bilaterally incompetent . Acute and chronic superficial thrombophlebitis is noted in the right great saphenous vein above the knee. Chronic venous changes are noted in the left great saphenous vein above the knee. The right great saphenous vein appears incompetent below the knee. The left great saphenous vein appears segmentally incompetent. Small saphenous veins are patent and incompetent bilaterally. Accessory saphenous veins in the right proximal and mid-calf are incompetent. Accessory saphenous veins at the left knee, proximal calf, and mid-calf are incompetent. An incompetent sterile supervisor vein is noted in the right calf, located 10 centimeters proximal to the right medial malleolus. An incompetent sterile supervisor vein is noted in the left calf, located 12 centimeters proximal to the left medial malleolus. Wound culture obtained at [facility] on 07/11/24 which was positive for MRSA and Proteus mirabilis. He was treated with Doxycycline and Levaquin. Biopsy done by Dr. Freed on 08/05/24 of right medial thigh ulcer showed Ulceration with acute and chronic inflammation and adherent fibrinoid material. Negative for fungal organisms. Today he denies fever and chills and states his appetite is good. Progress of Wound: His right medial thigh ulcer is healed today! There continues to be some dry, thickened scabbing over the healed ulcer that was removed today. Objective Data Objective Data Vital Signs: Vital Signs Temp Pulse Resp BP O2 Del Method 97.2 F L 71 18 166/97 H Room Air 09/02/24 10:44 09/02/24 10:44 09/02/24 10:44 09/02/24 10:44 09/02/24 10:44 Oxygen Delivery Method Room Air Weight: 500 lb Body Mass Index (BMI) 57.7 Charges/Coding Visit Charges Office Visits / Consults: 15307 OV L3 Est 20min Physical Exam Const alert and oriented x3 General Appearance: cooperative HEENT normocephalic Eyes General Eye: normal appearance of both eyes Lymph Lymphatic: lymphedema moderate and non-pitting Resp normal respiratory effort and normal air movement Effort and Inspection: able to speak in complete sentences Cardio regular rate and regular rhythm Back/Spine normal ROM Extremity normal capillary refill General Extremity: edema bilateral lower extremity Details: moderate Skin Wound Narrative: Right medial thigh ulcer is healed today. Removed some thickened scabbing but underneath, the area is healed. Neuro oriented x3 Psych mental status grossly normal and thought process normal Debridement Note Debridement Note Post-Debridement Measurements and Additional Note: Post-Debridement Measurements/Treatment WC - Nurse 1 - General Ulcer Assessment Start: 08/19/24 13:13 Freq: Status: Active Protocol: [email or web address].[email or web address] Activity Type Activity Date Activity User E-sign Co-sign Detail Recorded Client Recorded Date Recorded By Document 08/19/24 13:13 BMF [id number] 08/19/24 13:15 BMF Edit Result 08/19/24 13:13 BMF (1) [id number] 08/19/24 13:16 BMF Document 09/02/24 10:44 DS [id number] 09/02/24 10:49 DS (1) Temperature (97.8 F-99.1 F) => 98 F Temperature Source => Temporal Pulse Rate (60-100) => 77 Pulse Location => Monitor Respiratory Rate (12-18) => 18 Respiratory rate source => Observation Oxygen Delivery Method => Room Air Blood Pressure (90/60-120/80) => 162/109 H Blood Pressure Mean (mm Hg) => 126 Source => Monitor Position => Sitting Blood Pressure Location => Right Forearm 08/19/24 09/02/24 13:13 10:44 - Today's Visit Information Type of service Follow-up Visit 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/REAL ESTATE INVESTMENT ANALYST (Physician/REAL ESTATE INVESTMENT ANALYST ) ) Arrival Mode Ambulatory Ambulatory Patient Identification Verified (Name & Yes Yes ) Patient Requires Transmission-Based No Precautions Safety Precautions Fall Prevention Height and Weight Body Mass Index (BMI) 57.7 57.7 BMI Classification Obese Obese Vital Signs Temperature (97.8 F-99.1 F) 98 F 97.2 F L Temperature Source Temporal Temporal Pulse Rate (60-100) 77 71 Pulse Location Monitor Monitor Respiratory Rate (12-18) 18 18 Respiratory rate source Observation Observation Oxygen Delivery Method Room Air Room Air Blood Pressure (90/60-120/80) 162/109 H 166/97 H Blood Pressure Mean (mm Hg) 126 120 Source Monitor Monitor Position Sitting Sitting Blood Pressure Location Right Forearm Left Forearm History Since Last Visit- (Skip if this is Patient's initial visit) Have you changed medications since your No No last visit? Any new allergies or adverse reactions No No Had a fall/change in ADL's that may No No increase risk of falls Signs or symptoms of abuse and/or No No neglect since last visit Have you been in the hospital since your No No last visit? Has dressing in place as prescribed Yes Yes Has compression in place as prescribed Yes Yes Has offloadiing in place as prescribed N/A N/A Experienced any changes in pain level or No No management Left Footwear Regular Shoe Regular Shoe Right Footwear Regular Shoe Regular Shoe Pain Scale: 0-10 Numeric Is Patient Pain Free? Yes Yes WC - Nurse 1 - General Ulcer Measurement Start: 08/19/24 13:13 Freq: Status: Active Protocol: Activity Type Activity Date Activity User E-sign Co-sign Detail Recorded Client Recorded Date Recorded By Document 08/19/24 13:13 [facility] [id number] 08/19/24 13:15 [facility] Document 09/02/24 10:44 DS [id number] 09/02/24 10:49 DS 08/19/24 09/02/24 13:13 10:44 Wound Center Nurse 1 10. R medial thigh -Current Size (cm) - Length 0.8 0.1 -Current Size (cm) - Width 1.5 0.1 -Current Size (cm) - Depth 0.1 0.1 -Total Square Cm 1.20 0.01 -Date of Last Picture (Recall this 08/19/24 field) -Photo Taken No -Undermining/Tunneling No -Exudate Amt Small -Exudate Type Serosanguineous -Wound Margin Distinct, Outline Attached -Granulation Amt Large (67-100%) -Granulation Quality [place] -Texture (Josephine-wound Skin Appearance) Assessed, Assessed Scarring -Moisture (Josephine-wound Skin Appearance) Assessed Assessed -Color (Josephine-wound Skin Appearance) Assessed Assessed -Temperature (Josephine-wound Skin No Abnormality No Abnormality Appearance) (Pt Warm) (Pt Warm) -Tenderness on Palpation (Josephine-wound No No Skin Appearance) -Ulcer Cleansing Rinsed/ Soap and Water Irrigated with Saline -Foul Odor after Cleansing No No -Anesthetic Used 5% Lidocaine 5% Lidocaine Gel Gel WC - Nurse 2 - General Ulcer CM Notes Start: 08/19/24 13:13 Freq: Status: Active Protocol: Activity Type Activity Date Activity User E-sign Co-sign Detail Recorded Client Recorded Date Recorded By Document 08/19/24 13:40 [id number] 08/19/24 13:41 Document 09/02/24 10:58 [id number] 09/02/24 11:01 JF 08/19/24 09/02/24 13:40 10:58 Wound Center Nurse 2 10. R medial thigh -Time 13:41 -Correct Patient Yes No -Correct Side, Site, Position Yes No -Correct Procedure Yes No -Procedure Performed Yes No -Type of Procedure Debridement -Clinical Debridement Subcutaneous -Tissue Removed Subcutaneous -Post Debridement (cm) - Length 0.5 0 -Post Debridement (cm) - Width 1.4 0 -Post Debridement (cm) - Depth 0.1 0 -Total Square (Post) (cm) 0.70 0 -Area of Debridement (cm) - Length 0.5 0 -Area of Debridement (cm) - Width 1.4 0 -Total Square (Area) (cm) 0.70 0 -Tunneling No -Undermining/Tunneling No -Circular Undermining No -Wound/Ulcer Outcome Not Healed Healed- Epithelialized -Ulcer Cleansing Rinsed/ Irrigated with Saline -Foul Odor after Cleansing No -Bioengineered Tissue No -Bleeding Controlled with Pressure -Treatment Response Procedure Tolerated Well -Offloading No -Debridement - Subq, 1st 20sq cm Yes Pain Scale: 0-10 Numeric Is Patient Pain Free? Yes Yes - Nurse 3 - General Ulcer D/C NN Start: 08/19/24 13:13 Freq: Status: Active Protocol: Activity Type Activity Date Activity User E-sign Co-sign Detail Recorded Client Recorded Date Recorded By Document 08/19/24 13:45 [facility] [id number] 08/19/24 13:45 [facility] Document 09/02/24 11:02 [id number] 09/02/24 11:02 08/19/24 09/02/24 13:45 11:02 Wound Care Center Nurse 3 10. R medial thigh -Ulcer Cleansing Rinsed/ Rinsed/ Irrigated with Irrigated with Saline Saline -Foul Odor after Cleansing No -Primary Dressing Applied Mepilex Border, Mepilex Border Promogran Faby Matter -Mepilex Border 1 2 -Promogran Faby Matter 1 Right -Other own compression stockings applied Treatment Response Procedure Tolerated Well Pain Scale: 0-10 Numeric Is Patient Pain Free? Yes Yes - Visit Discharge Discharge Condition Stable Stable Ambulatory Status Ambulatory Ambulatory Transportation Private Auto Private Auto Medication Reconcilliation completed & No provided to patient/care provider Clinical Summary of Care Provided No Assessment/Plan Assessment/Plan (1) Nonhealing ulcer of right lower extremity with fat layer exposed: CODE(S): L97.912 - Non-pressure chronic ulcer of unspecified part of right lower leg with fat layer exposed (2) Acute postoperative anemia due to expected blood loss: CODE(S): D62 - Acute posthemorrhagic anemia (3) Edema of both lower extremities: CODE(S): R60.0 - Localized edema (4) Chronic acquired lymphedema: CODE(S): I89.0 - Lymphedema, not elsewhere classified (5) Excessive and redundant skin and subcutaneous tissue: CODE(S): L98.7 - Excessive and redundant skin and subcutaneous tissue (6) Intertrigo: CODE(S): L30.4 - Erythema intertrigo (7) Morbid obesity: CODE(S): E66.01 - Morbid (severe) obesity due to excess calories (8) Excessive body weight loss: CODE(S): R63.4 - Abnormal weight loss (9) History of bariatric surgery: CODE(S): Z98.84 - Bariatric surgery status (10) History of excision of mass: CODE(S): Z98.890 - Other specified postprocedural states (11) Former smoker: CODE(S): Z87.891 - Personal history of nicotine dependence PLAN: Plan Patient evaluated at the wound healing center today. Wound care - Today placed [place] SAP until the scarring is not so fragile. He will start to massage lotion onto area to help soften scarring, daily. Compression - He will continue to wear his thigh high compression. Biopsy from 08/05/24 was benign. Will have him follow up in 2 weeks to make sure he remains healed.
== END 2024-09-10 23:59 | disposition home or self-care (01) ==
LOC: WC 10:30
PROVIDERS: PCP Nurse Practitioner Family; Referring Provider Internal Medicine; Visit Provider Nurse Practitioner Family
DX: L97.122 Non-pressure chronic ulcer of left thigh with fat layer exposed (principal); L97.112 Non-pressure chronic ulcer of right thigh with fat layer exposed; E66.01 Morbid (severe) obesity due to excess calories; Z68.43 Body mass index [BMI] 50.0-59.9, adult; I80.01 Phlebitis and thrombophlebitis of superficial vessels of right lower extremity; L98.7 Excessive and redundant skin and subcutaneous tissue; R60.0 Localized edema; I89.0 Lymphedema, not elsewhere classified; M79.3 Panniculitis, unspecified; B95.62 Methicillin resistant Staphylococcus aureus infection as the cause of diseases classified elsewhere; B96.4 Proteus (mirabilis) (morganii) as the cause of diseases classified elsewhere; L30.4 Erythema intertrigo; Z98.84 Bariatric surgery status; Z87.891 Personal history of nicotine dependence
CPT/HCPCS: 11042; 99213; G0463

== ENCOUNTER → 2024-10-03 | Outpatient (CLI) | payer MEDICAID, SELFPAY ==
[2024-10-03 12:49] LABS: Absolute Lymphocyte Count 1.28 X10^3/uL (0.83-4.51); Basophil# 0.03 X10^3/uL; Basophil% 0.5 % (0-1); Eosinophil# 0.27 X10^3/uL; Eosinophils% 4.4 % (0-5); Hematocrit 37.6 % (40-54); Hemoglobin 12.2 g/dL (13.0-16.5); Lymphocyte # 1.28 X10^3/ul (0.83-4.51); Lymphocyte % 21.1 % (19-41); Mean Corp Hgb Conc 32.4 g/dL (32-36); Mean Corpuscular Hgb 25.3 pg (27.0-32.0); Mean Platelet Vol. 9.3 fl (6.2-12.0); Monocyte# 0.46 X10^3/uL; Monocyte% 7.6 % (0-10); NRBC Flagged by Analyzer 0 % (0-5); Neutrophil # 4.02 X10^3/uL (2.7-7.7); Neutrophil % 66.1 % (47-70); Platelet Count 242 K/mm3 (150-450); RBC Distribution Width CV 16.3 % (11.6-14.6); RBC Distribution Width SD 46.1 fl (35.1-43.9); Red Blood Count 4.82 M/mm3 (4.6-6.2); White Blood Count 6.1 K/mm3 (4.4-11.0)
[2024-10-03 13:05] LABS: Hemoglobin A1c 5.1 % (3.8-5.6)
[2024-10-03 13:11] LABS: ALB/GLOB Ratio 0.9 RATIO (0.9-2.4); AST(SGOT) 12 U/L (15-37); Alanine Aminotransfer ALT/SGPT 28 U/L (16-61); Albumin, Serum 3.5 g/dL (3.2-5.0); Alkaline Phosphatase 86 U/L (45-117); Anion Gap 5 (5-15); BUN 23 mg/dL (7-18); BUN/Creat Ratio 20.9 RATIO (10-20); Chloride 106 mmol/L (98-107); Cholesterol 207 mg/dL (200); EST Glomerular Filtration Rate 75 mL/min (>60); Est Glom Filt Rate - Afr Amer 91 mL/min (>60); Globulin 3.9 g/dL (2.2-4.2); Glucose 101 mg/dL (74-106); High Density Lipoprotein 46 mg/dL; Potassium 4.1 mmol/L (3.5-5.1); Protein, Total 7.4 g/dL (6.4-8.2); Sodium Level 138 mmol/L (136-145); Thyroid Stim Hormone (TSH) 0.609 uIU/mL (0.358-3.740); Triglycerides 69 mg/dL; Very Low Density Lipoprotein 14 mg/dL (5-40)
== END | disposition home or self-care (01) ==
LOC: VSLAB 12:12
PROVIDERS: PCP Nurse Practitioner Family
DX: Z13.220 Encounter for screening for lipoid disorders (principal); Z13.1 Encounter for screening for diabetes mellitus; I10 Essential (primary) hypertension
CPT/HCPCS: 36415; 80053; 80061; 83036; 84443; 85025

== ENCOUNTER 2024-10-07 10:30 | Outpatient (RCR) | payer MEDICAID, SELFPAY ==
[2024-09-11 00:09] VITALS: BP 154/67; PULSE 56; RESP 18; TEMP 36; BMI 57.7
[2024-09-23 10:28] VITALS: BP 171/111; PULSE 64; RESP 16; TEMP 36.1; BMI 57.7
--- NOTE | 2024-09-23 12:07 | PCM.WC.PN ---
History of Present Illness Date of Service: 09/23/24 Chief Complaint: Nonhealing ulcer left medial thigh. History of Wound: 48 year old man presents with areas of redundant skin and subcutaneous tissue in his bilateral medial thighs and abdominal panniculus with associated panniculitis. There is abdominal wall skin crease intertrigo and bilateral medial thigh intertrigo for which he uses powders for relief. This excess skin and subcutaneous tissue was the result of bariatric surgery done in [place] in May,. He lost about 250 lbs and his current weight is about 440 lbs. He has a history of lower extremity lymphedema resulting from the extreme body weight and has persistent dependent edema in his medial thighs which aggravates his symptomatology. He denies trauma. He denies fever. Both areas bother him but the medial thighs are his initial priority as he has trouble with ambulating. We received medical approval from his insurance company for his thigh surgery. Surgery 09/22/20 - Excision redundant skin and subcutaneous tissue left medial and posterior thigh with dermolipectomy. Surgery 10/05/22 - Surgical preparation right medial and posterior thigh with excision redundant skin and subcutaneous tissue with radical dermolipectomy. He went to [facility] for almost a month, he had a wound VAC while he was at [facility]. Hgb 8.7 on . Repeat Hgb 8.8 on 10/25/22 at [facility]. On iron supplementation but with his history of gastric bypass, that may impact his absorption of the iron. Rechecked on 12/12/22 Hgb 10.5. Arterial studies done on 03/23/23 which have triphasic Doppler waveforms are noted at ankle level bilaterally. Pulse-volume recordings appear satisfactory at calf, ankle, and digital levels bilaterally. Right EDDY= 1.27, Left EDDY= 1.28 There is no evidence of significant arterial occlusive disease in the lower extremities bilaterally. Vascular studies done on 03/23/23 show sapheno-femoral junctions are bilaterally incompetent . Acute and chronic superficial thrombophlebitis is noted in the right great saphenous vein above the knee. Chronic venous changes are noted in the left great saphenous vein above the knee. The right great saphenous vein appears incompetent below the knee. The left great saphenous vein appears segmentally incompetent. Small saphenous veins are patent and incompetent bilaterally. Accessory saphenous veins in the right proximal and mid-calf are incompetent. Accessory saphenous veins at the left knee, proximal calf, and mid-calf are incompetent. An incompetent premium auditor vein is noted in the right calf, located 10 centimeters proximal to the right medial malleolus. An incompetent premium auditor vein is noted in the left calf, located 12 centimeters proximal to the left medial malleolus. Wound culture obtained at [facility] on 07/11/24 which was positive for MRSA and Proteus mirabilis. He was treated with Doxycycline and Levaquin. Biopsy done by Dr. Freed on 08/05/24 of right medial thigh ulcer showed Ulceration with acute and chronic inflammation and adherent fibrinoid material. Negative for fungal organisms. Today he denies fever and chills and states his appetite is good. Progress of Wound: His right medial thigh ulcer reopened and he now has an open wound on his right medial thigh. He states that it opened over the past week. Objective Data Objective Data Vital Signs: Vital Signs Temp Pulse Resp BP O2 Del Method 96.9 F L 64 16 171/111 H Room Air 09/23/24 10:28 09/23/24 10:28 09/23/24 10:28 09/23/24 10:28 09/23/24 10:28 Oxygen Delivery Method Room Air Weight: 500 lb Body Mass Index (BMI) 57.7 Charges/Coding Procedures Integumentary [id number]: [id number] Margarita subq tissue 20 sq cm/< Debridement Note Debridement Note Wound debrided: Right medial thigh ulcer Laterality: Right Wound Grade/Stage: 3 Type of Debridement: Excisional debridement Anesthesia Used: 5% Lidocaine Gel Depth: Down to and including healthy tissue and in the subcutaneous layer Percentage of wound debrided: 100 Instrument Used: 3mm curette Tissue Removed: Devitalized tissue and slough Severity: Fat Layer Exposed Amount of bleeding with debridement: Mild Bleeding Controlled with: Pressure and Compression and gauze Patient tolerated procedure: Patient tolerated procedure well Post-Debridement Measurements and Additional Note: Post-Debridement Measurements/Treatment WC - Nurse 1 - General Ulcer Assessment Start: 09/23/24 10:27 Freq: Status: Active Protocol: WILLIAM Activity Type Activity Date Activity User E-sign Co-sign Detail Recorded Client Recorded Date Recorded By Document 09/23/24 10:28 HARSHAD [id number] 09/23/24 10:31 KW 09/23/24 10:28 - Today's Visit Information Type of service 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/ACCESS CLINICIAN ) Arrival Mode Ambulatory Patient Identification Verified (Name & Yes ) Height and Weight Body Mass Index (BMI) 57.7 BMI Classification Obese Vital Signs Temperature (97.8 F-99.1 F) 96.9 F L Temperature Source Temporal Pulse Rate (60-100) 64 Pulse Location Monitor Respiratory Rate (12-18) 16 Respiratory rate source Observation Oxygen Delivery Method Room Air Blood Pressure (90/60-120/80) 171/111 H Blood Pressure Mean (mm Hg) 131 Source Monitor Position Sitting Blood Pressure Location Left Forearm History Since Last Visit- (Skip if this is Patient's initial visit) Have you changed medications since your No last visit? Any new allergies or adverse reactions No Had a fall/change in ADL's that may No increase risk of falls Signs or symptoms of abuse and/or No neglect since last visit Have you been in the hospital since your No last visit? Has dressing in place as prescribed Yes Has compression in place as prescribed N/A Has offloadiing in place as prescribed N/A Experienced any changes in pain level or No management Left Footwear Regular Shoe Right Footwear Regular Shoe Pain Scale: 0-10 Numeric Is Patient Pain Free? Yes - Nurse 1 - General Ulcer Measurement Start: 09/23/24 10:27 Freq: Status: Active Protocol: Activity Type Activity Date Activity User E-sign Co-sign Detail Recorded Client Recorded Date Recorded By Document 09/23/24 10:28 [id number] 09/23/24 10:31 KW 09/23/24 10:28 Wound Center Nurse 1 10. R medial thigh -Current Size (cm) - Length 3 -Current Size (cm) - Width 0.5 -Current Size (cm) - Depth 0.1 -Total Square Cm 1.5 -Date of Last Picture (Recall this 09/23/24 field) -Epithelialization Large 67-100% -Exudate Amt Small -Exudate Type Serosanguineous -Wound Margin Distinct, Outline Attached -Granulation Amt Large (67-100%) -Granulation Quality Red -Texture (Josephine-wound Skin Appearance) Assessed, Scarring -Moisture (Josephine-wound Skin Appearance) Assessed -Color (Josephine-wound Skin Appearance) Assessed -Temperature (Josephine-wound Skin No Abnormality Appearance) (Pt Warm) -Tenderness on Palpation (Josephine-wound No Skin Appearance) -Ulcer Cleansing Rinsed/ Irrigated with Saline -Foul Odor after Cleansing No -Anesthetic Used 5% Lidocaine Gel WC - Nurse 2 - General Ulcer CM Notes Start: 09/23/24 10:27 Freq: Status: Active Protocol: Activity Type Activity Date Activity User E-sign Co-sign Detail Recorded Client Recorded Date Recorded By Document 09/23/24 10:43 [id number] 09/23/24 10:51 GM 09/23/24 10:43 Wound Center Nurse 2 #11 LEFT MEDIAL THIGH -Time 10:50 -Correct Patient Yes -Correct Side, Site, Position Yes -Correct Procedure Yes -Procedure Performed Yes -Type of Procedure Debridement -Clinical Debridement Subcutaneous -Tissue Removed Subcutaneous -Post Debridement (cm) - Length 1.7 -Post Debridement (cm) - Width 0.8 -Post Debridement (cm) - Depth 0.2 -Total Square (Post) (cm) 1.36 -Area of Debridement (cm) - Length 1.7 -Area of Debridement (cm) - Width 0.8 -Total Square (Area) (cm) 1.36 -Tunneling No -Undermining/Tunneling No -Circular Undermining No -Wound/Ulcer Outcome Not Healed -Ulcer Cleansing Rinsed/ Irrigated with Saline -Foul Odor after Cleansing No -Bioengineered Tissue No -Bleeding Controlled with Pressure -Treatment Response Procedure Tolerated Well -Debridement - Subq, 1st 20sq cm No 10. R medial thigh -Time 10:43 -Correct Patient Yes -Correct Side, Site, Position Yes -Correct Procedure Yes -Procedure Performed Yes -Type of Procedure Debridement -Clinical Debridement Subcutaneous -Tissue Removed Subcutaneous -Post Debridement (cm) - Length 2.3 -Post Debridement (cm) - Width 1.0 -Post Debridement (cm) - Depth 0.1 -Total Square (Post) (cm) 2.30 -Area of Debridement (cm) - Length 2.3 -Area of Debridement (cm) - Width 1.0 -Total Square (Area) (cm) 2.30 -Tunneling No -Undermining/Tunneling No -Circular Undermining No -Wound/Ulcer Outcome Not Healed -Ulcer Cleansing Rinsed/ Irrigated with Saline -Foul Odor after Cleansing No -Bioengineered Tissue No -Bleeding Controlled with Pressure -Treatment Response Procedure Tolerated Well -Debridement - Subq, 1st 20sq cm Yes Pain Scale: 0-10 Numeric Is Patient Pain Free? Yes WC - Nurse 3 - General Ulcer D/C NN Start: 09/23/24 10:27 Freq: Status: Active Protocol: Activity Type Activity Date Activity User E-sign Co-sign Detail Recorded Client Recorded Date Recorded By Document 09/23/24 10:58 KW [id number] 09/23/24 11:00 KW 09/23/24 10:58 Wound Care Center Nurse 3 #11 LEFT MEDIAL THIGH -Primary Dressing Applied Promogran Jaron Matter, Silicone Border Foam 6x6 -Promogran Jaron Matter 1 -Silicone Border Foam 6x6 1 10. R medial thigh -Primary Dressing Applied Silicone Border Foam 6x6 -Other Dressing JARON -Silicone Border Foam 6x6 1 ble -Other THIGH HIGH STOCKINGS Pain Scale: 0-10 Numeric Is Patient Pain Free? Yes WC - Visit Discharge Discharge Condition Stable Ambulatory Status Ambulatory Transportation Private Auto Medication Reconcilliation completed & No provided to patient/care provider Clinical Summary of Care Provided Yes Additional Wound Wound debrided: medial thigh wound Laterality: Left Type of Debridement: Excisional debridement Anesthesia Used: 5% Lidocaine Gel Depth: Down to and including healthy tissue and in the subcutaneous layer Percentage of wound debrided: 100 Instrument Used: 3mm curette Tissue Removed: Non viable tissue and slough Severity: Limited To Skin Breakdown Amount of bleeding with debridement: Mild Bleeding Controlled with: Compression and gauze Patient tolerated procedure: Patient tolerated procedure well Assessment/Plan Assessment/Plan (1) Nonhealing ulcer of right lower extremity with fat layer exposed: CODE(S): L97.912 - Non-pressure chronic ulcer of unspecified part of right lower leg with fat layer exposed (2) Acute postoperative anemia due to expected blood loss: CODE(S): D62 - Acute posthemorrhagic anemia (3) Edema of both lower extremities: CODE(S): R60.0 - Localized edema (4) Chronic acquired lymphedema: CODE(S): I89.0 - Lymphedema, not elsewhere classified (5) Excessive and redundant skin and subcutaneous tissue: CODE(S): L98.7 - Excessive and redundant skin and subcutaneous tissue (6) Morbid obesity: CODE(S): E66.01 - Morbid (severe) obesity due to excess calories (7) History of bariatric surgery: CODE(S): Z98.84 - Bariatric surgery status (8) Wound of thigh: CODE(S): S71.109A - Unspecified open wound, unspecified thigh, initial encounter PLAN: Plan Patient evaluated at the wound healing center today. His left thigh has reopened and he has a wound there. His right thigh has also reopened. Wound care - Place Moistened Jaron and cover with gauze or [place] SAP daily after washing with soap and water. Compression - He will continue to wear his thigh high compression. Since he now has wounds/ulcers on bilateral thighs, will try to order him thigh high compression stockings to help with his lymphedema. Will have him follow up in 2 weeks. Instructed to call or come in sooner if develop any concerns.
--- NOTE | 2024-09-27 08:58 | WC ---
PHOTO 09/23/24 [facility]
[2024-10-07 10:31] VITALS: BP 180/108; PULSE 50; RESP 18; TEMP 36.3; BMI 57.7
--- NOTE | 2024-10-07 12:43 | PCM.WC.PN ---
History of Present Illness Date of Service: 10/07/24 Chief Complaint: Nonhealing ulcer left medial thigh. History of Wound: 48 year old man presents with areas of redundant skin and subcutaneous tissue in his bilateral medial thighs and abdominal panniculus with associated panniculitis. There is abdominal wall skin crease intertrigo and bilateral medial thigh intertrigo for which he uses powders for relief. This excess skin and subcutaneous tissue was the result of bariatric surgery done in [place] in May,. He lost about 250 lbs and his current weight is about 440 lbs. He has a history of lower extremity lymphedema resulting from the extreme body weight and has persistent dependent edema in his medial thighs which aggravates his symptomatology. He denies trauma. He denies fever. Both areas bother him but the medial thighs are his initial priority as he has trouble with ambulating. We received medical approval from his insurance company for his thigh surgery. Surgery 09/22/20 - Excision redundant skin and subcutaneous tissue left medial and posterior thigh with dermolipectomy. Surgery 10/05/22 - Surgical preparation right medial and posterior thigh with excision redundant skin and subcutaneous tissue with radical dermolipectomy. He went to [facility] for almost a month, he had a wound VAC while he was at [facility]. Hgb 8.7 on . Repeat Hgb 8.8 on 10/25/22 at [facility]. On iron supplementation but with his history of gastric bypass, that may impact his absorption of the iron. Rechecked on 12/12/22 Hgb 10.5. Arterial studies done on 03/23/23 which have triphasic Doppler waveforms are noted at ankle level bilaterally. Pulse-volume recordings appear satisfactory at calf, ankle, and digital levels bilaterally. Right EDDY= 1.27, Left EDDY= 1.28 There is no evidence of significant arterial occlusive disease in the lower extremities bilaterally. Vascular studies done on 03/23/23 show sapheno-femoral junctions are bilaterally incompetent . Acute and chronic superficial thrombophlebitis is noted in the right great saphenous vein above the knee. Chronic venous changes are noted in the left great saphenous vein above the knee. The right great saphenous vein appears incompetent below the knee. The left great saphenous vein appears segmentally incompetent. Small saphenous veins are patent and incompetent bilaterally. Accessory saphenous veins in the right proximal and mid-calf are incompetent. Accessory saphenous veins at the left knee, proximal calf, and mid-calf are incompetent. An incompetent cuffer vein is noted in the right calf, located 10 centimeters proximal to the right medial malleolus. An incompetent cuffer vein is noted in the left calf, located 12 centimeters proximal to the left medial malleolus. Wound culture obtained at [facility] on 07/11/24 which was positive for MRSA and Proteus mirabilis. He was treated with Doxycycline and Levaquin. Biopsy done by Dr. Freed on 08/05/24 of right medial thigh ulcer showed Ulceration with acute and chronic inflammation and adherent fibrinoid material. Negative for fungal organisms. Today he denies fever and chills and states his appetite is good. Progress of Wound: His right medial thigh ulcer is not improving. It is stable but the wound bed is a dark red color. His left medial wound remains open. A wound culture was obtained today.? A positive culture will necessitate antibiotic therapy. Objective Data Objective Data Vital Signs: Vital Signs Temp Pulse Resp BP O2 Del Method 97.4 F L 50 L 18 180/108 H Room Air 10/07/24 10:31 10/07/24 10:31 10/07/24 10:31 10/07/24 10:31 09/23/24 10:28 Oxygen Delivery Method Room Air Weight: 500 lb Body Mass Index (BMI) 57.7 Charges/Coding Procedures Integumentary 111xxx-113xx: [id number] Margarita subq tissue 20 sq cm/< Debridement Note Debridement Note Wound debrided: Right medial thigh ulcer Laterality: Right Wound Grade/Stage: 3 Type of Debridement: Excisional debridement Anesthesia Used: 5% Lidocaine Gel Depth: Down to and including healthy tissue and in the subcutaneous layer Percentage of wound debrided: 100 Instrument Used: 5mm curette Tissue Removed: Devitalized tissue and slough Severity: Fat Layer Exposed Amount of bleeding with debridement: Mild Bleeding Controlled with: Pressure and Compression and gauze Patient tolerated procedure: Patient tolerated procedure well Post-Debridement Measurements and Additional Note: Post-Debridement Measurements/Treatment WC - Nurse 1 - General Ulcer Assessment Start: 09/23/24 10:27 Freq: Status: Active Protocol: WILLIAM Activity Type Activity Date Activity User E-sign Co-sign Detail Recorded Client Recorded Date Recorded By Document 09/23/24 10:28 KW [id number] 09/23/24 10:31 KW Document 10/07/24 10:31 DL [id number] 10/07/24 10:37 DL 09/23/24 10/07/24 10:28 10:31 - Today's Visit Information Type of service Follow-up Visit 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/PRECISION 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 (Physician/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 ) ) Arrival Mode Ambulatory Ambulatory Transfer Assistance None Patient Identification Verified (Name & Yes Yes ) Patient Requires Transmission-Based No Precautions Height and Weight Body Mass Index (BMI) 57.7 57.7 BMI Classification Obese Obese Vital Signs Temperature (97.8 F-99.1 F) 96.9 F L 97.4 F L Temperature Source Temporal Temporal Pulse Rate (60-100) 64 50 L Pulse Location Monitor Monitor Respiratory Rate (12-18) 16 18 Respiratory rate source Observation Observation Oxygen Delivery Method Room Air Blood Pressure (90/60-120/80) 171/111 H 180/108 H Blood Pressure Mean (mm Hg) 131 132 Source Monitor Monitor Position Sitting Blood Pressure Location Left Forearm History Since Last Visit- (Skip if this is Patient's initial visit) Have you changed medications since your No No last visit? Any new allergies or adverse reactions No No Had a fall/change in ADL's that may No No increase risk of falls Signs or symptoms of abuse and/or No No neglect since last visit Have you been in the hospital since your No No last visit? Has dressing in place as prescribed Yes Yes Has compression in place as prescribed N/A Yes Has offloadiing in place as prescribed N/A N/A Experienced any changes in pain level or No No management Left Footwear Regular Shoe Right Footwear Regular Shoe Pain Scale: 0-10 Numeric Is Patient Pain Free? Yes Yes - Nurse 1 - General Ulcer Measurement Start: 09/23/24 10:27 Freq: Status: Active Protocol: Activity Type Activity Date Activity User E-sign Co-sign Detail Recorded Client Recorded Date Recorded By Document 09/23/24 10:28 KW [id number] 09/23/24 10:31 KW Document 10/07/24 10:31 DL [id number] 10/07/24 10:37 DL 09/23/24 10/07/24 10:28 10:31 Wound Center Nurse 1 #11 LEFT MEDIAL THIGH -Current Size (cm) - Length 1.5 -Current Size (cm) - Width 1 -Current Size (cm) - Depth 0.2 -Total Square Cm 1.5 -Photo Taken Yes -Exudate Amt Medium -Exudate Type Serosanguineous -Wound Margin Thickened -Granulation Amt Large (67-100%) -Granulation Quality Pale,[place] -Necrosis Amt Small (1-33%) -Necrotic Tissue Type Adherent Slough -Structure Exposed N/A -Texture (Josephine-wound Skin Appearance) Scarring -Moisture (Josephine-wound Skin Appearance) No Abnormality -Color (Josephine-wound Skin Appearance) No Abnormality -Temperature (Josephine-wound Skin No Abnormality Appearance) (Pt Warm) -Tenderness on Palpation (Josephine-wound No Skin Appearance) -Ulcer Cleansing Soap and Water -Foul Odor after Cleansing No -Anesthetic Used 5% Lidocaine Gel 10. R medial thigh -Current Size (cm) - Length 3 3 -Current Size (cm) - Width 0.5 2 -Current Size (cm) - Depth 0.1 0.1 -Total Square Cm 1.5 6 -Date of Last Picture (Recall this 09/23/24 field) -Photo Taken Yes -Epithelialization Large 67-100% -Exudate Amt Small Medium -Exudate Type Serosanguineous Serosanguineous -Wound Margin Distinct, Thickened Outline Attached -Granulation Amt Large (67-100%) Large (67-100%) -Granulation Quality Red Pale,[place] -Necrosis Amt Small (1-33%) -Necrotic Tissue Type Adherent Slough -Structure Exposed N/A -Texture (Josephine-wound Skin Appearance) Assessed, Scarring Scarring -Moisture (Josephine-wound Skin Appearance) Assessed No Abnormality -Color (Josephine-wound Skin Appearance) Assessed No Abnormality -Temperature (Josephine-wound Skin No Abnormality No Abnormality Appearance) (Pt Warm) (Pt Warm) -Tenderness on Palpation (Josephine-wound No No Skin Appearance) -Ulcer Cleansing Rinsed/ Soap and Water Irrigated with Saline -Foul Odor after Cleansing No No -Anesthetic Used 5% Lidocaine 5% Lidocaine Gel Gel WC - Nurse 2 - General Ulcer CM Notes Start: 09/23/24 10:27 Freq: Status: Active Protocol: Activity Type Activity Date Activity User E-sign Co-sign Detail Recorded Client Recorded Date Recorded By Document 09/23/24 10:43 [id number] 09/23/24 10:51 GM Document 10/07/24 10:55 [id number] 10/07/24 11:03 JF 09/23/24 10/07/24 10:43 10:55 Wound Center Nurse 2 #11 LEFT MEDIAL THIGH -Time 10:50 10:56 -Correct Patient Yes Yes -Correct Side, Site, Position Yes Yes -Correct Procedure Yes Yes -Procedure Performed Yes Yes -Type of Procedure Debridement Debridement -Clinical Debridement Subcutaneous Subcutaneous -Tissue Removed Subcutaneous Subcutaneous -Post Debridement (cm) - Length 1.7 1.6 -Post Debridement (cm) - Width 0.8 0.6 -Post Debridement (cm) - Depth 0.2 0.2 -Total Square (Post) (cm) 1.36 0.96 -Area of Debridement (cm) - Length 1.7 1.6 -Area of Debridement (cm) - Width 0.8 0.6 -Total Square (Area) (cm) 1.36 0.96 -Tunneling No No -Undermining/Tunneling No No -Circular Undermining No No -Wound/Ulcer Outcome Not Healed Not Healed -Ulcer Cleansing Rinsed/ Rinsed/ Irrigated with Irrigated with Saline Saline -Foul Odor after Cleansing No No -Bioengineered Tissue No No -Bleeding Controlled with Pressure Pressure -Treatment Response Procedure Procedure Tolerated Well Tolerated Well -Offloading No -Debridement - Subq, 1st 20sq cm No Yes 10. R medial thigh -Time 10:43 10:57 -Correct Patient Yes Yes -Correct Side, Site, Position Yes Yes -Correct Procedure Yes Yes -Procedure Performed Yes Yes -Type of Procedure Debridement Debridement -Clinical Debridement Subcutaneous Subcutaneous -Tissue Removed Subcutaneous Subcutaneous -Post Debridement (cm) - Length 2.3 2.4 -Post Debridement (cm) - Width 1.0 1.7 -Post Debridement (cm) - Depth 0.1 0.1 -Total Square (Post) (cm) 2.30 4.08 -Area of Debridement (cm) - Length 2.3 2.4 -Area of Debridement (cm) - Width 1.0 1.7 -Total Square (Area) (cm) 2.30 4.08 -Tunneling No No -Undermining/Tunneling No No -Circular Undermining No No -Wound/Ulcer Outcome Not Healed Not Healed -Ulcer Cleansing Rinsed/ Rinsed/ Irrigated with Irrigated with Saline Saline -Foul Odor after Cleansing No No -Bioengineered Tissue No No -Bleeding Controlled with Pressure Silver Nitrate -Treatment Response Procedure Procedure Tolerated Well Tolerated Well -Offloading No -Debridement - Subq, 1st 20sq cm Yes No Pain Scale: 0-10 Numeric Is Patient Pain Free? Yes Yes - Nurse 3 - General Ulcer D/C NN Start: 09/23/24 10:27 Freq: Status: Active Protocol: Activity Type Activity Date Activity User E-sign Co-sign Detail Recorded Client Recorded Date Recorded By Document 09/23/24 10:58 KW [id number] 09/23/24 11:00 KW Document 10/07/24 11:08 KW [id number] 10/07/24 11:09 KW Edit Result 10/07/24 11:08 KW (1) [id number] 10/07/24 11:11 KW (1) ble - Compression Wrap => Desmond Wrap 09/23/24 10/07/24 10:58 11:08 Wound Care Center Nurse 3 #11 LEFT MEDIAL THIGH -Primary Dressing Applied Promogran Jaron Matter, Silicone Border Foam 4x4 -Primary Dressing Applied Promogran Jaron Matter, Silicone Border Foam 6x6 -Other Dressing moistened -Promogran Jaron Matter 1 1 -Silicone Border Foam 4x4 1 -Silicone Border Foam 6x6 1 10. R medial thigh -Primary Dressing Applied Silicone Border Foam 4x4 -Primary Dressing Applied Silicone Border Foam 6x6 -Other Dressing JARON moistened jaron -Silicone Border Foam 4x4 1 -Silicone Border Foam 6x6 1 ble -Compression Wrap Desmond Wrap -Other THIGH HIGH STOCKINGS Pain Scale: 0-10 Numeric Is Patient Pain Free? Yes Yes - Visit Discharge Discharge Condition Stable Stable Ambulatory Status Ambulatory Ambulatory Transportation Private Auto Private Auto Medication Reconcilliation completed & No No provided to patient/care provider Clinical Summary of Care Provided Yes Yes Additional Wound Wound debrided: medial thigh wound Laterality: Left Type of Debridement: Excisional debridement Anesthesia Used: 5% Lidocaine Gel Depth: Down to and including healthy tissue and in the subcutaneous layer Percentage of wound debrided: 100 Instrument Used: 3mm curette Tissue Removed: Non viable tissue and slough Severity: Limited To Skin Breakdown Amount of bleeding with debridement: Mild Bleeding Controlled with: Pressure and Compression and gauze Patient tolerated procedure: Patient tolerated procedure well Assessment/Plan Assessment/Plan (1) Nonhealing ulcer of right lower extremity with fat layer exposed: CODE(S): L97.912 - Non-pressure chronic ulcer of unspecified part of right lower leg with fat layer exposed (2) Wound of thigh: CODE(S): S71.109A - Unspecified open wound, unspecified thigh, initial encounter (3) Edema of both lower extremities: CODE(S): R60.0 - Localized edema (4) Chronic acquired lymphedema: CODE(S): I89.0 - Lymphedema, not elsewhere classified (5) Morbid obesity: CODE(S): E66.01 - Morbid (severe) obesity due to excess calories (6) History of bariatric surgery: CODE(S): Z98.84 - Bariatric surgery status PLAN: Plan Patient evaluated at the wound healing center today. His left thigh wound is stable. His right thigh ulcer is stable. Wound care - Place Moistened Jaron and cover with gauze or Mineral SAP daily after washing with soap and water. Compression - He will continue to wear his thigh high compression. Since he now has wounds/ulcers on bilateral thighs, will try to order him thigh high compression stockings to help with his lymphedema. A wound culture was obtained today.? A positive culture will necessitate antibiotic therapy. Will have him follow up in 2 weeks. Instructed to call or come in sooner if develop any concerns.
--- NOTE | 2024-10-08 09:28 | WC ---
PHOTO 10/07/24 RIGHT MEDIAL THIGH
--- NOTE | 2024-10-08 09:29 | WC ---
PHOTO 10/07/24 LEFT MEDIAL THIGH
== END 2024-10-11 23:59 | disposition home or self-care (01) ==
LOC: WC 10:30
PROVIDERS: PCP Nurse Practitioner Family; Referring Provider Internal Medicine; Visit Provider Nurse Practitioner Family
DX: L97.112 Non-pressure chronic ulcer of right thigh with fat layer exposed (principal); E66.01 Morbid (severe) obesity due to excess calories; Z68.43 Body mass index [BMI] 50.0-59.9, adult; S71.102A Unspecified open wound, left thigh, initial encounter; X58.XXXA Exposure to other specified factors, initial encounter; L98.7 Excessive and redundant skin and subcutaneous tissue; I89.0 Lymphedema, not elsewhere classified; R60.0 Localized edema; M79.3 Panniculitis, unspecified; Z79.899 Other long term (current) drug therapy; Z86.72 Personal history of thrombophlebitis; Z98.84 Bariatric surgery status
CPT/HCPCS: 11042

== ENCOUNTER 2024-12-09 14:45 | Outpatient (RCR) | payer MEDICAID, SELFPAY ==
[2024-10-12 00:29] VITALS: BP 180/108; PULSE 50; RESP 18; TEMP 36.3; BMI 57.7
[2024-11-27 14:48] VITALS: BP 131/84; PULSE 58; RESP 20; TEMP 36.4; BMI 57.7
--- NOTE | 2024-11-27 16:02 | PN.PCM_ITS ---
History of Present Illness Date of Service: 11/27/24 Chief Complaint: Nonhealing ulcer left medial thigh. History of Wound: 48 year old man presents with areas of redundant skin and subcutaneous tissue in his bilateral medial thighs and abdominal panniculus with associated panniculitis. There is abdominal wall skin crease intertrigo and bilateral medial thigh intertrigo for which he uses powders for relief. This excess skin and subcutaneous tissue was the result of bariatric surgery done in [place] in May,. He lost about 250 lbs and his current weight is about 440 lbs. He has a history of lower extremity lymphedema resulting from the extreme body weight and has persistent dependent edema in his medial thighs which aggravates his symptomatology. He denies trauma. He denies fever. Both areas bother him but the medial thighs are his initial priority as he has trouble with ambulating. We received medical approval from his insurance company for his thigh surgery. Surgery 09/22/20 - Excision redundant skin and subcutaneous tissue left medial and posterior thigh with dermolipectomy. Surgery 10/05/22 - Surgical preparation right medial and posterior thigh with excision redundant skin and subcutaneous tissue with radical dermolipectomy. He went to [facility] for almost a month, he had a wound VAC while he was at [facility]. Hgb 8.7 on . Repeat Hgb 8.8 on 10/25/22 at [facility]. On iron supplementation but with his history of gastric bypass, that may impact his abso rption of the iron. Rechecked on 12/12/22 Hgb 10.5. Arterial studies done on 03/23/23 which have triphasic Doppler waveforms are noted at ankle level bilaterally. Pulse-volume recordings appear satisfactory at calf, ankle, and digital levels bilaterally. Right EDDY= 1.27, Left EDDY= 1.28 There is no evidence of significant arterial occlusive disease in the lower extremities bilaterally. Vascular studies done on 03/23/23 show sapheno-femoral junctions are bilaterally incompetent . Acute and chronic superficial thrombophlebitis is noted in the right great saphenous vein above the knee. Chronic venous changes are noted in the left great saphenous vein above the knee. The right great saphenous vein appears incompetent below the knee. The left great saphenous vein appears segmentally incompetent. Small saphenous veins are patent and incompetent bilaterally. Accessory saphenous veins in the right proximal and mid-calf are incompetent. Accessory saphenous veins at the left knee, proximal calf, and mid-calf are incompetent. An incompetent correctional officer chief vein is noted in the right calf, located 10 centimeters proximal to the right medial malleolus. An incompetent correctional officer chief vein is noted in the left calf, located 12 centimeters proximal to the left medial malleolus. Wound culture obtained at [facility] on 07/11/24 which was positive for MRSA and Proteus mirabilis. He was treated with Doxycycline and Levaquin. Wound culture obtained 10/07/24 of bilateral ulcers which was positive for MRSA and VRE. He was treated with Linezolid. Biopsy done by Dr. Freed on 08/05/24 of right medial thigh ulcer showed Ulceration with acute and chronic inflammation and adherent fibrinoid material. Negative for fungal organisms. Today he denies fever and chills and states his appetite is good. Progress of Wound: His right medial thigh ulcer is stable. The left medial leg ulcer is slightly smaller. He has completed the Linezolid for his positive wound cultures of MRSA and VRE from 10/07/24. He is frustrated that these ulcers have not healed. Objective Data Objective Data Vital Signs: Vital Signs Temp Pulse Resp BP 97.5 F L 58 L 20 H 131/84 H 11/27/24 14:48 11/27/24 14:48 11/27/24 14:48 11/27/24 14:48 Weight: 500 lb Body Mass Index (BMI) 57.7 Charges/Coding Procedures Integumentary [id number]: [id number] Margarita subq tissue 20 sq cm/< Debridement Note Debridement Note Wound debrided: Right medial thigh ulcer Laterality: Right Wound Grade/Stage: 3 Type of Debridement: Excisional debridement Anesthesia Used: 5% Lidocaine Gel Depth: Down to and including healthy tissue and in the subcutaneous layer Percentage of wound debrided: 100 Instrument Used: 5mm curette Tissue Removed: Devitalized tissue and slough Severity: Fat Layer Exposed Amount of bleeding with debridement: Mild Bleeding Controlled with: Pressure and Compression and gauze Patient tolerated procedure: Patient tolerated procedure well Post-Debridement Measurements and Additional Note: Post-Debridement Measurements/Treatment ACOSTA - Nurse 1 - General Ulcer Assessment Start: 11/27/24 14:45 Freq: Status: Active Protocol: WILLIAM Activity Type Activity Date Activity User E-sign Co-sign Detail Recorded Client Recorded Date Recorded By Document 11/27/24 14:48 DL [id number] 11/27/24 14:54 DL 11/27/24 14:48 WC - Today's Visit Information Type of service 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/DRIP PUMPER ) Arrival Mode Ambulatory Transfer Assistance None Patient Identification Verified (Name & Yes ) Patient Requires Transmission-Based No Precautions Height and Weight Body Mass Index (BMI) 57.7 BMI Classification Obese Vital Signs Temperature (97.8 F-99.1 F) 97.5 F L Temperature Source Temporal Pulse Rate (60-100) 58 L Pulse Location Monitor Respiratory Rate (12-18) 20 H Respiratory rate source Observation Blood Pressure (90/60-120/80) 131/84 H Blood Pressure Mean (mm Hg) 99 Source Monitor History Since Last Visit- (Skip if this is Patient's initial visit) Have you changed medications since your No last visit? Any new allergies or adverse reactions No Had a fall/change in ADL's that may No increase risk of falls Signs or symptoms of abuse and/or No neglect since last visit Have you been in the hospital since your No last visit? Has dressing in place as prescribed Yes Has compression in place as prescribed Yes Has offloadiing in place as prescribed N/A Experienced any changes in pain level or No management Pain Scale: 0-10 Numeric Is Patient Pain Free? Yes - Nurse 1 - General Ulcer Measurement Start: 11/27/24 14:45 Freq: Status: Active Protocol: Activity Type Activity Date Activity User E-sign Co-sign Detail Recorded Client Recorded Date Recorded By Document 11/27/24 14:48 DL [id number] 11/27/24 14:54 DL 11/27/24 14:48 Wound Center Nurse 1 #11 LEFT MEDIAL THIGH -Current Size (cm) - Length 1 -Current Size (cm) - Width 0.5 -Current Size (cm) - Depth 0.1 -Total Square Cm 0.5 -Exudate Amt Medium -Exudate Type Serosanguineous -Wound Margin Thickened & Rolled Under -Granulation Amt None Present (0 %) -Necrosis Amt Large (67-100%) -Necrotic Tissue Type Adherent Slough -Structure Exposed N/A -Texture (Josephine-wound Skin Appearance) Scarring -Moisture (Josephine-wound Skin Appearance) No Abnormality -Color (Josephine-wound Skin Appearance) No Abnormality -Temperature (Josephine-wound Skin No Abnormality Appearance) (Pt Warm) -Tenderness on Palpation (Josephine-wound No Skin Appearance) -Ulcer Cleansing Rinsed/ Irrigated with Saline -Foul Odor after Cleansing No -Anesthetic Used 5% Lidocaine Gel 10. R medial thigh -Current Size (cm) - Length 1.5 -Current Size (cm) - Width 0.8 -Current Size (cm) - Depth 0.1 -Total Square Cm 1.20 -Exudate Amt Medium -Exudate Type Serosanguineous -Wound Margin Thickened -Granulation Amt None Present (0 %) -Necrosis Amt Large (67-100%) -Necrotic Tissue Type Adherent Slough -Structure Exposed N/A -Texture (Josephine-wound Skin Appearance) Scarring -Moisture (Josephine-wound Skin Appearance) No Abnormality -Color (Josephine-wound Skin Appearance) No Abnormality -Temperature (Josephine-wound Skin No Abnormality Appearance) (Pt Warm) -Ulcer Cleansing Rinsed/ Irrigated with Saline -Foul Odor after Cleansing No -Anesthetic Used 5% Lidocaine Gel WC - Nurse 2 - General Ulcer CM Notes Start: 11/27/24 14:45 Freq: Status: Active Protocol: Activity Type Activity Date Activity User E-sign Co-sign Detail Recorded Client Recorded Date Recorded By Document 11/27/24 15:06 [id number] 11/27/24 15:13 11/27/24 15:06 Wound Center Nurse 2 #11 LEFT MEDIAL THIGH -Time 15:08 -Correct Patient Yes -Correct Side, Site, Position Yes -Correct Procedure Yes -Procedure Performed Yes -Type of Procedure Debridement -Clinical Debridement Subcutaneous -Tissue Removed Subcutaneous -Tunneling No -Undermining/Tunneling No -Circular Undermining No -Wound/Ulcer Outcome Not Healed -Ulcer Cleansing Rinsed/ Irrigated with Saline -Foul Odor after Cleansing No -Bioengineered Tissue No -Bleeding Controlled with Pressure -Treatment Response Procedure Tolerated Well -Offloading No -Debridement - Subq, 1st 20sq cm Yes 10. R medial thigh -Time 15:09 -Correct Patient Yes -Correct Side, Site, Position Yes -Correct Procedure Yes -Procedure Performed Yes -Type of Procedure Debridement -Clinical Debridement Subcutaneous -Tissue Removed Subcutaneous -Post Debridement (cm) - Length 1.5 -Post Debridement (cm) - Width 1.0 -Post Debridement (cm) - Depth 0.2 -Total Square (Post) (cm) 1.50 -Area of Debridement (cm) - Length 1.5 -Area of Debridement (cm) - Width 1.0 -Total Square (Area) (cm) 1.50 -Tunneling No -Undermining/Tunneling No -Circular Undermining No -Wound/Ulcer Outcome Not Healed -Ulcer Cleansing Rinsed/ Irrigated with Saline -Foul Odor after Cleansing No -Bioengineered Tissue No -Bleeding Controlled with Pressure -Treatment Response Procedure Tolerated Well -Debridement - Subq, 1st 20sq cm No Pain Scale: 0-10 Numeric Is Patient Pain Free? Yes WC - Nurse 3 - General Ulcer D/C NN Start: 11/27/24 14:45 Freq: Status: Active Protocol: Activity Type Activity Date Activity User E-sign Co-sign Detail Recorded Client Recorded Date Recorded By Document 11/27/24 15:20 DL [id number] 11/27/24 15:21 DL 11/27/24 15:20 Wound Care Center Nurse 3 #11 LEFT MEDIAL THIGH -Ulcer Cleansing Rinsed/ Irrigated with Saline -Foul Odor after Cleansing No -Primary Dressing Applied Promogran Rebecca Matter, Silicone Border Foam 4x4 -Promogran Rebecca Matter 1 -Silicone Border Foam 4x4 1 10. R medial thigh -Ulcer Cleansing Rinsed/ Irrigated with Saline -Foul Odor after Cleansing No -Primary Dressing Applied Silicone Border Foam 4x4 -Other Dressing rebecca -Silicone Border Foam 4x4 1 Treatment Response Procedure Tolerated Well Pain Scale: 0-10 Numeric Is Patient Pain Free? No WC - Visit Discharge Discharge Condition Stable Ambulatory Status Ambulatory Transportation Private Auto Additional Wound Wound debrided: medial thigh wound Laterality: Left Type of Debridement: Excisional debridement Anesthesia Used: 5% Lidocaine Gel Depth: Down to and including healthy tissue and in the subcutaneous layer Percentage of wound debrided: 100 Instrument Used: 5mm curette Tissue Removed: Non viable tissue and slough Severity: Fat Layer Exposed Amount of bleeding with debridement: Mild Bleeding Controlled with: Pressure and Compression and gauze Patient tolerated procedure: Patient tolerated procedure well Assessment/Plan Assessment/Plan (1) Nonhealing ulcer of right lower extremity with fat layer exposed: CODE(S): L97.912 - Non-pressure chronic ulcer of unspecified part of right lower leg with fat layer exposed (2) Wound of thigh: CODE(S): S71.109A - Unspecified open wound, unspecified thigh, initial encounter (3) Edema of both lower extremities: CODE(S): R60.0 - Localized edema (4) Chronic acquired lymphedema: CODE(S): I89.0 - Lymphedema, not elsewhere classified (5) Morbid obesity: CODE(S): E66.01 - Morbid (severe) obesity due to excess calories (6) History of bariatric surgery: CODE(S): Z98.84 - Bariatric surgery status PLAN: Plan Patient evaluated at the wound healing center today. His left thigh wound is stable. His right thigh ulcer is stable. Wound care - Place Moistened Rebecca and cover with gauze or [place] SAP daily afte r washing with soap and water. Compression - He will continue to wear his thigh high compression. Since he now has wounds/ulcers on bilateral thighs, will try to order him thigh high compression stockings to help with his lymphedema. Will refer him to Dr. Freed for further evaluation and possible surgical options to get these areas healed. Will have him follow up in 1-2 weeks. Instructed to call or come in sooner if develop any concerns.
[2024-12-09 14:35] VITALS: PULSE 62; RESP 18; TEMP 36.6; BMI 57.7
--- NOTE | 2024-12-09 15:26 | PCM.WC.PN ---
History of Present Illness Date of Service: 12/09/24 Chief Complaint: Nonhealing ulcer left medial thigh. History of Wound: Homero Bobby is a delightful 48-year-old man presents with areas of redundant skin and subcutaneous tissue in his bilateral medial thighs and abdominal panniculus with associated panniculitis. This excess skin and subcutaneous tissue was the result of bariatric surgery done in [place] in May,. He lost about 250 lbs and his current weight is about 440 lbs. he subsequently underwent the following surgery with Dr. Xavi Kinney for body count: Surgery 09/22/20 - Excision redundant skin and subcutaneous tissue left medial and posterior thigh with dermolipectomy. Surgery 10/05/22 - Surgical preparation right medial and posterior thigh with excision redundant skin and subcutaneous tissue with radical dermolipectomy. He went to [facility] for almost a month, he had a wound VAC while he was at [facility]. Arterial studies done on 03/23/23 which have triphasic Doppler waveforms are noted at ankle level bilaterally. Pulse-volume recordings appear satisfactory at calf, ankle, and digital levels bilaterally. Right EDDY= 1.27, Left EDDY= 1.28 There is no evidence of significant arterial occlusive disease in the lower extremities bilaterally. Vascular studies done on 03/23/23 show sapheno-femoral junctions are bilaterally incompetent . Acute and chronic superficial thrombophlebitis is noted in the right great saphenous vein above the knee. Chronic venous changes are noted in the left great saphenous vein above the knee. The right great saphenous vein appears incompetent below the knee. The left great saphenous vein appears segmentally incompetent. Small saphenous veins are patent and incompetent bilaterally. Accessory saphenous veins in the right proximal and mid-calf are incompetent. Accessory saphenous veins at the left knee, proximal calf, and mid-calf are incompetent. An incompetent slide forming machine tender vein is noted in the right calf, located 10 centimeters proximal to the right medial malleolus. An incompetent slide forming machine tender vein is noted in the left calf, located 12 centimeters proximal to the left medial malleolus. Biopsy done [place] (Dr. Freed) 08/05/24 of right medial thigh ulcer showed Ulceration with acute and chronic inflammation and adherent fibrinoid material. Negative for fungal organisms. No signs of malignancy. Progress of Wound: Current encounter , 09 December 2024 : Today he denies fever and chills and states his appetite is good. Reports episodic swelling of the lower extremities. Of note, recent labs reviewed and he has albumin over 3.5 and A1c of 5.1 His cholesterol was over 200 and his LDL was elevated as well Objective Data Objective Data Vital Signs: Vital Signs Temp Pulse Resp BP 97.8 F 62 18 131/84 H 12/09/24 14:35 12/09/24 14:35 12/09/24 14:35 11/27/24 14:48 Weight: 500 lb Body Mass Index (BMI) 57.7 Charges/Coding Procedures Integumentary [id number]: [id number] Margarita subq tissue 20 sq cm/< Physical Exam Narrative Left medial thigh wound: 2 x 0.8 cm, and 0.1 cm deep. Right medial thigh wound: 1.5 x 0.5 cm and 0.2 cm deep Both wounds are subcutaneous and in the central portion of a previous surgical scar from the medial thigh lift. There is significant tight hypertrophic scar around both wounds. Debridement Note Debridement Note Wound debrided: Right medial thigh wound Laterality: Right Wound Grade/Stage: 3 Type of Debridement: Excisional debridement Anesthesia Used: 4% Lidocaine Solution Depth: Down to and including healthy tissue and in the subcutaneous layer Percentage of wound debrided: 100 Instrument Used: 7mm curette Tissue Removed: Necrotic fibrinous exudate and hypertrophic granulation tissue Severity: Fat Layer Exposed Amount of bleeding with debridement: Mild Bleeding Controlled with: Compression and gauze Patient tolerated procedure: Patient tolerated procedure well Post-Debridement Measurements and Additional Note: Post-Debridement Measurements/Treatment - Nurse 1 - General Ulcer Assessment Start: 11/27/24 14:45 Freq: Status: Active Protocol: WILLIAM Activity Type Activity Date Activity User E-sign Co-sign Detail Recorded Client Recorded Date Recorded By Document 11/27/24 14:48 DL [id number] 11/27/24 14:54 DL Document 12/09/24 14:35 KW [id number] 12/09/24 14:41 KW 11/27/24 12/09/24 14:48 14:35 - Today's Visit Information Type of service Follow-up Visit 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 (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 ) ) Arrival Mode Ambulatory Ambulatory Transfer Assistance None None Patient Identification Verified (Name & Yes Yes ) Patient Requires Transmission-Based No No Precautions Height and Weight Body Mass Index (BMI) 57.7 57.7 BMI Classification Obese Obese Vital Signs Temperature (97.8 F-99.1 F) 97.5 F L 97.8 F Temperature Source Temporal Temporal Pulse Rate (60-100) 58 L 62 Pulse Location Monitor Monitor Respiratory Rate (12-18) 20 H 18 Respiratory rate source Observation Observation Blood Pressure (90/60-120/80) 131/84 H Blood Pressure Mean (mm Hg) 99 Source Monitor Comment Pt refused BP today. History Since Last Visit- (Skip if this is Patient's initial visit) Have you changed medications since your No No last visit? Any new allergies or adverse reactions No No Had a fall/change in ADL's that may No No increase risk of falls Signs or symptoms of abuse and/or No No neglect since last visit Have you been in the hospital since your No No last visit? Has dressing in place as prescribed Yes Yes Has compression in place as prescribed Yes Yes Has offloadiing in place as prescribed N/A N/A Experienced any changes in pain level or No No management Pain Scale: 0-10 Numeric Is Patient Pain Free? Yes Yes WC - Nurse 1 - General Ulcer Measurement Start: 11/27/24 14:45 Freq: Status: Active Protocol: Activity Type Activity Date Activity User E-sign Co-sign Detail Recorded Client Recorded Date Recorded By Document 11/27/24 14:48 DL [id number] 11/27/24 14:54 DL Document 12/09/24 14:35 KW [id number] 12/09/24 14:41 KW 11/27/24 12/09/24 14:48 14:35 Wound Center Nurse 1 #11 LEFT MEDIAL THIGH -Current Size (cm) - Length 1 1.6 -Current Size (cm) - Width 0.5 0.8 -Current Size (cm) - Depth 0.1 0.1 -Total Square Cm 0.5 1.28 -Photo Taken Yes -Exudate Amt Medium None Present -Exudate Type Serosanguineous -Wound Margin Thickened & Thickened Rolled Under -Granulation Amt None Present (0 Large (67-100%) %) -Granulation Quality [place] -Necrosis Amt Large (67-100%) Small (1-33%) -Necrotic Tissue Type Adherent Slough Adherent Slough -Structure Exposed N/A N/A -Texture (Josephine-wound Skin Appearance) Scarring Scarring -Moisture (Josephine-wound Skin Appearance) No Abnormality No Abnormality -Color (Josephine-wound Skin Appearance) No Abnormality No Abnormality -Temperature (Josephine-wound Skin No Abnormality No Abnormality Appearance) (Pt Warm) (Pt Warm) -Tenderness on Palpation (Josephine-wound No No Skin Appearance) -Ulcer Cleansing Rinsed/ Rinsed/ Irrigated with Irrigated with Saline Saline -Foul Odor after Cleansing No No -Anesthetic Used 5% Lidocaine 4% Lidocaine Gel Solution 10. R medial thigh -Current Size (cm) - Length 1.5 2 -Current Size (cm) - Width 0.8 1 -Current Size (cm) - Depth 0.1 0.2 -Total Square Cm 1.20 2 -Photo Taken Yes -Exudate Amt Medium Small -Exudate Type Serosanguineous Serosanguineous -Wound Margin Thickened Thickened -Granulation Amt None Present (0 Large (67-100%) %) -Granulation Quality [place] -Necrosis Amt Large (67-100%) Small (1-33%) -Necrotic Tissue Type Adherent Slough Adherent Slough -Structure Exposed N/A N/A -Texture (Josephine-wound Skin Appearance) Scarring Scarring -Moisture (Josephine-wound Skin Appearance) No Abnormality No Abnormality -Color (Josephine-wound Skin Appearance) No Abnormality No Abnormality -Temperature (Josephine-wound Skin No Abnormality No Abnormality Appearance) (Pt Warm) (Pt Warm) -Tenderness on Palpation (Josephine-wound No Skin Appearance) -Ulcer Cleansing Rinsed/ Rinsed/ Irrigated with Irrigated with Saline Saline -Foul Odor after Cleansing No No -Anesthetic Used 5% Lidocaine 5% Lidocaine Gel Gel WC - Nurse 2 - General Ulcer CM Notes Start: 11/27/24 14:45 Freq: Status: Active Protocol: Activity Type Activity Date Activity User E-sign Co-sign Detail Recorded Client Recorded Date Recorded By Document 11/27/24 15:06 [id number] 11/27/24 15:13 Document 12/09/24 14:50 [id number] 12/09/24 15:01 11/27/24 12/09/24 15:06 14:50 Wound Center Nurse 2 #11 LEFT MEDIAL THIGH -Time 15:08 14:58 -Correct Patient Yes Yes -Correct Side, Site, Position Yes Yes -Correct Procedure Yes Yes -Procedure Performed Yes Yes -Type of Procedure Debridement Debridement -Clinical Debridement Subcutaneous Subcutaneous -Tissue Removed Subcutaneous Subcutaneous -Post Debridement (cm) - Length 2.0 -Post Debridement (cm) - Width 0.8 -Post Debridement (cm) - Depth 0.1 -Total Square (Post) (cm) 1.60 -Area of Debridement (cm) - Length 2.0 -Area of Debridement (cm) - Width 0.8 -Total Square (Area) (cm) 1.60 -Tunneling No No -Undermining/Tunneling No No -Circular Undermining No No -Wound/Ulcer Outcome Not Healed Not Healed -Ulcer Cleansing Rinsed/ Rinsed/ Irrigated with Irrigated with Saline Saline -Foul Odor after Cleansing No No -Bioengineered Tissue No No -Bleeding Controlled with Pressure Pressure -Treatment Response Procedure Procedure Tolerated Well Tolerated Well -Offloading No No -Debridement - Subq, 1st 20sq cm Yes No 10. R medial thigh -Time 15:09 15:00 -Correct Patient Yes Yes -Correct Side, Site, Position Yes Yes -Correct Procedure Yes Yes -Procedure Performed Yes Yes -Type of Procedure Debridement Debridement -Clinical Debridement Subcutaneous Subcutaneous -Tissue Removed Subcutaneous Subcutaneous -Post Debridement (cm) - Length 1.5 1.5 -Post Debridement (cm) - Width 1.0 0.5 -Post Debridement (cm) - Depth 0.2 0.2 -Total Square (Post) (cm) 1.50 0.75 -Area of Debridement (cm) - Length 1.5 1.5 -Area of Debridement (cm) - Width 1.0 0.5 -Total Square (Area) (cm) 1.50 0.75 -Tunneling No No -Undermining/Tunneling No No -Circular Undermining No No -Wound/Ulcer Outcome Not Healed Not Healed -Ulcer Cleansing Rinsed/ Rinsed/ Irrigated with Irrigated with Saline Saline -Foul Odor after Cleansing No No -Bioengineered Tissue No No -Bleeding Controlled with Pressure Pressure -Treatment Response Procedure Procedure Tolerated Well Tolerated Well -Offloading No -Debridement - Subq, 1st 20sq cm No Yes Pain Scale: 0-10 Numeric Is Patient Pain Free? Yes Yes WC - Nurse 3 - General Ulcer D/C NN Start: 11/27/24 14:45 Freq: Status: Active Protocol: Activity Type Activity Date Activity User E-sign Co-sign Detail Recorded Client Recorded Date Recorded By Document 11/27/24 15:20 DL [id number] 11/27/24 15:21 DL Document 12/09/24 15:12 DL [id number] 12/09/24 15:13 DL 11/27/24 12/09/24 15:20 15:12 Wound Care Center Nurse 3 #11 LEFT MEDIAL THIGH -Ulcer Cleansing Rinsed/ Rinsed/ Irrigated with Irrigated with Saline Saline -Foul Odor after Cleansing No -Primary Dressing Applied Promogran Promogran Rebecca Matter, Rebecca Matter, Silicone Border Silicone Border Foam 4x4 Foam 4x4 -Promogran Rebecca Matter 1 1 -Silicone Border Foam 4x4 1 1 10. R medial thigh -Ulcer Cleansing Rinsed/ Rinsed/ Irrigated with Irrigated with Saline Saline -Foul Odor after Cleansing No No -Primary Dressing Applied Silicone Border Silicone Border Foam 4x4 Foam 4x4 -Other Dressing rebecca rebecca -Silicone Border Foam 4x4 1 1 Treatment Response Procedure Procedure Tolerated Well Tolerated Well Pain Scale: 0-10 Numeric Is Patient Pain Free? No Yes WC - Visit Discharge Discharge Condition Stable Stable Ambulatory Status Ambulatory Ambulatory Transportation Private Auto Private Auto Additional Wound Wound debrided: Left medial thigh wound Laterality: Left Wound Grade/Stage: 3 Type of Debridement: Excisional debridement Anesthesia Used: 4% Lidocaine Solution Depth: in the subcutaneous layer Percentage of wound debrided: 100 Instrument Used: 7mm curette Tissue Removed: Necrotic fibrinous exudate and hypertrophic granulation tissue Severity: Fat Layer Exposed Amount of bleeding with debridement: Moderate Bleeding Controlled with: Compression and gauze Patient tolerated procedure: Patient tolerated procedure well Assessment/Plan Assessment/Plan (1) Nonhealing ulcer of right lower extremity with fat layer exposed: CODE(S): L97.912 - Non-pressure chronic ulcer of unspecified part of right lower leg with fat layer exposed (2) Wound of thigh: CODE(S): S71.109A - Unspecified open wound, unspecified thigh, initial encounter (3) Edema of both lower extremities: CODE(S): R60.0 - Localized edema (4) Chronic acquired lymphedema: CODE(S): I89.0 - Lymphedema, not elsewhere classified PLAN: Secondary to obesity (5) Morbid obesity: CODE(S): E66.01 - Morbid (severe) obesity due to excess calories (6) History of bariatric surgery: CODE(S): Z98.84 - Bariatric surgery status PLAN: Plan Wound care - Place Moistened Rebecca and cover with gauze or [place] SAP daily after washing with soap and water. Compression - He will continue to wear his thigh high compression. Since he now has wounds/ulcers on bilateral thighs, will try to order him thigh high compression stockings to help. Patient is likely having episodic swelling which is pulling on the tight scar from his previous surgery. This is leading to these wounds. Both wounds basically healed this winter and then came back. Patient has not seen his heart doctor (Dr. Liu) and approximately 1.5 years. He could benefit from optimizing his right-sided heart failure in the setting of chronic lower extremity wounds. I am referring him back to Dr. Liu. He can also address the elevations in cholesterol from a heart health standpoint. The other component of this is that he has not had lower extremity venous or arterial studies in nearly 2 years. I am ordering ABIs and lower extremity venous duplex ultrasonography. If he has very proximal disease, he may be having venous congestion in his thighs and this could be contributing to these problems. He could also have an inflow issue. The studies need to be repeated. Continue wound care as noted above and we will follow-up in 2-week.
--- NOTE | 2024-12-10 11:28 | WC ---
PHOTO 12/09/24 RIGHT [facility]
--- NOTE | 2024-12-11 11:22 | WC ---
PHOTO 12/09/34 LEFT MEDIAL THIGH
== END 2024-12-09 23:59 | disposition home or self-care (01) ==
LOC: WC 14:45
PROVIDERS: PCP Nurse Practitioner Family; Referring Provider Internal Medicine; Visit Provider Nurse Practitioner Family
DX: L97.122 Non-pressure chronic ulcer of left thigh with fat layer exposed (principal); E66.01 Morbid (severe) obesity due to excess calories; Z68.43 Body mass index [BMI] 50.0-59.9, adult; I89.0 Lymphedema, not elsewhere classified; R60.0 Localized edema; Z98.84 Bariatric surgery status; M79.3 Panniculitis, unspecified
CPT/HCPCS: 11042

== ENCOUNTER 2025-01-20 13:05 | Outpatient (RCR) | payer MEDICAID, SELFPAY | END 2025-02-08 23:59 | disposition home or self-care (01) | LOC: WC 13:05 | PROVIDERS: PCP Nurse Practitioner Family; Referring Provider Surgery Plastic and Reconstructive Surgery; Visit Provider Surgery Plastic and Reconstructive Surgery | DX: Z09 Encounter for follow-up examination after completed treatment for conditions other than malignant neoplasm (principal) ==

== ENCOUNTER → 2025-02-05 | Outpatient (CLI) | payer MEDICAID, SELFPAY ==
[2025-02-05 16:38] LABS: Absolute Lymphocyte Count 1.34 X10^3/uL (0.83-4.51); Absolute Neutrophil Count 5.4 X10^3/uL (2.0-7.7); Basophil# 0.04 X10^3/uL; Basophil% 0.5 % (0-1); Eosinophil# 0.13 X10^3/uL; Eosinophils% 1.7 % (0-5); Hematocrit 38.3 % (40-54); Hemoglobin 12.9 g/dL (13.0-16.5); Lymphocyte # 1.34 X10^3/ul (0.83-4.51); Lymphocyte % 17.8 % (19-41); Mean Corp Hgb Conc 33.7 g/dL (32-36); Mean Corpuscular Volume 77.2 fL (80-94); Mean Platelet Vol. 9.3 fl (6.2-12.0); Monocyte# 0.59 X10^3/uL; Monocyte% 7.8 % (0-10); NRBC Flagged by Analyzer 0 % (0-5); Neutrophil # 5.42 X10^3/uL (2.7-7.7); Neutrophil % 71.9 % (47-70); Platelet Count 269 K/mm3 (150-450); RBC Distribution Width CV 16.1 % (11.6-14.6); RBC Distribution Width SD 45.1 fl (35.1-43.9); Red Blood Count 4.96 M/mm3 (4.6-6.2); White Blood Count 7.5 K/mm3 (4.4-11.0)
[2025-02-05 17:31] LABS: Cholesterol 204 mg/dL (<=200); High Density Lipoprotein 35 mg/dL; Low Density Lipoprotein Calc. 142 mg/dL; PSA,Total - Annual Screen 1.95 ng/mL (0.02-4.00); Thyroid Stim Hormone (TSH) 0.748 uIU/mL (0.300-4.200); Triglycerides 139 mg/dL; Very Low Density Lipoprotein 28 mg/dL (5-40); Vitamin B12 644 pg/mL (180-914); Vitamin D,25 Hydroxy 22.2 ng/mL (30-100); cholesterol:hdl ratio screen 5.91
[2025-02-05 17:33] LABS: ALB/GLOB Ratio 1.3 RATIO (0.9-2.4); AST(SGOT) 28 U/L (<=37); Alanine Aminotransfer ALT/SGPT 27 U/L (<=46); Albumin, Serum 4.1 g/dL (3.5-5.0); Alkaline Phosphatase 91 U/L (40-129); Anion Gap 10 (5-15); BUN 11 mg/dL (4-19); BUN/Creat Ratio 11.4 RATIO (10-20); Calcium,Total 9.2 mg/dL (7.6-11.0); Carbon Dioxide 24.7 mmol/L (21.0-32.0); Chloride 104 mmol/L (98-108); EST Glomerular Filtration Rate 92 (>60); Glucose 95 mg/dL (70-99); Potassium 4.4 mmol/L (3.3-5.1); Protein, Total 7.1 g/dL (5.9-8.4); Sodium Level 139 mmol/L (133-145); Total Bilirubin 0.76 mg/dL (0.00-1.30)
== END | disposition home or self-care (01) ==
LOC: VSLAB 14:33
PROVIDERS: PCP Nurse Practitioner Family; Visit Provider Nurse Practitioner Family
DX: Z00.00 Encounter for general adult medical examination without abnormal findings (principal); Z12.5 Encounter for screening for malignant neoplasm of prostate; E56.9 Vitamin deficiency, unspecified
CPT/HCPCS: 84153; 36415; 80053; 80061; 82306; 82607; 84443; 85025; G0103

== ENCOUNTER 2025-02-10 13:47 | Outpatient (RCR) | payer MEDICAID, SELFPAY ==
[2025-02-10 13:51] VITALS: PULSE 56; RESP 18; TEMP 36.6
--- NOTE | 2025-02-10 16:44 | PN.PCM_ITS ---
History of Present Illness Date of Service: 02/10/25 Chief Complaint: Nonhealing ulcer left medial thigh. History of Wound: Homero Bobby is a delightful 48-year-old man presents with areas of redundant skin and subcutaneous tissue in his bilateral medial thighs and abdominal panniculus with associated panniculitis. This excess skin and subcutaneous tissue was the result of bariatric surgery done in [place] in May,. He lost about 250 lbs and his current weight is about 440 lbs. he subsequently underwent the following surgery with Dr. Xavi Kinney for body count: Surgery 09/22/20 - Excision redundant skin and subcutaneous tissue left medial and posterior thigh with dermolipectomy. Surgery 10/05/22 - Surgical preparation right medial and posterior thigh with excision redundant skin and subcutaneous tissue with radical dermolipectomy. He went to [facility] for almost a month, he had a wound VAC while he was at [facility] Arterial studies done on 03/23/23 which have triphasic Doppler waveforms are noted at ankle level bilaterally. Pulse-volume recordings appear satisfactory at calf, ankle, and digital levels bilaterally. Right EDDY= 1.27, Left EDDY= 1.28 There is no evidence of significant arterial occlusive disease in the lower extremities bilaterally. Vascular studies done on 03/23/23 show sapheno-femoral junctions are bilaterally incompetent . Acute and chronic superficial thrombophlebitis is noted in the right great saphenous vein above the knee. Chronic venous changes are noted in the left great saphenous vein above the knee. The right great saphenous vein appears incompetent below the knee. The left great saphenous vein appears segmentally incompetent. Small saphenous veins are patent and incompetent bilaterally. Accessory saphenous veins in the right proximal and mid-calf are incompetent. Accessory saphenous veins at the left knee, proximal calf, and mid-calf are incompetent. An incompetent facility maintenance supervisor vein is noted in the right calf, located 10 centimeters proximal to the right medial malleolus. An incompetent facility maintenance supervisor vein is noted in the left calf, located 12 centimeters proximal to the left medial malleolus. Biopsy done by me (Dr. Freed) 08/05/24 of right medial thigh ulcer showed Ulceration with acute and chronic inflammation and adherent fibrinoid material. Negative for fungal organisms. No signs of malignancy. Subjective Subjective Doing well today. Reports that he is healed Objective Data Objective Data Vital Signs: Vital Signs Temp Pulse Resp O2 Del Method 97.8 F 56 L 18 Room Air 02/10/25 13:51 02/10/25 13:51 02/10/25 13:51 02/10/25 13:51 Oxygen Delivery Method Room Air Charges/Coding Visit Charges Office Visits / Consults: [id number] OV L3 Est 20min Physical Exam Narrative Left medial thigh wound: Healed Right medial thigh wound: Healed Tight scar in the medial thighs Debridement Note Debridement Note Post-Debridement Measurements and Additional Note: Post-Debridement Measurements/Treatment - Nurse 1 - General Ulcer Assessment Start: 02/10/25 13:51 Freq: Status: Active Protocol: WILLIAM Activity Type Activity Date Activity User E-sign Co-sign Detail Recorded Client Recorded Date Recorded By Document 02/10/25 13:51 [email or web address] [id number] 02/10/25 13:59 02/10/25 13:51 WC - Today's Visit Information Type of service 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 Any new allergies or adverse reactions No Had a fall/change in ADL's that may No increase risk of falls Signs or symptoms of abuse and/or No neglect since last visit Have you been in the hospital since your No last visit? Has dressing in place as prescribed No Has compression in place as prescribed Yes Has offloadiing in place as prescribed N/A Experienced any changes in pain level or No management Left Footwear Regular Shoe Right Footwear Regular Shoe Pain Scale: 0-10 Numeric Is Patient Pain Free? Yes - Nurse 1 - General Ulcer Measurement Start: 02/10/25 13:51 Freq: Status: Active Protocol: Activity Type Activity Date Activity User E-sign Co-sign Detail Recorded Client Recorded Date Recorded By Document 02/10/25 13:51 KW [id number] 02/10/25 13:59 02/10/25 13:51 Wound Center Nurse 1 #11 LEFT MEDIAL THIGH -Texture (Josephine-wound Skin Appearance) Assessed -Moisture (Josephine-wound Skin Appearance) Assessed -Color (Josephine-wound Skin Appearance) Assessed 10. R medial thigh -Texture (Josephine-wound Skin Appearance) Assessed -Moisture (Josephine-wound Skin Appearance) Assessed -Color (Josephine-wound Skin Appearance) Assessed WC - Nurse 2 - General Ulcer CM Notes Start: 02/10/25 13:51 Freq: Status: Active Protocol: Activity Type Activity Date Activity User E-sign Co-sign Detail Recorded Client Recorded Date Recorded By Document 02/10/25 14:41 [id number] 02/10/25 14:42 02/10/25 14:41 Wound Center Nurse 2 #11 LEFT MEDIAL THIGH -Correct Patient Yes -Correct Side, Site, Position No -Correct Procedure No -Procedure Performed No -Wound/Ulcer Outcome Healed- Epithelialized 10. R medial thigh -Correct Patient Yes -Correct Side, Site, Position No -Correct Procedure No -Procedure Performed No -Wound/Ulcer Outcome Healed- Epithelialized Pain Scale: 0-10 Numeric Is Patient Pain Free? Yes - Nurse 3 - General Ulcer D/C NN Start: 02/10/25 13:51 Freq: Status: Active Protocol: Activity Type Activity Date Activity User E-sign Co-sign Detail Recorded Client Recorded Date Recorded By Document 02/10/25 14:42 [id number] 02/10/25 14:42 02/10/25 14:42 Is Patient Pain Free? Yes WC - Visit Discharge Discharge Condition Stable Ambulatory Status Ambulatory Transportation Private Auto Medication Reconcilliation completed & Yes provided to patient/care provider Clinical Summary of Care Provided Yes Assessment/Plan Assessment/Plan (1) Nonhealing ulcer of right lower extremity with fat layer exposed: CODE(S): L97.912 - Non-pressure chronic ulcer of unspecified part of right lower leg with fat layer exposed (2) Edema of both lower extremities: CODE(S): R60.0 - Localized edema (3) Chronic acquired lymphedema: CODE(S): I89.0 - Lymphedema, not elsewhere classified PLAN: Secondary to obesity (4) Morbid obesity: CODE(S): E66.01 - Morbid (severe) obesity due to excess calories (5) History of bariatric surgery: CODE(S): Z98.84 - Bariatric surgery status PLAN: Plan Discussed body contouring after massive weight loss surgery Discussed keeping weight stable for 6 months before body contouring procedures Patient is healed and will follow-up as needed Patient happy with the plan
== END 2025-03-10 23:59 | disposition home or self-care (01) ==
LOC: WC 13:47
PROVIDERS: PCP Nurse Practitioner Family; Referring Provider Surgery Plastic and Reconstructive Surgery; Visit Provider Surgery Plastic and Reconstructive Surgery
DX: Z09 Encounter for follow-up examination after completed treatment for conditions other than malignant neoplasm (principal); E66.01 Morbid (severe) obesity due to excess calories; Z98.84 Bariatric surgery status; I89.0 Lymphedema, not elsewhere classified; R60.0 Localized edema
CPT/HCPCS: 99213; G0463

== ENCOUNTER → 2025-07-02 | Outpatient (CLI) | payer MEDICAID, SELFPAY ==
[2025-07-02 11:24] LABS: Hematocrit 37.3 % (40-54); Hemoglobin 13.0 g/dL (13.0-16.5); Immature Granulocytes Count 0.030 X10^3/uL (0.0-0.0); Mean Corp Hgb Conc 34.9 g/dL (32-36); Mean Corpuscular Volume 75.8 fL (80-94); Mean Platelet Vol. 9.1 fl (6.2-12.0); NRBC Flagged by Analyzer 0 % (0-5); Platelet Count 218 K/mm3 (150-450); RBC Distribution Width CV 15.9 % (11.6-14.6); RBC Distribution Width SD 43.3 fl (35.1-43.9); Red Blood Count 4.92 M/mm3 (4.6-6.2); White Blood Count 7.3 K/mm3 (4.4-11.0)
[2025-07-02 12:11] LABS: AST(SGOT) 25 U/L (<=37); Alanine Aminotransfer ALT/SGPT 31 U/L (<=46); Albumin, Serum 4.0 g/dL (3.5-5.0); Alkaline Phosphatase 86 U/L (40-129); Anion Gap 10 (5-15); BUN 16 mg/dL (4-19); BUN/Creat Ratio 18.2 RATIO (10-20); Calcium,Total 9.5 mg/dL (7.6-11.0); Carbon Dioxide 26.1 mmol/L (21.0-32.0); Chloride 101 mmol/L (98-108); Cholesterol 175 mg/dL (<=200); Globulin 3.1 g/dL (2.2-4.2); Glucose 100 mg/dL (70-99); Low Density Lipoprotein Calc. 116 mg/dL; Potassium 4.0 mmol/L (3.3-5.1); Triglycerides 145 mg/dL; Very Low Density Lipoprotein 29 mg/dL (5-40); Vitamin B12 727 pg/mL (180-914); cholesterol:hdl ratio screen 5.35
[2025-07-04 13:08] LABS: Vitamin D 1,25-Dihydroxy 26.4 pg/mL (24.8-81.5)
== END | disposition home or self-care (01) ==
LOC: VSLAB 10:55
PROVIDERS: PCP Nurse Practitioner Family; Visit Provider Nurse Practitioner Family
DX: I10 Essential (primary) hypertension (principal); E53.8 Deficiency of other specified B group vitamins
CPT/HCPCS: 36415; 80053; 80061; 82607; 82652; 84443; 85025

== ENCOUNTER 2025-07-18 10:58 | Emergency (ER) | payer MEDICAID, SELFPAY ==
[2025-07-18] VITALS (8 sets, daily range): BP systolic 129–161; BP diastolic 85–95; PULSE 59–79; RESP 16–24; TEMP 36.1–36.8; O2SAT 96–99; BMI 49.5
--- NOTE | 2025-07-18 11:39 | EKG12_ITS ---
Test Reason : CP
[2025-07-18 11:51] LABS: Hematocrit 35.5 % (40-54); Hemoglobin 12.3 g/dL (13.0-16.5); Immature Granulocytes Count 0.090 X10^3/uL (0.0-0.0); Mean Corp Hgb Conc 34.6 g/dL (32-36); Mean Corpuscular Volume 76.2 fL (80-94); Mean Platelet Vol. 9.4 fl (6.2-12.0); NRBC Flagged by Analyzer 0 % (0-5); Platelet Count 244 K/mm3 (150-450); RBC Distribution Width CV 16.8 % (11.6-14.6); RBC Distribution Width SD 45.6 fl (35.1-43.9); Red Blood Count 4.66 M/mm3 (4.6-6.2); White Blood Count 5.6 K/mm3 (4.4-11.0)
--- NOTE | 2025-07-18 12:00 | RAD_ITS ---
PROCEDURE: RAD/Chest 1 View (Portable)
[2025-07-18 12:03] LABS: D-Dimer Quantitative (DVT/PE) 0.61 FEU/ug/m (0.27-0.49)
--- NOTE | 2025-07-18 12:23 | ED.VIS.CHEST ---
HPI History of Present Illness Chief Complaint: Chest Pain Informant: patient and spouse/S.O. Narrative Narrative: 50-year-old male presenting to the emergency room for the evaluation of chest pain. Patient states for the past week he has had a intermittent sharp pressure in the anterior chest. He states today it feels more like a 20 pound weight. He states that he typically does upper body weights. He has had a prior gastric sleeve. He carries a history of obstructive sleep apnea lymphedema emphysema/COPD and CHF. He has not seen cardiology recently per him. No reported fevers. No prior history of DVT PE. He denies any radiation of the discomfort. He denies any dyspnea or sweating. [facility] Medical History Former smoker Congestive heart failure (CHF) Cystitis Cellulitis of right thigh Hypoxemia Venous (peripheral) insufficiency Erectile dysfunction CRISTINO (obstructive sleep apnea) Ventral hernia Edema of both lower extremities Excessive body weight loss Excessive and redundant skin and subcutaneous tissue Intertrigo Abdominal panniculus Morbid obesity Hemangioma of skin and subcutaneous tissue 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 Dyspnea on exertion Hyperlipidemia Incomplete right bundle branch block Chronic acquired lymphedema Nonhealing ulcer of left lower extremity with fat layer exposed Pulmonary embolism Chronic diastolic heart failure Emphysema of lung Peripheral vascular disease Obstructive sleep apnea Osteoarthritis Anxiety and depression Essential (primary) hypertension Home Medications ?Medication ?Instructions ?Recorded ?Last Taken ?Type acetaminophen 325 mg tablet 650 mg (2 x 325 mg) PO Q6H PRN PRN 06/04/19 10/04/22 Rx Non-cardiac pain (mod-severe) multivitamin,[id number] 1 tab PO DAILY 04/29/20 10/04/22 History (Complete Multivitamin tablet) lisinopril 10 mg tablet 10 mg PO DAILY blood pressure #90 08/23/21 10/04/22 Rx Held on 04/15/24. tabs Instructions: Hold lisinopril for 1 week while patient is on Bactrim DS. atorvastatin 40 mg tablet 40 mg PO QHS cholesterol lowering 01/27/23 Unknown Rx #90 tabs furosemide 40 mg tablet See Rx Instructions .Route 04/04/23 Unknown Rx .COMPLEX #90 tabs omeprazole 20 mg capsule,delayed See Rx Instructions .Route 04/04/23 Unknown Rx release .COMPLEX #90 caps ergocalciferol (vitamin D2) 1,250 1,250 mcg PO QWEEK 08/22/24 Unknown History mcg (50,000 unit) capsule calcium carbonate (Adonis-Mint) 260 mg PO QDAY 12/30/24 Unknown History cariprazine 1.5 mg capsule 1.5 mg PO Q OTHER DAY 12/30/24 Unknown History (Vraylar) cholecalciferol (vitamin D3) 50 50 mcg PO QDAY 12/30/24 Unknown History mcg (2,000 unit) capsule cyanocobalamin (vitamin B-12) 1,000 mcg IM QMONTH 12/30/24 Unknown History 1,000 mcg/mL injection solution quetiapine 50 mg tablet 50 mg PO QHS 12/30/24 Unknown History Allergy/AdvReac Type Severity Reaction Status Date / Time Penicillins Allergy Rxn as Verified 01/29/25 13:19 child, unknown Family History Father Myocardial infarction Hypertension Heart disease Arthritis Cancer Leukemia Surgical History History of excision of mass History of bariatric surgery History of tonsillectomy History of open reduction and internal fixation (ORIF) procedure History of corrected cleft lip and palate Social History Smoking Status: Former smoker how long ago did patient quit smokin years ago alcohol intake: never substance use type: does not use caffeine: No ROS ROS ED Constitutional Constitutional ED: Denies chills, fever(s) or weight loss Eyes Eyes: Denies change in vision or diplopia ENT ENT ED: Denies ear pain, rhinorrhea or sore throat Cardiovascular Cardiovascular: Reports as per HPI and chest pain; Denies orthopnea, palpitations or racing heartbeat Respiratory/Chest Respiratory/Chest: Denies cough, dyspnea or orthopnea Gastrointestinal Gastrointestinal: Denies abdominal pain, diarrhea, nausea or vomiting Genitourinary Genitourinary ED: Denies dysuria, hematuria or urinary frequency Musculoskeletal Musculoskeletal: Denies arthralgias or myalgias Integumentary Denies abscess or rash Neurologic Neurologic: Denies headache(s) or weakness Psychiatric Psychiatric: Denies anxiety, depression, suicidal ideation or suicidal thoughts Endocrine Endocrinology: Denies polydipsia, polyphagia or polyuria Allergic/Immunologic Allergic/Immunologic ED: Denies mouth swelling, tongue swelling or urticaria EXAM Physical Exam Const Vital Signs: 07/18/25 10:59 07/18/25 11:19 07/18/25 11:39 Temperature 97.0 F L Temperature Source Temporal Pulse Rate 66 Respiratory Rate 16 Respiratory Effort Normal Respiratory Pattern Normal Blood Pressure 161/95 H Blood Pressure Mean 117 Pulse Ox 99 Oxygen Delivery Method Room Air Room Air 07/18/25 11:50 07/18/25 12:00 07/18/25 12:15 Temperature Temperature Source Pulse Rate 60 61 79 Respiratory Rate 21 H 21 H 24 H Respiratory Effort Respiratory Pattern Blood Pressure 132/85 H Blood Pressure Mean 100 Pulse Ox 98 96 Oxygen Delivery Method Room Air 07/18/25 12:30 07/18/25 12:45 07/18/25 13:00 Temperature Temperature Source Pulse Rate 61 62 59 L Respiratory Rate 24 H 19 H 17 Respiratory Effort Respiratory Pattern Blood Pressure 138/88 H 133/88 H 129/86 H Blood Pressure Mean 103 101 99 Pulse Ox 98 97 97 Oxygen Delivery Method 07/18/25 14:26 Temperature 98.2 F Temperature Source Pulse Rate 60 Respiratory Rate 20 H Respiratory Effort Respiratory Pattern Blood Pressure 138/89 H Blood Pressure Mean 105 Pulse Ox 99 Oxygen Delivery Method Positive well nourished, well developed and obese General Appearance ED: well developed and NAD Nutritional Appearance: obese HEENT Reports normocephalic, head/scalp atraumatic and moist mucous membranes Eyes PERRL and EOMs intact bilaterally Neck no lymphadenopathy, supple and no JVD Chest Wall Chest Narrative: Anterior chest wall is mildly tender to palpation around the cartilaginous portion near the sternum Resp normal respiratory effort and clear to auscultation bilaterally Cardio regular rate, regular rhythm and no murmurs GI normal to inspection, nondistended, normoactive bowel sounds and non-tender Palpation: soft Back/Spine no CVA tenderness and normal ROM Extremity normal to inspection General Extremety ED: Negative for edema General Extremity: Negative for edema Neuro oriented x3 and CN's II-XII intact bilaterally Sensorium / Orientation: alert Motor Exam: strength 5/5 throughout Psych mental status grossly normal Mood & Affect: Negative for depressed or tearful Skin no rashes or lesions noted and no wounds MDM MDM MDM Narrative Medical decision making narrative: Differential diagnosis includes acute coronary syndrome pulmonary embolism aortic dissection/aneurysm pericarditis myocarditis GERD costochondritis muscle strain Basic blood work was obtained was negative except for elevated D-dimer. Delta troponin is negative proBNP 59. CT of the chest is negative for pulmonary embolism dissection or aneurysm. Patient states his symptoms went away. At this point I think the patient could be discharged home. I have low suspicion for cardiac etiology. I would recommend following up with PCP if persistent symptoms or return for evaluation History & Record Review Discussion w/independent historian: Patient and Significant other Additional record(s) reviewed:: Prior ED visit Lab Data Attestation: I reviewed the patient's lab results. Labs: Laboratory Results - last 24 hr 07/18/25 07/18/25 11:15 13:33 WBC 5.6 RBC 4.66 Hgb 12.3 L Hct 35.5 L MCV 76.2 L MCH 26.4 L MCHC 34.6 RDW Std Deviation 45.6 H RDW Coeff of Alee 16.8 H Plt Count 244 MPV 9.4 Immature Gran % (Auto) 1.600 H Neut % (Auto) 68.2 Lymph % (Auto) 19.4 Starke % (Auto) 8.1 Eos % (Auto) 2.3 Baso % (Auto) 0.4 Absolute Neuts (auto) 3.8 Absolute Lymphs (auto) 1.08 Nucleated RBC % 0 D-Dimer Quant (PE/DVT) 0.61 H* Sodium 140 Potassium 4.0 Chloride 104 Carbon Dioxide 26.6 Anion Gap 9 BUN 20 H Creatinine 0.94 Estim Creat Clear Calc 174.37 Est GFR (MDRD) Non-Af 98 BUN/Creatinine Ratio 21.6 H Glucose 97 Calcium 8.7 Troponin T High Sens 10 Troponin T Hi Sens 2 Hr 9 NT pro BNP II 59 Radiography Diagnostic Testing: Clinical Impression(s) from Imaging Studies Chest X-Ray 07/18/25 12:00 IMPRESSION: Cardiac enlargement, central congestion Reading Location: [id number] Chest CTA 07/18/25 13:00 IMPRESSION: No evidence of pulmonary embolism. No acute abnormality is seen. Reading Location: [id number] EKG Initial EKG: Attestation: I personally reviewed and interpreted this EKG as follows: Comments: Sinus rhythm with a first-degree AV block incomplete right bundle branch block which is known ventricular rate of 62 bpm Discharge Plan Triage Chief Complaint: Chest Pain ED Provider: Ash Melo Dx/Rx/DC Orders Clinical Impression: Chest pain Instructions: ED Chest Pain, Uncertain Cause Prescriptions: No Action Complete Multivitamin Tablet 1 tab PO DAILY atorvastatin 40 mg tablet 40 mg PO QHS Qty: 90 1RF ergocalciferol (vitamin D2) 1,250 mcg (50,000 unit) capsule 1,250 mcg PO QWEEK cyanocobalamin (vitamin B-12) 1,000 mcg/mL solution 1,000 mcg IM QMONTH calcium carbonate [Adonis-Mint] 260 mg calcium (650 mg) tablet,chewable 260 mg PO QDAY quetiapine 50 mg tablet 50 mg PO QHS cholecalciferol (vitamin D3) 50 mcg (2,000 unit) capsule 50 mcg PO QDAY Vraylar 1.5 mg capsule 1.5 mg PO Q OTHER DAY acetaminophen 325 MG tablet 650 mg PO Q6H PRN PRN (Reason: Non-cardiac pain (mod-severe)) 0RF lisinopril 10 mg tablet 10 mg PO DAILY Qty: 90 3RF furosemide 40 mg tablet See Rx Instructions .ROUTE .COMPLEX Qty: 90 0RF Dose Instruction: take 1 tablet by mouth once daily Rx Instructions: take 1 tablet by mouth once daily omeprazole 20 mg capsule,delayed release(DR/EC) See Rx Instructions .ROUTE .COMPLEX Qty: 90 0RF Dose Instruction: take 1 capsule by mouth once daily Rx Instructions: take 1 capsule by mouth once daily Primary Care Provider: Cale Magana Referrals: Cale Magana, [facility] [Primary Care Provider, Family Practice] - As Needed Print Language: [place] Disposition Disposition: Home, Self Care Discharge Date/Time: 07/18/25 14:35
[2025-07-18 12:47] LABS: Troponin T High Sensitivity 10 ng/L (<=22)
[2025-07-18 12:50] LABS: Anion Gap 9 (5-15); BUN 20 mg/dL (4-19); BUN/Creat Ratio 21.6 RATIO (10-20); Calcium,Total 8.7 mg/dL (7.6-11.0); Carbon Dioxide 26.6 mmol/L (21.0-32.0); Chloride 104 mmol/L (98-108); Estimated Creatinine Clearance 174.37 ml/min (50-250); Glucose 97 mg/dL (70-99); Potassium 4.0 mmol/L (3.3-5.1); Pro- Brain NATRIURETIC PEPTIDE 59 pg/mL (<=900)
--- NOTE | 2025-07-18 13:00 | CT_ITS ---
PROCEDURE: CT/CTA Chest W/WO Contrast
[2025-07-18 14:03] LABS: Troponin T High Sens 2 HR 9 ng/L (<=22)
== END 2025-07-18 14:35 | disposition home or self-care (01) ==
PROVIDERS: Emergency Provider Emergency Medicine; PCP Nurse Practitioner Family; Visit Provider Emergency Medicine
DX: R07.89 Other chest pain (principal); I11.0 Hypertensive heart disease with heart failure; I50.32 Chronic diastolic (congestive) heart failure; Z79.899 Other long term (current) drug therapy; Z87.891 Personal history of nicotine dependence
CPT/HCPCS: 71045; 71275; 80048; 83880; 84484; 85025; 85379; 93005; 99284; Q9967; A4216